=== PATIENT | female | born 1990 | race Caucasian/White ===

== ENCOUNTER 2018-08-11 09:21 | Emergency (ER) | payer OTHER ==
--- OUTSIDE RECORDS SUMMARY | 2018-08-11 09:24 | XMS REPORT | Clinical Summary ---
:1990 Author Organization [facility] Address [address] [place] [address] Care Team Providers Name Role Phone Unavailable Primary Care Provider Unavailable Allergies No Known Allergies Medications Medication Sig Dispensed Refills Start Date End Date Status riboflavin, vitamin B2, Take 400 mg by 30 tablet 0 01/11/2017 Active 400 mg Tab mouth daily. SUMAtriptan (IMITREX) Take 1 tablet (50 9 tablet 0 01/11/2017 Active 50 MG tablet mg total) by mouth every 2 (two) hours as needed (migraine) Do not exceed 200mg in 24 hours.. Active Problems Problem Noted Date Left sided numbness 01/09/2017 Headache(784.0) 01/09/2017 Von Willebrand disease 01/09/2017 Family History Medical History Relation Name Comments Diabetes Mother Hypertension Mother Relation Name Status Comments Mother Social History Tobacco Use Types Packs/Day Years Used Date Current Some Day Smoker 10 Smokeless Tobacco: Current User Snuff Tobacco Cessation: Ready to Quit: Yes; Counseling Given: Yes Alcohol Use Drinks/Week oz/Week Comments No Sex Assigned at Date Recorded Not on file Job Start Date Occupation Industry Not on file Not on file Not on file Travel History Travel Start Travel End No recent travel history available. Last Filed Vital Signs Not on file Plan of Treatment Not on file Results Not on fileafter 08/10/2017 Insurance Payer Benefit Plan / Subscriber ID Type Phone Address Group MEDICAID - MEDICAID MEDICAID COMM xxxxxxxxx Medicaid Contracted [facility] CHO[facility] Advance Directives For more information, please contact:[facility] [id number] [place] [address] [phone] Code Status Date Activated Date Inactivated Comments Full Code 01/09/2017 11:25 PM 01/11/2017 1:21 PM This code status was determined by: Patient
--- OUTSIDE RECORDS SUMMARY | 2018-08-11 09:24 | XMS REPORT ---
:1990 [facility] Address [address] [place] [address] Care Team Providers Name Role Phone ERASMO PENA Unavailable Unavailable Problems This patient has no known problems. Allergies, Adverse Reactions, Alerts This patient has no known allergies or adverse reactions. Medications This patient has no known medications. Results Test Description Test Time Test Comments Text Results Atomic Results Result Comments SCREEN, URINE 2017-01-10 20:01:00 Test Item Value Reference Range Comments TEST URINE (BEAKER) (test xshn=837) Negative [id number] 11:54:00 Test Item Value Reference Range Comments RPR SCREEN (BEAKER) (test ulcg=235) Nonreactive Nonreactive HEMOGLOBIN [id number] 10:47:00 Test Item Value Reference Range Comments HEMOGLOBIN A1C (BEAKER) (test gxvn=280) 5.2 % 4.3-6.1 TSH/FREE T4 IF [id number] 06:03:00 Test Item Value Reference Range Comments THYROID STIMULATING HORMONE (BEAKER) (test 0.97 uIU/mL 0.35-4.94 qzvm=396) VITAMIN B12 AND [id number] 06:03:00 Test Item Value Reference Range Comments VITAMIN B12 (BEAKER) (test rtxg=424) 384 pg/mL 213-816 FOLATE (BEAKER) (test cmyl=167) 11.5 ng/mL >=7.0 Effective 07/13/2014: Folate Reference Range ChangeNew: >=7.0 Previous: & gt;=5.4HIV-1 ANTIGEN WITH HIV-1/2 [id number] 05:29:00 Test Item Value Reference Range Comments HIV-1 ANTIGEN WITH HIV 1\T\2 ANTIBODY (2) Nonreactive Nonreactive (BEAKER) (test cfyy=4687) [id number] 05:18:00 Test Item Value Reference Range Comments D-DIMER QUANTITATIVE (BEAKER) (test wzbo=805) < MG/L FEU <0.50 Intended Use: The D-Dimer Assay can be used to aid in the diagnosis of Deep Vein Thrombosis (DVT) and Pulmonary Embolism Disease (PED).In patients with low pre-test probability, various studies concerning STA Liatest D-dimer test have reported that with a cutoff value of 0.50 MG/L FEU, the Negative Predictive Value (NPV) regarding the exclusion of thrombosis is within 95-100% range.[id number] 05:18:00 Test Item Value Reference Range Comments MAGNESIUM (BEAKER) (test vkjo=702) 2.1 mg/dL 1.6-2.6 LIPID [id number] 05:18:00 Test Item Value Reference Range Comments TRIGLYCERIDES (BEAKER) (test lzoz=888) 128 mg/dL CHOLESTEROL (BEAKER) (test pezr=753) 159 mg/dL HDL CHOLESTEROL (BEAKER) (test fuun=050) 29 mg/dL LDL CHOLESTEROL CALCULATED (BEAKER) (test 104 mg/dL pxrb=492) Triglyceride Reference Range: Low Risk <150 Borderline 150- 199 High Risk 200-499 Very High Risk >=500Cholesterol Reference Range: Low Risk <200 Borderline 200-239 High Risk > 240HDL Cholesterol Reference Range: Low Risk >=60 High Risk <40LDL Cholesterol Reference Range: Optimal <100 Near Optimal 100-129 Borderline 130-159 High 160-189 Very High >=190BASIC METABOLIC [id number] 05:18:00 Test Item Value Reference Range Comments SODIUM (BEAKER) (test 139 meq/L 136-145 jnxj=493) POTASSIUM (BEAKER) (test 3.5 meq/L 3.5-5.1 zjge=260) CHLORIDE (BEAKER) (test 109 meq/L 98-107 upul=001) CO2 (BEAKER) (test 23 meq/L 22-29 rcki=832) BLOOD UREA NITROGEN 13 mg/dL 7-21 (BEAKER) (test adpt=766) CREATININE (BEAKER) (test 0.66 mg/dL 0.57-1.25 rfaj=905) GLUCOSE RANDOM (BEAKER) 94 mg/dL 70-105 (test zjfq=687) CALCIUM (BEAKER) (test 8.3 mg/dL 8.4-10.2 vovn=192) EGFR (BEAKER) (test 109 mL/min/1.73 sq m ESTIMATED GFR IS NOT hjuv=0695) ACCURATE CREATININE CLEARANCE IN PREDICTING GLOMERULAR FILTRATION RATE. ESTIMATED GFR IS NOT APPLICABLE FOR DIALYSIS PATIENTS. CBC W/PLT COUNT & AUTO [id number] 05:09:00 Test Item Value Reference Range Comments WHITE BLOOD CELL COUNT (BEAKER) (test moyi=944) 9.8 K/ L 4.0-10.0 RED BLOOD CELL COUNT (BEAKER) (test suac=021) 4.39 M/ L 4.00-5.00 HEMOGLOBIN (BEAKER) (test wogl=041) 13.0 GM/DL 12.0-15.0 HEMATOCRIT (BEAKER) (test mbzy=281) 39.9 % 36.0-45.0 MEAN CORPUSCULAR VOLUME (BEAKER) (test aolb=986) 91.0 fL 82.0-99.0 MEAN CORPUSCULAR HEMOGLOBIN (BEAKER) (test 29.7 pg 27.0-33.0 ujvv=122) MEAN CORPUSCULAR HEMOGLOBIN CONC (BEAKER) (test 32.6 GM/DL 32.0-36.0 geip=144) RED CELL DISTRIBUTION WIDTH (BEAKER) (test 13.0 % 10.3-14.2 khwr=371) PLATELET COUNT (BEAKER) (test ylpj=669) 207 K/CU MM 150-430 MEAN PLATELET VOLUME (BEAKER) (test lzkk=455) 9.1 fL 6.5-10.5 NUCLEATED RED BLOOD CELLS (BEAKER) (test 0 /100 WBC 0-0 bpfp=059) NEUTROPHILS RELATIVE PERCENT (BEAKER) (test 60 % uziq=743) LYMPHOCYTES RELATIVE PERCENT (BEAKER) (test 29 % gjbn=338) MONOCYTES RELATIVE PERCENT (BEAKER) (test 8 % ryap=896) EOSINOPHILS RELATIVE PERCENT (BEAKER) (test 2 % ddqv=992) BASOPHILS RELATIVE PERCENT (BEAKER) (test 0 % cvbw=104) NEUTROPHILS ABSOLUTE COUNT (BEAKER) (test 5.88 K/ L 1.80-8.00 hmcy=197) LYMPHOCYTES ABSOLUTE COUNT (BEAKER) (test 2.89 K/ L 1.48-4.50 eyvs=443) MONOCYTES ABSOLUTE COUNT (BEAKER) (test 0.80 K/ L 0.00-1.30 hcyv=683) EOSINOPHILS ABSOLUTE COUNT (BEAKER) (test 0.20 K/ L 0.00-0.50 zfyn=860) BASOPHILS ABSOLUTE COUNT (BEAKER) (test 0.05 K/ L 0.00-0.20 sctj=019) 0.00
[2018-08-11] MEDS ORDERED: NA CHLORIDE 0.9% 1,000 ML ONE (10:15)
[2018-08-11 10:28] LABS: Urine Appearance TURBID; Urine Blood 3+ (NEG); Urine Color RED; Urine Glucose NEGATIVE (NEG); Urine Protein 3+ (NEG); Urine Specific Gravity >=1.030 (1.005-1.030)
[2018-08-11 10:30] LABS: Specific Gravity > 1.030 (1.005-1.030)
[2018-08-11] MEDS ORDERED: ONDANSETRON 4 MG/2 ML VIAL ONE (10:36)
[2018-08-11 10:39] LABS: Urine Bilirubin NEGATIVE (NEG); Urine Microscopic Reflex ORDER UMIC
[2018-08-11 10:42] LABS: Absolute Monocytes 0.5 K/uL (0.1-1.3); Absolute Neutrophil 4.9 K/uL (1.8-8.0); Basophils % 0.6 % (0-1.3); Eosinophils % 1.5 % (0-4.4); Hematocrit 42.4 % (36.0-45.0); Lymphocytes % 26.6 % (15.3-44.8); MCH 30.8 pg (27.0-35.0); MCV 89.9 fL (80-100); MPV 10.5 fL (7.6-11.3); Monocytes % 7.1 % (3.3-12.3); RBC Red Blood Cell Count 4.72 M/uL (3.86-4.86)
[2018-08-11 10:45] LABS: Urine Bacteria 20-50 /HPF (<20); Urine Culture Reflex Order REFLEXED; Urine RBC TNTC /HPF (NONE SEEN)
[2018-08-11 10:58] LABS: BUN Blood Urea Nitrogen 11 mg/dL (7-18); Bicarbonate 25 mmol/L (21-32); Glucose Level 105 mg/dL (74-106); Potassium 3.3 mmol/L (3.5-5.1); Sodium Level 139 mmol/L (136-145)
[2018-08-11 10:59] LABS: HCG, Quantitative < 1 mIU/mL (1-3)
[2018-08-11] MEDS ORDERED: CEFTRIAXONE/SWI 1gm 1 GM/10 ML SYR ONE (11:26)
[2018-08-11] MEDS ORDERED: MORPHINE 4 MG/ML SYR ONE (11:26)
--- NOTE | 2018-08-11 11:32 | RAD REPORT ---
EXAM DESCRIPTION: US - Transvaginal Study Probe - 08/11/2018 10:51 am CLINICAL HISTORY: Abdominal pain, pelvic pain, vaginal bleeding, right lower quadrant pain COMPARISON: None. TECHNIQUE: Endovaginal sonography was performed. FINDINGS: Endometrium is 3 mm in thickness. Endometrium-myometrium interface is normal. No endometri al mass, polyp or suspicious finding noted. There are no myometrial masses. Uterus is 7.7 x 4.5 x 5.3 cm. Both ovaries are identifiable and normal in size. Doppler evaluation shows normal ovarian stroma blood flow. No dominant solid or cystic ovarian or adnexal finding. No blood or fluid in the cul de sac. IMPRESSION: Negative endovaginal pelvic ultrasound.
[2018-08-11] MEDS ORDERED: POTASSIUM 25 MEQ EFFERV TAB ONE (11:45)
--- NOTE | 2018-08-11 11:55 | RAD REPORT ---
EXAM DESCRIPTION: CT - Abdomen Pelvis W Contrast - 08/11/2018 11:42 am CLINICAL HISTORY: Right lower quadrant pain, nausea and vomiting, vaginal bleeding history, prior to nsillectomy and appendectomy COMPARISON: None. TECHNIQUE: Biphasic, helical CT imaging of the abdomen and pelvis was performed following 100 ml non -ionic IV contrast. No oral contrast. All CT scans are performed using dose optimization technique as appropriate and may include automated exposure control or mA/KV adjustment according to patient size. FINDINGS: No suspicious findings in the lung bases. The liver, spleen, and pancreas show no suspicious findings. Gallbladder and biliary tree are also wi thout suspicious finding. Symmetric renal function is seen with no hydronephrosis or suspicious renal mass. No pyelonephritis o r acute parenchymal process. No bladder abnormalities. No adrenal abnormalities. No dilated bowel loops or bowel wall thickening. No free air, free fluid or inflammatory stranding. No hernia, mass or bulky lymphadenopathy. Uterus and ovaries show no suspicious findings. No suspicious bony findings. IMPRESSION: Contrast enhanced CT abdomen and pelvis showing no significant or suspicious finding.
--- NOTE | 2018-08-11 12:38 | ER ---
Nurse's Notes [facility] Department Name: Lauren Polanco Age: 28 yrs Sex: Female : 1990 Arrival Date: 08/11/2018 Time: 09:24 Bed 2 Private MD: Diagnosis: Pelvic and perineal pain;Dysmenorrhea, unspecified;Hypokalemia;Cystitis Presentation: 08/11 09:34 Presenting complaint: Presenting complaint: Patient states: vaginal bleeding that began aa5 Saturday and RLQ pain. Pt also reports nausea and vomiting. Transition of care: patient was not received from another setting of care. Onset of symptoms was July 2018. Risk Assessment: Do you want to hurt yourself or someone else? Patient reports no desire to harm self or others. Initial Sepsis Screen: Does the patient meet any 2 criteria? No. Patient's initial sepsis screen is negative. Does the patient have a suspected source of infection? No. Patient's initial sepsis screen is negative. Care prior to arrival: None. 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 - Social history:: Smoking status: Patient uses tobacco products, denies chronic smoking, but will smoke occasionally. - Ebola Screening: : No symptoms or risks identified at this time. - Family history:: not pertinent. Screenin:15 Abuse screen: Denies threats or abuse. Denies injuries from another. Nutritional sg screening: No deficits noted. Tuberculosis screening: No symptoms or risk factors identified. Never had TB. Fall Risk None identified. Assessment: 10:15 General: Appears in no apparent distress. ill, well groomed, well developed, well sg nourished, Behavior is calm, cooperative, appropriate for age. Pain: Complains of pain in right mid back and right low back Quality of pain is described as burning, sharp, stabbing. Neuro: No deficits noted. Cardiovascular: Capillary refill is brisk in bilateral fingers Patient's skin is warm and dry. Chest pain is denied. Respiratory: Airway is patent Respiratory effort is even, unlabored, Respiratory pattern is regular, symmetrical. GI: Abdomen is round non-distended, Reports nausea, vomiting. : Reports pain in right flank(s), in lower back vaginal bleeding that is bright red, moderate flow. :. EENT: No signs and/or symptoms were reported regarding the EENT system. Derm: Skin is pink, warm \T\ dry. Musculoskeletal: No signs and/or symptoms reported regarding the musculoskeletal system. Vital Signs: 09:35 BP 122 / 82; Pulse 66; Resp 18 S; Temp 98.8(O); Pulse Ox 100% on R/A; Weight 77.11 kg aa5 (R); Height 5 ft. 1 in. (154.94 cm) (R); Pain 7/10; 11:33 BP 114 / 72; Pulse 57; Resp 16; Temp 98.8; Pulse Ox 100% ; lt1 09:35 Body Mass Index 32.12 (77.11 kg, 154.94 cm) aa5 ED Course: 09:24 Patient arrived in ED. mr 09:34 Arm band placed on. aa5 09:35 Triage completed. aa5 09:53 Iqra Thomas, ZOË is Primary Nurse. jl7 09:56 Abelardo Conrad MD is Attending Physician. tom 10:15 Missed attempt(s): 20 gauge in left antecubital area. Bleeding controlled, band aid sg applied, catheter tip intact. 10:20 Inserted saline lock: 22 gauge in left antecubital area, using aseptic technique. Blood sg collected. 10:51 Ultrasound completed. Patient tolerated well. Patient moved back from ultrasound. aa4 10:52 US Transvaginal Study (Probe) In Process Unspecified. EDMS 11:42 CT Abd/Pelvis - W/Contrast: iv only In Process Unspecified. EDMS 11:47 CT completed. Patient tolerated procedure well. Patient moved back from CT. mw3 12:36 Robin Reis MD is Referral Physician. tom Administered Medications: 10:35 Drug: NS 0.9% 1000 ml Route: IV; Rate: 1 bolus; Site: left antecubital; sg 10:35 Drug: Zofran 4 mg Route: IVP; Site: left antecubital; sg 11:12 Not Given (Other Intervention Used): Rocephin - (cefTRIAXone) 1 grams IVPB once over 30 sg mins; (mix in 50 mL NS) 11:25 Drug: morphine 4 mg Route: IVP; Site: left antecubital; sg 11:27 Drug: Rocephin 1 grams Route: IV; Rate: calculated rate; Site: left antecubital; sg 11:43 Drug: Potassium Effervescent Tablet 25 mEq Route: PO; sg 13:02 Drug: Cipro 500 mg Route: PO; sg Outcome: 12:37 Discharge ordered by MD. santos 13:30 Patient left the ED. jl7 Signatures: Dispatcher [employer] EDMS Caesar Armijo RN RN Abelardo Hess MD MD cha Rivera Yvonne Yoder, Madhuri aa4 Kelin Lizarraga RN RN aa5 Iqra Thomas RN RN jl7 Mimi Ortiz 3 Valerie Ellington 1 Corrections: (The following items were deleted from the chart) 09:35 09:35 Social history: Smoking status: Patient/guardian denies using tobacco, aa5 aa5
--- NOTE | 2018-08-11 12:38 | EDPHYS ---
Physician Documentation [facility] Name: Lauren Polanco Age: 28 yrs Sex: Female : 1990 Arrival Date: 08/11/2018 Time: 09:24 Bed 2 Private MD: ED Physician Abelardo Conrad HPI: 08/11 10:03 This 28 yrs old Female presents to ER via Ambulatory with complaints of tom Vaginal Bleeding, Vomiting. 10:03 The patient presents with pelvic pain, that is located in/on the suprapubic area and tom right inguinal area, vaginal bleeding that is light, moderate. Onset: The symptoms/episode began/occurred 1 week(s) ago. Modifying factors: The symptoms are alleviated by nothing, the symptoms are aggravated by movement, pressure, walking. Associated signs and symptoms: The patient has no apparent associated signs or symptoms. Severity of symptoms: At their worst the symptoms were mild, moderate, in the emergency department the symptoms are unchanged. The patient is sexually active, reportedly has a single partner. The patient has not experienced similar symptoms in the past. 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 - Social history:: Smoking status: Patient uses tobacco products, denies chronic smoking, but will smoke occasionally. - Ebola Screening: : No symptoms or risks identified at this time. - Family history:: not pertinent. ROS: 10:03 Constitutional: Negative for fever, chills, and weight loss, Eyes: Negative for injury, tom pain, redness, and discharge, ENT: Negative for injury, pain, and discharge, Neck: Negative for injury, pain, and swelling, Cardiovascular: Negative for chest pain, palpitations, and edema, Respiratory: Negative for shortness of breath, cough, wheezing, and pleuritic chest pain, Back: Negative for injury and pain, : Negative for injury, bleeding, discharge, and swelling, MS/Extremity: Negative for injury and deformity, Skin: Negative for injury, rash, and discoloration, Neuro: Negative for headache, weakness, numbness, tingling, and seizure, Psych: Negative for depression, anxiety, suicide ideation, homicidal ideation, and hallucinations, Allergy/Immunology: Negative for hives, rash, and allergies, Endocrine: Negative for neck swelling, polydipsia, polyuria, polyphagia, and marked weight changes, Hematologic/Lymphatic: Negative for swollen nodes, abnormal bleeding, and unusual bruising. 10:03 Abdomen/GI: Positive for abdominal pain, abdominal cramps, of the suprapubic area. Exam: 10:03 Constitutional: This is a well developed, well nourished patient who is awake, alert, tom and in no acute distress. Head/Face: Normocephalic, atraumatic. Eyes: Pupils equal round and reactive to light, extra-ocular motions intact. Lids and lashes normal. Conjunctiva and sclera are non-icteric and not injected. Cornea within normal limits. Periorbital areas with no swelling, redness, or edema. ENT: Nares patent. No nasal discharge, no septal abnormalities noted. Tympanic membranes are normal and external auditory canals are clear. Oropharynx with no redness, swelling, or masses, exudates, or evidence of obstruction, uvula midline. Mucous membranes moist. Neck: Trachea midline, no thyromegaly or masses palpated, and no cervical lymphadenopathy. Supple, full range of motion without nuchal rigidity, or vertebral point tenderness. No Meningismus. Chest/axilla: Normal chest wall appearance and motion. Nontender with no deformity. No lesions are appreciated. Cardiovascular: Regular rate and rhythm with a normal S1 and S2. No gallops, murmurs, or rubs. Normal PMI, no JVD. No pulse deficits. Respiratory: Lungs have equal breath sounds bilaterally, clear to auscultation and percussion. No rales, rhonchi or wheezes noted. No increased work of breathing, no retractions or nasal flaring. Abdomen/GI: Soft, non-tender, with normal bowel sounds. No distension or tympany. No guarding or rebound. No evidence of tenderness throughout. Back: No spinal tenderness. No costovertebral tenderness. Full range of motion. Skin: Warm, dry with normal turgor. Normal color with no rashes, no lesions, and no evidence of cellulitis. MS/ Extremity: Pulses equal, no cyanosis. Neurovascular intact. Full, normal range of motion. Neuro: Awake and alert, GCS 15, oriented to person, place, time, and situation. Cranial nerves II-XII grossly intact. Motor strength 5/5 in all extremities. Sensory grossly intact. Cerebellar exam normal. Normal gait. 10:03 : CVA tenderness, is absent, Pelvic Exam: is not necessary for this patient. Vital Signs: 09:35 BP 122 / 82; Pulse 66; Resp 18 S; Temp 98.8(O); Pulse Ox 100% on R/A; Weight 77.11 kg aa5 (R); Height 5 ft. 1 in. (154.94 cm) (R); Pain 7/10; 11:33 BP 114 / 72; Pulse 57; Resp 16; Temp 98.8; Pulse Ox 100% ; lt1 09:35 Body Mass Index 32.12 (77.11 kg, 154.94 cm) aa5 MDM: 09:56 Patient medically screened. [facility] 10:08 Data reviewed: vital signs, nurses notes, lab test result(s), radiologic studies, [facility] ultrasound. 08/11 10:01 Order name: UA; Complete Time: 11:08 [facility] 08/11 10:02 Order name: Quantitative Hcg; Complete Time: 11:08 [facility] 08/11 10:02 Order name: Abo/rh Typing; Complete Time: 12:35 [facility] 08/11 10:02 Order name: Basic Metabolic Panel; Complete Time: 11:08 [facility] 08/11 10:02 Order name: CBC with Diff; Complete Time: 11:08 [facility] 08/11 10:02 Order name: Urine Culture [facility] 08/11 10:02 Order name: US Transvaginal Study (Probe); Complete Time: 12:35 [facility] 08/11 10:11 Order name: Test, Urine; Complete Time: 11:08 [facility] 08/11 10:46 Order name: Urine Microscopic Only; Complete Time: 11:08 [facility] 08/11 11:22 Order name: CT Abd/Pelvis - W/Contrast: iv only; Complete Time: 12:35 [facility] 08/11 10:02 Order name: Urine Test (obtain specimen); Complete Time: 10:33 [facility] 08/11 10:02 Order name: IV Saline Lock; Complete Time: 10:25 [facility] 08/11 10:02 Order name: Labs collected and sent; Complete Time: 10:25 [facility] 08/11 10:02 Order name: NPO; Complete Time: 10:26 [facility] 08/11 10:02 Order name: Urine Dipstick-Ancillary (obtain specimen); Complete Time: 10:43 [facility] 08/11 10:03 Order name: Urine Test (obtain specimen); Complete Time: 10:33 jl7 Administered Medications: 10:35 Drug: NS 0.9% 1000 ml Route: IV; Rate: 1 bolus; Site: left antecubital; sg 10:35 Drug: Zofran 4 mg Route: IVP; Site: left antecubital; sg 11:12 Not Given (Other Intervention Used): Rocephin - (cefTRIAXone) 1 grams IVPB once over 30 sg mins; (mix in 50 mL NS) 11:25 Drug: morphine 4 mg Route: IVP; Site: left antecubital; sg 11:27 Drug: Rocephin 1 grams Route: IV; Rate: calculated rate; Site: left antecubital; sg 11:43 Drug: Potassium Effervescent Tablet 25 mEq Route: PO; sg 13:02 Drug: Cipro 500 mg Route: PO; sg Disposition: 08/11/18 12:37 Discharged to Home. Impression: Pelvic and perineal pain, Dysmenorrhea, unspecified, Hypokalemia, Cystitis. - Condition is Stable. - Discharge Instructions: Potassium Content of Foods, Dysmenorrhea, Pelvic Pain, Female, Urinary Tract Infection, Adult, Pelvic Pain, Female, Fytf-mk-Xyfd, Urinary Tract Infection, Adult, Epbw-rn-Sdou, Dysmenorrhea, Wqyu-wt-Lbzf, Hypokalemia. - Prescriptions for Tylenol- Codeine #3 300-30 mg Oral Tablet - take 2 tablet by ORAL route every 6 hours As needed; 30 tablet. Cipro 500 mg Oral Tablet - take 1 tablet by ORAL route every 12 hours for 7 days; 14 tablet. - Work release form, Medication Reconciliation Form, Thank You Letter, Antibiotic Education, Prescription Opioid Use form. - Follow up: Private Physician; When: 2 - 3 days; Reason: Recheck today's complaints, Continuance of care, Re-evaluation by your physician. Follow up: Rboin Reis; When: 2 - 3 days; Reason: Recheck today's complaints, Re-evaluation by your physician. - Problem is new. - Symptoms have improved. Signatures: Dispatcher [employer] [facility] Caesar Armijo, RN Abelardo Cruz MD MD cha Calderon, Audri RN RN aa5 Iqra Thomas RN RN jl7 Corrections: (The following items were deleted from the chart) 09:35 09:35 Social history: Smoking status: Patient/guardian denies using tobacco, aa5 aa5 11:27 11:20 Stone Protocol+CT.RAD.BRZ ordered. [facility] EDLA 13:30 12:37 08/11/2018 12:37 Discharged to Home. Impression: Pelvic and perineal pain; jl7 Dysmenorrhea, unspecified; Hypokalemia; Cystitis. Condition is Stable. Discharge Instructions: Dysmenorrhea, Pelvic Pain, Female, Urinary Tract Infection, Adult, Pelvic Pain, Female, Vzdb-je-Zdrq, Urinary Tract Infection, Adult, Kgbj-ko-Llvo, Dysmenorrhea, Mwqj-jh-Knsw, Hypokalemia, Potassium Content of Foods. Prescriptions for Tylenol-Codeine #3 300-30 mg Oral Tablet - take 2 tablet by ORAL route every 6 hours As needed; 30 tablet, Cipro 500 mg Oral Tablet - take 1 tablet by ORAL route every 12 hours for 7 days; 14 tablet. and Forms are Medication Reconciliation Form, Thank You Letter, Antibiotic Education, Prescription Opioid Use. Follow up: Private Physician; When: 2 - 3 days; Reason: Recheck today's complaints, Continuance of care, Re-evaluation by your physician. Follow up: Robin Reis; When: 2 - 3 days; Reason: Recheck today's complaints, Re-evaluation by your physician. Problem is new. Symptoms have improved. tom
[2018-08-11] MEDS ORDERED: CIPROFLOXACIN HCL 500 MG TAB ONE (13:06)
[2018-08-11 13:53] VITALS: TEMP 98.8; O2SAT 100
[2018-08-11 13:55] VITALS: BP 114/72
== END 2018-08-11 13:30 | disposition home or self-care (01) ==
LOC: ER 09:21
DX: N94.6 Dysmenorrhea, unspecified (principal); N30.90 Cystitis, unspecified without hematuria; E87.6 Hypokalemia; Z72.0 Tobacco use
CPT/HCPCS: 36415; 74177; 76830; 80048; 81003; 81015; 81025; 84702; 85025; 86900; 86901; 87086; 87088; 96374; 96375; 99284; J0696; J2405; J7030; Q9967

== ENCOUNTER 2018-11-02 11:43 | Emergency (ER) | payer OTHER ==
--- OUTSIDE RECORDS SUMMARY | 2018-11-02 11:45 | XMS REPORT | Clinical Summary ---
:1990 Author Organization [facility] [employer] [facility] Address [address] [place] [address] Care Team Providers Name Role Phone Unavailable [...] Not on file Results Not on fileafter 11/01/2017 Insurance Payer Benefit Plan / Subscriber ID Type Phone Address Group MEDICAID - MEDICAID MEDICAID COMM xxxxxxxxx Medicaid Contracted [facility] Advance Directives For more information, please contact:[facility] [employer] [id number] [place] [address] [phone] Code Status Date Activated Date Inactivated Comments Full Code 01/09/2017 11:25 PM 01/11/2017 1:21 PM This code status was determined by: Patient
--- OUTSIDE RECORDS SUMMARY | 2018-11-02 11:48 | XMS REPORT | Continuity of Care Document ---
:1990 Author Organization Interface Problems Problem Status Onset Classification Date Comments Source Date Reported 36WEEKS , Active [facility] PAINS, 7 Medical SPOTTING Center Discharge 08/05/2017 [facility] Diagnosis: 7 Medical Center 32WKS/SYNCOPE Active [place] [address] Medical Center Active Problem 08/26/[address] Center VAG DISCHG Active [address] Center CTX'S Active [address] Center CX Active [address] VAGINAL Active [facility] DELIVERY [address] [place] [address] LEAKING FLUID Active [address] Asthma Active Problem 08/26/2017 [facility] Chlamydia Resolved Problem 08/26/2017 [facility] Von [place] Active Problem 08/26/2017 [facility] disease [facility] Bipolar 1 Resolved Problem 08/26/2017 [place] [facility] Premature Active Problem 08/26/2017 [facility] labor [facility] Active [facility] RELATED Medical CONDITIONS, Center UNSP, UNSP LABOR Active [facility] WITH Medical DELIVERY, [facility] Center Medications Medication Details Route Status Patient Ordering Order Source Instructions Provider Date multivitamin, 1 tab, Route: No Longer [facility] PO, Drug Form: Active 2017 Medical TAB, Dosing Center Weight 88.182, kg, Daily, Start date: 08/24/17 9:00:00 [employer], Duration: 30 day, Stop date: 09/22/17 9:00:00 [employer] Cholecalciferol PO, Daily, 0 Active 08/24/ [facility] 400 UNT / Folic Refill(s) 2017 Medical Acid 1 MG / Center pyridoxine 2 MG / Riboflavin 1.7 MG / Vitamin B 12 0.008 MG Chewable Tablet penicillin G 2,500,000 unit, Inactive [facility] potassium 50 mL, Route: 2016 [facility] IVPB, Drug Center form: INJ, ABXQ4H, Dosing Weight 88.182, kg, Start date: 08/23/17 10:30:00 [employer], Duration: 30 day, Stop date: 09/22/17 6:30:00 [employer] antihemophilic 1,399 unit, Inactive [facility] factor-von Route: IV, Drug 2016 Medical Willebrand factor form: INJ, Center ONCALL, Start date: 08/23/17 8:00:00 [employer], Duration: 30 day, Stop date: 09/22/17 7:59:00 CSTNotes: Note - 100 AHF pnudo=[id number] RCOF units. Call 2 Hours Ahead for the next dose Penicillin G 2,500,000 unit, Inactive [facility] 50 mL, Route: 2016 Medical IVPB, Drug Center form: INJ, ABXQ4H, Dosing Weight 88.182, kg, Start date: 08/23/17 5:00:00 [employer], Duration: 30 day, Stop date: 09/22/17 1:00:00 [employer] Fentanyl 600 microgram, Inactive [facility] 30 mL, Route: 2016 Medical IV, SYSTEMS CHECKOUT MECHANIC Dose: [place] 10 mcg, SYSTEMS CHECK[employer] MECHANIC Lockout: 10 minutes, Continuous Basal Rate: 0 mg, 4 Hour Limit (In MCG): 240, Drug Form: INJ, Continuous, Start date: 08/23/17 4:34:00 [employer], Duration: 30 day, Stop date: 09/22/17 4:33:00 CSTNotes: Concentration is 20 micrograms/ml Naloxone 0.04 mg, 0.1 Inactive [facility] mL, Route: IVP, 2016 Medical Drug form: INJ, Center Q2MIN, Dosing Weight 88.182, kg, PRN Narcotic Reversal, Start date: 08/23/17 4:34:00 [employer], Duration: 30 day, Stop date: 09/22/17 4:33:00 CSTNotes: Same as Narcan Carboprost 250 microgram, Inactive [facility] 1 mL, Route: 2016 Medical IM, Drug form: Center INJ, ONCALL, Dosing Weight 88.182, kg, Start date: 08/23/17 1:00:00 [employer], Duration: 30 day, Stop date: 09/22/17 0:59:00 CSTNotes: (Same As: Hemabate) Famotidine 20 mg, 2 mL, Inactive [facility] Route: IVP, 2016 Medical Drug form: INJ, Center ONCALL, Dosing Weight 88.182, kg, Start date: 08/23/17 1:00:00 [employer], Duration: 30 day, Stop date: 09/22/17 0:59:00 CSTNotes: (Same as: Pepcid) Can be dilute in 5-10cc NS IVP: Slow IV push over at least 2 minutes. Methylergonovine 0.2 mg, 1 mL, Inactive [place] Route: IM, Drug 2016 Medical form: INJ, Center ONCALL, Dosing Weight 88.182, kg, Start date: 08/23/17 1:00:00 [employer]CH[employer]IC, Duration: 30 day, Stop date: 09/22/17 0:59:00 CSTNotes: (Same as:Methergine) Citric Acid / 30 mL, Route: Inactive [place] sodium citrate PO, Drug Form: 2016 Medical SOLN, Dosing Center Weight 88.182, kg, ONCALL, Start date: 08/23/17 1:00:00 [employer]CH[employer]IC, Duration: 30 day, Stop date: 09/22/17 0:59:00 CSTNotes: (Same As: Bicitra, Cytra-2) Sodium citrate-citric acid (500-334 mg/5 mL): 1 mL contains sodium 1 mEq/mL and bicarbonate 1 mEq/mL Misoprostol 1,000 Inactive [place] microgram, 5 2017 Medical tab, Route: [place], Center Drug form: TABDESIALL, Dosing Weight 88.182, kg, Start date: 08/23/17 1:00:00 HE[employer]CH[employer]IC, Duration: 1 doses or timesNotes: (Same as:Cytotec) Take with food Penicillin G 5,000,000 unit, Inactive [place] Potassium [id number] Route: IVPB, 2017 Medical UNT/ML Injectable Drug form: [place] Solution PDR/INJ, ONCALL, Dosing Weight 88.182, kg, Start date: 08/23/17 1:00:00 [employer], Duration: 30 day, Stop date: 09/22/17 0:59:00 CSTNotes: (Same as: Pfizerpen) MEDICATION WASTE Product Size: 5,000,000 unit Product Wasted: ___ unit Ondansetron 4 mg, 2 mL, Inactive [place] Route: IVP, 2017 Medical Drug form: INJ, Center Q8H, Dosing Weight 88.182, kg, PRN Nausea & Vomiting, Start date: 08/23/17 0:04:00 [employer], Duration: 30 day, Stop date: 09/22/17 0:03:00 CSTNotes: (Same as: Zofran) MEDICATION WASTE Product Size: 4 mg Product Wasted: ___ mg Terbutaline 0.25 mg, 0.25 Inactive [place] mL, Route: 2017 Medical SUB-Q, Drug Center form: INJ, PRN, Dosing Weight 88.182, kg, PRN Other -See Comment, Start date: 08/23/17 0:04:00 [employer]CH[employer]IC, Duration: 1 doses or times, Stop date: Limited # of timesNotes: DO NOT USE IN PHARMACY AIDE AREA (Same As: Brethine) Lidocaine 200 mg, 20 mL, Inactive [facility] Hydrochloride 10 Route: PERCUT, 2017 Medical MG/ML Injectable Drug Form: INJ, Center Solution Dosing Weight 88.182, kg, PRN, PRN Other -See Comment, Start date: 08/23/17 0:04:00 [employer], Duration: 1 doses or times, Stop date: Limited # of timesNotes: (Same as: Xylocaine) Ibuprofen 600 mg, 1 tab, Inactive [place] Route: PO, Drug 2016 Medical form: TAB, Q6H, Center Dosing Weight 88.182, kg, PRN Other -See Comment, Start date: 08/23/17 0:04:00 [employer]IC, Duration: 30 day, Stop date: 09/22/17 0:03:00 CSTNotes: (Same as: Motrin) "Do Not Crush" Take with food. Oxytocin 30 unit, 500 Inactive [facility] mL, Rate: 42 2017 Medical ml/hr, Infuse Center over: 11.9 hr, Dosing Weight 88.182, kg, Route: IV, Total Volume: 500 mL, Start date: 08/23/17 0:04:00 [employer], Duration: 2 day, Stop date: 08/25/17 0:03:00 [employer]IC, Replace Every: 11.9 hr Calcium Chloride 1,000 mL, 1,000 Inactive [facility] 0.0014 MEQ/ML / ml/hr, Infuse 2017 Medical Potassium Chloride Over: 1 hr, Center 0.004 MEQ/ML / Route: IV, Sodium Chloride 1,000, Drug 0.103 MEQ/ML / form: INJ, Sodium Lactate ONCE, Dosing 0.028 MEQ/ML Weight 88.182 Injectable kg, Start date: Solution 08/23/17 0:04:00 [employer]CH[employer]IC, Stop date: 08/23/17 0:04:00 [employer] MECH[employer]IC, Bolus for regional anesthesia per unit protocol Lactated Ringers 1,000 mL, Rate: Inactive [place] IV 1,000 mL 125 ml/hr, 2017 Medical Infuse over: 8 Center hr, Route: IV, Dosing Weight 88.182 kg, Total Volume: 1,000, Start date: 08/23/17 0:04:00 [employer]CH[employer]IC, Duration: 30 day, Stop date: 09/22/17 0:03:00 [employer]IC, 1.98, m2 0 Refill(s) Active [facility] Multivitamins with 2017 Medical Folic Acid 0.8 mg Center oral kit Nitrofurantoin 100 100 mg=1 cap, Active [place] MG Oral Capsule PO, BID, X 7 2016 Medical [Macrobid] day, # 14 cap, Center 0 Refill(s) Depo-Provera 150 mg, 1 mL, Inactive [facility] Route: IM, Drug 2015 Medical form: INJ, Center ONCE, Dosing Weight 87.727, kg, Start date: 12/06/15 6:19:00 CDT, Stop date: 12/06/15 6:19:00 CDTNotes: (Same as: Depo-Provera) This is NOT Depo-SubQ Provera 104 For IM use only MEDICATION WASTE Product Size: 150 mg Product Wasted: ___ mg ferrous sulfate 325 mg=1 tab, Active [place] 325 mg oral PO, Daily, # 30 2016 Medical enteric coated tab, 0 Center tablet Refill(s) docusate sodium 100 mg=1 cap, Active [place] 100 mg oral PO, BID, PRN 2016 Medical capsule Constipation, # Center 30 cap, 1 Refill(s) ibuprofen 800 mg 800 mg=1 tab, Active [place] oral tablet PO, Q8H, PRN 2016 Medical Pain Score Center 7-10, # 30 tab, 0 Refill(s) 1 tab, Route: No Longer [place] Multivitamins oral PO, Drug Form: Active 2016 Medical tablet TAB, Dosing Center Weight 87.727, kg, Daily, Start date: 12/05/15 9:00:00 CDT, Duration: 30 day, Stop date: 01/03/16 9:00:00 CDT Acetaminophen 300 1 tab, Route: No Longer [place] MG / Codeine PO, Drug Form: Active 2015 Medical Phosphate 30 MG TAB, Dosing Center Oral Tablet Weight 87.727, [Tylenol with kg, Q4H, PRN Codeine #3] Pain Score 1-3, Start date: 12/05/15 1:40:00 CDT, Duration: 30 day, Stop date: 01/04/16 1:39:00 CDTNotes: Do not exceed 4gm/day of acetaminophen. (Same as: Tylenol with Codeine # 3) tramadol 50 mg, Route: Inactive [place] hydrochloride 50 PO, Drug form: 2015 Medical MG Oral Tablet TAB, Q6H, Center Dosing Weight 87.727, kg, PRN Pain Score 1-3, Start date: 12/05/15 1:38:00 CDT, Duration: 30 day, Stop date: 01/04/16 1:37:00 CDT diphtheria/pertuss 0.5 mL, Route: No Longer [place] is, acel/tetanus IM, Drug Form: Active 2015 Medical adult SUSP, Dosing Center Weight 87.727, kg, ONCALL, Start date: 12/04/15 17:00:00 CDT, Duration: 1 doses or timesNotes: (Tdap ) For Adolecent and Adult use For IM Use. Same as: Adacel (Tdap) M-M-R II 0.5 mL, Route: No Longer [place] SUB-Q, Drug Active 2015 Medical Form: PDR/INJ, Center Dosing Weight 87.727, kg, ONCALL, Give only if patient rubella non-immune, Start date: 12/04/15 17:00:00 CDT, Duration: 1 doses or timesNotes: (Same as: M-M-R II) (measles-mumps- rubella virus vaccine 0.5 ml INJ VL) WASTE: F/P - Red; E -Red GIVE PRIOR TO DISCHARGE Ibuprofen 600 mg, 1 tab, No Longer [place] Route: PO, Drug Active 2015 Medical form: TAB, Q6H, Center Dosing Weight 87.727, kg, PRN Pain Score 4-6, Start date: 12/04/15 16:36:00 CDT, Duration: 30 day, Stop date: 01/03/16 16:35:00 CDTNotes: (Same as: Motrin) "Do Not Crush" Take with food. Acetaminophen 650 mg, 2 tab, No Longer [place] Route: PO, Drug Active 2015 Medical form: TAB, Q4H, Center Dosing Weight 87.727, kg, PRN Pain Score 1-3, Start date: 12/04/15 16:36:00 CDT, Duration: 30 day, Stop date: 01/03/16 16:35:00 CDTNotes: Do not exceed 4 gm/day. (Same as: Tylenol) Bisacodyl 10 mg, 1 supp, No Longer [place] Route: [place], Drug Active 2015 Medical form: SUPP, Center PRN, Dosing Weight 87.727, kg, PRN Other -See Comment, Start date: 12/04/15 16:36:00 CDT, Duration: 30 day, Stop date: 01/03/16 16:35:00 CDTNotes: (Same As: Dulcolax, [place]isco-Lax) lanolin topical 1 appl, Route: No Longer [place] TOP, PRN, Drug Active 2015 Medical form: OINT, PRN Center Other -See Comment, Start date: 12/04/15 16:36:00 CDT, Duration: 30 day, Stop date: 01/03/16 16:35:00 CDTNotes: (Same as:Lanolin) zolpidem 5 mg, 1 tab, No Longer [facility] Route: PO, Drug Active 2015 Medical form: TAB, Center Bedtime, Dosing Weight 87.727, kg, PRN Sleep, Start date: 12/04/15 16:36:00 CDT, Duration: 30 day, Stop date: 01/03/16 16:35:00 CDTNotes: (Same As: Ambien) Methylergonovine 0.2 mg, 1 mL, No Longer [place] Route: IM, Drug Active 2015 Medical form: INJ, PRN, Center Dosing Weight 87.727, kg, PRN Other -See Comment, Start date: 12/04/15 16:36:00 CDT, Duration: 30 day, Stop date: 01/03/16 16:35:00 CDTNotes: (Same as:Methergine) Benzocaine 200 1 spray, Route: No Longer [place] MG/ML Topical TOP, PRN, Drug Active 2015 Medical [place] [Dermoplast] form: SPRY, PRN Center Irritation, Start date: 12/04/15 16:36:00 CDT, Duration: 30 day, Stop date: 01/03/16 16:35:00 CDTNotes: (Same As: Dermoplast) WASTE: Aerosol - Return to Pharmacy FOR EXTERNAL USE ONLY Ondansetron 4 mg, 2 mL, No Longer [place] Route: IVP, Active 2015 Medical Drug form: INJ, Center Q8H, Dosing Weight 87.727, kg, PRN Nausea & Vomiting, Start date: 12/04/15 16:36:00 CDT, Duration: 30 day, Stop date: 01/03/16 16:35:00 CDTNotes: (Same as: Zofran) MEDICATION WASTE Product Size: 4 mg Product Wasted: ___ mg Docusate 100 mg, 1 cap, No Longer [place] Route: PO, Drug Active 2015 Medical form: CAP, BID, Center Dosing Weight 87.727, kg, PRN Constipation, Start date: 12/04/15 16:36:00 CDT, Duration: 30 day, Stop date: 01/03/16 16:35:00 CDTNotes: (Same as: Colace) (Do Not Crush) Lactated Ringers 1,000 mL, Rate: No Longer [place] IV 1,000 mL 100 ml/hr, Active 2015 Medical Infuse over: 10 Center hr, Route: IV, Dosing Weight 87.727 kg, Total Volume: 1,000, Start date: 12/04/15 16:36:00 CDT, Duration: 30 day, Stop date: 01/03/16 16:35:00 CDT Oxytocin 0.06 30 unit, 500 No Longer [place] UNT/ML Injectable mL, Rate: 42 Active 2015 Medical Solution ml/hr, Infuse Center over: 11.9 hr, Dosing Weight 87.727, kg, Route: IV, Total Volume: 500 mL, Start date: 12/04/15 16:36:00 CDT, Duration: 2 doses or times, Stop date: 12/05/15 16:23:00 CDT, Replace Every: 11.9 hrNotes: (Same as: OXYTOCIN-D5LR) betamethasone 12 mg, 2 mL, No Longer [place] Route: IM, Drug Active 2015 Medical form: INJ, Center Q24H, Dosing Weight 87.727, kg, Start date: 12/04/15 14:00:00 CDT, Duration: 2 doses or times, Stop date: 12/05/15 14:00:00 CDTNotes: (betamethasone acetate-sodium phosphate 6 mg/ml INJ) (Same As: [place] Soluspan) Penicillin G 2,500,000 unit, Inactive [place] Route: IVPB, 2015 Medical Drug form: Center PDR/INJ, ABXQ4H, Dosing Weight 88.636, kg, Start date: 12/04/15 14:00:00 CDT, Duration: 30 day, Stop date: 01/03/16 10:00:00 CDTNotes: (Same as: Pfizerpen) MEDICATION WASTE Product Size: 5,000,000 unit Product Wasted: ___ unit Oxytocin 0.06 30 unit, 500 Inactive [place] UNT/ML Injectable mL, Rate: 2015 Medical Solution Titrate, Dosing Center Weight 87.727, kg, Route: IV, Total Volume: 500 mL, Start date: 12/04/15 13:04:00 CDT, Duration: 2 day, Stop date: 12/06/15 13:03:00 CDT, Replace Every: 24 hrNotes: (Same as: OXYTOCIN-D5LR) Penicillin G 5,000,000 unit, Inactive [place] Potassium [id number] Route: IVPB, 2016 Medical UNT/ML Injectable Drug form: [place] Solution PDR/INJ, ONCALL, Dosing Weight 88.636, kg, Start date: 12/04/15 10:00:00 CDTNotes: (Same as: Pfizerpen) MEDICATION WASTE Product Size: 5,000,000 unit Product Wasted: ___ unit Citric Acid / 30 mL, Route: Inactive [place] sodium citrate PO, Drug Form: 2016 Medical SOLN, Dosing Center Weight 88.636, kg, ONCALL, Start date: 12/04/15 10:00:00 CDT, Duration: 30 day, Stop date: 01/03/16 9:59:00 CDTNotes: (Same As: Bicitra, Cytra-2) Sodium citrate-citric acid (500-334 mg/5 mL): 1 mL contains sodium 1 mEq/mL and bicarbonate 1 mEq/mL Methylergonovine 0.2 mg, 1 mL, Inactive [place] Route: IM, Drug 2016 Medical form: INJ, Center ONCALL, Dosing Weight 88.636, kg, Start date: 12/04/15 10:00:00 CDT, Duration: 30 day, Stop date: 01/03/16 9:59:00 CDTNotes: (Same as:Methergine) Misoprostol 1,000 Inactive [place] microgram, 5 2016 Medical tab, Route: [place], Center Drug form: TAB, ONCALL, Dosing Weight 88.636, kg, Start date: 12/04/15 10:00:00 CDT, Duration: 1 doses or timesNotes: (Same as:Cytotec) Take with food Famotidine 20 mg, 2 mL, Inactive [place] Route: IVP, 2016 Medical Drug form: INJ, Center ONCALL, Dosing Weight 88.636, kg, Start date: 12/04/15 10:00:00 CDT, Duration: 30 day, Stop date: 01/03/16 9:59:00 CDTNotes: (Same as: Pepcid) Can be dilute in 5-10cc NS IVP: Slow IV push over at least 2 minutes. Carboprost 250 microgram, Inactive [place] 1 mL, Route: 2016 Medical IM, Drug form: Center INJ, ONCALL, Dosing Weight 88.636, kg, Start date: 12/04/15 10:00:00 CDT, Duration: 30 day, Stop date: 01/03/16 9:59:00 CDTNotes: (Same As: Hemabate) Sodium Chloride 250 mL, Rate: No Longer [place] 0.9% (titrate) 250 house calls nurse for use Active 2015 Medical mL with blood Center product administration, Dosing Weight 88.636, kg, Route: IV, Total Volume: 250, Start Date: 12/04/15 9:06:00 CDT, Duration: 30 day, Stop date: 01/03/16 9:05:00 CDT, Replace Every: 24 hr Lidocaine 200 mg, 20 mL, Inactive [place] Hydrochloride 10 Route: PERCUT, 2015 Medical MG/ML Injectable Drug Form: INJ, Center Solution Dosing Weight 88.636, kg, PRN, PRN Other -See Comment, Start date: 12/04/15 9:05:00 CDT, Duration: 1 doses or times, Stop date: Limited # of timesNotes: (Same as: Xylocaine) Terbutaline 0.25 mg, 0.25 Inactive [place] mL, Route: 2016 Medical SUB-Q, Drug Center form: INJ, PRN, Dosing Weight 88.636, kg, PRN Other -See Comment, Start date: 12/04/15 9:05:00 CDT, Duration: 1 doses or times, Stop date: Limited # of timesNotes: DO NOT USE IN PHARMACY AIDE AREA (Same As: Brethine) Butorphanol 1 mg, 0.5 mL, Inactive [place] Route: IVP, 2015 Medical Drug form: INJ, Center Q2H, Dosing Weight 88.636, kg, PRN Pain Score 1-5, Start date: 12/04/15 9:05:00 CDT, Duration: 30 day, Stop date: 01/03/16 9:04:00 CDTNotes: (Same As: Stadol) MEDICATION WASTE Product Size: 2 mg Product Wasted: ___ mg Ondansetron 4 mg, 2 mL, Inactive [facility] Route: IVP, 2016 Medical Drug form: INJ, Center Q8H, Dosing Weight 88.636, kg, PRN Nausea & Vomiting, Start date: 12/04/15 9:05:00 CDT, Duration: 30 day, Stop date: 01/03/16 9:04:00 CDTNotes: (Same as: Zofran) MEDICATION WASTE Product Size: 4 mg Product Wasted: ___ mg Oxytocin 0.06 30 unit, 500 Inactive [facility] UNT/ML Injectable mL, Rate: 42 2015 Medical Solution ml/hr, Infuse Center over: 11.9 hr, Dosing Weight 88.636, kg, Route: IV, Total Volume: 500 mL, Start date: 12/04/15 9:05:00 CDT, Duration: 2 day, Stop date: 12/06/15 9:04:00 CDT, Replace Every: 11.9 hrNotes: (Same as: OXYTOCIN-D5LR) Lactated Ringers 1,000 mL, Rate: Inactive [facility] IV 1,000 mL 125 ml/hr, 2016 Medical Infuse over: 8 Center hr, Route: IV, Dosing Weight 88.636 kg, Total Volume: 1,000, Start date: 12/04/15 9:05:00 CDT, Duration: 30 day, Stop date: 01/03/16 9:04:00 CDT Calcium Chloride 1,000 mL, 1,000 Inactive [facility] 0.0014 MEQ/ML / ml/hr, Infuse 2015 [facility] Potassium Chloride Over: 1 hr, Center 0.004 MEQ/ML / Route: IV, Sodium Chloride 1,000, Drug 0.103 MEQ/ML / form: INJ, Sodium Lactate ONCE, Dosing 0.028 MEQ/ML Weight 88.636 Injectable kg, Start date: Solution 12/04/15 9:05:00 CDT, Stop date: 12/04/15 9:05:00 CDT, Bolus for regional anesthesia per unit protocol Phenergan 25 mg, 1 mL, Inactive [facility] Route: IM, Drug 2015 Medical form: INJ, Center ONCE, Dosing Weight 88.636, kg, Start date: 12/01/15 5:42:00, Stop date: 12/01/15 5:42:00Notes: Do not give IV push. (Same as: Phenergan) Demerol HCl 50 mg, 2 mL, Inactive [facility] Route: IM, Drug 2015 Medical form: INJ, Center ONCE, Dosing Weight 88.636, kg, Start date: 12/01/15 5:41:00, Stop date: 12/01/15 5:41:00Notes: (Same as: Demerol) "Use Precaution in Elderly, Seizure disorders, and Renal impairment" Ofirmev 1,000 mg, 100 Inactive [place] mL, Route: IV, 2016 Medical Drug form: INJ, Center ONCE, Dosing Weight 88.636, kg, Start date: 12/01/15 4:04:00, Stop date: 12/01/15 4:04:00Notes: Infuse over 15 minutes Do not exceed 4gm/day of acetaminophen MEDICATION WASTE Product Size: 1000 mg Product Wasted: ___ mg Calcium Chloride 1,000 mL, Rate: Inactive [place] 0.0014 MEQ/ML / 125 ml/hr, 2015 [facility] Potassium Chloride Infuse over: 8 Center 0.004 MEQ/ML / hr, Route: IV, Sodium Chloride Dosing Weight 0.103 MEQ/ML / 88.636 kg, Sodium Lactate Total Volume: 0.028 MEQ/ML 1,000, Start Injectable date: 12/01/15 Solution 3:15:00, Duration: 30 day, Stop date: 12/31/15 3:14:00 Metronidazole 500 500 mg=1 tab, Active [facility] MG Oral Tablet PO, BID, X 7 2015 [Flagyl] , # 14 tab, Center 0 Refill(s) Allergies, Adverse Reactions, Alerts Substance Category Reaction Severity Reaction Status Date Comments Source type Reported traMADol Assertion Drug Active [facility] Immunizations Immunization Date Given Site Status Last Updated Comments Source Results Order Name Results Value Reference Date Interpretation Comments Source Range HEMATOLOGY PTT 26.5 s 22.9 - 12 [place] 35.8 /2017 [facility] HEMATOLOGY INR 0.97 0.85 - 08/23 [place] 1.17 /2016 [facility] HEMATOLOGY PT 12.9 s 12.0 - 08/23 [facility] 14. [facility] HEMATOLOGY vWF Assay 101 % 45 - 140 08/23 [facility] HEMATOLOGY vWF Antigen 213 % 45 - 165 08/23 [facility] DRUG SCREEN U Propoxyph Negative Negative 08/23 [facility] (08/23/17 2:03 AM) DRUG SCREEN U Methadone Negative Negative 08/23 [facility] (08/23/17 2:03 AM) DRUG SCREEN UDS Note See Note 08/23 [facility] (08/23/17 2:03 AM) [place] DRUG SCREEN U Phencyc Scr Negative Negative 08/23 [facility] (08/23/17 2:03 AM) DRUG SCREEN U Opiate Scr Negative Negative 08/23 [facility] (08/23/17 2:03 AM) DRUG SCREEN U Benzodia Negative Negative 08/23 [facility] (08/23/17 2:03 AM) DRUG SCREEN U Cannab Scr Negative Negative 08/23 [facility] (08/23/17 2:03 AM) DRUG SCREEN U Cocaine Scr Negative Negative 08/23 [facility] (08/23/17 2:03 AM) DRUG SCREEN U Cydney Scr Negative Negative 08/23 [facility] (08/23/17 2:03 AM) DRUG SCREEN U Amph Scr Negative Negative 08/23 [facility] (08/23/17 2:03 AM) BLOOD BANK RBC product Product available 08/23 [facility] (08/23/17 1:54 AM) [place] BLOOD BANK Path AB Transfusio 08/23 [facility] RESULTS n [facility] Physician [place] Services e patient is a 27 y/o at 35w2d with a medical history of bipolar disorder, asthma, and obesity of presents of contractio ns.Immunoh ematologic testing demonstrat es the presence of an anti-D in this patients serum. This antibody is directed against the D antigen of the "Rh" blood group system and is typically IgG in nature. Although usually considered clinically significan t, the presence of this antibody most likely represents passive immunizati on due to Rh Immune Globulin administra tion (by history given at 30 weeks on 07/17/2017 ).Should RBC transfusio n be required, Rh-negativ e crossmatch -compatibl e units will be issued. No difficulty in obtaining compatible blood is expected.T he patients electronic medical record has been reviewed for relevant informatio n.I have reviewed the test results and concur with the resident's , Dr. Camp, interpreta tion.CPT: [id number] BLOOD BANK Antibody Scrn Positive 1 08/23 Result Comment: 08/23/2017 04 :06 [id number] [facility] "Significant Findings called to Marcy STEELE at 0404 by DOMENICO. Read Back OK." [facility] (08/23/17 12:36 AM) [place] 08/23/2017 04:04 [id number] Patient has unexpected antibodies. Allow extra time for additional crossmatches. BLOOD BANK ABO/Rh A NEG 08/23 [facility] BLOOD BANK AB Int Rhig 08/23 [facility] RESULTS Anti-D [facility] HEMATOLOGY Segs-Bands # 9.8 K/CMM 1.5 - 8.1 08/[address] HEMATOLOGY Lymphocytes # 2.5 K/CMM 1.0 - 5.5 08/[address] HEMATOLOGY Monocytes # 0.9 K/CMM 0.0 - 0.8 08/[address] HEMATOLOGY Eosinophils # 0.2 K/CMM 0.0 - 0.5 08/[address] HEMATOLOGY Basophils # 0.1 K/CMM 0.0 - 0.2 08/[address] HEMATOLOGY Lymphocytes 18.6 % 20.0 - 08/23 [place] 40.0 [facility] HEMATOLOGY Monocytes 6.7 % 2.0 - 12.0 08/[address] HEMATOLOGY Eosinophils 1.1 % 0.0 - 4.0 08/[address] HEMATOLOGY Basophils 0.4 % 0.0 - 1.0 08/[address] HEMATOLOGY Segs 73.2 % 45.0 - 08/23 [facility] 75.0 [facility] HEMATOLOGY Factor VIII 255 % 50 - 242 08/[address] HEMATOLOGY MPV 9.9 fL 7.4 - 10.4 08/23 [facility] HEMATOLOGY MCHC 33.5 g/dL 32.0 - 08/23 [facility] 36.0 [facility] HEMATOLOGY MCH 27.4 pg 27.0 - 08/23 [facility] 31.0 [facility] HEMATOLOGY Hct 33.5 % 36.0 - 08/23 [facility] 48.0 [facility] HEMATOLOGY MCV 82.0 fL 80.0 - 08/23 [facility] 98.0 [facility] HEMATOLOGY Hgb 11.2 g/dL 12.0 - 08/23 [facility] 16.0 [facility] HEMATOLOGY Platelet 215 K/CMM 133 - 450 08/23 [facility] HEMATOLOGY RDW 15.4 % 11.5 - 08/23 [facility] 14.5 [facility] HEMATOLOGY RBC 4.09 M/CMM 4.20 - 08/23 [facility] 5.40 [facility] HEMATOLOGY WBC 13.4 K/CMM 3.7 - 10.4 08/23 [facility] IMMUNOLOGY Hep Bs Ag Negative Negative [facility] [place] (08/23/17 12:36 AM) IMMUNOLOGY HIV. Negative Negative 08/23 [facility] [place] (08/23/17 12:36 AM) IMMUNOLOGY Treponemal Non Reactive Non 08/23 [facility] Scr [facility] (08/23/17 12:36 AM) CHEM PANEL A/G Ratio 0.6 0.7 - 1.6 08/02 [facility] CHEM PANEL B/C Ratio 25 6 - 25 08/02 [facility] CHEM PANEL Globulin 4.7 g/dL 2.7 - 4.2 08/02 [facility] CHEM PANEL AGAP 12.1 meq/L 10.0 - 08/02 [facility] 20.0 [facility] CHEM PANEL eGFR 149 08/02 Result Comment: The eGFR is calculated using the CKD-EPI formula. In most young, healthy individuals the eGFR will be >90 mL/ min/1.73m2. The eGFR declines with age. An eGFR of 60-89 may be normal in [facility] mL/min/1. some populations, particularly the elderly, for whom the CKD-EPI formula has not been extensively validated. Use of the eGFR is not recommended in the following populations: Medical 3m2 Center Individuals with unstable creatinine concentrations, including patients and those with serious co-morbid conditions. Patients with extremes in muscle mass or diet. The data above are obtained from the National Kidney Disease Education Program (NKDEP) which additionally recommends that when the eGFR is used in patients with extremes of body mass index for purposes of drug dosing, the eGFR should be multiplied by the estimated BMI. CHEM PANEL Bili Total 0.2 mg/dL 0.2 - 1.3 08/[address] CHEM PANEL CO2 25 meq/L 24 - 32 08/[address] CHEM PANEL Calcium Lvl 8.3 mg/dL 8.5 - 10.5 08/[address] CHEM PANEL Potassium Lvl 4.1 meq/L 3.5 - 5.1 08/[address] CHEM PANEL Sodium Lvl 136 meq/L 135 - 145 08/[address] CHEM PANEL Chloride Lvl 103 meq/L 95 - 109 08/[address] CHEM PANEL Alk Phos 103 unit/L 39 - 136 08/[address] CHEM PANEL ALT 32 unit/L 0 - 65 08/[address] CHEM PANEL AST 12 unit/L 0 - 37 08/[address] CHEM PANEL Albumin Lvl 2.6 g/dL 3.5 - 5.0 08/[address] CHEM PANEL Total Protein 7.3 g/dL 6.4 - 8.4 08/[address] CHEM PANEL Creatinine 0.36 mg/dL 0.50 - 08/02 [facility] Lvl 1.40 [facility] CHEM PANEL BUN 9 mg/dL 7 - 22 08/[address] CHEM PANEL Glucose Lvl 70 mg/dL 70 - 99 08/[address] HEMATOLOGY Eosinophils # 0.1 K/CMM 0.0 - 0.5 08/[address] HEMATOLOGY Segs 78.6 % 45.0 - 08/02 [facility] [address] [place] [address] HEMATOLOGY Lymphocytes # 2.1 K/CMM 1.0 - 5.5 08/[address] HEMATOLOGY Segs-Bands # 11.3 K/CMM 1.5 - 8.1 08/02 [facility] HEMATOLOGY Basophils 0.3 % 0.0 - 1.0 08/02 [facility] HEMATOLOGY Monocytes # 0.8 K/CMM 0.0 - 0.8 08/02 [facility] HEMATOLOGY Eosinophils 0.9 % 0.0 - 4.0 08/02 [facility] HEMATOLOGY Monocytes 5.4 % 2.0 - 12.0 08/02 [facility] HEMATOLOGY Lymphocytes 14.8 % 20.0 - 08/02 40.0 [facility] HEMATOLOGY Hct 34.0 % 36.0 - 08/02 [place] 48.0 [facility] HEMATOLOGY WBC 14.4 K/CMM 3.7 - 10.4 08/02 [facility] HEMATOLOGY Hgb 11.5 g/dL 12.0 - 08/02 16.0 [facility] HEMATOLOGY RBC 4.07 M/CMM 4.20 - 08/02 [facility] 5.40 /2016 [facility] HEMATOLOGY MPV 9.4 fL 7.4 - 10.4 08/02 [facility] HEMATOLOGY MCH 28.2 pg 27.0 - 08/02 31.0 [facility] HEMATOLOGY Platelet 251 K/CMM 133 - 450 08/02 [facility] HEMATOLOGY MCHC 33.7 g/dL 32.0 - 08/02 36.0 [facility] HEMATOLOGY MCV 83.6 fL 80.0 - 08/02 [facility] 98.0 [facility] HEMATOLOGY RDW 14.4 % 11.5 - 08/02 [facility] 14.5 [facility] URINE AND UA <=1.0 0.1 - 1.0 08/02 [facility] Urobilinogen mg/dL /2016 [facility] URINE AND UA Sq Epi Many /LPF Few /LPF 08/02 [facility] URINE AND UA Leuk Est Moderate Negative 08/02 [facility] *ABN* Center (08/02/17 2:02 PM) URINE AND UA Blood Negative Negative 08/02 [facility] (08/02/17 2:02 PM) [place] URINE AND UA Nitrite Negative Negative 08/02 [facility] (08/02/17 2:02 PM) [place] URINE AND UA Bili Negative Negative 08/02 [facility] *NA* Center (08/02/17 2:02 PM) URINE AND UA RBC 1 /HPF 0 - 2 08/02 [facility] URINE AND UA WBC 7 /HPF 0 - 5 08/02 [facility] URINE AND UA Mucus Few /LPF None Seen 08/02 [facility] /LPF [facility] URINE AND UA Spec Grav 1.023 <=1.030 08/02 [facility] URINE AND UA Turbidity Slight Clear 08/02 [facility] Medical *ABN* Center (08/02/17 2:02 PM) URINE AND UA Color Yellow Yellow 08/02 [facility] *NA* Center (08/02/17 2:02 PM) URINE AND UA Glucose Negative Negative 08/02 [facility] mg/dL mg/dL [facility] URINE AND UA Ketones Negative Negative 08/02 [facility] mg/dL mg/dL [facility] URINE AND UA pH 6.5 5.0 - 8.0 08/02 [facility] URINE AND UA Protein 20 mg/dL Negative 08/02 [facility] mg/dL [facility] HEMATOLOGY Hct 32.2 % 36.0 - 12/04 [facility] 48.0 [facility] HEMATOLOGY Hgb 10.8 g/dL 12.0 - 12/04 [facility] 16.0 [facility] URINE AND UA <=1.0 0.1 - 1.0 12/03 [facility] Urobilinogen mg/dL [facility] URINE AND UA Color Yellow Yellow 12/03 [facility] *NA* Center (12/04/15 10:43 AM) URINE AND UA Turbidity Clear Clear 12/03 [facility] (12/04/15 10:43 AM) [place] URINE AND UA Bacteria Occasional None Seen 12/03 [facility] /HPF /HPF [facility] URINE AND UA Mucus Few /LPF None Seen 12/03 [facility] /LPF [facility] URINE AND UA Spec Grav 1.017 <=1.030 12/03 [facility] URINE AND UA Glucose Negative Negative 12/03 [facility] mg/dL mg/dL [facility] URINE AND UA Ketones Negative Negative 12/03 [facility] mg/dL mg/dL /2015 [facility] URINE AND UA Bili Negative Negative 12/03 [facility] *NA* Center (12/04/15 10:43 AM) URINE AND UA pH 6.5 5.0 - 8.0 12/03 [facility] URINE AND UA Protein 20 mg/dL Negative 12/03 [facility] mg/dL [facility] URINE AND UA Nitrite Negative Negative 12/03 [facility] (12/04/15 10:43 AM) [place] URINE AND UA Blood Large Negative 12/03 [facility] *ABN* [place] (12/04/15 10:43 AM) URINE AND UA Sq Epi Many /LPF Few /LPF 12/03 [facility] URINE AND UA WBC 4 /HPF 0 - 5 12/03 [facility] URINE AND UA RBC 1 /HPF 0 - 2 12/03 [facility] URINE AND UA Leuk Est Trace Negative 12/03 [facility] *ABN* [place] (12/04/15 10:43 AM) HEMATOLOGY PTT 27.5 s 22.9 - 12/03 [place] 35.8 /2015 [facility] HEMATOLOGY INR 0.97 0.85 - 12/03 [place] 1.17 [facility] HEMATOLOGY PT 13.2 s 12.0 - 12/03 [facility] 14.7 /2015 [facility] BLOOD BANK AB Int Anti-D 12/03 [place] [facility] BLOOD BANK Antibody Scrn Positive 1 12/03 Result Comment: 12/04/2015 11 :48 [email or web address] [facility] "Significant Findings called to Estephania Metzger at 1145 by Hanna. Read Back OK." [facility] (12/04/15 9:37 AM) [place] Positive Antibody Screen. Please allow additional time for crossmatches. BLOOD BANK ABO/Rh A NEG 12/03 [facility] RESULTS [facility] BLOOD BANK Path AB Blood Bank 12/03 [facility] RESULTS [address] yo female recieved Rhogam on 08/16/2016 .Immunohem atologic testing demonstrat es the presence of an anti-D in this patients serum. This antibody is directed against the D antigen of the "Rh" blood group system and is typically IgG in nature. Although usually considered clinically significan t, the presence of this antibody most likely represents passive immunizati on due to Rh Immune Globulin administra tion (by history given on08/16/20 16).Should RBC transfusio n be required, Rh-negativ e crossmatch -compatibl e units will be issued. No difficulty in obtaining compatible blood is expected.T he patients electronic medical record has been reviewed for relevant informatio n.I have reviewed the test results and concur with the resident Dr. Fany Fletcher's interpreta tion.CPT: 36479-FY HEMATOLOGY MPV 9.3 fL 7.4 - 10.4 12/03 [facility] HEMATOLOGY Platelet 232 K/CMM 133 - 450 12/03 [facility] HEMATOLOGY RDW 14.8 % 11.5 - 12/03 [facility] 14.5 [facility] HEMATOLOGY MCHC 32.3 g/dL 32.0 - 12/03 [facility] 36.0 [facility] HEMATOLOGY MCH 26.9 pg 27.0 - 12/03 [facility] 31.0 [facility] HEMATOLOGY MCV 83.4 fL 80.0 - 12/03 [facility] 98.0 [facility] HEMATOLOGY Hct 33.0 % 36.0 - 12/03 [facility] 48.0 [facility] HEMATOLOGY Hgb 10.7 g/dL 12.0 - 12/03 [facility] 16.0 [facility] HEMATOLOGY RBC 3.96 M/CMM 4.20 - 12/03 [place] 5.40 /2015 [facility] HEMATOLOGY WBC 18.6 K/CMM 3.7 - 10.4 12/03 [facility] HEMATOLOGY Basophils # 0.1 K/CMM 0.0 - 0.2 12/[address] [place] [address] HEMATOLOGY Eosinophils # 0.1 K/CMM 0.0 - 0.5 12/[address] HEMATOLOGY Monocytes # 1.2 K/CMM 0.0 - 0.8 12/[address] HEMATOLOGY Monocytes 6.3 % 2.0 - 12.0 12/[address] HEMATOLOGY Lymphocytes # 2.0 K/CMM 1.0 - 5.5 12/[address] HEMATOLOGY Segs-Bands # 15.3 K/CMM 1.5 - 8.1 12/03 [place] /2016 [facility] HEMATOLOGY Basophils 0.3 % 0.0 - 1.0 12/03 [facility] HEMATOLOGY Eosinophils 0.8 % 0.0 - 4.0 12/03 [facility] HEMATOLOGY Lymphocytes 10.7 % 20.0 - 12/03 [facility] 40.0 [facility] HEMATOLOGY Segs 81.9 % 45.0 - 12/03 [facility] 75.0 [facility] IMMUNOLOGY HIV. Negative Negative 12/03 [facility] (12/04/15 9:37 AM) IMMUNOLOGY Treponemal Non Reactive Non 12/03 [facility] Scr [facility] (12/04/15 9:37 AM) IMMUNOLOGY Hep Bs Ag Negative Negative 12/03 [facility] [place] (12/04/15 9:37 AM) BLOOD BANK RBC product Product available 12/03 [facility] (12/04/15 9:06 AM) Center Vital Signs Vital Sign Value Date Comments Source Systolic (mm Hg) 112 08/23/2017 [facility] Diastolic (mm Hg) 66 08/23/2017 [facility] Heart Rate 78 08/23/2017 [facility] Respitory Rate 18 08/23/2017 [facility] Temperature Oral (F) 98 F 08/23/2017 [facility] Systolic (mm Hg) 118 08/23/2017 [facility] Diastolic (mm Hg) 73 08/23/2017 [facility] Heart Rate 83 08/23/2017 [facility] Temperature Oral (F) 98.3 F 08/23/2017 [facility] Respitory Rate 18 08/23/2017 [facility] Systolic (mm Hg) 110 08/23/2017 [facility] Diastolic (mm Hg) 61 08/23/2017 [facility] Temperature Oral (F) 98.3 F 08/23/2017 [facility] BMI Calculated 36.73 08/23/2017 [facility] Weight 88.182 08/23/2017 [facility] Height 154.94 cm 08/23/2017 [facility] Weight 88.182 08/23/2017 [facility] Height 154.94 cm 08/23/2017 [facility] BMI Calculated 36.73 08/23/2017 [facility] Respitory Rate 18 08/23/2017 [facility] Heart Rate 78 08/23/2017 [facility] Systolic (mm Hg) 135 08/02/2017 [facility] Diastolic (mm Hg) 65 08/02/2017 [facility] Systolic (mm Hg) 110 08/02/2017 [facility] Diastolic (mm Hg) 55 08/02/2017 [facility] Systolic (mm Hg) 107 08/02/2017 [facility] Diastolic (mm Hg) 61 08/02/2017 [facility] Respitory Rate 20 08/02/2017 [facility] Heart Rate 84 08/02/2017 [facility] Temperature Oral (F) 98.2 F 08/02/2017 [facility] Height 154.94 cm 08/02/2017 [facility] Weight 85 08/02/2017 [facility] BMI Calculated 35.41 08/02/2017 [facility] Temperature Oral (F) 98.5 F 08/02/2017 [facility] Respitory Rate 18 08/02/2017 [facility] Heart Rate 81 08/02/2017 [facility] Systolic (mm Hg) 123 12/08/2015 [facility] Diastolic (mm Hg) 67 12/08/2015 [facility] Temperature Oral (F) 98.4 F 12/08/2015 [facility] Respitory Rate 20 12/08/2015 [facility] Heart Rate 64 12/08/2015 [facility] Weight 77.273 12/08/2015 [facility] BMI Calculated 32.19 12/08/2015 [facility] Height 154.94 cm 12/08/2015 [facility] Systolic (mm Hg) 124 12/06/2015 [facility] Diastolic (mm Hg) 81 12/06/2015 [facility] Respitory Rate 18 12/06/2015 [facility] Temperature Oral (F) 97.4 F 12/06/2015 [facility] Heart Rate 76 12/06/2015 [facility] Systolic (mm Hg) 110 12/05/2015 [facility] Diastolic (mm Hg) 63 12/05/2015 [facility] Respitory Rate 18 12/05/2015 [facility] Temperature Oral (F) 97.9 F 12/05/2015 [facility] Heart Rate 67 12/05/2015 [facility] Respitory Rate 18 12/05/2015 [facility] Systolic (mm Hg) 125 12/05/2015 [facility] Diastolic (mm Hg) 67 12/05/2015 [facility] Heart Rate 80 12/05/2015 [facility] Temperature Oral (F) 98.6 F 12/05/2015 [facility] Weight 87.727 12/04/2015 [facility] BMI Calculated 36.54 12/04/2015 [facility] Height 154.94 cm 12/04/2015 [facility] Respitory Rate 18 12/01/2015 [facility] Systolic (mm Hg) 118 12/01/2015 [facility] Diastolic (mm Hg) 78 12/01/2015 [facility] BMI Calculated 36.92 12/01/2015 [facility] Weight 88.636 12/01/2015 [facility] Height 154.94 cm 12/01/2015 [facility] Heart Rate 72 09/20/2015 [facility] Systolic (mm Hg) 119 09/20/2015 [facility] Diastolic (mm Hg) 72 09/20/2015 [facility] BMI Calculated 32.57 09/20/2015 [facility] Weight 78.182 09/20/2015 [facility] Height 154.94 cm 09/20/2015 [facility] Encounters Location Location Encounter Encounter Reason Attending ADM DC Status Source Details Type Number For Provider Date Date Visit [facility] [id number] Tano 09/20 09/20 [facility] Observation [facility] /2015 [facility] OBS [id number] Tano 11/30 11/30 [facility] Observation [facility] /2015 [facility] Inpatient [id number] Soy 12/03 12/06 [facility] Prabhjot-Crystal /2015 [facility] OBS [id number] Traci 12/07 12/07 [facility] Observation Gustavo /2015 [facility] Emergency [id number] Tyree Harris 08/02 08/02 [facility] /2016 [facility] Observation [id number] Keiko 08/23 08/24 [facility] Tor /2016 [facility] Procedures Procedure Code Date Perfomer Comments Source Tonsillectomy [id number] 08/26/2002 [facility] Appendectomy [id number] 08/26/1999 [facility] Cystectomy [id number] 08/26/1992 [facility] D&C - Dilatation [id number] [facility]
--- OUTSIDE RECORDS SUMMARY | 2018-11-02 11:49 | XMS REPORT | Summary of Care ---
:1990 Author Organization [facility] Address [address] [place] [id number] Encounter HQ Angel(FIN) [phone] Date(s): 08/22/17 - 08/23/[address] Professional Services provided by [facility] [place] [address]- Discharge Disposition: Home or Self Care Attending Physician: Keiko Lentz MD Admitting Physician: Keiko Lentz MD Vital Signs Most recent to oldest 1 2 3 [Reference Range]: Height 154.94 cm 154.94 cm (08/23/17 1:47 AM) (08/22/17 11:32 PM) Temperature Oral 98 DegF 98.3 DegF 98.3 DegF [96.4-99.1 DegF] (08/23/17 5:48 PM) (08/23/17 1:33 PM) (08/23/17 7:45 AM) Blood Pressure 112/66 mmHg 118/73 mmHg 110/61 mmHg [90-140/60-90 mmHg] (08/23/17 5:48 PM) (08/23/17 1:33 PM) (08/23/17 10:45 AM ) Respiratory Rate [14-20 18 BRMIN 18 BRMIN 18 BRMIN BRMIN] (08/23/17 5:48 PM) (08/23/17 1:33 PM) (08/22/17 11:32 PM) Peripheral Pulse Rate 78 bpm 83 bpm 78 bpm [60-100 bpm] (08/23/17 5:48 PM) (08/23/17 1:33 PM) (08/22/17 11:32 PM) Weight 88.182 kg 88.182 kg (08/23/17 1:47 AM) (08/22/17 11:32 PM) Body Mass Index 36.73 m2 36.73 m2 (08/23/17 1:47 AM) (08/22/17 11:32 PM) Problem List Condition Effective Dates Status Health Status Informant Asthma(Confirmed) Active Bipolar 1 disorder(Confirmed) Resolved Chlamydia(Confirmed) Resolved (Confirmed) 11/16/16 Active (Confirmed) 01/24/12 - 10/23/12 Resolved (Confirmed) 05/07/11 - 08/06/11 Resolved (Confirmed) 03/27/15 - 12/04/15 Resolved Premature labor(Confirmed) Active Von Willebrand disease(Confirmed) Active Allergies, Adverse Reactions, Alerts Substance Reaction Severity Status NKDA Active traMADol Active Medications antihemophilic factor-von Willebrand factor 1,399 unit, Route: IV, Drug form: INJ, ONCALL, Start date: 08/23/17 8:00:00 POCKET AND PULLEY MACHINE OPERATOR , Duration: 30 day, Stop date: 09/22/17 7:59:00 POCKET AND PULLEY MACHINE OPERATOR Notes: Note - 100 AHF [id number]=988 RCOF units. Call 2 Hours Ahead for the next dose Start Date: 08/23/17 Stop Date: 08/23/17 Status: Discontinuedcarboprost 250 microgram, 1 mL, Route: IM, Drug form: INJ, ONCALL, Dosing Weight 88.182, kg , Start date: 08/23/17 1:00:00 POCKET AND PULLEY MACHINE OPERATOR, Duration: 30 day, Stop date: 09/22/17 0:59: 00 POCKET AND PULLEY MACHINE OPERATOR Notes: (Same As: Hemabate) Start Date: 08/23/17 Stop Date: 08/23/17 Status: Discontinuedcitric acid-sodium citrate 30 mL, Route: PO, Drug Form: SOLN, Dosing Weight 88.182, kg, ONCALL, Start date : 08/23/17 1:00:00 POCKET AND PULLEY MACHINE OPERATOR, Duration: 30 day, Stop date: 09/22/17 0:59:00 POCKET AND PULLEY MACHINE OPERATOR Notes: (Same As: Bicitra, Cytra-2) Sodium citrate-citric acid (500-334 mg/5 mL) : 1 mL contains sodium 1 mEq/mL and bicarbonate 1 mEq/mL Start Date: 08/23/17 Stop Date: 08/23/17 Status: Discontinuedfamotidine 20 mg, 2 mL, Route: IVP, Drug form: INJ, ONCALL, Dosing Weight 88.182, kg, Start date: 08/23/17 1:00:00 POCKET AND PULLEY MACHINE OPERATOR, Duration: 30 day, Stop date: 09/22/17 0:59:00 POCKET AND PULLEY MACHINE OPERATOR Notes: (Same as: Pepcid)Can be dilute in 5-10cc NS IVP: Slow IV push over at least 2 minutes. Start Date: 08/23/17 Stop Date: 08/23/17 Status: DiscontinuedfentaNYL (PF) 20 mcg/ml FACING END TRIMMER (600 microgram /30 mL) 600 microgram 600 microgram, 30 mL, Route: IV, FACING END TRIMMER Dose: 10 mcg, FACING END TRIMMER Lockout: 10 minutes, Continuous Basal Rate: 0mg, 4 Hour Limit (In MCG): 240, Drug Form: INJ, Continuous, Start date: 08/23/17 4:34:00 POCKET AND PULLEY MACHINE OPERATOR, Duration: 30 day, Stop date: 09/22 4:33:00 POCKET AND PULLEY MACHINE OPERATOR Notes: Concentration is 20 micrograms/ml Start Date: 08/23/17 Stop Date: 08/23/17 Status: Discontinuedibuprofen 600 mg, 1 tab, Route: PO, Drug form: TAB, Q6H, Dosing Weight 88.182, kg, PRN Other -See Comment, Start date: 08/23/17 0:04:00 POCKET AND PULLEY MACHINE OPERATOR, Duration: 30 day, Stop date: 09/22/17 0:03:00 POCKET AND PULLEY MACHINE OPERATOR Notes: (Same as: Motrin)"Do Not Crush" Take with food. Start Date: 08/23/17 Stop Date: 08/23/17 Status: DiscontinuedLactated Ringers (Bolus) IV 1,000 mL, 1,000 ml/hr, Infuse Over: 1 hr, Route: IV, 1,000, Drug form: INJ, ONCE , Dosing Weight 88.182 kg, Start date: 08/23/17 0:04:00 POCKET AND PULLEY MACHINE OPERATOR, Stop date: 0:04:00 POCKET AND PULLEY MACHINE OPERATOR, Bolus for regional anesthesia per unit protocol Start Date: 08/23/17 Stop Date: 08/23/17 Status: CompletedLactated Ringers IV 1,000 mL 1,000 mL, Rate: 125 ml/hr, Infuse over: 8 hr, Route: IV, Dosing Weight 88.182 kg , Total Volume: 1,000, Start date: 08/23/17 0:04:00 POCKET AND PULLEY MACHINE OPERATOR, Duration: 30 day, Stop date: 09/22/17 0:03:00 POCKET AND PULLEY MACHINE OPERATOR, 1.98, m2 Start Date: 08/23/17 Stop Date: 08/23/17 Status: Discontinuedlidocaine 1% 200 mg, 20 mL, Route: PERCUT, Drug Form: INJ, Dosing Weight 88.182, kg, PRN, PRN Other -See Comment,Start date: 08/23/17 0:04:00 POCKET AND PULLEY MACHINE OPERATOR, Duration: 1 doses or times, Stop date: Limited # of times Notes: (Same as: Xylocaine) Start Date: 08/23/17 Stop Date: 08/23/17 Status: Discontinuedlidocaine 1% injectable solution 2.5 mg, 0.25 mL, Route: INTRADERM, Drug Form: INJ, Dosing Weight 88.182, kg, PRN , PRN Other -See Comment, Start date: 08/23/17 0:04:00 POCKET AND PULLEY MACHINE OPERATOR, Duration: 30 day, Stop date: 09/22/17 0:03:00 POCKET AND PULLEY MACHINE OPERATOR Notes: (Same as: Xylocaine) Start Date: 08/23/17 Stop Date: 08/23/17 Status: Discontinuedmethylergonovine 0.2 mg, 1 mL, Route: IM, Drug form: INJ, ONCALL, Dosing Weight 88.182, kg, Start date: 08/23/17 1:00:00 POCKET AND PULLEY MACHINE OPERATOR, Duration: 30 day, Stop date: 09/22/17 0:59:00 POCKET AND PULLEY MACHINE OPERATOR Notes: (Same as:Methergine) Start Date: 08/23/17 Stop Date: 08/23/17 Status: Discontinuedmisoprostol 1,000 microgram, 5 tab, Route: NJ, Drug form: TAB, ONCALL, Dosing Weight 88.182 , kg, Start date: 08/23/17 1:00:00 POCKET AND PULLEY MACHINE OPERATOR, Duration: 1 doses or times Notes: (Same as:Cytotec) Take with food Start Date: 08/23/17 Stop Date: 08/23/17 Status: Discontinuedmultivitamin, 1 tab, Route: PO, Drug Form: TAB, Dosing Weight 88.182, kg, Daily, Start date: 08/24/17 9:00:00 POCKET AND PULLEY MACHINE OPERATOR,Duration: 30 day, Stop date: 09/22/17 9:00:00 POCKET AND PULLEY MACHINE OPERATOR Start Date: 08/24/17 Stop Date: 08/23/17 Status: Canceledmultivitamin, Multivitamins with Folic Acid 1.4 mg oral tablet, chewable PO, Daily, 0 Refill(s) Start Date: 08/23/17 Status: Orderednaloxone 0.04 mg, 0.1 mL, Route: IVP, Drug form: INJ, Q2MIN, Dosing Weight 88.182, kg, PRN Narcotic Reversal,Start date: 08/23/17 4:34:00 POCKET AND PULLEY MACHINE OPERATOR, Duration: 30 day, Stop date: 09/22/17 4:33:00 POCKET AND PULLEY MACHINE OPERATOR Notes: Same as Narcan Start Date: 08/23/17 Stop Date: 08/23/17 Status: Discontinuedondansetron 4 mg, 2 mL, Route: IVP, Drug form: INJ, Q8H, Dosing Weight 88.182, kg, PRN Nausea & Vomiting, Start date: 08/23/17 0:04:00 POCKET AND PULLEY MACHINE OPERATOR, Duration: 30 day, Stop date: 09/22/17 0:03:00 POCKET AND PULLEY MACHINE OPERATOR Notes: (Same as: Zofran) MEDICATION WASTE Product Size: 4 mgProduct Wasted: ___ mg Start Date: 08/23/17 Stop Date: 08/23/17 Status: Discontinuedoxytocin 30 units in NS 500ml (Titrate) IV 30 unit 30 unit, 500 mL, Rate: 42 ml/hr, Infuse over: 11.9 hr, Dosing Weight 88.182, kg , Route: IV, Total Volume: 500 mL, Start date: 08/23/17 0:04:00 POCKET AND PULLEY MACHINE OPERATOR, Duration: 2 day, Stop date: 08/25/17 0:03:00 POCKET AND PULLEY MACHINE OPERATOR, Replace Every: 11.9 hr Start Date: 08/23/17 Stop Date: 08/23/17 Status: Discontinuedpenicillin G potassium 2,500,000 unit, 50 mL, Route: IVPB, Drug form: INJ, ABXQ4H, Dosing Weight 88.182 , kg, Start date: 08/23/17 10:30:00 POCKET AND PULLEY MACHINE OPERATOR, Duration: 30 day, Stop date: 09/22/17 6 :30:00 POCKET AND PULLEY MACHINE OPERATOR Start Date: 08/23/17 Stop Date: 08/23/17 Status: Discontinuedpenicillin G potassium 2,500,000 unit, 50 mL, Route: IVPB, Drug form: INJ, ABXQ4H, Dosing Weight 88.182 , kg, Start date: 08/23/17 5:00:00 POCKET AND PULLEY MACHINE OPERATOR, Duration: 30 day, Stop date: 09/22/17 1: 00:00 POCKET AND PULLEY MACHINE OPERATOR Start Date: 08/23/17 Stop Date: 08/23/17 Status: Discontinuedpenicillin G potassium 5,000,000 units injection 5,000,000 unit, Route: IVPB, Drug form: PDR/INJ, ONCALL, Dosing Weight 88.182, kg, Start date: 08/23/17 1:00:00 POCKET AND PULLEY MACHINE OPERATOR, Duration: 30 day, Stop date: 09/22/17 0:59 :00 POCKET AND PULLEY MACHINE OPERATOR Notes: (Same as: Shannon) MEDICATION WASTE Product Size: 5,000,000 unitProduct Wasted: ___ unit Start Date: 08/23/17 Stop Date: 08/23/17 Status: Completedterbutaline 0.25 mg, 0.25 mL, Route: SUB-Q, Drug form: INJ, PRN, Dosing Weight 88.182, kg, PRN Other -See Comment, Start date: 08/23/17 0:04:00 POCKET AND PULLEY MACHINE OPERATOR, Duration: 1 doses or times, Stop date: Limited # of times Notes: DO NOT USE IN UNDERGROUND ELECTRICIAN AREA(Same As: Tiathidoug) Start Date: 08/23/17 Stop Date: 08/23/17 Status: Discontinued Results BLOOD BANK RESULTS Most recent to oldest [Reference 1 Range]: ABO/Rh A NEG *Unknown* (08/23/17 12:36 AM) Antibody Scrn Positive 1 (08/23/17 12:36 AM) AB Int Rhig Anti-D *Unknown* (08/23/17 12:36 AM) Path AB Transfusion Medicine Physician Services The patient is a 27 y/o at 35w2d with a medical history of bipolar disorder, asthma, and obesity of presents of contractions. Immunohematologic testing demonstrates the presence of an anti-D in this patient s serum. This antibody is directed against the D antigen of the "Rh" blood group system and is typically IgG in nature. Although usually considered clinically significant, the presence of this antibody most likely represents passive immunization due to Rh Immune Globulin administration (by history given at 30 weeks on 07/17/2017). Should RBC transfusion be required, Rh-negative crossmatch-compatible units will be issued. No difficulty in obtaining compatible blood is expected. The patient s electronic medical record has been reviewed for relevant information. I have reviewed the test results and concur with the resident's, Dr. Camp, interpretation. CPT: 77388-HC *NA* (08/23/17 12:36 AM) RBC product Product available (08/23/17 1:54 AM) 1Result Comment: 08/23/2017 04:06 [id number] "Significant Findings called to Marcy STEELE at 0404 by DOMENICO. Read Back OK." 08/23/2017 04:04 [id number] Patient has unexpected antibodies. Allow extra time for additional crossmatches.DRUG SCREEN Most recent to oldest [Reference Range]: 1 U Methadone Scr [Negative] Negative *NA* (08/23/17 2:03 AM) U Propoxyph Scr [Negative] Negative *NA* (08/23/17 2:03 AM) U Amph Scr [Negative] Negative *NA* (08/23/17 2:03 AM) U Cydney Scr [Negative] Negative *NA* (08/23/17 2:03 AM) U Benzodia Scr [Negative] Negative *NA* (08/23/17 2:03 AM) U Cocaine Scr [Negative] Negative *NA* (08/23/17 2:03 AM) U Opiate Scr [Negative] Negative *NA* (08/23/17 2:03 AM) U Phencyc Scr [Negative] Negative *NA* (08/23/17 2:03 AM) U Cannab Scr [Negative] Negative *NA* (08/23/17 2:03 AM) UDS Note See Note (08/23/17 2:03 AM) IMMUNOLOGY Most recent to oldest [Reference Range]: 1 Treponemal Scr [Non Reactive] Non Reactive *NA* (08/23/17 12:36 AM) HIV. [Negative] Negative *NA* (08/23/17 12:36 AM) Hep Bs Ag [Negative] Negative *NA* (08/23/17 12:36 AM) HEMATOLOGY Most recent to oldest [Reference Range]: 1 WBC [3.7-10.4 K/CMM] 13.4 K/CMM *HI* (08/23/17 12:36 AM) RBC [4.20-5.40 M/CMM] 4.09 M/CMM *LOW* (08/23/17 12:36 AM) Hgb [12.0-16.0 g/dL] 11.2 g/dL *LOW* (08/23/17 12:36 AM) Hct [36.0-48.0 %] 33.5 % *LOW* (08/23/17 12:36 AM) MCV [80.0-98.0 fL] 82.0 fL (08/23/17 12:36 AM) MCH [27.0-31.0 pg] 27.4 pg (08/23/17 12:36 AM) MCHC [32.0-36.0 g/dL] 33.5 g/dL (08/23/17 12:36 AM) RDW [11.5-14.5 %] 15.4 % *HI* (08/23/17 12:36 AM) Platelet [133-450 K/CMM] 215 K/CMM (08/23/17 12:36 AM) MPV [7.4-10.4 fL] 9.9 fL (08/23/17 12:36 AM) Segs [45.0-75.0 %] 73.2 % (08/23/17 12:36 AM) Lymphocytes [20.0-40.0 %] 18.6 % *LOW* (08/23/17 12:36 AM) Monocytes [2.0-12.0 %] 6.7 % (08/23/17 12:36 AM) Eosinophils [0.0-4.0 %] 1.1 % (08/23/17 12:36 AM) Basophils [0.0-1.0 %] 0.4 % (08/23/17 12:36 AM) Segs-Bands # [1.5-8.1 K/CMM] 9.8 K/CMM *HI* (08/23/17 12:36 AM) Lymphocytes # [1.0-5.5 K/CMM] 2.5 K/CMM (08/23/17 12:36 AM) Monocytes # [0.0-0.8 K/CMM] 0.9 K/CMM *HI* (08/23/17 12:36 AM) Eosinophils # [0.0-0.5 K/CMM] 0.2 K/CMM (08/23/17 12:36 AM) Basophils # [0.0-0.2 K/CMM] 0.1 K/CMM (08/23/17 12:36 AM) PT [12.0-14.7 seconds] 12.9 seconds (08/23/17 2:04 AM) INR [0.85-1.17] 0.97 (08/23/17 2:04 AM) Factor VIII [50-242 %] 255 % *HI* (08/23/17 12:36 AM) vWF Antigen [45-165 %] 213 % *HI* (08/23/17 2:04 AM) vWF Assay [45-140 %] 101 % (08/23/17 2:04 AM) PTT [22.9-35.8 seconds] 26.5 seconds (08/23/17 2:04 AM) Immunizations No data available for this section Procedures Procedure Date Related Diagnosis Body Site Tonsillectomy 2002 Appendectomy 1999 Cystectomy 1992 D&C - Dilatation and curettage Social History Social History Type Response Substance Abuse Use: None. Sexual Sexually active: Yes. Employment/School Highest education level: High school. Alcohol Never Smoking Status Former smoker; Exposure to Tobacco Smoke None; Cigarette Smoking Last 365 Days Yes; Reg Smoking Cessation Counseling No Assessment and Plan Extracted from: Title: Clinical Document Author: Marisabel Alfredo MD Date: Pt reports contractions have resolved. She reports normal movement. Cervix 4-5/60/-3, head not engaged. Has been seen by hematology, recommendations given. Will d/c home. Marisabel Alfredo MD PGY6 Extracted from: Title: Hematology Iniitial Consult Note Author: Ellie French MD Date: Patient: ARABELLA POLANCO Age: 27 years Sex: Female : 1990 Associated Diagnoses: None Author: Ellie French MD Chief Complaint 08/22/2017 23:32 36wk gestation c/o abd pain and vag bleeding. 08/22/2017 23:13 36wk gestation c/o abd pain and vag bleeding. History of Present Illness Ms. Polanco is a 27 yo at 35w2d by 8 wk sono with PMH of vWD (self reported), bipolar type 1, asthma, migraines, obesity, and substance abuse who was admtted on 08/23 for managment of contracti ons. We are being consulted for management of possible VWD if needed. On admission pt report 3 day hx frequent. intense contractions occurring every 3 min. 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 She has no family hx VWD or thrombosis. Denies any major bleedi ng but does report hx of frequent mild nose bleeds (only from left nare) and heavy menstrual cycles (no clots). She has never required a blood transfusion. She was in 2015 and gave vagin ally which she reports was w/o significant bleeding. During her in 2016 w/u for VWD was obtained which was without evidence of VWD. . She was told to f/u with hematology after giving but she states she did not f/u (however, states she was seen by a slasher tender helper while ). Pt reports she is doing well today. States last nose bleed was yesterday and lasted only seconds. Otherwise denies significant bleeding. Review of Systems Please see HPI. Otherwise neg. Health Status Allergies: Allergic Reactions (All) Severity Not Documented NKDA- No reactions were documented. TraMADol- No reactions were documented., Allergies (2) Active Reaction NKDA None Documented traMADol None Documented Current medications: (Selected) Inpatient Medications Ordered Lactated Ringers IV 1,000 mL: 125 ml/hr, IV, Stop: 09/22/17 0:03:00 POCKET AND PULLEY MACHINE OPERATOR antihemophilic factor-von Willebrand factor: 1,399 unit, 180 ml/hr, IV, ONCALL carboprost: 250 microgram, 1 mL, IM, ONCALL citric acid-sodium citrate: 30 mL, PO, ONCALL famotidine: 20 mg, 2 mL, IVP, ONCALL fentaNYL (PF) 20 mcg/ml FACING END TRIMMER (600 microgram /30 mL) 600 microgram: Per FACING END TRIMMER Order as Directed, IV, Stop: 09/22/17 4:33:00 POCKET AND PULLEY MACHINE OPERATOR ibuprofen: 600 mg, 1 tab, PO, Q6H, PRN: Other -See Comment lidocaine 1% injectable solution: 2.5 mg, 0.25 mL, INTRADERM, PRN, PRN: Other - See Comment lidocaine 1%: 200 mg, 20 mL, PERCUT, PRN, PRN: Other -See Comment methylergonovine: 0.2 mg, 1 mL, IM, ONCALL misoprostol: 1,000 microgram, 5 tab, NJ, ONCALL naloxone: 0.04 mg, 0.1 mL, IVP, Q2MIN, PRN: Narcotic Reversal ondansetron: 4 mg, 2 mL, IVP, Q8H, PRN: Nausea & Vomiting oxytocin 30 units in NS 500ml (Titrate) IV 30 unit: 42 ml/hr, IV, Stop: 0:03:00 POCKET AND PULLEY MACHINE OPERATOR penicillin G potassium: 2,500,000 unit, 50 mL, 100 ml/hr, IVPB, ABXQ4H terbutaline: 0.25 mg, 0.25 mL, SUB-Q, PRN, PRN: Other -See Comment Prescriptions Prescribed docusate sodium 100 mg oral capsule: 100 mg, 1 cap, PO, BID, PRN: Constipation , 30 cap, 1 Refill(s) ferrous sulfate 325 mg oral enteric coated tablet: 325 mg, 1 tab, PO, Daily, 30 tab, 0 Refill(s) ibuprofen 800 mg oral tablet: 800 mg, 1 tab, PO, Q8H, PRN: Pain Score 7-10, 30 tab, 0 Refill(s) Documented Medications Documented Multivitamins with Folic Acid 0.8 mg oral kit: 0 Refill(s), Medications (16) Active Scheduled: (7) carboprost 250 microgram/1 ml AMP 250 microgram 1 mL, IM, ONCALL citric acid-sodium citrate 15ml LIQ ud 30 mL, PO, ONCALL famotidine 20 mg/2 ml INJ VL 20 mg 2 mL, IVP, ONCALL Humate-P (antihemophilic factor) 100 unit INJ 1,399 unit, IV, ONCALL methylergonovine 0.2 mg/1 ml INJ AMP 0.2 mg 1 mL, IM, ONCALL misoprostol 200 microgram TAB 1,000 microgram 5 tab, NJ, ONCALL PENIcillin G potassium 2.5MiUnit/NS 50ml 2,500,000 unit 50 mL, IVPB, ABXQ4H Continuous: (3) fentaNYL FACING END TRIMMER 20 micrograms/ml 30 ml 600 microgram 600 microgram 30 mL, IV Lactated Ringers 1,000 mL 1,000 mL, IV, 125 ml/hr oxytocin 30 units/NS 500 ml 30 unit 30 unit 500 mL, IV, 42 ml/hr PRN: (6) ibuprofen 600 mg TAB 600 mg 1 tab, PO, Q6H lidocaine 1% 20 ml INJ VL 2.5 mg 0.25 mL, INTRADERM, PRN lidocaine 1% 20 ml INJ VL 200 mg 20 mL, PERCUT, PRN naloxone 0.4 mg/ml 1ml INJ vial 0.04 mg 0.1 mL, IVP, Q2MIN ondansetron 4 mg/2ml INJ VL 4 mg 2 mL, IVP, Q8H terbutaline 1 mg/1 mL INJ 0.25 mg 0.25 mL, SUB-Q, PRN Problem list: All Problems Asthma / SNOMED CT [id number] / Confirmed / SNOMED CT 720515554 / Confirmed Premature labor / SNOMED CT 53123974 / Confirmed Von Willebrand disease / SNOMED CT [id number] / Confirmed, Active Problems (4) Asthma Premature labor Von Willebrand disease Histories Past Medical History: Active Von Willebrand disease ([id number]) Asthma ([id number]) Resolved ([id number]): Onset on 03/27/2015 at 25 years. Resolved on 12/04/2015 at 25 years. ([id number]): Onset on 01/24/2012 at 21 years. Resolved on 10/23/2012 at 22 years. ([id number]): Onset on 05/07/2011 at 21 years. Resolved on 08/06/2011 at 21 years. Chlamydia (10975290): Resolved. Bipolar 1 disorder (0913067939): Resolved. Family History: High blood pressure Mother Grandparent DM - Diabetes mellitus Mother Cancer of prostate Grandparent Procedure history: Tonsillectomy ([id number]) in 2002 at 13 Years. Appendectomy (004168600) in 1999 at 10 Years. Cystectomy (0524089361) in 1992 at 3 Years. D&C - Dilatation and curettage ([id number]). Social History Social & Psychosocial Habits Alcohol 09/19/2015 Use: Never 12/08/2015 Use: Past 08/02/2017 Use: Never Employment/School 09/19/2015 Highest education: High school Sexual 09/19/2015 History of sexual abuse: No 08/02/2017 Sexually active: Yes Substance Abuse 09/19/2015 Use: None 08/02/2017 Use: None Tobacco 12/01/2015 Use: Former smoker Type: Cigarettes Exposure to Tobacco Smoke None Cigarette Smoking Last 365 Days No Reg Smoking Cessation Counseling No 12/08/2015 Use: Former smoker Previous treatment: None Ready to change: No Concerns about tobacco use in household: No Exposure to Tobacco Smoke None Cigarette Smoking Last 365 Days No Reg Smoking Cessation Counseling No 08/02/2017 Use: Former smoker Type: Cigarettes Started at age: 16.0 Years Stopped at age: 24 Years Ready to change: No Concerns about tobacco use in household: No Exposure to Tobacco Smoke None Cigarette Smoking Last 365 Days No Reg Smoking Cessation Counseling Yes 08/22/2017 Use: Former smoker Exposure to Tobacco Smoke None Cigarette Smoking Last 365 Days Yes Reg Smoking Cessation Counseling No . Physical Examination VS/Measurements Measurements from flowsheet : Measurements 08/23/2017 01:47 Heparin Dosing Weight (kg) 63.95 08/23/2017 01:47 Height 154.94 cm Height Collection Method Stated Weight 88.182 kg Dosing Weight Difference Percent 0 % Dosing Weight Collection Method Estimated Body Surface Area 1.9481 m2 Body Mass Index 36.73 m2 08/22/2017 23:34 Heparin Dosing Weight (kg) 63.95 08/22/2017 23:32 Height 154.94 cm Height Collection Method Stated Weight 88.182 kg Dosing Weight Difference Percent 3.744 % Dosing Weight Collection Method Estimated Body Surface Area 1.9481 m2 Body Mass Index 36.73 m2 , Vital Signs (last 24 hrs) Last Charted Temp Oral 97.6 DegF (AUG 23 04:30) Heart Rate Peripheral 78 bpm (AUG 22 23:32) Resp Rate 18 BRMIN (AUG 22 23:32) SBP 114 mmHg (AUG 23 05:) DBP 67 mmHg (AUG 23:) SpO2 L 84 % (AUG 23:) Weight 88.182 kg (AUG 23) Height 154.94 cm (AUG 23) BMI 36.73 (AUG 23) Labs Most Recent Results Previous Results Previous Results Previous Results WBC H 13.4 (AUG 23) -- -- -- Hgb L 11.2 (AUG 23) -- -- -- Hct L 33.5 (AUG 23) -- -- -- Plt 215 (AUG 23) -- -- -- PT 12.9 (AUG 23) -- -- -- INR 0.97 (AUG 23) -- -- -- PTT 26.5 (AUG 23) -- -- -- Impression and Plan Ms. Polanco is a 27 yo at 35w2d by 8 wk salma with PMH of vWD (self reported), bipolar type 1, asthma, migraines, obesity, and substance abuse who was admtted on 08/23 for managment of contracti ons. We are being consulted for management of possible VWD if needed. VWD (self-reported) Pt report hx of VWD dx at age 8 and hx of nose bleeds and menstrual cycles. She reports no hx of major bleeding or need for transfusion. However, no diagnostic evidence to confirm this dx. W/u obtained in 2016 while she was was notable for elevated VWF ag , VWF R;Co levels and normal factor VIII level and normal coags. However, falsely elevated levels of VWF can be seen in and these levels will need to be repeated after pt has given . Recs: -No need for Humate-P if having vaginal . Okay for pt to have epidural for pain control. -If patient requires emergent , we recommend against empiric Humate-P as pt dx of VWD has not been confirmed. However if significant bleeding occurs we recommend given Humate-P 30units/kg x1 and contacting our team -Pt will need to f/u with Dr. Sánchez in the Hematology clinic to repeat w/u for VWD after given (as mentioned prior, in vwf levels can be falsely elevated). Please have pt call the clin ic at [phone] to arrange an appointment for 3 months after given . Pt comanaged with Dr. Greene and Dr. Sánchez. Please see Attn attestation. We will sign off at this time but please contact our team if any new hematological issues arise. Addendum by Guevara Greene MD on I saw and examined the patient with 08/23/2017 23:03 French and agree with findings, assessement and plan, as depicted in the fellow s note.
--- OUTSIDE RECORDS SUMMARY | 2018-11-02 11:49 | XMS REPORT | Summary of Care ---
:1990 Author Organization [facility] Address [address] [place], [place] [address]- Encounter HQ [employer](FIN) [id number] Date(s): 12/08/15 - 12/08/[address] Professional Services provided by [facility] [place] [address]- Discharge Disposition: Home Attending Physician: Traci Chen MD Admitting Physician: Traci Chen MD Vital Signs Most recent to oldest [Reference Range]: 1 Height 154.94 cm (12/08/15 11:09 AM) Temperature Oral [96.4-99.1 DegF] 98.4 DegF (12/08/15 11:11 AM) Blood Pressure [90-140/60-90 mmHg] 123/67 mmHg (12/08/15 11:11 AM) Respiratory Rate [14-20 BRMIN] 20 BRMIN (12/08/15 11:11 AM) Peripheral Pulse Rate [60-100 bpm] 64 bpm (12/08/15 11:11 AM) Weight 77.273 kg (12/08/15 11:09 AM) Body Mass Index 32.19 m2 (12/08/15 11:09 AM) Problem List Condition Effective Dates Status Health Status Informant Asthma(Confirmed) Active Chlamydia(Confirmed) Resolved (Confirmed) 01/24/12 - 10/23/12 Resolved (Confirmed) 05/07/11 - 08/06/11 Resolved (Confirmed) 03/27/15 - 12/04/15 Resolved Von Willebrand disease(Confirmed) Active Allergies, Adverse Reactions, Alerts Substance Reaction Severity Status NKDA Active traMADol Active Medications No data available for this section Results No data available for this section Immunizations No data available for this section Procedures Procedure Date Related Diagnosis Body Site Tonsillectomy 2003 Appendectomy 1999 Cystectomy 1992 Social History Social History Type Response Substance Abuse Use: None. Sexual History of sexual abuse: No. Employment/School Highest education level: High school. Alcohol Past Smoking Status Former smoker; Previous treatment: None; Ready to change: No; Concerns about tobacco use in household: No; Exposure to Tobacco Smoke None; Cigarette Smoking Last 365 Days No; Reg Smoking Cessation Counseling No Assessment and Plan Extracted from: Title: Clinical Document Author: Shamika Torrez MD Date: 12/08/15 R2 Triage H&P CC: chest pain HPI: Patient is a 25 yo s/p PTSVD at 36 wks PPD# 4 with ?vWD who presents to triage complaining of chest pain this morning. Patient reports she woke up and had chest pain that lasted for about 2 mins. The pain was sharp and in the middle of her chest. Pain did not radiate. She also had some numbness on her left side that also lasted for a minute. Both have resolved. She denies SOB. patient jus t wanted to make sure everything is ok so she presents to triage. Patient is without any issues. Vaginal bleeding has decreased. Mood is stable. Baby is doing well in NICU and may be discharged today. Denies fever, chills, N/V, headaches, vision changes, OB hx: * 2010 - SAB at 13 wks ,D&C * 2012 - term, female, 7 lb 13 oz, , [place], + epi, shoulder dystocia? 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 Gen: NAD CV: RRR Resp: CTAB, No CVAT Abd: soft, NTTP Ext: No c/c/e A/P: Patient is a 25 yo s/p PTSVD at 36 wks PPD# 4 with ?vWD who presents to triage complaining of chest pain * Chest pain: Lasted 3 mins with numbness that lasted about 2 min this morning. Denies any sxs currently. VSS wnl. 97% o2 sat on RA. Neuro exam wnl. Rest of exam unremarkable. ER precautions given. * F/u at OB clinic as scheduled. * D/w Dr. Miguel Torrez, PGY-2
--- OUTSIDE RECORDS SUMMARY | 2018-11-02 11:49 | XMS REPORT | Summary of Care ---
:1990 Author Organization [facility] Address [address], [place] [address]- Encounter HQ Encntr_clovis(FIN) [id number] Date(s): 12/04/15 - 12/06/15 [facility] [address] [place] [address] Professional Services provided by [facility] [place], [place] [address]- Discharge Disposition: Home Attending Physician: Soy Villeda MD Admitting Physician: Soy Villeda MD Vital Signs Most recent to oldest 1 2 3 [Reference Range]: Height 154.94 cm (12/04/15 9:22 AM) Temperature Oral [96.4-99.1 97.4 DegF 97.9 DegF 98.6 DegF DegF] (12/06/15 12:00 AM) (12/05/15 3:35 PM) (12/05/15 9:55 AM) Blood Pressure [90-140/60-90 124/81 mmHg 110/63 mmHg 125/67 mmHg mmHg] (12/06/15 12:00 AM) (12/05/15 3:35 PM) (12/05/15 9:55 AM) Respiratory Rate [14-20 BRMIN] 18 BRMIN 18 BRMIN 18 BRMIN (12/06/15 12:00 AM) (12/05/15 3:35 PM) (12/05/15 9:55 AM) Peripheral Pulse Rate [60-100 76 bpm 67 bpm 80 bpm bpm] (12/06/15 12:00 AM) (12/05/15 3:35 PM) (12/05/15 9:55 AM) Weight 87.727 kg (12/04/15 9:22 AM) Body Mass Index 36.54 m2 (12/04/15 9:22 AM) Problem List Condition Effective Dates Status Health Status Informant Asthma(Confirmed) Active Chlamydia(Confirmed) Resolved (Confirmed) 01/24/12 - 10/23/12 Resolved (Confirmed) 05/07/11 - 08/06/11 Resolved (Confirmed) 03/27/15 - 12/04/15 Resolved Von Willebrand disease(Confirmed) Active Allergies, Adverse Reactions, Alerts Substance Reaction Severity Status NKDA Active traMADol Active Medications acetaminophen 650 mg, 2 tab, Route: PO, Drug form: TAB, Q4H, Dosing Weight 87.727, kg, PRN Pain Score 1-3, Start date: 12/04/15 16:36:00 CDT, Duration: 30 day, Stop date: 01/03/16 16:35:00 CDT Notes: Do not exceed 4 gm/day. (Same as: Tylenol) Start Date: 12/04/15 Stop Date: 12/06/15 Status: Discontinuedbetamethasone 12 mg, 2 mL, Route: IM, Drug form: INJ, Q24H, Dosing Weight 87.727, kg, Start date: 12/04/15 14:00:00 CDT, Duration: 2 doses or times, Stop date: 12/05/15 14: 00:00 CDT Notes: (betamethasone acetate-sodium phosphate 6 mg/ml INJ) (Same As: Celestone Soluspan) Start Date: 12/04/15 Stop Date: 12/05/15 Status: Completedbisacodyl 10 mg, 1 supp, Route: LA, Drug form: SUPP, PRN, Dosing Weight 87.727, kg, PRN Other -See Comment, Start date: 12/04/15 16:36:00 CDT, Duration: 30 day, Stop date: 01/03/16 16:35:00 CDT Notes: (Same As: Dulcolax, Bisco-Lax) Start Date: 12/04/15 Stop Date: 12/06/15 Status: Discontinuedbisacodyl 15 mg, 3 tab, Route: PO, Drug form: ECTAB, Daily, Dosing Weight 87.727, kg, PRN Other -See Comment, Start date: 12/04/15 16:36:00 CDT, Duration: 30 day, Stop date: 01/03/16 16:35:00 CDT Notes: (Same As: Dulcolax, Correctol) (Do Not Crush) "Do Not Crush" Start Date: 12/04/15 Stop Date: 12/06/15 Status: Discontinuedbutorphanol 1 mg, 0.5 mL, Route: IVP, Drug form: INJ, Q2H, Dosing Weight 88.636, kg, PRN Pain Score 1-5, Start date: 12/04/15 9:05:00 CDT, Duration: 30 day, Stop date: 01/03/16 9:04:00 CDT Notes: (Same As: Stadol) MEDICATION WASTE Product Size: 2 mgProduct Wasted: ___ mg Start Date: 12/04/15 Stop Date: 12/04/15 Status: Discontinuedbutorphanol 2 mg, 1 mL, Route: IVP, Drug form: INJ, Q2H, Dosing Weight 88.636, kg, PRN Pain Score 6-10, Start date: 12/04/15 9:05:00 CDT, Duration: 30 day, Stop date: 01/02 9:04:00 CDT Notes: (Same As: Stadol) MEDICATION WASTE Product Size: 2 mgProduct Wasted: ___ mg Start Date: 12/04/15 Stop Date: 12/04/15 Status: Discontinuedcarboprost 250 microgram, 1 mL, Route: IM, Drug form: INJ, ONCALL, Dosing Weight 88.636, kg , Start date: 12/04/15 10:00:00 CDT, Duration: 30 day, Stop date: 01/03/16 9:59: 00 CDT Notes: (Same As: Hemabate) Start Date: 12/04/15 Stop Date: 12/04/15 Status: Discontinuedcitric acid-sodium citrate 30 mL, Route: PO, Drug Form: SOLN, Dosing Weight 88.636, kg, ONCALL, Start date : 12/04/15 10:00:00 CDT, Duration: 30 day, Stop date: 01/03/16 9:59:00 CDT Notes: (Same As: Yari Byrnesra-2) Sodium citrate-citric acid (500-334 mg/5 mL) : 1 mL contains sodium 1 mEq/mL and bicarbonate 1 mEq/mL Start Date: 12/04/15 Stop Date: 12/04/15 Status: DiscontinuedDepo-Provera 150 mg, 1 mL, Route: IM, Drug form: INJ, ONCE, Dosing Weight 87.727, kg, Start date: 12/06/15 6:19:00 CDT, Stop date: 12/06/15 6:19:00 CDT Notes: (Same as: Depo-Provera)This is NOT Depo-SubQ Provera 104For IM use only MEDICATION WASTEProduct Size: 150 mgProduct Wasted: ___ mg Start Date: 12/06/15 Stop Date: 12/06/15 Status: CompletedDermoplast 20% topical spray 1 spray, Route: TOP, PRN, Drug form: SPRY, PRN Irritation, Start date: 12/04/15 16:36:00 CDT, Duration: 30 day, Stop date: 01/03/16 16:35:00 CDT Notes: (Same As: Dermoplast)WASTE: Aerosol - Return to Pharmacy FOR EXTERNAL USE ONLY Start Date: 12/04/15 Stop Date: 12/06/15 Status: Discontinueddiphtheria/pertussis, acel/tetanus adult 0.5 mL, Route: IM, Drug Form: SUSP, Dosing Weight 87.727, kg, ONCALL, Start date : 12/04/15 17:00:00 CDT, Duration: 1 doses or times Notes: (Tdap ) For Adolecent and Adult use For IM Use. Same as: Adacel (Tdap) Start Date: 12/04/15 Stop Date: 12/06/15 Status: Discontinueddocusate 100 mg, 1 cap, Route: PO, Drug form: CAP, BID, Dosing Weight 87.727, kg, PRN Constipation, Start date: 12/04/15 16:36:00 CDT, Duration: 30 day, Stop date: 16:35:00 CDT Notes: (Same as: Colace) (Do Not Crush) Start Date: 12/04/15 Stop Date: 12/06/15 Status: Discontinueddocusate sodium 100 mg oral capsule 100 mg=1 cap, PO, BID, PRN Constipation, # 30 cap, 1 Refill(s) Start Date: 12/06/15 Status: Orderedfamotidine 20 mg, 2 mL, Route: IVP, Drug form: INJ, ONCALL, Dosing Weight 88.636, kg, Start date: 12/04/15 10:00:00 CDT, Duration: 30 day, Stop date: 01/03/16 9:59: 00 CDT Notes: (Same as: Pepcid)Can be dilute in 5-10cc NS IVP: Slow IV push over at least 2 minutes. Start Date: 12/04/15 Stop Date: 12/04/15 Status: Discontinuedferrous sulfate 325 mg oral enteric coated tablet 325 mg=1 tab, PO, Daily, # 30 tab, 0 Refill(s) Start Date: 12/06/15 Status: Orderedibuprofen 600 mg, 1 tab, Route: PO, Drug form: TAB, Q6H, Dosing Weight 87.727, kg, PRN Pain Score 4-6, Start date: 12/04/15 16:36:00 CDT, Duration: 30 day, Stop date: 01/03/16 16:35:00 CDT Notes: (Same as: Motrin)"Do Not Crush" Take with food. Start Date: 12/04/15 Stop Date: 12/06/15 Status: Discontinuedibuprofen 800 mg, 1 tab, Route: PO, Drug form: TAB, Q8H, Dosing Weight 87.727, kg, PRN Pain Score 7-10, Start date: 12/04/15 16:36:00 CDT, Duration: 30 day, Stop date : 01/03/16 16:35:00 CDT Notes: (Same as: Motrin)"Do Not Crush" Take with food. Start Date: 12/04/15 Stop Date: 12/06/15 Status: Discontinuedibuprofen 800 mg oral tablet 800 mg=1 tab, PO, Q8H, PRN Pain Score 7-10, # 30 tab, 0 Refill(s) Start Date: 12/06/15 Status: OrderedLactated Ringers (Bolus) IV 1,000 mL, 1,000 ml/hr, Infuse Over: 1 hr, Route: IV, 1,000, Drug form: INJ, ONCE , Dosing Weight 88.636 kg, Start date: 12/04/15 9:05:00 CDT, Stop date: 9:05:00 CDT, Bolus for regional anesthesia per unit protocol Start Date: 12/04/15 Stop Date: 12/04/15 Status: CompletedLactated Ringers IV 1,000 mL 1,000 mL, Rate: 100 ml/hr, Infuse over: 10 hr, Route: IV, Dosing Weight 87.727 kg, Total Volume: 1,000, Start date: 12/04/15 16:36:00 CDT, Duration: 30 day, Stop date: 01/03/16 16:35:00 CDT Start Date: 12/04/15 Stop Date: 12/06/15 Status: DiscontinuedLactated Ringers IV 1,000 mL 1,000 mL, Rate: 125 ml/hr, Infuse over: 8 hr, Route: IV, Dosing Weight 88.636 kg , Total Volume: 1,000, Start date: 12/04/15 9:05:00 CDT, Duration: 30 day, Stop date: 01/03/16 9:04:00 CDT Start Date: 12/04/15 Stop Date: 12/04/15 Status: Discontinuedlanolin topical 1 appl, Route: TOP, PRN, Drug form: OINT, PRN Other -See Comment, Start date: 16:36:00 CDT,Duration: 30 day, Stop date: 01/03/16 16:35:00 CDT Notes: (Same as:Lanolin) Start Date: 12/04/15 Stop Date: 12/06/15 Status: Discontinuedlidocaine 1% 200 mg, 20 mL, Route: PERCUT, Drug Form: INJ, Dosing Weight 88.636, kg, PRN, PRN Other -See Comment,Start date: 12/04/15 9:05:00 CDT, Duration: 1 doses or times, Stop date: Limited # of times Notes: (Same as: Xylocaine) Start Date: 12/04/15 Stop Date: 12/04/15 Status: Discontinuedlidocaine 1% injectable solution 2.5 mg, 0.25 mL, Route: INTRADERM, Drug Form: INJ, Dosing Weight 88.636, kg, PRN , PRN Other -See Comment, Start date: 12/04/15 9:05:00 CDT, Duration: 30 day, Stop date: 01/03/16 9:04:00 CDT Notes: (Same as: Xylocaine) Start Date: 12/04/15 Stop Date: 12/04/15 Status: EainnerqepqrV-Y-V II 0.5 mL, Route: SUB-Q, Drug Form: PDR/INJ, Dosing Weight 87.727, kg, ONCALL, Give only if patient rubella non-immune, Start date: 12/04/15 17:00:00 CDT, Duration: 1 doses or times Notes: (Same as: M-M-R II) (amerxjd-bonmy-trjoyzh virus vaccine 0.5 ml INJ VL) WASTE: F/P - Red; E -Red GIVE PRIOR TO DISCHARGE Start Date: 12/04/15 Stop Date: 12/06/15 Status: DiscontinuedMacrobid 100 mg oral capsule 100 mg=1 cap, PO, BID, X 7 day, # 14 cap, 0 Refill(s) Start Date: 12/06/15 Stop Date: 12/13/15 Status: Orderedmethylergonovine 0.2 mg, 1 mL, Route: IM, Drug form: INJ, PRN, Dosing Weight 87.727, kg, PRN Other -See Comment, Start date: 12/04/15 16:36:00 CDT, Duration: 30 day, Stop date: 01/03/16 16:35:00 CDT Notes: (Same as:Methergine) Start Date: 12/04/15 Stop Date: 12/06/15 Status: Discontinuedmethylergonovine 0.2 mg, 1 mL, Route: IM, Drug form: INJ, ONCALL, Dosing Weight 88.636, kg, Start date: 12/04/15 10:00:00 CDT, Duration: 30 day, Stop date: 01/03/16 9:59: 00 CDT Notes: (Same as:Methergine) Start Date: 12/04/15 Stop Date: 12/04/15 Status: Discontinuedmisoprostol 1,000 microgram, 5 tab, Route: LA, Drug form: TAB, ONCALL, Dosing Weight 88.636 , kg, Start date: 12/04/15 10:00:00 CDT, Duration: 1 doses or times Notes: (Same as:Cytotec) Take with food Start Date: 12/04/15 Stop Date: 12/04/15 Status: Discontinuedondansetron 4 mg, 2 mL, Route: IVP, Drug form: INJ, Q8H, Dosing Weight 87.727, kg, PRN Nausea & Vomiting, Start date: 12/04/15 16:36:00 CDT, Duration: 30 day, Stop date: 01/03/16 16:35:00 CDT Notes: (Same as: Beba) MEDICATION WASTE Product Size: 4 mgProduct Wasted: ___ mg Start Date: 12/04/15 Stop Date: 12/06/15 Status: Discontinuedondansetron 4 mg, 2 mL, Route: IVP, Drug form: INJ, Q8H, Dosing Weight 88.636, kg, PRN Nausea & Vomiting, Start date: 12/04/15 9:05:00 CDT, Duration: 30 day, Stop date: 01/03/16 9:04:00 CDT Notes: (Same as: Beba) MEDICATION WASTE Product Size: 4 mgProduct Wasted: ___ mg Start Date: 12/04/15 Stop Date: 12/04/15 Status: Discontinuedoxytocin 30 units in LR 500 mL 30 unit 30 unit, 500 mL, Rate: 42 ml/hr, Infuse over: 11.9 hr, Dosing Weight 87.727, kg , Route: IV, Total Volume: 500 mL, Start date: 12/04/15 16:36:00 CDT, Duration: 2 doses or times, Stop date: 12/05/15 16:23:00 CDT, Replace Every: 11.9 hr Notes: (Same as: OXYTOCIN-D5LR) Start Date: 12/04/15 Stop Date: 12/05/15 Status: Completedoxytocin 30 units in LR 500 mL 30 unit 30 unit, 500 mL, Rate: 42 ml/hr, Infuse over: 11.9 hr, Dosing Weight 88.636, kg , Route: IV, Total Volume: 500 mL, Start date: 12/04/15 9:05:00 CDT, Duration: 2 day, Stop date: 12/06/15 9:04:00 CDT, Replace Every: 11.9 hr Notes: (Same as: OXYTOCIN-D5LR) Start Date: 12/04/15 Stop Date: 12/04/15 Status: Discontinuedoxytocin 30 units in LR 500 mL 30 unit 30 unit, 500 mL, Rate: Titrate, Dosing Weight 87.727, kg, Route: IV, Total Volume: 500 mL, Start date: 12/04/15 13:04:00 CDT, Duration: 2 day, Stop date: 12/06/15 13:03:00 CDT, Replace Every: 24 hr Notes: (Same as: OXYTOCIN-D5LR) Start Date: 12/04/15 Stop Date: 12/04/15 Status: Discontinuedpenicillin G potassium + Sodium Chloride 0.9% IV 50 mL 2,500,000 unit, Route: IVPB, Drug form: PDR/INJ, ABXQ4H, Dosing Weight 88.636, kg, Start date: 12/04/15 14:00:00 CDT, Duration: 30 day, Stop date: 01/03/16 10: 00:00 CDT Notes: (Same as: Pfizerpen) MEDICATION WASTE Product Size: 5,000,000 unitProduct Wasted: ___ unit Start Date: 12/04/15 Stop Date: 12/04/15 Status: Discontinuedpenicillin G potassium 5,000,000 units injection 5,000,000 unit, Route: IVPB, Drug form: PDR/INJ, ONCALL, Dosing Weight 88.636, kg, Start date: 12/04/15 10:00:00 CDT Notes: (Same as: Pfizerpen) MEDICATION WASTE Product Size: 5,000,000 unitProduct Wasted: ___ unit Start Date: 12/04/15 Stop Date: 12/04/15 Status: CompletedPrenatal Multivitamins oral tablet 1 tab, Route: PO, Drug Form: TAB, Dosing Weight 87.727, kg, Daily, Start date: 12/05/15 9:00:00 CDT,Duration: 30 day, Stop date: 01/03/16 9:00:00 CDT Start Date: 12/05/15 Stop Date: 12/06/15 Status: DiscontinuedSodium Chloride 0.9% (titrate) 250 mL 250 mL, Rate: call or contact centre manager for use with blood product administration, Dosing Weight 88.636, kg, Route: IV, Total Volume: 250, Start Date: 12/04/15 9:06:00 CDT, Duration: 30 day, Stop date: 01/03/16 9:05:00 CDT, Replace Every: 24 hr Start Date: 12/04/15 Stop Date: 12/06/15 Status: Discontinuedterbutaline 0.25 mg, 0.25 mL, Route: SUB-Q, Drug form: INJ, PRN, Dosing Weight 88.636, kg, PRN Other -See Comment, Start date: 12/04/15 9:05:00 CDT, Duration: 1 doses or times, Stop date: Limited # of times Notes: DO NOT USE IN REAL ESTATE OFFICER AREA(Same As: Brenda) Start Date: 12/04/15 Stop Date: 12/04/15 Status: Discontinuedtramadol 50 mg oral tablet 50 mg, Route: PO, Drug form: TAB, Q6H, Dosing Weight 87.727, kg, PRN Pain Score 1-3, Start date: 12/05/15 1:38:00 CDT, Duration: 30 day, Stop date: 01/04/16 1: 37:00 CDT Start Date: 12/05/15 Stop Date: 12/05/15 Status: DiscontinuedTylenol with Codeine #3 oral tablet 1 tab, Route: PO, Drug Form: TAB, Dosing Weight 87.727, kg, Q4H, PRN Pain Score 1-3, Start date: 12/05/15 1:40:00 CDT, Duration: 30 day, Stop date: 01/04/16 1: 39:00 CDT Notes: Do not exceed 4gm/day of acetaminophen. (Same as: Tylenol with Codeine # 3) Start Date: 12/05/15 Stop Date: 12/06/15 Status: Discontinuedzolpidem 5 mg, 1 tab, Route: PO, Drug form: TAB, Bedtime, Dosing Weight 87.727, kg, PRN Sleep, Start date: 12/04/15 16:36:00 CDT, Duration: 30 day, Stop date: 01/03/16 16:35:00 CDT Notes: (Same As: Izzy) Start Date: 12/04/15 Stop Date: 12/06/15 Status: Discontinued Results BLOOD BANK RESULTS Most recent to oldest [Reference 1 2 Range]: ABO/Rh A NEG *Unknown* (12/04/15 9:37 AM) Antibody Scrn Positive 1 (12/04/15 9:37 AM) AB Int Anti-D *Unknown* (12/04/15 9:37 AM) Path AB Blood Bank Physician Service 25 yo female recieved Rhogam on 08/16/2016. Immunohematologic testing demonstrates the presence of an anti-D in this patient s serum. This antibody is directed against the D antigen of the "Rh" blood group system and is typically IgG in nature. Although usually considered clinically significant, the presence of this antibody most likely represents passive immunization due to Rh Immune Globulin administration (by history given on08/16/2016). Should RBC transfusion be required, Rh-negative crossmatch-compatible units will be issued. No difficulty in obtaining compatible blood is expected. The patient s electronic medical record has been reviewed for relevant information. I have reviewed the test results and concur with the resident Dr. Fany Fletcher 's interpretation. CPT: 43487-CW *NA* (12/04/15 9:37 AM) RBC product Product available (12/04/15 9:06 AM) 1Result Comment: 12/04/2015 11:48 [email or web address] "Significant Findings called to Estephania Metzger at 1145 by Hanna. Read Back OK." Positive Antibody Screen. Please allow additional time for crossmatches.URINE AND STOOL Most recent to oldest [Reference Range]: 1 2 UA Turbidity [Clear] Clear (12/04/15 10:43 AM) UA Color [Yellow] Yellow *NA* (12/04/15 10:43 AM) UA pH [5.0-8.0] 6.5 (12/04/15 10:43 AM) UA Spec Grav [<=1.030] 1.017 (12/04/15 10:43 AM) UA Glucose [Negative mg/dL] Negative mg/dL *NA* (12/04/15 10:43 AM) UA Blood [Negative] Large *ABN* (12/04/15 10:43 AM) UA Ketones [Negative mg/dL] Negative mg/dL *NA* (12/04/15 10:43 AM) UA Protein [Negative mg/dL] 20 mg/dL *ABN* (12/04/15 10:43 AM) UA Urobilinogen [0.1-1.0 mg/dL] <=1.0 mg/dL *NA* (12/04/15 10:43 AM) UA Bili [Negative] Negative *NA* (12/04/15 10:43 AM) UA Leuk Est [Negative] Trace *ABN* (12/04/15 10:43 AM) UA Nitrite [Negative] Negative (12/04/15 10:43 AM) UA WBC [0-5 /HPF] 4 /HPF (12/04/15 10:43 AM) UA RBC [0-2 /HPF] 1 /HPF (12/04/15 10:43 AM) UA Bacteria [None Seen /HPF] Occasional /HPF *NA* (12/04/15 10:43 AM) UA Sq Epi [Few /LPF] Many /LPF *ABN* (12/04/15 10:43 AM) UA Mucus [None Seen /LPF] Few /LPF *NA* (12/04/15 10:43 AM) IMMUNOLOGY Most recent to oldest [Reference Range]: 1 2 Treponemal Scr [Non Reactive] Non Reactive *NA* (12/04/15 9:37 AM) HIV. [Negative] Negative *NA* (12/04/15 9:37 AM) Hep Bs Ag [Negative] Negative *NA* (12/04/15 9:37 AM) HEMATOLOGY Most recent to oldest [Reference Range]: 1 2 WBC [3.7-10.4 K/CMM] 18.6 K/CMM *HI* (12/04/15 9:37 AM) RBC [4.20-5.40 M/CMM] 3.96 M/CMM *LOW* (12/04/15 9:37 AM) Hgb [12.0-16.0 g/dL] 10.8 g/dL 10.7 g/dL *LOW* *LOW* (12/05/15 5:10 AM) (12/04/15 9:37 AM) Hct [36.0-48.0 %] 32.2 % 33.0 % *LOW* *LOW* (12/05/15 5:10 AM) (12/04/15 9:37 AM) MCV [80.0-98.0 fL] 83.4 fL (12/04/15 9:37 AM) MCH [27.0-31.0 pg] 26.9 pg *LOW* (12/04/15 9:37 AM) MCHC [32.0-36.0 g/dL] 32.3 g/dL (12/04/15 9:37 AM) RDW [11.5-14.5 %] 14.8 % *HI* (12/04/15 9:37 AM) Platelet [133-450 K/CMM] 232 K/CMM (12/04/15 9:37 AM) MPV [7.4-10.4 fL] 9.3 fL (12/04/15 9:37 AM) Segs [45.0-75.0 %] 81.9 % *HI* (12/04/15 9:37 AM) Lymphocytes [20.0-40.0 %] 10.7 % *LOW* (12/04/15 9:37 AM) Monocytes [2.0-12.0 %] 6.3 % (12/04/15 9:37 AM) Eosinophils [0.0-4.0 %] 0.8 % (12/04/15 9:37 AM) Basophils [0.0-1.0 %] 0.3 % (12/04/15 9:37 AM) Segs-Bands # [1.5-8.1 K/CMM] 15.3 K/CMM *HI* (12/04/15 9:37 AM) Lymphocytes # [1.0-5.5 K/CMM] 2.0 K/CMM (12/04/15 9:37 AM) Monocytes # [0.0-0.8 K/CMM] 1.2 K/CMM *HI* (12/04/15 9:37 AM) Eosinophils # [0.0-0.5 K/CMM] 0.1 K/CMM (12/04/15 9:37 AM) Basophils # [0.0-0.2 K/CMM] 0.1 K/CMM (12/04/15 9:37 AM) PT [12.0-14.7 seconds] 13.2 seconds (12/04/15 10:15 AM) INR [0.85-1.17] 0.97 (12/04/15 10:15 AM) PTT [22.9-35.8 seconds] 27.5 seconds (12/04/15 10:15 AM) Immunizations No data available for this section Procedures Procedure Date Related Diagnosis Body Site Tonsillectomy 2002 Appendectomy 1999 Cystectomy 1992 Social History Social [...] Plan Extracted from: Title: Clinical Document Author: Danyelle Langston MD Date: 12/06/15 Admit date: 12/04/2015 Discharge date: 12/06/2015 Admit diagnosis: 1. IUP at 2. labor 3. Suspected VWD 4. Rh neg Discharge diagnosis: Same as above S/p preTSVD H&P: Please see H&P by Dr. Rick on 12/04/2015. Procedures: preTSVD Hospital course: Patient was admitted for labor and underwent an uncomplicated . Patient is a 37 s/p , uncomplicated course, doing well. Regarding yasmin shabazz's VWD, patient is followed by Dr. Sánchez and he was notified during her hospitalization. She had an EBL of 300 and hemoglobin of 5.8. She is to f/u with Dr. Sánchez . Patient had a UTI prior to her admission for which she was never treated because she did not sisal picker her prescription and missed her OB appointment. She was discharged home with a prescription for macrobid. S he was Rh neg and baby was Rh neg, so no Rhogam was indicated. On PPD#2, patient ambulating without difficulty, voiding freely, tolerating regular diet, and pain well controlled on oral pain medications. Eligible for home discharge. control method: Depo Medications: as per home medication reconciliation form. Dispo: Pt is for discharge home today with routine pain medications. Return precautions given. Patient is to follow up in 6 weeks with x ray nurse. Extracted from: Title: OB note Author: Jeanne Ho MD Date: 12/06/15 Patient: ARABELLA POLANCO Age: 25 years Sex: Female : 1990 Associated Diagnoses: None Author: Jeanne Ho MD Subjective R1 progress note PPD#2 Pt doing well with no complaints. Pain controlled with PO meds. Tolerating regular diet, with no N/V, +flatus. Saxena removed, freely voiding. Ambulating at ease. Lochia less than menses. Pt meeting all milestones. Health Status Allergies: (Active and Proposed Allergies Only) traMADol (Severity: Unknown severity, Onset: Unknown) NKDA (Severity: Unknown severity, Onset: Unknown) Current medications: No qualifying data available , Medications (17) Active Scheduled: (3) cmtonek-ajahh-degdwaf virus vaccine 0.5 ml INJ 0.5 mL, SUB-Q, ONCALL multivitamin w/FA 0.8 mg Tab 1 tab, PO, Daily tetanus/diphtheria/pertussis, adacel (Tdap) SUSP 0.5 mL, IM, ONCALL Continuous: (2) Lactated Ringers 1,000 mL 1,000 mL, IV, 100 ml/hr sodium chloride 0.9% INJ 250 mL 250 mL, IV PRN: (12) acetaminophen 325 mg TABLET 650 mg 2 tab, PO, Q4H acetaminophen-codeine 300-30 mg TAB 1 tab, PO, Q4H benzocaine topical 20% 60 ml SPR 1 spray, TOP, PRN bisacodyl 10 mg rect SUPP 10 mg 1 supp, LA, PRN bisacodyl 5 mg ECT 15 mg 3 tab, PO, Daily docusate sodium 100 mg CAP 100 mg 1 cap, PO, BID ibuprofen 600 mg TAB 600 mg 1 tab, PO, Q6H ibuprofen 800 mg TAB 800 mg 1 tab, PO, Q8H lanolin - 30 gm top OIN 1 appl, TOP, PRN methylergonovine 0.2 mg/1 ml INJ AMP 0.2 mg 1 mL, IM, PRN ondansetron 4 mg/2ml INJ VL 4 mg 2 mL, IVP, Q8H zolpidem 5 mg TAB 5 mg 1 tab, PO, Bedtime Problem list: Problems (Active Problems Only) (SNOMED CT: [id number], Onset: 03/27/15) Von Willebrand disease (SNOMED CT: [id number], Onset: --) Asthma (SNOMED CT: [id number], Onset: --) Physical Examination VS/Measurements Inpatient Vital signs (ST) Vitals Tmp(F) Pulse BP RR SpO2 FIO2 12/05 00:00 97.4 76 124/81 18 --- --- 12/04 15:35 97.9 67 110/63 18 --- --- 12/04 09:55 98.6 80 125/67 18 --- --- 12/04 00:00 98.4 100 115/77 18 --- --- 12/03 17:56 98.2 84 120/72 18 98 --- 24 Hr Tmax: 98.6F (37.00c) at 12/04 09:55 Vital Signs are the last 5 in the past 48 hours. Exam: Lochia: Small amount. Uterus: Firm, Fundal height ( 2 cm below umbilicus ). General: Alert and oriented, No acute distress. Respiratory: Lungs are clear to auscultation. Cardiovascular: Normal rate, Regular rhythm, No murmur, No gallop, No edema. Gastrointestinal: appropriately tender to palpation, without rigidity or guarding. Musculoskeletal negative calf tenderness, negative Carlos's. Review / Management Results review: Labs (Last four charted values) WBC H 18.6 (DEC 03) Hgb L 10.8 (DEC 04) L 10.7 (DEC 03) Hct L 32.2 (DEC 04) L 33.0 (DEC 03) Plt 232 (DEC 03) PT 13.2 (DEC 03) INR 0.97 (DEC 03) PTT 27.5 (DEC 03) . Impression and Plan A/P: Ms. Polanco is a 25 yo G3 now P1112, s/p PTSVD at 36w0d 2/2 PTL, doing well. - PPD #2: doing well. AFVSS. Continue PP advances - vWD: followed by Dr. Sánchez. Call Dr. Sánchez for any complications to include hemorrhage, lacerations, or need for section . PTT and Factor VII drawn on cord blood on baby, PTT was slightly elevated in baby. - Heme: 10.7 -- 300 --10.8. No s/s of anemia now. Will continue iron and monitor for constipation symptoms. - Pain: Well controlled on Tylenol #3 and ibuprofen. Allergy to tramadol. - GI/: Tolerating regular diet / voiding freely - Br/Tolu/Depo - Vaccines: TDAP prior to D/C. - Dispo: Discharge today. Nichelle Ho MD PGY-1 Addendum by Jeanne Ho MD on Rh neg - s/p Rhogam at 28 weeks. Baby Rh neg as well, no Rhogam indicated. 12/06/2015 07:46 Rubella immune. Patient also c/o dysuria for the past month but never picked up her prescription for abx and missed her last 2 appointments in clinic (per [employer] note). Will discharge home with macrobid (sensitive to this). Strict return precautions given for pyelo. For CHRISTY at pp visit. Extracted from: Title: Clinical Document Author: Soy Villeda MD Date: 12/04/15 OB H&P Patient: ARABELLA POLANCO Age: 25 years Sex: Female : 1990 Associated Diagnoses: None Author: Urbano Fontana MD Basic Information Gestational Age: * Note: EGA calculated as of 12/04/2015 CARLOS: 01/01/2016 EGA*: 36 weeks Type: Authoritative Method Date: 09/2014 Method: Last Menstrual Period (03/27/2015) Confirmation: Confirmed Description: -- Comments: -- Entered by: MAUDE PALOMO on 09/19/2015 Other CARLOS Calculations for this : No additional CARLOS calculations have been recorded for this . History of Present Illness R3 OB Triage H&P LMP: unknown CARLOS: 01/01/2016 EGA: 36w0d cc: Contractions HPI: 25yo at 36w0d dated by 14 week sono with PMH of suspected VWD who presents to [facility] c/o contractions. Reports ctxs q3min, 06/04 severity. Patient presented to multiple hospitals these las t few days for contractions, and was told multiple times she was only 1 cm dilated. Reports minimal vaginal bleeding. Denies LOF, VD. +FM. PNC: [facility], CHRISTY to [facility] 1. Dated as above 2. 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 Sánchez - Last seen 09/28/15, to f/u on 12/14 for vWF and antigen and Z6jghyr 2wks before delivery. Per notes in allscripts pt won't likely need factor replacement for vaginal delivery however if recom mend a dose of vWF concentrate. Please call hemophilia center [phone] once patient is admitted to the hospital. Also recommend contacting pediatric hematology. 3. Rh neg: s/p rhogam 4. Labs: A-/antibody neg/ Rubella Immune/RPR NR/ HepB neg/ HIV neg 5. US on 08/17/15: 20w2d, SIUP, variable presentation; MVP 3.9cm; posterior placenta; 61%ile 6. H/o +Chlamydia this -CHRISTY neg 7. obesity BMI 43 8. breast/wants epidural/ depo OB: 2011, SAB at 13 weeks, + D&C 2013, term, female, 7#13, , [facility], + epi, shoulder dystocia? 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 GEN: Patient appears uncomfortable CV: RRR RESP: CTAB ABD: Gravid, nontender EXT: No calf tenderness SSE: Negative pooling and valsalva. 3-5cc of dark blood in vault. No active bleeding. No abnormal discharge. SVE: 4 50 / -3 EFM: Category 1 TOCO: Ctxs q3min Triage Sono: Cephalic, Posterior placenta Leopolds: 2800gm Impression and Plan A/P: 25yo at 36w0d dated by 14 week sono with PMH of suspected VWD who presents to [facility] in labor 1. labor - Patient with painful ctxs q3min, cervix 4/50/-3, changed from previous exam of 1cm dilated. Will admit to L&D for planned vaginal delivery. Will expectantly manage. 2. IUP - FHTs category 1, overall reassuring. 3. GBS unknown. Will give PCN. 3HIV Pending. 4. Cephalic presentation, Leopolds 3800gm, EFW 3806 gm on MFM sono (12/01/15) 5. 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 Sánchez. Per previous notes, pt won't likely need factor replacement for vaginal delivery however if recommend a dose of vWF concentrate. Will call hemophilia center ([phone]) and notify pediatric hematology. 6. Rh neg: s/p rhogam 7. H/o +Chlamydia this -CHRISTY neg 8. Labs: A-/antibody neg/ Rubella Immune/RPR NR/ HepB neg/ HIV neg 9. Breast / wants epidural / Depo Discussed with R4, Dr. Rivera. Donovan Fontana, PGY3 [id number] Attending Note Pt discussed with Ob team, agree with plan. Pt in labor. Consult Heme for management of vWD. Soy Villeda MD
--- OUTSIDE RECORDS SUMMARY | 2018-11-02 11:49 | XMS REPORT | Summary of Care ---
:1990 Author Organization [facility] Address [address], [place] [address]- Encounter HQ Clayr_clovis(FIN) [id number] Date(s): 08/02/17 - 08/02/17 [facility] [address] [place] [address] Professional Services provided by The [facility] [place] [address]- Discharge Diagnosis: Discharge Disposition: Home or Self Care Attending Physician: Tyree Harris MD Vital Signs Most recent to oldest 1 2 3 [Reference Range]: Height 154.94 cm (08/02/17 12:31 PM) Temperature Oral [96.4-99.1 98.2 DegF 98.5 DegF DegF] (08/02/17 12:31 PM) (08/02/17 12:14 PM) Blood Pressure [90-140/60-90 135/65 mmHg 110/55 mmHg 107/61 mmHg mmHg] (08/02/17 3:30 PM) (08/02/17 3:00 PM) (08/02/17 2:30 PM) Respiratory Rate [14-20 20 BRMIN 18 BRMIN BRMIN] (08/02/17 12:31 PM) (08/02/17 12:14 PM) Peripheral Pulse Rate [60-100 84 bpm 81 bpm bpm] (08/02/17 12:31 PM) (08/02/17 12:14 PM) Weight 85 kg (08/02/17 12:31 PM) Body Mass Index 35.41 m2 (08/02/17 12:31 PM) Problem List Condition Effective Dates Status Health Status Informant Asthma(Confirmed) Active Bipolar 1 disorder(Confirmed) Resolved Chlamydia(Confirmed) Resolved (Confirmed) 11/16/16 Active (Confirmed) 01/24/12 - 10/23/12 Resolved (Confirmed) 05/07/11 - 08/06/11 Resolved (Confirmed) 03/27/15 - 12/04/15 Resolved Von Willebrand disease(Confirmed) Active Allergies, Adverse Reactions, Alerts Substance Reaction Severity Status NKDA Active traMADol Active Medications Multivitamins with Folic Acid 0.8 mg oral kit 0 Refill(s) Start Date: 08/02/17 Status: Ordered Results ELECTROLYTES Most recent to oldest [Reference Range]: 1 Sodium Lvl [135-145 mEq/L] 136 mEq/L (08/02/17 2:02 PM) Potassium Lvl [3.5-5.1 mEq/L] 4.1 mEq/L (08/02/17 2:02 PM) Chloride Lvl [95-109 mEq/L] 103 mEq/L (08/02/17 2:02 PM) CO2 [24-32 mEq/L] 25 mEq/L (08/02/17 2:02 PM) AGAP [10.0-20.0 mEq/L] 12.1 mEq/L (08/02/17 2:02 PM) CHEM PANEL Most recent to oldest [Reference Range]: 1 Creatinine Lvl [0.50-1.40 mg/dL] 0.36 mg/dL *LOW* (08/02/17 2:02 PM) eGFR 149 mL/min/1.73m2 1 *NA* (08/02/17 2:02 PM) BUN [7-22 mg/dL] 9 mg/dL (08/02/17 2:02 PM) B/C Ratio [6-25] 25 (08/02/17 2:02 PM) Glucose Lvl [70-99 mg/dL] 70 mg/dL (08/02/17 2:02 PM) Total Protein [6.4-8.4 g/dL] 7.3 g/dL (08/02/17 2:02 PM) Albumin Lvl [3.5-5.0 g/dL] 2.6 g/dL *LOW* (08/02/17 2:02 PM) Globulin [2.7-4.2 g/dL] 4.7 g/dL *HI* (08/02/17 2:02 PM) A/G Ratio [0.7-1.6] 0.6 *LOW* (08/02/17 2:02 PM) Calcium Lvl [8.5-10.5 mg/dL] 8.3 mg/dL *LOW* (08/02/17 2:02 PM) ALT [0-65 unit/L] 32 unit/L (08/02/17 2:02 PM) AST [0-37 unit/L] 12 unit/L (08/02/17 2:02 PM) Alk Phos [39-136 unit/L] 103 unit/L (08/02/17 2:02 PM) Bili Total [0.2-1.3 mg/dL] 0.2 mg/dL (08/02/17 2:02 PM) 1Result Comment: The eGFR is calculated using the CKD-EPI formula. In most young , healthy individualsthe eGFR will be >90 mL/min/1.73m2. The eGFR declines with age. An eGFR of 60-89 may be normal insome populations, particularly the elderly, for whom the CKD-EPI formula has not been extensively validated. Use of the eGFR is not recommended in the following populations: Individuals with unstable creatinine concentrations, including patients and those with serious co-morbid conditions. Patients with extremes in muscle mass or diet. The data above are obtained from the National Kidney Disease Education Program ( NKDEP) which additionally recommends that when the eGFR is used in patients with extremes of body mass index for purposesof drug dosing, the eGFR should be multiplied by the estimated BMI.URINE AND STOOL Most recent to oldest [Reference Range]: 1 UA Turbidity [Clear] Slight *ABN* (08/02/17 2:02 PM) UA Color [Yellow] Yellow *NA* (08/02/17 2:02 PM) UA pH [5.0-8.0] 6.5 (08/02/17 2:02 PM) UA Spec Grav [<=1.030] 1.023 (08/02/17 2:02 PM) UA Glucose [Negative mg/dL] Negative mg/dL *NA* (08/02/17 2:02 PM) UA Blood [Negative] Negative (08/02/17 2:02 PM) UA Ketones [Negative mg/dL] Negative mg/dL *NA* (08/02/17 2:02 PM) UA Protein [Negative mg/dL] 20 mg/dL *ABN* (08/02/17 2:02 PM) UA Urobilinogen [0.1-1.0 mg/dL] <=1.0 mg/dL *NA* (08/02/17 2:02 PM) UA Bili [Negative] Negative *NA* (08/02/17 2:02 PM) UA Leuk Est [Negative] Moderate *ABN* (08/02/17 2:02 PM) UA Nitrite [Negative] Negative (08/02/17 2:02 PM) UA WBC [0-5 /HPF] 7 /HPF *HI* (08/02/17 2:02 PM) UA RBC [0-2 /HPF] 1 /HPF (08/02/17 2:02 PM) UA Sq Epi [Few /LPF] Many /LPF *ABN* (08/02/17 2:02 PM) UA Mucus [None Seen /LPF] Few /LPF *NA* (08/02/17 2:02 PM) HEMATOLOGY Most recent to oldest [Reference Range]: 1 WBC [3.7-10.4 K/CMM] 14.4 K/CMM *HI* (08/02/17 2:02 PM) RBC [4.20-5.40 M/CMM] 4.07 M/CMM *LOW* (08/02/17 2:02 PM) Hgb [12.0-16.0 g/dL] 11.5 g/dL *LOW* (08/02/17 2:02 PM) Hct [36.0-48.0 %] 34.0 % *LOW* (08/02/17 2:02 PM) MCV [80.0-98.0 fL] 83.6 fL (08/02/17 2:02 PM) MCH [27.0-31.0 pg] 28.2 pg (08/02/17 2:02 PM) MCHC [32.0-36.0 g/dL] 33.7 g/dL (08/02/17 2:02 PM) RDW [11.5-14.5 %] 14.4 % (08/02/17 2:02 PM) Platelet [133-450 K/CMM] 251 K/CMM (08/02/17 2:02 PM) MPV [7.4-10.4 fL] 9.4 fL (08/02/17 2:02 PM) Segs [45.0-75.0 %] 78.6 % *HI* (08/02/17 2:02 PM) Lymphocytes [20.0-40.0 %] 14.8 % *LOW* (08/02/17 2:02 PM) Monocytes [2.0-12.0 %] 5.4 % (08/02/17 2:02 PM) Eosinophils [0.0-4.0 %] 0.9 % (08/02/17 2:02 PM) Basophils [0.0-1.0 %] 0.3 % (08/02/17 2:02 PM) Segs-Bands # [1.5-8.1 K/CMM] 11.3 K/CMM *HI* (08/02/17 2:02 PM) Lymphocytes # [1.0-5.5 K/CMM] 2.1 K/CMM (08/02/17 2:02 PM) Monocytes # [0.0-0.8 K/CMM] 0.8 K/CMM (08/02/17 2:02 PM) Eosinophils # [0.0-0.5 K/CMM] 0.1 K/CMM (08/02/17 2:02 PM) Immunizations No data available for this section Procedures Procedure Date Related Diagnosis Body Site Tonsillectomy 2002 Appendectomy 1999 Cystectomy 1992 D&C - Dilatation and curettage Social History Social History Type Response Substance Abuse Use: None. Sexual Sexually active: Yes. Employment/School Highest education level: High school. Alcohol Never Smoking Status Former smoker; Type: Cigarettes; Ready to change: No; Concerns about tobacco use in household: No; Exposure to Tobacco Smoke None; Cigarette Smoking Last 365 Days No; Reg Smoking Cessation Counseling Yes; Started at age: 17.0; Stopped at age: 24; Assessment and Plan No data available for this section
--- OUTSIDE RECORDS SUMMARY | 2018-11-02 11:49 | XMS REPORT | Summary of Care ---
:1990 Author Organization [facility] Address [address] [place], [place] [address]- Encounter HQ Adarsh_clovis(FIN) [id number] Date(s): 09/19/15 - 09/19/[address] Professional Services provided by [facility] [place] [address]- Discharge Disposition: Home Attending Physician: Tano Tejada MD Admitting Physician: Tano Tejada MD Vital Signs Most recent to oldest [Reference Range]: 1 Height 154.94 cm (09/19/15 9:18 PM) Blood Pressure [90-140/60-90 mmHg] 119/72 mmHg (09/19/15 9:25 PM) Peripheral Pulse Rate [60-100 bpm] 72 bpm (09/19/15 9:25 PM) Weight 78.182 kg (09/19/15 9:18 PM) Body Mass Index 32.57 m2 (09/19/15 9:18 PM) Problem List Condition Effective Dates Status Health Status Informant Asthma(Confirmed) Active Chlamydia(Confirmed) Resolved (Confirmed) 01/24/12 - 10/23/12 Resolved (Confirmed) 05/07/11 - 08/06/11 Resolved (Confirmed) 03/27/15 Active Von Willebrand disease(Confirmed) Active Allergies, Adverse Reactions, Alerts Substance Reaction Severity Status NKDA Active Medications Flagyl 500 mg oral tablet 500 mg=1 tab, PO, BID, X 7 day, # 14 tab, 0 Refill(s) Start Date: 09/19/15 Stop Date: 09/26/15 Status: Ordered Results No data available for this section Immunizations No data available for this section Procedures Procedure Date Related Diagnosis Body Site Tonsillectomy 2003 Appendectomy 1999 Social History Social History Type Response Substance Abuse Use: None. Sexual History of sexual abuse: No. Employment/School Highest education level: High school. Alcohol Never Smoking Status Cigarette Smoking Last 365 Days Yes; Reg Smoking Cessation Counseling No; Former smoker; Exposure to Tobacco Smoke None Assessment and Plan Extracted from: Title: Clinical Document Author: Tyree Harris MD Date: 09/19/15 R3 H&P edc: 01/01/2016 EGA: 25w1d cc: leaking of fluid, back pain, groin pain HPI: This is a 25yo at 25w1d dated by 14 week sono with pmh of VWF dz dx at age 8 presents for leaking of fluid, back pain and groin pain. Reading leaking of fluid since Last saturday, ruled out f or rupture at [place] Saturday. Pt continued to have clear discharge. No gush of fluid. No vaginal bleeding. Good movement. No ctx. [facility]: [facility], [facility] last visit 09/06, next visit needs to be scheduled 1. Dated as above 2. VWF-Referral for Hematology sent, patient has not made an appt. She has never had a public relations professional. - Labs- Factor VII assay 136% (wnl), Factor VIII assay 162% (wnl); Factor VIII inhibitor screen negative; TT 16 wnl, PT 13.1 wnl, Mixing study not indicated; PTT 29.4 wnl, VWF assay 140% wnl - Bleeding precautions. - Counseled about the risks in , especially during the immediate period. - Will not need to repeat VWF and Factor VII labs. Pt has nosebleeds at baseline. 2. IUP at 23w2d - labs UTD (A neg/neg; h/h 12.9/38.8, wbc 12.9, plt 223, HbSag neg; RPR NR, HIV neg, Ucx neg, quad screen neg; gc/ct neg) - Immunizations: Flu UTD (06/2015);US on 08/17/15: 20w2 d, SIUP, variable presentation; MVP 3.9cm; posterior placenta; 61%ile 3. . RH neg -s/p rhogam earlier in 2/2 vag spotting -Pls repeat at 28 weeks 4. Reports spouse with + chlamydia sp repeat STD testing and gc chlamydia negative - h/o +Chlamydia this -CHRISTY neg 5. obesity BMI 43 6. breast/wants epidural/ declines bcm Ob: 2011, SAB at 13 weeks, + D&C 2013, term, female, 7#13, , [facility], + epi, shoulder dystocia? 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 24 Hr Tmin: No Data Available Weights are the last 5 in 60 days, plus initial. Date Wt(kg) Wt(lb) Ht(cm) Ht(in) Method BMI BSA 09/19 (initial) 78.18 172.00 Estimated 32.6 1.83 09/19 154.94 61.00 Stated ua dip: trace ketones, trace protein gen: nad abd: soft, nontender, gravid sve: ft/thick/high sse: normal femal genitalia, negaive pooling, negaive valsalva, negative nitrazine sono: cephalic, posterior placenta, moody 20 A/P: This is a 25yo at 25w1d dated by 14 week sono with pmh of VWF dz dx at age 8 presents for leaking of fluid, back pain and groin pain found to have BV and round ligament pain. 1. round ligament pain - counseled for tylenol, heating pads, maternity belt 2. pain - wants epidural 3. fht cat I 4. WF-Referral for Hematology sent, patient has not made an appt. She has never had a public relations professional. - Labs- Factor VII assay 136% (wnl), Factor VIII assay 162% (wnl); Factor VIII inhibitor screen negative; TT 16 wnl, PT 13.1 wnl, Mixing study not indicated; PTT 29.4 wnl, VWF assay 140% wnl - Bleeding precautions. - Counseled about the risks in , especially during the immediate period. - Will not need to repeat VWF and Factor VII labs. Pt has nosebleeds at baseline. 5. RH neg -s/p rhogam earlier in 2/2 vag spotting -Pls repeat at 28 weeks 6. Reports spouse with + chlamydia sp repeat STD testing and gc chlamydia negative - h/o +Chlamydia this -CHRISTY neg 7. obesity BMI 43 8. vaginal discharge - ruled out for rupture on speculum. + Bv clinically .Will prescribe flagyl Pt will followup and make an appt with [employer] community coordinator for high school in 1-2 weeks. Labor precuations given. discussed with Dr. Shaan Harris MD R3
--- OUTSIDE RECORDS SUMMARY | 2018-11-02 11:50 | XMS REPORT ---
:1990 Author Organization [facility] Address [address] [place] [address] Care Team Providers Name Role Phone ERASMO [...] Reference Range Comments TEST URINE (BEAKER) (test ptiw=125) Negative [id number] 11:54:00 Test Item Value Reference Range Comments RPR SCREEN (BEAKER) (test zvgc=519) Nonreactive Nonreactive HEMOGLOBIN [id number] 10:47:00 Test Item Value Reference Range Comments HEMOGLOBIN A1C (BEAKER) (test xlnj=304) 5.2 % 4.3-6.1 TSH/FREE T4 IF [id number] 06:03:00 Test Item Value Reference Range Comments THYROID STIMULATING HORMONE (BEAKER) (test 0.97 uIU/mL 0.35-4.94 igdx=533) VITAMIN B12 AND [id number] 06:03:00 Test Item Value Reference Range Comments VITAMIN B12 (BEAKER) (test vvqc=603) 384 pg/mL 213-816 FOLATE (BEAKER) (test sdbt=396) 11.5 ng/mL >=7.0 Effective 07/13/2014: Folate Reference Range ChangeNew: >=7.0 Previous: & gt;=5.4HIV-1 ANTIGEN WITH HIV-1/2 [id number] 05:29:00 Test Item Value Reference Range Comments HIV-1 ANTIGEN WITH HIV 1\T\2 ANTIBODY (2) Nonreactive Nonreactive (BEAKER) (test vvat=7693) [id number] 05:18:00 Test Item Value Reference Range Comments D-DIMER QUANTITATIVE (BEAKER) (test yfmb=191) < MG/L FEU <0.50 Intended Use: The D-Dimer Assay can be used to aid in the diagnosis of Deep Vein Thrombosis (DVT) and Pulmonary Embolism Disease (PED).In patients with low pre-test probability, various studies concerning STA Liatest D-dimer test have reported that with a cutoff value of 0.50 MG/L FEU, the Negative Predictive Value (NPV) regarding the exclusion of thrombosis is within 95-100% range.[id number] 05:18:00 Test Item Value Reference Range Comments MAGNESIUM (BEAKER) (test zzhr=396) 2.1 mg/dL 1.6-2.6 LIPID [id number] 05:18:00 Test Item Value Reference Range Comments TRIGLYCERIDES (BEAKER) (test xods=243) 128 mg/dL CHOLESTEROL (BEAKER) (test czjq=711) 159 mg/dL HDL CHOLESTEROL (BEAKER) (test rnas=139) 29 mg/dL LDL CHOLESTEROL CALCULATED (BEAKER) (test 104 mg/dL fxvi=456) Triglyceride Reference Range: Low Risk <150 Borderline 150- 199 High Risk 200-499 Very High Risk >=500Cholesterol Reference Range: Low Risk <200 Borderline 200-239 High Risk > 240HDL Cholesterol Reference Range: Low Risk >=60 High Risk <40LDL Cholesterol Reference Range: Optimal <100 Near Optimal 100-129 Borderline 130-159 High 160-189 Very High >=190BASIC METABOLIC [id number] 05:18:00 Test Item Value Reference Range Comments SODIUM (BEAKER) (test 139 meq/L 136-145 hvdr=791) POTASSIUM (BEAKER) (test 3.5 meq/L 3.5-5.1 qetp=913) CHLORIDE (BEAKER) (test 109 meq/L 98-107 maie=466) CO2 (BEAKER) (test 23 meq/L 22-29 migx=199) BLOOD UREA NITROGEN 13 mg/dL 7-21 (BEAKER) (test wtbe=510) CREATININE (BEAKER) (test 0.66 mg/dL 0.57-1.25 iyva=665) GLUCOSE RANDOM (BEAKER) 94 mg/dL 70-105 (test addf=205) CALCIUM (BEAKER) (test 8.3 mg/dL 8.4-10.2 rifa=460) EGFR (BEAKER) (test 109 mL/min/1.73 sq m ESTIMATED GFR IS NOT xeyy=3805) ACCURATE CREATININE CLEARANCE IN PREDICTING GLOMERULAR FILTRATION RATE. ESTIMATED GFR IS NOT APPLICABLE FOR DIALYSIS PATIENTS. CBC W/PLT COUNT & AUTO [id number] 05:09:00 Test Item Value Reference Range Comments WHITE BLOOD CELL COUNT (BEAKER) (test jjca=036) 9.8 K/ L 4.0-10.0 RED BLOOD CELL COUNT (BEAKER) (test ugjz=473) 4.39 M/ L 4.00-5.00 HEMOGLOBIN (BEAKER) (test ltdw=854) 13.0 GM/DL 12.0-15.0 HEMATOCRIT (BEAKER) (test xoca=573) 39.9 % 36.0-45.0 MEAN CORPUSCULAR VOLUME (BEAKER) (test bqoa=491) 91.0 fL 82.0-99.0 MEAN CORPUSCULAR HEMOGLOBIN (BEAKER) (test 29.7 pg 27.0-33.0 rldm=604) MEAN CORPUSCULAR HEMOGLOBIN CONC (BEAKER) (test 32.6 GM/DL 32.0-36.0 xscl=934) RED CELL DISTRIBUTION WIDTH (BEAKER) (test 13.0 % 10.3-14.2 bazc=719) PLATELET COUNT (BEAKER) (test vmfb=842) 207 K/CU MM 150-430 MEAN PLATELET VOLUME (BEAKER) (test xahk=547) 9.1 fL 6.5-10.5 NUCLEATED RED BLOOD CELLS (BEAKER) (test 0 /100 WBC 0-0 xcui=611) NEUTROPHILS RELATIVE PERCENT (BEAKER) (test 60 % ubal=338) LYMPHOCYTES RELATIVE PERCENT (BEAKER) (test 29 % riwk=580) MONOCYTES RELATIVE PERCENT (BEAKER) (test 8 % fbra=587) EOSINOPHILS RELATIVE PERCENT (BEAKER) (test 2 % wfif=614) BASOPHILS RELATIVE PERCENT (BEAKER) (test 0 % barh=630) NEUTROPHILS ABSOLUTE COUNT (BEAKER) (test 5.88 K/ L 1.80-8.00 rrig=431) LYMPHOCYTES ABSOLUTE COUNT (BEAKER) (test 2.89 K/ L 1.48-4.50 oqsv=484) MONOCYTES ABSOLUTE COUNT (BEAKER) (test 0.80 K/ L 0.00-1.30 qfor=579) EOSINOPHILS ABSOLUTE COUNT (BEAKER) (test 0.20 K/ L 0.00-0.50 yamx=498) BASOPHILS ABSOLUTE COUNT (BEAKER) (test 0.05 K/ L 0.00-0.20 qklm=428) 0.00
--- OUTSIDE RECORDS SUMMARY | 2018-11-02 11:50 | XMS REPORT | Summary of Care ---
:1990 Author Organization [facility] Address [address] [place], [place] [address]- Encounter HQ Melanyntr_clovis(FIN) [id number] Date(s): 12/01/15 - 12/01/15 [facility] [address] [place] [address] Professional Services provided by [facility] [place] [address]- Discharge Disposition: Home Attending Physician: Tano Tejada MD Admitting Physician: Tano Tejada MD Vital Signs Most recent to oldest [Reference Range]: 1 Height 154.94 cm (12/01/15 2:52 AM) Blood Pressure [90-140/60-90 mmHg] 118/78 mmHg (12/01/15 2:59 AM) Respiratory Rate [14-20 BRMIN] 18 BRMIN (12/01/15 2:59 AM) Weight 88.636 kg (12/01/15 2:52 AM) Body Mass Index 36.92 m2 (12/01/15 2:52 AM) Problem List Condition Effective Dates Status Health Status Informant Asthma(Confirmed) Active Chlamydia(Confirmed) Resolved (Confirmed) 01/24/12 - 10/23/12 Resolved (Confirmed) 05/07/11 - 08/06/11 Resolved (Confirmed) 03/27/15 Active Von Willebrand disease(Confirmed) Active Allergies, Adverse Reactions, Alerts Substance Reaction Severity Status NKDA Active Medications Demerol HCl 50 mg, 2 mL, Route: IM, Drug form: INJ, ONCE, Dosing Weight 88.636, kg, Start date: 12/01/15 5:41:00, Stop date: 12/01/15 5:41:00 Notes: (Same as: Demerol) "Use Precaution in Elderly, Seizure disorders, and Renal impairment" Start Date: 12/01/15 Stop Date: 12/01/15 Status: CompletedLactated Ringers Injection IV 1,000 mL 1,000 mL, Rate: 125 ml/hr, Infuse over: 8 hr, Route: IV, Dosing Weight 88.636 kg , Total Volume: 1,000, Start date: 12/01/15 3:15:00, Duration: 30 day, Stop date : 12/31/15 3:14:00 Start Date: 12/01/15 Stop Date: 12/01/15 Status: DiscontinuedOfirmev 1,000 mg, 100 mL, Route: IV, Drug form: INJ, ONCE, Dosing Weight 88.636, kg, Start date: 12/01/15 4:04:00, Stop date: 12/01/15 4:04:00 Notes: Infuse over 15 minutesDo not exceed 4gm/day of acetaminophen MEDICATION WASTE ProductSize: 1000 mgProduct Wasted: ___ mg Start Date: 12/01/15 Stop Date: 12/01/15 Status: CompletedPhenergan 25 mg, 1 mL, Route: IM, Drug form: INJ, ONCE, Dosing Weight 88.636, kg, Start date: 12/01/15 5:42:00, Stop date: 12/01/15 5:42:00 Notes: Do not give IV push. (Same as: Phenergan) Start Date: 12/01/15 Stop Date: 12/01/15 Status: Completed Results No data available for this section Immunizations No data available for this section Procedures Procedure Date Related Diagnosis Body Site Tonsillectomy 2002 Appendectomy 1999 Cystectomy 1992 Social History Social History Type Response Substance Abuse Use: None. Sexual History of sexual abuse: No. Employment/School Highest education level: High school. Alcohol Never Smoking Status Former smoker; Type: Cigarettes; Exposure to Tobacco Smoke None ; Cigarette Smoking Last 365 Days No; Reg Smoking Cessation Counseling No Assessment and Plan No data available for this section
[2018-11-02] MEDS ORDERED: NA CHLORIDE 0.9% 1,000 ML ONE ×2 (13:24→15:13)
[2018-11-02 13:33] LABS: Urine Blood 3+ (NEG); Urine Glucose NEGATIVE (NEG); Urine Protein 1+ (NEG); Urine Specific Gravity >1.030 (1.005-1.030); Urine pH 5.5 (5.0-7.0)
[2018-11-02 13:43] LABS: Absolute Lymphocytes (CBC) 2.7 K/uL (0.7-4.9); Absolute Monocytes 0.6 K/uL (0.1-1.3); Absolute Neutrophil 6.1 K/uL (1.8-8.0); Basophils % 0.5 % (0-1.3); Eosinophils % 1.1 % (0-4.4); Hematocrit 42.7 % (36.0-45.0); Lymphocytes % 27.9 % (15.3-44.8); MPV 9.8 fL (7.6-11.3); Monocytes % 6.5 % (3.3-12.3); RBC Red Blood Cell Count 4.77 M/uL (3.86-4.86)
[2018-11-02 13:55] LABS: BUN Blood Urea Nitrogen 14 mg/dL (7-18); Bicarbonate 26 mmol/L (21-32); Glucose Level 92 mg/dL (74-106); Potassium 3.8 mmol/L (3.5-5.1); Sodium Level 142 mmol/L (136-145)
--- NOTE | 2018-11-02 14:29 | RAD REPORT ---
EXAM DESCRIPTION: US - Pelvis Complete - 11/02/2018 2:23 pm CLINICAL HISTORY: vaginal bleeding, pelvic pain Pelvic pain. COMPARISON: Transvaginal Study Probe dated 08/11/2018 FINDINGS: The uterus is normal in size, shape and echotexture. The uterus measures 8.2 x 5.3 x 4.8 c m. The endometrial stripe measures 5 mm, normal. Both ovaries are normal in size, shape and echotexture. The right ovary measures 2.8 x 2.3 x 2.0 cm. The left ovary measures 3.4 x 2.5 x 2.3 cm. No ovarian or parovarian lesions. No adnexal masses. Normal Doppler blood flow was demonstrated to both ovaries. No significant pelvic ascites. IMPRESSION: Unremarkable study.
[2018-11-02] MEDS ORDERED: MORPHINE 2 MG/ML SYR ONE (15:01)
[2018-11-02] MEDS ORDERED: ONDANSETRON 4 MG/2 ML VIAL ONE ×2 (15:01→17:35)
[2018-11-02] MEDS ORDERED: KETOROLAC 30 MG/ML INJ ONE (15:01)
--- NOTE | 2018-11-02 15:35 | ER ---
Nurse's Notes [facility] Name: Lauren Polanco Age: 28 yrs Sex: Female : 1990 Arrival Date: 11/02/2018 Time: 11:46 Bed 17 Private MD: Diagnosis: Abnormal uterine and vaginal bleeding, unspecified Presentation: 11/02 12:05 Presenting complaint: Patient states: Vaginal bleeding, cramping, dizziness and blurred ph vision, reports that bleeding began 10/14, heavy w/ clots, states, " I am changing my pad every 45 min." Pt also reports suprapubic pain, states, " This has happened before and they said I had an infection in my uterus.". Transition of care: patient was not received from another setting of care. Onset of symptoms was November 02, 2018. Risk Assessment: Do you want to hurt yourself or someone else? Patient reports no desire to harm self or others. Initial Sepsis Screen: Does the patient meet any 2 criteria? No. Patient's initial sepsis screen is negative. Does the patient have a suspected source of infection? No. Patient's initial sepsis screen is negative. Care prior to arrival: None. 12:05 Method Of Arrival: Wheelchair ph 12:05 Acuity: YANICK 3 ph Triage Assessment: 12:17 General: Appears in no apparent distress. Behavior is calm, cooperative, appropriate tw2 for age. Pain: Complains of pain in pelvis. Neuro: Reports dizziness. : Reports vaginal bleeding that is bright red, with clots, heavy flow. 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 - Social history:: Smoking status: Patient/guardian denies using tobacco. - Ebola Screening: : No symptoms or risks identified at this time. Screenin:16 Abuse screen: Denies threats or abuse. Nutritional screening: No deficits noted. tw2 Tuberculosis screening: No symptoms or risk factors identified. Fall Risk None identified. Assessment: 12:27 General: Appears in no apparent distress. Behavior is calm, cooperative, appropriate tw2 for age. Pain: Complains of pain in pelvis. Neuro: Level of Consciousness is awake, alert, obeys commands, Oriented to person, place, time, situation, Reports dizziness, weakness "i have been bleeding since October 14, Dr. escoto did xrays and blood work but then he went out of town so i dont know the results of anything and the pain and bleeding is just worse". Cardiovascular: Heart tones S1 S2 Patient's skin is warm and dry. Respiratory: Airway is patent Respiratory effort is even, unlabored, Respiratory pattern is regular, symmetrical, Breath sounds are clear bilaterally. GI: No signs and/or symptoms were reported involving the gastrointestinal system. Abdomen is round non-distended, Bowel sounds present X 4 quads. : Urine is blood tinged, Reports vaginal bleeding that is bright red, with clots, heavy flow since 10/14. EENT: No signs and/or symptoms were reported regarding the EENT system. Derm: No signs and/or symptoms reported regarding the dermatologic system. Musculoskeletal: Range of motion: intact in all extremities. 13:30 Reassessment: Patient appears in no apparent distress at this time. No changes from sv previously documented assessment. Patient and/or family updated on plan of care and expected duration. Pain level reassessed. Patient is alert, oriented x 3, equal unlabored respirations, skin warm/dry/pink. 14:50 Reassessment: Patient appears in no apparent distress at this time. No changes from sv previously documented assessment. Patient and/or family updated on plan of care and expected duration. Pain level reassessed. Patient is alert, oriented x 3, equal unlabored respirations, skin warm/dry/pink. 15:58 Reassessment: Patient appears in no apparent distress at this time. Patient and/or sv family updated on plan of care and expected duration. Pain level reassessed. Patient is alert, oriented x 3, equal unlabored respirations, skin warm/dry/pink. Patient states feeling better. Patient states symptoms have improved. Vital Signs: 12:07 BP 115 / 60; Pulse 62; Resp 18; Temp 97.9; Pulse Ox 99% on R/A; Weight 79.38 kg; Height ph 5 ft. 1 in. (154.94 cm); 13:15 BP 111 / 73 LA Supine (auto/reg); Pulse 59; Resp 16; Pulse Ox 100% ; sv 13:17 BP 118 / 76 LA Sitting (auto/reg); Pulse 55; Resp 16; Pulse Ox 100% ; sv 13:19 BP 125 / 87 LA Standing (auto/reg); Pulse 76; Resp 18; Pulse Ox 99% ; sv 14:26 BP 106 / 69; Pulse 63; Resp 18; Pulse Ox 99% ; sv 15:58 BP 105 / 70; Pulse 66; Resp 18; Pulse Ox 99% ; sv 12:07 Body Mass Index 33.07 (79.38 kg, 154.94 cm) ph ED Course: 11:46 Patient arrived in ED. mr 12:07 Triage completed. ph 12:09 Arm band placed on. ph 12:17 Bed in low position. Call light in reach. Pulse ox on. NIBP on. tw2 12:29 Neil Pantoja PA is PHCP. jmm 12:29 Abelardo Conrad MD is Attending Physician. jmm 12:47 Josie Vick, ZOË is Primary Nurse. sv 13:30 Initial lab(s) drawn, by sd, sent to lab. Inserted saline lock: 20 gauge in right sv antecubital area, using aseptic technique. Blood collected. Flushed right antecubital with 5 ml normal saline. 14:20 Ultrasound completed. Patient tolerated well. sg3 14:23 US Pelvis Complete In Process Unspecified. EDMS 15:30 Assist provider with pelvic exam: Set up pelvic tray. Patient tolerated well. 5 15:35 Freddie Suarez MD is Referral Physician. jmm 15:59 IV discontinued, intact, bleeding controlled, No redness/swelling at site. Pressure sv dressing applied. Administered Medications: 13:39 Drug: NS 0.9% 1000 ml Route: IV; Rate: 1 bolus; Site: right antecubital; sv 14:57 Follow up: Response: No adverse reaction; IV Status: Completed infusion; IV Intake: tw2 1000ml 14:50 Drug: Zofran 4 mg Route: IVP; Site: right antecubital; tw2 15:15 Follow up: Response: No adverse reaction sv 14:52 Drug: Ketorolac 30 mg Route: IVP; Site: right antecubital; tw2 15:00 Follow up: Response: No adverse reaction; Pain is decreased sv 14:56 Drug: morphine 2 mg Route: IVP; Site: right antecubital; tw2 15:15 Follow up: Response: No adverse reaction; Pain is decreased sv Intake: 14:57 IV: 1000ml; Total: 1000ml. tw2 Outcome: 15:35 Discharge ordered by . chas 15:59 Discharged to home ambulatory. sv 15:59 Condition: stable 15:59 Condition: improved 15:59 Discharge instructions given to patient, Instructed on discharge instructions, follow up and referral plans. medication usage, Demonstrated understanding of instructions, follow-up care, medications, Prescriptions given X 1. 16:00 Patient left the ED. sv Signatures: Dispatcher [employer] EDJosie Hernandez, RN RN Neil Contreras PA PA jmm Rivera, Maria Isabel Duke RN RN Dagmar Meier RN RN [facility] Toshai Chavez [facility] Alondra Perkins [facility] [place]
--- NOTE | 2018-11-02 15:35 | EDPHYS ---
Physician Documentation [facility] Name: Lauren Polanco Age: 28 yrs Sex: Female : 1990 Arrival Date: 11/02/2018 Time: 11:46 Bed 17 Private MD: ED Physician Abelardo Conrad HPI: 11/02 12:29 This 28 yrs old Female presents to ER via Wheelchair with complaints of jmm Vaginal Bleeding, Vision Problem, Dizziness. 12:29 The patient presents with vaginal bleeding that is. Onset: The symptoms/episode jmm began/occurred gradually, 12 day(s) ago. Modifying factors: The symptoms are alleviated by nothing, the symptoms are aggravated by nothing. 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 Patient state the bleeding is heavier than previous episodes. . 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 - Social history:: Smoking status: Patient/guardian denies using tobacco. - Ebola Screening: : No symptoms or risks identified at this time. ROS: 12:29 Constitutional: Negative for fever, chills, and weight loss. jmm 12:29 Cardiovascular: Negative for chest pain, palpitations, and edema, Respiratory: Negative for shortness of breath, cough, wheezing, and pleuritic chest pain. 12:29 Eyes: Positive for visual disturbance. 12:29 : Positive for vaginal bleeding. 12:29 All other systems are negative. Exam: 12:29 Head/Face: atraumatic. Eyes: EOMI, no conjunctival erythema appreciated ENT: Moist jmm Mucus Membranes Neck: Trachea midline, Supple Chest/axilla: Normal chest wall appearance and motion. Cardiovascular: Regular rate and rhythm. No edema appreciated Respiratory: Normal respirations, no respiratory distress appreciated Abdomen/GI: Non distended, soft Back: Normal ROM Skin: General appearance color normal MS/ Extremity: Moves all extremities, no obvious deformities appreciated, no edema noted to the lower extremities Neuro: Awake and alert, normal gait Psych: Behavior is normal, Mood is normal, Patient is cooperative and pleasant 12:29 Constitutional: The patient appears in no acute distress, alert, awake. 15:32 : Pelvic Exam: Speculum exam: mild bleeding, os that is closed. [facility] Vital Signs: 12:07 BP 115 / 60; Pulse 62; Resp 18; Temp 97.9; Pulse Ox 99% on R/A; Weight 79.38 kg; Height ph 5 ft. 1 in. (154.94 cm); 13:15 BP 111 / 73 LA Supine (auto/reg); Pulse 59; Resp 16; Pulse Ox 100% ; sv 13:17 BP 118 / 76 LA Sitting (auto/reg); Pulse 55; Resp 16; Pulse Ox 100% ; sv 13:19 BP 125 / 87 LA Standing (auto/reg); Pulse 76; Resp 18; Pulse Ox 99% ; sv 14:26 BP 106 / 69; Pulse 63; Resp 18; Pulse Ox 99% ; sv 15:58 BP 105 / 70; Pulse 66; Resp 18; Pulse Ox 99% ; sv 12:07 Body Mass Index 33.07 (79.38 kg, 154.94 cm) ph MDM: 12:29 Patient medically screened. [facility] 15:32 Data reviewed: vital signs, nurses notes. [facility] 15:33 Counseling: I had a detailed discussion with the patient and/or guardian regarding: the [facility] historical points, exam findings, and any diagnostic results supporting the discharge/admit diagnosis, lab results, radiology results, the need for outpatient follow up, to return to the emergency department if symptoms worsen or persist or if there are any questions or concerns that arise at home. ED course: Patient is alert and non toxic in appearance in the ED. Patient is advised to follow up with CRABBING MACHINE OPERATOR for further evaluation. Patient is otherwise given strict return precautions. Patient understood and agrees with the plan of care. . 11/02 12:48 Order name: Basic Metabolic Panel; Complete Time: 14:02 [facility] 11/02 12:48 Order name: CBC with Diff; Complete Time: 13:50 [facility] 11/02 12:48 Order name: Type And Screen; Complete Time: 14:58 [facility] 11/02 12:53 Order name: Urine Dipstick--Ancillary (enter results); Complete Time: 13:37 ms 11/02 12:54 Order name: Urine --Ancillary (enter results); Complete Time: 13:37 ms 11/02 12:32 Order name: Orthostatic Blood Pressure; Complete Time: 13:40 m 11/02 12:48 Order name: Urine Test (obtain specimen); Complete Time: 13:40 m 11/02 12:48 Order name: IV Saline Lock; Complete Time: 13:40 [facility] 11/02 13:26 Order name: US Pelvis Complete; Complete Time: 14:30 [facility] 11/02 12:48 Order name: Labs collected and sent; Complete Time: 13:40 m 11/02 12:48 Order name: NPO; Complete Time: 13:40 [facility] 11/02 12:48 Order name: Urine Dipstick-Ancillary (obtain specimen); Complete Time: 13:40 [facility] 11/02 14:28 Order name: Pelvic Exam Setup; Complete Time: 14:46 jmm Administered Medications: 13:39 Drug: NS 0.9% 1000 ml Route: IV; Rate: 1 bolus; Site: right antecubital; sv 14:57 Follow up: Response: No adverse reaction; IV Status: Completed infusion; IV Intake: tw2 1000ml 14:50 Drug: Zofran 4 mg Route: IVP; Site: right antecubital; tw2 15:15 Follow up: Response: No adverse reaction sv 14:52 Drug: Ketorolac 30 mg Route: IVP; Site: right antecubital; tw2 15:00 Follow up: Response: No adverse reaction; Pain is decreased sv 14:56 Drug: morphine 2 mg Route: IVP; Site: right antecubital; tw2 15:15 Follow up: Response: No adverse reaction; Pain is decreased sv Disposition: 11/03 09:46 Co-signature as Attending Physician, Abelardo Conrad MD I agree with the assessment and tom plan of care. Disposition: 11/02/18 15:35 Discharged to Home. Impression: Abnormal uterine and vaginal bleeding, unspecified. - Condition is Stable. - Discharge Instructions: Abnormal Uterine Bleeding. - Prescriptions for Lo/Ovral- 28 - take 1 tablet by ORAL route 2 times per day take 1 tab by mouth twice a day for 5 days then take 1 tab by mouth daily for the remainder of the pack; 1 Pack. - Medication Reconciliation Form, Thank You Letter, Antibiotic Education, Prescription Opioid Use form. - Follow up: Freddie Suarez MD; When: 2 - 3 days; Reason: Recheck today's complaints, Continuance of care, Re-evaluation by your physician. Signatures: Dispatcher [employer] [facility] Josie Vick, ZOË RN Abelardo Wayne MD MD cha Mickail, Joel, PA PA jmm Hall, Patricia, RN RN Dagmar Meier RN RN tw2 Corrections: (The following items were deleted from the chart) 11/02 13:43 12:49 ABO/RH TYPING+[id number] ordered. [facility] 16:00 15:35 11/02/2018 15:35 Discharged to Home. Impression: Abnormal uterine and vaginal sv bleeding, unspecified. Condition is Stable. Forms are Medication Reconciliation Form, Thank You Letter, Antibiotic Education, Prescription Opioid Use. Follow up: Freddie Suarez; When: 2 - 3 days; Reason: Recheck today's complaints, Continuance of care, Re-evaluation by your physician. chas
[2018-11-02 16:17] VITALS: TEMP 97.9
[2018-11-02 16:23] VITALS: O2SAT 99
[2018-11-02 16:25] VITALS: BP 105/70
[2018-11-02] MEDS ORDERED: MORPHINE 4 MG/ML SYR ONE (17:35)
== END 2018-11-02 16:00 | disposition home or self-care (01) ==
LOC: ER 11:43
DX: N93.9 Abnormal uterine and vaginal bleeding, unspecified (principal); Z88.1 Allergy status to other antibiotic agents
CPT/HCPCS: 36415; 76856; 80048; 81003; 81025; 85025; 86850; 86900; 86901; 96361; 96374; 96375; 99284; J2270; J2405; J7030

== ENCOUNTER 2019-02-10 16:20 | Emergency (ER) | payer OTHER, SELFPAY ==
--- OUTSIDE RECORDS SUMMARY | 2019-02-10 16:23 | XMS REPORT | Clinical Summary ---
:1990 Author Organization [facility] [employer] [facility] Address [address] [place] [address] Care Team Providers Name Role Phone Unavailable [...] Not on file Results Not on fileafter 02/09/2018 Insurance Payer Benefit Plan / Subscriber ID Type Phone Address Group MEDICAID - MEDICAID MEDICAID COMM xxxxxxxxx Medicaid Contracted [facility] CHO[facility] Advance Directives For more information, please contact:[facility] [employer] [id number] [place] [address] [phone] Code Status Date Activated Date Inactivated Comments Full Code 01/09/2017 11:25 PM 01/11/2017 1:21 PM This code status was determined by: Patient
--- OUTSIDE RECORDS SUMMARY | 2019-02-10 16:26 | XMS REPORT | Continuity of Care Document ---
:1990 Author Organization Interface Problems Problem Status Onset Classification Date Comments Source Date Reported 36WEEKS , Active [facility] PAINS, 7 Medical SPOTTING Center Discharge 08/05/2017 [facility] Diagnosis: 7 Medical Center 32WKS/SYNCOPE Active [place] [address] Medical Center Active Problem 08/26/[address] Center VAG DISCHG Active [address] Center CTX'S Active [address] Center CX Active [address] VAGINAL Active [facility] DELIVERY [address] [place] [address] LEAKING FLUID Active [address] Asthma Active Problem 08/26/2017 [facility] Chlamydia Resolved Problem 08/26/2017 [facility] Von Willebrand Active Problem 08/26/2017 [facility] disease [facility] Bipolar 1 Resolved Problem 08/26/2017 [facility] Premature Active Problem 08/26/2017 [facility] labor [facility] Active [facility] RELATED Medical CONDITIONS, Center UNSP, UNSP LABOR Active [facility] WITH Medical DELIVERY, [facility] Center Medications Medication Details Route Status Patient Ordering Order Source Instructions Provider Date multivitamin, 1 tab, Route: No Longer [facility] PO, Drug Form: Active 2017 Medical TAB, Dosing Center Weight 88.182, kg, Daily, Start date: 08/24/17 9:00:00 IMPLANT POLISHER, Duration: 30 day, Stop date: 09/22/17 9:00:00 IMPLANT POLISHER Cholecalciferol PO, Daily, 0 Active 08/24/ [facility] 400 UNT / Folic Refill(s) 2017 Medical Acid 1 MG / Center pyridoxine 2 MG / Riboflavin 1.7 MG / Vitamin B 12 0.008 MG Chewable Tablet penicillin G 2,500,000 unit, Inactive [facility] potassium 50 mL, Route: 2016 [facility] IVPB, Drug Center form: INJ, ABXQ4H, Dosing Weight 88.182, kg, Start date: 08/23/17 10:30:00 IMPLANT POLISHER, Duration: 30 day, Stop date: 09/22/17 6:30:00 IMPLANT POLISHER antihemophilic 1,399 unit, Inactive [facility] factor-von Route: IV, Drug 2016 Medical Willebrand factor form: INJ, Center ONCALL, Start date: 08/23/17 8:00:00 IMPLANT POLISHER, Duration: 30 day, Stop date: 09/22/17 7:59:00 CSTNotes: Note - 100 AHF [id number] RCOF units. Call 2 Hours Ahead for the next dose Penicillin G 2,500,000 unit, Inactive [facility] 50 mL, Route: 2016 Medical IVPB, Drug Center form: INJ, ABXQ4H, Dosing Weight 88.182, kg, Start date: 08/23/17 5:00:00 IMPLANT POLISHER, Duration: 30 day, Stop date: 09/22/17 1:00:00 IMPLANT POLISHER Fentanyl 600 microgram, Inactive [facility] 30 mL, Route: 2016 Medical IV, LINE PILOT Dose: Industry 10 mcg, LINE PILOT Lockout: 10 minutes, Continuous Basal Rate: 0 mg, 4 Hour Limit (In MCG): 240, Drug Form: INJ, Continuous, Start date: 08/23/17 4:34:00 IMPLANT POLISHER, Duration: 30 day, Stop date: 09/22/17 4:33:00 CSTNotes: Concentration is 20 micrograms/ml Naloxone 0.04 mg, 0.1 Inactive [facility] mL, Route: IVP, 2016 Medical Drug form: INJ, Center Q2MIN, Dosing Weight 88.182, kg, PRN Narcotic Reversal, Start date: 08/23/17 4:34:00 IMPLANT POLISHER, Duration: 30 day, Stop date: 09/22/17 4:33:00 CSTNotes: Same as Narcan Carboprost 250 microgram, Inactive [facility] 1 mL, Route: 2016 Medical IM, Drug form: Center INJ, ONCALL, Dosing Weight 88.182, kg, Start date: 08/23/17 1:00:00 IMPLANT POLISHER, Duration: 30 day, Stop date: 09/22/17 0:59:00 CSTNotes: (Same As: Hemabate) Famotidine 20 mg, 2 mL, Inactive [facility] Route: IVP, 2016 Medical Drug form: INJ, Center ONCALL, Dosing Weight 88.182, kg, Start date: 08/23/17 1:00:00 IMPLANT POLISHER, Duration: 30 day, Stop date: 09/22/17 0:59:00 CSTNotes: (Same as: Pepcid) Can be dilute in 5-10cc NS IVP: Slow IV push over at least 2 minutes. Methylergonovine 0.2 mg, 1 mL, Inactive [place] Route: IM, Drug 2016 Medical form: INJ, Center ONCALL, Dosing Weight 88.182, kg, Start date: 08/23/17 1:00:00 IMPLANT POLISHER, Duration: 30 day, Stop date: 09/22/17 0:59:00 CSTNotes: (Same as:Methergine) Citric Acid / 30 mL, Route: Inactive [place] sodium citrate PO, Drug Form: 2016 Medical SOLN, Dosing Center Weight 88.182, kg, ONCALL, Start date: 08/23/17 1:00:00 IMPLANT POLISHER, Duration: 30 day, Stop date: 09/22/17 0:59:00 CSTNotes: (Same As: Bicitra, Cytra-2) Sodium citrate-citric acid (500-334 mg/5 mL): 1 mL contains sodium 1 mEq/mL and bicarbonate 1 mEq/mL Misoprostol 1,000 Inactive [place] microgram, 5 2017 Medical tab, Route: MA, Center Drug form: TABDESIALL, Dosing Weight 88.182, kg, Start date: 08/23/17 1:00:00 IMPLANT POLISHER, Duration: 1 doses or timesNotes: (Same as:Cytotec) Take with food Penicillin G 5,000,000 unit, Inactive [place] Potassium [id number] Route: IVPB, 2017 Medical UNT/ML Injectable Drug form: Industry Solution PDR/INJ, ONCALL, Dosing Weight 88.182, kg, Start date: 08/23/17 1:00:00 IMPLANT POLISHER, Duration: 30 day, Stop date: 09/22/17 0:59:00 CSTNotes: (Same as: Pfizerpen) MEDICATION WASTE Product Size: 5,000,000 unit Product Wasted: ___ unit Ondansetron 4 mg, 2 mL, Inactive [place] Route: IVP, 2017 Medical Drug form: INJ, Center Q8H, Dosing Weight 88.182, kg, PRN Nausea & Vomiting, Start date: 08/23/17 0:04:00 IMPLANT POLISHER, Duration: 30 day, Stop date: 09/22/17 0:03:00 CSTNotes: (Same as: Zofran) MEDICATION WASTE Product Size: 4 mg Product Wasted: ___ mg Terbutaline 0.25 mg, 0.25 Inactive [place] mL, Route: 2017 Medical SUB-Q, Drug Center form: INJ, PRN, Dosing Weight 88.182, kg, PRN Other -See Comment, Start date: 08/23/17 0:04:00 IMPLANT POLISHER, Duration: 1 doses or times, Stop date: Limited # of timesNotes: DO NOT USE IN MOBILE QA TESTER AREA (Same As: Brethine) Lidocaine 200 mg, 20 mL, Inactive [facility] Hydrochloride 10 Route: PERCUT, 2017 Medical MG/ML Injectable Drug Form: INJ, Center Solution Dosing Weight 88.182, kg, PRN, PRN Other -See Comment, Start date: 08/23/17 0:04:00 IMPLANT POLISHER, Duration: 1 doses or times, Stop date: Limited # of timesNotes: (Same as: Xylocaine) Ibuprofen 600 mg, 1 tab, Inactive [place] Route: PO, Drug 2016 Medical form: TAB, Q6H, Center Dosing Weight 88.182, kg, PRN Other -See Comment, Start date: 08/23/17 0:04:00 IMPLANT POLISHER, Duration: 30 day, Stop date: 09/22/17 0:03:00 CSTNotes: (Same as: Motrin) "Do Not Crush" Take with food. Oxytocin 30 unit, 500 Inactive [facility] mL, Rate: 42 2017 Medical ml/hr, Infuse Center over: 11.9 hr, Dosing Weight 88.182, kg, Route: IV, Total Volume: 500 mL, Start date: 08/23/17 0:04:00 IMPLANT POLISHER, Duration: 2 day, Stop date: 08/25/17 0:03:00 IMPLANT POLISHER, Replace Every: 11.9 hr Calcium Chloride 1,000 mL, 1,000 Inactive [facility] 0.0014 MEQ/ML / ml/hr, Infuse 2017 Medical Potassium Chloride Over: 1 hr, Center 0.004 MEQ/ML / Route: IV, Sodium Chloride 1,000, Drug 0.103 MEQ/ML / form: INJ, Sodium Lactate ONCE, Dosing 0.028 MEQ/ML Weight 88.182 Injectable kg, Start date: Solution 08/23/17 0:04:00 IMPLANT POLISHER, Stop date: 08/23/17 0:04:00 IMPLANT POLISHER, Bolus for regional anesthesia per unit protocol Lactated Ringers 1,000 mL, Rate: Inactive [place] IV 1,000 mL 125 ml/hr, 2017 Medical Infuse over: 8 Center hr, Route: IV, Dosing Weight 88.182 kg, Total Volume: 1,000, Start date: 08/23/17 0:04:00 IMPLANT POLISHER, Duration: 30 day, Stop date: 09/22/17 0:03:00 IMPLANT POLISHER, 1.98, m2 0 Refill(s) Active [facility] Multivitamins with 2017 Medical Folic Acid 0.8 mg Center oral kit Nitrofurantoin 100 100 mg=1 cap, Active [place] MG Oral Capsule PO, BID, X 7 2016 Medical [Macrobid] day, # 14 cap, Center 0 Refill(s) Depo-Provera 150 mg, 1 mL, Inactive [facility] Route: IM, Drug 2015 Medical form: [...] Ibuprofen 600 mg, 1 tab, No Longer [place] Route: PO, Drug Active 2015 Medical form: TAB, Q6H, Center Dosing Weight 87.727, kg, PRN Pain Score 4-6, Start date: 12/04/15 16:36:00 CDT, Duration: 30 day, Stop date: 01/03/16 16:35:00 CDTNotes: (Same as: Motrin) "Do Not Crush" Take with food. Acetaminophen 650 mg, 2 tab, No Longer [place] Route: PO, Drug Active 2015 Medical form: TAB, Q4H, Center Dosing Weight 87.727, kg, PRN Pain Score 1-3, Start date: 12/04/15 16:36:00 CDT, Duration: 30 day, Stop date: 01/03/16 16:35:00 CDTNotes: Do not exceed 4 gm/day. (Same as: Tylenol) Bisacodyl 10 mg, 1 supp, No Longer [place] Route: MA, Drug Active 2015 Medical form: SUPP, Center PRN, Dosing Weight 87.727, kg, PRN Other -See Comment, Start date: 12/04/15 16:36:00 CDT, Duration: 30 day, Stop date: 01/03/16 16:35:00 CDTNotes: (Same As: Dulcolax, Bisco-Lax) lanolin topical 1 appl, Route: No Longer [place] TOP, PRN, Drug Active 2015 Medical form: OINT, PRN Center Other -See Comment, Start date: 12/04/15 16:36:00 CDT, Duration: 30 day, Stop date: 01/03/16 16:35:00 CDTNotes: (Same as:Lanolin) zolpidem 5 mg, 1 tab, No Longer [facility] Route: PO, Drug Active 2015 Medical form: TAB, Center Bedtime, Dosing Weight 87.727, kg, PRN Sleep, Start date: 12/04/15 16:36:00 CDT, Duration: 30 day, Stop date: 01/03/16 16:35:00 CDTNotes: (Same As: Ambien) Methylergonovine 0.2 mg, 1 mL, No Longer [place] Route: IM, Drug Active 2015 Medical form: INJ, PRN, Center Dosing Weight 87.727, kg, PRN Other -See Comment, Start date: 12/04/15 16:36:00 CDT, Duration: 30 day, Stop date: 01/03/16 16:35:00 CDTNotes: (Same as:Methergine) Benzocaine 200 1 spray, Route: No Longer [place] MG/ML Topical TOP, PRN, Drug Active 2015 Medical [place] [Dermoplast] form: SPRY, PRN Center Irritation, Start date: 12/04/15 16:36:00 CDT, Duration: 30 day, Stop date: 01/03/16 16:35:00 CDTNotes: (Same As: Dermoplast) WASTE: Aerosol - Return to Pharmacy FOR EXTERNAL USE ONLY Ondansetron 4 mg, 2 mL, No Longer [place] Route: IVP, Active 2015 Medical Drug form: INJ, Center Q8H, Dosing Weight 87.727, kg, PRN Nausea & Vomiting, Start date: 12/04/15 16:36:00 CDT, Duration: 30 day, Stop date: 01/03/16 16:35:00 CDTNotes: (Same as: Zofran) MEDICATION WASTE Product Size: 4 mg Product Wasted: ___ mg Docusate 100 mg, 1 cap, No Longer [place] Route: PO, Drug Active 2015 Medical form: CAP, BID, Center Dosing Weight 87.727, kg, PRN Constipation, Start date: 12/04/15 16:36:00 CDT, Duration: 30 day, Stop date: 01/03/16 16:35:00 CDTNotes: (Same as: Colace) (Do Not Crush) Lactated Ringers 1,000 mL, Rate: No Longer [place] IV 1,000 mL 100 ml/hr, Active 2015 Medical Infuse over: 10 Center hr, Route: IV, Dosing Weight 87.727 kg, Total Volume: 1,000, Start date: 12/04/15 16:36:00 CDT, Duration: 30 day, Stop date: 01/03/16 16:35:00 CDT Oxytocin 0.06 30 unit, 500 No Longer [place] UNT/ML Injectable mL, Rate: 42 Active 2015 Medical Solution ml/hr, Infuse Center over: 11.9 hr, Dosing Weight 87.727, kg, Route: IV, Total Volume: 500 mL, Start date: 12/04/15 16:36:00 CDT, Duration: 2 doses or times, Stop date: 12/05/15 16:23:00 CDT, Replace Every: 11.9 hrNotes: (Same as: OXYTOCIN-D5LR) betamethasone 12 mg, 2 mL, No Longer [place] Route: IM, Drug Active 2015 Medical form: [...] unit Oxytocin 0.06 30 unit, 500 Inactive [place] UNT/ML Injectable mL, Rate: 2015 Medical Solution Titrate, Dosing Center Weight 87.727, kg, Route: IV, Total Volume: 500 mL, Start date: 12/04/15 13:04:00 CDT, Duration: 2 day, Stop date: 12/06/15 13:03:00 CDT, Replace Every: 24 hrNotes: (Same as: OXYTOCIN-D5LR) Penicillin G 5,000,000 unit, Inactive [place] Potassium [id number] Route: IVPB, 2016 Medical UNT/ML Injectable Drug form: Industry Solution PDR/INJ, ONCALL, Dosing Weight 88.636, kg, [...] [place] microgram, 5 2016 Medical tab, Route: MA, Center Drug form: TAB, ONCALL, Dosing Weight [...] Rate: No Longer [place] 0.9% (titrate) 250 progress worker for use Active 2015 Medical mL with [...] # of timesNotes: DO NOT USE IN MOBILE QA TESTER AREA (Same As: Brethine) Butorphanol 1 mg, 0.5 mL, Inactive [place] Route: IVP, 2015 Medical Drug form: INJ, Center Q2H, Dosing Weight 88.636, kg, PRN Pain Score 1-5, Start date: 12/04/15 9:05:00 CDT, Duration: 30 day, Stop date: 01/03/16 9:04:00 CDTNotes: (Same As: Stadol) MEDICATION WASTE Product Size: 2 mg Product Wasted: ___ mg Ondansetron 4 mg, 2 mL, Inactive [facility] Route: IVP, 2016 Medical Drug form: INJ, Center Q8H, Dosing Weight 88.636, kg, PRN Nausea & Vomiting, Start date: 12/04/15 9:05:00 CDT, Duration: 30 day, Stop date: 01/03/16 9:04:00 CDTNotes: (Same as: Zofran) MEDICATION WASTE Product Size: 4 mg Product Wasted: ___ mg Oxytocin 0.06 30 unit, 500 Inactive [facility] UNT/ML Injectable mL, Rate: 42 2015 Medical Solution ml/hr, Infuse Center over: 11.9 hr, Dosing Weight 88.636, kg, Route: IV, Total Volume: 500 mL, Start date: 12/04/15 9:05:00 CDT, Duration: 2 day, Stop date: 12/06/15 9:04:00 CDT, Replace Every: 11.9 hrNotes: (Same as: OXYTOCIN-D5LR) Lactated Ringers 1,000 mL, Rate: Inactive [facility] IV 1,000 mL 125 ml/hr, 2016 Medical Infuse over: 8 Center hr, Route: IV, Dosing Weight 88.636 kg, Total Volume: 1,000, Start date: 12/04/15 9:05:00 CDT, Duration: 30 day, Stop date: 01/03/16 9:04:00 CDT Calcium Chloride 1,000 mL, 1,000 Inactive [facility] 0.0014 MEQ/ML / ml/hr, Infuse 2015 [facility] Potassium Chloride Over: 1 hr, Center 0.004 MEQ/ML / Route: IV, Sodium Chloride 1,000, Drug 0.103 MEQ/ML / form: INJ, Sodium Lactate ONCE, Dosing 0.028 MEQ/ML Weight 88.636 Injectable kg, Start date: Solution 12/04/15 9:05:00 CDT, Stop date: 12/04/15 9:05:00 CDT, Bolus for regional anesthesia per unit protocol Phenergan 25 mg, 1 mL, Inactive [facility] Route: IM, Drug 2015 Medical form: INJ, Center ONCE, Dosing Weight 88.636, kg, Start date: 12/01/15 5:42:00, Stop date: 12/01/15 5:42:00Notes: Do not give IV push. (Same as: Phenergan) Demerol HCl 50 mg, 2 mL, Inactive [facility] Route: IM, Drug 2015 Medical form: INJ, Center ONCE, Dosing Weight 88.636, kg, Start date: 12/01/15 5:41:00, Stop date: 12/01/15 5:41:00Notes: (Same as: Demerol) "Use Precaution in Elderly, Seizure disorders, and Renal impairment" Ofirmev 1,000 mg, 100 Inactive [place] mL, Route: IV, 2016 Medical Drug form: INJ, Center ONCE, Dosing Weight 88.636, kg, Start date: 12/01/15 4:04:00, Stop date: 12/01/15 4:04:00Notes: Infuse over 15 minutes Do not exceed 4gm/day of acetaminophen MEDICATION WASTE Product Size: 1000 mg Product Wasted: ___ mg Calcium Chloride 1,000 mL, Rate: Inactive [place] 0.0014 MEQ/ML / 125 ml/hr, 2015 [facility] Potassium Chloride Infuse over: 8 Center 0.004 MEQ/ML / hr, Route: IV, Sodium Chloride Dosing Weight 0.103 MEQ/ML / 88.636 kg, Sodium Lactate Total Volume: 0.028 MEQ/ML 1,000, Start Injectable date: 12/01/15 Solution 3:15:00, Duration: 30 day, Stop date: 12/31/15 3:14:00 Metronidazole 500 500 mg=1 tab, Active [facility] MG Oral Tablet PO, BID, X 7 2015 [Flagyl] , # 14 tab, Center 0 Refill(s) Allergies, Adverse Reactions, Alerts Substance Category Reaction Severity Reaction Status Date Comments Source type Reported traMADol Assertion [place] [facility] [place] Immunization Date Given Site Status Last Updated Comments Source Results Order Name Results Value Reference Date Interpretation Comments Source Range HEMATOLOGY PTT 26.5 s 22.9 - 12 [place] 35.8 /2017 [facility] HEMATOLOGY INR 0.97 0.85 - 08/23 [place] 1.17 /2016 [facility] HEMATOLOGY PT 12.9 s 12.0 - 08/23 [facility] 14. [facility] HEMATOLOGY vWF Assay 101 % 45 - 140 08/23 [facility] HEMATOLOGY vWF Antigen 213 % 45 - 165 08/23 [facility] DRUG SCREEN U Propoxyph Negative Negative 08/23 [facility] (08/23/17 2:03 AM) DRUG SCREEN U Methadone Negative Negative 08/23 [facility] (08/23/17 2:03 AM) DRUG SCREEN UDS Note See Note 08/23 [facility] (08/23/17 2:03 AM) Industry DRUG SCREEN U Phencyc Scr Negative Negative 08/23 [facility] (08/23/17 2:03 AM) DRUG SCREEN U Opiate Scr Negative Negative 08/23 [facility] (08/23/17 2:03 AM) DRUG SCREEN U Benzodia Negative Negative 08/23 [facility] (08/23/17 2:03 AM) DRUG SCREEN U Cannab Scr Negative Negative 08/23 [facility] (08/23/17 2:03 AM) DRUG SCREEN U Cocaine Scr Negative Negative 08/23 [facility] (08/23/17 2:03 AM) DRUG SCREEN U Cydney Scr Negative Negative 08/23 [facility] (08/23/17 2:03 AM) DRUG SCREEN U Amph Scr Negative Negative 08/23 [facility] (08/23/17 2:03 AM) BLOOD BANK RBC product Product available 08/23 [facility] (08/23/17 1:54 AM) Industry BLOOD BANK Path AB Transfusio 08/23 [facility] RESULTS n [facility] Physician [facility] Services e patient is a 27 y/o [...] the resident's , Dr. Camp, interpreta tion.CPT: [id number] BLOOD BANK Antibody Scrn Positive 1 08/23 Result Comment: 08/23/2017 04 :06 [id number] [facility] "Significant Findings called to Marcy STEELE at 0404 by DOMENICO. Read Back OK." [facility] (08/23/17 12:36 AM) Industry 08/23/2017 04:04 [id number] Patient has unexpected antibodies. Allow extra time for additional crossmatches. BLOOD BANK ABO/Rh A NEG 08/23 [facility] BLOOD BANK AB Int Rhig 08/23 [facility] RESULTS Anti-D [facility] HEMATOLOGY Segs-Bands # 9.8 K/CMM 1.5 - 8.1 08/[address] HEMATOLOGY Lymphocytes # 2.5 K/CMM 1.0 - 5.5 08/[address] HEMATOLOGY Monocytes # 0.9 K/CMM 0.0 - 0.8 08/[address] HEMATOLOGY Eosinophils # 0.2 K/CMM 0.0 - 0.5 08/[address] HEMATOLOGY Basophils # 0.1 K/CMM 0.0 - 0.2 08/[address] HEMATOLOGY Lymphocytes 18.6 % 20.0 - 08/23 [place] 40.0 [facility] HEMATOLOGY Monocytes 6.7 % 2.0 - 12.0 08/[address] HEMATOLOGY Eosinophils 1.1 % 0.0 - 4.0 08/[address] HEMATOLOGY Basophils 0.4 % 0.0 - 1.0 08/[address] HEMATOLOGY Segs 73.2 % 45.0 - 08/23 [facility] 75.0 [facility] HEMATOLOGY Factor VIII 255 % 50 - 242 08/[address] HEMATOLOGY MPV 9.9 fL 7.4 - 10.4 08/23 [facility] HEMATOLOGY MCHC 33.5 g/dL 32.0 - 08/23 [facility] 36.0 [facility] HEMATOLOGY MCH 27.4 pg 27.0 - 08/23 [facility] 31.0 [facility] HEMATOLOGY Hct 33.5 % 36.0 - 08/23 [facility] 48.0 [facility] HEMATOLOGY MCV 82.0 fL 80.0 - 08/23 [facility] 98.0 [facility] HEMATOLOGY Hgb 11.2 g/dL 12.0 - 08/23 [facility] 16.0 [facility] HEMATOLOGY Platelet 215 K/CMM 133 - 450 08/23 [facility] HEMATOLOGY RDW 15.4 % 11.5 - 08/23 [facility] 14.5 [facility] HEMATOLOGY RBC 4.09 M/CMM 4.20 - 08/23 [facility] 5.40 [facility] HEMATOLOGY WBC 13.4 K/CMM 3.7 - 10.4 08/23 [facility] IMMUNOLOGY Hep Bs [facility] Negative [facility] (08/23/17 12:36 AM) IMMUNOLOGY HIV. Negative Negative 08/23 [facility] (08/23/17 12:36 AM) IMMUNOLOGY Treponemal Non Reactive Non 08/23 [facility] Scr [facility] (08/23/17 12:36 AM) CHEM PANEL A/G Ratio 0.6 0.7 - 1.6 08/02 [facility] CHEM PANEL B/C Ratio 25 6 - 25 08/02 [facility] CHEM PANEL Globulin 4.7 g/dL 2.7 - 4.2 08/02 [facility] CHEM PANEL AGAP 12.1 meq/L 10.0 - 08/02 [facility] 20.0 [facility] CHEM PANEL eGFR 149 08/02 Result Comment: The eGFR is calculated using the CKD-EPI formula. In most young, healthy individuals the eGFR will be >90 mL/ min/1.73m2. The eGFR declines with age. An eGFR of 60-89 may be normal in [facility] mL/min/1. some populations, particularly the elderly, [...] Total 0.2 mg/dL 0.2 - 1.3 08/[address] CHEM PANEL CO2 25 meq/L 24 - 32 08/[address] CHEM PANEL Calcium Lvl 8.3 mg/dL 8.5 - 10.5 08/[address] CHEM PANEL Potassium Lvl 4.1 meq/L 3.5 - 5.1 08/[address] CHEM PANEL Sodium Lvl 136 meq/L 135 - 145 08/[address] CHEM PANEL Chloride Lvl 103 meq/L 95 - 109 08/[address] CHEM PANEL Alk Phos 103 unit/L 39 - 136 08/[address] CHEM PANEL ALT 32 unit/L 0 - 65 08/[address] CHEM PANEL AST 12 unit/L 0 - 37 08/[address] CHEM PANEL Albumin Lvl 2.6 g/dL 3.5 - 5.0 08/[address] CHEM PANEL Total Protein 7.3 g/dL 6.4 - 8.4 08/[address] CHEM PANEL Creatinine 0.36 mg/dL 0.50 - 08/02 [facility] Lvl 1.40 [facility] CHEM PANEL BUN 9 mg/dL 7 - 22 08/[address] CHEM PANEL Glucose Lvl 70 mg/dL 70 - 99 08/[address] HEMATOLOGY Eosinophils # 0.1 K/CMM 0.0 - 0.5 08/[address] HEMATOLOGY Segs 78.6 % 45.0 - 08/02 [facility] [address] [place] [address] HEMATOLOGY Lymphocytes # 2.1 K/CMM 1.0 - 5.5 08/[address] HEMATOLOGY Segs-Bands # 11.3 K/CMM 1.5 - 8.1 08/02 [facility] HEMATOLOGY Basophils 0.3 % 0.0 - 1.0 08/02 [facility] HEMATOLOGY Monocytes # 0.8 K/CMM 0.0 - 0.8 08/02 [facility] HEMATOLOGY Eosinophils 0.9 % 0.0 - 4.0 08/02 [facility] HEMATOLOGY Monocytes 5.4 % 2.0 - 12.0 08/02 [facility] HEMATOLOGY Lymphocytes 14.8 % 20.0 - 08/02 40.0 [facility] HEMATOLOGY Hct 34.0 % 36.0 - 08/02 [place] 48.0 [facility] HEMATOLOGY WBC 14.4 K/CMM 3.7 - 10.4 08/02 [facility] HEMATOLOGY Hgb 11.5 g/dL 12.0 - 08/02 16.0 [facility] HEMATOLOGY RBC 4.07 M/CMM 4.20 - 08/02 [facility] 5.40 /2016 [facility] HEMATOLOGY MPV 9.4 fL 7.4 - 10.4 08/02 [facility] HEMATOLOGY MCH 28.2 pg 27.0 - 08/02 31.0 [facility] HEMATOLOGY Platelet 251 K/CMM 133 - 450 08/02 [facility] HEMATOLOGY MCHC 33.7 g/dL 32.0 - 08/02 36.0 [facility] HEMATOLOGY MCV 83.6 fL 80.0 - 08/02 [facility] 98.0 [facility] HEMATOLOGY RDW 14.4 % 11.5 - 08/02 [facility] 14.5 [facility] URINE AND UA <=1.0 0.1 - 1.0 08/02 [facility] Urobilinogen mg/dL /2016 [facility] URINE AND UA Sq Epi Many /LPF Few /LPF 08/02 [facility] URINE AND UA Leuk Est Moderate Negative 08/02 [facility] *ABN* Center (08/02/17 2:02 PM) URINE AND UA Blood Negative Negative 08/02 [facility] (08/02/17 2:02 PM) Industry URINE AND UA Nitrite Negative Negative 08/02 [facility] (08/02/17 2:02 PM) Industry URINE AND UA Bili Negative Negative 08/02 [facility] *NA* Center (08/02/17 2:02 PM) URINE AND UA RBC 1 /HPF 0 - 2 08/02 [facility] URINE AND UA WBC 7 /HPF 0 - 5 08/02 [facility] URINE AND UA Mucus Few /LPF None Seen 08/02 [facility] /LPF [facility] URINE AND UA Spec Grav 1.023 <=1.030 08/02 [facility] URINE AND UA Turbidity Slight Clear 08/02 [facility] Medical *ABN* Center (08/02/17 2:02 PM) URINE AND UA Color Yellow Yellow 08/02 [facility] *NA* Center (08/02/17 2:02 PM) URINE AND UA Glucose Negative Negative 08/02 [facility] mg/dL mg/dL [facility] URINE AND UA Ketones Negative Negative 08/02 [facility] mg/dL mg/dL [facility] URINE AND UA pH 6.5 5.0 - 8.0 08/02 [facility] URINE AND UA Protein 20 mg/dL Negative 08/02 [facility] mg/dL [facility] HEMATOLOGY Hct 32.2 % 36.0 - 12/04 [facility] 48.0 [facility] HEMATOLOGY Hgb 10.8 g/dL 12.0 - 12/04 [facility] 16.0 [facility] URINE AND UA <=1.0 0.1 - 1.0 12/03 [facility] Urobilinogen mg/dL [facility] URINE AND UA Color Yellow Yellow 12/03 [facility] *NA* Center (12/04/15 10:43 AM) URINE AND UA Turbidity Clear Clear 12/03 [facility] (12/04/15 10:43 AM) Industry URINE AND UA Bacteria Occasional None Seen 12/03 [facility] /HPF /HPF [facility] URINE AND UA Mucus Few /LPF None Seen 12/03 [facility] /LPF [facility] URINE AND UA Spec Grav 1.017 <=1.030 12/03 [facility] URINE AND UA Glucose Negative Negative 12/03 [facility] mg/dL mg/dL [facility] URINE AND UA Ketones Negative Negative 12/03 [facility] mg/dL mg/dL /2015 [facility] URINE AND UA Bili Negative Negative 12/03 [facility] *NA* Center (12/04/15 10:43 AM) URINE AND UA pH 6.5 5.0 - 8.0 12/03 [facility] URINE AND UA Protein 20 mg/dL Negative 12/03 [facility] mg/dL [facility] URINE AND UA Nitrite Negative Negative 12/03 [facility] (12/04/15 10:43 AM) [employer] URINE AND UA Blood Large Negative 12/03 [facility] *ABN* Industry (12/04/15 10:43 AM) URINE AND UA Sq Epi Many /LPF Few /LPF 12/03 [facility] URINE AND UA WBC 4 /HPF 0 - 5 12/03 [facility] URINE AND UA RBC 1 /HPF 0 - 2 12/03 [facility] URINE AND UA Leuk Est Trace Negative 12/03 [facility] *ABN* Industry (12/04/15 10:43 AM) HEMATOLOGY PTT 27.5 s 22.9 - 12/03 [place] 35.8 /2015 [facility] HEMATOLOGY INR 0.97 0.85 - 12/03 [place] 1.17 [facility] HEMATOLOGY PT 13.2 s 12.0 - 12/03 [facility] 14.7 /2015 [facility] BLOOD BANK AB Int Anti-D 12/03 [place] [facility] BLOOD BANK Antibody Scrn Positive 1 12/03 Result Comment: 12/04/2015 11 :48 [email or web address] [facility] "Significant Findings called to Estephania Metzger at 1145 by Hanna. Read Back OK." [facility] (12/04/15 9:37 AM) Industry Positive Antibody Screen. Please allow additional time for crossmatches. BLOOD BANK ABO/Rh A NEG 12/03 [facility] RESULTS [facility] BLOOD BANK Path AB Blood Bank 12/03 [facility] RESULTS [address] yo female recieved Rhogam on 08/16/2016 [...] the resident Dr. Fany Fletcher's interpreta tion.CPT: [id number] HEMATOLOGY MPV 9.3 fL 7.4 - 10.4 12/03 [facility] HEMATOLOGY Platelet 232 K/CMM 133 - 450 12/03 [facility] HEMATOLOGY RDW 14.8 % 11.5 - 12/03 [facility] 14.5 [facility] HEMATOLOGY MCHC 32.3 g/dL 32.0 - 12/03 [facility] 36.0 [facility] HEMATOLOGY MCH 26.9 pg 27.0 - 12/03 [facility] 31.0 [facility] HEMATOLOGY MCV 83.4 fL 80.0 - 12/03 [facility] 98.0 [facility] HEMATOLOGY Hct 33.0 % 36.0 - 12/03 [facility] 48.0 [facility] HEMATOLOGY Hgb 10.7 g/dL 12.0 - 12/03 [facility] 16.0 [facility] HEMATOLOGY RBC 3.96 M/CMM 4.20 - 12/03 [place] 5.40 /2015 [facility] HEMATOLOGY WBC 18.6 K/CMM 3.7 - 10.4 12/03 [facility] HEMATOLOGY Basophils # 0.1 K/CMM 0.0 - 0.2 12/[address] [place] [address] HEMATOLOGY Eosinophils # 0.1 K/CMM 0.0 - 0.5 12/[address] HEMATOLOGY Monocytes # 1.2 K/CMM 0.0 - 0.8 12/[address] HEMATOLOGY Monocytes 6.3 % 2.0 - 12.0 12/[address] HEMATOLOGY Lymphocytes # 2.0 K/CMM 1.0 - 5.5 12/[address] HEMATOLOGY Segs-Bands # 15.3 K/CMM 1.5 - 8.1 12/03 [place] /2016 [facility] HEMATOLOGY Basophils 0.3 % 0.0 - 1.0 12/03 [facility] HEMATOLOGY Eosinophils 0.8 % 0.0 - 4.0 12/03 [facility] HEMATOLOGY Lymphocytes 10.7 % 20.0 - 12/03 [facility] 40.0 [facility] HEMATOLOGY Segs 81.9 % 45.0 - 12/03 [facility] 75.0 [facility] I[facility]OLOGY [facility]. Negative [facility]12[facility]04/15 9:37 AM) IMMUNOLOGY Treponemal Non Reactive Non 12/03 [facility] (12/04/15 9:37 AM) IMMUNOLOGY Hep Bs Ag Negative Negative 12/03 [facility] Industry (12/04/15 9:37 AM) BLOOD BANK RBC product Product available 12/03 [facility] (12/04/15 9:06 AM) Center Vital Signs Vital Sign Value Date Comments Source Systolic (mm Hg) 112 08/23/2017 [facility] Diastolic (mm Hg) 66 08/23/2017 [facility] Heart Rate 78 08/23/2017 [facility] Respitory Rate 18 08/23/2017 [facility] Temperature Oral (F) 98 F 08/23/2017 [facility] Systolic (mm Hg) 118 08/23/2017 [facility] Diastolic (mm Hg) 73 08/23/2017 [facility] Heart Rate 83 08/23/2017 [facility] Temperature Oral (F) 98.3 F 08/23/2017 [facility] Respitory Rate 18 08/23/2017 [facility] Systolic (mm Hg) 110 08/23/2017 [facility] Diastolic (mm Hg) 61 08/23/2017 [facility] Temperature Oral (F) 98.3 F 08/23/2017 [facility] BMI Calculated 36.73 08/23/2017 [facility] Weight 88.182 08/23/2017 [facility] Height 154.94 cm 08/23/2017 [facility] Weight 88.182 08/23/2017 [facility] Height 154.94 cm 08/23/2017 [facility] BMI Calculated 36.73 08/23/2017 [facility] Respitory Rate 18 08/23/2017 [facility] Heart Rate 78 08/23/2017 [facility] Systolic (mm Hg) 135 08/02/2017 [facility] Diastolic (mm Hg) 65 08/02/2017 [facility] Systolic (mm Hg) 110 08/02/2017 [facility] Diastolic (mm Hg) 55 08/02/2017 [facility] Systolic (mm Hg) 107 08/02/2017 [facility] Diastolic (mm Hg) 61 08/02/2017 [facility] Respitory Rate 20 08/02/2017 [facility] Heart Rate 84 08/02/2017 [facility] Temperature Oral (F) 98.2 F 08/02/2017 [facility] Height 154.94 cm 08/02/2017 [facility] Weight 85 08/02/2017 [facility] BMI Calculated 35.41 08/02/2017 [facility] Temperature Oral (F) 98.5 F 08/02/2017 [facility] Respitory Rate 18 08/02/2017 [facility] Heart Rate 81 08/02/2017 [facility] Systolic (mm Hg) 123 12/08/2015 [facility] Diastolic (mm Hg) 67 12/08/2015 [facility] Temperature Oral (F) 98.4 F 12/08/2015 [facility] Respitory Rate 20 12/08/2015 [facility] Heart Rate 64 12/08/2015 [facility] Weight 77.273 12/08/2015 [facility] BMI Calculated 32.19 12/08/2015 [facility] Height 154.94 cm 12/08/2015 [facility] Systolic (mm Hg) 124 12/06/2015 [facility] Diastolic (mm Hg) 81 12/06/2015 [facility] Respitory Rate 18 12/06/2015 [facility] Temperature Oral (F) 97.4 F 12/06/2015 [facility] Heart Rate 76 12/06/2015 [facility] Systolic (mm Hg) 110 12/05/2015 [facility] Diastolic (mm Hg) 63 12/05/2015 [facility] Respitory Rate 18 12/05/2015 [facility] Temperature Oral (F) 97.9 F 12/05/2015 [facility] Heart Rate 67 12/05/2015 [facility] Respitory Rate 18 12/05/2015 [facility] Systolic (mm Hg) 125 12/05/2015 [facility] Diastolic (mm Hg) 67 12/05/2015 [facility] Heart Rate 80 12/05/2015 [facility] Temperature Oral (F) 98.6 F 12/05/2015 [facility] Weight 87.727 12/04/2015 [facility] BMI Calculated 36.54 12/04/2015 [facility] Height 154.94 cm 12/04/2015 [facility] Respitory Rate 18 12/01/2015 [facility] Systolic (mm Hg) 118 12/01/2015 [facility] Diastolic (mm Hg) 78 12/01/2015 [facility] BMI Calculated 36.92 12/01/2015 [facility] Weight 88.636 12/01/2015 [facility] Height 154.94 cm 12/01/2015 [facility] Heart Rate 72 09/20/2015 [facility] Systolic (mm Hg) 119 09/20/2015 [facility] Diastolic (mm Hg) 72 09/20/2015 [facility] BMI Calculated 32.57 09/20/2015 [facility] Weight 78.182 09/20/2015 [facility] Height 154.94 cm 09/20/2015 [facility] Encounters Location Location Encounter Encounter Reason Attending ADM DC Status Source Details Type Number For Provider Date Date Visit [facility] [id number] Tano 09/20 09/20 [facility] /2015 [facility] OBS [id number] Tano 11/30 11/30 [facility] /2015 [facility] Inpatient [id number] Soy 12/03 12/06 [facility] Prabhjot-Crystal /2015 [facility] OBS [id number] Traci 12/07 12/07 [facility] Gustavo /2015 [facility] Emergency [id number] Tyree Harris 08/02 08/02 [facility] /2016 [facility] [id number] Keiko 08/23 08/24 [facility] Tor /2016 [facility] Procedures Procedure Code Date Perfomer Comments Source Tonsillectomy [id number] 08/26/2002 [facility] Appendectomy [id number] 08/26/1999 [facility] Cystectomy [id number] 08/26/1992 [facility] D&C - Dilatation [id number] [facility]
--- OUTSIDE RECORDS SUMMARY | 2019-02-10 16:27 | XMS REPORT ---
:1990 [facility] Address [address] [place] [address] Care Team Providers Name Role Phone ERASMO [...] Reference Range Comments TEST URINE (BEAKER) (test jbid=229) Negative [id number] 11:54:00 Test Item Value Reference Range Comments RPR SCREEN (BEAKER) (test fsme=796) Nonreactive Nonreactive HEMOGLOBIN [id number] 10:47:00 Test Item Value Reference Range Comments HEMOGLOBIN A1C (BEAKER) (test ontc=587) 5.2 % 4.3-6.1 TSH/FREE T4 IF [id number] 06:03:00 Test Item Value Reference Range Comments THYROID STIMULATING HORMONE (BEAKER) (test 0.97 uIU/mL 0.35-4.94 yuly=788) VITAMIN B12 AND [id number] 06:03:00 Test Item Value Reference Range Comments VITAMIN B12 (BEAKER) (test cuum=268) 384 pg/mL 213-816 FOLATE (BEAKER) (test oisx=562) 11.5 ng/mL >=7.0 Effective 07/13/2014: Folate Reference Range ChangeNew: >=7.0 Previous: & gt;=5.4HIV-1 ANTIGEN WITH HIV-1/2 [id number] 05:29:00 Test Item Value Reference Range Comments HIV-1 ANTIGEN WITH HIV 1\T\2 ANTIBODY (2) Nonreactive Nonreactive (BEAKER) (test tcjy=1960) [id number] 05:18:00 Test Item Value Reference Range Comments D-DIMER QUANTITATIVE (BEAKER) (test ifve=527) < MG/L FEU <0.50 Intended Use: The D-Dimer Assay can be used to aid in the diagnosis of Deep Vein Thrombosis (DVT) and Pulmonary Embolism Disease (PED).In patients with low pre-test probability, various studies concerning STA Liatest D-dimer test have reported that with a cutoff value of 0.50 MG/L FEU, the Negative Predictive Value (NPV) regarding the exclusion of thrombosis is within 95-100% range.[id number] 05:18:00 Test Item Value Reference Range Comments MAGNESIUM (BEAKER) (test kbyg=092) 2.1 mg/dL 1.6-2.6 LIPID [id number] 05:18:00 Test Item Value Reference Range Comments TRIGLYCERIDES (BEAKER) (test slqp=587) 128 mg/dL CHOLESTEROL (BEAKER) (test zzgx=343) 159 mg/dL HDL CHOLESTEROL (BEAKER) (test cwpe=469) 29 mg/dL LDL CHOLESTEROL CALCULATED (BEAKER) (test 104 mg/dL mhwa=979) Triglyceride Reference Range: Low Risk <150 Borderline 150- 199 High Risk 200-499 Very High Risk >=500Cholesterol Reference Range: Low Risk <200 Borderline 200-239 High Risk > 240HDL Cholesterol Reference Range: Low Risk >=60 High Risk <40LDL Cholesterol Reference Range: Optimal <100 Near Optimal 100-129 Borderline 130-159 High 160-189 Very High >=190BASIC METABOLIC [id number] 05:18:00 Test Item Value Reference Range Comments SODIUM (BEAKER) (test 139 meq/L 136-145 ekkw=244) POTASSIUM (BEAKER) (test 3.5 meq/L 3.5-5.1 ikkq=164) CHLORIDE (BEAKER) (test 109 meq/L 98-107 ndzx=117) CO2 (BEAKER) (test 23 meq/L 22-29 iora=788) BLOOD UREA NITROGEN 13 mg/dL 7-21 (BEAKER) (test mhem=112) CREATININE (BEAKER) (test 0.66 mg/dL 0.57-1.25 xyrp=654) GLUCOSE RANDOM (BEAKER) 94 mg/dL 70-105 (test luzz=708) CALCIUM (BEAKER) (test 8.3 mg/dL 8.4-10.2 pziy=692) EGFR (BEAKER) (test 109 mL/min/1.73 sq m ESTIMATED GFR IS NOT zgfo=3882) ACCURATE CREATININE CLEARANCE IN PREDICTING GLOMERULAR FILTRATION RATE. ESTIMATED GFR IS NOT APPLICABLE FOR DIALYSIS PATIENTS. CBC W/PLT COUNT & AUTO [id number] 05:09:00 Test Item Value Reference Range Comments WHITE BLOOD CELL COUNT (BEAKER) (test qtcg=041) 9.8 K/ L 4.0-10.0 RED BLOOD CELL COUNT (BEAKER) (test rtjq=001) 4.39 M/ L 4.00-5.00 HEMOGLOBIN (BEAKER) (test tpon=504) 13.0 GM/DL 12.0-15.0 HEMATOCRIT (BEAKER) (test ufut=119) 39.9 % 36.0-45.0 MEAN CORPUSCULAR VOLUME (BEAKER) (test nojr=594) 91.0 fL 82.0-99.0 MEAN CORPUSCULAR HEMOGLOBIN (BEAKER) (test 29.7 pg 27.0-33.0 ubtp=399) MEAN CORPUSCULAR HEMOGLOBIN CONC (BEAKER) (test 32.6 GM/DL 32.0-36.0 amyl=696) RED CELL DISTRIBUTION WIDTH (BEAKER) (test 13.0 % 10.3-14.2 tzpw=669) PLATELET COUNT (BEAKER) (test llmm=401) 207 K/CU MM 150-430 MEAN PLATELET VOLUME (BEAKER) (test cmln=879) 9.1 fL 6.5-10.5 NUCLEATED RED BLOOD CELLS (BEAKER) (test 0 /100 WBC 0-0 nzyp=222) NEUTROPHILS RELATIVE PERCENT (BEAKER) (test 60 % zccg=676) LYMPHOCYTES RELATIVE PERCENT (BEAKER) (test 29 % bvjx=191) MONOCYTES RELATIVE PERCENT (BEAKER) (test 8 % qgxb=738) EOSINOPHILS RELATIVE PERCENT (BEAKER) (test 2 % xxbt=765) BASOPHILS RELATIVE PERCENT (BEAKER) (test 0 % lvyq=078) NEUTROPHILS ABSOLUTE COUNT (BEAKER) (test 5.88 K/ L 1.80-8.00 rbqg=362) LYMPHOCYTES ABSOLUTE COUNT (BEAKER) (test 2.89 K/ L 1.48-4.50 arox=652) MONOCYTES ABSOLUTE COUNT (BEAKER) (test 0.80 K/ L 0.00-1.30 omwa=819) EOSINOPHILS ABSOLUTE COUNT (BEAKER) (test 0.20 K/ L 0.00-0.50 drdl=571) BASOPHILS ABSOLUTE COUNT (BEAKER) (test 0.05 K/ L 0.00-0.20 cuii=664) 0.00
--- NOTE | 2019-02-10 17:24 | RAD REPORT ---
EXAM DESCRIPTION: RAD - Chest Single View - 02/10/2019 5:14 pm CLINICAL HISTORY: CHEST PAIN Chest pain. COMPARISON: <Comparisons> FINDINGS: Portable technique limits examination quality. The lungs are grossly clear. The heart is normal in size. No displaced fractures. IMPRESSION: No acute intrathoracic process suspected.
[2019-02-10 17:33] LABS: Protime INR 0.97
[2019-02-10 17:34] LABS: Urine Blood NEGATIVE (NEG); Urine Glucose NEGATIVE (NEG); Urine Protein TRACE (NEG)
[2019-02-10 17:36] LABS: Basophils % 0.4 % (0-1.3); Eosinophils % 2.6 % (0-4.4); Hematocrit 39.9 % (36.0-45.0); Lymphocytes % 17.9 % (15.3-44.8); MPV 10.6 fL (7.6-11.3); Monocytes % 6.2 % (3.3-12.3); RBC Red Blood Cell Count 4.41 M/uL (3.86-4.86)
[2019-02-10 17:40] LABS: Urine Amorphous Sediment 4+ /HPF (NONE SEEN); Urine Bacteria >50 /HPF (<20); Urine Culture Reflex Order NOT NEEDED; Urine RBC <5 /HPF (NONE SEEN)
[2019-02-10 17:52] LABS: ALT/SGPT 29 U/L (12-78); AST/SGOT 15 U/L (15-37); Albumin 3.6 g/dL (3.4-5.0); Alkaline Phosphatase 61 U/L (45-117); BUN Blood Urea Nitrogen 16 mg/dL (7-18); Bicarbonate 25 mmol/L (21-32); Bilirubin Direct < 0.1 mg/dL (0-0.2); Bilirubin Total 0.2 mg/dL (0.2-1.0); Glucose Level 104 mg/dL (74-106); Lipase 154 U/L (73-393); NT PRO-BNP 44 pg/mL (<125); Potassium 3.8 mmol/L (3.5-5.1); Sodium Level 141 mmol/L (136-145); Troponin (Emerg Dept Use Only) < 0.02 ng/mL (0.0-0.045)
[2019-02-10] MEDS ORDERED: KETOROLAC 30 MG/ML INJ ONE (18:07)
[2019-02-10] MEDS ORDERED: ONDANSETRON 4 MG/2 ML VIAL ONE (18:07)
[2019-02-10] MEDS ORDERED: NA CHLORIDE 0.9% 1,000 ML ONE (18:08)
--- NOTE | 2019-02-10 18:36 | RAD REPORT ---
EXAM DESCRIPTION: CTAbdomen Pelvis W Contrast - 02/10/2019 6:07 pm CLINICAL HISTORY: Abdominal pain. ABD PAIN COMPARISON: Abdomen Pelvis W Contrast dated 08/11/2018 TECHNIQUE: Biphasic CT imaging of the abdomen and pelvis was performed with 100 ml non-ionic IV cont rast. All CT scans are performed using dose optimization technique as appropriate and may include automated exposure control or mA/KV adjustment according to patient size. FINDINGS: The lung bases are clear. The liver, spleen, pancreas, adrenal glands and kidneys are within normal limits. No bowel obstruction, free air, free fluid or abscess. Appendectomy. No evidence of significant lym phadenopathy. No suspicious bony findings. The cervix appears somewhat bulky in size, advise correlation with Pap s mear if not recently performed. IMPRESSION: No acute intra-abdominal or pelvic finding. Bulky appearance to the cervix is nonspecific, however advise Pap smear correlation if not recently p erformed.
--- NOTE | 2019-02-10 18:49 | ER ---
Nurse's Notes [facility] Name: Lauren Polanco Age: 29 yrs Sex: Female : 1990 Arrival Date: 02/10/2019 Time: 16:25 Bed 13 Private MD: Diagnosis: Abdominal and pelvic pain;Urinary tract infection, site not specified Presentation: 02/10 16:36 Presenting complaint: Patient states: i started bleeding from my vagina since September and i used tampon Saturday and when i took it out and it looks like its pus; today, i started hurting on my chest today and my stomach is bloated; denies chills; denies N?V;. Transition of care: patient was not received from another setting of care. Onset of symptoms was February 10, 2019. Risk Assessment: Do you want to hurt yourself or someone else? Patient reports no desire to harm self or others. Initial Sepsis Screen: Does the patient meet any 2 criteria? No. Patient's initial sepsis screen is negative. Does the patient have a suspected source of infection? No. Patient's initial sepsis screen is negative. Care prior to arrival: None. 16:36 Method Of Arrival: Ambulatory 16:36 Acuity: YANICK 3 hj Triage Assessment: 17:48 General: Appears. 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 - Social history:: Smoking status: . - Ebola Screening: : Patient denies travel to an Ebola-affected area in the 21 days before illness onset. Screenin:40 Abuse screen: Denies threats or abuse. Nutritional screening: No deficits noted. tw2 Tuberculosis screening: No symptoms or risk factors identified. Fall Risk None identified. Assessment: 16:50 Pain: Complains of pain in lumbar area, left low back and right low back Pain currently ls4 is 7 out of 10 on a pain scale. Quality of pain is described as aching. 16:50 General: Appears in no apparent distress. Behavior is calm, cooperative. GI: Bowel ls4 sounds present X 4 quads. Abd is soft and non tender X 4 quads. : Reports FLANK PAIN. Vital Signs: 16:39 BP 116 / 77; Pulse 63; Resp 18; Temp 98.2(O); Pulse Ox 100% on R/A; Weight 77.11 kg; hj Height 5 ft. 1 in. (154.94 cm); Pain 7/10; 18:00 BP 118 / 74; Pulse 60; Resp 16; Temp 98.4(O); Pulse Ox 99% on R/A; Pain 5/10; ls4 18:00 BP 116 / 71; Pulse 62; Resp 16; Temp 98.2(O); Pulse Ox 99% on R/A; Pain 3/10; ls4 16:39 Body Mass Index 32.12 (77.11 kg, 154.94 cm) hj ED Course: 16:25 Patient arrived in ED. rg4 16:38 Triage completed. hj 16:39 Arm band placed on left wrist. hj 16:40 Patient has correct armband on for positive identification. Bed in low position. Call ls4 light in reach. Side rails up X 1. 16:48 Suman Chavez MD is Attending Physician. kdr 16:56 EKG done, by nuclear medical technologist. reviewed by Suman Chavez MD. sm3 17:00 Carolann Pavon, ZOË is Primary Nurse. ls4 17:07 Inserted saline lock: 22 gauge in left antecubital area, using aseptic technique. Blood tw2 collected. Missed attempt(s): 22 gauge in right antecubital area. Bleeding controlled, band aid applied, catheter tip intact. 17:15 XRAY Chest (1 view) In Process Unspecified. EDMS 17:38 Radiology exam delayed due to lab results not completed at this time. (BUN/Creatinine). jg6 17:[address] jg6 18:09 CT Abd/Pelvis - IV Contrast Only In Process Unspecified. EDMS 18:11 LFT's Sent. ls4 19:11 No provider procedures requiring assistance completed. IV discontinued, intact, ls4 bleeding controlled, No redness/swelling at site. Pressure dressing applied. 02/11 07:12 Basic Metabolic Panel Sent. ls4 Administered Medications: 02/10 17:58 Drug: NS 0.9% 1000 ml Route: IV; Rate: 1 bolus; Site: left antecubital; ls4 18:30 Follow up: IV Status: Completed infusion; IV Intake: 1000ml ls4 18:30 Follow up: IV Status: Infusion continued; charted in error, infusion continued ls4 19:09 Follow up: IV Status: Completed infusion; IV Intake: 800ml ls4 02/11 07:09 Follow up: charted in error ls4 02/10 17:58 Drug: TORadol - Ketorolac 15 mg Route: IVP; Site: left antecubital; ls4 18:30 Follow up: Response: No adverse reaction; Marked relief of symptoms ls4 17:58 Drug: Zofran 4 mg Route: IVP; Site: left antecubital; ls4 18:30 Follow up: Response: No adverse reaction; Marked relief of symptoms ls4 18:40 Drug: Rocephin - (cefTRIAXone) 1 grams Route: IVPB; Infused Over: 10 mins; Site: left ls4 antecubital; 19:25 Follow up: Response: No adverse reaction; Medication administered at discharge.; IV tl2 Status: Completed infusion Intake: 19:09 IV: 800ml; Total: 800ml. ls4 Outcome: 18:47 Discharge ordered by . kdr 19:13 Discharged to home ambulatory. ls4 19:13 Condition: stable 19:13 Instructed on discharge instructions, follow up and referral plans. medication usage, safety practices, Demonstrated understanding of instructions, follow-up care, medications, Prescriptions given X 4. 19:25 Patient left the ED. tl2 Signatures: Dispatcher [employer] EDMS Suman Chavez MD MD [facility] Yahir Alberts RN RN Dagmar Meier RN RN 2 Renu Cline RN RN tl2 Kinjal Yates 4 Leti Vitale 3 Lauren Yates 6 Carolann Pavon RN RN ls4 Corrections: (The following items were deleted from the chart) 16:41 16:39 Pulse 63bpm; Resp 18bpm; Pulse Ox 100% RA; Temp 98.2F Oral; 77.11 kg; Height 5 hj ft. 1 in.; BMI: 32.1; Pain 7/10; hj 19:10 10:00 Rocephin - (cefTRIAXone) 1 grams IVPB in left antecubital over 30 mins ls4 ls4 19:11 18:40 (cefTRIAXone) 1 grams IVPB in left antecubital over 30 mins ls4 ls4 02/11 07:10 02/10 18:30 IV Status: Completed infusion; IV Intake: 1000ml ls4 ls4
--- NOTE | 2019-02-10 18:50 | EDPHYS ---
Physician Documentation [facility] Name: Lauren Polanco Age: 29 yrs Sex: Female : 1990 Arrival Date: 02/10/2019 Time: 16:25 Bed 13 Private MD: ED Physician Suman Chavez HPI: 02/11 13:05 This 29 yrs old Female presents to ER via Ambulatory with complaints of kdr Abdominal Pain, Back Pain, Chest Pain. 13:11 The patient presents with abdominal pain in the lower abdomen. Onset: The kdr symptoms/episode began/occurred gradually, The patient has been having pain and vaginal bleeding since September. Bleeding stopped three days ago and now her pain has returned. The symptoms do not radiate. Associated signs and symptoms: Pertinent positives: nausea and vomiting. The symptoms are described as crampy, intermittent, vague, waxing/waning. Modifying factors: The symptoms are alleviated by nothing, the symptoms are aggravated by breathing deeply, movement. Severity of pain: At its worst the pain was mild moderate in the emergency department the pain has improved mildly. The patient has experienced similar episodes in the past, multiple times, chronically. The patient has been recently seen by a physician: The patient has been recently seen at the [facility] Emergency Department, a couple of weeks ago. 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 - Social history:: Smoking status: . - Ebola Screening: : Patient denies travel to an Ebola-affected area in the 21 days before illness onset. ROS: 02/11 13:11 Constitutional: Negative for fever, chills, and weight loss, Eyes: Negative for injury, kdr pain, redness, and discharge, Neck: Negative for injury, pain, and swelling, Cardiovascular: Negative for chest pain, palpitations, and edema, Respiratory: Negative for shortness of breath, cough, wheezing, and pleuritic chest pain, Back: Negative for injury and pain, MS/Extremity: Negative for injury and deformity, Skin: Negative for injury, rash, and discoloration, Neuro: Negative for headache, weakness, numbness, tingling, and seizure activity. Psych: Negative for depression, anxiety, suicide ideation, homicidal ideation, and hallucinations, Allergy/Immunology: Negative for hives, rash, and allergies, Endocrine: Negative for neck swelling, polydipsia, polyuria, polyphagia, and marked weight changes, Hematologic/Lymphatic: Negative for swollen nodes, abnormal bleeding, and unusual bruising. Abdomen/GI: Positive for abdominal pain, nausea and vomiting, abdominal cramps, abdominal distension, Negative for black/tarry stool, rectal pain, rectal bleeding, bowel incontinence. : Positive for vaginal bleeding, Negative for urinary symptoms, urinary frequency, small amounts, hematuria, vaginal itching. Exam: 13:11 Constitutional: This is a well developed, well nourished patient who is awake, alert, kdr and in no acute distress. Head/Face: Normocephalic, atraumatic. Eyes: Pupils equal round and reactive to light, extra-ocular motions intact. Lids and lashes normal. Conjunctiva and sclera are non-icteric and not injected. Cornea within normal limits. Periorbital areas with no swelling, redness, or edema. Neck: Trachea midline, no thyromegaly or masses palpated, and no cervical lymphadenopathy. Supple, full range of motion without nuchal rigidity, or vertebral point tenderness. No Meningismus. Chest/axilla: Normal chest wall appearance and motion. Nontender with no deformity. No lesions are appreciated. Cardiovascular: Regular rate and rhythm with a normal S1 and S2. No gallops, murmurs, or rubs. Normal PMI, no JVD. No pulse deficits. Respiratory: Lungs have equal breath sounds bilaterally, clear to auscultation and percussion. No rales, rhonchi or wheezes noted. No increased work of breathing, no retractions or nasal flaring. Back: No spinal tenderness. No costovertebral tenderness. Full range of motion. Skin: Warm, dry with normal turgor. Normal color with no rashes, no lesions, and no evidence of cellulitis. MS/ Extremity: Pulses equal, no cyanosis. Neurovascular intact. Full, normal range of motion. Neuro: Awake and alert, GCS 15, oriented to person, place, time, and situation. Cranial nerves II-XII grossly intact. Motor strength 5/5 in all extremities. Sensory grossly intact. Cerebellar exam normal. Normal gait. Psych: Awake, alert, with orientation to person, place and time. Behavior, mood, and affect are within normal limits. 13:11 Abdomen/GI: Palpation: soft, in all quadrants, mild abdominal tenderness, in the suprapubic area, right lower quadrant and left lower quadrant, mass, is not appreciated, rebound tenderness, is not appreciated. Vital Signs: 02/10 16:39 BP 116 / 77; Pulse 63; Resp 18; Temp 98.2(O); Pulse Ox 100% on R/A; Weight 77.11 kg; hj Height 5 ft. 1 in. (154.94 cm); Pain 7/10; 18:00 BP 118 / 74; Pulse 60; Resp 16; Temp 98.4(O); Pulse Ox 99% on R/A; Pain 5/10; ls4 18:00 BP 116 / 71; Pulse 62; Resp 16; Temp 98.2(O); Pulse Ox 99% on R/A; Pain 3/10; ls4 16:39 Body Mass Index 32.12 (77.11 kg, 154.94 cm) MDM: 18:47 Patient medically screened. [facility] 02/11 13:11 Data reviewed: vital signs, nurses notes. Counseling: I had a detailed discussion with kdr the patient and/or guardian regarding: the historical points, exam findings, and any diagnostic results supporting the discharge/admit diagnosis, lab results, radiology results, the need for outpatient follow up. ED course: The patient was stable and non-acute in the ED. She was discharged in good condition. 02/10 16:48 Order name: Basic Metabolic Panel [facility] 02/10 16:48 Order name: CBC with Diff; Complete Time: 18:23 [facility] 02/10 16:48 Order name: LFT's [facility] 02/10 16:48 Order name: Magnesium; Complete Time: 18:23 [facility] 02/10 16:48 Order name: NT PRO-BNP; Complete Time: 18:23 [facility] 02/10 16:48 Order name: PT-INR; Complete Time: 18:23 [facility] 02/10 16:48 Order name: Troponin (emerg Dept Use Only); Complete Time: 18:23 [facility] 02/10 16:48 Order name: Creatinine for Radiology; Complete Time: 18:23 kdr 02/10 16:48 Order name: Lipase; Complete Time: 18:23 kdr 02/10 16:50 Order name: Basic Metabolic Panel; Complete Time: 18:23 EDMS 18 16:50 Order name: Liver (Hepatic) Function; Complete Time: 18:23 EDMS 18 17:17 Order name: Urine Microscopic Only; Complete Time: 18:23 ss 18 17:20 Order name: Urine Dipstick--Ancillary (enter results); Complete Time: 18:23 bd 02/10 17:21 Order name: Urine --Ancillary (enter results); Complete Time: 18:23 bd 02/10 16:45 Order name: EKG; Complete Time: 16:46 hj 02/10 16:48 Order name: XRAY Chest (1 view); Complete Time: 18:23 kdr 02/10 16:48 Order name: Cardiac monitoring; Complete Time: 18:11 kdr 02/10 16:48 Order name: EKG - Nurse/Tech; Complete Time: 18:11 kdr 02/10 16:48 Order name: IV Saline Lock; Complete Time: 17:06 kdr 02/10 16:48 Order name: Labs collected and sent; Complete Time: 17:06 kdr 02/10 16:48 Order name: O2 Per Protocol; Complete Time: 17:18 kdr 02/10 16:48 Order name: O2 Sat Monitoring; Complete Time: 17:18 kdr 18 17:31 Order name: CT Abd/Pelvis - IV Contrast Only; Complete Time: 18:46 kdr Administered Medications: 02/10 17:58 Drug: NS 0.9% 1000 ml Route: IV; Rate: 1 bolus; Site: left antecubital; ls4 18:30 Follow up: IV Status: Completed infusion; IV Intake: 1000ml ls4 18:30 Follow up: IV Status: Infusion continued; charted in error, infusion continued ls4 19:09 Follow up: IV Status: Completed infusion; IV Intake: 800ml ls4 02/11 07:09 Follow up: charted in error ls4 02/10 17:58 Drug: TORadol - Ketorolac 15 mg Route: IVP; Site: left antecubital; ls4 18:30 Follow up: Response: No adverse reaction; Marked relief of symptoms ls4 17:58 Drug: Zofran 4 mg Route: IVP; Site: left antecubital; ls4 18:30 Follow up: Response: No adverse reaction; Marked relief of symptoms ls4 18:40 Drug: Rocephin - (cefTRIAXone) 1 grams Route: IVPB; Infused Over: 10 mins; Site: left ls4 antecubital; 19:25 Follow up: Response: No adverse reaction; Medication administered at discharge.; IV tl2 Status: Completed infusion Disposition: 02/10/19 18:47 Discharged to Home. Impression: Abdominal and pelvic pain, Urinary tract infection, site not specified. - Condition is Stable. - Discharge Instructions: Urinary Tract Infection, Adult, [id number], Abdominal Pain, Adult, [id number]. - Prescriptions for Bentyl 20 mg Oral Tablet - take 1 tablet by ORAL route every 6 hours As needed; 20 tablet. Pepcid 20 mg Oral Tablet - take 1 tablet by ORAL route every 12 hours for 5 days; 10 tablet. Zofran 4 mg Oral Tablet - take 1 tablet by ORAL route every 12 hours As needed; 6 tablet. Tramadol 50 mg Oral Tablet - take 1 tablet by ORAL route every 8 hours as needed; 12 tablet. Bactrim DS 800- 160 mg Oral Tablet - take 1 tablet by ORAL route every 12 hours for 10 days; 20 tablet. - Medication Reconciliation Form, Thank You Letter, Prescription Opioid Use form. - Follow up: Private Physician; When: 2 - 3 days; Reason: If symptoms return, Further diagnostic work-up, Recheck today's complaints, Continuance of care, Re-evaluation by your physician. - Problem is an ongoing problem. - Symptoms have improved. Signatures: Dispatcher [employer] EDMS Suman Chavez MD MD [facility] Yahir Alberts RN RN hj Dagmar Meier RN RN tw2 Renu Cline RN RN tl2 Carolann Pavon, RN RN ls4 Corrections: (The following items were deleted from the chart) 18:50 18:47 02/10/2019 18:47 Discharged to Home. Impression: Abdominal and pelvic pain. kdr Condition is Stable. Forms are Medication Reconciliation Form, Thank You Letter, Antibiotic Education, Prescription Opioid Use. Follow up: Private Physician; When: 2 - 3 days; Reason: If symptoms return, Further diagnostic work-up, Recheck today's complaints, Continuance of care, Re-evaluation by your physician. Problem is an ongoing problem. Symptoms have improved. kdr 19:25 18:50 02/10/2019 18:47 Discharged to Home. Impression: Abdominal and pelvic pain; tl2 Urinary tract infection, site not specified. Condition is Stable. Discharge Instructions: Abdominal Pain, Adult, [id number], Urinary Tract Infection, Adult, [id number]. Prescriptions for Bentyl 20 mg Oral Tablet - take 1 tablet by ORAL route every 6 hours As needed; 20 tablet, Pepcid 20 mg Oral Tablet - take 1 tablet by ORAL route every 12 hours for 5 days; 10 tablet, Zofran 4 mg Oral Tablet - take 1 tablet by ORAL route every 12 hours As needed; 6 tablet, Tramadol 50 mg Oral Tablet - take 1 tablet by ORAL route every 8 hours as needed; 12 tablet, Bactrim DS 800-160 mg Oral Tablet - take 1 tablet by ORAL route every 12 hours for 10 days; 20 tablet. and Forms are Medication Reconciliation Form, Thank You Letter, Prescription Opioid Use. Follow up: Private Physician; When: 2 - 3 days; Reason: If symptoms return, Further diagnostic work-up, Recheck today's complaints, Continuance of care, Re-evaluation by your physician. Problem is an ongoing problem. Symptoms have improved. kdr
[2019-02-10] MEDS ORDERED: CEFTRIAXONE/SWI 1gm 1 GM/10 ML SYR ONE (19:16)
[2019-02-10 20:14] VITALS: TEMP 98.2
[2019-02-10 20:17] VITALS: BP 116/71; O2SAT 99
--- NOTE | 2019-02-11 07:56 | EKG ---
Test Date: 2019-02-10 Test Time: 16:41:47 Software Configuration Manager: BELEM MEASUREMENT RESULTS: Intervals: Rate: 60 NJ: 146 QRSD: 90 QT: 416 QTc: 416 [place]: P: 22 NJ: 146 QRS: 53 T: 38 INTERPRETIVE STATEMENTS: Normal sinus rhythm Normal ECG Compared to ECG 01/09/2017 15:32:18 Sinus arrhythmia no longer present Electronically Signed On 02-11-19 07:55:[address] De La Rosa
== END 2019-02-10 19:25 | disposition home or self-care (01) ==
LOC: ER 16:20
DX: N39.0 Urinary tract infection, site not specified (principal); D68.0 Von Willebrand disease; Z88.1 Allergy status to other antibiotic agents
CPT/HCPCS: 36415; 71045; 74177; 80048; 80076; 81003; 81015; 81025; 83690; 83735; 83880; 84484; 85025; 85610; 93005; 96361; 96365; 96375; 99284; J0696; J2405; J7030; Q9967

== ENCOUNTER 2019-02-11 17:32 | Emergency (ER) | payer SELFPAY ==
--- OUTSIDE RECORDS SUMMARY | 2019-02-11 17:34 | XMS REPORT | Clinical Summary ---
:1990 Author Organization [facility] Address [address] [place] [address] Care Team Providers Name Role Phone Unavailable [...] Not on file Results Not on fileafter 02/10/2018 Insurance Payer Benefit Plan / Subscriber ID Type Phone Address Group MEDICAID - MEDICAID MEDICAID COMM xxxxxxxxx Medicaid Contracted [facility] C[facility] HEALTH CHOICE Advance Directives For more information, please contact:[facility] [id number] [place] [address] [phone] Code Status Date Activated Date Inactivated Comments Full Code 01/09/2017 11:25 PM 01/11/2017 1:21 PM This code status was determined by: Patient
--- OUTSIDE RECORDS SUMMARY | 2019-02-11 17:38 | XMS REPORT | Continuity of Care Document ---
:1990 Author Organization Interface Problems Problem Status Onset Classification Date Comments Source Date Reported 36WEEKS , Active [facility] PAINS, 7 Medical SPOTTING Center Discharge 08/05/2017 [facility] Diagnosis: 7 Medical Center 32WKS/SYNCOPE Active [place] [address] [facility] Center Active Problem 08/26/[address] Center VAG DISCHG Active [address] Center CTX'S Active [address] Center CX Active [address] VAGINAL Active [facility] DELIVERY [address] [place] [address] LEAKING FLUID Active [address] Asthma Active Problem 08/26/2017 [facility] Chlamydia Resolved Problem 08/26/2017 [facility] Von Willebrand Active Problem 08/26/2017 [facility] disease [facility] Bipolar 1 Resolved Problem 08/26/2017 [facility] Premature Active Problem 08/26/2017 [facility] labor [facility] Active [facility] RELATED Medical CONDITIONS, Center UNSP, UNSP LABOR Active [facility] WITH Medical DELIVERY, [facility] Center Medications Medication Details Route Status Patient Ordering Order Source Instructions Provider Date multivitamin, 1 tab, Route: No Longer [facility] PO, Drug Form: Active 2017 Medical TAB, Dosing Center Weight 88.182, kg, Daily, Start date: 08/24/17 9:00:00 TRAFFIC OPERATOR, Duration: 30 day, Stop date: 09/22/17 9:00:00 TRAFFIC OPERATOR Cholecalciferol PO, Daily, 0 Active 08/24/ [facility] 400 UNT / Folic Refill(s) 2017 Medical Acid 1 MG / Center pyridoxine 2 MG / Riboflavin 1.7 MG / Vitamin B 12 0.008 MG Chewable Tablet penicillin G 2,500,000 unit, Inactive [facility] potassium 50 mL, Route: 2016 [facility] IVPB, Drug Center form: INJ, ABXQ4H, Dosing Weight 88.182, kg, Start date: 08/23/17 10:30:00 TRAFFIC OPERATOR, Duration: 30 day, Stop date: 09/22/17 6:30:00 TRAFFIC OPERATOR antihemophilic 1,399 unit, Inactive [facility] factor-von Route: IV, Drug 2016 Medical Willebrand factor form: INJ, Center ONCALL, Start date: 08/23/17 8:00:00 TRAFFIC OPERATOR, Duration: 30 day, Stop date: 09/22/17 7:59:00 CSTNotes: Note - 100 AHF hknlb=[id number] RCOF units. Call 2 Hours Ahead for the next dose Penicillin G 2,500,000 unit, Inactive [facility] 50 mL, Route: 2016 Medical IVPB, Drug Center form: INJ, ABXQ4H, Dosing Weight 88.182, kg, Start date: 08/23/17 5:00:00 TRAFFIC OPERATOR, Duration: 30 day, Stop date: 09/22/17 1:00:00 TRAFFIC OPERATOR Fentanyl 600 microgram, Inactive [facility] 30 mL, Route: 2016 Medical IV, CHIEF PETROLEUM ENGINEER Dose: [facility] 10 mcg, CHIEF PETROLEUM ENGINEER Lockout: 10 minutes, Continuous Basal Rate: 0 mg, 4 Hour Limit (In MCG): 240, Drug Form: INJ, Continuous, Start date: 08/23/17 4:34:00 TRAFFIC OPERATOR, Duration: 30 day, Stop date: 09/22/17 4:33:00 CSTNotes: Concentration is 20 micrograms/ml Naloxone 0.04 mg, 0.1 Inactive [facility] mL, Route: IVP, 2016 Medical Drug form: INJ, Center Q2MIN, Dosing Weight 88.182, kg, PRN Narcotic Reversal, Start date: 08/23/17 4:34:00 TRAFFIC OPERATOR, Duration: 30 day, Stop date: 09/22/17 4:33:00 CSTNotes: Same as Narcan Carboprost 250 microgram, Inactive [facility] 1 mL, Route: 2016 Medical IM, Drug form: Center INJ, ONCALL, Dosing Weight 88.182, kg, Start date: 08/23/17 1:00:00 TRAFFIC OPERATOR, Duration: 30 day, Stop date: 09/22/17 0:59:00 CSTNotes: (Same As: Hemabate) Famotidine 20 mg, 2 mL, Inactive [facility] Route: IVP, 2016 Medical Drug form: INJ, Center ONCALL, Dosing Weight 88.182, kg, Start date: 08/23/17 1:00:00 TRAFFIC OPERATOR, Duration: 30 day, Stop date: 09/22/17 0:59:00 CSTNotes: (Same as: Pepcid) Can be dilute in 5-10cc NS IVP: Slow IV push over at least 2 minutes. Methylergonovine 0.2 mg, 1 mL, Inactive [place] Route: IM, Drug 2016 Medical form: INJ, Center ONCALL, Dosing Weight 88.182, kg, Start date: 08/23/17 1:00:00 TRAFFIC OPERATOR, Duration: 30 day, Stop date: 09/22/17 0:59:00 CSTNotes: (Same as:Methergine) Citric Acid / 30 mL, Route: Inactive [place] sodium citrate PO, Drug Form: 2016 Medical SOLN, Dosing Center Weight 88.182, kg, ONCALL, Start date: 08/23/17 1:00:00 TRAFFIC OPERATOR, Duration: 30 day, Stop date: 09/22/17 0:59:00 CSTNotes: (Same As: Bicitra, Cytra-2) Sodium citrate-citric acid (500-334 mg/5 mL): 1 mL contains sodium 1 mEq/mL and bicarbonate 1 mEq/mL Misoprostol 1,000 Inactive [place] microgram, 5 2017 Medical tab, Route: NV, Center Drug form: TABDESIALL, Dosing Weight 88.182, kg, Start date: 08/23/17 1:00:00 TRAFFIC OPERATOR, Duration: 1 doses or timesNotes: (Same as:Cytotec) Take with food Penicillin G 5,000,000 unit, Inactive [place] Potassium [id number] Route: IVPB, 2017 Medical UNT/ML Injectable Drug form: [facility] Solution PDR/INJ, ONCALL, Dosing Weight 88.182, kg, Start date: 08/23/17 1:00:00 TRAFFIC OPERATOR, Duration: 30 day, Stop date: 09/22/17 0:59:00 CSTNotes: (Same as: Pfizerpen) MEDICATION WASTE Product Size: 5,000,000 unit Product Wasted: ___ unit Ondansetron 4 mg, 2 mL, Inactive [place] Route: IVP, 2017 Medical Drug form: INJ, Center Q8H, Dosing Weight 88.182, kg, PRN Nausea & Vomiting, Start date: 08/23/17 0:04:00 TRAFFIC OPERATOR, Duration: 30 day, Stop date: 09/22/17 0:03:00 CSTNotes: (Same as: Zofran) MEDICATION WASTE Product Size: 4 mg Product Wasted: ___ mg Terbutaline 0.25 mg, 0.25 Inactive [place] mL, Route: 2017 Medical SUB-Q, Drug Center form: INJ, PRN, Dosing Weight 88.182, kg, PRN Other -See Comment, Start date: 08/23/17 0:04:00 TRAFFIC OPERATOR, Duration: 1 doses or times, Stop date: Limited # of timesNotes: DO NOT USE IN HANDS HANGER AREA (Same As: Brethine) Lidocaine 200 mg, 20 mL, Inactive [facility] Hydrochloride 10 Route: PERCUT, 2017 Medical MG/ML Injectable Drug Form: INJ, Center Solution Dosing Weight 88.182, kg, PRN, PRN Other -See Comment, Start date: 08/23/17 0:04:00 TRAFFIC OPERATOR, Duration: 1 doses or times, Stop date: Limited # of timesNotes: (Same as: Xylocaine) Ibuprofen 600 mg, 1 tab, Inactive [place] Route: PO, Drug 2016 Medical form: TAB, Q6H, Center Dosing Weight 88.182, kg, PRN Other -See Comment, Start date: 08/23/17 0:04:00 TRAFFIC OPERATOR, Duration: 30 day, Stop date: 09/22/17 0:03:00 CSTNotes: (Same as: Motrin) "Do Not Crush" Take with food. Oxytocin 30 unit, 500 Inactive [facility] mL, Rate: 42 2017 Medical ml/hr, Infuse Center over: 11.9 hr, Dosing Weight 88.182, kg, Route: IV, Total Volume: 500 mL, Start date: 08/23/17 0:04:00 TRAFFIC OPERATOR, Duration: 2 day, Stop date: 08/25/17 0:03:00 TRAFFIC OPERATOR, Replace Every: 11.9 hr Calcium Chloride 1,000 mL, 1,000 Inactive [facility] 0.0014 MEQ/ML / ml/hr, Infuse 2017 Medical Potassium Chloride Over: 1 hr, Center 0.004 MEQ/ML / Route: IV, Sodium Chloride 1,000, Drug 0.103 MEQ/ML / form: INJ, Sodium Lactate ONCE, Dosing 0.028 MEQ/ML Weight 88.182 Injectable kg, Start date: Solution 08/23/17 0:04:00 TRAFFIC OPERATOR, Stop date: 08/23/17 0:04:00 TRAFFIC OPERATOR, Bolus for regional anesthesia per unit protocol Lactated Ringers 1,000 mL, Rate: Inactive [place] IV 1,000 mL 125 ml/hr, 2017 Medical Infuse over: 8 Center hr, Route: IV, Dosing Weight 88.182 kg, Total Volume: 1,000, Start date: 08/23/17 0:04:00 TRAFFIC OPERATOR, Duration: 30 day, Stop date: 09/22/17 0:03:00 TRAFFIC OPERATOR, 1.98, m2 0 Refill(s) Active [facility] Multivitamins with 2017 Medical Folic Acid 0.8 mg Center oral kit Nitrofurantoin 100 100 mg=1 cap, Active [place] MG Oral Capsule PO, BID, X 7 2016 Medical [Macrobid] day, # 14 cap, Center 0 Refill(s) Depo-Provera 150 mg, 1 mL, Inactive [facility] Route: IM, Drug 2015 Medical [...] Ibuprofen 600 mg, 1 tab, No Longer [place] Route: PO, Drug Active 2015 Medical form: TAB, Q6H, Center Dosing Weight 87.727, kg, PRN Pain Score 4-6, Start date: 12/04/15 16:36:00 CDT, Duration: 30 day, Stop date: 01/03/16 16:35:00 CDTNotes: (Same as: Motrin) "Do Not Crush" Take with food. Acetaminophen 650 mg, 2 tab, No Longer [place] Route: PO, Drug Active 2015 Medical form: TAB, Q4H, Center Dosing Weight 87.727, kg, PRN Pain Score 1-3, Start date: 12/04/15 16:36:00 CDT, Duration: 30 day, Stop date: 01/03/16 16:35:00 CDTNotes: Do not exceed 4 gm/day. (Same as: Tylenol) Bisacodyl 10 mg, 1 supp, No Longer [place] Route: NV, Drug Active 2015 Medical form: SUPP, Center PRN, Dosing Weight 87.727, kg, PRN Other -See Comment, Start date: 12/04/15 16:36:00 CDT, Duration: 30 day, Stop date: 01/03/16 16:35:00 CDTNotes: (Same As: Dulcolax, Bisco-Lax) lanolin topical 1 appl, Route: No Longer [place] TOP, PRN, Drug Active 2015 Medical form: OINT, PRN Center Other -See Comment, Start date: 12/04/15 16:36:00 CDT, Duration: 30 day, Stop date: 01/03/16 16:35:00 CDTNotes: (Same as:Lanolin) zolpidem 5 mg, 1 tab, No Longer [facility] Route: PO, Drug Active 2015 Medical form: TAB, Center Bedtime, Dosing Weight 87.727, kg, PRN Sleep, Start date: 12/04/15 16:36:00 CDT, Duration: 30 day, Stop date: 01/03/16 16:35:00 CDTNotes: (Same As: Ambien) Methylergonovine 0.2 mg, 1 mL, No Longer [place] Route: IM, Drug Active 2015 Medical form: INJ, PRN, Center Dosing Weight 87.727, kg, PRN Other -See Comment, Start date: 12/04/15 16:36:00 CDT, Duration: 30 day, Stop date: 01/03/16 16:35:00 CDTNotes: (Same as:Methergine) Benzocaine 200 1 spray, Route: No Longer [place] MG/ML Topical TOP, PRN, Drug Active 2015 Medical Onyx [Dermoplast] form: SPRY, PRN Center Irritation, Start date: 12/04/15 16:36:00 CDT, Duration: 30 day, Stop date: 01/03/16 16:35:00 CDTNotes: (Same As: Dermoplast) WASTE: Aerosol - Return to Pharmacy FOR EXTERNAL USE ONLY Ondansetron 4 mg, 2 mL, No Longer [place] Route: IVP, Active 2015 Medical Drug form: INJ, Center Q8H, Dosing Weight 87.727, kg, PRN Nausea & Vomiting, Start date: 12/04/15 16:36:00 CDT, Duration: 30 day, Stop date: 01/03/16 16:35:00 CDTNotes: (Same as: Zofran) MEDICATION WASTE Product Size: 4 mg Product Wasted: ___ mg Docusate 100 mg, 1 cap, No Longer [place] Route: PO, Drug Active 2015 Medical form: CAP, BID, Center Dosing Weight 87.727, kg, PRN Constipation, Start date: 12/04/15 16:36:00 CDT, Duration: 30 day, Stop date: 01/03/16 16:35:00 CDTNotes: (Same as: Colace) (Do Not Crush) Lactated Ringers 1,000 mL, Rate: No Longer [place] IV 1,000 mL 100 ml/hr, Active 2015 Medical Infuse over: 10 Center hr, Route: IV, Dosing Weight 87.727 kg, Total Volume: 1,000, Start date: 12/04/15 16:36:00 CDT, Duration: 30 day, Stop date: 01/03/16 16:35:00 CDT Oxytocin 0.06 30 unit, 500 No Longer [place] UNT/ML Injectable mL, Rate: 42 Active 2015 Medical Solution ml/hr, Infuse Center over: 11.9 hr, Dosing Weight 87.727, kg, Route: IV, Total Volume: 500 mL, Start date: 12/04/15 16:36:00 CDT, Duration: 2 doses or times, Stop date: 12/05/15 16:23:00 CDT, Replace Every: 11.9 hrNotes: (Same as: OXYTOCIN-D5LR) betamethasone 12 mg, 2 mL, No Longer [place] Route: IM, Drug Active 2015 Medical form: [...] unit Oxytocin 0.06 30 unit, 500 Inactive [place] UNT/ML Injectable mL, Rate: 2015 Medical Solution Titrate, Dosing Center Weight 87.727, kg, Route: IV, Total Volume: 500 mL, Start date: 12/04/15 13:04:00 CDT, Duration: 2 day, Stop date: 12/06/15 13:03:00 CDT, Replace Every: 24 hrNotes: (Same as: OXYTOCIN-D5LR) Penicillin G 5,000,000 unit, Inactive [place] Potassium [id number] Route: IVPB, 2016 Medical UNT/ML Injectable Drug form: [facility] Solution PDR/INJ, ONCALL, Dosing Weight 88.636, kg, [...] [place] microgram, 5 2016 Medical tab, Route: NV, Center Drug form: TAB, ONCALL, Dosing Weight [...] Rate: No Longer [place] 0.9% (titrate) 250 customer 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 2015 Medical mL with [...] # of timesNotes: DO NOT USE IN HANDS HANGER AREA (Same As: Brethine) Butorphanol 1 mg, 0.5 mL, Inactive [place] Route: IVP, 2015 Medical Drug form: INJ, Center Q2H, Dosing Weight 88.636, kg, PRN Pain Score 1-5, Start date: 12/04/15 9:05:00 CDT, Duration: 30 day, Stop date: 01/03/16 9:04:00 CDTNotes: (Same As: Stadol) MEDICATION WASTE Product Size: 2 mg Product Wasted: ___ mg Ondansetron 4 mg, 2 mL, Inactive [facility] Route: IVP, 2016 Medical Drug form: INJ, Center Q8H, Dosing Weight 88.636, kg, PRN Nausea & Vomiting, Start date: 12/04/15 9:05:00 CDT, Duration: 30 day, Stop date: 01/03/16 9:04:00 CDTNotes: (Same as: Zofran) MEDICATION WASTE Product Size: 4 mg Product Wasted: ___ mg Oxytocin 0.06 30 unit, 500 Inactive [facility] UNT/ML Injectable mL, Rate: 42 2015 Medical Solution ml/hr, Infuse Center over: 11.9 hr, Dosing Weight 88.636, kg, Route: IV, Total Volume: 500 mL, Start date: 12/04/15 9:05:00 CDT, Duration: 2 day, Stop date: 12/06/15 9:04:00 CDT, Replace Every: 11.9 hrNotes: (Same as: OXYTOCIN-D5LR) Lactated Ringers 1,000 mL, Rate: Inactive [facility] IV 1,000 mL 125 ml/hr, 2016 Medical Infuse over: 8 Center hr, Route: IV, Dosing Weight 88.636 kg, Total Volume: 1,000, Start date: 12/04/15 9:05:00 CDT, Duration: 30 day, Stop date: 01/03/16 9:04:00 CDT Calcium Chloride 1,000 mL, 1,000 Inactive [facility] 0.0014 MEQ/ML / ml/hr, Infuse 2015 [facility] Potassium Chloride Over: 1 hr, Center 0.004 MEQ/ML / Route: IV, Sodium Chloride 1,000, Drug 0.103 MEQ/ML / form: INJ, Sodium Lactate ONCE, Dosing 0.028 MEQ/ML Weight 88.636 Injectable kg, Start date: Solution 12/04/15 9:05:00 CDT, Stop date: 12/04/15 9:05:00 CDT, Bolus for regional anesthesia per unit protocol Phenergan 25 mg, 1 mL, Inactive [facility] Route: IM, Drug 2015 Medical form: INJ, Center ONCE, Dosing Weight 88.636, kg, Start date: 12/01/15 5:42:00, Stop date: 12/01/15 5:42:00Notes: Do not give IV push. (Same as: Phenergan) Demerol HCl 50 mg, 2 mL, Inactive [facility] Route: IM, Drug 2015 Medical form: INJ, Center ONCE, Dosing Weight 88.636, kg, Start date: 12/01/15 5:41:00, Stop date: 12/01/15 5:41:00Notes: (Same as: Demerol) "Use Precaution in Elderly, Seizure disorders, and Renal impairment" [facility] 1,000 mg, 100 Inactive [place] mL, Route: IV, 2016 Medical Drug form: INJ, Center ONCE, Dosing Weight 88.636, kg, Start date: 12/01/15 4:04:00, Stop date: 12/01/15 4:04:00Notes: Infuse over 15 minutes Do not exceed 4gm/day of acetaminophen MEDICATION WASTE Product Size: 1000 mg Product Wasted: ___ mg Calcium Chloride 1,000 mL, Rate: Inactive [place] 0.0014 MEQ/ML / 125 ml/hr, 2015 [facility] Potassium Chloride Infuse over: 8 Center 0.004 MEQ/ML / hr, Route: IV, Sodium Chloride Dosing Weight 0.103 MEQ/ML / 88.636 kg, Sodium Lactate Total Volume: 0.028 MEQ/ML 1,000, Start Injectable date: 12/01/15 Solution 3:15:00, Duration: 30 day, Stop date: 12/31/15 3:14:00 Metronidazole 500 500 mg=1 tab, Active [facility] MG Oral Tablet PO, BID, X 7 2015 [Flagyl] , # 14 tab, Center 0 Refill(s) Allergies, Adverse Reactions, Alerts Substance Category Reaction Severity Reaction Status Date Comments Source type Reported traMADol Assertion Drug Active [facility] Immunizations Immunization Date Given Site Status Last Updated Comments Source Results Order Name Results Value Reference Date Interpretation Comments Source Range HEMATOLOGY PTT 26.5 s 22.9 - 12 [place] 35.8 /2017 [facility] HEMATOLOGY INR 0.97 0.85 - 08/23 [place] 1.17 /2016 [facility] HEMATOLOGY PT 12.9 s 12.0 - 08/23 [facility] 14. [facility] HEMATOLOGY vWF Assay 101 % 45 - 140 08/23 [facility] HEMATOLOGY vWF Antigen 213 % 45 - 165 08/23 [facility] DRUG SCREEN U Propoxyph Negative Negative 08/23 [facility] (08/23/17 2:03 AM) DRUG SCREEN U Methadone Negative Negative 08/23 [facility] (08/23/17 2:03 AM) DRUG SCREEN UDS Note See Note 08/23 [facility] (08/23/17 2:03 AM) [facility] DRUG SCREEN U Phencyc Scr Negative Negative 08/23 [facility] (08/23/17 2:03 AM) DRUG SCREEN U Opiate Scr Negative Negative 08/23 [facility] (08/23/17 2:03 AM) DRUG SCREEN U Benzodia Negative Negative 08/23 [facility] (08/23/17 2:03 AM) DRUG SCREEN U Cannab Scr Negative Negative 08/23 [facility] (08/23/17 2:03 AM) DRUG SCREEN U Cocaine Scr Negative Negative 08/23 [facility] (08/23/17 2:03 AM) DRUG SCREEN U Cydney Scr Negative Negative 08/23 [facility] (08/23/17 2:03 AM) DRUG SCREEN U Amph Scr Negative Negative 08/23 [facility] (08/23/17 2:03 AM) BLOOD BANK RBC product Product available 08/23 [facility] (08/23/17 1:54 AM) [facility] BLOOD BANK Path AB Transfusio 08/23 [facility] RESULTS n [facility] Physician [facility] Services e patient is a 27 y/o [...] the resident's , Dr. Camp, interpreta tion.CPT: 52975-EM BLOOD BANK Antibody Scrn Positive 1 08/23 Result Comment: 08/23/2017 04 :06 [id number] [facility] "Significant Findings called to Marcy SETELE at 0404 by DOMENICO. Read Back OK." [facility] (08/23/17 12:36 AM) [facility] 08/23/2017 04:04 [id number] Patient has unexpected antibodies. Allow extra time for additional crossmatches. BLOOD BANK ABO/Rh A NEG 08/23 [facility] BLOOD BANK AB Int Rhig 08/23 [facility] RESULTS Anti-D [facility] HEMATOLOGY Segs-Bands # 9.8 K/CMM 1.5 - 8.1 08/[address] HEMATOLOGY Lymphocytes # 2.5 K/CMM 1.0 - 5.5 08/[address] HEMATOLOGY Monocytes # 0.9 K/CMM 0.0 - 0.8 08/[address] HEMATOLOGY Eosinophils # 0.2 K/CMM 0.0 - 0.5 08/[address] HEMATOLOGY Basophils # 0.1 K/CMM 0.0 - 0.2 08/[address] HEMATOLOGY Lymphocytes 18.6 % 20.0 - 08/23 [place] 40.0 [facility] HEMATOLOGY Monocytes 6.7 % 2.0 - 12.0 08/[address] HEMATOLOGY Eosinophils 1.1 % 0.0 - 4.0 08/[address] HEMATOLOGY Basophils 0.4 % 0.0 - 1.0 08/[address] HEMATOLOGY Segs 73.2 % 45.0 - 08/23 [facility] 75.0 [facility] HEMATOLOGY Factor VIII 255 % 50 - 242 08/[address] HEMATOLOGY MPV 9.9 fL 7.4 - 10.4 08/23 [facility] HEMATOLOGY MCHC 33.5 g/dL 32.0 - 08/23 [facility] 36.0 [facility] HEMATOLOGY MCH 27.4 pg 27.0 - 08/23 [facility] 31.0 [facility] HEMATOLOGY Hct 33.5 % 36.0 - 08/23 [facility] 48.0 [facility] HEMATOLOGY MCV 82.0 fL 80.0 - 08/23 [facility] 98.0 [facility] HEMATOLOGY Hgb 11.2 g/dL 12.0 - 08/23 [facility] 16.0 [facility] HEMATOLOGY Platelet 215 K/CMM 133 - 450 08/23 [facility] HEMATOLOGY RDW 15.4 % 11.5 - 08/23 [facility] 14.5 [facility] HEMATOLOGY RBC 4.09 M/CMM 4.20 - 08/23 [facility] 5.40 [facility] HEMATOLOGY WBC 13.4 K/CMM 3.7 - 10.4 08/23 [facility] IMMUNOLOGY Hep Bs Ag Negative [facility] (08/23/17 12:36 AM) IMMUNOLOGY HIV. Negative Negative 08/23 [facility] (08/23/17 12:36 AM) IMMUNOLOGY Treponemal Non Reactive Non 08/23 [facility] Scr [facility] (08/23/17 12:36 AM) CHEM PANEL A/G Ratio 0.6 0.7 - 1.6 08/02 [facility] CHEM PANEL B/C Ratio 25 6 - 25 08/02 [facility] CHEM PANEL Globulin 4.7 g/dL 2.7 - 4.2 08/02 [facility] CHEM PANEL AGAP 12.1 meq/L 10.0 - 08/02 [facility] 20.0 [facility] CHEM PANEL eGFR 149 08/02 Result Comment: The eGFR is calculated using the CKD-EPI formula. In most young, healthy individuals the eGFR will be >90 mL/ min/1.73m2. The eGFR declines with age. An eGFR of 60-89 may be normal in [facility] mL/min/1. some populations, particularly the [...] Total 0.2 mg/dL 0.2 - 1.3 08/[address] CHEM PANEL CO2 25 meq/L 24 - 32 08/[address] CHEM PANEL Calcium Lvl 8.3 mg/dL 8.5 - 10.5 08/[address] CHEM PANEL Potassium Lvl 4.1 meq/L 3.5 - 5.1 08/[address] CHEM PANEL Sodium Lvl 136 meq/L 135 - 145 08/[address] CHEM PANEL Chloride Lvl 103 meq/L 95 - 109 08/[address] CHEM PANEL Alk Phos 103 unit/L 39 - 136 08/[address] CHEM PANEL ALT 32 unit/L 0 - 65 08/[address] CHEM PANEL AST 12 unit/L 0 - 37 08/[address] CHEM PANEL Albumin Lvl 2.6 g/dL 3.5 - 5.0 08/[address] CHEM PANEL Total Protein 7.3 g/dL 6.4 - 8.4 08/[address] CHEM PANEL Creatinine 0.36 mg/dL 0.50 - 08/02 [facility] Lvl 1.40 [facility] CHEM PANEL BUN 9 mg/dL 7 - 22 08/[address] CHEM PANEL Glucose Lvl 70 mg/dL 70 - 99 08/[address] HEMATOLOGY Eosinophils # 0.1 K/CMM 0.0 - 0.5 08/[address] HEMATOLOGY Segs 78.6 % 45.0 - 08/02 [facility] [address] [place] [address] HEMATOLOGY Lymphocytes # 2.1 K/CMM 1.0 - 5.5 08/[address] HEMATOLOGY Segs-Bands # 11.3 K/CMM 1.5 - 8.1 08/02 [facility] HEMATOLOGY Basophils 0.3 % 0.0 - 1.0 08/02 [facility] HEMATOLOGY Monocytes # 0.8 K/CMM 0.0 - 0.8 08/02 [facility] HEMATOLOGY Eosinophils 0.9 % 0.0 - 4.0 08/02 [facility] HEMATOLOGY Monocytes 5.4 % 2.0 - 12.0 08/02 [facility] HEMATOLOGY Lymphocytes 14.8 % 20.0 - 08/02 40.0 [facility] HEMATOLOGY Hct 34.0 % 36.0 - 08/02 [place] 48.0 [facility] HEMATOLOGY WBC 14.4 K/CMM 3.7 - 10.4 08/02 [facility] HEMATOLOGY Hgb 11.5 g/dL 12.0 - 08/02 16.0 [facility] HEMATOLOGY RBC 4.07 M/CMM 4.20 - 08/02 [facility] 5.40 /2016 [facility] HEMATOLOGY MPV 9.4 fL 7.4 - 10.4 08/02 [facility] HEMATOLOGY MCH 28.2 pg 27.0 - 08/02 31.0 [facility] HEMATOLOGY Platelet 251 K/CMM 133 - 450 08/02 [facility] HEMATOLOGY MCHC 33.7 g/dL 32.0 - 08/02 36.0 [facility] HEMATOLOGY MCV 83.6 fL 80.0 - 08/02 [facility] 98.0 [facility] HEMATOLOGY RDW 14.4 % 11.5 - 08/02 [facility] 14.5 [facility] URINE AND UA <=1.0 0.1 - 1.0 08/02 [facility] Urobilinogen mg/dL /2016 [facility] URINE AND UA Sq Epi Many /LPF Few /LPF 08/02 [facility] URINE AND UA Leuk Est Moderate Negative 08/02 [facility] *ABN* Center (08/02/17 2:02 PM) URINE AND UA Blood Negative Negative 08/02 [facility] (08/02/17 2:02 PM) [facility] URINE AND UA Nitrite Negative Negative 08/02 [facility] (08/02/17 2:02 PM) [facility] URINE AND UA Bili Negative Negative 08/02 [facility] *NA* Center (08/02/17 2:02 PM) URINE AND UA RBC 1 /HPF 0 - 2 08/02 [facility] URINE AND UA WBC 7 /HPF 0 - 5 08/02 [facility] URINE AND UA Mucus Few /LPF None Seen 08/02 [facility] /LPF [facility] URINE AND UA Spec Grav 1.023 <=1.030 08/02 [facility] URINE AND UA Turbidity Slight Clear 08/02 [facility] Medical *ABN* Center (08/02/17 2:02 PM) URINE AND UA Color Yellow Yellow 08/02 [facility] *NA* Center (08/02/17 2:02 PM) URINE AND UA Glucose Negative Negative 08/02 [facility] mg/dL mg/dL [facility] URINE AND UA Ketones Negative Negative 08/02 [facility] mg/dL mg/dL [facility] URINE AND UA pH 6.5 5.0 - 8.0 08/02 [facility] URINE AND UA Protein 20 mg/dL Negative 08/02 [facility] mg/dL [facility] HEMATOLOGY Hct 32.2 % 36.0 - 12/04 [facility] 48.0 [facility] HEMATOLOGY Hgb 10.8 g/dL 12.0 - 12/04 [facility] 16.0 [facility] URINE AND UA <=1.0 0.1 - 1.0 12/03 [facility] Urobilinogen mg/dL [facility] URINE AND UA Color Yellow Yellow 12/03 [facility] *NA* Center (12/04/15 10:43 AM) URINE AND UA Turbidity Clear Clear 12/03 [facility] (12/04/15 10:43 AM) [place] URINE AND UA Bacteria Occasional None Seen 12/03 [facility] /HPF /HPF [facility] URINE AND UA Mucus Few /LPF None Seen 12/03 [facility] /LPF [facility] URINE AND UA Spec Grav 1.017 <=1.030 12/03 [facility] URINE AND UA Glucose Negative Negative 12/03 [facility] mg/dL mg/dL [facility] URINE AND UA Ketones Negative Negative 12/03 [facility] mg/dL mg/dL /2015 [facility] URINE AND UA Bili Negative Negative 12/03 [facility] *NA* Center (12/04/15 10:43 AM) URINE AND UA pH 6.5 5.0 - 8.0 12/03 [facility] URINE AND UA Protein 20 mg/dL Negative 12/03 [facility] mg/dL [facility] URINE AND UA Nitrite Negative Negative 12/03 [facility] (12/04/15 10:43 AM) [place] URINE AND UA Blood Large Negative 12/03 [facility] *ABN* [place] (12/04/15 10:43 AM) URINE AND UA Sq Epi Many /LPF Few /LPF 12/03 [facility] URINE AND UA WBC 4 /HPF 0 - 5 12/03 [facility] URINE AND UA RBC 1 /HPF 0 - 2 12/03 [facility] URINE AND UA Leuk Est Trace Negative 12/03 [facility] *ABN* [place] (12/04/15 10:43 AM) HEMATOLOGY PTT 27.5 s 22.9 - 12/03 [place] 35.8 /2015 [facility] HEMATOLOGY INR 0.97 0.85 - 12/03 [place] 1.17 [facility] HEMATOLOGY PT 13.2 s 12.0 - 12/03 [facility] 14.7 /2015 [facility] BLOOD BANK AB Int Anti-D 12/03 [place] [facility] BLOOD BANK Antibody Scrn Positive 1 12/03 Result Comment: 12/04/2015 11 :48 [email or web address] [facility] "Significant Findings called to Estephania Metzger at 1145 by Hanna. Read Back OK." [facility] (12/04/15 9:37 AM) [place] Positive Antibody Screen. Please allow additional time for crossmatches. BLOOD BANK ABO/Rh A NEG 12/03 [facility] RESULTS [facility] BLOOD BANK Path AB Blood Bank 12/03 [facility] RESULTS [address] yo female recieved Rhogam on 08/16/2016 [...] the resident Dr. Fany Fletcher's interpreta tion.CPT: 91445-[id number] HEMATOLOGY MPV 9.3 fL 7.4 - 10.4 12/03 [facility] HEMATOLOGY Platelet 232 K/CMM 133 - 450 12/03 [facility] HEMATOLOGY RDW 14.8 % 11.5 - 12/03 [facility] 14.5 [facility] HEMATOLOGY MCHC 32.3 g/dL 32.0 - 12/03 [facility] 36.0 [facility] HEMATOLOGY MCH 26.9 pg 27.0 - 12/03 [facility] 31.0 [facility] HEMATOLOGY MCV 83.4 fL 80.0 - 12/03 [facility] 98.0 [facility] HEMATOLOGY Hct 33.0 % 36.0 - 12/03 [facility] 48.0 [facility] HEMATOLOGY Hgb 10.7 g/dL 12.0 - 12/03 [facility] 16.0 [facility] HEMATOLOGY RBC 3.96 M/CMM 4.20 - 12/03 [place] 5.40 /2015 [facility] HEMATOLOGY WBC 18.6 K/CMM 3.7 - 10.4 12/03 [facility] HEMATOLOGY Basophils # 0.1 K/CMM 0.0 - 0.2 12/[address] [place] [address] HEMATOLOGY Eosinophils # 0.1 K/CMM 0.0 - 0.5 12/[address] HEMATOLOGY Monocytes # 1.2 K/CMM 0.0 - 0.8 12/[address] HEMATOLOGY Monocytes 6.3 % 2.0 - 12.0 12/[address] HEMATOLOGY Lymphocytes # 2.0 K/CMM 1.0 - 5.5 12/[address] HEMATOLOGY Segs-Bands # 15.3 K/CMM 1.5 - 8.1 12/03 [place] /2016 [facility] HEMATOLOGY Basophils 0.3 % 0.0 - 1.0 12/03 [facility] HEMATOLOGY Eosinophils 0.8 % 0.0 - 4.0 12/03 [facility] HEMATOLOGY Lymphocytes 10.7 % 20.0 - 12/03 [facility] 40.0 [facility] HEMATOLOGY Segs 81.9 % 45.0 - 12/03 [facility] 75.0 [facility]. [facility]12[facility]04/15 9:37 AM) IMMUNOLOGY Treponemal Non Reactive Non 12/03 [facility] (12/04/15 9:37 AM) IMMUNOLOGY Hep Bs Ag Negative Negative 12/03 [facility] [place] (12/04/15 9:37 AM) BLOOD BANK RBC product Product available 12/03 [facility] (12/04/15 9:06 AM) Center Vital Signs Vital Sign Value Date Comments Source Systolic (mm Hg) 112 08/23/2017 [facility] Diastolic (mm Hg) 66 08/23/2017 [facility] Heart Rate 78 08/23/2017 [facility] Respitory Rate 18 08/23/2017 [facility] Temperature Oral (F) 98 F 08/23/2017 [facility] Systolic (mm Hg) 118 08/23/2017 [facility] Diastolic (mm Hg) 73 08/23/2017 [facility] Heart Rate 83 08/23/2017 [facility] Temperature Oral (F) 98.3 F 08/23/2017 [facility] Respitory Rate 18 08/23/2017 [facility] Systolic (mm Hg) 110 08/23/2017 [facility] Diastolic (mm Hg) 61 08/23/2017 [facility] Temperature Oral (F) 98.3 F 08/23/2017 [facility] BMI Calculated 36.73 08/23/2017 [facility] Weight 88.182 08/23/2017 [facility] Height 154.94 cm 08/23/2017 [facility] Weight 88.182 08/23/2017 [facility] Height 154.94 cm 08/23/2017 [facility] BMI Calculated 36.73 08/23/2017 [facility] Respitory Rate 18 08/23/2017 [facility] Heart Rate 78 08/23/2017 [facility] Systolic (mm Hg) 135 08/02/2017 [facility] Diastolic (mm Hg) 65 08/02/2017 [facility] Systolic (mm Hg) 110 08/02/2017 [facility] Diastolic (mm Hg) 55 08/02/2017 [facility] Systolic (mm Hg) 107 08/02/2017 [facility] Diastolic (mm Hg) 61 08/02/2017 [facility] Respitory Rate 20 08/02/2017 [facility] Heart Rate 84 08/02/2017 [facility] Temperature Oral (F) 98.2 F 08/02/2017 [facility] Height 154.94 cm 08/02/2017 [facility] Weight 85 08/02/2017 [facility] BMI Calculated 35.41 08/02/2017 [facility] Temperature Oral (F) 98.5 F 08/02/2017 [facility] Respitory Rate 18 08/02/2017 [facility] Heart Rate 81 08/02/2017 [facility] Systolic (mm Hg) 123 12/08/2015 [facility] Diastolic (mm Hg) 67 12/08/2015 [facility] Temperature Oral (F) 98.4 F 12/08/2015 [facility] Respitory Rate 20 12/08/2015 [facility] Heart Rate 64 12/08/2015 [facility] Weight 77.273 12/08/2015 [facility] BMI Calculated 32.19 12/08/2015 [facility] Height 154.94 cm 12/08/2015 [facility] Systolic (mm Hg) 124 12/06/2015 [facility] Diastolic (mm Hg) 81 12/06/2015 [facility] Respitory Rate 18 12/06/2015 [facility] Temperature Oral (F) 97.4 F 12/06/2015 [facility] Heart Rate 76 12/06/2015 [facility] Systolic (mm Hg) 110 12/05/2015 [facility] Diastolic (mm Hg) 63 12/05/2015 [facility] Respitory Rate 18 12/05/2015 [facility] Temperature Oral (F) 97.9 F 12/05/2015 [facility] Heart Rate 67 12/05/2015 [facility] Respitory Rate 18 12/05/2015 [facility] Systolic (mm Hg) 125 12/05/2015 [facility] Diastolic (mm Hg) 67 12/05/2015 [facility] Heart Rate 80 12/05/2015 [facility] Temperature Oral (F) 98.6 F 12/05/2015 [facility] Weight 87.727 12/04/2015 [facility] BMI Calculated 36.54 12/04/2015 [facility] Height 154.94 cm 12/04/2015 [facility] Respitory Rate 18 12/01/2015 [facility] Systolic (mm Hg) 118 12/01/2015 [facility] Diastolic (mm Hg) 78 12/01/2015 [facility] BMI Calculated 36.92 12/01/2015 [facility] Weight 88.636 12/01/2015 [facility] Height 154.94 cm 12/01/2015 [facility] Heart Rate 72 09/20/2015 [facility] Systolic (mm Hg) 119 09/20/2015 [facility] Diastolic (mm Hg) 72 09/20/2015 [facility] BMI Calculated 32.57 09/20/2015 [facility] Weight 78.182 09/20/2015 [facility] Height 154.94 cm 09/20/2015 [facility] Encounters Location Location Encounter Encounter Reason Attending ADM DC Status Source Details Type Number For Provider Date Date Visit [facility] [id number] Tano 09/20 09/20 [facility] Observation [facility] /2015 [facility] OBS [id number] Tano 11/30 11/30 [facility] Observation [facility] /2015 [facility] Inpatient [id number] Soy 12/03 12/06 [facility] Prabhjot-Crystal /2015 [facility] OBS [id number] Traci 12/07 12/07 [facility] Observation Gustavo /2015 [facility] Emergency [id number] Tyree Harris 08/02 08/02 [facility] /2016 [facility] Observation [id number] Keiko 08/23 08/24 [facility] Tor /2016 [facility] Procedures Procedure Code Date Perfomer Comments Source Tonsillectomy [id number] 08/26/2002 [facility] Appendectomy [id number] 08/26/1999 [facility] Cystectomy [id number] 08/26/1992 [facility] D&C - Dilatation [id number] [facility]
--- OUTSIDE RECORDS SUMMARY | 2019-02-11 17:39 | XMS REPORT ---
:1990 [facility] Address [address] [place] [address] Care Team Providers Name Role Phone ERASMO [...] Reference Range Comments TEST URINE (BEAKER) (test wzfh=199) Negative [id number] 11:54:00 Test Item Value Reference Range Comments RPR SCREEN (BEAKER) (test mnnq=861) Nonreactive Nonreactive HEMOGLOBIN [id number] 10:47:00 Test Item Value Reference Range Comments HEMOGLOBIN A1C (BEAKER) (test huwz=035) 5.2 % 4.3-6.1 TSH/FREE T4 IF [id number] 06:03:00 Test Item Value Reference Range Comments THYROID STIMULATING HORMONE (BEAKER) (test 0.97 uIU/mL 0.35-4.94 npwt=357) VITAMIN B12 AND [id number] 06:03:00 Test Item Value Reference Range Comments VITAMIN B12 (BEAKER) (test kqus=372) 384 pg/mL 213-816 FOLATE (BEAKER) (test gkhs=330) 11.5 ng/mL >=7.0 Effective 07/13/2014: Folate Reference Range ChangeNew: >=7.0 Previous: & gt;=5.4HIV-1 ANTIGEN WITH HIV-1/2 [id number] 05:29:00 Test Item Value Reference Range Comments HIV-1 ANTIGEN WITH HIV 1\T\2 ANTIBODY (2) Nonreactive Nonreactive (BEAKER) (test ejqz=2445) [id number] 05:18:00 Test Item Value Reference Range Comments D-DIMER QUANTITATIVE (BEAKER) (test deng=604) < MG/L FEU <0.50 Intended Use: The D-Dimer Assay can be used to aid in the diagnosis of Deep Vein Thrombosis (DVT) and Pulmonary Embolism Disease (PED).In patients with low pre-test probability, various studies concerning STA Liatest D-dimer test have reported that with a cutoff value of 0.50 MG/L FEU, the Negative Predictive Value (NPV) regarding the exclusion of thrombosis is within 95-100% range.[id number] 05:18:00 Test Item Value Reference Range Comments MAGNESIUM (BEAKER) (test pxea=760) 2.1 mg/dL 1.6-2.6 LIPID [id number] 05:18:00 Test Item Value Reference Range Comments TRIGLYCERIDES (BEAKER) (test lfac=892) 128 mg/dL CHOLESTEROL (BEAKER) (test ckgg=993) 159 mg/dL HDL CHOLESTEROL (BEAKER) (test molz=001) 29 mg/dL LDL CHOLESTEROL CALCULATED (BEAKER) (test 104 mg/dL ueed=138) Triglyceride Reference Range: Low Risk <150 Borderline 150- 199 High Risk 200-499 Very High Risk >=500Cholesterol Reference Range: Low Risk <200 Borderline 200-239 High Risk > 240HDL Cholesterol Reference Range: Low Risk >=60 High Risk <40LDL Cholesterol Reference Range: Optimal <100 Near Optimal 100-129 Borderline 130-159 High 160-189 Very High >=190BASIC METABOLIC [id number] 05:18:00 Test Item Value Reference Range Comments SODIUM (BEAKER) (test 139 meq/L 136-145 grfq=254) POTASSIUM (BEAKER) (test 3.5 meq/L 3.5-5.1 kcme=859) CHLORIDE (BEAKER) (test 109 meq/L 98-107 yqyj=069) CO2 (BEAKER) (test 23 meq/L 22-29 mobz=785) BLOOD UREA NITROGEN 13 mg/dL 7-21 (BEAKER) (test wjis=922) CREATININE (BEAKER) (test 0.66 mg/dL 0.57-1.25 eepw=581) GLUCOSE RANDOM (BEAKER) 94 mg/dL 70-105 (test esoy=361) CALCIUM (BEAKER) (test 8.3 mg/dL 8.4-10.2 jgol=569) EGFR (BEAKER) (test 109 mL/min/1.73 sq m ESTIMATED GFR IS NOT rikw=1682) ACCURATE CREATININE CLEARANCE IN PREDICTING GLOMERULAR FILTRATION RATE. ESTIMATED GFR IS NOT APPLICABLE FOR DIALYSIS PATIENTS. CBC W/PLT COUNT & AUTO [id number] 05:09:00 Test Item Value Reference Range Comments WHITE BLOOD CELL COUNT (BEAKER) (test kppn=342) 9.8 K/ L 4.0-10.0 RED BLOOD CELL COUNT (BEAKER) (test oevc=432) 4.39 M/ L 4.00-5.00 HEMOGLOBIN (BEAKER) (test rutr=635) 13.0 GM/DL 12.0-15.0 HEMATOCRIT (BEAKER) (test kuil=850) 39.9 % 36.0-45.0 MEAN CORPUSCULAR VOLUME (BEAKER) (test mzvt=001) 91.0 fL 82.0-99.0 MEAN CORPUSCULAR HEMOGLOBIN (BEAKER) (test 29.7 pg 27.0-33.0 yyhd=833) MEAN CORPUSCULAR HEMOGLOBIN CONC (BEAKER) (test 32.6 GM/DL 32.0-36.0 cbeh=199) RED CELL DISTRIBUTION WIDTH (BEAKER) (test 13.0 % 10.3-14.2 yjba=826) PLATELET COUNT (BEAKER) (test pcza=090) 207 K/CU MM 150-430 MEAN PLATELET VOLUME (BEAKER) (test kfmy=329) 9.1 fL 6.5-10.5 NUCLEATED RED BLOOD CELLS (BEAKER) (test 0 /100 WBC 0-0 rpkn=429) NEUTROPHILS RELATIVE PERCENT (BEAKER) (test 60 % rjzl=195) LYMPHOCYTES RELATIVE PERCENT (BEAKER) (test 29 % aadk=774) MONOCYTES RELATIVE PERCENT (BEAKER) (test 8 % jshy=602) EOSINOPHILS RELATIVE PERCENT (BEAKER) (test 2 % nxxu=632) BASOPHILS RELATIVE PERCENT (BEAKER) (test 0 % rtxi=988) NEUTROPHILS ABSOLUTE COUNT (BEAKER) (test 5.88 K/ L 1.80-8.00 tjgs=902) LYMPHOCYTES ABSOLUTE COUNT (BEAKER) (test 2.89 K/ L 1.48-4.50 rpgh=529) MONOCYTES ABSOLUTE COUNT (BEAKER) (test 0.80 K/ L 0.00-1.30 gfmi=068) EOSINOPHILS ABSOLUTE COUNT (BEAKER) (test 0.20 K/ L 0.00-0.50 jxaw=167) BASOPHILS ABSOLUTE COUNT (BEAKER) (test 0.05 K/ L 0.00-0.20 oiph=822) 0.00
[2019-02-11] MEDS ORDERED: METOCLOPRAMIDE 10 MG/2mL INJ ONE (18:56)
[2019-02-11] MEDS ORDERED: DIPHENHYDRAMINE 50 MG/ML VIAL ONE (18:56)
[2019-02-11] MEDS ORDERED: NA CHLORIDE 0.9% 100 ML IV ONE (18:56)
[2019-02-11] MEDS ORDERED: NA CHLORIDE 0.9% 1,000 ML ONE (18:56)
--- NOTE | 2019-02-11 19:49 | ER ---
Nurse's Notes [facility] Name: Lauren Polanco Age: 29 yrs Sex: Female : 1990 Arrival Date: 02/11/2019 Time: 17:34 Bed 16 Private MD: Diagnosis: Headache Presentation: 02/11 17:44 Presenting complaint: Patient states: N/V headache since starting Tramadol and Bactrim aj yesterday for UTI. Care prior to arrival: None. 17:44 Acuity: YANICK 4 aj 18:19 Transition of care: patient was not received from another setting of care. Onset of ls4 symptoms was February 10, 2019 at 18:19. Risk Assessment: Do you want to hurt yourself or someone else? Patient reports no desire to harm self or others. Initial Sepsis Screen: Does the patient meet any 2 criteria? No. Patient's initial sepsis screen is negative. Does the patient have a suspected source of infection? No. Patient's initial sepsis screen is negative. 18:19 Method Of Arrival: Ambulatory ls4 Triage Assessment: 17:44 General: Appears in no apparent distress. uncomfortable, Behavior is calm, cooperative, aj appropriate for age. Pain: Complains of pain in face and scalp. Neuro: Reports headache. Respiratory: Airway is patent Respiratory effort is even, unlabored, Respiratory pattern is regular, symmetrical. GI: Reports nausea, vomiting. Derm: Skin is intact, is healthy with good turgor, Skin is pink, warm \T\ dry. normal. 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 - Social history:: Smoking status: unknown. - Ebola Screening: : Patient negative for fever greater than or equal to 101.5 degrees Fahrenheit, and additional compatible Ebola Virus Disease symptoms Patient denies exposure to infectious person Patient denies travel to an Ebola-affected area in the 21 days before illness onset No symptoms or risks identified at this time. Screenin:18 Abuse screen: Denies threats or abuse. Denies injuries from another. Nutritional ls4 screening: No deficits noted. Tuberculosis screening: No symptoms or risk factors identified. Fall Risk None identified. Assessment: 18:36 General: Appears in no apparent distress. comfortable, Behavior is calm, cooperative. ls4 GI: Abdomen is non-distended, Bowel sounds present X 4 quads. 19:00 General: Appears in no apparent distress. comfortable, Behavior is calm, cooperative, rr5 appropriate for age. Pain: Denies pain. Neuro: Level of Consciousness is awake, alert, obeys commands, Oriented to person, place, time, situation, Denies dizziness. Cardiovascular: Capillary refill < 3 seconds Patient's skin is warm and dry. Respiratory: Airway is patent Respiratory effort is even, unlabored, Respiratory pattern is regular, symmetrical. GI: No signs and/or symptoms were reported involving the gastrointestinal system. : No signs and/or symptoms were reported regarding the genitourinary system. : No signs and/or symptoms were reported regarding the genitourinary system. EENT: No signs and/or symptoms were reported regarding the EENT system. Derm: Skin is intact, Skin temperature is warm. Musculoskeletal: Capillary refill < 3 seconds, Range of motion: intact in all extremities. 20:00 Reassessment: Patient appears in no apparent distress at this time. Patient is alert, rr5 oriented x 3, equal unlabored respirations, skin warm/dry/pink. for discharge once IV fluid is done. Patient denies pain at this time. Patient states symptoms have improved. 20:30 Reassessment: Patient appears in no apparent distress at this time. Patient is alert, rr5 oriented x 3, equal unlabored respirations, skin warm/dry/pink. discharge instruction given and explained without complaints made. assisted by measurement and verification engineer via wheelchair. Patient denies pain at this time. Patient states feeling better. Patient states symptoms have improved. Vital Signs: 17:44 BP 116 / 62; Pulse 82; Resp 18; Temp 97.4; Pulse Ox 97% on R/A; Weight 77.11 kg; Height aj 5 ft. 1 in. (154.94 cm); 19:15 BP 97 / 51; Pulse 55; Resp 17; Temp 97.5; Pulse Ox 99% ; Pain 0/10; rr5 20:29 BP 104 / 62; Pulse 60; Resp 17; Temp 97.6; Pulse Ox 99% ; Pain 0/10; rr5 17:44 Body Mass Index 32.12 (77.11 kg, 154.94 cm) ED Course: 17:34 Patient arrived in ED. as 17:44 Triage completed. aj 17:44 Arm band placed on left wrist. Patient placed in waiting room, Patient notified of wait aj time. 18:00 [facility] Victoria [facility]. jr8 18:00 Suman Chavez MD is Attending Physician. jr8 18:17 Carolann Pavon, RN is Primary Nurse. ls4 18:18 Patient has correct armband on for positive identification. Bed in low position. Call ls4 light in reach. Side rails up X 1. Pulse ox on. NIBP on. 18:18 No provider procedures requiring assistance completed. ls4 18:20 Inserted saline lock: 20 gauge in left antecubital area, using aseptic technique. ls4 20:32 IV discontinued, intact, bleeding controlled, No redness/swelling at site. Pressure rr5 dressing applied. Administered Medications: 18:40 Drug: Reglan 10 mg Route: IVP; Site: left antecubital; ls4 20:00 Follow up: Response: No adverse reaction rr5 18:50 Drug: NS 0.9% 1000 ml Route: IV; Rate: 1000 ml; Site: left antecubital; ls4 20:15 Follow up: Response: No adverse reaction; IV Status: Completed infusion; IV Intake: rr5 1000ml 18:50 Drug: Benadryl 25 mg Route: IVP; Site: left antecubital; ls4 20:00 Follow up: Response: No adverse reaction rr5 Intake: 20:15 IV: 1000ml; Total: 1000ml. rr5 Outcome: 19:49 Discharge ordered by MD. 8 20:34 Discharged to home via wheelchair, with family. rr5 20:34 Condition: stable 20:34 Discharge instructions given to patient, family, Instructed on discharge instructions, follow up and referral plans. medication usage, Demonstrated understanding of instructions, follow-up care, medications, Prescriptions given X 1. 20:34 Patient left the ED. rr5 Signatures: Madhuri Dunne, RN RN Heather Wood Josh, PA PA jr8 Carolann Pavon, RN RN ls4 Ambrose Coto RN RN rr5 Corrections: (The following items were deleted from the chart) 19:15 18:18 Patient did not have IV access during this emergency room visit. ls4 ls4
--- NOTE | 2019-02-11 19:50 | EDPHYS ---
Physician Documentation [facility] Name: Lauren Polanco Age: 29 yrs Sex: Female : 1990 Arrival Date: 02/11/2019 Time: 17:34 Bed 16 Private MD: ED Physician Suman Chavez HPI: 02/11 18:32 This 29 yrs old Female presents to ER via Ambulatory with complaints of jr8 Vomiting, Headache. 18:32 Onset: The symptoms/episode began/occurred acutely, today. Possible causes: jr8 antibiotics, Bactrim, Tramadol. The symptoms are aggravated by nothing. The symptoms are alleviated by nothing. Associated signs and symptoms: The patient has no apparent associated signs or symptoms. Severity of symptoms: At their worst the symptoms were moderate in the emergency department the symptoms are unchanged. The patient has not experienced similar symptoms in the past. The patient has been recently seen by a physician:. Patient stated that she had abdominal pain, back pain, vomiting yesterday. Was evaluated and diagnosed with UTI. Stated that she was put on tramadol and Bactrim. Took medicine today and now having headache and vomiting . 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 - Social history:: Smoking status: unknown. - Ebola Screening: : Patient negative for fever greater than or equal to 101.5 degrees Fahrenheit, and additional compatible Ebola Virus Disease symptoms Patient denies exposure to infectious person Patient denies travel to an Ebola-affected area in the 21 days before illness onset No symptoms or risks identified at this time. ROS: 18:32 Eyes: Negative for injury, pain, redness, and discharge, ENT: Negative for injury, jr8 pain, and discharge, Neck: Negative for injury, pain, and swelling, Cardiovascular: Negative for chest pain, palpitations, and edema, Respiratory: Negative for shortness of breath, cough, wheezing, and pleuritic chest pain, Back: Negative for injury and pain, MS/Extremity: Negative for injury and deformity, Skin: Negative for injury, rash, and discoloration. 18:32 Abdomen/GI: Positive for nausea and vomiting, Negative for abdominal pain, diarrhea, constipation, abdominal cramps, abdominal distension, anorexia, dysphagia, hematemesis, black/tarry stool, rectal pain, rectal bleeding, bowel incontinence, flatulence. 18:32 Neuro: Positive for headache, Negative for altered mental status, dizziness, gait disturbance, hearing loss, loss of consciousness, numbness, seizure activity, speech changes, syncope, near syncope, tingling, tinnitus, tremor, visual changes, weakness. Exam: 18:32 Eyes: Pupils equal round and reactive to light, extra-ocular motions intact. Lids and jr8 lashes normal. Conjunctiva and sclera are non-icteric and not injected. Cornea within normal limits. Periorbital areas with no swelling, redness, or edema. ENT: Nares patent. No nasal discharge, no septal abnormalities noted. Tympanic membranes are normal and external auditory canals are clear. Oropharynx with no redness, swelling, or masses, exudates, or evidence of obstruction, uvula midline. Mucous membranes moist. Neck: Trachea midline, no thyromegaly or masses palpated, and no cervical lymphadenopathy. Supple, full range of motion without nuchal rigidity, or vertebral point tenderness. No Meningismus. Cardiovascular: Regular rate and rhythm with a normal S1 and S2. No gallops, murmurs, or rubs. Normal PMI, no JVD. No pulse deficits. Respiratory: Lungs have equal breath sounds bilaterally, clear to auscultation and percussion. No rales, rhonchi or wheezes noted. No increased work of breathing, no retractions or nasal flaring. Abdomen/GI: Soft, non-tender, with normal bowel sounds. No distension or tympany. No guarding or rebound. No evidence of tenderness throughout. Back: No spinal tenderness. No costovertebral tenderness. Full range of motion. Skin: Warm, dry with normal turgor. Normal color with no rashes, no lesions, and no evidence of cellulitis. MS/ Extremity: Pulses equal, no cyanosis. Neurovascular intact. Full, normal range of motion. Neuro: Awake and alert, GCS 15, oriented to person, place, time, and situation. Cranial nerves II-XII grossly intact. Motor strength 5/5 in all extremities. Sensory grossly intact. Cerebellar exam normal. Normal gait. Vital Signs: 17:44 BP 116 / 62; Pulse 82; Resp 18; Temp 97.4; Pulse Ox 97% on R/A; Weight 77.11 kg; Height aj 5 ft. 1 in. (154.94 cm); 19:15 BP 97 / 51; Pulse 55; Resp 17; Temp 97.5; Pulse Ox 99% ; Pain 0/10; rr5 20:29 BP 104 / 62; Pulse 60; Resp 17; Temp 97.6; Pulse Ox 99% ; Pain 0/10; rr5 17:44 Body Mass Index 32.12 (77.11 kg, 154.94 cm) aj MDM: 18:00 Patient medically screened. jr8 19:48 Data reviewed: vital signs, nurses notes, and as a result, I will discharge patient. jr8 Data interpreted: Pulse oximetry: on room air is 99 %. Interpretation: normal. Counseling: I had a detailed discussion with the patient and/or guardian regarding: the historical points, exam findings, and any diagnostic results supporting the discharge/admit diagnosis, the need for outpatient follow up, a family practitioner, to return to the emergency department if symptoms worsen or persist or if there are any questions or concerns that arise at home. Response to treatment: the patient's symptoms have markedly improved after treatment, patient is well hydrated. 19:49 ED course: Instructed patient to stop Tramadol . jr8 02/11 18:24 Order name: IV; Complete Time: 18:58 [facility] Administered Medications: 18:40 Drug: Reglan 10 mg Route: IVP; Site: left antecubital; ls4 20:00 Follow up: Response: No adverse reaction rr5 18:50 Drug: NS 0.9% 1000 ml Route: IV; Rate: 1000 ml; Site: left antecubital; ls4 20:15 Follow up: Response: No adverse reaction; IV Status: Completed infusion; IV Intake: rr5 1000ml 18:50 Drug: Benadryl 25 mg Route: IVP; Site: left antecubital; ls4 20:00 Follow up: Response: No adverse reaction rr5 Disposition: 19:48 Chart complete. Chart complete. 02/12 07:21 Co-signature as Attending Physician, Suman Chavez MD I agree with the assessment and kdr plan of care. Disposition: 02/11/19 19:49 Discharged to Home. Impression: Headache. - Condition is Stable. - Discharge Instructions: Migraine Headache. - Prescriptions for promethazine 25 mg Oral Tablet - take 1 tablet by ORAL route every 6 hours As needed; 20 tablet. - Medication Reconciliation Form, Thank You Letter, Antibiotic Education, Prescription Opioid Use form. - Follow up: Private Physician; When: 5 - 6 days; Reason: Recheck today's complaints, Continuance of care, Re-evaluation by your physician. - Problem is new. - Symptoms have improved. Signatures: Madhuri Dunne RN RN Suman Fowler MD MD kdr Roszak, Josh, PA PA jr8 Carolann Pavon RN RN ls4 Ambrose Coto RN RN rr5 Corrections: (The following items were deleted from the chart) 02/11 20:34 19:49 02/11/2019 19:49 Discharged to Home. Impression: Headache. Condition is Stable. rr5 Forms are Medication Reconciliation Form, Thank You Letter, Antibiotic Education, Prescription Opioid Use. Follow up: Private Physician; When: 5 - 6 days; Reason: Recheck today's complaints, Continuance of care, Re-evaluation by your physician. Problem is new. Symptoms have improved. jr8
[2019-02-11 22:15] VITALS: O2SAT 99
[2019-02-11 22:18] VITALS: BP 104/62; TEMP 97.6
== END 2019-02-11 20:34 | disposition home or self-care (01) ==
LOC: ER 17:32
DX: R51 Headache (principal); R11.10 Vomiting, unspecified; Z88.1 Allergy status to other antibiotic agents
CPT/HCPCS: 96361; 96374; 96375; 99284; J2765; J7030

== ENCOUNTER 2020-01-24 12:44 | Emergency (ER) | payer OTHER, SELFPAY ==
--- OUTSIDE RECORDS SUMMARY | 2020-01-24 12:47 | XMS REPORT | Clinical Summary ---
:1990 Author Organization [facility] Address [address] [place] [address] Care Team Providers Name Role Phone Unavailable [...] Snuff Tobacco Cessation: Ready to Quit: Yes; C ounseling Given: Yes Alcohol Use Drinks/Week oz/Week Comments No Sex Assigned at Date Recorded Not on file Job Start Date Occupation Industry Not on file Not on file Not on file Travel History Travel Start Travel End No recent travel history available. Last Filed Vital Signs Not on file Plan of Treatment Not on file Results Not on fileafter 01/23/2019 Insurance Payer Benefit Plan / Subscriber ID Type Phone Address Group MEDICAID - MEDICAID MEDICAID COMM xxxxxxxxx Medicaid Contracted D CARE HEALTH CHOICE Advance Directives For more information, please contact:[facility] [email or web address] [id number] [facility] [place] [phone] Code Status Date Activated Date Inactivated Comments Full Code 01/09/2017 11:25 PM 01/11/2017 1:21 PM This code status was determined by: Patient
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
--- OUTSIDE RECORDS SUMMARY | 2020-01-24 12:52 | XMS REPORT | Continuity of Care Document ---
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 DIFFERENTIA ID="[id number] Health L [id number] me">RDW-CV</t d><td>13.2</t d><td>12.0 - 15.5 %</td><td>[facility]</t d><td ID="[id number] gnature"/> CBC WITH <td 255 166 - 12/14 [facility]FFER[facility] ID="[id number] 162976 Health L [id number] alex">PLT</td> <td>25 5</td><td>166 - 358 10*3/L</td>< td>[facility]</t d><td ID="[id number] ignature"/> CBC WITH <td 11.2 9.5 - 12.9 12/14 [facility]FFER[facility] ID="Umbsgm121 /2020 Health L [id number] alex">MPV</td> <td>11 .2</td><td>9. 5 - 12.9 fL</td><td>[facility]</t d><td ID="[id number] ignature"/> CBC WITH NRBC/100 WBC 0.0 0.0 - 12/14 [facility] DIFFERENTIA 10.0100 Health L CBC WITH NRBC x10^3 <0.01 10*3/L 12/14 [facility] Health L CBC WITH <td 76.5 12/14 [facility] ID="[id number] /2020 Health L [id number] alex">GRAN MAT (NEUT) %</td><td> 76.5</td><td> %</td><td>[facility]</t d><td ID="[id number] ignature"/> CBC WITH IMM GRAN % 0.90 12/14 [facility] Health L CBC WITH <td 14.3 12/14 [facility] ID="[id number] Health L [id number] alex">LYMPH %</td><td>14. 3</td><td>%</ td><td>[facility]</t d><td ID="[id number] ignature& quot;/> CBC WITH <td 6.3 12/14 [facility] DIFFERENTIA ID="[id number] Health L [id number] alex">MONO %</td><td>6.3 </td><td>%</t d><td>[facility]</t d><td ID="[id number] ignature&quot ;/> CBC WITH <td 1.7 12/14 [facility] DIFFERENTIA ID="[id number] Health L [id number] alex">EOS %</td><td>1.7 </td><td>%</t d><td>[facility]</t d><td ID="[id number] ignature&quot ;/> CBC WITH <td 0.3 12/14 [facility] DIFFERENTIA ID="[id number] /2020 Health L [id number] alex">BASO %</td><td>0.3 </td><td>%</t d><td>[facility]</t d><td ID="[id number] ignature&quot ;/> CBC WITH GRAN MAT 12.18 1.88 - 12/14 [facility] DIFFERENTIA x10^3(ANC) 7.09 Health L CBC WITH IMM GRAN 0.14 0 - 0.06 12/14 [facility] DIFFERENTIA x10^3 Health L CBC WITH <td 2.28 1.32 - 12/14 [facility] DIFFERENTIA ID="Vqhcnb429 3.29 Health L [id number] alex">LYMPH x10^3</td>&am p;lt;td>2.28< /td><td>1.32 - 3.29 10*3/uL</td>< td>[facility]</t d><td ID="[id number] ignature"/> CBC WITH <td 1.01 0.33 - 12/14 [facility] DIFFERENTIA ID="Nxohvv298 0.92 Health L [id number] alex">MONO x10^3</td>&lt ;td><span style="flagDa ta">1.01</spa n><span style="flagDa ta"> (H)</span></t d><td>0.33 - 0.92 10*3/uL</td>< td>[facility]&am p;lt;/td><td ID="[id number] ignature"/> CBC WITH <td 0.27 0.03 - 12/14 [facility] ID="Ivxfru143 0.39 Health L [id number] alex">EOS x10^3</td>&lt ;td>0.27</td> <td>0.03 - 0.39 10*3/uL</td>< td>[facility]</t d><td ID="[id number] ignature"/> CBC WITH <td 0.04 0.01 - 12/14 [facility] ID="Pgpviv519 0.07 Health L [id number] alex">BASO x10^3</td>&lt ;td>0.04</td> <td>0.01 - 0.07 10*3/uL</td>< td>[facility]</t d><td ID="[id number] ignature"/> CBC WITH Lab Abnormal 12/14 [facility] Interpretatio /2019 Health L n COMP. NA 135 135 - 145 12/14 [facility] METABOLIC /2020 Health PANEL (31576) COMP. K 3.8 3.5 - 5 12/14 [facility] METABOLIC /2020 Health PANEL (94003) COMP. CL 105 98 - 108 12/14 [facility] MET[facility]OLIC /2020 Health PANEL (30657) COMP. CO2 TOTAL 23 - 12/14 [facility] MET[facility]OLIC /2020 Health PANEL (20213) COMP. AGAP 7 2 - 16 12/14 [facility] METABOLIC /2020 Health PANEL (88064) COMP. BUN 10 7 - 12/14 [facility] METABOLIC /2020 Health PANEL (53831) COMP. GLUCOSE 86 70 - 110 12/14 [facility] METABOLIC /2020 Health PANEL (89874) COMP. CREATININE 0.39 0.5 - 1.04 12/14 [facility] METABOLIC /2020 Health PANEL (11328) COMP. TOTAL BILI 0.1 0.1 - 1.1 12/14 [facility] METABOLIC /2020 Health PANEL (21239) COMP. CALCIUM 9.0 8.6 - 10.6 12/14 [facility] METABOLIC /2019 Health PANEL (07613) COMP. T PROTEIN 7.4 6.3 - 8.2 12/14 [facility] METABOLIC /2020 Health PANEL (62645) COMP. ALBUMIN 4.0 3.5 - 5 12/14 [facility] METABOLIC /2020 Health PANEL (89296) COMP. ALK PHOS 71 34 - 122 12/14 [facility] 2020 Health PANEL (18971) COMP. <td 20 5 - 35 12/14 [facility] ID="[id number] Health PANEL [id number] (09563) alex">ALTv</td ><td>2 0</td><td>5 - 35 U/L</td><td>[facility]</t d><td ID="[id number] ignature"/> COMP. AST(SGOT) 22 13 - 40 12/14 [facility] 2020 Health PANEL (67088) COMP. eGFR 195.7 mL/min/1.7 12/14 [facility] Calculation 3m Health PANEL (Non- (11727) Malian) COMP. eGFR 237.2 mL/min/1.7 12/14 [facility] Calculation 3m Health PANEL ( (31962) Malian) COMP. <p>Associatio Associatio 12/14 [facility] n of n of Health PANEL Glomerular Glomerular (35426) Filtration Filtration Rate (GFR) Rate (GFR) and Staging and of Kidney Staging of Disease*</ Kidney p><p> Disease* </p><p>+----- +--------- -----+------- ----+----- -+ ------+--- -+</p><p>| GFR --+| GFR (mL/min/1.73 (mL/min/1. m2) | With 73 m2) | Kidney Damage With | Without Kidney Kidney Damage | Damage</p><p> Without + Kidney +- Damage+--- -------+----- +--------- -------+</p>< p>| >90 --+------- | Stage one | Normal --------+| >90 </p><p>+----- | Stage one | -----+------- Normal -+ +--------- -+</p><p>| ----+----- 60 | Stage two ------+--- | Decreased GFR --+| 60 </p><p>+----- | Stage two -----+------- | Decreased -+ GFR +--------- -+</p><p>| 3059 ----+----- | Stage three | Stage ------+--- three </p><p>+----- --+| 3059 -----+------- | Stage -+ three | Stage -+</p><p>| three 15-29 +--------- | Stage four | Stage ----+----- four </p><p>+----- ------+--- -----+------- --+| 15-29 -+ | Stage four -+</p><p>| | <15 (or Stage four dialysis) | Stage five +--------- | Stage five ----+----- </p><p>+----- ------+--- -----+------- -+ --+| +--------- -+</p><p> </p><p>*Each ----+----- stage assumes the ------+--- associated GFR level has been in --+ *Each effect for at stage least three assumes months. the Stages 1 to associated 5, with or GFR level without has been kidney in effect disease, for at indicate least chronic three kidney months. disease.</p>< Stages 1 p> to 5, with </p><p or without >Notes: kidney Determination disease, of stages one indicate and two (with chronic eGFR kidney >59mL/min/1.7 disease. 3 m2) Notes: requires Determinat estimation of ion of kidney damage stages one for at least and two three months (with eGFR as defined by >59mL/min/ structural or 1.73 m2) functional requires abnormalities estimation of the of kidney kidney, damage for manifested by at least either:</p><p three >Pathological months as abnormalities defined by or Markers of structural kidney damage or (including functional abnormalities abnormalit in the ies of the composition kidney, of the blood manifested or urine or by abnormalities either:Pat in imaging hological tests). abnormalit </p><p> ies or </p> Markers of kidney damage (including abnormalit ies in the compositio n of the blood or urine or abnormalit ies in imaging tests). COMP. Lab Abnormal 12/14 [facility]OL[facility] Interpretatio /2020 Health PANEL n (75607) LIPASE, LIPASE 47 0 - 220 12/14 [facility] SERUM /2019 Health LIPASE, Lab Normal 12/14 [facility] SERUM Interpretatio Health n URINALYSIS APPEARANCE Hazy Clear 11/26 [facility] Health URINALYSIS COLOR Yellow Yellow 11/26 [facility] Health URINALYSIS PH 5.0 4.8 - 8.0 11/26 [facility] Health URINALYSIS SP GRAVITY 1.013 1.003 - 11/26 [facility] 1.030 Health URINALYSIS GLU U QUAL Normal Normal 11/26 [facility] Health URINALYSIS BLOOD Negative Negative 11/26 [facility] Health URINALYSIS KETONES Negative Negative 11/26 [facility] Health URINALYSIS <td Negative Negative 11/26 [facility] ID="[id number] [facility] [id number] me">PROTEIN</ td><td>Negati ve</td><td>Ne gative</td><t d>[facility]</t d><td ID="[id number] gnature"/> URINALYSIS UROBILIN Normal Normal 11/26 [facility] Health URINALYSIS BILIRUBIN Negative Negative 11/26 [facility] Health URINALYSIS NITRITE Negative Negative 11/26 [facility] Health URINALYSIS LEUK SELENA Negative Negative 11/26 [facility] Health URINALYSIS RBC/HPF 1 0 - 3 11/26 [facility] Health URINALYSIS WBC/HPF 2 0 - 5 11/26 [facility] Health URINALYSIS BACTERIA Negative Negative 11/26 [facility] Health URINALYSIS MUCOUS Slight Negative 11/26 [facility] LPF Health URINALYSIS SQ EPITH 4 HPF 11/26 [facility] Health URINALYSIS Lab Abnormal 11/26 [facility] Interpretatio Health n ALPHA AFP-MS 26.0 11/16 [facility] FETOPROTEIN Health -MATERNAL SER ALPHA AFP-MS NTD SCREENING RESULTS: 11/16 [facility] FETOPROTEIN Interpretatio Health -MATERNAL n Gestation Age: Weeks 15 days 1 based on __ LMP __ PE _ X_ US. SER Maternal Serum AFP value in ng/mL is 26.0. The corrected AFP MOM is 1.21. NORMAL RANGE is less than 2.5 MOM in NTD screening. The NTD screen result is: _X_ Negative __ Positive with a risk of 1 in POCT POCT U SP . 1.005 - 10/22 [facility] URINALYSIS GRAV 1. Health W SPECIFIC GRAVITY POCT POCT PH U . 5 - 8 10/22 [facility] URINALYSIS Health W SPECIFIC GRAVITY POCT POCT U LEUK . Negative 10/22 [facility] URINALYSIS EST Health W SPECIFIC GRAVITY POCT POCT U NIT . Negative 10/22 [facility] URINALYSIS Health W SPECIFIC GRAVITY POCT POCT U PROT trace Negative 10/22 [facility] URINALYSIS Health W SPECIFIC GRAVITY POCT POCT U GLU negative Negative 10/22 [facility] URINALYSIS Health W SPECIFIC GRAVITY POCT POCT U KETONE . Negative 10/22 [facility] URINALYSIS Health W SPECIFIC GRAVITY POCT POCT U . 0.2 - 1 10/22 [facility] URINALYSIS UROBILI Health W SPECIFIC GRAVITY POCT POCT U BILI . Negative 10/22 [facility] URINALYSIS Health W SPECIFIC GRAVITY POCT POCT U BLD . Negative 10/22 [facility] URINALYSIS Health W SPECIFIC GRAVITY POCT POCT U COLOR POCT U COLOR 10/22 [facility] URINALYSIS Health W SPECIFIC GRAVITY POCT POCT U APPEAR POCT U APPEAR 10/22 [facility] URINALYSIS Health W SPECIFIC GRAVITY POCT POCT U SP . 1.005 - 10/01 [facility] URINALYSIS GRAV Health W SPECIFIC GRAVITY POCT POCT PH U 5 5 - 8 10/01 [facility] URINALYSIS Health W SPECIFIC GRAVITY POCT POCT U LEUK TRACE Negative 10/01 [facility] URINALYSIS EST Health W SPECIFIC GRAVITY POCT POCT U NIT NEGATIVE Negative 10/01 [facility] URINALYSIS Health W SPECIFIC GRAVITY POCT POCT U PROT TRACE Negative 10/01 [facility] URINALYSIS Health W SPECIFIC GRAVITY POCT POCT U GLU NEGATIVE Negative 10/01 [facility] URINALYSIS Health W SPECIFIC GRAVITY POCT POCT U KETONE NEGATIVE Negative 10/01 [facility] URINALYSIS Health W SPECIFIC GRAVITY POCT POCT U . 0.2 - 1 10/01 [facility] URINALYSIS UROBILI Health W SPECIFIC GRAVITY POCT POCT U BILI . Negative 10/01 [facility] URINALYSIS Health W SPECIFIC GRAVITY POCT POCT U BLD NEGATIVE Negative 10/01 [facility] URINALYSIS Health W SPECIFIC GRAVITY POCT POCT U COLOR POCT U COLOR 10/01 [facility] URINALYSIS Health W SPECIFIC GRAVITY POCT POCT U APPEAR POCT U APPEAR 10/01 [facility] URINALYSIS Health W SPECIFIC GRAVITY TOTAL BETA BETA HCG 17332.00 Non - 5 09/16 [facility] HCG ASSAY Health TOTAL BETA <p> Gestation 09/16 [facility] HCG ASSAY </p><p>Gestat al Age [facility] ional Age Range Range (mIU/mL) (mIU/mL)</p&a 1-10 Weeks mp;gt;<p> </p><p>1-10 [id number] Weeks 1-15 Weeks [id number]</p& amp;gt;<p>11- [address] 15 Weeks 8016-22 Weeks 70812-417543< /p><p>16-22 7480-43886 Weeks 423-40 [id number]</ Weeks p><p>23-40 Weeks 1531-55981 [phone]</ 6 Biotin p><p> has been </p><p>Biotin reported has been to cause a reported to negative cause a bias, negative interpret bias, results interpret relative results to relative to patient's patient's use use of of biotin. biotin.</p> Type and ABO & RH A Negative 09/16 Performed at [facility] Screen - [facility]
[address] [place] [address]
Toll Free: [phone]< br/>CLIA No. [id number]

Type and IAT Negative 09/16 Performed at [facility] Screen - [facility]
[address] [place], [place] [id number]
Toll Free: [phone]< br/>CLIA No. [id number]

Basic NA 136 135 - 145 09/16 [facility] Metabolic /2020 Health Panel (NA, K, CL, CO2, GLUCOSE, BUN, CREATININE, CA) Basic K 3.7 3.5 - 5 09/16 [facility] Metabolic 2020 Health Panel (NA, K, CL, CO2, GLUCOSE, BUN, CREATININE, CA) Basic CL 105 98 - 108 09/16 [facility] Metabolic 2020 Health Panel (NA, K, CL, CO2, GLUCOSE, BUN, CREATININE, CA) Basic CO2 TOTAL 23 23 - 31 09/16 [facility] Metabolic 2020 Health Panel (NA, K, CL, CO2, GLUCOSE, BUN, CREATININE, CA) Basic AGAP 8 2 - 16 09/16 [facility] Metabolic Health Panel (NA, K, CL, CO2, GLUCOSE, BUN, CREATININE, CA) Basic BUN 12 7 - 23 09/16 [facility] Health Panel (NA, K, CL, CO2, GLUCOSE, BUN, CREATININE, CA) Basic GLUCOSE 108 70 - 110 09/16 [facility] Health Panel (NA, K, CL, CO2, GLUCOSE, BUN, CREATININE, CA) Basic CREATININE 0.45 0.5 - 1.04 09/16 [facility] Health Panel (NA, K, CL, CO2, GLUCOSE, BUN, CREATININE, CA) Basic CALCIUM 9.3 8.6 - 10.6 09/16 [facility] Health Panel (NA, K, CL, CO2, GLUCOSE, BUN, CREATININE, CA) Basic eGFR 165.9 mL/min/1.7 09/16 [facility] Metabolic Calculation 3m Health Panel (NA, (Non- K, CL, CO2, Malian) GLUCOSE, BUN, CREATININE, CA) Basic eGFR 201.1 mL/min/1.7 09/16 [facility] Metabolic Calculation 3m Health Panel (NA, ( K, CL, CO2, Malian) GLUCOSE, BUN, CREATININE, CA) Basic <p>Associatio Associatio 09/16 [facility] Metabolic n of n of Health Panel (NA, Glomerular Glomerular K, CL, CO2, Filtration Filtration GLUCOSE, Rate (GFR) Rate (GFR) BUN, and Staging and CREATININE, of Kidney Staging of CA) Disease*</ Kidney p><p> Disease* </p><p>+----- +--------- -----+------- ----+----- -+ ------+--- -+</p><p>| GFR --+| GFR (mL/min/1.73 (mL/min/1. m2) | With 73 m2) | Kidney Damage With | Without Kidney Kidney Damage | Damage</p><p> Without + Kidney +- Damage+--- -------+----- +--------- -------+</p>< p>| >90 --+------- | Stage one | Normal --------+| >90 </p><p>+----- | Stage one | -----+------- Normal -+ +--------- -+</p><p>| ----+----- 60-89 | Stage two ------+--- | Decreased GFR --+| 60-89 </p><p>+----- | Stage two -----+------- | Decreased -+ GFR +--------- -+</p><p>| 3059 ----+----- | Stage three | Stage ------+--- three </p><p>+----- --+| 3059 -----+------- | Stage -+ three | Stage -+</p><p>| three 15-29 +--------- | Stage four | Stage ----+----- four </p><p>+----- ------+--- -----+------- --+| 15-29 -+ | Stage four -+</p><p>| | <15 (or Stage four dialysis) | Stage five +--------- | Stage five ----+----- </p><p>+----- ------+--- -----+------- -+ --+| +--------- -+</p><p> </p><p>*Each ----+----- stage assumes the ------+--- associated GFR level has been in --+ *Each effect for at stage least three assumes months. the Stages 1 to associated 5, with or GFR level without has been kidney in effect disease, for at indicate least chronic three kidney months. disease.</p>< Stages 1 p> to 5, with </p><p or without >Notes: kidney Determination disease, of stages one indicate and two (with chronic eGFR kidney >59mL/min/1.7 disease. 3 m2) Notes: requires Determinat estimation of ion of kidney damage stages one for at least and two three months (with eGFR as defined by >59mL/min/ structural or 1.73 m2) functional requires abnormalities estimation of the of kidney kidney, damage for manifested by at least either:</p><p three >Pathological months as abnormalities defined by or Markers of structural kidney damage or (including functional abnormalities abnormalit in the ies of the composition kidney, of the blood manifested or urine or by abnormalities either:Pat in imaging hological tests). abnormalit </p><p> ies or </p> Markers of kidney damage (including abnormalit ies in the compositio n of the blood or urine or abnormalit ies in imaging tests). Basic Lab Abnormal 09/16 [facility] Metabolic Interpretatio Health Panel (NA, n K, CL, CO2, GLUCOSE, BUN, CREATININE, CA) Hepatic TOTAL BILI 0.2 0.1 - 1.1 09/16 [facility] Function Health Panel (ALB, T.PRO, BILI T, BU/BC, ALT, AST, ALK PHOS) Hepatic BILI UNCON 0.2 0.1 - 1.1 09/16 [facility] Function Health Panel (ALB, T.PRO, BILI T, BU/BC, ALT, AST, ALK PHOS) Hepatic BILI CONJ 0.0 0 - 0.3 09/16 [facility] Function Health Panel (ALB, T.PRO, BILI T, BU/BC, ALT, AST, ALK PHOS) Hepatic T PROTEIN 7.1 6.3 - 8.2 09/16 [facility] Function Health Panel (ALB, T.PRO, BILI T, BU/BC, ALT, AST, ALK PHOS) Hepatic ALBUMIN 4.0 3.5 - 5 09/16 [facility] Function Health Panel (ALB, T.PRO, BILI T, BU/BC, ALT, AST, ALK PHOS) Hepatic ALK PHOS 45 34 - 122 09/16 [facility] Function Health Panel (ALB, T.PRO, BILI T, BU/BC, ALT, AST, ALK PHOS) Hepatic <td 36 5 - 35 09/16 [facility] Function ID="[id number] Health Panel (ALB, [id number] T.PRO, BILI me">ALTv</td> T, BU/BC, <td><s ALT, AST, bunch ALK PHOS) style="flagDa ta">36</span> <span style="flagDa ta"> (H)</span></t d><td>5 - 35 U/L</td><td>[facility]</t d><td ID="[id number] gnature"/> Hepatic AST(SGOT) 27 13 - 40 09/16 [facility] Function Health Panel (ALB, T.PRO, BILI T, BU/BC, ALT, AST, ALK PHOS) Hepatic Lab Abnormal 09/16 [facility] Function Interpretatio Health Panel (ALB, n T.PRO, BILI T, BU/BC, ALT, AST, ALK PHOS) aPTT <td 30 23 - 38 09/16 [facility] ID="[id number] Health [id number] me">APTT Patient</td>& amp;lt;td>30< /td><td>23 - 38 Seconds</td>< td>[facility]</t d><td ID="[id number] gnature"/> aPTT <p>[facility] 09/16 [facility] patient patient /2019 Health population population mean normal mean value for normal aPTT is 30 value for seconds.</p&g aPTT is 30 t; seconds. aPTT Lab Normal 09/16 [facility] Interpretatio Health n Prothrombin <td 13.0 12.0 - 09/16 [facility] Time (PT) / ID="Qnrzdp240 14.7 [facility] INR 128629Qxdf3Bv me">PROTIME PATIENT</td>& amp;lt;td>13. 0</td><td>12. 0 - 14.7 Seconds</td>& lt;td>[facility]</t d><td ID="[id number] gnature"/> Prothrombin <td 1.0 09/16 Normal INR [facility] Time (PT) / ID="[id number] /2020 <1.1; Health INR [id number] Warfarin me">INR</td>< Therapeutic td><sp range 2.0 to an>1.0</span> 3.0 or 2.5 to <span 3.5, style="allInd depending ent">< upon the span indications. style="cellHe ader">Comment : </span><span ID="Omqqfm372 [id number] mment">Normal INR <1.1; Warfarin Therapeutic range 2.0 to 3.0 or 2.5 to 3.5, depending upon the indications.< /span></span> </td><td> </td><td>[facility]</t d><td ID="[id number] gnature"/> Prothrombin Lab Normal 09/16 [facility] Time (PT) / Interpretatio /2019 Health INR n CBC WITH <td 10.33 4.30 - 09/16 [facility] DIFFERENTIA ID="Npqmwu530 11.23198 Healt h L [id number] me">WBC</td>< td>10. 33</td><td>4. 30 - 11.10 10*3/L</td>& lt;td>[facility]</t d><td ID="[id number] gnature"/> CBC WITH <td 4.37 3.93 - 09/16 [facility]FFER[facility]IA ID="Ryohwb028 5.69200 Health L 861856Qqyu0De me">RBC</td>< td>4.3 7</td><td>3.9 3 - 5.25 10*6/L</td>< td>[facility]</t d><td ID="[id number] gnature"/> CBC WITH <td 13.1 11.6 - 15 09/16 [facility] ID="[id number] Health L [id number] me">HGB</td>< td>13. 1</td><td>11. 6 - 15.0 g/dL</td><td> [facility]</t d><td ID="Rjmlnr092 [id number] gnature"/> CBC WITH <td 38.1 35.7 - 09/16 [facility]FFER[facility]IA ID="Zudjxi443 45.2 Health L [id number] me">HCT</td>< td>38. 1</td><td>35. 7 - 45.2 %</td><td>[facility]</t d><td ID="Vckaui142 [id number] gnature"/> CBC WITH <td 87.2 80.6 - 09/16 [facility] DIFFERENTIA ID="Tqomgb689 95.5 Health L [id number] me">MCV</td>< td>87. 2</td><td>80. 6 - 95.5 fL</td><td>AN [facility]</t d><td ID="[id number] gnature"/> CBC WITH <td 30.0 25.9 - 09/16 [facility] ID="[id number] 32.8 Health L [id number] me">MCH</td>< td>30. 0</td><td>25. 9 - 32.8 pg</td><td>AN [facility]</t d><td ID="[id number] gnature"/> CBC WITH <td 34.4 31.6 - 09/16 [facility] ID="Isazsm573 35.1 Health L [id number] me">[facility]</td> <td>34 .4</td><td>31 .6 - 35.1 g/dL</td><td> [facility]</t d><td ID="[id number] gnature"/> CBC WITH <td 41.5 39 - 49.9 09/16 [facility] ID="[id number] Health L [id number] me">RDW-SD</t d><td>41.5</t d><td>39.0 - 49.9 fL</td><td>AN [facility]</t d><td ID="[id number] gnature"/> CBC WITH <td 13.0 12 - 15.5 09/16 [facility] ID="[id number] Health L [id number] me">RDW-CV</t d><td>13.0</t d><td>12.0 - 15.5 %</td><td>[facility]</t d><td ID="Abglsy157 [id number] gnature"/> CBC WITH <td 235 166 - 09/16 [facility] ID="[id number] Health L [id number] alex">PLT</td> <td>23 5</td><td>166 - 358 10*3/L</td>< td>[facility]</t d><td ID="Mihscz531 [id number] ignature"/> CBC WITH <td 11.2 9.5 - 12.9 09/16 [facility] ID="[id number] Health L [id number] alex">MPV</td> <td>11 .2</td><td>9. 5 - 12.9 fL</td><td>[facility]</t d><td ID="[id number] 297009Narp86I ignature"/> CBC WITH NRBC/100 WBC 0.0 0.0 - 09/16 [facility] 10.0100 Health L CBC WITH NRBC x10^3 <0.01 10*3/L 09/16 [facility] Health L CBC WITH <td 64.6 09/16 [facility] ID="[id number] Health L [id number] alex">GRAN MAT (NEUT) %</td><td> 64.6</td><td> %</td><td>[facility]</t d><td ID="[id number] ignature"/> CBC WITH IMM GRAN % 0.60 09/16 [facility] Health L CBC WITH <td 24.6 09/16 [facility] ID="[id number] Health L [id number] alex">LYMPH %</td><td>24. 6</td><td>%</ td><td>[facility]</t d><td ID="Lregvg503 [id number] ignature& quot;/> CBC WITH <td 7.9 09/16 [facility] ID="[id number] Health L [id number] alex">MONO %</td><td>7.9 </td><td>%</t d><td>[facility]</t d><td ID="Ekmonb012 [id number] ignature&quot ;/> CBC WITH <td 1.8 09/16 [facility] DIFFERENTIA ID="Ofckfo480 Health L [id number] alex">EOS %</td><td>1.8 </td><td>%</t d><td>[facility]</t d><td ID="Heqoir763 [id number] ignature&quot ;/> CBC WITH <td 0.5 09/16 [facility]FFER[facility] ID="Bclfnk095 Health L [id number] alex">BASO %</td><td>0.5 </td><td>%</t d><td>[facility]</t d><td ID="Xxprgd985 [id number] ignature&quot ;/> CBC WITH GRAN MAT 6.67 1.88 - 09/16 [facility] DIFFERENTIA x10^3(ANC) 7.09 Health L CBC WITH IMM GRAN 0.06 0 - 0.06 09/16 [facility] x10^3 Health L CBC WITH <td 2.54 1.32 - 09/16 [facility] ID="Uwvcka589 3.29 Health L [id number] alex">LYMPH x10^3</td>&am p;lt;td>2.54< /td><td>1.32 - 3.29 10*3/uL</td>< td>[facility]</t d><td ID="Wdsovm598 [id number] ignature"/> CBC WITH <td 0.82 0.33 - 09/16 [facility]FFER[facility] ID="Wtyqvi639 0.92 Health L 109997Acxk30H alex">MONO x10^3</td>&lt ;td>0.82</td> <td>0.33 - 0.92 10*3/uL</td>< td>[facility]</t d><td ID="Licokr795 [id number] ignature"/> CBC WITH <td 0.19 0.03 - 09/16 [facility] DIFFERENTIA ID="Thklck478 0.39 Health L [id number] alex">EOS x10^3</td>&lt ;td>0.19</td> <td>0.03 - 0.39 10*3/uL</td>< td>[facility]</t d><td ID="Trbmko898 [id number] ignature"/> CBC WITH <td 0.05 0.01 - 09/16 [facility] DIFFERENTIA ID="Enxlpq957 0.07 Health L [id number] alex">BASO x10^3</td>&lt ;td>0.05</td> <td>0.01 - 0.07 10*3/uL</td>< td>[facility]</t d><td ID="Hevdzm328 [id number] ignature"/> URINALYSIS APPEARANCE Hazy Clear 09/16 Health URINALYSIS COLOR Yellow Yellow 09/16 [facility] Health URINALYSIS PH 6.0 4.8 - 8.0 09/16 Health URINALYSIS SP GRAVITY 1.017 1.003 - 09/16 [facility] 1.030 Health URINALYSIS GLU U QUAL Normal Normal 09/16 Health URINALYSIS BLOOD 2+ Negative 09/16 Health URINALYSIS KETONES Negative Negative 09/16 Health URINALYSIS <td Negative Negative 09/16 [facility] ID="[id number] Health [id number] me">PROTEIN</ td><td>Negati ve</td><td>Ne gative</td><t d>[facility]</t d><td ID="Vipgcj776 [id number] gnature"/> URINALYSIS UROBILIN Normal Normal 09/16 [facility] Health URINALYSIS BILIRUBIN Negative Negative 09/16 Health URINALYSIS NITRITE Negative Negative 09/16 Health URINALYSIS LEUK SELENA 500/uL Negative 09/16 Health URINALYSIS RBC/HPF 4 0 - 3 09/16 Health URINALYSIS WBC/HPF 8 0 - 5 09/16 Health URINALYSIS BACTERIA Moderate Negative 09/16 Health URINALYSIS MUCOUS Slight Negative 09/16 [facility] Health URINALYSIS SQ EPITH 30 HPF 09/16 [facility] Health URINALYSIS Lab Abnormal 09/16 [facility] Interpretatio Health n POCT POCT PREG positive 09/16 [facility] Health TEST POCT On board present 09/16 [facility] controls Health TEST acceptable with C Line POCT POCT PREG LOT [id number] 09/16 [facility] # Health TEST POCT POCT PREG 08-25-202009/16 [facility] TEST Health TEST DATE POCT Lab Normal 09/16 [facility] Interpretati Health TEST n GC & <td Positive Negative 09/04 [facility] CHLAMYDIA ID="[id number] /2020 Health AMPLIFIED [id number] ASSAY me">C. trachomatis Nucleic Acid</td><td> <span style="flagDa ta">Positive< /span><span style="flagDa ta"> (A)</span></t d><td>Negativ e</td><td>[facility]& lt;/td><td ID="Wrqmyu552 [id number] gnature"/> GC & <td Negative Negative 09/04 [facility] CHLAMYDIA ID="Wxfkjy446 /2020 Health AMPLIFIED [id number] ASSAY me">N. gonorrhoeae Nucleic Acid</td><td> Negative</td> <td>Negative< /td><td>[facility]</td> <td ID="Padsvr892 [id number] gnature"/> GC & Lab Abnormal 09/04 [facility] CHLAMYDIA Interpretatio /2019 Health AMPLIFIED n ASSAY RUBELLA Rubella Positive Negative 09/04 [facility] SCREEN screen IgG Health (JESSICA) IGG RUBELLA <p>Positive - Positive - 09/04 [facility] SCREEN Indicates the Health (JESSICA) IGG patient was the exposed to patient Rubella was through exposed to infection or Rubella vaccination.< through /p><p>Negativ infection e - Indicates or the patient vaccinatio could be n.Negative susceptible - to Rubella Indicates infection.</p the ><p>Equivocal patient - A second could be specimen susceptibl should be e to sent.</p>< Rubella p> </p><p> infection. </p> Equivocal - A second specimen should be sent. VZV <td Positive Negative 09/04 [facility] ANTIBODY ID="Glsyqo909 Health SCREEN [id number] me">VZV IgG antibody</td> <td>Positive< /td><td>Negat j carlos</td><td&a mp;gt;[facility]</td> <td ID="Cwsbbu997 [id number] gnature"/> VZV <p>Positive - Positive - 09/04 [facility] ANTIBODY Indicates the Health SCREEN patient was the exposed to patient VZV through was infection or exposed to vaccination.< VZV /p><p>Negativ through e - Indicates infection the patient or could be vaccinatio susceptible n.Negative to VZV - infection.</p Indicates ><p>Equivocal the - A second patient specimen could be should be susceptibl sent for e to VZV testing.& infection. lt;/p> Equivocal - A second specimen should be sent for testing. [facility] ONLY - <td Non-reacti Non 09/04 [facility] SYPHILIS ID="[id number] ve Health IGG/IGM [id number] me">Syphilis IgG/IgM</td>< td>Non-reacti ve</td><td>No n-reactive</t d><td> [facility]</td> <td ID="Xuczaf357 [id number] gnature"/> [facility] ONLY - <p> Non-react 09/04 [facility] SYPHILIS </p><p>Non-re j carlos - No Health IGG/IGM active - No serologic serologic evidence evidence of of T. T. pallidum pallidum infection. infection. Cannot Cannot exclude exclude incubating or incubating early or early syphilis. syphilis. Submit a Submit a second second specimen in specimen 2-4 weeks if in 2-4 syphilis is weeks if clinically syphilis suspected.</p is ><p> clinically </p><p>Equ suspected. ivocal - Equivocal Further - Further testing to testing to follow.</p><p follow. > Reactive - </p><p>[place] Further ctive - testing to Further follow. testing to follow. </p> [facility] ONLY - Lab Normal 09/04 [facility]ILIS Interpretatio [facility] IGG/IGM n ABO & RH A NEGATIVE 09/04 Performed at [facility] WORKUP, [facility] BLOOD BANK Laboratory Services - [facility] Blood [facility]
[address] [place] [id number]
Jaspreet l Free: [phone]< br/>CLIA No. [id number]

IAT Negative 09/04 Performed at [facility] WORKUP, [facility] BLOOD BANK Laboratory Services - [facility] Blood [facility]
[address] [place] [id number]
Jaspreet l Free: [phone]< br/>CLIA No. [id number]

HIV 1/2 <td Negative Negative 09/04 [facility] AG-AB WITH ID="Xeynfr092 /2020 Health REFLEX [id number] me">HIV 1/2 Ag-Ab with Reflex</td><t d>Negative</t d><td>Negativ e</td>&lt ;td>[facility]</td> <td ID="Lzmaju702 [id number] gnature"/> HIV 1/2 <td 0.06 09/04 [facility] AG-AB WITH ID="Favrfn462 /2020 Health REFLEX [id number] me">HIV Semi-quantita tive</td& gt;<td>0.06</ td><td/><td>[facility]</td> <td ID="Opbgrf439 [id number] gnature"/> HIV 1/2 <p>Non-reacti Non-reacti 09/04 [facility] AG-AB WITH ve for HIV-1 ve for /2019 Health REFLEX antigen and HIV-1 HIV-1/HIV-2 antigen antibodies. and No laboratory HIV-1/HIV- evidence of 2 HIV antibodies infection. . No Repeat in 2-4 laboratory weeks if evidence acute HIV of HIV infection is infection. suspected.</p Repeat in > 2-4 weeks if acute HIV infection is suspected. HEPATITIS B <td Negative Negative 09/04 [facility] SURFACE ID="Zzmijh477 /2020 Health ANTIGEN [id number] me">HBsAg</td ><td>N egative</td>< td>Negative</ td><td>[facility]</td> <td ID="Ihadsj709 [id number] gnature" /> HEPATITIS B <td 0.04 09/04 [facility] SURFACE ID="Xilurm841 /2020 Health ANTIGEN [id number] me">HBsAg Semi-Quantita tive</td& gt;<td>0.04</ td><td/><td>[facility]</td> <td ID="Eoptck951 [id number] gnature"/> CBC WITH <td 11.33 4.30 - 09/04 [facility] DIFFERENTIA ID="Trjttt131 [id number] Healt h L [id number] me">WBC</td>< td><sp an style="flagDa ta">11.33</sp an><span style="flagDa ta"> (H)</span></t d><td>4.30 - 11.10 10*3/L</td>< td>[facility]</td> <td ID="Rapnpy544 [id number] gnature"/> CBC WITH <td 4.70 3.93 - 09/04 [facility] DIFFERENTIA ID="Avllac150 502655 Health L 171965Btlr3Cy me">RBC</td>< td>4.7 0</td><td>3.9 3 - 5.25 10*6/L</td>< td>[facility]</td> <td ID="Gylwpq686 [id number] gnature"/> CBC WITH <td 14.0 11.6 - 15 09/04 [facility] DIFFERENTIA ID="Iewiat927 Health L [id number] me">HGB</td>< td>14. 0</td><td>11. 6 - 15.0 g/dL</td><td> [facility]</td> <td ID="Eykynb225 [id number] gnature" /> CBC WITH <td 40.9 35.7 - 09/04 [facility] DIFFERENTIA ID="Qoeuzc701 45.2 Health L 567556Ensy3Zx me">HCT</td>< td>40. 9</td><td>35. 7 - 45.2 %</td><td>[facility]</td> <td ID="Fpittu498 [id number] gnature"/> CBC WITH <td 87.0 80.6 - 09/04 [facility] DIFFERENTIA ID="Shcvgb786 95.5 Health L [id number] me">MCV</td>< td>87. 0</td><td>80. 6 - 95.5 fL</td><td>[facility]</td> <td ID="Xqnjhu056 [id number] gnature" /> CBC WITH <td 29.8 25.9 - 09/04 [facility] DIFFERENTIA ID="Jmjatt463 32.8 Health L 777342Xrfy4Kc me">MCH</td>< td>29. 8</td><td>25. 9 - 32.8 pg</td><td>[facility]</td> <td ID="Touxac898 [id number] gnature" /> CBC WITH <td 34.2 31.6 - 09/04 [facility] DIFFERENTIA ID="Cllvdt144 35.1 Health L 191099Lssc8Cl me">MCHC</td> <td>34 .2</td><td>31 .6 - 35.1 g/dL</td><td> [facility]</td> <td ID="Payefj580 [id number] gnature" /> CBC WITH <td 42.2 39 - 49.9 09/04 [facility] DIFFERENTIA ID="Sfnemt016 Health L [id number] me">RDW-SD</t d><td>42.2</t d><td>39.0 - 49.9 fL</td><td>[facility]</td> <td ID="Bysogz316 [id number] gnature" /> CBC WITH <td 13.2 12 - 15.5 09/04 [facility] DIFFERENTIA ID="Epswdu529 Health L 111150Soxz6Ys me">RDW-CV</t d><td>13.2</t d><td>12.0 - 15.5 %</td><td>[facility]</td> <td ID="Nolpmh865 [id number] gnature" /> CBC WITH <td 244 166 - 09/04 [facility] DIFFERENTIA ID="Jblknk062 242266 Health L 230344Pmzz44P alex">PLT</td> <td>24 4</td><td>166 - 358 10*3/L</td>< td>[facility]</td> <td ID="Unltoo482 690038Rqas07X ignature"/> CBC WITH <td 12.1 9.5 - 12.9 09/04 [facility] DIFFERENTIA ID="Dpmoma019 Health L 951120Nhvb50R alex">MPV</td> <td>12 .1</td><td>9. 5 - 12.9 fL</td><td>[facility]</td> <td ID="Prxfzj405 [id number] ignature&quot ;/> CBC WITH NRBC/100 WBC 0.0 0.0 - 09/04 [facility] DIFFERENTIA 10.010 Health L CBC WITH NRBC x10^3 <0.01 10*3/L 09/04 [facility] Health L CBC WITH <td 67.8 09/04 [facility] DIFFERENTIA ID="Fltdud308 /2020 Health L [id number] alex">GRAN MAT (NEUT) %</td><td> 67.8</td><td> %</td><td>[facility]</td> <td ID="Sckdku077 [id number] ignature&quot ;/> CBC WITH IMM GRAN % 0.30 09/04 [facility] DIFFERENTIA Health L CBC WITH <td 23.2 09/04 [facility] DIFFERENTIA ID="Hxhgsh281 /2020 Health L [id number] alex">LYMPH %</td><td>23. 2</td><td>%</ td><td>[facility]</td> <td ID="Luoqdi367 401000Zgfz90E ignature"/&gt ; CBC WITH <td 6.5 09/04 [facility] DIFFERENTIA ID="Myywpc624 /2020 Health L [id number] alex">MONO %</td><td>6.5 </td><td>%</t d><td>[facility]</td> <td ID="Pyqfib037 [id number] ignature"/&gt ; CBC WITH <td 1.8 09/04 [facility] DIFFERENTIA ID="Xdleyk459 /2020 Health L 057788Whzr23S alex">EOS %</td><td>1.8 </td><td>%</t d><td>[facility]</td> <td ID="Wvvebl791 [id number] ignature"/> CBC WITH <td 0.4 09/04 [facility] DIFFERENTIA ID="Gmhnkc363 /2020 Health L 143849Pgut20K alex">BASO %</td><td>0.4 </td><td>%</t d><td>[facility]</td> <td ID="Wonnpo083 318003Glwu88D ignature"/&gt ; CBC WITH GRAN MAT 7.68 1.88 - 09/04 [facility] DIFFERENTIA x10^3(ANC) 7.09 Health L CBC WITH IMM GRAN 0.03 0 - 0.06 09/04 [facility] DIFFERENTIA x10^3 Health L CBC WITH <td 2.63 1.32 - 09/04 [facility]FFERENT[facility] ID="Ckvjhv847 3.29 Health L [id number] alex">LYMPH x10^3</td>&am p;lt;td>2.63< /td><td>1.32 - 3.29 10*3/uL</td>< td>[facility]</td> <td ID="Rhwjxk747 [id number] ignature"/> CBC WITH <td 0.74 0.33 - 09/04 [facility] DIFFERENT[facility] ID="Xztlhc539 0.92 Health L [id number] alex">MONO x10^3</td>&lt ;td>0.74</td> <td>0.33 - 0.92 10*3/uL</td>< td>[facility]</td> <td ID="Wylmfk970 303993Ewbs14P ignature"/> CBC WITH <td 0.20 0.03 - 09/04 [facility]FFER[facility] ID="Mceedo167 0.39 Health L 051172Jgfq34G alex">EOS x10^3</td>&lt ;td>0.20</td> <td>0.03 - 0.39 10*3/uL</td>< td>[facility]</td> <td ID="Xcciaj437 [id number] ignature"/> CBC WITH <td 0.05 0.01 - 09/04 [facility] DIFFERENTIA ID="Sbxmbo667 0.07 Health L [id number] alex">BASO x10^3</td>&lt ;td>0.05</td> <td>0.01 - 0.07 10*3/uL</td>< td>[facility]</td> <td ID="Qavvxc083 [id number] ignature"/> CBC WITH Lab Abnormal 09/04 [facility] DIFFERENTIA Interpretatio Health L n POCT POCT PH U 5 5 - 8 09/03 [facility] URINALYSIS Health W/O SPECIFIC GRAVITY POCT POCT U LEUK Trace Negative 09/03 [facility] URINALYSIS EST Health W/O SPECIFIC GRAVITY POCT POCT U NIT Neg Negative 09/03 [facility] URINALYSIS Health W/O SPECIFIC GRAVITY POCT POCT U PROT Trace Negative 09/03 [facility] URINALYSIS Health W/O SPECIFIC GRAVITY POCT POCT U GLU Neg Negative 09/03 [facility] URINALYSIS Health W/O SPECIFIC GRAVITY POCT POCT U KETONE None Negative 09/03 [facility] URINALYSIS Health W/O SPECIFIC GRAVITY POCT POCT U BLD Neg Negative 09/03 [facility] URINALYSIS Health W/O SPECIFIC GRAVITY POCT POCT PREG Positive 09/03 [facility] Health TEST POCT On board Yes 09/03 [facility] controls Health TEST acceptable with C Line POCT POCT PREG LOT POCT PREG LOT # 09/03 [facility] # Health TEST POCT POCT PREG POCT PREG TEST DATE 09/03 [facility] TEST Health TEST DATE HEMATOLOGY PTT 26.5 22.9 - 08/23 [facility] 35.8 [facility] HEMATOLOGY INR 0.97 0.85 - 08/23 [facility] 1.17 [facility] HEMATOLOGY PT 12.9 12.0 - 08/23 [facility] 14.7 [facility] HEMATOLOGY vWF Assay 101 45 - 140 08/23 [facility] HEMATOLOGY vWF Antigen 213 45 - 165 08/23 [facility] DRUG SCREEN U Propoxyph Negative Negative 08/23 [place] [facility] *NA* /2016 [facility] (08/23/17 2:03 AM) Cente r DRUG SCREEN U Methadone Negative Negative 08/23 [place] [facility] *NA* /2016 [facility] (08/23/17 2:03 AM) Cente r DRUG SCREEN UDS Note See Note 08/23 [facility] (08/23/17 2:03 AM) /2016 [facility] DRUG SCREEN U Phencyc Scr Negative Negative 08/23 [place] *NA* Medical (08/23/17 2:03 AM) Cente r DRUG SCREEN U Opiate Scr Negative Negative 08/23 [place] *NA* Medical (08/23/17 2:03 AM) Cente r DRUG SCREEN U Benzodia Negative Negative 08/23 [place] *NA* [facility] (08/23/17 2:03 AM) Cente r DRUG SCREEN U Cannab Scr Negative Negative 08/23 [place] *NA* Medical (08/23/17 2:03 AM) Cente r DRUG SCREEN U Cocaine Scr Negative Negative 08/23 [place] *NA* Medical (08/23/17 2:03 AM) Cente r DRUG SCREEN U C[place] Scr Negative Negative 08/23 [place] *NA* [facility] (08/23/17 2:03 AM) Cente r DRUG SCREEN U Amph Scr Negative Negative 08/23 [place] [facility]NA[facility] (08/23[facility]17 2:03 AM[facility] RBC product Product available 08/23 [facility] RESULTS (08/23/17 1:54 AM) /2016 [facility] BLOOD BANK Path AB Transfusio 08/23 [facility] RESULTS n [facility] Services The patient is a 27 y/o at 35w2d with a medical history of bipolar disorder, asthma, and obesity of presents of contractio ns. Immunohema tologic testing demonstrat es the presence of an [...] history given at 30 weeks on 07/17/2017 ). Should RBC transfusio n be required, Rh-negativ e crossmatch -compatibl e units will be issued. No difficulty in obtaining compatible blood is expected. The patients electronic medical record has been reviewed for relevant informatio n. I have reviewed the test results and concur with the resident's , Dr. Camp, interpreta tion. CPT: 00342-TL BLOOD BANK Antibody Scrn Positive 1 08/23 [place] RESULTS (08/23/17 12:36 AM) Comment: Med ical 08/23/2017 Center 04:06 [id number]
"Significant Findings called to Marcy STEELE at 0404 by DOMENICO. Read Back OK."
<br/ >08/23/2017 04:04 [id number]
Patient has unexpected antibodies. Allow extra time for additional crossmatches. BLOOD BANK ABO/Rh A NEG 08/23 [facility] RESULTS [facility] BLOOD BANK AB Int Rhig 08/23 [facility] RESULTS Anti-D [facility] HEMATOLOGY Segs-Bands # 9.8 1.5 - 8.1 08/23 [facility] HEMATOLOGY Lymphocytes # 2.5 1.0 - 5.5 08/23 [facility] HEMATOLOGY Monocytes # 0.9 0.0 - 0.8 08/23 [facility] HEMATOLOGY Eosinophils # 0.2 0.0 - 0.5 08/23 [facility] HEMATOLOGY Basophils # 0.1 0.0 - 0.2 08/23 [facility] HEMATOLOGY Lymphocytes 18.6 20.0 - 08/23 [place] 40.0 [facility] HEMATOLOGY Monocytes 6.7 2.0 - 12.0 08/23 [facility] HEMATOLOGY Eosinophils 1.1 0.0 - 4.0 08/23 a [facility] HEMATOLOGY Basophils 0.4 0.0 - 1.0 08/23 [facility] HEMATOLOGY Segs 73.2 45.0 - 08/23 [place] 75.0 [facility] HEMATOLOGY Factor VIII 255 50 - 242 08/23 [facility] HEMATOLOGY MPV 9.9 7.4 - 10.4 08/23 [facility] HEMATOLOGY MCHC 33.5 32.0 - 08/23 [place] 36.0 [facility] HEMATOLOGY MCH 27.4 27.0 - 08/23 [place] 31.0 [facility] HEMATOLOGY Hct 33.5 36.0 - 12/29 [facility] 48.0 /2016 [facility] HEMATOLOGY MCV 82.0 80.0 - 08/23 [facility] 98.0 [facility] HEMATOLOGY Hgb 11.2 12.0 - 08/23 [facility] 16.0 [facility] HEMATOLOGY Platelet 215 133 - 450 08/23 [facility] HEMATOLOGY RDW 15.4 11.5 - 08/23 [facility] 14.5 [facility] HEMATOLOGY RBC 4.09 4.20 - 08/23 [facility] 5.40 /2016 [facility] HEMATOLOGY WBC 13.4 3.7 - 10.4 08/23 [facility] IMMUNOLOGY Hep Bs Ag Negative Negative 08/23 [facility] *NA* [facility] (08/23/17 12:36 AM) Cent er IMMUNOLOGY HIV. Negative Negative 08/23 [facility] *NA* [facility] (08/23/17 12:36 AM) Cent er IMMUNOLOGY Treponemal Non Reactive Non 08/23 [place] *NA* [facility] (08/23/17 12:36 AM) Cent er CHEM PANEL A/G Ratio 0.6 0.7 - 1.6 08/02 [facility] CHEM PANEL B/C Ratio 25 6 - 25 08/02 [facility] CHEM PANEL Globulin 4.7 2.7 - 4.2 08/02 [facility] CHEM PANEL AGAP 12.1 10.0 - 08/02 [facility] 20.0 [facility] CHEM PANEL eGFR 149 08/02 [facility] Comment: The Medical eGFR is Center calculated using the CKD-EPI formula. In most young, healthy individuals the eGFR will be >90 mL/min/1.73m2 . The eGFR declines with age. An eGFR of 60-89 may be normal in some populations, particularly the elderly, for whom the CKD-EPI formula has not been extensively validated. Use of the eGFR is not recommended in the following populations:< br/>
Natalya viduals with unstable creatinine concentration s, including patients and those with serious co-morbid conditions.<b r/>
Patie nts with extremes in muscle mass or diet.

The data above are obtained from the National Kidney Disease Education Program (NKDEP) which additionally recommends that when the eGFR is used in patients with extremes of body mass index for purposes of drug dosing, the eGFR should be multiplied by the estimated BMI. CHEM PANEL Bili Total 0.2 0.2 - 1.3 08/[address] CHEM PANEL CO2 25 24 - [address] CHEM PANEL Calcium Lvl 8.3 8.5 - 10.5 08/[address] CHEM PANEL Potassium Lvl 4.1 3.5 - 5.1 08/[address] CHEM PANEL Sodium Lvl 136 135 - 145 08/[address] CHEM PANEL Chloride Lvl 103 95 - 109 08/[address] CHEM PANEL Alk Phos 103 39 - 136 08/[address] CHEM PANEL ALT 32 0 - 65 08/[address] CHEM PANEL AST 12 0 - 37 08/[address] CHEM PANEL Albumin Lvl 2.6 3.5 - 5.0 08/[address] CHEM PANEL Total Protein 7.3 6.4 - 8.4 08/[address] CHEM PANEL Creatinine 0.36 0.50 - 08/02 [facility] Lvl 1.40 2016 [facility] CHEM PANEL BUN 9 7 - 22 08/[address] CHEM PANEL Glucose Lvl 70 70 - 99 08/[address] HEMATOLOGY Eosinophils # 0.1 0.0 - 0.5 08/[address] HEMATOLOGY Segs 78.6 45.0 - 08/02 [facility] 75.0 [facility] HEMATOLOGY Lymphocytes # 2.1 1.0 - 5.5 08/[address] HEMATOLOGY Segs-Bands # 11.3 1.5 - 8.1 08/02 [facility]2016 [facility] HEMATOLOGY Basophils 0.3 0.0 - 1.0 08/[address] HEMATOLOGY Monocytes # 0.8 0.0 - 0.8 08/[address] HEMATOLOGY Eosinophils 0.9 0.0 - 4.0 08/[address] HEMATOLOGY Monocytes 5.4 2.0 - 12.0 08/[address] HEMATOLOGY Lymphocytes 14.8 20.0 - 12 [place] 40.0 /2017 [facility] HEMATOLOGY Hct 34.0 36.0 - 12 [place] 48.0 /2017 [facility] HEMATOLOGY WBC 14.4 3.7 - 10.4 08/02 [facility] HEMATOLOGY Hgb 11.5 12.0 - 08/02 [place] 16.0 /2016 [facility] HEMATOLOGY RBC 4.07 4.20 - 12 [place] 5.40 /2016 [facility] HEMATOLOGY MPV 9.4 7.4 - 10.4 08/02 [facility] HEMATOLOGY MCH 28.2 27.0 - 12 [place] 31.0 /2016 [facility] HEMATOLOGY Platelet 251 133 - 450 08/02 [facility] HEMATOLOGY MCHC 33.7 32.0 - 12 [place] 36.0 /2016 [facility] HEMATOLOGY MCV 83.6 80.0 - 08/02 [place] 98.0 /2016 [facility] HEMATOLOGY RDW 14.4 11.5 - 08/02 [place] 14.5 /2016 [facility] URINE AND UA <=1.0 0.1 - 1.0 08/02 [facility] Urobilinogen mg/dL /2016 [facility] URINE AND UA Sq Epi Many /LPF Few /LPF 08/02 [facility] [address] [place] [address] URINE AND UA Leuk Est Moderate Negative 08/02 [facility] *ABN* /2016 [facility] (08/02/17 2:02 PM) [place] URINE AND UA Blood Negative Negative 08/02 [facility] (08/02/17 2:02 PM) [facility] URINE AND UA Nitrite Negative Negative 08/02 [facility] (08/02/17 2:02 PM) [facility] URINE AND UA Bili Negative Negative 08/02 [facility] STOOL *NA* /2016 [facility] (08/02/17 2:02 PM) Center URINE AND UA RBC 1 0 - 2 08/02 [facility] [address] [place] [address] URINE AND UA WBC 7 0 - 5 08/02 [facility] [address] [place] [address] URINE AND UA Mucus Few /LPF None Seen 08/02 [facility] STOOL /LPF /2016 [facility] URINE AND UA Spec Grav 1.023 <=1.030 08/02 [facility] /[address] [place] [address] URINE AND UA Turbidity Slight Clear 08/02 [facility] STOOL *ABN* /2016 [facility] (08/02/17 2:02 PM) [place] URINE AND UA Color Yellow Yellow 08/02 [facility] STOOL *NA* Medical (08/02/17 2:02 PM) Center URINE AND UA Glucose Negative Negative 08/02 [facility] STOOL mg/dL mg/dL [facility] URINE AND UA Ketones Negative Negative 08/02 [facility] mg/dL mg/dL [facility] URINE AND UA pH 6.5 5.0 - 8.0 08/02 [facility] STOOL [facility] URINE AND UA Protein 20 mg/dL Negative 08/02 [facility] STOOL mg/dL [facility] HEMATOLOGY Hct 32.2 36.0 - 12/04 [facility] 48.0 /2015 [facility] HEMATOLOGY Hgb 10.8 12.0 - 12/04 [facility] 16.0 [facility] URINE AND UA <=1.0 0.1 - 1.0 12/03 [facility] Urobilinogen mg/dL [facility] URINE AND UA Color Yellow Yellow 12/03 [facility] STOOL *NA* [facility] (12/04/15 10:43 AM) Cente r URINE AND UA Turbidity Clear Clear 12/03 [facility] (12/04/15 10:43 AM) [facility] URINE AND UA Bacteria Occasional None [place]en 12[place]03 [place] /HPF /HPF [facility] URINE AND UA Mucus Few /LPF None Seen 12/03 [facility] STOOL /LPF /2015 [facility] URINE AND UA Spec Grav 1.017 <=1.030 12/03 [facility] URINE AND UA Glucose Negative Negative 12/03 [facility] mg/dL mg/dL [facility] URINE AND UA Ketones Negative Negative 12/03 [facility] mg/dL mg/dL [facility] URINE AND UA Bili Negative Negative 12/03 [facility] STOOL *NA* Medical (12/04/15 10:43 AM) Cente r URINE AND UA pH 6.5 5.0 - 8.0 12/03 [facility] URINE AND UA Protein 20 mg/dL Negative 12/03 [facility] STOOL mg/dL [facility] URINE AND UA Nitrite Negative Negative 12/03 [facility] (12/04/15 10:43 AM) [facility] URINE AND UA Blood Large Negative 12/03 [facility] *ABN* /2015 Medical (12/04/15 10:43 AM) Cente r URINE AND UA Sq Epi Many /LPF Few /LPF 12/03 [facility] STOOL [facility] URINE AND UA WBC 4 0 - 5 12/03 [facility] STOOL /2015 [facility] URINE AND UA RBC 1 0 - 2 12/03 [facility] URINE AND UA Leuk Est Trace Negative 12/03 [facility] STOOL *ABN* Medical (12/04/15 10:43 AM) Cente r HEMATOLOGY PTT 27.5 22.9 - 12/03 [place] 35.8 /2015 [facility] HEMATOLOGY INR 0.97 0.85 - 12/03 [place] 1.17 /2015 [facility] HEMATOLOGY PT 13.2 12.0 - 12/03 [facility] 14.7 /2015 [facility] BLOOD BANK AB Int Anti-D 12/03 [facility] BLOOD BANK Antibody Scrn Positive 1 12/03 Result [facility] RESULTS (12/04/15 9:37 AM) Comment: Medic al 12/04/2015 Center 11:48 [email or web address]
"Significant Findings called to Estephania Metzger at 1145 by Hanna. Read Back OK."
<br/ >Positive Antibody Screen. Please allow additional time for crossmatches. BLOOD BANK ABO/Rh A NEG 12/03 [facility] RESULTS [facility] BLOOD BANK Path AB Blood Bank 12/03 [facility] RESULTS [facility] 25 yo female recieved Rhogam on 08/16/2016 . Immunohema tologic testing demonstrat es the presence of an anti-D in this patients serum. This antibody is directed against the D antigen of the "Rh" blood group system and is typically IgG in nature. Although usually considered clinically significan t, the presence of this antibody most likely represents passive immunizati on due to Rh Immune Globulin administra tion (by history given on08/16/20 16). Should RBC transfusio n be required, Rh-negativ e crossmatch -compatibl e units will be issued. No difficulty in obtaining compatible blood is expected. The patients electronic medical record has been reviewed for relevant informatio n. I have reviewed the test results and concur with the resident Dr. Fany Fletcher's interpreta tion. CPT: 31974-QS HEMATOLOGY MPV 9.3 7.4 - 10.4 12/03 [facility] HEMATOLOGY Platelet 232 133 - 450 12/03 [facility] HEMATOLOGY RDW 14.8 11.5 - 12/03 14.5 [facility] HEMATOLOGY MCHC 32.3 32.0 - 12/03 36.0 /2015 [facility] HEMATOLOGY MCH 26.9 27.0 - 12/03 31.0 [facility] HEMATOLOGY MCV 83.4 80.0 - 12/03 [place] 98.0 /2015 [facility] HEMATOLOGY Hct 33.0 36.0 - 12/03 48.0 [facility] HEMATOLOGY Hgb 10.7 12.0 - 12/03 16.0 [facility] HEMATOLOGY RBC 3.96 4.20 - 12/03 [place] 5.40 /2015 [facility] HEMATOLOGY WBC 18.6 3.7 - 10.4 12/03 [facility] HEMATOLOGY Basophils # 0.1 0.0 - 0.2 12/03 [facility] HEMATOLOGY Eosinophils # 0.1 0.0 - 0.5 12/03 [facility] HEMATOLOGY Monocytes # 1.2 0.0 - 0.8 12/03 [facility] HEMATOLOGY Monocytes 6.3 2.0 - 12.0 12/03 [facility] HEMATOLOGY Lymphocytes # 2.0 1.0 - 5.5 12/03 [facility] HEMATOLOGY Segs-Bands # 15.3 1.5 - 8.1 12/03 [facility] HEMATOLOGY Basophils 0.3 0.0 - 1.0 12/03 [facility] HEMATOLOGY Eosinophils 0.8 0.0 - 4.0 12/03 [facility] HEMATOLOGY Lymphocytes 10.7 20.0 - 12/03 40.0 [facility] HEMATOLOGY Segs 81.9 45.0 - 12/03 [place] 75.0 [facility] IMMUNOLOGY HIV. Negative Negative 12/03 [place] *NA* /2015 Medical (12/04/15 9:37 AM) Center IMMUNOLOGY Treponemal Non Reactive Non 12/03 [facility] xa Scr *NA* Reactive Medical (12/04/15 9:37 AM) Center IMMUNOLOGY Hep Bs Ag Negative Negative 12/03 [facility] *NA* /2016 Medical (12/04/15 9:37 AM) [place] BLOOD BANK RBC product Product available 12/03 [facility] RESULTS (12/04/15 9:06 AM[facility] Pathology Reports No Data Provided for This Section Diagnostic Reports Report Value Date Source US PELVIS > 14 1. No acute or adverse clark ges.2. Single, live intrauterine gestation with the size correlating well withdates. RL: 1105. Ordering Physicia 11/27/2019 [facility] WEEKS n: Suman Sun History: Dec reased movement. Comparison Study: None. Findings: Fetus: SingletonPresentation: VertexFetal heart rate: Documented with a regular rate of 143, 4-chambered heartis vis ualized BPD: 3.6 cm with an EGA of 17 weeks 1 dayHC: 13.2 cm with an EGA of 16 weeks 6 daysAC: 10.9 cm with an EGA of 16 weeks 6 daysFL: 2.2 cm with an EGA of 16 weeks 5 days Estimated weight: 16 7 +/- 25 grams which is with in the 28thpercentileComputed EGA: 17 weeks 0 days with an EDC of 05/06/2020 which correlateswell with the LMPPlacental location: Fundal, os clear, cervical length is 4 cmAmni otic fluid: REMINGTON is 9.1 cm Re al-time exam of the intracranial structures, spine, abdominalanatomy and limbs demonstrate no obvious anomalies. Maternal adnexalregions are unremarkable. Remaind er negative. [facility] R esults Inft User - 11/27/2019 10:32 AM CDTOrdering Physician: Suman Sun History: Decreased movement. Comparison Study: None. Findings: Fetus: Zhou Presentation: Vertex heart rate: Documented with a regular rate of 143, 4-chambered heart is visualized BPD: 3.6 cm with an EGA of 17 weeks 1 day HC: 13.2 cm with an EGA of 16 weeks 6 days AC: 10.9 cm with an EGA of 16 weeks 6 days FL: 2.2 cm with an EGA of 16 weeks 5 days Estimated weight: 167 +/- 25 grams which i s within the 28th percentile Computed EGA: 17 weeks 0 days with an EDC of 04/26 which correlates well with the LMP Placental location: Fundal, os clear, cervical l ength is 4 cm Amniotic fluid: REMINGTON is 9.1 cm Real-time exam of the intracranial structu res, spine, abdominal anatomy and limbs demonstrate no obvious a nomalies. Maternal adnexal regions are unremarkable. Remainder negative. IMPRESSION 1. No acute or adverse changes. 2. Single, live intrauterine gestation with the size correlating well with dates. RL: 1105. Electronically signed by Porter Cheng MD at 11/26 10:31 AM US FIRST HISTORY: Vaginal bleeding. R ule out ectopic. TECHNIQUE: Both transabdominal and transvaginal pelvic ultrasound studieswere completed by the technologist. FINDINGS: Uterus is enlarged, measures approxima 09/16/2019 [facility] Health TRIMESTER LESS THAN 14 tely 10.6 x 5.9 x 6.8 cm ins ize and contains an early intrauterine of approximately 6 weeksand 2 days size by mean sac diameter of 1.58 cm. Gestational sac, yolk sacand pole very faintly WEEKS WITH TRANSVAGINAL visualized with probable fe anupama cardiac activitynoted, heart rate recorded was only 112 BPM. Subcentimeter sizedsubchorionic hemorrhage is detected. Small nabothian cysts are seen in the cervix, t he largest is 6 mm . Right o vary is 3.9 x 2.9 x 2.3 cm (14.31 ml) and left ovary is 3.0 x 2.0 x1.9 cm (6.19 ml). 18 mm corpus luteum hemorrhagicum noted in the rightovary. CONCLUSIONS: Early intrauterin e of 6 weeks and 2 days size withsubcentimeter sized subchorionic hemorrhage. Follow-up transvaginal pelvicultrasound study requested in 2 weeks to confirm live IUP. [facility] Results Inft User - 09/16/2019 8:46 AM CSTHISTORY: Vaginal bleeding. Rule out ectopic. TECHNIQUE: Both transabdominal and transvaginal pelvic ultrasound studies were completed by the technologist. FINDINGS: Uterus is enlarged, measures approxima tely 10.6 x 5.9 x 6.8 cm in size and contains an early intrauterine pregnanc y of approximately 6 weeks and 2 days size by mean sac diameter of 1.58 cm. Gestational sac, yolk sac and pole very faintly visualized with prob able cardiac activity noted, heart rate recorded was only 112 BP M. Subcentimeter sized subchorionic hemorrhage is detected. Small nabothian cysts are seen in the cervix, th e largest is 6 mm . Right ovary is 3.9 x 2.9 x 2.3 cm (14.31 ml) and left ovary is 3.0 x 2.0 x 1.9 cm (6.19 ml). 18 mm corpus luteum hemorrhagi cum noted in the right ovary. CONCLUSIONS: Early intrauterine of 6 w eeks and 2 days size with subcentimeter sized subchorionic hemorrhage. Fol low-up transvaginal pelvic ultrasound study requested in 2 weeks to confirm live IUP. Consultation Notes No Data Provided for This Section Discharge Summaries No Data Provided for This Section History and Physicals No Data Provided for This Section Vital Signs Vital Sign Value Date Comments Source Systolic (mm Hg) 120 12/15/2019 [facility] Diastolic (mm Hg) 66 12/15/2019 [facility]alt h Heart Rate 65 12/15/2019 [facility] Respitory Rate 17 12/15/2019 [facility] Temperature Oral (F) 37.33 Trice 12/14/2019 [facility] He alth Weight 77.111 12/14/2019 [facility] Systolic (mm Hg) 117 11/27/2019 [facility] Diastolic (mm Hg) 74 11/27/2019 [facility]alt h Heart Rate 80 11/27/2019 [facility] Respitory Rate 12 11/27/2019 [facility] Temperature Oral (F) 37.28 Trice 11/27/2019 [facility] He alth Weight 81.647 11/27/2019 [facility] Systolic (mm Hg) 116 11/16/2019 [facility] Diastolic (mm Hg) 74 11/16/2019 [facility]alt h Heart Rate 78 11/16/2019 [facility] Temperature Oral (F) 36.78 Trice 11/16/2019 [facility] alth Respitory Rate 18 11/16/2019 [facility] Height 154.9 cm 11/16/2019 [facility] Weight 83.915 11/16/2019 [facility] Systolic (mm Hg) 130 10/22/2019 [facility] Diastolic (mm Hg) 83 10/22/2019 [facility]alt h Heart Rate 77 10/22/2019 [facility] Temperature Oral (F) 36.28 Trice 10/22/2019 [facility] He alth Respitory Rate 16 10/22/2019 [facility] Height 154.9 cm 10/22/2019 [facility] Weight 79.153 10/22/2019 [facility] Systolic (mm Hg) 117 10/01/2019 [facility] Diastolic (mm Hg) 73 10/01/2019 [facility]alt h Heart Rate 86 10/01/2019 [facility] Temperature Oral (F) 36.67 Trice 10/01/2019 [facility] alth Respitory Rate 16 10/01/2019 [facility] Height 154.9 cm 10/01/2019 [facility] Weight 78.983 10/01/2019 [facility] Systolic (mm Hg) 117 09/16/2019 [facility] Diastolic (mm Hg) 78 09/16/2019 [facility]alt h Heart Rate 74 09/16/2019 [facility] Temperature Oral (F) 36.94 Trice 09/16/2019 [facility] alth Respitory Rate 20 09/16/2019 [facility] Weight 77.565 09/16/2019 [facility] Systolic (mm Hg) 126 09/09/2019 [facility] Diastolic (mm Hg) 82 09/09/2019 [facility]alt h Heart Rate 86 09/09/2019 [facility] Temperature Oral (F) 37.22 Trice 09/09/2019 [facility] alth Respitory Rate 16 09/09/2019 [facility] Height 154.9 cm 09/09/2019 [facility] Weight 77.565 09/09/2019 [facility] Systolic (mm Hg) 119 09/03/2019 [facility] Diastolic (mm Hg) 74 09/03/2019 [facility]alt [facility] Heart Rate 69 09/03/2019 [facility] Temperature Oral (F) 36.94 Trice 09/03/2019 [facility] He alth Respitory Rate 16 09/03/2019 [facility] Height 154.9 cm 09/03/2019 [facility] Weight 77.764 09/03/2019 [facility] Systolic (mm Hg) 112 08/23/2017 [facility] Diastolic (mm Hg) 66 08/23/2017 [facility] [place] [facility] Heart Rate 78 08/23/2017 [facility] Respitory Rate 18 08/23/2017 [facility] daren Center Temperature Oral (F) 98 F 08/23/2017 [facility] Center Systolic (mm Hg) 118 08/23/2017 [facility] dical Center Diastolic (mm Hg) 73 08/23/2017 [facility] edical Center Heart Rate 83 08/23/2017 [facility] Temperature Oral (F) 98.3 F 08/23/2017 [facility] Center Respitory Rate 18 08/23/2017 [facility] daren Center Systolic (mm Hg) 110 08/23/2017 [facility] dical Center Diastolic (mm Hg) 61 08/23/2017 [facility] edical Center Temperature Oral (F) 98.3 F 08/23/2017 [facility] BMI Calculated 36.73 08/23/2017 [facility] daren Center Weight 88.182 08/23/2017 [facility] Height 154.94 cm 08/23/2017 [facility] Weight 88.182 08/23/2017 [facility] Height 154.94 cm 08/23/2017 [facility] BMI Calculated 36.73 08/23/2017 [facility] daren Center Respitory Rate 18 08/23/2017 [facility] daren Center Heart Rate 78 08/23/2017 [facility] Systolic (mm Hg) 135 08/02/2017 [facility] dical Center Diastolic (mm Hg) 65 08/02/2017 [facility] edical Center Systolic (mm Hg) 110 08/02/2017 [facility] dical Center Diastolic (mm Hg) 55 08/02/2017 [facility] edical Center Systolic (mm Hg) 107 08/02/2017 [facility] dical Center Diastolic (mm Hg) 61 08/02/2017 [facility] edical Center Respitory Rate 20 08/02/2017 [facility] daren Center Heart Rate 84 08/02/2017 [facility] Temperature Oral (F) 98.2 F 08/02/2017 [facility] Center Height 154.94 cm 08/02/2017 [facility] Center Weight 85 08/02/2017 [facility] BMI Calculated 35.41 08/02/2017 [facility] [place] [facility] Temperature Oral (F) 98.5 F 08/02/2017 [facility] Center Respitory Rate 18 08/02/2017 [facility] Center Heart Rate 81 08/02/2017 [facility] l Center Systolic (mm Hg) 123 12/08/2015 [facility] dical Center Diastolic (mm Hg) 67 12/08/2015 [facility] Temperature Oral (F) 98.4 F 12/08/2015 [facility] Center Respitory Rate 20 12/08/2015 [facility] Center Heart Rate 64 12/08/2015 [facility] Center Weight 77.273 12/08/2015 [facility] BMI Calculated 32.19 12/08/2015 [facility] daren Center Height 154.94 cm 12/08/2015 [facility] Center Systolic (mm Hg) 124 12/06/2015 [facility] dical Center Diastolic (mm Hg) 81 12/06/2015 [facility] Respitory Rate 18 12/06/2015 [facility] Center Temperature Oral (F) 97.4 F 12/06/2015 [facility] Heart Rate 76 12/06/2015 [facility] Systolic (mm Hg) 110 12/05/2015 [facility] dical Center Diastolic (mm Hg) 63 12/05/2015 [facility] Respitory Rate 18 12/05/2015 [facility] Center Temperature Oral (F) 97.9 F 12/05/2015 [facility] Heart Rate 67 12/05/2015 [facility] Respitory Rate 18 12/05/2015 [facility] Center Systolic (mm Hg) 125 12/05/2015 [facility] dical Center Diastolic (mm Hg) 67 12/05/2015 [facility] edical Center Heart Rate 80 12/05/2015 [facility] Temperature Oral (F) 98.6 F 12/05/2015 [facility] Center Weight 87.727 12/04/2015 [facility] BMI Calculated 36.54 12/04/2015 [facility] Center Height 154.94 cm 12/04/2015 [facility] Respitory Rate 18 12/01/2015 [facility] Medi daren Center Systolic (mm Hg) 118 12/01/2015 [facility] dical Center Diastolic (mm Hg) 78 12/01/2015 [facility] BMI Calculated 36.92 12/01/2015 [facility] Weight 88.636 12/01/2015 [facility] Height 154.94 cm 12/01/2015 [facility] Heart Rate 72 09/20/2015 [facility] Systolic (mm Hg) 119 09/20/2015 [facility] dical Center Diastolic (mm Hg) 72 09/20/2015 [facility] BMI Calculated 32.57 09/20/2015 [facility] Weight 78.182 09/20/2015 [facility] Height 154.94 cm 09/20/2015 [facility] Encounters Location Location Encounter Encounter Reason Attending ADM [place] Stat us Source Details Type Number For Provider Date Date Visit [facility] OBS [id number] [place] 09/20 09/20 [facility] Jez Observation 0 [facility] OBS [id number] [place] 11/30 11/30 [facility] Jez Observation 1 [facility] Inpatient [id number] Soy 12/03 12/06 [facility] Jez 2 Rick-Agarw /2015 [facility] [place] [facility] OBS [id number] Suneet 12/07 12/07 [facility] Jez Observation 3 Gustavo /2015 [facility] Emergency [id number] Tyree Harris 08/02 08/02 [facility] Jez [facility] Observation [id number] Keiko 08/23 08/24 [facility] Jez 5 [facility] Initial [id number] Lyubov 09/03 09/03 [facility] [place] [facility]2019 [facility] [place] Visit [facility]NP ACCESS Nurse [id number] Elizabeth 09/09 [facility] CENTER Triage Josiah RN /2019 [facility] Orders Only [id number] No Doctor 09/09 [facility] Unassigned [facility] Emergency [id number] Mona Saxena 09/09 09/09 [facility] cy PAC /2019 Health Department [facility] Health Telephone [id number] Lyubov 09/10 [facility] [place] /2020 [facility] Health Dairy Feed Mixing Operator [id number] Lyubov 09/10 09/10 [facility]- Visit [place] /2019 [facility] Orders Only [id number] No Doctor 09/16 [facility] Unassigned Health [facility] Emergency [id number] Mg 09/16 09/16 [facility] minnie Stallworth MD /2019 Health Department [facility] Health Telephone [id number] Ang-Rmchp-N 09/21 [facility]- p/High Risk /2019 Healt h [facility] Telephone [id number] Lyubov 09/25 [facility] [place] /2020 Health [facility] Health Routine [id number] Toshia 10/01 10/01 [facility] [place] /2019 Healt [facility] Health Abstract [id number] Lyubov 10/06 [facility] [place] /2020 Health [facility] Health Telephone [id number] Cookie 10/07 [facility] [place] /2020 Health [facility] Health Routine [id number] Cookie 10/22 10/22 [facility] [place] /2019 Health [facility] Orders Only [id number] No Doctor 10/27 [facility] Unassigned /2019 Health [facility] Health Telephone [id number] Cookie 10/29 [facility] [place] /2020 Health [facility] Health Telephone [id number] Lyubov 11/11 [facility] [place] /2020 Health [facility] Orders Only [id number] No Doctor 11/15 [facility] Unassigned /2019 Health [facility] Health Initial [id number] Carolin Bailon MD 11/15 11/15 [facility] Women's /2019 Health Healthcare- Visit [facility] Health Dairy Feed Mixing Operator [id number] Carolin Bailon MD 11/15 11/15 [facility] Professiona Visit /2019 Healt h l Office Building Phlebotomy Lab [facility] Health Telephone [id number] Carolin Bailon MD 11/17 [facility] CENTER Women's /2020 Health Healthcare- [facility] Health Telephone [id number] Carolin Bailon MD 11/22 [facility] Women's 2020 [facility] Health Telephone [id number] Carolin Bailon MD 11/23 [facility] Women's [facility] ADC-Emergen Emergency [id number] Suman Corinne 11/26 11/26 [facility] cy VP LEGAL AFFAIRS /2019 [facility] Health Telemedicin [id number] Keya 12/01 12/01 [facility] RMCHP-Beaum e Visit Radha ARIAS /2019 Health [facility] Health Dairy Feed Mixing Operator [id number] Zofia Edge 12/01 12/01 [facility] RMCHP Visit Brayan /2019 Malinda marques Ultrasound- s [facility] Health Abstract [id number] Lyubov 12/03 [facility] RMCHP- Akinsipe [facility] Telemedicin [id number] Justice 12/03 12/03 [facility] RMCHP-Galve e Visit Marina ARIAS /2019 [facility] Health Telephone [id number] Carolin Bailon MD 12/07 [facility] Women's [facility] ADC-Emergen Emergency [id number] Baljit 12/13 12/14 [facility] minnie Lares MD /2019 [facility] Health Refill [id number] Carolin Bailon MD 12/16 [facility] Women's [facility] Health Dairy Feed Mixing Operator [id number] Carina 12/17 12/17 [facility] Women's Visit Zoran ARIAS /2019 [facility] Health Refill [id number] Carolin Bailon MD 12/18 [facility] Women's [facility] Health Abstract [id number] Lyubov 12/21 [facility] RMCHP- Akinsipe /2019 [facility] Telephone [id number] Shahid Arredondo 12/23 [facility] Pediatric /2019 [facility] Health Case [id number] Elsa Barker 12/28 [facility] Pediatric Management [facility] Health Telephone [id number] Shahid Arredondo 12/28 [facility] Pediatric /2019 [facility] Procedures Procedure Code Date Perfomer Comments Source URINALYSIS 71595 12/15/2019 [facility] CBC WITH 63202 12/15/2019 [facility] DIFFERENTIAL PROTHROMBIN TIME / 02590 12/15/2019 [facility] INR ACTIVATED PARTIAL 18787 12/15/2019 [facility] alth THRMPLAS BENJAMIN LIPASE 95012 12/15/2019 [facility] TROPONIN I 42478 12/15/2019 [facility] COMP. METABOLIC 37342 12/15/2019 [facility] PANEL (01209) CORONAVIRUS COVID-19 U0002 12/15/2019 [facility] TESTING NOTICE OF PRIVACY 12/15/2019 Replaced by [facility] PRACTICES Unassigned CONSENT/REFUSAL FOR 12/15/2019 [facility] DIAGNOSIS AND Unassigned TREATMENT US PELVIS 20138 11/27/2019 [facility] > 14 [place] [address] 11/16/2019 [facility] BENEFITS Unassigned FLU VACC 45294 11/16/2019 [facility] ([phone]), 6+ MONTHS, IM, QUAD MEDICATION 10/28/2019 [facility] CORRESPONDENCE Unassigned POCT URINALYSIS 92898 10/23/2019 [facility] US FIRST 41403 09/16/2019 [facility] TRIMESTER LESS THAN 14 WEEKS WITH TRANSVAGINAL HEPATIC FUNCTION 61440 09/16/2019 [facility] PANEL (90542) (ALB,T.PRO,BILI T,BU/BC,ALT,AST,ALK PHOS) BASIC METABOLIC 20251 09/16/2019 [facility] PANEL (NA, K, CL, CO2, GLUCOSE, BUN, CREATININE, CA) TOTAL BETA HCG ASSAY 41238 09/16/2019 [facility] HB ABO GROUPING 31485 09/16/2019 [facility] POCT TEST 07100 09/16/2019 [facility] RUBELLA SCREEN IGG 42148 09/04/2019 [facility] ealt VZV ANTIBODY SCREEN 56155 09/04/2019 [facility] HEPATITIS B SURFACE 84498 09/04/2019 [facility] ANTIGEN GC & CHLAMYDIA 04659 09/04/2019 [facility] AMPLIFIED ASSAY PAP SMEAR-LIQUID 86934 09/04/2019 [facility] lth BASED-CP HIV 1/2 AG-AB WITH 44621 09/04/2019 [facility] H ealth REFLEX GALV ONLY - SYPHILIS 29580 09/04/2019 [facility] IGG/IGM POCT URINALYSIS W/O 20426 09/04/2019 [facility] SPECIFIC GRAVITY Tonsillectomy [id number] 08/26/2002 [facility] Appendectomy [id number] 08/26/1999 [facility] Cystectomy [id number] 08/26/1992 [facility] D&C - Dilatation and [id number] [place] curettage [facility] Assessment and Plan Assessment and Plan Date Source Extracted from:Title: Clinical Document 08/24/2017 [facility] Author: Marisabel Alfredo MD Date: 08/23/17 Pt reports contractions have resolved. She reports normal fe anupama movement. Cervix 4-5/60/-3, head not engaged. Has been seen by hematology, recommendations given. Will d/c home. Marisabel Alfredo MD PGY6 Extracted from:Title: Hematology Iniitial Consult Note Author: Ellie French MD Date: 08/23/17 Patient: ARABELLA POLANCO Pauly RN: [id number] Age: 27 years Sex: Female : 1990 [...] On admission pt report 3 day hx frequent . intense contractions occurring every 3 min. 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 She has no family hx VWD or thrombosis. Denies any major bleedi ng but does report hx of frequent mild n ose bleeds (only from left nare) and heavy menstrual cycles (no clots). She has never required a blood transfusion. She was in 2016 and gave vagin ally which she reports was w/o significa nt bleeding. During her in 2016 w/u for VWD was obtained which was without evidence of VWD. . She was told to f/u with hematology after giving but she states she did not f/u (however, st ates she was seen by a laboratory machinist while ). Pt reports she is doing well today. Stat es last nose bleed was yesterday and lasted [...] mL: 125 ml/hr, IV, Stop: 09/22/17 0:03:00 BELL PERSON antihemophilic factor-von Willebrand factor: 1,399 unit, 180 ml/hr, IV, ONCALL carboprost: 250 microgram, 1 mL, IM, ONCALL citric acid-sodium citrate: 30 mL, PO, ONCALL famotidine: 20 mg, 2 mL, IVP, ONCALL fentaNYL (PF) 20 mcg/ml DRUM TENDER (600 microgr am /30 mL) 600 microgram: Per DRUM TENDER Order as Directed, IV, Stop: 09/22/17 4:33:00 BELL PERSON ibuprofen: 600 mg, 1 tab, PO, Q6H, PRN: Other -See Comment lidocaine 1% injectable solution: 2.5 mg , 0.25 mL, INTRADERM, PRN, PRN: Other - See Comment lidocaine 1%: 200 mg, 20 mL, PERCUT, PRN, PRN: Other -See Co mment methylergonovine: 0.2 mg, 1 mL, IM, ONCALL misoprostol: 1,000 microgram, 5 tab, UT, ONCALL naloxone: 0.04 mg, 0.1 mL, IVP, Q2MIN, PRN: Narcotic Reversa l ondansetron: 4 mg, 2 mL, IVP, Q8H, PRN: Nausea and Vomiting oxytocin 30 units in NS 500ml (Titrate) IV 30 unit: 42 ml/hr, IV, Stop: 08/25/17 0:03:00 BELL PERSON penicillin G potassium: 2,500,000 unit, 50 mL, 100 ml/hr, IV PB, ABXQ4H terbutaline: 0.25 mg, 0.25 mL, SUB-Q, PRN, PRN: Other -See C omment Prescriptions Prescribed docusate sodium 100 mg oral capsule: 100 mg, 1 cap, PO, BID, PRN: Constipation, 30 cap, 1 Refill(s) ferrous sulfate 325 mg oral enteric coat ed tablet: 325 mg, 1 tab, PO, Daily, 30 tab, 0 Refill(s) ibuprofen 800 mg oral tablet: 800 mg, 1 tab, PO, Q8H, PRN: Pain Score 7-10, 30 tab, 0 Refill(s) Documented Medications Documented Multivitamins with Folic Acid 0.8 mg oral kit: 0 Re fill(s), Medications (16) Active Scheduled: (7) carboprost 250 microgram/1 ml AMP 250 microgram 1 mL, IM, O NCALL citric acid-sodium citrate 15ml LIQ ud 30 mL, PO, ONCALL famotidine 20 mg/2 ml INJ VL 20 mg 2 mL, IVP, ONCALL Humate-P (antihemophilic factor) 100 unit INJ 1,399 unit, IV, ONCALL methylergonovine 0.2 mg/1 ml INJ AMP 0.2 mg 1 mL, IM, ONCAL L misoprostol 200 microgram TAB 1,000 microgram 5 tab, UT, MAT SEWER PENIcillin G potassium 2.5MiUnit/NS 50ml 2,500,000 unit 50 mL, IVPB, ABXQ4H Continuous: (3) fentaNYL DRUM TENDER 20 micrograms/ml 30 ml 600 microgram 600 micro gram 30 mL, IV Lactated Ringers 1,000 mL [...] list: All Problems Asthma / SNOMED CT [id number] / Co nfirmed / SNOMED CT 332374485 / Confirmed Premature labor / SNOMED CT 11175443 / Confirmed Von Willebrand disease / SNOMED CT 84BE8 [id number] / Confirmed, Active Problems (4) Asthma Premature labor Von Willebrand disease Histories Past Medical History: Active Von Willebrand disease ([id number] ) Asthma ([id number]) Resolved (844251578): Onset on 03/27/2015 at 25 years. Resolved on 12/04/2015 at 25 years. ([id number]): Onset on 01/24/2012 at 21 years. Resolved on 10/23/2012 at 22 years. ([id number]): Onset on 05/07/2011 at 21 years. Resolved on 08/06/2011 at 21 years. Chlamydia (88379349): Resolved. Bipolar 1 disorder (8895035547): Resolved. Family History: High blood pressure Mother Grandparent DM - Diabetes mellitus Mother Cancer of prostate Grandparent Procedure history: Tonsillectomy (992990503) in 2002 at 13 Years. Appendectomy (671723088) in 1999 at 10 Years. Cystectomy (3852780467) in 1992 at 3 Years. D&C - Dilatation and curettage (4257264042). Social History Social and Psychosocial Habits Alcohol 09/19/2015 Use: Never 12/08/2015 [...] 22 23:32) Resp Rate 18 BRMIN (AUG 22:32) SBP 114 mmHg (AUG 23 05:30) DBP 67 mmHg (AUG 23 05:30) SpO2 L 84 % (AUG 23:) Weight 88.182 kg (AUG 23:47) Height 154.94 cm (AUG 2347) BMI 36.73 (AUG 2347) Labs Most Recent Results Previous Results Previous [...] VWD dx at age 8 and hx o f nose bleeds and menstrual cycles. She reports no hx of major bleeding or need for transfusion. However, no diagnostic evidence to confirm this dx. W/u obtained in 2015 while she was was notab le for elevated VWF ag , VWF R;Co [...] have pt call the clin ic at [phone] to arrange an appointment for [address] given . Pt comanaged with Dr. Greene and Dr Clair Sánchez. Please see Attn attestation. We will sign off at this time but please contact our team if any new hematological issues arise. Addendum by Guevara Greene MD on 08/23/2017 23:03 I saw and examined the patient with Dr. French and agree with findings, assessement and plan, as depicted in the fellows note. Extracted from:Title: Clinical Document 12/08/2015 [facility] Author: Shamika Torrez MD Date: 12/08/15 R2 Triage H&P CC: chest pain HPI: Patient is a 25 yo s/p PTSV D at 36 wks PPD# 4 with ?vWD who presents to triage complaining of chest pain this morning. Patient reports she woke up and had chest pain that lasted for about 2 mins. The pain was sharp and in the mid dle of her chest. Pain did not radiate. She also had some numbness on her left side that also lasted for a minute. Both have resolved. She denies SOB. patient jus t wanted to make sure everything is ok s o she presents to triage. Patient is without any issues. Vaginal bleeding has decreased. Mood is stable. Baby is doing well in NICU and may be discharged today. Denies fever, chills, N/V, headaches, vision changes, OB hx: * 2010 - SAB at 13 wks ,D&C * 2013 - term, female, 7 lb 13 oz, , [facility], + epi, shoulder dystocia? 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 Gen: NAD CV: RRR Resp: CTAB, No CVAT Abd: soft, NTTP Ext: No c/c/e A/P: Patient is a 25 yo s/p PTSV D at 36 wks PPD# 4 with ?vWD who presents to triage complaining of chest pain * Chest pain: Lasted 3 mins with numbnes s that lasted about 2 min this morning. Denies any sxs currently. VSS wnl. 97% o2 sat on RA. Neuro exam wnl. Rest of exam unremarkable. ER precautions given. * F/u at OB clinic as scheduled. * D/w Dr. Miguel Torrez, PGY-2 Plan of Care Plan of Care Date Source DTaP,Tdap,and Td Vaccines (3 - Td) 07/15/2027 [facility] PAP SMEAR 09/03/2022 [facility] POCT URINALYSIS W SPECIFIC GRAVITY 06/29/2020 [facility] LAB Routine Supervision of high risk , antepartum 20 Occurrences starting 09/03/2019 until 06/29/2020 Upcoming EncountersDateTypeSpecialtyCare TeamDescription 12/2019 [facility] 12/30/2019 Dairy Feed Mixing Operator Visit Maternal Medicine Zofia Morgan MD[address] [id number], [place] [phone] (Fax) 12/30/2019 Dairy Feed Mixing Operator Visit [facility] Zofia Morgan MD[address] [id number], [place] [phone] (Fax) Lab, [facility] MaintenanceDue DateLast DoneComments PAP SMEAR 09/03/2022 09/03/2019, 05/25/2015, 09/01/2009 DTaP,Tdap,and Td Vaccines (3 - Td) 07/15/2027 07/15/2017, 10/23/2012 INFLUENZA VACCINE Completed 11/16/2019, 05/25/2015 PNEUMOCOCCAL 0-64 YEARS COMBINED SERIES Aged Out No longer eligible based on patient's age to complete this t opic documented as of this encounter Upcoming EncountersDateTypeSpecialtyCare TeamDescription 12/2019 [facility] 12/30/2019 Dairy Feed Mixing Operator Visit Maternal Medicine Zofia Morgan MD[address] [id number] [place] [phone] (Fax) 12/30/2019 Dairy Feed Mixing Operator Visit [facility] Zofia Morgan MD[address] [id number], [place] [phone] (Fax) Lab, [facility] Scheduled OrdersNameTypePriorityAssociated DiagnosesOrder Sc hedule FRAGILE X LAB Routine Family history of autism Expected: 12/29/2019, Expires: 02/27/2020 Health MaintenanceDu DateLast DoneComments PAP SMEAR 09/03/2022 09/03/2019, 05/25/2015, 09/01/2009 DTaP,Tdap,and Td Vaccines (3 - Td) 07/15/2027 07/15/2017, 10/23/2012 INFLUENZA VACCINE Completed 11/16/2019, 05/25/2015 PNEUMOCOCCAL 0-64 YEARS COMBINED SERIES Aged Out No longer eligible based on patient's age to complete this t opic documented as of this encounter FRAGILE X 12/29/2019 [facility] LAB Routine Family history of autism Expected: 12/29/2019, Expires: 02/27/2020 Upcoming EncountersDateTypeSpecialtyCare TeamDescription [facility] 12/30/2019 Dairy Feed Mixing Operator Visit Maternal Medicine Zofia Morgan MD[address] [phone] (Fax) Health MaintenanceDue DateLast DoneComments PAP SMEAR 09/03/2022 09/03/2019, 05/25/2015, 09/01/2009 DTaP,Tdap,and Td Vaccines (3 - Td) 07/15/2027 07/15/2017, 10/23/2012 INFLUENZA VACCINE Completed 11/16/2019, 05/25/2015 PNEUMOCOCCAL 0-64 YEARS COMBINED SERIES Aged Out No longer eligible based on patient's age to complete this t opic documented as of this encounter Upcoming EncountersDateTypeSpecialtyCare TeamDescription [facility] 12/24/2019 Dairy Feed Mixing Operator Visit Maternal Medicine Zofia Morgan MD[address] [id number], [place] [phone] (Fax) 12/30/2019 Dairy Feed Mixing Operator Visit Maternal Medicine Zofia Morgan MD[address] [facility] [address] [phone] (Fax) 01/05/2020 Dairy Feed Mixing Operator Visit Maternal Medicine Zofia Morgan MD[id number] [place] [address] [phone] (Fax) [facility] DateLast DoneComments PAP SMEAR 09/03/2022 09/03/2019, 05/25/2015, 09/01/2009 DTaP,Tdap,and Td Vaccines (3 - Td) 07/15/2027 07/15/2017, 10/23/2012 INFLUENZA VACCINE Completed 11/16/2019, 05/25/2015 PNEUMOCOCCAL 0-64 YEARS COMBINED SERIES Aged Out No longer eligible based on patient's age to complete this t opic documented as of this encounter Upcoming EncountersDateTypeSpecialtyCare TeamDescription [facility] 12/24/2019 Dairy Feed Mixing Operator Visit Maternal Medicine Zofia Morgan MD[address] [phone] (Fax) 12/30/2019 Dairy Feed Mixing Operator Visit Maternal Medicine Zofia Morgan MD[address] [id number] [place] [address] [phone] (Fax) 01/05/2020 Dairy Feed Mixing Operator Visit Maternal Medicine Zofia Morgan MD[address] [phone] (Fax) [facility] DateLast DoneComments PAP SMEAR 09/03/2022 09/03/2019, 05/25/2015, 09/01/2009 DTaP,Tdap,and Td Vaccines (3 - Td) 07/15/2027 07/15/2017, 10/23/2012 INFLUENZA VACCINE Completed 11/16/2019, 05/25/2015 PNEUMOCOCCAL 0-64 YEARS COMBINED SERIES Aged Out No longer eligible based on patient's age to complete this t opic documented as of this encounter Upcoming EncountersDateTypeSpecialtyCare TeamDescription [facility] 12/24/2019 Dairy Feed Mixing Operator Visit Maternal Medicine Zofia Morgan MD[address] [id number], [place] [phone] (Fax) 12/30/2019 Dairy Feed Mixing Operator Visit Maternal Medicine Zofia Morgan MD[address] [id number], [place] [phone] (Fax) 01/05/2020 Dairy Feed Mixing Operator Visit Maternal Medicine Zofia Morgan MD[address] [id number], [place] [phone] (Fax) Health MaintenanceDue DateLast DoneComments PAP SMEAR 09/03/2022 09/03/2019, 05/25/2015, 09/01/2009 DTaP,Tdap,and Td Vaccines (3 - Td) 07/15/2027 07/15/2017, 10/23/2012 INFLUENZA VACCINE Completed 11/16/2019, 05/25/2015 PNEUMOCOCCAL 0-64 YEARS COMBINED SERIES Aged Out No longer eligible based on patient's age to complete this t opic documented as of this encounter Upcoming EncountersDateTypeSpecialtyCare TeamDescription [facility] 12/24/2019 Dairy Feed Mixing Operator Visit Maternal Medicine Zofia Morgan MD[address] [id number], [place] [phone] (Fax) 12/30/2019 Dairy Feed Mixing Operator Visit Maternal Medicine Zofia Morgan MD[address] [id number], [place] [phone] (Fax) 01/05/2020 Dairy Feed Mixing Operator Visit Maternal Medicine Zofia Morgan MD[address] [id number], [place] [phone] (Fax) Health MaintenanceDue DateLast DoneComments PAP SMEAR 09/03/2022 09/03/2019, 05/25/2015, 09/01/2009 DTaP,Tdap,and Td Vaccines (3 - Td) 07/15/2027 07/15/2017, 10/23/2012 INFLUENZA VACCINE Completed 11/16/2019, 05/25/2015 PNEUMOCOCCAL 0-64 YEARS COMBINED SERIES Aged Out No longer eligible based on patient's age to complete this t opic documented as of this encounter Upcoming EncountersDateTypeSpecialtyCare TeamDescription [facility] 12/18/2019 Dairy Feed Mixing Operator Visit Obstetrics and Gynecology Ultrasound, [facility] 12/24/2019 Dairy Feed Mixing Operator Visit Maternal Medicine Zofia Morgan MD[address] [id number], [place] [phone] (Fax) 12/30/2019 Dairy Feed Mixing Operator Visit Maternal Medicine Zofia Morgan MD[address] [id number], [place] [phone] (Fax) 01/05/2020 Dairy Feed Mixing Operator Visit Maternal Medicine Zofia Morgan MD[address] [id number], [place] [phone] (Fax) Health MaintenanceDue DateLast DoneComments PAP SMEAR 09/03/2022 09/03/2019, 05/25/2015, 09/01/2009 DTaP,Tdap,and Td Vaccines (3 - Td) 07/15/2027 07/15/2017, 10/23/2012 INFLUENZA VACCINE Completed 11/16/2019, 05/25/2015 PNEUMOCOCCAL 0-64 YEARS COMBINED SERIES Aged Out No longer eligible based on patient's age to complete this t opic documented as of this encounter Upcoming EncountersDateTypeSpecialtyCare TeamDescription [facility] 12/09/2019 Dairy Feed Mixing Operator Visit Maternal Medicine Zofia Morgan MD[address] [id number], [place] [phone] (Fax) 12/18/2019 Dairy Feed Mixing Operator Visit Obstetrics and Gynecology Ultrasound, [facility] 12/24/2019 Dairy Feed Mixing Operator Visit Maternal Medicine Zofia Morgan MD[address] [id number], [place] [phone] (Fax) 12/30/2019 Dairy Feed Mixing Operator Visit Maternal Medicine Zofia Morgan MD[address] [id number], [place] [phone] (Fax) 01/05/2020 Dairy Feed Mixing Operator Visit Maternal Medicine Zofia Morgan MD[address] [id number], [place] [phone] (Fax) Health MaintenanceDue DateLast DoneComments PAP SMEAR 09/03/2022 09/03/2019, 05/25/2015, 09/01/2009 DTaP,Tdap,and Td Vaccines (3 - Td) 07/15/2027 07/15/2017, 10/23/2012 INFLUENZA VACCINE Completed 11/16/2019, 05/25/2015 PNEUMOCOCCAL 0-64 YEARS COMBINED SERIES Aged Out No longer eligible based on patient's age to complete this t opic documented as of this encounter Upcoming EncountersDateTypeSpecialtyCare TeamDescription 05/2020 [facility] 12/09/2019 Dairy Feed Mixing Operator Visit Maternal Medicine Zofia Morgan MD[address] [id number], [place] [phone] (Fax) 12/18/2019 Dairy Feed Mixing Operator Visit Obstetrics and Gynecology Ultrasound, [facility] 12/24/2019 Dairy Feed Mixing Operator Visit Maternal Medicine Zofia Morgan MD[address] [id number], [place] [phone] (Fax) 12/30/2019 Dairy Feed Mixing Operator Visit Maternal Medicine Zofia Morgan MD[address] [id number], [place] [phone] (Fax) 01/05/2020 Dairy Feed Mixing Operator Visit Maternal Medicine Zofia Morgan MD[id number] [place] [address] [phone] (Fax) [facility] DateLast DoneComments PAP SMEAR 09/03/2022 09/03/2019, 05/25/2015, 09/01/2009 DTaP,Tdap,and Td Vaccines (3 - Td) 07/15/2027 07/15/2017, 10/23/2012 INFLUENZA VACCINE Completed 11/16/2019, 05/25/2015 PNEUMOCOCCAL 0-64 YEARS COMBINED SERIES Aged Out No longer eligible based on patient's age to complete this t opic documented as of this encounter Upcoming EncountersDateTypeSpecialtyCare TeamDescription 05/2020 [facility] 12/09/2019 Dairy Feed Mixing Operator Visit Maternal Medicine oZfia Morgan MD[address] [phone] (Fax) 12/18/2019 Dairy Feed Mixing Operator Visit Obstetrics and Gynecology Ultrasound, [facility] 12/24/2019 Dairy Feed Mixing Operator Visit Maternal Medicine Zofia Morgan MD[id number] [place] [address] [phone] (Fax) 12/30/2019 Dairy Feed Mixing Operator Visit Maternal Medicine Zofia Morgan MD[id number] [place] [address] [phone] (Fax) 01/05/2020 Dairy Feed Mixing Operator Visit Maternal Medicine Zofia Morgan MD[address] [id number] [place] [address] [phone] (Fax) [facility] DateLast DoneComments PAP SMEAR 09/03/2022 09/03/2019, 05/25/2015, 09/01/2009 DTaP,Tdap,and Td Vaccines (3 - Td) 07/15/2027 07/15/2017, 10/23/2012 INFLUENZA VACCINE Completed 11/16/2019, 05/25/2015 PNEUMOCOCCAL 0-64 YEARS COMBINED SERIES Aged Out No longer eligible based on patient's age to complete this t opic documented as of this encounter Upcoming EncountersDateTypeSpecialtyCare TeamDescription 03/2020 [facility] 12/02/2019 Telemedicine Visit [facility] Keya Garcia MD[id number], [place] [phone] (Fax) Consults, [facility] Arrived 12/04/2019 Telemedicine Visit [facility] Fellow, [facility] 12/09/2019 Dairy Feed Mixing Operator Visit Maternal Medicine Zofia Morgan MD[address] [id number], [place] [phone] (Fax) 12/18/2019 Dairy Feed Mixing Operator Visit Obstetrics and Gynecology Ultrasound, [facility] 12/24/2019 Dairy Feed Mixing Operator Visit Maternal Medicine Zofia Morgan MD[address] [id number], [place] [phone] (Fax) 12/30/2019 Dairy Feed Mixing Operator Visit Maternal Medicine Zofia Morgan MD[address] [id number], [place] [phone] (Fax) 01/05/2020 Dairy Feed Mixing Operator Visit Maternal Medicine Zofia Morgan MD[address] [id number], [place] [phone] (Fax) Health MaintenanceDue DateLast DoneComments PAP SMEAR 09/03/2022 09/03/2019, 05/25/2015, 09/01/2009 DTaP,Tdap,and Td Vaccines (3 - Td) 07/15/2027 07/15/2017, 10/23/2012 INFLUENZA VACCINE Completed 11/16/2019, 05/25/2015 PNEUMOCOCCAL 0-64 YEARS COMBINED SERIES Aged Out No longer eligible based on patient's age to complete this t opic documented as of this encounter Upcoming EncountersDateTypeSpecialtyCare TeamDescription 03/2020 [facility] 12/04/2019 Telemedicine Visit OB Satellites Fellow, [facility] 12/09/2019 Dairy Feed Mixing Operator Visit Maternal Medicine Zofia Morgan MD[address] [id number], [place] [phone] (Fax) 12/18/2019 Dairy Feed Mixing Operator Visit Obstetrics and Gynecology Ultrasound, [facility] 12/24/2019 Dairy Feed Mixing Operator Visit Maternal Medicine Zofia Morgan MD[address] [id number], [place] [phone] (Fax) 12/30/2019 Dairy Feed Mixing Operator Visit Maternal Medicine Zofia Morgan MD[address] [id number], [place] [phone] (Fax) 01/05/2020 Dairy Feed Mixing Operator Visit Maternal Medicine Zofia Morgan MD[address] [id number], [place] [phone] (Fax) Health MaintenanceDue DateLast DoneComments PAP SMEAR 09/03/2022 09/03/2019, 05/25/2015, 09/01/2009 DTaP,Tdap,and Td Vaccines (3 - Td) 07/15/2027 07/15/2017, 10/23/2012 INFLUENZA VACCINE Completed 11/16/2019, 05/25/2015 PNEUMOCOCCAL 0-64 YEARS COMBINED SERIES Aged Out No longer eligible based on patient's age to complete this t [facility] documented as of this encounter Upcoming EncountersDateTypeSpecialtyCare TeamDescription 10/2019 [facility] 12/02/2019 Telemedicine Visit OB Satellites Keya Garcia MD[id number], [place] [phone] (Fax) Consults, [facility] 12/18/2019 Dairy Feed Mixing Operator Visit Obstetrics and Gynecology Ultrasound, [facility] DateLast DoneComments PAP SMEAR 09/03/2022 09/03/2019, 05/25/2015, 09/01/2009 DTaP,Tdap,and Td Vaccines (3 - Td) 07/15/2027 07/15/2017, 10/23/2012 INFLUENZA VACCINE Completed 11/16/2019, 05/25/2015 PNEUMOCOCCAL 0-64 YEARS COMBINED SERIES Aged Out No longer eligible based on patient's age to complete this t opic documented as of this encounter ALPHA FETOPROTEIN-MATERNAL SER 11/16/2019 [facility] LAB Routine High-risk , second trimester 11/16/2019 9:53 AM CDT EKG-12 LEAD ROUTINE 11/16/2019 [facility] Health HEART STATION Routine Chest pain, unspecified type Ordered: 11/16/2019 ALPHA FETOPROTEIN-MATERNAL SER 11/16/2019 [facility] LAB Routine High-risk , second trimester 11/16/2019 9:53 AM CDT ALPHA FETOPROTEIN-MATERNAL SER 11/16/2019 [facility] LAB Routine High-risk , second trimester Expected: 11/16/2019, Expires: 12/16/2019 Upcoming EncountersDateTypeSpecialtyCare TeamDescription [facility] 11/16/2019 Initial Visit Obstetrics and Gynecology Carolin Bailon MD[address] [place] [address] [address] [place] [address] [phone] (Fax) Health MaintenanceDue DateLast DoneComments INFLUENZA VACCINE (#1) 2019 05/25/2015 PAP SMEAR 09/03/2022 09/03/2019, 05/25/2015, 09/01/2009 DTaP,Tdap,and Td Vaccines (3 - Td) 07/15/2027 07/15/2017, 10/23/2012 PNEUMOCOCCAL 0-64 YEARS COMBINED SERIES Aged Out No longer eligible based on patient's age to complete this t opic documented as of this encounter Upcoming EncountersDateTypeSpecialtyCare TeamDescription 01/2020 [facility] 11/19/2019 Routine Visit OB Satellites Lyubov Stiles, [id number] [place], [place] [phone] (Fax) Health MaintenanceDue DateLast DoneComments INFLUENZA VACCINE (#1) 2019 05/25/2015 PAP SMEAR 09/03/2022 09/03/2019, 05/25/2015, 09/01/2009 DTaP,Tdap,and Td Vaccines (3 - Td) 07/15/2027 07/15/2017, 10/23/2012 PNEUMOCOCCAL 0-64 YEARS COMBINED SERIES Aged Out No longer eligible based on patient's age to complete this t opic documented as of this encounter Upcoming EncountersDateTypeSpecialtyCare TeamDescription 12/2019 [facility] 11/19/2019 Routine Visit OB Satellites Lyubov Stiles, [id number] [place], [place] [phone] (Fax) Health MaintenanceDu DateLast DoneComments INFLUENZA VACCINE (#1) 2019 05/25/2015 PAP SMEAR 09/03/2022 09/03/2019, 05/25/2015, 09/01/2009 DTaP,Tdap,and Td Vaccines (3 - Td) 07/15/2027 07/15/2017, 10/23/2012 PNEUMOCOCCAL 0-64 YEARS COMBINED SERIES Aged Out No longer eligible based on patient's age to complete this t opic documented as of this encounter URINE CULTURE 10/11/2019 [facility] LAB Routine Supervision of high risk in first trimester Expected: 10/11/2019, Expires: 11/09/2019 Upcoming EncountersDateTypeSpecialtyCare TeamDescription 07/2020 [facility] 10/22/2019 Routine Visit OB Satellites Cookie Hylton, [id number] [place], [place] [phone] (Fax) Health MaintenanceDu DateLast DoneComments INFLUENZA VACCINE (#1) 2019 05/25/2015 PAP SMEAR 09/03/2022 09/03/2019, 05/25/2015, 09/01/2009 DTaP,Tdap,and Td Vaccines (3 - Td) 07/15/2027 07/15/2017, 10/23/2012 PNEUMOCOCCAL 0-64 YEARS COMBINED SERIES Aged Out No longer eligible based on patient's age to complete this t opic documented as of this encounter Upcoming EncountersDateTypeSpecialtyCare TeamDescription 06/2020 [facility] 10/22/2019 Routine Visit OB Satellites Cookie Hylton, [id number] [place] [phone] (Fax) [facility] DateLast DoneComments INFLUENZA VACCINE (#1) 2019 05/25/2015 PAP SMEAR 09/03/2022 09/03/2019, 05/25/2015, 09/01/2009 DTaP,Tdap,and Td Vaccines (3 - Td) 07/15/2027 07/15/2017, 10/23/2012 PNEUMOCOCCAL 0-64 YEARS COMBINED SERIES Aged Out No longer eligible based on patient's age to complete this t opic documented as of this encounter Upcoming EncountersDateTypeSpecialtyCare TeamDescription 01/2020 [facility] 10/22/2019 Routine Visit OB Satellites Cookie Hylton, [id number] [facility] [place] [phone] (Fax) Pending ResultsNameTypePriorityAssociated DiagnosesDate/Time URINE CULTURE LAB Routine Supervision of high risk in first trimester 10/01/2019 10:43 AM BELL PERSON GC and CHLAMYDIA AMPLIFIED ASSAY LAB Routine Chlamydia infection affecting in first trimester 10/01/2019 11:30 AM BELL PERSON Scheduled OrdersNameTypePriorityAssociated DiagnosesOrder Sc hedule GC and CHLAMYDIA AMPLIFIED ASSAY LAB Routine Chlamydia infection affecting in first trimester Expected: 10/01/2019, Expires: 10/01/2020 [facility] DateLast DoneComments INFLUENZA VACCINE (#1) 2019 05/25/2015 PAP SMEAR 09/03/2022 09/03/2019, 05/25/2015, 09/01/2009 DTaP,Tdap,and Td Vaccines (3 - Td) 07/15/2027 07/15/2017, 10/23/2012 PNEUMOCOCCAL 0-64 YEARS COMBINED SERIES Aged Out No longer eligible based on patient's age to complete this t opic documented as of this encounter URINE CULTURE 10/01/2019 [facility] LAB Routine Supervision of high risk in first trimester 10/01/2019 10:43 AM BELL PERSON GC and CHLAMYDIA AMPLIFIED ASSAY 10/01/2019 [facility] He alth LAB Routine Chlamydia infection affecting in first trimester 10/01/2019 11:30 AM BELL PERSON GC and CHLAMYDIA AMPLIFIED ASSAY 10/01/2019 [facility] He alth LAB Routine Chlamydia infection affecting in first trimester Expected: 10/01/2019, Expires: 10/01/2020 Upcoming EncountersDateTypeSpecialtyCare TeamDescription 10/2019 [facility] 10/01/2019 Routine Visit OB Satellites Risk, Nbt-Oftbn-My/High 10/02/2019 Dairy Feed Mixing Operator Visit Maternal Medicine [facility] DateLast DoneComments INFLUENZA VACCINE (#1) 2019 05/25/2015 PAP SMEAR 09/03/2022 09/03/2019, 05/25/2015, 09/01/2009 DTaP,Tdap,and Td Vaccines (3 - Td) 07/15/2027 07/15/2017, 10/23/2012 PNEUMOCOCCAL 0-64 YEARS COMBINED SERIES Aged Out No longer eligible based on patient's age to complete this t opic documented as of this encounter Upcoming EncountersDateTypeSpecialtyCare TeamDescription [facility] 10/01/2019 Routine Visit OB Satellites Risk, Mtu-Cfali-Sz/High [facility] DateLast DoneComments INFLUENZA VACCINE (#1) 2019 05/25/2015 PAP SMEAR 09/03/2022 09/03/2019, 05/25/2015, 09/01/2009 DTaP,Tdap,and Td Vaccines (3 - Td) 07/15/2027 07/15/2017, 10/23/2012 PNEUMOCOCCAL 0-64 YEARS COMBINED SERIES Aged Out No longer eligible based on patient's age to complete this t opic documented as of this encounter Upcoming EncountersDateTypeSpecialtyCare TeamDescription [facility] 10/01/2019 Routine Visit OB Satellites Risk, Uch-Cqqtd-Ir/High [facility] [place] DateLast DoneComments INFLUENZA VACCINE (#1) 2019 05/25/2015 PAP SMEAR 09/03/2022 09/03/2019, 05/25/2015, 09/01/2009 DTaP,Tdap,and Td Vaccines (3 - Td) 07/15/2027 07/15/2017, 10/23/2012 PNEUMOCOCCAL 0-64 YEARS COMBINED SERIES Aged Out No longer eligible based on patient's age to complete this t opic documented as of this encounter Upcoming EncountersDateTypeSpecialtyCare TeamDescription [facility] 10/01/2019 Routine Visit OB Satellites Risk, Hgf-Gcdse-Zx/High [facility] MaintenanceDu DateLast DoneComments INFLUENZA VACCINE (#1) 2019 05/25/2015 PAP SMEAR 09/03/2022 09/03/2019, 05/25/2015, 09/01/2009 DTaP,Tdap,and Td Vaccines (3 - Td) 07/15/2027 07/15/2017, 10/23/2012 PNEUMOCOCCAL 0-64 YEARS COMBINED SERIES Aged Out No longer eligible based on patient's age to complete this t opic documented as of this encounter Upcoming EncountersDateTypeSpecialtyCare TeamDescription [facility] 10/01/2019 Routine Visit OB Satellites Risk, Mjp-Jadgd-Po/High [facility] DateLast DoneComments INFLUENZA VACCINE (#1) 2019 05/25/2015 PAP SMEAR 09/03/2022 09/03/2019, 05/25/2015, 09/01/2009 DTaP,Tdap,and Td Vaccines (3 - Td) 07/15/2027 07/15/2017, 10/23/2012 PNEUMOCOCCAL 0-64 YEARS COMBINED SERIES Aged Out No longer eligible based on patient's age to complete this t opic documented as of this encounter Upcoming EncountersDateTypeSpecialtyCare TeamDescription [facility] 10/01/2019 Routine Visit OB Satellites Risk, Afp-Nspet-Nz/High Scheduled OrdersNameTypePriorityAssociated DiagnosesOrder Sc hedule URINE CULTURE LAB Routine Supervision of high risk in first trimester Expected: 10/11/2019, Expires: 11/09/2019 [facility] DateLast DoneComments PAP SMEAR 05/25/2018 05/25/2015, 09/01/2009 INFLUENZA VACCINE (#1) 2019 05/25/2015 DTaP,Tdap,and Td Vaccines (3 - Td) 07/15/2027 07/15/2017, 10/23/2012 PNEUMOCOCCAL 0-64 YEARS COMBINED SERIES Aged Out No longer eligible based on patient's age to complete this t opic documented as of this encounter Upcoming EncountersDateTypeSpecialtyCare TeamDescription [facility] 10/01/2019 Routine Visit OB Satellites Risk, Xjj-Cdkdf-Av/High Health MaintenanceDue DateLast DoneComments PAP SMEAR 05/25/2018 05/25/2015, 09/01/2009 INFLUENZA VACCINE (#1) 2019 05/25/2015 DTaP,Tdap,and Td Vaccines (3 - Td) 07/15/2027 07/15/2017, 10/23/2012 PNEUMOCOCCAL 0-64 YEARS COMBINED SERIES Aged Out No longer eligible based on patient's age to complete this t opic documented as of this encounter Upcoming EncountersDateTypeSpecialtyCare TeamDescription [facility] 10/01/2019 Routine Visit OB Satellites Risk, Nij-Fcmxy-Xx/High [facility] MaintenanceDue DateLast DoneComments PAP SMEAR 05/25/2018 05/25/2015, 09/01/2009 INFLUENZA VACCINE (#1) 2019 05/25/2015 DTaP,Tdap,and Td Vaccines (3 - Td) 07/15/2027 07/15/2017, 10/23/2012 PNEUMOCOCCAL 0-64 YEARS COMBINED SERIES Aged Out No longer eligible based on patient's age to complete this t opic documented as of this encounter Glucose 1 Hour Post Prandial 09/10/2019 [facility] LAB Routine Supervision of high risk , antepartum Expected: 09/10/2019, Expires: 09/03/2020 Upcoming EncountersDateTypeSpecialtyCare TeamDescription [facility] 09/10/2019 Dairy Feed Mixing Operator Visit OB Satellites Lab, [facility] 10/01/2019 Routine Visit OB Satellites Risk, Qiw-Arkpb-Hw/High Health MaintenanceDue DateLast DoneComments PAP SMEAR 05/25/2018 05/25/2015, 09/01/2009 INFLUENZA VACCINE (#1) 2019 05/25/2015 DTaP,Tdap,and Td Vaccines (3 - Td) 07/15/2027 07/15/2017, 10/23/2012 PNEUMOCOCCAL 0-64 YEARS COMBINED SERIES Aged Out No longer eligible based on patient's age to complete this t opic documented as of this encounter Upcoming EncountersDateTypeSpecialtyCare TeamDescription [facility] 09/10/2019 Dairy Feed Mixing Operator Visit OB Satellites Lab, Ang-Rmchp 10/01/2019 Routine Visit OB Satellites Risk, Bna-Zyodi-Gc/High Health MaintenanceDue DateLast DoneComments PAP SMEAR 05/25/2018 05/25/2015, 09/01/2009 INFLUENZA VACCINE (#1) 2019 05/25/2015 DTaP,Tdap,and Td Vaccines (3 - Td) 07/15/2027 07/15/2017, 10/23/2012 PNEUMOCOCCAL 0-64 YEARS COMBINED SERIES Aged Out No longer eligible based on patient's age to complete this t opic documented as of this encounter Upcoming EncountersDateTypeSpecialtyCare TeamDescription [facility] 09/10/2019 Dairy Feed Mixing Operator Visit OB Satellites Lab, Ang-Rmchp 10/01/2019 Routine Visit OB Satellites Risk, Gkr-Bjiyj-Dl/High Health MaintenanceDue DateLast DoneComments PAP SMEAR 05/25/2018 05/25/2015, 09/01/2009 INFLUENZA VACCINE (#1) 2019 05/25/2015 DTaP,Tdap,and Td Vaccines (3 - Td) 07/15/2027 07/15/2017, 10/23/2012 PNEUMOCOCCAL 0-64 YEARS COMBINED SERIES Aged Out No longer eligible based on patient's age to complete this t opic documented as of this encounter LAB ONLY PAP SMEAR-LIQUID BASED 09/04/[address] [facility] Routine Supervision of high risk , antepartum Expected: 09/04/2019, Expires: 09/04/2020 Upcoming EncountersDateTypeSpecialtyCare TeamDescription 04/2020 [facility] 09/10/2019 Dairy Feed Mixing Operator Visit OB Satellites Lab, Ang-Rmchp 10/01/2019 Routine Visit OB Satellites Risk, Sox-Jxqyz-Wk/High Pending ResultsNameTypePriorityAssociated DiagnosesDate/Time URINE CULTURE LAB Routine Supervision of high risk , antepartum 09/03/2019 4:05 PM BELL PERSON LAB ONLY PAP SMEAR-LIQUID BASED LAB Routine Supervision of high risk , antepartum 09/03/2019 4:05 PM BELL PERSON Scheduled OrdersNameTypePriorityAssociated DiagnosesOrder Sc hedule FLU VACC(), 6+ MONTHS, IM, QUAD (FLUZONE/FLULAVAL/F LUARIX) IMMUNIZATION/INJECTION Routine Flu vaccine need Ordered: 09/03/2019 POCT URINALYSIS W SPECIFIC GRAVITY LAB Routine Supervision of high risk , antepartum 20 Occurrences starting 09/03/2019 until 06/29/2020 URINE CULTURE LAB Routine Supervision of high risk , antepartum Expected: 09/03/2019, Expires: 09/03/2020 Glucose 1 Hour Post Prandial LAB Routine Supervision of high risk , antepartum Expected: 09/10/2019, Expires: 09/03/2020 LAB ONLY PAP SMEAR-LIQUID BASED LAB Routine Supervision of high risk , antepartum Expected: 09/04/2019, Expires: 09/04/2020 Health MaintenanceDue DateLast DoneComments PAP SMEAR 05/25/2018 05/25/2015, 09/01/2009 INFLUENZA VACCINE (#1) 2019 05/25/2015 DTaP,Tdap,and Td Vaccines (3 - Td) 07/15/2027 07/15/2017, 10/23/2012 PNEUMOCOCCAL 0-64 YEARS COMBINED SERIES Aged Out No longer eligible based on patient's age to complete this t opic documented as of this encounter FLU VACC(), 6+ MONTHS, IM, QUAD (FLUZONE/FLULAVAL/F LUARIX) 09/03/2019 [facility] Health IMMUNIZATION/INJECTION Routine Flu vaccine need Ordered: 09/03/2019 URINE CULTURE 09/03/2019 [facility] LAB Routine Supervision of high risk , antepartum 09/03/2019 4:05 PM BELL PERSON LAB ONLY PAP SMEAR-LIQUID BASED 09/03/2019 [facility] LAB Routine Supervision of high risk , antepartum 09/03/2019 4:05 PM BELL PERSON URINE CULTURE 09/03/2019 [facility] LAB Routine Supervision of high risk , antepartum Expected: 09/03/2019, Expires: 09/03/2020 INFLUENZA VACCINE (#1) 2019 [facility] Health PAP SMEAR 05/25/2018 [facility] Social History Social History Date Source Tobacco UseTypesPacks/DayYears UsedDate 12/14/2019 [facility] Former Smoker Cigarettes, Cigars 1 03/25/2006 - 03/25/2014 Smokeless Tobacco: Never Used Alcohol UseDrinks/Weekoz/WeekComments No 0 Standard drinks or equivalent 0.0 EducationAnswerDate Recorded What is the highest level of school you have completed or the highest degree you have received? 12th grade 05/30/2019 Financial Resource StrainAnswerDate Recorded How hard is it for you to pay for the ve ry basics like food, housing, medical care, and heating? Not hard at all 05/30/2019 Food InsecurityAnswerDate Recorded Within the past 12 months, you worried t hat your food would run out before you got money to buy more. Never true 05/30/2019 Within the past 12 months, the food you bought just didn't last and you didn't have money to get more. Never true 05/30/2019 Transportation NeedsAnswerDate Recorded In the past 12 months, has lack of trans portation kept you from medical appointments or from getting medications? No 05/30/2019 In the past 12 months, has lack of trans portation kept you from meetings, work, or getting things needed for daily living? No 05/30/2019 Estimated Date of DeliveryComments Yes 05/05/2020 Based on Est. Date of Conception Sex Assigned at BirthDate Recorded Not on file Job Start DateOccupationIndustry Not on file Not on file Not on file Travel HistoryTravel StartTravel End No recent travel history available. COVID-19 ExposureResponseDate Recorded In the last month, have you been in cont act with someone who was confirmed or suspected to have Coronavirus / COVID-19? No / Unsure 12/18/2019 1:54 PM CDT documented as of this encounter Social History TypeResponse 08/02/2017 [facility] Substance Abuse Use: None. Sexual Sexually active: Yes. Employment/School Highest education level: High school. Alcohol Never Smoking Status Former smoker; Exposure to Tobacco Smoke None; Cigarette Smoking Last 365 Days Yes; Reg Smoking Cessation Counseling No Family History No Data Provided for This Section Advance Directives Order Name Results Value Date Source [employer] Agents on FileNameRelationshipHealthcare Agent RelationshipCommunication [facility] Health Directives Directives Susannah McAda 0 Grandparent Primary healthcare agent [employer] on FileNameRelationshipHealthcare Agent RelationshipCommunication [facility] Health Directives Directives Susannah McAda 0 Grandparent Primary healthcare agent [employer] Agents on FileNameRelationshipHealthcare Agent RelationshipCommunication [facility] Health Directives Directives Susannah McAda 0 Grandparent Primary healthcare agent [employer] Agents on FileNameRelationshipHealthcare Agent RelationshipCommunication [facility] Health Directives Directives Susannah McAda 0 Grandparent Primary healthcare agent [employer] Agents on FileNameRelationshipHealthcare Agent RelationshipCommunication [facility] Health Directives Directives Susannah McAda 0 Grandparent Primary healthcare agent [employer] Agents on FileNameRelationshipHealthcare Agent RelationshipCommunication [facility] Health Directives Directives Susannah McAda 0 Grandparent Primary healthcare agent [employer] Agents on FileNameRelationshipHealthcare Agent RelationshipCommunication [facility] Health Directives Directives Susannah McAda 0 Grandparent Primary healthcare agent [employer] Agents on FileNameRelationshipHealthcare Agent RelationshipCommunication [facility] Health Directives Directives Susannah McAda 0 Grandparent Primary healthcare agent [employer] on FileNameRelationshipHealthcare Agent RelationshipCommunication [facility] Health Directives Directives Susannah McAda 0 Grandparent Primary healthcare agent [employer] on FileNameRelationshipHealthcare Agent RelationshipCommunication [facility] Health Directives Directives Susannah McAda 0 Grandparent Primary healthcare agent [employer] on FileNameRelationshipHealthcare Agent RelationshipCommunication [facility] Health Directives Directives Susannah McAda 0 Grandparent Primary healthcare agent [employer] on FileNameRelationshipHealthcare Agent RelationshipCommunication [facility] Health Directives Directives Susannah McAda 0 Grandparent Primary healthcare agent [employer] on FileNameRelationshipHealthcare Agent RelationshipCommunication [facility] Health Directives Directives Susannah McAda 0 Grandparent Primary healthcare agent [employer] on FileNameRelationshipHealthcare Agent RelationshipCommunication [facility] Health Directives Directives Susannah McAda 0 Grandparent Primary healthcare agent [employer] on FileNameRelationshipHealthcare Agent RelationshipCommunication [facility] Health Directives Directives Susannah McAda 0 Grandparent Primary healthcare agent [employer] on FileNameRelationshipHealthcare Agent RelationshipCommunication [facility] Health Directives Directives Susannah McAda 0 Grandparent Primary healthcare agent [employer] on FileNameRelationshipHealthcare Agent RelationshipCommunication [facility] Health Directives Directives Susannah McAda 0 Grandparent Primary healthcare agent [employer] on FileNameRelationshipHealthcare Agent RelationshipCommunication [facility] Health Directives Directives Susannah McAda 0 Grandparent Primary healthcare agent [employer] on FileNameRelationshipHealthcare Agent RelationshipCommunication [facility] Health Directives Directives Susannah McAda 0 Grandparent Primary healthcare agent [employer] on FileNameRelationshipHealthcare Agent RelationshipCommunication [facility] Health Directives Directives Susannah McAda 0 Grandparent Primary healthcare agent [employer] on FileNameRelationshipHealthcare Agent RelationshipCommunication [facility] Health Directives Directives Susannah McAda 0 Grandparent Primary healthcare agent [employer] on FileNameRelationshipHealthcare Agent RelationshipCommunication [facility] Health Directives Directives Susannah McAda 0 Grandparent Primary healthcare agent [employer] on FileNameRelationshipHealthcare Agent RelationshipCommunication [facility] Health Directives Directives Susannah McAda 0 Grandparent Primary healthcare agent [employer] on FileNameRelationshipHealthcare Agent RelationshipCommunication [facility] Health Directives Directives Susannah McAda 0 Grandparent Primary healthcare agent [employer] on FileNameRelationshipHealthcare Agent RelationshipCommunication [facility] Health Directives Directives Susannah McAda 0 Grandparent Primary healthcare agent [employer] on FileNameRelationshipHealthcare Agent RelationshipCommunication [facility] Health Directives Directives [place] McAda 0 Grandparent Primary healthcare agent [employer] on FileNameRelationshipHealthcare Agent RelationshipCommunication [facility] Health Directives Directives Susannah McAda 0 Grandparent Primary healthcare agent [employer] on FileNameRelationshipHealthcare Agent RelationshipCommunication [facility] Health Directives Directives [place]annah McAda 0 Grandparent Primary healthcare agent [employer] [facility] [employer] on FileNameRelationshipHealthcare Agent RelationshipCommunication [facility] Health Directives Directives Susannah McAda 0 Grandparent Primary healthcare agent [facility] [employer] on FileNameRelationshipHealthcare Agent RelationshipCommunication [facility] Health Directives Directives Susannah McAda 0 Grandparent Primary healthcare agent [employer] [facility] [employer] on FileNameRelationshipHealthcare Agent RelationshipCommunication [facility] Health Directives Directives Susannah McAda 0 Grandparent Primary healthcare agent [employer] [facility] [employer] on FileNameRelationshipHealthcare Agent RelationshipCommunication [facility] Health Directives Directives Susannah McAda 0 Grandparent Primary healthcare agent [employer] on FileNameRelationshipHealthcare Agent RelationshipCommunication [facility] Health Directives Directives [place]annah McAda 0 Grandparent Primary healthcare agent [employer] on FileNameRelationshipHealthcare Agent RelationshipCommunication [facility] Health Directives Directives Susannah McAda 0 Grandparent Primary healthcare agent [employer] on FileNameRelationshipHealthcare Agent RelationshipCommunication [facility] Health Directives Directives Susannah McAda 0 Grandparent Primary healthcare agent [employer] on FileNameRelationshipHealthcare Agent RelationshipCommunication [facility] Health Directives Directives Susannah McAda 0 Grandparent Primary healthcare agent [employer] on FileNameRelationshipHealthcare Agent RelationshipCommunication [facility] Health Directives Directives Susannah McAda 0 Grandparent Primary healthcare agent [employer] on FileNameRelationshipHealthcare Agent RelationshipCommunication [facility] Health Directives Directives Susannah McAda 0 Grandparent Primary healthcare agent [employer] on FileNameRelationshipHealthcare Agent RelationshipCommunication [facility] Health Directives Directives Susannah McAda 0 Grandparent Primary healthcare agent [employer] [facility] [employer] on FileNameRelationshipHealthcare Agent RelationshipCommunication [facility] Health Directives Directives Susannah McAda 0 Grandparent Primary healthcare agent [facility] [employer] on FileNameRelationshipHealthcare Agent RelationshipCommunication [facility] Health Directives Directives [place] McAda 0 Grandparent Primary healthcare agent [employer] on FileNameRelationshipHealthcare Agent RelationshipCommunication [facility] Health Directives Directives Susannah McAda 0 Grandparent Primary healthcare agent [facility] [employer] [facility] [employer] on FileNameRelationshipHealthcare Agent RelationshipCommunication [facility] Health Directives Directives Susannah McAda 0 Grandparent Primary healthcare agent [facility] [employer] [facility] [employer] on FileNameRelationshipHealthcare Agent RelationshipCommunication [facility] Health Directives Directives Susannah McAda 0 Grandparent Primary healthcare agent [facility] [employer] [facility] [employer] on FileNameRelationshipHealthcare Agent RelationshipCommunication [facility] Health Directives Directives Susannah McAda 0 Grandparent Primary healthcare agent [facility] [employer] [facility] [employer] on FileNameRelationshipHealthcare Agent RelationshipCommunication [facility] Health Directives Directives Susannah McAda 0 Grandparent Primary healthcare agent [employer] on FileNameRelationshipHealthcare Agent RelationshipCommunication [facility] Health Directives Directives Susannah McAda 0 Grandparent Primary healthcare agent [facility] [employer] [facility] [employer] on FileNameRelationshipHealthcare Agent RelationshipCommunication [facility] Health Directives Directives Susannah McAda 0 Grandparent Primary healthcare agent [employer] [facility] [employer] on FileNameRelationshipHealthcare Agent RelationshipCommunication [facility] Health Directives Directives Susannah McAda 0 Grandparent Primary healthcare agent [employer] [facility] [employer] on FileNameRelationshipHealthcare Agent RelationshipCommunication [facility] Health Directives Directives Susannah McAda 0 Grandparent Primary healthcare agent [facility] [employer] [facility] [employer] on FileNameRelationshipHealthcare Agent RelationshipCommunication [facility] Health Directives Directives Susannah McAda 0 Grandparent Primary healthcare agent [employer] [facility] [employer] on FileNameRelationshipHealthcare Agent RelationshipCommunication [facility] Health Directives Directives Susannah McAda 0 Grandparent Primary healthcare agent [facility] [employer] [facility] [employer] on FileNameRelationshipHealthcare Agent RelationshipCommunication [facility] Health Directives Directives Susannah McAda 0 Grandparent Primary healthcare agent [facility] [employer] [facility] [employer] on FileNameRelationshipHealthcare Agent RelationshipCommunication [facility] Health Directives Directives Susannah McAda 0 Grandparent Primary healthcare agent [employer] [facility] [employer] on FileNameRelationshipHealthcare Agent RelationshipCommunication [facility] Health Directives Directives Susannah McAda 0 Grandparent Primary healthcare agent [facility] [employer] [facility] [employer] on FileNameRelationshipHealthcare Agent RelationshipCommunication [facility] Health Directives Directives Susannah McAda 0 Grandparent Primary healthcare agent [employer] [facility] [employer] on FileNameRelationshipHealthcare Agent RelationshipCommunication [facility] Health Directives Directives Susannah McAda 0 Grandparent Primary healthcare agent [employer] [facility] [employer] on FileNameRelationshipHealthcare Agent RelationshipCommunication [facility] Health Directives Directives Susannah McAda 0 Grandparent Primary healthcare agent [facility] [employer] [facility] [employer] on FileNameRelationshipHealthcare Agent RelationshipCommunication [facility] Health Directives Directives Susannah McAda 0 Grandparent Primary healthcare agent [facility] [employer] [facility] [employer] on FileNameRelationshipHealthcare Agent RelationshipCommunication [facility] Health Directives Directives Susannah McAda 0 Grandparent Primary healthcare agent [facility] [employer] [facility] [employer] on FileNameRelationshipHealthcare Agent RelationshipCommunication [facility] Health Directives Directives Susannah McAda 0 Grandparent Primary healthcare agent [facility] [employer] [facility] [employer] on FileNameRelationshipHealthcare Agent RelationshipCommunication [facility] Health Directives Directives Susannah McAda 0 Grandparent Primary healthcare agent [employer] [facility] [employer] on FileNameRelationshipHealthcare Agent RelationshipCommunication [facility] Health Directives Directives Susannah McAda 0 Grandparent Primary healthcare agent [employer] [facility] [employer] on FileNameRelationshipHealthcare Agent RelationshipCommunication [facility] Health Directives Directives Susannah McAda 0 Grandparent Primary healthcare agent [employer] [facility] [employer] on FileNameRelationshipHealthcare Agent RelationshipCommunication [facility] Health Directives Directives Susannah McAda 0 Grandparent Primary healthcare agent [employer] [facility] [employer] on FileNameRelationshipHealthcare Agent RelationshipCommunication [facility] Health Directives Directives Susannah McAda 0 Grandparent Primary healthcare agent [employer] [facility] [employer] on FileNameRelationshipHealthcare Agent RelationshipCommunication [facility] Health Directives Directives Susannah McAda 0 Grandparent Primary healthcare agent [employer] on FileNameRelationshipHealthcare Agent RelationshipCommunication [facility] Health Directives Directives Susannah McAda 0 Grandparent Primary healthcare agent [employer] [facility] [employer] on FileNameRelationshipHealthcare Agent RelationshipCommunication [facility] Health Directives Directives Susannah McAda 0 Grandparent Primary healthcare agent [employer] [facility] [employer] on FileNameRelationshipHealthcare Agent RelationshipCommunication [facility] Health Directives Directives Susannah McAda 0 Grandparent Primary healthcare agent [employer] [facility] [employer] on FileNameRelationshipHealthcare Agent RelationshipCommunication [facility] Health Directives Directives Susannah McAda 0 Grandparent Primary healthcare agent [facility] [employer] on FileNameRelationshipHealthcare Agent RelationshipCommunication [facility] Health Directives Directives Susannah McAda 0 Grandparent Primary healthcare agent [employer] [facility] [employer] on FileNameRelationshipHealthcare Agent RelationshipCommunication [facility] Health Directives Directives Susannah McAda 0 Grandparent Primary healthcare agent [facility] [employer] [facility] [employer] on FileNameRelationshipHealthcare Agent RelationshipCommunication [facility] Health Directives Directives Susannah McAda 0 Grandparent Primary healthcare agent [facility] [employer] on FileNameRelationshipHealthcare Agent RelationshipCommunication [facility] Health Directives Directives Susannah McAda 0 Grandparent Primary healthcare agent [facility] [employer] on FileNameRelationshipHealthcare Agent RelationshipCommunication [facility] Health Directives Directives [place]annah McAda 0 Grandparent Primary healthcare agent [facility] [employer] [facility] [employer] on FileNameRelationshipHealthcare Agent RelationshipCommunication [facility] Health Directives Directives Susannah McAda 0 Grandparent Primary healthcare agent [employer] [facility] [employer] on FileNameRelationshipHealthcare Agent RelationshipCommunication [facility] Health Directives Directives [place] McAda 0 Grandparent Primary healthcare agent [employer] [facility] [employer] on FileNameRelationshipHealthcare Agent RelationshipCommunication [facility] Health Directives Directives [place] McAda 0 Grandparent Primary healthcare agent [employer] [facility] [employer] on FileNameRelationshipHealthcare Agent RelationshipCommunication [facility] Health Directives Directives Susannah McAda 0 Grandparent Primary healthcare agent [facility] [employer] [facility] [employer] on FileNameRelationshipHealthcare Agent RelationshipCommunication [facility] Health Directives Directives [place]annah McAda 0 Grandparent Primary healthcare agent [facility] [employer] [facility] [employer] on FileNameRelationshipHealthcare Agent RelationshipCommunication [facility] Health Directives Directives [place]annah McAda 0 Grandparent Primary healthcare agent [facility] [employer] [facility] [employer] on FileNameRelationshipHealthcare Agent RelationshipCommunication [facility] Health Directives Directives Susannah McAda 0 Grandparent Primary healthcare agent [employer] [facility] [employer] on FileNameRelationshipHealthcare Agent RelationshipCommunication [facility] Health Directives Directives [place] McAda 0 Grandparent Primary healthcare agent [facility] [employer] on FileNameRelationshipHealthcare Agent RelationshipCommunication [facility] Health Directives Directives [place]annah McAda 0 Grandparent Primary healthcare agent [facility] [employer] on FileNameRelationshipHealthcare Agent RelationshipCommunication [facility] Health Directives Directives [place]annah McAda 0 Grandparent Primary healthcare agent [facility] [employer] [facility] [employer] on FileNameRelationshipHealthcare Agent RelationshipCommunication [facility] Health Directives Directives [place]annah McAda 0 Grandparent Primary healthcare agent [facility] [employer] on FileNameRelationshipHealthcare Agent RelationshipCommunication [facility] Health Directives Directives [place]annah McAda 0 Grandparent Primary healthcare agent [facility] [employer] [facility] [employer] on FileNameRelationshipHealthcare Agent RelationshipCommunication [facility] Health Directives Directives [place] McAda 0 Grandparent Primary healthcare agent [facility] [employer] on FileNameRelationshipHealthcare Agent RelationshipCommunication [facility] Health Directives Directives [place]annah McAda 0 Grandparent Primary healthcare agent [facility] [employer] on FileNameRelationshipHealthcare Agent RelationshipCommunication [facility] Health Directives Directives [place]annah McAda 0 Grandparent Primary healthcare agent [employer] [facility] [employer] on FileNameRelationshipHealthcare Agent RelationshipCommunication [facility] Health Directives Directives [place]annah McAda 0 Grandparent Primary healthcare agent [facility] [employer] on FileNameRelationshipHealthcare Agent RelationshipCommunication [facility] Health Directives Directives [place]annah McAda 0 Grandparent Primary healthcare agent [facility] [employer] [facility] [employer] on FileNameRelationshipHealthcare Agent RelationshipCommunication [facility] Health Directives Directives [place] McAda 0 Grandparent Primary healthcare agent [employer] [facility] [employer] on FileNameRelationshipHealthcare Agent RelationshipCommunication [facility] Health Directives Directives [place]annah McAda 0 Grandparent Primary healthcare agent [employer] [facility] [employer] on FileNameRelationshipHealthcare Agent RelationshipCommunication [facility] Health Directives Directives [place]annah McAda 0 Grandparent Primary healthcare agent [employer] [facility] [employer] on FileNameRelationshipHealthcare Agent RelationshipCommunication [facility] Health Directives Directives [place] McAda 0 Grandparent Primary healthcare agent [employer] [facility] [employer] on FileNameRelationshipHealthcare Agent RelationshipCommunication [facility] Health Directives Directives [place] McAda 0 Grandparent Primary healthcare agent [employer] [facility] [employer] on FileNameRelationshipHealthcare Agent RelationshipCommunication [facility] Health Directives Directives [place] McAda 0 Grandparent Primary healthcare agent [employer] [facility] [employer] on FileNameRelationshipHealthcare Agent RelationshipCommunication [facility] Health Directives Directives [place] McAda 0 Grandparent Primary healthcare agent [employer] [facility] [employer] on FileNameRelationshipHealthcare Agent RelationshipCommunication [facility] Health Directives Directives Susannah McAda 0 Grandparent Primary healthcare agent [employer] [facility] [employer] on FileNameRelationshipHealthcare Agent RelationshipCommunication [facility] Health Directives Directives Susannah McAda 0 Grandparent Primary healthcare agent [employer] [facility] [employer] on FileNameRelationshipHealthcare Agent RelationshipCommunication [facility] Health Directives Directives [place]annah McAda 0 Grandparent Primary healthcare agent [facility] [employer] [facility] [employer] on FileNameRelationshipHealthcare Agent RelationshipCommunication [facility] Health Directives Directives [place]annah McAda 0 Grandparent Primary healthcare agent [employer] [facility] [employer] on FileNameRelationshipHealthcare Agent RelationshipCommunication [facility] Health Directives Directives [place]annah McAda 0 Grandparent Primary healthcare agent [facility] [employer] [facility] [employer] on FileNameRelationshipHealthcare Agent RelationshipCommunication [facility] Health Directives Directives [place]annah McAda 0 Grandparent Primary healthcare agent [employer] [facility] [employer] on FileNameRelationshipHealthcare Agent RelationshipCommunication [facility] Health Directives Directives [place] McAda 0 Grandparent Primary healthcare agent [employer] [facility] [employer] on FileNameRelationshipHealthcare Agent RelationshipCommunication [facility] Health Directives Directives [place] McAda 0 Grandparent Primary healthcare agent [employer] [facility] [employer] on FileNameRelationshipHealthcare Agent RelationshipCommunication [facility] Health Directives Directives [place]annah McAda 0 Grandparent Primary healthcare agent [employer] [facility] [employer] on FileNameRelationshipHealthcare Agent RelationshipCommunication [facility] Health Directives Directives Susannah McAda 0 Grandparent Primary healthcare agent [employer] [facility] [employer] on FileNameRelationshipHealthcare Agent RelationshipCommunication [facility] Health Directives Directives Susannah McAda 0 Grandparent Primary healthcare agent [employer] [facility] [employer] on FileNameRelationshipHealthcare Agent RelationshipCommunication [facility] Health Directives Directives Susannah McAda 0 Grandparent Primary healthcare agent [employer] [facility] [employer] on FileNameRelationshipHealthcare Agent RelationshipCommunication [facility] Health Directives Directives [place]annah McAda 0 Grandparent Primary healthcare agent [employer] [facility] [employer] on FileNameRelationshipHealthcare Agent RelationshipCommunication [facility] Health Directives Directives Susannah McAda 0 Grandparent Primary healthcare agent [employer] [facility] [employer] on FileNameRelationshipHealthcare Agent RelationshipCommunication [facility] Health Directives Directives Susannah McAda 0 Grandparent Primary healthcare agent [employer] [facility] [employer] on FileNameRelationshipHealthcare Agent RelationshipCommunication [facility] Health Directives Directives [place]annah McAda 0 Grandparent Primary healthcare agent [employer] [facility] [employer] on FileNameRelationshipHealthcare Agent RelationshipCommunication [facility] Health Directives Directives Susannah McAda 0 Grandparent Primary healthcare agent [employer] [facility] [employer] on FileNameRelationshipHealthcare Agent RelationshipCommunication [facility] Health Directives Directives [place] McAda 0 Grandparent Primary healthcare agent [employer] [facility] [employer] on FileNameRelationshipHealthcare Agent RelationshipCommunication [facility] Health Directives Directives [place] McAda 0 Grandparent Primary healthcare agent [employer] [facility] [employer] on FileNameRelationshipHealthcare Agent RelationshipCommunication [facility] Health Directives Directives [place]annah McAda 0 Grandparent Primary healthcare agent [employer] [facility] [employer] on FileNameRelationshipHealthcare Agent RelationshipCommunication [facility] Health Directives Directives [place] McAda 0 Grandparent Primary healthcare agent [employer] on FileNameRelationshipHealthcare Agent RelationshipCommunication [facility] Health Directives Directives Susannah McAda 0 Grandparent Primary healthcare agent [employer] on FileNameRelationshipHealthcare Agent RelationshipCommunication [facility] Health Directives Directives Susannah McAda 0 Grandparent Primary healthcare agent Advance Primary [place] McAda [facility] Health Directives healthcare Grandparent 3 agent Primary healthcare agent Functional Status No Data Provided for This Section
--- OUTSIDE RECORDS SUMMARY | 2020-01-24 12:52 | XMS REPORT | Summary of Care ---
:1990 Author Organization [facility] - [facility] Address [address] [place] [address] Care Team Providers Name Role Phone Casey Insurance Hmo Unavailable Ansley Wood Primary Care Provider Reason for Referral Radiology Services (STAT) Status Reason Specialty Diagnoses / Referred By Referred To Procedures Contact Contact New Request Diagnostic Diagnoses Decreased movements in second trimester, fetus 1 of multiple gestation Suman Sun, Radiology Procedures US PELVIS > 14 WEEKS SAMPLE TAILOR [address] [place] [address]. 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 17 weeks gestation of [address] [facility] [place] [phone] Allergies No Known Allergiesdocumented as of this encounter (statuses as of 11/27/2019) Medications Medication Sig Dispensed Refills Start Date End Date Status multivit-min/ferrous Take by mouth. 0 Active fumarate (MULTI VITAMIN ORAL) proMETHazine 25 mg Take 1 tablet 30 tablet 3 10/22/2019 Active tabletIndications: by mouth every Nausea and vomiting 4 (four) hours during as needed for Nausea and Vomiting (N/V). afsnepfkvbqfr-eagf-zjlrw Take 1 capsule 30 capsule 0 0 [...] as of this encounter (statuses as of 11/27/2019) Active Problems Patient Care Coordination Note 07/03: Patient was discussed at [facility] joshua sung today 1. Pathology team has [...] Cruz from the Psychiatry department. With this leve l she is either not taking the medicatio n or the dose is too low. Patient has an appt on 07/08 in [place] with [facility]. Provider should discuss if patient is taking [...] her into a psych appt. Dr Cruz- [phone]. Cookie Baxter MD #[id number] 1:10 PM 06/14 Patient's case was discussed that M co nference Plan: - check vWD labs [...] Bipolar 1 disorder 05/31/2015 Overview: Started on Lawtey 300 mg BID and Seroqu el 50 mg on 06/25/17 while inpatient. Estimated Date of Delivery Comments Yes 05/05/2020 Based on Est. Date o f Conception documented as of this encounter (statuses as of 11/27/2019) Resolved Problems Problem Noted Date Resolved Date Bradycardia, sinus 06/06/2019 09/03/2019 Dizziness 05/30/2019 09/03/2019 Premature labor 08/30/2017 09/03/2019 36 weeks gestation of 08/30/2017 09/03/19 20 Liveborn by vaginal delivery 08/30/201704/2020 Precipitous delivery, delivered (current hospitalization) 09/03/2019 Vomiting affecting , antepartum 06/25/2017 09/03/2019 History of shoulder dystocia in prior 06/25/2017 06/25/2017 Overview: [facility] as reveals normal vaginal delivery of 7lb [...] Rh negative status during in first trimester, 01/201508/30/2016 antepartum Ear pain, left 05/31/2015 03/25/2017 documented as of this encounter (statuses as of 11/27/2019) Immunizations Name Administration Dates Next Due Influenza [...] for the very basics like Not h mary at all 05/30/2019 food, housing, medical care, [...] of this encounter Last Filed Vital Signs Vital Sign Reading Time Taken Comments Blood Pressure 117/74 11/27/2019 10:10 AM CDT Pulse 80 11/27/2019 10:10 AM CDT Temperature 37.3 C (99.1 F) 11/27/2019 9:15 AM CDT Respiratory Rate 12 11/27/2019 10:10 AM CDT Oxygen Saturation 97% 11/27/2019 10:10 AM CDT Inhaled Oxygen Concentration - - Weight 81.6 kg (180 lb) 11/27/2019 9:15 AM CDT Height - - Body Mass Index 34.01 11/16/2019 8:24 AM CDT documented in this encounter Discharge Instructions Suman Esparza FNP - 11/27/2019DIAGNOSIS 1. Fear of decreased movements 2. NO LIFE-THREATENING FINDINGS ON TODAY'S EXAM. PROCEDURES IN THE ER TODAY: UA, US, emergency medical evaluation MEDICATIONS ADMINISTERED IN THE ER TODAY: none YOUR PRESCRIPTIONS AND [id number] MEDICATION RECOMMENDATIONS: none FOLLOW-UP RECOMMENDATIONS: RECOMMEND FOLLOW-UP WITH A PRIMARY CARE PROVIDER OR SPECIALIST IN 2-5 DAYS, ESPECIALLY IF NO IMPROVEMENT IN SYMPTOMS. MAY FOLLOW-UP WITH A PROVIDER OF YOUR CHOICE, SUCH : 1. A PHYSICIAN OF YOUR CHOICE 2. [facility], . LOCATIONS IN [facility] ER 3. [facility], [address] [place] [address]; [phone] OR, IF YOU WISH TO FOLLOW-UP WITHIN THE [facility], MAY TRY THESE OPTIONS (CLINIC APPOINTMENTS AVAILABLE ON [id number] BASIS): 1. SCHEDULE AN APPOINTMENT ONLINE AT [email or web address] 2. OR CALL THE [facility] AT OR 3. OR CALL YOUR [facility] PHYSICIAN'S OFFICE DIRECTLY IF YOU ARE ALREADY AN ESTABLISHED [facility] PATIENT. RETURN TO ER FOR WORSENING OF SYMPTOMS. AttachmentsThe following attachments cannot be sent through Care Everywhere. : Your Second Trimester Changes (Liberian),Adapting to: Second Trimester (Liberian)documented in this encounter Plan of Treatment Date Type Specialty Care Team Description 12/02/2019 Telemedicine Visit OB Satellites Carlo Garcia MD [address] [facility] [id number] [place] [address] Consults, [facility] Pinky Pn Genetics 12/18/2019 Burning Supervisor Visit Obstetrics & Gynecology Ultrasound, A dc [facility] Health Maintenance Due Date Last Done Comments PAP SMEAR 09/03/2022 09/03/2019, 05/25/2015, 09/01/2009 DTaP,Tdap,and Td Vaccines (3 07/15/2027 07/15/2017, - Td) 10/23/2012 INFLUENZA VACCINE Completed 11/16/2019, 05/25/2015 PNEUMOCOCCAL 0-64 YEARS Aged Out No longe r eligible based COMBINED SERIES on patient's age to complete this to [facility] documented as of this encounter Procedures Procedure Name Priority Date/Time Associated Comments Diagnosis URINALYSIS STAT 11/27/2019 10:14 AM Decreased Resul ts for this CDT movements in second procedur e are in trimester, fetus 1 the resul ts of multiple section. gestation US PELVIS STAT 11/27/2019 10:05 AM Decreased feta l Results for this > 14 WEEKS CDT movements in second procedur e are in trimester, fetus 1 the resul ts of multiple section. gestation CONSENT/REFUSAL FOR Routine 11/27/2019 9:10 AM DIAGNOSIS AND CDT TREATMENT documented in this encounter Results URINALYSIS (11/27/2019 10:14 AM CDT) Pathologist Sig nature APPEARANCE Hazy (A) Clear [facility] COLOR Yellow Yellow [facility] PH 5.0 4.8 - 8.0 [facility] SP GRAVITY 1.013 1.003 - 1.030 [facility] GLU U QUAL Normal Normal [facility] BLOOD Negative Negative [facility] KETONES Negative Negative [facility] PROTEIN Negative Negative [facility] UROBILIN Normal Normal [facility] BILIRUBIN Negative Negative [facility] NITRITE Negative Negative [facility] LEUK ALISSA Negative Negative [facility] RBC/HPF 1 0 - 3 HPF [facility] WBC/HPF 2 0 - 5 HPF [facility] BACTERIA Negative Negative [facility] MUCOUS Slight (A) Negative LPF [facility] SQ EPITH 4 HPF [facility] Specimen Urine - URINE, CLEAN CATCH Performing Organization Address City/State/Zipcode Phone Number [facility] CLIA: [id number], [address] [place], [place] [address] US PELVIS > 14 WEEKS (11/27/2019 10:05 AM CDT) Specimen Impressions Performed At PACS/VR/DOSE 1. No acute or adverse changes. 2. Single, live intrauterine gestation with the size c orrelating well with dates. RL: 1105. Narrative Performed At Ordering Physician: Suman Sun PACS/VR/DOSE History: Decreased movement. Comparison Study: None. Findings: Fetus: Zhou Presentation: Vertex heart rate: Documented with a regular rate of 14 3, 4-chambered heart is visualized BPD: 3.6 cm with an EGA of 17 weeks 1 da y HC: 13.2 cm with an EGA of 16 weeks 6 da ys AC: 10.9 cm with an EGA of 16 weeks 6 da ys FL: 2.2 cm with an EGA of 16 weeks 5 day s Estimated weight: 167 +/- 25 grams which is within the 28th percentile Computed EGA: 17 weeks 0 days with an ED C of 05/06/2020 which correlates well with the LMP Placental location: Fundal, os clear, ce rvical length is 4 cm Amniotic fluid: REMINGTON is 9.1 cm Real-time exam of the intracranial structures, spine, abdominal anatomy and limbs demonstrate no obvious anomali es. Maternal adnexal regions are unremarkable. Remainder nega tive. Procedure Note [facility], Radiant Results Inft User - 2019 10:32 AM CDT Ordering Physician: Suman Sun History: Decreased movement. Comparison Study: None. Findings: Fetus: Zhou Presentation: Vertex heart rate: Documented with a regu lar rate of 143, 4-chambered heart is visualized BPD: 3.6 cm with an EGA of 17 weeks 1 da y HC: 13.2 cm with an EGA of 16 weeks 6 da ys AC: 10.9 cm with an EGA of 16 weeks 6 da ys FL: 2.2 cm with an EGA of 16 weeks 5 day s Estimated weight: 167 +/- 25 grams which is within the 28th percentile Computed EGA: 17 weeks 0 days with an ED C of 05/06/2020 which correlates well with the LMP Placental location: Fundal, os clear, ce rvical length is 4 cm Amniotic fluid: REMINGTON is 9.1 cm Real-time exam of the intracranial structures, spine, abdominal anatomy and limbs demonstrate no obvious anomalies. Maternal adnexal regions are unremarkable. Remainder nega tive. IMPRESSION 1. No acute or adverse changes. 2. Single, live intrauterine gestation w ith the size correlating well with dates. RL: 1105. Performing Organization Address City/State/Zipcode Phone Number PACS/VR/DOSE documented in this encounter Visit Diagnoses Diagnosis Decreased movements in second trim alissa, fetus 1 of multiple gestation - Primary 17 weeks gestation of state, incidental documented in this encounter Insurance Payer Benefit Plan / Subscriber ID Effective Phone Address T e Group Dates [facility] xxxxxxxxx 2019-Prese [address] Medic aid HEALTH CHOICE [place] [id number] MANAGED MEDICAID [place], [place] [phone] documented as of this encounter Advance Directives Name Relationship Healthcare Agent Relationship Co mmunication Susannah Hurtado Grandparent Primary healthcare agent
--- OUTSIDE RECORDS SUMMARY | 2020-01-24 12:52 | XMS REPORT | Summary of Care ---
:1990 Author Organization [facility] - [facility] Address [address] [place] [address] Care Team Providers Name Role Phone Casey Insurance Hmo Unavailable Ansley Wood Primary Care Provider Reason for Visit Reason Comments Results Encounter Details Date Type Department Care Team Description 11/18/2019 Telephone [facility] [place], Carolin pedraza MD Results Healthcare- [address], [address] [place] [address] [place] [address] [phone] Allergies No Known Allergiesdocumented as of this encounter (statuses as of 11/18/2019) Medications Medication Sig Dispensed Refills Start Date End Date Status multivit-min/ferrous Take by mouth. 0 Active fumarate (MULTI VITAMIN ORAL) proMETHazine 25 mg Take 1 tablet 30 tablet 3 10/22/2019 Active tabletIndications: by mouth every Nausea and vomiting 4 (four) hours during as needed for Nausea and Vomiting (N/V). eyeapgltvdnxu-ozzj-iigmu Take 1 capsule 30 capsule 0 0 [...] as of this encounter (statuses as of 11/18/2019) Active Problems Patient Care Coordination Note 07/03: Patient was discussed at [facility] joshua sung today 1. Pathology team has [...] from the Psychiatry department. With this delores l she is either not taking the medicatio n or the dose is too low. Patient has an appt on 07/08 in [place] with [facility]. Provider should discuss if patient is taking [...] her into a psych appt. Dr Cruz- [phone]. Cookie Baxter MD #[id number] 1:10 PM 06/14 Patient's case was discussed that [facility] co nference Plan: - check vWD labs [...] Bipolar 1 disorder 05/31/2015 Overview: Started on [place] 300 mg BID and Seroqu el 50 mg on 06/25/17 while inpatient. Estimated Date of Delivery Comments Yes 05/05/2020 Based on Est. Date o f Conception documented as of this encounter (statuses as of 11/18/2019) Resolved Problems Problem Noted Date Resolved Date Bradycardia, sinus 06/06/2019 09/03/2019 Dizziness 05/30/2019 09/03/2019 Premature labor 08/30/2017 09/03/2019 36 weeks gestation of 08/30/2017 09/03/19 20 Liveborn infant by vaginal delivery 08/30/201704/2020 Precipitous delivery, delivered (current hospitalization) 09/03/2019 Vomiting affecting , antepartum 06/25/2017 09/03/2019 History of shoulder dystocia in prior 06/25/2017 06/25/2017 Overview: Records from [facility] as reveals normal vaginal delivery of 7lb 13oz . Uncomplicated, no dystocia. Polyhydramnios 06/24/2017 06/25/2017 Bloody [...] as of this encounter (statuses as of 11/18/2019) Immunizations Name Administration Dates Next Due Influenza [...] Effective Phone Address T e Group Dates [facility] xxxxxxxxx 2019-Pre [address] Medicai d HEALTH [employer] HEALTH CHOICE sent [id number] - MANAGED MEDICAID [place], [place] [address] [employer] [id number] 2017-Pre [phone] Behavio r[facility] sent [phone] [facility] , MANAGED [address] [place] [address] documented as of this encounter Advance Directives Name Relationship Healthcare Agent Relationship Co mmunication Susannah Genesis Grandparent Primary healthcare agent
--- OUTSIDE RECORDS SUMMARY | 2020-01-24 12:52 | XMS REPORT | Summary of Care ---
:1990 Author [address] [facility] Address [address] [place] [address] Care Team Providers Name Role Phone Casey Insurance Hmo Unavailable Ansley Wood Primary Care Provider Reason for Referral (Routine) Status Reason Specialty Diagnoses / Referred By Referred To Procedures Contact Contact New Request Maternal Diagnoses High-risk , second trimester History of delivery, currently Bailon, Carolin Cam, Medicine Procedures CONSULT MATERNAL MEDICINE ULTRASOUND Preferred Location: Cecelia ARIAS [address] [place] [address] [address] [place] [phone] (Routine) Status Reason Specialty Diagnoses / Referred By Referred To Procedures Contact Contact New Request Maternal Diagnoses Von Willebrand disease Bailon, Carolin Cam, Medicine Procedures CONSULT/REFERRAL MATERNAL MEDICINE FACULTY/FELLOW Preferred location: Cecelia ARIAS [address] [place] [address] [address] [place] [phone] (Routine) Status Reason Specialty Diagnoses / Referred By Referred To Procedures Contact Contact New Request Maternal Diagnoses High-risk , second trimester Bailon, Carolin Cam, Medicine Procedures CONSULT MATERNAL MEDICINE ULTRASOUND Preferred Location: Cecelia ARIAS [address] [place] [address] 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 [address] [facility] [address], [address] [place] [address] Phone: Fax: Encounter Details Date Type Department Care Team Description 11/16/2019 Initial [facility] Women's BailonCarolin am, MD High-risk , second trimester (P rimary Dx); Visit Healthcare- [address] [place] [address] Chest pain , unspecified type; Cecelia MCMILLAN Migraine without status migrainosus, not intractable, unspecified migraine type; [address], [address] Needs flu shot; [address] [place], [place] Von Willebrand disease; [place] [address] Bipolar 1 disorder; [address] History of asthma; [phone] 15 weeks gestat ion of ; (Fax) History of pret erm delivery, currently Allergies No Known Allergiesdocumented as of this encounter (statuses as of 11/23/2019) Medications Medication Sig Dispensed Refills Start Date End Date Status multivit-min/ferrous Take by mouth. 0 Active fumarate (MULTI VITAMIN ORAL) proMETHazine 25 mg Take 1 tablet 30 tablet 3 10/22/2019 Active tabletIndications: by mouth every Nausea and vomiting 4 (four) hours during as needed for Nausea and Vomiting (N/V). [id number]-bbmjj Take 1 capsule 30 capsule 0 0 [...] as of this encounter (statuses as of 11/23/2019) Active Problems Patient Care Coordination Note 07/03: Patient was discussed at [facility] joshua sung today 1. Pathology team has reviewed the yasmin shabazz's labs and do not think that it [...] Patient has an appt on 07/08 in [place] with [facility]. Provider should discuss if patient is [...] her into a psych appt. Dr Cruz- [phone]. Cookie Baxter MD #[id number] 1:10 PM 06/14 Patient's case was discussed that [facility] co nference Plan: - check vWD [...] Bipolar 1 disorder 05/31/2015 Overview: Started on [place] 300 mg BID and Seroqu el 50 mg on 06/25/17 while inpatient. Estimated Date of Delivery Comments Yes 05/05/2020 Based on Est. Date o f Conception documented as of this encounter (statuses as of 11/23/2019) Resolved Problems Problem Noted Date Resolved Date Bradycardia, sinus 06/06/2019 09/03/2019 Dizziness 05/30/2019 09/03/2019 Premature labor 08/30/2017 09/03/2019 36 weeks gestation of 08/30/2017 09/03/19 20 Liveborn infant by vaginal delivery 08/30/201704/2020 Precipitous delivery, delivered (current hospitalization) 09/03/2019 Vomiting affecting , antepartum 06/25/2017 09/03/2019 History of shoulder dystocia in prior 06/25/2017 06/25/2017 Overview: [facility] as reveals normal vaginal delivery of [...] as of this encounter (statuses as of 11/23/2019) Immunizations Name Administration Dates Next Due Influenza [...] Sign Reading Time Taken Comments Blood Pressure 116/74 11/16/2019 8:24 AM CDT Pulse 78 11/16/2019 8:24 AM CDT Temperature 36.8 C (98.2 F) 11/16/2019 8:24 AM CDT Respiratory Rate 18 11/16/2019 8:24 AM CDT Oxygen Saturation - - Inhaled Oxygen Concentration - - Weight 83.9 kg (185 lb) 11/16/2019 8:24 AM CDT Height 154.9 cm (5' 1") 11/16/2019 8:24 AM CDT Body Mass Index 34.96 11/16/2019 8:24 AM CDT documented in this encounter Progress Notes Carolin Bailon MD - 11/16/2019 8:00 AM CDT Chief complaint: Chief Complaint Patient presents with New OB Visit Transfer from [facility] Chest Pain Left Side x's 3 weeks HPI Lauren Polanco is a 29 year old female @ 15w4d here for NOB visit, transfer care from [facility]. Denies cramping or vaginal bleeding. Histories OB History Para Term AB Living 5 3 1 2 1 3 SAB TAB Ectopic Multiple Live Births 1 3 # Outcome Date GA Lbr Kendall/2nd Weight Sex Delivery Anes PTL Lv 5 Current 4 08/30/17 36w3d 7 lb (3.175 kg) F VAGINAL None STEVEN 3 12/04/15 35w4d 5 lb 2 oz (2.325 kg) M NORMAL SPONT EPI Y STEVEN 2 Term 10/23/12 39w0d 7 lb 13 oz (3.544 kg) F NORMAL SPONT EPI N STEVEN 1 SAB 07/2012 12w0d Obstetric Comments Shoulder dystocia Past Medical History: Diagnosis Date Anemia pt states that she does not recall ever being diagnosed Anxiety 2018 of father; resolved. Asthma Childhood Blood dyscrasia Vonwilliesbrands Syndrome Bradycardia Bradycardia History of Chronic endometritis 09/18/2016 Chronic endometritis Depression 2018 of father; resolved. Diabetes Resolved Endometriosis 2018 History of migraine Irregular periods/menstrual cycles 03/25/2017 Menstrual disorder Migraines 12/2016 Rh negative status during in first trimester, antepartum 05/31/2015 STD (sexually transmitted disease) 2015, 2019 Chlamydia/treated Von Willebrand disease diagnosed at age 8 Family History Problem Relation Age of Onset Asthma Mother Depression Mother Diabetes Mother Hypertension Mother Psychiatry Mother bipolar Asthma Sister Asthma Brother Other - see comments Brother Von Williesbran Arthritis Maternal Grandmother Arthritis Maternal Grandfather Cancer Maternal Grandfather prostate Diabetes Maternal Grandfather Other - see comments Son autistic defects NoFHx Breast Cancer NoFHx Colon Cancer NoFHx Ovarian Cancer NoFHx Uterine Cancer NoFHx Genetic NoFHx Heart NoFHx High cholesterol NoFHx Mental retardation NoFHx Neurological NoFHx Osteoporosis NoFHx Family Status Relation Name Status Mo Alive Sis Alive Bro Alive MGMo Alive MGFa Alive Fa Alive Son Alive NoFHx (Not Specified) Past Surgical History: Procedure Laterality Date APPENDECTOMY at age 13 DILATION AND CURETTAGE (SHX) 2011 EYE SURGERY Cyst removal TONSILLECTOMY WITH ADENOIDECTOMY Social History Socioeconomic History Marital status: Single Spouse name: Not on file Number of children: 1 Years of education: Not on file Highest education level: 12th grade Occupational History Occupation: none Social Needs Financial resource strain: Not hard at all Food insecurity: Worry: Never true Inability: Never true Transportation needs: Medical: No Non-medical: No Tobacco Use Smoking status: Former Smoker Packs/day: 1.00 Types: Cigarettes, Cigars Start date: 03/25/2006 Last attempt to quit: 03/25/2014 Years since quittin.6 Smokeless tobacco: Never Used Substance and Sexual Activity Alcohol use: No Alcohol/week: 0.0 standard drinks Drug use: No Sexual activity: Yes Partners: Male control/protection: None Comment: last sexual intercourse Lifestyle Physical activity: Days per week: Not on file Minutes per session: Not on file Stress: Not on file Relationships Social connections: Talks on phone: Not on file Gets together: Not on file Attends christianity service: Not on file Active member of club or organization: Not on file Attends meetings of clubs or organizations: Not on file Relationship status: Not on file Intimate partner violence: Fear of current or ex partner: Not on file Emotionally abused: Not on file Physically abused: Not on file Forced sexual activity: Not on file Other Topics Concern Service Not Asked Blood Transfusions No Caffeine Concern Not Asked Occupational Exposure Not Asked Hobby Hazards Not Asked Sleep Concern Not Asked Stress Concern Not Asked Weight Concern Not Asked Special Diet Not Asked Back Care Not Asked Exercise Not Asked Bike Helmet Not Asked Seat Belt Not Asked Self-Exams Not Asked Social History Narrative No domestic violence or abuse Pt states her christianity preference is Yarsanism Patient lives with children. Social History Substance and Sexual Activity Sexual Activity Yes Partners: Male control/protection: None Comment: last sexual intercourse Labs No new labs Radiology No new radiology. Allergies Lauren has No Known Allergies. Medications Lauren has a current medication list which includes the following prescription(s): kdoikjqjicbyf-chvz-kfhlayzski, promethazine, multivit- min/ferrous fumarate, and prochlorperazine. Review of Systems Constitutional: Negative for chills, fatigue and fever. HENT: Negative for congestion, rhinorrhea, sneezing and sore throat. Eyes: Negative for photophobia and visual disturbance. Respiratory: Positive for shortness of breath. Negative for cough, chest tightness and wheezing. Cardiovascular: Positive for chest pain (with SOB x 3 weeks, intermittent, 1- 2x/day, lasted 1 hr, noassociating factor known). Negative for palpitations. Gastrointestinal: Negative for abdominal distention, abdominal pain, constipation, diarrhea, nausea and vomiting. Genitourinary: Negative for dysuria, urgency, frequency, vaginal bleeding and vaginal discharge. Skin: Negative for rash. Neurological: Positive for headaches (daily, hx of migraine. not relieved with Extra-strength tylenol). Negative for syncope. Hematological: Does not bruise/bleed easily. Nose bleed daily with her headache BP 116/74 (BP Location: Left arm, Patient Position: Sitting, BP CUFF SIZE: Adult Medium) | Pulse 78 | Temp 36.8 C (98.2 F) (Oral) | Resp 18 | Ht 5' 1" (1.549 m) | Wt 185 lb (83.9 kg) | LMP (LMP Unknown) | BMI 34.96 kg/m Pregravid BMI: Could not be calculated Physical Exam Vitals reviewed. Constitutional: She is oriented to person, place, and time. Her body habitus is obese. Cardiovascular: Regular rate and rhythm. Pulmonary/Chest: Normal inspiratory effort. Abdominal: Abdomen is soft. No tenderness present. No hernia palpated or inspected. Neuro/Psychiatric: She has a normal mood and affect. She is oriented to person, place, and time. Skin: Skin normal. No rash present. Assessment/Plan See OB Summary Reviewed patient instructions and provided printed copy. Activity restrictions: As tolerated at 15w4d This visit did not involve counseling and coordination that comprised more than 50% of the visit time. Carolin Bailon MD 11/16/2019 11:33 AM documented in this encounter Plan of Treatment Name Type Priority Associated Diagnoses Order S chedule EKG-12 LEAD ROUTINE HEART STATION Routine Chest pain, unspecif ied Ordered: 11/16/2019 type Health Maintenance Due Date Last Done Comments PAP SMEAR 09/03/2022 09/03/2019, 05/25/2015, 09/01/2009 DTaP,Tdap,and Td Vaccines (3 07/15/2027 07/15/2017, - Td) 10/23/2012 INFLUENZA VACCINE Completed 11/16/2019, 05/25/2015 PNEUMOCOCCAL 0-64 YEARS Aged Out No longe r eligible based COMBINED SERIES on patient's age to complete this to [facility] documented as of this encounter Procedures Procedure Name Priority Date/Time Associated Diagnosis Comme nts FLU VACC ([id number]), Routine 11/16/2019 9:11 AM High-risk pr egnancy, 6+ MONTHS, IM, QUAD CDT second trimester documented in this encounter Results ALPHA FETOPROTEIN-MATERNAL SER (11/16/2019 9:53 AM CDT) AFP-MS 26.0 ng/mL [facility] AFP-MS Interpretation NTD SCREENING RESULTS: [facility] Gestation Age: Weeks 15 days 1 based on __ LMP __ PE _X_ US. Maternal Serum AFP value in ng/mL is 26.0. The corrected AFP MOM is 1.21. NORMAL RANGE is less than 2.5 MOM in NTD screening. The NTD screen result is: _X_ Negative __ Positive with a risk of 1 in Specimen Blood Performing Organization Address City/State/Zipcode Phone Number [facility] CLIA: [id number], [address] [place], [place] [address] [facility] documented in this encounter Visit Diagnoses Diagnosis High-risk , second trimester - Primary Chest pain, unspecified type Migraine without status migrainosus, not intractable, unspecified migraine type Needs flu shot Need for prophylactic vaccination and in oculation against influenza Von Willebrand disease Von Willebrand's disease Bipolar 1 disorder Bipolar I disorder, most recent episode (or current) unspecified History of asthma Personal history of other diseases of re spiratory system 15 weeks gestation of state, incidental History of delivery, currently p regnant with history of pre-term labor documented in this encounter Insurance Payer Benefit Plan / Subscriber ID Effective Phone Address T ype Group [facility] xxxxxxxxx 2019-Yusef ACUÑA Medic aid HEALTH CHOICE [place] [id number] 1 MANAGED MEDICAID [place], [place] [phone] documented as of this encounter Advance Directives Name Relationship Healthcare Agent Relationship Co mmunication Susannah Rollelizzeth Grandparent Primary healthcare agent
--- OUTSIDE RECORDS SUMMARY | 2020-01-24 12:53 | XMS REPORT | Summary of Care ---
:1990 Author Organization [facility] Address [address] [place] [address] Care Team Providers Name Role Phone Casey Insurance Hmo Unavailable Ansley Wood Primary Care Provider Reason for Visit Reason Comments Results Encounter Details Date Type Department Care Team Description 11/23/2019 Telephone [facility] Women's BailonCarolin MD Results Healthcare- [address], [address] [place] [address] [place] [address] [phone] Allergies No Known Allergiesdocumented as of this encounter (statuses as of 11/23/2019) Medications Medication Sig Dispensed Refills Start Date End Date Status multivit-min/ferrous Take by mouth. 0 Active fumarate (MULTI VITAMIN ORAL) proMETHazine 25 mg Take 1 tablet 30 tablet 3 10/22/2019 Active tabletIndications: by mouth every Nausea and vomiting 4 (four) hours during as needed for Nausea and Vomiting (N/V). ontdqmgkjgwqp-ywbc-dwgmn Take 1 capsule 30 capsule 0 0 [...] Coordination Note 07/03: Patient was discussed at [facility] joshua woodshahrzad today 1. Pathology team has reviewed the [...] Patient has an appt on 07/08 in [place] with [facility]. Provider should discuss if patient is [...] dose. The ideal trough is 0.6-1.2. Dr rCuz is available to discuss the patient if questions arise and will work to get her into a psych appt. Dr Cruz- [phone]. Cookie Baxter MD #[id number] 1:10 PM 06/14 Patient's case was discussed that [facility] co nference Plan: - check vWD [...] Bipolar 1 disorder 05/31/2015 Overview: Started on Amaya 300 mg BID and Seroqu el 50 [...] prior 06/25/2017 06/25/2017 Overview: [facility] as reveals normal vaginal delivery of 7lb [...] Effective Phone Address T e Group Dates [facility] x[facility] 2019-Pre [address] Medicai d HEALTH [employer] HEALTH CHOICE sent [id number] - MANAGED [place], [place] [address] BEACON BEACON [id number] 2017-Pre [phone] Behavio ral [facility] sent [phone] [facility] , [address]ED [address] [place] [address] documented as of this encounter Advance Directives Name Relationship Healthcare Agent Relationship Co mmunication Susannah Genesis Grandparent Primary healthcare agent
--- OUTSIDE RECORDS SUMMARY | 2020-01-24 12:53 | XMS REPORT | Summary of Care ---
:1990 Author Organization [facility] Address [address] [place] [address] Care Team Providers Name Role Phone Casey Insurance Hmo Unavailable Ansley Wood Primary Care Provider Reason for Visit Reason Comments Notification wants update on shay inj auth Encounter Details Date Type Department Care Team Description 10/30/2019 [facility], Not ification ([facility] update on shay inj [address] auth) [facility] A [address] [place], [place] [phone] Allergies No Known Allergiesdocumented as of this encounter (statuses as of 10/30/2019) Medications Medication Sig Dispensed Refills Start Date End Date Status multivit-min/ferrous Take by mouth. 0 Active fumarate (MULTI VITAMIN ORAL) proMETHazine 25 mg Take 1 tablet by 30 tablet 3 10/22/2019 Active tabletIndications: mouth every 4 Nausea and vomiting (four) hours as during needed for Nausea and Vomiting (N/V). documented as of this encounter (statuses as of 10/30/2019) Active Problems Patient Care Coordination Note 07/03: Patient was discussed at [facility] joshua sung today 1. Pathology team has reviewed the yasmin nt's labs and do not think that [...] Patient has an appt on 07/08 in [place] with [facility]. Provider should discuss if patient is [...] her into a psych appt. Dr Cruz- [phone]. Cookie Baxter MD #[id number] 1:10 PM 06/14 Patient's case was discussed that [facility] co nference Plan: - check vWD [...] Bipolar 1 disorder 05/31/2015 Overview: Started on [place] 300 mg BID and Seroqu el 50 mg on 06/25/17 while inpatient. Estimated Date of Delivery Comments Yes 05/05/2020 Based on Est. Date o f Conception documented as of this encounter (statuses as of 10/30/2019) Resolved Problems Problem Noted Date Resolved Date Bradycardia, sinus 06/06/2019 09/03/2019 Dizziness 05/30/2019 09/03/2019 Premature labor 08/30/2017 09/03/2019 36 weeks gestation of 08/30/2017 09/03/19 20 Liveborn infant by vaginal delivery 08/30/201704/2020 Precipitous delivery, delivered (current hospitalization) 09/03/2019 Vomiting affecting , antepartum 06/25/2017 09/03/2019 History of shoulder dystocia in prior 06/25/2017 06/25/2017 Overview: [facility] as reveals normal vaginal delivery [...] as of this encounter (statuses as of 10/30/2019) Immunizations Name Administration Dates Next Due Influenza Virus Vaccine Quad IM 3+ YRS 05/25/2015 Rho (d) Immune Globulin 07/15/2017 Tdap 07/15/2017, 10/23/2012 documented as of this encounter Social History Tobacco Use Types Packs/Day Years Used Date Former Smoker Cigarettes, Cigars 1 03/25/20 06 - 03/25/2014 Smokeless Tobacco: Never Used Alcohol [...] filedocumented in this encounter Plan of Treatment Date Type Specialty Care Team Description 11/19/2019 Routine Visit OB [facility] Pillo Stiles, CNP [address] [place], [place] [address] [phone] Health Maintenance Due Date Last Done Comments INFLUENZA VACCINE (#1) 2019 05/25/2015 PAP SMEAR 09/03/2022 09/03/2019, 05/25/2015, 09/01/2009 DTaP,Tdap,and Td Vaccines (3 07/15/2027 07/15/2017, - Td) 10/23/2012 PNEUMOCOCCAL 0-64 YEARS Aged Out No longe r eligible based COMBINED SERIES on patient's age to complete this to pic documented as of this encounter Results Not on filedocumented in this encounter Insurance Payer Benefit Plan / Subscriber ID Effective Phone Address T e Group [facility] xxxxxxxxx 2019-Pre [address] Medicai d HEALTH [employer] HEALTH CHOICE sent [id number] - MANAGED [place], [place] [address] BEACON BEACON [id number] 2017-Pre [phone] Behavio ral [facility]AL BEHAVIORAL sent [phone] [facility] , MANAGED [address] [place] [address] documented as of this encounter Advance Directives Name Relationship Healthcare Agent Relationship Co mmunication Susannah Hurtado Grandparent Primary healthcare agent
--- OUTSIDE RECORDS SUMMARY | 2020-01-24 12:53 | XMS REPORT | Summary of Care ---
:1990 Author Organization [facility] - Health Address [address] [place] [address] Care Team Providers Name Role Phone Casey Insurance Hmo Unavailable Ansley Wood Primary Care Provider Encounter Details Date Type Department Care Team Description 10/28/2019 Orders Only [facility] Doctor Unassigned, No 301 [facility] Name [place] [id number] Allergies No Known Allergiesdocumented as of this encounter (statuses as of 10/29/2019) Medications Medication Sig Dispensed Refills Start Date End Date Status multivit-min/ferrous Take by mouth. 0 Active fumarate (MULTI VITAMIN ORAL) proMETHazine 25 mg Take 1 tablet by 30 tablet 3 10/22/2019 Active tabletIndications: mouth every 4 Nausea and vomiting (four) hours as during needed for Nausea and Vomiting (N/V). documented as of this encounter (statuses as of 10/29/2019) Active Problems Patient Care Coordination Note 07/03: Patient was discussed at [facility] joshua sung today 1. Pathology team [...] Patient has an appt on 07/08 in [place] with [facility]. Provider should discuss if patient is [...] her into a psych appt. Dr Cruz- [phone]. Cookie Baxter MD #[id number] 1:10 PM 06/14 Patient's case was discussed that [facility] co nference Plan: - check vWD [...] 2018 at 36 weeks see chart r evieverito Obesity affecting 03/25/2017 History of asthma 05/31/2015 Von Willebrand disease 05/31/2015 Bipolar 1 disorder 05/31/2015 Overview: Started on [place] 300 mg BID and Seroqu el 50 mg on 06/25/17 while inpatient. Estimated Date of Delivery Comments Yes 05/05/2020 Based on Est. Date o f Conception documented as of this encounter (statuses as of 10/29/2019) Resolved Problems Problem Noted Date Resolved Date Bradycardia, sinus 06/06/2019 09/03/2019 Dizziness 05/30/2019 09/03/2019 Premature labor 08/30/2017 09/03/2019 36 weeks gestation of 08/30/2017 09/03/19 20 Liveborn infant by vaginal delivery 08/30/201704/2020 Precipitous delivery, delivered (current hospitalization) 09/03/2019 Vomiting affecting , antepartum 06/25/2017 09/03/2019 History of shoulder dystocia in prior 06/25/2017 06/25/2017 Overview: [facility] as reveals normal vaginal [...] as of this encounter (statuses as of 10/29/2019) Immunizations Name Administration Dates Next Due Influenza [...] 11/19/2019 Routine Visit [facility]ell[facility] [place], [place] [address], [place] [address] [phone] Health Maintenance Due Date Last Done Comments INFLUENZA VACCINE (#1) 2019 05/25/2015 PAP SMEAR 09/03/2022 09/03/2019, 05/25/2015, 09/01/2009 DTaP,Tdap,and Td Vaccines (3 07/15/2027 07/15/2017, - Td) 10/23/2012 PNEUMOCOCCAL 0-64 YEARS Aged Out No longe r eligible based COMBINED SERIES on patient's age to complete this to pic documented as of this encounter Procedures Procedure Name Priority Date/Time Associated Diagnosis Comme nts MEDICATION CORRESPONDENCE Routine 10/28/2019 12:01 AM ENTERTAINMENT AGENT documented in this encounter Results Not on filedocumented in this encounter Insurance Payer Benefit Plan / Subscriber ID Effective Phone Address T ype Group Dates [facility] xxxxxxxxx 2019-Pre P.O. BOX Medicai d HEALTH CHOICE HEALTH CHOICE sent [id number] - [place], [place] [address] BEACON BEACON [id number] 2017-Pre [phone] Behavio ral BEHAVIORAL BEHAVIORAL sent [phone] [facility] , [address] [place] [address] documented as of this encounter Advance Directives Name Relationship Healthcare Agent Relationship Co mmunication Susannah Hurtado Grandparent Primary healthcare agent
--- OUTSIDE RECORDS SUMMARY | 2020-01-24 12:54 | XMS REPORT | Summary of Care ---
:1990 Author Organization [facility] - Health Address [address] [place] [address] Care Team Providers Name Role Phone Casey Insurance Hmo Unavailable Ansley Wood Primary Care Provider Encounter Details Date Type Department Care Team Description 11/16/2019 Orders Only [facility] Doctor Unassigned, No 301 [facility] [address] 301 [place] [address] Allergies No Known Allergiesdocumented as of this encounter (statuses as of 11/16/2019) Medications Medication Sig Dispensed Refills Start Date End Date Status multivit-min/ferrous Take by mouth. 0 Active fumarate (MULTI VITAMIN ORAL) proMETHazine 25 mg Take 1 tablet 30 tablet 3 10/22/2019 Active tabletIndications: by mouth every Nausea and vomiting 4 (four) hours during as needed for Nausea and Vomiting (N/V). oinehuqybmlgf-cyik-etxdw Take 1 capsule 30 capsule 0 0 [...] as of this encounter (statuses as of 11/16/2019) Active Problems Patient Care Coordination Note 07/03: Patient was discussed at [facility] joshua sung today 1. Pathology team [...] Patient has an appt on 07/08 in [place] with [facility]. Provider should discuss if patient is [...] her into a psych appt. Dr Cruz- [phone]. Cookie Baxter MD #[id number] 1:10 PM 06/14 Patient's case was discussed that [facility] co nference Plan: - check vWD [...] 2018 at 36 weeks see chart r eview Obesity affecting 03/25/2017 History of asthma 05/31/2015 Von Willebrand disease 05/31/2015 Bipolar 1 disorder 05/31/2015 Overview: Started on [place] 300 mg BID and Seroqu el 50 mg on 06/25/17 while inpatient. Estimated Date of Delivery Comments Yes 05/05/2020 Based on Est. Date o f Conception documented as of this encounter (statuses as of 11/16/2019) Resolved Problems Problem Noted Date Resolved Date Bradycardia, sinus 06/06/2019 09/03/2019 Dizziness 05/30/2019 09/03/2019 Premature labor 08/30/2017 09/03/2019 36 weeks gestation of 08/30/2017 09/03/19 20 Liveborn by vaginal delivery 08/30/201704/2020 Precipitous delivery, delivered (current hospitalization) 09/03/2019 Vomiting affecting , antepartum 06/25/2017 09/03/2019 History of shoulder dystocia in prior 06/25/2017 06/25/2017 Overview: [facility] as reveals normal vaginal delivery of 7lb [...] as of this encounter (statuses as of 11/16/2019) Immunizations Name Administration Dates Next Due Influenza [...] Name Priority Date/Time Associated Diagnosis Comme nts ASSIGNMENT OF BENEFITS Routine 11/16/2019 9:34 AM CDT documented in this encounter Results Not on filedocumented in this encounter Insurance Payer Benefit Plan / Subscriber ID Effective Phone Address T ype Group Dates [facility] xxxxxxxxx 2019-Pre P.O. BOX Medicai d HEALTH Agent [employer] HEALTH CHOICE sent [id number] - [place]ED [place], [place] [address] BEACON BEACON [id number] 2017-Pre [phone] Behavio ral BEHAVIORAL BEHAVIORAL sent [phone] [facility] , [address]ED [address] [place] [address] documented as of this encounter Advance Directives Name Relationship Healthcare Agent Relationship Co mmunication Susannah Hurtado Grandparent Primary healthcare agent
--- OUTSIDE RECORDS SUMMARY | 2020-01-24 12:54 | XMS REPORT | Summary of Care ---
:1990 Author Organization [facility] Address [address] [place] [address] Care Team Providers Name Role Phone Casey Insurance Hmo Unavailable Ansley Wood Primary Care Provider Reason for Visit Reason Comments Appointment Encounter Details Date Type Department Care Team Description 11/12/2019 [facility] [address] [address] [place] [address] [address] [facility] [phone] [facility] [place], [place] [address] [phone] Allergies No Known Allergiesdocumented as of this encounter (statuses as of 11/13/2019) Medications Medication Sig Dispensed Refills Start Date End Date Status multivit-min/ferrous Take by mouth. 0 Active fumarate (MULTI VITAMIN ORAL) proMETHazine 25 mg Take 1 tablet by 30 tablet 3 10/22/2019 Active tabletIndications: mouth every 4 Nausea and vomiting (four) hours as during needed for Nausea and Vomiting (N/V). documented as of this encounter (statuses as of 11/13/2019) Active Problems Patient Care Coordination Note 07/03: Patient was discussed at [facility] joshua sung today 1. Pathology team [...] Patient has an appt on 07/08 in [place] with [facility]. Provider should discuss if patient is [...] her into a psych appt. Dr Cruz- [phone]. Cookie Baxter MD #[id number] [id number] 1:10 PM 06/14 Patient's case was discussed that [facility] co nference Plan: - check vWD [...] Bipolar 1 disorder 05/31/2015 Overview: Started on [place] 300 mg BID and Seroqu el 50 mg on 06/25/17 while inpatient. Estimated Date of Delivery Comments Yes 05/05/2020 Based on Est. Date o f Conception documented as of this encounter (statuses as of 11/13/2019) Resolved Problems Problem Noted Date Resolved Date Bradycardia, sinus 06/06/2019 09/03/2019 Dizziness 05/30/2019 09/03/2019 Premature labor 08/30/2017 09/03/2019 36 weeks gestation of 08/30/2017 09/03/19 20 Liveborn by vaginal delivery 08/30/201704/2020 Precipitous delivery, delivered (current hospitalization) 09/03/2019 Vomiting affecting , antepartum 06/25/2017 09/03/2019 History of shoulder dystocia in prior 06/25/2017 06/25/2017 Overview: [facility] as reveals normal vaginal delivery [...] as of this encounter (statuses as of 11/13/2019) Immunizations Name Administration Dates Next Due Influenza [...] Treatment Date Type Specialty Care Team Description 11/16/2019 Initial Obstetrics & Bailon, Carolin Bailey MD Visit Gynecology [address] [place] [address] DR. De Los Santos, [facility] 15 [phone] Health Maintenance Due Date Last Done Comments [...] ID Effective Phone Address T ype Group [facility] xxxxxxxxx 2019-Pre P.O. BOX Medicai d HEALTH CHOICE HEALTH CHOICE sent [id number] - [place]ED [place], [place] [address] BEACON BEACON [id number] 2017-Pre [phone] Behavio ral BEHAVIORAL BEHAVIORAL sent [phone] [facility] , [address] [place] [address] documented as of this encounter Advance Directives Name Relationship Healthcare Agent Relationship Co mmunication Susannah Aquilinolizzeth Grandparent Primary healthcare agent
--- OUTSIDE RECORDS SUMMARY | 2020-01-24 12:54 | XMS REPORT | Summary of Care ---
:1990 Author Organization [facility] Address [address] [place] [address] Care Team Providers Name Role Phone Casey Insurance Hmo Unavailable Ansley Wood Primary Care Provider Reason for Visit Reason Comments LAB Auth/Cert Status Reason Specialty Diagnoses / Procedures Referred By Ansley ontact Referred To Contact Phlebotomy Diagnoses High-risk , second trimester Adc Pob Lab Draw Professional O ffice Building [address] , [address] [place] [address] Phone: Fax: Encounter Details Date Type Department Care Team Description 11/16/2019 Web Site Project Manager Visit [facility] Carolin Bailon MD [address] [facility] [address] [place] [address] High-business risk consultant Office Pob, Adc Lab Main , second Building Phlebotomy trimeste r Lab Professional Office Building [address] [facility] , [address] [place] [address] Allergies No Known Allergiesdocumented as of this encounter (statuses as of 11/16/2019) Medications Medication Sig Dispensed Refills Start Date End Date Status multivit-min/ferrous Take by mouth. 0 Active fumarate (MULTI VITAMIN ORAL) proMETHazine 25 mg Take 1 tablet 30 tablet 3 10/22/2019 Active tabletIndications: by mouth every Nausea and vomiting 4 (four) hours during as needed for Nausea and Vomiting (N/V). nzebjyrvlgzul-imux-uhpxa Take 1 capsule 30 capsule 0 0 [...] Coordination Note 07/03: Patient was discussed at [facility] joshua sung today 1. Pathology team [...] Patient has an appt on 07/08 in [place] with [facility]. Provider should discuss if patient is [...] her into a psych appt. Dr Cruz- [phone]. Cookie Baxter MD #[id number] [id number] 1:10 PM 06/14 Patient's case was discussed that [facility] co nference Plan: - check vWD [...] Bipolar 1 disorder 05/31/2015 Overview: Started on [place] 300 mg BID and Seroqu el 50 [...] Overview: [facility] as reveals normal vaginal delivery of 7lb [...] filedocumented in this encounter Plan of Treatment Name Type Priority Associated Diagnoses Date/Ti me ALPHA LAB Routine High-risk , 020 9:53 AM CDT FETOPROTEIN-MATERNAL second trimester SER Health Maintenance Due Date Last Done Comments INFLUENZA VACCINE (#1) 2019 05/25/2015 PAP SMEAR 09/03/2022 09/03/2019, 05/25/2015, 09/01/2009 DTaP,Tdap,and Td Vaccines (3 07/15/2027 07/15/2017, - Td) 10/23/2012 PNEUMOCOCCAL 0-64 YEARS Aged Out No longe r eligible based COMBINED SERIES on patient's age to complete this to pic documented as of this encounter Results Not on filedocumented in this encounter Visit Diagnoses Diagnosis High-risk , second trimester documented in this encounter Insurance Payer Benefit Plan / Subscriber ID Effective Phone Address [facility] xxxxxxxxx 2019-Prese P.O. BOX Medic aid HEALTH CHOICE - [place] [id number] 1 MANAGED MEDICAID [place], [place] [address] documented as of this encounter Advance Directives Name Relationship Healthcare Agent Relationship Co mmunication Susannah Hurtado Grandparent Primary healthcare agent
--- OUTSIDE RECORDS SUMMARY | 2020-01-24 12:55 | XMS REPORT | Summary of Care ---
:1990 Author Organization [facility] Address [address] [place] [address] Care Team Providers Name Role Phone Casey Insurance Hmo Unavailable Ansley Wood Primary Care Provider Reason for Visit Reason Comments Refill Request Encounter Details Date Type Department Care Team Description 12/19/2019 Refill [facility] Women's Bailno, Carolin pedraza MD Refill Request Healthcare- [address] [facility], [address] [place] [address] [place] [address] [phone] Allergies No Known Allergiesdocumented as of this encounter (statuses as of 12/22/2019) Medications Medication Sig Dispensed Refills Start Date End Date Status multivit-min/ferrous Take by mouth. 0 Active fumarate (MULTI VITAMIN ORAL) proMETHazine 25 mg Take 1 tablet 30 tablet 3 10/22/2019 Active tabletIndications: by mouth every Nausea and vomiting 4 (four) hours during as needed for Nausea and Vomiting (N/V). ijxelysjdrozu-ggnk-ufnjz Take 1 capsule 30 capsule 0 0 Active bital (ESGIC) per by mouth every capsuleIndications: 6 (six) hours Migraine without status as needed migrainosus, not (migraine intractable, unspecified headache). migraine type proCHLORperazine Take 1 tablet 30 tablet 0 11/16/2019 Active (COMPAZINE) 10 mg by mouth every tabletIndications: 6 (six) hours Migraine without status as needed migrainosus, not (migraine intractable, unspecified headache). migraine type magnesium oxide 400 mg Take 1 tablet 7 tablet 0 12/14/2019 Active (241.3 mg magnesium) by mouth daily. tabletIndications: Headache disorder documented as of this encounter (statuses as of 12/22/2019) Active Problems Patient Care Coordination Note 07/03: Patient was discussed at [facility] omarsalma ana lilia today 1. Pathology team has reviewed the [...] Patient has an appt on 07/08 in [place] with [facility]. Provider should discuss if patient is [...] her into a psych appt. Dr Cruz- [phone]. Cookie Baxter MD #[id number] 1:10 PM 06/14 Patient's case was discussed that [facility] co nference Plan: - check vWD [...] Bipolar 1 disorder 05/31/2015 Overview: Started on [place] 300 mg BID and Seroqu el 50 mg on 06/25/17 while inpatient. Estimated Date of Delivery Comments Yes 05/05/2020 Based on Est. Date o f Conception documented as of this encounter (statuses as of 12/22/2019) Resolved Problems Problem Noted Date Resolved Date Bradycardia, sinus 06/06/2019 09/03/2019 Dizziness 05/30/2019 09/03/2019 Premature labor 08/30/2017 09/03/2019 36 weeks gestation of 08/30/2017 09/03/19 20 Liveborn infant by vaginal delivery 08/30/201704/2020 Precipitous delivery, delivered (current hospitalization) 09/03/2019 Vomiting affecting , antepartum 06/25/2017 09/03/2019 History of shoulder dystocia in prior 06/25/2017 06/25/2017 Overview: [facility] as reveals normal vaginal delivery of [...] as of this encounter (statuses as of 12/22/2019) Immunizations Name Administration Dates Next Due Influenza [...] Travel End No recent travel history available. COVID-19 Exposure Response Date Recorded In the last month, have you been in contact with No / Unsure 12/18/2019 1:54 PM CDT someone who was confirmed or suspected to have Coronavirus / COVID-19? documented as of this encounter Last Filed Vital Signs Not on filedocumented in this encounter Plan of Treatment Date Type Specialty Care Team Description 12/24/2019 Medical Assistant Float Visit Maternal Medicine Zofia Davies MD [address] [place], [place] [address] 12/30/2019 Medical Assistant Float Visit Maternal Medicine Zofia Davies MD [address] [place], [place] [address] 01/05/2020 Medical Assistant Float Visit Maternal Medicine Zofia Davies MD [address] [place], [place] [address] Health Maintenance Due Date Last Done Comments PAP SMEAR 09/03/2022 09/03/2019, 05/25/2015, 09/01/2009 DTaP,Tdap,and Td Vaccines (3 07/15/2027 07/15/2017, - Td) 10/23/2012 INFLUENZA VACCINE Completed 11/16/2019, 05/25/2015 PNEUMOCOCCAL 0-64 YEARS Aged Out No longe r eligible based COMBINED SERIES on patient's age to complete this to pic documented as of this encounter Results Not on filedocumented in this encounter Visit Diagnoses Diagnosis Migraine without status migrainosus, not intractable, unspecified migraine type documented in this encounter Insurance Payer Benefit Plan / Subscriber ID Effective Phone Address T yp Group [facility] xxxxxxxxx 2019-Pre P.O. BOX Medicai d HEALTH CHOICE HEALTH CHOICE sent [id number] - [place]GED [place], [place] [address] BEACON BEACON [id number] 2017-Pre [phone] Behavio ral BEHAVIORAL BEHAVIORAL sent [phone] [facility] , [address] [place] [address] documented as of this encounter Advance Directives Name Relationship Healthcare Agent Relationship Co mmunication Susannah Hurtado Grandparent Primary healthcare agent
--- OUTSIDE RECORDS SUMMARY | 2020-01-24 12:55 | XMS REPORT | Summary of Care ---
:1990 Author Organization [facility] Address [address] [place] [address] Care Team Providers Name Role Phone Casey Insurance Hmo Unavailable Ansley Wood Primary Care Provider Reason for Visit Reason Comments Refill Request Encounter Details Date Type Department Care Team Description 12/17/2019 Refill [facility] Women's Bailon, Carolin pedraza MD Refill Request Healthcare- [address] [facility], [address] [place] [address] [place] [address] [phone] Allergies No Known Allergiesdocumented as of this encounter (statuses as of 12/22/2019) Medications Medication Sig Dispensed Refills Start Date End Date Status multivit-min/ferrous Take by mouth. 0 Active fumarate (MULTI VITAMIN ORAL) proMETHazine 25 mg Take 1 tablet 30 tablet 3 10/22/2019 Active tabletIndications: by mouth every Nausea and vomiting 4 (four) hours during as needed for Nausea and Vomiting (N/V). mczkeadjtwvbs-midl-ckfrg Take 1 capsule 30 capsule 0 0 [...] Coordination Note 07/03: Patient was discussed at [facility] omarsalma ana lilia today 1. Pathology team [...] Patient has an appt on 07/08 in [place] with [facility]. Provider should discuss if patient is [...] her into a psych appt. Dr Cruz- [phone]. Cookie Baxter MD #[id number] 1:10 PM 06/14 Patient's case was discussed that [facility] co nference Plan: - check vWD [...] Bipolar 1 disorder 05/31/2015 Overview: Started on [place] 300 mg BID and Seroqu el 50 [...] 06/25/2017 Overview: [facility] as reveals normal vaginal delivery [...] Date Type Specialty Care Team Description 12/24/2019 Pad Making Machine Operator Visit Maternal Medicine Zofia Davies MD [address] [place], [place] [address] 12/30/2019 Pad Making Machine Operator Visit Maternal Medicine Zofia Davies MD [address] [place], [place] [address] 01/05/2020 Pad Making Machine Operator Visit Maternal Medicine Zofia Davies MD [address] [place], [place] [address] Health Maintenance Due Date [...] ID Effective Phone Address T yp Group [facility] xxxxxxxxx 2019-Pre P[address]O. BOX Medicai d HEALTH CHOICE HEALTH CHOICE sent [id number] - MA[place]GED [place], [place] [address] BEACON BEACON [id number] 2017-Pre [phone] Behavio ral BEHAVIORAL BEHAVIORAL sent [phone] [facility] , [address] [place] [address] documented as of this encounter Advance Directives Name Relationship Healthcare Agent Relationship Co mmunication Susannah Hurtado Grandparent Primary healthcare agent
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
--- OUTSIDE RECORDS SUMMARY | 2020-01-24 12:56 | XMS REPORT | Summary of Care ---
:1990 Author Organization [facility] Address [address] [place] [address] Care Team Providers Name Role Phone Casey Insurance Hmo Unavailable Ansley Wood Primary Care Provider Encounter Details Date Type Department Care Team Description 12/22/2019 [facility] [address] [place] [address] [address] [facility] [phone] JAD[place], [place] [address] [phone] Allergies No Known Allergiesdocumented as of this encounter (statuses as of 12/22/2019) Medications Medication Sig Dispensed Refills Start Date End Date Status multivit-min/ferrous Take by mouth. 0 Active fumarate (MULTI VITAMIN ORAL) proMETHazine 25 mg Take 1 tablet 30 tablet 3 10/22/2019 Active tabletIndications: by mouth every Nausea and vomiting 4 (four) hours during as needed for Nausea and Vomiting (N/V). pshiokombyvqa-xvnm-cgmvo Take 1 capsule 30 capsule 0 0 [...] Coordination Note 07/03: Patient was discussed at [facility] joshua sung today 1. Pathology team [...] Patient has an appt on 07/08 in [place] with [facility]. Provider should discuss if patient is [...] her into a psych appt. Dr Cruz- [phone]. Cookie Baxter MD #[id number] 1:10 PM 06/14 Patient's case was discussed that [facility] co nference Plan: - check vWD [...] Bipolar 1 disorder 05/31/2015 Overview: Started on Aurelia 300 mg BID and Seroqu el 50 [...] prior 06/25/2017 06/25/2017 Overview: [facility] from [facility] as reveals normal vaginal delivery of 7lb [...] Date Type Specialty Care Team Description 12/24/2019 Extension Associate Visit Maternal Medicine Zofia Davies MD [address] [place], [place] [address] 12/30/2019 Extension Associate Visit Maternal Medicine Zofia Davies MD [address] [place], [place] [address] 01/05/2020 Extension Associate Visit Maternal Medicine Zofia Davies MD [address] [place], [place] [address] Health Maintenance Due Date [...] ID Effective Phone Address T e Group [facility] xxxxxxxxx 2019-Pre [address] Medicai d HEALTH CHOICE HEALTH CHOICE sent [id number] - MANAGED [place], [place] [address] BEACON BEACON [id number] 2017-Pre [phone] Behavio ral [facility] sent [phone] [facility] , [address] [place] [address] documented as of this encounter Advance Directives Name Relationship Healthcare Agent Relationship Co mmunication Susannah Hurtado Grandparent Primary healthcare agent
--- OUTSIDE RECORDS SUMMARY | 2020-01-24 12:57 | XMS REPORT | Summary of Care ---
:1990 Author Organization [facility] Address [address] [place] [address] Care Team Providers Name Role Phone Casey Insurance Hmo Unavailable Ansley Wood Primary Care Provider Reason for Visit Reason Comments TEST RESULTS [facility] Negative Encounter Details Date Type Department Care Team Description 12/08/2019 Telephone [facility] Women's [place]Carolin MD TEST RESULTS ([facility]- [address] Negative) [address] [place] [address] [address] [place], [place] [id number] [phone] Allergies No Known Allergiesdocumented as of this encounter (statuses as of 12/08/2019) Medications Medication Sig Dispensed Refills Start Date End Date Status multivit-min/ferrous Take by mouth. 0 Active fumarate (MULTI VITAMIN ORAL) proMETHazine 25 mg Take 1 tablet 30 tablet 3 10/22/2019 Active tabletIndications: by mouth every Nausea and vomiting 4 (four) hours during as needed for Nausea and Vomiting (N/V). uuutrvpiaypcg-tidn-tvlen Take 1 capsule 30 capsule 0 0 [...] as of this encounter (statuses as of 12/08/2019) Active Problems Patient Care Coordination Note 07/03: Patient was discussed at [facility] omarsalma ana lilia today 1. Pathology [...] Patient has an appt on 07/08 in [place] with [facility]. Provider should discuss if patient is [...] her into a psych appt. Dr Cruz- [phone]. Cookie Baxter MD #[id number] 1:10 PM 06/14 Patient's case was discussed that [facility] co nference Plan: - check vWD [...] Bipolar 1 disorder 05/31/2015 Overview: Started on [place] 300 mg BID and Seroqu el 50 mg on 06/25/17 while inpatient. Estimated Date of Delivery Comments Yes 05/05/2020 Based on Est. Date o f Conception documented as of this encounter (statuses as of 12/08/2019) Resolved Problems Problem Noted Date Resolved Date Bradycardia, sinus 06/06/2019 09/03/2019 Dizziness 05/30/2019 09/03/2019 Premature labor 08/30/2017 09/03/2019 36 weeks gestation of 08/30/2017 09/03/19 20 Liveborn infant by vaginal delivery 08/30/201704/2020 Precipitous delivery, delivered (current hospitalization) 09/03/2019 Vomiting affecting , antepartum 06/25/2017 09/03/2019 History of shoulder dystocia in prior 06/25/2017 06/25/2017 Overview: [facility] as reveals normal vaginal delivery of [...] Rh negative status during in first trimester, 100 01/201508/30/2016 antepartum Ear pain, left 05/31/2015 03/25/2017 documented as of this encounter (statuses as of 12/08/2019) Immunizations Name Administration Dates Next Due Influenza [...] Treatment Date Type Specialty Care Team Description 12/09/2019 Vp Human [facility] Visit Maternal Medicine Zofia Davies MD [address] [place], [place] [address] 12/18/2019 Vp Human Resources Visit Obstetrics & Gynecology Ultrasound, A dc Mfm 12/24/2019 [facility] Visit Maternal Medicine Zofia Davies MD [address] [place], [place] [address] 12/30/2019 Vp Human Resources Visit Maternal Medicine Zofia Davies MD [address] [place], [place] [address] 01/05/2020 Vp Human Resources Visit Maternal Medicine Zofia Davies MD [address] [place], [place] [address] Health Maintenance Due Date [...] / Subscriber ID Effective Phone Address T [facility] xxxxxxxxx 2019-Pre [address]. [address]OX Medicai d HEALTH CHOICE HEALTH CHOICE sent [phone] - MANAGED [place], [place] [address] BEACON BEACON [id number] 2017-Pre [phone] Behavio ral BEHAVIORAL BEHAVIORAL sent [phone] [facility] , [address]ED [address] [place] [address] documented as of this encounter Advance Directives Name Relationship Healthcare Agent Relationship Co mmunication Susannah Rollelizzeth Grandparent Primary healthcare agent
--- OUTSIDE RECORDS SUMMARY | 2020-01-24 12:57 | XMS REPORT | Summary of Care ---
:1990 Author Organization [facility] - [facility] Address [address] [place] [address] Care Team Providers Name Role Phone Casey Insurance Hmo Unavailable Ansley Wood Primary Care Provider Reason for Visit Reason Comments Chest Pain Auth/Cert Status Reason Specialty Diagnoses / Referred By Referred To Procedures Contact Contact Emergency Medicine Diagnoses 20 WKS PREG,CHEST PAIN,SOB [facility] Emergency Dept [address] [facility] [place] [address] Fax: Encounter Details Date Type Department Care Team Description 12/14/2019 Emergency ADC-Emergency Baljit Lares S, Chest evan n, unspecified type (Primary Dx); Department MD Headache disorder; [address] [place] [address] [address] [facility] [place] [address] [id number] [place], [place] [id number] Allergies No Known Allergiesdocumented as of this encounter (statuses as of 12/14/2019) Medications Medication Sig Dispensed Refills Start Date End Date Status multivit-min/ferrous Take by mouth. 0 Active fumarate (MULTI VITAMIN ORAL) proMETHazine 25 mg Take 1 tablet 30 tablet 3 10/22/2019 Active tabletIndications: by mouth every Nausea and vomiting 4 (four) hours during as needed for Nausea and Vomiting (N/V). wcssuayisbuyu-hwuu-mfkdo Take 1 capsule 30 capsule 0 0 [...] as of this encounter (statuses as of 12/14/2019) Active Problems Patient Care Coordination Note 07/03: Patient was discussed at [facility] joshua sung today 1. Pathology team has reviewed the edmunde nt's labs and do not think that [...] Cruz from the Psychiatry department. With this tavone l she is either not taking the medicatio n or the dose is too low. Patient has an appt on 07/08 in [place] with [facility]. Provider should discuss if patient is [...] her into a psych appt. Dr Cruz- [phone]. Cookie Baxter MD #[id number] 1:10 PM 06/14 Patient's case was discussed that [facility] co nference Plan: - check vWD [...] Bipolar 1 disorder 05/31/2015 Overview: Started on [place] 300 mg BID and Seroqu el 50 mg on 06/25/17 while inpatient. Estimated Date of Delivery Comments Yes 05/05/2020 Based on Est. Date o f Conception documented as of this encounter (statuses as of 12/14/2019) Resolved Problems Problem Noted Date Resolved Date Bradycardia, sinus 06/06/2019 09/03/2019 Dizziness 05/30/2019 09/03/2019 Premature labor 08/30/2017 09/03/2019 36 weeks gestation of 08/30/2017 09/03/19 20 Liveborn infant by vaginal delivery 08/30/201704/2020 Precipitous delivery, delivered (current hospitalization) 09/03/2019 Vomiting affecting , antepartum 06/25/2017 09/03/2019 History of shoulder dystocia in prior 06/25/2017 06/25/2017 Overview: [facility] from [facility] as reveals normal vaginal delivery of 7lb [...] as of this encounter (statuses as of 12/14/2019) Immunizations Name Administration Dates Next Due Influenza [...] Sign Reading Time Taken Comments Blood Pressure 120/66 12/14/2019 9:00 PM CDT Pulse 65 12/14/2019 9:00 PM CDT Temperature 37.3 C (99.2 F) 12/14/2019 4:23 PM CDT Respiratory Rate 17 12/14/2019 9:00 PM CDT Oxygen Saturation 99% 12/14/2019 9:00 PM CDT Inhaled Oxygen Concentration - - Weight 77.1 kg (170 lb) 12/14/2019 4:23 PM CDT Height - - Body Mass Index 32.12 11/16/2019 8:24 AM CDT documented in this encounter Discharge Instructions Baljit Seymour MD - 12/14/2019 DIAGNOSIS Diagnoses that have been ruled out: None Diagnoses that are still under consideration: None Final diagnoses: Chest pain, unspecified type Headache disorder Second trimester NO LIFE-THREATENING FINDINGS ON TODAY'S EXAM. PROCEDURES IN THE ER TODAY: Orders Placed This Encounter Procedures TROPONIN I aPTT PROTHROMBIN TIME / INR COMP. METABOLIC PANEL (28781) LIPASE, SERUM CBC WITH DIFF CORONAVIRUS COVID-19 TESTING CBC WITH DIFFERENTIAL URINALYSIS MEDICATIONS ADMINISTERED IN THE ER TODAY AND DISCHARGE MEDICATIONS: Orders Placed This Encounter Medications magnesium oxide (MAG-OX 400) tablet 400 mg HYDROcodone-acetaminophen (NORCO 5) 5-325 mg tablet 1 tablet magnesium oxide 400 mg (241.3 mg magnesium) tablet FOLLOW-UP RECOMMENDATIONS: RECOMMEND FOLLOW-UP WITH YOUR FOOD SERVICE ATTENDANT IN AM DISCUSSED. CONTINUE ALL CURRENT HOME MEDICATIONS PRESCRIBED BY YOUR DOCTOR RETURN TO ER FOR WORSENING OF SYMPTOMS documented in this encounter Plan of Treatment Date Type Specialty Care Team Description 12/18/2019 Political Anthropologist Visit Obstetrics & Gynecology Marycarmen Almonte dc 12/24/2019 Political Anthropologist Visit Maternal Medicine Zofia Davies MD [address] [place] [address] 12/30/2019 Political Anthropologist Visit Maternal Medicine Zofia Davies MD [address] [place] [address] 555 01/05/2020 Political Anthropologist Visit Maternal Medicine Zofia Davies MD [address] [place] [address] Health Maintenance Due Date Last Done Comments PAP SMEAR 09/03/2022 09/03/2019, 05/25/2015, 09/01/2009 DTaP,Tdap,and Td Vaccines (3 07/15/2027 07/15/2017, - Td) 10/23/2012 INFLUENZA VACCINE Completed 11/16/2019, 05/25/2015 PNEUMOCOCCAL 0-64 YEARS Aged Out No longe r eligible based COMBINED SERIES on patient's age to complete this to pic documented as of this encounter Procedures Procedure Name Priority Date/Time Associated Diagnosis Comme nts URINALYSIS STAT 12/14/2019 8:02 Chest pain, Results for this PM CDT unspecified type procedure a re in the results section. CORONAVIRUS COVID-19 STAT 12/14/2019 6:44 Chest pain, Res ults for this TESTING PM CDT unspecified type procedure a re in the results section. CBC WITH DIFFERENTIAL STAT 12/14/2019 6:44 Chest pain, Re sults for this PM CDT unspecified type procedure a re in the results section. ACTIVATED PARTIAL STAT 12/14/2019 6:44 Chest pain, Result s for this THRMPLAS BENJAMIN PM CDT unspecified type procedure a re in the results section. PROTHROMBIN TIME / STAT 12/14/2019 6:44 Chest pain, Resul ts for this INR PM CDT unspecified type procedure a re in the results section. CBC WITH DIFFERENTIAL Routine 12/14/2019 6:44 Chest pain, Re sults for this PM CDT unspecified type procedure a re in the results section. COMP. METABOLIC PANEL STAT 12/14/2019 6:44 Chest pain, Re sults for this ([id number]) PM CDT unspecified type procedure a re in the results section. TROPONIN I STAT 12/14/2019 6:44 Chest pain, Results for this PM CDT unspecified type procedure a re in the results section. LIPASE STAT 12/14/2019 6:44 Chest pain, Results for this PM CDT unspecified type procedure a re in the results section. NOTICE OF PRIVACY Routine 12/14/2019 4:11 PRACTICES PM CDT CONSENT/REFUSAL FOR Routine 12/14/2019 4:08 DIAGNOSIS AND PM CDT TREATMENT documented in this encounter Results URINALYSIS (12/14/2019 8:02 PM CDT) Pathologist Sig nature APPEARANCE Hazy (A) Clear [facility] COLOR Yellow Yellow [facility] PH 5.0 4.8 - 8.0 [facility] SP GRAVITY 1.026 1.003 - 1.030 [facility] GLU U QUAL Normal Normal [facility] BLOOD Negative Negative [facility] KETONES Negative Negative [facility] PROTEIN Negative Negative [facility] UROBILIN Normal Normal [facility] BILIRUBIN Negative Negative [facility] NITRITE Negative Negative [facility] LEUK SELENA Negative Negative [facility] RBC/HPF 2 0 - 3 HPF [facility] WBC/HPF 1 0 - 5 HPF [facility] BACTERIA Few (A) Negative [facility] MUCOUS Slight (A) Negative LPF [facility] SQ EPITH 9 HPF [facility] Specimen Urine - URINE, CLEAN CATCH Performing Organization Address City/State/Zipcode Phone Number [facility] CLIA: [id number], [address] [place], [place] [address] CBC WITH DIFFERENTIAL (12/14/2019 6:44 PM CDT) Pathologist Sig nature WBC 15.92 (H) 4.30 - 11.10 [facility] 10*3/L [facility] RBC 4.10 3.93 - 5.25 [facility] 10*6/L [facility] HGB 12.7 11.6 - 15.0 [facility] g/dL [facility] HCT 36.3 35.7 - 45.2 % [facility] MCV 88.5 80.6 - 95.5 fL [facility] MCH 31.0 25.9 - 32.8 pg [facility] MCHC 35.0 31.6 - 35.1 [facility] g/dL [facility] RDW-SD 42.7 39.0 - 49.9 fL [facility] RDW-CV 13.2 12.0 - 15.5 % [facility] PLT 255 166 - 358 [facility] 10*3/L [facility] MPV 11.2 9.5 - 12.9 fL [facility] NRBC/100 WBC 0.0 0.0 - 10.0 /100 [facility] WBCs [facility] NRBC x10^3 <0.01 10*3/L [facility] GRAN MAT (NEUT) % 76.5 % [facility] IMM GRAN % 0.90 % [facility] LYMPH % 14.3 % [facility] MONO % 6.3 % [facility] EOS % 1.7 % [facility] BASO % 0.3 % [facility] GRAN MAT x10^3(ANC) 12.18 (H) 1.88 - 7.09 [facility] 10*3/uL [facility] IMM GRAN x10^3 0.14 (H) 0.00 - 0.06 [facility] 10*3/uL [facility] LYMPH x10^3 2.28 1.32 - 3.29 [facility] 10*3/uL [facility] MONO x10^3 1.01 (H) 0.33 - 0.92 [facility] 10*3/uL [facility] EOS x10^3 0.27 0.03 - 0.39 [facility] 10*3/uL [facility] BASO x10^3 0.04 0.01 - 0.07 [facility] 10*3/uL [facility] Specimen Blood - VENOUS Performing Organization Address City/State/Zipcode Phone Number [facility] CLIA: [id number], [address] [place], [place] [address] CORONAVIRUS COVID-19 TESTING (12/14/2019 6:44 PM CDT) Pathologist Sig nature SARS-CoV-2 Not Detected Not Detected [facility] Specimen Swab - NASOPHARYNGEAL SWAB Narrative Performed At [facility] COVID-19 Assay is an isothermal nucleic [facility] acid amplification test intended for the qualitative detection of nucleic acid from SARS-CoV-2 viral RNA in nasopharyngeal (HINGING MACHINE OPERATOR) specimens. It is used under Emergency Use Authorization (EUA) by FDA. The limit of detection (LOD) of the assay is 125 Genome Equivalents/mL. A positive result is indicative of the presence of SARS-CoV-2 RNA. Clinical correlation with patient history and other diagnostic information is necessary to determine patient infection status. A negative (Not Detected) result does not preclude SARS-CoV-2 infection. Clinical correlation with patient history and other diagnostic information should be used in patient management decisions. Invalid: Please collect a new specimen for repeat patient testing if clinically indicated. Performing Organization Address City/[facility]/Zipcode Phone Number [facility] CLIA: [id number], [address] [place] [address] LIPASE, SERUM (12/14/2019 6:44 PM CDT) Pathologist Sig nature LIPASE 47 0 - 220 U/L [facility] Specimen Blood - VENOUS Performing Organization Address City/[facility]/Zipcode Phone Number [facility] CLIA: [id number], [address] [place] [address] [address] [facility] COMP. METABOLIC PANEL ([id number]) (12/14/2019 6:44 PM CDT) NA 135 135 - 145 [facility] mmol/L [facility] K 3.8 3.5 - 5.0 [facility] mmol/L [facility] CL 105 98 - 108 mmol/L [facility] CO2 TOTAL 23 23 - 31 mmol/L [facility] AGAP 7 2 - 16 [facility] BUN 10 7 - 23 mg/dL [facility] GLUCOSE 86 70 - 110 mg/dL [facility] CREATININE 0.39 (L) 0.50 - 1.04 [facility] mg/dL [facility] TOTAL BILI 0.1 0.1 - 1.1 mg/dL [facility] CALCIUM 9.0 8.6 - 10.6 [facility] mg/dL [facility] T PROTEIN 7.4 6.3 - 8.2 g/dL [facility] ALBUMIN 4.0 3.5 - 5.0 g/dL [facility] ALK PHOS 71 34 - 122 U/L [facility] ALTv 20 5 - 35 U/L [facility] AST(SGOT) 22 13 - 40 U/L [facility] eGFR Calculation 195.7 mL/min/1.73m2 [facility] (Non-[facility] LABORATORY Lithuanian) eGFR Calculation 237.2 mL/min/1.73m2 [facility] () [facility] Specimen Blood - VENOUS Narrative Performed At Association of Glomerular Filtration Rate (GFR) [facility] and Staging of Kidney Disease* + + +- + | GFR (mL/min/1.73 m2) | With Kidney Damage | Without Kidney Damage + + +- + | >90 | Stage one | Normal + + +- + | 60-89 | Stage two | Decreased GFR + + +- + | 30-59 | Stage three | Stage three + + +- + | 15-29 | Stage four | Stage four + + +- + | <15 (or dialysis) | Stage five | Stage five + + +- + *Each stage assumes the associated GFR level has been in effect for at least three months. Stages 1 to 5, with or without kidney disease, indicate chronic kidney disease. Notes: Determination of stages one and two (with eGFR >59mL/min/1.73 m2) requires estimation of kidney damage for at least three months as defined by structural or functional abnormalities of the kidney, manifested by either: Pathological abnormalities or Markers of kidney damage (including abnormalities in the composition of the blood or urine or abnormalities in imaging tests). Performing Organization Address City/State/Zipcode Phone Number [facility] CLIA: [id number], [address] [place], [place] [address] PROTHROMBIN TIME / INR (12/14/2019 6:44 PM CDT) PROTIME PATIENT 12.4 12.0 - 14.7 [facility] LABORATORY INR 1.0Comment: Normal [facility] INR <1.1; Warfarin [facility] Therapeutic range LABORATORY 2.0 to 3.0 or 2.5 to 3.5, depending upon the indications. Specimen Blood - VENOUS Performing Organization Address [facility]/Zipcode Phone Number [facility] CLIA: [id number], [address] [place], [place] [address] aPTT (12/14/2019 6:44 PM CDT) Pathologist Sig nature APTT Patient 28 23 - 38 Seconds [facility] Specimen Blood - VENOUS Narrative Performed At The [facility] patient population mean normal value [facility] for aPTT is 30 seconds. Performing Organization Address [facility] Phone Number [facility] CLIA: [id number], [address] [place] [address] TROPONIN I (12/14/2019 6:44 PM CDT) Pathologist Sig nature TROPONIN I <0.012 <=0.034 ng/mL [facility] Specimen Blood - VENOUS Narrative Performed At Equal or Less than 0.034 ng/ml---Normal [facility] Note: Cardiac troponin begins to rise 3-4 hours after the onset of ischemia. Repeat in 4-6 hours if the sample was drawn within 3-4 hours of the onset of the symptom and found normal. Between 0.035 and 0.120 ng/mL--- Borderline. Questionable myocardial injury or necros is Note: Serial measurement may be necessary to confirm or exclude the diagnosis of myocardial injury or necrosis; Clinical correlation (symptoms, EKGs, imaging studies, and others) required; Repeat in 4-6 hours if clinically indicated. Equal or Higher than 0.121 ng/mL---Abnormal. Myocardial Injury or Necrosis Likely Biotin has been reported to cause a negative bias, interpret results relative to patient's use of biotin. Performing Organization Address [facility] Phone Number [facility] CLIA: [id number], [address] [place] [address] 15 [facility] documented in this encounter Visit Diagnoses Diagnosis Chest pain, unspecified type - Primary Headache disorder Headache Second trimester documented in this encounter Administered Medications Medication Order MAR Action Action Date Dose Rate Site magnesium oxide (MAG-OX 400) Given 12/14/2019 9:13 PM CDT 400 m g tablet 400 mg 400 mg, Oral, DAILY, First dose on Sat12/15/19 at 0900, Until Discontinued, Routine Medication Order MAR Action Action Date Dose Rate Site HYDROcodone-acetaminophen Given 12/14/2019 9:14 PM CDT 1 tablet (NORCO 5) 5-325 mg tablet 1 tablet 1 tablet, Oral, ONCE, 1 dose, Sat12/14/19 at 2215, GLENN documented in this encounter Insurance Payer Benefit Plan / Subscriber ID Effective Phone Address [facility] Dates [facility] xxxxxxxxx 2019-Prese [address]OX Medic aid HEALTH CHOICE - HEALTH [place] [id number] 1 MANAGED MEDICAID [place], [place] [phone] documented as of this encounter Advance Directives Name Relationship Healthcare Agent Relationship Co mmunication Susannah Hurtado Grandparent Primary healthcare agent "
--- OUTSIDE RECORDS SUMMARY | 2020-01-24 12:58 | XMS REPORT | Summary of Care ---
:1990 Author Organization [facility] Address [address] [place] [address] Care Team Providers Name Role Phone Casey Insurance Hmo Unavailable Ansley Wood Primary Care Provider Reason for Visit Reason Comments ULTRASOUND (Routine) Status Reason Specialty Diagnoses / Referred By Referred To Procedures Contact Contact Authorized Maternal Diagnoses High-risk , second trimester History of delivery, currently Carolin Bailon, Medicine Procedures CONSULT MATERNAL MEDICINE ULTRASOUND Preferred Location: Cecelia ARIAS [address] [place] [address] [place] [address] Encounter Details Date Type Department Care Team Description 12/02/2019 Consumer Affairs Manager Visit [facility] Kely dorado of Ultrasound- [place], with [facility] Sang Armijo MD history of pre-term [place], [place] [address] labor in second [id number] trimester [phone] [place] [address] Allergies No Known Allergiesdocumented as of this encounter (statuses as of 12/02/2019) Medications Medication Sig Dispensed Refills Start Date End Date Status multivit-min/ferrous Take by mouth. 0 Active fumarate (MULTI VITAMIN ORAL) proMETHazine 25 mg Take 1 tablet 30 tablet 3 10/22/2019 Active tabletIndications: by mouth every Nausea and vomiting 4 (four) hours during as needed for Nausea and Vomiting (N/V). [id number] Take 1 capsule 30 capsule 0 0 [...] as of this encounter (statuses as of 12/02/2019) Active Problems Patient Care Coordination Note 07/03: Patient was discussed at [facility] joshua sung today 1. Pathology team [...] Patient has an appt on 07/08 in [place] with [facility]. Provider should discuss if patient is [...] her into a psych appt. Dr Cruz- [phone]. Cookie Baxter MD #[id number] 1:10 PM 06/14 Patient's case was discussed that [facility] co nference Plan: - check vWD [...] Bipolar 1 disorder 05/31/2015 Overview: Started on [place] 300 mg BID and Seroqu el 50 mg on 06/25/17 while inpatient. Estimated Date of Delivery Comments Yes 05/05/2020 Based on Est. Date o f Conception documented as of this encounter (statuses as of 12/02/2019) Resolved Problems Problem Noted Date Resolved Date Bradycardia, sinus 06/06/2019 09/03/2019 Dizziness 05/30/2019 09/03/2019 Premature labor 08/30/2017 09/03/2019 36 weeks gestation of 08/30/2017 09/03/19 20 Liveborn infant by vaginal delivery 08/30/201704/2020 Precipitous delivery, delivered (current hospitalization) 09/03/2019 Vomiting affecting , antepartum 06/25/2017 09/03/2019 History of shoulder dystocia in prior 06/25/2017 06/25/2017 Overview: [facility] as reveals normal vaginal delivery of 7lb [...] as of this encounter (statuses as of 12/02/2019) Immunizations Name Administration Dates Next Due Influenza [...] Visit OB Satellites Carlo Garcia MD [id number] [place], [place] [id number] Arrived Consults, keila Vance Pn Genetics 12/04/2019 Telemedicine Visit OB Satellites [place], [facility] 12/09/2019 Consumer Affairs Manager Visit Maternal Medicine Zofia Davies MD [address] [place], [place] [address] 12/18/2019 Consumer Affairs Manager Visit Obstetrics & Gynecology Ultrasound, Marycarmen davila [facility] 12/24/2019 Consumer Affairs Manager Visit Maternal Medicine Zofia Davies MD [address] [place], [place] [address] 12/30/2019 Consumer Affairs Manager Visit Maternal Medicine Zofia Davies MD [address] [place], [place] [address] 01/05/2020 Consumer Affairs Manager Visit Maternal Medicine Zofia Davies MD [address] [place], [place] [address] Health Maintenance Due Date [...] filedocumented in this encounter Visit Diagnoses Diagnosis Supervision of with history of pre-term labor in second trimester with history of pre-term labor documented in this encounter Insurance Payer Benefit Plan / Subscriber ID Effective Phone Address [facility] xxxxxxxxx 2019-Prese P[address]O. BOX Medic aid HEALTH CHOICE - HEALTH CHOICE nt [phone] 1 MANAGED MEDICAID [place], [place] [phone] documented as of this encounter Advance Directives Name Relationship Healthcare Agent Relationship Co mmunication Susannah Hurtado Grandparent Primary healthcare agent
--- OUTSIDE RECORDS SUMMARY | 2020-01-24 12:58 | XMS REPORT | Summary of Care ---
:1990 Author Organization [facility] Address [address] [place] [address] Care Team Providers Name Role Phone Casey Insurance Hmo Unavailable Ansley Wood Primary Care Provider Reason for Visit Reason Comments ULTRASOUND (Routine) Status Reason Specialty Diagnoses / Referred By Referred To Procedures Contact Contact Closed Maternal Diagnoses High-risk , second trimester Carolin Bailon MD Medicine Procedures CONSULT MATERNAL MEDICINE ULTRASOUND Preferred Location: [address] [place] [address] Encounter Details Date Type Department Care Team Description 12/18/2019 Specialist Physician Visit [facility] Estrada Meehan MD [id number] [place] [address] Supervision of with history of pre-term labor in second trimester; [facility] [place] Ultrasound, Adc Mfm Hyperemesis gravidarum [address] [facility], [address] [place] [address] Allergies No Known Allergiesdocumented as of this encounter (statuses as of 12/18/2019) Medications Medication Sig Dispensed Refills Start Date End Date Status multivit-min/ferrous Take by mouth. 0 Active fumarate (MULTI VITAMIN ORAL) proMETHazine 25 mg Take 1 tablet 30 tablet 3 10/22/2019 Active tabletIndications: by mouth every Nausea and vomiting 4 (four) hours during as needed for Nausea and Vomiting (N/V). [id number] Take 1 capsule 30 capsule 0 0 [...] as of this encounter (statuses as of 12/18/2019) Active Problems Patient Care Coordination Note 07/03: Patient was discussed at [facility] joshua sung today 1. Pathology team [...] Patient has an appt on 07/08 in [place] with [facility]. Provider should discuss if patient is [...] her into a psych appt. Dr Cruz- [phone]. Cookie Baxter MD #[id number] 1:10 PM 06/14 Patient's case was [...] Bipolar 1 disorder 05/31/2015 Overview: Started on [place] 300 mg BID and Seroqu el 50 mg on 06/25/17 while inpatient. Estimated Date of Delivery Comments Yes 05/05/2020 Based on Est. Date o f Conception documented as of this encounter (statuses as of 12/18/2019) Resolved Problems Problem Noted Date Resolved Date Bradycardia, sinus 06/06/2019 09/03/2019 Dizziness 05/30/2019 09/03/2019 Premature labor 08/30/2017 09/03/2019 36 weeks gestation of 08/30/2017 09/03/19 20 Liveborn by vaginal delivery 08/30/201704/2020 Precipitous delivery, delivered (current hospitalization) 09/03/2019 Vomiting affecting , antepartum 06/25/2017 09/03/2019 History of shoulder dystocia in prior 06/25/2017 06/25/2017 Overview: Records from [facility] as reveals normal vaginal delivery of [...] as of this encounter (statuses as of 12/18/2019) Immunizations Name Administration Dates Next Due Influenza [...] Date Type Specialty Care Team Description 12/24/2019 Specialist Physician Visit Maternal Medicine Zofia Davies MD [address] [place] [phone] 12/30/2019 Specialist Physician Visit Maternal Medicine Zofia Davies MD [address] [place], [place] [address] 01/05/2020 Specialist Physician Visit Maternal Medicine Zofia Davies MD [address] [place] [address] Health Maintenance Due Date Last Done Comments PAP SMEAR 09/03/2022 09/03/2019, 05/25/2015, 09/01/2009 DTaP,Tdap,and Td Vaccines (3 07/15/2027 07/15/2017, - Td) 10/23/2012 INFLUENZA VACCINE Completed 11/16/2019, 05/25/2015 PNEUMOCOCCAL 0-64 YEARS Aged Out No longe r eligible based COMBINED SERIES on patient's age to complete this to [facility] documented as of this encounter Results Not on filedocumented in this encounter Visit Diagnoses Diagnosis Supervision of with history of pre-term labor in second trimester with history of pre-term labor Hyperemesis gravidarum Mild hyperemesis gravidarum, unspecified as to episode of care documented in this encounter Insurance Payer Benefit Plan / Subscriber ID Effective Phone Address T ype Group [facility] xxxxxxxxx 2019-Prese [address] Medic aid HEALTH CHOICE - HE[place] nt [id number] 1 MANAGED MEDICAID [place], [place] [phone] documented as of this encounter Advance Directives Name Relationship Healthcare Agent Relationship Co mmunication Susannah Hurtado Grandparent Primary healthcare agent
--- OUTSIDE RECORDS SUMMARY | 2020-01-24 12:59 | XMS REPORT | Summary of Care ---
:1990 Author Organization [facility] Address [address] [place] [address] Care Team Providers Name Role Phone Casey Insurance Hmo Unavailable Ansley Wood Primary Care Provider Reason for Visit Reason Comments Consult (Routine) Status Reason Specialty Diagnoses / Referred By Referred To Procedures Contact Contact Closed Maternal Diagnoses Von Willebrand disease Carolin Bailon MD Medicine Procedures CONSULT/REFERRAL MATERNAL MEDICINE FACULTY/FELLOW Preferred location: [address] [place] [address] Encounter Details Date Type Department Care Team Description 12/04/2019 Telemedicine Visit [facility] Justice Gray MD [address] [place] [phone] Von Willebrand [facility] Stan Ramos MD [address] [facility] [id number] [place] [address] disease (Primary [facility] Health Fellow, [facility] Rmp Mfm Dx) Clinics [address] [facility], [address]th [place] [address] Allergies No Known Allergiesdocumented as of this encounter (statuses as of 12/04/2019) Medications Medication Sig Dispensed Refills Start Date End Date Status multivit-min/ferrous Take by mouth. 0 Active fumarate (MULTI VITAMIN ORAL) proMETHazine 25 mg Take 1 tablet 30 tablet 3 10/22/2019 Active tabletIndications: by mouth every Nausea and vomiting 4 (four) hours during as needed for Nausea and Vomiting (N/V). [id number]-[id number] Take 1 capsule 30 capsule 0 0 [...] as of this encounter (statuses as of 12/04/2019) Active Problems Patient Care Coordination Note 07/03: Patient was discussed at [facility] joshua sung today 1. Pathology team has [...] Patient has an appt on 07/08 in [place] with [facility]. Provider should discuss if patient is taking [...] dose. The ideal trough is 0.6-1.2. Dr Crzu is available to discuss the patient if questions arise and will work to get her into a psych appt. Dr Cruz- [phone]. Cookie Baxter MD #[id number] 1:10 PM 06/14 Patient's case was discussed that [facility] co nference Plan: - check vWD labs [...] Bipolar 1 disorder 05/31/2015 Overview: Started on [place] 300 mg BID and Seroqu el 50 mg on 06/25/17 while inpatient. Estimated Date of Delivery Comments Yes 05/05/2020 Based on Est. Date o f Conception documented as of this encounter (statuses as of 12/04/2019) Resolved Problems Problem Noted Date Resolved Date Bradycardia, sinus 06/06/2019 09/03/2019 Dizziness 05/30/2019 09/03/2019 Premature labor 08/30/2017 09/03/2019 36 weeks gestation of 08/30/2017 09/03/19 20 Liveborn infant by vaginal delivery 08/30/201704/2020 Precipitous delivery, delivered (current hospitalization) 09/03/2019 Vomiting affecting , antepartum 06/25/2017 09/03/2019 History of shoulder dystocia in prior 06/25/2017 06/25/2017 Overview: [facility] as reveals normal vaginal delivery of 7lb [...] as of this encounter (statuses as of 12/04/2019) Immunizations Name Administration Dates Next Due Influenza [...] Signs Not on filedocumented in this encounter Progress Notes Darcie Morataya MD - 12/04/2019 11:00 AM CDTPatient was scheduled for Tele health appointment, no answer. Records reviewed and preliminary planwas made (see notes below). Von Willebrand Disease - Diagnosed at age 6 for nose bleeding - S/pNSVD x2, uneventful pregnancies and deliveries (39 weeks and 36 weeks). - Last time seen by automobile drivers on 2015 with no recommendations - Plt 235K on 09/16/19 - Plan to repeat CBC - Checking factor VIII and ristocetin cofactor activity in 3rd trimester before delivery - Goal to maintain level >/= 50 IU/dL3-5 days post delivery - Avoid NSAIDS and Aspirin - Patient has had DDVAP testing but since the initial levels are normal, this test cannot be validated - Avoid operative delivery - On admission check VIII levels or VWF:RCo levels and after delivery will do frequent testing - DDAVP to be given q 12 hours x 4 doses max at the time of delivery(0.3ug/kg IV max dose 25-30ug)intranasal is 300ug. I f needed more than three days due to tachyphilaxis VWF concentrates become the main stay of management (Humate P or Alphanate) - If patient goes for a will consider Factor VIII administration - Tranexamic acid to be given at delivery as sceond line agaent with DDAVP (first line therapy) and then with close follow up of levels Reports Hx of Shoulder dystocia - Records reviewed - [facility] for 2/28/13, uncomplicated, no shoulder dystocia, Baby weight 7lbs 13 oz, discharged on PPD2 - Received DDAVP prior to delivery - EBL 200 ml/vaginal laceration repaired - Per records ([facility]) 12/04/15 delivery, per Hematology recommendations were DDVAP and only factor VIII if patient goes for - FFP or cryoprecipitate to be given for profuse bleeding despite DDAVP or humate P or declining factor VIII levels or VWF:RCo Hx of PTL - in 2015 and 2017 - 36 and 35 weeks GA - US CL screen 12/01 >3.0 cm Bipolar disorder - Hx of taking [place] - Seen by Psych in the past H/o Migraine - Reports nausea associated with headaches - Started on Esgic and Compazine on 06/14/17 after presenting to triage, relieved GLEASON and nausea - Taking Esgic/Comazine combination. Rh negative - IAT negative in this - Will need Rhogam at 28 weeks H/o Diabetes - Childhood, lost weight and resolved - 1-hr GTT 106 Mild Intermittent Asthma - Last exacerbation 2015, SOB that is possibly related to vs anxiety - inhaler prn History of abdominal surgery - Laparoscopic appendectomy in 2003 documented in this encounter Plan of Treatment Date Type Specialty Care Team Description 12/09/2019 Bridge Game Director Visit Maternal Medicine Zofia Davies MD [address] [place], [place] [address] 12/18/2019 Bridge Game Director Visit Obstetrics & Gynecology Ultrasound, A dc Mfm 12/24/2019 Bridge Game Director Visit Maternal Medicine Zofia Davies MD [address] [place], [place] [address] 12/30/2019 Bridge Game Director Visit Maternal Medicine Zofia Davies MD [address] [place], [place] [address] 01/05/2020 Bridge Game Director Visit Maternal Medicine Zofia Davies MD [address] [place], [place] [address] Health Maintenance Due Date Last Done Comments PAP SMEAR 09/03/2022 09/03/2019, 05/25/2015, 09/01/2009 DTaP,Tdap,and Td Vaccines (3 07/15/2027 07/15/2017, - Td) 10/23/2012 INFLUENZA VACCINE Completed 11/16/2019, 05/25/2015 PNEUMOCOCCAL 0-64 YEARS Aged Out No longe r eligible based COMBINED SERIES on patient's age to complete this to [facility] documented as of this encounter Results Not on filedocumented in this encounter Visit Diagnoses Diagnosis Von Willebrand disease - Primary Von Willebrand's disease documented in this encounter Insurance Payer Benefit Plan / Subscriber ID Effective Phone Address T ype Group [facility] xxxxxxxxx 2019-Prese [address]OX Medic aid HEALTH CHOICE - HEALTH CHOICE nt [id number] 1 MANAGED MEDICAID [place], [place] MEDICAID [phone] ([address]) [address] [place] [address] documented as of this encounter Advance Directives Name Relationship Healthcare Agent Relationship Co mmunication Susannah Hurtado Grandparent Primary healthcare agent
--- OUTSIDE RECORDS SUMMARY | 2020-01-24 12:59 | XMS REPORT | Summary of Care ---
:1990 Author Organization [facility] Address [address] [place] [address] Care Team Providers Name Role Phone Casey Insurance Hmo Unavailable Ansley Wood Primary Care Provider Encounter Details Date Type Department Care Team Description [facility]/04/2019 [facility] [address] [place] [address] [address] [facility] [phone] [place], [place] [address] [phone] Allergies No Known Allergiesdocumented as of this encounter (statuses as of 12/04/2019) Medications Medication Sig Dispensed Refills Start Date End Date Status multivit-min/ferrous Take by mouth. 0 Active fumarate (MULTI VITAMIN ORAL) proMETHazine 25 mg Take 1 tablet 30 tablet 3 10/22/2019 Active tabletIndications: by mouth every Nausea and vomiting 4 (four) hours during as needed for Nausea and Vomiting (N/V). [id number]-[id number] Take 1 capsule 30 capsule 0 0 [...] Coordination Note 07/03: Patient was discussed at [facility] joshua sung today 1. Pathology team [...] Patient has an appt on 07/08 in [place] with [facility]. Provider should discuss if patient is [...] her into a psych appt. Dr Cruz- [phone]. Cookie Baxter MD #[id number] 1:10 PM 06/14 Patient's case was discussed that [facility] co nference Plan: - check vWD [...] Bipolar 1 disorder 05/31/2015 Overview: Started on [place] 300 mg BID and Seroqu el 50 [...] [facility] as reveals normal vaginal delivery of [...] Date Type Specialty Care Team Description 12/09/2019 Suit Maker Visit Maternal Medicine Zofia Davies MD [address] [place], [place] [address] 12/18/2019 Suit Maker Visit Obstetrics & Gynecology Ultrasound, A dc Mfm 12/24/2019 Suit Maker Visit Maternal Medicine Zofia Davies MD [address] [place], [place] [address] 12/30/2019 Suit Maker Visit Maternal Medicine Zofia Davies MD [address] [place], [place] [address] 01/05/2020 Suit Maker Visit Maternal Medicine Zofia Davies MD [address] [place], [place] [address] Health Maintenance Due Date [...] / Subscriber ID Effective Phone Address T [facility] xxxxxxxxx 2019-Pre [address] Medicai d HEALTH CHOICE HEALTH CHOICE sent [id number] - MANAGED [place], [place] [address] [employer]ON [employer] [id number] 2017-Pre [phone] Behavio r[facility] sent [phone] [facility] , MANA[address]ED [address] [place] [address] documented as of this encounter Advance Directives Name Relationship Healthcare Agent Relationship Co mmunication Susannahirina Hurtado Grandparent Primary healthcare agent
--- OUTSIDE RECORDS SUMMARY | 2020-01-24 12:59 | XMS REPORT | Summary of Care ---
:1990 Author Organization [facility] Address [address] [place] [address] Care Team Providers Name Role Phone Casey Insurance Hmo Unavailable Ansley Wood Primary Care Provider Reason for Visit Reason Comments Care Genetic Visit (Routine) Status Reason Specialty Diagnoses / Referred By Referred To Procedures Contact Contact Closed Pediatric Genetics Diagnoses Supervision of high risk in first trimester Von Willebrand disease Family history of autism Cookie Hylton Procedures CONSULT GENETICS N, REPAIRER SASH AND DOOR [address] [place] [address] Encounter Details Date Type Department Care Team Description 12/02/2019 Telemedicine Visit [facility] Carlo Garcia MD [address] [facility] [id number] [place] [address] Family history of autism (Primary Dx); [facility] Consults, Clinton Vance Pn Genetics Von Willebrand disease [address] [place] [phone] Allergies No Known Allergiesdocumented as of this encounter (statuses as of 12/02/2019) Medications Medication Sig Dispensed Refills Start Date End Date Status multivit-min/ferrous Take by mouth. 0 Active fumarate (MULTI VITAMIN ORAL) proMETHazine 25 mg Take 1 tablet 30 tablet 3 10/22/2019 Active tabletIndications: by mouth every Nausea and vomiting 4 (four) hours during as needed for Nausea and Vomiting (N/V). iepzyncusylak-bobi-fjkjg Take 1 capsule 30 capsule 0 0 [...] Coordination Note 07/03: Patient was discussed at [facility] joshua sung today 1. Pathology team [...] Patient has an appt on 07/08 in [place] with [facility]. Provider should discuss if patient is [...] her into a psych appt. Dr Cruz- [phone]. Cookie Baxter MD #[id number] 1:10 PM 06/14 Patient's case was discussed that [facility] co nference Plan: - check vWD [...] Bipolar 1 disorder 05/31/2015 Overview: Started on [place] 300 mg BID and Seroqu el 50 [...] prior 06/25/2017 06/25/2017 Overview: [facility] from [facility] as reveals normal vaginal delivery of 7lb 13oz infant. Uncomplicated, no dystocia. Polyhydramnios 06/24/2017 06/25/2017 Bloody diarrhea 06/17/2017 06/24/2017 25 weeks gestation of 06/14/2017 06/24/20 17 Headache in , antepartum, second trimester 06/14/20 17 06/24/2017 Supervision of high risk , antepartum, second 04/1006/24/2017 trimester Supervision of high risk , antepartum 03/25/2017 04/10/2017 History of diabetes as a child 03/25/2017 10/30/201 7 Overview: As per patient resolved with [...] on filedocumented in this encounter Progress Notes Eyad Leonela - 12/02/2019 11:15 AM CDT INITIAL GENETIC COUNSELING EVALUATION Lauren Polanco is a 29 year old , , female, seen for genetic counseling on 12/02/19. Thepatients gestational age on the date of service was 17w6d (Estimated Date of Delivery: 05/05/20). The patient was referred by Cookie Hylton FNP for genetic counseling due to a family history of autism and von Willebrand disease. Verbal consent obtained from Patient: Lauren Polanco for telehealth services provided below. Communication with patient was conducted via telephone. Location of Patient: Home Location of Provider: Home Date of Service: 12/02/2019 Pertinent Records: Age-related risk for chromosome abnormalities (based on age at delivery): Aneuploidy screening: NIPT -reportedly negative per patient and nurse note in EPIC. No report in EPIC. 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 proCHLORperazine (COMPAZINE) 10 mg tablet Take 1 tablet by mouth every 6 (six) hours as needed (migraine headache). proMETHazine 25 mg tablet Take 1 tablet by mouth every 4 (four) hours as needed for Nausea and Vomiting (N/V). multivit-min/ferrous fumarate (MULTI VITAMIN ORAL) Take by mouth. Pedigree: Pedigree obtained by Leonela Castano at today's visit; the patient served as the informant. Pertinent family history risk assessment is described below. Family history is otherwise unremarkable for other reported instances of consanguinity, intellectual disability/autism, defects such as heart/kidney defects or ONTD, blindness/deafness, multiple miscarriages/stillbirth/infertility, early onset cancer (<50 yrs), and known genetic disorders such as muscular dystrophy, bleeding disorders, cystic fibrosis, or hemoglobinopathies. Genetic Counseling Risk Discussion Summary: ? Von Willebrand Disease: The patient and several other family members have von Willebrand disease. Von Willebrand disease is a lifelong bleeding disorder in which blood doesn't clot well. The usual cause of von Willebrand disease is an inherited abnormal gene that controls von Willebrand factor aprotein that plays a olmedo role in blood clotting. Many people with von Willebrand disease also have low levels of factor VIII, another protein that helps in clotting. Rarely, von Willebrand disease can develop later in life in people who didn't inherit an abnormal gene from a parent. This is known as acquired von Willebrand syndrome, and it's likely caused by an underlying medical condition. The most common sign of the condition is abnormal bleeding. However, other symptoms can include heavy or long menstrual bleeding, blood in the urine or stool, and easy bruising or lumpy bruises. There are three main types of the disease and the amount of bleeding varies from one person to another, depending on the type and severity of the disease. The disease is usually an autosomal dominant disorder with affected individuals having a 50% chance to pass on the condition to their children. However, the most severe form of the condition is autosomal recessive, which means both parents have to pass an abnormal gene for a child to be affected. Von Willebrand disease can't be cured. But with treatment and self-care, most people with this disease can lead active lives. ? Family History of Autism Spectrum Disorder: The patient reported that her son, from a previous relationship, has been diagnosed with autism. Autism spectrum disorder (ASD) is now defined by the [place] [employer]'s Diagnosis and Statistical Manual of Mental Disorders (DSM-5) as a single disorder that includes disorders that were previously considered separate autism, Asperger's syndrome, childhood disintegrative disorder and pervasive developmental disorder not otherwise specified. Autism is a neurodevelopment disordered characterized by significant delays in social skills andcommunication along with restrictive, repetitive, and stereotyped play behaviors. Autism spectrum disorders affects about 1 or 2 people in every thousand. Most cases are sporadic. A cause can be determined in only 10-30% of cases. Possible causes of autism include in utero infection, brain malformations, chromosome problems, and genetic syndromes. As most cases of multifactorial are sporadic, recurrence risk is estimated overall as 3-8% in families with one affected child. Plan: Services Scheduled Level II Ultrasound Fragile X Carrier Test - pending insurance approval Services Declined Amniocentesis Patient to continue following up with other providers as documented below. Future Appointments Date Time Provider Department Center 12/04/2019 11:00 AM Fellow, Klever [facility] R[facility]p M[facility] 12/09/2019 1:00 PM ANG-MFM ULTRASOUND ANGOBSUS [facility] Ang 12/18/2019 2:00 PM Ultrasound, Adc Mfm [facility] 12/24/2019 11:30 AM ANG-MFM ULTRASOUND ANGOBSUS [facility] Ang 12/30/2019 11:30 AM ANG-MFM ULTRASOUND ANGOBSUS [facility] Ang 01/05/2020 10:30 AM ANG-MFM ULTRASOUND ANGOBSUS [facility] Ang The risks discussed were based on the information provided by the patient including review of the family history (attached), history, and ethnic background. The background risk of 3-5% for defects, intellectual disability and genetic disease, many of which cannot be detected or predicted prenatally was given. The options of screening and diagnostic testing including the risks, benefits and limitations were discussed. The patients understanding of the medical issues was assessed by us, including potential barriers to understanding. We provided all necessary teaching. Questions were answered to the satisfaction of the patient, who demonstrated comprehension of the problem and our suggestions for management. Thank you for the opportunity to assist in the care of your patient, Leonela Castano MS, CGC I spent 60 minutes with the patient and >50% of the time was spent counseling the patient about her options after performing a risk assessment. Leonela Castano MS, CGC Certified Genetic Counselor documented in this encounter Plan of Treatment Date Type Specialty Care Team Description 12/04/2019 Telemedicine Visit OB Satellites Fellow, Klever [facility] Rmchp [facility] 12/09/2019 Scheduling Specialist Visit Maternal Medicine Zofia Davies MD [address] [place] [address] 12/18/2019 Scheduling Specialist Visit Obstetrics & Gynecology Ultrasound, Marycarmen dc [facility] 12/24/2019 Scheduling Specialist Visit Maternal Medicine Zofia Davies MD [address] [place], [place] [address] 12/30/2019 Scheduling Specialist Visit Maternal Medicine Zofia Davies MD [address] [place], [place] [address] 01/05/2020 Scheduling Specialist Visit Maternal Medicine Zofia Davies MD [address] [place], [place] [address] Health Maintenance Due Date Last Done Comments PAP SMEAR 09/03/2022 09/03/2019, 05/25/2015, 09/01/2009 DTaP,Tdap,and Td Vaccines (3 07/15/2027 07/15/2017, - Td) 10/23/2012 INFLUENZA VACCINE Completed 11/16/2019, 05/25/2015 PNEUMOCOCCAL 0-64 YEARS Aged Out No longe r eligible based COMBINED SERIES on patient's age to complete this to [facility] documented as of this encounter Results Not on filedocumented in this encounter Visit Diagnoses Diagnosis Family history of autism - Primary Family history of psychiatric condition Von Willebrand disease Von Willebrand's disease documented in this encounter Insurance Payer Benefit Plan / Subscriber ID Effective Phone Address [facility] xxxxxxxxx 2019-Prese [address] Medic aid HEALTH CHOICE [place] [place] [id number] 1 MANAGED MEDICAID [place], [place] [phone] (Home) [address] [place] [address] documented as of this encounter Advance Directives Name Relationship Healthcare Agent Relationship Co mmunication Susannah Hurtado Grandparent Primary healthcare agent
--- OUTSIDE RECORDS SUMMARY | 2020-01-24 13:00 | XMS REPORT | Summary of Care ---
:1990 Author Organization [facility] Address [address] [place] [address] Care Team Providers Name Role Phone Casey Insurance Hmo Unavailable Ansley Wood Primary Care Provider Reason for Visit Reason Comments Follow-up Encounter Details Date Type Department Care Team Description 12/29/2019 Telephone [facility] Pediatric RayVirgil MD Follow-up Genetics- [address] [place] [address] Floor [phone] [place] [address] [phone] Allergies No Known Allergiesdocumented as of this encounter (statuses as of 12/29/2019) Medications Medication Sig Dispensed Refills Start Date End Date Status multivit-min/ferrous Take by mouth. 0 Active fumarate (MULTI VITAMIN ORAL) proMETHazine 25 mg Take 1 tablet 30 tablet 3 10/22/2019 Active tabletIndications: by mouth every Nausea and vomiting 4 (four) hours during as needed for Nausea and Vomiting (N/V). yhdmuelwzooqg-rsrx-aholv Take 1 capsule 30 capsule 0 0 [...] as of this encounter (statuses as of 12/29/2019) Active Problems Patient Care Coordination Note 07/03: Patient was discussed at [facility] joshua sung today 1. Pathology team [...] Patient has an appt on 07/08 in [place] with [facility]. Provider should discuss if patient is [...] her into a psych appt. Dr Cruz- [phone]. Cookie Baxter MD #[id number] 1:10 PM 06/14 Patient's case was discussed that [facility] co nference Plan: - check vWD [...] Bipolar 1 disorder 05/31/2015 Overview: Started on [place] 300 mg BID and Seroqu el 50 mg on 06/25/17 while inpatient. Estimated Date of Delivery Comments Yes 05/05/2020 Based on Est. Date o f Conception documented as of this encounter (statuses as of 12/29/2019) Resolved Problems Problem Noted Date Resolved Date Bradycardia, sinus 06/06/2019 09/03/2019 Dizziness 05/30/2019 09/03/2019 Premature labor 08/30/2017 09/03/2019 36 weeks gestation of 08/30/2017 09/03/19 20 Liveborn infant by vaginal delivery 08/30/201704/2020 Precipitous delivery, delivered (current hospitalization) 09/03/2019 Vomiting affecting , antepartum 06/25/2017 09/03/2019 History of shoulder dystocia in prior 06/25/2017 06/25/2017 Overview: [facility] from [facility] as reveals normal vaginal delivery [...] as of this encounter (statuses as of 12/29/2019) Immunizations Name Administration Dates Next Due Influenza [...] Treatment Date Type Specialty Care Team Description 12/30/2019 Flatwork Finisher Visit Maternal Medicine Zofia Davies MD [address] [place], [place] [address] 12/30/2019 Flatwork Finisher Visit OB Satellites Zofia Barboza MD [id number] [place], [place] [id number] Lab, [facility] Health Maintenance Due Date Last Done Comments [...] ID Effective Phone Address [facility] xxxxxxxxx 2019-Pre [address]OX Medicai d HEALTH CHOICE HEALTH CHOICE sent [id number] - MANAGED [place], [place] [address] BEACON BEACON [id number] 2017-Pre [phone] Behavio ral [facility] sent [phone] [facility] , [address]ED [address] [place] [address] documented as of this encounter Advance Directives Name Relationship Healthcare Agent Relationship Co mmunication Susannah Hurtado Grandparent Primary healthcare agent
--- OUTSIDE RECORDS SUMMARY | 2020-01-24 13:00 | XMS REPORT | Summary of Care ---
:1990 Author Organization [facility] Address [address] [place] [address] Care Team Providers Name Role Phone Casey Insurance Hmo Unavailable Ansley Wood Primary Care Provider Reason for Visit Reason Comments Authorization Encounter Details Date Type Department Care Team Description 12/24/2019 Telephone [facility] RayVirgil MD Authorization Genetics- [address] [place] [address] Floor [phone] [place] [phone] Allergies No Known Allergiesdocumented as of this encounter (statuses as of 12/24/2019) Medications Medication Sig Dispensed Refills Start Date End Date Status multivit-min/ferrous Take by mouth. 0 Active fumarate (MULTI VITAMIN ORAL) proMETHazine 25 mg Take 1 tablet 30 tablet 3 10/22/2019 Active tabletIndications: by mouth every Nausea and vomiting 4 (four) hours during as needed for Nausea and Vomiting (N/V). kjdxwivrobpge-jjhq-zfxwa Take 1 capsule 30 capsule 0 0 [...] as of this encounter (statuses as of 12/24/2019) Active Problems Patient Care Coordination Note 07/03: Patient was discussed at [facility] joshua sung today 1. Pathology team [...] Patient has an appt on 07/08 in [place] with [facility]. Provider should discuss if patient is [...] her into a psych appt. Dr Cruz- [phone]. Cookie Baxter MD #[id number] 1:10 PM 06/14 Patient's case was discussed that [facility] co nference Plan: - check vWD [...] Bipolar 1 disorder 05/31/2015 Overview: Started on [place] 300 mg BID and Seroqu el 50 mg on 06/25/17 while inpatient. Estimated Date of Delivery Comments Yes 05/05/2020 Based on Est. Date o f Conception documented as of this encounter (statuses as of 12/24/2019) Resolved Problems Problem Noted Date Resolved Date Bradycardia, sinus 06/06/2019 09/03/2019 Dizziness 05/30/2019 09/03/2019 Premature labor 08/30/2017 09/03/2019 36 weeks gestation of 08/30/2017 09/03/19 20 Liveborn infant by vaginal delivery 08/30/201704/2020 Precipitous delivery, delivered (current hospitalization) 09/03/2019 Vomiting affecting , antepartum 06/25/2017 09/03/2019 History of shoulder dystocia in prior 06/25/2017 06/25/2017 Overview: [facility] as reveals normal vaginal delivery of 7lb [...] as of this encounter (statuses as of 12/24/2019) Immunizations Name Administration Dates Next Due Influenza [...] Date Type Specialty Care Team Description 12/30/2019 Tobacco Sprayer Visit Maternal Medicine Zofia Davies MD [address] [place], [place] [address] Health Maintenance Due Date [...] / Subscriber ID Effective Phone Address [facility] xxxxxxxxx 2019-Pre [address]OX Medicai d HEALTH CHOICE HEALTH CHOICE sent [id number] - MANAGED [place], [place] [address] BEACON BEACON [id number] 2017-Pre [phone] Behavio ral BEHAVIORAL BEHAVIORAL sent [phone] [facility] [place] , [address] [place] [address] documented as of this encounter Advance Directives Name Relationship Healthcare Agent Relationship Co mmunication Susannah Hurtado Grandparent Primary healthcare agent
--- OUTSIDE RECORDS SUMMARY | 2020-01-24 13:01 | XMS REPORT | Summary of Care ---
:1990 Author Organization [facility] - [facility] Address [address] [place] [address] Care Team Providers Name Role Phone Casey Insurance Hmo Unavailable Ansley Wood Primary Care Provider Reason for Visit Reason Comments Care Encounter Details Date Type Department Care Team Description 12/29/2019 Case Management [facility] Pediatric Montez Barker in, Care Genetics[address], [facility] [address] [place], [place] [phone] Allergies No Known Allergiesdocumented as of this encounter (statuses as of 12/29/2019) Medications Medication Sig Dispensed Refills Start Date End Date Status multivit-min/ferrous Take by mouth. 0 Active fumarate (MULTI VITAMIN ORAL) proMETHazine 25 mg Take 1 tablet 30 tablet 3 10/22/2019 Active tabletIndications: by mouth every Nausea and vomiting 4 (four) hours during as needed for Nausea and Vomiting (N/V). zjmxvzjjfcmyk-etyb-wnbyi Take 1 capsule 30 capsule 0 0 [...] Coordination Note 07/03: Patient was discussed at [facility] joshua sung today 1. Pathology team [...] Patient has an appt on 07/08 in [place] with [facility]. Provider should discuss if patient is [...] her into a psych appt. Dr Cruz- [phone]. Cookie Baxter MD #[id number] 1:10 PM 06/14 Patient's case was discussed that [facility] co nference Plan: - check vWD [...] Bipolar 1 disorder 05/31/2015 Overview: Started on [place] 300 mg BID and Seroqu el 50 [...] prior 06/25/2017 06/25/2017 Overview: [facility] from [facility] as reveals normal vaginal delivery of [...] on filedocumented in this encounter Progress Notes Leonela Castano - 12/29/2019 3:20 PM CDTAttempted to contact patient with approval for Fragile X testing. No answer. Not possible to leaveVM will attempt to call again. Appointment for lab draw scheduled to coincide with patient US appointment tomorrow. documented in this encounter Plan of Treatment Date Type Specialty Care Team Description 12/30/2019 Baseball Inspector And Repairer Visit Maternal Medicine Zofia Davies MD [address] [place], [place] [address] 12/30/2019 Baseball Inspector And Repairer Visit OB Satellites Zofia Barboza MD [id number] [place], [place] [id number] Lab, [facility] Name Type Priority Associated Diagnoses Order S chedule FRAGILE X LAB Routine Family history of autism Exp ected: 12/29/2019, Expires: 02/27/2020 Health Maintenance Due Date Last Done Comments PAP SMEAR 09/03/2022 09/03/2019, 05/25/2015, 09/01/2009 DTaP,Tdap,and Td Vaccines (3 07/15/2027 07/15/2017, - Td) 10/23/2012 INFLUENZA VACCINE Completed 11/16/2019, 05/25/2015 PNEUMOCOCCAL 0-64 YEARS Aged Out No longe r eligible based COMBINED SERIES on patient's age to complete this to [facility] documented as of this encounter Results Not on filedocumented in this encounter Visit Diagnoses Diagnosis Family history of autism - Primary Family history of psychiatric condition documented in this encounter Insurance Payer Benefit Plan / Subscriber ID Effective Phone Address T [employer] [facility] xxxxxxxxx 2019-Pre [address] [facility] [employer] HEALTH CHOICE sent [id number] - MANAGED [place], [place] [address] BEACON BEACON [id number] 2017-Pre [phone] Behavio ral BEHAVIORAL BEHAVIORAL sent [phone] [facility] , [address]ED [address] [place] [address] documented as of this encounter Advance Directives Name Relationship Healthcare Agent Relationship Co mmunication Susannah McAlizzeth Grandparent Primary healthcare agent
--- OUTSIDE RECORDS SUMMARY | 2020-01-24 13:10 | XMS REPORT ---
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 University 16:04:00 [place] [facility]ician s O2 SAT 2020-01-21 97 % University 16:04:00 [place] Physician s Systolic blood 2020-01-21 110 mm[Hg] Location: [facility]; [facility] 15:44:00 Position: [place] Physician s Sitting Diastolic blood 2020-01-21 70 mm[Hg] Location: [facility]; [facility] 15:44:00 Position: [place] Physician s Sitting Heart Rate 2020-01-21 84 /min [facility] 15:44:00 [place] Physician s Body height 2020-01-21 61 [in_us] University 15:44:00 [place] Physician s Weight 2020-01-21 202.25 [lb_av] [facility] 15:44:00 [place] Physician s Body mass index 2020-01-21 38.22 kg/m2 University o f (BMI) [Ratio] 15:44:00 [place] [facility] Body temperature 2020-01-21 97.1 [degF] Method: Oral [facility] 15:44:00 [place] Physician s Systolic blood 2020-01-14 113 mm[Hg] Location: [facility]; [facility] 13:13:00 Position: [place] Physician s Sitting Diastolic blood 2020-01-14 75 mm[Hg] Location: [facility]; [facility] 13:13:00 Position: [place] Physician s Sitting Body height 2020-01-14 61 [in_us] University of 13:13:00 [place] Physician s Weight 2020-01-14 199.375 [lb_av] University o f 13:13:00 [place] Physician s Body mass index 2020-01-14 37.67 kg/m2 University o f (BMI) [Ratio] 13:13:00 [place] [facility] Body temperature 2020-01-14 98.3 [degF] Method: [facility] 13:13:00 Tympanic [place] Physician s Heart Rate 2020-01-14 88 /min [facility] 13:13:00 [place] Physician s Systolic (mm Hg) 2019-12-15 [facility] Health 02:00:00 Diastolic (mm Hg) 2019-12-15 [facility] Healt h 02:00:00 Heart Rate 2019-12-15 [facility] Health 02:00:00 Respitory Rate 2019-12-15 [facility] Health 02:00:00 Temperature Oral 2019-12-14 37.33 Trice [facility] Health (F) 21:23:00 Weight 2019-12-14 [facility] Health 21:23:00 Systolic blood 2019-11-30 106 mm[Hg] Location: [place]; [facility] 14:06:00 Position: [place] Physician s Sitting Diastolic blood 2019-11-30 73 mm[Hg] Location: [place]; [facility] 14:06:00 Position: [place] Physician s Sitting Body height 2019-11-30 61 [in_us] [facility] 14:06:00 [place] Physician s Weight 2019-11-30 191 [lb_av] [facility] 14:06:00 [place] Physician s Body mass index 2019-11-30 36.09 kg/m2 University o f (BMI) [Ratio] 14:06:00 [place] [facility] Heart Rate 2019-11-30 83 /min [facility] 14:06:00 [place] [facility] Systolic (mm Hg) 2019-11-27 [facility] Health 15:10:00 Diastolic (mm Hg) 2019-11-27 [facility] Healt h 15:10:00 Heart Rate 2019-11-27 [facility] Health 15:10:00 Respitory Rate 2019-11-27 [facility] Health 15:10:00 Temperature Oral 2019-11-27 37.28 Trice [facility] Health (F) 14:15:00 Weight 2019-11-27 [facility] Health 14:15:00 Systolic (mm Hg) 2019-11-16 [facility] Health 13:24:00 Diastolic (mm Hg) 2019-11-16 [facility] Healt h 13:24:00 Heart Rate 2019-11-16 [facility] Health 13:24:00 Temperature Oral 2019-11-16 36.78 Trice [facility] Health (F) 13:24:00 Respitory Rate 2019-11-16 [facility] Health 13:24:00 Height 2019-11-16 154.9 cm [facility] Health 13:24:00 Weight 2019-11-16 [facility] Health 13:24:00 Systolic (mm Hg) 2019-10-22 [facility] Health 19:04:00 Diastolic (mm Hg) 2019-10-22 [facility] Healt h 19:04:00 Heart Rate 2019-10-22 [facility] Health 19:04:00 Temperature Oral 2019-10-22 36.28 Trice [facility] Health (F) 19:04:00 Respitory Rate 2019-10-22 [facility] Health 19:04:00 Height 2019-10-22 154.9 cm [facility] Health 19:04:00 Weight 2019-10-22 [facility] Health 19:04:00 Systolic (mm Hg) 2019-10-01 [facility] 16:41:00 Diastolic (mm Hg) 2019-10-01 [facility] 16:41:00 Heart Rate 2019-10-01 [facility] Health 16:41:00 Temperature Oral 2019-10-01 36.67 Trice [facility] Health (F) 16:41:00 Respitory Rate 2019-10-01 [facility] Health 16:41:00 Height 2019-10-01 154.9 cm [facility] Health 16:41:00 Weight 2019-10-01 [facility] Health 16:41:00 Systolic (mm Hg) 2019-09-16 [facility] Health 14:41:04 Diastolic (mm Hg) 2019-09-16 [facility] 14:41:04 Heart Rate 2019-09-16 [facility] Health 14:41:04 Temperature Oral 2019-09-16 36.94 Trice [facility] Health (F) 14:41:04 Respitory Rate 2019-09-16 [facility] Health 14:41:04 Weight 2019-09-16 [facility] Health 12:24:00 Systolic (mm Hg) 2019-09-09 [facility] Health 19:24:00 Diastolic (mm Hg) 2019-09-09 [facility] Healt h 19:24:00 Heart Rate 2019-09-09 [facility] Health 19:24:00 Temperature Oral 2019-09-09 37.22 Trice [facility] Health (F) 19:24:00 Respitory Rate 2019-09-09 [facility] Health 19:24:00 Height 2019-09-09 154.9 cm [facility] Health 19:24:00 Weight 2019-09-09 [facility] Health 19:24:00 Systolic (mm Hg) 2019-09-03 [facility] Health 20:38:00 Diastolic (mm Hg) 2019-09-03 [facility] 20:38:00 Heart Rate 2019-09-03 [facility] Health 20:38:00 Temperature Oral 2019-09-03 36.94 Trice [facility] Health (F) 20:38:00 Respitory Rate 2019-09-03 [facility] Health 20:38:00 Height 2019-09-03 154.9 cm [facility] Health 20:38:00 Weight 2019-09-03 [facility] Health 20:38:00 Systolic (mm Hg) 2017-08-23 [facility] Me dical 23:48:00 Center Diastolic (mm Hg) 2017-08-23 [facility] edical 23:48:00 Center Heart Rate 2017-08-23 [facility] [place] [facility] 23:48:00 Center Respitory Rate 2017-08-23 [place] [facility] 23:48:00 Center Temperature Oral 2017-08-23 98 F [facility] Me dical (F) 23:48:00 Center Systolic (mm Hg) 2017-08-23 [facility] Me dical 19:33:00 Center Diastolic (mm Hg) 2017-08-23 [facility] edical 19:33:00 Center Heart Rate 2017-08-23 [place] [facility] 19:33:00 Center Temperature Oral 2017-08-23 98.3 F [facility] Me dical (F) 19:33:00 Center Respitory Rate 2017-08-23 [place] [facility] 19:33:00 Center Systolic (mm Hg) 2017-08-23 [facility] Me dical 16:45:00 Center Diastolic (mm Hg) 2017-08-23 [facility] edical 16:45:00 Center Temperature Oral 2017-08-23 98.3 F [facility] Me dical (F) 13:45:00 Center BMI Calculated 2017-08-23 [place] [facility] 07:47:00 Center Weight 2017-08-23 [facility] [place] [facility] 07:47:00 Center Height 2017-08-23 154.94 cm [facility] [place] [facility] 07:47:00 Center Weight 2017-08-23 [facility] [place] [facility] 05:32:00 Center Height 2017-08-23 154.94 cm [place] [facility] 05:32:00 Center BMI Calculated 2017-08-23 [facility] [place] [facility] 05:32:00 Center Respitory Rate 2017-08-23 [place] [facility] 05:32:00 Center Heart Rate 2017-08-23 [facility] [place] [facility] 05:32:00 Center Systolic (mm Hg) 2017-08-02 [facility] [place] Me dical 21:30:00 Center Diastolic (mm Hg) 2017-08-02 [facility] edical 21:30:00 Center Systolic (mm Hg) 2017-08-02 [facility] Me dical 21:00:00 Center Diastolic (mm Hg) 2017-08-02 [facility] edical 21:00:00 Center Systolic (mm Hg) 2017-08-02 [facility] [place] Me dical 20:30:00 Center Diastolic (mm Hg) 2017-08-02 [facility] [place] M edical 20:30:00 Center Respitory Rate 2017-08-02 [facility] [place] [facility] 18:31:00 Center Heart Rate 2017-08-02 [facility] [place] [facility] 18:31:00 Center Temperature Oral 2017-08-02 98.2 F [facility] [place] Me dical (F) 18:31:00 Center Height 2017-08-02 154.94 cm [facility] [place] [facility] 18:31:00 Center Weight 2017-08-02 [facility] [place] [facility] 18:31:00 Center BMI Calculated 2017-08-02 [facility] [place] [facility] 18:31:00 Center Temperature Oral 2017-08-02 98.5 F [facility] [place] Me dical (F) 18:14:00 Center Respitory Rate 2017-08-02 [facility] [place] [facility] 18:14:00 Center Heart Rate 2017-08-02 [facility] [place] [facility] 18:14:00 Center Systolic (mm Hg) 2015-12-08 [facility] [place] Me dical 16:11:00 Center Diastolic (mm Hg) 2015-12-08 [facility] M edical 16:11:00 Center Temperature Oral 2015-12-08 98.4 F [facility] [place] Me d[facility] (F) 16:11:00 Center Respitory Rate 2015-12-08 [facility] [place] [facility] 16:11:00 Center Heart Rate 2015-12-08 [facility] [place] [facility] 16:11:00 Center Weight 2015-12-08 [facility] [place] [facility] 16:09:00 Center BMI Calculated 2015-12-08 [facility] [place] [facility] 16:09:00 Center Height 2015-12-08 154.94 cm [facility] [place] [facility] 16:09:00 Center Systolic (mm Hg) 2015-12-06 [facility] [place] Me dical 05:00:00 Center Diastolic (mm Hg) 2015-12-06 [facility] [place] M edical 05:00:00 Center Respitory Rate 2015-12-06 [facility] [place] [facility] 05:00:00 Center Temperature Oral 2015-12-06 97.4 F [facility] [place] Me [facility]ical (F) 05:00:00 Center Heart Rate 2015-12-06 [facility] [place] [facility] 05:00:00 Center Systolic (mm Hg) 2015-12-05 [facility] [place] Me d[facility] 20:35:00 Center Diastolic (mm Hg) 2015-12-05 [place] M edical 20:35:00 Center Respitory Rate 2015-12-05 [facility] [place] [facility] 20:35:00 Center Temperature Oral 2015-12-05 97.9 F [facility] [place] Me dical (F) 20:35:00 Center Heart Rate 2015-12-05 [facility] [place] [facility] 20:35:00 Center Respitory Rate 2015-12-05 [place] [facility] 14:55:00 Center Systolic (mm Hg) 2015-12-05 [facility] [place] Me [facility] 14:55:00 Center Diastolic (mm Hg) 2015-12-05 [facility] M edical 14:55:00 Center Heart Rate 2015-12-05 [facility] [place] [facility] 14:55:00 Center Temperature Oral 2015-12-05 98.6 F [facility] [place] Me dical (F) 14:55:00 Center Weight 2015-12-04 [facility] [place] [facility] 14:22:00 Center BMI Calculated 2015-12-04 [place] [facility] 14:22:00 Center Height 2015-12-04 154.94 cm [place] [facility] 14:22:00 Center Respitory Rate 2015-12-01 [place] [facility] 07:59:00 Center Systolic (mm Hg) 2015-12-01 [facility] [place] Me [facility] 07:59:00 Center Diastolic (mm Hg) 2015-12-01 [facility] M edical 07:59:00 Center BMI Calculated 2015-12-01 [facility] [place] [facility] 07:52:00 Center Weight 2015-12-01 [place] [facility] 07:52:00 Center Height 2015-12-01 154.94 cm [place] [facility] 07:52:00 Center Heart Rate 2015-09-20 [facility] [place] [facility] 03:25:00 Center Systolic (mm Hg) 2015-09-20 [facility] [place] [facility] 03:25:00 Center Diastolic (mm Hg) 2015-09-20 [facility] M edical 03:25:00 Center BMI Calculated 2015-09-20 [facility] [place] [facility] 03:18:00 Center Weight 2015-09-20 [facility] [place] [facility] 03:18:00 Center Height 2015-09-20 154.94 cm [facility] [place] [facility] 03:18:00 Center Procedures Procedure Date / Time Performing Clinician Source Performed EKG w/Rhythm Strip 2020-01-21 00:00:00 [facility] Physicians [QL] URINALYSIS, COMPLETE 2020-01-21 00:00:00 [facility] Physicians [Q] GLUCOSE, GESTATIONAL 2020-01-21 00:00:00 [facility] SCREEN ([id number] CUTOFF Physicia ns [QL] CBC (INCLUDES 2020-01-21 00:00:00 [facility] DIFF/PLT) Physicians [QL] CULTURE, URINE, 2020-01-21 00:00:00 [facility] ROUTINE Physicians . [facility]irm VPIII 2020-01-15 00:00:00 [facility] Physicians URINALYSIS 2019-12-15 06:02:00 Baljit Lares [facility] CBC WITH DIFFERENTIAL 2019-12-15 04:44:00 Mg Stallworth [facility] PROTHROMBIN TIME / INR 2019-12-15 04:44:00 Basim [facility] ACTIVATED PARTIAL THRMPLAS 2019-12-15 04:44:00 Mg Stallworth [facility] BENJAMIN LIPASE 2019-12-15 04:44:00 Basim [facility] TROPONIN I 2019-12-15 04:44:00 Basim [facility] COMP. METABOLIC PANEL 2019-12-15 04:44:00 Mg Stallworth [facility] ([id number]) CORONAVIRUS COVID-19 2019-12-15 04:44:00 Mg Stallworth [facility] alth TESTING NOTICE OF PRIVACY 2019-12-15 02:11:25 [facility] PRACTICES [place] CONSENT/REFUSAL FOR 2019-12-15 02:08:11 [facility] DIAGNOSIS AND TREATMENT [place] [Q] [id number] 2019-11-30 00:00:00 [facility] DEHYDROGENASE, QUANT. Physicians [Q] HEMOGLOBINOPATHY 2019-11-30 00:00:00 [facility] EVALUATION Physicians [Q] HIV AB, HIV 1/2, EIA, 2019-11-30 00:00:00 [facility] WITH REFLEXES Physicians [Q] OBSTETRIC PANEL 2019-11-30 00:00:00 [facility] Physicians [Q] TREPONEMA PALLIDUM AB, 2019-11-30 00:00[facility]00 [facility] Physician s [QL] CULTURE, URINE, 2019-11-30 00:00:00 [facility] ROUTINE Physicians [QL] URINALYSIS, COMPLETE 2019-11-30 00:00:00 [facility] [Q] IRON, TIBC AND 2019-11-30 00:00:00 [facility] FERRITIN PANEL Physicians [QL] FOLATE, SERUM 2019-11-30 00:00:00 [facility] Physicians . [facility] - GC/Chlamydia 2019-11-30 00:00:00 [facility] . [facility]irm VPIII 2019-11-30 00:00:00 [facility] ([facility] Panel[facility] Physicians PELVIS > 14 2019-11-27 20:05:58 Suman Sun [facility] [[email or web address]] Health WEEKS ASSIGNMENT OF BENEFITS 2019-11-16 19:34:05 Doctor Unassigned, [facility] [place] FLU VACC ([id number]), 6+ 2019-11-16 19:11:55 Carolin Bailon [facility] [[email or web address]] Health MONTHS, IM, QUAD MEDICATION CORRESPONDENCE 2019-10-28 12:01:00 Doctor Unassigned, [facility] [place] POCT URINALYSIS 2019-10-23 01:04:00 Lyubov Stiles [facility] alth US FIRST 2019-09-16 20:37:56 Mg Stallworth [facility] th TRIMESTER LESS THAN 14 WEEKS WITH TRANSVAGINAL HEPATIC FUNCTION PANEL 2019-09-16 18:48:00 Mg Stallworth [facility] ([id number]) (ALB,T.PRO,BILI T,BU/BC,ALT,AST,ALK PHOS) BASIC METABOLIC PANEL (NA, 2019-09-16 18:48:00 Mg Stallworth [facility] K, CL, CO2, GLUCOSE, BUN, CREATININE, CA) TOTAL BETA HCG ASSAY 2019-09-16 18:48:00 Mg Stallworth [facility] alth HB ABO GROUPING 2019-09-16 18:48:00 Basim Mg [facility] POCT TEST 2019-09-16 18:35:00 [facility] RUBELLA SCREEN IGG 2019-09-04 04:05:00 Lyubov Stiles [facility] VZV ANTIBODY SCREEN 2019-09-04 04:05:00 Lyubov Stiles [facility] B Health HEPATITIS B SURFACE 2019-09-04 04:05:00 Lyubov Stiles [facility] B Health ANTIGEN GC & CHLAMYDIA AMPLIFIED 2019-09-04 04:05:00 Lyubov Stiles [facility] ASSAY PAP SMEAR-LIQUID BASED-CP 2019-09-04 04:05:00 Lyubov Stiles [facility] HIV 1/2 AG-AB WITH REFLEX 2019-09-04 04:03:00 Lyubov Stiles [facility] GALV ONLY - SYPHILIS 2019-09-04 04:03:00 Lyubov Stiles [facility] IGG/IGM POCT URINALYSIS W/O 2019-09-04 02:42:00 Lyubov Stiles [facility] B Health SPECIFIC GRAVITY Tonsillectomy 2002-08-26 00:00:00 [facility] Appendectomy 1999-08-26 00:00:00 [facility] Cystectomy 1992-08-26 00:00:00 [facility] D&C - Dilatation and [facility] dical curettage Center Plan of Care Planned Activity Planned Date Details Comments Source Diagnostic Test 2020-01-15 . [facility] Pending 00:00:00 VPIII (BV Panel) Physicians [code = . [facility] (BV Panel)] Future Scheduled Test [facility] 48063-3] [facility] Future Scheduled Test Screening for [facility] [place] malignant neoplasm [facility] (procedure) [code = 080871071] Future Scheduled Test [facility] SPECIFIC GRAVITY [facility] [code = 07958] Future Scheduled Test Plan of Care [code [facility] = 31128-5] [facility] Future Scheduled Test Plan of Care [code [facility] [place] = 91045-6] [facility] Future Scheduled Test FRAGILE X [code = M [facility] [place] 66937-3] [facility] Future Scheduled Test Plan of Care [code [facility] = 86421-9] [facility] Future Scheduled Test Plan of Care [code [facility] = 61236-4] [facility] Future Scheduled Test Plan of Care [code [facility] [place] = 50619-0] [facility] Future Scheduled Test Plan of Care [code [facility] [place] = 08718-2] [facility] Future Scheduled Test Plan of Care [code [facility] = 07585-0] [facility] Future Scheduled Test Plan of Care [code [facility] = 12289-7] [facility] Future Scheduled Test Plan of Care [code [facility] = 89362-4] [facility] Future Scheduled Test Plan of Care [code [facility] = 91766-3] [facility] Future Scheduled Test Plan of Care [code [facility] = 78170-5] [facility] Future Scheduled Test Plan of Care [code [facility] [place] = 87299-5] [facility] Future Scheduled Test Plan of Care [code [facility] = 13031-9] [facility] Future Scheduled Test Plan of Care [code [facility] = 11028-3] [facility] Future Scheduled Test ALPHA Memori [facility]OTE[facility] L SER [code = 89480-8] Future Scheduled Test EKG-12 LEAD ROUTINE [facility] [place] [code = 4135] [facility] Future Scheduled Test ALPHA [facility] [place] FETOPROTEIN-[facility] L SER [code = 39343-3] Future Scheduled Test ALPHA [facility] [place] FETOPROTEIN-[facility] SER [code = 33816-9] Future Scheduled Test Plan of Care [code [facility] = 28355-9] [facility] Future Scheduled Test Plan of Care [code [facility] = 46602-6] [facility] Future Scheduled Test Plan of Care [code [facility] [place] = 77375-9] [facility] Future Scheduled Test URINE CULTURE [code [facility] [place] = 630-4] [facility] Future Scheduled Test Plan of Care [code [facility] = 01456-4] [facility] Future Scheduled Test Plan of Care [code [facility] [place] = 86078-1] [facility] Future Scheduled Test Plan of Care [code [facility] = 70379-5] [facility] Future Scheduled Test URINE CULTURE [code [facility] = 630-4] [facility] Future Scheduled Test GC & CHLAMYDIA Jere rial Jez AMPLIFIED ASSAY [facility] [code = 09542-9] Future Scheduled Test GC & CHLAMYDIA Jere rial Jez AMPLIFIED ASSAY [facility] spital [code = 11646-2] Future Scheduled Test Plan of Care [code [facility] = 76242-3] [facility] Future Scheduled Test Plan of Care [code [facility] [place] = 49828-8] [facility] Future Scheduled Test Plan of Care [code [facility] = 07177-2] [facility] Future Scheduled Test Plan of Care [code [facility] = 31034-9] [facility] Future Scheduled Test Plan of Care [code [facility] = 67174-6] [facility] Future Scheduled Test Plan of Care [code [facility] = 84074-7] [facility] Future Scheduled Test Plan of Care [code [facility] = 54539-3] [facility] Future Scheduled Test Plan of Care [code [facility] = 83036-0] [facility] Future Scheduled Test Glucose 1 Hour Post [facility] Prandial [code = [facility] ospital 87924-3] Future Scheduled Test Plan of Care [code [facility] = 85026-1] [facility] Future Scheduled Test Plan of Care [code [facility] = 66270-9] [facility] Future Scheduled Test Plan of Care [code [facility] = 81103-5] [facility] Future Scheduled Test LAB ONLY PAP [facility] [place] SMEAR-LIQUID BASED [facility] [code = 24725-3] Future Scheduled Test Plan of Care [code [facility] [place] = 66405-6] [facility] Future Scheduled Test FLU VACC [facility] [place] ([phone]), 6+ [facility], IM, QUAD [code = 59791] Future Scheduled Test URINE CULTURE [code [facility] [place] = 630-4] [facility] Future Scheduled Test LAB ONLY PAP [facility] [place] SMEAR-LIQUID BASED [facility] [code = 19039-6] Future Scheduled Test URINE CULTURE [code [facility] = 630-4] [facility] Future Scheduled Test Plan of Care [code [facility] = 57475-5] [facility] Future Scheduled Test Screening for Memor ial [facility] malignant neoplasm [facility] cervix (procedure) [code = 636120386] Future Appointment 2020-03-09 Mindy VALE. [facility] 11:30:00 Bernard DE DIOS Future Appointment 2020-02-12 ROOM3 MOLD RUNNER, [facility] 13:00:00 Physicians Future Appointment 2020-02-04 Mesfin ASENCIO [facility] 13:30:00 Bernard ECKERT Encounters Start End Encounter Admission Attending Care Care Encounter Source Date/Time Date/Time Type Type Clinicians Facility Department ID 2020-01-21 2020-01-21 Appointmen KATIE [facility] Obstetrics [id number] Univers 15:30:00 15:30:00 t; FITZ, and ity of KATIE D.OClair Gynecology Mick s FITZ, Contin[facility] Physi ci D[facility]O. Clinic ans 2020-01-15 2020-01-15 Appointmen MOLD RUNNER, [facility] [id number] Univers 13:00:00 13:00:00 t; MOLD RUNNER, ROOM4 ity of ROOM4 [place] Physici ans 2020-01-14 2020-01-14 Appointmen CATE [facility] Obstetrics [id number] Univers 13:45:00 13:45:00 t; Mesfin LIN and it y of CATE, Gynecology Mick s RILEY, Continuity Physi ci M.D. Clinic ans 2020-01-13 2020-01-13 Appointmen TERRELL [facility] Psychiatry [id number] Univers 08:45:00 08:45:00 t; BURKE, Aditi i ty summer TEJADA M.D. [facility] [place] [facility] Physic i M.D. ans 2019-12-29 2019-12-29 [facility] [id number] [facility] 00:00:00 00:00:00 Management Pediatric H ealth [facility] 2019-12-29 2019-12-29 Telephone MHIEALT [facility] [id number] [facility] 00:00:00 00:00:00 Pediatric Heal th [facility] 2019-12-29 2019-12-29 Case MILTON BarkerIT 1.2.300.887 [id number] 00:00:00 00:00:00 Management [facility] 350.1.13.10 [facility] 4.2.7.2.686 [id number] 161 2019-12-29 2019-12-29 Telephone Shahid Arredondo UNIVERSIT 1.2.840.11 4 [id number] 00:00:00 00:00:00 W Y HEALTH 350.1.13.10 CLINICS 4.2.7.2.686 [id number] 161 2019-12-29 2019-12-29 Telephone Shahid Arredondo [facility] 1.2.840.11 4 [id number] 00:00:00 00:00:00 W Y HEALTH 350.1.13.10 CLINICS 4.2.7.2.686 [id number] 161 2019-12-29 2019-12-29 Case Lucero, UNIVERSIT 1.2.828.942 [id number] 00:00:00 00:00:00 Management [facility] HEALTH 350.1.13.10 CLINICS 4.2.7.2.686 [id number] 161 2019-12-28 2019-12-28 Appointmen ANGELO [facility] UTP [id number] Univers 13:30:00 13:30:00 t; Tiffany GREENBERG M.D. [place] Mando GREENBERG i, M.D. ans 2019-12-28 2019-12-28 Appointmen MOLD RUNNER, [facility] [id number] Univers 10:45:00 10:45:00 t; MOLD RUNNER, ROOM3 ity of ROOM3 [place] Physic ans 2019-12-28 2019-12-28 Appointmen OB/MD, [facility] [id number] Univers 10:00:00 10:00:00 t; OB/MD, ity of [facility] Physic ans 2019-12-24 2019-12-24 Telephone IEALT [facility] Health [id number] [id number] [facility] 00:00:00 00:00:00 Pediatric [facility] 2019-12-24 2019-12-24 Telephone Shahid Arredondo [facility] .2.840.11 4 [id number] 00:00:00 00:00:00 W Y HEALTH 350.1.13.10 CLINICS 4.2.7.2.686 [id number] 161 2019-12-24 2019-12-24 Telephone Shahid Arredondo UNIVERS 1.2.840.11 4 [id number] 00:00:00 00:00:00 W HEALTH 350.1.13.10 CLINICS 4.2.7.2.686 [id number] [facility] 2019-12-22 2019-12-22 Abstract MHIEALT [facility] [id number] [facility] 00:00:00 00:00:00 [facility] ED 2019-12-22 2019-12-22 Abstract Akinsipe, LAMB 1.2.840.114 [id number] 00:00:00 00:00:00 Lyubov C MOLD RUNNER 350.1.13.10 [facility] 4.2.7.2.686 MATERNAL [id number] & CHILD 107 [facility] 2019-12-22 2019-12-22 Abstract Akinsipe, LAMB 1.2.840.114 [id number] 00:00:00 00:00:00 Lyubov C MOLD RUN[place] 350.1.13.10 [facility] 4.2.7.2.686 MATERNAL [id number] & CHILD 107 [facility] 2019-12-19 2019-12-19 Refill MHIEALT [facility] [id number] [facility] 00:00:00 00:00:00 [facility] 2019-12-19 2019-12-19 Refill [place] Carolin LAMB 1.2.950.065 [id number] 00:00:00 00:00:00 Leo Rai 350.1.13.10 [place] 4.2.7.2.686 Professio [phone] [address] 2019-12-19 2019-12-19 Refill Carolin Bailon LAMB 1.2.470.562 [id number] 00:00:00 00:00:00 Leo Diazton 350.1.13.10 [place] 4.2.7.2.686 Professio [phone] [address] 2019-12-18 2019-12-18 Nurse Research [facility] 750 [id number] [facility] 18:54:31 19:54:31 Visit [facility] 2019-12-18 2019-12-18 Nurse Research Suzy, [facility] 1.2.840.114 [id number] 13:54:31 14:54:31 Visit Adc keila [place] 350.1.13.10 [place] 4.2.7.2.686 Professio [phone] [address] 2019-12-18 2019-12-18 Nurse Research Ultrasound, [facility] 1.2.840.114 [id number] 13:54:31 14:54:31 Visit Adc Clinton Rai 350.1.13.10 [place] 4.2.7.2.686 Professio [phone] [address] 2019-12-17 2019-12-17 Refill MHIEALT [facility] [id number] [facility] 00:00:00 00:00:00 [facility] 2019-12-17 2019-12-17 Refill Carolin Bailon [facility] 1.2.945.810 [id number] 00:00:00 00:00:00 Cam Cecelia 350.1.13.10 [place] 4.2.7.2.686 Professio [phone] [address] 2019-12-17 2019-12-17 Refill Carolin [place]on LAM[facility] 1.2.148.187 [id number] 00:00:00 00:00:00 Cam Cecelia 350.1.13.10 [place] 4.2.7.2.686 Professio [phone] [address] 2019-12-14 2019-12-15 Emergency MHIEALT [facility] [id number] [facility] 23:22:18 02:48:00 [facility] 2019-12-14 2019-12-14 Emergency Yarime, [facility] 1.2.938.250 [id number] 1227 18:22:18 21:48:00 Baljit Rai 350.1.13.10 [place] 4.2.7.2.686 [place] [id number] 2019-12-14 2019-12-14 Emergency Yarime, LAMB 1.2.946.182 [id number] 18:22:18 21:48:00 Baljit Rai 350.1.13.10 [place] 4.2.7.2.686 [place] [id number] 084 2019-12-09 2019-12-09 Appointmen TERRELL [facility] [id number] Univers 10:30:00 10:30:00 t; BURKE, Outpatient i ty of [place] TE[facility]ADA [facility] [place] Physic haylee Toure [facility] 2019-12-08 2019-12-08 Telephone MHIEALT [facility] Health 7519 7305 [facility] 00:00:00 00:00:00 [facility] 2019-12-08 2019-12-08 Telephone Carolin Bailon [facility] 1.2.840.114 75 00:00:00 00:00:00 [facility] 350.1.13.10 [place] 4.2.7.2.686 Professio [phone] [address] 2019-12-08 2019-12-08 Telephone Carolin Bailon [facility] 1.2.840.114 75 00:00:00 00:00:00 Cam [place] 350.1.13.10 [place] 4.2.7.2.686 Professio [phone] [address] 2019-12-04 2019-12-04 Telemedici MHIEAKT [facility] Health 750 [id number] [facility] 12:16:52 12:46:52 ne [facility] 2019-12-04 2019-12-04 Telemedici Fellow, [facility] UNIVERSIT 1.2.840.1 14 [id number] 07:16:52 07:46:52 ne Visit [facility] HEALTH 350.1.13.10 [facility] CLINICS 4.2.7.2.686 [id number] 113 2019-12-04 2019-12-04 Telemedici Fellow, [facility] UNIVERSIT 1.2.840.1 14 [id number] 07:16:52 07:46:52 ne Visit [facility] HEALTH 350.1.13.10 [facility] CLINICS 4.2.7.2.686 [id number] 113 2019-12-04 2019-12-04 Abstract MHIEALT [facility] [id number] [facility] 00:00:00 00:00:00 [facility] Health [place] 2019-12-04 2019-12-04 Abstract Akinsipe, [facility] 1.2.840.114 [id number] 00:00:00 00:00:00 Lyubov Panchal MOLD RUN[place] 350.1.13.10 REGIONAL 4.2.7.2.686 MATERNAL [id number] & CHILD 107 [facility] 2019-12-04 2019-12-04 Abstract Akinsipe, [facility] 1.2.840.114 [id number] [id number] 00:00:00 00:00:00 Lyubov C M[place] RUN[place] 350.1.13.10 REGIONAL 4.2.7.2.686 MATERNAL [id number] & CHILD 107 [facility] 2019-12-02 2019-12-02 Nurse Research MHIEALT [facility] Health 751 [id number] [facility] 15:11:12 15:41:12 [facility] 2019-12-02 2019-12-02 Telemedici [facility] 750 [id number] [facility] 12:48:49 13:03:49 ne Visit [facility] 2019-12-02 2019-12-02 Nurse Research Ultrasound, [facility] 1.2.840.114 [id number] 10:11:12 10:41:12 Visit Ang-Mfm [place] 350.1.13.10 REGIONAL 4.2.7.2.686 MATERNAL [id number] & CHILD 369 [facility] 2019-12-02 2019-12-02 Nurse Research Ultrasound, [facility] 1.2.840.114 [id number] 10:11:12 10:41:12 Visit Ang-Mfm [place] 350.1.13.10 REGIONAL 4.2.7.2.686 MATERNAL [id number] & CHILD 369 [facility] 2019-12-02 2019-12-02 Telemedici Consults, [facility] 1.2.840.114 7 [id number] 07:48:49 08:03:49 ne Visit Mfm Pinky Pn [place] 350.1.13.10 [facility]etics REGIONAL 4.2.7.2.686 MATERNAL [id number] & CHILD 109 [facility] 2019-12-02 2019-12-02 Telemedici Consults, [facility] 1.2.840.114 [id number] 07:48:49 08:03:49 ne Visit Mfm Pinky Pn [place] 350.1.13.10 Genetics REGIONAL 4.2.7.2.686 MATERNAL [id number] & CHILD [address] [place] [address] 2019-11-30 2019-11-30 Appointmen AMY HURT Obstetrics [id number] [facility] 14:00:00 14:00:00 tVinicio AC M.D. and it y of Alberto HURT Continuity Physi ci M.D. Clinic ans 2019-11-27 2019-11-27 Emergency MHIEALT [facility] [id number] [facility] 14:28:09 15:48:00 [facility] Department 2019-11-27 2019-11-27 Emergency Suman Sun [facility] 1.2.840.114 [id number] 09:28:09 10:48:00 T [place] 350.1.13.10 [place] 4.2.7.2.686 [place] [id number] 2019-11-27 2019-11-27 Emergency Suman Sun [facility] 1.2.840.114 [id number] 09:28:09 10:48:00 T [place] 350.1.13.10 [place] 4.2.7.2.686 [place] [id number] [facility] 2019-11-24 2019-11-24 Telephone MHIEALT [facility] [id number] [facility] 00:00:00 00:00:00 [facility] 2019-11-24 2019-11-24 Telephone Carolin Bailon [facility] 1.2.840.114 [id number] 00:00:00 00:00:00 Cam [place] 350.1.13.10 [place] 4.2.7.2.686 [phone] [address] 2019-11-24 2019-11-24 Telephone Carolin Bailon [facility] 1.2.840.114 [id number] 00:00:00 00:00:00 Cam [place] 350.1.13.10 [place] 4.2.7.2.686 [facility] [phone] [address] 2019-11-23 2019-11-23 Telephone MHIEALT [facility] [id number] [facility] 00:00:00 00:00:00 [facility] 2019-11-23 2019-11-23 Telephone Carolin Bailon LAFERNANDO 1.2.840.114 75 [id number] 00:00:00 00:00:00 Cam [place] 350.1.13.10 [place] 4.2.7.2.686 Professio [phone] [address] 2019-11-23 2019-11-23 Telephone Carolin Bailon [facility] 1.2.840.114 [id number] 00:00:00 00:00:00 Cam [place] 350.1.13.10 [place] 4.2.7.2.686 Professio [phone] [address] 2019-11-18 2019-11-18 Telephone IEAKT [facility] Health 7494 [id number] [facility] 00:00:00 00:00:00 [facility] 2019-11-18 2019-11-18 Telephone Carolin Bailon [facility] 1.2.840.114 [id number] 00:00:00 00:00:00 Cam [place] 350.1.13.10 [place] 4.2.7.2.686 Professio [phone] [address] 2019-11-16 2019-11-16 Nurse Research MHIEALT [facility] Health 749 [id number] [facility] 14:31:47 14:46:47 Visit Adela desouza [facility] Phlebotomy [facility] 2019-11-16 2019-11-16 Initial [facility] [id number] [facility] 12:53:29 14:11:59 Women's Healt h Visit [facility] 2019-11-16 2019-11-16 Nurse Research Bebe Maldonado [facility] 1.2.840.114 [id number] 09:31:47 09:46:47 Visit Lab Main [place] 350.1.13.10 [place] 4.2.7.2.686 Professio [phone] [address] 2019-11-16 2019-11-16 Initial Carolin Bailon LAFERNANDO 1.2.724.693 [id number] 07:53:29 09:11:59 Cam [place] 350.1.13.10 Visit [place] 4.2.7.2.686 Professio [phone] [address] 2019-11-16 2019-11-16 Initial Carolin Bailon [facility] 1.2.414.879 [id number] [id number] 07:53:29 09:11:59 Cam [place] 350.1.13.10 Visit [place] 4.2.7.2.686 Professio [id number] [address] 2019-11-16 2019-11-16 Initial Carolin Bailon [facility] 1.2.193.078 [id number] [id number] 07:53:29 09:11:59 Cam [place] 350.1.13.10 Visit [place] 4.2.7.2.686 Professio [phone] [address] 2019-11-16 2019-11-16 Orders [facility] [id number] U [facility]MB 00:00:00 00:00:00 Only [facility] 2019-11-16 2019-11-16 Orders Doctor LOUISE 1.2.840.114 [id number] 00:00:00 00:00:00 Only Unassigned, ADRIANO 350.1.13.10 [place] [address]686 [id number] 009 2019-11-12 2019-11-12 Telephone [facility] [id number] [id number] [facility] 00:00:00 00:00:00 [facility] ED 2019-11-12 2019-11-12 Telephone [facility] 1.2.840.114 [id number] 00:00:00 00:00:00 Lyubov Panchal [place] 350.1.13.10 [facility] 4.2.7.2.686 MATERNAL [id number] & CHILD 107 [facility] 2019-10-30 2019-10-30 Telephone [facility] 7464 0459 [facility] 00:00:00 00:00:00 [facility] ED 2019-10-30 2019-10-30 Telephone [facility] 1.2.840.114 [id number] 00:00:00 00:00:00 Cookie Cochran [place] 350.1.13.10 [facility] 4.2.7.2.686 MATERNAL [id number] & CHILD 107 [facility] 2019-10-28 2019-10-28 Orders [facility] [id number] U [facility]MB 00:00:00 00:00:00 Only Health 2019-10-28 2019-10-28 Orders Doctor LOUISE 1.2.840.114 [id number] 00:00:00 00:00:00 Only Unassigned, ADRIANO 350.1.13.10 [place] [facility] 4.2.7.2.686 [id number] 009 2019-10-22 2019-10-22 Routine [facility] [id number] [facility] 18:58:53 19:21:27 RMCHP- Healt h Visit [place] 2019-10-22 2019-10-22 Routine [facility] 1.2.611.622 [id number] 12:58:53 13:21:27 Cookie N [place] 350.1.13.10 Visit REGIONAL 4.2.7.2.686 MATERNAL [phone] & CHILD 107 [facility] 2019-10-22 2019-10-22 Routine [facility] 1.2.802.858 [id number] 12:58:53 13:21:27 Cookie N [place] 350.1.13.10 Visit REGIONAL 4.2.7.2.686 MATERNAL [id number] & CHILD 107 [facility] 2019-10-07 2019-10-07 Telephone IEAKT [facility] [id number] [facility] 00:00:00 00:00:00 [facility] ED 2019-10-07 2019-10-07 Telephone [facility] 1.2.840.114 [id number] 00:00:00 00:00:00 Cookie N [place] 350.1.13.10 REGIONAL 4.2.7.2.686 MATERNAL [id number] & CHILD 107 [facility] 2019-10-06 2019-10-06 Abstract [facility] [id number] 061 [facility] 00:00:00 00:00:00 [facility] ED 2019-10-06 2019-10-06 Abstract [facility] 1.2.840.114 [id number] [id number] 00:00:00 00:00:00 Lyubov C [place] 350.1.13.10 REGIONAL 4.2.7.2.686 MATERNAL [id number] & CHILD 107 [facility] 2019-10-01 2019-10-01 Routine MHIEALT [facility] Health [id number] [facility] 16:25:41 17:17:13 RMCHP- Healt h Visit [place] 2019-10-01 2019-10-01 Routine Risk, [facility] 1.2.840.114 [id number] 10:25:41 11:17:13 Ang-Rmchp-N [place] 350.1.13.10 Visit p/High REGIONAL 4.2.7.2.686 MATERNAL [id number] & CHILD 107 [facility] 2019-09-25 2019-09-25 Telephone MHIEALT [facility] Health 7396 [id number] [facility] 00:00:00 00:00:00 [facility] 2019-09-25 2019-09-25 Telephone Akinsipe, [facility] 1.2.840.114 [id number] 00:00:00 00:00:00 Lyubov C [place] 350.1.13.10 REGIONAL 4.2.7.2.686 MATERNAL [id number] & CHILD 107 [facility] 2019-09-21 2019-09-21 Telephone MHIEALT [facility] Health 7383 [id number] [facility] 00:00:00 00:00:00 RMCHP- [facility] 2019-09-21 2019-09-21 Telephone Risk, [facility] 1.2.503.705 [id number] [id number] 00:00:00 00:00:00 Ang-Rmchp-N [place] 350.1.13.10 p/High REGIONAL 4.2.7.2.686 MATERNAL [id number] & CHILD 107 [facility] 2019-09-21 2019-09-21 Telephone Risk, [facility] 1.2.851.815 [id number] [id number] 00:00:00 00:00:00 Ang-Rmchp-N [place] 350.1.13.10 p/High REGIONAL 4.2.7.2.686 MATERNAL [id number] & CHILD 107 [facility] 2019-09-16 2019-09-16 Emergency MHIEALT [facility] 7374 [id number] [place] 12:23:27 15:29:00 [facility] 2019-09-16 2019-09-16 Emergency St[place], [facility] 1.2.889.210 [id number] 06:23:27 09:29:00 Mg Rai 350.1.13.10 [place] 4.2.7.2.686 [place] [id number] 084 2019-09-16 2019-09-16 Orders MHIEALT [facility] [id number] U TMB 00:00:00 00:00:00 Only Health 2019-09-16 2019-09-16 Orders Doctor LOUISE 1.2.840.114 [id number] 00:00:00 00:00:00 Only Unassigned, ADRIANO 350.1.13.10 [place] [facility] 4.2.7.2.686 [id number] 009 2019-09-10 2019-09-10 Nurse Research MHIEALT [facility] [id number] [facility] 14:27:30 14:37:34 Visit [facility] ED 2019-09-10 2019-09-10 Nurse Research Lab, [facility] 1.2.840.114 [id number] 08:27:30 08:42:30 Visit [facility] [place] 350.1.13.10 [facility] 4.2.7.2.686 MATERNAL [id number] & CHILD 107 [facility] 2019-09-10 2019-09-10 Nurse Research Lab, [facility] 1.2.840.114 [id number] 08:27:30 08:37:34 Visit [facility] MOLD RUNNER 350.1.13.10 [facility] 4.2.7.2.686 MATERNAL [id number] & CHILD 107 [facility] 2019-09-10 2019-09-10 Telephone MHIEALT [facility] [id number] [facility] 00:00:00 00:00:00 [facility] ED 2019-09-10 2019-09-10 Telephone Akinsi, [facility] 1.2.840.114 [id number] 00:00:00 00:00:00 Lyubov C [place] 350.1.13.10 REGIONAL 4.2.7.2.686 MATERNAL [id number] & CHILD 107 [facility] 2019-09-09 2019-09-09 Emergency MHIEALT [facility] [id number] [facility] 20:54:07 22:49:00 [facility] Department 2019-09-09 2019-09-09 Emergency Saxena, [facility] 1.2.703.765 [id number] 14:54:07 16:49:00 Mona Rai 350.1.13.10 [place] 4.2.7.2.686 [place] [id number] 084 2019-09-09 2019-09-09 Nurse MHIEALT ACCESS [id number] U [facility] 00:00:00 00:00:00 Triage [facility] 2019-09-09 2019-09-09 Orders MHIEALT [facility] [id number] U TMB 00:00:00 00:00:00 Only [facility] 2019-09-09 2019-09-09 Nurse LOUISE Rahman 1.2.840.114 [id number] 00:00:00 00:00:00 Triage Elizabeth [place] 350.1.13.10 [facility] 4.2.7.2.686 [id number] 019 2019-09-09 2019-09-09 Orders Doctor LOUISE 1.2.840.114 [id number] 00:00:00 00:00:00 Only UnassignedADRIANO 350.1.13.10 [place] [facility] 4.2.7.2.686 [id number] [id number] 2019-09-03 2019-09-03 Initial MHIEALT [facility] [id number] [facility] 19:41:22 21:43:50 RMCHP- Healt h Visit [place] 2019-09-03 2019-09-03 Initial Akinsipe, [facility] 1.2.179.779 [id number] 13:41:22 15:43:50 Lyubov C [place] 350.1.13.10 Visit [facility] 4.2.7.2.686 MATERNAL [id number] & CHILD [address] [place] [address] 2017-08-23 2017-08-[address] [facility] [id number] MH 05:10:00 01:40:00 jad Canela [facility] 2017-08-22 2017-08-23 Outpatient RACHEL Lentz [facility] [id number] 23:10:00 19:40:00 Keiko Castro 2017-08-02 2017-08-[address] [facility] [id number] MH 18:03:00 21:41:00 [place] 04 [facility] 2017-08-02 2017-08-02 Outpatient Tyree Harris [facility] [id number] 12:03:00 15:41:00 Johann 04 2015-12-08 2015-12-[address] [facility] [id number] MH 16:01:00 17:01:00 Observatio Jez 03 Wilbert as n Patient Hospital [facility] [place] 2015-12-08 2015-12-08 Outpatient Gustavo [facility] [id number] 11:01:00 12:01:00 Suneet 03 2015-12-04 2015-12-[address] [facility] [id number] MH 13:26:00 01:35:00 [place] 02 [facility] 2015-12-04 2015-12-06 Outpatient Lucia [facility] [id number] 08:26:00 20:35:00 alSoy S 2015-12-01 2015-12-[address] [facility] [id number] MH 07:51:00 12:00:00 Observatio Jez 01 Wilbert as n Patient [facility] 2015-12-01 2015-12-01 Outpatient Mallory [facility] [id number] 02:51:00 07:00:00 Louise Fishman 2015-11-03 2015-11-03 Appointmen MFM, UTP Obstetrics [id number] Univers 09:00:00 09:00:00 t; MFM, FELLOW2 and ity of FELLOW2 Gynecology [facility] ans 2015-09-20 2015-09-[address] [facility] [id number] MH 03:17:00 05:43:00 Observatio [place] 00 Wilbert as n Patient [facility] 2015-09-19 2015-09-19 Outpatient [facility] [id number] 21:17:00 23:43:00 Louise Fishman 00 Results Test Description Test Time Test Comments Results Result Comments Source . [facility] - Affirm VPIII (BV Panel) 2020-01-15 00:00:00 Test Item Value Reference Range Interpretation Comme nts Case (test code = Case) Click ImageLink button for report. N [facility] ArmiawwipfXNWSZRBTZL8406-74-15 01:37:005.0[facility] Health NYQBKEVXJD3788-02-50 01:37:001.026UT SdymrbATYQNNELEE0135-83-82 01:37:002UT PcjgtcPCBKGQMYUX6882-86-35 01:37:001UT TwrnihFSCDUQCHGU4836-02-64 01:37:009 [facility] SdrdijfGEQ8761-30-85 00:24:0028UT HealthPROTHROMBIN TIME / [id number] 00:24:0012.4[facility] HealthPROTHROMBIN TIME / EMZ2360-01-30 00:24:001.0[facility] Health CBC WITH FHOTHRPNEUFU7292-40-94 00:19:0015.92UT HealthCBC WITH DIFFERENTIAL 2019-12-15 00:19:004.10[facility] HealthCBC WITH RTTWMGUOXORB7886-94-80 00:19:0012.7 [facility] HealthCBC WITH GNRVQWSSVLUH6524-22-35 00:19:0036.3[facility] HealthCBC WITH UUKPCMGELHTX4426-29-11 00:19:0088.5[facility] HealthCBC WITH MLGDSZAPOION5051-40-44 00:19:00 Test Item Value Reference Range Interpretation Comments <td 31.0 pg 25.9-32.8 ID="[id number]">[facility]</td ><td>31.0</td><td>25.9 - 32.8 pg</td><td>[facility]</td><td ID="[id number]"/> (test code = <td ID="[id number]">[facility]< /td><td>31.0</td><td>25.9 - 32.8 pg</td><td>[facility]</td><td ID="[id number]"/>) [facility] HealthCBC WITH FMSNZHYLWUYQ7086-48-08 00:19:0035.0[facility] WITH OVHQJOPSLJNQ9400-96-26 00:19:0042.7[facility] WITH POLURVLECKUA2200-27-68 00:19:0013.2[facility] WITH OLFVAQHYCRBY3422-18-72 00:19:21642QSLZ [facility] WITH QQDFDJIIGXOP7621-29-08 00:19:0011.2[facility] WITH DIFFERENTIAL 2019-12-15 00:19:000.0[facility] WITH FTVWMCWUDTXP6760-26-73 00:19:0076.5 [facility] WITH UAECDISBBRNT9861-41-86 00:19:000.90[facility] WITH XHGMFSERPDFT1586-01-39 00:19:0014.3[facility] WITH WTNOUXEWECQT9502-67-17 00:19:006.3[facility] WITH IMRHVHISOYSI3150-44-33 00:19:001.7[facility] WITH LRMRUYBHHXJV8396-85-19 00:19:000.3[facility] WITH DIFFERENTIAL 2019-12-15 00:19:0012.18[facility] WITH IJIVIHUFKLPG6058-71-06 00:19:000.14 [facility] WITH KRNMSOSVIOBH4208-95-95 00:19:002.28[facility] WITH CONJCNEGXRFB4243-11-74 00:19:001.01[facility] WITH TVSHQYEHLNXE4377-40-84 00:19:000.27[facility]CBC WITH BZQHEQHRGHPD8965-31-71 00:19:000.04[facility] COMP. METABOLIC PANEL (97635)2019-12-15 00:14:96570ATUZ HealthCOMP. METABOLIC PANEL (29949)2019-12-15 00:14:003.8[facility] HealthCOMP. METABOLIC PANEL (71330) 2019-12-15 00:14:28211AIDS HealthCOMP. METABOLIC PANEL (26933)2019-12-15 00:14:0023[facility] HealthCOMP. METABOLIC PANEL (54701)2019-12-15 00:14:007[facility] HealthCOMP. METABOLIC PANEL (15024)2019-12-15 00:14:0010[facility] HealthCOMP. METABOLIC PANEL (45845)2019-12-15 00:14:0086[facility] HealthCOMP. METABOLIC PANEL (75754)2019-12-15 00:14:000.39[facility] HealthCOMP. METABOLIC PANEL (63103)2019-12-15 00:14:000.1[facility] HealthCOMP. METABOLIC PANEL (32685)2019-12-15 00:14:009.0[facility] HealthCOMP. METABOLIC PANEL (15844)2019-12-15 00:14:007.4[facility] HealthCOMP. METABOLIC PANEL (40198)2019-12-15 00:14:004.0[facility] HealthCOMP. METABOLIC PANEL (41810)2019-12-15 00:14:0071[facility] HealthCOMP. METABOLIC PANEL (53554)2019-12-15 00:14:0020[facility] HealthCOMP. METABOLIC PANEL (72711)2019-12-15 00:14:0022[facility] HealthCOMP. METABOLIC PANEL (09646)2019-12-15 00:14:26651.7[facility] HealthCOMP. METABOLIC PANEL (41176)2019-12-15 00:14:42693.2[facility] HealthLIPASE, SERUM 2019-12-15 00:14:0047[facility] Health[Q] IRON, TIBC AND FERRITIN PZEEH8068-00-17 15:53:00 Test Item Value Reference Range Interpretation Comments IRON, TOTAL (test 108 {mcg/dl} 40-190 N code = IRON, TOTAL) IRON BINDING 454 {mcg/dL 250-450 CAPACITY (test code ca} = IRON BINDING CAPACITY) % SATURATION (test 24 {% CALC} 16-45 N SPECIMEN RECEIVED code = % DATE AND TIME: SATURATION) [id number] FERRITIN (test code 13 ng/ml 16-154 SPECIMEN RECEIVED = FERRITIN) DATE AND TIME: [facility][Q] OBSTETRIC [id number] 15:53:00 Test Item Value Reference Range Interpretation Comments WHITE BLOOD CELL 13.1 3.8-10.8 COUNT (test code = {Thousand/u} WHITE BLOOD CELL COUNT) RED BLOOD CELL 4.07 3.80-5.10 N COUNT (test code = {Million/uL} RED BLOOD CELL COUNT) HEMAGLOBIN; Normal 12.3 g/dl 11.7-15.5 N (test code = 43333-2) HEMATOCRIT; Normal 36.0 % 35.0-45.0 N (test code = 4544-3) MCV; Normal (test 88.5 fL 80.0-100.0 N code = 787-2) MCHC; Normal (test 34.2 g/dl 32.0-36.0 N code = 38333-7) RDW; Normal (test 13.2 % 11.0-15.0 N code = 788-0) PLATELET COUNT; 260 {Thousand/u} 140-400 N Normal (test code = 777-3) MPV; Normal (test 11.7 fL 7.5-12.5 N code = 83016-5) ABSOLUTE 9930 {cells/uL} 6041-3613 NEUTROPHILS (test code = ABSOLUTE NEUTROPHILS) ABSOLUTE 2188 {cells/uL} 850-3900 N LYMPHOCYTES (test code = ABSOLUTE LYMPHOCYTES) ABSOLUTE MONOCYTES 734 {cells/uL} 200-950 N (test code = ABSOLUTE MONOCYTES) ABSOLUTE 183 {cells/uL} 15-500 N EOSINOPHILS (test code = ABSOLUTE EOSINOPHILS) ABSOLUTE BASOPHILS 66 {cells/uL} 0-200 N (test code = ABSOLUTE BASOPHILS) NEUTROPHILS (test 75.8 % N code = NEUTROPHILS) LYMPHOCYTES (test 16.7 % N code = LYMPHOCYTES) MONOCYTES; Normal 5.6 % N (test code = 91915-6) EOSINOPHILS; Normal 1.4 % N (test code = 83030-7) BASOPHILS; Normal 0.5 % N SPECIMEN R ECEIVED (test code = DATE AND TIME: 55144-5) [id number] ANTIBODY SCREEN, NO ANTIBODIES N Reference range RBC W/REFL ID, DETECTED No TITER AND AG; antibodies det ected Normal (test code = This ass ay is a 890-4) screening test for the detection o f red blood cell antibodies. The test is not to be us ed for pretransfus ion screening or fo r the medical managem ent of an alloimmun ized . SPECIMEN RECEIV ED DATE AND TIME: [id number] ABO GROUP (test A code = 883-9) RH TYPE (test code RH(D) NEGATIVE For add itional = 82723-4) information, pl ease refer to http://educatio nEnrique stDiagnostics.c om/fa q/TRU505 (This link is being provid ed for informational/e ducat ional purposes only.)SPECIMEN RECEIVED DATE A ND TIME: RPR (DX) W/REFL NON-REACTIVE NON-REACTIVE N SPECIMEN REC EIVED TITER AND DATE AND TIME: CONFIRMATORY TESTING (test code = RPR (DX) W/REFL TITER AND CONFIRMATORY TESTING) HEPATITIS B SURFACE NON-REACTIVE NON-REACTIVE N SPECIMEN RECEIVED ANTIGEN; Normal DATE AND BENJAMIN E: (test code = 855412309333 5195-3) RUBELLA ANTIBODY 3.85 {index} N Index (IGG); Normal (test Interpre tation code = 55517-8) ----- <0.90 Not consistent with Immunity 0.90-0.99 Equivocal > or = 1.00 Consi stent with Immunity The presence of rub shaheen IgG antibody suggests immunization or past or current infe ction withrubella virus.SPECIMEN RECEIVED DATE A ND TIME: [facility][Q] CWYETLC-6-XJIFAMTSJ DEHYDROGENASE, QUANT. 2019-11-30 15:53:00 Test Item Value Reference Range Interpretation Comments NBAFYKU-1-BAOLQKDLU 18.1 {U/g 7.0-20.5 SPECIMEN RECEIVED DEHYDROGENASE (test Hgb} DATE AND TIME: code = 848431598719 AWLWYWX-1-WVVYXHJPG DEHYDROGENASE) [facility][QL] FOLATE, [id number] 15:53:00 Test Item Value Reference Range Interpretation Comments FOLATE, SERUM 13.5 ng/ml N Reference Rang e (test code = Low: FOLATE, SERUM) <3.4 Borde rline: 3.4-5.4 Normal: >5.4 SPECIMEN R ECEIVED DATE AND TIME: [facility][Q] TREPONEMA PALLIDUM AB, PARTICLE AGGLUTINATION 2019-11-30 15:53:00 Test Item Value Reference Range Interpretation Comments TREPONEMA PALLIDUM NONREACTIVE Reference Range: AB, PARTICLE NonreactiveSPEC IMEN AGGLUTINATION (test RECEIVED DATE AND TIME: code = TREPONEMA [id number] 6 PALLIDUM AB, PARTICLE AGGLUTINATION) [facility][QL] CULTURE, URINE, [id number] 15:53:00 Test Item Value Reference Range Interpretation Comments SOURCE: (test URINE, CLEAN code = SOURCE:) CATCH STATUS: (test FINAL code = STATUS:) ISOLATE 1: (test 50,000-100,000 A Lactobaci llus code = ISOLATE CFU/mL of speciesMay re present 1:) colonizers from external andint ernal genitalia. No f urther testing (includingsusce ptibili ty) will be performed.SPECI MEN RECEIVED DATE A ND TIME: [facility][Q] HEMOGLOBINOPATHY TDKMWCQCPD1084-72-52 15:53:00 Test Item Value Reference Range Interpretation Comments RED BLOOD CELL COUNT 3.96 3.80-5.10 N (test code = RED {Million/uL} BLOOD CELL COUNT) HEMAGLOBIN; Normal 12.4 g/dl 11.7-15.5 N (test code = 34314-3) HEMATOCRIT; Normal 35.4 % 35.0-45.0 N (test code = 4544-3) MCV; Normal (test 89.4 fL 80.0-100.0 N code = 787-2) MCH; Normal (test 31.3 pg 27.0-33.0 N code = 76184-2) RDW; Normal (test 13.4 % 11.0-15.0 N SPECIMEN R ECEIVED code = 788-0) DATE AND TIME: HEMOGLOBIN A (test 97.6 % >96.0 N code = HEMOGLOBIN A) HEMOGLOBIN F (test <1.0 <2.0 N code = HEMOGLOBIN F) HEMOGLOBIN A2 2.4 % 1.8-3.5 N (QUANT); Normal (test code = 08165-8) INTERPRETATION (test See Comment Normal code = phenotype.SPECI MEN INTERPRETATION) RECEIVED MIGUEL E AND TIME: [facility][Q] HIV-1/2 Antigen and Antibodies, Fourth Generation, with Niecmgpw4237-46-03 15:53:00 Test Item Value Reference Range Interpretation Comments HIV AG/AB, 4TH NON-REACTIVE NON-REACTIVE N HIV-1 antigen and GEN; Normal HIV-1/HIV-2 ant ibodies were (test code = [place] [address]-2) laboratory evid ence of HIVinfection. P LEASE NOTE: This informatio n has been disclosed toyou from records whose confidentiality may beprotected by state law. If your state r equires suchprotection, then the state law prohi bits you frommaking any further disclosure of t he informationwith out the specific writte n consent of the personto wh om it pertains, or as otherwise permitted by odalys sellers.A general authorization f or the release of medi daren orother information is NOT sufficient for this purpose. For a dditional information ple ase refer tohttp://educat ion.Metaresolver/fa q/PNT111(Thi s link is being provided for informational/e ducational purposes only.) The performance of this assay has not been clinicallyvalid ated in patients less t prince 2 years old. SPECIMEN R ECEIVED DATE AND TIME: 8445103 [facility]. [facility] - GC/Jhpbpkkyi7032-80-35 00:00:00 Test Item Value Reference Range Interpretation Comments Case (test code = Click ImageLink button N Case) for report. [facility] IcscsvpyheBALBPMYGHP8625-94-06 15:25:005.0[facility] Health CQKMJGLTSU8685-22-99 15:25:001.013[facility] MwbdfsAHSTCWDSEO5959-39-79 15:25:001[facility] ClrgwlLUMLYYYPTL3444-84-60 15:25:002[facility] JlqtikJHECQWDBSA4001-59-53 15:25:004 [facility] HealthALPHA FETOPROTEIN-MATERNAL OXY3099-26-13 19:28:0026.0[facility] HealthPOCT URINALYSIS W SPECIFIC JNJFELT3471-43-94 16:48:005[facility] 2019-09-16 14:03:1013074.00[facility] HealthBasic Metabolic Panel (NA, K, CL, CO2, GLUCOSE, BUN, CREATININE, CA)2019-09-16 13:15:80630ZCNV HealthBasic Metabolic Panel (NA, K, CL, CO2, GLUCOSE, BUN, CREATININE, CA)2019-09-16 13:15:003.7[facility] HealthBasic Metabolic Panel (NA, K, CL, CO2, GLUCOSE, BUN, CREATININE, CA) 2019-09-16 13:15:19764DPZS HealthBasic Metabolic Panel (NA, K, CL, CO2, GLUCOSE, BUN, CREATININE, CA)2019-09-16 13:15:0023[facility] Metabolic Panel (NA, K, CL, CO2, GLUCOSE, BUN, CREATININE, CA)2019-09-16 13:[facility] (NA, K, CL, CO2, GLUCOSE, BUN, CREATININE, CA)2019-09-16 13:15:0012[facility] Metabolic Panel (NA, K, CL, CO2, GLUCOSE, BUN, CREATININE, CA)2019-09-16 13:15:02938[facility]QQ[facility] (NA, K, CL, CO2, GLUCOSE, BUN, CREATININE, CA)2019-09-16 13:15:000.45[facility] Metabolic Panel (NA, K, CL, CO2, GLUCOSE, BUN, CREATININE, CA)2019-09-16 13:15:009.3[facility] Metabolic Panel (NA, K, CL, CO2, GLUCOSE, BUN, CREATININE, CA)2019-09-16 13:15:20172.9[facility] Met[facility] (NA, K, CL, CO2, GLUCOSE, BUN, CREATININE, CA)2019-09-16 13:15:14612.1[facility] HealthHepatic Function Panel (ALB, T.PRO, BILI T, BU/BC, ALT, AST, ALK PHOS)2019-09-16 13:15:000.2[facility] HealthHepatic Function Panel (ALB, T.PRO, BILI T, BU/BC, ALT, AST, ALK PHOS)2019-09-16 13:15:000.2[facility] HealthHepatic Function Panel (ALB, T.PRO, BILI T, BU/BC, ALT, AST, ALK PHOS)2019-09-16 13:15:000.0[facility] Health Hepatic Function Panel (ALB, T.PRO, BILI T, BU/BC, ALT, AST, ALK PHOS)2019-09-16 13:15:007.1[facility] HealthHepatic Function Panel (ALB, T.PRO, BILI T, BU/BC, ALT, AST, ALK PHOS)2019-09-16 13:15:004.0[facility] HealthHepatic Function Panel (ALB, T.PRO, BILI T, BU/BC, ALT, AST, ALK PHOS)2019-09-16 13:15:0045[facility] HealthHepatic Function Panel (ALB, T.PRO, BILI T, BU/BC, ALT, AST, ALK PHOS)2019-09-16 13:15:0036[facility] HealthHepatic Function Panel (ALB, T.PRO, BILI T, BU/BC, ALT, AST, ALK PHOS)2019-09-16 13:15:0027UT AgsowmhWZI5589-46-03 13:12:0030UT HealthProthrombin Time (PT) / VTG5790-95-65 13:10:0013.0[facility] HealthProthrombin Time (PT) / SNV4254-38-25 13:10:001.0[facility] HealthCBC WITH VQVEFRVNYATT3026-63-65 13:03:0010.33[facility] HealthC WITH KTVCLSONDYBQ6877-18-06 13:03:004.37[facility] Health CBC WITH HSSFTOYYYAYL6671-77-16 13:03:0013.1[facility] DIFFERENTIAL 2019-09-16 13:03:0038.1[facility] HealthC WITH POJNSULNCFNM4466-87-94 13:03:0087.2 [facility] WITH RYXYCRUNSHQO3432-62-94 13:03:00 Test Item Value Reference Range Interpretation Comments <td 30.0 pg 25.9-32.8 ID="[id number]">MCH</td ><td>30.0</td><td>25.9 - 32.8 pg</td><td>[facility]</td><td ID="[id number]"/> (test code = <td ID="[id number]">MCH< /td><td>30.0</td><td>25.9 - 32.8 pg</td><td>[facility]</td><td ID="[id number]"/>) [facility] WITH RLYZBXVXSKJS6636-42-82 13:03:0034.4[facility] WITH KLNWVOPBOBIL1343-32-49 13:03:0041.5[facility] WITH PEVOJWFEQIYE8851-82-39 13:03:0013.0[facility] WITH DSRCCJZJVHJV1622-23-92 13:03:84253ECWI HealthCBC WITH UPHZDCPDKFMF2146-87-15 13:03:0011.2[facility] WITH DIFFERENTIAL 2019-09-16 13:03:000.0[facility] WITH NYWOSNASHGMG0319-38-21 13:03:0064.6 [facility] WITH TFMIODRTLQFK5910-85-38 13:03:000.60[facility] WITH FUJAASQGGRJY2022-14-88 13:03:0024.6[facility] WITH WNZKZJNZQFJF5653-79-46 13:03:007.9[facility] WITH MYKJZTHIJIBJ7299-73-07 13:03:001.8[facility] WITH IPNYLQZZOAZY7854-87-20 13:03:000.5[facility] WITH DIFFERENTIAL 2019-09-16 13:03:006.67[facility] WITH ZLZGUQCVVCLJ8427-41-10 13:03:000.06 [facility] WITH THGNWVRMGWPE9359-81-51 13:03:002.54[facility] WITH VFSYVHFWVXSD1173-63-31 13:03:000.82[facility] WITH YIXRVFYTBTXC5091-47-58 13:03:000.19[facility] WITH LMZOPWCUJOYC6021-23-06 13:03:000.05[facility] Health BOFRFTDSHF5537-31-90 13:00:006.0[facility] CvxihpZJJYINEKFV0685-46-80 13:00:001.017 [facility] TykxcfPQFWJRGHME3784-37-25 13:00:004[facility] RcysrjXDLDEAWWRS7136-94-11 13:00:008[facility] EamripUONYXDRTEL5039-75-59 13:00:0030UT HealthHIV 1/2 AG-AB WITH WJAGXM9365-27-79 07:47:000.06UT HealthHEPATITIS B SURFACE MWGGENN9278-11-77 06:40:000.04[facility] HealthCBC WITH RFIRQZHKOPQY0602-78-09 06:36:0011.33[facility] CBC WITH UPZUDFYZZDPE1373-01-13 06:36:004.70[facility]CBC WITH DIFFERENTIAL 2019-09-04 06:36:0014.0[facility] WITH JLGVRIUBEUED1747-39-66 06:36:0040.9 [facility] HealthCBC WITH ECXEIJGUMKYO4282-24-42 06:36:0087.0[facility] WITH FTQLYEGQMJZP2646-32-89 06:36:00 Test Item Value Reference Range Interpretation Comments <td 29.8 pg 25.9-32.8 ID="[id number]">MCH</td ><td>29.8</td><td>25.9 - 32.8 pg</td><td>[facility]</td><td ID="[id number]&quo t;/> (test code = <td ID="Ggjivg686181399Rkdn3Kmto">MCH</td ><td>29.8</td><td>25.9 - 32.8 pg</td><td>[facility]</td><td ID="[id number]"/>) [facility] HealthCBC WITH LQTTEEBWZKBI1803-55-22 06:36:0034.2[facility] HealthCBC WITH SSAPDDLNYKIY9874-55-23 06:36:0042.2[facility] HealthCBC WITH FMQQBMMALSRW0097-64-16 06:36:0013.2[facility] HealthCBC WITH BUQTDGNCGAUY7642-51-08 06:36:16397UVXS HealthCBC WITH ACBZMFQCKXNT9896-87-51 06:36:0012.1[facility] WITH DIFFERENTIAL 2019-09-04 06:36:000.0[facility] WITH MHSTFKEQAKHB9731-17-34 06:36:0067.8 [facility]CBC WITH WMMITGCCNQEH6995-70-70 06:36:000.30[facility] WITH QAVGBWLWXNGS9508-69-81 06:36:0023.2[facility] WITH TICQZYEWVREK4758-77-93 06:36:006.5[facility] HealthCBC WITH URLMKDBFWTWO4167-78-88 06:36:001.8[facility] HealthCBC WITH DJZEUQGCYZTT3658-02-17 06:36:000.4[facility] HealthCBC WITH DIFFERENTIAL 2019-09-04 06:36:007.68[facility] HealthCBC WITH GIQRODMYXCRB2617-13-33 06:36:000.03 [facility] HealthCBC WITH ZADWBGSADIAN1615-13-84 06:36:002.63[facility] HealthCBC WITH JEKALKMLEGOP9370-21-60 06:36:000.74[facility] HealthCBC WITH COSGSLYSQYIS6304-45-97 06:36:000.20[facility] HealthCBC WITH OIUQVBQDGPVQ0299-25-26 06:36:000.05[facility] POCT URINALYSIS W/O SPECIFIC KCCKXJG2803-57-64 20:42:005[facility]HE[facility] 2017-08-23 08:04:00 Test Item Value Reference Range Interpretation Comments PTT (test code = PTT) 26.5 s 22.9-35.8 [facility]WulvrqINLVSNXXIR1482-76-65 08:04:000.97[facility] LACWJWRYEF6647-56-64 08:04:00 Test Item Value Reference Range Interpretation Comments PT (test code = PT) 12.9 s 12.0-14.7 [facility] CenterShmgnhYRUEMQEBMP5385-27-67 08:04:47229ZN[facility] VSKGYVVBXB7462-05-33 08:04:09584GEChild[facility] CenterDRUG TQZKDL8192-50-67 08:03:00Negative *NA*(08/23/17 2:03 AM)[facility]EN 2017-08-23 08:03:00Negative *NA*(08/23/17 2:03 AM)[facility] DZCROA8941-15-58 08:03:00See Note (08/23/17 2:03 AM)[facility] NHDZXC6287-42-11 08:03:00Negative *NA*(08/23/17 2:03 AM)[facility] DR[facility] ZBPSXP1994-39-39 08:03:00Negative *NA*(08/23/17 2:03 AM)[facility] SLIBCN3296-02-06 08:03:00Negative *NA*(08/23/17 2:03 AM)[facility] TRKIMJ3303-11-35 08:03:00Negative *NA*(08/23/17 2:03 AM)[facility] FOCVVC2996-28-15 08:03:00Negative *NA*(08/23/17 2:03 AM)[facility] QOSELB1099-05-41 08:03:00Negative *NA*(08/23/17 2:03 AM)[facility] YVFRJF3183-16-65 08:03:00Negative *NA*(08/23/17 2:03 AM)[facility] CenterBL[facility] GCNSANS2834-95-53 07:54:00Product available (08/23/17 1:54 AM)[facility] UBPSOQN0296-52-34 06:36:00Positive 1(08/23/17 12:36 AM)[facility] HBZISBDXGL9619-87-61 06:36:009.8[facility] CenterXpzhfiJYMTGOSWBI9693-87-84 06:36:002.5[facility] CenterWwpieiKAJSZQRHHV0638-91-19 06:36:000.9[facility] CenterQgqxpwBWPJSQAMMY7634-93-60 06:36:000.2[facility] 2017-[facility] 06:36:000.[address] [place], [place] [address]TgbnevKHOSYJKCQK5930-38-85 06:36:0018.6[facility] MainlandPmcaspXMLMSFJUYG5409-06-86 06:36:006.7[facility] BOVGPCPWFK1738-15-50 06:36:[address] [place], [place] [address]PwaowrSNNVFMHOXA7813-85-59 06:36:000.4[facility] CenterDdbhwePNWPLXYXEZ0076-23-73 06:36:0073.2[facility] MainlandPbcolzWUZFNJLPBT2924-84-74 06:36:50839QY[facility] CenterHEMATOLOGY 2017-08-23 06:36:009.9[facility] CenterZasydkAJQBMTOZPJ5849-30-35 06:36:0033.5[facility] CenterHwoqlpRIVRFVQKED2804-90-15 06:36:00 Test Item Value Reference Range Interpretation Comments MCH (test code = MCH) 27.4 pg 27.0-31.0 [facility] CenterOwftgkTNWXMTAVKY9764-51-85 06:36:0033.5[facility] OPKZXHVBWA5162-46-75 06:36:0082.0[facility] CenterBrsfplCATVNSRQCK9344-50-61 06:36:0011.2[facility]landXwuuvpXZJWGZWLYL3194-07-44 06:36:53357PMChildress Regional Medical CenterQqltgtVONOPDVCFH3478-16-19 06:36:0015.4[facility]HE[facility] 2017-08-23 06:36:004.09[facility] CenterGtjszlXPWPPUDWAG9218-28-39 06:36:0013.4 [facility] CenterSjnglyNQKZERKHSM5417-21-73 06:36:00Negative *NA*(08/23/17 12:36 AM)[facility] CenterNliseqMYIDHRKERR5807-98-00 06:36:00Negative *NA*(08/23/17 12:36 AM)[facility] CenterTwonmfYRCQZBHCWC3013-38-30 06:36:00Non Reactive *NA*(08/23/17 12:36 AM)[facility] CenterCHEM HBFKY8412-76-69 20:02:000.6[facility]landCHEM JLQBY9423-18-96 20:02:0025[facility] CenterCHE[facility] DMGDW1167-68-98 20:02:004.7[facility] CenterCHE[facility] MKXIS2918-38-30 20:02:00 12.1[facility]landCHEM EUKJN6768-23-14 20:02:33511KOChildress Regional Medical CenterCHEM KLPNW2241-17-17 20:02:000.[address] [place], [place] [address]CHEM PANEL 2017-08-02 20:02:0025[facility] CenterCHEM TSNAC5494-45-14 20:02:008.[address] [place], [place] [address]CHEM XPFJD5386-03-92 20:02:004.[address] [place], [place] [address]CHEM BRFLM5124-27-70 20:02:93835VMChild[facility] Medical CenterCHEM RDTMD2046-88-84 20:02:00 103[facility] CenterCHEM NYVWO8731-31-95 20:02:70850CUChild[facility] Regional Medical CenterCHEM YCHOG1448-97-08 20:02:0032[facility] CenterCHEM UMIOX6557-53-07 20:02:0012[facility] CenterCHE[facility] UZVAF9521-01-71 20:02:002.[address] [place], [place] [address]CHEM UWGIW3564-32-45 20:02:007.3[facility]landCHEM PANEL 2017-08-02 20:02:000.36[facility] CenterCHE[facility] MSNHD0791-08-82 20:02:009[facility] CenterCHE[facility] NCDDL6248-75-15 20:02:0070[facility] KRQHCQCRJX5106-22-00 20:02:000.1[facility] MainlandUvffyyRYIIQKRFAZ2752-87-08 20:02:0078.6[facility]landXgwdekTNMFPNSAWZ2911-15-59 20:02:002.1[facility] MainlandLztokaQPMVQUCVUF2417-40-30 20:02:0011.3[facility]landHEMATOLOGY 2017-08-02 20:02:000.3[facility] MainlandAypojiAVYWADTDAO7155-26-75 20:02:000.8[facility] CenterQufadvNRBXRUKFYO5412-01-83 20:02:000.9[facility] EUYPDUDBTY3111-39-43 20:02:005.4[facility] CenterTslwwmTKWMABBXKX4428-04-96 20:02:0014.8[facility] CenterOyhfckNDCTUVWYMF0041-87-21 20:02:0034.0[facility] CenterXvceflUHUUNCVORE7625-17-71 20:02:0014.4[facility] 2017-08-02 20:02:0011.5[facility] CenterIhjcpcHUTVHEPDIX4665-39-80 20:02:004.07 [facility] CenterNjzvngZNWHHVIBQA4118-80-19 20:02:009.4[facility] PSFYMFXJEY9838-31-34 20:02:00 Test Item Value Reference Range Interpretation Comments MCH (test code = MCH) 28.2 pg 27.0-31.0 [facility] CenterQljtbaBLLJDAMJHX1902-37-59 20:02:72473BU[facility] LVFNLBDVBC8210-25-42 20:02:0033.7[facility] CenterUuwczhIERWYNHCAY3092-14-11 20:02:0083.6[facility]landHfjjczTVQPQFZFBW7171-14-20 20:02:0014.4[facility] CenterURINE AND PGNXB4325-87-88 20:02:00Moderate *ABN*(08/02/17 2:02 PM) [facility] FZWTM1832-73-73 20:02:00Negative (08/02/17 2:02 PM)[facility] AGQKN5089-48-24 20:02:00Negative (08/02/17 2:02 PM)[facility] CENNX6700-14-50 20:02:00Negative *NA*(08/02/17 2:02 PM)[facility] XJAOU2962-32-26 20:02:001 [facility] GNFQK5715-80-88 20:02:007[facility] LYVZV4074-69-29 20:02:001.023[facility] TKRVP1993-57-45 20:02:00Slight *ABN*(08/02/17 2:02 PM)[facility] URINE AND VUDDA1061-37-25 20:02:00Yellow *NA*(08/02/17 2:02 PM)[facility] EDGXB4816-17-86 20:02:006.5[facility] CenterPREGNANCY SCREEN, [id number] 20:01:00 Test Item Value Reference Range Interpretation Comments TEST URINE (BEAKER) (test Negative code = 583) [id number] 11:54:00 Test Item Value Reference Range Interpretation Comments RPR SCREEN (BEAKER) (test code = Nonreactive Nonreactive 420) HEMOGLOBIN [id number] 10:47:00 Test Item Value Reference Range Interpretation Comments HEMOGLOBIN A1C (BEAKER) (test code = 5.2 % 4.3-6.1 368) TSH/FREE T4 IF [id number] 06:03:00 Test Item Value Reference Range Interpretation Comments THYROID STIMULATING HORMONE 0.97 uIU/mL 0.35-4.94 (BEAKER) (test code = 772) VITAMIN B12 AND [id number] 06:03:00 Test Item Value Reference Range Interpretation Comments VITAMIN B12 (BEAKER) (test code = 384 pg/mL 213-492 869) FOLATE (BEAKER) (test code = 362) 11.5 ng/mL >=7.0 Effective 07/13/2014: Folate Reference Range ChangeNew: >=7.0 Previous: >=5.4HIV-1 ANTIGEN WITH HIV-1/2 [id number] 05:29:00 Test Item Value Reference Range Interpretation Comments HIV-1 ANTIGEN WITH HIV 1\\T\\2 Nonreactive Nonreactive ANTIBODY (2) (BEAKER) (test code = 2586) [id number] 05:18:00 Test Item Value Reference Range Interpretation Comments D-DIMER QUANTITATIVE (BEAKER) < MG/L FEU <0.50 (test code = 671) Intended Use: The D-Dimer Assay can be used to aid in the diagnosis of Deep Vein Thrombosis (DVT) and Pulmonary Embolism Disease (PED).In patients with low pre- test probability, various studies concerning STA Liatest D-dimer test have reported that with a cutoff value of 0.50 MG/L FEU, the Negative Predictive Value (NPV) regarding the exclusion of thrombosis is within 95-100% range. [id number] 05:18:00 Test Item Value Reference Range Interpretation Comments MAGNESIUM (BEAKER) (test code = 2.1 mg/dL 1.6-2.6 627) LIPID [id number] 05:18:00 Test Item Value Reference Range Interpretation Comments TRIGLYCERIDES (BEAKER) (test code = 128 mg/dL 540) CHOLESTEROL (BEAKER) (test code = 159 mg/dL 631) HDL CHOLESTEROL (BEAKER) (test code 29 mg/dL = 976) LDL CHOLESTEROL CALCULATED (BEAKER) 104 mg/dL (test code = 633) Triglyceride Reference Range: Low Risk <150 Borderline 150-199 High Risk 200-499 Very High Risk >=500Cholesterol Reference Range: Low Risk <200 Borderline 200-239 High Risk >240HDL Cholesterol Reference Range: Low Risk >=60 High Risk <40LDL Cholesterol Reference Range: Optimal <100 Near Optimal 100-129 Borderline 130-159 High 160-189 Very High >=190BASIC METABOLIC [id number] 05:18:00 Test Item Value Reference Range Interpretation Comments SODIUM (BEAKER) 139 meq/L 136-145 (test code = 381) POTASSIUM (BEAKER) 3.5 meq/L 3.5-5.1 (test code = 379) CHLORIDE (BEAKER) 109 meq/L 98-107 H (test code = 382) CO2 (BEAKER) (test 23 meq/L 22-29 code = 355) BLOOD UREA NITROGEN 13 mg/dL 7-21 (BEAKER) (test code = 354) CREATININE (BEAKER) 0.66 mg/dL 0.57-1.25 (test code = 358) GLUCOSE RANDOM 94 mg/dL 70-105 (BEAKER) (test code = 652) CALCIUM (BEAKER) 8.3 mg/dL 8.4-10.2 L (test code = 697) EGFR (BEAKER) (test 109 mL/min/1.73 ESTIM ATED GFR IS code = 1092) sq m NOT ACCURATE CREATININE CLEARANCE IN PREDICTING GLOMERULAR FILTRATION RATE . ESTIMATED GFR I S NOT APPLICABLE FOR DIALYSIS PATIEN TS. CBC W/PLT COUNT & AUTO [id number] 05:09:00 Test Item Value Reference Range Interpretation Comments WHITE BLOOD CELL COUNT (BEAKER) 9.8 K/ L 4.0-10.0 (test code = 775) RED BLOOD CELL COUNT (BEAKER) 4.39 M/ L 4.00-5.00 (test code = 761) HEMOGLOBIN (BEAKER) (test code = 13.0 GM/DL 12.0-15.0 410) HEMATOCRIT (BEAKER) (test code = 39.9 % 36.0-45.0 411) MEAN CORPUSCULAR VOLUME (BEAKER) 91.0 fL 82.0-99.0 (test code = 753) MEAN CORPUSCULAR HEMOGLOBIN 29.7 pg 27.0-33.0 (BEAKER) (test code = 751) MEAN CORPUSCULAR HEMOGLOBIN CONC 32.6 GM/DL 32.0-36.0 (BEAKER) (test code = 752) RED CELL DISTRIBUTION WIDTH 13.0 % 10.3-14.2 (BEAKER) (test code = 412) PLATELET COUNT (BEAKER) (test 207 K/CU MM 150-430 code = 756) MEAN PLATELET VOLUME (BEAKER) 9.1 fL 6.5-10.5 (test code = 754) NUCLEATED RED BLOOD CELLS 0 /100 WBC 0-0 (BEAKER) (test code = 413) NEUTROPHILS RELATIVE PERCENT 60 % (BEAKER) (test code = 429) LYMPHOCYTES RELATIVE PERCENT 29 % (BEAKER) (test code = 430) MONOCYTES RELATIVE PERCENT 8 % (BEAKER) (test code = 431) EOSINOPHILS RELATIVE PERCENT 2 % (BEAKER) (test code = 432) BASOPHILS RELATIVE PERCENT 0 % (BEAKER) (test code = 437) NEUTROPHILS ABSOLUTE COUNT 5.88 K/ L 1.80-8.00 (BEAKER) (test code = 670) LYMPHOCYTES ABSOLUTE COUNT 2.89 K/ L 1.48-4.50 (BEAKER) (test code = 414) MONOCYTES ABSOLUTE COUNT (BEAKER) 0.80 K/ L 0.00-1.30 (test code = 415) EOSINOPHILS ABSOLUTE COUNT 0.20 K/ L 0.00-0.50 (BEAKER) (test code = 416) BASOPHILS ABSOLUTE COUNT (BEAKER) 0.05 K/ L 0.00-0.20 (test code = 417) 0.58IAHZBFJNRB6168-72-82 10:10:0032.2[facility]landSqkngePEQXCUFOJD8484-52-83 10:10:0010.8[facility] CRAHZ1117-51-05 15:43:00Yellow *NA*(12/04/15 10:43 AM)[facility] [id number] 15:43:00 Clear (12/04/15 10:43 AM)[facility] MBKSO2693-70-41 15:43:001.017[facility] IAEBY3788-74-99 15:43:00Negative *NA*(12/04/15 10:43 AM)[facility] JYSPG8117-83-46 15:43:00 6.5[facility] CUSSY3924-36-76 15:43:00Negative (12/04/15 10:43 AM)[facility] [id number] 15:43:00Large *ABN*(12/04/15 10:43 AM)[facility] JAYWK4510-45-98 15:43:00 4[facility] OEEKH5024-94-67 15:43:001[facility] FLXYG8519-28-78 15:43:00Trace *ABN*(12/04/15 10:43 AM)[facility] CenterYlsncnLNRLITSMKZ4451-03-84 15:15:00 Test Item Value Reference Range Interpretation Comments PTT (test code = PTT) 27.5 s 22.9-35.8 [facility] CenterSucpyvJBWQKIWBTE5609-87-75 15:15:000.97[facility] WVIRPGIIOM5374-11-83 15:15:00 Test Item Value Reference Range Interpretation Comments PT (test code = PT) 13.2 s 12.0-14.7 [facility] JINYJNA0488-19-74 14:37:00Positive 1(12/04/15 9:37 AM)[facility] CenterQvwjnpEWWSLLLPLB7366-49-90 14:37:[address] [place], [place] [address]QfnhcnRHODIHHCNZ9752-56-58 14:37:57972FK[facility] CenterHEMATOLOGY 2015-12-04 14:37:0014.8[facility] CenterTduogjEUDOXBOHGO5071-00-64 14:37:0032.3 [facility] CenterIjgjvhCOVITSTQSG2215-43-32 14:37:00 Test Item Value Reference Range Interpretation Comments MCH (test code = MCH) 26.9 pg 27.0-31.0 [facility] CenterOvtyhcONNPUITDRV3673-76-32 14:37:0083.4[facility] QMCVJOLNFE0264-13-07 14:37:0033.0[facility] CenterShrprlPILLTNZAHS1767-96-68 14:37:0010.7[facility] CenterVreiufEWLUVEVIDH0874-53-64 14:37:003.96[facility] CenterTngepkAMFGYOVGUK9990-89-97 14:37:0018[address] [place], [place] [address]HEMATOLOGY 2015-12-04 14:37:000.[address] [place], [place] [address]WpyjmiBFOVKXOEGY6851-36-35 14:37:000.[address] [place], [place] [address]BxugfyGJVARMEQNT3545-98-30 14:37:001.[address] [place] [address] JRDAQIGMAF2564-70-95 14:37:[address] [place], [place] [address]MmnynnYQZWIIKYAL5509-04-45 14:37:002.0[facility] CenterWzlneqQCKCNAAJLW0513-23-29 14:37:[address] [place], [place] [address]RfowunCPKZBAOEGZ0070-91-27 14:37:[address] [place], [place] [address]HEMATOLOGY 2015-12-04 14:37:000.8[facility] CenterDqlpsaJVFPCCXUMK7956-58-89 14:37:0010.7[facility] CenterGudblaOJHXAMMZYO3161-08-93 14:37:0081.9[facility] FACILGSYDD1698-41-03 14:37:00Negative *NA*(12/04/15 9:37 AM)[facility] CenterIhjynxTJBRGVSJKQ7137-97-02 14:37:00Non Reactive *NA*(12/04/15 9:37 AM)[facility] CenterSvkbkdJHCETINAVL1017-28-21 14:37:00Negative *NA*(12/04/15 9:37 AM)[facility] CenterBLOOD BANK NVWMWEZ2389-06-75 14:06:00Product available (12/04/15 9:06 AM)[facility]
--- OUTSIDE RECORDS SUMMARY | 2020-01-24 13:12 | XMS REPORT | Summary of Care ---
:1990 Author Name Amado CoatsVan Address Unavailable Unavailable , Care Team Providers Name Role Phone LULU Toure Unavailable Unavailable LAINA Toure Unavailable Unavailable BLU Toure Unavailable Unavailable JULIO ARIAS [place] Unavailable Unavailable ANUPAM ARIAS Unavailable Unavailable Unavailable Unavailable Unavailable Functional Status Name Dates Details Functional status health issues are not documented Status: Name Dates Details Cognitive status health issues are not documented Status: Problems Name Dates Details Nausea and vomiting (787.01, R11.2) Stat us: Active 25 to 26 weeks gestation of (V22.2) Status: Active High-risk (V23.9, O09.90) Stat us: Active Urinary tract infection (599.0, N39.0) S tatus: Active Palpitations (785.1, R00.2) Status: Acti ve Von Willebrand's disease (286.4, D68.0) Status: Active Chlamydial infection (079.98, A74.9) Sta tus: Active Encounter for supervision of normal (V22.1, Z34.90 ) Status: Active Medications Name Dates Details Zofran 4 MG Oral Tablet Refills: 0 Start : 07-Jul-2015 Active Nitrofurantoin Monohyd Macro 100 MG Oral Capsule TAKE 1 CAPSULE EVERY 12 HOURS DAILY. Quantity: 10 Refills: 0 LIGIA MARINA M.D. Start : 08-Nov-2015 Active Cephalexin 500 MG Oral Capsule TAKE 1 CAPSULE EVERY 12 HOURS DAILY. Quantity: 14 Refills: 0 JUAN LAWSON M.D. Start : 17-Nov-2015 Active Allergies and Adverse Reactions Name Dates Details No Known Allergies (Allergy) Status: Act j cralos Procedures Procedure Dates Details Procedures not documented Immunization Name Dates Details Tdap (Adacel) on: 22-Sep-2015 Lot #: [id number] Social History Name Dates Details - Status: Name Dates Details Ex-smoker (finding) Never smoked tobacco (finding) Vital Signs Date Test Result Details [id number]:06 Systolic blood pressure 106 mm[Hg] Status: Comments: Location: RUE; Position: Sitting Diastolic blood pressure 73 mm[Hg] Status: Comment s: Location: RUE; Position: Sitting Body height 61 in Status: Weight 191 lb Status: Body mass index (BMI) [Ratio] 36.09 kg/m2 Status: Body surface area Derived from 1.85 m2 Status: formula Heart Rate 83 /min Status: Results Date Description Value Details Results not documented Plan of Care Name Dates Details Planned Observations Planned Goals not documented Instructions Name Dates Details Instructions not documented Encounters Appointment; YASHIRA HURT M.D. On: 30-Nov-2019 14:00 Encounter Diagnosis: Problem not documented
--- OUTSIDE RECORDS SUMMARY | 2020-01-24 13:12 | XMS REPORT | Summary of Care ---
:1990 Author Name Mague Live Address Unavailable Unavailable , Care Team Providers Name Role Phone LULU Toure Unavailable Unavailable LAINA Toure Unavailable Unavailable BLU Toure Unavailable Unavailable JULIO ARIAS [place] Unavailable Unavailable ANUPAM ARIAS Unavailable Unavailable Unavailable [...] No Known Allergies (Allergy) Status: Act j carlos Procedures Procedure Dates Details [Q] WGDDGJG-3-JRGZRCKSB DEHYDROGENASE, QUANT. Date: 020 [Q] HEMOGLOBINOPATHY EVALUATION Date: 30-Nov-2019 [Q] HIV AB, HIV 1/2, EIA, WITH REFLEXES Date: 30-Nov-2019 [Q] OBSTETRIC PANEL Date: 30-Nov-2019 [Q] TREPONEMA PALLIDUM AB, PARTICLE AGGLUTINATION Date: [QL] CULTURE, URINE, ROUTINE Date: 30-Nov-2019 [QL] URINALYSIS, COMPLETE Date: 30-Nov-2019 [Q] IRON, TIBC AND FERRITIN PANEL Date: 30-Nov-2019 [QL] FOLATE, SERUM Date: 30-Nov-2019 . [facility] - GC/Chlamydia Date: 30-Nov-2019 . [facility] - Affirm VPIII (BV Panel) Date: 30-Nov-2019 Immunization Name Dates Details Tdap (Adacel) on: 22-Sep-2015 Lot #: [id number] Social History Name Dates Details - Status: Name Dates Details Ex-smoker (finding) Never smoked tobacco (finding) Vital Signs Date Test Result Details [id number] Systolic blood pressure 106 mm[Hg] Status: Comments: [...] Details Planned Observations Planned Goals not documented Interventions Provided Labs/Procedures/Imaging. [facility] - Affirm VPIII (BV Panel); To Be Done: 30 Nov 2019. [facility] - GC/Chlamydia; To Be Done: 30 Nov 2019[Q] UVENLAL-2-UGKBXGEQX DEHYDROGENASE, QUANT.; To Be Done: 30 Nov 2019[Q] HEMOGLOBINOPATHY EVALUATION; To Be Done: 30 Nov 2019[Q] HIV AB, HIV 1/2, EIA, WITH REFLEXES; To Be Done: 30 Nov 2019[Q] IRON, TIBC AND FERRITIN PANEL; To Be Done: 30 Nov 2019[Q] OBSTETRIC PANEL; To Be Done: 30 Nov 2019[Q] TREPONEMA PALLIDUM AB, PARTICLE AGGLUTINATION; To Be Done: 30 Nov 2019[QL] CULTURE, URINE, ROUTINE; To Be Done: 30 Nov 2019 [QL] FOLATE, SERUM; To Be Done: 30 Nov 2019[QL] URINALYSIS, COMPLETE; To Be Done: 30 Nov 2019 Instructions Name Dates Details Instructions not documented Encounters Appointment; YASHIRA HURT M.D. On: 30-Nov-2019 14:00 Encounter Diagnosis: Problem not documented
--- OUTSIDE RECORDS SUMMARY | 2020-01-24 13:13 | XMS REPORT | Summary of Care ---
:1990 Author Name MILADY Toure Address Unavailable Unavailable , Care Team Providers Name Role Phone LULU Toure Unavailable Unavailable LAINA Toure Unavailable Unavailable STEVENSON Toure Unavailable Unavailable JULIO ARIAS [place] Unavailable Unavailable ANUPAM ARIAS Unavailable Unavailable [place] Unavailable Unavailable Unavailable Unavailable Unavailable Functional Status [...] Active Palpitations (785.1, R00.2) Status: Acti ve Chlamydial infection (079.98, A74.9) Sta tus: Active Encounter for supervision of normal (V22.1, Z34.90 ) Status: Active Von Willebrand's disease (286.4, D68.0) Status: Active Migraine (346.90, G43.909) Status: Activ e Medications Name Dates Details Zofran 4 MG [...] Known Allergies (Allergy) Status: Act j carlos Past Medical History Name Dates Details History of STD (sexually transmitted disease) (099.9, A64) Status: Resolved Procedures Procedure Dates Details [Q] IYDETRW-1-LBCNEPPTK DEHYDROGENASE, QUANT. Date: 6-Apr-2 020 [Q] HEMOGLOBINOPATHY EVALUATION Date: 30-Nov-2019 [Q] [...] - Affirm VPIII (BV Panel) Date: 30-Nov-2019 History of No history of surgery Complet ed Immunization Name Dates Details Tdap (Adacel) on: 22-Sep-2015 Lot #: [id number] Social History Name Dates Details - Status: Name Dates Details Ex-smoker (finding) Never smoked tobacco (finding) Vital Signs Date Test Result Details [id number]:06 Systolic blood pressure 106 mm[Hg] Status: Comments: [...] Details Planned Observations Planned Goals not documented Planned Encounters Appointment; BURKE TEJADA M.D. On: 09-Dec-2019 1 0:30 Appointment; OB/MD, On: 28-Dec-2019 10:00 Appointment; FASHION ILLUSTRATOR, [facility] On: 28-Dec-2019 10:45 Interventions Provided Labs/Procedures/Imaging. [facility] - Affirm VPIII (BV Panel); To Be Done: 30 Nov 2019. [facility] - GC/Chlamydia; To Be Done: 30 Nov 2019[Q] OIZBTCR-3-RBSPRZTPB DEHYDROGENASE, QUANT.; To Be Done: 30 Nov [...] URINALYSIS, COMPLETE; To Be Done: 30 Nov 2019PlanPlan: 1. SIUP: labs ordered today, anatomy sono scheduled2. vWBD: dx at age 8, intermittent nosebleeds otherwise asymptomatic, for hematology referral3. chronic migraines: improved with Compazine and esgic4. h/o anxiety/PTSD: EDPS 22 today, sp visit with SW today and psychiatry referral 5. h/o chlamydia this sp tx, TOR sent today6. Rh- blood status, for Rhogam at 28wk7. MPDPS: desires BTL, to sign consents next visit8. HCM: reports pap this wnlRTC 4 wk with US aptDiscussed with Dr. Seda Ojeda TheriotPKIERA 1. Instructions Name Dates Details Instructions not documented Encounters Appointment; YASHIRA HURT M.D. On: 30-Nov-2019 14:00 Encounter Diagnosis: Problem not documented
--- OUTSIDE RECORDS SUMMARY | 2020-01-24 13:13 | XMS REPORT | Summary of Care ---
:1990 Author Name ARIANA [facility] Address Unavailable Unavailable , Care Team Providers Name Role Phone LULU Toure Unavailable Unavailable LAINA Toure Unavailable Unavailable STEVENSON Toure Unavailable Unavailable JULIO ARIAS [place] Unavailable Unavailable ANUPAM ARIAS Unavailable Unavailable [facility] [place] Unavailable Unavailable Unavailable Unavailable Unavailable Functional Status [...] Status: Resolved Procedures Procedure Dates Details [Q] ZTQZMDJ-5-DJQSXNMGB DEHYDROGENASE, QUANT. Date: 020 [Q] HEMOGLOBINOPATHY EVALUATION Date: 30-Nov-2019 [Q] HIV AB, HIV 1/2, EIA, WITH REFLEXES Date: 30-Nov-2019 [Q] OBSTETRIC PANEL Date: 30-Nov-2019 [Q] TREPONEMA PALLIDUM AB, PARTICLE AGGLUTINATION Date: [QL] CULTURE, URINE, ROUTINE Date: 30-Nov-2019 [QL] URINALYSIS, COMPLETE Date: 30-Nov-2019 [Q] IRON, TIBC AND FERRITIN PANEL Date: 30-Nov-2019 [QL] FOLATE, SERUM Date: 30-Nov-2019 . [facility] - Affirm VPIII (BV Panel) Date: 30-Nov-2019 History of No history of surgery Complet ed Immunization Name Dates Details Tdap (Adacel) on: 22-Sep-2015 Lot #: [id number] Social History Name Dates Details - Status: Name Dates Details Ex-smoker (finding) Never smoked tobacco (finding) Vital Signs Date Test Result Details [id number] Systolic blood pressure 106 mm[Hg] Status: Comments: [...] Planned Goals not documented Planned Encounters Appointment; BUREK TEJADA M.D. On: 09-Dec-2019 1 0:30 Appointment; OB/, On: 28-Dec-2019 10:00 Appointment; DESIGN PRINTER [place], [facility] On: 28-Dec-2019 10:45 Interventions Provided Labs/Procedures/Imaging. [facility] - Affirm VPIII (BV Panel); To Be Done: 30 Nov 2019[Q] TIPYYFF-8-ZNSRGXSCC DEHYDROGENASE, QUANT.; To Be Done: 30 Nov [...] URINE, ROUTINE; To Be Done: 30 Nov 2019[QL] FOLATE, SERUM; To Be Done: 30 Nov 2019[QL] URINALYSIS, COMPLETE; To Be Done: 30 Nov 2019 Instructions Name Dates Details Instructions not documented Encounters Appointment; YASHIRA HURT M.D. On: 30-Nov-2019 14:00 Encounter Diagnosis: Problem not documented
--- OUTSIDE RECORDS SUMMARY | 2020-01-24 13:14 | XMS REPORT | Summary of Care ---
:1990 Author Name STEVENSON Toure Address Unavailable Unavailable , Care Team Providers Name Role Phone LULU Toure Unavailable Unavailable LAINA Toure Unavailable Unavailable STEVENSON Toure Unavailable Unavailable JULIO ARIAS [place] Unavailable Unavailable ANUPAM ARIAS Unavailable Unavailable [facility] [place] Unavailable Unavailable Unavailable Unavailable Unavailable Functional Status [...] Active Migraine (346.90, G43.909) Status: Activ e Trichomonas vaginitis (131.01, A59.01) S tatus: Active Medications Name Dates Details Zofran 4 [...] JUAN LAWSON M.D. Start : 17-Nov-2015 Active metroNIDAZOLE 500 MG Oral Tablet TAKE 4 TABLETS ONCE. Quantity: 4 Refills: 1 CHASE GAMINO M.D. Start : 03-Dec-2019 Active Allergies and Adverse Reactions Name Dates Details No Known Allergies (Allergy) Status: Act j carlos Past Medical History Name Dates Details History of STD (sexually transmitted disease) (099.9, A64) Status: Resolved Procedures Procedure Dates Details [Q] HEMOGLOBINOPATHY EVALUATION Date: 30-Nov-2019 [Q] HIV AB, HIV 1/2, EIA, WITH REFLEXES Date: 30-Nov-2019 [QL] URINALYSIS, COMPLETE Date: 30-Nov-2019 . [facility] - Affirm VPIII (BV Panel) Date: 30-Nov-2019 History of No history of surgery Complet ed Immunization Name Dates Details Tdap (Adacel) on: 22-Sep-2015 Lot #: [id number] Social History Name Dates Details - Status: Name Dates Details Ex-smoker (finding) Never smoked tobacco (finding) Vital Signs Date Test Result Details [id number] Systolic blood pressure 106 mm[Hg] Status: Comments: Location: RUE; Position: Sitting Diastolic blood pressure 73 mm[Hg] Status: Comment s: Location: RUE; Position: Sitting Body height 61 in Status: Weight 191 lb Status: Body mass index (BMI) [Ratio] 36.09 kg/m2 Status: Body surface area Derived from 1.85 m2 Status: formula Heart Rate 83 /min Status: Results Date Description Value Details 30-Nov-20190:00 . [facility] - GC/Chlamydia Case Click ImageLink button for repor t. (Normal) :53 [Q] IRON, TIBC AND FERRITIN PANEL IRON, TOTAL 108 {mcg/dl} (Normal) Range: 40 -190 IRON BINDING CAPACITY 454 {mcg/dL__ca} (Above h igh Range: 250-450 threshold) % SATURATION 24 {%__CALC} (Normal) Range: 16 -45 Comments: SPECIM EN RECEIVED DATE AND TIME: FERRITIN 13 ng/ml (Below low Range: 16-1 54 threshold) Comments: SPECIM EN RECEIVED DATE AND TIME: :53 [Q] OBSTETRIC PANEL WHITE BLOOD CELL COUNT 13.1 {Thousand/u} (Above Range: 3.8-10.8 high threshold) RED BLOOD CELL COUNT 4.07 {Million/uL} (Normal) Range: 3.80-5.10 HEMAGLOBIN 12.3 g/dl (Normal) Range: 11.7- 15.5 HEMATOCRIT 36.0 % (Normal) Range: 35.0-45. 0 MCV 88.5 fL (Normal) Range: 80.0-10 0.0 MCH 30.2 pg (Normal) Range: 27.0-33 .0 MCHC 34.2 g/dl (Normal) Range: 32.0- 36.0 RDW 13.2 % (Normal) Range: 11.0-15. 0 PLATELET COUNT 260 {Thousand/u} (Normal) Range : 140-400 MPV 11.7 fL (Normal) Range: 7.5-12. 5 ABSOLUTE NEUTROPHILS 9930 {cells/uL} (Above Ran ge: 3036-4412 high threshold) ABSOLUTE LYMPHOCYTES 2188 {cells/uL} (Normal) R diandra: 850-3900 ABSOLUTE MONOCYTES 734 {cells/uL} (Normal) Rang e: 200-950 ABSOLUTE EOSINOPHILS 183 {cells/uL} (Normal) Ra nge: 15-500 ABSOLUTE BASOPHILS 66 {cells/uL} (Normal) Range : 0-200 NEUTROPHILS 75.8 % (Normal) LYMPHOCYTES 16.7 % (Normal) MONOCYTES 5.6 % (Normal) EOSINOPHILS 1.4 % (Normal) BASOPHILS 0.5 % (Normal) Comments: SPECIM EN RECEIVED DATE AND TIME: ANTIBODY SCREEN, RBC W/REFL NO ANTIBODIES DETECT ED Comments: Reference range No antibodies detected This assay is a screening test for the detection of red blood cell antibodies. The test is not to be used for pretransfusion screening or for the me ID, TITER AND AG (Normal) dical managemen t of an alloimmunized . SPECIMEN RECEIVED DATE AND TIME: ABO GROUP A RH TYPE RH(D) NEGATIVE Comments: For ad ditional information, please refer to http://education.[employer]/faq/ZPH367 (This link is being provided for informational/educational purposes only.)SPECIMEN RECEIVED DATE AND TIME: RPR (DX) W/REFL TITER AND NON-REACTIVE (Normal ) Range: NON-REACTIVE CONFIRMATORY TESTING Comments: Marcela GREGORY RECEIVED DATE AND TIME: HEPATITIS B SURFACE ANTIGEN NON-REACTIVE (Norm al) Range: NON-REACTIVE Comments: SPECIM EN RECEIVED DATE AND TIME: RUBELLA ANTIBODY (IGG) 3.85 {index} (Normal) Co mments: Index Interpretation ----- <0.90 Not consistent with Immunity 0.90-0.99 Equivocal > or = 1.00 Consistent with Immunity Th e presence of ru cyndie IgG antibody suggests immunization or past or current infection withrubella virus.SPECIMEN RECEIVED DATE AND TIME: :53 [Q] CFZUMCH-6-ZKUJFUGVT DEHYDROGENASE, QUANT. TSTPUUJ-9-NHMROACWL DEHYDROGENASE 18.1 {U/g_Hgb } Range: 7.0-20.5 Comments: SPECIM EN RECEIVED DATE AND TIME: :53 [QL] FOLATE, SERUM FOLATE, SERUM 13.5 ng/ml (Normal) Comments: R eference Range Low: <3.4 Borderline: 3.4-5.4 Normal: >5.4 SPECIMEN RECEIVED DATE AND TIME: :53 [Q] TREPONEMA PALLIDUM AB, PARTICLE AGGL UTINATION TREPONEMA PALLIDUM AB, PARTICLE NONREACTIVE Comments: Reference Range: NonreactiveSPECIMEN RECEIVED DATE AND TIME: AGGLUTINATION :53 [QL] CULTURE, URINE, Comments: REPORT CO MMENT:FASTING:NOPATIENT UNABLE TO VOID; ADVISED TO RETURN FOR COLLECTION. ROUTINE SOURCE: URINE, CLEAN CATCH STATUS: FINAL ISOLATE 1: 50,000-100,000 CFU/mL of Comment s: Lactobacillus speciesMay represent colonizers from external andinternal genitalia. No further testing (includingsusceptibility) will be performed.SPECIMEN RECEIVED DATE AND TIME: (Abnormal) Plan of Care Name Dates Details Planned Observations Planned Goals not documented Planned Encounters Appointment; BURKE TEJADA M.D. On: 09-Dec-2019 1 0:30 Appointment; OB/, On: 28-Dec-2019 10:00 Appointment; TRANSACTIONAL ATTORNEY, [facility] On: 28-Dec-2019 10:45 Interventions Provided Medication ChangesmetroNIDAZOLE 500 MG Oral Tablet - Start Instructions Name Dates Details Instructions not documented Encounters Appointment; YASHIRA HURT M.D. On: 30-Nov-2019 14:00 Encounter Diagnosis: Problem not documented
--- OUTSIDE RECORDS SUMMARY | 2020-01-24 13:15 | XMS REPORT | Summary of Care ---
:1990 Author Name Kayode Stockton Address Unavailable Unavailable , Care Team Providers Name Role Phone LULU Toure Unavailable Unavailable LAINA Toure Unavailable Unavailable Kayode [place] Unavailable Unavailable STEVENSON Toure Unavailable Unavailable JULIO ARIAS [place] Unavailable Unavailable ANUPAM ARIAS Unavailable Unavailable [facility] [...] Details Tdap (Adacel) on: 22-Sep-2015 Lot #: [id number] Social History Name Dates Details - Status: Name Dates Details Ex-smoker (finding) Never smoked tobacco (finding) Vital Signs Date Test Result Details [id number] Systolic blood pressure 106 mm[Hg] Status: Comments: [...] ABSOLUTE NEUTROPHILS 9930 {cells/uL} (Above Ran ge: 1306-4260 high threshold) ABSOLUTE LYMPHOCYTES 2188 {cells/uL} (Normal) [...] For ad ditional information, please refer to http://education.[employer]/faq/QWL177 (This link is being provided for informational/educational [...] virus.SPECIMEN RECEIVED DATE AND TIME: :53 [Q] WTZTSEB-8-HZTKCJPIU DEHYDROGENASE, QUANT. TCYNZFR-4-EUJXBYDGW DEHYDROGENASE 18.1 {U/g_Hgb } Range: 7.0-20.5 Comments: [...] Planned Goals not documented Planned Encounters Appointment; OB/MD, On: 28-Dec-2019 10:00 Appointment; SEED ANALYSIS LABORATORY ASSISTANT, [facility] On: 28-Dec-2019 10:45 Interventions Provided Discussion/SummaryGuideline Used: [facility] that she is cecking in for her 1030 appt. No signs or symptoms reported at this time. Chart review done. Intended Caller Action: Other: Speak with clinical staff. Additional Information: Warm Transfer to [facility] clinic staff front end application developer Instructions Name Dates Details Instructions not documented Encounters Appointment; YASHIRA HURT M.D. On: 30-Nov-2019 14:00 Encounter Diagnosis: Problem not documented
--- OUTSIDE RECORDS SUMMARY | 2020-01-24 13:15 | XMS REPORT | Summary of Care ---
:1990 Author Name TERRELL Toure Address Unavailable Unavailable , Care Team Providers Name Role Phone LULU Toure Unavailable Unavailable LAINA Toure Unavailable Unavailable TERRELL Toure Unavailable Unavailable STEVENSON Toure Unavailable Unavailable JULIO ARIAS [place] Unavailable Unavailable ANUPAM ARIAS Unavailable Unavailable [facility] ARIAS [place] Unavailable Unavailable Unavailable Unavailable Unavailable Functional Status [...] Trichomonas vaginitis (131.01, A59.01) S tatus: Active Panic attacks (300.01, F41.0) Status: Ac tive Depression (311, F32.9) Status: Active Medications Name Dates Details Zofran [...] 4 TABLETS ONCE. Quantity: 4 Refills: 1 STEVENSON M.D., CHASE Start : 03-Dec-2019 Active Escitalopram Oxalate 10 MG Oral Tablet take one-half tablet daily by mouth for 1 week then one (1) tablet daily Quantity: 30 Refills: 5 BURKE TEJADA M.D. Start : 09-Dec-2019 Active traZODone HCl - 50 MG Oral Tablet TAKE HALF-TABLET TO ONE TABLET NEEDED FOR SLEEP. MAY TAKE AN EXTRA HALF IF NEEDED. Quantity: 30 Refills: 5 BURKE TEJADA M.D. Start : 09-Dec-2019 Active Allergies and Adverse Reactions Name Dates [...] Details Tdap (Adacel) on: 22-Sep-2015 Lot #: [id number] Social History Name Dates Details - Status: Name Dates Details Ex-smoker (finding) Never smoked tobacco (finding) Vital Signs Date Test Result Details [id number]:06 Systolic blood pressure 106 mm[Hg] Status: Comments: Location: [facility]; Position: Sitting Diastolic blood pressure 73 mm[Hg] Status: Comment s: Location: [facility]; Position: Sitting Body height 61 in Status: Weight 191 lb Status: Body mass index (BMI) [Ratio] 36.09 kg/m2 Status: Body surface area Derived from 1.85 m2 Status: formula Heart Rate 83 /min Status: Results Date Description Value Details 30-Nov-20190:00 . [facility] - GC/Chlamydia Case Click ImageLink button for repor t. (Normal) [id number] [Q] IRON, TIBC AND FERRITIN PANEL IRON, [...] ABSOLUTE NEUTROPHILS 9930 {cells/uL} (Above Ran ge: 5457-2936 high threshold) ABSOLUTE LYMPHOCYTES 2188 {cells/uL} (Normal) [...] For ad ditional information, please refer to http://education.IDRI ([facility])/faq/KRJ966 (This link is being provided for informational/educational purposes only.)SPECIMEN RECEIVED DATE AND TIME: RPR (DX) W/REFL TITER AND NON-REACTIVE (Normal ) Range: NON-REACTIVE CONFIRMATORY TESTING Comments: S PECIMEN RECEIVED DATE AND TIME: HEPATITIS B SURFACE [...] virus.SPECIMEN RECEIVED DATE AND TIME: :53 [Q] [id number]-6-URNFHXZMF DEHYDROGENASE, QUANT. TNCSFSV-1-HOSENIUQV DEHYDROGENASE 18.1 {U/g_Hgb } Range: 7.0-20.5 Comments: [...] will be performed.SPECIMEN RECEIVED DATE AND TIME: [id number] (Abnormal) Plan of Care Name Dates Details Planned Observations Planned Goals not documented Planned Encounters Appointment; OB/MD, On: 28-Dec-2019 10:00 Appointment; [employer]LERS, [facility] On: 28-Dec-2019 10:45 Interventions Provided Medication ChangesEscitalopram Oxalate 10 MG Oral Tablet - StarttraZODone HCl - 50 MG Oral Tablet - Start Instructions Name Dates Details Instructions not documented Encounters Appointment; YASHIRA HURT M.D. On: 30-Nov-2019 14:00 Encounter Diagnosis: Problem not documented Appointment; BURKE TEJADA M.D. On: 09-Dec-2019 1 0:30 Encounter Diagnosis: Problem not documented
--- OUTSIDE RECORDS SUMMARY | 2020-01-24 13:16 | XMS REPORT | Summary of Care ---
:1990 Author Name VA Toure Address Unavailable Unavailable , Care Team Providers Name Role Phone LULU Toure Unavailable Unavailable LAINA Toure Unavailable Unavailable TERRELL Toure Unavailable Unavailable STEVENSON Toure Unavailable Unavailable JULIO ARIAS [place] Unavailable Unavailable ANUPAM ARIAS Unavailable Unavailable VA ARIAS [place] Unavailable Unavailable Unavailable Unavailable Unavailable Functional Status [...] TABLETS ONCE. Quantity: 4 Refills: 1 STEVENSON Toure CHASE Start : 03-Dec-2019 Active Escitalopram Oxalate 10 MG Oral Tablet take one-half tablet daily by mouth for 1 week then one (1) tablet daily Quantity: 30 Refills: 5 TERRELL Toure BURKE Start : 09-Dec-2019 Active traZODone HCl - 50 MG Oral Tablet TAKE HALF-TABLET TO ONE TABLET NEEDED FOR SLEEP. MAY TAKE AN EXTRA HALF IF NEEDED. Quantity: 30 Refills: Carlos BURKE TEJADA M.D. Start : 09-Dec-2019 Active [...] Details Tdap (Adacel) on: 22-Sep-2015 Lot #: [id number] Social History Name Dates Details - Status: Name Dates Details Ex-smoker (finding) Never smoked tobacco (finding) Vital Signs Date Test Result Details [id number] Systolic blood pressure 106 mm[Hg] Status: Comments: [...] - GC/Chlamydia Case Click ImageLink button for brynn tClair (Normal) [id number] [Q] IRON, TIBC AND FERRITIN PANEL IRON, [...] ABSOLUTE NEUTROPHILS 9930 {cells/uL} (Above Ran ge: 8967-1592 high threshold) ABSOLUTE LYMPHOCYTES 2188 {cells/uL} (Normal) [...] For ad ditional information, please refer to http://education.EcoScra[employer]/faq/YNU507 (This link is being provided for informational/educational [...] virus.SPECIMEN RECEIVED DATE AND TIME: :53 [Q] ZWYYIPJ-6-NWLXYVZST DEHYDROGENASE, QUANT. WJFDNBB-7-FRADNLXET DEHYDROGENASE 18.1 {U/g_Hgb } Range: 7.0-20.5 Comments: [...] will be performed.SPECIMEN RECEIVED DATE AND TIME: [id number] (Abnormal) Plan of Care Name Dates Details Planned Observations Planned Goals not documented Planned Encounters Appointment; OB/MD, On: 28-Dec-2019 10:00 Appointment; GARLAND MACHINE OPERATOR, [facility] On: 28-Dec-2019 10:45 Interventions Provided Medication ChangesEscitalopram Oxalate 10 MG Oral Tablet - StarttraZODone HCl - 50 MG Oral Tablet - Start Instructions Name Dates Details Instructions not documented Encounters Appointment; YASHIRA HURT M.D. On: 30-Nov-2019 14:00 Encounter Diagnosis: Problem not documented Appointment; BURKE TEJADA M.D. On: 09-Dec-2019 1 0:30 Encounter Diagnosis: Problem not documented
--- OUTSIDE RECORDS SUMMARY | 2020-01-24 13:17 | XMS REPORT | Summary of Care ---
:1990 Author Name VA Toure Address Unavailable Unavailable , Care Team Providers Name Role Phone LULU Toure Unavailable Unavailable LAINA Toure Unavailable Unavailable TERRELL Toure Unavailable Unavailable STEVENSON Toure Unavailable Unavailable JULIO ARIAS [place] Unavailable Unavailable ANPUAM ARIAS Unavailable Unavailable VA ARIAS [place] Unavailable [...] HOURS DAILY. Quantity: 10 Refills: 0 LIGIA MAIRNA M.D. Start : 08-Nov-2015 Active Cephalexin 500 [...] Details Tdap (Adacel) on: 22-Sep-2015 Lot #: [id number] Family History Name Dates Details Family history of Bipolar 2 disorder (296.89, F31.81) Status: Active Social History Name Dates Details - Status: Name Dates Details Ex-smoker (finding) Never smoked tobacco (finding) Vital Signs Date Test Result Details [id number] Systolic blood pressure 106 mm[Hg] Status: Comments: [...] Click ImageLink button for repor t. (Normal) [id number] [Q] IRON, TIBC AND FERRITIN PANEL IRON, [...] ABSOLUTE NEUTROPHILS 9930 {cells/uL} (Above Ran ge: 4065-6879 high threshold) ABSOLUTE LYMPHOCYTES 2188 {cells/uL} (Normal) [...] For ad ditional information, please refer to http://[employer].Cycle/faq/VAS382 (This link is being provided for informational/educational [...] virus.SPECIMEN RECEIVED DATE AND TIME: :53 [Q] FAFNBOX-8-LXOBIOYYG DEHYDROGENASE, QUANT. FPQLTXK-9-NHHVDOLTL DEHYDROGENASE 18.1 {U/g_Hgb } Range: 7.0-20.5 Comments: [...] will be performed.SPECIMEN RECEIVED DATE AND TIME: [id number] (Abnormal) Plan of Care Name Dates Details Planned Observations Planned Goals not documented Planned Encounters Psychology Referral Appointment; MELI/, On: 28-Dec-2019 10:00 Appointment; BAGGER MEAT, ROOM3 On: 28-Dec-2019 10:45 Interventions Provided Medication ChangesEscitalopram Oxalate 10 MG Oral Tablet - StarttraZODone HCl - 50 MG Oral Tablet - StartPlan- start escitalopram 5mg daily for 1 week then 10mg daily for panic attacks/depression- start trazodone 25-50mg qHS PRN insomnia- referral placed for [place] psychologist for individual therapy, she is open to therapy and has been looking in [facility] without finding anyone yet- RTC 4 weeks.Discussion/SummaryProgress made toward Goal actively participated. Discussed the following with patient/family/other Safety issues, Patient understands and will comply. Bio-psychosocial factors. Co-Morbidities. Differential diagnosis. Emergency treatment. Maintainingsymptoms. Predisposing symptoms. Precipitating symptoms. Safety plan. Alternative medication(s). Curr ent medication(s). Risks/benefits. Side effects. Target symptoms. Treatment plan. Diagnosis. The patient is experiencing symptoms consistent with panic attacks and general anxiety and depression symptoms including insomnia. She has noticed all of these worsen in . She denies any fears of herex- at this time, he has not had any contact with her for over a year. She is open to trying medication again to reduce panic symptoms and improve mood. Due to poor response to sertraline in [place], will trial escitalopram. The patient reported being diagnosed with bipolar disorder once though denies any history of manic symptoms. Will monitor for development of manic symptoms, and discussed this risk with patient and educated on symptoms to watch for. Also counseled on risks vs benefits oftaking SSRI in and while . The patient expressed understanding and agreed to plan. Instructions Name Dates Details Instructions not documented Encounters Appointment; YASHIRA HURT M.D. On: 30-Nov-2019 14:00 Encounter Diagnosis: Problem not documented Appointment; BURKE TEJADA M.D. On: 09-Dec-2019 1 0:30 Encounter Diagnosis: Problem not documented
--- OUTSIDE RECORDS SUMMARY | 2020-01-24 13:17 | XMS REPORT | Summary of Care ---
:1990 Author Name TERRELL Toure Address Unavailable Unavailable , Care Team Providers Name Role Phone LULU Toure Unavailable Unavailable LAINA Toure Unavailable Unavailable TERRELL Toure Unavailable Unavailable STEVENSON Toure Unavailable Unavailable JULIO ARIAS [place] Unavailable Unavailable ANUPAM ARIAS Unavailable Unavailable VA ARIAS [place] Unavailable Unavailable Unavailable Unavailable Unavailable Functional Status [...] Details Tdap (Adacel) on: 22-Sep-2015 Lot #: [id number] Family History Name Dates Details Family history of Bipolar 2 disorder (296.89, F31.81) Status: Active Social History Name Dates Details - Status: Name Dates Details Ex-smoker (finding) Never smoked tobacco (finding) Vital Signs Date Test Result Details [id number] Systolic blood pressure 106 mm[Hg] Status: Comments: Location: [facility]; Position: Sitting Diastolic blood pressure 73 mm[Hg] Status: Comment s: Location: [facility]; Position: Sitting Body height 61 in Status: Weight 191 lb Status: Body mass index (BMI) [Ratio] 36.09 kg/m2 Status: Body surface area Derived from 1.85 m2 Status: formula Heart Rate 83 /min Status: Results Date Description Value Details 30-Nov-20190:00 . [facility] - GC/Chlamydia Case Click ImageLink button for repor t. (Normal) [id number] [Q] IRON, TIBC AND FERRITIN PANEL IRON, [...] ABSOLUTE NEUTROPHILS 9930 {cells/uL} (Above Ran ge: 6651-6823 high threshold) ABSOLUTE LYMPHOCYTES 2188 {cells/uL} (Normal) [...] For ad ditional information, please refer to http://education.CodeNgo/faq/AXR624 (This link is being provided for informational/educational [...] virus.SPECIMEN RECEIVED DATE AND TIME: :53 [Q] ILJGLJU-9-TTMZYYXRL DEHYDROGENASE, QUANT. RASTCXO-7-MOYBHTOJJ DEHYDROGENASE 18.1 {U/g_Hgb } Range: 7.0-20.5 Comments: [...] will be performed.SPECIMEN RECEIVED DATE AND TIME: [id number] (Abnormal) Plan of Care Name Dates Details Planned Observations Planned Goals not documented Planned Encounters Psychology Referral Appointment; OB/, On: 28-Dec-2019 10:00 Appointment; FLAG SIGNALER, [facility] On: 28-Dec-2019 10:45 Interventions Provided Medication ChangesEscitalopram Oxalate 10 MG Oral Tablet - StarttraZODone HCl - 50 MG Oral Tablet - StartPlan- start escitalopram 5mg daily for 1 week then 10mg daily for panic attacks/depression- start trazodone 25-50mg qHS PRN insomnia- referral placed for [place] psychologist for individual therapy, she is open to therapy and has been looking in [facility] without finding anyone yet- RTC [...] Due to poor response to sertraline in [place], will trial escitalopram. The patient reported being [...]
--- OUTSIDE RECORDS SUMMARY | 2020-01-24 13:18 | XMS REPORT | Summary of Care ---
:1990 Author Name MILADY Toure Address Unavailable Unavailable , Care Team Providers Name Role Phone LULU Toure Unavailable Unavailable LAINA Toure Unavailable Unavailable TERRELL Toure Unavailable Unavailable STEVENSON Toure Unavailable Unavailable JULIO ARIAS [place] Unavailable Unavailable ANUPAM ARIAS Unavailable Unavailable [facility] ARIAS [place] Unavailable Unavailable Unavailable Unavailable Unavailable Functional Status [...] Details No Known Allergies (Allergy) Status: Act andrew Past Medical History Name Dates Details History [...] Details Tdap (Adacel) on: 22-Sep-2015 Lot #: [id number] Family History Name Dates Details Family history of Bipolar 2 disorder (296.89, F31.81) Status: Active Social History Name Dates Details - Status: Name Dates Details Ex-smoker (finding) Never smoked tobacco (finding) Vital Signs Date Test Result Details [id number] Systolic blood pressure 106 mm[Hg] Status: Comments: Location: [facility]; Position: Sitting Diastolic blood pressure 73 mm[Hg] Status: Comment s: Location: [facility]; Position: Sitting Body height 61 in Status: Weight 191 lb Status: Body mass index (BMI) [Ratio] 36.09 kg/m2 Status: Body surface area Derived from 1.85 m2 Status: formula Heart Rate 83 /min Status: Results Date Description Value Details 30-Nov-20190:00 . [facility] - GC/Chlamydia Case Click ImageLink button for repor t. (Normal) [id number] [Q] IRON, TIBC AND FERRITIN PANEL IRON, [...] ABSOLUTE NEUTROPHILS 9930 {cells/uL} (Above Ran ge: 2057-9411 high threshold) ABSOLUTE LYMPHOCYTES 2188 {cells/uL} (Normal) [...] For ad ditional information, please refer to http://education.Novast/faq/WDS409 (This link is being provided for informational/educational purposes only.)SPECIMEN RECEIVED DATE AND TIME: RPR (DX) W/REFL TITER AND NON-REACTIVE (Normal ) Range: NON-REACTIVE CONFIRMATORY TESTING Comments: Marcela COMBSN RECEIVED DATE AND TIME: HEPATITIS B SURFACE [...] virus.SPECIMEN RECEIVED DATE AND TIME: :53 [Q] HEMOGLOBINOPATHY EVALUATION RED BLOOD CELL COUNT 3.96 {Million/uL} (Normal) Range: 3.80-5.10 HEMAGLOBIN 12.4 g/dl (Normal) Range: 11.7- 15.5 HEMATOCRIT 35.4 % (Normal) Range: 35.0-45. 0 MCV 89.4 fL (Normal) Range: 80.0-10 0.0 MCH 31.3 pg (Normal) Range: 27.0-33 .0 RDW 13.4 % (Normal) Range: 11.0-15. 0 Comments: SPECIM EN RECEIVED DATE AND TIME: HEMOGLOBIN A 97.6 % (Normal) Range: >96.0 HEMOGLOBIN F <1.0 % (Normal) Range: <2.0 HEMOGLOBIN A2 (QUANT) 2.4 % (Normal) Range: 1.8 -3.5 INTERPRETATION Comments: Normal phenotype.SPECIMEN RECEIVED DATE AND TIME: :53 [Q] HIV-1/2 Antigen and Antibodies, Four th Generation, with Reflexes HIV AG/AB, NON-REACTIVE Range: NON-REACT ANDREW 4TH GEN (Normal) Comments: HIV-1 antigen and HIV-1/HIV-2 antibodies were notdetected. There is no laboratory evidence of HIVinfection. PLEASE NOTE: This information has been disclosed toyou from records whose confidentiality may beprotected by s brown law. If your state requires suchprotection, then the state law prohibits you frommaking any further disclosure of the informationwithout the specific written consent of the persont o whom it pertai ns, or as otherwise permitted by law.A general authorization for the release of medical orother information is NOT sufficient for this purpose. For additional information please refer t [employer] Pharmaceuticalsttp://educatio n.[employer]/faq/FWA853(This link is being provided for informational/educational purposes only.) The performance of this assay has not been clinicallyvalidated in patients le ss than 2 years old. SPECIMEN RECEIVED DATE AND TIME: :53 [Q] [id number]-5-YLYDZJQCA DEHYDROGENASE, QUANT. KMYMCFA-9-EIMRWNEXC DEHYDROGENASE 18.1 {U/g_Hgb } Range: 7.0-20.5 Comments: [...] Encounters Appointment; OB/MD, On: 28-Dec-2019 10:00 Appointment; CANDY SEPARATOR HARD, ROOM3 On: 28-Dec-2019 10:45 Interventions Provided Medication ChangesmetroNIDAZOLE 500 MG Oral Tablet - Start Instructions Name Dates Details Instructions not documented Encounters Appointment; YASHIRA HURT M.D. On: 30-Nov-2019 14:00 Encounter Diagnosis: Problem not documented
[2020-01-24 13:19] LABS: Urine Blood NEGATIVE (NEG); Urine Glucose NEGATIVE (NEG); Urine Protein NEGATIVE (NEG); Urine pH 6.5 (5.0-7.0)
--- OUTSIDE RECORDS SUMMARY | 2020-01-24 13:21 | XMS REPORT | Summary of Care ---
:1990 Author Name Geremias ShenCalir Address Unavailable Unavailable , Care Team Providers Name Role Phone LULU Toure Unavailable Unavailable LAINA Toure Unavailable Unavailable CATE Toure Unavailable Unavailable TERRELL Toure Unavailable Unavailable [...] Trichomonas vaginitis (131.01, A59.01) S tatus: Active Depression (311, F32.9) Status: Active Panic attacks (300.01, F41.0) Status: Ac tive Medications Name Dates Details Zofran 4 MG [...] TABLETS ONCE. Quantity: 4 Refills: 1 STEVENSON ToureCHASE Start : 03-Dec-2019 Active Escitalopram Oxalate 10 MG Oral Tablet TAKE 1 TABLET DAILY. Quantity: 90 Refills: 2 BURKE TEJADA M.D. Start : 09-Dec-2019 Active traZODone HCl - 50 MG Oral Tablet TAKE 1.5 TABLET BEDTIME Quantity: 135 Refills: 2 BURKE TEJADA M.D. Start : 09-Dec-2019 Active [...] Details Tdap (Adacel) on: 22-Sep-2015 Lot #: [id number] Family History Name Dates Details Family history of Bipolar 2 disorder (296.89, F31.81) Status: Active Social History Name Dates Details - Status: Name Dates Details Ex-smoker (finding) Never smoked tobacco (finding) Vital Signs Date Test Result Details [id number] Systolic blood pressure 113 mm[Hg] Status: Comments: Location: [facility]; Position: Sitting Diastolic blood pressure 75 mm[Hg] Status: Comment s: Location: [facility]; Position: Sitting Body height 61 in Status: Weight 199.375 lb Status: Body mass index (BMI) [Ratio] 37.67 kg/m2 Status: Body surface area Derived from formula 1.89 m2 S tatus: Body temperature 98.3 f Status: Comments: Me thod: Tympanic Heart Rate 88 /min Status: Results Date Description Value Details Results not documented Plan of Care Name Dates Details Planned Observations Planned Goals not documented Planned Encounters Appointment; AUTO PARTS MANAGER, ROOM4 On: 15-Jan-2020 13:00 Instructions Name Dates Details Instructions not documented Encounters Appointment; YASHIRA HURT M.D. On: 30-Nov-2019 14:00 Encounter Diagnosis: Problem not documented Appointment; BURKE TEJADA M.D. On: 09-Dec-2019 1 0:30 Encounter Diagnosis: Problem not documented Appointment; OB/, On: 28-Dec-2019 10:00 Encounter Diagnosis: Problem not documented Appointment; AUTO PARTS MANAGER, [facility] On: 28-Dec-2019 10:45 Encounter Diagnosis: Problem not documented Appointment; YARI STEPHENS M.D. On: 28-Dec-2019 13 :30 Encounter Diagnosis: Problem not documented Appointment; BURKE TEJADA M.D. On: 13-Jan-2020 8 :45 Encounter Diagnosis: Problem not documented Appointment; RILEY ESPOSITO M.D. On: 14-Jan-2020 13:4 5 Encounter Diagnosis: Problem not documented
--- OUTSIDE RECORDS SUMMARY | 2020-01-24 13:21 | XMS REPORT | Summary of Care ---
:1990 Author Name TERRELL Toure Address Unavailable Unavailable , Care Team Providers Name Role Phone LULU Toure Unavailable Unavailable LAINA Toure Unavailable Unavailable TERRELL Toure Unavailable Unavailable STEVENSON Toure Unavailable Unavailable JULIO ARIAS [place] Unavailable Unavailable ANUPAM ARIAS Unavailable Unavailable VA ARIAS [place] Unavailable Unavailable Unavailable Unavailable Unavailable Functional Status [...] TABLETS ONCE. Quantity: 4 Refills: 1 STEVENSON M.D.CHASE Start : 03-Dec-2019 Active Escitalopram Oxalate 10 [...] Details Tdap (Adacel) on: 22-Sep-2015 Lot #: [id number] Family History Name Dates Details Family history of Bipolar 2 disorder (296.89, F31.81) Status: Active Social History Name Dates Details - Status: Name Dates Details Ex-smoker (finding) Never smoked tobacco (finding) Vital Signs Date Test Result Details No Known Vitals to report Results Date Description Value Details Results not documented Plan of Care Name Dates Details Planned Observations Planned Goals not documented Planned Encounters Appointment; BURKE TEJADA M.D. On: 13-Jan-2020 8 :45 Appointment; RILEY ESPOSITO M.D. On: 14-Jan-2020 13:4 5 Appointment; BOTTLE WASHER, [facility] On: 15-Jan-2020 13:00 Interventions Provided Medication ChangesEscitalopram Oxalate 10 MG Oral Tablet - Renew with Changes traZODone HCl - 50 MG Oral Tablet - Renew with Changes Instructions Name Dates Details Instructions not documented Encounters Appointment; YASHIRA HURT M.D. On: 30-Nov-2019 14:00 Encounter Diagnosis: Problem not documented Appointment; BURKE TEJADA M.D. On: 09-Dec-2019 1 0:30 Encounter Diagnosis: Problem not documented Appointment; OB/MD, On: 28-Dec-2019 10:00 Encounter Diagnosis: Problem not documented Appointment; BOTTLE WASHER, ROOM3 On: 28-Dec-2019 10:45 Encounter Diagnosis: Problem not documented Appointment; YARI STEPHENS M.D. On: 28-Dec-2019 13 :30 Encounter Diagnosis: Problem not documented Appointment; BURKE TEJADA M.D. On: 13-Jan-2020 8 :45 Encounter Diagnosis: Problem not documented
--- OUTSIDE RECORDS SUMMARY | 2020-01-24 13:21 | XMS REPORT | Summary of Care ---
:1990 Author Name BLU Toure Address Unavailable Unavailable , Care Team Providers Name Role Phone LULU Toure Unavailable Unavailable LAINA Toure Unavailable Unavailable BLU Toure Unavailable Unavailable TERRELL Toure Unavailable Unavailable [...] Chlamydial infection (079.98, A74.9) Sta tus: Active Depression (311, F32.9) Status: Active Encounter for supervision of normal (V22.1, Z34.90 ) Status: Active Migraine (346.90, G43.909) Status: Activ e Panic attacks (300.01, F41.0) Status: Ac tive Trichomonas vaginitis (131.01, A59.01) S tatus: Active Von Willebrand's disease (286.4, D68.0) Status: Active Medications Name Dates Details Zofran [...] 1 TABLET DAILY. Quantity: 90 Refills: 2 TERRELL Toure, BURKE Start : 09-Dec-2019 Active traZODone HCl - 50 MG Oral Tablet TAKE 1.5 TABLET BEDTIME Quantity: 135 Refills: 2 TERRELL Toure, BURKE Start : 09-Dec-2019 Active Esgic 50-325-40 MG Oral Capsule TAKE 1 TO 2 CAPSULES EVERY 4 TO 6 HOURS NEEDED FOR PAIN. Quantity: 15 Refills: 0 BLU Toure, YASHIRA Start : 14-Jan-2020 Active Prochlorperazine Maleate 10 MG Oral Tablet TAKE 1 TABLET EVERY 8 HOURS NEEDED. Quantity: 15 Refills: 0 BLU Toure, YASHIRA Start : 14-Jan-2020 Active Allergies and Adverse Reactions Name Dates [...] Details Tdap (Adacel) on: 22-Sep-2015 Lot #: [id number] Family History Name Dates Details Family history of Bipolar 2 disorder (296.89, F31.81) Status: Active Social History Name Dates Details - Status: Name Dates Details Ex-smoker (finding) Never smoked tobacco (finding) Vital Signs Date Test Result Details [id number] Systolic blood pressure 113 mm[Hg] Status: Comments: Location: RUE; Position: Sitting Diastolic blood pressure 75 mm[Hg] Status: Comment s: Location: RUE; Position: [...] Planned Goals not documented Planned Encounters Appointment; MURAL PAINTER, ROOM4 On: 15-Jan-2020 13:00 Appointment; ELIF ECKERT M.D. On: 04-Feb-2020 13:3 0 Interventions Provided Medication ChangesEsgic 50-325-40 MG Oral Capsule - StartProchlorperazine Maleate 10 MG Oral Tablet - Start Instructions Name Dates Details Instructions not documented Encounters Appointment; YASHIRA HURT M.D. On: 30-Nov-2019 14:00 Encounter Diagnosis: Problem not documented Appointment; BURKE TEJADA M.D. On: 09-Dec-2019 1 0:30 Encounter Diagnosis: Problem not documented Appointment; OB/, On: 28-Dec-2019 10:00 Encounter Diagnosis: Problem not documented Appointment; MURAL PAINTER, ROOM3 On: 28-Dec-2019 10:45 Encounter Diagnosis: Problem not documented Appointment; YARI STEPHENS M.D. On: 28-Dec-2019 13 :30 Encounter Diagnosis: Problem not documented Appointment; BURKE TEJADA M.D. On: 13-Jan-2020 8 :45 Encounter Diagnosis: Problem not documented Appointment; RILEY ESPOSITO M.D. On: 14-Jan-2020 13:4 5 Encounter Diagnosis: Problem not documented
--- OUTSIDE RECORDS SUMMARY | 2020-01-24 13:22 | XMS REPORT | Summary of Care ---
:1990 Author Name Mason Live Address Unavailable Unavailable , Care Team Providers Name Role Phone LULU Toure Unavailable Unavailable LAINA Toure Unavailable Unavailable BLU Toure Unavailable Unavailable TERRELL Toure Unavailable Unavailable STEVENSON Toure Unavailable Unavailable JULIO ARIAS [facility] Unavailable Unavailable ANUPAM ARIAS Unavailable Unavailable VA ARIAS [facility] Unavailable Unavailable Patricia ARIAS Unavailable Unavailable Unavailable Unavailable Unavailable Functional [...] - Affirm VPIII (BV Panel) Date: 30-Nov-2019 . [facility] - Affirm VPIII (BV Panel) Date: 15-Jan-2020 History of No history of surgery Complet ed Immunization Name Dates Details Tdap (Adacel) on: 22-Sep-2015 Lot #: [id number] Family History Name Dates Details Family history of Bipolar 2 disorder (296.89, F31.81) Status: Active Social History Name Dates Details - Status: Name Dates Details Ex-smoker (finding) Never smoked tobacco (finding) Vital Signs Date Test Result Details [id number] Systolic blood pressure 113 mm[Hg] Status: Comments: [...] of Care Name Dates Details Planned Observations . [facility] - Affirm VPIII (BV Panel) On: 15-Jan-2020 Inten t Planned Goals not documented Planned Encounters Appointment; ELIF ECKERT M.D. On: 04-Feb-2020 13:3 0 Appointment; HEEL MOLDER, ROOM3 On: 12-Feb-2020 13:00 Appointment; KAVIN DE DIOS M.D. On: 09-Mar-2020 11:30 Interventions Provided Medication ChangesEsgic 50-325-40 MG Oral Capsule - StartProchlorperazine Maleate 10 MG Oral Tablet - Start Instructions Name Dates Details Instructions not documented Encounters Appointment; YASHIRA HURT M.D. On: 30-Nov-2019 14:00 Encounter Diagnosis: Problem not documented Appointment; BURKE TEJADA M.D. On: 09-Dec-2019 1 0:30 Encounter Diagnosis: Problem not documented Appointment; OB/MD, On: 28-Dec-2019 10:00 Encounter Diagnosis: Problem not documented Appointment; HEEL MOLDER, ROOM3 On: 28-Dec-2019 10:45 Encounter Diagnosis: Problem not documented Appointment; YARI STEPHENS M.D. On: 28-Dec-2019 13 :30 Encounter Diagnosis: Problem not documented Appointment; BURKE TEJADA M.D. On: 13-Jan-2020 8 :45 Encounter Diagnosis: Problem not documented Appointment; RILEY ESPOSITO M.D. On: 14-Jan-2020 13:4 5 Encounter Diagnosis: Problem not documented
--- OUTSIDE RECORDS SUMMARY | 2020-01-24 13:22 | XMS REPORT | Summary of Care ---
[...] CHASE GAMINO M.D. Start : 03-Dec-2019 Active Escitalopram Oxalate 10 MG Oral Tablet TAKE 1 TABLET DAILY. Quantity: 90 Refills: 2 BURKE TEJADA M.D. Start : 09-Dec-2019 Active traZODone HCl - 50 MG Oral Tablet TAKE 1.5 TABLET BEDTIME Quantity: 135 Refills: 2 BURKE TEJADA M.D. Start : 09-Dec-2019 Active Esgic 50-325-40 MG [...] Details Tdap (Adacel) on: 22-Sep-2015 Lot #: [id number] Family History Name Dates Details Family history of Bipolar 2 disorder (296.89, F31.81) Status: Active Social History Name Dates Details - Status: Name Dates Details Ex-smoker (finding) Never smoked tobacco (finding) Vital Signs Date Test Result Details [id number] Systolic blood pressure 113 mm[Hg] Status: Comments: [...] ECKERT M.D. On: 04-Feb-2020 13:3 0 Appointment; RESEARCH CENTER DIRECTOR, ROOM3 On: 12-Feb-2020 13:00 Appointment; KAVIN DE DIOS M.D. On: 09-Mar-2020 11:30 Interventions Provided Medication ChangesEscitalopram Oxalate 10 MG Oral Tablet - Renew with Changes traZODone HCl - 50 MG Oral Tablet - Renew with ChangesPlanPanic attacks (300.01) (F41.0) Depression (311) (F32.9) - continue escitalopram 10mg daily for panic attacks/depression- increase trazodone to 75mg qHS PRN insomnia- RTC 8 weeks. Discussion/SummaryProgress made toward Goal moderate progress, actively participated. Discussed the following with patient/family/other Safety issues, Patient understands and will comply. Bio-psychosocial factors. Co-Morbidities. Differential diagnosis. Emergency treatment. Maintainingsymptoms. Predisposing symptoms. Precipitating symptoms. Safety plan. Alternative medication(s). Curr ent medication(s). Risks/benefits. Side effects. Target symptoms. Treatment plan. Diagnosis. follow-up 1-2 months The patient has been experiencing symptoms consistent with panic attacks and general anxiety and depression symptoms including insomnia which worsened in . She has had improvement on escitalopram, no longer feeling depressed and reporting reduction in anxiety and panic attacks.Plan to continue treatment. Counseled on risks vs benefits of taking SSRI in and while . The patient expressed understanding and agreed to plan. Instructions Name Dates Details Instructions not documented Encounters Appointment; YASHIRA HURT M.D. On: 30-Nov-2019 14:00 Encounter Diagnosis: Problem not documented Appointment; BURKE TEJADA M.D. On: 09-Dec-2019 1 0:30 Encounter Diagnosis: Problem not documented Appointment; OB/, On: 28-Dec-2019 10:00 Encounter Diagnosis: Problem not documented Appointment; RESEARCH CENTER DIRECTOR, ROOM3 On: 28-Dec-2019 10:45 Encounter Diagnosis: Problem not documented Appointment; YARI STEPHENS M.D. On: 28-Dec-2019 13 :30 Encounter Diagnosis: Problem not documented Appointment; BURKE TEJADA M.D. On: 13-Jan-2020 8 :45 Encounter Diagnosis: Problem not documented
--- OUTSIDE RECORDS SUMMARY | 2020-01-24 13:22 | XMS REPORT | Summary of Care ---
:1990 Author Name ALLAN Toure Address Unavailable Unavailable , Care Team [...] Details Tdap (Adacel) on: 22-Sep-2015 Lot #: [id number] Family History Name Dates Details Family history of Bipolar 2 disorder (296.89, F31.81) Status: Active Social History Name Dates Details - Status: Name Dates Details Ex-smoker (finding) Never smoked tobacco (finding) Vital Signs Date Test Result Details [id number] Systolic blood pressure 113 mm[Hg] Status: Comments: [...] Planned Goals not documented Planned Encounters Appointment; FITZ WILSON D.O. On: 21-Jan-2020 15: 30 Appointment; ELIF ECKERT M.D. On: 04-Feb-2020 13:3 0 Appointment; AUTHORIZATION REPRESENTATIVE, ROOM3 On: 12-Feb-2020 13:00 Appointment; KAVIN DE DIOS M.D. On: 09-Mar-2020 11:30 Interventions Provided InstructionsPatient Specific Education Given; Done: 03 Nov 2015 Instructions Name Dates Details Instructions not documented Encounters Appointment; NOLVIA, FELLOW2 On: 03-Nov-2015 9:00 Encounter Diagnosis: Problem not documented
--- OUTSIDE RECORDS SUMMARY | 2020-01-24 13:22 | XMS REPORT | Summary of Care ---
:1990 Author Name MILADY Toure Address Unavailable Unavailable , Care Team Providers Name Role Phone LULU Toure Unavailable Unavailable MILADY Toure Unavailable Unavailable LAINA Toure Unavailable Unavailable [...] 4 TABLETS ONCE. Quantity: 4 Refills: 1 YASHIRA GAMINO M.D.AH Start : 03-Dec-2019 Active Escitalopram Oxalate 10 [...] Details Tdap (Adacel) on: 22-Sep-2015 Lot #: [id number] Family History Name Dates Details Family history of Bipolar 2 disorder (296.89, F31.81) Status: Active Social History Name Dates Details - Status: Name Dates Details Ex-smoker (finding) Never smoked tobacco (finding) Vital Signs Date Test Result Details [id number] Systolic blood pressure 113 mm[Hg] Status: Comments: [...] /min Status: Results Date Description Value Details [id number]-[id number]:00 . [facility] - Affirm VPIII (BV Panel) Case Click ImageLink button for repor t. (Normal) Plan of Care Name Dates Details Planned Observations Planned Goals not documented Planned Encounters Appointment; FITZ WILSON D.O. On: 21-Jan-2020 15: 30 Appointment; ELIF ECKERT M.D. On: 04-Feb-2020 13:3 0 Appointment; BUFFET RUNNER, ROOM3 On: 12-Feb-2020 13:00 Appointment; KAVIN DE DIOS M.D. On: 09-Mar-2020 11:30 Instructions Name Dates Details Instructions not documented Encounters Appointment; YASHIRA HURT M.D. On: 30-Nov-2019 14:00 Encounter Diagnosis: Problem not documented Appointment; BURKE TEJADA M.D. On: 09-Dec-2019 1 0:30 Encounter Diagnosis: Problem not documented Appointment; OB/, On: 28-Dec-2019 10:00 Encounter Diagnosis: Problem not documented Appointment; BUFFET RUNNER, ROOM3 On: 28-Dec-2019 10:45 Encounter Diagnosis: Problem not documented Appointment; YARI STEPHENS M.D. On: 28-Dec-2019 13 :30 Encounter Diagnosis: Problem not documented Appointment; BURKE TEJADA M.D. On: 13-Jan-2020 8 :45 Encounter Diagnosis: Problem not documented Appointment; RILEY ESPOSITO M.D. On: 14-Jan-2020 13:4 5 Encounter Diagnosis: Problem not documented Appointment; BUFFET RUNNER, ROOM4 On: 15-Jan-2020 13:00 Encounter Diagnosis: Problem not documented
--- OUTSIDE RECORDS SUMMARY | 2020-01-24 13:23 | XMS REPORT | Summary of Care ---
:1990 Author Name VA Toure Address Unavailable Unavailable , Care Team Providers Name Role Phone LULU Toure Unavailable Unavailable VA Toure Unavailable Unavailable LAINA Toure Unavailable Unavailable [...] M.D.AH Start : 03-Dec-2019 Active Escitalopram Oxalate 20 MG Oral Tablet TAKE 1 TABLET DAILY. Quantity: 30 Refills: 3 KAVIN DE DIOS M.D. Start : 09-Dec-2019 Active traZODone HCl - 50 MG Oral Tablet TAKE 1.5 TABLET BEDTIME Quantity: 135 Refills: 2 BURKE TEJADA M.D. Start : 09-Dec-2019 Active Esgic 50-325-40 MG Oral Capsule TAKE 1 TO 2 CAPSULES EVERY 4 TO 6 HOURS NEEDED FOR PAIN. Quantity: 15 Refills: 0 YASHIRA HURT M.D. Start : 14-Jan-2020 Active Prochlorperazine Maleate 10 [...] Details Tdap (Adacel) on: 22-Sep-2015 Lot #: [id number] Family History Name Dates Details Family history of Bipolar 2 disorder (296.89, F31.81) Status: Active Social History Name Dates Details - Status: Name Dates Details Ex-smoker (finding) Never smoked tobacco (finding) Vital Signs Date Test Result Details [id number]-[id number] Systolic blood pressure 113 mm[Hg] Status: Comments: [...] /min Status: Results Date Description Value Details [id number] . [facility] - Affirm VPIII (BV Panel) Case Click ImageLink button for repor t. (Normal) Plan of Care Name Dates Details Planned Observations Planned Goals not documented Planned Encounters Appointment; FITZ WILSON D.O. On: 21-Jan-2020 15: 30 Appointment; ELIF ECKERT M.D. On: 04-Feb-2020 13:3 0 Appointment; COURSEWARE DEVELOPER, ROOM3 On: 12-Feb-2020 13:00 Appointment; KAVIN DE DIOS M.D. On: 09-Mar-2020 11:30 Interventions Provided Medication ChangesEscitalopram Oxalate 20 MG Oral Tablet - Renew Instructions Name Dates Details Instructions not documented Encounters Appointment; YASHIRA HURT M.D. On: 30-Nov-2019 14:00 Encounter Diagnosis: Problem not documented Appointment; BURKE TEJADA M.D. On: 09-Dec-2019 1 0:30 Encounter Diagnosis: Problem not documented Appointment; OB/, On: 28-Dec-2019 10:00 Encounter Diagnosis: Problem not documented Appointment; COURSEWARE DEVELOPER, ROOM3 On: 28-Dec-2019 10:45 Encounter Diagnosis: Problem not documented Appointment; YARI STEPHENS M.D. On: 28-Dec-2019 13 :30 Encounter Diagnosis: Problem not documented Appointment; BURKE TEJADA M.D. On: 13-Jan-2020 8 :45 Encounter Diagnosis: Problem not documented Appointment; RILEY ESPOSITO M.D. On: 14-Jan-2020 13:4 5 Encounter Diagnosis: Problem not documented Appointment; COURSEWARE DEVELOPER, ROOM4 On: 15-Jan-2020 13:00 Encounter Diagnosis: Problem not documented
--- OUTSIDE RECORDS SUMMARY | 2020-01-24 13:23 | XMS REPORT | Summary of Care ---
:1990 Author Name KATIE Lynn Address Unavailable Unavailable , Care Team Providers Name Role Phone LULU Toure Unavailable Unavailable VA Toure Unavailable Unavailable LAINA Toure Unavailable Unavailable BLU Toure Unavailable Unavailable TERRELL Toure Unavailable Unavailable KATIE Lynn Unavailable Unavailable STEVENSON Toure Unavailable Unavailable JULIO ARIAS UT Unavailable Unavailable ANUPAM ARIAS Unavailable Unavailable VA ARIAS UT Unavailable Unavailable Patricia ARIAS Unavailable Unavailable LINETTE ARIAS [facility] Unavailable Unavailable Unavailable Unavailable Unavailable Functional Status Name Dates Details Functional status health issues are not documented Status: Name Dates Details Cognitive status health issues are not documented Status: Problems Name Dates Details Nausea and vomiting (787.01, R11.2) Stat us: Active 25 to 26 weeks gestation of (V22.2) Status: Active High-risk (V23.9, O09.90) Stat us: Active Palpitations (785.1, R00.2) Status: Acti ve Chlamydial infection (079.98, A74.9) Sta tus: Active Depression (311, F32.9) Status: Active Migraine (346.90, G43.909) Status: Activ e Panic attacks (300.01, F41.0) Status: Ac tive Trichomonas vaginitis (131.01, A59.01) S tatus: Active Von Willebrand's disease (286.4, D68.0) Status: Active Encounter for supervision of normal (V22.1, Z34.90 ) Status: Active Tachycardia (785.0, R00.0) Status: Activ e Urinary tract infection (599.0, N39.0) S tatus: Active Medications Name Dates Details Zofran 4 MG Oral Tablet Refills: 0 Start : 07-Jul-2015 Active Nitrofurantoin Monohyd Macro 100 MG Oral Capsule TAKE 1 CAPSULE EVERY 12 HOURS DAILY. Quantity: 10 Refills: 0 LIGIA MARINA M.D. Start : 08-Nov-2015 Active Cephalexin 500 MG Oral Capsule TAKE 1 CAPSULE EVERY 12 HOURS DAILY. Quantity: 14 Refills: 0 LULU Toure JUAN Start : 17-Nov-2015 Active metroNIDAZOLE 500 MG Oral Tablet TAKE 4 TABLETS ONCE. Quantity: 4 Refills: 1 STEVENSON Toure CHASE Start : 03-Dec-2019 Active Escitalopram Oxalate 20 MG Oral Tablet TAKE 1 TABLET DAILY. Quantity: 30 Refills: 3 JOSELUIS DE DIOS M.D.HAKAR Start : 09-Dec-2019 Active traZODone HCl - 50 MG Oral Tablet TAKE 1.5 TABLET BEDTIME Quantity: 135 Refills: 2 TERRELL Toure BURKE Start : 09-Dec-2019 Active Esgic 50-325-40 [...] A64) Status: Resolved Procedures Procedure Dates Details EKG w/Rhythm Strip Date: 21-Jan-2020 [QL] URINALYSIS, COMPLETE Date: 21-Jan-2020 [Q] HEMOGLOBINOPATHY EVALUATION Date: 30-Nov-2019 [Q] HIV AB, HIV 1/2, EIA, WITH REFLEXES Date: 30-Nov-2019 [QL] URINALYSIS, COMPLETE Date: 30-Nov-2019 . [facility] - Affirm VPIII (BV Panel) Date: 30-Nov-2019 [Q] GLUCOSE, GESTATIONAL SCREEN (50G)-130 CUTOFF Date: [QL] CBC (INCLUDES DIFF/PLT) Date: 21-Jan-2020 [QL] CULTURE, URINE, ROUTINE Date: 21-Jan-2020 History of No history of surgery Complet ed Immunization Name Dates Details Tdap (Adacel) on: 22-Sep-2015 Lot #: [id number] Family History Name Dates Details Family history of Bipolar 2 disorder (296.89, F31.81) Status: Active Social History Name Dates Details - Status: Name Dates Details Ex-smoker (finding) Never smoked tobacco (finding) Vital Signs Date Test Result Details [id number] Heart Rate 76 /min Status: O2 SAT 97 % Status: 54-[id number]:44 Systolic blood pressure 110 mm[Hg] Status: Comments: Location: RUE; Position: Sitting Diastolic blood pressure 70 mm[Hg] Status: Comment s: Location: RUE; Position: Sitting Heart Rate 84 /min Status: Body height 61 in Status: Weight 202.25 lb Status: Body mass index (BMI) [Ratio] 38.22 kg/m2 Status: Body surface area Derived from formula 1.9 m2 S tatus: Body temperature 97.1 f Status: Comments: Me thod: Oral [id number] Systolic blood pressure 113 mm[Hg] Status: Comments: Location: RUE; Position: Sitting Diastolic blood pressure 75 mm[Hg] Status: Comment s: Location: RUE; Position: Sitting Heart Rate 88 /min Status: Body height 61 in Status: Weight 199.375 lb Status: Body mass index (BMI) [Ratio] 37.67 kg/m2 Status: Body surface area Derived from formula 1.89 m2 S tatus: Body temperature 98.3 f Status: Comments: Me thod: Tympanic Results Date Description Value Details [id number]-[id number] . [facility] - Affirm VPIII (BV Panel) Case Click ImageLink button for repor t. (Normal) Plan of Care Name Dates Details Planned Observations Planned Goals not documented Planned Encounters Appointment; ELIF ECKERT M.D. On: 04-Feb-2020 13:3 0 Appointment; LOCKS TENDER, ROOM3 On: 12-Feb-2020 13:00 Appointment; KAVIN DE DIOS M.D. On: 09-Mar-2020 11:30 Interventions Provided Labs/Procedures/Imaging[Q] GLUCOSE, GESTATIONAL SCREEN (50G)-130 CUTOFF; To Be Done: 21 Jan 2020[QL] CBC (INCLUDES DIFF/PLT); To Be Done: 21 Jan 2020[QL] CULTURE, URINE, ROUTINE; To Be Done: 21 Jan 2020[QL] URINALYSIS, COMPLETE; To Be Done: 21 Jan 2020EKG w/Rhythm Strip; To Be Done: 21 Jan 2020 Instructions Name Dates Details Instructions not documented Encounters Appointment; YASHIRA HUTR M.D. On: 30-Nov-2019 14:00 Encounter Diagnosis: Problem not documented Appointment; BURKE TEJADA M.D. On: 09-Dec-2019 1 0:30 Encounter Diagnosis: Problem not documented Appointment; OB/, On: 28-Dec-2019 10:00 Encounter Diagnosis: Problem not documented Appointment; LOCKS TENDER, ROOM3 On: 28-Dec-2019 10:45 Encounter Diagnosis: Problem not documented Appointment; YARI STEPHENS M.D. On: 28-Dec-2019 13 :30 Encounter Diagnosis: Problem not documented Appointment; BURKE TEJADA M.D. On: 13-Jan-2020 8 :45 Encounter Diagnosis: Problem not documented Appointment; RILEY ESPOSITO M.D. On: 14-Jan-2020 13:4 5 Encounter Diagnosis: Problem not documented Appointment; LOCKS TENDER, ROOM4 On: 15-Jan-2020 13:00 Encounter Diagnosis: Problem not documented Appointment; FITZ WILSON D.O. On: 21-Jan-2020 15: 30 Encounter Diagnosis: Problem not documented
[2020-01-24 13:31] LABS: Urine Bacteria 20-50 /HPF (<20); Urine RBC <5 /HPF (NONE SEEN)
[2020-01-24 13:32] LABS: Urine Culture Reflex Order REFLEXED; Urine Mucus 2+ /HPF (NONE SEEN)
[2020-01-24 13:39] LABS: Absolute Lymphocytes (CBC) 1.7 K/uL (0.7-4.9); Basophils % 0.4 % (0-1.3); Lymphocytes % 13.6 % (15.3-44.8); MPV 9.8 fL (7.6-11.3); RBC Red Blood Cell Count 4.04 M/uL (3.86-4.86)
[2020-01-24] MEDS ORDERED: NA CHLORIDE 0.9% 1,000 ML ONE (13:46)
[2020-01-24] MEDS ORDERED: CEFTRIAXONE/SWI 1gm 1 GM/10 ML SYR ONE (13:46)
[2020-01-24 14:04] LABS: BUN Blood Urea Nitrogen 9 mg/dL (7-18); Bicarbonate 23 mmol/L (21-32); Glucose Level 97 mg/dL (74-106); Potassium 3.6 mmol/L (3.5-5.1); Sodium Level 136 mmol/L (136-145)
[2020-01-24] MEDS ORDERED: ACETAMINOPHEN 325 MG TABLET ONE (14:15)
[2020-01-24 16:25] VITALS: BP 94/47; O2SAT 99
--- NOTE | 2020-01-25 19:05 | EDPHYS ---
Physician Documentation [facility] Name: Lauren Polanco Age: 29 yrs Sex: Female : 1990 Arrival Date: 01/24/2020 Time: 12:47 Bed 16 Private MD: ED Physician Suman Chavez HPI: 01/23 13:19 This 29 yrs old Female presents to ER via Ambulatory with complaints of Pain pm1 With Urination, Low Back Pain, Leg Pain. 13:19 The patient presents with urinary symptoms. Onset: The symptoms/episode began/occurred pm1 2 day(s) ago. Modifying factors: The symptoms are alleviated by nothing, the symptoms are aggravated by urinating. Associated signs and symptoms: Pertinent positives: Right low back pain with radiation to right leg. Severity of symptoms: in the emergency department the symptoms are actually worse. The patient has not experienced similar symptoms in the past. The patient has been recently seen by a physician: monitoring of fetus Reports blood clot in placenta and abnormality of umbilical cord. Has follow up appointment for continued monitoring with her OB. Patient without any vaginal bleeding, discharge, or pelvic pain. CEO: 12:59 LMP N/A - Irregular menses iw Historical: - Allergies: 12:59 yellow and black antibiotic pill; iw - Home Meds: 12:59 Lexapro 20 mg Oral tab 1 tab once daily [Active]; Trazodone 75 mg Oral once daily iw [Active]; - PMHx: 12:59 [place]; Anxiety; iw - PSHx: 12:59 Appendectomy; Tonsillectomy; Adenoids; D \T\ C; cyst removed from eye; iw - Immunization history:: Adult Immunizations up to date. - Social history:: Smoking status: Patient/guardian denies using tobacco, the patient reports quitting approximately 1 years ago. ROS: 13:19 Positive for flank pain, burning with urination, of the right low back, Negative for pm1 vaginal bleeding, vaginal discharge. 13:19 Constitutional: Negative for fever, chills, and weight loss, Cardiovascular: Negative for chest pain, palpitations, and edema, Respiratory: Negative for shortness of breath, cough, wheezing, and pleuritic chest pain, Abdomen/GI: Negative for abdominal pain, nausea, vomiting, diarrhea, and constipation. 13:19 MS/Extremity: Negative for injury and deformity, Skin: Negative for injury, rash, and discoloration. 13:19 Neuro: Negative for headache, weakness, numbness, tingling, and seizure. 13:19 Back: Negative for injury or acute deformity, decreased range of motion. Exam: 13:19 Constitutional: This is a well developed, well nourished patient who is awake, alert, pm1 and in no acute distress. Head/Face: Normocephalic, atraumatic. Chest/axilla: Normal chest wall appearance and motion. Nontender with no deformity. No lesions are appreciated. 13:19 Skin: Warm, dry with normal turgor. Normal color with no rashes, no lesions, and no evidence of cellulitis. MS/ Extremity: Pulses equal, no cyanosis. Neurovascular intact. Full, normal range of motion. 13:19 Cardiovascular: Exam negative for acute changes, Rate: normal, Rhythm: regular. 13:19 Respiratory: Exam negative for acute changes, respiratory distress, shortness of breath. 13:19 Abdomen/GI: Inspection: gravid appearance, is noted, Palpation: abdomen is soft and non-tender, in all quadrants. 13:19 Back: pain, that is very mild, of the right low back, normal spinal alignment noted. 13:19 Neuro: Exam negative for acute changes, Orientation: is normal, Mentation: is normal, Motor: is normal, moves all fours, strength is normal. Vital Signs: 12:54 BP 94 / 47; Pulse 77; Resp 16; Pulse Ox 99% on R/A; Weight 91.17 kg; Height 5 ft. 1 in. iw (154.94 cm); Pain 6/10; 15:34 BP 114 / 52; Pulse 64; Resp 14; Pulse Ox 99% on R/A; Pain 0/10; ls4 12:54 Body Mass Index 37.98 (91.17 kg, 154.94 cm) iw MDM: 13:02 Patient medically screened. pm1 15:48 Data reviewed: vital signs. Data interpreted: Pulse oximetry: on room air is 99 %. pm1 Interpretation: normal. Counseling: I had a detailed discussion with the patient and/or guardian regarding: the historical points, exam findings, and any diagnostic results supporting the discharge/admit diagnosis, lab results, the need for outpatient follow up, to return to the emergency department if symptoms worsen or persist or if there are any questions or concerns that arise at home. 01/23 13:12 Order name: Urine Microscopic Only; Complete Time: 13:46 pm1 01/23 13:12 Order name: Basic Metabolic Panel; Complete Time: 14:08 pm1 01/23 13:12 Order name: CBC with Diff; Complete Time: 13:46 pm1 01/23 13:18 Order name: Urine Dipstick--Ancillary (enter results); Complete Time: 13:46 eb 01/23 13:18 Order name: Urine --Ancillary (enter results); Complete Time: 13:46 eb 01/23 13:33 Order name: Urine Culture EDMS 01/23 13:12 Order name: Urine Dipstick-Ancillary (obtain specimen); Complete Time: 13:45 pm1 01/23 13:12 Order name: IV Saline Lock; Complete Time: 13:45 pm1 01/23 13:12 Order name: Labs collected and sent; Complete Time: 13:45 pm1 01/23 13:47 Order name: FHT's; Complete Time: 16:03 pm1 Administered Medications: 13:44 Drug: NS 0.9% 1000 ml Route: IV; Rate: 1000 ml; Site: left antecubital; ca1 14:44 Follow up: IV Status: Completed infusion; IV Intake: 1000ml ls4 13:44 Drug: Rocephin 1 grams Route: IV; Rate: calculated rate; Site: left antecubital; ca1 14:06 Follow up: Response: No adverse reaction ls4 14:10 Drug: Tylenol 650 mg Route: PO; ca1 14:30 Follow up: Response: No adverse reaction; Marked relief of symptoms ls4 Disposition: 01/24 15:10 Co-signature as Attending Physician, Suman Chavez MD I agree with the assessment and kdr plan of care. Disposition: 01/24/20 15:48 Discharged to Home. Impression: Urinary tract infection, site not specified. - Condition is Stable. - Discharge Instructions: Urinary Tract Infection, Adult, and Urinary Tract Infection. - Prescriptions for Macrobid 100 mg Oral Capsule - take 1 capsule by ORAL route every 12 hours for 10 days; 20 capsule. - Medication Reconciliation Form, Thank You Letter, Antibiotic Education, Prescription Opioid Use form. - Follow up: Emergency Department; When: As needed; Reason: Worsening of condition. Follow up: Private Physician; When: 2 - 3 days; Reason: Recheck today's complaints, Continuance of care, Re-evaluation by your physician. - Problem is new. - Symptoms have improved. Signatures: Dispatcher [employer] EDMS Suman Chavez MD MD kdr Isatu Hylton RN RN iw Karolyn Lewis, ZOË RN rb1 Titi Olmedo, MEAT PICKLER MEAT PICKLER pm1 Mildred Vasquez RN RN ca1 Carolann Pavon RN ls4 Corrections: (The following items were deleted from the chart) 01/23 16:12 15:48 01/24/2020 15:48 Discharged to Home. Impression: Urinary tract infection, site rb1 not specified. Condition is Stable. Forms are Medication Reconciliation Form, Thank You Letter, Antibiotic Education, Prescription Opioid Use. Follow up: Emergency Department; When: As needed; Reason: Worsening of condition. Follow up: Private Physician; When: 2 - 3 days; Reason: Recheck today's complaints, Continuance of care, Re-evaluation by your physician. Problem is new. Symptoms have improved. pm1
--- NOTE | 2020-01-25 19:05 | ER ---
Nurse's Notes [facility] Name: Lauren Polanco Age: 29 yrs Sex: Female : 1990 Arrival Date: 01/24/2020 Time: 12:47 Bed 16 Private MD: Diagnosis: Urinary tract infection, site not specified Presentation: 01/23 12:54 Chief complaint: Patient states: right low pain, leg pain since last night, garces when iw she pees since Saturday , tried Monistat with no relief, is approx 25 weeks , also states she has a blood clot in her placenta and the umbilical cord is on the outer edge of the placenta. Coronavirus screen: Proceed with normal triage. Patient denies a cough. Patient denies shortness of breath or difficulty breathing. Patient denies measured and/or subjective temperature greater than 100.4F prior to today's visit. Patient denies travel on a cruise ship or to a country the [facility] currently lists as an affected area. Patient denies contact with known and/or suspected case of COVID-19. Ebola Screen: Patient negative for fever greater than or equal to 101.5 degrees Fahrenheit, and additional compatible Ebola Virus Disease symptoms Patient denies exposure to infectious person. Patient denies travel to an Ebola-affected area in the 21 days before illness onset. No symptoms or risks identified at this time. Initial Sepsis Screen: Does the patient meet any 2 criteria? No. Patient's initial sepsis screen is negative. Does the patient have a suspected source of infection? No. Patient's initial sepsis screen is negative. Risk Assessment: Do you want to hurt yourself or someone else? Patient reports no desire to harm self or others. Onset of symptoms was January 22, 2020. 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 - Social history:: Smoking status: Patient/guardian denies using tobacco, the patient reports quitting approximately 1 years ago. Screenin:10 Abuse screen: Denies threats or abuse. Denies injuries from another. Nutritional ca1 screening: No deficits noted. Tuberculosis screening: No symptoms or risk factors identified. Fall Risk IV access (20 points). Assessment: 13:10 General: Appears in no apparent distress. comfortable, Behavior is calm, cooperative, ca1 appropriate for age. Pain: Complains of pain in groin Pain currently is 10 out of 10 on a pain scale. Neuro: Level of Consciousness is awake, alert, obeys commands, Oriented to person, place, time, situation. Cardiovascular: Heart tones S1 S2 present Capillary refill < 3 seconds Patient's skin is warm and dry. Respiratory: Airway is patent Respiratory effort is even, unlabored, Respiratory pattern is regular, symmetrical, Breath sounds are clear bilaterally. GI: Abdomen is round Bowel sounds present X 4 quads. Abd is non tender X 4 quads. : Reports burning with urination, urgency, urinary frequency. EENT: No signs and/or symptoms were reported regarding the EENT system. Derm: Skin is intact, is healthy with good turgor, Skin is pink, warm \T\ dry. Musculoskeletal: Circulation, motion, and sensation intact. Capillary refill < 3 seconds. Vital Signs: 12:54 BP 94 / 47; Pulse 77; Resp 16; Pulse Ox 99% on R/A; Weight 91.17 kg; Height 5 ft. 1 in. iw (154.94 cm); Pain 6/10; 15:34 BP 114 / 52; Pulse 64; Resp 14; Pulse Ox 99% on R/A; Pain 0/10; ls4 12:54 Body Mass Index 37.98 (91.17 kg, 154.94 cm) iw Vitals: 15:34 Heart Tones 152 . ls4 ED Course: 12:47 Patient arrived in ED. as 12:57 Triage completed. iw 12:59 Arm band placed on. iw 13:02 Titi Olmedo NP is PHCP. pm1 13:02 Suman Chavez MD is Attending Physician. pm1 13:06 Mildred Vasquez RN is Primary Nurse. ca1 13:10 Patient has correct armband on for positive identification. Bed in low position. Call ca1 light in reach. Side rails up X 1. Pulse ox on. NIBP on. Warm blanket given. 14:05 Report given to ZOË Vuong. ca1 14:29 Urine Culture Sent. ls4 15:30 No provider procedures requiring assistance completed. IV discontinued, intact, ls4 bleeding controlled, No redness/swelling at site. Pressure dressing applied. Administered Medications: 13:44 Drug: NS 0.9% 1000 ml Route: IV; Rate: 1000 ml; Site: left antecubital; ca1 14:44 Follow up: IV Status: Completed infusion; IV Intake: 1000ml ls4 13:44 Drug: Rocephin 1 grams Route: IV; Rate: calculated rate; Site: left antecubital; ca1 14:06 Follow up: Response: No adverse reaction ls4 14:10 Drug: Tylenol 650 mg Route: PO; ca1 14:30 Follow up: Response: No adverse reaction; Marked relief of symptoms ls4 Intake: 14:44 IV: 1000ml; Total: 1000ml. ls4 Outcome: 15:34 Condition: good ls4 15:34 Discharge instructions given to patient, family, Instructed on discharge instructions, follow up and referral plans. medication usage, safety practices, Demonstrated understanding of instructions, follow-up care, medications. 15:48 Discharge ordered by MD. pm1 16:11 Discharged to home ambulatory. rb1 16:11 Condition: stable 16:11 Discharge instructions given to patient, Instructed on discharge instructions, follow up and referral plans. medication usage, Demonstrated understanding of instructions, follow-up care, medications, Prescriptions given X 1. 16:12 Patient left the ED. rb1 Signatures: Heather Chavez Irene, RN RN iw Karolyn Lewis RN RN rb1 Titi Olmedo, SOLAR SALES CONSULTANT SOLAR SALES CONSULTANT pm1 Carolann Pavon RN RN ls4 Mildred Vasquez RN RN ca1
== END 2020-01-24 16:12 | disposition home or self-care (01) ==
LOC: ER 12:44
DX: O23.42 Unspecified infection of urinary tract in pregnancy, second trimester (principal); O99.342 Other mental disorders complicating pregnancy, second trimester; Z3A.25 25 weeks gestation of pregnancy
CPT/HCPCS: 96361; 87088; 85025; 87086; 80048; 36415; 81025; 96374; 99284; J0696; J7030; 81003; 81015

== ENCOUNTER 2020-11-09 00:12 | Emergency (ER) | payer OTHER ==
--- OUTSIDE RECORDS SUMMARY | 2020-11-09 00:17 | XMS REPORT | Continuity of Care Document ---
:1990 Author Organization [facility] t Address [address] [place] [address] Dr. Morales [address] [place] [address] Care Team Providers Name Role Phone Leo Bailon MD Attending Clinician SONIDO Attending Clinician Unavailable BAIRON Attending Clinician Unavailable MARQUISE Attending Clinician Unavailable ADULT Attending Clinician Unavailable NGSHALINI Attending Clinician Unavailable JEAN CLAUDE Attending Clinician Unavailable OBGYN Attending Clinician Unavailable JOHANNY Attending Clinician Unavailable CARLTONING Attending Clinician Unavailable EXECUTIVE ASSISTANT TO PRESIDENT Attending Clinician Unavailable EXECUTIVE ASSISTANT TO PRESIDENT Attending Clinician Unavailable MIN Attending Clinician Unavailable VA Attending Clinician Unavailable STEVENSON Attending Clinician Unavailable TOMEKA Attending Clinician Unavailable MALLY Attending Clinician Unavailable KATIE Attending Clinician Unavailable EXECUTIVE ASSISTANT TO PRESIDENT Attending Clinician Unavailable CATE Attending Clinician Unavailable TERRELL Attending Clinician Unavailable ANGELO Attending Clinician Unavailable OB/ Attending Clinician Unavailable HURT Attending Clinician Unavailable Alycia PENA Attending Clinician Unavailable MFPauly Attending Clinician Unavailable Alycia PENA Admitting Clinician Unavailable Problems Condition Condition Condition Status Onset Resolution Last Treating Co mments Source Name Details Category Date Date Treatment Clinician Date Left sided Left sided Disease Active [facility] numbness [facility]ness 01-09 [facility] [place] Headache(7 Headache([address] [facility] 84.0) 84.0) 01-09 [facility] [place] Von Von Disease Active [facility] Willebrand 01-09 R[facility] kes - disease disease 00:00: Medical 00 Center 25 to 26 25 to 26 Problem Active Unive rs weeks weeks ity of gestation [place] of of Physici ans History of History of Problem Resolve Univers STD STD d ity of (sexually (sexually [place] transmitte transmitte Ph ysici d disease) d disease) an s Nausea and Nausea and Problem Active U nivers vomiting vomiting ity of [place] Physici ans High-risk High-risk Problem Active Uni vers ity of [place] Physici ans Urinary Urinary Problem Active Univers tract tract it[place] of infection infection [place] Palpitatio Palpitatio Problem Active U nivers ns ns ity of [place] Physici ans Chlamydial Chlamydial Problem Active U nivers infection infection ity of [place] Physici ans Encounter Encounter Problem Active Uni vers for for it[place] of supervisio supervisio [place] of n of Physici normal normal ans Von Von Problem Active Univers Willebrand Willebrand it y of 's disease 's disease [place] Migraine Migraine Problem Active Unive rs ity of [place] Physici ans Trichomona Trichomona Problem Active U nivers s s ity of vaginitis vaginitis [place] Phys[place] Panic Panic Problem Active Univers attacks attacks ity of [place] Physici ans Depression Depression Problem Active U nivers ity of [place] Physici ans Tachycardi Tachycardi Problem Active U nivers a a ity of [place] Physici ans Rh Rh Problem Active Univers negative, negative, ity of antepartum antepartum [place] , third , third Physici trimester trimester ans Lab test Lab test Problem Active Unive rs positive positive ity of for for [place] detection detection Phys ici of of ans COVID-19 COVID-19 virus virus Pruritus Pruritus Problem Active Unive rs of of [place] Phys[place] Encounter Encounter Problem Active Uni vers for for ity of routine routine [place] gynecologi gynecologi Ph ysici daren daren ans examinatio examinatio n n History of History of Problem Resolve Univers von von d ity of Wille[place]brand [place] 's disease 's disease Ph ysici ans Bacterial Bacterial Problem Active Uni vers vaginosis vaginosis ity of [place] Physici ans Postoperat Postoperat Problem Active U nivers j carlos j carlos ity of examinatio examinatio [place] n Physici ans Constipati Constipati Problem Active U nivers on, acute on, acute ity of [place] Physici ans Obese Obese Problem Active Univers ity of [place] Physici ans Allergies, Adverse Reactions, Alerts This patient has no known allergies or adverse reactions. Family History Family Member Diagnosis Comments Start Date Stop Date Source Mother Family history of Univers ity of [place] Bipolar 2 disorder Physic ians Natural mother Diabetes [facility] Natural mother [facility] Social History Social Habit Start Date Stop Date Quantity Comments Source History of Snuff User [facility] tobacco use [facility] Sex Assigned At [facility] Tobacco use and 2017-01-11 2017-01-11 Current user [facility] - exposure 00:00:00 00:00:00 [facility] Alcohol intake 2017-01-11 2017-01-11 Current [facility] - 00:00:00 00:00:00 non-drinker of Medical Ce nter alcohol (finding) Smoking Status Start Date Stop Date Source Ex-smoker (finding) [facility] Never smoked tobacco [facility] (finding) Physicians Current some day smoker 2017-01-11 00:00:00 [facility] Medications Ordered Filled Start Stop Current Ordering Indication Dosage Frequency Signature Comments Components Source Medication Medication Date Date Medication? Clinician (SIG) Name Name metroNIDAZO metroNIDAZO 2019-1 Yes MATTHEW Q12H TAKE 2 Univers LE 500 MG LE 500 MG 1-13 NGUY M.D. TABLETS ity of Oral Tablet Oral Tablet 00:00: EVERY 12 [place] 00 HOURS. Physici ans Ursodiol Ursodiol 2020-0 Yes Wakie Q0.3333D TAKE 1 Univers 250 MG Oral 250 MG Oral 8-04 M.D. TABLET 3 ity of Tablet Tablet 00:00: TIMES [place] 00 DAILY. Physici ans hydrOXYzine hydrOXYzine 2020-0 Yes Wakie Q0.3333D TAKE 1 Univers HCl - 25 MG HCl - 25 MG 7-30 M.D. TABLET 3 ity of Oral Tablet Oral Tablet 00:00: TIMES [place] 00 DAILY Physici NEEDED. ans Esgic Esgic 2020-0 Yes YASHIRA TAKE 1 TO Unive rs 50-325-40 50-325-40 5-21 HURT 2 CAPSULES ity of MG Oral MG Oral 00:00: M.D. EVERY 4 [place] Capsule Capsule 00 6 HOURS Phy sici NEEDED FOR ans PAIN. Prochlorper Prochlorper 2019-0 Yes YASHIRA Q8H TAKE 1 Univers azine azine 5-21 HURT TABLET ity of Maleate 10 Maleate 10 00:00: M.D. EVERY 8 [place] MG Oral MG Oral 00 HOURS Physi ci Tablet Tablet NEEDED. ans traZODone traZODone 2019-0 Yes KAVIN 1.5 TAKE 1.5 Univers HCl - 50 MG HCl - 50 MG 4-15 [facility] TABLET ity of Oral Tablet Oral Tablet 00:00: M.D. BEDTIME [place] 00 Physici ans Escitalopra Escitalopra 2019-0 Yes KAVIN 1 QD TAKE 1 Univers m Oxalate m Oxalate 4-15 [facility] TABLET ity of 20 MG Oral 20 MG Oral 00:00: M.D. DAILY. [place] Tablet Tablet 00 Physici ans metroNIDAZO metroNIDAZO Yes CHASE TAKE 4 Univers LE 500 MG LE 500 MG 4-09 STEVENSON TABLETS ity of Oral Tablet Oral Tablet 00:00: M.D. ONCE. [place] 00 Physici ans riboflavin, Yes 400mg QD Take [address] vitamin B2, 5-19 mg by [facility] - 400 mg Tab 00:00: mouth Medica l 00 daily. Center SUMAtriptan Yes 50mg Take [address] (IMITREX) 5-19 tablet (50 Luke s - 50 MG 00:00: mg total) Medical tablet 00 by mouth Center every 2 (two) hours as needed (migraine) Do not exceed 200mg in 24 hours.. Cephalexin Cephalexin Yes HIND Q12H TAKE 1 [...] 00 HOURS Physici Capsule Capsule DAILY. ans Zofran 4 MG Zofran 4 MG 2014- Yes Univers Oral Tablet Oral Tablet 1-12 i ty of 00:00: [place] 00 Physici ans Immunizations Ordered Filled Immunization Date Status Comments Sourc e Immunization Name Name Rho(D) Immune 2020-02-18 Completed [facility] - IM 16:03:00 [place] Physi cians Tdap 2020-02-18 Completed [facility] 00:00:00 [place] Physicia ns Tdap (Adacel) 2015-09-22 Completed [facility] 00:00:00 [place] Physicia ns Vital Signs Vital Name Observation Time Observation Value Comments Source Systolic blood 2020-07-27 123 mm[Hg] Location: [facility]; [facility] 13:24:00 Position: [place] Physician s Sitting Diastolic blood 2020-07-27 86 mm[Hg] Location: [facility]; [facility] 13:24:00 Position: [place] Physician s Sitting Body height 2020-07-27 61 [in_us] University of 13:24:00 [place] Physician s Weight 2020-07-27 217.25 [lb_av] University of 13:24:00 [place] Physician s Body mass index 2020-07-27 41.05 kg/m2 University o f (BMI) [Ratio] 13:24:00 [place] Physicia ns Body temperature 2020-07-27 97.3 [degF] Method: [facility] 13:24:00 Temporal [place] Physician s Heart Rate 2020-07-27 82 /min University of 13:24:00 [place] Physician s Systolic blood 2020-06-29 117 mm[Hg] Location: [facility]; [facility] 14:22:00 Position: [place] Physician s Sitting Diastolic blood 2020-06-29 75 mm[Hg] Location: [facility] 14:22:00 Position: [place] Physician s Sitting Body height 2020-06-29 61 [in_us] University of 14:22:00 [place] Physician s Weight 2020-06-29 212 [lb_av] University of 14:22:00 [place] Physician s Body mass index 2020-06-29 40.06 kg/m2 University o f (BMI) [Ratio] 14:22:00 [place] Physicia ns Heart Rate 2020-06-29 80 /min University of 14:22:00 [place] Physician s Body temperature 2020-06-29 97.5 [degF] Method: [place] of 14:22:00 Temporal [place] Physician s Systolic blood 2020-03-31 108 mm[Hg] Location: [facility]; [facility] 13:58:00 Position: [place] Physician s Sitting Diastolic blood 2020-03-31 72 mm[Hg] Location: [place]; [facility] 13:58:00 Position: [place] Physician s Sitting Body height 2020-03-31 61 [in_us] University of 13:58:00 [place] Physician s Weight 2020-03-31 218 [lb_av] University of 13:58:00 [place] Physician s Body mass index 2020-03-31 41.19 kg/m2 University o f (BMI) [Ratio] 13:58:00 [place] Physicia ns Body temperature 2020-03-31 97.5 [degF] Method: University of 13:58:00 Temporal [place] Physician s Heart Rate 2020-03-31 98 /min University of 13:58:00 [place] Physician s Systolic blood 2020-03-24 128 mm[Hg] Location: [place]; [facility] 13:45:00 Position: [place] Physician s Sitting Diastolic blood 2020-03-24 74 mm[Hg] Location: [place]; [facility] 13:45:00 Position: [place] Physician s Sitting Body height 2020-03-24 61 [in_us] University of 13:45:00 [place] Physician s Weight 2020-03-24 214 [lb_av] University of 13:45:00 [place] Physician s Body mass index 2020-03-24 40.44 kg/m2 University o f (BMI) [Ratio] 13:45:00 [place] Physicia ns Heart Rate 2020-03-24 85 /min University of 13:45:00 [place] Physician s Systolic blood 2020-02-18 111 mm[Hg] Location: [place]; [facility] 14:24:00 Position: [place] Physician s Sitting Diastolic blood 2020-02-18 75 mm[Hg] Location: [place]; [facility] 14:24:00 Position: [place] Physician s Sitting Body height 2020-02-18 61 [in_us] University of 14:24:00 [place] Physician s Weight 2020-02-18 209 [lb_av] University of 14:24:00 [place] Physician s Body mass index 2020-02-18 39.49 kg/m2 University o f (BMI) [Ratio] 14:24:00 [place] Physicia ns Body temperature 2020-02-18 97.1 [degF] Method: Oral University of 14:24:00 [place] Physician s Heart Rate 2020-02-18 81 /min University of 14:24:00 [place] Physician s Heart Rate 2020-01-21 76 /min University of 16:04:00 [place] Physician s O2 SAT 2020-01-21 97 % University of 16:04:00 [place] Physician s Systolic blood 2020-01-21 110 mm[Hg] Location: [facility]; [facility] 15:44:00 Position: [place] Physician s Sitting Diastolic blood 2020-01-21 70 mm[Hg] Location: [facility]; [facility] 15:44:00 Position: [place] Physician s Sitting Heart Rate 2020-01-21 84 /min University of 15:44:00 [place] Physician s Body height 2020-01-21 61 [in_us] University of 15:44:00 [place] Physician s Weight 2020-01-21 202.25 [lb_av] University of 15:44:00 [place] Physician s Body mass index 2020-01-21 38.22 kg/m2 University o f (BMI) [Ratio] 15:44:00 [place] Physicia ns Body temperature 2020-01-21 97.1 [degF] Method: Oral University of 15:44:00 [place] Physician s Systolic blood 2020-01-14 113 mm[Hg] Location: [place]; [facility] 13:13:00 Position: [place] Physician s Sitting Diastolic blood 2020-01-14 75 mm[Hg] Location: [facility]; [facility] 13:13:00 Position: [place] Physician s Sitting Body height 2020-01-14 61 [in_us] University of 13:13:00 [place] Physician s Weight 2020-01-14 199.375 [lb_av] University o f 13:13:00 [place] Physician s Body mass index 2020-01-14 37.67 kg/m2 University o f (BMI) [Ratio] 13:13:00 [place] Physicia ns Body temperature 2020-01-14 98.3 [degF] Method: University of 13:13:00 Tympanic [place] Physician s Heart Rate 2020-01-14 88 /min University of 13:13:00 [place] Physician s Systolic blood 2019-11-30 106 mm[Hg] Location: [facility]; [place] of pressure 14:06:00 Position: [place] Physician s Sitting Diastolic blood 2019-11-30 73 mm[Hg] Location: [facility]; [facility] pressure 14:06:00 Position: [place] Physician s Sitting Body height 2019-11-30 61 [in_us] University of 14:06:00 [place] Physician s Weight 2019-11-30 191 [lb_av] [facility] 14:06:00 [place] Physician s Body mass index 2019-11-30 36.09 kg/m2 [facility] (BMI) [Ratio] 14:06:00 [place] Physicia ns Heart Rate 2019-11-30 83 /min [facility] 14:06:00 [place] Physician s Procedures Procedure Date / Time Performing Clinician Source Performed [QL] CBC (INCLUDES 2020-07-04 00:00:00 [facility] DIFF/PLT) Physicians [Q] VON WILLEBRAND 2020-07-04 00:00:00 [facility] COMPREHENSIVE PANEL Physicians [QL] PROTHROMBIN W/INR + 2020-07-04 00:00:00 [facility] PARTIAL THROMBOPLASTIN Physician s TIMES . [facility] - PAP w/reflex 2020-06-29 00:00:00 [facility] HPV if ASC-US or above Physician s [QL] CMP W/EGFR 2020-03-24 00:00:00 [facility] [Q] BILE ACIDS, 2020-03-24 00:00:00 [facility] FRACTIONATED AND TOTAL, Physicia ns [QL] CULTURE, URINE, 2020-03-24 00:00:00 [facility] ROUTINE Physicians . [facility] - 2020-03-09 00:00:00 [facility] COVID-19/SARS-Cov-2 Physicians [Q] GLUCOSE, GESTATIONAL 2020-02-18 00:00:00 Uni [facility] SCREEN (50G)-130 CUTOFF Physicia ns [QL] CBC (INCLUDES 2020-02-18 00:00:00 [facility] DIFF/PLT) Physicians EKG w/Rhythm Strip 2020-01-21 00:00:00 [facility] Physicians [QL] URINALYSIS, COMPLETE 2020-01-21 [facility] [Q] GLUCOSE, GESTATIONAL 2020-01-21 00:00:00 Uni [facility] SCREEN (50G)-130 CUTOFF Physicia ns [QL] CBC (INCLUDES 2020-01-21 00:00:00 [facility] DIFF/PLT) Physicians [QL] CULTURE, URINE, 2020-01-21 00:00:00 [facility] ROUTINE Physicians . [facility] - Affirm VPIII 2020-01-15 00:00:00 [facility] (BV Panel) Physicians [Q] [id number] 2019-11-30 00:00:00 [facility] DEHYDROGENASE, QUANT. Physicians [Q] HEMOGLOBINOPATHY 2019-11-30 00:00:00 [facility] EVALUATION Physicians [Q] HIV AB, HIV 1/2, EIA, 2019-11-30 00:00:00 Un [facility] WITH REFLEXES Physicians [Q] OBSTETRIC PANEL 2019-11-30 00:00:00 [facility] Physicians [Q] TREPONEMA PALLIDUM AB, 2019-11-30 00:00[facility] PARTICLE AGGLUTINATION Physician s [QL] CULTURE, URINE, 2019-11-30 00:00:00 [facility] ROUTINE Physicians [QL] URINALYSIS, COMPLETE 2019-11-30 00:00:00 Un [facility] Physicians [Q] IRON, TIBC AND 2019-11-30 00:00:00 [facility] FERRITIN PANEL Physicians [QL] FOLATE, SERUM 2019-11-30 00:00:00 [facility] Physicians . [facility] - GC/Chlamydia 2019-11-30 00:00:00 [facility] Physicians . [facility] - Affirm VPIII 2019-11-30 00:00:00 [facility] (BV Panel) Physicians History of Tonsillectomy [facility] Physicians History of Dilation And [facility] Curettage Physicians History of Appendectomy [facility] Physicians Plan of Care Planned Activity Planned Date Details Comments Source Future Scheduled Test 2020-03-21 . [facility] - [facility] 00:00:00 COVID-19/SARS-Cov Physicians -2 [code = . [facility] - COVID-19/SARS-Cov -2] Diagnostic Test 2020-01-15 . [facility] - Affirm [facility] Pending 00:00:00 VPIII (BV Panel) Physicians [code = . [facility] - Affirm VPIII (BV Panel)] Encounters Start End Encounter Admission Attending Care Care Encounter Source Date/Time Date/Time Type Type Clinicians Facility Department ID 2020-10-24 2020-10-24 Office Carolin Bailon [facility] [id number] 08:55:05 10:04:55 Visit Leo Pinola [id number] Murali [id number] [facility] [id number] [address] 2020-07-27 2020-07-27 Appointmen SONIDO, [facility] Obstetrics [id number] Univers 13:30:00 13:30:00 t; Mesfin TAVERAS and it y of SONIDO Gynecology Wilberta s NITIN, Contin[facility] Physi ci M.D. Clinic ans 2020-07-11 2020-07-11 [facility] [id number] Univers 15:00:00 15:00:00 t; Mesfin VELASCO Carrie, [place] Mesfin VELASCO Physi ci ans 2020-07-06 2020-07-06 [facility] [id number] Univers 13:00:00 13:00:00 t; renata FLORES M.D. Gynecology Wilbert as MARK, Continuity Phys ici M.D. Clinic [facility] 2020-07-05 2020-07-05 [facility] [id number] Univers 09:00:00 09:00:00 t; Mesfin VELASCO [place], [place] Mesfin VELASCO Physi ci [facility] 2020-07-04 2020-07-04 Appointsumaya ADULT, [facility] [id number] Univers 15:30:00 15:30:00 t; ADULT, HEMOPHILIA Hemophilia ity HEMOPHILIA and [place] Thrombophil Phys ici [facility] 2020-06-29 2020-06-29 [facility] Women's [id number] Univers 14:30:00 14:30:00 t; MATTHEW BERNAL Center - ity summer CASTRO M.D. [facility] 2020-06-01 2020-06-01 Appointmen [facility] [id number] Univers 10:45:00 10:45:00 t; JJ SILVERIO, Bennie M.D. [place] [facility] Physici ans 2020-04-29 2020-04-29 Appointmen OBGYN, C/S [facility] [id number] Univers 10:00:00 10:00:00 t; OBGYN, ity of C/S [place] Physic ans 2020-04-27 2020-04-27 Appointmen JOHANNY, [facility] [id number] Univers 13:30:00 13:30:00 t; Felipe HERNANDEZ M.D. [place] Rosmery HERNANDEZ M.D. ans 2020-04-14 2020-04-14 Emergency E [facility] [id number] [facility] 22:58:00 22:58:00 2020-03-31 2020-03-31 Appointmen WILL, [facility] Obstetrics [id number] Univers 14:30:00 14:30:00 t; renata STEWART of Leah SOLIS Gynecology Mick STEWART, Continuity Physi ci D.O. Clinic ans 2020-03-31 2020-03-31 Appointmen EXECUTIVE ASSISTANT TO PRESIDENT, [facility] [id number] Univers 13:00:00 13:00:00 t; EXECUTIVE ASSISTANT TO PRESIDENT, ROOM3 ity of ROOM3 [facility] ans 2020-03-27 2020-03-27 Emergency E [id number] 21:39:00 21:39:00 2020-03-24 2020-03-24 Appointmen EXECUTIVE ASSISTANT TO PRESIDENT, [facility] [id number] Univers 15:15:00 15:15:00 t; EXECUTIVE ASSISTANT TO PRESIDENT, ROOM2 ity of ROOM2 [facility] ans 2020-03-24 2020-03-24 Appointmen Reji COPELAND, [facility] Obstetrics [id number] Univers 13:30:00 13:30:00 t; Mesfin COPELAND and Zhou M.D. Gynecology [facility] Physi ci Clinic ans 2020-03-09 2020-03-09 Appointmen [place], [facility] [id number] Univers 11:30:00 11:30:00 t; Raman VALE M.D. [place] Mando VALE i, M.D. ans 2020-02-18 2020-02-18 Appointmen STEVENSON [facility] Obstetrics [id number] Univers 15:00:00 15:00:00 t; Mesfin STONE and it y of [place], Gy[place] CHASE, Continuity Physi ci M.D. Clinic ans 2020-02-12 2020-02-12 Appointmen EXECUTIVE ASSISTANT TO PRESIDENT, [facility] Obstetrics [id number] Univers 13:00:00 13:00:00 t; EXECUTIVE ASSISTANT TO PRESIDENT, ROOM3 and ity of ROOM3 Gynecology [place] Contin[facility] Physi ci Clinic ans 2020-02-04 2020-02-04 Appointmen TOMEKA, [facility] [id number] Univers 13:30:00 13:30:00 t; ELIF ECKERT, Frandy M.D. [place] [facility] Physici ans 2020-01-21 2020-01-21 Appointmen MALLY, [facility] [id number] Univers 16:00:00 16:00:00 t; WALK-INS soniay o f MALLY, [place] [facility] Physici ans 2020-01-21 2020-01-21 Appointmen KATIE, [facility] Obstetrics [id number] Univers 15:30:00 15:30:00 t; FITZ, and ity of Leah [facility]Z, [facility] Physi ci D.O. Clinic ans 2020-01-15 2020-01-15 Appointmen EXECUTIVE ASSISTANT TO PRESIDENT, [facility] [id number] Univers 13:00:00 13:00:00 t; EXECUTIVE ASSISTANT TO PRESIDENT, ROOM4 ity of ROOM4 [place] Physici ans 2020-01-14 2020-01-14 Appointmen CATE, [facility] Obstetrics [id number] Univers 13:45:00 13:45:00 t; Mesfin LIN and it y summer ESPOSITO, [facility] RILEY, Continuity Physi ci M.D. Clinic ans 2020-01-13 2020-01-13 Appointmen TERRELL, [facility] Psychiatry [id number] Univers 08:45:00 08:45:00 t; Aditi TURK i ty summer TEJADA M.D. [facility] [place] CHINA TURK Physic i MAshley ans 2019-12-28 2019-12-28 Appointmen ANGELO, [facility] [id number] Univers 13:30:00 13:30:00 t; Tiffany GREENBERG M.D. [place] Mando GREENBERG i MAshley ans 2019-12-28 2019-12-28 Appointmen EXECUTIVE ASSISTANT TO PRESIDENT, [facility] [id number] Univers 10:45:00 10:45:00 t; EXECUTIVE ASSISTANT TO PRESIDENT, ROOM3 ity of ROOM3 [place] Physic ans 2019-12-28 2019-12-28 Appointmen OB/MD, [facility] [id number] Univers 10:00:00 10:00:00 t; OB/, ity of [facility] Physic ans 2019-12-09 2019-12-09 Appointmen TERRELL [facility] Psychiatry [id number] Univers 10:30:00 10:30:00 t; BURKE, Outpatient i ty of Mesfin TEJADA [facility] [place] BURKE, [facility] Physic i M.D. ans 2019-11-30 2019-11-30 Appointmen BLU [facility] Obstetrics [id number] Univers 14:00:00 14:00:00 t; Mesfin AC and it y of BLU, Gynecology Mick AC, Continuity Physi ci M.Nick Clinic ans 2015-11-03 2015-11-03 Appointmen NOLVIA [facility] Obstetrics [id number] Univers 09:00:00 09:00:00 t; NOLVIA, FELLOW2 and heladio of FELLOW2 Gynecology [place] Continuity Physi ci Clinic ans Results Test Description Test Time Test Comments Results Result Comments Source . [facility] - PAP w/reflex HPV if ASC-US or above 2020-06-29 00 :00:00 Test Item Value Reference Range Interpretation Comme nts Case (test code = Case) Click ImageLink button for report. A [facility] Physicians[QL] CMP [id number] 00:00:00 Test Item Value Reference Range Interpretation Comments GLUCOSE; Normal 68 mg/dl 65-99 N Fasting refe rence (test code = 1547-9) interva l UREA NITROGEN (BUN) 10 mg/dl 7-25 N (test code = UREA NITROGEN (BUN)) CREATININE (test 0.46 mg/dl 0.50-1.10 code = CREATININE) eGFR NON-AFR. 134 > OR = 60 N NAMIBIAN (test code {ML/MIN/1.7} = eGFR NON-AFR. NAMIBIAN) eGFR 156 > OR = 60 N NAMIBIAN (test code {ML/MIN/1.7} = eGFR ) BUN/CREATININE RATIO 22 {CALC} 6-22 N (test code = BUN/CREATININE RATIO) SODIUM (test code = 137 mmol/L 135-146 N SODIUM) POTASSIUM (test code 4.2 mmol/L 3.5-5.3 N = POTASSIUM) CHLORIDE (test code 103 mmol/L 98-110 N = CHLORIDE) CARBON DIOXIDE (test 22 mmol/L 20-32 N code = CARBON DIOXIDE) CALCIUM (test code = 9.2 mg/dl 8.6-10.2 N CALCIUM) PROTEIN, TOTAL (test 6.7 g/dl 6.1-8.1 N code = PROTEIN, TOTAL) ALBUMIN (test code = 3.6 g/dl 3.6-5.1 N ALBUMIN) GLOBULIN (test code 3.1 {G/DL 1.9-3.7 N = GLOBULIN) CALC} ALBUMIN/GLOBULIN 1.2 {CALC} 1.0-2.5 N RATIO (test code = ALBUMIN/GLOBULIN RATIO) BILIRUBIN, TOTAL; 0.3 mg/dl 0.2-1.2 N Normal (test code = 51998-4) ALKALINE PHOSPHATASE 120 u/l 31-125 N (test code = ALKALINE PHOSPHATASE) AST; Normal (test 14 u/l 10-30 N code = 1916-6) ALT; Normal (test 16 u/l 6-29 N SPECIMEN R ECEIVED code = 1742-6) DATE AND TIME : [id number] [facility][Q] BILE ACIDS, FRACTIONATED AND TOTAL, 2020-03-24 00:00:00 Test Item Value Reference Interpretation Comments Range CHOLIC ACID (test 0.6 < OR = 2.8 code = CHOLIC ACID) umol/L DEOXYCHOLIC ACID 1.6 < OR = 2.3 (test code = umol/L DEOXYCHOLIC ACID) CHENODEOXYCHOLIC 0.8 < OR = 3.9 ACID (test code = umol/L CHENODEOXYCHOLIC ACID) TOTAL BILE ACIDS 3.0 < OR = 8.3 This test w as developed and (test code = TOTAL umol/L its ismael tical BILE ACIDS) performancechar acteristics have been deter [facility]ined by [facility]. It has not beencleared or approved by FDA. This as say has been validatedpursua nt to the CLIA regulations and is used for clinicalpurpose s.SPECIMEN RECEIVED DATE A ND TIME: [id number] [facility][QL] CULTURE, URINE, [id number] 00:00:00 Test Item Value Reference Range Interpretation Comments SOURCE: (test URINE, CLEAN CATCH code = SOURCE:) STATUS: (test FINAL code = STATUS:) Result (test Multiple organisms CFU/mL. T hese code = Result) present, each less organis ms, commonly than 10,000 found onexterna l and internal genita romana, are consideredt o be colonizers. No further testing performed.SPECI MEN RECEIVED DATE A ND TIME: [facility][Q] GLUCOSE, GESTATIONAL SCREEN (50G)-130 CUTOFF 2020-02-18 16:06:00 Test Item Value Reference Range Interpretation Comments GLUCOSE, GESTATIONAL 121 mg/dl <135 N SPECIME N RECEIVED DATE SCREEN (50G)-130 AND TIME: 2 [id number] CUTOFF; Normal (test code = 40886-1) [facility][QL] CBC (INCLUDES DIFF/PLT)2020-02-18 16:06:00 Test Item Value Reference Range Interpretation Comments WHITE BLOOD CELL 13.6 3.8-10.8 COUNT (test code = {Thousand/u} WHITE BLOOD CELL COUNT) RED BLOOD CELL COUNT 3.80 3.80-5.10 N (test code = RED {Million/uL} BLOOD CELL COUNT) HEMOGLOBIN; Below 10.8 g/dl 11.7-15.5 Low Threshold (test code = 98208-7) HEMATOCRIT; Below 32.5 % 35.0-45.0 Low Threshold (test code = 4544-3) MCV; Normal (test 85.5 fL 80.0-100.0 N code = 787-2) MCHC; Normal (test 33.2 g/dl 32.0-36.0 N code = 92309-1) RDW; Normal (test 13.1 % 11.0-15.0 N code = 788-0) PLATELET COUNT; 262 140-400 N Normal (test code = {Thousand/u} 777-3) MPV; Normal (test 11.8 fL 7.5-12.5 N code = 17791-7) ABSOLUTE NEUTROPHILS 10469 8963-2357 (test code = {cells/uL} ABSOLUTE NEUTROPHILS) ABSOLUTE LYMPHOCYTES 9651 173-2546 N (test code = {cells/uL} ABSOLUTE LYMPHOCYTES) ABSOLUTE MONOCYTES 843 {cells/uL} 200-950 N (test code = ABSOLUTE MONOCYTES) ABSOLUTE EOSINOPHILS 122 {cells/uL} 15-500 N (test code = ABSOLUTE EOSINOPHILS) ABSOLUTE BASOPHILS 41 {cells/uL} 0-200 N (test code = ABSOLUTE BASOPHILS) NEUTROPHILS (test 78.6 % N code = NEUTROPHILS) LYMPHOCYTES (test 14.0 % N code = LYMPHOCYTES) MONOCYTES; Normal 6.2 % N (test code = 95980-1) EOSINOPHILS; Normal 0.9 % N (test code = 82534-6) BASOPHILS; Normal 0.3 % N SPECIMEN R ECEIVED (test code = DATE AND TIME: 77269-2) [id number] [facility][] URINALYSIS, [id number] 00:00:00 Test Item Value Reference Range Interpretation Comments COLOR; Normal (test YELLOW YELLOW N code = 5778-6) APPEARANCE (test code CLOUDY CLEAR A = APPEARANCE) SPECIFIC GRAVITY; 1.024 1.001-1.035 N Normal (test code = 2965-2) PH; Normal (test code < OR = 5.0 5.0-8.0 N = 2756-5) GLUCOSE; Normal (test NEGATIVE NEGATIVE N code = 1547-9) BILIRUBIN; Normal NEGATIVE NEGATIVE N (test code = 09195-9) KETONES; Normal (test NEGATIVE NEGATIVE N code = 01111-1) OCCULT BLOOD; Normal NEGATIVE NEGATIVE N (test code = 58105-3) PROTEIN; Normal (test NEGATIVE NEGATIVE N code = 98407-1) NITRITE; Normal (test NEGATIVE NEGATIVE N code = 21232-6) LEUKOCYTE ESTERASE 1+ NEGATIVE A (test code = LEUKOCYTE ESTERASE) WBC; Abnormal (test 10-20 < OR = 5 A code = 6690-2) RBC; Normal (test 0-2 < OR = 2 N code = 789-8) SQUAMOUS EPITHELIAL > OR = 60 < OR = 5 A CELLS; Abnormal (test code = 29913-3) BACTERIA; Abnormal FEW NONE SEEN A (test code = 630-4) CALCIUM OXALATE FEW NONE OR FEW N CRYSTALS; Normal (test code = 73237-1) HYALINE CAST; Normal NONE SEEN NONE SEEN N SPECIME N RECEIVED DATE (test code = 59656-3) AND TI ME: [id number] [facility][QL] CULTURE, URINE, [id number] 00:00:00 Test Item Value Reference Range Interpretation Comments SOURCE: (test URINE code = SOURCE:) STATUS: (test FINAL code = STATUS:) Result (test Mixed May represent code = Result) non-uropathogeni colonizer s from c Gram positive external and internal paula. genitalia. No f urther testing (includingsusce ptibili ty) will be per formed. ISOLATE 1: (test 50,000-100,000 Yeast Iso lated.Please code = ISOLATE CFU/mL of contact the l aboratory 1:) within 3 days iffurther identification is desired.SPECIME N RECEIVED DATE A ND TIME: [id number] [facility]. [facility] - Affirm VPIII (BV Panel)2020-01-15 00:00:00 Test Item Value Reference Range Interpretation Comments Case (test code = Click ImageLink button N Case) for report. [facility][Q] IRON, TIBC AND FERRITIN [id number] 15:53:00 Test Item Value Reference Range Interpretation Comments IRON, TOTAL (test 108 {mcg/dl} 40-190 N code = IRON, TOTAL) IRON BINDING 454 {mcg/dL 250-450 CAPACITY (test code ca} = IRON BINDING CAPACITY) % SATURATION (test 24 {% CALC} 16-45 N SPECIMEN RECEIVED code = % DATE AND TIME: SATURATION) [id number] FERRITIN (test code 13 ng/ml 16-154 SPECIMEN RECEIVED = FERRITIN) DATE AND TIME: [id number] [facility][Q] OBSTETRIC [id number] 15:53:00 Test Item Value Reference Range Interpretation Comments WHITE BLOOD CELL 13.1 3.8-10.8 COUNT (test code = {Thousand/u} WHITE BLOOD CELL COUNT) RED BLOOD CELL 4.07 3.80-5.10 N COUNT (test code = {Million/uL} RED BLOOD CELL COUNT) HEMAGLOBIN; Normal 12.3 g/dl 11.7-15.5 N (test code = 62447-7) HEMATOCRIT; Normal 36.0 % 35.0-45.0 N (test code = 4544-3) MCV; Normal (test 88.5 fL 80.0-100.0 N code = 787-2) MCHC; Normal (test 34.2 g/dl 32.0-36.0 N code = 38009-6) RDW; Normal (test 13.2 % 11.0-15.0 N code = 788-0) PLATELET COUNT; 260 {Thousand/u} 140-400 N Normal (test code = 777-3) MPV; Normal (test 11.7 fL 7.5-12.5 N code = 13466-9) ABSOLUTE 9930 {cells/uL} 3339-4210 NEUTROPHILS (test code = ABSOLUTE NEUTROPHILS) ABSOLUTE [...] Normal 5.6 % N (test code = 28657-2) EOSINOPHILS; Normal 1.4 % N (test code = 86569-4) BASOPHILS; Normal 0.5 % N SPECIMEN R ECEIVED (test code = DATE AND TIME: 79002-4) ANTIBODY SCREEN, NO ANTIBODIES N Reference range [...] . SPECIMEN RECEIV ED DATE AND TIME: ABO GROUP (test A code = 883-9) RH TYPE (test code RH(D) NEGATIVE For add itional = 02929-1) information, pl ease refer to http://educatio n.Que stDiagnostics.c om/fa q/KLZ820 (This link is being provid ed for informational/e ducat ional purposes only.)SPECIMEN RECEIVED DATE A ND TIME: 55 RPR (DX) W/REFL NON-REACTIVE NON-REACTIVE N SPECIMEN REC EIVED TITER AND DATE AND TIME: CONFIRMATORY TESTING (test code = RPR (DX) W/REFL TITER AND CONFIRMATORY TESTING) HEPATITIS B SURFACE NON-REACTIVE NON-REACTIVE N SPECIMEN RECEIVED ANTIGEN; Normal DATE AND BENJAMIN E: (test code = 878309359671 5195-3) RUBELLA ANTIBODY 3.85 {index} N Index (IGG); Normal (test Interpre tation code = 97656-2) ----- <0.90 Not consistent with Immunity 0.90-0.99 Equivocal > or = 1.00 Consi stent with Immunity The presence of rub shaheen IgG antibody suggests immunization or past or current infe ction withrubella virus.SPECIMEN RECEIVED DATE A ND TIME: [facility][Q] [id number] DEHYDROGENASE, QUANT. 2019-11-30 15:53:00 Test Item Value Reference Range Interpretation Comments [id number] 18.1 {U/g 7.0-20.5 SPECIMEN RECEIVED DEHYDROGENASE (test Hgb} DATE AND TIME: code = 376321518952 [id number] DEHYDROGENASE) [facility][QL] FOLATE, [id number] 15:53:00 Test Item Value Reference Range Interpretation Comments FOLATE, SERUM 13.5 ng/ml N Reference Rang e (test code = Low: FOLATE, SERUM) <3.4 Borde rline: 3.4-5.4 Normal: >5.4 SPECIMEN R ECEIVED DATE AND TIME: [facility][Q] TREPONEMA PALLIDUM AB, PARTICLE AGGLUTINATION 2019-11-30 15:53:00 Test Item Value Reference Range Interpretation Comments TREPONEMA PALLIDUM NONREACTIVE Reference Range: AB, PARTICLE NonreactiveSPEC IMEN AGGLUTINATION (test RECEIVED DATE AND TIME: code = TREPONEMA 65341829336 6 PALLIDUM AB, PARTICLE AGGLUTINATION) [facility][QL] CULTURE, URINE, [id number] 15:53:00 Test Item Value Reference Range Interpretation Comments SOURCE: (test URINE, CLEAN code = SOURCE:) CATCH STATUS: (test FINAL code = STATUS:) ISOLATE 1: (test 50,000-100,000 A Lactobaci llus code = ISOLATE CFU/mL of speciesMay re present 1:) colonizers from external andint ernal genitalia. No f urther testing (includingsusce ptibili ty) will be performed.SPECI MEN RECEIVED DATE A ND TIME: [facility][Q] HEMOGLOBINOPATHY [id number] 15:53:00 Test Item Value Reference Range Interpretation Comments RED BLOOD CELL COUNT 3.96 3.80-5.10 N (test code = RED {Million/uL} BLOOD CELL COUNT) HEMAGLOBIN; Normal 12.4 g/dl 11.7-15.5 N (test code = 84218-0) HEMATOCRIT; Normal 35.4 % 35.0-45.0 N (test code = 4544-3) MCV; Normal (test 89.4 fL 80.0-100.0 N code = 787-2) MCH; Normal (test 31.3 pg 27.0-33.0 N code = 88871-8) RDW; Normal (test 13.4 % 11.0-15.0 N SPECIMEN R ECEIVED code = 788-0) DATE AND TIME: HEMOGLOBIN A (test 97.6 % >96.0 N code = HEMOGLOBIN A) HEMOGLOBIN F (test <1.0 <2.0 N code = HEMOGLOBIN F) HEMOGLOBIN A2 2.4 % 1.8-3.5 N (QUANT); Normal (test code = 40449-3) INTERPRETATION (test See Comment Normal code = phenotype.SPECI MEN INTERPRETATION) RECEIVED MIGUEL E AND TIME: [facility][Q] HIV-1/2 Antigen and Antibodies, Fourth Generation, with [id number] 15:53:00 Test Item Value Reference Range Interpretation Comments HIV AG/AB, 4TH NON-REACTIVE NON-REACTIVE N HIV-1 antigen and GEN; Normal HIV-1/HIV-2 ant ibodies were (test code = [place] [address]-0) laboratory evid ence of HIVinfection. Clemencia SUNSHINE NOTE: This informatio n has been disclosed toyou from records whose confidentiality may beprotected by state law. If your state r equires suchprotection, then the state law prohi bits you frommaking any further disclosure of t he informationwith out the specific writte n consent of the personto wh om it pertains, or as otherwise permitted by odalys corderoA general authorization f or the release of medi daren orother information is NOT sufficient for this purpose. For a dditional information ple ase refer tohttp://educat ion.Marro.ws/fa q/NCH090(Thi s link is being provided for informational/e ducational purposes only.) The performance of this assay has not been clinicallyvalid ated in patients less t prince 2 years old. SPECIMEN R ECEIVED DATE AND TIME: [id number] [facility]. [facility] - [id number] 00:00:00 Test Item Value Reference Range Interpretation Comments Case (test code = Click ImageLink button N Case) for report. [facility]iciansPREGNANCY SCREEN, [id number] 20:01:00 Test Item Value Reference Range Interpretation Comments TEST URINE (BEAKER) (test Negative code = 583) [id number] 11:54:00 Test Item Value Reference Range Interpretation Comments RPR SCREEN (BEAKER) (test code = Nonreactive Nonreactive 420) HEMOGLOBIN [id number] 10:47:00 Test Item Value Reference Range Interpretation Comments HEMOGLOBIN A1C (BEAKER) (test code = 5.2 % 4.3-6.1 368) TSH/FREE T4 IF [id number] 06:03:00 Test Item Value Reference Range Interpretation Comments THYROID STIMULATING HORMONE 0.97 uIU/mL 0.35-4.94 (BEAKER) (test code = 772) VITAMIN B12 AND [id number] 06:03:00 Test Item Value Reference Range Interpretation Comments VITAMIN B12 (BEAKER) (test code = 384 pg/mL 213816 774) FOLATE (BEAKER) (test code = 362) 11.5 ng/mL >=7.0 Effective 07/13/2014: Folate Reference Range ChangeNew: >=7.0 Previous: >=5.4HIV-1 ANTIGEN WITH HIV-1/2 [id number] 05:29:00 Test Item Value Reference Range Interpretation Comments HIV-1 ANTIGEN WITH HIV 1\T\2 Nonreactive Nonreactive ANTIBODY (2) (BEAKER) (test code = 2586) [id number] 05:18:00 Test Item Value Reference Range Interpretation [...] exclusion of thrombosis is within 95-100% range. [id number] 05:18:00 Test Item Value Reference Range Interpretation Comments MAGNESIUM (BEAKER) (test code = 2.1 mg/dL 1.6-2.6 627) LIPID [id number] 05:18:00 Test Item Value Reference Range Interpretation [...] 130-159 High 160-189 Very High >=190BASIC METABOLIC [id number] 05:18:00 Test Item Value Reference Range Interpretation [...] PATIEN TS. CBC W/PLT COUNT & AUTO [id number] 05:09:00 Test Item Value Reference Range Interpretation [...] K/ L 0.00-0.20 (test code = 417) 0.00
--- NOTE | 2020-11-09 01:28 | ER ---
Nurse's Notes [facility] Name: Lauren Polanco Age: 30 yrs Sex: Female : 1990 Arrival Date: 11/09/2020 Time: 00:13 Bed External Waiting Private MD: Diagnosis: Presentation: 11/09 00:23 Acuity: YANICK 3 ea ED Course: 00:13 Patient arrived in ED. am4 00:23 Triage completed. ea Administered Medications: No medications were administered Outcome: 01:27 Patient left the ED. sg Signatures: Caesar Armijo RN RN Ching Soto RN RN Chloe Vogt am4
== END 2020-11-09 01:27 | disposition left against medical advice (07) ==
LOC: ER 00:12
DX: R69 Illness, unspecified (principal); Z53.21 Procedure and treatment not carried out due to patient leaving prior to being seen by health care provider
CPT/HCPCS: 99281

== ENCOUNTER 2021-03-05 12:21 | Emergency (ER) | payer OTHER ==
--- OUTSIDE RECORDS SUMMARY | 2021-03-05 12:25 | XMS REPORT | Continuity of Care Document ---
:1990 Author Organization [facility] t Address [address] [place] [address] [address]. [address] [place] [address] Care Team Providers Name Role Phone Provider, Urgent Care Attending Clinician Unavailable Lab, Fam Pob I Attending Clinician Unavailable Blayne Benton MD Attending Clinician SONIDO Attending Clinician Unavailable BHALKRISTINA Attending Clinician Unavailable IKWUAGWU Attending Clinician Unavailable ADULT Attending Clinician Unavailable NGUY Attending Clinician Unavailable JEAN CLAUDE Attending Clinician Unavailable OBGYN Attending Clinician Unavailable JOHANNY Attending Clinician Unavailable LAMPING Attending Clinician Unavailable SALES TRAINEE Attending Clinician Unavailable SALES TRAINEE Attending Clinician Unavailable MIN Attending Clinician Unavailable VA Attending Clinician Unavailable STEVENSON Attending Clinician Unavailable TOMEKA Attending Clinician Unavailable FANYURIDIA Attending Clinician Unavailable KATIE Attending Clinician Unavailable SALES TRAINEE Attending Clinician Unavailable CATE Attending Clinician Unavailable TERRELL Attending Clinician Unavailable ANGELO Attending Clinician Unavailable OB/ Attending Clinician Unavailable BLU Attending Clinician Unavailable Alycia PENA Attending Clinician Unavailable MFPauly Attending Clinician Unavailable BECKY PClair Admitting Clinician Unavailable Problems Condition Condition Condition Status Onset Resolution Last Treating Co mments Source Name Details Category Date Date Treatment Clinician Date Left sided Left sided Disease Active [facility] [place] Headache(7 Headache(7 Disease [address] [facility] 84.0) 84.0) 01-09 [facility] [place] Von Von Disease Active [facility] Willebrand 01-09 Renu kes - disease disease 00:00: Medical 00 [place] 25 to 26 25 to 26 Problem [...] Active U nivers a a [facility]y of [place] Physici ans Rh Rh Problem Active Univers [...] vers for for ity of routine routine [place] gynecologi gynecologi Ph ysici daren daren ans examinatio examinatio n n History of History of Problem Resolve Univers von von d ity of [place] disease 's disease Ph ysici ans Bacterial Bacterial Problem Active Uni vers vaginosis vaginosis ity of [place] Physici ans Postoperat Postoperat Problem Active U nivers j carlos j carlos ity of examin[place] examin[place] Physici ans Constipati Constipati Problem Active U nivers on, acute on, acute ity of [place] Physici ans Obese Obese Problem Active [facility] [place] Physici ans Allergies, Adverse Reactions, Alerts This patient has no known allergies or adverse reactions. Family History Family Member Diagnosis Comments Start Date Stop Date Source Mother Family history of [facility] [place] Bipolar 2 disorder Physic ians Natural mother Diabetes [facility] Natural mother Hypertension [facility] Social History Social Habit Start Date Stop Date Quantity Comments Source History of Snuff User [facility] tobacco use [facility] Sex Assigned At [facility] Tobacco use and 2017-01-11 2017-01-11 Current user [facility] - exposure 00:00:00 00:00:00 [facility] Alcohol intake 2017-01-11 2017-01-11 Current [facility] - 00:00:00 00:00:00 non-drinker of Medical Ce nter alcohol (finding) Smoking Status Start Date Stop Date Source Ex-smoker (finding) [facility] Physicians Never smoked tobacco [facility] (finding) Physicians Current some day smoker 2017-01-11 00:00:00 [facility] Medications Ordered Filled Start Stop Current Ordering Indication Dosage Frequency Signature Comments Components Source Medication Medication Date Date Medication? Clinician (SIG) Name Name metroNIDAZO metroNIDAZO 2020-1 Yes MATTHEW Q12H TAKE 2 Univers LE 500 MG LE 500 MG 1-13 NGUY M.D. TABLETS ity of Oral Tablet Oral Tablet 00:00: EVERY 12 [place] 00 HOURS. Physici ans Ursodiol Ursodiol 2020-0 Yes K MIN Q0.3333D TAKE 1 Univers 250 MG Oral 250 MG Oral 8-04 M.D. TABLET 3 ity of Tablet Tablet 00:00: TIMES [place] 00 DAILY. Physici ans hydrOXYzine hydrOXYzine 2020-0 Yes K MIN Q0.3333D TAKE 1 Univers HCl - 25 MG HCl - 25 MG 7-30 M.D. TABLET 3 ity of Oral Tablet Oral Tablet 00:00: TIMES [place] 00 DAILY Physici NEEDED. ans Esgic Esgic 2019-0 Yes YASHIRA TAKE 1 TO Unive rs [...] ci Tablet Tablet NEEDED. ans traZODone traZODone Yes KAVIN 1.5 TAKE 1.5 Univers HCl - 50 MG HCl - 50 MG 4-15 [facility] TABLET ity of Oral Tablet Oral Tablet 00:00: M.D. BEDTIME [place] 00 Physici ans Escitalopra Escitalopra 0 Yes KAVIN 1 QD TAKE 1 Univers [...] ans Zofran 4 MG Zofran 4 MG 2014-08 Yes Univers Oral Tablet Oral Tablet 1-12 i ty of 00:00: [place] 00 Physici ans Immunizations Ordered Filled Immunization Date Status Comments [facility] e Immunization Name Name Rho(D) Immune 2020-02-18 Completed [facility] globulin - IM 16:03:00 [place] Physi cians Tdap 2020-02-18 Completed [facility] 00:00:00 [place] Physicia ns Tdap (Adacel) 2015-09-22 Completed [facility] 00:00:00 [place] Physicia ns Vital Signs Vital Name Observation Time Observation Value Comments Source Systolic blood 2020-07-27 123 mm[Hg] Location: [facility] 13:24:00 Position: [place] Physician s Sitting Diastolic blood 2020-07-27 86 mm[Hg] Location: [facility] 13:24:00 Position: [place] Physician s Sitting Body height 2020-07-27 61 [in_us] [facility] 13:24:00 [place] Physician s Weight 2020-07-27 217.25 [lb_av] [facility] 13:24:00 [place] Physician s Body mass index 2020-07-27 41.05 kg/m2 [place] o f (BMI) [Ratio] 13:24:00 [place] Physicia ns Body temperature 2020-07-27 97.3 [degF] Method: [facility] 13:24:00 Temporal [place] Physician s Heart Rate 2020-07-27 82 /min [facility] 13:24:00 [place] Physician s Systolic blood 2020-06-29 117 mm[Hg] Location: [facility] 14:22:00 Position: [place] Physician s Sitting Diastolic blood 2020-06-29 75 mm[Hg] Location: [facility] 14:22:00 Position: [place] Physician s Sitting Body height 2020-06-29 61 [in_us] [facility] 14:22:00 [place] Physician s Weight 2020-06-29 212 [lb_av] [facility] 14:22:00 [place] Physician s Body mass index 2020-06-29 40.06 kg/m2 University o f (BMI) [Ratio] 14:22:00 [place] Physicia ns Heart Rate 2020-06-29 80 /min University of 14:22:00 [place] Physician s Body temperature 2020-06-29 97.5 [degF] Method: University 14:22:00 Temporal [place] Physician s Systolic blood 2020-03-31 108 mm[Hg] Location: [facility]; [facility] 13:58:00 Position: [place] Physician s Sitting Diastolic blood 2020-03-31 72 mm[Hg] Location: [place]; [facility] 13:58:00 Position: [place] Physician s Sitting Body height 2020-03-31 61 [in_us] University of 13:58:00 [place] Physician s Weight 2020-03-31 218 [lb_av] University of 13:58:00 [place] Physician s Body mass index 2020-03-31 41.19 kg/m2 University o f (BMI) [Ratio] 13:58:00 [place] Physicia ns Body temperature 2020-03-31 97.5 [degF] Method: [facility] 13:58:00 Temporal [place] Physician s Heart Rate 2020-03-31 98 /min University of 13:58:00 [place] Physician s Systolic blood 2020-03-24 128 mm[Hg] Location: [facility]; [facility] 13:45:00 Position: [place] Physician s Sitting Diastolic blood 2020-03-24 74 mm[Hg] Location: [facility]; [facility] 13:45:00 Position: [place] Physician s Sitting Body height 2020-03-24 61 [in_us] University of 13:45:00 [place] Physician s Weight 2020-03-24 214 [lb_av] University of 13:45:00 [place] Physician s Body mass index 2020-03-24 40.44 kg/m2 University o f (BMI) [Ratio] 13:45:00 [place] Physicia ns Heart Rate 2020-03-24 85 /min University of 13:45:00 [place] Physician s Systolic blood 2020-02-18 111 mm[Hg] Location: E; [facility] pressure 14:24:00 Position: [place] Physician s Sitting Diastolic blood 2020-02-18 75 mm[Hg] Location: [facility]; [facility] 14:24:00 Position: [place] Physician s Sitting Body [...] s Systolic blood 2020-01-21 110 mm[Hg] Location: [facility]; [facility] 15:44:00 Position: [place] Physician s Sitting Diastolic blood 2020-01-21 70 mm[Hg] Location: [facility]; [facility] 15:44:00 Position: [place] Physician s Sitting Heart Rate 2020-01-21 84 /min [facility] 15:44:00 [place] Physician s Body height 2020-01-21 61 [in_us] University of 15:44:00 [place] Physician s Weight 2020-01-21 202.25 [lb_av] University 15:44:00 [place] Physician s Body mass index 2020-01-21 38.22 kg/m2 University o f (BMI) [Ratio] 15:44:00 [place] Physicia ns Body temperature 2020-01-21 97.1 [degF] Method: Oral University of 15:44:00 [place] Physician s Systolic blood 2020-01-14 113 mm[Hg] Location: [facility]; [facility] 13:13:00 Position: [place] Physician s Sitting Diastolic blood 2020-01-14 75 mm[Hg] Location: [facility]; [facility] 13:13:00 Position: [place] Physician s Sitting Body height 2020-01-14 61 [in_us] University of 13:13:00 [place] Physician s Weight 2020-01-14 199.375 [lb_av] University o f 13:13:00 [place] Physician s Body mass index 2020-01-14 37.67 kg/m2 University o f (BMI) [Ratio] 13:13:00 [place] Physicia ns Body temperature 2020-01-14 98.3 [degF] Method: University of 13:13:00 Tympanic [place] Physician s Heart Rate 2020-01-14 88 /min [facility] 13:13:00 [place] Physician s Systolic blood 2019-11-30 106 mm[Hg] Location: [facility]; [facility] pressure 14:06:00 Position: [place] Physician s Sitting Diastolic blood 2019-11-30 73 mm[Hg] Location: [facility]; [facility] pressure 14:06:00 Position: [place] Physician s Sitting Body height 2019-11-30 61 [in_us] [facility] :06:00 [place] Physician s Weight 2019-11-30 191 [lb_av] [facility] :06:00 [place] Physician s Body mass index 2019-11-30 36.09 kg/m2 [facility] (BMI) [Ratio] 14:06:00 [place] [facility] Heart Rate 2019-11-30 83 /min [facility] :06:00 [place] Physician s Procedures Procedure Date / Time Performing Clinician Source Performed [QL] CBC (INCLUDES 2020-07-04 00:00:00 [facility] DIFF/PLT) Physicians [Q] VON WILLEBRAND 2020-07-04 00:00:00 [facility] COMPREHENSIVE PANEL Physicians [QL] PROTHROMBIN W/INR + 2020-07-04 00:00:00 [facility] PARTIAL THROMBOPLASTIN Physician s TIMES . [facility] - PAP w/reflex 2020-06-29 00:00:00 [facility] HPV if ASC-US or above Physician s [QL] CMP W/EGFR 2020-03-24 00:00:00 [facility] Physicians [Q] BILE ACIDS, 2020-03-24 00:00:00 [facility] FRACTIONATED AND TOTAL, Physicia ns [QL] CULTURE, URINE, 2020-03-24 00:00:00 [facility] ROUTINE Physicians . [facility] - 2020-03-09 00:00:00 [facility] COVID-19/SARS-Cov-2 Physicians [Q] GLUCOSE, GESTATIONAL 2020-02-18 00:00:00 Uni [facility] SCREEN (50G)-130 CUTOFF Physicia ns [QL] CBC (INCLUDES 2020-02-18 00:00:00 [facility] DIFF/PLT) Physicians EKG w/Rhythm Strip 2020-01-21 00:00:00 [facility] Physicians [QL] URINALYSIS, COMPLETE 2020-01-21 00:00[facility]00 [facility] [Q] GLUCOSE, GESTATIONAL 2020-01-21 00:00:00 [facility] SCREEN (50G)-130 CUTOFF Physicia ns [QL] CBC (INCLUDES 2020-01-21 00:00:00 [facility] DIFF/PLT) Physicians [QL] CULTURE, URINE, 2020-01-21 00:00:00 [facility] ROUTINE Physicians . [facility] - Affirm VPIII 2020-01-15 00:00:00 [facility] (BV Panel) Physicians [Q] [id number] 2019-11-30 00:00:00 [facility] DEHYDROGENASE, QUANT. Physicians [Q] HEMOGLOBINOPATHY 2019-11-30 00:00:00 [facility] EVALUATION Physicians [Q] HIV AB, HIV 1/2, EIA, 2019-11-30 00:00:00 Un [facility] WITH REFLEXES Physicians [Q] OBSTETRIC PANEL 2019-11-30 00:00:00 [facility] Physicians [Q] TREPONEMA PALLIDUM AB, 2019-11-30 00:00[facility] Physician s [QL] CULTURE, URINE, 2019-11-30 00:00:00 [facility] ROUTINE Physicians [QL] URINALYSIS, COMPLETE 2019-11-30 00:00:00 [facility] Physicians [Q] IRON, TIBC AND 2019-11-30 00:00:00 [facility] FERRITIN PANEL Physicians [QL] FOLATE, SERUM 2019-11-30 00:00:00 [facility] Physicians . [facility] - GC/Chlamydia 2019-11-30 00:00:00 [facility] Physicians . [facility] - Affirm VPIII 2019-11-30 00:00:00 [facility] (BV Panel) Physicians History of Tonsillectomy [facility] Physicians History of Dilation And [facility] Curettage Physicians History of Appendectomy [facility] Physicians Plan of Care Planned Activity Planned Date Details Comments Source Future Scheduled Test 2020-03-21 . [facility] 00:00:00 COVID-19/SARS-Cov Physicians -2 [code = . [facility] - COVID-19/SARS-Cov -2] Diagnostic Test 2020-01-15 . [facility] - Affirm [facility] Pending 00:00:00 VPIII (BV Panel) Physicians [code = . [facility] - Affirm VPIII (BV Panel)] Encounters Start End Encounter Admission Attending Care Care Encounter Source Date/Time Date/Time Type Type Clinicians Facility Department ID 2021-02-13 2021-02-13 Urgent Provider, [facility] [id number] 10:32:50 10:52:50 [facility] [id number] Care [place] [id number] Professio [phone] nal [address] 2020-12-10 2020-12-10 Urgent Provider, [facility] [id number] 09:39:01 10:40:28 [facility] [id number] Care [place] [id number] Professio [id number] community health 044 [address] 2020-12-09 2020-12-09 Laboratory Lab, [facility] [id number] 15:03:11 15:23:11 Only Fam Pob I Health [id number] [place] [id number] Professio [phone] [place] [address] [address] 2020-11-29 2020-11-29 Office Chetan, [facility] [id number] 14:53:58 15:44:52 Visit Jose R Cisneros [place] [id number] Mural[place] [id number] Professio [id number] nal 092 [facility] [address] 2020-07-27 2020-07-27 Appointsumaya HEAD [facility] Obstetrics [id number] Univers 13:30:00 13:30:00 t; Mesfin TAVERAS and it y of SONIDO Gynecology Mick TAVERAS, [facility] Physi [facility] ans 2020-07-11 2020-07-11 Appointsumaya WADDELL [facility] [id number] Univers 15:00:00 15:00:00 t; Mesfin VELASCO y [place], [place] Mesfin VELASCO Physi [facility] 2020-07-06 2020-07-06 Appointmen MARQUISE, [facility] Obstetrics [id number] Univers 13:00:00 13:00:00 t; renata FLORES M.D. Gynecology Wilbert as Amira FLORES Phys [facility] M.D. [facility] ans 2020-07-05 2020-07-05 Appointmen BAIRON, [facility] [id number] Univers 09:00:00 09:00:00 t; Mesfin VELASCO [place], [place] Mesfin VELASCO Physi ci [facility] 2020-07-04 2020-07-04 Appointmen ADULT, [facility] [id number] Univers 15:30:00 15:30:00 t; ADULT, HEMOPHILIA Hemophilia itluiza of HEMOPHILIA and [place] Thrombophil Phys ici ri Center - [facility] 2020-06-29 2020-06-29 Appointmen DOLORES [facility] Women's [id number] Univers 14:30:00 14:30:00 t; MATTHEW BERNAL Adonis - itSaumya M.D. [facility] 2020-06-01 2020-06-01 Appointmen [facility] [id number] Univers 10:45:00 10:45:00 t; JJ SILVERIO ity of GREGORY, M.D. [place] Mesfin Physic ans 2020-04-29 2020-04-29 Appointmen MYA, C/S [facility] [id number] Univers 10:00:00 10:00:00 t; patric ROQUE C/S [place] Physici ans 2020-04-27 2020-04-27 Appoint[facility] [id number] Univers 13:30:00 13:30:00 t; Felipe HERNANDEZ M.D. [place] Rosmery HERNANDEZ M.D. [facility] 2020-04-14 2020-04-14 Emergency E [facility] [id number] [facility] 22:58:00 22:58:00 2020-03-31 2020-03-31 Appointmen WILL [facility] Obstetrics [id number] Univers 14:30:00 14:30:00 t; Michele STEWART D.O. Gynecology Wilberta s PAT, Continuity Physi ci D.O. Clinic ans 2020-03-31 2020-03-31 Appointmen SALES TRAINEE, UTP UTP [id number] Univers 13:00:00 13:00:00 t; SALES TRAINEE, ROOM3 ity of ROOM3 [place] Physici ans 2020-03-27 2020-03-27 Emergency E [facility] [id number] 21:39:00 21:39:00 2020-03-24 2020-03-24 Appointmen SALES TRAINEE, UTP [facility] [id number] Univers 15:15:00 15:15:00 t; SALES TRAINEE, ROOM2 ity of ROOM2 [place] Physici ans 2020-03-24 2020-03-24 Appointmen Reji COPELAND, [facility] Obstetrics [id number] Univers 13:30:00 13:30:00 t; Mesfin COPELAND and Zhou M.D. Gynecology [place] [facility] Physi ci Clinic ans 2020-03-09 2020-03-09 Appointmen VA, [facility] [id number] Univers 11:30:00 11:30:00 t; Raman AVLE M.D. [place] Mando VALE i Mesfin ans 2020-02-18 2020-02-18 Appointmen STEVENSON, [facility] Obstetrics [id number] Univers 15:00:00 15:00:00 t; Mesfin STONE and renetta STEVENSON, Gynecology Mick STONE, Continuity Physi ci M.D. Clinic ans 2020-02-12 2020-02-12 Appointmen SALES TRAINEE, [facility] Obstetrics [id number] Univers 13:00:00 13:00:00 t; SALES TRAINEE, ROOM3 and ity of ROOM3 Gynecology [place] Continuity Physi ci Clinic ans 2020-02-04 2020-02-04 Appointmen TOMEKA, [facility] [id number] Univers 13:30:00 13:30:00 t; ELIF ECKERT ity of BETHANY, M.D. [place] Mesfin Physici ans 2020-01-21 2020-01-21 Appointmen MALLY, [facility] UTP [id number] Univers 16:00:00 16:00:00 t; WALK-INS heladio BAL [place] WALK-INS Physici ans 2020-01-21 2020-01-21 Appointmen KATIE, [facility] Obstetrics [id number] Univers 15:30:00 15:30:00 t; FITZ, and ity of Nick WILSONO. Gynecology Mick s FITZ, Continuity Physi ci D.O. [facility] ans 2020-01-15 2020-01-15 Appointmen SALES TRAINEE, [facility] [id number] Univers 13:00:00 13:00:00 t; SALES TRAINEE, ROOM4 ity of ROOM4 [place] Physici ans 2020-01-14 2020-01-14 Appointmen CATE, [facility] Obstetrics [id number] Univers 13:45:00 13:45:00 t; Mesfin LIN and it y of CATE, Gynecology Mick LIN, Continuity Physi ci M.D. [facility] ans 2020-01-13 2020-01-13 Appointmen TERRELL, [facility] Psychiatry [id number] Univers 08:45:00 08:45:00 t; BURKE, Outpatient i ty of Mesfin TEJADA [facility] Physic i M.DClair ans 2019-12-28 2019-12-28 Appointmen ANGELO, [facility] [id number] Univers 13:30:00 13:30:00 t; Tiffany GREENBERG M.D. [place] YARI Physic i MClairDClair ans 2019-12-28 2019-12-28 Appointmen SALES TRAINEE, [facility] [id number] Univers 10:45:00 10:45:00 t; SALES TRAINEE, ROOM3 ity of ROOM3 [place] Physic ans 2019-12-28 2019-12-28 Appointmen OB/MD, [facility] [id number] Univers 10:00:00 10:00:00 t; OB/MD, ity of [facility] Physici ans 2019-12-09 2019-12-09 Appointsumaya TEJADA, [facility] Psychiatry [id number] Univers 10:30:00 10:30:00 t; BUREK, Outpatient i ty of Mesfin TEJADA [facility] Physic i M.DClair ans 2019-11-30 2019-11-30 Appointmen BLU, [facility] Obstetrics [id number] Univers 14:00:00 14:00:00 t; Mesfin AC and it y of [facility] Gynecology Mick chito YASHIRA, Continuity Physi [facility] ans 2015-11-03 2015-11-03 Appointmen NOLVIA, [facility] Obstetrics [id number] Univers 09:00:00 09:00:00 t; NOLVIA, FELLOW2 and heladio of FELLOW2 Gynecology [facility] Physi ci Clinic ans Results Test Description Test Time Test Comments Results Result Comments Source . [facility] - PAP w/reflex HPV if ASC-US or above 2020-06-29 00 :00:00 Test Item Value Reference Range Interpretation Comme nts Case (test code = Case) Click ImageLink button for report. A [facility] Physicians[QL] CMP [id number] 00:00:00 Test Item Value Reference Range Interpretation Comments GLUCOSE; Normal 68 mg/dl 65-99 N Fasting refe rence (test code = 1547-9) interva l UREA NITROGEN (BUN) 10 mg/dl 7-25 N (test code = UREA NITROGEN (BUN)) CREATININE (test 0.46 mg/dl 0.50-1.10 code = CREATININE) eGFR NON-AFR. 134 > OR = 60 N TUVALUAN (test code {ML/MIN/1.7} = eGFR NON-AFR. TUVALUAN) eGFR 156 > OR = 60 N TUVALUAN (test code {ML/MIN/1.7} = eGFR ) BUN/CREATININE [...] mg/dl 0.2-1.2 N Normal (test code = 88838-0) ALKALINE PHOSPHATASE 120 u/l 31-125 N (test code = ALKALINE PHOSPHATASE) AST; Normal (test 14 u/l 10-30 N code = 1916-6) ALT; Normal (test 16 u/l 6-29 N SPECIMEN R ECEIVED code = 1742-6) DATE AND TIME : [facility][Q] BILE ACIDS, FRACTIONATED [...] performancechar acteristics have been deter mined by [facility] mandel. It has not beencleared or approved by FDA. This as say has been validatedpursua nt to the CLIA regulations and is used for clinicalpurpose s.SPECIMEN RECEIVED DATE A ND TIME: [facility][QL] CULTURE, URINE, [id number] 00:00:00 Test Item Value Reference Range Interpretation [...] RECEIVED DATE SCREEN (50G)-130 AND TIME: 2 [id number] CUTOFF; Normal (test code = 28741-8) [facility][QL] CBC (INCLUDES DIFF/PLT)2020-02-18 16:06:00 Test Item Value Reference Range Interpretation Comments WHITE BLOOD CELL 13.6 3.8-10.8 COUNT (test code = {Thousand/u} WHITE BLOOD CELL COUNT) RED BLOOD CELL COUNT 3.80 3.80-5.10 N (test code = RED {Million/uL} BLOOD CELL COUNT) HEMOGLOBIN; Below 10.8 g/dl 11.7-15.5 Low Threshold (test code = 77471-8) HEMATOCRIT; Below 32.5 % 35.0-45.0 Low Threshold (test code = 4544-3) MCV; Normal (test 85.5 fL 80.0-100.0 N code = 787-2) MCHC; Normal (test 33.2 g/dl 32.0-36.0 N code = 60380-3) RDW; Normal (test 13.1 % 11.0-15.0 N code = 788-0) PLATELET COUNT; 262 140-400 N Normal (test code = {Thousand/u} 777-3) MPV; Normal (test 11.8 fL 7.5-12.5 N code = 57480-1) ABSOLUTE NEUTROPHILS 14585 [phone] (test code = {cells/uL} ABSOLUTE NEUTROPHILS) ABSOLUTE LYMPHOCYTES [phone] N (test code = {cells/uL} ABSOLUTE LYMPHOCYTES) [...] Normal 6.2 % N (test code = 45763-1) EOSINOPHILS; Normal 0.9 % N (test code = 67198-8) BASOPHILS; Normal 0.3 % N SPECIMEN R ECEIVED (test code = DATE AND TIME: 22322-3) [id number] [facility][QL] URINALYSIS, [id number] 00:00:00 Test Item Value Reference Range Interpretation [...] Normal NEGATIVE NEGATIVE N (test code = 63184-9) KETONES; Normal (test NEGATIVE NEGATIVE N code = 30339-5) OCCULT BLOOD; Normal NEGATIVE NEGATIVE N (test code = 88091-0) PROTEIN; Normal (test NEGATIVE NEGATIVE N code = 41640-2) NITRITE; Normal (test NEGATIVE NEGATIVE N code = 55461-6) LEUKOCYTE ESTERASE 1+ NEGATIVE A (test code = LEUKOCYTE ESTERASE) WBC; Abnormal (test 10-20 < OR = 5 A code = 6690-2) RBC; Normal (test 0-2 < OR = 2 N code = 789-8) SQUAMOUS EPITHELIAL > OR = 60 < OR = 5 A CELLS; Abnormal (test code = 64047-9) BACTERIA; Abnormal FEW NONE SEEN A (test code = 630-4) CALCIUM OXALATE FEW NONE OR FEW N CRYSTALS; Normal (test code = 89079-9) HYALINE CAST; Normal NONE SEEN NONE SEEN N SPECIME N RECEIVED DATE (test code = 24525-5) AND TI ME: [id number] [facility] Physicians[QL] CULTURE, URINE, [id number] 00:00:00 Test Item Value Reference Range Interpretation [...] desired.SPECIME N RECEIVED DATE A ND TIME: [id number] [facility]. [facility] - Affirm VPIII (BV Panel)2020-01-15 00:00:00 Test Item Value Reference Range Interpretation Comments Case (test code = Click ImageLink button N Case) for report. [facility][Q] IRON, TIBC AND FERRITIN [id number] 15:53:00 Test Item Value Reference Range Interpretation Comments IRON, TOTAL (test 108 {mcg/dl} 40-190 N code = IRON, TOTAL) IRON BINDING 454 {mcg/dL 250-450 CAPACITY (test code ca} = IRON BINDING CAPACITY) % SATURATION (test 24 {% CALC} 16-45 N SPECIMEN RECEIVED code = % DATE AND TIME: SATURATION) FERRITIN (test code 13 ng/ml 16-154 SPECIMEN RECEIVED = FERRITIN) DATE AND TIME: [facility][Q] OBSTETRIC [id number] 15:53:00 Test Item Value Reference Range Interpretation Comments WHITE BLOOD CELL 13.1 3.8-10.8 COUNT (test code = {Thousand/u} WHITE BLOOD CELL COUNT) RED BLOOD CELL 4.07 3.80-5.10 N COUNT (test code = {Million/uL} RED BLOOD CELL COUNT) HEMAGLOBIN; Normal 12.3 g/dl 11.7-15.5 N (test code = 19842-0) HEMATOCRIT; Normal 36.0 % 35.0-45.0 N (test code = 4544-3) MCV; Normal (test 88.5 fL 80.0-100.0 N code = 787-2) MCHC; Normal (test 34.2 g/dl 32.0-36.0 N code = 23539-9) RDW; Normal (test 13.2 % 11.0-15.0 N code = 788-0) PLATELET COUNT; 260 {Thousand/u} 140-400 N Normal (test code = 777-3) MPV; Normal (test 11.7 fL 7.5-12.5 N code = 60757-2) ABSOLUTE 9930 {cells/uL} 9971-9221 NEUTROPHILS (test code = ABSOLUTE NEUTROPHILS) ABSOLUTE [...] Normal 5.6 % N (test code = 69438-2) EOSINOPHILS; Normal 1.4 % N (test code = 87071-8) BASOPHILS; Normal 0.5 % N SPECIMEN R ECEIVED (test code = DATE AND TIME: 96849-8) [id number] ANTIBODY SCREEN, NO ANTIBODIES N Reference range [...] code RH(D) NEGATIVE For add itional = 76560-1) information, pl ease refer to http://educatio n.Que stDiagnostics.c om/fa q/TNT775 (This link is being provid ed for informational/e ducat ional purposes only.)SPECIMEN RECEIVED DATE A ND TIME: RPR (DX) W/REFL NON-REACTIVE NON-REACTIVE N SPECIMEN REC EIVED TITER AND DATE AND TIME: CONFIRMATORY [id number] TESTING (test code = RPR (DX) W/REFL TITER AND CONFIRMATORY TESTING) HEPATITIS B SURFACE NON-REACTIVE NON-REACTIVE N SPECIMEN RECEIVED ANTIGEN; Normal DATE AND BENJAMIN E: (test code = 270282876185 5195-3) RUBELLA ANTIBODY 3.85 {index} N Index (IGG); Normal (test Interpre tation code = 26760-3) ----- <0.90 Not consistent with Immunity 0.90-0.99 Equivocal > or = 1.00 Consi stent with Immunity The presence of rub shaheen IgG antibody suggests immunization or past or current infe ction withrubella virus.SPECIMEN RECEIVED DATE A ND TIME: [facility][Q] [id number] DEHYDROGENASE, QUANT. 2019-11-30 15:53:00 Test Item Value Reference Range Interpretation Comments [id number] 18.1 {U/g 7.0-20.5 SPECIMEN RECEIVED DEHYDROGENASE (test Hgb} DATE AND TIME: code = 229295896509 [id number] DEHYDROGENASE) [facility][QL] FOLATE, [id number] 15:53:00 Test Item Value Reference Range Interpretation [...] RECEIVED DATE AND TIME: code = TREPONEMA [id number] 6 PALLIDUM AB, PARTICLE AGGLUTINATION) [facility][QL] CULTURE, URINE, [id number] 15:53:00 Test Item Value Reference Range Interpretation [...] ND TIME: [facility][Q] HEMOGLOBINOPATHY [id number] 15:53:00 Test Item Value Reference Range Interpretation Comments RED BLOOD CELL COUNT 3.96 3.80-5.10 N (test code = RED {Million/uL} BLOOD CELL COUNT) HEMAGLOBIN; Normal 12.4 g/dl 11.7-15.5 N (test code = 97979-9) HEMATOCRIT; Normal 35.4 % 35.0-45.0 N (test code = 4544-3) MCV; Normal (test 89.4 fL 80.0-100.0 N code = 787-2) MCH; Normal (test 31.3 pg 27.0-33.0 N code = 77110-1) RDW; Normal (test 13.4 % 11.0-15.0 N SPECIMEN R ECEIVED code = 788-0) DATE AND TIME: HEMOGLOBIN A (test 97.6 % >96.0 N code = HEMOGLOBIN A) HEMOGLOBIN F (test <1.0 <2.0 N code = HEMOGLOBIN F) HEMOGLOBIN A2 2.4 % 1.8-3.5 N (QUANT); Normal (test code = 39789-8) INTERPRETATION (test See Comment Normal code = phenotype.SPECI MEN INTERPRETATION) RECEIVED MIGUEL E AND TIME: [facility][Q] HIV-1/2 Antigen and Antibodies, Fourth Generation, with [id number] 15:53:00 Test Item Value Reference Range Interpretation Comments HIV AG/AB, 4TH NON-REACTIVE NON-REACTIVE N HIV-1 antigen and GEN; Normal HIV-1/HIV-2 ant ibodies were (test code = [place] [address]-6) laboratory evid ence of HIVinfection. P LEJERZY NOTE: This informatio n has been disclosed toyou from records whose confidentiality may beprotected by state law. If your state r equires suchprotection, then the state law prohi bits you frommaking any further disclosure of t he informationwith out the specific writte n consent of the personto om it pertains, or as otherwise permitted by la w.A general authorization f or the release of medi [facility] orother information is NOT sufficient for this purpose. For a dditional information ple ase refer tohttp://educat ion.[employer]/fa q/BCY803(Thi s link is being provided for informational/e ducational purposes only.) The performance of this assay has not been clinicallyvalid ated in patients less t prince 2 years old. SPECIMEN R ECEIVED DATE AND TIME: [facility]. [facility] - [id number] 00:00:00 Test Item Value Reference Range Interpretation Comments Case (test code = Click ImageLink button N Case) for report. [facility]iciansPREGNANCY SCREEN, [id number] 20:01:00 Test Item Value Reference Range Interpretation Comments TEST URINE (BEAKER) (test Negative code = 583) [id number] 11:54:00 Test Item Value Reference Range Interpretation Comments RPR SCREEN (BEAKER) (test code = Nonreactive Nonreactive 420) HEMOGLOBIN [id number] 10:47:00 Test Item Value Reference Range Interpretation Comments HEMOGLOBIN A1C (BEAKER) (test code = 5.2 % 4.3-6.1 368) TSH/FREE T4 IF [id number] 06:03:00 Test Item Value Reference Range Interpretation Comments THYROID STIMULATING HORMONE 0.97 uIU/mL 0.35-4.94 (BEAKER) (test code = 772) VITAMIN B12 AND [id number] 06:03:00 Test Item Value Reference Range Interpretation Comments VITAMIN B12 (BEAKER) (test code = 384 pg/mL 213-816 774) FOLATE (BEAKER) (test code = 362) 11.5 ng/mL >=7.0 Effective 07/13/2014: Folate Reference Range ChangeNew: >=7.0 Previous: >=5.4HIV-1 ANTIGEN WITH HIV-1/2 [id number] 05:29:00 Test Item Value Reference Range Interpretation Comments HIV-1 ANTIGEN WITH HIV 1\T\2 Nonreactive Nonreactive ANTIBODY (2) (BEAKER) (test code = 2586) [id number] 05:18:00 Test Item Value Reference Range Interpretation [...] exclusion of thrombosis is within 95-100% range. [id number] 05:18:00 Test Item Value Reference Range Interpretation Comments MAGNESIUM (BEAKER) (test code = 2.1 mg/dL 1.6-2.6 627) LIPID [id number] 05:18:00 Test Item Value Reference Range Interpretation [...] 130-159 High 160-189 Very High >=190BASIC METABOLIC [id number] 05:18:00 Test Item Value Reference Range Interpretation [...] PATIEN TS. CBC W/PLT COUNT & AUTO [id number] 05:09:00 Test Item Value Reference Range Interpretation [...]
[2021-03-05] MEDS ORDERED: HYDROCODONE/APAP 7.5/325 MG TAB ONE (13:17)
[2021-03-05] MEDS ORDERED: LIDOCAINE 1% MPF 5 ML VIAL ONE (13:17)
--- NOTE | 2021-03-05 14:33 | ER ---
Nurse's Notes [facility] Name: Lauren Polanco Age: 31 yrs Sex: Female : 1990 Arrival Date: 03/05/2021 Time: 12:25 Bed 26 Private MD: Diagnosis: Cutaneous abscess of buttock Presentation: 03/05 12:40 Chief complaint: Patient states: Possible staph infection to buttocks. aa5 12:40 Method Of Arrival: Ambulatory aa5 12:40 Acuity: YANICK 4 aa5 14:05 Coronavirus screen: At this time, the client does not indicate any symptoms associated zb with coronavirus-19. Ebola Screen: No symptoms or risks identified at this time. Initial Sepsis Screen: Does the patient meet any 2 criteria? No. Patient's initial sepsis screen is negative. Does the patient have a suspected source of infection? No. Patient's initial sepsis screen is negative. Risk Assessment: Do you want to hurt yourself or someone else? Patient reports no desire to harm self or others. Onset of symptoms was March 05, 2021. Historical: - Allergies: 12:43 Macrobid; aa5 - PMHx: 12:43 Anxiety; [place]; MRSA; aa5 - Immunization history:: Adult Immunizations up to date. - Social history:: Smoking status: unknown. Screenin:41 Abuse screen: Denies threats or abuse. Denies injuries from another. Nutritional zb screening: No deficits noted. Tuberculosis screening: No symptoms or risk factors identified. Fall Risk None identified. Assessment: 13:30 General: Appears in no apparent distress. Behavior is calm, cooperative, appropriate zb for age. Pain: Complains of pain in gluteal cleft Pain began a week. Neuro: Level of Consciousness is awake, alert, obeys commands, Oriented to person, place, time, Moves all extremities. Full function. Cardiovascular: Heart tones S1 S2 present. Respiratory: Airway is patent Respiratory effort is even, unlabored, Respiratory pattern is regular, symmetrical. Derm: Abscess located on gluteal cleft is quarter sized, is red, is raised. Musculoskeletal: Range of motion: intact in all extremities. 14:47 Reassessment: Patient appears in no apparent distress at this time. Patient and/or zb family updated on plan of care and expected duration. Pain level reassessed. Patient is alert, oriented x 3, equal unlabored respirations, skin warm/dry/pink. wound dressed with 2x2 gauze and paper tape. Vital Signs: 12:40 BP 119 / 66; Pulse 65; Resp 16 S; Temp 98.2(TE); Pulse Ox 100% on R/A; aa5 13:41 BP 94 / 53; Pulse 79; Resp 16; Pulse Ox 98% on R/A; zb 14:47 BP 95 / 66; Pulse 85; Resp 16; Pulse Ox 100% on R/A; zb ED Course: 12:25 Patient arrived in ED. bp1 12:34 Latoya Puentes FNP-C [facility]. kb 12:34 Fran Jefferson MD is Attending Physician. kb 12:40 Arm band placed on. aa5 12:43 Triage completed. aa5 12:55 Davina Polanco, ZOË is Primary Nurse. zb 14:05 Patient has correct armband on for positive identification. Placed in gown. Bed in low zb position. Call light in reach. Pulse ox on. NIBP on. Door closed. Noise minimized. 14:36 Assist provider with I \T\ D: Wound packed. iodoform gauze. Patient did not have IV zb access during this emergency room visit. Administered Medications: 13:19 Drug: [place] (HYDROcodone-acetaminophen) (7.5 mg-325 mg) 1 tabs {Note: RASS 0.} Route: zb PO; 14:35 Follow up: Response: No adverse reaction; Marked relief of symptoms; Pain is decreased; zb RASS: Alert and Calm (0) 13:20 Drug: Lidocaine (1 %) 1 vials {Note: at bedside. .} Volume: 5 ml; Route: Infiltration; zb 14:48 Follow up: Response: No adverse reaction; Marked relief of symptoms zb 14:48 Drug: Bactrim (trimethoprim-sulfamethoxazole) (160 mg-800 mg (DS) 1 tablet Route: PO; zb 14:48 Follow up: Response: Medication administered at discharge. zb Outcome: 14:33 Discharge ordered by . kb 14:36 Discharged to home ambulatory. zb 14:36 Condition: stable 14:36 Discharge instructions given to patient, Instructed on discharge instructions, follow up and referral plans. medication usage, Demonstrated understanding of instructions, follow-up care, medications, Prescriptions given X 1. 14:54 Patient left the ED. zb Signatures: Latoya Puentes, TATO ARAIZA-Kelin Lewis, RN RN aa5 Alexus Jimenez Zipporah, RN RN zb Corrections: (The following items were deleted from the chart) 12:44 12:43 Allergies: yellow and black antibiotic pill; lexa lindquist
--- NOTE | 2021-03-05 14:33 | EDPHYS ---
Physician Documentation [facility] Name: Lauren Polanco Age: 31 yrs Sex: Female : 1990 Arrival Date: 03/05/2021 Time: 12:25 Bed 26 Private MD: ED Physician Fran Jefferson HPI: 03/05 16:03 This 31 yrs old Female presents to ER via Ambulatory with complaints of Staph kb Infection. 16:03 The patient presents with an abscess of the gluteal cleft. Description: fluctuant. kb Onset: The symptoms/episode began/occurred 1 month(s) ago. Possible cause(s): unknown. Associated signs and symptoms: Pertinent positives: erythema, swelling, Pertinent negatives: discharge, drainage, foreign body sensation, fever, headache, nausea, shortness of breath, vomiting. Modifying factors: the symptoms are alleviated by nothing, the symptoms are aggravated by nothing. Severity of symptoms: At their worst the symptoms were mild, in the emergency department the symptoms are unchanged. The patient has not experienced similar symptoms in the past. The patient has not recently seen a physician. Historical: - Allergies: 12:43 Macrobid; aa5 - PMHx: 12:43 Anxiety; [place]; MRSA; aa5 - Immunization history:: Adult Immunizations up to date. - Social history:: Smoking status: unknown. ROS: 15:59 Constitutional: Negative for fever, chills, and weight loss. kb 15:59 Skin: Positive for abscess, of the gluteal cleft. 15:59 All other systems are negative. Exam: 15:59 Constitutional: This is a well developed, well nourished patient who is awake, alert, kb and in no acute distress. Head/Face: Normocephalic, atraumatic. ENT: Moist Mucous membranes Respiratory: Respirations even and unlabored. No increased work of breathing, no retractions or nasal flaring. Abdomen/GI: Soft, non-tender. No distention MS/ Extremity: Pulses equal, no cyanosis. Neurovascular intact. Full, normal range of motion. Neuro: Awake and alert, GCS 15, oriented to person, place, time, and situation. Moves all extremities. Normal gait. Psych: Awake, alert, with orientation to person, place and time. Behavior, mood, and affect are within normal limits. 15:59 Skin: abscess, that is small, of the gluteal cleft, with fluctuance, that is mild. Vital Signs: 12:40 BP 119 / 66; Pulse 65; Resp 16 S; Temp 98.2(TE); Pulse Ox 100% on R/A; aa5 13:41 BP 94 / 53; Pulse 79; Resp 16; Pulse Ox 98% on R/A; zb 14:47 BP 95 / 66; Pulse 85; Resp 16; Pulse Ox 100% on R/A; zb Procedures: 16:03 I \T\ D: Incision and drainage was performed for an abscess of the gluteal cleft Prepped kb with Betadine, Anesthetized with 1 ml's 1% Lidocaine. Incised with #11 blade. Drained serosanguinous fluid. Dressing: sterile 4x4 gauze, the patient tolerated the procedure well. MDM: 12:35 Patient medically screened. kb 15:59 Data reviewed: vital signs, nurses notes. Data interpreted: Pulse oximetry: on room air kb is 100 %. Interpretation: normal. Counseling: I had a detailed discussion with the patient and/or guardian regarding: the historical points, exam findings, and any diagnostic results supporting the discharge/admit diagnosis, the need for outpatient follow up, a family practitioner, to return to the emergency department if symptoms worsen or persist or if there are any questions or concerns that arise at home. 03/05 12:44 Order name: I\T\D Setup; Complete Time: 13:20 kb Administered Medications: 13:19 Drug: [place] (HYDROcodone-acetaminophen) (7.5 mg-325 mg) 1 tabs {Note: RASS 0.} Route: zb PO; 14:35 Follow up: Response: No adverse reaction; Marked relief of symptoms; Pain is decreased; zb RASS: Alert and Calm (0) 13:20 Drug: Lidocaine (1 %) 1 vials {Note: at bedside. .} Volume: 5 ml; Route: Infiltration; zb 14:48 Follow up: Response: No adverse reaction; Marked relief of symptoms zb 14:48 Drug: Bactrim (trimethoprim-sulfamethoxazole) (160 mg-800 mg (DS) 1 tablet Route: PO; zb 14:48 Follow up: Response: Medication administered at discharge. zb Disposition Summary: 03/05/21 14:33 Discharge Ordered Location: Home kb Condition: Stable kb Diagnosis - Cutaneous abscess of buttock kb Followup: kb - With: Emergency Department - When: As needed - Reason: Worsening of condition Followup: kb - With: Private Physician - When: 2 - 3 days - Reason: Recheck today's complaints, Continuance of care, Re-evaluation by your physician Discharge Instructions: - Discharge Summary Sheet kb - Skin Abscess, Emtf-lm-Tbuv kb - Incision and Drainage, Care After kb Forms: - Medication Reconciliation Form kb - Thank You Letter kb - Antibiotic Education kb - Prescription Opioid Use kb Prescriptions: - Bactrim DS 800-160 mg Oral Tablet - take 1 tablet by ORAL route every 12 hours for 10 days; 20 tablet; Refills: 0, kb Product Selection Permitted Signatures: Dispatcher [employer] EDLatoya Peña, TEODORA-C TEODORA-Kelin Lewis, RN RN aa5 Davina Polanco RN RN zb Corrections: (The following items were deleted from the chart) 12:44 12:43 Allergies: yellow and black antibiotic pill; lexa lindquist
[2021-03-05] MEDS ORDERED: SMZ./TMP. 800/160 MG TABLET ONE (14:59)
[2021-03-05 15:07] VITALS: TEMP 98.2
[2021-03-05 15:10] VITALS: BP 95/66; O2SAT 100
== END 2021-03-05 14:54 | disposition home or self-care (01) ==
LOC: ER 12:21
PROC: 0J990ZZ Drainage of Buttock Subcutaneous Tissue and Fascia, Open Approach (ICD-10-PCS; principal; 2021-03-05)
DX: L02.31 Cutaneous abscess of buttock (principal); Z88.1 Allergy status to other antibiotic agents
CPT/HCPCS: 99284

== ENCOUNTER 2021-08-31 09:10 | Emergency (ER) | payer OTHER ==
--- OUTSIDE RECORDS SUMMARY | 2021-08-31 09:24 | XMS REPORT | Continuity of Care Document ---
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 Branch follow package directions cyclobenzap 2020- 2020- No [id number] 5mg Take 1 [facility] rine 5 mg 0-02 10-08 tablet by ity of tablet 00:00: 04:59 mouth 3 [place] 00 :00 (three) Medical times Branch daily for 5 days. cyclobenzap 2020- 2020- No [id number] 5mg Take 1 [facility] rine 5 mg 0-02 10-08 tablet by ity of tablet 00:00: 04:59 mouth 3 [place] 00 :00 (three) Medical times Branch daily for 5 days. cyclobenzap 2020- 2020- No [id number] 5mg Take 1 [facility] rine 5 mg 0-02 10-08 tablet by ity of tablet 00:00: 04:59 mouth 3 [place] 00 :00 (three) Medical times [place] daily for 5 days. multivit-mi 2020-0 Yes Take by Un husam n/ferrous 8-15 mouth. ity of fumarate 17:31: [place] ([place] [address] Medical VITAMIN Branch ORAL) escitalopra 2020-0 Yes 20mg Take 20 mg [facility] m oxalate 8-15 by mouth ity of (LEXAPRO) 17:31: daily. [place] 20 mg 54 Medical tablet Branch traZODone 2020-0 Yes 75mg Take 75 mg Un husam 100 mg 8-15 by mouth ity of tablet 17:31: at [place] [address] bedtime. Medical Branch multivit-mi 2020-0 Yes Take by Un husam n/ferrous 8-15 mouth. ity of fumarate 17:31: [place] ([place] [address] Medical VITAMIN Branch ORAL) escitalopra 2020-0 Yes 20mg Take 20 mg [facility] m oxalate 8-15 by mouth ity of (LEXAPRO) 17:31: daily. [place] 20 mg 54 Medical tablet Branch traZODone 2020-0 Yes 75mg Take 75 mg Un [facility]am 100 mg 8-15 by mouth ity of tablet 17:31: at [place] [address] bedtime. Medical Branch multivit-mi 2020-0 Yes Take by Un husam n/ferrous 8-15 mouth. ity of fumarate 17:31: [place] ([place] [address] Medical VITAMIN Branch ORAL) escitalopra 2020-0 Yes 20mg Take 20 mg [facility] m oxalate 8-15 by mouth ity of (LEXAPRO) 17:31: daily. [place] 20 mg 54 Medical tablet Branch traZODone 2020-0 Yes 75mg Take 75 mg Un [facility]am 100 mg 8-15 by mouth ity of tablet 17:31: at [place] [address] bedtime. Medical Branch multivit-mi 2020-0 Yes Take by Un husam n/ferrous 8-15 mouth. ity of fumarate 17:31: [place] ([place] [address] Medical VITAMIN Branch ORAL) escitalopra 2020-0 Yes 20mg Take 20 mg [facility] m oxalate 8-15 by mouth ity of (LEXAPRO) 17:31: daily. [place] 20 mg 54 Medical tablet Branch traZODone 2020-0 Yes 75mg Take 75 mg Un [facility]am 100 mg 8-15 by mouth ity of tablet 17:31: at [place] [address] bedtime. Medical Branch multivit-mi 2020-0 Yes Take by Un husam n/ferrous 8-15 mouth. ity of fumarate 17:31: [place] ([place] [address] Medical VITAMIN Branch ORAL) escitalopra 2020-0 Yes 20mg Take 20 mg [facility] m oxalate 8-15 by mouth ity of (LEXAPRO) 17:31: daily. [place] 20 mg 54 Medical tablet Branch traZODone 2020-0 Yes 75mg Take 75 mg Un [facility]am 100 mg 8-15 by mouth ity of tablet 17:31: at [place] [address] bedtime. Medical Branch multivit-mi 2020-0 Yes Take by Un husam n/ferrous 8-15 mouth. ity of fumarate 17:31: [place] ([place] [address] Medical VITAMIN Branch ORAL) escitalopra 2020-0 Yes 20mg Take 20 mg [facility] m oxalate 8-15 by mouth ity of (LEXAPRO) 17:31: daily. [place] 20 mg 54 Medical tablet Branch traZODone 2020-0 Yes 75mg Take 75 mg Un [facility]am 100 mg 8-15 by mouth ity of tablet 17:31: at [place] [address] bedtime. Medical Branch Ursodiol Ursodiol 2020-0 Yes K MIN Q0.3333D TAKE 1 [facility] 250 MG Oral 250 MG Oral 8-04 M.D. TABLET 3 ity of Tablet Tablet 00:00: TIMES [place] 00 DAILY. Physici ans hydrOXYzine hydrOXYzine 2020-0 Yes K MIN Q0.3333D TAKE 1 [facility] HCl - 25 MG HCl - 25 MG 7-30 M.D. TABLET 3 ity of Oral Tablet Oral Tablet 00:00: TIMES [place] 00 DAILY Physici NEEDED. ans multivit-mi 2019-0 Yes Take by Un husam n/ferrous 7-17 mouth. ity of fumarate 22:03: [place] (MULTI 07 Medical VITAMIN Branch ORAL) HYDROcodone 2020-0 2020- No 1{tbl} 1 tablet, Univers -acetaminop 03-06 Oral, ity of hen (NORCO 17:45: 17:08 ONCE, 1 [place] 5) 5-325 mg 00 :00 dose, Sun Med ical tablet 1 03/06/20 at [facility] h tablet 1245, [place] clindamycin 2020-0 2020- No 450mg 450 mg, U nivers (CLEOCIN 03-06 Oral, ity of HCL) 17:45: 17:08 ONCE, 1 [place] capsule 450 00 :00 dose, Sun Med ical mg 03/06/20 at Branch 1245, [place]
Re ason for Anti-Infec tive: Documented Infection< br>Documen tessie Infection Site: HEENT
D uration of Therapy: 10 days
Re stricted use approved by: [employer] PROVIDER acetaminoph 2020-0 Yes 4647 1{tbl} Take 1 Un husam en-codeine 7-12 tablet by ity of 300-30 mg 00:00: mouth [place] tablet 00 every 4 Medical (four) Branch hours as needed for Pain (scale 4-6). Indication s: acute pain acetaminoph 2020-0 Yes 4647 1{tbl} Take 1 Un [facility]am en-codeine 7-12 tablet by ity of 300-30 mg 00:00: mouth [place] tablet 00 every 4 Medical (four) Branch hours as needed for Pain (scale 4-6). Indication s: acute pain acetaminoph 2020-0 Yes 4647 1{tbl} Take 1 Un husam en-codeine 7-12 tablet by ity of 300-30 mg 00:00: mouth [place] tablet 00 every 4 Medical (four) Branch hours as needed for Pain (scale 4-6). Indication s: acute pain acetaminoph 2020-0 Yes 4647 1{tbl} Take 1 Un [facility] en-codeine 7-12 tablet by ity of 300-30 mg 00:00: mouth [place] tablet 00 every 4 Medical (four) Branch hours as needed for Pain (scale 4-6). Indication s: acute pain acetaminoph 2020-0 Yes 4647 1{tbl} Take 1 Un [facility]am en-codeine 7-12 tablet by ity of 300-30 mg 00:00: mouth [place] tablet 00 every 4 Medical (four) Branch hours as needed for Pain (scale 4-6). Indication s: acute pain acetaminoph 2020-0 Yes 4647 1{tbl} Take 1 Un husam en-codeine 7-12 tablet by ity of 300-30 mg 00:00: mouth [place] tablet 00 every 4 Medical (four) Branch hours as needed for Pain (scale 4-6). Indication s: acute pain acetaminoph 2020-0 Yes 4647 1{tbl} Take 1 Un husam en-codeine 7-12 tablet by ity of 300-30 mg 00:00: mouth [place] tablet 00 every 4 Medical (four) Branch hours as needed for Pain (scale 4-6). Indication s: acute pain acetaminoph 2020-0 Yes 4647 1{tbl} Take 1 Un husam en-codeine 7-12 tablet by ity of 300-30 mg 00:00: mouth [place] tablet 00 every 4 Medical (four) Branch hours as needed for Pain (scale 4-6). Indication s: acute pain acetaminoph 2020-0 Yes 4647 1{tbl} Take 1 Un husam en-codeine 7-12 tablet by ity of 300-30 mg 00:00: mouth [place] tablet 00 every 4 Medical (four) Branch hours as needed for Pain (scale 4-6). Indication s: acute pain acetaminoph 2020-0 Yes 4647 1{tbl} Take 1 Un [facility] en-codeine 7-12 tablet by ity of 300-30 mg 00:00: mouth [place] tablet 00 every 4 Medical (four) Branch hours as needed for Pain (scale 4-6). Indication s: acute pain acetaminoph 2020-0 Yes 4647 1{tbl} Take 1 Un husam en-codeine 7-12 tablet by ity of 300-30 mg 00:00: mouth [place] tablet 00 every 4 Medical (four) Branch hours as needed for Pain (scale 4-6). Indication s: acute pain acetaminoph 2020-0 Yes 4647 1{tbl} Take 1 Un [facility] en-codeine 7-12 tablet by ity of 300-30 mg 00:00: mouth [place] tablet 00 every 4 Medical (four) Branch hours as needed for Pain (scale 4-6). Indication s: acute pain acetaminoph 2020-0 Yes 4647 1{tbl} Take 1 Un [facility] en-codeine 7-12 tablet by ity of 300-30 mg 00:00: mouth [place] tablet 00 every 4 Medical (four) Branch hours as needed for Pain (scale 4-6). Indication s: acute pain acetaminoph 2020-0 Yes 4647 1{tbl} Take 1 Un [facility] en-codeine 7-12 tablet by ity of 300-30 mg 00:00: mouth [place] tablet 00 every 4 Medical (four) Branch hours as needed for Pain (scale 4-6). Indication s: acute pain acetaminoph 2020-0 Yes 4647 1{tbl} Take 1 Un [facility] en-codeine 7-12 tablet by ity of 300-30 mg 00:00: mouth [place] tablet 00 every 4 Medical (four) Branch hours as needed for Pain (scale 4-6). Indication s: acute pain acetaminoph 2020-0 Yes 4647 1{tbl} Take 1 Un [facility] en-codeine 7-12 tablet by ity of 300-30 mg 00:00: mouth [place] tablet 00 every 4 Medical (four) Branch hours as needed for Pain (scale 4-6). Indication s: acute pain acetaminoph 2019-2020- No 4647 1{tbl} Take 1 U nivers en-codeine 7-12 03-01 tablet by ity of 300-30 mg 00:00: 00:00 mouth [place] tablet 00 :00 every 4 Medical (four) Branch hours as needed for Pain (scale 4-6). Indication s: acute pain acetaminoph 2020-0 2020- No 4647 1{tbl} Take 1 U nivers en-codeine 7-12 03-01 tablet by ity of 300-30 mg 00:00: 00:00 mouth [place] tablet 00 :00 every 4 Medical (four) Branch hours as needed for Pain (scale 4-6). Indication s: acute pain clindamycin 2019- 2020- No [id number] 450mg Take 3 [facility] 150 mg 7-12 07-23 capsules ity of capsule 00:00: 04:59 by mouth 3 [place] 00 :00 (three) Medical times Branch daily for 10 days. clindamycin 2019-0 2020- No [id number] 450mg Take 3 [facility] 150 mg 7-12 07-23 capsules ity of capsule 00:00: 04:59 by mouth 3 [place] 00 :00 (three) Medical times Branch daily for 10 days. clindamycin 2019-0 2020- No [id number] 450mg Take 3 [facility] 150 mg 7-12 07-23 capsules ity of capsule 00:00: 04:59 by mouth 3 [place] 00 :00 (three) Medical times Branch daily for 10 days. clindamycin 2019-2019- No [id number] 450mg Take 3 [facility] 150 mg 7-12 -23 capsules ity of capsule 00:00: 04:59 by mouth 3 [place] 00 :00 (three) Medical times Branch daily for 10 days. HYDROcodone 2019-0 2020- No 1{tbl} 1 tablet, Univers -acetaminop 6-15 06-15 Oral, ONCE i ty of hen (NORCO) 04:00: 03:06 NOW, 1 [place] 10-325 mg 00 :00 dose, Sun Medic al tablet 1 02/07/20 at [facility] h tablet 2300, Routine Esgic Esgic 2019-0 Yes YASHIRA TAKE 1 [...] HOURS Physi ci Tablet Tablet NEEDED. ans magnesium 2020-0 Yes 400mg 400 mg, Univ ers oxide 4-21 Oral, ity of (MAG-OX 14:00: DAILY, [place] 400) tablet 00 First dose Me dical 400 mg on Tue Branch 12/15/19 at 0900, Until Discontinu ed, Routine HYDROcodone 2019-0 2020- No 1{tbl} 1 tablet, Univers -acetaminop 4- 04-21 Oral, ity of hen (NORCO 03:15: 02:14 ONCE, 1 [place] 5) 5-325 mg 00 :00 dose, Mon Med ical tablet 1 12/13/20 at [facility] h tablet 2215, [place] magnesium 2020-0 Yes [id number] 400mg Take 1 [facility] oxide 400 4-20 tablet by ity o f mg (241.3 00:00: mouth [place] mg 00 daily. Medical magnesium) Branch tablet magnesium 2020-0 Yes [id number] 400mg Take 1 [facility] oxide 400 4-20 tablet by ity o f mg (241.3 00:00: mouth [place] mg 00 daily. Medical magnesium) Branch tablet magnesium 2020-0 Yes [id number] 400mg Take 1 [facility] oxide 400 4-20 tablet by ity o f mg (241.3 00:00: mouth [place] mg 00 daily. Medical magnesium) Branch tablet magnesium 2020-0 Yes [id number] 400mg Take 1 [facility] oxide 400 4-20 tablet by ity o f mg (241.3 00:00: mouth [place] mg 00 daily. Medical magnesium) Branch tablet magnesium 2020-0 Yes [id number] 400mg Take 1 [facility] oxide 400 4-20 tablet by ity o f mg (241.3 00:00: mouth [place] mg 00 daily. Medical magnesium) Branch tablet magnesium 2020-0 Yes [id number] 400mg Take 1 [facility] oxide 400 4-20 tablet by ity o f mg (241.3 00:00: mouth [place] mg 00 daily. Medical magnesium) Branch tablet magnesium 2020-0 Yes [id number] 400mg Take 1 [facility] oxide 400 4-20 tablet by ity o f mg (241.3 00:00: mouth [place] mg 00 daily. Medical magnesium) Branch tablet magnesium 2020-0 Yes [id number] 400mg Take 1 [facility] oxide 400 4-20 tablet by ity o f mg (241.3 00:00: mouth [place] mg 00 daily. Medical magnesium) Branch tablet magnesium 2020-0 Yes [id number] 400mg Take 1 [facility] oxide 400 4-20 tablet by ity o f mg (241.3 00:00: mouth [place] mg 00 daily. Medical magnesium) Branch tablet magnesium 2020-0 Yes [id number] 400mg Take 1 [facility] oxide 400 4-20 tablet by ity o f mg (241.3 00:00: mouth [place] mg 00 daily. Medical magnesium) Branch tablet magnesium 2020-0 Yes [id number] 400mg Take 1 [facility] oxide 400 4-20 tablet by ity o f mg (241.3 00:00: mouth [place] mg 00 daily. Medical magnesium) Branch tablet magnesium 2020-0 Yes [id number] 400mg Take 1 [facility] oxide 400 4-20 tablet by ity o f mg (241.3 00:00: mouth [place] mg 00 daily. Medical magnesium) Branch tablet magnesium 2020-0 Yes [id number] 400mg Take 1 [facility] oxide 400 4-20 tablet by ity o f mg (241.3 00:00: mouth [place] mg 00 daily. Medical magnesium) Branch tablet magnesium 2020-0 Yes [id number] 400mg Take 1 [facility] oxide 400 4-20 tablet by ity o f mg (241.3 00:00: mouth [place] mg 00 daily. Medical magnesium) Branch tablet magnesium 2020-0 Yes [id number] 400mg Take 1 [facility] oxide 400 4-20 tablet by ity o f mg (241.3 00:00: mouth [place] mg 00 daily. Medical magnesium) Branch tablet magnesium 2020-0 Yes [id number] 400mg Take 1 [facility] oxide 400 4-20 tablet by ity o f mg (241.3 00:00: mouth [place] mg 00 daily. Medical magnesium) Branch tablet magnesium 2020-0 Yes [id number] 400mg Take 1 [facility] oxide 400 4-20 tablet by ity o f mg (241.3 00:00: mouth [place] mg 00 daily. Medical magnesium) Branch tablet magnesium 2020-0 Yes [id number] 400mg Take 1 [facility] oxide 400 4-20 tablet by ity o f mg (241.3 00:00: mouth [place] mg 00 daily. Medical magnesium) Branch tablet magnesium 2020-0 Yes [id number] 400mg Take 1 [facility] oxide 400 4-20 tablet by ity o f mg (241.3 00:00: mouth [place] mg 00 daily. Medical magnesium) Branch tablet magnesium 2020-0 Yes [id number] 400mg Take 1 [facility] oxide 400 4-20 tablet by ity o f mg (241.3 00:00: mouth [place] mg 00 daily. Medical magnesium) Branch tablet magnesium 2020-0 Yes [id number] 400mg Take 1 [facility] oxide 400 4-20 tablet by ity o f mg (241.3 00:00: mouth [place] mg 00 daily. Medical magnesium) Branch tablet magnesium 2019-0 Yes [id number] 400mg Take 1 [facility] oxide 400 4-20 tablet by ity o f mg (241.3 00:00: mouth [place] mg 00 daily. Medical magnesium) Branch tablet magnesium 2019-0 Yes [id number] 400mg Take 1 [facility] oxide 400 4-20 tablet by ity o f mg (241.3 00:00: mouth [place] mg 00 daily. Medical magnesium) Branch tablet magnesium 2019-0 Yes [id number] 400mg Take 1 [facility] oxide 400 4-20 tablet by ity o f mg (241.3 00:00: mouth [place] mg 00 daily. Medical magnesium) Branch tablet magnesium 2019-0 Yes [id number] 400mg Take 1 [facility] oxide 400 4-20 tablet by ity o f mg (241.3 00:00: mouth [place] mg 00 daily. Medical magnesium) Branch tablet magnesium Yes [id number] 400mg Take 1 [facility] oxide 400 4-20 tablet by ity o f mg (241.3 00:00: mouth [place] mg 00 daily. Medical magnesium) Branch tablet magnesium 2020- No [id number] 400mg Take 1 [facility] oxide 400 4-20 03-01 tablet by ity of mg (241.3 00:00: 00:00 mouth [place] mg 00 :00 daily. Medical magnesium) Branch tablet magnesium 2020- No [id number] 400mg Take 1 [facility] oxide 400 4-20 03-01 tablet by ity of mg (241.3 00:00: 00:00 mouth [place] mg 00 :00 daily. Medical magnesium) Branch tablet traZODone traZODone 2019-0 Yes KAVIN 1.5 TAKE [...] Tablet Tablet 00 Physici ans metroNIDAZO metroNIDAZO 2019-0 Yes CHASE TAKE 4 Univers LE 500 MG LE 500 MG 4-09 [place] TABLETS ity of Oral Tablet Oral Tablet 00:00: M.D. ONCE. [place] 00 Physici ans multivit-mi 2020-0 Yes Take by Un husam n/ferrous 3-23 mouth. ity of fumarate 14:12: [place] (MULTI 20 Medical VITAMIN Branch ORAL) multivit-mi 2020-0 Yes Take by Un husam n/ferrous 3-23 mouth. ity of fumarate 14:12: [place] (MULTI 20 Medical VITAMIN Branch ORAL) multivit-mi 2020-0 Yes Take by Un husam n/ferrous 3-23 mouth. ity of fumarate 14:12: [place] (MULTI 20 Medical VITAMIN Branch ORAL) multivit-mi 2020-0 Yes Take by Un husam n/ferrous 3-23 mouth. ity of fumarate 14:12: [place] (MULTI 20 Medical VITAMIN Branch ORAL) multivit-mi 2020-0 Yes Take by Un husam n/ferrous 3-23 mouth. ity of fumarate 14:12: [place] (MULTI 20 Medical VITAMIN Branch ORAL) multivit-mi 2020-0 Yes Take by Un uhsam n/ferrous 3-23 mouth. ity of fumarate 14:12: [place] (MULTI 20 Medical VITAMIN Branch ORAL) multivit-mi 2020-0 Yes Take by Un husam n/ferrous 3-23 mouth. ity of fumarate 14:12: [place] (MULTI 20 Medical VITAMIN Branch ORAL) multivit-mi 2020-0 Yes Take by Un husam n/ferrous 3-23 mouth. ity of fumarate 14:12: [place] (MULTI 20 Medical VITAMIN Branch ORAL) multivit-mi 2020-0 Yes Take by Un husam n/ferrous 3-23 mouth. ity of fumarate 14:12: [place] (MULTI 20 Medical VITAMIN Branch ORAL) multivit-mi 2020-0 Yes Take by Un husam n/ferrous 3-23 mouth. ity of fumarate 14:12: [place] (MULTI 20 Medical VITAMIN Branch ORAL) multivit-mi 2020-0 Yes Take by Un husam n/ferrous 3-23 mouth. ity of fumarate 14:12: [place] (MULTI 20 Medical VITAMIN Branch ORAL) multivit-mi 2020-0 Yes Take by Un husam n/ferrous 3-23 mouth. ity of fumarate 14:12: [place] (MULTI 20 Medical VITAMIN Branch ORAL) multivit-mi 2020-0 Yes Take by Un husam n/ferrous 3-23 mouth. ity of fumarate 14:12: [place] (MULTI 20 Medical VITAMIN Branch ORAL) multivit-mi 2020-0 Yes Take by Un husam n/ferrous 3-23 mouth. ity of fumarate 14:12: [place] (MULTI 20 Medical VITAMIN Branch ORAL) multivit-mi 2020-0 Yes Take by Un husam n/ferrous 3-23 mouth. ity of fumarate 14:12: [place] (MULTI 20 Medical VITAMIN Branch ORAL) multivit-mi 2020-0 Yes Take by Un husam n/ferrous 3-23 mouth. ity of fumarate 14:12: [place] (MULTI 20 Medical VITAMIN Branch ORAL) multivit-mi 2020-0 Yes Take by Un husam n/ferrous 3-23 mouth. ity of fumarate 14:12: [place] (MULTI 20 Medical VITAMIN Branch ORAL) multivit-mi 2020-0 Yes Take by Un husam n/ferrous 3-23 mouth. ity of fumarate 14:12: [place] (MULTI 20 Medical VITAMIN Branch ORAL) multivit-mi 2020-0 Yes Take by Un husam n/ferrous 3-23 mouth. ity of fumarate 14:12: [place] (MULTI 20 Medical VITAMIN Branch ORAL) multivit-mi 2020-0 Yes Take by Un husam n/ferrous 3-23 mouth. ity of fumarate 14:12: [place] (MULTI 20 Medical VITAMIN Branch ORAL) multivit-mi 2020-0 Yes Take by Un husam n/ferrous 3-23 mouth. ity of fumarate 14:12: [place] (MULTI 20 Medical VITAMIN Branch ORAL) multivit-mi 2020-0 Yes Take by Un husam n/ferrous 3-23 mouth. ity of fumarate 14:12: [place] (MULTI 20 Medical VITAMIN Branch ORAL) multivit-mi 2020-0 Yes Take by Un husam n/ferrous 3-23 mouth. ity of fumarate 14:12: [place] (MULTI 20 Medical VITAMIN Branch ORAL) multivit-mi 2020-0 Yes Take by Un husam n/ferrous 3-23 mouth. ity of fumarate 14:12: [place] (MULTI 20 Medical VITAMIN Branch ORAL) multivit-mi 2020-0 Yes Take by Un husam n/ferrous 3-23 mouth. ity of fumarate 14:12: [place] (MULTI 20 Medical VITAMIN Branch ORAL) multivit-mi 2020-0 Yes Take by Un husam n/ferrous 3-23 mouth. ity of fumarate 14:12: [place] (MULTI 20 Medical VITAMIN Branch ORAL) acetaminoph 2020-0 Yes [id number] 1{capsu Take 1 Univers en-caff-but 3-23 le} capsule by it y of albital 00:00: mouth [place] (ESGIC) per 00 every 6 Medic al capsule (six) Branch hours as needed (migraine headache). proCHLORper 2020-0 Yes [id number] 10mg Take 1 [facility] azine 3-23 tablet by ity of (COMPAZINE) 00:00: mouth [place] 10 mg 00 every 6 Medical tablet (six) Branch hours as needed (migraine headache). proCHLORper 2020-0 Yes [id number] 10mg Take 1 [facility] azine 3-23 tablet by ity of (COMPAZINE) 00:00: mouth [place] 10 mg 00 every 6 Medical tablet (six) Branch hours as needed (migraine headache). proCHLORper 2020-0 Yes [id number] 10mg Take 1 [facility] azine 3-23 tablet by ity of (COMPAZINE) 00:00: mouth [place] 10 mg 00 every 6 Medical tablet (six) Branch hours as needed (migraine headache). proCHLORper 2020-0 Yes [id number] 10mg Take 1 [facility] azine 3-23 tablet by ity of (COMPAZINE) 00:00: mouth [place] 10 mg 00 every 6 Medical tablet (six) Branch hours as needed (migraine headache). proCHLORper 2020-0 Yes [id number] 10mg Take 1 [facility] azine 3-23 tablet by ity of (COMPAZINE) 00:00: mouth [place] 10 mg 00 every 6 Medical tablet (six) Branch hours as needed (migraine headache). proCHLORper 2020-0 Yes [id number] 10mg Take 1 [facility] azine 3-23 tablet by ity of (COMPAZINE) 00:00: mouth [place] 10 mg 00 every 6 Medical tablet (six) Branch hours as needed (migraine headache). proCHLORper 2020-0 Yes [id number] 10mg Take 1 [facility] azine 3-23 tablet by ity of (COMPAZINE) 00:00: mouth [place] 10 mg 00 every 6 Medical tablet (six) Branch hours as needed (migraine headache). acetaminoph 2020-0 Yes [id number] 1{capsu Take 1 Univers en-caff-but 3-23 le} capsule by it y of albital 00:00: mouth [place] (ESGIC) per 00 every 6 Medic al capsule (six) Branch hours as needed (migraine headache). proCHLORper 2020-0 Yes [id number] 10mg Take 1 [facility] azine 3-23 tablet by ity of (COMPAZINE) 00:00: mouth [place] 10 mg 00 every 6 Medical tablet (six) Branch hours as needed (migraine headache). acetaminoph 2020-0 Yes [id number] 1{capsu Take 1 Univers en-caff-but 3-23 le} capsule by it y of albital 00:00: mouth [place] (ESGIC) per 00 every 6 Medic al capsule (six) Branch hours as needed (migraine headache). proCHLORper 2020-0 Yes [id number] 10mg Take 1 [facility] azine 3-23 tablet by ity of (COMPAZINE) 00:00: mouth [place] 10 mg 00 every 6 Medical tablet (six) Branch hours as needed (migraine headache). acetaminoph 2020-0 Yes [id number] 1{capsu Take 1 Univers en-caff-but 3-23 le} capsule by it y of albital 00:00: mouth [place] (ESGIC) per 00 every 6 Medic al capsule (six) Branch hours as needed (migraine headache). proCHLORper 2020-0 Yes [id number] 10mg Take 1 [facility] azine 3-23 tablet by ity of (COMPAZINE) 00:00: mouth [place] 10 mg 00 every 6 Medical tablet (six) Branch hours as needed (migraine headache). acetaminoph 2020-0 Yes [id number] 1{capsu Take 1 [facility] en-caff-but 3-23 le} capsule by it y of albital 00:00: mouth [place] (ESGIC) per 00 every 6 Medic al capsule (six) Branch hours as needed (migraine headache). proCHLORper 2020-0 Yes [id number] 10mg Take 1 [facility] azine 3-23 tablet by ity of (COMPAZINE) 00:00: mouth [place] 10 mg 00 every 6 Medical tablet (six) Branch hours as needed (migraine headache). acetaminoph 2020-0 Yes [id number] 1{capsu Take 1 Univers en-caff-but 3-23 le} capsule by it y of albital 00:00: mouth [place] (ESGIC) per 00 every 6 Medic al capsule (six) Branch hours as needed (migraine headache). proCHLORper 2020-0 Yes [id number] 10mg Take 1 [facility] azine 3-23 tablet by ity of (COMPAZINE) 00:00: mouth [place] 10 mg 00 every 6 Medical tablet (six) Branch hours as needed (migraine headache). acetaminoph 2020-0 Yes [id number] 1{capsu Take 1 [facility] en-caff-but 3-23 le} capsule by it y of albital 00:00: mouth [place] (ESGIC) per 00 every 6 Medic al capsule (six) Branch hours as needed (migraine headache). proCHLORper 2020-0 Yes [id number] 10mg Take 1 [facility] azine 3-23 tablet by ity of (COMPAZINE) 00:00: mouth [place] 10 mg 00 every 6 Medical tablet (six) Branch hours as needed (migraine headache). acetaminoph 2020-0 Yes [id number] 1{capsu Take 1 [facility] en-caff-but 3-23 le} capsule by it y of albital 00:00: mouth [place] (ESGIC) per 00 every 6 Medic al capsule (six) Branch hours as needed (migraine headache). proCHLORper 2020-0 Yes [id number] 10mg Take 1 [facility] azine 3-23 tablet by ity of (COMPAZINE) 00:00: mouth [place] 10 mg 00 every 6 Medical tablet (six) Branch hours as needed (migraine headache). acetaminoph 2020-0 Yes [id number] 1{capsu Take 1 [facility] en-caff-but 3-23 le} capsule by it y of albital 00:00: mouth [place] (ESGIC) per 00 every 6 Medic al capsule (six) Branch hours as needed (migraine headache). proCHLORper 2020-0 Yes [id number] 10mg Take 1 [facility] azine 3-23 tablet by ity of (COMPAZINE) 00:00: mouth [place] 10 mg 00 every 6 Medical tablet (six) Branch hours as needed (migraine headache). acetaminoph 2020-0 Yes [id number] 1{capsu Take 1 [facility] en-caff-but 3-23 le} capsule by it y of albital 00:00: mouth [place] (ESGIC) per 00 every 6 Medic al capsule (six) Branch hours as needed (migraine headache). proCHLORper 2020-0 Yes [id number] 10mg Take 1 [facility] azine 3-23 tablet by ity of (COMPAZINE) 00:00: mouth [place] 10 mg 00 every 6 Medical tablet (six) Branch hours as needed (migraine headache). acetaminoph 2020-0 Yes [id number] 1{capsu Take 1 [facility] en-caff-but 3-23 le} capsule by it y of albital 00:00: mouth [place] (ESGIC) per 00 every 6 Medic al capsule (six) Branch hours as needed (migraine headache). proCHLORper 2020-0 Yes [id number] 10mg Take 1 Univers azine 3-23 tablet by ity of (COMPAZINE) 00:00: mouth [place] 10 mg 00 every 6 Medical tablet (six) Branch hours as needed (migraine headache). acetaminoph 2020-0 Yes [id number] 1{capsu Take 1 [facility] en-caff-but 3-23 le} capsule by it y of albital 00:00: mouth [place] (ESGIC) per 00 every 6 Medic al capsule (six) Branch hours as needed (migraine headache). proCHLORper 2020-0 Yes [id number] 10mg Take 1 [facility] azine 3-23 tablet by ity of (COMPAZINE) 00:00: mouth [place] 10 mg 00 every 6 Medical tablet (six) Branch hours as needed (migraine headache). acetaminoph 2020-0 Yes [id number] 1{capsu Take 1 [facility] en-caff-but 3-23 le} capsule by it y of albital 00:00: mouth [place] (ESGIC) per 00 every 6 Medic al capsule (six) Branch hours as needed (migraine headache). proCHLORper 2020-0 Yes [id number] 10mg Take 1 [facility] azine 3-23 tablet by ity of (COMPAZINE) 00:00: mouth [place] 10 mg 00 every 6 Medical tablet (six) Branch hours as needed (migraine headache). acetaminoph 2020-0 Yes [id number] 1{capsu Take 1 [facility] en-caff-but 3-23 le} capsule by it y of albital 00:00: mouth [place] (ESGIC) per 00 every 6 Medic al capsule (six) Branch hours as needed (migraine headache). proCHLORper 2020-0 Yes [id number] 10mg Take 1 [facility] azine 3-23 tablet by ity of (COMPAZINE) 00:00: mouth [place] 10 mg 00 every 6 Medical tablet (six) Branch hours as needed (migraine headache). acetaminoph 2020-0 Yes [id number] 1{capsu Take 1 [facility] en-caff-but 3-23 le} capsule by it y of albital 00:00: mouth [place] (ESGIC) per 00 every 6 Medic al capsule (six) Branch hours as needed (migraine headache). proCHLORper 2020-0 Yes [id number] 10mg Take 1 [facility] azine 3-23 tablet by ity of (COMPAZINE) 00:00: mouth [place] 10 mg 00 every 6 Medical tablet (six) Branch hours as needed (migraine headache). acetaminoph 2020-0 Yes [id number] 1{capsu Take 1 [facility] en-caff-but 3-23 le} capsule by it y of albital 00:00: mouth [place] (ESGIC) per 00 every 6 Medic al capsule (six) Branch hours as needed (migraine headache). proCHLORper 2020-0 Yes [id number] 10mg Take 1 [facility] azine 3-23 tablet by ity of (COMPAZINE) 00:00: mouth [place] 10 mg 00 every 6 Medical tablet (six) Branch hours as needed (migraine headache). acetaminoph 2020-0 Yes [id number] 1{capsu Take 1 [facility] en-caff-but 3-23 le} capsule by it y of albital 00:00: mouth [place] (ESGIC) per 00 every 6 Medic al capsule (six) Branch hours as needed (migraine headache). proCHLORper 2020-0 Yes [id number] 10mg Take 1 [facility] azine 3-23 tablet by ity of (COMPAZINE) 00:00: mouth [place] 10 mg 00 every 6 Medical tablet (six) Branch hours as needed (migraine headache). acetaminoph 2020-0 Yes [id number] 1{capsu Take 1 [facility] en-caff-but 3-23 le} capsule by it y of albital 00:00: mouth [place] (ESGIC) per 00 every 6 Medic al capsule (six) Branch hours as needed (migraine headache). proCHLORper 2020-0 Yes [id number] 10mg Take 1 [facility] azine 3-23 tablet by ity of (COMPAZINE) 00:00: mouth [place] 10 mg 00 every 6 Medical tablet (six) Branch hours as needed (migraine headache). acetaminoph 2020-0 Yes [id number] 1{capsu Take 1 [facility] en-caff-but 3-23 le} capsule by it y of albital 00:00: mouth [place] (ESGIC) per 00 every 6 Medic al capsule (six) Branch hours as needed (migraine headache). proCHLORper 2020-0 Yes [id number] 10mg Take 1 [facility] azine 3-23 tablet by ity of (COMPAZINE) 00:00: mouth [place] 10 mg 00 every 6 Medical tablet (six) Branch hours as needed (migraine headache). acetaminoph 2020-0 Yes [id number] 1{capsu Take 1 [facility] en-caff-but 3-23 le} capsule by it y of albital 00:00: mouth [place] (ESGIC) per 00 every 6 Medic al capsule (six) Branch hours as needed (migraine headache). proCHLORper 2020-0 Yes [id number] 10mg Take 1 [facility] azine 3-23 tablet by ity of (COMPAZINE) 00:00: mouth [place] 10 mg 00 every 6 Medical tablet (six) Branch hours as needed (migraine headache). acetaminoph 2020-0 Yes [id number] 1{capsu Take 1 [facility] en-caff-but 3-23 le} capsule by it y of albital 00:00: mouth [place] (ESGIC) per 00 every 6 Medic al capsule (six) Branch hours as needed (migraine headache). proCHLORper 2020-0 Yes [id number] 10mg Take 1 [facility] azine 3-23 tablet by ity of (COMPAZINE) 00:00: mouth [place] 10 mg 00 every 6 Medical tablet (six) Branch hours as needed (migraine headache). acetaminoph 2020-0 Yes [id number] 1{capsu Take 1 [facility] en-caff-but 3-23 le} capsule by it y of albital 00:00: mouth [place] (ESGIC) per 00 every 6 Medic al capsule (six) Branch hours as needed (migraine headache). proCHLORper 2020-0 Yes [id number] 10mg Take 1 [facility] azine 3-23 tablet by ity of (COMPAZINE) 00:00: mouth [place] 10 mg 00 every 6 Medical tablet (six) Branch hours as needed (migraine headache). acetaminoph 2020-0 Yes [id number] 1{capsu Take 1 [facility] en-caff-but 3-23 le} capsule by it y of albital 00:00: mouth [place] (ESGIC) per 00 every 6 Medic al capsule (six) Branch hours as needed (migraine headache). proCHLORper 2020-0 Yes [id number] 10mg Take 1 [facility] azine 3-23 tablet by ity of (COMPAZINE) 00:00: mouth [place] 10 mg 00 every 6 Medical tablet (six) Branch hours as needed (migraine headache). acetaminoph 2020-0 Yes [id number] 1{capsu Take 1 [facility] en-caff-but 3-23 le} capsule by it y of albital 00:00: mouth [place] (ESGIC) per 00 every 6 Medic al capsule (six) Branch hours as needed (migraine headache). proCHLORper 2020-0 Yes [id number] 10mg Take 1 [facility] azine 3-23 tablet by ity of (COMPAZINE) 00:00: mouth [place] 10 mg 00 every 6 Medical tablet (six) Branch hours as needed (migraine headache). acetaminoph 2020-0 Yes [id number] 1{capsu Take 1 [facility] en-caff-but 3-23 le} capsule by it y of albital 00:00: mouth [place] (ESGIC) per 00 every 6 Medic al capsule (six) Branch hours as needed (migraine headache). proCHLORper 2020-0 Yes [id number] 10mg Take 1 [facility] azine 3-23 tablet by ity of (COMPAZINE) 00:00: mouth [place] 10 mg 00 every 6 Medical tablet (six) Branch hours as needed (migraine headache). acetaminoph 2020-0 Yes [id number] 1{capsu Take 1 [facility] en-caff-but 3-23 le} capsule by it y of albital 00:00: mouth [place] (ESGIC) per 00 every 6 Medic al capsule (six) Branch hours as needed (migraine headache). proCHLORper 2020-0 Yes [id number] 10mg Take 1 [facility] azine 3-23 tablet by ity of (COMPAZINE) 00:00: mouth [place] 10 mg 00 every 6 Medical tablet (six) Branch hours as needed (migraine headache). acetaminoph 2020-0 Yes [id number] 1{capsu Take 1 [facility] en-caff-but 3-23 le} capsule by it y of albital 00:00: mouth [place] (ESGIC) per 00 every 6 Medic al capsule (six) Branch hours as needed (migraine headache). proCHLORper 2020-0 Yes [id number] 10mg Take 1 [facility] azine 3-23 tablet by ity of (COMPAZINE) 00:00: mouth [place] 10 mg 00 every 6 Medical tablet (six) Branch hours as needed (migraine headache). acetaminoph 2020-0 Yes [id number] 1{capsu Take 1 [facility] en-caff-but 3-23 le} capsule by it y of albital 00:00: mouth [place] (ESGIC) per 00 every 6 Medic al capsule (six) Branch hours as needed (migraine headache). proCHLORper 2020-0 Yes [id number] 10mg Take 1 [facility] azine 3-23 tablet by ity of (COMPAZINE) 00:00: mouth [place] 10 mg 00 every 6 Medical tablet (six) Branch hours as needed (migraine headache). acetaminoph 2020-0 Yes [id number] 1{capsu Take 1 [facility] en-caff-but 3-23 le} capsule by it y of albital 00:00: mouth [place] (ESGIC) per 00 every 6 Medic al capsule (six) Branch hours as needed (migraine headache). proCHLORper 2020-0 Yes [id number] 10mg Take 1 [facility] azine 3-23 tablet by ity of (COMPAZINE) 00:00: mouth [place] 10 mg 00 every 6 Medical tablet (six) Branch hours as needed (migraine headache). acetaminoph 2020-0 Yes [id number] 1{capsu Take 1 [facility] en-caff-but 3-23 le} capsule by it y of albital 00:00: mouth [place] (ESGIC) per 00 every 6 Medic al capsule (six) Branch hours as needed (migraine headache). proCHLORper 2020-0 Yes [id number] 10mg Take 1 [facility] azine 3-23 tablet by ity of (COMPAZINE) 00:00: mouth [place] 10 mg 00 every 6 Medical tablet (six) Branch hours as needed (migraine headache). acetaminoph 2020-0 Yes [id number] 1{capsu Take 1 [facility] en-caff-but 3-23 le} capsule by it y of albital 00:00: mouth [place] (ESGIC) per 00 every 6 Medic al capsule (six) Branch hours as needed (migraine headache). proCHLORper 2020-0 Yes [id number] 10mg Take 1 [facility] azine 3-23 tablet by ity of (COMPAZINE) 00:00: mouth [place] 10 mg 00 every 6 Medical tablet (six) Branch hours as needed (migraine headache). acetaminoph 2020-0 Yes [id number] 1{capsu Take 1 [facility] en-caff-but 3-23 le} capsule by it y of albital 00:00: mouth [place] (ESGIC) per 00 every 6 Medic al capsule (six) Branch hours as needed (migraine headache). proCHLORper 2020-0 Yes [id number] 10mg Take 1 [facility] azine 3-23 tablet by ity of (COMPAZINE) 00:00: mouth [place] 10 mg 00 every 6 Medical tablet (six) Branch hours as needed (migraine headache). acetaminoph 2020-0 Yes [id number] 1{capsu Take 1 [facility] en-caff-but 3-23 le} capsule by it y of albital 00:00: mouth [place] (ESGIC) per 00 every 6 Medic al capsule (six) Branch hours as needed (migraine headache). proCHLORper 2020-0 Yes [id number] 10mg Take 1 [facility] azine 3-23 tablet by ity of (COMPAZINE) 00:00: mouth [place] 10 mg 00 every 6 Medical tablet (six) Branch hours as needed (migraine headache). proCHLORper 2020-0 202- No [id number] 10mg Take 1 [facility] azine 3-23 03-01 tablet by ity of (COMPAZINE) 00:00: 00:00 mouth [place] 10 mg 00 :00 every 6 Medical tablet (six) Branch hours as needed (migraine headache). proCHLORper 2020-0 2020- No [id number] 10mg Take 1 [facility] azine 3-23 03-01 tablet by ity of (COMPAZINE) 00:00: 00:00 mouth [place] 10 mg 00 :00 every 6 Medical tablet (six) Branch hours as needed (migraine headache). acetaminoph 2019-0 2020- No [id number] 1{capsu Take 1 [facility] en-caff-but 3-23 10-12 le} capsule by i ty of albital 00:00: 00:00 mouth [place] (ESGIC) per 00 :00 every 6 Medic al capsule (six) Branch hours as needed (migraine headache). multivit-mi 0 Yes Take by Un husam n/ferrous 2-27 mouth. ity of fumarate 18:59: [place] (MULTI 53 Medical VITAMIN Branch ORAL) multivit-mi 2020-0 Yes Take by Un husam n/ferrous 2-27 mouth. ity of fumarate 18:59: [place] ([facility] 53 Medical VITAMIN Branch ORAL) multivit-mi 2020-0 Yes Take by Un husam n/ferrous 2-27 mouth. ity of fumarate 18:59: [place] ([facility] 53 Medical VITAMIN Branch ORAL) multivit-mi 2020-0 Yes Take by Un husam n/ferrous 2-27 mouth. ity of fumarate 18:59: [place] ([facility] 53 Medical VITAMIN Branch ORAL) multivit-mi 2020-0 Yes Take by Un husam n/ferrous 2-27 mouth. ity of fumarate 18:59: [place] ([facility] 53 Medical VITAMIN Branch ORAL) proMETHazin 2020-0 Yes [id number] 25mg Take 1 [facility] e 25 mg 2-27 tablet by ity of tablet 00:00: mouth [place] 00 every 4 Medical (four) Branch hours as needed for Nausea and Vomiting (N/V). proMETHazin 2020-0 Yes [id number] 25mg Take 1 [facility] e 25 mg 2-27 tablet by ity of tablet 00:00: mouth [place] 00 every 4 Medical (four) Branch hours as needed for Nausea and Vomiting (N/V). proMETHazin 2020-0 Yes [id number] 25mg Take 1 [facility] e 25 mg 2-27 tablet by ity of tablet 00:00: mouth [place] 00 every 4 Medical (four) Branch hours as needed for Nausea and Vomiting (N/V). proMETHazin 2020-0 Yes [id number] 25mg Take 1 [facility] e 25 mg 2-27 tablet by ity of tablet 00:00: mouth [place] 00 every 4 Medical (four) Branch hours as needed for Nausea and Vomiting (N/V). proMETHazin 2020-0 Yes [id number] 25mg Take 1 [facility] e 25 mg 2-27 tablet by ity of tablet 00:00: mouth [place] 00 every 4 Medical (four) Branch hours as needed for Nausea and Vomiting (N/V). proMETHazin 2020-0 Yes [id number] 25mg Take 1 [facility] e 25 mg 2-27 tablet by ity of tablet 00:00: mouth [place] 00 every 4 Medical (four) Branch hours as needed for Nausea and Vomiting (N/V). proMETHazin 2020-0 Yes [id number] 25mg Take 1 [facility] e 25 mg 2-27 tablet by ity of tablet 00:00: mouth [place] 00 every 4 Medical (four) Branch hours as needed for Nausea and Vomiting (N/V). proMETHazin 2020-0 Yes [id number] 25mg Take 1 [facility] e 25 mg 2-27 tablet by ity of tablet 00:00: mouth [place] 00 every 4 Medical (four) Branch hours as needed for Nausea and Vomiting (N/V). proMETHazin 2020-0 Yes [id number] 25mg Take 1 [facility] e 25 mg 2-27 tablet by ity of tablet 00:00: mouth [place] 00 every 4 Medical (four) Branch hours as needed for Nausea and Vomiting (N/V). proMETHazin 2020-0 Yes [id number] 25mg Take 1 [facility] e 25 mg 2-27 tablet by ity of tablet 00:00: mouth [place] 00 every 4 Medical (four) Branch hours as needed for Nausea and Vomiting (N/V). proMETHazin 2020-0 Yes [id number] 25mg Take 1 [facility] e 25 mg 2-27 tablet by ity of tablet 00:00: mouth [place] 00 every 4 Medical (four) Branch hours as needed for Nausea and Vomiting (N/V). proMETHazin 2020-0 Yes [id number] 25mg Take 1 [facility] e 25 mg 2-27 tablet by ity of tablet 00:00: mouth [place] 00 every 4 Medical (four) Branch hours as needed for Nausea and Vomiting (N/V). proMETHazin 2020-0 Yes [id number] 25mg Take 1 [facility] e 25 mg 2-27 tablet by ity of tablet 00:00: mouth [place] 00 every 4 Medical (four) Branch hours as needed for Nausea and Vomiting (N/V). proMETHazin 2020-0 Yes [id number] 25mg Take 1 [facility] e 25 mg 2-27 tablet by ity of tablet 00:00: mouth [place] 00 every 4 Medical (four) Branch hours as needed for Nausea and Vomiting (N/V). proMETHazin 2020-0 Yes [id number] 25mg Take 1 [facility] e 25 mg 2-27 tablet by ity of tablet 00:00: mouth [place] 00 every 4 Medical (four) Branch hours as needed for Nausea and Vomiting (N/V). proMETHazin 2020-0 Yes [id number] 25mg Take 1 [facility] e 25 mg 2-27 tablet by ity of tablet 00:00: mouth [place] 00 every 4 Medical (four) Branch hours as needed for Nausea and Vomiting (N/V). proMETHazin 2020-0 Yes [id number] 25mg Take 1 [facility] e 25 mg 2-27 tablet by ity of tablet 00:00: mouth [place] 00 every 4 Medical (four) Branch hours as needed for Nausea and Vomiting (N/V). proMETHazin 2020-0 Yes [id number] 25mg Take 1 [facility] e 25 mg 2-27 tablet by ity of tablet 00:00: mouth [place] 00 every 4 Medical (four) Branch hours as needed for Nausea and Vomiting (N/V). proMETHazin 2020-0 Yes [id number] 25mg Take 1 [facility] e 25 mg 2-27 tablet by ity of tablet 00:00: mouth [place] 00 every 4 Medical (four) Branch hours as needed for Nausea and Vomiting (N/V). proMETHazin 2020-0 Yes [id number] 25mg Take 1 [facility] e 25 mg 2-27 tablet by ity of tablet 00:00: mouth [place] 00 every 4 Medical (four) Branch hours as needed for Nausea and Vomiting (N/V). proMETHazin 2020-0 Yes [id number] 25mg Take 1 [facility] e 25 mg 2-27 tablet by ity of tablet 00:00: mouth [place] 00 every 4 Medical (four) Branch hours as needed for Nausea and Vomiting (N/V). proMETHazin 2020-0 Yes [id number] 25mg Take 1 [facility] e 25 mg 2-27 tablet by ity of tablet 00:00: mouth [place] 00 every 4 Medical (four) Branch hours as needed for Nausea and Vomiting (N/V). proMETHazin 2020-0 Yes [id number] 25mg Take 1 [facility] e 25 mg 2-27 tablet by ity of tablet 00:00: mouth [place] 00 every 4 Medical (four) Branch hours as needed for Nausea and Vomiting (N/V). proMETHazin 2020-0 Yes [id number] 25mg Take 1 [facility] e 25 mg 2-27 tablet by ity of tablet 00:00: mouth [place] 00 every 4 Medical (four) Branch hours as needed for Nausea and Vomiting (N/V). proMETHazin 2020-0 Yes [id number] 25mg Take 1 [facility] e 25 mg 2-27 tablet by ity of tablet 00:00: mouth [place] 00 every 4 Medical (four) Branch hours as needed for Nausea and Vomiting (N/V). proMETHazin 2020-0 Yes [id number] 25mg Take 1 [facility] e 25 mg 2-27 tablet by ity of tablet 00:00: mouth [place] 00 every 4 Medical (four) Branch hours as needed for Nausea and Vomiting (N/V). proMETHazin 2020-0 Yes [id number] 25mg Take 1 [facility] e 25 mg 2-27 tablet by ity of tablet 00:00: mouth [place] 00 every 4 Medical (four) Branch hours as needed for Nausea and Vomiting (N/V). proMETHazin 2020-0 Yes [id number] 25mg Take 1 [facility] e 25 mg 2-27 tablet by ity of tablet 00:00: mouth [place] 00 every 4 Medical (four) Branch hours as needed for Nausea and Vomiting (N/V). proMETHazin 2020-0 Yes [id number] 25mg Take 1 [facility] e 25 mg 2-27 tablet by ity of tablet 00:00: mouth [place] 00 every 4 Medical (four) Branch hours as needed for Nausea and Vomiting (N/V). proMETHazin 2020-0 Yes [id number] 25mg Take 1 [facility] e 25 mg 2-27 tablet by ity of tablet 00:00: mouth [place] 00 every 4 Medical (four) Branch hours as needed for Nausea and Vomiting (N/V). proMETHazin 2020-0 Yes [id number] 25mg Take 1 [facility] e 25 mg 2-27 tablet by ity of tablet 00:00: mouth [place] 00 every 4 Medical (four) Branch hours as needed for Nausea and Vomiting (N/V). proMETHazin 2020-0 Yes [id number] 25mg Take 1 [facility] e 25 mg 2-27 tablet by ity of tablet 00:00: mouth [place] 00 every 4 Medical (four) Branch hours as needed for Nausea and Vomiting (N/V). proMETHazin 2020-0 Yes [id number] 25mg Take 1 [facility] e 25 mg 2-27 tablet by ity of tablet 00:00: mouth [place] 00 every 4 Medical (four) Branch hours as needed for Nausea and Vomiting (N/V). proMETHazin 2020-0 Yes [id number] 25mg Take 1 [facility] e 25 mg 2-27 tablet by ity of tablet 00:00: mouth [place] 00 every 4 Medical (four) Branch hours as needed for Nausea and Vomiting (N/V). proMETHazin 2020-0 Yes [id number] 25mg Take 1 [facility] e 25 mg 2-27 tablet by ity of tablet 00:00: mouth [place] 00 every 4 Medical (four) Branch hours as needed for Nausea and Vomiting (N/V). proMETHazin 2020-0 Yes [id number] 25mg Take 1 [facility] e 25 mg 2-27 tablet by ity of tablet 00:00: mouth [place] 00 every 4 Medical (four) Branch hours as needed for Nausea and Vomiting (N/V). proMETHazin 2020-0 Yes [id number] 25mg Take 1 [facility] e 25 mg 2-27 tablet by ity of tablet 00:00: mouth [place] 00 every 4 Medical (four) Branch hours as needed for Nausea and Vomiting (N/V). proMETHazin 2020-0 Yes [id number] 25mg Take 1 [facility] e 25 mg 2-27 tablet by ity of tablet 00:00: mouth [place] 00 every 4 Medical (four) Branch hours as needed for Nausea and Vomiting (N/V). proMETHazin 2020-0 Yes [id number] 25mg Take 1 [facility] e 25 mg 2-27 tablet by ity of tablet 00:00: mouth [place] 00 every 4 Medical (four) Branch hours as needed for Nausea and Vomiting (N/V). proMETHazin 2020-0 Yes [id number] 25mg Take 1 [facility] e 25 mg 2-27 tablet by ity of tablet 00:00: mouth [place] 00 every 4 Medical (four) Branch hours as needed for Nausea and Vomiting (N/V). proMETHazin 2020-0 Yes [id number] 25mg Take 1 [facility] e 25 mg 2-27 tablet by ity of tablet 00:00: mouth [place] 00 every 4 Medical (four) Branch hours as needed for Nausea and Vomiting (N/V). proMETHazin 2020-0 Yes [id number] 25mg Take 1 [facility] e 25 mg 2-27 tablet by ity of tablet 00:00: mouth [place] 00 every 4 Medical (four) Branch hours as needed for Nausea and Vomiting (N/V). proMETHazin 2020-0 Yes [id number] 25mg Take 1 [facility] e 25 mg 2-27 tablet by ity of tablet 00:00: mouth [place] 00 every 4 Medical (four) Branch hours as needed for Nausea and Vomiting (N/V). proMETHazin 2020-0 Yes [id number] 25mg Take 1 [facility] e 25 mg 2-27 tablet by ity of tablet 00:00: mouth [place] 00 every 4 Medical (four) Branch hours as needed for Nausea and Vomiting (N/V). proMETHazin No [id number] 25mg Take 1 Univers e 25 mg 2-27 03-01 tablet by ity of tablet 00:00: 00:00 mouth [place] 00 :00 every 4 Medical (four) Branch hours as needed for Nausea and Vomiting (N/V). proMETHazin No [id number] 25mg Take 1 Univers e 25 mg 2-27 03- tablet by ity of tablet 00:00: 00:00 mouth [place] 00 :00 every 4 Medical (four) Branch hours as needed for Nausea and Vomiting (N/V). cefTRIAXone No 1000mg 1,000 mg, Univers (ROCEPHIN) 09-16 IV ity of 1,000 mg in 14:30: 14:05 [facility], [place] NaCl 0.9% 00 :00 ONCE, 1 Medical (NS) 50 mL dose, [facility] MINI-BAG 09/16/19 at 0830, 50 mL
Reas on for Anti-Infec tive: Empiric Therapy for Suspected Infection< br>Empiric Therapy Site: Urine
D uration of therapy: 72 hours cephALEXin No [id number] 500mg Take 1 [facility] (KEFLEX) 09-16 [id number] capsule by it y of 500 mg 00:00: 05:59 mouth 3 [place] capsule 00 :00 (three) Medical times Branch daily for 7 days. cephALEXin 2019- No [id number] 500mg Take 1 [facility] (KEFLEX) 09-16 [id number] capsule by it y of 500 mg 00:00: 05:59 mouth 3 [place] capsule 00 :00 (three) Medical times Branch daily for 7 days. cephALEXin 2019- No [id number] 500mg Take 1 [facility] (KEFLEX) 09-16 [id number] capsule by it y of 500 mg 00:00: 05:59 mouth 3 [place] capsule 00 :00 (three) Medical times Branch daily for 7 days. proMETHazin Yes [id number] 25mg Take 1 [facility] e 25 mg 1-10 tablet by ity of tablet 00:00: mouth [place] 00 every 6 Medical (six) Branch hours as needed for Nausea and Vomiting (N/V). proMETHazin 2020-0 Yes [id number] 25mg Take 1 [facility] e 25 mg 1-10 tablet by ity of tablet 00:00: mouth [place] 00 every 6 Medical (six) Branch hours as needed for Nausea and Vomiting (N/V). proMETHazin 2020-0 Yes [id number] 25mg Take 1 [facility] e 25 mg 1-10 tablet by ity of tablet 00:00: mouth [place] 00 every 6 Medical (six) Branch hours as needed for Nausea and Vomiting (N/V). proMETHazin 2020-0 Yes [id number] 25mg Take 1 [facility] e 25 mg 1-10 tablet by ity of tablet 00:00: mouth [place] 00 every 6 Medical (six) Branch hours as needed for Nausea and Vomiting (N/V). proMETHazin 2020-0 Yes [id number] 25mg Take 1 [facility] e 25 mg 1-10 tablet by ity of tablet 00:00: mouth [place] 00 every 6 Medical (six) Branch hours as needed for Nausea and Vomiting (N/V). proMETHazin 2020-0 Yes [id number] 25mg Take 1 [facility] e 25 mg 1-10 tablet by ity of tablet 00:00: mouth [place] 00 every 6 Medical (six) Branch hours as needed for Nausea and Vomiting (N/V). proMETHazin 2020-0 Yes [id number] 25mg Take 1 [facility] e 25 mg 1-10 tablet by ity of tablet 00:00: mouth [place] 00 every 6 Medical (six) Branch hours as needed for Nausea and Vomiting (N/V). proMETHazin 2020-0 Yes [id number] 25mg Take 1 [facility] e 25 mg 1-10 tablet by ity of tablet 00:00: mouth [place] 00 every 6 Medical (six) Branch hours as needed for Nausea and Vomiting (N/V). proMETHazin 2020-0 Yes [id number] 25mg Take 1 [facility] e 25 mg 1-10 tablet by ity of tablet 00:00: mouth [place] 00 every 6 Medical (six) Branch hours as needed for Nausea and Vomiting (N/V). proMETHazin 2020-0 Yes [id number] 25mg Take 1 [facility] e 25 mg 1-10 tablet by ity of tablet 00:00: mouth [place] 00 every 6 Medical (six) Branch hours as needed for Nausea and Vomiting (N/V). proMETHazin 2020-0 Yes [id number] 25mg Take 1 [facility] e 25 mg 1-10 tablet by ity of tablet 00:00: mouth [place] 00 every 6 Medical (six) Branch hours as needed for Nausea and Vomiting (N/V). proMETHazin 2020-0 Yes [id number] 25mg Take 1 [facility] e 25 mg 1-10 tablet by ity of tablet 00:00: mouth [place] 00 every 6 Medical (six) Branch hours as needed for Nausea and Vomiting (N/V). proMETHazin 2020-0 Yes [id number] 25mg Take 1 [facility] e 25 mg 1-10 tablet by ity of tablet 00:00: mouth [place] 00 every 6 Medical (six) Branch hours as needed for Nausea and Vomiting (N/V). proMETHazin 2020-0 Yes [id number] 25mg Take 1 [facility] e 25 mg 1-10 tablet by ity of tablet 00:00: mouth [place] 00 every 6 Medical (six) Branch hours as needed for Nausea and Vomiting (N/V). proMETHazin 2020-0 2020- No [id number] 25mg Take 1 [facility] e 25 mg 1-10 02-27 tablet by ity of tablet 00:00: 00:00 mouth [place] 00 :00 every 6 Medical (six) Branch hours as needed for Nausea and Vomiting (N/V). proMETHazin 2020-0 2020- No [id number] 25mg Take 1 Univers e 25 mg 1-10 02-27 tablet by ity of tablet 00:00: 00:00 mouth [place] 00 :00 every 6 Medical (six) Branch hours as needed for Nausea and Vomiting (N/V). azithromyci 2020-0 2020- No [id number] 1000mg Take 2 Univers n 500 mg 1-10 01-11 tablets by ity of tablet 00:00: 05:59 mouth [place] 00 :[place] now for 1 Medical dose. Branch multivit-mi 2020-0 Yes Take by Un husam n/ferrous 1-09 mouth. ity of fumarate 20:39: [place] (MULTI 35 Medical VITAMIN Branch ORAL) multivit-mi 2020-0 Yes Take by Un husam n/ferrous 1-09 mouth. ity of fumarate 20:39: [place] (MULTI 35 Medical VITAMIN Branch ORAL) multivit-mi 2020-0 Yes Take by Un husam n/ferrous 1-09 mouth. ity of fumarate 20:39: [place] (MULTI 35 Medical VITAMIN Branch ORAL) multivit-mi 2020-0 Yes Take by Un husam n/ferrous 1-09 mouth. ity of fumarate 20:39: [place] (MULTI 35 Medical VITAMIN Branch ORAL) multivit-mi 2020-0 Yes Take by Un husam n/ferrous 1-09 mouth. ity of fumarate 20:39: [place] (MULTI 35 Medical VITAMIN Branch ORAL) multivit-mi 2020-0 Yes Take by Un husam n/ferrous 1-09 mouth. ity of fumarate 20:39: [place] (MULTI 35 [facility] VITAMIN Branch ORAL) multivit-mi 2020-0 Yes Take by Un husam n/ferrous 1-09 mouth. ity of fumarate 20:39: [place] (MULTI 35 [facility] VITAMIN Branch ORAL) multivit-mi 2019-0 Yes Take by Un husam n/ferrous 1-09 mouth. ity of fumarate 20:39: [place] (MULTI 35 Medical VITAMIN Branch ORAL) multivit-mi 2020-0 Yes Take by Un husam n/ferrous 1-09 mouth. ity of fumarate 20:39: [place] (MULTI 35 Medical VITAMIN Branch ORAL) multivit-mi 2019-0 Yes Take by Un husam n/ferrous 1-09 mouth. ity of fumarate 20:39: [place] (MULTI 35 Medical VITAMIN Branch ORAL) multivit-mi 2019-0 Yes Take by Un husam n/ferrous 1-09 mouth. ity of fumarate 20:39: [place] (MULTI 35 Medical VITAMIN Branch ORAL) multivit-mi 2020-0 Yes Take by Un husam n/ferrous 1-09 mouth. ity of fumarate 20:39: [place] (MULTI 35 Medical VITAMIN Branch ORAL) multivit-mi 2020-0 Yes Take by Un husam n/ferrous 1-09 mouth. ity of fumarate 20:39: [place] (MULTI 35 Medical VITAMIN Branch ORAL) multivit-mi 2020-0 Yes Take by Un husam n/ferrous 1-09 mouth. ity of fumarate 20:39: [place] (MULTI 35 Medical VITAMIN Branch ORAL) multivit-mi 2020-0 Yes Take by Un husam n/ferrous 1-09 mouth. ity of fumarate 20:39: [place] (MULTI 35 Medical VITAMIN Branch ORAL) ibuprofen 2018-0 Yes 600mg Take 1 Unive rs 600 mg 1-06 tablet by ity of tablet 00:00: mouth [place] 00 every 6 Medical (six) Branch hours as needed for Pain (scale 1-3) or Pain (scale 4-6) (Pain). Take with food or milk. ibuprofen 2018-0 Yes 600mg Take 1 Un[facility] rs 600 mg 1-06 tablet by ity of tablet 00:00: mouth [place] 00 every 6 Medical (six) Branch hours as needed for Pain (scale 1-3) or Pain (scale 4-6) (Pain). Take with food or milk. ibuprofen 2018-0 Yes 600mg Take 1 [facility] rs 600 mg 1-06 tablet by ity of tablet 00:00: mouth [place] 00 every 6 Medical (six) Branch hours as needed for Pain (scale 1-3) or Pain (scale 4-6) (Pain). Take with food or milk. ibuprofen 2018-0 Yes 600mg Take 1 [facility] rs 600 mg 1-06 tablet by ity of tablet 00:00: mouth [place] 00 every 6 Medical (six) Branch hours as needed for Pain (scale 1-3) or Pain (scale 4-6) (Pain). Take with food or milk. ibuprofen 2018-0 Yes 600mg Take 1 [facility] rs 600 mg 1-06 tablet by ity of tablet 00:00: mouth [place] 00 every 6 Medical (six) Branch hours as needed for Pain (scale 1-3) or Pain (scale 4-6) (Pain). Take with food or milk. ibuprofen 2018-0 Yes 600mg Take 1 [facility] rs 600 mg 1-06 tablet by ity of tablet 00:00: mouth [place] 00 every 6 Medical (six) Branch hours as needed for Pain (scale 1-3) or Pain (scale 4-6) (Pain). Take with food or milk. ibuprofen 2018-0 Yes 600mg Take 1 [facility] rs 600 mg 1-06 tablet by ity of tablet 00:00: mouth [place] 00 every 6 Medical (six) Branch hours as needed for Pain (scale 1-3) or Pain (scale 4-6) (Pain). Take with food or milk. ibuprofen 2018-0 Yes 600mg Take 1 [facility] rs 600 mg 1-06 tablet by ity of tablet 00:00: mouth [place] 00 every 6 Medical (six) Branch hours as needed for Pain (scale 1-3) or Pain (scale 4-6) (Pain). Take with food or milk. ibuprofen 2018-0 Yes 600mg Take 1 [facility] rs 600 mg 1-06 tablet by ity of tablet 00:00: mouth [place] 00 every 6 Medical (six) Branch hours as needed for Pain (scale 1-3) or Pain (scale 4-6) (Pain). Take with food or milk. ibuprofen 2018-0 Yes 600mg Take 1 Un[facility] rs 600 mg 1-06 tablet by ity of tablet 00:00: mouth [place] 00 every 6 Medical (six) Branch hours as needed for Pain (scale 1-3) or Pain (scale 4-6) (Pain). Take with food or milk. ibuprofen 2018-0 Yes 600mg Take 1 Un[facility] rs 600 mg 1-06 tablet by ity of tablet 00:00: mouth [place] 00 every 6 Medical (six) Branch hours as needed for Pain (scale 1-3) or Pain (scale 4-6) (Pain). Take with food or milk. ibuprofen 2018-0 Yes 600mg Take 1 Un[facility] rs 600 mg 1-06 tablet by ity of tablet 00:00: mouth [place] 00 every 6 Medical (six) Branch hours as needed for Pain (scale 1-3) or Pain (scale 4-6) (Pain). Take with food or milk. ibuprofen 2018-0 Yes 600mg Take 1 Un[facility] rs 600 mg 1-06 tablet by ity of tablet 00:00: mouth [place] 00 every 6 Medical (six) Branch hours as needed for Pain (scale 1-3) or Pain (scale 4-6) (Pain). Take with food or milk. ibuprofen 2018-0 Yes 600mg Take 1 Un[facility] rs 600 mg 1-06 tablet by ity of tablet 00:00: mouth [place] 00 every 6 Medical (six) Branch hours as needed for Pain (scale 1-3) or Pain (scale 4-6) (Pain). Take with food or milk. ibuprofen 2018-0 Yes 600mg Take 1 Un[facility] rs 600 mg 1-06 tablet by ity of tablet 00:00: mouth [place] 00 every 6 Medical (six) Branch hours as needed for Pain (scale 1-3) or Pain (scale 4-6) (Pain). Take with food or milk. ibuprofen 2018-0 2020- No 600mg Take 1 Univ ers 600 mg 08-31 tablet by ity of tablet 00:00: 00:00 mouth [place] 00 :00 every 6 Medical (six) Branch hours as needed for Pain (scale 1-3) or Pain (scale 4-6) (Pain). Take with food or milk. ibuprofen 2020- No 600mg Take 1 Univ ers 600 mg 08-31 tablet by ity of tablet 00:00: 00:00 mouth [place] 00 :00 every 6 Medical (six) Branch hours as needed for Pain (scale 1-3) or Pain (scale 4-6) (Pain). Take with food or milk. Cephalexin Cephalexin Yes HIND Q12H TAKE 1 [...] ty of 00:00: [place] 00 Physici ans No known No [facility] medications ity [facility] No known No [facility] medications ity [facility] No known No [facility] medications ity [facility] No known No [facility] medications ity [facility] No known No [facility] medications ity [facility] No known No [facility] medications ity [facility] Immunizations Ordered Filled Immunization Date Status Comments [facility] e Immunization Name Name Rho(D) Immune 2020-02-18 Completed [facility] - IM 16:03:00 [place] [facility] Tdap 2020-02-18 Completed [facility] 00:00:00 [place] [facility] Influenza Virus 2019-11-16 Completed [facility] of Vaccine Quad .5 mL 00:00:00 [place] [facility] IM 6+ MO Branch Influenza Virus 2019-11-16 Completed [facility] of Vaccine Quad .5 mL 00:00:00 [place] [facility] IM 6+ MO Branch Influenza Virus 2019-11-16 Completed [facility]it y of Vaccine Quad .5 mL 00:00:00 [place] [facility] IM 6+ MO Branch Influenza Virus 2019-11-16 Completed [facility]it y of Vaccine Quad .5 mL 00:00:00 [place] [facility] IM 6+ MO Branch Influenza Virus 2019-11-16 Completed [facility]it [facility] of Vaccine Quad .5 mL 00:00:00 [place] [facility] IM 6+ MO Branch Influenza Virus 2019-11-16 Completed [facility] of Vaccine Quad .5 mL 00:00:00 [place] [facility] IM 6+ MO Branch Influenza Virus 2019-11-16 Completed [facility] of Vaccine Quad .5 mL 00:00:00 [place] [facility] IM 6+ MO Branch Influenza Virus 2019-11-16 Completed [facility] of Vaccine Quad .5 mL 00:00:00 [place] [facility] IM 6+ MO Branch Influenza Virus 2019-11-16 Completed [facility] of Vaccine Quad .5 mL 00:00:00 [place] [facility] IM 6+ MO Branch Influenza Virus 2019-11-16 Completed [facility] of Vaccine Quad .5 mL 00:00:00 [place] [facility] IM 6+ MO Branch Influenza Virus 2019-11-16 Completed [facility] of Vaccine Quad .5 mL 00:00:00 [place] [facility] IM 6+ MO Branch Influenza Virus 2019-11-16 Completed [facility]it y of Vaccine Quad .5 mL 00:00:00 [place] [facility] IM 6+ MO Branch Influenza Virus 2019-11-16 Completed [facility]it y of Vaccine Quad .5 mL 00:00:00 [place] [facility] IM 6+ MO Branch Influenza Virus 2019-11-16 Completed [facility] y of Vaccine Quad .5 mL 00:00:00 [place] [facility] IM 6+ MO Branch Influenza Virus 2019-11-16 Completed [facility]it y of Vaccine Quad .5 mL 00:00:00 [place] [facility] IM 6+ MO Branch Influenza Virus 2019-11-16 Completed [facility]it y of Vaccine Quad .5 mL 00:00:00 [place] [facility] IM 6+ MO Branch Influenza Virus 2019-11-16 Completed [facility]it y of Vaccine Quad .5 mL 00:00:00 [place] [facility] IM 6+ MO Branch Influenza Virus 2019-11-16 Completed [facility]it y of Vaccine Quad .5 mL 00:00:00 [place] [facility] IM 6+ MO Branch Influenza Virus 2019-11-16 Completed [facility]it y of Vaccine Quad .5 mL 00:00:00 [place] [facility] IM 6+ MO Branch Influenza Virus 2019-11-16 Completed [facility]it y of Vaccine Quad .5 mL 00:00:00 [place] [facility] IM 6+ MO Branch Influenza Virus 2019-11-16 Completed Universit y of Vaccine Quad .5 mL 00:00:00 [place] [facility] IM 6+ MO Branch Influenza Virus 2019-11-16 Completed [facility]it y of Vaccine Quad .5 mL 00:00:00 [place] [facility] IM 6+ MO Branch Influenza Virus 2019-11-16 Completed Universit y of Vaccine Quad .5 mL 00:00:00 [place] [facility] IM 6+ MO Branch Influenza Virus 2019-11-16 Completed Universit y of Vaccine Quad .5 mL 00:00:00 [place] [facility] IM 6+ MO Branch Influenza Virus 2019-11-16 Completed Universit y of Vaccine Quad .5 mL 00:00:00 [place] [facility] IM 6+ MO Branch Influenza Virus 2019-11-16 Completed [facility]it y of Vaccine Quad .5 mL 00:00:00 [place] [facility] IM 6+ MO Branch Influenza Virus 2019-11-16 Completed Universit y of Vaccine Quad .5 mL 00:00:00 [place] [facility] IM 6+ MO Branch Influenza Virus 2019-11-16 Completed Universit y of Vaccine Quad .5 mL 00:00:00 [place] [facility] IM 6+ MO Branch Influenza Virus 2019-11-16 Completed Universit y of Vaccine Quad .5 mL 00:00:00 [place] [facility] IM 6+ MO Branch Influenza Virus 2019-11-16 Completed Universit y of Vaccine Quad .5 mL 00:00:00 [place] [facility] IM 6+ MO Branch Influenza Virus 2019-11-16 Completed Universit y of Vaccine Quad .5 mL 00:00:00 [place] [facility] IM 6+ MO Branch Influenza Virus 2019-11-16 Completed Universit y of Vaccine Quad .5 mL 00:00:00 [place] [facility] IM 6+ MO Branch Influenza Virus 2019-11-16 Completed Universit y of Vaccine Quad .5 mL 00:00:00 [place] [facility] IM 6+ MO Branch Influenza Virus 2019-11-16 Completed Universit y of Vaccine Quad .5 mL 00:00:00 [place] [facility] IM 6+ MO Branch Influenza Virus 2019-11-16 Completed Universit y of Vaccine Quad .5 mL 00:00:00 [place] [facility] IM 6+ MO Branch Influenza Virus 2019-11-16 Completed Universit y of Vaccine Quad .5 mL 00:00:00 [place] [facility] IM 6+ MO Branch Influenza Virus 2019-11-16 Completed Universit y of Vaccine Quad .5 mL 00:00:00 [place] [facility] IM 6+ MO Branch Influenza Virus 2019-11-16 Completed Universit y of Vaccine Quad .5 mL 00:00:00 [place] [facility] IM 6+ MO Branch Influenza Virus 2019-11-16 Completed Universit y of Vaccine Quad .5 mL 00:00:00 [place] [facility] IM 6+ MO Branch Influenza Virus 2019-11-16 Completed Universit y of Vaccine Quad .5 mL 00:00:00 [place] [facility] IM 6+ MO Branch Influenza Virus 2019-11-16 Completed [facility]it y of Vaccine Quad .5 mL 00:00:00 [place] [facility] IM 6+ MO Branch Influenza Virus 2019-11-16 Completed Universit y of Vaccine Quad .5 mL 00:00:00 [place] [facility] IM 6+ MO Branch Influenza Virus 2019-11-16 Completed [facility]it y of Vaccine Quad .5 mL 00:00:00 [place] [facility] IM 6+ MO Branch Influenza Virus 2019-11-16 Completed [facility]it y of Vaccine Quad .5 mL 00:00:00 [place] [facility] IM 6+ MO Branch Influenza Virus 2019-11-16 Completed [facility]it y of Vaccine Quad .5 mL 00:00:00 [place] [facility] IM 6+ MO Branch Influenza Virus 2019-11-16 Completed [facility]it y of Vaccine Quad .5 mL 00:00:00 [place] [facility] IM 6+ MO Branch Influenza Virus 2019-11-16 Completed [facility] y of Vaccine Quad .5 mL 00:00:00 [place] [facility] IM 6+ MO Branch Influenza Virus 2019-11-16 Completed [facility]it y of Vaccine Quad .5 mL 00:00:00 [place] [facility] IM 6+ MO Branch Influenza Virus 2019-11-16 Completed [facility] y of Vaccine Quad .5 mL 00:00:00 [place] [facility] IM 6+ MO Branch Influenza Virus 2019-11-16 Completed [facility] y of Vaccine Quad .5 mL 00:00:00 [place] [facility] IM 6+ MO Branch Influenza Virus 2019-11-16 Completed [facility] y of Vaccine Quad .5 mL 00:00:00 [place] [facility] IM 6+ MO Branch Influenza Virus 2019-11-16 Completed [facility] y of Vaccine Quad .5 mL 00:00:00 [place] [facility] IM 6+ MO Branch Influenza Virus 2019-11-16 Completed Universit y of Vaccine Quad .5 mL 00:00:00 [place] [facility] IM 6+ MO Branch Influenza Virus 2019-11-16 Completed [facility] y of Vaccine Quad .5 mL 00:00:00 [place] [facility] IM 6+ MO Branch Influenza Virus 2019-11-16 Completed [facility] y of Vaccine Quad .5 mL 00:00:00 [place] [facility] IM 6+ MO Branch Influenza Virus 2019-11-16 Completed [facility]it y of Vaccine Quad .5 mL 00:00:00 [place] [facility] IM 6+ MO Branch Influenza Virus 2019-11-16 Completed Universit y of Vaccine Quad .5 mL 00:00:00 [place] [facility] IM 6+ MO Branch Influenza Virus 2019-11-16 Completed [facility]it y of Vaccine Quad .5 mL 00:00:00 [place] [facility] IM 6+ MO Branch Influenza Virus 2019-11-16 Completed Universit y of Vaccine Quad .5 mL 00:00:00 [facility] IM 6+ MO Branch TDAP 2017-07-15 Completed University of 00:00:00 [facility] Rho (d) Immune 2017-07-15 Completed University of Globulin 00:00:00 [facility] TDAP 2017-07-15 Completed University of 00:00:00 [facility] Rho (d) Immune 2017-07-15 Completed University of Globulin 00:00:00 [facility] TDAP 2017-07-15 Completed University of 00:00:00 [facility] Rho (d) Immune 2017-07-15 Completed University of Globulin 00:00:00 [facility] TDAP 2017-07-15 Completed University of 00:00:00 [facility] Rho (d) Immune 2017-07-15 Completed University of Globulin 00:00:00 [facility] TDAP 2017-07-15 Completed University of 00:00:00 [facility] Rho (d) Immune 2017-07-15 Completed University of Globulin 00:00:00 [facility] TDAP 2017-07-15 Completed University of 00:00:00 [facility] Rho (d) Immune 2017-07-15 Completed University of Globulin 00:00:00 [facility] TDAP 2017-07-15 Completed University of 00:00:00 [facility] Rho (d) Immune 2017-07-15 Completed University of Globulin 00:00:00 [facility] TDAP 2017-07-15 Completed University of 00:00:00 [facility] Rho (d) Immune 2017-07-15 Completed University of Globulin 00:00:00 [facility] TDAP 2017-07-15 Completed University of 00:00:00 [facility] Rho (d) Immune 2017-07-15 Completed University of Globulin 00:00:00 [facility] TDAP 2017-07-15 Completed University of 00:00:00 [facility] Rho (d) Immune 2017-07-15 Completed University of Globulin 00:00:00 [facility] TDAP 2017-07-15 Completed University of 00:00:00 [facility] Rho (d) Immune 2017-07-15 Completed University of Globulin 00:00:00 [facility] TDAP 2017-07-15 Completed University of 00:00:00 [facility] Rho (d) Immune 2017-07-15 Completed University of Globulin 00:00:00 [facility] TDAP 2017-07-15 Completed University of 00:00:00 [facility] Rho (d) Immune 2017-07-15 Completed University of Globulin 00:00:00 [facility] TDAP 2017-07-15 Completed University of 00:00:00 [facility] Rho (d) Immune 2017-07-15 Completed University of Globulin 00:00:00 [facility] TDAP 2017-07-15 Completed University of 00:00:00 [facility] Rho (d) Immune 2017-07-15 Completed University of Globulin 00:00:00 [facility] TDAP 2017-07-15 Completed University of 00:00:00 [facility] Rho (d) Immune 2017-07-15 Completed University of Globulin 00:00:00 [facility] TDAP 2017-07-15 Completed University of 00:00:00 [facility] Rho (d) Immune 2017-07-15 Completed University of Globulin 00:00:00 [facility] TDAP 2017-07-15 Completed University of 00:00:00 [facility] Rho (d) Immune 2017-07-15 Completed University of Globulin 00:00:00 [facility] TDAP 2017-07-15 Completed University of 00:00:00 [facility] Rho (d) Immune 2017-07-15 Completed University of Globulin 00:00:00 [facility] TDAP 2017-07-15 Completed University of 00:00:00 [facility] Rho (d) Immune 2017-07-15 Completed [facility] of Globulin 00:00:00 [facility] TDAP 2017-07-15 Completed University of 00:00:00 [facility] Rho (d) Immune 2017-07-15 Completed University of Globulin 00:00:00 [facility] TDAP 2017-07-15 Completed University of 00:00:00 [facility] Rho (d) Immune 2017-07-15 Completed University of Globulin 00:00:00 [facility] TDAP 2017-07-15 Completed University of 00:00:00 [facility] Rho (d) Immune 2017-07-15 Completed University of Globulin 00:00:00 [facility] Tdap 2017-07-15 Completed University of 00:00:00 [facility] Rho (d) Immune 2017-07-15 Completed University of Globulin 00:00:00 [facility] TDAP 2017-07-15 Completed University of 00:00:00 [facility] Rho (d) Immune 2017-07-15 Completed [facility] of Globulin 00:00:00 [facility] TDAP 2017-07-15 Completed University of 00:00:00 [facility] Rho (d) Immune 2017-07-15 Completed [facility] of Globulin 00:00:00 [facility] TDAP 2017-07-15 Completed University of 00:00:00 [facility] Rho (d) Immune 2017-07-15 Completed University of Globulin 00:00:00 [facility] TDAP 2017-07-15 Completed University of 00:00:00 [facility] Rho (d) Immune 2017-07-15 Completed [facility] of Globulin 00:00:00 [facility] TDAP 2017-07-15 Completed University of 00:00:00 [facility] Rho (d) Immune 2017-07-15 Completed [facility] of Globulin 00:00:00 [facility] Tdap 2017-07-15 Completed University of 00:00:00 [facility] Rho (d) Immune 2017-07-15 Completed [facility] of Globulin 00:00:00 [facility] Tdap 2017-07-15 Completed University of 00:00:00 [facility] Rho (d) Immune 2017-07-15 Completed [facility] of Globulin 00:00:00 [facility] Tdap 2017-07-15 Completed University of 00:00:00 [facility] Rho (d) Immune 2017-07-15 Completed [facility] of Globulin 00:00:00 [facility] Tdap 2017-07-15 Completed University of 00:00:00 [facility] Rho (d) Immune 2017-07-15 Completed University of Globulin 00:00:00 [facility] Tdap 2017-07-15 Completed University of 00:00:00 [facility] Rho (d) Immune 2017-07-15 Completed University of Globulin 00:00:00 [facility] Tdap 2017-07-15 Completed University of 00:00:00 [place] [facility] Rho (d) Immune 2017-07-15 Completed [facility] of Globulin 00:00:00 [facility] Tdap 2017-07-15 Completed University of 00:00:00 [facility] Rho (d) Immune 2017-07-15 Completed [facility] of Globulin 00:00:00 [facility] Tdap 2017-07-15 Completed University of 00:00:00 [facility] Rho (d) Immune 2017-07-15 Completed [facility] of Globulin 00:00:00 [facility] Tdap 2017-07-15 Completed University of 00:00:00 [facility] Rho (d) Immune 2017-07-15 Completed [facility] of Globulin 00:00:00 [facility] Tdap 2017-07-15 Completed University of 00:00:00 [facility] Rho (d) Immune 2017-07-15 Completed [facility] of Globulin 00:00:00 [facility] Tdap 2017-07-15 Completed University of 00:00:00 [facility] Rho (d) Immune 2017-07-15 Completed [facility] of Globulin 00:00:00 [facility] Tdap 2017-07-15 Completed University of 00:00:00 [facility] Rho (d) Immune 2017-07-15 Completed [facility] of Globulin 00:00:00 [facility] Tdap 2017-07-15 Completed University of 00:00:00 [facility] Rho (d) Immune 2017-07-15 Completed [facility] of Globulin 00:00:00 [facility] Tdap 2017-07-15 Completed University of 00:00:00 [facility] Rho (d) Immune 2017-07-15 Completed [facility] of Globulin 00:00:00 [facility] Tdap 2017-07-15 Completed University of 00:00:00 [facility] Rho (d) Immune 2017-07-15 Completed [facility] of Globulin 00:00:00 [facility] Tdap 2017-07-15 Completed University of 00:00:00 [facility] Rho (d) Immune 2017-07-15 Completed [facility] of Globulin 00:00:00 [facility] Tdap 2017-07-15 Completed University of 00:00:00 [facility] Rho (d) Immune 2017-07-15 Completed [facility] of Globulin 00:00:00 [facility] Tdap 2017-07-15 Completed University of 00:00:00 [facility] Rho (d) Immune 2017-07-15 Completed [facility] of Globulin 00:00:00 [facility] Tdap 2017-07-15 Completed University of 00:00:00 [facility] Rho (d) Immune 2017-07-15 Completed [facility] of Globulin 00:00:00 [facility] Tdap 2017-07-15 Completed University of 00:00:00 [facility] Rho (d) Immune 2017-07-15 Completed [facility] of Globulin 00:00:00 [facility] Tdap 2017-07-15 Completed University of 00:00:00 [facility] Rho (d) Immune 2017-07-15 Completed [facility] of Globulin 00:00:00 [facility] Tdap 2017-07-15 Completed University of 00:00:00 [facility] Rho (d) Immune 2017-07-15 Completed [facility] of Globulin 00:00:00 [facility] Tdap 2017-07-15 Completed University of 00:00:00 [facility] Rho (d) Immune 2017-07-15 Completed [facility] of Globulin 00:00:00 [facility] Tdap 2017-07-15 Completed University of 00:00:00 [facility] Rho (d) Immune 2017-07-15 Completed [facility] of Globulin 00:00:00 [facility] Tdap 2017-07-15 Completed University of 00:00:00 [facility] Rho (d) Immune 2017-07-15 Completed [facility] of Globulin 00:00:00 [facility] Tdap 2017-07-15 Completed University of 00:00:00 [facility] Rho (d) Immune 2017-07-15 Completed [facility] of Globulin 00:00:00 [facility] Tdap 2017-07-15 Completed University of 00:00:00 [facility] Rho (d) Immune 2017-07-15 Completed [facility] of Globulin 00:00:00 [facility] Tdap 2017-07-15 Completed University of 00:00:00 [facility] Rho (d) Immune 2017-07-15 Completed [facility] of Globulin 00:00:00 [facility] Tdap 2017-07-15 Completed University of 00:00:00 [facility] Rho (d) Immune 2017-07-15 Completed [facility] of Globulin 00:00:00 [facility] Tdap 2017-07-15 Completed University of 00:00:00 [facility] Rho (d) Immune 2017-07-15 Completed [facility] of Globulin 00:00:00 [facility] Tdap 2017-07-15 Completed [facility] of 00:00:00 [place] [facility] Rho (d) Immune 2017-07-15 Completed [facility] of Globulin 00:00:00 [facility] Tdap 2017-07-15 Completed University of 00:00:00 [facility] Rho (d) Immune 2017-07-15 Completed [facility] Globulin 00:00:00 [facility] Tdap 2017-07-15 Completed University of 00:00:00 [facility] Rho (d) Immune 2017-07-15 Completed [facility] of Globulin 00:00:00 [facility] Tdap 2017-07-15 Completed University of 00:00:00 [facility] Rho (d) Immune 2017-07-15 Completed [facility] Globulin 00:00:00 [facility] Tdap 2017-07-15 Completed University of 00:00:00 [facility] Rho (d) Immune 2017-07-15 Completed [facility] Globulin 00:00:00 [facility] Tdap 2017-07-15 Completed University of 00:00:00 [facility] Rho (d) Immune 2017-07-15 Completed [facility] Globulin 00:00:00 [facility] Tdap 2017-07-15 Completed [facility] of 00:00:00 [facility] Rho (d) Immune 2017-07-15 Completed [facility] Globulin 00:00:00 [facility] Tdap 2017-07-15 Completed [facility] of 00:00:00 [facility] Rho (d) Immune 2017-07-15 Completed [facility] Globulin 00:00:00 [facility] Tdap 2017-07-15 Completed [facility] of 00:00:00 [facility] Rho (d) Immune 2017-07-15 Completed [facility] Globulin 00:00:00 [facility] Tdap 2017-07-15 Completed [facility] of 00:00:00 [facility] Rho (d) Immune 2017-07-15 Completed [facility] Globulin 00:00:00 [facility] Tdap 2017-07-15 Completed [facility] 00:00:00 [facility] Rho (d) Immune 2017-07-15 Completed [facility] of Globulin 00:00:00 [facility] Tdap 2017-07-15 Completed [facility] 00:00:00 [facility] Rho (d) Immune 2017-07-15 Completed [facility] Globulin 00:00:00 [facility] TDAP 2017-07-15 Completed [facility] 00:00:00 [facility] Rho (d) Immune 2017-07-15 Completed [facility] Globulin 00:00:00 [facility] TDAP 2017-07-15 Completed [facility] 00:00:00 [facility] Rho (d) Immune 2017-07-15 Completed [facility] Globulin 00:00:00 [facility] TDAP 2017-07-15 Completed [facility] 00:00:00 [facility] Rho (d) Immune 2017-07-15 Completed [facility] Globulin 00:00:00 [facility] TDAP 2017-07-15 Completed [facility] 00:00:00 [facility] Rho (d) Immune 2017-07-15 Completed [facility] Globulin 00:00:00 [facility] TDAP 2017-07-15 Completed [facility] 00:00:00 [facility] Rho (d) Immune 2017-07-15 Completed [facility] Globulin 00:00:00 [facility] TDAP 2017-07-15 Completed [facility] 00:00:00 [facility] Rho (d) Immune 2017-07-15 Completed [facility] Globulin 00:00:00 [facility] TDAP 2017-07-15 Completed [facility] 00:00:00 [facility] Rho (d) Immune 2017-07-15 Completed [facility] Globulin 00:00:00 [facility] TDAP 2017-07-15 Completed [facility] 00:00:00 [facility] Rho (d) Immune 2017-07-15 Completed [facility] Globulin 00:00:00 [facility] Tdap (Adacel) 2015-09-22 Completed [facility] 00:00:00 [facility] Influenza Virus 2015-05-25 Completed Universit y of Vaccine Quad IM 3+ 00:00:00 [facility] Influenza Virus 2015-05-25 Completed [facility]it y of Vaccine Quad IM 3+ 00:00:00 [facility] Influenza Virus 2015-05-25 Completed [facility]it y of Vaccine Quad IM 3+ 00:00:00 [facility] Influenza Virus 2015-05-25 Completed [facility]it y of Vaccine Quad IM 3+ 00:00:00 [facility] Influenza Virus 2015-05-25 Completed [facility]it y of Vaccine Quad IM 3+ 00:00:00 [facility] Influenza Virus 2015-05-25 Completed [facility]it y of Vaccine Quad IM 3+ 00:00:00 [facility] Influenza Virus 2015-05-25 Completed [facility]it y of Vaccine Quad IM 3+ 00:00:00 [facility] Influenza Virus 2015-05-25 Completed [facility]it y of Vaccine Quad IM 3+ 00:00:00 [facility] Influenza Virus 2015-05-25 Completed [facility] y of Vaccine Quad IM 3+ 00:00:00 [facility] Influenza Virus 2015-05-25 Completed [facility] y of Vaccine Quad IM 3+ 00:00:00 [facility] Influenza Virus 2015-05-25 Completed [facility]it y of Vaccine Quad IM 3+ 00:00:00 [facility] Influenza Virus 2015-05-25 Completed [facility]it y of Vaccine Quad IM 3+ 00:00:00 [facility] Influenza Virus 2015-05-25 Completed [facility]it y of Vaccine Quad IM 3+ 00:00:00 [facility] Influenza Virus 2015-05-25 Completed [facility]it y of Vaccine Quad IM 3+ 00:00:00 [facility] Influenza Virus 2015-05-25 Completed [facility] y of Vaccine Quad IM 3+ 00:00:00 [facility] Influenza Virus 2015-05-25 Completed [facility] y of Vaccine Quad IM 3+ 00:00:00 [facility] Influenza Virus 2015-05-25 Completed [facility]it y of Vaccine Quad IM 3+ 00:00:00 [facility] Influenza Virus 2015-05-25 Completed [facility]it y of Vaccine Quad IM 3+ 00:00:00 [facility] Influenza Virus 2015-05-25 Completed [facility]it y of Vaccine Quad IM 3+ 00:00:00 [facility] Influenza Virus 2015-05-25 Completed [facility] y of Vaccine Quad IM 3+ 00:00:00 [facility] Influenza Virus 2015-05-25 Completed [facility] y of Vaccine Quad IM 3+ 00:00:00 [facility] Influenza Virus 2015-05-25 Completed [facility] y of Vaccine Quad IM 3+ 00:00:00 [facility] Influenza Virus 2015-05-25 Completed [facility] y of Vaccine Quad IM 3+ 00:00:00 [facility] Influenza Virus 2015-05-25 Completed [facility]it y of Vaccine Quad IM 3+ 00:00:00 [facility] Influenza Virus 2015-05-25 Completed [facility] y of Vaccine Quad IM 3+ 00:00:00 [facility] Influenza Virus 2015-05-25 Completed [facility] y of Vaccine Quad IM 3+ 00:00:00 [facility] Influenza Virus 2015-05-25 Completed [facility] y of Vaccine Quad IM 3+ 00:00:00 [facility] Influenza Virus 2015-05-25 Completed [facility] y of Vaccine Quad IM 3+ 00:00:00 [facility] Influenza Virus 2015-05-25 Completed [facility] y of Vaccine Quad IM 3+ 00:00:00 [facility] Influenza Virus 2015-05-25 Completed [facility] y of Vaccine Quad IM 3+ 00:00:00 [facility] Influenza Virus 2015-05-25 Completed [facility] y of Vaccine Quad IM 3+ 00:00:00 [facility] Influenza Virus 2015-05-25 Completed [facility] y of Vaccine Quad IM 3+ 00:00:00 [facility] Influenza Virus 2015-05-25 Completed [facility] y of Vaccine Quad IM 3+ 00:00:00 [facility] Influenza Virus 2015-05-25 Completed [facility] y of Vaccine Quad IM 3+ 00:00:00 [facility] Influenza Virus 2015-05-25 Completed [facility] y of Vaccine Quad IM 3+ 00:00:00 [facility] Influenza Virus 2015-05-25 Completed [facility] y of Vaccine Quad IM 3+ 00:00:00 [facility] Influenza Virus 2015-05-25 Completed [facility] y of Vaccine Quad IM 3+ 00:00:00 [facility] Influenza Virus 2015-05-25 Completed [facility] y of Vaccine Quad IM 3+ 00:00:00 [facility] Influenza Virus 2015-05-25 Completed [facility] y of Vaccine Quad IM 3+ 00:00:00 [facility] Influenza Virus 2015-05-25 Completed [facility] y of Vaccine Quad IM 3+ 00:00:00 [facility] Influenza Virus 2015-05-25 Completed [facility] y of Vaccine Quad IM 3+ 00:00:00 [facility] Influenza Virus 2015-05-25 Completed [facility] y of Vaccine Quad IM 3+ 00:00:00 [facility] Influenza Virus 2015-05-25 Completed [facility] y of Vaccine Quad IM 3+ 00:00:00 [facility] Influenza Virus 2015-05-25 Completed [facility] y of Vaccine Quad IM 3+ 00:00:00 [facility] Influenza Virus 2015-05-25 Completed [facility] y of Vaccine Quad IM 3+ 00:00:00 [facility] Influenza Virus 2015-05-25 Completed [facility] y of Vaccine Quad IM 3+ 00:00:00 [facility] Influenza Virus 2015-05-25 Completed [facility] y of Vaccine Quad IM 3+ 00:00:00 [facility] Influenza Virus 2015-05-25 Completed [facility] y of Vaccine Quad IM 3+ 00:00:00 [facility] Influenza Virus 2015-05-25 Completed [facility] y of Vaccine Quad IM 3+ 00:00:00 [facility] Influenza Virus 2015-05-25 Completed [facility] y of Vaccine Quad IM 3+ 00:00:00 [facility] Influenza Virus 2015-05-25 Completed [facility] y of Vaccine Quad IM 3+ 00:00:00 [facility] Influenza Virus 2015-05-25 Completed [facility] y of Vaccine Quad IM 3+ 00:00:00 [facility] Influenza Virus 2015-05-25 Completed [facility] y of Vaccine Quad IM 3+ 00:00:00 [facility] Influenza Virus 2015-05-25 Completed [facility] y of Vaccine Quad IM 3+ 00:00:00 [facility] Influenza Virus 2015-05-25 Completed [facility] y of Vaccine Quad IM 3+ 00:00:00 [facility] Influenza Virus 2015-05-25 Completed [facility] y of Vaccine Quad IM 3+ 00:00:00 [facility] Influenza Virus 2015-05-25 Completed [facility] y of Vaccine Quad IM 3+ 00:00:00 [facility] Influenza Virus 2015-05-25 Completed [facility] y of Vaccine Quad IM 3+ 00:00:00 [facility] Influenza Virus 2015-05-25 Completed [facility] y of Vaccine Quad IM 3+ 00:00:00 [facility] Influenza Virus 2015-05-25 Completed [facility] y of Vaccine Quad IM 3+ 00:00:00 [facility] Influenza Virus 2015-05-25 Completed [facility] y of Vaccine Quad IM 3+ 00:00:00 [facility] Influenza Virus 2015-05-25 Completed [facility] y of Vaccine Quad IM 3+ 00:00:00 [facility] Influenza Virus 2015-05-25 Completed [facility] y of Vaccine Quad IM 3+ 00:00:00 [facility] Influenza Virus 2015-05-25 Completed [facility] y of Vaccine Quad IM 3+ 00:00:00 [facility] Influenza Virus 2015-05-25 Completed [facility] y of Vaccine Quad IM 3+ 00:00:00 [facility] Influenza Virus 2015-05-25 Completed [facility] y of Vaccine Quad IM 3+ 00:00:00 [facility] Influenza Virus 2015-05-25 Completed [facility] y of Vaccine Quad IM 3+ 00:00:00 [facility] Influenza Virus 2015-05-25 Completed [facility] y of Vaccine Quad IM 3+ 00:00:00 [facility] Influenza Virus 2015-05-25 Completed [facility] y of Vaccine Quad IM 3+ 00:00:00 [facility] Influenza Virus 2015-05-25 Completed [facility] y of Vaccine Quad IM 3+ 00:00:00 [facility] Influenza Virus 2015-05-25 Completed [facility] y of Vaccine Quad IM 3+ 00:00:00 [facility] Influenza Virus 2015-05-25 Completed [facility] y of Vaccine Quad IM 3+ 00:00:00 [facility] Influenza Virus 2015-05-25 Completed [facility] y of Vaccine Quad IM 3+ 00:00:00 [facility] Influenza Virus 2015-05-25 Completed [facility] y of Vaccine Quad IM 3+ 00:00:00 [facility] Influenza Virus 2015-05-25 Completed [facility] y of Vaccine Quad IM 3+ 00:00:00 [facility] Influenza Virus 2015-05-25 Completed [facility] y of Vaccine Quad IM 3+ 00:00:00 [facility] Influenza Virus 2015-05-25 Completed [facility] y of Vaccine Quad IM 3+ 00:00:00 [facility] Influenza Virus 2015-05-25 Completed [facility] y of Vaccine Quad IM 3+ 00:00:00 [facility] Influenza Virus 2015-05-25 Completed [facility] y of Vaccine Quad IM 3+ 00:00:00 [facility] TDAP 2012-10-23 Completed [facility] 00:00:00 [facility] TDAP 2012-10-23 Completed [facility] of 00:00:00 [facility] TDAP 2012-10-23 Completed [facility] 00:00:00 [facility] TDAP 2012-10-23 Completed [facility] of 00:00:00 [facility] TDAP 2012-10-23 Completed [facility] 00:00:00 [facility] TDAP 2012-10-23 Completed [facility] 00:00:00 [facility] TDAP 2012-10-23 Completed [facility] 00:00:00 [facility] TDAP 2012-10-23 Completed [facility] 00:00:00 [facility] TDAP 2012-10-23 Completed [facility] 00:00:00 [facility] TDAP 2012-10-23 Completed [facility] 00:00:00 [facility] TDAP 2012-10-23 Completed [facility] 00:00:00 [facility] TDAP 2012-10-23 Completed [facility] 00:00:00 [facility] TDAP 2012-10-23 Completed [facility] 00:00:00 [facility] TDAP 2012-10-23 Completed [facility] 00:00:00 [facility] TDAP 2012-10-23 Completed [facility] 00:00:00 [facility] TDAP 2012-10-23 Completed [facility] 00:00:00 [facility] TDAP 2012-10-23 Completed [facility] 00:00:00 [facility] TDAP 2012-10-23 Completed [facility] 00:00:00 [facility] TDAP 2012-10-23 Completed [facility] 00:00:00 [facility] TDAP 2012-10-23 Completed [facility] 00:00:00 [facility] TDAP 2012-10-23 Completed [facility] 00:00:00 [facility] Tdap 2012-10-23 Completed [facility] 00:00:00 [facility] TDAP 2012-10-23 Completed [facility] 00:00:00 [facility] TDAP 2012-10-23 Completed [facility] 00:00:00 [facility] TDAP 2012-10-23 Completed [facility] 00:00:00 [facility] TDAP 2012-10-23 Completed [facility] 00:00:00 [facility] TDAP 2012-10-23 Completed [facility] 00:00:00 [facility] TDAP 2012-10-23 Completed [facility] 00:00:00 [facility] TDAP 2012-10-23 Completed [facility] 00:00:00 [facility] Tdap 2012-10-23 Completed [facility] 00:00:00 [facility] Tdap 2012-10-23 Completed [facility] 00:00:00 [facility] Tdap 2012-10-23 Completed [facility] 00:00:00 [facility] Tdap 2012-10-23 Completed [facility] 00:00:00 [facility] Tdap 2012-10-23 Completed [facility] 00:00:00 [facility] Tdap 2012-10-23 Completed [facility] 00:00:00 [facility] Tdap 2012-10-23 Completed [facility] 00:00:00 [facility] Tdap 2012-10-23 Completed [facility] 00:00:00 [facility] Tdap 2012-10-23 Completed [facility] 00:00:00 [facility] Tdap 2012-10-23 Completed [facility] 00:00:00 [facility] Tdap 2012-10-23 Completed [facility] 00:00:00 [facility] Tdap 2012-10-23 Completed [facility] 00:00:00 [facility] Tdap 2012-10-23 Completed [facility] 00:00:00 [facility] Tdap 2012-10-23 Completed [facility] 00:00:00 [facility] Tdap 2012-10-23 Completed [facility] 00:00:00 [facility] Tdap 2012-10-23 Completed [facility] 00:00:00 [facility] Tdap 2012-10-23 Completed [facility] 00:00:00 [facility] Tdap 2012-10-23 Completed [facility] 00:00:00 [facility] Tdap 2012-10-23 Completed [facility] 00:00:00 [facility] Tdap 2012-10-23 Completed [facility] 00:00:00 [facility] Tdap 2012-10-23 Completed [facility] 00:00:00 [facility] Tdap 2012-10-23 Completed [facility] 00:00:00 [facility] Tdap 2012-10-23 Completed [facility] 00:00:00 [facility] Tdap 2012-10-23 Completed [facility] 00:00:00 [facility] Tdap 2012-10-23 Completed [facility] 00:00:00 [facility] Tdap 2012-10-23 Completed [facility] 00:00:00 [facility] Tdap 2012-10-23 Completed [facility] 00:00:00 [facility] Tdap 2012-10-23 Completed [facility] 00:00:00 [facility] Tdap 2012-10-23 Completed [facility] 00:00:00 [facility] Tdap 2012-10-23 Completed [facility] 00:00:00 [facility] Tdap 2012-10-23 Completed [facility] 00:00:00 [facility] Tdap 2012-10-23 Completed [facility] 00:00:00 [facility] Tdap 2012-10-23 Completed [facility] 00:00:00 [facility] Tdap 2012-10-23 Completed [facility] 00:00:00 [facility] Tdap 2012-10-23 Completed [facility] 00:00:00 [facility] Tdap 2012-10-23 Completed [facility] 00:00:00 [facility] Tdap 2012-10-23 Completed [facility] 00:00:00 [facility] Tdap 2012-10-23 Completed [facility] 00:00:00 [facility] Tdap 2012-10-23 Completed [facility] 00:00:00 [facility] Tdap 2012-10-23 Completed [facility] 00:00:00 [facility] Tdap 2012-10-23 Completed [facility] 00:00:00 [facility] Tdap 2012-10-23 Completed [facility] 00:00:00 [facility] TDAP 2012-10-23 Completed [facility] 00:00:00 [facility] TDAP 2012-10-23 Completed [facility] 00:00:00 [facility] TDAP 2012-10-23 Completed [facility] 00:00:00 [facility] TDAP 2012-10-23 Completed [facility] 00:00:00 [facility] TDAP 2012-10-23 Completed [facility] 00:00:00 [facility] TDAP 2012-10-23 Completed [facility] 00:00:00 [facility] TDAP 2012-10-23 Completed [facility] 00:00:00 [facility] TDAP 2012-10-23 Completed [facility] 00:00:00 [facility] Vital Signs Vital Name Observation Time Observation Value Comments Source Systolic blood 2021-04-04 107 mm[Hg] University [facility] pressure 20:06:00 [facility] Diastolic blood 2021-04-04 61 mm[Hg] University o f pressure 20:06:00 [facility] Heart rate 2021-04-04 91 /min [facility] of 20:06:00 [facility] Body temperature 2021-04-04 36.94 [place] [facility] 20:06:00 [facility] Respiratory rate 2021-04-04 18 /min [facility] of 20:06:00 [facility] Body height 2021-04-04 154.9 cm University of 20:06:00 [facility] Body weight 2021-04-04 94.802 kg University of 20:06:00 [facility] BMI 2021-04-04 39.49 kg/m2 University of 20:06:00 [facility] Systolic blood 2021-02-13 113 mm[Hg] [facility] pressure 15:42:00 [facility] Diastolic blood 2021-02-13 81 mm[Hg] University o f pressure 15:42:00 [facility] Heart rate 2021-02-13 71 /min [facility] of 15:42:00 [facility] Body temperature 2021-02-13 38.11 [place] [facility] 15:42:00 [facility] Respiratory rate 2021-02-13 20 /min [facility] 15:42:00 [facility] Body height 2021-02-13 154.9 cm University of 15:42:00 [facility] Body weight 2021-02-13 95.822 kg University of 15:42:00 [facility] BMI 2021-02-13 39.92 kg/m2 University of 15:42:00 [facility] Oxygen saturation 2021-02-13 98 /min [facility] in Arterial blood 15:42:00 [facility] Systolic blood 2021-02-13 113 mm[Hg] [facility] pressure 15:42:00 [facility] Diastolic blood 2021-02-13 81 mm[Hg] University o f pressure 15:42:00 [facility] Heart rate 2021-02-13 71 /min [facility] of 15:42:00 [facility] Body temperature 2021-02-13 38.11 [facility] 15:42:00 [facility] Respiratory rate 2021-02-13 20 /min [facility] of 15:42:00 [facility] Body height 2021-02-13 154.9 cm University of 15:42:00 [facility] Body weight 2021-02-13 95.822 kg University of 15:42:00 [facility] BMI 2021-02-13 39.92 kg/m2 [facility] 15:42:00 [facility] Oxygen saturation 2021-02-13 98 /min [facility] in Arterial blood 15:42:00 [facility] Systolic blood 2020-12-10 129 mm[Hg] [facility] pressure 14:44:00 [facility] Diastolic blood 2020-12-10 71 mm[Hg] University o f pressure 14:44:00 [facility] Heart rate 2020-12-10 99 /min [facility] 14:44:00 [facility] Body temperature 2020-12-10 36.22 [place] [facility] 14:44:00 [facility] Respiratory rate 2020-12-10 20 /min [facility] 14:44:00 [facility] Body height 2020-12-10 154.9 cm [facility] 14:44:00 [facility] Body weight 2020-12-10 97.523 kg University of 14:44:00 [facility] BMI 2020-12-10 40.62 kg/m2 [facility] 14:44:00 [facility] Oxygen saturation 2020-12-10 99 /min [facility] in Arterial blood 14:44:00 [facility] Systolic blood 2020-12-10 129 mm[Hg] [facility] pressure 14:44:00 [facility] Diastolic blood 2020-12-10 71 mm[Hg] University o f pressure 14:44:00 [facility] Heart rate 2020-12-10 99 /min [facility] 14:44:00 [facility] Body temperature 2020-12-10 36.22 [place] [facility] 14:44:00 [facility] Respiratory rate 2020-12-10 20 /min [facility] 14:44:00 [facility] Body height 2020-12-10 154.9 cm [facility] 14:44:00 [facility] Body weight 2020-12-10 97.523 kg University of 14:44:00 [facility] BMI 2020-12-10 40.62 kg/m2 [facility] 14:44:00 [facility] Oxygen saturation 2020-12-10 99 /min [facility] in Arterial blood 14:44:00 [facility] Systolic blood 2020-11-29 107 mm[Hg] [facility] pressure 20:12:00 [facility] Diastolic blood 2020-11-29 66 mm[Hg] University o f pressure 20:12:00 [facility] Heart rate 2020-11-29 89 /min [facility] 20:12:00 [facility] Body height 2020-11-29 154.9 cm University [facility] 20:12:00 [facility] Body weight 2020-11-29 97.523 kg [facility] of 20:12:00 [facility] BMI 2020-11-29 40.62 kg/m2 [facility] 20:12:00 [facility] Oxygen saturation 2020-11-29 95 /min [facility] in Arterial blood 20:12:00 [place] [facility] Systolic blood 2020-11-29 107 mm[Hg] [facility] pressure 20:12:00 [facility] Diastolic blood 2020-11-29 66 mm[Hg] University o f pressure 20:12:00 [facility] Heart rate 2020-11-29 89 /min [facility] 20:12:00 [facility] Body height 2020-11-29 154.9 cm University [facility] 20:12:00 [facility] Body weight 2020-11-29 97.523 kg [facility] of 20:12:00 [facility] BMI 2020-11-29 40.62 kg/m2 [facility] 20:12:00 [facility] Oxygen saturation 2020-11-29 95 /min [facility] in Arterial blood 20:12:00 [facility] Systolic blood 2020-11-21 98 mm[Hg] [facility] pressure 14:00:00 [facility] Diastolic blood 2020-11-21 60 mm[Hg] University o f pressure 14:00:00 [facility] Heart rate 2020-11-21 61 /min [facility] 14:00:00 [facility] Body temperature 2020-11-21 36.83 [place] [facility] 14:00:00 [facility] Respiratory rate 2020-11-21 18 /min [facility] 14:00:00 [facility] Body height 2020-11-21 154.9 cm [facility] 14:00:00 [facility] Body weight 2020-11-21 97.977 kg University of 14:00:00 [facility] BMI 2020-11-21 40.81 kg/m2 [facility] 14:00:00 [facility] Systolic blood 2020-11-09 127 mm[Hg] [facility] pressure 19:40:00 [facility] Diastolic blood 2020-11-09 88 mm[Hg] University o f pressure 19:40:00 [facility] Heart rate 2020-11-09 78 /min [facility] of 19:40:00 [facility] Respiratory rate 2020-11-09 16 /min [facility] of 19:40:00 [facility] Oxygen saturation 2020-11-09 99 /min [facility] in Arterial blood 19:40:00 [facility] Body temperature 2020-11-09 36.94 [place] [facility] 17:57:00 [facility] Body weight 2020-11-09 99.791 kg University of 17:57:00 [facility] BMI 2020-11-09 41.57 kg/m2 University of 17:57:00 [facility] Systolic blood 2020-10-24 111 mm[Hg] [facility] pressure 15:18:00 [facility] Diastolic blood 2020-10-24 72 mm[Hg] University o f pressure 15:18:00 [facility] Heart rate 2020-10-24 74 /min [facility] of 15:18:00 [facility] Body temperature 2020-10-24 36.61 [place] [facility] 15:18:00 [facility] Respiratory rate 2020-10-24 18 /min [facility] 15:18:00 [facility] Body height 2020-10-24 154.9 cm University of 15:18:00 [facility] Body weight 2020-10-24 100.699 kg University of 15:18:00 [facility] BMI 2020-10-24 41.95 kg/m2 University of 15:18:00 [facility] Systolic blood 2020-10-22 124 mm[Hg] [facility] pressure 18:19:00 [facility] Diastolic blood 2020-10-22 79 mm[Hg] University o f pressure 18:19:00 [facility] Heart rate 2020-10-22 70 /min [facility] 18:19:00 [facility] Body temperature 2020-10-22 36.94 [place] [facility] 18:19:00 [facility] Respiratory rate 2020-10-22 18 /min [facility] 18:19:00 [facility] Body height 2020-10-22 154.9 cm University of 18:19:00 [facility] Body weight 2020-10-22 99.791 kg University of 18:19:00 [facility] BMI 2020-10-22 41.57 kg/m2 University of 18:19:00 [facility] Oxygen saturation 2020-10-22 98 /min [facility] in Arterial blood 18:19:00 [facility] by Pulse oximetry [place] Systolic blood 2020-10-20 134 mm[Hg] University of pressure 04:03:00 [facility] Diastolic blood 2020-10-20 84 mm[Hg] University o f pressure 04:03:00 [facility] Heart rate 2020-10-20 65 /min University of 04:03:00 [facility] Respiratory rate 2020-10-20 18 /min [facility] 04:03:00 [facility] Oxygen saturation 2020-10-20 99 /min University of in Arterial blood 04:03:00 [facility] by Pulse oximetry Branch Body temperature 2020-10-20 36.89 Trice University of 01:30:40 [facility] Body height 2020-10-20 154.9 cm University of :27:00 [facility] Body weight 2020-10-20 99.791 kg University of :27:00 [facility] BMI 2020-10-20 41.57 kg/m2 University of :27:00 [facility] Heart rate 2020-07-02 73 /min [facility] of 00:21:00 [facility] Respiratory rate 2020-07-02 16 /min [facility] of 00:21:00 [facility] Oxygen saturation 2020-07-02 98 /min University of in Arterial blood 00:21:00 [facility] by Pulse oximetry Branch Systolic blood 2020-06-06 112 mm[Hg] University of pressure 15:51:00 [facility] Diastolic blood 2020-06-06 77 mm[Hg] University o f pressure 15:51:00 [facility] Heart rate 2020-06-06 78 /min [facility] of 15:51:00 [facility] Body temperature 2020-06-06 37.06 Trice University of 15:51:00 [facility] Respiratory rate 2020-06-06 20 /min [facility] 15:51:00 [facility] Body height 2020-06-06 154.9 cm University of 15:51:00 [facility] Oxygen saturation 2020-06-06 98 /min University of in Arterial blood 15:51:00 [facility] by Pulse oximetry Branch Systolic blood 2020-05-27 108 mm[Hg] [facility] of pressure 15:22:00 [facility] Diastolic blood 2020-05-27 63 mm[Hg] University o f pressure 15:22:00 [facility] Heart rate 2020-05-27 83 /min University of 15::00 [facility] Body temperature 2020-05-27 36.17 Trice University of 15:22:00 [facility] Respiratory rate 2020-05-27 19 /min [facility] of 15:22:00 [facility] Body height 2020-05-27 154.9 cm University of 15:22:00 [facility] Body weight 2020-05-27 92.534 kg University of 15:22:00 [facility] BMI 2020-05-27 38.55 kg/m2 University of 15:22:00 [facility] Oxygen saturation 2020-05-27 97 /min [facility] of in Arterial blood 15:22:00 [facility] by Pulse oximetry Branch Systolic blood 2020-04-09 128 mm[Hg] University of pressure 15:38:00 [facility] Diastolic blood 2020-04-09 71 mm[Hg] University o f pressure 15:38:00 [facility] Heart rate 2020-04-09 85 /min University of 15:38:00 [facility] Body temperature 2020-04-09 37 Trice University of 15:38:00 [facility] Respiratory rate 2020-04-09 18 /min University of 15:38:00 [facility] Body height 2020-04-09 154.9 cm University of 15:38:00 [facility] Body weight 2020-04-09 99.882 kg University of 15:38:00 [facility] BMI 2020-04-09 41.61 kg/m2 University of 15:38:00 [facility] Oxygen saturation 2020-04-09 100 /min [facility] of in Arterial blood 15:38:00 [facility] by Pulse oximetry Branch Systolic blood 2020-03-11 119 mm[Hg] [facility] pressure 18:55:00 [facility] Diastolic blood 2020-03-11 68 mm[Hg] University o f pressure 18:55:00 [facility] Heart rate 2020-03-11 83 /min [facility] of 18:38:00 [facility] Body temperature 2020-03-11 37 Trice University of 18:38:00 [facility] Respiratory rate 2020-03-11 18 /min [facility] of 18:38:00 [facility] Oxygen saturation 2020-03-11 100 /min [facility] of in Arterial blood 18:38:00 [facility] by Pulse oximetry Branch Systolic blood 2020-03-07 131 mm[Hg] University of pressure 03:00:00 [facility] Diastolic blood 2020-03-07 78 mm[Hg] University o f pressure 03:00:00 [facility] Heart rate 2020-03-07 81 /min [facility] of 03:00:00 [facility] Respiratory rate 2020-03-07 18 /min [facility] of 03:00:00 [facility] Oxygen saturation 2020-03-07 99 /min [facility] of in Arterial blood 03:00:00 [facility] by Pulse oximetry Branch Body temperature 2020-03-07 36.83 Trice University of 00:50:00 [facility] Body height 2020-03-07 154.9 cm University of :50:00 [facility] Body weight 2020-03-07 95.255 kg University of :50: [facility] BMI 2020-03-07 39.68 kg/m2 University of 00:50:00 [facility] Systolic blood 2020-03-06 131 mm[Hg] University of pressure 15:38:00 [facility] Diastolic blood 2020-03-06 77 mm[Hg] University o f pressure 15:38:00 [facility] Heart rate 2020-03-06 99 /min [facility] of 15:38:00 [facility] Body temperature 2020-03-06 37.06 Trice University of 15:38:00 [facility] Respiratory rate 2020-03-06 18 /min [facility] of 15:38:00 [facility] Body weight 2020-03-06 99.791 kg University of 15:38:00 [facility] BMI 2020-03-06 41.57 kg/m2 University of 15:38:00 [facility] Oxygen saturation 2020-03-06 97 /min [place] [facility] in Arterial blood 15:38:00 [facility] by Pulse oximetry Branch Systolic blood 2020-02-08 115 mm[Hg] University of pressure 02:31:00 [facility] Diastolic blood 2020-02-08 66 mm[Hg] University o f pressure 02:31:00 [facility] Heart rate 2020-02-08 79 /min University of 02:31:00 [facility] Body temperature 2020-02-08 36.94 Trice University of 02:31:00 [facility] Respiratory rate 2020-02-08 16 /min University of 02:31 [facility] Body height 2020-02-08 154.9 cm University of 02:31: [facility] Body weight 2020-02-08 91.173 kg University of 02:31:00 [facility] BMI 2020-02-08 37.98 kg/m2 University of 02:31:00 [facility] Oxygen saturation 2020-02-08 99 /min [facility] of in Arterial blood 02:31:00 [facility] by Pulse oximetry Branch Systolic blood 2019-12-15 120 mm[Hg] University of pressure 02:00:00 [facility] Diastolic blood 2019-12-15 66 mm[Hg] University o f pressure 02:00:00 [facility] Heart rate 2019-12-15 65 /min [facility] of 02:00:00 [facility] Respiratory rate 2019-12-15 17 /min [facility] of 02:00:00 [facility] Oxygen saturation 2019-12-15 99 /min [facility] of in Arterial blood 02:00:00 [facility] by Pulse oximetry Branch Body temperature 2019-12-14 37.33 Trice University of 21:23:00 [facility] Body weight 2019-12-14 77.111 kg University of 21:23: [facility] BMI 2019-12-14 32.12 kg/m2 University of 21:23:00 [facility] Systolic blood 2019-11-27 117 mm[Hg] University of pressure 15:10:00 [facility] Diastolic blood 2019-11-27 74 mm[Hg] University o f pressure 15:10:00 [facility] Heart rate 2019-11-27 80 /min [facility] of 15:10:00 [facility] Respiratory rate 2019-11-27 12 /min [facility] of 15:10:00 [facility] Oxygen saturation 2019-11-27 97 /min [place] [facility] in Arterial blood 15:10:00 [facility] by Pulse oximetry Branch Body temperature 2019-11-27 37.28 Trice University of 14:15:00 [facility] Body weight 2019-11-27 81.647 kg University of 14:15:00 [facility] BMI 2019-11-27 34.01 kg/m2 University of 14:15:00 [facility] Systolic blood 2019-11-16 116 mm[Hg] University of pressure 13:24:00 [facility] Diastolic blood 2019-11-16 74 mm[Hg] University o f pressure 13:24:00 [facility] Heart rate 2019-11-16 78 /min [facility] of 13:24:00 [facility] Body temperature 2019-11-16 36.78 Trice University of 13:24:00 [facility] Respiratory rate 2019-11-16 18 /min [facility] of 13:24:00 [facility] Body height 2019-11-16 154.9 cm University of 13:24:00 [facility] Body weight 2019-11-16 83.915 kg University of 13:24:00 [facility] BMI 2019-11-16 34.96 kg/m2 University of 13:24:00 [facility] Systolic blood 2019-10-22 130 mm[Hg] University of pressure 19:04:00 [facility] Diastolic blood 2019-10-22 83 mm[Hg] University o f pressure 19:04:00 [facility] Heart rate 2019-10-22 77 /min [facility] of 19:04:00 [facility] Body temperature 2019-10-22 36.28 Trice University of 19:04:00 [facility] Respiratory rate 2019-10-22 16 /min [facility] of 19:04:00 [facility] Body height 2019-10-22 154.9 cm University of 19:04:00 [facility] Body weight 2019-10-22 79.153 kg University of 19:04:00 [facility] BMI 2019-10-22 32.97 kg/m2 University of 19:04:00 [facility] Systolic blood 2019-10-01 117 mm[Hg] University of pressure 16:41:00 [facility] Diastolic blood 2019-10-01 73 mm[Hg] University o f pressure 16:41:00 [facility] Heart rate 2019-10-01 86 /min [facility] of 16:41:00 [facility] Body temperature 2019-10-01 36.67 Trice University of 16:41:00 [facility] Respiratory rate 2019-10-01 16 /min [facility] of 16:41:00 [facility] Body height 2019-10-01 154.9 cm University of 16:41:00 [facility] Body weight 2019-10-01 78.983 kg University of 16:41:00 [facility] BMI 2019-10-01 32.90 kg/m2 University of 16:41:00 [facility] Systolic blood 2019-09-16 117 mm[Hg] University of pressure 14:41:04 [facility] Diastolic blood 2019-09-16 78 mm[Hg] University o f pressure 14:41:04 [facility] Heart rate 2019-09-16 74 /min [facility] of 14:41:04 [facility] Body temperature 2019-09-16 36.94 Trice University of 14:41:04 [facility] Respiratory rate 2019-09-16 20 /min [facility] of 14:41:04 [facility] Oxygen saturation 2019-09-16 100 /min [facility] in Arterial blood 14:41:04 [facility] by Pulse oximetry [place] Body weight 2019-09-16 77.565 kg University of 12:24:00 [facility] BMI 2019-09-16 32.31 kg/m2 University of 12:24:00 [facility] Systolic blood 2019-09-09 126 mm[Hg] University of pressure 19:24:00 [facility] Diastolic blood 2019-09-09 82 mm[Hg] University o f pressure 19:24:00 [facility] Heart rate 2019-09-09 86 /min [facility] of 19:24:00 [facility] Body temperature 2019-09-09 37.22 Trice University of 19:24:00 [facility] Respiratory rate 2019-09-09 16 /min [facility] of 19:24:00 [facility] Body height 2019-09-09 154.9 cm University of 19:24:00 [facility] Body weight 2019-09-09 77.565 kg University of 19:24:00 [facility] BMI 2019-09-09 32.31 kg/m2 University of 19:24:00 [facility] Oxygen saturation 2019-09-09 98 /min [facility] Arterial blood 19:24:00 [facility] Pulse oximetry [place] Systolic blood 2019-09-03 119 mm[Hg] University of pressure 20:38:00 [facility] Diastolic blood 2019-09-03 74 mm[Hg] University o f pressure 20:38:00 [facility] Heart rate 2019-09-03 69 /min [facility] of 20:38:00 [facility] Body temperature 2019-09-03 36.94 Trice University of 20:38:00 [facility] Respiratory rate 2019-09-03 16 /min [facility] of 20:38:00 [facility] Body height 2019-09-03 154.9 cm University of 20:38:00 [facility] Body weight 2019-09-03 77.764 kg University of 20:38:00 [facility] BMI 2019-09-03 32.39 kg/m2 University of 20:38:00 [facility] Systolic blood 2020-07-27 123 mm[Hg] Location: [facility]; [facility] of pressure 13:24:00 Position: [place] [facility] Diastolic blood 2020-07-27 86 mm[Hg] Location: [facility]; [facility] of pressure 13:24:00 Position: [facility] Body height 2020-07-27 61 [in_us] [facility] 13:24:00 [facility] Weight 2020-07-27 217.25 [lb_av] [facility] 13:24:00 [facility] Body mass index 2020-07-27 41.05 kg/m2 University o f (BMI) [Ratio] 13:24:00 [facility] Body temperature 2020-07-27 97.3 [degF] Method: [facility] 13:24:00 Temporal [facility] Heart Rate 2020-07-27 82 /min [facility] 13:24:00 [facility] Systolic blood 2020-06-29 117 mm[Hg] Location: E; [facility] 14:22:00 Position: [place] [facility] Diastolic blood 2020-06-29 75 mm[Hg] Location: [facility]; [facility] 14:22:00 Position: [facility] Body height 2020-06-29 61 [in_us] [facility] 14:22:00 [facility] Weight 2020-06-29 212 [lb_av] [facility] 14:22:00 [facility] Body mass index 2020-06-29 40.06 kg/m2 University o f (BMI) [Ratio] 14:22:00 [facility] Heart Rate 2020-06-29 80 /min [facility] 14:22:00 [facility] Body temperature 2020-06-29 97.5 [degF] Method: [place] [facility] 14:22:00 Temporal [facility] Systolic blood 2020-03-31 108 mm[Hg] Location: E; [facility] 13:58:00 Position: [facility] Diastolic blood 2020-03-31 72 mm[Hg] Location: [facility]; [facility] 13:58:00 Position: [facility] Body height 2020-03-31 61 [in_us] [facility] 13:58:00 [facility] Weight 2020-03-31 218 [lb_av] [facility] 13:58:00 [facility] Body mass index 2020-03-31 41.19 kg/m2 University o f (BMI) [Ratio] 13:58:00 [facility] Body temperature 2020-03-31 97.5 [degF] Method: [facility] 13:58:00 Temporal [facility] Heart Rate 2020-03-31 98 /min [facility] 13:58:00 [facility] Systolic blood 2020-03-24 128 mm[Hg] Location: E; [facility] 13:45:00 Position: [facility] Diastolic blood 2020-03-24 74 mm[Hg] Location: [place]; [facility] 13:45:00 Position: [facility] Body height 2020-03-24 61 [in_us] [facility] 13:45:00 [facility] Weight 2020-03-24 214 [lb_av] [facility] 13:45:00 [facility] Body mass index 2020-03-24 40.44 kg/m2 University o f (BMI) [Ratio] 13:45:00 [facility] Heart Rate 2020-03-24 85 /min [facility] 13:45:00 [facility] Systolic blood 2020-02-18 111 mm[Hg] Location: [facility]; [facility] 14:24:00 Position: [place] [facility] Diastolic blood 2020-02-18 75 mm[Hg] Location: [facility]; [facility] 14:24:00 Position: [facility] Body height 2020-02-18 61 [in_us] [facility] 14:24:00 [facility] Weight 2020-02-18 209 [lb_av] [facility] 14:24:00 [facility] Body mass index 2020-02-18 39.49 kg/m2 University o f (BMI) [Ratio] 14:24:00 [place] [facility] Body temperature 2020-02-18 97.1 [degF] Method: [facility] 14:24:00 [facility] Heart Rate 2020-02-18 81 /min [facility] 14:24:00 [facility] Heart Rate 2020-01-21 76 /min [facility] 16:04:00 [facility] O2 SAT 2020-01-21 97 % [facility] 16:04:00 [facility] Systolic blood 2020-01-21 110 mm[Hg] Location: [facility]; [facility] 15:44:00 Position: [place] [facility] Diastolic blood 2020-01-21 70 mm[Hg] Location: [facility] 15:44:00 Position: [place] [facility] Heart Rate 2020-01-21 84 /min [facility] 15:44:00 [facility] Body height 2020-01-21 61 [in_us] [facility] 15:44:00 [facility] Weight 2020-01-21 202.25 [lb_av] [facility] 15:44:00 [facility] Body mass index 2020-01-21 38.22 kg/m2 University o f (BMI) [Ratio] 15:44:00 [facility] Body temperature 2020-01-21 97.1 [degF] Method: [facility] 15:44:00 [facility] Systolic blood 2020-01-14 113 mm[Hg] Location: [facility]; [facility] 13:13:00 Position: [place] [facility] Diastolic blood 2020-01-14 75 mm[Hg] Location: [facility]; [facility] 13:13:00 Position: [facility] Body height 2020-01-14 61 [in_us] University 13:13:00 [facility] Weight 2020-01-14 199.375 [lb_av] University o f 13:13:00 [facility] Body mass index 2020-01-14 37.67 kg/m2 University o f (BMI) [Ratio] 13:13:00 [facility] Body temperature 2020-01-14 98.3 [degF] Method: [facility] 13:13:00 Tympanic [facility] Heart Rate 2020-01-14 88 /min [facility] 13:13:00 [facility] Systolic blood 2019-11-30 106 mm[Hg] Location: [facility]; [facility] 14:06:00 Position: [facility] Diastolic blood 2019-11-30 73 mm[Hg] Location: [facility]; [facility] 14:06:00 Position: [facility] Body height 2019-11-30 61 [in_us] [facility] 14:06:00 [facility] Weight 2019-11-30 191 [lb_av] [facility] 14:06:00 [facility] Body mass index 2019-11-30 36.09 kg/m2 University o f (BMI) [Ratio] 14:06:00 [facility] Heart Rate 2019-11-30 83 /min [facility] 14:06:00 [place] [facility] Procedure Date / Time Performing Clinician Source Performed CONSENT FOR CONTRACEPTION 2021-04-04 05:01:00 Doctor Unassigned, [facility] [place] [facility] POCT TEST 2021-04-04 00:00:00 Jhon Liv [facility] POCT URINALYSIS W/O 2021-04-04 00:00:00 Jhon [facility] SPECIFIC GRAVITY [facility] POCT GRP A STREP 2021-02-13 15:49:00 Fransisco Escobar [facility] (MOLECULAR) [facility] POCT FLU A AND B 2020-12-10 14:54:00 Skyler Moser [facility] ([facility]) [facility] POCT GRP A STREP 2020-12-10 14:50:00 Skyler Moser [facility] ([facility]) [facility] DISCLOSURE AND CONSENT, 2020-11-21 05:01:00 Doctor Unassigned, [facility] MEDICAL AND SURGICAL [place] [facility] PROCEDURES POCT TEST 2020-11-21 00:00:00 Olman Sheth [facility] BASIC METABOLIC PANEL (NA, 2020-11-09 18:30:00 Ami Perry [facility] K, CL, CO2, GLUCOSE, BUN, Medica l Branch CREATININE, [place]) CBC WITH DIFF 2020-11-09 18:30:00 Ami Perry [facility] URINALYSIS 2020-11-09 18:30:00 Ami Perry [facility] HB ABO GROUPING 2020-11-09 18:29:00 Ami Perry [facility] POCT TEST 2020-11-09 18:19:00 Ami Perry [facility] CONSENT/REFUSAL FOR 2020-11-09 17:47:24 Doctor Unassigned, [facility] DIAGNOSIS AND TREATMENT [place] [facility] POCT URINALYSIS W/O 2020-10-24 00:00:00 Olman Sheth [facility] SPECIFIC GRAVITY [facility] US OVARY TORSION 2020-10-20 03:54:07 Garrett Lares [facility] LIPASE 2020-10-20 02:31:00 Garrett Lares [facility] COMP. METABOLIC PANEL 2020-10-20 02:31:00 Garrett Lares [facility] ([id number]) [facility] CBC WITH DIFF 2020-10-20 02:31:00 Garrett Lares [facility] PROTHROMBIN TIME / INR 2020-10-20 02:31:00 Garrett Lares [facility] URINALYSIS 2020-10-20 02:31:00 Garrett Lares [facility] POCT TEST 2020-10-20 01:42:00 Garrett Lares [facility] [QL] CBC (INCLUDES 2020-07-04 00:00:00 [facility] DIFF/PLT) Physicians [Q] VON [place] 2020-07-04 00:00:00 [facility] COMPREHENSIVE PANEL Physicians [QL] PROTHROMBIN W/INR + 2020-07-04 00:00:00 [facility] PARTIAL THROMBOPLASTIN Physician s TIMES . [facility] - PAP w/reflex 2020-06-29 00:00:00 [facility] HPV if ASC-US or above Physician s POCT GRP A STREP 2020-06-06 16:16:00 Shawn [facility] (MOLECULAR) [facility] POCT FLU A AND B 2020-06-06 16:03:00 Shawn [facility] ([facility]) [facility] XR ANKLE 3+ VW RIGHT 2020-05-27 17:21:16 Shawn [facility] XR SHOULDER 2+ VW RIGHT 2020-05-27 17:21:16 [facility] XR WRIST 3+ VW LEFT 2020-05-27 17:21:16 Fransisco Escobar [facility] COVID-19 (ID NOW RAPID 2020-04-09 16:05:00 [facility]th [facility] 2020-04-09 15:53:00 Olman Sheth [facility] ADC ONLY - FERN TEST 2020-04-09 15:53:00 Olman Sheth [facility] [QL] CMP W/EGFR 2020-03-24 00:00:00 [facility] Physicians [Q] BILE ACIDS, 2020-03-24 00:00:00 [facility] FRACTIONATED AND TOTAL, Physicia ns [QL] CULTURE, URINE, 2020-03-24 00:00:00 [facility] ROUTINE Physicians US PELVIS > 14 2020-03-11 21:08:41 Joey Mendoza [facility] ADC ONLY - FERN TEST 2020-03-11 19:03:00 Joey [facility] CONSENT/REFUSAL FOR 2020-03-11 17:53:01 Doctor Unassigned, [facility] DIAGNOSIS AND TREATMENT [place] [facility] . [facility] - 2020-03-09 00:00:00 [facility] COVID-19/SARS-Cov-2 Physicians NOTICE OF PRIVACY 2020-03-07 01:17:26 Doctor Unassigned, [facility] PRACTICES [place] [facility] BASIC METABOLIC PANEL (NA, 2020-03-07 01:11:00 Mona Saxena [facility] K, CL, CO2, GLUCOSE, BUN, Medica l Branch CREATININE, [place]) CBC WITH DIFFERENTIAL 2020-03-07 01:11:00 Mona Saxena [facility] Medical Branch COVID-19 (ID NOW RAPID 2020-03-07 01:11:00 Mona Saxena [facility] TESTING) Medical Branch CONSENT/REFUSAL FOR 2020-03-06 15:19:43 Doctor Unassigned, [facility] DIAGNOSIS AND TREATMENT [place] [facility] [Q] GLUCOSE, GESTATIONAL 2020-02-18 00:00:00 [facility] SCREEN ([id number] CUTOFF Physicia ns [QL] CBC (INCLUDES 2020-02-18 00:00:00 [facility] DIFF/PLT) Physicians NOTICE OF PRIVACY 2020-02-08 02:22:40 Doctor Unassigned, [facility] PRACTICES [place] [facility] CONSENT/REFUSAL FOR 2020-02-08 02:22:25 Doctor Unassigned, [facility] DIAGNOSIS AND TREATMENT [place] [facility] EKG w/Rhythm Strip 2020-01-21 00:00:00 [facility] Physicians [QL] URINALYSIS, COMPLETE 2020-01-21 00:00:00 [facility] Physicians [Q] GLUCOSE, GESTATIONAL 2020-01-21 00:00:00 [facility] SCREEN ([id number] CUTOFF Physicia ns [QL] CBC (INCLUDES 2020-01-21 00:00:00 [facility] DIFF/PLT) Physicians [QL] CULTURE, URINE, 2020-01-21 00:00:00 [facility] ROUTINE Physicians . [facility] - Affirm VPIII 2020-01-15 00:00:00 [facility] (BV Panel) Physicians URINALYSIS 2019-12-15 01:02:00 Garrett Lares [facility] LIPASE 2019-12-14 23:44:00 Mg Stallworth [facility] TROPONIN I 2019-12-14 23:44:00 Mg Stallworth [facility] COMP. METABOLIC PANEL 2019-12-14 23:44:00 Mg Stallworth [facility] ([id number]) Medical [place] CBC WITH DIFFERENTIAL 2019-12-14 23:44:00 Mg Stallworth [facility] PROTHROMBIN TIME / INR 2019-12-14 23:44:00 Mg [place] [facility] ACTIVATED PARTIAL THRMPLAS 2019-12-14 23:44:00 Mg Stallworth [facility] CORONAVIRUS COVID-19 2019-12-14 23:44:00 Mg Stallworth [facility] TESTING [facility] NOTICE OF PRIVACY 2019-12-14 21:11:25 Doctor Unassigned, [facility] PRACTICES [place] [facility] CONSENT/REFUSAL FOR 2019-12-14 21:08:11 Doctor Unassigned, [facility] DIAGNOSIS AND TREATMENT [place] [facility] [Q] UNHBOZZ-7-RYOGOTYDR 2019-11-30 00:00:00 [facility] DEHYDROGENASE, QUANT. Physicians [Q] HEMOGLOBINOPATHY 2019-11-30 00:00:00 [facility] EVALUATION Physicians [Q] HIV AB, HIV 1/2, EIA, 2019-11-30 00:00:00 [facility] WITH REFLEXES Physicians [Q] OBSTETRIC PANEL 2019-11-30 00:00:00 [facility] Physicians [Q] TREPONEMA PALLIDUM AB, 2019-11-30 00:00:00 [facility] PARTICLE AGGLUTINATION Physician s [QL] CULTURE, URINE, 2019-11-30 00:00:00 [facility] ROUTINE Physicians [QL] URINALYSIS, COMPLETE 2019-11-30 00:00:00 [facility] Physicians [Q] IRON, TIBC AND 2019-11-30 00:00:00 [facility] FERRITIN PANEL Physicians [QL] FOLATE, SERUM 2019-11-30 00:00:00 [facility] Physicians . [facility] - GC/Chlamydia 2019-11-30 00:00:00 [facility] Physicians . [facility] - Affirm VPIII 2019-11-30 00:00:00 [facility] (BV Panel) Physicians URINALYSIS 2019-11-27 15:14:00 Suman Sun [facility] US PELVIS > 14 2019-11-27 15:05:58 Suman Sun [facility] CONSENT/REFUSAL FOR 2019-11-27 14:10:39 Doctor Unassigned, [facility] DIAGNOSIS AND TREATMENT [place] [facility] [place] ASSIGNMENT OF BENEFITS 2019-11-16 14:34:05 Doctor Unassigned, [facility] Name [facility] FLU VACC ([id number]), 6+ 2019-11-16 14:11:55 Olman Sheth [facility] MONTHS, IM, QUAD Medical Branch MEDICATION CORRESPONDENCE 2019-10-28 06:01:00 Doctor Unaaurelio, [facility] [place] [facility] Branch POCT URINALYSIS 2019-10-22 19:04:00 Fernandez Stiles [facility] POCT URINALYSIS 2019-10-01 16:48:00 Fernandez Stiles [facility] US FIRST 2019-09-16 14:37:56 Mg Stallworth [facility] TRIMESTER LESS THAN 14 Medical B ranch WEEKS WITH TRANSVAGINAL HEPATIC FUNCTION PANEL 2019-09-16 12:48:00 Mg Stallworth [facility] ([id number]) (ALB,T.PRO,BILI Medical Branch T,BU/BC,ALT,AST,ALK PHOS) BASIC METABOLIC PANEL (NA, 2019-09-16 12:48:00 Mg Stallworth [facility] K, CL, CO2, GLUCOSE, BUN, Medica l Branch CREATININE, CA) TOTAL BETA HCG ASSAY 2019-09-16 12:48:00 Mg Stallworth [facility] CBC WITH DIFFERENTIAL 2019-09-16 12:48:[address] [facility] PROTHROMBIN TIME / INR 2019-09-16 12:48:00 Mg Stallworth [facility] ACTIVATED PARTIAL THRMPLAS 2019-09-16 12:48:00 Mg Stallworth [facility] BENJAMIN [facility] HB ABO GROUPING 2019-09-16 12:48:00 Mg Stallworth o f [facility] URINALYSIS 2019-09-16 12:35:00 Mg Stallworth [place] [facility] POCT TEST 2019-09-16 12:35:00 [facility]USAL FOR 2019-09-16 12:18:18 Doctor Unassigned, [facility] DIAGNOSIS AND TREATMENT [facility] NOTICE OF PRIVACY 2019-09-09 19:06:44 Doctor Unaaurelio, [facility] PRACTICES [facility] CONSENT/REFUSAL FOR 2019-09-09 19:06:32 Doctor Vaughn, [facility] DIAGNOSIS AND TREATMENT [facility] CBC WITH DIFFERENTIAL 2019-09-03 22:05:[address] [facility] RUBELLA SCREEN IGG 2019-09-03 22:05:00 Fernandez Stiles [facility] VZV ANTIBODY SCREEN 2019-09-03 22:05:00 Fernandez Stiles [facility] HEPATITIS B SURFACE 2019-09-03 22:05:00 Fernandez Stiles [facility] GC & CHLAMYDIA AMPLIFIED 2019-09-03 22:05:00 Fernandez Stiles [facility] ASSAY [facility] PAP SMEAR-LIQUID BASED-CP 2019-09-03 22:05:00 Fernandez Stiles [facility] HIV 1/2 AG-AB WITH REFLEX 2019-09-03 22:03:00 Fernandez Stiles [facility] GALV ONLY - SYPHILIS 2019-09-03 22:03:00 [facility] I[facility]IGM [facility] HB ABO GROUPING 2019-09-03 21:40:00 Fernandez Stiles [facility] POCT URINALYSIS W/O 2019-09-03 20:42:00 Fernandez Stiles [facility] SPECIFIC GRAVITY [facility] POCT TEST 2019-09-03 20:40:00 Fernandez Stiles Uni versity of [facility] History of Tonsillectomy Univers [facility] Physicians History of Dilation [facility] History of Appendectomy [facility] Plan of Care Planned Activity Planned Date Details Comments Source Future Scheduled Test 2020-03-21 . [facility] 00:[facility]:00 COVID-19/SARS-Cov Physicians -2 [code = . [facility] - COVID-19/SARS-Cov -2] Diagnostic Test 2020-01-15 . [facility] - Affirm [facility] Pending 00:00:00 VPIII (BV Panel) Physicians [code = . [facility] - Affirm VPIII (BV Panel)] Encounters Start End Encounter Admission Attending Care Care Encounter Source Date/Time Date/Time Type Type Clinicians Facility Department ID 2021-06-25 [facility] [id number] Univers 06:39:02 ity of [facility] 2021-06-25 Emergency [facility] [id number] Univers 01:14:06 ity of [facility] 2021-06-23 Outpatient P [facility] JOHN [id number] Univers 12:39:51 ity of [facility] 2021-06-23 Outpatient P [facility] JOHN [id number] Univers 07:27:22 ity of [facility] 2021-06-23 Outpatient P [facility] JOHN [id number] Univers 07:22:37 ity of [facility] 2021-06-23 Emergency [facility] [id number] Univers 06:14:22 ity of [facility] 2021-06-23 Emergency [facility] [id number] Univers 06:13:02 ity of [facility] 2021-06-23 Emergency [facility] [id number] Univers 00:55:53 ity of [facility] 2021-06-22 Emergency [facility] [id number] Univers 18:30:20 ity [facility] 2021-04-05 2021-04-05 Maged Tsai [facility] [id number] Univers 00:00:00 00:00:00 Management Liv Rai [id number] [place]Leon[id number] [phone] [address] 2021-04-04 2021-04-04 Office Junaidcarlosolivier [facility] [id number] [id number] Univers 14:52:07 15:38:17 Visit Liv Cecelia [id number] i ty [id number] [phone] [address] 2021-04-04 2021-04-04 Outpatient R [facility] [id number] Univers 14:30:00 14:30:00 LIV [id number] y [facility] 2021-04-04 2021-04-04 Outpatient R [facility] [id number] Univers 14:30:00 14:30:00 LIV [facility] 2021-04-04 2021-04-04 Orders Doctor LOUISE 1.2.840.114 [id number] Univers 00:00:00 00:00:00 Only Unassigned, ADRIANO [id number] ity of [place] [facility] [id number] Wilbert as [phone] [address] 2021-02-13 2021-02-13 Urgent Provider, [facility] 1.2.352.644 [id number] 10:32:50 10:52:50 Care [facility] [id number] Care [place] [id number] Professio [phone] [place] [address] [address] One 2021-02-13 2021-02-13 Urgent Provider, [facility] 1.2.840.114 [id number] Univers 10:32:50 10:52:50 Care Anene, [facility] [id number] ity of [place] [id number] Wilbert as Professio [phone] [address] Office Building One 2021-02-13 2021-02-13 Outpatient [facility] [id number] Univers 10:40:00 10:40:00 [id number] ity [facility] 2021-02-13 2021-02-13 Outpatient R [facility] [id number] Univers 10:40:00 10:40:00 FRANSISCO ity [facility] 2020-12-26 2020-12-26 Outpatient R [facility] [id number] Univers 09:30:00 09:30:00 [id number] ity [facility] 2020-12-26 2020-12-26 Outpatient R [facility] [id number] Univers 09:30:00 09:30:00 ity [facility] 2020-12-10 2020-12-10 Urgent Provider, [facility] [id number] 09:39:01 10:40:28 Care [facility] [id number] Care [place] [id number] Professio [phone] [place] [address] [address] One 2020-12-10 2020-12-10 Urgent Provider, [facility] 1.2.840.114 [id number] Univers 09:39:01 10:40:28 Care Alessandro, [facility] [id number] ity of [place] [id number] Wilbert as Professio [phone] Sd dical [address] Office Building One 2020-12-10 2020-12-10 Outpatient [facility] [id number] Univers 09:40:00 09:40:00 [id number] ity [facility] 2020-12-10 2020-12-10 Outpatient [facility] [id number] Univers 09:40:00 09:40:00 LEATHA ity [facility] 2020-12-09 2020-12-09 Laboratory Lab, [facility] 1.2.840.114 [id number] 15:03:11 15:23:11 Only Fam Pob I Health [id number] [place] [id number] Professio [phone] nal [facility] Office Building One 2020-12-09 2020-12-09 Laboratory Lab, [facility] Fam Pob I [facility] 1.2. 840.114 [id number] Univers 15:03:11 15:23:11 Only Fransisco Escobar [facility] [id number] ity of [place] [id number] Wilbert as Professio [phone] Sd dical nal 044 [facility] One 2020-12-09 2020-12-09 Outpatient R [facility] [id number] Univers 11:00:00 11:00:00 GADIEL [id number] ity [facility] 2020-12-09 2020-12-09 [facility] [id number] Univers 11:00:00 11:00:00 GADIEL ity [facility] 2020-12-02 2020-12-02 [facility] [id number] Univers 09:30:00 09:30:00 [facility]EL [id number] [facility] 2020-12-01 2020-12-01 Telephone Olman Sheth [facility] 1.2.840.114 [id number] Univers 00:00:00 00:00:00 Kaitlynn Rai [id number] i [id number] [phone] Sd dical nal 134 [facility] 2020-12-01 2020-12-01 Telephone [facility] 1.2.840.114 [id number] Univers 00:00:00 00:00:00 Jose R Rai [id number] ity [id number] [phone] Sd dical nal 092 [facility] 2020-11-29 2020-11-29 Office [facility] 1.2.840.114 [id number] 14:53:58 15:44:52 Visit Jose R Rai [id number] [place] [id number] Professio [phone] [address] 2020-11-29 2020-11-29 Office [facility] 1.2.840.114 [id number] Univers 14:53:58 15:44:52 Visit Jose R Rai [id number] ity of [place] [id number] [phone] Sd dical nal 092 [facility] 2020-11-29 2020-11-29 Outpatient R [facility]SE [facility] [id number] Univers 15:00:00 15:00:00 JOSE R STERLING [id number] ity of [facility] 2020-11-29 2020-11-29 Outpatient R JOSE R [facility] [id number] Univers 15:00:00 15:00:00 JOSE R STERLING ity [facility] 2020-11-25 2020-11-25 Outpatient R [facility] [id number] Univers 13:30:00 13:30:00 WONDIFUL [id number] ity o f [facility] 2020-11-21 2020-11-21 Office [facility] 1.2.193.269 [id number] Univers 08:29:06 10:03:28 Visit Kaitlynn Rai [id number] i ty [id number] [phone] [facility] 134 [facility] 2020-11-21 2020-11-21 Outpatient R MERYL [facility] [id number] Univers 08:30:00 08:30:00 [id number] ity of [facility] 2020-11-21 2020-11-21 Outpatient R [facility]L [facility] [id number] Univers 08:30:00 08:30:00 ity of [facility] 2020-11-21 2020-11-21 Letter Olman Sheth [facility] 1.2.740.305 [id number] Univers 00:00:00 00:00:00 (Out) Kaitlynn Rai [id number] i ty [id number] [phone] [facility] 134 [facility] 2020-11-21 2020-11-21 Orders Doctor GIL 1.2.840.114 [id number] Univers 00:00:00 00:00:00 Only Unassigned, ADRIANO [id number] ity [place] [facility] [id number] Wilbert as [phone] [facility] 009 Branch 2020-11-15 2020-11-15 Patient Felice [facility] 1.2.840.114 [id number] Univers 00:00:00 00:00:00 Outreach Kvng PRIMARY [id number] i ty of [facility] [id number] [place] [phone] Sd dical [address] 2020-11-09 2020-11-09 Emergency [facility] 1.2.840.114 [id number] Univers 12:59:00 14:50:00 Ami Rai [id number] ity [place] [id number] [place] [phone] [facility] [address] [place] 2020-11-09 2020-11-09 Outpatient [facility] [id number] Univers 10:20:00 10:20:00 [id number] ity of [facility] 2020-11-09 2020-11-09 Telephone Nurse, Enio [facility] 1.2.840.114 [id number] Univers 00:00:00 00:00:00 Urgent Care Health [id number] ity of Surgical [id number] Wilbert as Specialti [phone] Sd dical es [address] [facility] 2020-10-24 2020-10-24 Office Olman Sheth [facility] 1.2.257.900 [id number] Univers 08:55:05 10:04:55 Visit Kaitlynn Rai [id number] i ty [place] [id number] [phone] Sd dical nal [address] [facility] 2020-10-24 2020-10-24 Outpatient [facility] [id number] Univers 09:00:00 09:00:00 [id number] ity of [facility] 2020-10-24 2020-10-24 Outpatient [facility] [id number] Univers 09:00:00 09:00:00 ity of [facility] 2020-10-22 2020-10-22 Urgent Provider, [facility] 1.2.840.114 [id number] Univers 12:05:47 13:21:43 Care AlessandroLeatha [facility] [id number] ity [facility] [id number] Wilbert as Professio [phone] [facility] [address] [place] Office Building One 2020-10-22 2020-10-22 Outpatient [facility] [id number] Univers 12:00:00 12:00:00 [id number] ity [facility] 2020-10-22 2020-10-22 Outpatient [facility] [id number] Univers 12:00:00 12:00:00 LEATHA [facility] 2020-10-19 2020-10-19 Emergency risc, [facility] 1.2.556.671 [id number] Univers 19:31:00 22:26:00 Garrett Medrano [place] [id number] ity [facility] [id number] [place] [phone] [facility] [address] [place] 2020-10-19 2020-10-19 Telephone Olman Sheth [facility] 1.2.840.114 [id number] Univers 00:00:00 00:00:00 Cam [place] [id number] i ty [place] [id number] [phone] [facility] 134 [facility] 2020-08-20 2020-08-20 Outpatient [facility] [id number] Univers 19:00:00 19:00:00 [id number] ity [facility] 2020-08-20 2020-08-20 Outpatient [facility] [id number] Univers 19:00:00 19:00:00 [facility] 2020-07-27 2020-07-27 AppointAMY Trevino Obstetrics [id number] Univers 13:30:00 13:30:00 t; Mesfin TAVERAS and it y of Alberto HEAD s Amira TAVERAS M.D. Clinic ans 2020-07-11 2020-07-11 Appointmen [facility] [id number] Univers 15:00:00 15:00:00 t; Mesfin VELASCO of [place], [place] Mesfin VELASCO Physi ci [facility] 2020-07-06 2020-07-06 Appointmen JELLYAMADOEdwinaLeslieNae [facility] Obstetrics [id number] Univers 13:00:00 13:00:00 t; renata FLORES M.D. Gynecology Wilbert as MARK Continuity [facility] 2020-07-05 2020-07-05 Appointmen [facility] [id number] Univers 09:00:00 09:00:00 t; Mesfin VELASCO [place], [place] Mesfin VELASCO Physi ci [facility] 2020-07-04 2020-07-04 Appointmen ADULT, [facility] [id number] Univers 15:30:00 15:30:00 t; ADULT, HEMOPHILIA Hemophilia ity of HEMOPHILIA and [place] Thrombophil Phys ici ia [facility] 2020-07-01 2020-07-01 Urgent Provider, [facility] 1.2.840.114 [id number] Univers 18:18:44 18:38:44 [address] [facility] [id number] [facility] [id number] Wilbert as Rosendo [phone] [address] Office Building One 2020-07-01 2020-07-01 Outpatient [facility] [id number] Univers 18:20:00 18:20:00 Ragini ity [facility] 2020-07-01 2020-07-01 Outpatient [facility] [id number] Univers 18:20:00 18:20:00 LOUISE leija [facility] 2020-06-29 2020-06-29 Appointmen DOLORES [facility] Women's [id number] Univers 14:30:00 14:30:00 t; MATTHEW BERNAL [facility] ity summer CASTRO M.D. [facility] Physici [facility] 2020-06-06 2020-06-06 Urgent Provider, [facility] 1.2.840.114 [id number] Univers 10:43:16 11:42:30 Care Fransisco [facility] [id number] ity of [place] [id number] Wilbert as Professio [phone] [address] 2020-06-06 2020-06-06 Outpatient [facility] [id number] Univers 10:40:00 10:40:00 [id number] ity of [facility] 2020-06-06 2020-06-06 Outpatient [facility] [id number] Univers 10:40:00 10:40:00 ity of [facility] 2020-06-01 2020-06-01 Appointmen AMY SILVERIO [facility] [id number] Univers 10:45:00 10:45:00 t; JJ SILVERIO, ity summer GARDNER M.D. [place] Mesfin Physici [facility] 2020-05-27 2020-05-27 [facility] 1.2.840.114 [id number] Univers 11:49:39 23:59:00 Encounter Fransisco Rai [id number] ity of [place] 4.2.7.2.686 [facility] [phone] [facility] [address] [place] [address] 2020-05-27 2020-05-27 Urgent Provider, [facility] 1.2.840.114 [id number] Univers 10:15:33 10:35:33 Care Fransisco Escobar Health [id number] ity of [place] 4.2.7.2.686 Wilbert as Professio [phone] [address] 2020-05-27 2020-05-27 Outpatient [facility] [id number] Univers 10:20:00 10:20:00 ity of [facility] 2020-05-27 2020-05-27 Outpatient R [facility] [id number] Univers 10:20:00 10:20:00 ity of [facility] 2020-05-27 2020-05-27 Telephone Provider, [facility] 1.2.840.114 [id number] Univers 00:00:00 00:00:00 [facility] [id number] ity of Care [place] [id number] Wilbert as Professio [phone] Sd dical nal 0[address] Office Building One 2020-05-13 2020-05-13 Telephone [facility] 1.2.856.430 [id number] Univers 00:00:00 00:00:00 Julissa [facility] [id number] ity of [place] 4.2.7.2.686 Wilbert as Professio [phone] Sd dical nal [address] Office Building One 2020-05-11 2020-05-11 Laboratory Lab, Adc Fam Pob I [facility] 1.. 840.114 [id number] Univers 16:52:53 17:12:53 Only Fransisco Escobar Health [id number] ity of [place] [id number] Wilbert as Professio [phone] Sd dical nal [address] [facility] One 2020-05-11 2020-05-11 Outpatient [facility] [id number] Univers 17:00:00 17:00:00 [id number] ity of [facility] 2020-05-11 2020-05-11 Outpatient [facility] [id number] Univers 17:00:00 17:00:00 ity [facility] 2020-04-29 2020-04-29 Appointmen MYA C/S [facility] UTP [id number] Univers 10:00:00 10:00:00 t; heladio ROQUE of [place]/S Kenya garcia 2020-04-27 2020-04-27 Appointmen AMY ORLANDO UTP [id number] Univers 13:30:00 13:30:00 t; Felipe HERNANDEZ M.D. [place] JORDAN, Physici M.D. ans 2020-04-25 2020-04-25 Outpatient Raju_P [facility] [id number] [place] 10:39:00 10:39:00 [id number] [facility] 2020-04-14 2020-04-14 Emergency E PATY, [facility] [id number] [facility] 22:58:00 22:58:00 RALPH 2020-04-09 2020-04-09 [facility] Olman Sheth [facility] 1..840.114 [id number] Univers 09:52:00 12:23:00 Encounter Kaitlynn Rai [id number] ity of [place] 4.2.7.2.686 [facility] [phone] [facility] 083 Branch 2020-03-31 2020-03-31 Appointmen WILL, [facility] Obstetrics [id number] Univers 14:30:00 14:30:00 t; PAT, and ity of Leah SOLIS Gynecology [facility] PAT, Continuity Physi ci D.O. Clinic ans 2020-03-31 2020-03-31 Appointmen SKILLED LABOR, UTP UTP [id number] Univers 13:00:00 13:00:00 t; SKILLED LABOR, ROOM3 ity of ROOM3 [facility] 2020-03-27 2020-03-28 Emergency E DAVID, [facility] [id number] [facility] 21:39:00 01:16:00 SUNEET 2020-03-24 2020-03-24 Appointmen SKILLED LABOR, [facility] UTP [id number] Univers 15:15:00 15:15:00 t; SKILLED LABOR, ROOM2 ity of ROOM2 [facility] 2020-03-24 2020-03-24 Appointmen Reji COPELAND, [facility] Obstetrics [id number] Univers 13:30:00 13:30:00 t; Mesfin COPELAND and ity summer Mendoza M.D. Gynecology [facility] Physi ci Clinic ans 2020-03-11 2020-03-11 [facility] 1.2.840.114 [id number] Univers 13:19:00 16:40:00 Encounter Joey Rai [id number] ity of [place] 4.2.7.2.686 [facility] [phone] [facility] [address]83 [address] 2020-03-11 2020-03-11 Orders Doctor GIL 1.2.840.114 [id number] Univers 00:00:00 00:00:00 Only Unassigned, ADRIANO 350.1.13.10 ity of [place] [facility] 4.2.7.2.686 [facility] [phone] [facility] 009 Branch 2020-03-09 2020-03-09 Appointmen [facility] [id number] Univers 11:30:00 11:30:00 t; KAVIN, heladio of [place] DE DIOS [place] Mando VALE i, M.D. ans 2020-03-06 2020-03-06 Emergency [facility] 1.2.482.718 [id number] Univers 19:46:10 22:17:00 Mona Medrano [place] [id number] i ty of [place] 4.2.7.2.686 [facility] [phone] [facility] 084 Branch 2020-03-06 2020-03-06 Emergency [facility] 1.2.148.311 [id number] Univers 10:40:51 12:09:00 Mona S [place] 350.1.13.10 i ty of [place] 4.2.7.2.686 [facility] [phone] [facility] 084 Branch 2020-02-18 2020-02-18 Appointmen STEVENSON [facility] Obstetrics [id number] Univers 15:00:00 15:00:00 t; Mesfin STONE and it y of ST[place]EN[place], [facility] CHASE, Continuity Physi ci [facility] ans 2020-02-12 2020-02-12 Appointmen SKILLED LABOR [facility] Obstetrics [id number] Univers 13:00:00 13:00:00 t; SKILLED LABOR, ROOM3 and ity of ROOM3 Gynecology [facility] Physi ci Clinic ans 2020-02-07 2020-02-07 Emergency [facility] hospital [id number] Univers 21:34:00 22:09:00 Garrett Rai [id number] ity of [place] [id number] [facility] [place] [phone] [facility] 084 Branch 2020-02-07 2020-02-07 Orders Doctor GIL [id number] Univers 00:00:00 00:00:00 Only Unassigned, ADRIANO [id number] ity of [place] [facility] [id number] Wilbert [id number] [facility] 009 Branch 2020-02-04 2020-02-04 Appointmen [place], [facility] [id number] Univers 13:30:00 13:30:00 t; ELIF ECKERT, heladio of [place] [facility] M.D. Physici ans 2020-01-21 2020-01-21 Appointmen [facility], [facility] [id number] Univers 16:00:00 16:00:00 t; WALK-INS ity o f [place], [place] [facility] 2020-01-21 2020-01-21 Appointmen KATIE, [facility] Obstetrics [id number] Univers 15:30:00 15:30:00 t; FITZ, and ity of [place] Gy[place] FITZ, Continuity Physi ci D.O. Clinic ans 2020-01-15 2020-01-15 Appointmen SKILLED LABOR, [facility] [id number] Univers 13:00:00 13:00:00 t; SKILLED LABOR, ROOM4 ity of ROOM4 [place] [facility] 2020-01-14 2020-01-14 Appointmen CATE, [facility] Obstetrics [id number] Univers 13:45:00 13:45:00 t; Mesfin LIN and it y of CATE Gynecology Mick LIN, Continuity Physi ci M.D. Clinic ans 2020-01-13 2020-01-13 Outpatient [facility] [id number] -[id number] Univers 11:30:00 11:30:00 ity [facility] 2020-01-13 2020-01-13 Appointmen TERRELL, [facility] Psychiatry [id number] Univers 08:45:00 08:45:00 t; BURKE, Aditi i ty of Mesfin [facility] [place] [facility] i M.DClair ans 2020-01-07 2020-01-07 Outpatient [facility] [id number] -[id number] Univers 09:30:00 09:30:00 [id number] ity [facility] 2020-01-05 2020-01-05 Outpatient R [facility] [id number] Univers 10:30:00 10:30:00 [id number] ity of [facility] 2020-01-05 2020-01-05 Outpatient P [facility] [id number] Univers 10:30:00 10:30:00 ity [facility] 2019-12-30 2019-12-30 Outpatient [facility] [id number] -[id number] Univers 11:30:00 11:30:00 ity of [facility] 2019-12-30 2019-12-30 Outpatient P [facility] [id number] Univers 11:30:00 11:30:00 ity of [facility] 2019-12-29 2019-12-29 Case Lucero, [facility] 1.2.691.598 [id number] Univers 00:00:00 00:00:00 Management Elsa Y HEALTH 350.1.13.10 it[place] of [place] [phone] [address] 2019-12-29 2019-12-29 Telephone Shahid Arredondo [facility] .2.840.11 [id number] Univers 00:00:00 00:00:00 W Y HEALTH 350.1.13.10 i ty of CL[place] [id number] [address] 2019-12-28 2019-12-28 Appointmen ANGELO, [facility] [id number] Univers 13:30:00 13:30:00 t; Tiffany GREENBERG M.D. [place] Mando GREENBERG i, M.D. [facility] 2019-12-28 2019-12-28 Appointmen SKILLED LABOR, [facility] [id number] Univers 10:45:00 10:45:00 t; SKILLED LABOR, ROOM3 ity of ROOM3 [place] [facility]ic [facility] 2019-12-28 2019-12-28 Appointmen OB/, [facility] [id number] Univers 10:00:00 10:00:00 t; OB/MD, ity of [facility] Physici ans 2019-12-24 2019-12-24 Outpatient [facility] [id number] Univers 11:30:00 11:30:00 ity of [facility] 2019-12-24 2019-12-24 Outpatient R [facility] [id number] Univers 11:30:00 11:30:00 ANAI it y of S ZAMBRANO [facility] 2019-12-24 2019-12-24 Telephone Shahid Arredondo UN[facility]ERSIT .2.840.11 [id number] Univers 00:00:00 00:00:00 W HEALTH 350.1.13.10 i ty of [facility] 4.2.7.2.[place] [phone] [address] 2019-12-22 2019-12-22 Abstract Linsey, [facility] 1.2.840.114 [id number] Univers 00:00:00 00:00:00 Fernandez C SKILLED LABOR 350.1.13.10 ity of [facility] 4.2.7.2.686 Wilbert as MATERNAL [phone] Med ical & CHILD 107 [facility] 2019-12-19 2019-12-19 Olman Connolly [facility] 1.2.039.143 [id number] Univers 00:00:00 00:00:00 Kaitlynn Rai 350.1.13.10 i ty of [place] Professio [phone] Sd dic[address] 2019-12-18 2019-12-18 Production Clerks Supervisor Ultrasound, [facility] 1.2 .840.114 [id number] Univers 13:54:31 14:54:31 Visit Carina Meehan 350.1.13.10 ity of [place].2.[place] Profess[place] [phone] [address] 2019-12-18 2019-12-18 Outpatient R [facility] [id number] -[id number] Univers 14:00:00 14:00:00 [id number] ity of [facility] 2019-12-18 2019-12-18 Outpatient P [facility] [id number] Univers 14:00:00 14:00:00 ity [facility] 2019-12-17 2019-12-17 Olman Connolly [facility] 1.2.646.193 [id number] Univers 00:00:00 00:00:00 [place] 350.1.13.10 i ty of [place] 4.2.7.2.[place] Profess[place] [phone] Sd dical [address] 2019-12-16 2019-12-16 Outpatient [facility] [id number] -[id number] Univers 08:30:00 08:30:00 [id number] ity of [facility] 2019-12-14 2019-12-14 Emergency Arnaud [facility] 1.2.857.492 [id number] Univers 18:22:18 21:48:00 Garrett Rai 350.1.13.10 ity of [place] 4.2.7.2.686 [facility] [phone] [facility] [address] 2019-12-09 2019-12-09 Outpatient [facility] [id number] -[id number] Univers 13:00:00 13:00:00 [id number] ity of [facility] 2019-12-09 2019-12-09 Outpatient P PHAN [facility] [id number] Univers 13:00:00 13:00:00 ANAI it y of S, ZAMBRANO [facility] 2019-12-09 2019-12-09 Appointmen TERRELL, [facility] Psychiatry [id number] Univers 10:30:00 10:30:00 t; BURKE, Outpatient i ty of Mesfin [facility] - [place] BURKE [facility] Physic i Mesfin ans 2019-12-08 2019-12-08 Telephone Olman Sheth [facility] 1.2.840.114 [id number] Univers 00:00:00 00:00:00 Kaitlynn Rai 350.1.13.10 i ty of [place] 4.2.7.2.686 [facility] [phone] Sd dical [address] 2019-12-04 2019-12-04 Outpatient [facility] [id number] Univers 11:00:00 11:00:00 [id number] ity of [facility] 2019-12-04 2019-12-04 Outpatient R [facility] [id number] Univers 11:00:00 11:00:00 ity of [facility] 2019-12-04 2019-12-04 Telemedici Fellow, [facility] U N[facility]ERS[facility] 1.2.840.114 [id number] Univers 07:16:52 07:46:52 ne Visit Justice Gray [facility] 350.1.13.10 ity of Stan Ramos [facility] 4.2.7.2.686 [place] [phone] [facility] [address] 2019-12-04 2019-12-04 Abstract Akinsipe, [facility] 1.2.840.114 [id number] Univers 00:00:00 00:00:00 Fernandez Panchal SKILLED LABOR 350.1.13.10 ity [facility] 4.2.7.2.686 Wilbert as MATERNAL [phone] [facility] 107 [facility] 2019-12-02 2019-12-02 Outpatient R [facility] [id number] Univers 11:15:00 11:15:00 [id number] [facility] 2019-12-02 2019-12-02 Outpatient P [facility] [id number] Univers 11:15:00 11:15:00 KEYA [facility] 2019-12-02 2019-12-02 Production Clerks Supervisor [facility] 1.2 .840.114 [id number] Univers 10:11:12 10:41:12 Visit Zofia Morgan SKILLED LABOR 350.1. 13.10 ity [facility] 4.2.7.2.686 [place]bert as MATERNAL [phone] [facility]ILD 369 [facility] 2019-12-02 2019-12-02 Telemedici Consults, [facility] Pinky Fernandez Geneti [facility] 1.2.840.114 [id number] Univers 07:48:49 08:03:49 ne Visit Keya Mederos SKILLED LABOR 350.1.13. [place] [id number] Wilbert as MATERNAL [phone] [facility]ILD 109 [facility] 2019-11-30 2019-11-30 Appointmen AMY HURT Obstetrics [id number] Univers 14:00:00 14:00:00 t; Mesfin AC and it y of Alberto HURT Continuity Physi ci M.D. Clinic ans 2019-11-27 2019-11-27 Emergency X SUMAN SUN [facility] ERT [id number] Univers 09:28:09 10:48:00 ity [facility] 2019-11-27 2019-11-27 Emergency Suman Sun [facility] 1.2.840.114 [id number] Univers 09:28:09 10:48:00 T [place] 350.1.13.10 i ty of [place] 4[place]2.7.2.[place] [phone] [facility] [address] 2019-11-24 2019-11-24 Telephone Olman Sheth [facility] 1.2.840.114 [id number] Univers 00:00:00 00:00:00 Cam [place] 350.1.13.10 i ty of [place] [phone] Sd dical nal 134 [facility] 2019-11-23 2019-11-23 Telephone Olman Sheth [facility] 1.2.840.114 [id number] Univers 00:00:00 00:00:00 [place] 350.1.13.10 i ty of [place].2.[place] [phone] Sd dical nal [address] [place] [address] 2019-11-19 2019-11-19 Outpatient R AKINSIPE, [facility] [id number] Univers 09:30:00 09:30:00 FERNANDEZ [id number] ity o f [facility] 2019-11-19 2019-11-19 Outpatient R AKINSIPE, [facility] [id number] Univers 09:30:00 09:30:00 FERNANDEZ ity o f [facility] 2019-11-18 2019-11-18 Telephone Olman Sheth [facility] 1.2.840.114 [id number] Univers 00:00:00 00:00:00 [place] 350.1.13.10 i ty of [place] [phone] Sd dical nal 134 [facility] 2019-11-16 2019-11-16 Production Clerks Supervisor Bebe Maldonado Lab Main [facility] 1.2.8 40.114 [id number] Univers 09:31:47 09:46:47 Visit Dayanara Shethkendra Bailey [place] 350.1.13.10 ity of [place] 4.2.7.2.[place] [phone] Sd dical nal 353 [facility] 2019-11-16 2019-11-16 Initial Olman Sheth [facility] 1.2.044.594 [id number] Univers 07:53:29 09:11:59 [place] 350.1.13.10 ity of Visit [place] 4[place]2.7.2.[place] essio [phone] Sd dical nal 134 [facility] 2019-11-16 2019-11-16 Outpatient R [facility] [id number] Univers 08:00:00 08:00:00 [id number] ity of [facility] 2019-11-16 2019-11-16 Outpatient R MERYL [facility] [id number] Univers 08:00:00 08:00:00 ity of [facility] 2019-11-16 2019-11-16 Orders Doctor LOUISE 1.2.840.114 [id number] Univers 00:00:00 00:00:00 Only Unassigned, ADRIANO 350.1.13.10 ity of [place] [facility] 4.2.7.2.686 Wilbert as [phone] [address] 2019-11-12 2019-11-12 Telephone [facility] 1.2.840.114 [id number] Univers 00:00:00 00:00:00 Fernandez Panchal SKILLED LABOR 350.1.13.10 ity of [facility] 4.2.7.2.686 Wilbert as MATERNAL [phone] Med ical & CHILD [address] [place] [address] 2019-10-30 2019-10-30 Telephone [facility] 1.2.840.114 [id number] Univers 00:00:00 00:00:00 Gold Cochran SKILLED LABOR 350.1.13.10 it y of [facility] 4.2.7.2.686 [place]bert as MATERNAL [phone] Med ical & CHILD [address] [place] [address] 2019-10-28 2019-10-28 Orders Doctor LOUISE 1.2.840.114 [id number] Univers 00:00:00 00:00:00 Only Unassigned, ADRIANO 350.1.13.10 ity of [place] [facility] 4.2.7.2.686 Wilbert as [phone] [address] 2019-10-22 2019-10-22 Routine [facility] 1.2.163.259 [id number] Univers 12:58:53 13:21:27 Gold Cochran SKILLED LABOR 350.1.13.10 i ty of Visit [facility] 4.2.7.2.686 Wilbert as MATERNAL [phone] [facility] CH[facility] [address] [place] [address] 2019-10-22 2019-10-22 [facility] [id number] Univers 13:00:00 13:00:00 GOLD sonialuiza [facility] 2019-10-07 2019-10-07 Telephone [facility] 1.2.840.114 [id number] Univers 00:00:00 00:00:00 Gold Cochran SKILLED LABOR 350.1.13.10 it y of [facility] 4.2.7.2.686 Wilbert as MATERNAL [phone] [facility] [address] [place] [address] 2019-10-06 2019-10-06 Abstract [facility] 1.2.840.114 [id number] Univers 00:00:00 00:00:00 Fernandez Ansley SKILLED LABOR 350.1.13.10 ity of [facility]IONAL 4.2.7.2.686 [place] as MATERNAL [phone] [address] 2019-10-01 2019-10-01 Outpatient R [facility] [id number] Univers 10:30:00 11:17:13 TOSHIA leija [facility] 2019-10-01 2019-10-01 Routine Risk, Vcg-Llmrw-Rp/High [facility] 1. 2.840.114 [id number] Univers 10:25:41 11:17:13 Josselinantolin Toshia Herr SKILLED LABOR 350.1.13.1 0 ity of Visit REGIONAL 4.2.7.2.686 [place] as MATERNAL [phone] [facility] & CHILD [address] [place] [address] 2019-09-25 2019-09-25 Telephone [facility] 1.2.840.114 [id number] Univers 00:00:00 00:00:00 Fernandez C SKILLED LABOR 350.1.13.10 ity of REGIONAL 4.2.7.2.686 [place]bert as MATERNAL [phone] Med ical & CHILD [address] [place] [address] 2019-09-21 2019-09-[address] [facility], [facility] 1.2.275.034 [id number] Univers 00:00:00 00:00:00 Adalgisa-N SKILLED LABOR 350.1.13.10 ity of p/High [facility] 4.2.7.2.686 Wilbert as MATERNAL [phone] [facility] & CHILD [address] [place] [address] 2019-09-16 2019-09-16 Emergency Stallworth, [facility] 1.2.538.190 [id number] Univers 06:23:27 09:29:00 Mg Rai 350.1.13.10 i ty of [place].2.[place] [phone] [facility] [address] 2019-09-16 2019-09-16 Orders Doctor LOUISE 1.2.840.114 [id number] Univers 00:00:00 00:00:00 Only Unassigned, ADRIANO 350.1.13.10 ity of [place] [facility] 4.2.7.2.686 Wilbert as [phone] [facility] [address] 2019-09-10 2019-09-10 Production Clerks Supervisor Lab, Adalgisa [facility] 1.2.840. 114 [id number] Univers 08:27:30 08:37:34 Visit Fernandez Stiles SKILLED LABOR 350.1.13. 10 ity of [facility] 4.2.7.2.686 Wilbert as MATERNAL [phone] [facility] CHILD [address] [place] [address] 2019-09-10 2019-09-10 Telephone [facility], [facility] 1.2.840.114 [id number] Univers 00:00:00 00:00:00 Fernandez C SKILLED LABOR 350.1.13.10 ity of [facility] 4.2.7.2.686 Wilbert as MATERNAL [phone] [facility]ILD [address] [place] [address] 2019-09-09 2019-09-09 Emergency Hemanth, [facility] 1.2.607.658 [id number] Univers 14:54:07 16:49:00 Mona Rai 350.1.13.10 i ty of [place] 4[place]2.7.2.[place] [phone] [facility] [address] 2019-09-09 2019-09-09 Nurse LOUISE Rahman 1.2.840.114 [id number] Univers 00:00:00 00:00:00 Triage [place] 350.1.13.10 it y of HOSPITAL 4.2.7.2.686 Wilbert as [phone] [facility] [address] 2019-09-09 2019-09-09 Orders Doctor LOUISE 1.2.840.114 [id number] Univers 00:00:00 00:00:00 Only Unassigned, ADRIANO 350.1.13.10 ity of [place] [facility] 4.2.7.2.686 Wilbert as [phone] [facility] [address] 2019-09-04 2019-09-04 Emergency X TWIN, [facility] ERT [id number] Univers 18:41:20 21:40:00 GOPI ity [facility] 2019-09-03 2019-09-03 Initial Akinsipe, [facility] 1.2.841.928 [id number] Univers 13:41:22 15:43:50 Fernandez C SKILLED LABOR 350.1.13.10 ity of Visit [facility] 4.2.7.2.686 Wilbert as MATERNAL [phone] Med ical & CHILD [address] [place] [address] 2015-11-03 2015-11-03 Appointmen MFPauly, [facility] Obstetrics [id number] Univers 09:00:00 09:00:00 t; NOLVIA, FELLOW2 and ity of FELLOW2 Gynecology [facility] ans Results Test Description Test Time Test Comments Results Result Comments Source POCT TEST 2021-04-04 20:36:00 Test Item Value Reference Range Interpretation Comme nts POCT PREG (test code = 1605) Negative On board controls acceptable with C Line (test code = 3574) Yes POCT PREG LOT # (test code = 3575) POCT PREG TEST DATE (test code = 3576) [id number] 20:36:00 Test Item Value Reference Range Interpretation Comments POCT PREG (test code = 1605) Negative On board controls acceptable with C Yes Line (test code = 3574) POCT PREG LOT # (test code = 3575) POCT PREG TEST DATE (test code = 3576) [facility] URINALYSIS W/O SPECIFIC [id number] 20:10:00 Test Item Value Reference Range Interpretation Comments POCT PH U (test code = 3254) 5 mg/dl 5-8 POCT U LEUK EST (test code = Negative Negative - Negative 3263) POCT U NIT (test code = 3262) Negative Negative - Negative POCT U PROT (test code = 3259) Negative Negative - Negative POCT U GLU (test code = 3256) Negative Negative - Negative POCT U KETONE (test code = 3258) Negative Negative - Negative POCT U BLD (test code = 3257) Negative Negative - Negative [facility] URINALYSIS W/O SPECIFIC [id number] 20:10:00 Test Item Value Reference Range Interpretation Comments POCT PH U (test code = 3254) 5 mg/dl 5-8 POCT U LEUK EST (test code = Negative Negative - Negative 3263) POCT U NIT (test code = 3262) Negative Negative - Negative POCT U PROT (test code = 3259) Negative Negative - Negative POCT U GLU (test code = 3256) Negative Negative - Negative POCT U KETONE (test code = 3258) Negative Negative - Negative POCT U BLD (test code = 3257) Negative Negative - Negative [facility] GRP A STREP (MOLECULAR)2021-02-13 15:59:00 Test Item Value Reference Range Interpretation Comments POCT GP A STREP (test code = Negative Negative - Negative 38685-8) Lab Interpretation (test code = Normal 92203-6) [facility] FLU A AND B (MOLECULAR)2020-12-10 15:09:00 Test Item Value Reference Range Interpretation Comments POCT INFLUENZA A (test neg Negative - code = 3840) Negative POCT INFLUENZA B (test neg Negative - code = 3841) Negative KISHORE (test code = KISHORE) accurate development and interpretation of all internal controls Lab Interpretation Normal (test code = 07555-6) [facility] GRP A STREP (MOLECULAR)2020-12-10 15:01:00 Test Item Value Reference Range Interpretation Comments POCT GP A STREP (test neg Negative - code = 41858-9) Negative KISHORE (test code = KISHORE) accurate development and interpretation of all internal controls Lab Interpretation Normal (test code = 17876-2) [facility] [id number] 13:56:00 Test Item Value Reference Range Interpretation Comments POCT PREG (test code = 1605) Negative On board controls acceptable with C Yes Line (test code = 3574) POCT PREG LOT # (test code = 3575) POCT PREG TEST DATE (test code = 3576) [facility] [id number] 13:56:00 Test Item Value Reference Range Interpretation Comments POCT PREG (test code = 1605) Negative On board controls acceptable with C Yes Line (test code = 3574) POCT PREG LOT # (test code = 3575) POCT PREG TEST DATE (test code = 3576) [facility] - Type and Screen expires at midnight on the 3rd day after it was drawn. A current Type and Screen is required when RBCs are requested. For all other blood products, a Type and Screen performed during the current hospitalization i...2020-11-09 19:24:51 Test Item Value Reference Range Interpretation Comments ABO & RH (test code A Negative Performe d at [facility] = 20) Laboratory Serv [facility] [place] [address] Free: [phone] A No. [id number] IAT (test code = Negative Performed a t [facility] 1185) Laboratory [facility] [place], [place] [address]Toll Free: [phone] A No. [id number] [facility] Center[facility]inalysis2021-03-17 19:10:41 Test Item Value Reference Range Interpretation Comments APPEARANCE (test code = Cloudy Clear A 7788764644) COLOR (test code = Red Yellow A 6316026357) PH (test code = 4.8-8.0 5791988149) SP GRAVITY (test code = >=1.030 1.003-1.030 3615153927) GLU U QUAL (test code = Negative Negative 1091130249) BLOOD (test code = Large Negative A 1548820305) KETONES (test code = Negative Negative 1936869030) PROTEIN (test code = 100 mg/dL Negative A 2887-8) UROBILIN (test code = 0.2 mg/dL See_Comment [Auto mated message] 2251510049) The system [employer] generated this result transmit tessie reference range : 0-1.0 mg/dL. Th e reference range was not used to interpret this result as normal/abnormal . BILIRUBIN (test code = Small Negative A 0627057026) NITRITE (test code = Positive Negative A 0690275129) LEUK SELENA (test code = Negative Negative 7256944988) RBC/HPF (test code = See_Comment H [Autom ated message] 9208714677) The system [employer] generated this result transmit tessie reference range : 0 - 3 HPF. The refe rence range was not u sed to interpret th is result as normal/abnormal . WBC/HPF (test code = See_Comment [Autom ated message] 6596809207) The system [employer] generated this result transmit tessie reference range : 0 - 5 HPF. The refe rence range was not u sed to interpret th is result as normal/abnormal . BACTERIA (test code = Moderate Negative A 8388090955) MUCOUS (test code = Slight Negative LPF A 1251549858) SQ EPITH (test code = HPF 5008457208) Ictotest (test code = Positive 1857772500) Lab Interpretation (test Abnormal code = 59379-4) [facility] (NA, K, CL, CO2, GLUCOSE, BUN, CREATININE, CA)2020-11-09 18:57:46 Test Item Value Reference Range Interpretation Comments NA (test code = 138 mmol/L 135-145 5059233626) K (test code = 3.5 mmol/L 3.5-5.0 8872572846) CL (test code = 105 mmol/L 98-108 0218115709) CO2 TOTAL (test code = 26 mmol/L 23-31 8417283124) AGAP (test code = 2-16 0954154809) BUN (test code = 15 mg/dL 7-23 4814865811) GLUCOSE (test code = 104 mg/dL 70-110 5440661944) CREATININE (test code 0.67 mg/dL 0.50-1.04 = 8510926666) CALCIUM (test code = 9.0 mg/dL 8.6-10.6 2126289794) eGFR Calculation mL/min/1.73m2 (Non-) (test code = 6392280745) eGFR Calculation mL/min/1.73m2 () (test code = 8132046587) KISHORE (test code = KISHORE) Association of Glomerular Filtration Rate (GFR) and Staging of Kidney Disease* + -+ + ---+| GFR (mL/min/1.73 m2) ?| With Kidney Damage ?| ?Without Kidney Damage+ -------+ ------+ ---------+| ?>90 ?| ?Stage one ?| ? Normal ?+ --+ -+ ----+| ?60-89 ?| ?Stage two ?| ? Decreased GFR ? + -+ + ---+| ?30-59 ?| ?Stage three ?| ? Stage three ? + -+ + ---+| ?15-29 ?| ?Stage four ? | ? Stage four ?+ --+ -+ ----+| ?<15 (or dialysis) ? ?| ?Stage five ? | ? Stage five ?+ --+ -+ ----+ *Each stage assumes the associated GFR level has been in effect for at least three months. ?Stages 1 to 5, with or without kidney disease, indicate chronic kidney disease. Notes: Determination of stages one and two (with eGFR >59mL/min/1.73 m2) requires estimation of kidney damage for at least three months as defined by structural or functional abnormalities of the kidney, manifested by either:Pathological abnormalities or Markers of kidney damage (including abnormalities in the composition of the blood or urine or abnormalities in imaging tests). [facility] with [id number] 18:40:21 Test Item Value Reference Range Interpretation Comments WBC (test code = See_Comment [Automated message] 6690-2) The system [employer] generated this result transmitted ref erence range: 4.30 - 1 1.10 10*3/?L. The re ference range was not u sed to interpret this result as normal/abnor mal. RBC (test code = See_Comment [Automated message] 789-8) The system [employer] generated this result transmitted ref erence range: 3.93 - 5 .25 10*6/?L. The re ference range was not u sed to interpret this result as normal/abnor mal. HGB (test code = 12.9 g/dL 11.6-15.0 718-7) HCT (test code = 37.2 % 35.7-45.2 4544-3) MCV (test code = 83.8 fL 80.6-95.5 787-2) MCH (test code = 29.1 pg 25.9-32.8 785-6) MCHC (test code = 34.7 g/dL 31.6-35.1 786-4) RDW-SD (test code 40.1 fL 39.0-49.9 = 27357-5) RDW-CV (test code 13.2 % 12.0-15.5 = 788-0) PLT (test code = See_Comment [Automated message] 777-3) The system [employer] generated this result transmitted ref erence range: 166 - 35 8 10*3/?L. The re ference range was not u sed to interpret this result as normal/abnor mal. MPV (test code = 11.2 fL 9.5-12.9 05177-2) NRBC/100 WBC (test See_Comment [Automat ed message] code = [id number]) The syste [employer] which generated this result transmitted ref erence range: 0.0 - 10 .0 /100 WBCs. The refer ence range was not u sed to interpret this result as normal/abnor mal. NRBC x10^3 (test <0.01 See_Comment [Automated message] code = 6117235091) The syste m which generated this result transmitted ref erence range: 10*3/?L. The reference range was not used to interpr et this result as normal/abnormal . GRAN MAT (NEUT) % 61.6 % (test code = 770-8) IMM GRAN % (test 0.20 % code = 2034498782) LYMPH % (test code 27.3 % = 736-9) MONO % (test code 8.0 % = 5905-5) EOS % (test code = 2.5 % 713-8) BASO % (test code 0.4 % = 706-2) GRAN MAT 5.67 10*3/uL 1.88-7.09 x10^3(ANC) (test code = 4483144323) IMM GRAN x10^3 <0.03 0.00-0.06 (test code = 4589157405) LYMPH x10^3 (test 2.52 10*3/uL 1.32-3.29 code = 731-0) MONO x10^3 (test 0.74 10*3/uL 0.33-0.92 code = 742-7) EOS x10^3 (test 0.23 10*3/uL 0.03-0.39 code = 711-2) BASO x10^3 (test 0.04 10*3/uL 0.01-0.07 code = 704-7) [facility] [id number] 18:19:00 Test Item Value Reference Range Interpretation Comments POCT PREG (test code = 1605) negative On board controls acceptable with C present Line (test code = 3574) Lab Interpretation (test code = Normal 75850-4) [facility] URINALYSIS W/O SPECIFIC [id number] 15:17:00 Test Item Value Reference Range Interpretation Comments POCT PH U (test code = 3254) 7 mg/dl 5-8 POCT U LEUK EST (test code = Negative Negative - Negative 3263) POCT U NIT (test code = 3262) Negative Negative - Negative POCT U PROT (test code = 3259) Negative Negative - Negative POCT U GLU (test code = 3256) Negative Negative - Negative POCT U KETONE (test code = 3258) Negative Negative - Negative POCT U BLD (test code = 3257) Negative Negative - Negative [facility] URINALYSIS W/O SPECIFIC [id number] 15:17:00 Test Item Value Reference Range Interpretation Comments POCT PH U (test code = 3254) 7 mg/dl 5-8 POCT U LEUK EST (test code = Negative Negative - Negative 3263) POCT U NIT (test code = 3262) Negative Negative - Negative POCT U PROT (test code = 3259) Negative Negative - Negative POCT U GLU (test code = 3256) Negative Negative - Negative POCT U KETONE (test code = 3258) Negative Negative - Negative POCT U BLD (test code = 3257) Negative Negative - Negative [facility]. METABOLIC PANEL (40994)2020-10-20 03:05:00 Test Item Value Reference Range Interpretation Comments NA (test code = 139 mmol/L 135-145 0406113007) K (test code = 4.0 mmol/L 3.5-5 7389268104) CL (test code = 104 mmol/L 98-108 9258447771) CO2 TOTAL (test code = 29 mmol/L 23-31 5285203045) AGAP (test code = 2-16 8581305967) BUN (test code = 18 mg/dL 7-23 5681592934) GLUCOSE (test code = 101 mg/dL 70-110 5157245243) CREATININE (test code 0.59 mg/dL 0.5-1.04 = 5962571809) TOTAL BILI (test code 0.2 mg/dL 0.1-1.1 = 4773448819) CALCIUM (test code = 8.9 mg/dL 8.6-10.6 6379008999) T PROTEIN (test code = 7.0 g/dL 6.3-8.2 6984125939) ALBUMIN (test code = 4.2 g/dL 3.5-5 5294013862) ALK PHOS (test code = 57 U/L 34-122 3385793906) ALTv (test code = 26 U/L 5-35 1742-6) AST(SGOT) (test code = 24 U/L 13-40 7717225953) eGFR Calculation mL/min/1.73m2 (Non-) (test code = 8485203007) eGFR Calculation mL/min/1.73m2 () (test code = 2811488328) KISHORE (test code = KISHORE) Association of Glomerular Filtration Rate (GFR) and Staging of Kidney Disease* + -+ + ---+| GFR (mL/min/1.73 m2) ?| With Kidney Damage ?| ?Without Kidney Damage+ -------+ ------+ ---------+| ?>90 ?| ?Stage one ?| ? Normal ?+ --+ -+ ----+| ?60-89 ?| ?Stage two ?| ? Decreased GFR ? + -+ + ---+| ?30-59 ?| ?Stage three ?| ? Stage three ? + -+ + ---+| ?15-29 ?| ?Stage four ? | ? Stage four ?+ --+ -+ ----+| ?<15 (or dialysis) ? ?| ?Stage five ? | ? Stage five ?+ --+ -+ ----+ *Each stage assumes the associated GFR level has been in effect for at least three months. ?Stages 1 to 5, with or without kidney disease, indicate chronic kidney disease. Notes: Determination of stages one and two (with eGFR >59mL/min/1.73 m2) requires estimation of kidney damage for at least three months as defined by structural or functional abnormalities of the kidney, manifested by either:Pathological abnormalities or Markers of kidney damage (including abnormalities in the composition of the blood or urine or abnormalities in imaging tests). [facility] Test Item Value Reference Range Interpretation Comments LIPASE (test code = 1358643572) 65 U/L 0-220 Lab Interpretation (test code = Normal 24163-3) [facility] / [id number] 02:56:00 Test Item Value Reference Range Interpretation Comments PROTIME PATIENT (test See_Comment [Auto mated message] code = 5964-2) The system ich generated this result transmitted ref erence range: 12.0 - 1 4.7 Seconds. The re ference range was not u sed to interpret this result as normal/abnor mal. INR (test code = 6301-6) Nor mal INR <1.1; Warfarin Therap eutic range 2.0 to 3. 0 or 2.5 to 3.5, dep ending upon the indica tions. Lab Interpretation (test Normal code = 97217-3) [facility] 02:53:00 Test Item Value Reference Range Interpretation Comments APPEARANCE (test code = Hazy Clear A 8857741963) COLOR (test code = Yellow Yellow 5976206802) PH (test code = 4.8-8.0 8555217498) SP GRAVITY (test code = 1.003-1.030 6163518083) GLU U QUAL (test code = Normal Normal 7313308071) BLOOD (test code = 3+ Negative A 4712281272) KETONES (test code = Negative Negative 3849770785) PROTEIN (test code = 30 mg/dL Negative A 2887-8) UROBILIN (test code = Normal Normal 2791840273) BILIRUBIN (test code = Negative Negative 7337870913) NITRITE (test code = Negative Negative 8395108802) LEUK SELENA (test code = 75/uL Negative A 9207854879) RBC/HPF (test code = See_Comment H [Autom ated message] 3930754068) The system [employer] generated this result transmitted ref erence range: 0 - 3 HP F. The reference range was not used to int erpret this result as normal/abnormal . WBC/HPF (test code = See_Comment H [Autom ated message] 4577629033) The system [employer] generated this result transmitted ref erence range: 0 - 5 HP F. The reference range was not used to int erpret this result as normal/abnormal . BACTERIA (test code = Few Negative A 8129989510) MUCOUS (test code = Slight Negative LPF A 1926052767) SQ EPITH (test code = HPF 9610140264) Lab Interpretation (test Abnormal code = 67191-7) [facility] WITH [id number] 02:50:00 Test Item Value Reference Range Interpretation Comments WBC (test code = See_Comment [Automated message] 6690-2) The system [employer] generated this result transmitted ref erence range: 4.30 - 1 1.10 10*3/?L. The re ference range was not u sed to interpret this result as normal/abnor mal. RBC (test code = See_Comment [Automated message] 789-8) The system [employer] generated this result transmitted ref erence range: 3.93 - 5 .25 10*6/?L. The re ference range was not u sed to interpret this result as normal/abnor mal. HGB (test code = 12.6 g/dL 11.6-15 718-7) HCT (test code = 37.8 % 35.7-45.2 4544-3) MCV (test code = 85.7 fL 80.6-95.5 787-2) MCH (test code = 28.6 pg 25.9-32.8 785-6) MCHC (test code = 33.3 g/dL 31.6-35.1 786-4) RDW-SD (test code 41.7 fL 39-49.9 = 87802-5) RDW-CV (test code 13.2 % 12-15.5 = 788-0) PLT (test code = See_Comment [Automated message] 777-3) The system whic h generated this result transmitted ref erence range: 166 - 35 8 10*3/?L. The re ference range was not u sed to interpret this result as normal/abnor mal. MPV (test code = 11.4 fL 9.5-12.9 08417-0) NRBC/100 WBC (test See_Comment [Automat ed message] code = 4986602916) The syste m which generated this result transmitted ref erence range: 0.0 - 10 .0 /100 WBCs. The refer ence range was not u sed to interpret this result as normal/abnor mal. NRBC x10^3 (test <0.01 See_Comment [Automated message] code = 0405455567) The syste m which generated this result transmitted ref erence range: 10*3/?L. The reference range was not used to interpr et this result as normal/abnormal . GRAN MAT (NEUT) % 57.1 % (test code = 770-8) IMM GRAN % (test 0.40 % code = 8760145086) LYMPH % (test code 32.8 % = 736-9) MONO % (test code 6.6 % = 5905-5) EOS % (test code = 2.6 % 713-8) BASO % (test code 0.5 % = 706-2) GRAN MAT 4.66 10*3/uL 1.88-7.09 x10^3(ANC) (test code = 1148565575) IMM GRAN x10^3 0.03 10*3/uL 0-0.06 (test code = 0949982308) LYMPH x10^3 (test 2.68 10*3/uL 1.32-3.29 code = 731-0) MONO x10^3 (test 0.54 10*3/uL 0.33-0.92 code = 742-7) EOS x10^3 (test 0.21 10*3/uL 0.03-0.39 code = 711-2) BASO x10^3 (test 0.04 10*3/uL 0.01-0.07 code = 704-7) [facility] [id number] 01:42:00 Test Item Value Reference Range Interpretation Comments POCT PREG (test code = 1605) negative On board controls acceptable with present C Line (test code = 3574) POCT PREG LOT # (test code = 3575) [id number] POCT PREG TEST DATE (test 05/25/2022 code = 3576) Lab Interpretation (test code = Normal 86829-3) [facility]. [facility] - PAP w/reflex HPV if ASC-US or above 2020-06-29 00:00:00 Test Item Value Reference Range Interpretation Comments Case (test code = Click ImageLink button A Case) for report. [facility] GRP A STREP (MOLECULAR)2020-06-06 16:26:00 Test Item Value Reference Range Interpretation Comments POCT GP A STREP (test neg Negative - code = 65429-4) Negative KISHORE (test code = KISHORE) accurate development and interpretation of all internal controls Lab Interpretation Normal (test code = 21839-0) [facility] FLU A AND B (MOLECULAR)2020-06-06 16:18:00 Test Item Value Reference Range Interpretation Comments POCT INFLUENZA A (test neg Negative - code = 3840) Negative POCT INFLUENZA B (test neg Negative - code = 3841) Negative KISHORE (test code = KISHORE) accurate development and interpretation of all internal controls Lab Interpretation Normal (test code = 84950-4) [facility]+ VW [id number] 18:03:03 Unremarkable left wrist series RL 5939 CLINICAL INDICATIONS: ?Pain COMPARISON STUDY: None ORDERING PHYSICIAN: FRANSISCO ESCOBAR TECHNIQUE: 3 views left wrist FINDINGS: The osseous structures are unremarkable. There is no evidence of fracture.Alignment is normal. The joint spaces are preserved. The soft tissues areunremarkable. [facility], RadiantResults Inft User - 05/27/2020 1:04 PM CDTCLINICAL INDICATIONS: PainCOMPARISON STUDY: NoneORDERINGPHYSICIAN: FRANSISCO PANDEYECHNIQUE: 3 views left wristFINDINGS:The osseous structures are unremarkable. There is no evidence of fracture.Alignment is normal. The joint spaces are preserved. The soft tiss ues areunremarkable.IMPRESSIONUnremarkable left wrist seriesRL 5939 [facility] VW [id number] 18:02:12 Unremarkable right shoulder series RL 5939 CLINICAL INDICATIONS: ?Pain COMPARISON STUDY: None ORDERING PHYSICIAN: FRANSISCO ESCBOAR TECHNIQUE: 2 views right shoulder FINDINGS: The osseous structures are unremarkable. There is no evidence of fracture.Alignment is normal. The joint spaces are preserved. The soft tissues areunremarkable. [facility], [facility] Results Inft User - 05/27/2020 1:03 PM CDTCLINICAL INDICATIONS: PainCOMPARISON STUDY: NoneORDERING PHYSICIAN: FRANSISCO DENGIQUE: 2 views right shoulderFINDINGS:The osseous structures areunremarkable. There is no evidence of fracture.Alignment is normal. The joint spaces are preserved. The soft tissues areunremarkable.IMPRESSIONUnremarkable right shoulder seriesRL 5939 [facility]+ VW [id number] 18:01:40 Unremarkable right ankle series RL 5939 CLINICAL INDICATIONS: ?Pain COMPARISON STUDY: None ORDERING PHYSICIAN: FRANSISCO ESCOBAR TECHNIQUE: 3views right ankle FINDINGS: The osseous structures are unremarkable. There is no evidence of fracture.Alignment is normal. The joint spaces are preserved. The soft tissues areunremarkable. [facility], [facility] Inft User - 05/27/2020 1:02 PM CDTCLINICAL INDICATIONS: PainCOMPARISON STUDY: NoneORDERING PHYSICIAN: FRANSISCO YOUSSEF: 3 views right ankleFINDINGS:The osseous structures are unremarkable. There is no evidence of fracture.Alignment is normal. The joint spaces are preserved. The soft tissues areunremarkable.IMPRESSIONUnremarkable right ankle seriesRL 5939 [facility] (ID NOW RAPID TESTING)2020-04-09 16:50:00 Test Item Value Reference Range Interpretation Comments SARS-CoV-2 Rapid ID NOW Not Detected Not Detected (test code = 19540-4) KISHORE (test code = KISHORE) ID NOW COVID-19 Assay is an isothermal nucleic acid amplification test intended for the qualitative detection of nucleic acid from SARS-CoV-2 viral RNA in nasopharyngeal (LUMBER STRAIGHTENER) specimens. It is used under Emergency Use Authorization (EUA) by FDA. The limit of detection (LOD) of the assay is 125 Genome Equivalents/mL. A positive result is indicative of the presence of SARS-CoV-2 RNA. ?Clinical correlation with patient history and other diagnostic information is necessary to determine patient infection status. A negative (Not Detected) result does not preclude SARS-CoV-2 infection. In patients with clinical symptoms and other tests that are consistent with SARS-CoV-2 infection, negative results should be treated as presumptive negative and a new specimen should be tested with alternative PCR molecular test. Invalid: Please collect a new specimen for repeat patient testing if clinically indicated. Lab Interpretation Normal (test code = 08827-5) [facility] - WET [id number] 16:47:00 Test Item Value Reference Range Interpretation Comments Wet Prep (test code = Moderate WBC per 9173720153) high-power field [facility]2020-08-15 16:44:00 Test Item Value Reference Range Interpretation Comments APPEARANCE (test code = Hazy Clear A 4092367389) COLOR (test code = Yellow Yellow 6328869989) PH (test code = 4.8-8.0 1616474683) SP GRAVITY (test code = 1.003-1.030 2275728357) GLU U QUAL (test code = 150 mg/dL Normal A 4026529083) BLOOD (test code = Negative Negative INTERFERE NCE FROM 8776896743) ASCORBIC ACID M AY CAUSE FALSE NEG ATIVE RESULT KETONES (test code = 5 mg/dL Negative A 4517514423) PROTEIN (test code = Negative Negative 2887-8) UROBILIN (test code = Normal Normal 9748445026) BILIRUBIN (test code = Negative Negative 6626940571) NITRITE (test code = Negative Negative 8243950121) LEUK SELENA (test code = 25/uL Negative A 0609333724) RBC/HPF (test code = See_Comment [Autom ated message] 2781696934) The system [employer] generated this result transmitted ref erence range: 0 - 3 HP F. The reference range was not used to int erpret this result as normal/abnormal . WBC/HPF (test code = See_Comment [Autom ated message] 4457114304) The system [employer] generated this result transmitted ref erence range: 0 - 5 HP F. The reference range was not used to int erpret this result as normal/abnormal . BACTERIA (test code = Negative Negative 8000420097) MUCOUS (test code = Slight Negative LPF A 9137007187) SQ EPITH (test code = HPF 7097988590) Lab Interpretation Abnormal (test code = 29300-9) [facility]ERN [id number] 16:30:00 Test Item Value Reference Range Interpretation Comments Fern Test (test code = 8018857395) Negative [facility][QL] CMP [id number] 00:00:00 Test Item Value Reference Range Interpretation Comments GLUCOSE; Normal 68 mg/dl 65-99 N Fasting refe rence (test code = 1547-9) interva l UREA NITROGEN (BUN) 10 mg/dl 7-25 N (test code = UREA NITROGEN (BUN)) CREATININE (test 0.46 mg/dl 0.50-1.10 code = CREATININE) eGFR NON-AFR. 134 > OR = 60 N TRISTANIAN (test code {ML/MIN/1.7} = eGFR NON-AFR. TRISTANIAN) eGFR 156 > OR = 60 N TRISTANIAN (test code {ML/MIN/1.7} = eGFR ) BUN/CREATININE [...] mg/dl 0.2-1.2 N Normal (test code = 25670-6) ALKALINE PHOSPHATASE 120 u/l 31-125 N (test code = ALKALINE PHOSPHATASE) AST; Normal (test 14 u/l 10-30 N code = 1916-6) ALT; Normal (test 16 u/l 6-29 N SPECIMEN R ECEIVED code = 1742-6) DATE AND TIME : [id number] [facility][Q] BILE ACIDS, FRACTIONATED AND TOTAL, [...] performancechar acteristics have been deter mined by [facility] [facility] Noman mandel. It has not beencleared or approved by FDA. This as say has been validatedpursua nt to the CLIA regulations and is used for clinicalpurpose s.SPECIMEN RECEIVED DATE A ND TIME: [id number] [facility][QL] CULTURE, URINE, [id number] 00:00:00 Test Item Value Reference Range Interpretation Comments SOURCE: (test URINE, CLEAN CATCH code = SOURCE:) STATUS: (test FINAL code = STATUS:) Result (test Multiple organisms CFU/mL. T hese code = Result) present, each less organis ms, commonly than 10,000 found onexterna l and internal genita romana, are consideredt o be colonizers. No further testing performed.SPECI MEN RECEIVED DATE A ND TIME: [id number] [facility]iciansUS PELVIS > 14 [id number] 21:23:34Impression: Single live intrauterine fetus, with adequate interval growth. No acuteabnormalities evident. RL: 460 End of Report Ordering Physician: SUDHA MENDOZA History: ?Possible premature rupture of membranes at 32 weeks. Evaluateamniotic fluid index and estimated weight. Technique: US PELVIS > 14 WEEKS Comparison: November 27, 2019. An earlier study of September 16, 2019 is notcurrently available for review. Findings: ? There is a single intrauterine fetus in cephalic presentation. Fetalcardiac activity is docume nted, with a heart rate of 126 bpm. Fetalbiometrics indicate an estimated gestational age of 33 weeks 2 days,indicating adequate interval growth from the November study. Estimated fetalweight by ultrasound is 2094 +/- 306 g. Anatomic evaluation is limited bygestational age. No anatomic abnormalities are apparent on this study. Theanterior placenta is unremarkable in appearance. Amniotic fluid volume isnormal for gestational age, with an amniotic fluid index of 17.66 cm. Thedeepest vertical pocket is 5.5 cm. Cervical length is normal at 4.4 cm. [facility], Radiant Results Inft User - 03/11/2020 4:24 PM CDTOrdering Physician: JOEY ALEJANDROEHistory: Possible premature rupture of membranes at 32 weeks. Evaluateamniotic fluid index and estimated weight.Technique: US PELVIS > 14 WEEKSComparison: November 27, 2019. An earlier study of September 16, 2019 is notcurrently available for review.Findings: There is a single intrauterine fetus in cephalic presentation. Fetalcardiac activity is doc umented, with a heart rate of 126 bpm. Fetalbiometrics indicate an estimated gestational age of 33 weeks 2 days,indicating adequate interval growth from the November study. Estimated fetalweight by ultrasound is 2094 +/- 306 g. Anatomic evaluation is limited bygestational age. No anatomic abnormalities are apparent on this study. Theanterior placenta is unremarkable in appearance. Amniotic fluid volume isnormal for gestational age, with an amniotic fluid index of 17.66 cm. Thedeepest vertical pocket is5.5 cm. Cervical length is normal at 4.4 cm.IMPRESSIONImpression:Single live intrauterine fetus, with adequate interval growth. No acuteabnormalities evident.RL: 460End of Report [facility] FERN [id number] 19:53:00 Test Item Value Reference Range Interpretation Comments Fern Test (test code = 7574203657) Negative [facility] ([facility] NOW RAPID TESTING)2020-03-07 01:44:00 Test Item Value Reference Range Interpretation Comments SARS-CoV-2 Rapid ID NOW Positive Not Detected A (test code = 78208-4) KISHORE (test code = KISHORE) ID NOW COVID-19 Assay is an isothermal nucleic acid amplification test intended for the qualitative detection of nucleic acid from SARS-CoV-2 viral RNA in nasopharyngeal (LUMBER STRAIGHTENER) specimens. It is used under Emergency Use Authorization (EUA) by FDA. The limit of detection (LOD) of the assay is 125 Genome Equivalents/mL. A positive result is indicative of the presence of SARS-CoV-2 RNA. ?Clinical correlation with patient history and other diagnostic information is necessary to determine patient infection status. A negative (Not Detected) result does not preclude SARS-CoV-2 infection. In patients with clinical symptoms and other tests that are consistent with SARS-CoV-2 infection, negative results should be treated as presumptive negative and a new specimen should be tested with alternative PCR molecular test. Invalid: Please collect a new specimen for repeat patient testing if clinically indicated. Lab Interpretation Abnormal (test code = 77947-6) [facility] METABOLIC PANEL (NA, K, CL, CO2, GLUCOSE, BUN, CREATININE, CA)2020-03-07 01:43:00 Test Item Value Reference Range Interpretation Comments NA (test code = 133 mmol/L 135-145 L 2517717857) K (test code = 3.8 mmol/L 3.5-5 2991724103) CL (test code = 106 mmol/L 98-108 2043302826) CO2 TOTAL (test code = 22 mmol/L 23-31 L 0059881508) AGAP (test code = 2-16 1048439269) BUN (test code = 8 mg/dL 7-23 4779982569) GLUCOSE (test code = 98 mg/dL 70-110 0188904608) CREATININE (test code = 0.38 mg/dL 0.5-1.04 L 8396804527) CALCIUM (test code = 8.8 mg/dL 8.6-10.6 1236353284) eGFR Calculation mL/min/1.73m2 (Non-) (test code = 2475386316) eGFR Calculation mL/min/1.73m2 () (test code = 5853526565) KISHORE (test code = KISHORE) Association of Glomerular Filtration Rate (GFR) and Staging of Kidney Disease* + --+ --+ ------+| GFR (mL/min/1.73 m2) ?| With Kidney Damage ?| ?Without Kidney Damage+ --------+ --------+ +| ?>90 ?| ?Stage one ?| ? Normal ?+ ---+ ---+ -------+| ?60-89 ?| ?Stage two ?| ? Decreased GFR ? + --+ --+ ------+| ?30-59 ?| ?Stage three ?| ? Stage three ? + --+ --+ ------+| ?15-29 ?| ?Stage four ? | ? Stage four ?+ ---+ ---+ -------+| ?<15 (or dialysis) ? ?| ?Stage five ? | ? Stage five ?+ ---+ ---+ -------+ *Each stage assumes the associated GFR level has been in effect for at least three months. ?Stages 1 to 5, with or without kidney disease, indicate chronic kidney disease. Notes: Determination of stages one and two (with eGFR >59mL/min/1.73 m2) requires estimation of kidney damage for at least three months as defined by structural or functional abnormalities of the kidney, manifested by either:Pathological abnormalities or Markers of kidney damage (including abnormalities in the composition of the blood or urine or abnormalities in imaging tests). Lab Interpretation Abnormal (test code = 37986-8) [facility] WITH [id number] 01:27:00 Test Item Value Reference Range Interpretation Comments WBC (test code = See_Comment H [Automated 7590-2) message] The system which generated this result transmit tessie reference range : 4.30 - 11.10 10*3/?L. The reference range was not used to interpret this result as normal/abnormal . RBC (test code = See_Comment [Automated 789-8) message] The system which generated this result transmit tessie reference range : 3.93 - 5.25 10*6/?L. The reference range was not used to interpret this result as normal/abnormal . HGB (test code = 11.2 g/dL 11.6-15 L 718-7) HCT (test code = 34.2 % 35.7-45.2 L 4544-3) MCV (test code = 83.0 fL 80.6-95.5 787-2) MCH (test code = 27.2 pg 25.9-32.8 785-6) MCHC (test code = 32.7 g/dL 31.6-35.1 786-4) RDW-SD (test code = 40.8 fL 39-49.9 73472-1) RDW-CV (test code = 13.7 % 12-15.5 788-0) PLT (test code = See_Comment [Automated 777-3) message] The system which generated this result transmit tessie reference range : 166 - 358 10*3/ ?L. The reference range was not u sed to interpret th is result as normal/abnormal . MPV (test code = 11.6 fL 9.5-12.9 15080-5) NRBC/100 WBC (test See_Comment [Automat ed code = 1129481748) message] The system which generated this result transmit tessie reference range : 0.0 - 10.0 /100 WBCs. The reference range was not used to interpret this result as normal/abnormal . NRBC x10^3 (test code <0.01 See_Comment [Auto mated = 0877251603) message] The system which generated this result transmit tessie reference range : 10*3/?L. The reference range was not used to interpret this result as normal/abnormal . GRAN MAT (NEUT) % 80.6 % (test code = 770-8) IMM GRAN % (test code 1.00 % = 2976922779) LYMPH % (test code = 11.4 % 736-9) MONO % (test code = 5.8 % 5905-5) EOS % (test code = 0.9 % 713-8) BASO % (test code = 0.3 % 706-2) GRAN MAT x10^3(ANC) 12.28 10*3/uL 1.88-7.09 H (test code = 0727041977) IMM GRAN x10^3 (test 0.15 10*3/uL 0-0.06 H code = 7146885321) LYMPH x10^3 (test code 1.73 10*3/uL 1.32-3.29 = 731-0) MONO x10^3 (test code 0.89 10*3/uL 0.33-0.92 = 742-7) EOS x10^3 (test code = 0.14 10*3/uL 0.03-0.39 711-2) BASO x10^3 (test code 0.04 10*3/uL 0.01-0.07 = 704-7) Lab Interpretation Abnormal (test code = 83010-2) [facility][Q] GLUCOSE, GESTATIONAL SCREEN (50G)-130 [id number] 16:06:00 Test Item Value Reference Range Interpretation Comments GLUCOSE, GESTATIONAL 121 mg/dl <135 N SPECIME N RECEIVED DATE SCREEN (50G)-130 AND TIME: 2 [id number] CUTOFF; Normal (test code = 47833-8) [facility][QL] CBC (INCLUDES DIFF/PLT)2020-02-18 16:06:00 Test Item Value Reference Range Interpretation Comments WHITE BLOOD CELL 13.6 3.8-10.8 COUNT (test code = {Thousand/u} WHITE BLOOD CELL COUNT) RED BLOOD CELL COUNT 3.80 3.80-5.10 N (test code = RED {Million/uL} BLOOD CELL COUNT) HEMOGLOBIN; Below 10.8 g/dl 11.7-15.5 Low Threshold (test code = 74346-9) HEMATOCRIT; Below 32.5 % 35.0-45.0 Low Threshold (test code = 4544-3) MCV; Normal (test 85.5 fL 80.0-100.0 N code = 787-2) MCHC; Normal (test 33.2 g/dl 32.0-36.0 N code = 38676-4) RDW; Normal (test 13.1 % 11.0-15.0 N code = 788-0) PLATELET COUNT; 262 140-400 N Normal (test code = {Thousand/u} 777-3) MPV; Normal (test 11.8 fL 7.5-12.5 N code = 45360-0) ABSOLUTE NEUTROPHILS 52114 8768-5768 (test code = {cells/uL} ABSOLUTE NEUTROPHILS) ABSOLUTE LYMPHOCYTES 2971 589-4457 N (test code = {cells/uL} ABSOLUTE LYMPHOCYTES) [...] Normal 6.2 % N (test code = 48670-7) EOSINOPHILS; Normal 0.9 % N (test code = 64254-1) BASOPHILS; Normal 0.3 % N SPECIMEN R ECEIVED (test code = DATE AND TIME: 39444-7) [id number] [facility][QL] URINALYSIS, [id number] 00:00:00 Test Item Value Reference Range Interpretation [...] Normal NEGATIVE NEGATIVE N (test code = 08795-8) KETONES; Normal (test NEGATIVE NEGATIVE N code = 48002-2) OCCULT BLOOD; Normal NEGATIVE NEGATIVE N (test code = 19811-8) PROTEIN; Normal (test NEGATIVE NEGATIVE N code = 40456-9) NITRITE; Normal (test NEGATIVE NEGATIVE N code = 71418-9) LEUKOCYTE ESTERASE 1+ NEGATIVE A (test code = LEUKOCYTE ESTERASE) WBC; Abnormal (test 10-20 < OR = 5 A code = 6690-2) RBC; Normal (test 0-2 < OR = 2 N code = 789-8) SQUAMOUS EPITHELIAL > OR = 60 < OR = 5 A CELLS; Abnormal (test code = 91130-8) BACTERIA; Abnormal FEW NONE SEEN A (test code = 630-4) CALCIUM OXALATE FEW NONE OR FEW N CRYSTALS; Normal (test code = 53205-8) HYALINE CAST; Normal NONE SEEN NONE SEEN N SPECIME N RECEIVED DATE (test code = 76975-8) AND TI ME: [id number] [facility][QL] CULTURE, URINE, [id number] 00:00:00 Test Item Value Reference Range Interpretation [...] desired.SPECIME N RECEIVED DATE A ND TIME: [id number] 301 [facility]. [facility] - Affirm VPIII (BV Panel)2020-01-15 00:00:00 Test Item Value Reference Range Interpretation Comments Case (test code = Click ImageLink button N Case) for report. [facility] [id number] 01:37:00 Test Item Value Reference Range Interpretation Comments APPEARANCE (test code = Hazy Clear A 7243236248) COLOR (test code = Yellow Yellow 9954553843) PH (test code = 4.8-8.0 1826385309) SP GRAVITY (test code = 1.003-1.030 5722974094) GLU U QUAL (test code = Normal Normal 2383800764) BLOOD (test code = Negative Negative 4271694121) KETONES (test code = Negative Negative 7785573883) PROTEIN (test code = Negative Negative 2887-8) UROBILIN (test code = Normal Normal 6923856420) BILIRUBIN (test code = Negative Negative 6579247815) NITRITE (test code = Negative Negative 6823929368) LEUK SELENA (test code = Negative Negative 8644309412) RBC/HPF (test code = See_Comment [Autom ated message] 3393191815) The system [employer] generated this result transmitted ref erence range: 0 - 3 HP F. The reference range was not used to int erpret this result as normal/abnormal . WBC/HPF (test code = See_Comment [Autom ated message] 6689634314) The system [employer] generated this result transmitted ref erence range: 0 - 5 HP F. The reference range was not used to int erpret this result as normal/abnormal . BACTERIA (test code = Few Negative A 1520315587) MUCOUS (test code = Slight Negative LPF A 2271140362) SQ EPITH (test code = HPF 4453182868) Lab Interpretation (test Abnormal code = 21637-6) [facility] [id number] 00:49:00 Test Item Value Reference Range Interpretation Comments SARS-CoV-2 (test code = Not Detected Not Detected 57307-8) KISHORE (test code = KISHORE) ID NOW COVID-19 Assay is an isothermal nucleic acid amplification test intended for the qualitative detection of nucleic acid from SARS-CoV-2 viral RNA in nasopharyngeal (LUMBER STRAIGHTENER) specimens. It is used under Emergency Use Authorization (EUA) by FDA. The limit of detection (LOD) of the assay is 125 Genome Equivalents/mL. A positive result is indicative of the presence of SARS-CoV-2 RNA. ?Clinical correlation with patient history and other diagnostic information is necessary to determine patient infection status. A negative (Not Detected) result does not preclude SARS-CoV-2 infection. Clinical correlation with patient history and other diagnostic information should be used in patient management decisions. Invalid: Please collect a new specimen for repeat patient testing if clinically indicated. Lab Interpretation Normal (test code = 72858-4) [facility] [id number] 00:26:00 Test Item Value Reference Range Interpretation Comments TROPONIN I (test <0.012 See_Comment [Automated code = 3693948759) message] The system which generated this result transmitted reference range : <=0.034 ng/mL. The reference range was not used to interpr et this result as normal/abnormal . KISHORE (test code = Equal or Less than KISHORE) 0.034 ng/ml---Normal ?Note: Cardiac troponin begins to rise 3-4 hours after the onset of ischemia. Repeat in 4-6 hours if the sample was drawn within 3-4 hours of the onset of the symptom and found normal. Between 0.035 and 0.120 ng/mL--- Borderline. Questionable myocardial injury or necrosis ? ?Note: Serial measurement may be necessary to confirm or exclude the diagnosis of myocardial injury or necrosis; Clinical correlation (symptoms, EKGs, imaging studies, and others) required; Repeat in 4-6 hours if clinically indicated. ? Equal or Higher than 0.121 ng/mL---Abnormal. Myocardial Injury or Necrosis Likely ? Biotin has been reported to cause a negative bias, interpret results relative to patient's use of biotin. ? Lab Interpretation Normal (test code = 76843-0) [facility]00 Test Item Value Reference Range Interpretation Comments APTT Patient (test See_Comment [Automat ed code = 3173-2) message] The system which generated this result transmitted reference range : 23 - 38 Seconds . The reference range was not used to interpr et this result as normal/abnormal . KISHORE (test code = KISOHRE) The [facility] patient population mean normal value for aPTT is 30 seconds. Lab Interpretation Normal (test code = 32850-8) [facility] / [id number] 00:24:00 Test Item Value Reference Range Interpretation Comments PROTIME PATIENT (test See_Comment [Auto mated message] code = 5964-2) The system wh ich generated this result transmitted ref erence range: 12.0 - 1 4.7 Seconds. The re ference range was not u sed to interpret this result as normal/abnor mal. INR (test code = 6301-6) Nor mal INR <1.1; Warfarin Therap eutic range 2.0 to 3. 0 or 2.5 to 3.5, dep ending upon the indica tions. Lab Interpretation (test Normal code = 03130-2) [facility] WITH [id number] 00:19:00 Test Item Value Reference Range Interpretation Comments WBC (test code = See_Comment H [Automated 9490-2) message] The system which generated this result transmit tessie reference range : 4.30 - 11.10 10*3/?L. The reference range was not used to interpret this result as normal/abnormal . RBC (test code = See_Comment [Automated 789-8) message] The system which generated this result transmit tessie reference range : 3.93 - 5.25 10*6/?L. The reference range was not used to interpret this result as normal/abnormal . HGB (test code = 12.7 g/dL 11.6-15 718-7) HCT (test code = 36.3 % 35.7-45.2 4544-3) MCV (test code = 88.5 fL 80.6-95.5 787-2) MCH (test code = 31.0 pg 25.9-32.8 785-6) MCHC (test code = 35.0 g/dL 31.6-35.1 786-4) RDW-SD (test code = 42.7 fL 39-49.9 13218-3) RDW-CV (test code = 13.2 % 12-15.5 788-0) PLT (test code = See_Comment [Automated 777-3) message] The system which generated this result transmit tessie reference range : 166 - 358 10*3/ ?L. The reference range was not u sed to interpret th is result as normal/abnormal . MPV (test code = 11.2 fL 9.5-12.9 80460-4) NRBC/100 WBC (test See_Comment [Automat ed code = 3874658440) message] The system which generated this result transmit tessie reference range : 0.0 - 10.0 /100 WBCs. The reference range was not used to interpret this result as normal/abnormal . NRBC x10^3 (test code <0.01 See_Comment [Auto mated = 2358456665) message] The system which generated this result transmit tessie reference range : 10*3/?L. The reference range was not used to interpret this result as normal/abnormal . GRAN MAT (NEUT) % 76.5 % (test code = 770-8) IMM GRAN % (test code 0.90 % = 9849123421) LYMPH % (test code = 14.3 % 736-9) MONO % (test code = 6.3 % 5905-5) EOS % (test code = 1.7 % 713-8) BASO % (test code = 0.3 % 706-2) GRAN MAT x10^3(ANC) 12.18 10*3/uL 1.88-7.09 H (test code = 4682388534) IMM GRAN x10^3 (test 0.14 10*3/uL 0-0.06 H code = 7267891548) LYMPH x10^3 (test code 2.28 10*3/uL 1.32-3.29 = 731-0) MONO x10^3 (test code 1.01 10*3/uL 0.33-0.92 H = 742-7) EOS x10^3 (test code = 0.27 10*3/uL 0.03-0.39 711-2) BASO x10^3 (test code 0.04 10*3/uL 0.01-0.07 = 704-7) Lab Interpretation Abnormal (test code = 54287-6) [facility] CenterCOMP[facility] MET[facility]OLIC PAN[facility] (01401)2019-12-15 00:14:00 Test Item Value Reference Range Interpretation Comments NA (test code = 135 mmol/L 135-145 5441804474) K (test code = 3.8 mmol/L 3.5-5 6640194475) CL (test code = 105 mmol/L 98-108 5121318307) CO2 TOTAL (test code = 23 mmol/L 23-31 0990228897) AGAP (test code = 2-16 9722387005) BUN (test code = 10 mg/dL 7-23 6135764146) GLUCOSE (test code = 86 mg/dL 70-110 0661614957) CREATININE (test code = 0.39 mg/dL 0.5-1.04 L 4439396724) TOTAL BILI (test code = 0.1 mg/dL 0.1-1.1 3245914561) CALCIUM (test code = 9.0 mg/dL 8.6-10.6 0931731762) T PROTEIN (test code = 7.4 g/dL 6.3-8.2 5092828705) ALBUMIN (test code = 4.0 g/dL 3.5-5 3059526392) ALK PHOS (test code = 71 U/L 34-122 0505003964) ALTv (test code = 20 U/L 5-35 2-6) AST(SGOT) (test code = 22 U/L 13-40 4611509993) eGFR Calculation mL/min/1.73m2 (Non-) (test code = 9716285461) eGFR Calculation mL/min/1.73m2 () (test code = 9752836978) KISHORE (test code = KISHORE) Association of Glomerular Filtration Rate (GFR) and Staging of Kidney Disease* + --+ --+ ------+| GFR (mL/min/1.73 m2) ?| With Kidney Damage ?| ?Without Kidney Damage+ --------+ --------+ +| ?>90 ?| ?Stage one ?| ? Normal ?+ ---+ ---+ -------+| ?60-89 ?| ?Stage two ?| ? Decreased GFR ? + --+ --+ ------+| ?30-59 ?| ?Stage three ?| ? Stage three ? + --+ --+ ------+| ?15-29 ?| ?Stage four ? | ? Stage four ?+ ---+ ---+ -------+| ?<15 (or dialysis) ? ?| ?Stage five ? | ? Stage five ?+ ---+ ---+ -------+ *Each stage assumes the associated GFR level has been in effect for at least three months. ?Stages 1 to 5, with or without kidney disease, indicate chronic kidney disease. Notes: Determination of stages one and two (with eGFR >59mL/min/1.73 m2) requires estimation of kidney damage for at least three months as defined by structural or functional abnormalities of the kidney, manifested by either:Pathological abnormalities or Markers of kidney damage (including abnormalities in the composition of the blood or urine or abnormalities in imaging tests). Lab Interpretation Abnormal (test code = 09963-7) [facility] CenterLIPASE, [id number] 00:14:00 Test Item Value Reference Range Interpretation Comments LIPASE (test code = 2144712263) 47 U/L 0-220 Lab Interpretation (test code = Normal 55915-9) [facility][Q] IRON, TIBC AND FERRITIN [id number] 15:53:00 Test Item Value Reference Range Interpretation Comments IRON, TOTAL (test 108 {mcg/dl} 40-190 N code = IRON, TOTAL) IRON BINDING 454 {mcg/dL 250-450 CAPACITY (test code ca} = IRON BINDING CAPACITY) % SATURATION (test 24 {% CALC} 16-45 N SPECIMEN RECEIVED code = % DATE AND TIME: SATURATION) FERRITIN (test code 13 ng/ml 16-154 SPECIMEN RECEIVED = FERRITIN) DATE AND TIME: [facility][Q] OBSTETRIC [id number] 15:53:00 Test Item Value Reference Range Interpretation Comments WHITE BLOOD CELL 13.1 3.8-10.8 COUNT (test code = {Thousand/u} WHITE BLOOD CELL COUNT) RED BLOOD CELL 4.07 3.80-5.10 N COUNT (test code = {Million/uL} RED BLOOD CELL COUNT) HEMAGLOBIN; Normal 12.3 g/dl 11.7-15.5 N (test code = 32327-0) HEMATOCRIT; Normal 36.0 % 35.0-45.0 N (test code = 4544-3) MCV; Normal (test 88.5 fL 80.0-100.0 N code = 787-2) MCHC; Normal (test 34.2 g/dl 32.0-36.0 N code = 33492-8) RDW; Normal (test 13.2 % 11.0-15.0 N code = 788-0) PLATELET COUNT; 260 {Thousand/u} 140-400 N Normal (test code = 777-3) MPV; Normal (test 11.7 fL 7.5-12.5 N code = 52101-1) ABSOLUTE 9930 {cells/uL} 6794-8378 NEUTROPHILS (test code = ABSOLUTE NEUTROPHILS) ABSOLUTE [...] Normal 5.6 % N (test code = 42777-9) EOSINOPHILS; Normal 1.4 % N (test code = 32405-9) BASOPHILS; Normal 0.5 % N SPECIMEN R ECEIVED (test code = DATE AND TIME: 53709-4) 798913107907 ANTIBODY SCREEN, NO ANTIBODIES N Reference range [...] code RH(D) NEGATIVE For add itional = 24280-8) information, pl ease refer to http://educatio n.Que stDiagnostics.c om/fa q/QAH276 (This link is being provid ed for informational/e ducat ional purposes only.)SPECIMEN RECEIVED DATE A ND TIME: 556 RPR (DX) W/REFL NON-REACTIVE NON-REACTIVE N SPECIMEN REC EIVED TITER AND DATE AND TIME: CONFIRMATORY TESTING (test code = RPR (DX) W/REFL TITER AND CONFIRMATORY TESTING) HEPATITIS B SURFACE NON-REACTIVE NON-REACTIVE N SPECIMEN RECEIVED ANTIGEN; Normal DATE AND BENJAMIN E: (test code = 835404489811 5195-3) RUBELLA ANTIBODY 3.85 {index} N Index (IGG); Normal (test Interpre tation code = 90831-5) ----- <0.90 Not consistent with Immunity 0.90-0.99 Equivocal > or = 1.00 Consi stent with Immunity The presence of rub shaheen IgG antibody suggests immunization or past or current infe ction withrubella virus.SPECIMEN RECEIVED DATE A ND TIME: [facility][Q] [id number] DEHYDROGENASE, QUANT. 2019-11-30 15:53:00 Test Item Value Reference Range Interpretation Comments [id number] 18.1 {U/g 7.0-20.5 SPECIMEN RECEIVED DEHYDROGENASE (test Hgb} DATE AND TIME: code = 190583906200 [id number]-[id number]-[id number] DEHYDROGENASE) [facility][QL] FOLATE, [id number] 15:53:00 Test Item Value Reference Range Interpretation Comments FOLATE, SERUM 13.5 ng/ml N Reference Rang e (test code = Low: FOLATE, SERUM) <3.4 Borde rline: 3.4-5.4 Normal: >5.4 SPECIMEN R ECEIVED DATE AND TIME: [facility][Q] TREPONEMA PALLIDUM AB, PARTICLE AGGLUTINATION 2019-11-30 15:53:00 Test Item Value Reference Range Interpretation Comments TREPONEMA PALLIDUM NONREACTIVE Reference Range: AB, PARTICLE NonreactiveSPEC IMEN AGGLUTINATION (test RECEIVED DATE AND TIME: code = TREPONEMA 46225354414 6 PALLIDUM AB, PARTICLE AGGLUTINATION) [facility][QL] CULTURE, URINE, [id number] 15:53:00 Test Item Value Reference Range Interpretation Comments SOURCE: (test URINE, CLEAN code = SOURCE:) CATCH STATUS: (test FINAL code = STATUS:) ISOLATE 1: (test 50,000-100,000 A Lactobaci llus code = ISOLATE CFU/mL of speciesMay re present 1:) colonizers from external andint ernal genitalia. No f urther testing (includingsusce ptibili ty) will be performed.SPECI MEN RECEIVED DATE A ND TIME: [facility][Q] HEMOGLOBINOPATHY [id number] 15:53:00 Test Item Value Reference Range Interpretation Comments RED BLOOD CELL COUNT 3.96 3.80-5.10 N (test code = RED {Million/uL} BLOOD CELL COUNT) HEMAGLOBIN; Normal 12.4 g/dl 11.7-15.5 N (test code = 40601-8) HEMATOCRIT; Normal 35.4 % 35.0-45.0 N (test code = 4544-3) MCV; Normal (test 89.4 fL 80.0-100.0 N code = 787-2) MCH; Normal (test 31.3 pg 27.0-33.0 N code = 14760-3) RDW; Normal (test 13.4 % 11.0-15.0 N SPECIMEN R ECEIVED code = 788-0) DATE AND TIME: HEMOGLOBIN A (test 97.6 % >96.0 N code = HEMOGLOBIN A) HEMOGLOBIN F (test <1.0 <2.0 N code = HEMOGLOBIN F) HEMOGLOBIN A2 2.4 % 1.8-3.5 N (QUANT); Normal (test code = 47279-5) INTERPRETATION (test See Comment Normal code = phenotype.SPECI MEN INTERPRETATION) RECEIVED MIGUEL E AND TIME: 55 [facility][Q] HIV-1/2 Antigen and Antibodies, Fourth Generation, with [id number] 15:53:00 Test Item Value Reference Range Interpretation Comments HIV AG/AB, 4TH NON-REACTIVE NON-REACTIVE N HIV-1 antigen and GEN; Normal HIV-1/HIV-2 ant ibodies were (test code = [place] [address]-7) laboratory evid ence of HIVinfection. P JONG NOTE: This informatio n has been disclosed [...] a dditional information ple ase refer tohttp://educat ion.[employer]/fa q/RZG222(Thi s link is being provided for informational/e ducational purposes only.) The performance of this assay has not been clinicallyvalid ated in patients less t prince 2 years old. SPECIMEN R ECEIVED DATE AND TIME: [id number] [facility]. [facility] - [id number]/[id number] 00:00:00 Test Item Value Reference Range Interpretation Comments Case (test code = Click ImageLink button N Case) for report. [facility] PELVIS > 14 [id number] 15:31:35 1. No acute or adverse changes.2. Single, live intrauterine gestation with the size correlating well withdates. RL: 1105. Ordering Physician: Suman Sun History: Decreased movement. Comparison Study: None. Findings: ? Fetus: Singlet onPresentation: VertexFetal heart rate: Documented with a regular rate of 143, 4-chambered heartis visualized BPD: 3.6 cm with an EGA of 17 weeks 1 dayHC: 13.2 cm with an EGA of 16 weeks 6 daysAC: 10.9cm with an EGA of 16 weeks 6 daysFL: 2.2 cm with an EGA of 16 weeks 5 days Estimated weight: 167 +/- 25 grams which is within the 28thpercentileComputed EGA: 17 weeks 0 days with an EDC of 05/06/2020 which correlateswell with the LMPPlacental location: Fundal, os clear, cervical length is 4 cmAmniotic fluid: REMINGTON is 9.1 cm Real-time exam of the intracranial structures, spine, abdominalanatomy and limbs demonstrate no obvious anomalies. Maternal adnexalregions are unremarkable. Remainder negative. [facility], Radiant Results Inft User - 11/27/2019 10:32 AM CDTOrdering Physician: Suman Vuongistory: Decreased movement.Comparison Study: None.Findings: Fetus: SingletonPresentation: VertexFetal heart rate: Documented with a regular rate of 143, 4-chambered heartis visualizedBPD: 3.6cm with an EGA of 17 weeks 1 dayHC: 13.2 cm with an EGA of 16 weeks 6 daysAC: 10.9 cm with an EGA of16 weeks 6 daysFL: 2.2 cm with an EGA of 16 weeks 5 days Estimated weight: 167 +/- 25 grams which is within the 28thpercentileComputed EGA: 17 weeks 0 days with an EDC of 05/06/2020 which correlateswell with the LMPPlacental location: Fundal, os clear, cervical length is 4 cmAmniotic fluid: REMINGTON is 9.1 cmReal-time exam of the intracranial structures, spine, abdominalanatomy and limbs demonstrate no obvious anomalies. Maternal adnexalregions are unremarkable. Remainder negative.IMPRESSION1. No acute or adverse changes.2. Single, live intrauterine gestation with the size correlating well withdates.RL: 1105. [facility]00 Test Item Value Reference Range Interpretation Comments APPEARANCE (test code = Hazy Clear A 0728246868) COLOR (test code = Yellow Yellow 8778235955) PH (test code = 4.8-8.0 1256132117) SP GRAVITY (test code = 1.003-1.030 6666585043) GLU U QUAL (test code = Normal Normal 2891986703) BLOOD (test code = Negative Negative 3295887277) KETONES (test code = Negative Negative 1382744797) PROTEIN (test code = Negative Negative 2887-8) UROBILIN (test code = Normal Normal 7792426887) BILIRUBIN (test code = Negative Negative 8063637815) NITRITE (test code = Negative Negative 5355875991) LEUK SELENA (test code = Negative Negative 6629421578) RBC/HPF (test code = See_Comment [Autom ated message] 4980057685) The system [employer] generated this result transmitted ref erence range: 0 - 3 HP F. The reference range was not used to int erpret this result as normal/abnormal . WBC/HPF (test code = See_Comment [Autom ated message] 3024430965) The system [employer] generated this result transmitted ref erence range: 0 - 5 HP F. The reference range was not used to int erpret this result as normal/abnormal . BACTERIA (test code = Negative Negative 3068731243) MUCOUS (test code = Slight Negative LPF A 8743377052) SQ EPITH (test code = HPF 1514698191) Lab Interpretation (test Abnormal code = 17210-0) [facility] URINALYSIS W SPECIFIC [id number] 19:05:00 Test Item Value Reference Range Interpretation Comments POCT U SP GRAV (test code = . 1.005-1.025 3255) POCT PH U (test code = 3254) . 5-8 POCT U LEUK EST (test code = . Negative - Negative 3263) POCT U NIT (test code = 3262) . Negative - Negative POCT U PROT (test code = 3259) trace Negative - Negative POCT U GLU (test code = 3256) negative Negative - Negative POCT U KETONE (test code = 3258) . Negative - Negative POCT U UROBILI (test code = . 0.2-1 3260) POCT U BILI (test code = 3261) . Negative - Negative POCT U BLD (test code = 3257) . Negative - Negative POCT U COLOR (test code = 3266) POCT U APPEAR (test code = 3267) [facility] URINALYSIS W SPECIFIC [id number] 19:05:00 Test Item Value Reference Range Interpretation Comments POCT U SP GRAV (test code = . 1.005-1.025 3255) POCT PH U (test code = 3254) . 5-8 POCT U LEUK EST (test code = . Negative - Negative 3263) POCT U NIT (test code = 3262) . Negative - Negative POCT U PROT (test code = 3259) trace Negative - Negative POCT U GLU (test code = 3256) negative Negative - Negative POCT U KETONE (test code = 3258) . Negative - Negative POCT U UROBILI (test code = . 0.2-1 3260) POCT U BILI (test code = 3261) . Negative - Negative POCT U BLD (test code = 3257) . Negative - Negative POCT U COLOR (test code = 3266) POCT U APPEAR (test code = 3267) [facility] URINALYSIS W SPECIFIC [id number] 16:48:00 Test Item Value Reference Range Interpretation Comments POCT U SP GRAV (test code = . 1.005-1.025 3255) POCT PH U (test code = 3254) 5 mg/dl 5-8 POCT U LEUK EST (test code = TRACE Negative - Negative 3263) POCT U NIT (test code = 3262) NEGATIVE Negative - Negative POCT U PROT (test code = 3259) TRACE Negative - Negative POCT U GLU (test code = 3256) NEGATIVE Negative - Negative POCT U KETONE (test code = 3258) NEGATIVE Negative - Negative POCT U UROBILI (test code = . 0.2-1 3260) POCT U BILI (test code = 3261) . Negative - Negative POCT U BLD (test code = 3257) NEGATIVE Negative - Negative POCT U COLOR (test code = 3266) POCT U APPEAR (test code = 3267) [facility]US FIRST TRIMESTER LESS THAN 14 WEEKS WITH [id number] 14:45:42HISTORY: Vaginal bleeding. Rule out ectopic. TECHNIQUE: Both transabdominal and transvaginal pelvic ultrasound studieswere completed by the technologist. FINDINGS: Uterus is enlarged, measures approximately 10.6 x 5.9 x 6.8 cm insize and contains an early intrauterine of approximately 6 weeksand 2 days size by mean sac diameter of 1.58 cm. Gestational sac, yolk sacand pole very faintly visualized with probable cardiac activitynoted, heart rate recorded was only 112 BPM. Subcentimeter sizedsubchorionic hemorrhage is detected. Small nabothian cysts are seen in the cervix, the largest is 6 mm . Right ovary is 3.9 x 2.9 x 2.3 cm (14.31 ml) and left ovary is 3.0 x 2.0 x1.9 cm (6.19 ml). 18 mm corpus luteum hemorrhagicum noted in the rightovary. CONCLUSIONS: Early intrauterine of 6 weeks and 2 days size withsubcentimeter sized subchorionic hemorrhage. Follow-up transvaginal pelvicultrasound study requested in 2 weeks to confirm live IUP. [facility], Radiant ResultsInft User - 09/16/2019 8:46 AM CSTHISTORY: Vaginal bleeding. Rule out ectopic.TECHNIQUE: Both transa bdominal and transvaginal pelvic ultrasound studieswere completed by the technologist.FINDINGS: Uterus is enlarged, measures approximately 10.6 x 5.9 x 6.8 cm insize and contains an early intrauterine of approximately 6 weeksand 2 days size by mean sac diameter of 1.58 cm. Gestational sac, yolk sacand pole very faintly visualized with probable cardiac activitynoted, heart rate recorded was only 112 BPM. Subcentimeter sizedsubchorionic hemorrhage is detected.Small nabothian cysts are seen in the cervix, the largest is 6 mm .Right ovary is 3.9 x 2.9 x 2.3 cm (14.31 ml) and left ovary is 3.0 x 2.0 x1.9 cm (6.19 ml). 18 mm corpus luteum hemorrhagicum noted in the rightovary.CONCLUSIONS: Early intrauterine of 6 weeks and 2 days size withsubcentimeter sized subchorionic hemorrhage. Follow-up transvaginal pelvicultrasound study requested in 2 weeks to confirm live IUP. [facility] CenterT[facility] HCG [id number] 14:03:00 Test Item Value Reference Range Interpretation Comments BETA HCG (test See_Comment [Automated m essage] code = The system [employer] h [id number]) generated this result transmit tessie reference range : Non- fe male and male patien ts: <5 mIU/mL. The reference range was not used to interpret this result as normal/abnormal . KISHORE (test code Gestational Age ? ? = KISHORE) ?Range (mIU/mL) 1-10 ?Weeks ?62-94104803-48 Weeks ?99470-75801501-60 Weeks ?5705-13308036-82 Weeks ?3800-175405 Biotin has been reported to cause a negative bias, interpret results relative to patient's use of biotin. [facility] CenterType and Screen - ONCE [id number] 13:58:38 Test Item Value Reference Range Interpretation Comments ABO & RH (test code A Negative Performe d at [facility] = 20) Laboratory Serv [facility] - [facility] Blood Bank[address] [place] [phone] Free: [phone] A No. [id number] IAT (test code = Negative Performed a t [facility] 1185) Laboratory Serv [facility] Blood [address] [place], [place] [id number] Free: [phone] A No. [id number] [facility] Metabolic Panel (NA, K, CL, CO2, GLUCOSE, BUN, CREATININE, CA)2019-09-16 13:15:00 Test Item Value Reference Range Interpretation Comments NA (test code = 136 mmol/L 135-145 1687213934) K (test code = 3.7 mmol/L 3.5-5 8696676319) CL (test code = 105 mmol/L 98-108 3776036260) CO2 TOTAL (test code = 23 mmol/L 23-31 8239687592) AGAP (test code = 2-16 8544851664) BUN (test code = 12 mg/dL 7-23 6474028916) GLUCOSE (test code = 108 mg/dL 70-110 9276630135) CREATININE (test code = 0.45 mg/dL 0.5-1.04 L 4060278851) CALCIUM (test code = 9.3 mg/dL 8.6-10.6 2509241597) eGFR Calculation mL/min/1.73m2 (Non-) (test code = 3055872633) eGFR Calculation mL/min/1.73m2 () (test code = 3333574815) KISHORE (test code = KISHORE) Association of Glomerular Filtration Rate (GFR) and Staging of Kidney Disease* + --+ --+ ------+| GFR (mL/min/1.73 m2) ?| With Kidney Damage ?| ?Without Kidney Damage+ --------+ --------+ +| ?>90 ?| ?Stage one ?| ? Normal ?+ ---+ ---+ -------+| ?60-89 ?| ?Stage two ?| ? Decreased GFR ? + --+ --+ ------+| ?30-59 ?| ?Stage three ?| ? Stage three ? + --+ --+ ------+| ?15-29 ?| ?Stage four ? | ? Stage four ?+ ---+ ---+ -------+| ?<15 (or dialysis) ? ?| ?Stage five ? | ? Stage five ?+ ---+ ---+ -------+ *Each stage assumes the associated GFR level has been in effect for at least three months. ?Stages 1 to 5, with or without kidney disease, indicate chronic kidney disease. Notes: Determination of stages one and two (with eGFR >59mL/min/1.73 m2) requires estimation of kidney damage for at least three months as defined by structural or functional abnormalities of the kidney, manifested by either:Pathological abnormalities or Markers of kidney damage (including abnormalities in the composition of the blood or urine or abnormalities in imaging tests). Lab Interpretation Abnormal (test code = 61309-4) [facility] CenterHep[facility] Function Panel (ALB, T.PRO, BILI T, BU/BC, ALT, AST, ALK PHOS)2019-09-16 13:15:00 Test Item Value Reference Range Interpretation Comments TOTAL BILI (test code = 7851801459) 0.2 mg/dL 0.1-1.1 BILI UNCON (test code = 1192197738) 0.2 mg/dL 0.1-1.1 BILI CONJ (test code = 2370576744) 0.0 mg/dL 0-0.3 T PROTEIN (test code = 0061989239) 7.1 g/dL 6.3-8.2 ALBUMIN (test code = 8033520151) 4.0 g/dL 3.5-5 ALK PHOS (test code = 8125047789) 45 U/L 34-122 ALTv (test code = 1742-6) 36 U/L 5-35 H AST(SGOT) (test code = 6608340581) 27 U/L 13-40 Lab Interpretation (test code = Abnormal 20598-4) [facility] CenteraPTT2020-01-22 13:12:00 Test Item Value Reference Range Interpretation Comments APTT Patient (test See_Comment [Automat ed code = 3173-2) message] The system which generated this result transmitted reference range : 23 - 38 Seconds . The reference range was not used to interpr et this result as normal/abnormal . KISHORE (test code = KISHORE) The [facility] patient population mean normal value for aPTT is 30 seconds. Lab Interpretation Normal (test code = 59305-8) [facility] CenterProthrombin Time (PT) / [id number] 13:10:00 Test Item Value Reference Range Interpretation Comments PROTIME PATIENT (test See_Comment [Auto mated message] code = 5964-2) The system [employer] generated this result transmitted ref erence range: 12.0 - 1 4.7 Seconds. The re ference range was not u sed to interpret this result as normal/abnor mal. INR (test code = 6301-6) Nor mal INR <1.1; Warfarin Therap eutic range 2.0 to 3. 0 or 2.5 to 3.5, dep ending upon the indica tions. Lab Interpretation (test Normal code = 03664-2) [facility] CenterCBC WITH [id number] 13:03:00 Test Item Value Reference Range Interpretation Comments WBC (test code = See_Comment [Automated message] 6690-2) The system [employer] generated this result transmitted ref erence range: 4.30 - 1 1.10 10*3/?L. The re ference range was not u sed to interpret this result as normal/abnor mal. RBC (test code = See_Comment [Automated message] 949-8) The system [employer] generated this result transmitted ref erence range: 3.93 - 5 .25 10*6/?L. The re ference range was not u sed to interpret this result as normal/abnor mal. HGB (test code = 13.1 g/dL 11.6-15 718-7) HCT (test code = 38.1 % 35.7-45.2 4544-3) MCV (test code = 87.2 fL 80.6-95.5 787-2) MCH (test code = 30.0 pg 25.9-32.8 785-6) MCHC (test code = 34.4 g/dL 31.6-35.1 786-4) RDW-SD (test code 41.5 fL 39-49.9 = 51818-8) RDW-CV (test code 13.0 % 12-15.5 = 788-0) PLT (test code = See_Comment [Automated message] 567-3) The system whic h generated this result transmitted ref erence range: 166 - 35 8 10*3/?L. The re ference range was not u sed to interpret this result as normal/abnor mal. MPV (test code = 11.2 fL 9.5-12.9 88918-4) NRBC/100 WBC (test See_Comment [Automat ed message] code = 0076365174) The syste m which generated this result transmitted ref erence range: 0.0 - 10 .0 /100 WBCs. The refer ence range was not u sed to interpret this result as normal/abnor mal. NRBC x10^3 (test <0.01 See_Comment [Automated message] code = 7404574557) The syste m which generated this result transmitted ref erence range: 10*3/?L. The reference range was not used to interpr et this result as normal/abnormal . GRAN MAT (NEUT) % 64.6 % (test code = 770-8) IMM GRAN % (test 0.60 % code = 4106283720) LYMPH % (test code 24.6 % = 736-9) MONO % (test code 7.9 % = 5905-5) EOS % (test code = 1.8 % 713-8) BASO % (test code 0.5 % = 706-2) GRAN MAT 6.67 10*3/uL 1.88-7.09 x10^3(ANC) (test code = 1643621563) IMM GRAN x10^3 0.06 10*3/uL 0-0.06 (test code = 2197311920) LYMPH x10^3 (test 2.54 10*3/uL 1.32-3.29 code = 731-0) MONO x10^3 (test 0.82 10*3/uL 0.33-0.92 code = 742-7) EOS x10^3 (test 0.19 10*3/uL 0.03-0.39 code = 711-2) BASO x10^3 (test 0.05 10*3/uL 0.01-0.07 code = 704-7) [facility] CenterURINALYSIS2020-01-22 13:00:00 Test Item Value Reference Range Interpretation Comments APPEARANCE (test code = Hazy Clear A 7800589984) COLOR (test code = Yellow Yellow 1156410871) PH (test code = 4.8-8.0 7672348927) SP GRAVITY (test code = 1.003-1.030 1441778869) GLU U QUAL (test code = Normal Normal 4892495048) BLOOD (test code = 2+ Negative A 6109092440) KETONES (test code = Negative Negative 9333710845) PROTEIN (test code = Negative Negative 2887-8) UROBILIN (test code = Normal Normal 8138107025) BILIRUBIN (test code = Negative Negative 3954830305) NITRITE (test code = Negative Negative 9673077688) LEUK SELENA (test code = 500/uL Negative A 9745349524) RBC/HPF (test code = See_Comment H [Autom ated message] 6841728439) The system [employer] generated this result transmitted ref erence range: 0 - 3 HP F. The reference range was not used to int erpret this result as normal/abnormal . WBC/HPF (test code = See_Comment H [Autom ated message] 3596911974) The system [employer] generated this result transmitted ref erence range: 0 - 5 HP F. The reference range was not used to int erpret this result as normal/abnormal . BACTERIA (test code = Moderate Negative A 9266212106) MUCOUS (test code = Slight Negative LPF A 0308722130) SQ EPITH (test code = HPF 3442715854) Lab Interpretation (test Abnormal code = 32701-0) [facility] CenterPOCT [id number] 12:35:00 Test Item Value Reference Range Interpretation Comments POCT PREG (test code = 1605) positive On board controls acceptable with present C Line (test code = 3574) POCT PREG LOT # (test code = 3575) [id number] POCT PREG TEST DATE (test 08-25-2020 code = 3576) Lab Interpretation (test code = Normal 21033-1) [facility] CenterGC & CHLAMYDIA AMPLIFIED [id number] 18:57:00 Test Item Value Reference Range Interpretation Comments C. trachomatis Nucleic Acid (test Positive Negative A code = 28491-1) N. gonorrhoeae Nucleic Acid (test Negative Negative code = 54429-6) Lab Interpretation (test code = Abnormal 44686-7) [facility] CenterRUBELLA SCREEN (JESSICA) [id number] 17:54:00 Test Item Value Reference Range Interpretation Comments Rubella screen IgG Positive Negative (test code = 3634692574) KISHORE (test code = KISHORE) Positive - Indicates the patient was exposed to Rubella through infection or vaccination.Negative - Indicates the patient could be susceptible to Rubella infection.Equivocal - A second specimen should be sent. [facility]ODY [id number] 17:54:00 Test Item Value Reference Range Interpretation Comments VZV IgG antibody Positive Negative (test code = 77509-3) KISHORE (test code = KISHORE) Positive - Indicates the patient was exposed to VZV through infection or vaccination.Negative - Indicates the patient could be susceptible to VZV infection.Equivocal - A second specimen should be sent for testing. [facility] ONLY - SYPHILIS [id number] 15:14:00 Test Item Value Reference Range Interpretation Comments Syphilis IgG/IgM (test Non-reactive Non-reactive code = 27102-7) KISHORE (test code = KISHORE) Non-reactive - No serologic evidence of T. pallidum infection. Cannot exclude incubating or early syphilis. Submit a second specimen in 2-4 weeks if syphilis is clinically suspected. Equivocal - Further testing to follow. Reactive - Further testing to follow. Lab Interpretation (test Normal code = 02938-9) [facility] CenterPRENATAL WORKUP, BLOOD [id number] 09:33:37 Test Item Value Reference Range Interpretation Comments ABO & RH (test code A NEGATIVE Performe d at [facility] = 20) Laboratory Serv [facility] Blood Bank[address] [place] [address] s [id number] Free: [phone] A No. [id number] IAT (test code = Negative Performed a t [facility] 1185) Laboratory Serv [facility] Blood Bank[address] [place] [address] s [id number] Free: [phone] A No. [id number] [facility] CenterHIV 1/2 AG-AB WITH [id number] 07:47:00 Test Item Value Reference Range Interpretation Comments HIV Negative Negative Semi-quantitative (test code = 09880-8) KISHORE (test code = Non-reactive for HIV-1 KISHORE) antigen and HIV-1/HIV-2 antibodies. ?No laboratory evidence of HIV infection. ?Repeat in 2-4 weeks if acute HIV infection is suspected. [facility] CenterHEPATITIS B SURFACE [id number] 06:40:00 Test Item Value Reference Range Interpretation Comments HBsAg Semi-Quantitative (test code = Negative Negative 5195-3) [facility] WITH [id number] 06:36:00 Test Item Value Reference Range Interpretation Comments WBC (test code = See_Comment H [Automated 2508-2) message] The sy stem which generated this result transmitted reference range : 4.30 - 11.10 10*3/?L. The reference range was not used to interpret this result as normal/abnormal . RBC (test code = See_Comment [Automated 789-8) message] The sy stem which generated this result transmitted reference range : 3.93 - 5.25 10*6/?L. The reference range was not used to interpret this result as normal/abnormal . HGB (test code = 14.0 g/dL 11.6-15 718-7) HCT (test code = 40.9 % 35.7-45.2 4544-3) MCV (test code = 87.0 fL 80.6-95.5 787-2) MCH (test code = 29.8 pg 25.9-32.8 785-6) MCHC (test code = 34.2 g/dL 31.6-35.1 786-4) RDW-SD (test code = 42.2 fL 39-49.9 73566-3) RDW-CV (test code = 13.2 % 12-15.5 788-0) PLT (test code = See_Comment [Automated 777-3) message] The sy stem which generated this result transmitted reference range : 166 - 358 10*3/ ?L. The reference r diandra was not used to interpret this result as normal/abnormal . MPV (test code = 12.1 fL 9.5-12.9 85616-5) NRBC/100 WBC (test See_Comment [Automat ed code = 3954645392) message] The system which generated this result transmitted reference range : 0.0 - 10.0 /100 WBCs. The refer ence range was not u sed to interpret th is result as normal/abnormal . NRBC x10^3 (test code <0.01 See_Comment [Auto mated = 3395925181) message] The s ystem which generated this result transmitted reference range : 10*3/?L. The reference range was not used to interpret this result as normal/abnormal . GRAN MAT (NEUT) % 67.8 % (test code = 770-8) IMM GRAN % (test code 0.30 % = 5610141775) LYMPH % (test code = 23.2 % 736-9) MONO % (test code = 6.5 % 5905-5) EOS % (test code = 1.8 % 713-8) BASO % (test code = 0.4 % 706-2) GRAN MAT x10^3(ANC) 7.68 10*3/uL 1.88-7.09 H (test code = 2418754661) IMM GRAN x10^3 (test 0.03 10*3/uL 0-0.06 code = 4409514067) LYMPH x10^3 (test code 2.63 10*3/uL 1.32-3.29 = 731-0) MONO x10^3 (test code 0.74 10*3/uL 0.33-0.92 = 742-7) EOS x10^3 (test code = 0.20 10*3/uL 0.03-0.39 711-2) BASO x10^3 (test code 0.05 10*3/uL 0.01-0.07 = 704-7) Lab Interpretation Abnormal (test code = 68374-8) [facility] URINALYSIS W/O SPECIFIC [id number] 20:42:00 Test Item Value Reference Range Interpretation Comments POCT PH U (test code = 3254) 5 mg/dl 5-8 POCT U LEUK EST (test code = Trace Negative - Negative 3263) POCT U NIT (test code = 3262) Neg Negative - Negative POCT U PROT (test code = 3259) Trace Negative - Negative POCT U GLU (test code = 3256) Neg Negative - Negative POCT U KETONE (test code = 3258) None Negative - Negative POCT U BLD (test code = 3257) Neg Negative - Negative [facility] CenterPOCT [id number] 20:40:00 Test Item Value Reference Range Interpretation Comments POCT PREG (test code = 1605) Positive On board controls acceptable with C Yes Line (test code = 3574) POCT PREG LOT # (test code = 3575) POCT PREG TEST DATE (test code = 3576) [facility] CenterPREGNANCY SCREEN, [id number] 20:01:00 Test Item Value Reference Range Interpretation Comments TEST URINE (BEAKER) (test Negative code = 583) [id number] 11:54:00 Test Item Value Reference Range Interpretation Comments RPR SCREEN (BEAKER) (test code = Nonreactive Nonreactive 420) HEMOGLOBIN [id number] 10:47:00 Test Item Value Reference Range Interpretation Comments HEMOGLOBIN A1C (BEAKER) (test code = 5.2 % 4.3-6.1 368) TSH/FREE T4 IF [id number] 06:03:00 Test Item Value Reference Range Interpretation Comments THYROID STIMULATING HORMONE 0.97 uIU/mL 0.35-4.94 (BEAKER) (test code = 772) VITAMIN B12 AND [id number] 06:03:00 Test Item Value Reference Range Interpretation Comments VITAMIN B12 (BEAKER) (test code = 384 pg/mL 213-816 774) FOLATE (BEAKER) (test code = 362) 11.5 ng/mL >=7.0 Effective 07/13/2014: Folate Reference Range ChangeNew: >=7.0 Previous: >=5.4HIV-1 ANTIGEN WITH HIV-1/2 [id number] 05:29:00 Test Item Value Reference Range Interpretation Comments HIV-1 ANTIGEN WITH HIV 1\\T\\2 Nonreactive Nonreactive ANTIBODY (2) (BEAKER) (test code = 2586) [id number] 05:18:00 Test Item Value Reference Range Interpretation [...] exclusion of thrombosis is within 95-100% range. [id number] 05:18:00 Test Item Value Reference Range Interpretation Comments MAGNESIUM (BEAKER) (test code = 2.1 mg/dL 1.6-2.6 627) LIPID [id number] 05:18:00 Test Item Value Reference Range Interpretation [...] 130-159 High 160-189 Very High >=190BASIC METABOLIC [id number] 05:18:00 Test Item Value Reference Range Interpretation [...] PATIEN TS. CBC W/PLT COUNT & AUTO [id number] 05:09:00 Test Item Value Reference Range Interpretation [...] K/ L 0.00-0.20 (test code = 417) 0.00"
[2021-08-31] MEDS ORDERED: NA CHLORIDE 0.9% 1,000 ML ONE (10:04)
[2021-08-31 10:21] LABS: Absolute Lymphocytes (CBC) 1.3 K/uL (0.7-4.9); Hematocrit 39.3 % (36.0-45.0); Lymphocytes % 15.8 % (15.3-44.8); MPV 9.1 fL (7.6-11.3); RBC Red Blood Cell Count 4.64 M/uL (3.86-4.86)
[2021-08-31 10:30] LABS: Albumin 3.4 g/dL (3.4-5.0); BUN Blood Urea Nitrogen 12 mg/dL (7-18); Bicarbonate 25 mmol/L (21-32); Glucose Level 99 mg/dL (74-106); Lipase 88 U/L (73-393); Potassium 3.6 mmol/L (3.5-5.1); Sodium Level 138 mmol/L (136-145)
[2021-08-31 10:40] LABS: ALT/SGPT 40 U/L (12-78); AST/SGOT 15 U/L (15-37); Alkaline Phosphatase 74 U/L (45-117); Bilirubin Direct 0.1 mg/dL (0-0.2); Bilirubin Total 0.3 mg/dL (0.2-1.0); Protein, Total 7.4 g/dL (6.4-8.2)
[2021-08-31 10:56] LABS: Urine Blood Trace-intact (Negative); Urine Glucose Negative (Negative); Urine Protein Negative (Negative); Urine Specific Gravity >=1.030 (1.005-1.030); Urine pH 5.5 (5.0-7.0)
[2021-08-31 11:45] LABS: SARS-COV-2 RT PCR POSITIVE (NEGATIVE)
--- NOTE | 2021-08-31 11:56 | EDPHYS ---
Physician Documentation [facility] Name: Lauren Polanco Age: 31 yrs Sex: Female : 1990 Arrival Date: 08/31/2021 Time: 09:12 Bed 12 Private MD: ED Physician Socorro Dunbar HPI: 08/31 10:08 This 31 yrs old Female presents to ER via Ambulatory with complaints of Abdominal Pain, jr8 Fever, Cough. 10:08 Severity of pain: At its worst the pain was moderate in the emergency department the jr8 pain is unchanged. The patient has not experienced similar symptoms in the past. The patient has not recently seen a physician. This is a 31 y/o F patient that presented to the ED with 3 day history of cough, fever, diarrhea, nausea, abdominal cramping, and low back pain. T max fever 103. . 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 - Social history:: Smoking status: Patient denies any tobacco usage or history of. ROS: 10:08 Constitutional: Positive for body aches, chills, fever. jr8 10:08 ENT: Positive for sore throat. 10:08 Respiratory: Positive for cough, Negative for shortness of breath, sputum production, wheezing. 10:08 Abdomen/GI: Positive for nausea, diarrhea, abdominal cramps. 10:08 Back: Positive for pain at rest, pain with movement, Negative for radiated pain. 10:08 All other systems are negative. Exam: 10:08 Constitutional: This is a well developed, well nourished patient who is awake, alert, jr8 and in no acute distress. ENT: Nares patent. No nasal discharge, no septal abnormalities noted. Tympanic membranes are normal and external auditory canals are clear. Oropharynx with no redness, swelling, or masses, exudates, or evidence of obstruction, uvula midline. Mucous membranes moist. Neck: Trachea midline, no thyromegaly or masses palpated, and no cervical lymphadenopathy. Supple, full range of motion without nuchal rigidity, or vertebral point tenderness. No Meningismus. Cardiovascular: Regular rate and rhythm with a normal S1 and S2. No gallops, murmurs, or rubs. Normal PMI, no JVD. No pulse deficits. Respiratory: Lungs have equal breath sounds bilaterally, clear to auscultation and percussion. No rales, rhonchi or wheezes noted. No increased work of breathing, no retractions or nasal flaring. Abdomen/GI: Soft, non-tender, with normal bowel sounds. No distension or tympany. No guarding or rebound. No evidence of tenderness throughout. Back: No spinal tenderness. Full range of motion. Mild left sided CVA tenderness present Skin: Warm, dry with normal turgor. Normal color with no rashes, no lesions, and no evidence of cellulitis. MS/ Extremity: Pulses equal, no cyanosis. Neurovascular intact. Full, normal range of motion. Neuro: Awake and alert, GCS 15, oriented to person, place, time, and situation. Cranial nerves II-XII grossly intact. Motor strength 5/5 in all extremities. Sensory grossly intact. Cerebellar exam normal. Normal gait. Vital Signs: 09:46 BP 120 / 72; Pulse 80; Resp 16; Temp 99.3(TE); Pulse Ox 100% ; Weight 90.72 kg; Height vg1 5 ft. 1 in. (154.94 cm); Pain 7/10; 09:46 Body Mass Index 37.79 (90.72 kg, 154.94 cm) vg1 MDM: 10:40 Patient medically screened. [facility] 11:54 Data reviewed: vital signs, nurses notes, lab test result(s), and as a result, I will jr discharge patient. Data interpreted: Pulse oximetry: on room air is 100 %. Interpretation: normal. Counseling: I had a detailed discussion with the patient and/or guardian regarding: the historical points, exam findings, and any diagnostic results supporting the discharge/admit diagnosis, lab results, the need for outpatient follow up, a family practitioner, to return to the emergency department if symptoms worsen or persist or if there are any questions or concerns that arise at home. Response to treatment: the patient's symptoms have mildly improved after treatment, patient is well hydrated. 08/31 09:54 Order name: COVID-19/FLU A+B (Document "Date of Onset" if Symptomatic); Complete Time: vg1 11:54 08/31 10:00 Order name: Basic Metabolic Panel; Complete Time: 10:47 1 08/31 10:00 Order name: CBC with Diff; Complete Time: 10:47 1 08/31 10:00 Order name: Hepatic Function; Complete Time: 10:47 1 08/31 10:00 Order name: Lipase; Complete Time: 10:47 [facility] 08/31 10:00 Order name: Urine Microscopic Only [facility] 08/31 10:00 Order name: IV Saline Lock; Complete Time: 10:01 1 08/31 10:00 Order name: Labs collected and sent; Complete Time: 10:02 [facility] 08/31 10:00 Order name: Urine Dipstick-Ancillary (obtain specimen); Complete Time: 10:59 1 08/31 10:00 Order name: Strep; Complete Time: 10:47 [facility] 08/31 10:43 Order name: Throat Culture [facility] 08/31 10:55 Order name: Urine Dipstick-Ancillary; Complete Time: 11:01 [facility] 08/31 10:58 Order name: Urine --Ancillary (enter results) 08/31 10:00 Order name: Urine Test (obtain specimen); Complete Time: 10:59 vg1 Administered Medications: 10:11 Drug: NS 0.9% 1000 ml Route: IV; Rate: 1 bolus; Site: right antecubital; vg1 12:00 Follow up: IV Status: Completed infusion iw Disposition: 17:03 Co-signature as Attending Physician, Socorro Dunbar MD PA/FANCY STITCHER's history reviewed, ma2 patient interviewed, and examined. I agree with assessment and care plan and confirm the diagnosis (es) above. Disposition Summary: 08/31/21 11:55 Discharge Ordered Location: Home jr8 Problem: new jr8 Symptoms: have improved jr8 Condition: Stable jr8 Diagnosis - SARS-associated coronavirus as the cause of diseases classified elsewhere jr8 Followup: jr8 - With: Private Physician - When: 1 week - Reason: Recheck today's complaints, Continuance of care, Re-evaluation by your physician Discharge Instructions: - Discharge Summary Sheet jr8 - COVID-19 jr8 - 10 Things You Can Do to Manage Your COVID-19 Symptoms at Home - [facility] jr8 - COVID-19: Quarantine vs. Isolation - [facility] jr8 Forms: - Medication Reconciliation Form jr8 - Thank You Letter jr8 - Antibiotic Education jr8 - Prescription Opioid Use jr8 Prescriptions: - promethazine-DM 6.25-15 mg/5 mL Oral syrup - take 5 milliliter by ORAL route every 4-6 hours as needed, not to exceed 30 mL jr8 in 24 hours; 110 milliliter; Refills: 0, Product Selection Permitted - dicyclomine 20 mg Oral Tablet - take 1 tablet by ORAL route 3 times per day As needed; 21 tablet; Refills: 0, jr8 Product Selection Permitted Signatures: Dispatcher [employer] Alfredo Rodrigues PA PA jr8 Socorro Dunbar MD MD ma2 Ivett Yates RN RN vg1 Isatu Hylton RN iw
--- NOTE | 2021-08-31 11:56 | ER ---
Nurse's Notes [facility] Name: Lauren Polanco Age: 31 yrs Sex: Female : 1990 Arrival Date: 08/31/2021 Time: 09:12 Bed 12 Private MD: Diagnosis: SARS-associated coronavirus as the cause of diseases classified elsewhere Presentation: 08/31 09:46 Chief complaint: Patient states: NVD, cough, sore throat, fever and kidney pain x3 vg1 days. States has been taking inhaler and nebulizer treatments, but 'they dont seem to be working'. Coronavirus screen: Vaccine status: Patient reports being unvaccinated. Client denies travel out of the [place] in the last 14 days. Ebola Screen: Patient negative for fever greater than or equal to 101.5 degrees Fahrenheit, and additional compatible Ebola Virus Disease symptoms. Initial Sepsis Screen: Does the patient meet any 2 criteria? No. Patient's initial sepsis screen is negative. Does the patient have a suspected source of infection? No. Patient's initial sepsis screen is negative. Risk Assessment: Do you want to hurt yourself or someone else? Patient reports no desire to harm self or others. Onset of symptoms was August 28, 2021. 09:46 Method Of Arrival: Ambulatory vg1 09:46 Acuity: YANICK 3 vg1 Triage Assessment: 09:48 General: Appears in no apparent distress. comfortable, Behavior is calm, cooperative. vg1 Pain: Complains of pain in back and left lower quadrant Pain currently is 7 out of 10 on a pain scale. Pain began 2-3 days ago. GI: Reports diarrhea, nausea, vomiting. 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 - Social history:: Smoking status: Patient denies any tobacco usage or history of. Screenin:01 Abuse screen: Denies threats or abuse. Denies injuries from another. Nutritional iw screening: No deficits noted. Tuberculosis screening: No symptoms or risk factors identified. Fall Risk None identified. Assessment: 11:40 General: Appears in no apparent distress. Behavior is calm, cooperative. Neuro: Level iw of Consciousness is awake, alert, obeys commands, Oriented to person, place, time, situation, Moves all extremities. Full function. Cardiovascular: Patient's skin is warm and dry. Respiratory: Respiratory effort is even, unlabored, Respiratory pattern is regular, symmetrical. GI: Bowel sounds present X 4 quads. Abd is soft X 4 quads. Derm: Skin is intact, is healthy with good turgor. Musculoskeletal: Range of motion: intact in all extremities. Vital Signs: 09:46 BP 120 / 72; Pulse 80; Resp 16; Temp 99.3(TE); Pulse Ox 100% ; Weight 90.72 kg; Height vg1 5 ft. 1 in. (154.94 cm); Pain 7/10; 09:46 Body Mass Index 37.79 (90.72 kg, 154.94 cm) vg1 ED Course: 09:12 Patient arrived in ED. ds1 09:48 Triage completed. vg1 09:48 Arm band placed on. vg1 10:01 Alfredo Victoria PA is PHCP. vg1 10:01 Socorro Dunbar MD is Attending Physician. vg1 10:08 Initial lab(s) drawn, by il, sent to lab. COVID swab sent to lab. Flu and/or RSV swab vg1 sent to lab. Strep swab sent to lab. Inserted saline lock: 20 gauge in right antecubital area, using aseptic technique. Blood collected. 11:40 Patient has correct armband on for positive identification. iw 12:01 No provider procedures requiring assistance completed. Patient did not have IV access iw during this emergency room visit. 12:02 Isatu Hylton, ZOË is Primary Nurse. iw Administered Medications: 10:11 Drug: NS 0.9% 1000 ml Route: IV; Rate: 1 bolus; Site: right antecubital; vg1 12:00 Follow up: IV Status: Completed infusion iw Outcome: 11:55 Discharge ordered by . jr8 12:01 Discharged to home ambulatory. iw 12:01 Condition: good 12:01 Discharge instructions given to patient, Instructed on discharge instructions, follow up and referral plans. medication usage, Demonstrated understanding of instructions, follow-up care. 12:02 Patient left the ED. iw Signatures: Eli Florez ds1 Isatu Hylton RN RN iw Alfredo Victoria PA PA jr8 Ivett Yates RN RN vg1 Corrections: (The following items were deleted from the chart) 09:53 09:46 Chief complaint: Patient states: NVD, cough, fever and kidney pain x3 days. vg1 States has been taking inhaler and nebulizer treatments, but 'they dont seem to be working'. vg1
[2021-08-31 12:03] LABS: Urine Amorphous Sediment 3+ /HPF (NONE SEEN); Urine Bacteria 20-50 /HPF (<20); Urine RBC <5 /HPF (NONE SEEN)
[2021-08-31 12:04] LABS: Urine Specific Gravity/Preg >1.030 (1.005-1.030)
[2021-08-31 12:06] VITALS: BP 120/72; TEMP 99.3; O2SAT 100
== END 2021-08-31 12:02 | disposition home or self-care (01) ==
LOC: ER 09:10
DX: U07.1 COVID-19 (principal); Z88.1 Allergy status to other antibiotic agents
CPT/HCPCS: 96361; 87070; 87088; 85025; 87086; 80048; 36415; 81025; 80076; 87081; 83690; 0240U; 96360; 99283; J7030; 81003; 81015

== ENCOUNTER 2022-08-07 16:46 | Emergency (ER) | payer OTHER ==
--- OUTSIDE RECORDS SUMMARY | 2022-08-07 16:58 | XMS REPORT | Continuity of Care Document ---
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 (TRAMADOL 15:53: [place] ORAL) 21 Medical Branch multivit-mi 2019-08 Yes Take by Uni vers n/ferrous 0-12 mouth. ity of fumarate 15:53: [place] ([facility] 21 Medical VITAMIN Branch ORAL) escitalopra 2019-08 Yes 20mg Take 20 mg Univers m oxalate 0-12 by mouth ity of (LEXAPRO) 15:53: daily. [place] 20 mg 21 Medical tablet Branch traZODone 2019-08 Yes 75mg Take 75 mg Un husam 100 mg 0-12 by mouth ity of tablet 15:53: at [place] 21 bedtime. Medical Branch multivit-mi 2019-08 Yes Take by Uni vers n/ferrous 0-12 mouth. ity of fumarate 15:53: [place] ([facility] 21 Medical VITAMIN Branch ORAL) escitalopra 2019-08 Yes 20mg Take 20 mg Univers m oxalate 0-12 by mouth ity of (LEXAPRO) 15:53: daily. [place] 20 mg 21 Medical tablet Branch traZODone 2019-08 Yes 75mg Take 75 mg Un husam 100 mg 0-12 by mouth ity of tablet 15:53: at [place] 21 bedtime. Medical Branch multivit-mi 2019-08 Yes Take by Uni vers n/ferrous 0-12 mouth. ity of fumarate 15:53: [place] ([facility] 21 Medical VITAMIN Branch ORAL) escitalopra 2019-08 Yes 20mg Take 20 mg [facility] m oxalate 0-12 by mouth ity of (LEXAPRO) 15:53: daily. [place] 20 mg 21 Medical tablet Branch traZODone 2019-08 Yes 75mg Take 75 mg Un husam 100 mg 0-12 by mouth ity of tablet 15:53: at [place] [address] bedtime. Medical Branch bromphenira 2019-08 2020- No [id number] 5mL Take 5 mL Univers mine-pseudo 0-12 10-23 by mouth 4 i ty of ephedrine-D 00:00: 04:59 (four) [place] as M (BROMFED 00 :00 times Medical DM) 2-30-10 daily as Bran ch mg/5 mL needed for syrup Congestion /Allergies for up to 10 days. acyclovir 2019-08 2020- No [id number] 400mg Take 1 [facility] 400 mg 0-12 10-20 07 tablet by ity of tablet 00:00: 04:59 mouth 3 [place] 00 :00 (three) Medical times Branch daily for 7 days. methylPREDN 2019-08 2020- No [id number] Take by Univers ISolone 4 0-12 10-19 mouth ity of mg tablets 00:00: 04:59 SEE-INSTRU [place] 00 :00 CTIONS for Medical 6 days. Branch follow package directions naproxen 2019-08 2020- No [id number] 500mg Take 1 [facility] 500 mg 0-02 11- 9102 tablet by ity of tablet 00:00: 05:59 mouth 2 [place] 00 :00 (two) Medical times Branch daily as needed for Pain (scale 4-6) for up to 30 days. naproxen 2019- 2020- No [id number] 500mg Take 1 [facility] 500 mg 0-02 06-27 9102 tablet by ity of tablet 00:00: 05:59 mouth 2 [place] 00 :00 (two) Medical times Branch daily as needed for Pain (scale 4-6) for up to 30 days. naproxen 2019-08- No [id number] 500mg Take 1 [facility] 500 mg 0-06-27 9102 tablet by ity of tablet 00:00: 05:59 mouth 2 [place] 00 :00 (two) Medical times Branch daily as needed for Pain (scale 4-6) for up to 30 days. naproxen 2019-08- No [id number] 500mg Take 1 [facility] 500 mg 0-06-27 9102 tablet by ity of tablet 00:00: 05:59 mouth 2 [place] 00 :00 (two) Medical times Branch daily as needed for Pain (scale 4-6) for up to 30 days. methylPREDN 2019-2019- No [id number] Take by Univers ISolone 4 0-06-03 9102 mouth ity of mg tablets 00:00: 04:59 SEE-INSTRU [place] 00 :00 CTIONS for Medical 6 days. Branch follow package directions methylPREDN 2019-2019- No [id number] Take by Univers ISolone 4 0-02 06-03 9102 mouth ity of mg tablets 00:00: 04:59 SEE-INSTRU [place] 00 :00 CTIONS for Medical 6 days. Branch follow package directions methylPREDN 2019-2019- No [id number] Take by Univers ISolone 4 0-02 06-03 9102 mouth ity of mg tablets 00:00: 04:59 SEE-INSTRU [place] 00 :00 CTIONS for Medical 6 days. Branch follow package directions cyclobenzap 2019-2019- No [id number] 5mg Take 1 Univers rine 5 mg 0-06-02 tablet by ity of tablet 00:00: 04:59 mouth 3 [place] 00 :00 (three) Medical times Branch daily for 5 days. cyclobenzap 2019- 2020- No [id number] 5mg Take 1 Univers rine 5 mg 0-02 10-08 tablet by ity of tablet 00:00: 04:59 mouth 3 [place] 00 :00 (three) Medical times Branch daily for 5 days. cyclobenzap 2019- 2020- No [id number] 5mg Take 1 Univers rine 5 mg 0-02 10-08 tablet by ity of tablet 00:00: 04:59 mouth 3 [place] 00 :00 (three) Medical times Branch daily for 5 days. multivit-mi 2020-0 Yes Take by Uni vers n/ferrous 8-15 mouth. ity of fumarate 17:31: [place] ([facility] 54 Medical VITAMIN Branch ORAL) escitalopra 2020-0 Yes 20mg Take 20 mg Univers m oxalate 8-15 by mouth ity of (LEXAPRO) 17:31: daily. [place] 20 mg 54 Medical tablet Branch traZODone 2020-0 Yes 75mg Take 75 mg Un husam 100 mg 8-15 by mouth ity of tablet 17:31: at [place] [address] bedtime. Medical Branch multivit-mi 2020-0 Yes Take by Uni vers n/ferrous 8-15 mouth. ity of fumarate 17:31: [place] ([place] [address] Medical VITAMIN Branch ORAL) escitalopra 2020-0 Yes 20mg Take 20 mg Univers m oxalate 8-15 by mouth ity of (LEXAPRO) 17:31: daily. [place] 20 mg 54 Medical tablet Branch traZODone 2020-0 Yes 75mg Take 75 mg Un [place] 100 mg 8-15 by mouth ity of tablet 17:31: at [place] [address] bedtime. Medical Branch multivit-mi 2020-0 Yes Take by Uni vers n/ferrous 8-15 mouth. ity of fumarate 17:31: [place] ([place] [address] Medical VITAMIN Branch ORAL) escitalopra 2020-0 Yes 20mg Take 20 mg [facility] m oxalate 8-15 by mouth ity of (LEXAPRO) 17:31: daily. [place] 20 mg 54 Medical tablet Branch traZODone 2020-0 Yes 75mg Take 75 mg Un [place] 100 mg 8-15 by mouth ity of tablet 17:31: at [place] [address] bedtime. Medical Branch multivit-mi 2020-0 Yes Take by Uni vers n/ferrous 8-15 mouth. ity of fumarate 17:31: [place] ([place] [address] Medical VITAMIN Branch ORAL) escitalopra 2020-0 Yes 20mg Take 20 mg [facility] m oxalate 8-15 by mouth ity of (LEXAPRO) 17:31: daily. [place] 20 mg 54 Medical tablet Branch traZODone 2020-0 Yes 75mg Take 75 mg Un [place] 100 mg 8-15 by mouth ity of tablet 17:31: at [place] [address] bedtime. Medical Branch multivit-mi 2020-0 Yes Take by Uni vers n/ferrous 8-15 mouth. ity of fumarate 17:31: [place] ([facility] 54 Medical VITAMIN Branch ORAL) escitalopra 2020-0 Yes 20mg Take 20 mg [facility] m oxalate 8-15 by mouth ity of (LEXAPRO) 17:31: daily. [place] 20 mg 54 Medical tablet Branch traZODone 2020-0 Yes 75mg Take 75 mg Un [place] 100 mg 8-15 by mouth ity of tablet 17:31: at [place] [address] bedtime. Medical Branch multivit-mi 2020-0 Yes Take by Uni vers n/ferrous 8-15 mouth. ity of fumarate 17:31: [place] ([place] [address] Medical VITAMIN Branch ORAL) escitalopra 2020-0 Yes 20mg Take 20 mg Univers m oxalate 8-15 by mouth ity of (LEXAPRO) 17:31: daily. [place] 20 mg 54 Medical tablet Branch traZODone 2020-0 Yes 75mg Take 75 mg Un [place] 100 mg 8-15 by mouth ity of tablet 17:31: at [place] [address] bedtime. Medical Branch Ursodiol Ursodiol 2020-0 Yes K MIN Q0.3333D TAKE 1 UT 250 MG Oral 250 MG Oral 8-04 M.D. TABLET 3 Physici Tablet Tablet 00:00: TIMES ans 00 DAILY. hydrOXYzine hydrOXYzine 2020-0 Yes K MIN Q0.3333D TAKE 1 UT HCl - 25 MG HCl - 25 MG 7-30 M.D. TABLET 3 Physici Oral Tablet Oral Tablet 00:00: TIMES ans 00 DAILY NEEDED. multivit-mi 2020-0 Yes Take by Uni vers n/ferrous 7-17 mouth. ity of fumarate 22:03: [place] ([place] [address] Medical VITAMIN Branch ORAL) HYDROcodone 2020-0 2020- No 1{tbl} 1 tablet, Univers -acetaminop 03-06 07-12 Oral, ity of hen (NORCO 17:45: 17:08 ONCE, 1 [place] 5) 5-325 mg 00 :00 dose, Sun Med ical tablet 1 03/06/20 at [facility] h tablet 1245, [place] clindamycin 2020-0 2020- No 450mg 450 mg, U nivers (CLEOCIN 03-06-12 Oral, ity of HCL) 17:45: 17:08 ONCE, [...] (scale 4-6). Indication s: acute pain acetaminoph 2019-0 2020- No [id number] 1{tbl} Take 1 U nivers en-codeine 7-12 03-01 tablet by ity of 300-30 mg 00:00: 00:00 mouth [place] tablet 00 :00 every 4 Medical (four) Branch hours as needed for Pain (scale 4-6). Indication s: acute pain acetaminoph 2019-0 2020- No [id number] 1{tbl} Take 1 U nivers en-codeine 7-12 03-01 tablet by ity of 300-30 mg 00:00: 00:00 mouth [place] tablet 00 :00 every 4 Medical (four) Branch hours as needed for Pain (scale 4-6). Indication s: acute pain clindamycin 2019-0 2019- No [id number] 450mg Take 3 Univers 150 mg 7-12 07-23 capsules ity of capsule 00:00: 04:59 by mouth 3 [place] 00 :00 (three) Medical times Branch daily for 10 days. clindamycin 2020-0 2019- No [id number] 450mg Take 3 [facility] 150 mg 7-12 07-23 capsules ity of capsule 00:00: 04:59 by mouth 3 [place] 00 :00 (three) Medical times Branch daily for 10 days. clindamycin 2019-0 2019- No [id number] 450mg Take 3 [facility] 150 mg 7-12 07-23 capsules ity of capsule 00:00: 04:59 by mouth 3 [place] 00 :00 (three) Medical times Branch daily for 10 days. clindamycin 2020-0 2020- No [id number] 450mg Take 3 [facility] 150 mg 7-12 07-23 capsules ity of capsule 00:00: 04:59 by mouth 3 [place] 00 :00 (three) Medical times [place] daily for 10 days. HYDROcodone 2019-0 2020- No 1{tbl} 1 tablet, Univers -acetaminop 6-15 06-15 Oral, ONCE i ty of hen (NORCO) 04:00: 03:06 NOW, 1 [place] as 10-325 mg 00 :00 dose, Sun Medic al tablet 1 02/07/20 at [facility] h tablet 2300, Routine Esgic Esgic 2019-0 Yes YASHIRA TAKE 1 TO UT 50-325-40 50-325-40 5-21 HURT 2 CAPSULES Physici MG Oral MG Oral 00:00: M.D. EVERY 4 TO a ns Capsule Capsule 00 6 HOURS NEEDED FOR PAIN. Prochlorper Prochlorper 2020-0 Yes YASHIRA Q8H TAKE 1 UT azine azine 5-21 HURT TABLET Physici Maleate 10 Maleate 10 00:00: M.D. EVERY 8 ans MG Oral MG Oral 00 HOURS Tablet Tablet NEEDED. magnesium 2019-0 Yes 400mg 400 mg, Univ ers oxide 4-21 Oral, ity of (MAG-OX 14:00: DAILY, [place] 400) tablet 00 First dose Me dical 400 mg on Sat Branch 12/15/19 at 0900, Until Discontinu ed, Routine HYDROcodone 2019-0 2020- No 1{tbl} 1 tablet, Univers -acetaminop 4-21 04-21 Oral, ity of hen (NORCO 03:15: 02:14 ONCE, 1 [place] 5) 5-325 mg 00 :00 dose, Mon Med ical tablet 1 12/14/19 at [facility] h tablet 2215, [place] magnesium 2020-0 Yes [id number] 400mg Take 1 Univers oxide 400 4-20 tablet by ity o f mg (241.3 00:00: mouth [place] mg 00 daily. Medical magnesium) Branch tablet magnesium 2020-0 Yes [id number] 400mg Take 1 Univers oxide 400 4-20 tablet by ity o f mg (241.3 00:00: mouth [place] mg 00 daily. Medical magnesium) Branch tablet magnesium 2020-0 Yes [id number] 400mg Take 1 Univers oxide 400 4-20 tablet by ity o f mg (241.3 00:00: mouth [place] mg 00 daily. Medical magnesium) Branch tablet magnesium 2020-0 Yes [id number] 400mg Take 1 [facility] oxide 400 4-20 tablet by ity o f mg (241.3 00:00: mouth [place] mg 00 daily. Medical magnesium) Branch tablet magnesium 2020-0 Yes [id number] 400mg Take 1 Univers oxide 400 4-20 tablet by ity o f mg (241.3 00:00: mouth [place] mg 00 daily. Medical magnesium) Branch tablet magnesium 2020-0 Yes [id number] 400mg Take 1 Univers oxide 400 4-20 tablet by ity o f mg (241.3 00:00: mouth [place] mg 00 daily. Medical magnesium) Branch tablet magnesium 2020-0 Yes [id number] 400mg Take 1 Univers oxide 400 4-20 tablet by ity o f mg (241.3 00:00: mouth [place] mg 00 daily. Medical magnesium) Branch tablet magnesium 2020-0 Yes [id number] 400mg Take 1 Univers oxide 400 4-20 tablet by ity o f mg (241.3 00:00: mouth [place] mg 00 daily. Medical magnesium) Branch tablet magnesium 2020-0 Yes [id number] 400mg Take 1 Univers oxide 400 4-20 tablet by ity o f mg (241.3 00:00: mouth [place] mg 00 daily. Medical magnesium) Branch tablet magnesium 2020-0 Yes [id number] 400mg Take 1 Univers oxide 400 4-20 tablet by ity o f mg (241.3 00:00: mouth [place] mg 00 daily. Medical magnesium) Branch tablet magnesium 2020-0 Yes [id number] 400mg Take 1 Univers oxide 400 4-20 tablet by ity o f mg (241.3 00:00: mouth [place] mg 00 daily. Medical magnesium) Branch tablet magnesium 2020-0 Yes [id number] 400mg Take 1 Univers oxide 400 4-20 tablet by ity o f mg (241.3 00:00: mouth [place] mg 00 daily. Medical magnesium) Branch tablet magnesium 2020-0 Yes [id number] 400mg Take 1 Univers oxide 400 4-20 tablet by ity o f mg (241.3 00:00: mouth [place] mg 00 daily. Medical magnesium) Branch tablet magnesium 2020-0 Yes [id number] 400mg Take 1 Univers oxide 400 4-20 tablet by ity o f mg (241.3 00:00: mouth [place] mg 00 daily. Medical magnesium) Branch tablet magnesium 2020-0 Yes [id number] 400mg Take 1 Univers oxide 400 4-20 tablet by ity o f mg (241.3 00:00: mouth [place] mg 00 daily. Medical magnesium) Branch tablet magnesium 2020-0 Yes [id number] 400mg Take 1 Univers oxide 400 4-20 tablet by ity o f mg (241.3 00:00: mouth [place] mg 00 daily. Medical magnesium) Branch tablet magnesium 2020-0 Yes [id number] 400mg Take 1 Univers oxide 400 4-20 tablet by ity o f mg (241.3 00:00: mouth [place] mg 00 daily. Medical magnesium) Branch tablet magnesium 2020-0 Yes [id number] 400mg Take 1 Univers oxide 400 4-20 tablet by ity o f mg (241.3 00:00: mouth [place] mg 00 daily. Medical magnesium) Branch tablet magnesium 2020-0 Yes [id number] 400mg Take 1 Univers oxide 400 4-20 tablet by ity o f mg (241.3 00:00: mouth [place] mg 00 daily. Medical magnesium) Branch tablet magnesium 2020-0 Yes [id number] 400mg Take 1 Univers oxide 400 4-20 tablet by ity o f mg (241.3 00:00: mouth [place] mg 00 daily. Medical magnesium) Branch tablet magnesium 2020-0 Yes [id number] 400mg Take 1 Univers oxide 400 4-20 tablet by ity o f mg (241.3 00:00: mouth [place] mg 00 daily. Medical magnesium) Branch tablet magnesium 2020-0 Yes [id number] 400mg Take 1 Univers oxide 400 4-20 tablet by ity o f mg (241.3 00:00: mouth [place] mg 00 daily. Medical magnesium) Branch tablet magnesium 2020-0 Yes [id number] 400mg Take 1 Univers oxide 400 4-20 tablet by ity o f mg (241.3 00:00: mouth [place] mg 00 daily. Medical magnesium) Branch tablet magnesium 2020-0 Yes [id number] 400mg Take 1 Univers oxide 400 4-20 tablet by ity o f mg (241.3 00:00: mouth [place] mg 00 daily. Medical magnesium) Branch tablet magnesium Yes [id number] 400mg Take 1 Univers oxide 400 4-20 tablet by ity o f mg (241.3 00:00: mouth [place] mg 00 daily. Medical magnesium) Branch tablet magnesium Yes [id number] 400mg Take 1 Univers oxide 400 4-20 tablet by ity o f mg (241.3 00:00: mouth [place] mg 00 daily. Medical magnesium) Branch tablet magnesium 2020- No [id number] 400mg Take 1 Univers oxide 400 4-20 03-01 tablet by ity of mg (241.3 00:00: 00:00 mouth [place] mg 00 :00 daily. Medical magnesium) Branch tablet magnesium 2020- No [id number] 400mg Take 1 Univers oxide 400 4-20 03-01 tablet by ity of mg (241.3 00:00: 00:00 mouth [place] mg 00 :00 daily. Medical magnesium) Branch tablet traZODone traZODone Yes KAVIN 1.5 TAKE 1.5 UT HCl - 50 MG HCl - 50 MG 4-15 [facility] TABLET Physici Oral Tablet Oral Tablet 00:00: M.D. BEDTIME ans Escitalopra Escitalopra 0 Yes KAVIN 1 QD TAKE 1 UT m Oxalate m Oxalate 4-15 [facility] TABLET Physici 20 MG Oral 20 MG Oral 00:00: M.D. DAILY. ans Tablet Tablet 00 metroNIDAZO metroNIDAZO Yes CHASE TAKE 4 UT LE 500 MG LE 500 MG 4-09 [place] TABLETS Physici Oral Tablet Oral Tablet 00:00: M.D. ONCE. ans 00 multivit-mi 2020-0 Yes Take by Uni vers n/ferrous 3-23 mouth. ity of fumarate 14:12: [place] (MULTI 20 Medical VITAMIN Branch ORAL) multivit-mi 2020-0 Yes Take by Uni vers n/ferrous 3-23 mouth. ity of fumarate 14:12: [place] (MULTI 20 Medical VITAMIN Branch ORAL) multivit-mi 2020-0 Yes Take by Uni vers n/ferrous 3-23 mouth. ity of fumarate 14:12: [place] (MULTI 20 Medical VITAMIN Branch ORAL) multivit-mi 2020-0 Yes Take by Uni vers n/ferrous 3-23 mouth. ity of fumarate 14:12: [place] (MULTI 20 Medical VITAMIN Branch ORAL) multivit-mi 2020-0 Yes Take by Uni vers n/ferrous 3-23 mouth. ity of fumarate 14:12: [place] (MULTI 20 Medical VITAMIN Branch ORAL) multivit-mi 2020-0 Yes Take by Uni vers n/ferrous 3-23 mouth. ity of fumarate 14:12: [place] (MULTI 20 Medical VITAMIN Branch ORAL) multivit-mi 2020-0 Yes Take by Uni vers n/ferrous 3-23 mouth. ity of fumarate 14:12: [place] (MULTI 20 Medical VITAMIN Branch ORAL) multivit-mi 2020-0 Yes Take by Uni vers n/ferrous 3-23 mouth. ity of fumarate 14:12: [place] (MULTI 20 Medical VITAMIN Branch ORAL) multivit-mi 2020-0 Yes Take by Uni vers n/ferrous 3-23 mouth. ity of fumarate 14:12: [place] (MULTI 20 Medical VITAMIN Branch ORAL) multivit-mi 2020-0 Yes Take by Uni vers n/ferrous 3-23 mouth. ity of fumarate 14:12: [place] (MULTI 20 Medical VITAMIN Branch ORAL) multivit-mi 2020-0 Yes Take by Uni vers n/ferrous 3-23 mouth. ity of fumarate 14:12: [place] (MULTI 20 Medical VITAMIN Branch ORAL) multivit-mi 2020-0 Yes Take by Uni vers n/ferrous 3-23 mouth. ity of fumarate 14:12: [place] (MULTI 20 Medical VITAMIN Branch ORAL) multivit-mi 2020-0 Yes Take by Uni vers n/ferrous 3-23 mouth. ity of fumarate 14:12: [place] (MULTI 20 Medical VITAMIN Branch ORAL) multivit-mi 2020-0 Yes Take by Uni vers n/ferrous 3-23 mouth. ity of fumarate 14:12: [place] (MULTI 20 Medical VITAMIN Branch ORAL) multivit-mi 2020-0 Yes Take by Uni vers n/ferrous 3-23 mouth. ity of fumarate 14:12: [place] (MULTI 20 Medical VITAMIN Branch ORAL) multivit-mi 2020-0 Yes Take by Uni vers n/ferrous 3-23 mouth. ity of fumarate 14:12: [place] (MULTI 20 Medical VITAMIN Branch ORAL) multivit-mi 2020-0 Yes Take by Uni vers n/ferrous 3-23 mouth. ity of fumarate 14:12: [place] (MULTI 20 Medical VITAMIN Branch ORAL) multivit-mi 2020-0 Yes Take by Uni vers n/ferrous 3-23 mouth. ity of fumarate 14:12: [place] (MULTI 20 Medical VITAMIN Branch ORAL) multivit-mi 2020-0 Yes Take by Uni vers n/ferrous 3-23 mouth. ity of fumarate 14:12: [place] ([facility] 20 Medical VITAMIN Branch ORAL) multivit-mi 2020-0 Yes Take by Uni vers n/ferrous 3-23 mouth. ity of fumarate 14:12: [place] (MULTI 20 Medical VITAMIN Branch ORAL) multivit-mi 2020-0 Yes Take by Uni vers n/ferrous 3-23 mouth. ity of fumarate 14:12: [place] ([facility] 20 Medical VITAMIN Branch ORAL) multivit-mi 2020-0 Yes Take by Uni vers n/ferrous 3-23 mouth. ity of fumarate 14:12: [place] ([facility] 20 Medical VITAMIN Branch ORAL) multivit-mi 2020-0 Yes Take by Uni vers n/ferrous 3-23 mouth. ity of fumarate 14:12: [place] ([facility] 20 Medical VITAMIN Branch ORAL) multivit-mi 2020-0 Yes Take by Uni vers n/ferrous 3-23 mouth. ity of fumarate 14:12: [place] ([facility] 20 Medical VITAMIN Branch ORAL) multivit-mi 2020-0 Yes Take by Uni vers n/ferrous 3-23 mouth. ity of fumarate 14:12: [place] ([facility] 20 Medical VITAMIN Branch ORAL) multivit-mi 2020-0 Yes Take by Uni vers n/ferrous 3-23 mouth. ity of fumarate 14:12: [place] ([facility] 20 Medical VITAMIN Branch ORAL) acetaminoph 2020-0 Yes [id number] 1{capsu Take 1 Univers en-caff-but 3-23 le} capsule by it y of albital 00:00: mouth [place] (ESGIC) per 00 every 6 Medic al capsule (six) Branch hours as needed (migraine headache). proCHLORper 2020-0 Yes [id number] 10mg Take 1 Univers azine 3-23 tablet by ity of (COMPAZINE) 00:00: mouth [place] 10 mg 00 every 6 Medical tablet (six) Branch hours as needed (migraine headache). proCHLORper 2020-0 Yes [id number] 10mg Take 1 Univers azine 3-23 tablet by ity of (COMPAZINE) 00:00: mouth [place] 10 mg 00 every 6 Medical tablet (six) Branch hours as needed (migraine headache). proCHLORper 2020-0 Yes [id number] 10mg Take 1 Univers azine 3-23 tablet by ity of (COMPAZINE) 00:00: mouth [place] 10 mg 00 every 6 Medical tablet (six) Branch hours as needed (migraine headache). proCHLORper 2020-0 Yes [id number] 10mg Take 1 Univers azine 3-23 tablet by ity of (COMPAZINE) 00:00: mouth [place] 10 mg 00 every 6 Medical tablet (six) Branch hours as needed (migraine headache). proCHLORper 2020-0 Yes [id number] 10mg Take 1 Univers azine 3-23 tablet by ity of (COMPAZINE) 00:00: mouth [place] 10 mg 00 every 6 Medical tablet (six) Branch hours as needed (migraine headache). proCHLORper 2020-0 Yes [id number] 10mg Take 1 Univers azine 3-23 tablet by ity of (COMPAZINE) 00:00: mouth [place] 10 mg 00 every 6 Medical tablet (six) Branch hours as needed (migraine headache). proCHLORper 2020-0 Yes [id number] 10mg Take 1 Univers azine 3-23 tablet by ity of (COMPAZINE) 00:00: mouth [place] 10 mg 00 every 6 Medical tablet (six) Branch hours as needed (migraine headache). acetaminoph 2020-0 Yes [id number] 1{capsu Take 1 Univers en-caff-but 3-23 le} capsule by it y of albital 00:00: mouth [place] (ESGIC) per 00 every 6 Medic al capsule (six) Branch hours as needed (migraine headache). proCHLORper 2020-0 Yes [id number] 10mg Take 1 Univers azine 3-23 tablet by ity of (COMPAZINE) 00:00: mouth [place] 10 mg 00 every 6 Medical tablet (six) Branch hours as needed (migraine headache). acetaminoph 2020-0 Yes [id number] 1{capsu Take 1 Univers en-caff-but 3-23 le} capsule by it y of albital 00:00: mouth [place] (ESGIC) per 00 every 6 Medic al capsule (six) Branch hours as needed (migraine headache). proCHLORper 2020-0 Yes [id number] 10mg Take 1 Univers azine 3-23 tablet by ity of (COMPAZINE) 00:00: mouth [place] 10 mg 00 every 6 Medical tablet (six) Branch hours as needed (migraine headache). acetaminoph 2020-0 Yes [id number] 1{capsu Take 1 Univers en-caff-but 3-23 le} capsule by it y of albital 00:00: mouth [place] (ESGIC) per 00 every 6 Medic al capsule (six) Branch hours as needed (migraine headache). proCHLORper 2020-0 Yes [id number] 10mg Take 1 Univers azine 3-23 tablet by ity of (COMPAZINE) 00:00: mouth [place] 10 mg 00 every 6 Medical tablet (six) Branch hours as needed (migraine headache). acetaminoph 2020-0 Yes [id number] 1{capsu Take 1 Univers en-caff-but 3-23 le} capsule by it y of albital 00:00: mouth [place] (ESGIC) per 00 every 6 Medic al capsule (six) Branch hours as needed (migraine headache). proCHLORper 2020-0 Yes [id number] 10mg Take 1 Univers azine 3-23 tablet by ity of (COMPAZINE) 00:00: mouth [place] 10 mg 00 every 6 Medical tablet (six) Branch hours as needed (migraine headache). acetaminoph 2020-0 Yes [id number] 1{capsu Take 1 Univers en-caff-but 3-23 le} capsule by it y of albital 00:00: mouth [place] (ESGIC) per 00 every 6 Medic al capsule (six) Branch hours as needed (migraine headache). proCHLORper 2020-0 Yes [id number] 10mg Take 1 Univers azine 3-23 tablet by ity of (COMPAZINE) 00:00: mouth [place] 10 mg 00 every 6 Medical tablet (six) Branch hours as needed (migraine headache). acetaminoph 2020-0 Yes [id number] 1{capsu Take 1 Univers en-caff-but 3-23 le} capsule by it y of albital 00:00: mouth [place] (ESGIC) per 00 every 6 Medic al capsule (six) Branch hours as needed (migraine headache). proCHLORper 2020-0 Yes [id number] 10mg Take 1 Univers azine 3-23 tablet by ity of (COMPAZINE) 00:00: mouth [place] 10 mg 00 every 6 Medical tablet (six) Branch hours as needed (migraine headache). acetaminoph 2020-0 Yes [id number] 1{capsu Take 1 Univers en-caff-but 3-23 le} capsule by it y of albital 00:00: mouth [place] (ESGIC) per 00 every 6 Medic al capsule (six) Branch hours as needed (migraine headache). proCHLORper 2020-0 Yes [id number] 10mg Take 1 Univers azine 3-23 tablet by ity of (COMPAZINE) 00:00: mouth [place] 10 mg 00 every 6 Medical tablet (six) Branch hours as needed (migraine headache). acetaminoph 2020-0 Yes [id number] 1{capsu Take 1 Univers en-caff-but 3-23 le} capsule by it y of albital 00:00: mouth [place] (ESGIC) per 00 every 6 Medic al capsule (six) Branch hours as needed (migraine headache). proCHLORper 2020-0 Yes [id number] 10mg Take 1 Univers azine 3-23 tablet by ity of (COMPAZINE) 00:00: mouth [place] 10 mg 00 every 6 Medical tablet (six) Branch hours as needed (migraine headache). acetaminoph 2020-0 Yes [id number] 1{capsu Take 1 [facility] en-caff-but 3-23 le} capsule by it y of albital 00:00: mouth [place] (ESGIC) per 00 every 6 Medic al capsule (six) Branch hours as needed (migraine headache). proCHLORper 2020-0 Yes [id number] 10mg Take 1 [facility] azine 3-23 tablet by ity of (COMPAZINE) 00:00: mouth [place] 10 mg 00 every 6 Medical tablet (six) Branch hours as needed (migraine headache). acetaminoph 2020-0 Yes [id number] 1{capsu Take 1 [facility] en-caff-but 3-23 le} capsule by it y of albital 00:00: mouth [place] (ESGIC) per 00 every 6 Medic al capsule (six) Branch hours as needed (migraine headache). proCHLORper 2020-0 Yes [id number] 10mg Take 1 [facility] azine 3-23 tablet by ity of (COMPAZINE) 00:00: mouth [place] 10 mg 00 every 6 Medical tablet (six) Branch hours as needed (migraine headache). acetaminoph 2020-0 Yes [id number] 1{capsu Take 1 [facility] en-caff-but 3-23 le} capsule by it y of albital 00:00: mouth [place] (ESGIC) per 00 every 6 Medic al capsule (six) Branch hours as needed (migraine headache). proCHLORper 2020-0 Yes [id number] 10mg Take 1 [facility] azine 3-23 tablet by ity of (COMPAZINE) 00:00: mouth [place] 10 mg 00 every 6 Medical tablet (six) Branch hours as needed (migraine headache). acetaminoph 2020-0 Yes [id number] 1{capsu Take 1 [facility] en-caff-but 3-23 le} capsule by it y of albital 00:00: mouth [place] (ESGIC) per 00 every 6 Medic al capsule (six) Branch hours as needed (migraine headache). proCHLORper 2020-0 Yes [id number] 10mg Take 1 [facility] azine 3-23 tablet by ity of (COMPAZINE) 00:00: mouth [place] 10 mg 00 every 6 Medical tablet (six) Branch hours as needed (migraine headache). acetaminoph 2020-0 Yes [id number] 1{capsu Take 1 [facility] en-caff-but 3-23 le} capsule by it y of albital 00:00: mouth [place] (ESGIC) per 00 every 6 Medic al capsule (six) Branch hours as needed (migraine headache). proCHLORper 2020-0 Yes [id number] 10mg Take 1 [facility] azine 3-23 tablet by [facility]y of (COMPAZINE) 00:00: mouth [place] 10 mg 00 every 6 Medical tablet (six) Branch hours as needed (migraine headache). acetaminoph 2020-0 Yes [id number] 1{capsu Take 1 [facility] en-caff-but 3-23 le} capsule by it y of albital 00:00: mouth [place] (ESGIC) per 00 every 6 Medic al capsule (six) Branch hours as needed (migraine headache). proCHLORper 2020-0 Yes [id number] 10mg Take 1 [facility] azine 3-23 tablet by ity of (COMPAZINE) 00:00: mouth [place] 10 mg 00 every 6 Medical tablet (six) Branch hours as needed (migraine headache). acetaminoph 2020-0 Yes [id number] 1{capsu Take 1 [facility] en-caff-but 3-23 le} capsule by it y of albital 00:00: mouth [place] (ESGIC) per 00 every 6 Medic al capsule (six) Branch hours as needed (migraine headache). proCHLORper 2020-0 Yes [id number] 10mg Take 1 [facility] azine 3-23 tablet by [facility]y of (COMPAZINE) 00:00: mouth [place] 10 mg 00 every 6 Medical tablet (six) Branch hours as needed (migraine headache). acetaminoph 2020-0 Yes [id number] 1{capsu Take 1 [facility] en-caff-but 3-23 le} capsule by it y of albital 00:00: mouth [place] (ESGIC) per 00 every 6 Medic al capsule (six) Branch hours as needed (migraine headache). proCHLORper 2020-0 Yes [id number] 10mg Take 1 [facility] azine 3-23 tablet by ity of (COMPAZINE) 00:00: mouth [place] 10 mg 00 every 6 Medical tablet (six) Branch hours as needed (migraine headache). acetaminoph 2020-0 Yes [id number] 1{capsu Take 1 [facility] en-caff-but 3-23 le} capsule by it y of albital 00:00: mouth [place] (ESGIC) per 00 every 6 Medic al capsule (six) Branch hours as needed (migraine headache). proCHLORper 2020-0 Yes [id number] 10mg Take 1 [facility] azine 3-23 tablet by ity of (COMPAZINE) 00:00: mouth [place] 10 mg 00 every 6 Medical tablet (six) Branch hours as needed (migraine headache). acetaminoph 2020-0 Yes [id number] 1{capsu Take 1 [facility] en-caff-but 3-23 le} capsule by it y of albital 00:00: mouth [place] (ESGIC) per 00 every 6 Medic al capsule (six) Branch hours as needed (migraine headache). proCHLORper 2020-0 Yes [id number] 10mg Take 1 [facility] azine 3-23 tablet by ity of (COMPAZINE) 00:00: mouth [place] 10 mg 00 every 6 Medical tablet (six) Branch hours as needed (migraine headache). acetaminoph 2020-0 Yes [id number] 1{capsu Take 1 [facility] en-caff-but 3-23 le} capsule by it y of albital 00:00: mouth [place] (ESGIC) per 00 every 6 Medic al capsule (six) Branch hours as needed (migraine headache). proCHLORper 2020-0 Yes [id number] 10mg Take 1 [facility] azine 3-23 tablet by [facility]y of (COMPAZINE) 00:00: mouth [place] 10 mg 00 every 6 Medical tablet (six) Branch hours as needed (migraine headache). acetaminoph 2020-0 Yes [id number] 1{capsu Take 1 [facility] en-caff-but 3-23 le} capsule by it y of albital 00:00: mouth [place] (ESGIC) per 00 every 6 Medic al capsule (six) Branch hours as needed (migraine headache). proCHLORper 2020-0 Yes [id number] 10mg Take 1 [facility] azine 3-23 tablet by ity of (COMPAZINE) 00:00: mouth [place] 10 mg 00 every 6 Medical tablet (six) Branch hours as needed (migraine headache). acetaminoph 2020-0 Yes [id number] 1{capsu Take 1 [facility] en-caff-but 3-23 le} capsule by it y of albital 00:00: mouth [place] (ESGIC) per 00 every 6 Medic al capsule (six) Branch hours as needed (migraine headache). proCHLORper 2020-0 Yes [id number] 10mg Take 1 [facility] azine 3-23 tablet by [facility]y of (COMPAZINE) 00:00: mouth [place] 10 mg 00 every 6 Medical tablet (six) Branch hours as needed (migraine headache). acetaminoph 2020-0 Yes [id number] 1{capsu Take 1 [facility] en-caff-but 3-23 le} capsule by it y of albital 00:00: mouth [place] (ESGIC) per 00 every 6 Medic al capsule (six) Branch hours as needed (migraine headache). proCHLORper 2020-0 Yes [id number] 10mg Take 1 [facility] azine 3-23 tablet by ity of (COMPAZINE) 00:00: mouth [place] 10 mg 00 every 6 Medical tablet (six) Branch hours as needed (migraine headache). acetaminoph 2020-0 Yes [id number] 1{capsu Take 1 [facility] en-caff-but 3-23 le} capsule by it y of albital 00:00: mouth [place] (ESGIC) per 00 every 6 Medic al capsule (six) Branch hours as needed (migraine headache). proCHLORper 2020-0 Yes [id number] 10mg Take 1 [facility] azine 3-23 tablet by ity of (COMPAZINE) 00:00: mouth [place] 10 mg 00 every 6 Medical tablet (six) Branch hours as needed (migraine headache). acetaminoph 2020-0 Yes [id number] 1{capsu Take 1 [facility] en-caff-but 3-23 le} capsule by it y of albital 00:00: mouth [place] (ESGIC) per 00 every 6 Medic al capsule (six) Branch hours as needed (migraine headache). proCHLORper 2020-0 Yes [id number] 10mg Take 1 [facility] azine 3-23 tablet by ity of (COMPAZINE) 00:00: mouth [place] 10 mg 00 every 6 Medical tablet (six) Branch hours as needed (migraine headache). acetaminoph 2020-0 Yes [id number] 1{capsu Take 1 [facility] en-caff-but 3-23 le} capsule by it y of albital 00:00: mouth [place] (ESGIC) per 00 every 6 Medic al capsule (six) Branch hours as needed (migraine headache). proCHLORper 2020-0 Yes [id number] 10mg Take 1 [facility] azine 3-23 tablet by ity of (COMPAZINE) 00:00: mouth [place] 10 mg 00 every 6 Medical tablet (six) Branch hours as needed (migraine headache). acetaminoph 2020-0 Yes [id number] 1{capsu Take 1 [facility] en-caff-but 3-23 le} capsule by it y of albital 00:00: mouth [place] (ESGIC) per 00 every 6 Medic al capsule (six) Branch hours as needed (migraine headache). proCHLORper 2020-0 Yes [id number] 10mg Take 1 [facility] azine 3-23 tablet by ity of (COMPAZINE) 00:00: mouth [place] 10 mg 00 every 6 Medical tablet (six) Branch hours as needed (migraine headache). acetaminoph 2020-0 Yes [id number] 1{capsu Take 1 [facility] en-caff-but 3-23 le} capsule by it y of albital 00:00: mouth [place] (ESGIC) per 00 every 6 Medic al capsule (six) Branch hours as needed (migraine headache). proCHLORper 2020-0 Yes [id number] 10mg Take 1 [facility] azine 3-23 tablet by ity of (COMPAZINE) 00:00: mouth [place] 10 mg 00 every 6 Medical tablet (six) Branch hours as needed (migraine headache). acetaminoph 2020-0 Yes [id number] 1{capsu Take 1 [facility] en-caff-but 3-23 le} capsule by it y of albital 00:00: mouth [place] (ESGIC) per 00 every 6 Medic al capsule (six) Branch hours as needed (migraine headache). proCHLORper 2020-0 Yes [id number] 10mg Take 1 [facility] azine 3-23 tablet by ity of (COMPAZINE) 00:00: mouth [place] 10 mg 00 every 6 Medical tablet (six) Branch hours as needed (migraine headache). acetaminoph 2020-0 Yes [id number] 1{capsu Take 1 [facility] en-caff-but 3-23 le} capsule by it y of albital 00:00: mouth [place] (ESGIC) per 00 every 6 Medic al capsule (six) Branch hours as needed (migraine headache). proCHLORper 2020-0 Yes [id number] 10mg Take 1 [facility] azine 3-23 tablet by ity of (COMPAZINE) 00:00: mouth [place] 10 mg 00 every 6 Medical tablet (six) Branch hours as needed (migraine headache). acetaminoph 2020-0 Yes [id number] 1{capsu Take 1 [facility] en-caff-but 3-23 le} capsule by it y of albital 00:00: mouth [place] (ESGIC) per 00 every 6 Medic al capsule (six) Branch hours as needed (migraine headache). proCHLORper 2020-0 Yes [id number] 10mg Take 1 [facility] azine 3-23 tablet by ity of (COMPAZINE) 00:00: mouth [place] 10 mg 00 every 6 Medical tablet (six) Branch hours as needed (migraine headache). acetaminoph 2020-0 Yes [id number] 1{capsu Take 1 [facility] en-caff-but 3-23 le} capsule by it y of albital 00:00: mouth [place] (ESGIC) per 00 every 6 Medic al capsule (six) Branch hours as needed (migraine headache). proCHLORper 2020-0 Yes [id number] 10mg Take 1 [facility] azine 3-23 tablet by ity of (COMPAZINE) 00:00: mouth [place] 10 mg 00 every 6 Medical tablet (six) Branch hours as needed (migraine headache). acetaminoph 2020-0 Yes [id number] 1{capsu Take 1 [facility] en-caff-but 3-23 le} capsule by it y of albital 00:00: mouth [place] (ESGIC) per 00 every 6 Medic al capsule (six) Branch hours as needed (migraine headache). proCHLORper 2020-0 Yes [id number] 10mg Take 1 [facility] azine 3-23 tablet by ity of (COMPAZINE) 00:00: mouth [place] 10 mg 00 every 6 Medical tablet (six) Branch hours as needed (migraine headache). proCHLORper 2020-0 2020- No [id number] 10mg Take 1 [facility] azine 3-23 03-01 tablet by ity of (COMPAZINE) 00:00: 00:00 mouth [place] 10 mg 00 :00 every 6 Medical tablet (six) Branch hours as needed (migraine headache). proCHLORper 2020-0 2020- No [id number] 10mg Take 1 [facility] azine 3-23 03-01 tablet by ity of (COMPAZINE) 00:00: 00:00 mouth [place] 10 mg 00 :00 every 6 Medical tablet (six) Branch hours as needed (migraine headache). acetaminoph 2020-0 2019- No [id number] 1{capsu Take 1 [facility] en-caff-but 3-23 10-12 le} capsule by i ty of albital 00:00: 00:00 mouth [place] (ESGIC) per 00 :00 every 6 Medic al capsule (six) Branch hours as needed (migraine headache). multivit-mi 2020-0 Yes Take by Uni vers n/ferrous 2-27 mouth. ity of fumarate 18:59: [place] (MULTI 53 Medical VITAMIN Branch ORAL) multivit-mi 2020-0 Yes Take by [facility] vers n/ferrous 2-27 mouth. ity of fumarate 18:59: [place] (MULTI 53 Medical VITAMIN Branch ORAL) multivit-mi 2020-0 Yes Take by [facility] vers n/ferrous 2-27 mouth. ity of fumarate 18:59: [place] (MULTI 53 Medical VITAMIN Branch ORAL) multivit-mi 2020-0 Yes Take by [facility] vers n/ferrous 2-27 mouth. ity of fumarate 18:59: [place] (MULTI 53 Medical VITAMIN Branch ORAL) multivit-mi 2020-0 Yes Take by [facility] vers n/ferrous 2-27 mouth. ity of fumarate 18:59: [place] (MULTI 53 Medical VITAMIN Branch ORAL) proMETHazin 2020-0 Yes [id number] 25mg Take 1 [facility] e 25 mg 2-27 tablet by ity of tablet 00:00: mouth [place] 00 every 4 Medical (four) Branch hours as needed for Nausea and Vomiting (N/V). proMETHazin 2020-0 Yes [id number] 25mg Take 1 [facility] e 25 mg 2-27 tablet by ity of tablet 00:00: mouth [place] 00 every 4 Medical (four) Branch hours as needed for Nausea and Vomiting (N/V). proMETHazin 2020-0 Yes [id number] 25mg Take 1 [facility] e 25 mg 2-27 tablet by ity of tablet 00:00: mouth [place] 00 every 4 Medical (four) Branch hours as needed for Nausea and Vomiting (N/V). proMETHazin 2020-0 Yes [id number] 25mg Take 1 [facility] e 25 mg 2-27 tablet by ity of tablet 00:00: mouth [place] 00 every 4 Medical (four) Branch hours as needed for Nausea and Vomiting (N/V). proMETHazin 2020-0 Yes [id number] 25mg Take 1 [facility] e 25 mg 2-27 tablet by ity of tablet 00:00: mouth [place] 00 every 4 Medical (four) Branch hours as needed for Nausea and Vomiting (N/V). proMETHazin 2020-0 Yes [id number] 25mg Take 1 [facility] e 25 mg 2-27 tablet by ity of tablet 00:00: mouth [place] 00 every 4 Medical (four) Branch hours as needed for Nausea and Vomiting (N/V). proMETHazin 2020-0 Yes [id number] 25mg Take 1 [facility] e 25 mg 2-27 tablet by ity of tablet 00:00: mouth [place] 00 every 4 Medical (four) Branch hours as needed for Nausea and Vomiting (N/V). proMETHazin 2020-0 Yes [id number] 25mg Take 1 [facility] e 25 mg 2-27 tablet by ity of tablet 00:00: mouth [place] 00 every 4 Medical (four) Branch hours as needed for Nausea and Vomiting (N/V). proMETHazin 2020-0 Yes [id number] 25mg Take 1 [facility] e 25 mg 2-27 tablet by ity of tablet 00:00: mouth [place] 00 every 4 Medical (four) Branch hours as needed for Nausea and Vomiting (N/V). proMETHazin 2020-0 Yes [id number] 25mg Take 1 [facility] e 25 mg 2-27 tablet by ity of tablet 00:00: mouth [place] 00 every 4 Medical (four) Branch hours as needed for Nausea and Vomiting (N/V). proMETHazin 2020-0 Yes [id number] 25mg Take 1 [facility] e 25 mg 2-27 tablet by ity of tablet 00:00: mouth [place] 00 every 4 Medical (four) Branch hours as needed for Nausea and Vomiting (N/V). proMETHazin 2020-0 Yes [id number] 25mg Take 1 [facility] e 25 mg 2-27 tablet by ity of tablet 00:00: mouth [place] 00 every 4 Medical (four) Branch hours as needed for Nausea and Vomiting (N/V). proMETHazin 2020-0 Yes [id number] 25mg Take 1 [facility] e 25 mg 2-27 tablet by ity of tablet 00:00: mouth [place] 00 every 4 Medical (four) Branch hours as needed for Nausea and Vomiting (N/V). proMETHazin 2020-0 Yes [id number] 25mg Take 1 [facility] e 25 mg 2-27 tablet by ity of tablet 00:00: mouth [place] 00 every 4 Medical (four) Branch hours as needed for Nausea and Vomiting (N/V). proMETHazin 2020-0 Yes [id number] 25mg Take 1 [facility] e 25 mg 2-27 tablet by ity of tablet 00:00: mouth [place] 00 every 4 Medical (four) Branch hours as needed for Nausea and Vomiting (N/V). proMETHazin 2020-0 Yes [id number] 25mg Take 1 [facility] e 25 mg 2-27 tablet by ity of tablet 00:00: mouth [place] 00 every 4 Medical (four) Branch hours as needed for Nausea and Vomiting (N/V). proMETHazin 2020-0 Yes [id number] 25mg Take 1 [facility] e 25 mg 2-27 tablet by ity of tablet 00:00: mouth [place] 00 every 4 Medical (four) Branch hours as needed for Nausea and Vomiting (N/V). proMETHazin 2020-0 Yes [id number] 25mg Take 1 [facility] e 25 mg 2-27 tablet by ity of tablet 00:00: mouth [place] 00 every 4 Medical (four) Branch hours as needed for Nausea and Vomiting (N/V). proMETHazin 2020-0 Yes [id number] 25mg Take 1 [facility] e 25 mg 2-27 tablet by ity of tablet 00:00: mouth [place] 00 every 4 Medical (four) Branch hours as needed for Nausea and Vomiting (N/V). proMETHazin 2020-0 Yes [id number] 25mg Take 1 [facility] e 25 mg 2-27 tablet by ity of tablet 00:00: mouth [place] 00 every 4 Medical (four) Branch hours as needed for Nausea and Vomiting (N/V). proMETHazin 2020-0 Yes [id number] 25mg Take 1 [facility] e 25 mg 2-27 tablet by ity of tablet 00:00: mouth [place] 00 every 4 Medical (four) Branch hours as needed for Nausea and Vomiting (N/V). proMETHazin 2020-0 Yes [id number] 25mg Take 1 [facility] e 25 mg 2-27 tablet by ity of tablet 00:00: mouth [place] 00 every 4 Medical (four) Branch hours as needed for Nausea and Vomiting (N/V). proMETHazin 2020-0 Yes [id number] 25mg Take 1 [facility] e 25 mg 2-27 tablet by ity of tablet 00:00: mouth [place] 00 every 4 Medical (four) Branch hours as needed for Nausea and Vomiting (N/V). proMETHazin 2020-0 Yes [id number] 25mg Take 1 [facility] e 25 mg 2-27 tablet by ity of tablet 00:00: mouth [place] 00 every 4 Medical (four) Branch hours as needed for Nausea and Vomiting (N/V). proMETHazin 2020-0 Yes [id number] 25mg Take 1 [facility] e 25 mg 2-27 tablet by ity of tablet 00:00: mouth [place] 00 every 4 Medical (four) Branch hours as needed for Nausea and Vomiting (N/V). proMETHazin 2020-0 Yes [id number] 25mg Take 1 [facility] e 25 mg 2-27 tablet by ity of tablet 00:00: mouth [place] 00 every 4 Medical (four) Branch hours as needed for Nausea and Vomiting (N/V). proMETHazin 2020-0 Yes [id number] 25mg Take 1 [facility] e 25 mg 2-27 tablet by ity of tablet 00:00: mouth [place] 00 every 4 Medical (four) Branch hours as needed for Nausea and Vomiting (N/V). proMETHazin 2020-0 Yes [id number] 25mg Take 1 [facility] e 25 mg 2-27 tablet by ity of tablet 00:00: mouth [place] 00 every 4 Medical (four) Branch hours as needed for Nausea and Vomiting (N/V). proMETHazin 2020-0 Yes [id number] 25mg Take 1 [facility] e 25 mg 2-27 tablet by ity of tablet 00:00: mouth [place] 00 every 4 Medical (four) Branch hours as needed for Nausea and Vomiting (N/V). proMETHazin 2020-0 Yes [id number] 25mg Take 1 [facility] e 25 mg 2-27 tablet by ity of tablet 00:00: mouth [place] 00 every 4 Medical (four) Branch hours as needed for Nausea and Vomiting (N/V). proMETHazin 2020-0 Yes [id number] 25mg Take 1 [facility] e 25 mg 2-27 tablet by ity of tablet 00:00: mouth [place] 00 every 4 Medical (four) Branch hours as needed for Nausea and Vomiting (N/V). proMETHazin 2020-0 Yes [id number] 25mg Take 1 [facility] e 25 mg 2-27 tablet by ity of tablet 00:00: mouth [place] 00 every 4 Medical (four) Branch hours as needed for Nausea and Vomiting (N/V). proMETHazin 2020-0 Yes [id number] 25mg Take 1 [facility] e 25 mg 2-27 tablet by ity of tablet 00:00: mouth [place] 00 every 4 Medical (four) Branch hours as needed for Nausea and Vomiting (N/V). proMETHazin 2020-0 Yes [id number] 25mg Take 1 [facility] e 25 mg 2-27 tablet by ity of tablet 00:00: mouth [place] 00 every 4 Medical (four) Branch hours as needed for Nausea and Vomiting (N/V). proMETHazin 2020-0 Yes [id number] 25mg Take 1 [facility] e 25 mg 2-27 tablet by ity of tablet 00:00: mouth [place] 00 every 4 Medical (four) Branch hours as needed for Nausea and Vomiting (N/V). proMETHazin 2020-0 Yes [id number] 25mg Take 1 [facility] e 25 mg 2-27 tablet by ity of tablet 00:00: mouth [place] 00 every 4 Medical (four) Branch hours as needed for Nausea and Vomiting (N/V). proMETHazin 2020-0 Yes [id number] 25mg Take 1 [facility] e 25 mg 2-27 tablet by ity of tablet 00:00: mouth [place] 00 every 4 Medical (four) Branch hours as needed for Nausea and Vomiting (N/V). proMETHazin 2020-0 Yes [id number] 25mg Take 1 [facility] e 25 mg 2-27 tablet by ity of tablet 00:00: mouth [place] 00 every 4 Medical (four) Branch hours as needed for Nausea and Vomiting (N/V). proMETHazin 2020-0 Yes [id number] 25mg Take 1 [facility] e 25 mg 2-27 tablet by ity of tablet 00:00: mouth [place] 00 every 4 Medical (four) Branch hours as needed for Nausea and Vomiting (N/V). proMETHazin 2020-0 Yes [id number] 25mg Take 1 [facility] e 25 mg 2-27 tablet by ity of tablet 00:00: mouth [place] 00 every 4 Medical (four) Branch hours as needed for Nausea and Vomiting (N/V). proMETHazin 2020-0 Yes [id number] 25mg Take 1 [facility] e 25 mg 2-27 tablet by ity of tablet 00:00: mouth [place] 00 every 4 Medical (four) Branch hours as needed for Nausea and Vomiting (N/V). proMETHazin 2020-0 Yes [id number] 25mg Take 1 [facility] e 25 mg 2-27 tablet by ity of tablet 00:00: mouth [place] 00 every 4 Medical (four) Branch hours as needed for Nausea and Vomiting (N/V). proMETHazin 2020-0 Yes [id number] 25mg Take 1 [facility] e 25 mg 2-27 tablet by ity of tablet 00:00: mouth [place] 00 every 4 Medical (four) Branch hours as needed for Nausea and Vomiting (N/V). proMETHazin 2020-0 Yes [id number] 25mg Take 1 [facility] e 25 mg 2-27 tablet by ity of tablet 00:00: mouth [place] 00 every 4 Medical (four) Branch hours as needed for Nausea and Vomiting (N/V). proMETHazin 2020-0 2020- No [id number] 25mg Take 1 [facility] e 25 mg 2-27 03-01 tablet by ity of tablet 00:00: 00:00 mouth [place] 00 :00 every 4 Medical (four) Branch hours as needed for Nausea and Vomiting (N/V). proMETHazin 2020-0 2020- No [id number] 25mg Take 1 [facility] e 25 mg 2-27 03-01 tablet by ity of tablet 00:00: 00:00 mouth [place] 00 :00 every 4 Medical (four) Branch hours as needed for Nausea and Vomiting (N/V). cefTRIAXone 2020-0 2020- No 1000mg 1,000 mg, Univers (ROCEPHIN) 09-16 IV ity of 1,000 mg in 14:30: 14:05 [place], [place] NaCl 0.9% 00 :00 ONCE, 1 Medical (NS) 50 mL dose, Wed [facility] ch MINI-BAG 09/16/19 at 0830, 50 mL
Reas on for Anti-Infec tive: Empiric Therapy for Suspected Infection< br>Empiric Therapy Site: Urine
D uration of therapy: 72 hours cephALEXin 2020-0 2020- No [id number] 500mg Take 1 [facility] (KEFLEX) 09-16 [id number] capsule by it y of 500 mg 00:00: 05:59 mouth 3 [place] capsule 00 :00 (three) Medical times Branch daily for 7 days. cephALEXin 2020-0 2020- No [id number] 500mg Take 1 [facility] (KEFLEX) 09-16 [id number] capsule by it y of 500 mg 00:00: 05:59 mouth 3 [place] capsule 00 :00 (three) Medical times Branch daily for 7 days. cephALEXin 2020-0 2020- No [id number] 500mg Take 1 [facility] (KEFLEX) 09-16 [id number] capsule by it y of 500 mg 00:00: 05:59 mouth 3 [place] capsule 00 :00 (three) Medical times Branch daily for 7 days. proMETHazin 2020-0 Yes [id number] 25mg Take 1 [facility] e 25 mg 1-10 tablet by ity of tablet 00:00: mouth [place] 00 every 6 Medical (six) Branch hours as needed for Nausea and Vomiting (N/V). proMETHazin 2020-0 Yes [id number] 25mg Take 1 [facility] e 25 mg 1-10 tablet by ity of tablet 00:00: mouth [place] 00 every 6 Medical (six) Branch hours as needed for Nausea and Vomiting (N/V). proMETHazin 2020-0 Yes [id number] 25mg Take 1 [facility] e 25 mg 1-10 tablet by ity of tablet 00:00: mouth [place] 00 every 6 Medical (six) Branch hours as needed for Nausea and Vomiting (N/V). proMETHazin 2020-0 Yes [id number] 25mg Take 1 [facility] e 25 mg 1-10 tablet by ity of tablet 00:00: mouth [place] 00 every 6 Medical (six) Branch hours as needed for Nausea and Vomiting (N/V). proMETHazin 2020-0 Yes [id number] 25mg Take 1 [facility] e 25 mg 1-10 tablet by ity of tablet 00:00: mouth [place] 00 every 6 Medical (six) Branch hours as needed for Nausea and Vomiting (N/V). proMETHazin 2020-0 Yes [id number] 25mg Take 1 [facility] e 25 mg 1-10 tablet by ity of tablet 00:00: mouth [place] 00 every 6 Medical (six) Branch hours as needed for Nausea and Vomiting (N/V). proMETHazin 2020-0 Yes [id number] 25mg Take 1 [facility] e 25 mg 1-10 tablet by ity of tablet 00:00: mouth [place] 00 every 6 Medical (six) Branch hours as needed for Nausea and Vomiting (N/V). proMETHazin 2020-0 Yes [id number] 25mg Take 1 [facility] e 25 mg 1-10 tablet by ity of tablet 00:00: mouth [place] 00 every 6 Medical (six) Branch hours as needed for Nausea and Vomiting (N/V). proMETHazin 2020-0 Yes [id number] 25mg Take 1 [facility] e 25 mg 1-10 tablet by ity of tablet 00:00: mouth [place] 00 every 6 Medical (six) Branch hours as needed for Nausea and Vomiting (N/V). proMETHazin 2020-0 Yes [id number] 25mg Take 1 [facility] e 25 mg 1-10 tablet by ity of tablet 00:00: mouth [place] 00 every 6 Medical (six) Branch hours as needed for Nausea and Vomiting (N/V). proMETHazin 2020-0 Yes [id number] 25mg Take 1 [facility] e 25 mg 1-10 tablet by ity of tablet 00:00: mouth [place] 00 every 6 Medical (six) Branch hours as needed for Nausea and Vomiting (N/V). proMETHazin 2020-0 Yes [id number] 25mg Take 1 [facility] e 25 mg 1-10 tablet by ity of tablet 00:00: mouth [place] 00 every 6 Medical (six) Branch hours as needed for Nausea and Vomiting (N/V). proMETHazin 2020-0 Yes [id number] 25mg Take 1 [facility] e 25 mg 1-10 tablet by ity of tablet 00:00: mouth [place] 00 every 6 Medical (six) Branch hours as needed for Nausea and Vomiting (N/V). proMETHazin 2020-0 Yes [id number] 25mg Take 1 [facility] e 25 mg 1-10 tablet by ity of tablet 00:00: mouth [place] 00 every 6 Medical (six) Branch hours as needed for Nausea and Vomiting (N/V). proMETHazin 2020-0 2020- No [id number] 25mg Take 1 [facility] e 25 mg 1-10 -27 tablet by ity of tablet 00:00: 00:00 mouth [place] 00 :00 every 6 Medical (six) Branch hours as needed for Nausea and Vomiting (N/V). proMETHazin 2020-0 2020- No [id number] 25mg Take 1 Univers e 25 mg 1-10 -27 tablet by ity of tablet 00:00: 00:00 mouth [place] 00 :00 every 6 Medical (six) Branch hours as needed for Nausea and Vomiting (N/V). azithromyci 2020-0 2020- No [id number] 1000mg Take 2 Univers n 500 mg 1-10 -11 tablets by ity of tablet 00:00: 05[place] now for 1 Medical dose. Branch multivit-mi 2020-0 Yes Take by Uni vers n/ferrous 1-09 mouth. ity of fumarate 20:39: [place] [address] Medical VITAMIN Branch ORAL) multivit-mi 2020-0 Yes Take by Uni vers n/ferrous 1-09 mouth. ity of fumarate 20:39: [place] ([place] [address] Medical VITAMIN Branch ORAL) multivit-mi 2020-0 Yes Take by Uni vers n/ferrous 1-09 mouth. ity of fumarate 20:39: [place] ([place] [address] Medical VITAMIN Branch ORAL) multivit-mi 2020-0 Yes Take by Uni vers n/ferrous 1-09 mouth. ity of fumarate 20:39: [place] ([place] [address] Medical VITAMIN Branch ORAL) multivit-mi 2020-0 Yes Take by Uni vers n/ferrous 1-09 mouth. ity of fumarate 20:39: [place] ([place] [address] Medical VITAMIN Branch ORAL) multivit-mi 2020-0 Yes Take by Uni vers n/ferrous 1-09 mouth. ity of fumarate 20:39: [place] ([place] [address] Medical VITAMIN Branch ORAL) multivit-mi 2020-0 Yes Take by Uni vers n/ferrous 1-09 mouth. ity of fumarate 20:39: [place] ([facility] Medical VITAMIN Branch ORAL) multivit-mi 2020-0 Yes Take by Uni vers n/ferrous 1-09 mouth. ity of fumarate 20:39: [place] ([place] [address] Medical VITAMIN Branch ORAL) multivit-mi 2020-0 Yes Take by Uni vers n/ferrous 1-09 mouth. ity of fumarate 20:39: [place] ([place] [address] Medical VITAMIN Branch ORAL) multivit-mi 2020-0 Yes Take by Uni vers n/ferrous 1-09 mouth. ity of fumarate 20:39: [place] ([place] [address] Medical VITAMIN Branch ORAL) multivit-mi 2020-0 Yes Take by Uni vers n/ferrous 1-09 mouth. ity of fumarate 20:39: [place] ([place] [address] Medical VITAMIN Branch ORAL) multivit-mi 2020-0 Yes Take by Uni vers n/ferrous 1-09 mouth. ity of fumarate 20:39: [place] ([place] [address] Medical VITAMIN Branch ORAL) multivit-mi 2020-0 Yes Take by Uni vers n/ferrous 1-09 mouth. ity of fumarate 20:39: [place] ([place] [address] Medical VITAMIN Branch ORAL) multivit-mi 2020-0 Yes Take by Uni vers n/ferrous 1-09 mouth. ity of fumarate 20:39: [place] ([place] [address] Medical VITAMIN Branch ORAL) multivit-mi 2020-0 Yes Take by Uni vers n/ferrous 1-09 mouth. ity of fumarate 20:39: [place] ([place] [address] Medical VITAMIN Branch ORAL) ibuprofen 2017-0 Yes 600mg Take 1 Unive rs 600 mg 1-06 tablet by ity of tablet 00:00: mouth [place] every 6 Medical (six) Branch hours as needed for Pain (scale 1-3) or Pain (scale 4-6) (Pain). Take with food or milk. ibuprofen 2018-0 Yes 600mg Take 1 Un[facility] rs 600 mg 1-06 tablet by ity of tablet 00:00: mouth [place] every 6 Medical (six) Branch hours as needed for Pain (scale 1-3) or Pain (scale 4-6) (Pain). Take with food or milk. ibuprofen 2018-0 Yes 600mg Take 1 Unive rs 600 mg 1-06 tablet by ity of tablet 00:00: mouth [place] every 6 Medical (six) Branch hours as [...] (Pain). Take with food or milk. ibuprofen 0 Yes 600mg Take 1 Unive rs 600 mg 1-06 tablet by ity of tablet 00:00: mouth [place] 00 every 6 Medical (six) Branch hours as needed for Pain (scale 1-3) or Pain (scale 4-6) (Pain). Take with food or milk. ibuprofen 0 Yes 600mg Take 1 Unive rs 600 mg 1-06 tablet by ity of tablet 00:00: mouth [place] 00 every 6 Medical (six) Branch hours as needed for Pain (scale 1-3) or Pain (scale 4-6) (Pain). Take with food or milk. ibuprofen Yes 600mg Take 1 [facility] rs 600 mg 1-06 tablet by ity of tablet 00:00: mouth [place] 00 every 6 Medical (six) Branch hours as needed for Pain (scale 1-3) or Pain (scale 4-6) (Pain). Take with food or milk. ibuprofen Yes 600mg Take 1 Unive rs 600 mg 1-06 tablet by ity of tablet 00:00: mouth [place] 00 every 6 Medical (six) Branch hours as needed for Pain (scale 1-3) or Pain (scale 4-6) (Pain). Take with food or milk. ibuprofen 2020- No 600mg Take 1 Univ ers 600 mg 1-06 -27 tablet by ity of tablet 00:00: 00:00 mouth [place] 00 :00 every 6 Medical (six) Branch hours as needed for Pain (scale 1-3) or Pain (scale 4-6) (Pain). Take with food or milk. ibuprofen 0 2020- No 600mg Take 1 Univ ers 600 mg 1-06 -27 tablet by ity of tablet 00:00: 00:00 mouth [place] 00 :00 every 6 Medical (six) Branch hours as needed for Pain (scale 1-3) or Pain (scale 4-6) (Pain). Take with food or milk. riboflavin, 2016- Yes 400mg QD Take [address] vitamin B2, 5-19 mg [facility] Tab 00:00[facility] [address] [facility] (IMITREX) 5-19 tablet (50 [facility] 50 MG 00:00: mg total) Medical tablet 00 by mouth Center every 2 (two) hours as needed (migraine) Do not exceed 200mg in 24 hours.. riboflavin, Yes 400mg QD Take [address] vitamin B2, 5-19 mg [facility] mg Tab 00:00: mouth Medica l 00 daily. [place] SUMAtriptan Yes 50mg Take [address] [facility] (IMITREX) 5-19 tablet (50 [facility] 50 MG 00:00: mg total) Medical tablet 00 by mouth Center every 2 (two) hours as needed (migraine) Do not exceed 200mg in 24 hours.. riboflavin, Yes 400mg QD Take [address] vitamin B2, 5-19 mg [facility] mg Tab 00:00: mouth Medica l 00 daily. [place] SUMAtriptan Yes 50mg Take [address] [facility] [address] (IMITREX) 5-19 tablet (50 [facility] 50 MG 00:00: mg total) Medical tablet 00 by mouth Center every 2 (two) hours as needed (migraine) Do not exceed 200mg in 24 hours.. Cephalexin Cephalexin Yes HIND Q12H TAKE 1 [facility] 500 MG Oral 500 MG Oral 3-24 [facility]A [facility] Capsule Capsule 00:00: M.D. EVERY 12 ans 00 HOURS DAILY. Nitrofurant Nitrofurant Yes LIGIA Q12H TAKE 1 [facility] oin Monohyd oin Monohyd 3-15 KARRAM [facility] Macro 100 Macro 100 00:00: M.D. EVERY 12 ans MG Oral MG Oral 00 HOURS Capsule Capsule DAILY. Zofran 4 MG Zofran 4 MG 2014-08 Yes [place] Oral Tablet Oral Tablet 1-12 P hysici 00:00: ans 00 No known No [facility] medications [facility] No known No [facility] medications [facility] No known No [facility] medications [facility] No known No [facility] medications [facility] No known No [facility] medications [facility] No known No [facility] medications [facility] Immunizations Ordered Filled Immunization Date Status Comments [facility] e Immunization Name Name Rho(D) Immune 2020-02-18 Completed [facility] globulin - IM 16:03:00 Tdap 2020-02-18 Completed [place] [facility] 00:00:00 Influenza Virus 2019-11-16 Completed Universit y of Vaccine Quad .5 mL 00:00:00 [place] [facility] IM 6+ MO Branch Influenza Virus 2019-11-16 Completed Universit y of Vaccine Quad .5 mL 00:00:00 [place] [facility] IM 6+ MO Branch Influenza Virus 2019-11-16 Completed Universit y of Vaccine Quad .5 mL 00:00:00 [place] [facility] IM 6+ MO Branch Influenza Virus 2019-11-16 Completed Universit y of Vaccine Quad .5 mL 00:00:00 [place] [facility] IM 6+ MO Branch Influenza Virus 2019-11-16 Completed Universit y of Vaccine Quad .5 mL 00:00:00 [place] [facility] IM 6+ MO Branch Influenza Virus 2019-11-16 Completed Universit y of Vaccine Quad .5 mL 00:00:00 [place] [facility] IM 6+ MO Branch Influenza Virus 2019-11-16 Completed Universit y of Vaccine Quad .5 mL 00:00:00 [place] [facility] IM 6+ MO Branch Influenza Virus 2019-11-16 Completed Universit y of Vaccine Quad .5 mL 00:00:00 [place] [facility] IM 6+ MO Branch Influenza Virus 2019-11-16 Completed Universit y of Vaccine Quad .5 mL 00:00:00 [place] [facility] IM 6+ MO Branch Influenza Virus 2019-11-16 Completed Universit y of Vaccine Quad .5 mL 00:00:00 [place] [facility] IM 6+ MO Branch Influenza Virus 2019-11-16 Completed Universit y of Vaccine Quad .5 mL 00:00:00 [place] [facility] IM 6+ MO Branch Influenza Virus 2019-11-16 Completed Universit y of Vaccine Quad .5 mL 00:00:00 [place] [facility] IM 6+ MO Branch Influenza Virus 2019-11-16 Completed Universit y of Vaccine Quad .5 mL 00:00:00 [place] [facility] IM 6+ MO Branch Influenza Virus 2019-11-16 Completed Universit y of Vaccine Quad .5 mL 00:00:00 [place] [facility] IM 6+ MO Branch Influenza Virus 2019-11-16 Completed Universit y of Vaccine Quad .5 mL 00:00:00 [place] [facility] IM 6+ MO Branch Influenza Virus 2019-11-16 Completed Universit y of Vaccine Quad .5 mL 00:00:00 [place] [facility] IM 6+ MO Branch Influenza Virus [...] y of Vaccine Quad .5 mL 00:00:00 [place] [facility] IM 6+ MO Branch Influenza Virus 2019-11-16 Completed Universit y of Vaccine Quad .5 mL 00:00:00 [place] [facility] IM 6+ MO Branch Influenza Virus 2019-11-16 Completed Universit y of Vaccine Quad .5 mL 00:00:00 [place] [facility] IM 6+ MO Branch Influenza Virus 2019-11-16 Completed Universit y of Vaccine Quad .5 mL 00:00:00 [place] [facility] IM 6+ MO Branch Influenza Virus 2019-11-16 Completed Universit y of Vaccine Quad .5 mL 00:00:00 [place] [facility] 6+ MO Branch Influenza Virus 2019-11-16 Completed Universit y of Vaccine Quad .5 mL 00:00:00 [place] [facility] 6+ MO Branch Influenza Virus 2019-11-16 Completed Universit y of Vaccine Quad .5 mL 00:00:00 [place] [facility] 6+ MO Branch TDAP 2017-07-15 Completed University of 00:00:00 [facility] Rho (d) Immune 2017-07-15 Completed University of Globulin 00:00:00 [facility] TDAP 2017-07-15 Completed University of 00:00:00 [facility] Rho (d) Immune 2017-07-15 Completed University of Globulin 00:00:00 [facility] TDAP 2017-07-15 Completed University of 00:00:00 [facility] Rho (d) Immune 2017-07-15 Completed University of Globulin 00:00:00 [facility] TDAP 2017-07-15 Completed University of 00:00:00 [facility] Rho (d) Immune 2017-07-15 Completed University of Globulin 00:00:00 [facility] TDAP 2017-07-15 Completed University of 00:00:00 [facility] Rho (d) Immune 2017-07-15 Completed University of Globulin 00:00:00 [facility] Branch TDAP 2017-07-15 Completed University of 00:00:00 [facility] Branch Rho (d) Immune 2017-07-15 Completed University of Globulin 00:00:00 [facility] Branch TDAP 2017-07-15 Completed University of 00:00:00 [facility] Branch Rho (d) Immune 2017-07-15 Completed University of Globulin 00:00:00 [facility] TDAP 2017-07-15 Completed University of 00:00:00 [facility] Rho (d) Immune 2017-07-15 Completed University of Globulin 00:00:00 [facility] TDAP 2017-07-15 Completed University of 00:00:00 [facility] Rho (d) Immune 2017-07-15 Completed University of Globulin 00:00:00 [facility] TDAP 2017-07-15 Completed University of 00:00:00 [facility] Rho (d) Immune 2017-07-15 Completed University of Globulin 00:00:00 [facility] TDAP 2017-07-15 Completed University of 00:00:00 [facility] Rho (d) Immune 2017-07-15 Completed University of Globulin 00:00:00 [facility] TDAP 2017-07-15 Completed University of 00:00:00 [facility] Rho (d) Immune 2017-07-15 Completed University of Globulin 00:00:00 [facility] TDAP 2017-07-15 Completed University of 00:00:00 [facility] Rho (d) Immune 2017-07-15 Completed University of Globulin 00:00:00 [facility] TDAP 2017-07-15 Completed University of 00:00:00 [facility] Rho (d) Immune 2017-07-15 Completed University of Globulin 00:00:00 [facility] Branch TDAP 2017-07-15 Completed University of 00:00:00 [facility] Branch Rho (d) Immune 2017-07-15 Completed University of Globulin 00:00:00 [facility] TDAP 2017-07-15 Completed University of 00:00:00 [facility] Branch Rho (d) Immune 2017-07-15 Completed University of Globulin 00:00:00 [facility] Branch TDAP 2017-07-15 Completed University of 00:00:00 [facility] Rho (d) Immune 2017-07-15 Completed University of Globulin 00:00:00 [facility] TDAP 2017-07-15 Completed University of 00:00:00 [facility] Branch Rho (d) Immune 2017-07-15 Completed University of Globulin 00:00:00 [facility] TDAP 2017-07-15 Completed University of 00:00:00 [facility] Rho (d) Immune 2017-07-15 Completed University of Globulin 00:00:00 [facility] TDAP 2017-07-15 Completed University of 00:00:00 [facility] Rho (d) Immune 2017-07-15 Completed University of Globulin 00:00:00 [facility] TDAP 2017-07-15 Completed University of 00:00:00 [facility] Rho (d) Immune 2017-07-15 Completed University of Globulin 00:00:00 [facility] TDAP 2017-07-15 Completed University of 00:00:00 [facility] Rho (d) Immune 2017-07-15 Completed University of Globulin 00:00:00 [facility] TDAP 2017-07-15 Completed University of 00:00:00 [facility] Rho (d) Immune 2017-07-15 Completed University of Globulin 00:00:00 [facility] Tdap 2017-07-15 Completed University of 00:00:00 [facility] Rho (d) Immune 2017-07-15 Completed University of Globulin 00:00:00 [facility] TDAP 2017-07-15 Completed University of 00:00:00 [facility] Rho (d) Immune 2017-07-15 Completed University of Globulin 00:00:00 [facility] TDAP 2017-07-15 Completed University of 00:00:00 [facility] Rho (d) Immune 2017-07-15 Completed University of Globulin 00:00:00 [facility] TDAP 2017-07-15 Completed University of 00:00:00 [facility] Rho (d) Immune 2017-07-15 Completed University of Globulin 00:00:00 [facility] Branch TDAP 2017-07-15 Completed University of 00:00:00 [facility] Branch Rho (d) Immune 2017-07-15 Completed University of Globulin 00:00:00 [facility] Branch TDAP 2017-07-15 Completed University of 00:00:00 [facility] Branch Rho (d) Immune 2017-07-15 Completed University of Globulin 00:00:00 [facility] TDAP 2017-07-15 Completed University of 00:00:00 [facility] Rho (d) Immune 2017-07-15 Completed University of Globulin 00:00:00 [facility] Branch TDAP 2017-07-15 Completed University of 00:00:00 [facility] Branch Rho (d) Immune 2017-07-15 Completed University of Globulin 00:00:00 [facility] Branch TDAP 2017-07-15 Completed University of 00:00:00 [facility] Rho (d) Immune 2017-07-15 Completed University of Globulin 00:00:00 [facility] Tdap 2017-07-15 Completed University of 00:00:00 [facility] TDAP 2017-07-15 Completed University of 00:00:00 [facility] Rho (d) Immune 2017-07-15 Completed University of Globulin 00:00:00 [facility] Rho (d) Immune 2017-07-15 Completed University of Globulin 00:00:00 [facility] Tdap 2017-07-15 Completed University of 00:00:00 [facility] Rho (d) Immune 2017-07-15 Completed University of Globulin 00:00:00 [facility] Tdap 2017-07-15 Completed University of 00:00:00 [facility] Rho (d) Immune 2017-07-15 Completed University of Globulin 00:00:00 [facility] Tdap 2017-07-15 Completed University of 00:00:00 [facility] Rho (d) Immune 2017-07-15 Completed University of Globulin 00:00:00 [facility] Tdap 2017-07-15 Completed University of 00:00:00 [facility] Rho (d) Immune 2017-07-15 Completed University of Globulin 00:00:00 [facility] Tdap 2017-07-15 Completed University of 00:00:00 [facility] Rho (d) Immune 2017-07-15 Completed University of Globulin 00:00:00 [facility] Branch Tdap 2017-07-15 Completed University of 00:00:00 [facility] Branch Rho (d) Immune 2017-07-15 Completed University of Globulin 00:00:00 [facility] Tdap 2017-07-15 Completed University of 00:00:00 [facility] Branch Rho (d) Immune 2017-07-15 Completed University of Globulin 00:00:00 [facility] Tdap 2017-07-15 Completed University of 00:00:00 [facility] Rho (d) Immune 2017-07-15 Completed University of Globulin 00:00:00 [facility] Tdap 2017-07-15 Completed University of 00:00:00 [facility] Branch Rho (d) Immune 2017-07-15 Completed University of Globulin 00:00:00 [facility] Tdap 2017-07-15 Completed University of 00:00:00 [facility] Rho (d) Immune 2017-07-15 Completed University of Globulin 00:00:00 [facility] Tdap 2017-07-15 Completed University of 00:00:00 [facility] Rho (d) Immune 2017-07-15 Completed University of Globulin 00:00:00 [facility] Tdap 2017-07-15 Completed University of 00:00:00 [facility] Rho (d) Immune 2017-07-15 Completed University of Globulin 00:00:00 [facility] Tdap 2017-07-15 Completed University of 00:00:00 [facility] Rho (d) Immune 2017-07-15 Completed University of Globulin 00:00:00 [facility] Tdap 2017-07-15 Completed University of 00:00:00 [facility] Rho (d) Immune 2017-07-15 Completed University of Globulin 00:00:00 [facility] Tdap 2017-07-15 Completed University of 00:00:00 [facility] Rho (d) Immune 2017-07-15 Completed University of Globulin 00:00:00 [facility] Tdap 2017-07-15 Completed University of 00:00:00 [facility] Rho (d) Immune 2017-07-15 Completed University of Globulin 00:00:00 [facility] Tdap 2017-07-15 Completed University of 00:00:00 [facility] Rho (d) Immune 2017-07-15 Completed University of Globulin 00:00:00 [facility] Tdap 2017-07-15 Completed University of 00:00:00 [facility] Rho (d) Immune 2017-07-15 Completed University of Globulin 00:00:00 [facility] Branch Tdap 2017-07-15 Completed University of 00:00:00 [facility] Branch Rho (d) Immune 2017-07-15 Completed University of Globulin 00:00:00 [facility] Branch Tdap 2017-07-15 Completed University of 00:00:00 [facility] Branch Rho (d) Immune 2017-07-15 Completed University of Globulin 00:00:00 [facility] Tdap 2017-07-15 Completed University of 00:00:00 [facility] Rho (d) Immune 2017-07-15 Completed University of Globulin 00:00:00 [facility] Branch Tdap 2017-07-15 Completed University of 00:00:00 [facility] Branch Rho (d) Immune 2017-07-15 Completed University of Globulin 00:00:00 [facility] Branch Tdap 2017-07-15 Completed University of 00:00:00 [facility] Branch Rho (d) Immune 2017-07-15 Completed University of Globulin 00:00:00 [facility] Tdap 2017-07-15 Completed University of 00:00:00 [facility] Rho (d) Immune 2017-07-15 Completed University of Globulin 00:00:00 [facility] Tdap 2017-07-15 Completed University of 00:00:00 [facility] Rho (d) Immune 2017-07-15 Completed University of Globulin 00:00:00 [facility] Tdap 2017-07-15 Completed University of 00:00:00 [facility] Rho (d) Immune 2017-07-15 Completed University of Globulin 00:00:00 [facility] Tdap 2017-07-15 Completed University of 00:00:00 [facility] Rho (d) Immune 2017-07-15 Completed University of Globulin 00:00:00 [facility] Tdap 2017-07-15 Completed University of 00:00:00 [facility] Rho (d) Immune 2017-07-15 Completed University of Globulin 00:00:00 [facility] Tdap 2017-07-15 Completed University of 00:00:00 [facility] Rho (d) Immune 2017-07-15 Completed University of Globulin 00:00:00 [facility] Tdap 2017-07-15 Completed University of 00:00:00 [facility] Rho (d) Immune 2017-07-15 Completed University of Globulin 00:00:00 [facility] Branch Tdap 2017-07-15 Completed University of 00:00:00 [facility] Rho (d) Immune 2017-07-15 Completed University of Globulin 00:00:00 [facility] Tdap 2017-07-15 Completed University of 00:00:00 [facility] Rho (d) Immune 2017-07-15 Completed University of Globulin 00:00:00 [facility] Branch Tdap 2017-07-15 Completed University of 00:00:00 [facility] Rho (d) Immune 2017-07-15 Completed University of Globulin 00:00:00 [facility] Tdap 2017-07-15 Completed University of 00:00:00 [facility] Rho (d) Immune 2017-07-15 Completed University of Globulin 00:00:00 [facility] Tdap 2017-07-15 Completed University of 00:00:00 [facility] Rho (d) Immune 2017-07-15 Completed University of Globulin 00:00:00 [facility] Tdap 2017-07-15 Completed University of 00:00:00 [facility] Rho (d) Immune 2017-07-15 Completed University of Globulin 00:00:00 [facility] Tdap 2017-07-15 Completed University of 00:00:00 [facility] Rho (d) Immune 2017-07-15 Completed University of Globulin 00:00:00 [facility] Tdap 2017-07-15 Completed University of 00:00:00 [facility] Rho (d) Immune 2017-07-15 Completed University of Globulin 00:00:00 [facility] Tdap 2017-07-15 Completed University of 00:00:00 [facility] Rho (d) Immune 2017-07-15 Completed University of Globulin 00:00:00 [facility] Tdap 2017-07-15 Completed University of 00:00:00 [facility] Rho (d) Immune 2017-07-15 Completed University of Globulin 00:00:00 [facility] Tdap 2017-07-15 Completed University of 00:00:00 [facility] Rho (d) Immune 2017-07-15 Completed University of Globulin 00:00:00 [facility] TDAP 2017-07-15 Completed [facility] 00:00:00 [facility] Rho (d) Immune 2017-07-15 Completed [facility] of Globulin 00:00:00 [facility] TDAP 2017-07-15 Completed [facility] 00:00:00 [facility] Rho (d) Immune 2017-07-15 Completed [facility] Globulin 00:00:00 [facility] TDAP 2017-07-15 Completed [facility] 00:00:00 [facility] Rho (d) Immune 2017-07-15 Completed [facility] of Globulin 00:00:00 [facility] TDAP 2017-07-15 Completed [facility] 00:00:00 [facility] Rho (d) Immune 2017-07-15 Completed [facility] of Globulin 00:00:00 [facility] TDAP 2017-07-15 Completed [facility] 00:00:00 [facility] Rho (d) Immune 2017-07-15 Completed [facility] of Globulin 00:00:00 [facility] TDAP 2017-07-15 Completed [facility] 00:00:00 [facility] Rho (d) Immune 2017-07-15 Completed [facility] of Globulin 00:00:00 [facility] TDAP 2017-07-15 Completed [facility] 00:00:00 [facility] Rho (d) Immune 2017-07-15 Completed [facility] of Globulin 00:00:00 [facility] TDAP 2017-07-15 Completed [facility] 00:00:00 [facility] Rho (d) Immune 2017-07-15 Completed [facility] Globulin 00:00:00 [facility] Tdap (Adacel) 2015-09-22 [facility]:00 Influenza Virus 2015-05-25 Completed [facility]it y [facility] Vaccine Quad IM 3+ 00:00:00 [facility] Influenza Virus 2015-05-25 Completed [facility]it y of Vaccine Quad IM 3+ 00:00:00 [facility] Influenza Virus 2015-05-25 Completed [facility]it y of Vaccine Quad IM 3+ 00:00:00 [facility] Influenza Virus 2015-05-25 Completed [facility] y of Vaccine Quad IM 3+ 00:00:00 [facility] Influenza Virus 2015-05-25 Completed [facility] y of Vaccine Quad IM 3+ 00:00:00 [facility] Influenza Virus 2015-05-25 Completed [facility] y of Vaccine Quad IM 3+ 00:00:00 [facility] Influenza Virus 2015-05-25 Completed [facility] y of Vaccine Quad IM 3+ 00:00:00 [facility] Influenza Virus 2015-05-25 Completed [facility] y of Vaccine Quad IM 3+ 00:00:00 [facility] Influenza Virus 2015-05-25 Completed [facility] y of Vaccine Quad IM 3+ 00:00:00 [facility] Influenza Virus 2015-05-25 Completed [facility] of Vaccine Quad IM 3+ 00:00:00 [facility] Influenza Virus 2015-05-25 Completed [facility] y of Vaccine Quad IM 3+ 00:00:00 [facility] Influenza Virus 2015-05-25 Completed [facility] of Vaccine Quad IM 3+ 00:00:00 [facility] Influenza Virus 2015-05-25 Completed [facility] y of Vaccine Quad IM 3+ 00:00:00 [facility] Influenza Virus 2015-05-25 Completed [facility] y of Vaccine Quad IM 3+ 00:00:00 [facility] Influenza Virus 2015-05-25 Completed [facility] y of Vaccine Quad IM 3+ 00:00:00 [facility] Influenza Virus 2015-05-25 Completed [facility] y of Vaccine Quad IM 3+ 00:00:00 [facility] Influenza Virus 2015-05-25 Completed [facility] of Vaccine Quad IM 3+ 00:00:00 [facility] Influenza Virus 2015-05-25 Completed [facility] of Vaccine Quad IM 3+ 00:00:00 [facility] Influenza Virus 2015-05-25 Completed [facility] y of Vaccine Quad IM 3+ 00:00:00 [facility] Influenza Virus 2015-05-25 Completed [facility] of Vaccine Quad IM 3+ 00:00:00 [facility] Influenza Virus 2015-05-25 Completed [facility] of Vaccine Quad IM 3+ 00:00:00 [facility] Influenza Virus 2015-05-25 Completed [facility] of Vaccine Quad IM 3+ 00:00:00 [facility] Influenza Virus 2015-05-25 Completed [facility] of Vaccine Quad IM 3+ 00:00:00 [facility] Influenza Virus 2015-05-25 Completed [facility] of Vaccine Quad IM 3+ 00:00:00 [facility] Influenza Virus 2015-05-25 Completed [facility] of Vaccine Quad IM 3+ 00:00:00 [facility] Influenza Virus 2015-05-25 Completed [facility] of Vaccine Quad IM 3+ 00:00:00 [facility] Influenza Virus 2015-05-25 Completed [facility] y of Vaccine Quad IM 3+ 00:00:00 [facility] Influenza Virus 2015-05-25 Completed [facility] of Vaccine Quad IM 3+ 00:00:00 [facility] Influenza Virus 2015-05-25 Completed [facility] of Vaccine Quad IM 3+ 00:00:00 [facility] Influenza Virus 2015-05-25 Completed [facility] of Vaccine Quad IM 3+ 00:00:00 [facility] Influenza Virus 2015-05-25 Completed [facility] of Vaccine Quad IM 3+ 00:00:00 [facility] Influenza Virus 2015-05-25 Completed [facility] of Vaccine Quad IM 3+ 00:00:00 [facility] Influenza Virus 2015-05-25 Completed [facility] of Vaccine Quad IM 3+ 00:00:00 [facility] Influenza Virus 2015-05-25 Completed [facility] of Vaccine Quad IM 3+ 00:00:00 [facility] Influenza Virus 2015-05-25 Completed [facility] of Vaccine Quad IM 3+ 00:00:00 [facility] Influenza Virus 2015-05-25 Completed [facility] of Vaccine Quad IM 3+ 00:00:00 [facility] Influenza Virus 2015-05-25 Completed [facility] of Vaccine Quad IM 3+ 00:00:00 [facility] Influenza Virus 2015-05-25 Completed [facility] of Vaccine Quad IM 3+ 00:00:00 [facility] Influenza Virus 2015-05-25 Completed [facility] y of Vaccine Quad IM 3+ 00:00:00 [facility] Influenza Virus 2015-05-25 Completed [facility] y of Vaccine Quad IM 3+ 00:00:00 [facility] Influenza Virus 2015-05-25 Completed [facility] y of Vaccine Quad IM 3+ 00:00:00 [facility] Influenza Virus 2015-05-25 Completed [facility] y of Vaccine Quad IM 3+ 00:00:00 [facility] Influenza Virus 2015-05-25 Completed [facility] y of Vaccine Quad IM 3+ 00:00:00 [facility] Influenza Virus 2015-05-25 Completed [facility] y of Vaccine Quad IM 3+ 00:00:00 [facility] Influenza Virus 2015-05-25 Completed [facility] y of Vaccine Quad IM 3+ 00:00:00 [facility] Influenza Virus 2015-05-25 Completed [facility] y of Vaccine Quad IM 3+ 00:00:00 [facility] Influenza Virus 2015-05-25 Completed [facility] y of Vaccine Quad IM 3+ 00:00:00 [facility] Influenza Virus 2015-05-25 Completed [facility] y of Vaccine Quad IM 3+ 00:00:00 [facility] Influenza Virus 2015-05-25 Completed [facility] y of Vaccine Quad IM 3+ 00:00:00 [facility] Influenza Virus 2015-05-25 Completed [facility] y of Vaccine Quad IM 3+ 00:00:00 [facility] Influenza Virus 2015-05-25 Completed [facility] y of Vaccine Quad IM 3+ 00:00:00 [facility] Influenza Virus 2015-05-25 Completed [facility] y of Vaccine Quad IM 3+ 00:00:00 [facility] Influenza Virus 2015-05-25 Completed [facility] of Vaccine Quad IM 3+ 00:00:00 [facility] Influenza Virus 2015-05-25 Completed [facility] y of Vaccine Quad IM 3+ 00:00:00 [facility] Influenza Virus 2015-05-25 Completed [facility] y of Vaccine Quad IM 3+ 00:00:00 [facility] Influenza Virus 2015-05-25 Completed [facility] y of Vaccine Quad IM 3+ 00:00:00 [facility] Influenza Virus 2015-05-25 Completed [facility] y of Vaccine Quad IM 3+ 00:00:00 [facility] Influenza Virus 2015-05-25 Completed [facility] y of Vaccine Quad IM 3+ 00:00:00 [facility] Influenza Virus 2015-05-25 Completed [facility] y of Vaccine Quad IM 3+ 00:00:00 [facility] Influenza Virus 2015-05-25 Completed [facility] y of Vaccine Quad IM 3+ 00:00:00 [facility] Influenza Virus 2015-05-25 Completed [facility] y of Vaccine Quad IM 3+ 00:00:00 [facility] Influenza Virus 2015-05-25 Completed [facility] y of Vaccine Quad IM 3+ 00:00:00 [facility] Influenza Virus 2015-05-25 Completed [facility] y of Vaccine Quad IM 3+ 00:00:00 [facility] Influenza Virus 2015-05-25 Completed [facility] y of Vaccine Quad IM 3+ 00:00:00 [facility] Influenza Virus 2015-05-25 Completed [facility] y of Vaccine Quad IM 3+ 00:00:00 [facility] Influenza Virus 2015-05-25 Completed [facility] y of Vaccine Quad IM 3+ 00:00:00 [facility] Influenza Virus 2015-05-25 Completed [facility] y of Vaccine Quad IM 3+ 00:00:00 [facility] Influenza Virus 2015-05-25 Completed [facility] y of Vaccine Quad IM 3+ 00:00:00 [facility] Influenza Virus 2015-05-25 Completed [facility] y of Vaccine Quad IM 3+ 00:00:00 [facility] Influenza Virus 2015-05-25 Completed [facility] y of Vaccine Quad IM 3+ 00:00:00 [facility] Influenza Virus 2015-05-25 Completed [facility] y of Vaccine Quad IM 3+ 00:00:00 [facility] Influenza Virus 2015-05-25 Completed [facility] y of Vaccine Quad IM 3+ 00:00:00 [facility] Influenza Virus 2015-05-25 Completed [facility] y of Vaccine Quad IM 3+ 00:00:00 [facility] Influenza Virus 2015-05-25 Completed [facility] y of Vaccine Quad IM 3+ 00:00:00 [facility] Influenza Virus 2015-05-25 Completed [facility] y of Vaccine Quad IM 3+ 00:00:00 [facility] Influenza Virus 2015-05-25 Completed [facility] y of Vaccine Quad IM 3+ 00:00:00 [facility] Influenza Virus 2015-05-25 Completed [facility] of Vaccine Quad IM 3+ 00:00:00 [facility] Influenza Virus 2015-05-25 Completed [facility] of Vaccine Quad IM 3+ 00:00:00 [facility] Influenza Virus 2015-05-25 Completed [facility] y of Vaccine Quad IM 3+ 00:00:00 [facility] Influenza Virus 2015-05-25 Completed [facility] y of Vaccine Quad IM 3+ 00:00:00 [facility] Influenza Virus 2015-05-25 Completed [facility] y of Vaccine Quad IM 3+ 00:00:00 [facility] Influenza Virus 2015-05-25 Completed [facility] y of Vaccine Quad IM 3+ 00:00:00 [facility] Influenza Virus 2015-05-25 Completed [facility] y of Vaccine Quad IM 3+ 00:00:00 [facility] TDAP 2012-10-23 Completed [facility] 00:00:00 [facility] TDAP 2012-10-23 Completed [facility] 00:00:00 [facility] TDAP 2012-10-23 Completed [facility] 00:00:00 [facility] TDAP 2012-10-23 Completed [facility] 00:00:00 [facility] TDAP 2012-10-23 Completed [facility] 00:00:00 [facility] TDAP 2012-10-23 Completed [facility] 00:00:00 [facility] TDAP 2012-10-23 Completed [facility] 00:00:00 [facility] TDAP 2012-10-23 Completed [facility] 00:00:00 [facility] TDAP 2012-10-23 Completed [facility] 00:00:00 [facility] TDAP 2012-10-23 Completed [facility] 00:00:00 [facility] TDAP 2012-10-23 Completed [facility] 00:00:00 [facility] TDAP 2012-10-23 Completed [facility] 00:00:00 [facility] TDAP 2012-10-23 Completed [facility] 00:00:00 [facility] TDAP 2012-10-23 Completed [facility] 00:00:00 [facility] TDAP 2012-10-23 Completed [facility] 00:00:00 [facility] TDAP 2012-10-23 Completed [facility] 00:00:00 [facility] TDAP 2012-10-23 Completed [facility] 00:00:00 [facility] TDAP 2012-10-23 Completed [facility] 00:00:00 [facility] TDAP 2012-10-23 Completed [facility] 00:00:00 [facility] TDAP 2012-10-23 Completed [facility] 00:00:00 [facility] TDAP 2012-10-23 Completed [facility] 00:00:00 [facility] Tdap 2012-10-23 Completed [facility] 00:00:00 [facility] TDAP 2012-10-23 Completed [facility] 00:00:00 [facility] TDAP 2012-10-23 Completed [facility] 00:00:00 [facility] TDAP 2012-10-23 Completed [facility] 00:00:00 [facility] TDAP 2012-10-23 Completed [facility] 00:00:00 [facility] TDAP 2012-10-23 Completed [facility] 00:00:00 [facility] TDAP 2012-10-23 Completed [facility] 00:00:00 [facility] TDAP 2012-10-23 Completed [facility] 00:00:00 [facility] TDAP 2012-10-23 Completed [facility] 00:00:00 [facility] TDAP 2012-10-23 Completed [facility] 00:00:00 [facility] TDAP 2012-10-23 Completed [facility] 00:00:00 [facility] Tdap 2012-10-23 Completed [facility] 00:00:00 [facility] TDAP 2012-10-23 Completed [facility] 00:00:00 [facility] Tdap 2012-10-23 Completed [facility] 00:00:00 [facility] Tdap 2012-10-23 Completed [facility] 00:00:00 [facility] Tdap 2012-10-23 Completed [facility] 00:00:00 [facility] Tdap 2012-10-23 Completed [facility] 00:00:00 [facility] Tdap 2012-10-23 Completed [facility] 00:00:00 [facility] Tdap 2012-10-23 Completed [facility] 00:00:00 [facility] Tdap 2012-10-23 Completed [facility] 00:00:00 [facility] Tdap 2012-10-23 Completed [facility] 00:00:00 [facility] Tdap 2012-10-23 Completed [facility] 00:00:00 [facility] Tdap 2012-10-23 Completed [facility] 00:00:00 [facility] Tdap 2012-10-23 Completed [facility] 00:00:00 [facility] Tdap 2012-10-23 Completed [facility] 00:00:00 [facility] Tdap 2012-10-23 Completed [facility] 00:00:00 [facility] Tdap 2012-10-23 Completed [facility] 00:00:00 [facility] Tdap 2012-10-23 Completed [facility] 00:00:00 [facility] Tdap 2012-10-23 Completed [facility] 00:00:00 [facility] Tdap 2012-10-23 Completed [facility] 00:00:00 [facility] Tdap 2012-10-23 Completed [facility] 00:00:00 [facility] Tdap 2012-10-23 Completed [facility] 00:00:00 [facility] Tdap 2012-10-23 Completed [facility] 00:00:00 [facility] Tdap 2012-10-23 Completed [facility] 00:00:00 [facility] Tdap 2012-10-23 Completed [facility] 00:00:00 [facility] Tdap 2012-10-23 Completed [facility] 00:00:00 [facility] Tdap 2012-10-23 Completed [facility] 00:00:00 [facility] Tdap 2012-10-23 Completed [facility] 00:00:00 [facility] Tdap 2012-10-23 Completed [facility] 00:00:00 [facility] Tdap 2012-10-23 Completed [facility] 00:00:00 [facility] Tdap 2012-10-23 Completed [facility] 00:00:00 [facility] Tdap 2012-10-23 Completed [facility] 00:00:00 [facility] Tdap 2012-10-23 Completed [facility] 00:00:00 [facility] Tdap 2012-10-23 Completed [facility] 00:00:00 [facility] Tdap 2012-10-23 Completed [facility] 00:00:00 [facility] Tdap 2012-10-23 Completed [facility] 00:00:00 [facility] Tdap 2012-10-23 Completed [facility] 00:00:00 [facility] Tdap 2012-10-23 Completed [facility] 00:00:00 [facility] Tdap 2012-10-23 Completed [facility] 00:00:00 [facility] Tdap 2012-10-23 Completed [facility] 00:00:00 [facility] Tdap 2012-10-23 Completed [facility] 00:00:00 [facility] Tdap 2012-10-23 Completed [facility] 00:00:00 [facility] Tdap 2012-10-23 Completed [facility] 00:00:00 [facility] Tdap 2012-10-23 Completed [facility] 00:00:00 [facility] TDAP 2012-10-23 Completed [facility] 00:00:00 [facility] TDAP 2012-10-23 Completed [facility] 00:00:00 [facility] TDAP 2012-10-23 Completed [facility] 00:00:00 [facility] TDAP 2012-10-23 Completed [facility] 00:00:00 [facility] TDAP 2012-10-23 Completed [facility] 00:00:00 [facility] TDAP 2012-10-23 Completed [facility] 00:00:00 [facility] TDAP 2012-10-23 Completed [facility] 00:00:00 [facility] TDAP 2012-10-23 Completed [facility] 00:00:00 [facility] Vital Signs Vital Name Observation Time Observation Value Comments Source Systolic blood 2022-07-07 106 mm[Hg] University of pressure 17:16:00 [facility] Diastolic blood 2022-07-07 71 mm[Hg] University o f pressure 17:16:00 [facility] Heart rate 2022-07-07 78 /min University of 17:16:00 [facility] Body temperature 2022-07-07 36.94 Trice University of 17:16:00 [facility] Respiratory rate 2022-07-07 16 /min University of 17:16:00 [facility] Body height 2022-07-07 154.9 cm University of 17:16:00 [facility] Body weight 2022-07-07 76.658 kg University of 17:16:00 [facility] BMI 2022-07-07 31.93 kg/m2 University of 17:16:00 [facility] Oxygen saturation 2022-07-07 98 /min [facility] of in Arterial blood 17:16:00 [facility] o[facility] Systolic blood 2022-02-21 129 mm[Hg] University of pressure 18:27:00 [facility] Diastolic blood 2022-02-21 82 mm[Hg] University o f pressure 18:27:00 [facility] Heart rate 2022-02-21 63 /min University of 18:27:00 [facility] Body temperature 2022-02-21 36.94 Trice University of 18:27:00 [facility] Respiratory rate 2022-02-21 18 /min [facility] of 18:27:00 [facility] Body height 2022-02-21 154.9 cm University of 18:27:00 [facility] Body weight 2022-02-21 89.404 kg University of 18:27:00 [facility] BMI 2022-02-21 37.24 kg/m2 University of 18:27:00 [facility] Oxygen saturation 2022-02-21 97 /min University of in Arterial blood 18:27:00 [facility] by Pulse oximetry Branch Systolic blood 2021-12-26 113 mm[Hg] University of pressure 20:37:00 [facility] Diastolic blood 2021-12-26 77 mm[Hg] University o f pressure 20:37:00 [facility] Heart rate 2021-12-26 85 /min [facility] of 20:37:00 [facility] Body temperature 2021-12-26 36.83 Trice University of 20:37:00 [facility] Respiratory rate 2021-12-26 17 /min University of 20:37:00 [facility] Body height 2021-12-26 154.9 cm University of 20:37:00 [facility] Body weight 2021-12-26 90.266 kg University of 20:37:00 [facility] BMI 2021-12-26 37.60 kg/m2 University of 20:37:00 [facility] Oxygen saturation 2021-12-26 97 /min [facility] in Arterial blood 20:37:00 [facility] Systolic blood 2021-04-04 107 mm[Hg] University of pressure 20:06:00 [facility] Diastolic blood 2021-04-04 61 mm[Hg] University o f pressure 20:06:00 [facility] Heart rate 2021-04-04 91 /min University of 20:06:00 [facility] Body temperature 2021-04-04 36.94 Trice University of 20:06:00 [facility] Respiratory rate 2021-04-04 18 /min [facility] of 20:06:00 [facility] Body height 2021-04-04 154.9 cm University of 20:06:00 [facility] Body weight 2021-04-04 94.802 kg University of 20:06:00 [facility] BMI 2021-04-04 39.49 kg/m2 University of 20:06:00 [facility] Systolic blood 2021-02-13 113 mm[Hg] University of pressure 15:42:00 [facility] Diastolic blood 2021-02-13 81 mm[Hg] University o f pressure 15:42:00 [facility] Heart rate 2021-02-13 71 /min University of 15:42:00 [facility] Body temperature 2021-02-13 38.11 Trice [place] of 15:42:00 [facility] Respiratory rate 2021-02-13 20 /min University of 15:42:00 [facility] Body height 2021-02-13 154.9 cm University of 15:42:00 [facility] Body weight 2021-02-13 95.822 kg University of 15:42:00 [facility] BMI 2021-02-13 39.92 kg/m2 University of 15:42:00 [facility] Oxygen saturation 2021-02-13 98 /min [facility] in Arterial blood 15:42:00 [facility] Pulse oximetry Branch Systolic blood 2021-02-13 113 mm[Hg] University of pressure 15:42:00 [facility] Diastolic blood 2021-02-13 81 mm[Hg] University o f pressure 15:42:00 [facility] Heart rate 2021-02-13 71 /min [facility] of 15:42:00 [facility] Body temperature 2021-02-13 38.11 Trice University of 15:42:00 [facility] Respiratory rate 2021-02-13 20 /min [facility] of 15:42:00 [facility] Body height 2021-02-13 154.9 cm University of 15:42:00 [facility] Body weight 2021-02-13 95.822 kg University of 15:42:00 [facility] BMI 2021-02-13 39.92 kg/m2 University of 15:42:00 [facility] Oxygen saturation 2021-02-13 98 /min [facility] in Arterial blood 15:42:00 [facility] P[facility] Systolic blood 2020-12-10 129 mm[Hg] University of pressure 14:44:00 [facility] Diastolic blood 2020-12-10 71 mm[Hg] University o f pressure 14:44:00 [facility] Heart rate 2020-12-10 99 /min [facility] of 14:44:00 [facility] Body temperature 2020-12-10 36.22 Trice University of 14:44:00 [facility] Respiratory rate 2020-12-10 20 /min [facility] of 14:44:00 [facility] Body height 2020-12-10 154.9 cm University of 14:44:00 [facility] Body weight 2020-12-10 97.523 kg University of 14:44:00 [facility] BMI 2020-12-10 40.62 kg/m2 University of 14:44:00 [facility] Oxygen saturation 2020-12-10 99 /min [facility] in Arterial blood 14:44:00 [facility] Pulse [facility] Systolic blood 2020-12-10 129 mm[Hg] [facility] pressure 14:44:00 [facility] Diastolic blood 2020-12-10 71 mm[Hg] [facility] pressure 14:44:00 [facility] Heart rate 2020-12-10 99 /min [facility] 14:44:00 [facility] Body temperature 2020-12-10 36.22 Trice [facility] 14:44:00 [facility] Respiratory rate 2020-12-10 20 /min [facility] 14:44:00 [facility] Body height 2020-12-10 154.9 cm University of 14:44:00 [facility] Body weight 2020-12-10 97.523 kg University of 14:44:00 [facility] BMI 2020-12-10 40.62 kg/m2 University of 14:44:00 [facility] Oxygen saturation 2020-12-10 99 /min [facility] in Arterial blood 14:44:00 [facility] Systolic blood 2020-11-29 107 mm[Hg] [facility] pressure 20:12:00 [facility] Diastolic blood 2020-11-29 66 mm[Hg] [facility] pressure 20:12:00 [facility] Heart rate 2020-11-29 89 /min [facility] 20:12:00 [facility] Body height 2020-11-29 154.9 cm University of 20:12:00 [facility] Body weight 2020-11-29 97.523 kg University of 20:12:00 [facility] BMI 2020-11-29 40.62 kg/m2 [facility] of 20:12:00 [facility] Oxygen saturation 2020-11-29 95 /min [facility] in Arterial blood 20:12:00 [facility] by Pulse oximetry Branch Systolic blood 2020-11-29 107 mm[Hg] [facility] pressure 20:12:00 [facility] Diastolic blood 2020-11-29 66 mm[Hg] [facility] pressure 20:12:00 [facility] Heart rate 2020-11-29 89 /min [facility] of 20:12:00 [facility] Body height 2020-11-29 154.9 cm [facility] of 20:12:00 [facility] Body weight 2020-11-29 97.523 kg University of 20:12:00 [facility] BMI 2020-11-29 40.62 kg/m2 University [facility] 20:12:00 [facility] Oxygen saturation 2020-11-29 95 /min [facility] in Arterial blood 20:12:00 [facility] by Pulse oximetry Branch Systolic blood 2020-11-21 98 mm[Hg] [facility] pressure 14:00:00 [facility] Diastolic blood 2020-11-21 60 mm[Hg] [facility] pressure 14:00:00 [facility] Heart rate 2020-11-21 61 /min [facility] of 14:00:00 [facility] Body temperature 2020-11-21 36.83 Tirce [facility] 14:00:00 [facility] Respiratory rate 2020-11-21 18 /min [facility] 14:00:00 [facility] Body height 2020-11-21 154.9 cm [facility] of 14:00:00 [facility] Body weight 2020-11-21 97.977 kg University of 14:00:00 [facility] BMI 2020-11-21 40.81 kg/m2 [facility] of 14:00:00 [facility] Systolic blood 2020-11-09 127 mm[Hg] [facility] pressure 19:40:00 [facility] Diastolic blood 2020-11-09 88 mm[Hg] [facility] pressure 19:40:00 [facility] Heart rate 2020-11-09 78 /min [facility] of 19:40:00 [facility] Respiratory rate 2020-11-09 16 /min [facility] of 19:40:00 [facility] Oxygen saturation 2020-11-09 99 /min [facility] in Arterial blood 19:40:00 [facility] by Pulse oximetry Branch Body temperature 2020-11-09 36.94 Trice University of 17:57:00 [facility] Body weight 2020-11-09 99.791 kg University of 17:57:00 [facility] BMI 2020-11-09 41.57 kg/m2 University of 17:57:00 [facility] Systolic blood 2020-10-24 111 mm[Hg] [facility] pressure 15:18:00 [facility] Diastolic blood 2020-10-24 72 mm[Hg] [facility] pressure 15:18:00 [facility] Heart rate 2020-10-24 74 /min [facility] of 15:18:00 [facility] Body temperature 2020-10-24 36.61 Trice [facility] of 15:18:00 [facility] Respiratory rate 2020-10-24 18 /min [facility] of 15:18:00 [facility] Body height 2020-10-24 154.9 cm University of 15:18:00 [facility] Body weight 2020-10-24 100.699 kg University of 15:18:00 [facility] BMI 2020-10-24 41.95 kg/m2 University of 15:18:00 [facility] Systolic blood 2020-10-22 124 mm[Hg] [facility] pressure 18:19:00 [facility] Diastolic blood 2020-10-22 79 mm[Hg] [facility] pressure 18:19:00 [facility] Heart rate 2020-10-22 70 /min University of 18:19:00 [facility] Body temperature 2020-10-22 36.94 Trice University of 18:19:00 [facility] Respiratory rate 2020-10-22 18 /min [facility] of 18:19:00 [facility] Body height 2020-10-22 154.9 cm University of 18:19:00 [facility] Body weight 2020-10-22 99.791 kg University of 18:19:00 [facility] BMI 2020-10-22 41.57 kg/m2 University of 18:19:00 [facility] Oxygen saturation 2020-10-22 98 /min [facility] in Arterial blood 18:19:00 [facility] by Pulse oximetry Branch Systolic blood 2020-10-20 134 mm[Hg] [facility] pressure 04:03:00 [facility] Diastolic blood 2020-10-20 84 mm[Hg] [facility] pressure 04:03:00 [facility] Heart rate 2020-10-20 65 /min [facility] of 04:03:00 [facility] Respiratory rate 2020-10-20 18 /min [facility] of 04:03:00 [facility] Oxygen saturation 2020-10-20 99 /min [facility] in Arterial blood 04:03:00 [facility] by Pulse oximetry Branch Body temperature 2020-10-20 36.89 Trice University of 01:30:40 [facility] Body height 2020-10-20 154.9 cm University of 01:27:00 [facility] Body weight 2020-10-20 99.791 kg University of 01:27:00 [facility] BMI 2020-10-20 41.57 kg/m2 University of 01:27:00 [facility] Heart rate 2020-07-02 73 /min University of 00:21:00 [facility] Respiratory rate 2020-07-02 16 /min [facility] of 00:21:00 [facility] Oxygen saturation 2020-07-02 98 /min [facility] in Arterial blood 00:21:00 [facility] by Pulse oximetry Branch Systolic blood 2020-06-06 112 mm[Hg] [facility] pressure 15:51:00 [facility] Diastolic blood 2020-06-06 77 mm[Hg] [facility] pressure 15:51:00 [facility] Heart rate 2020-06-06 78 /min [facility] of 15:51:00 [facility] Body temperature 2020-06-06 37.06 Trice [facility] of 15:51:00 [facility] Respiratory rate 2020-06-06 20 /min [facility] of 15:51:00 [facility] Body height 2020-06-06 154.9 cm University of 15:51:00 [facility] Oxygen saturation 2020-06-06 98 /min [facility] in Arterial blood 15:51:00 [place] [facility] Systolic blood 2020-05-27 108 mm[Hg] [facility] pressure 15:22:00 [facility] Diastolic blood 2020-05-27 63 mm[Hg] [facility] pressure 15:22:00 [facility] Heart rate 2020-05-27 83 /min [facility] of 15:22:00 [facility] Body temperature 2020-05-27 36.17 Trice [facility] of 15:22:00 [facility] Respiratory rate 2020-05-27 19 /min [facility] of 15:22:00 [facility] Body height 2020-05-27 154.9 cm University of 15:22:00 [facility] Body weight 2020-05-27 92.534 kg University of 15:22:00 [facility] BMI 2020-05-27 38.55 kg/m2 University of 15:22:00 [facility] Oxygen saturation 2020-05-27 97 /min [facility] in Arterial blood 15:22:00 [facility] by Pulse oximetry Branch Systolic blood 2020-04-09 128 mm[Hg] [facility] pressure 15:38:00 [facility] Diastolic blood 2020-04-09 71 mm[Hg] [facility] pressure 15:38:00 [facility] Heart rate 2020-04-09 85 /min [facility] of 15:38:00 [facility] Body temperature 2020-04-09 37 Trice [facility] of 15:38:00 [facility] Respiratory rate 2020-04-09 18 /min [facility] of 15:38:00 [facility] Body height 2020-04-09 154.9 cm University of 15:38:00 [facility] Body weight 2020-04-09 99.882 kg University of 15:38:00 [facility] BMI 2020-04-09 41.61 kg/m2 University of 15:38:00 [facility] Oxygen saturation 2020-04-09 100 /min [facility] in Arterial blood 15:38:00 [place] [facility] Pulse [facility] Systolic blood 2020-03-11 119 mm[Hg] [facility] pressure 18:55:00 [facility] Diastolic blood 2020-03-11 68 mm[Hg] [facility] pressure 18:55:00 [facility] Heart rate 2020-03-11 83 /min [facility] of 18:38:00 [facility] Body temperature 2020-03-11 37 Trice [facility] of 18:38:00 [facility] Respiratory rate 2020-03-11 18 /min University of 18:38:00 [facility] Oxygen saturation 2020-03-11 100 /min [facility] in Arterial blood 18:38:00 [facility] by Pulse oximetry Branch Systolic blood 2020-03-07 131 mm[Hg] [facility] pressure 03:00:00 [facility] Diastolic blood 2020-03-07 78 mm[Hg] [facility] pressure 03:00:00 [facility] Heart rate 2020-03-07 81 /min University of 03:00:00 [facility] Respiratory rate 2020-03-07 18 /min University of 03:00:00 [facility] Oxygen saturation 2020-03-07 99 /min [place] of in Arterial blood 03:00:00 [facility] by Pulse oximetry Branch Body temperature 2020-03-07 36.83 Trice University of 00:50:00 [facility] Body height 2020-03-07 154.9 cm University of 00:50:00 [facility] Body weight 2020-03-07 95.255 kg University of 00:50:00 [facility] BMI 2020-03-07 39.68 kg/m2 University of 00:50:00 [facility] Systolic blood 2020-03-06 131 mm[Hg] [facility] pressure 15:38:00 [facility] Diastolic blood 2020-03-06 77 mm[Hg] [facility] pressure 15:38:00 [facility] Heart rate 2020-03-06 99 /min [facility] of 15:38:00 [facility] Body temperature 2020-03-06 37.06 Trice University of 15:38:00 [facility] Respiratory rate 2020-03-06 18 /min University of 15:38:00 [facility] Body weight 2020-03-06 99.791 kg University of 15:38:00 [facility] BMI 2020-03-06 41.57 kg/m2 University of 15:38:00 [facility] Oxygen saturation 2020-03-06 97 /min [facility] in Arterial blood 15:38:00 [facility] by Pulse oximetry Branch Systolic blood 2020-02-08 115 mm[Hg] [facility] pressure 02:31:00 [facility] Diastolic blood 2020-02-08 66 mm[Hg] [facility] pressure 02:31:00 [facility] Heart rate 2020-02-08 79 /min University of 02:31:00 [facility] Body temperature 2020-02-08 36.94 Trice University of 02:31:00 [facility] Respiratory rate 2020-02-08 16 /min University of 02:31:00 [facility] Body height 2020-02-08 154.9 cm University of 02:31:00 [facility] Body weight 2020-02-08 91.173 kg University of 02:31:00 [facility] BMI 2020-02-08 37.98 kg/m2 University of 02:31:00 [facility] Oxygen saturation 2020-02-08 99 /min [facility] in Arterial blood 02:31:00 [facility] by Pulse oximetry Branch Systolic blood 2019-12-15 120 mm[Hg] [facility] pressure 02:00:00 [facility] Diastolic blood 2019-12-15 66 mm[Hg] [facility] pressure 02:00:00 [facility] Heart rate 2019-12-15 65 /min University of 02:00:00 [facility] Respiratory rate 2019-12-15 17 /min University of 02:00:00 [facility] Oxygen saturation 2019-12-15 99 /min [facility] of in Arterial blood 02:00:00 [facility] by Pulse oximetry Branch Body temperature 2019-12-14 37.33 Trice University of 21:23:00 [facility] Body weight 2019-12-14 77.111 kg University of 21:23:00 [facility] BMI 2019-12-14 32.12 kg/m2 University of 21:23:00 [facility] Systolic blood 2019-11-27 117 mm[Hg] [facility] pressure 15:10:00 [facility] Diastolic blood 2019-11-27 74 mm[Hg] [facility] pressure 15:10:00 [facility] Heart rate 2019-11-27 80 /min [facility] of 15:10:00 [facility] Respiratory rate 2019-11-27 12 /min University of 15:10:00 [facility] Oxygen saturation 2019-11-27 97 /min [facility] of in Arterial blood 15:10:00 [facility] by Pulse oximetry Branch Body temperature 2019-11-27 37.28 Trice [facility] of 14:15:00 [facility] Body weight 2019-11-27 81.647 kg University of 14:15:00 [facility] BMI 2019-11-27 34.01 kg/m2 University of 14:15:00 [facility] Systolic blood 2019-11-16 116 mm[Hg] [facility] pressure 13:24:00 [facility] Diastolic blood 2019-11-16 74 mm[Hg] [facility] pressure 13:24:00 [facility] Heart rate 2019-11-16 78 /min [facility] of 13:24:00 [facility] Body temperature 2019-11-16 36.78 Trice University of 13:24:00 [facility] Respiratory rate 2019-11-16 18 /min University of 13:24:00 [facility] Body height 2019-11-16 154.9 cm University of 13:24:00 [facility] Body weight 2019-11-16 83.915 kg University of 13::00 [facility] BMI 2019-11-16 34.96 kg/m2 University of 13:24:00 [facility] Systolic blood 2019-10-22 130 mm[Hg] [facility] pressure 19:04:00 [facility] Diastolic blood 2019-10-22 83 mm[Hg] [facility] pressure 19:04:00 [facility] Heart rate 2019-10-22 77 /min University of 19:04:00 [facility] Body temperature 2019-10-22 36.28 Trice University of 19:04:00 [facility] Respiratory rate 2019-10-22 16 /min [facility] of 19:04:00 [facility] Body height 2019-10-22 154.9 cm University of 19:04:00 [facility] Body weight 2019-10-22 79.153 kg University of 19:04:00 [facility] BMI 2019-10-22 32.97 kg/m2 University of 19:04:00 [facility] Systolic blood 2019-10-01 117 mm[Hg] [facility] pressure 16:41:00 [facility] Diastolic blood 2019-10-01 73 mm[Hg] [facility] pressure 16:41:00 [facility] Heart rate 2019-10-01 86 /min University of 16:41:00 [facility] Body temperature 2019-10-01 36.67 Trice University of 16:41:00 [facility] Respiratory rate 2019-10-01 16 /min [facility] of 16:41:00 [facility] Body height 2019-10-01 154.9 cm University of 16:41:00 [facility] Body weight 2019-10-01 78.983 kg University of 16:41:00 [facility] BMI 2019-10-01 32.90 kg/m2 University of 16:41:00 [facility] Systolic blood 2019-09-16 117 mm[Hg] [facility] pressure 14:41:04 [facility] Diastolic blood 2019-09-16 78 mm[Hg] [facility] pressure 14:41:04 [facility] Heart rate 2019-09-16 74 /min University of 14:41:04 [facility] Body temperature 2019-09-16 36.94 Trice University of 14:41:04 [facility] Respiratory rate 2019-09-16 20 /min University of 14:41:04 [facility] Oxygen saturation 2019-09-16 100 /min [facility] of in Arterial blood 14:41:04 [facility] by Pulse oximetry Branch Body weight 2019-09-16 77.565 kg University of 12:24:00 [facility] BMI 2019-09-16 32.31 kg/m2 University of 12:24:00 [facility] Systolic blood 2019-09-09 126 mm[Hg] [facility] pressure 19:24:00 [facility] Diastolic blood 2019-09-09 82 mm[Hg] [facility] pressure 19:24:00 [facility] Heart rate 2019-09-09 86 /min University of 19:24:00 [facility] Body temperature 2019-09-09 37.22 Trice University of 19:24:00 [facility] Respiratory rate 2019-09-09 16 /min University of 19:24:00 [facility] Body height 2019-09-09 154.9 cm University of 19:24:00 [facility] Body weight 2019-09-09 77.565 kg University of 19:24:00 [facility] BMI 2019-09-09 32.31 kg/m2 University of 19:24:00 [facility] Oxygen saturation 2019-09-09 98 /min [facility] in Arterial blood 19:24:00 [facility] by Pulse oximetry Branch Systolic blood 2019-09-03 119 mm[Hg] [facility] pressure 20:38:00 [facility] Diastolic blood 2019-09-03 74 mm[Hg] [facility] pressure 20:38:00 [facility] Heart rate 2019-09-03 69 /min University of 20:38:00 [facility] Body temperature 2019-09-03 36.94 Trice University of 20:38:00 [facility] Respiratory rate 2019-09-03 16 /min [facility] 20:38:00 [facility] Body height 2019-09-03 154.9 cm [facility] 20:38:00 [facility] Body weight 2019-09-03 77.764 kg [facility] 20:38:00 [facility] BMI 2019-09-03 32.39 kg/m2 [facility] 20:38:00 [facility] Systolic blood 2020-07-27 123 mm[Hg] Location: [facility]; [place] [facility] pressure 13:24:00 Position: Sitting Diastolic blood 2020-07-27 86 mm[Hg] [facility] 13:24:00 Position: Sitting Body height 2020-07-27 61 [in_us] [facility] 13:24:00 Weight 2020-07-27 217.25 [lb_av] [facility] 13:24:00 Body mass index 2020-07-27 41.05 kg/m2 [facility] (BMI) [Ratio] 13:24:00 Body temperature 2020-07-27 97.3 [degF] Method: [facility] 13:24:00 Temporal Heart Rate 2020-07-27 82 /min [facility] 13:24:00 Systolic blood 2020-06-29 117 mm[Hg] Location[facility] 14:22:00 Position: Sitting Diastolic blood 2020-06-29 75 mm[Hg] [facility] 14:22:00 Position: Sitting Body height 2020-06-29 61 [in_us] [facility] 14:22:00 Weight 2020-06-29 212 [lb_av] [facility] 14:22:00 Body mass index 2020-06-29 40.06 kg/m2 [facility] (BMI) [Ratio] 14:22:00 Heart Rate 2020-06-29 80 /min [facility] 14:22:00 Body temperature 2020-06-29 97.5 [degF] Method: [facility] 14:22:00 Temporal Systolic blood 2020-03-31 108 mm[Hg] [facility] 13:58:00 Position: Sitting Diastolic blood 2020-03-31 72 mm[Hg] [facility] 13:58:00 Position: Sitting Body height 2020-03-31 61 [in_us] [facility] 13:58:00 Weight 2020-03-31 218 [lb_av] [facility] 13:58:00 Body mass index 2020-03-31 41.19 kg/m2 [facility] (BMI) [Ratio] 13:58:00 Body temperature 2020-03-31 97.5 [degF] Method: [facility] 13:58:00 Temporal Heart Rate 2020-03-31 98 /min [facility] 13:58:00 Systolic blood 2020-03-24 128 mm[Hg] Location[facility] 13:45:00 Position: Sitting Diastolic blood 2020-03-24 74 mm[Hg] [facility] 13:45:00 Position: Sitting Body height 2020-03-24 61 [in_us] [facility] 13:45:00 Weight 2020-03-24 214 [lb_av] [facility] 13:45:00 Body mass index 2020-03-24 40.44 kg/m2 [facility] (BMI) [Ratio] 13:45:00 Heart Rate 2020-03-24 85 /min [facility] 13:45:00 Systolic blood 2020-02-18 111 mm[Hg] [facility] 14:24:00 Position: Sitting Diastolic blood 2020-02-18 75 mm[Hg] [facility] 14:24:00 Position: Sitting Body height 2020-02-18 61 [in_us] [facility] 14:24:00 Weight 2020-02-18 209 [lb_av] [facility] 14:24:00 Body mass index 2020-02-18 39.49 kg/m2 [facility] (BMI) [Ratio] 14:24:00 Body temperature 2020-02-18 97.1 [degF] Method: Oral [facility] 14:24:00 Heart Rate 2020-02-18 81 /min [facility] 14:24:00 Heart Rate 2020-01-21 76 /min [facility] 16:04:00 O2 SAT 2020-01-21 97 % [facility] 16:04:00 Systolic blood 2020-01-21 110 mm[Hg] [facility] 15:44:00 Position: Sitting Diastolic blood 2020-01-21 70 mm[Hg] [facility] 15:44:00 Position: Sitting Heart Rate 2020-01-21 84 /min [facility] 15:44:00 Body height 2020-01-21 61 [in_us] [facility] 15:44:00 Weight 2020-01-21 202.25 [lb_av] [facility] 15:44:00 Body mass index 2020-01-21 38.22 kg/m2 [facility] (BMI) [Ratio] 15:44:00 Body temperature 2020-01-21 97.1 [degF] Method: Oral [facility] 15:44:00 Systolic blood 2020-01-14 113 mm[Hg] [facility] 13:13:00 Position: Sitting Diastolic blood 2020-01-14 75 mm[Hg] [facility] 13:13:00 Position: Sitting Body height 2020-01-14 61 [in_us] [facility] 13:13:00 Weight 2020-01-14 199.375 [lb_av] [facility] 13:13:00 Body mass index 2020-01-14 37.67 kg/m2 [facility] (BMI) [Ratio] 13:13:00 Body temperature 2020-01-14 98.3 [degF] Method: [facility] 13:13:00 Tympanic Heart Rate 2020-01-14 88 /min [facility] 13:13:00 Systolic blood 2019-11-30 106 mm[Hg] Location: RUE; [facility] pressure 14:06:00 Position: Sitting Diastolic blood 2019-11-30 73 mm[Hg] Location: RUE; [facility] pressure 14:06:00 Position: Sitting Body height 2019-11-30 61 [in_us] [facility] 14:06:00 Weight 2019-11-30 191 [lb_av] [facility] 14:06:00 Body mass index 2019-11-30 36.09 kg/m2 [facility] (BMI) [Ratio] 14:06:00 Heart Rate 2019-11-30 83 /min [facility] 14:06:00 Procedures Procedure Date / Time Performing Clinician Source Performed CONSENT/REFUSAL FOR 2021-12-26 20:32:40 Doctor Unassigned, Unive [facility] DIAGNOSIS AND TREATMENT [place] [facility] ASSIGNMENT OF BENEFITS 2021-12-26 20:32:30 [facility] [place] [facility] CONSENT FOR CONTRACEPTION 2021-04-04 05:01:00 Doctor Unasssally, [facility] [place] [facility] [place] POCT TEST 2021-04-04 00:00:00 Jhon [facility] POCT URINALYSIS W/O 2021-04-04 00:00:00 Jhon [facility] POCT GRP A STREP 2021-02-13 15:49:00 Fransisco Escobar [facility] ([facility]) [facility] POCT FLU A AND B 2020-12-10 14:54:00 Skyler Moser [facility] ([facility]) [facility] POCT GRP A STREP 2020-12-10 14:50:00 Skyler Moser [facility] ([facility]) [facility] DISCLOSURE AND CONSENT, 2020-11-21 05:01:00 Doctor Unasssally [facility] MEDICAL AND SURGICAL [facility] PROCEDURES POCT TEST 2020-11-21 00:00:00 Olman Sheth [facility] BASIC METABOLIC PANEL (NA, 2020-11-09 18:30:00 Ami Perry [facility] K, CL, CO2, GLUCOSE, BUN, Medica l Branch CREATININE, CA) CBC WITH DIFF 2020-11-09 18:30:00 Ami [facility] URINALYSIS 2020-11-09 18:30:00 Ami [facility] HB ABO GROUPING 2020-11-09 18:29:00 Ami Perry [facility] POCT TEST 2020-11-09 18:19:00 Ami Perry [facility] CONSENT/REFUSAL FOR 2020-11-09 17:47:24 Doctor Unasssally [facility] DIAGNOSIS AND TREATMENT [place] [facility] POCT URINALYSIS W/O 2020-10-24 00:00:00 Olman Sheth [facility] US OVARY TORSION 2020-10-20 03:54:07 Garrett Lares [facility] LIPASE 2020-10-20 02:31:00 Garrett Lares [facility] COMP. METABOLIC PANEL 2020-10-20 02:31:00 Garrett Lares [facility] ([id number]) [facility] CBC WITH DIFF 2020-10-20 02:31:00 Garrett Lares [facility] PROTHROMBIN TIME / INR 2020-10-20 02:31:00 Garrett Lares [facility] URINALYSIS 2020-10-20 02:31:00 Garrett Lares [facility] POCT TEST 2020-10-20 01:42:00 Garrett Lares [facility] [QL] CBC (INCLUDES 2020-07-04 00:00:00 [facility] DIFF/PLT) [Q] VON [place] 2020-07-04 00:00:00 [facility] COMPREHENSIVE PANEL [QL] PROTHROMBIN W/INR + 2020-07-04 00:00:00 [facility] PARTIAL THROMBOPLASTIN TIMES . [facility] - PAP w/reflex 2020-06-29 00:00:00 [facility] HPV if ASC-US or above POCT GRP A STREP 2020-06-06 16:16:00 Shawn [facility] (MOLECULAR) [facility] POCT FLU A AND B 2020-06-06 16:03:00 Shawn [facility] ([facility]) [facility] XR ANKLE 3+ VW RIGHT 2020-05-27 17:21:16 Shawn [facility] XR SHOULDER 2+ VW RIGHT 2020-05-27 17:21:16 Shawn [facility] XR WRIST 3+ VW LEFT 2020-05-27 17:21:16 Fransisco Escobar [facility] COVID-19 (ID NOW RAPID 2020-04-09 16:05:00 Olman Sheth [facility] TESTING) [facility] URINALYSIS 2020-04-09 15:53:00 Olman Sheth [place] o [facility] ADC ONLY - FERN TEST 2020-04-09 15:53:00 Olman Sheth [facility] [QL] CMP W/EGFR 2020-03-24 00:00:00 [facility] [Q] BILE ACIDS, 2020-03-24 00:00:00 [facility] FRACTIONATED AND TOTAL, [QL] CULTURE, URINE, 2020-03-24 00:00:00 [facility] ROUTINE US PELVIS > 14 2020-03-11 21:08:41 Joey Mendoza [facility] ADC ONLY - FERN TEST 2020-03-11 19:03:[address] [facility] CONSENT/REFUSAL FOR 2020-03-11 17:53:01 Doctor Unassigned, [facility] DIAGNOSIS AND TREATMENT [place] [place] [facility] . [facility] - 2020-03-09 00:00:00 [facility] COVID-19/SARS-Cov-2 NOTICE OF PRIVACY 2020-03-07 01:17:26 Doctor Unasssally, [facility] PRACTICES [place] [facility] BASIC METABOLIC PANEL (NA, 2020-03-07 01:11:00 Mona Saxena [facility] K, CL, CO2, GLUCOSE, BUN, Medica l Branch CREATININE, CA) CBC WITH DIFFERENTIAL 2020-03-07 01:11:00 Mona Saxena [facility] COVID-19 (ID NOW RAPID 2020-03-07 01:11:00 Mona Saxena [facility] TESTING) Medical Branch CONSENT/REFUSAL FOR 2020-03-06 15:19:43 Doctor Unasssally, [facility] DIAGNOSIS AND TREATMENT [place] [facility] [Q] GLUCOSE, GESTATIONAL 2020-02-18 00:00:00 [facility] SCREEN (50G)-130 CUTOFF [QL] CBC (INCLUDES 2020-02-18 00:00:00 [facility] DIFF/PLT) NOTICE OF PRIVACY 2020-02-08 02:22:40 Doctor Unassigned, [facility] PRACTICES [place] [facility] CONSENT/REFUSAL FOR 2020-02-08 02:22:25 Doctor Unaaurelio, [facility] DIAGNOSIS AND TREATMENT [place] [facility] [place] EKG w/Rhythm Strip 2020-01-21 00:00:00 [facility] [QL] URINALYSIS, COMPLETE 2020-01-21 00:00:00 [facility] [Q] GLUCOSE, GESTATIONAL 2020-01-21 00:00:00 [facility] SCREEN (50G)-130 CUTOFF [QL] CBC (INCLUDES 2020-01-21 00:00:00 [facility] DIFF/PLT) [QL] CULTURE, URINE, 2020-01-21 00:00:00 [facility] ROUTINE . [facility] - Affirm VPIII 2020-01-15 00:00:00 [facility] (BV Panel) URINALYSIS 2019-12-15 01:02:00 Garrett Lares [facility] LIPASE 2019-12-14 23:44:[address] [facility] TROPONIN I 2019-12-14 23:44:[address] [facility] COMP. METABOLIC PANEL 2019-12-14 23:44:00 Mg Stallworth [facility] ([id number]) [facility] CBC WITH DIFFERENTIAL 2019-12-14 23:44:00 Mg Stallworth [facility] PROTHROMBIN TIME / INR 2019-12-14 23:44:00 Mg Stallworth [facility] ACTIVATED PARTIAL THRMPLAS 2019-12-14 23:44:00 Mg Stallworth [facility] CORONAVIRUS COVID-19 2019-12-14 23:44:00 Mg Stallworth [facility] TESTING [facility] NOTICE OF PRIVACY 2019-12-14 21:11:25 Doctor Unassigned, [facility] PRACTICES [place] [facility] CONSENT/REFUSAL FOR 2019-12-14 21:08:11 Doctor Unassigned, [facility] DIAGNOSIS AND TREATMENT [place] [facility] [Q] [id number] 2019-11-30 00:00:00 [facility] DEHYDROGENASE, QUANT. [Q] HEMOGLOBINOPATHY 2019-11-30 00:00:00 [facility] EVALUATION [Q] HIV AB, HIV 1/2, EIA, 2019-11-30 00:00:00 [facility] WITH REFLEXES [Q] OBSTETRIC PANEL 2019-11-30 00:00:00 [facility] [Q] TREPONEMA PALLIDUM AB, 2019-11-30 00:00:00 [facility] PARTICLE AGGLUTINATION [QL] CULTURE, URINE, 2019-11-30 00:00:00 [facility] ROUTINE [QL] URINALYSIS, COMPLETE 2019-11-30 00:00:00 [facility] [Q] IRON, TIBC AND 2019-11-30 00:00:00 [facility] FERRITIN PANEL [QL] FOLATE, SERUM 2019-11-30 00:00:00 [facility] . [facility] - GC/Chlamydia 2019-11-30 00:00:00 [facility] . [facility] - Affirm VPIII 2019-11-30 00:00:00 [facility] (BV Panel) URINALYSIS 2019-11-27 15:14:00 Suman Sun [place] [facility] US PELVIS > 14 2019-11-27 15:05:58 Suman Sun [facility] CONSENT/REFUSAL FOR 2019-11-27 14:10:39 Doctor Unassigned, [facility] DIAGNOSIS AND TREATMENT [place] [facility] [place] ASSIGNMENT OF BENEFITS 2019-11-16 14:34:05 Doctor Unassigned, [facility] Name [facility] FLU VACC ([phone]), 6+ 2019-11-16 14:11:55 Olman Sheth [facility] MONTHS, IM, QUAD [facility] MEDICATION CORRESPONDENCE 2019-10-28 06:01:00 Doctor Unaaurelio, [facility] [place] [facility] POCT URINALYSIS 2019-10-22 19:04:00 Fernandez Stiles [facility] POCT URINALYSIS 2019-10-01 16:48:00 Fernandez Stiles [facility] US FIRST 2019-09-16 14:37:56 Mg Stallworth [facility] TRIMESTER LESS THAN 14 Medical B ranch WEEKS WITH TRANSVAGINAL HEPATIC FUNCTION PANEL 2019-09-16 12:48:00 Mg Stallworth [facility] ([id number]) (ALB,T.PRO,BILI Medical Branch T,BU/BC,ALT,AST,ALK PHOS) BASIC METABOLIC PANEL (NA, 2019-09-16 12:48:00 Mg Stallworth [facility] K, CL, CO2, GLUCOSE, BUN, Medica l Branch CREATININE, CA) TOTAL BETA HCG ASSAY 2019-09-16 12:48:00 Mg Stallworth [facility] CBC WITH DIFFERENTIAL 2019-09-16 12:48:00 Mg Stallworth [facility] PROTHROMBIN TIME / INR 2019-09-16 12:48:00 Mg Stallworth [facility] ACTIVATED PARTIAL THRMPLAS 2019-09-16 12:48:00 Mg Stallworth [facility] HB ABO GROUPING 2019-09-16 12:48:[address] [facility] URINALYSIS 2019-09-16 12:35:[address] [facility] POCT TEST 2019-09-16 12:35:00 Mg Stallworth [facility] CONSENT/REFUSAL FOR 2019-09-16 12:18:18 Doctor Unaaurelio, [facility] DIAGNOSIS AND TREATMENT [facility] NOTICE OF PRIVACY 2019-09-09 19:06:44 Doctor Unaaurelio, [facility]SENT/REFUSAL FOR 2019-09-09 19:06:32 Doctor Unaaurelio, [facility] DIAGNOSIS AND TREATMENT [facility] CBC WITH DIFFERENTIAL 2019-09-03 22:05:00 Fernandez Stiles [facility] RUBELLA SCREEN IGG 2019-09-03 22:05:00 Fernandez Stiles [facility] VZV ANTIBODY SCREEN 2019-09-03 22:05:[address] [facility] HEPATITIS B SURFACE 2019-09-03 22:05:00 Fernandez Stiles [facility] GC & CHLAMYDIA AMPLIFIED 2019-09-03 22:05:00 Fernandez Stiles [facility] ASSAY [facility] PAP SMEAR-LIQUID BASED-CP 2019-09-03 22:05:00 Fernandez Stiles [facility] HIV 1/2 AG-AB WITH REFLEX 2019-09-03 22:03:00 Fernandez Stiles [facility] GALV ONLY - SYPHILIS 2019-09-03 22:03:00 [facility] [place] HB ABO GROUPING 2019-09-03 21:40:00 Fernandez St[facility] POCT URINALYSIS W/O 2019-09-03 20:42:00 Fernandez Stiles [facility] [place] SPECIFIC GRAVITY [facility] POCT TEST 2019-09-03 20:40:00 Fernandez Stiles Uni versity [facility] History of Tonsillectomy [facility] History of Dilation And [facility] Curettage History of Appendectomy [facility] Plan of Care Planned Activity Planned Date Details Comments Source Future Scheduled Test 2020-03-21 00:00:00 . [facility] [place] [facility] COVID-19/SARS-Cov-2 [code = . [facility] - COVID-19/SARS-Cov-2 ] Diagnostic Test Pending 2020-01-15 00:00:00 . [facility] - Affirm [place] [facility] VPIII (BV Panel) [code = . [facility] - Affirm VPIII (BV Panel)] Encounters Start End Encounter Admission Attending Care Care Encounter Source Date/Time Date/Time Type Type Clinicians Facility Department ID 2021-06-25 Emergency [facility] [id number] Univers 06:39:02 ity of [facility] 2021-06-25 Emergency [facility] [id number] Univers 01:14:06 ity of [facility] 2021-06-23 Outpatient P [facility] JOHN [id number] Univers 12:39:51 ity of [facility] 2021-06-23 Outpatient P [facility] JOHN [id number] Univers 07:27:22 ity of [facility] 2021-06-23 Outpatient P [facility] JOHN [id number] Univers 07:22:37 ity of [facility] 2021-06-23 Emergency [facility] [id number] Univers 06:14:22 ity of [facility] 2021-06-23 Emergency [facility] [id number] Univers 06:13:02 ity of [facility] 2021-06-23 Emergency [facility] [id number] Univers 00:55:53 ity of [facility] 2021-06-22 Emergency [facility] [id number] Univers 18:30:20 ity [facility] 2022-07-07 2022-07-07 Outpatient R WILMAN [facility] [id number] Univers 11:20:00 11:29:43 LAUREN leija [facility] 2022-07-07 2022-07-07 Urgent Lauren Stovall [facility] [id number] Univers 11:20:00 11:29:43 Care Unknown, [facility] [id number] ity of [place] [id number] [place]bert as ASIM?BLEA [phone] [address] MEDICAL OFFICE [facility] 2022-02-21 2022-02-21 Urgent [facility] [id number] Univers 13:20:00 13:40:00 Care [facility] [id number] i ty of [place] [id number] [place] as ASIM?BLEA [phone] [address] OFFICE [facility] 2022-02-21 2022-02-21 Outpatient R JONO [facility] [id number] Univers 13:20:00 13:20:00 CHARO ity o f [facility] 2021-12-26 2021-12-26 Outpatient R [facility] [id number] Univers 15:40:00 15:56:22 MADHURI heladio [facility] 2021-12-26 2021-12-26 Urgent [facility] [id number] Univers 15:40:00 15:56:22 Care [facility] [id number] it y of [place] [id number] [place] as ASIM?BLEA [phone] [address] MEDICAL OFFICE [facility] 2021-12-26 2021-12-26 Orders Doctor LOUISE [id number] Univers 00:00:00 00:00:00 Only Unassigned, ADRIANO [id number] ity of [place] [facility] [id number] Wilbert as [phone] [address] 2021-04-05 2021-04-05 [facility] [id number] Univers 00:00:00 00:00:00 Management Liv Rai [id number] [id number] [phone] [facility] [address] [facility] 2021-04-04 2021-04-04 Office Jhon [facility] [id number] Univers 14:52:07 15:38:17 Visit Liv Rai [id number] i [id number] [phone] Sc dic[address] 2021-04-04 2021-04-04 Outpatient R JHON [facility] [id number] Univers 14:30:00 14:30:00 LIV leija [facility] 2021-04-04 2021-04-04 Orders Doctor LOUISE [id number] Univers 00:00:00 00:00:00 Only Unassigned, ADRIANO [id number] ity of [facility] [id number] [place] as [phone] [address] 2021-02-13 2021-02-13 Urgent Provider, [facility] [id number] 10:32:50 10:52:50 Care [facility] [id number] Care [place] [id number] Professio [phone] [place] [address] [address] 2021-02-13 2021-02-13 Urgent Provider, [facility] 1.2.840.114 [id number] Univers 10:32:50 10:52:50 Care Anedoug, [facility] [id number] ity of [place] [id number] [place] Professio [phone] [address] Office [facility] 2021-02-13 2021-02-13 Outpatient R SHAWN [facility] [id number] Univers 10:40:00 10:40:00 FRANSISCO leija [facility] 2020-12-26 2020-12-26 Outpatient R OLMAN SHETH [facility] [id number] Univers 09:30:00 09:30:00 ity [facility] 2020-12-10 2020-12-10 Urgent Provider, [facility] [id number] 09:39:01 10:40:28 Care [facility] [id number] Care [place] [id number] Professio [phone] [place] [address] Office [address] [facility] 2020-12-10 2020-12-10 Urgent Provider, [facility] 1.2.840.114 [id number] Univers 09:39:01 10:40:28 Care Green, [facility] [id number] ity of [place] [id number] [place] Professio [phone] [address] Office [facility] One 2020-12-10 2020-12-10 Outpatient R HARMEET [facility] [id number] Univers 09:40:00 09:40:00 LEATHA [facility] 2020-12-09 2020-12-09 Laboratory Lab, [facility] 1.2.840.114 [id number] 15:03:11 15:23:11 Only Fam Pob I Health [id number] [place] [id number] Professio [phone] [place] [address] Office [facility] One 2020-12-09 2020-12-09 Laboratory Lab, [facility] Fam Pob I [facility] 1.2. [id number] [id number] Univers 15:03:11 15:23:11 Only Anene, [facility] [id number] ity of [place] [id number] [place] Professio [phone] Sc dic[address] Office Building [facility] 2020-12-09 2020-12-09 Outpatient R TALHA [facility] [id number] Univers 11:00:00 11:00:00 GADIEL [facility] 2020-12-01 2020-12-01 Telephone Olman Sheth [facility] 1.2.840.114 [id number] Univers 00:00:00 00:00:00 Cam [place] [id number] i ty [id number] [phone] Sc dical nal [address] [place] [address] 2020-12-01 2020-12-01 Telephone Hallie [facility] 1.2.840.114 [id number] Univers 00:00:00 00:00:00 Jose R Rai [id number] ity of [id number] [phone] Sc dic[address] 2020-11-29 2020-11-29 [facility] 1.2.840.114 [id number] [facility] 14:53:58 15:44:52 Visit Jose R Rai [id number] [place] [id number] Professio [phone] [address] 2020-11-29 2020-11-29 [facility] 1.2.840.114 [id number] [facility] 14:53:58 15:44:52 Visit Jose R Rai [id number] [place] of [id number] [phone] Sc dicar nal [address] [place] [address] 2020-11-29 2020-11-29 Outpatient R JOSE R STERLING [facility] [id number] Univers 15:00:00 15:00:00 HALLIE [facility] 2020-11-21 2020-11-21 Office Olman Sheth [facility] [id number] Univers 08:29:06 10:03:28 Visit Leo Rai [id number] i ty of [id number] [phone] Sc dical nal [address] [place] [address] 2020-11-21 2020-11-21 Outpatient R OLMAN SHETH [facility] [id number] Univers 08:30:00 08:30:00 ity of [facility] 2020-11-21 2020-11-21 Letter Olman Sheth [facility] [id number] Univers 00:00:00 00:00:00 (Out) Leo Rai [id number] i [id number] [phone] Sc dical nal [address] [facility] 2020-11-21 2020-11-21 Orders Doctor LOUISE 1.2.840.114 [id number] Univers 00:00:00 00:00:00 Only Unassigned, ADRIANO [id number] ity of [place] [facility] [id number] Wilbert as [phone] [facility] [address] [place] 2020-11-15 2020-11-15 Patient Felice [facility] 1.2.840.114 [id number] Univers 00:00:00 00:00:[address] [facility] [id number] i ty of [facility] [id number] PAVJAMESON [phone] Sc dical [address] [place] 2020-11-09 2020-11-09 Emergency [place] [facility] 1.2.840.114 [id number] Univers 12:59:00 14:50:00 Ami Rai [id number] it[id number] [phone] [facility] [address] [place] 2020-11-09 2020-11-09 Telephone NurseEnio [facility] 1.2.840.114 [id number] Univers 00:00:00 00:00:00 Urgent Care Health [id number] ity of Surgical [id number] [place] Specialti [phone] Sc dical es [address] [facility] 2020-10-24 2020-10-24 Office Olman Sheth [facility] [id number] Univers 08:55:05 10:04:55 Visit Leo Rai [id number] i ty of [id number] [phone] Sc dical nal [address] [facility] 2020-10-24 2020-10-24 Outpatient R OLMAN SHETH [facility] [id number] Univers 09:00:00 09:00:00 ity of [facility] 2020-10-22 2020-10-22 Urgent Provider, [facility] 1.2.840.114 [id number] Univers 12:05:47 13:21:43 Leatha Freire [facility] [id number] ity of [place] [id number] [place] Professio [phone] Sc dical nal [address] [place] Office Building One 2020-10-22 2020-10-22 Outpatient Cr [facility] [id number] Univers 12:00:00 12:00:00 [facility] 2020-10-19 2020-10-19 [facility] [id number] Univers 19:31:00 22:26:00 Garrett Medrano [place] [id number] it[id number] [phone] [address] 2020-10-19 2020-10-19 Telephone Olman Sheth [facility] 1.2.840.114 [id number] Univers 00:00:00 00:00:00 Cam [place] [id number] i ty of [id number] [phone] Sc dical nal [address] [facility] 2020-08-20 2020-08-20 Outpatient Cr GA [facility] [id number] Univers 19:00:00 19:00:00 [facility] 2020-07-27 2020-07-27 Amauri HEAD [facility] Obstetrics [id number] [place] 13:30:00 13:30:00 t; Mefsin TAVERAS and Ph ewelina HEAD, Gynecology Amira Johnson M.D. Clinic 2020-07-11 2020-07-11 Amauri WADDELL [facility] [id number] [place] 15:00:00 15:00:00 t; Mindy VELASCO. jose Boggs M.D. 2020-07-06 2020-07-06 Appointsumaya IKWUAGWU [facility] Obstetrics [id number] [place] 13:00:00 13:00:00 t; Garett FLORES M.D. Gynecology Amira Du M.D. Clinic 2020-07-05 2020-07-05 Appointsumaya WADDELL, [facility] [id number] [place] 09:00:00 09:00:00 t; Mesfin VELASCO ans ASHA, M.D. 2020-07-04 2020-07-04 Appointmen ADULT, [facility] [id number] [place] 15:30:00 15:30:00 t; ADULT, HEMOPHILIA Hemophilia [facility] HEMOPHILIA and ans Thrombophil ia [facility] 2020-07-01 2020-07-01 Urgent Provider, [facility] 1.2.840.114 [id number] Univers 18:18:44 18:38:44 Care Domingo [facility] [id number] ity of [place] [id number] [place] as Professio [phone] [address] One 2020-07-01 2020-07-01 Outpatient R [facility] [id number] Univers 18:20:00 18:20:00 [facility] 2020-06-29 2020-06-29 Appointsumaya [facility] Women's [id number] [place] 14:30:00 14:30:00 t; [facility] Sonya CASTRO M.D. [facility] 2020-06-06 2020-06-06 Urgent Provider, [facility] [id number] Univers 10:43:16 11:42:30 Care Fransisco Escobar [facility] 350.1.13.10 ity of [place] 4.2.7.2.686 Wilbert as Professio [phone] [address] Office [facility] One 2020-06-06 2020-06-06 Outpatient R [facility] [id number] Univers 10:40:00 10:40:00 [facility] 2020-06-01 2020-06-01 AMY Talamantes [facility] [id number] [place] 10:45:00 10:45:00 t; JJ SILVERIO, Vony Mesfin Campos M.D. 2020-05-27 2020-05-27 Hospital Shawn [facility] 1.2.840.114 [id number] Univers 11:49:39 23:59:00 Encounter Fransisco Rai 350.1.13.10 ity of [place] [phone] [facility] [address] [place] [address] 2020-05-27 2020-05-27 Urgent Provider, [facility] 1.2.840.114 [id number] Univers 10:15:33 10:35:33 Care Fransisco Escobar Health 350.1.13.10 ity of [place] 4.2.7.2.686 [place] as Professio [phone] [address] Office [facility] 2020-05-27 2020-05-27 Outpatient R [facility] [id number] Univers 10:20:00 10:20:00 ity of [facility] 2020-05-27 2020-05-27 Telephone Provider, [facility] 1.2.840.114 [id number] Univers 00:00:00 00:00:00 [facility] 350.1.13.10 ity of Care [place] 4.2.7.2.686 [place] as Professio [phone] [address] Office [facility] 2020-05-13 2020-05-13 Telephone Marie, [facility] 1.2.694.415 [id number] Univers 00:00:00 00:00:00 Julissa A Health 350.1.13.10 ity of [place] 4.2.7.2.686 [place] as Professio [phone] Sc dical nal [address] [place] [address] Office [facility] 2020-05-11 2020-05-11 Laboratory Lab, Adc Fam Pob I [facility] 1.2. 840.114 [id number] Univers 16:52:53 17:12:53 Only Fransisco Escobar Health 350.1.13.10 ity of [place] 4.2.7.2.686 [place]bert as Professio [phone] Sc dical nal [address] [place] [address] Office Building One 2020-05-11 2020-05-11 Outpatient R [facility] [id number] Univers 17:00:00 17:00:00 ity of [facility] 2020-04-29 2020-04-29 Appointmen OBGYN, C/S [facility] UTP [id number] [place] 10:00:00 10:00:00 t; OBGYN, Phys ici C/S ans 2020-04-27 2020-04-27 AMY Weller UTP [id number] [place] 13:30:00 13:30:00 t; Mando HERNANDEZ i, M.D. ans Mesfin HERNANDEZ 2020-04-25 2020-04-25 [place] [id number] [place] 10:39:00 10:39:00 0831 [facility] 2020-04-14 2020-04-14 Emergency E PATY, [facility] [address] [facility] 22:58:00 22:58:00 RALPH 2020-04-09 2020-04-09 [facility] 1.2.840.114 [id number] Univers 09:52:00 12:23:00 Encounter Cam [facility]1.13.10 [facility] 4.2.7.2.686 [facility] [phone] [address] 2020-03-31 2020-03-31 AMY Aguilar Obstetrics [id number] [place] 14:30:00 14:30:00 t; Sindhu STEWART i, D.O. Gynecology ans Amira STEWART D.O. Clinic 2020-03-31 2020-03-31 Appointmen [facility] A[facility], UTP UTP [id number] [place] 13:00:00 13:00:00 t; ACTIVITY AID, ROOM3 Phy sici ROOM3 ans 2020-03-27 2020-03-28 Emergency E DAVID, [facility] [address] [facility] 21:39:00 01:16:00 SUNEET 2020-03-24 2020-03-24 Appointmen ACTIVITY AID, UTP [facility] [id number] [place] 15:15:00 15:15:00 t; ACTIVITY AID, ROOM2 Phy sici ROOM2 [facility] 2020-03-24 2020-03-24 Reji Elizabeth [facility] Obstetrics [id number] [place] 13:30:00 13:30:00 t; Mesfin COPELAND and Sonya Mendoza M.D. Gynecology ans [facility] 2020-03-11 2020-03-11 [facility], [facility] 1.2.840.114 [id number] Univers 13:19:00 16:40:00 Encounter Joey Cecelia 350.1.13.10 ity of [place] 4.2.7.2.686 [facility] [phone] [facility] [address] [place] 2020-03-11 2020-03-11 Orders Doctor LOUISE 1.2.840.114 [id number] Univers 00:00:00 00:00:00 Only Unassigned, ADRIANO 350.1.13.10 [facility] 4.2.7.2.686 [place]bert [phone] [facility] [address] [place] 2020-03-09 2020-03-09 Appointmen [facility] [id number] [place] 11:30:00 11:30:00 t; Claude VALE M.D. ans SUDHAKAR, M.D. 2020-03-06 2020-03-[address] [facility] 1.2.840.830 [id number] Univers 19:46:10 22:17:00 Mona Rai 350.1.13.10 i ty of [place] 4.2.7.2.686 [facility] [phone] [address] 2020-03-06 2020-03-06 Emergency Taylor, [facility] 1.2.280.099 [id number] Univers 10:40:51 12:09:00 Mona Rai 350.1.13.10 i ty of [place] 4.2.7.2.686 [facility] [phone] [address] 2020-02-18 2020-02-18 Appointmen STEVENSON, [facility] Obstetrics [id number] [place] 15:00:00 15:00:00 t; Mesfin STONE and Ph ewelina GAMINO, Gynecology ans Amira STONE M.D. [facility] 2020-02-12 2020-02-12 Appointmen ACTIVITY AID, [facility] Obstetrics [id number] [place] 13:00:00 13:00:00 t; ACTIVITY AID, ROOM3 and Phy sici ROOM3 Gynecology ans [facility] 2020-02-07 2020-02-07 Emergency Arnaud [facility] 1.2.013.853 [id number] Univers 21:34:00 22:09:00 Garrett Rai 350.1.13.10 ity of [place] 4.2.7.2.686 [facility] [id number] [facility] [address] 2020-02-07 2020-02-07 Orders Doctor LOUISE 1.2.840.114 [id number] Univers 00:00:00 00:00:00 Only Unassigned, ADRIANO 350.1.13.10 ity of [facility] 4.2.7.2.686 [facility] [phone] [facility] [address] 2020-02-04 2020-02-04 Appointsumaya ECKERT, [facility] [id number] [place] 13:30:00 13:30:00 t; ELIF ECKERT, Mesfin Rodarte M.D. 2020-01-21 2020-01-21 Appointsumaya BAL, [facility] [id number] [place] 16:00:00 16:00:00 t; WALK-INS Physi ci MALLY, [facility] WALK-INS 2020-01-21 2020-01-21 Amauri WILSON, [facility] Obstetrics [id number] [place] 15:30:00 15:30:00 t; FITZ, and Physic haylee WILSON D.O. Gynecology ans Amira BYRNES D.O. Clinic 2020-01-15 2020-01-15 Appointmen ACTIVITY AID, [facility] [id number] [place] 13:00:00 13:00:00 t; ACTIVITY AID, ROOM4 Phy sici ROOM4 [facility] 2020-01-14 2020-01-14 Amauri ESPOSITO [facility] Obstetrics [id number] [place] 13:45:00 13:45:00 t; Mesfin LIN and Ph ewelina ESPOSITO, Gynecology ans Amira LIN M.D. Clinic 2020-01-13 2020-01-13 Appointsumaya TEJADA, [facility] Psychiatry [id number] [place] 08:45:00 08:45:00 t; BURKE, Outpatient P jhonny TEJADA M.D. Clinic - ans CHINA TURK M.D. 2020-01-05 2020-01-05 Outpatient P [facility] [id number] Univers 10:30:00 10:30:00 ity [facility] 2019-12-30 2019-12-30 Outpatient P [facility] [id number] Univers 11:30:00 11:30:00 ity [facility] 2019-12-29 2019-12-29 Case Lucero, [facility] ..472.838 [id number] Univers 00:00:00 00:00:00 Management Elsa Y HEALTH 350.1.13.10 ity of CL[place] [phone] [address] 2019-12-29 2019-12-[address] [facility] ..840.11 [id number] Univers 00:00:00 00:00:00 W Y HEALTH 350.1.13.10 i ty of CL[place]ICS 4[place]2.7.2.[place] [id number] [address] 2019-12-28 2019-12-28 Appointmen ANGELO, [facility] UTP [id number] [place] 13:30:00 13:30:00 t; Claude GREENBERG M.D. ans PATRICIA, M.D. 2019-12-28 2019-12-28 Appointmen [facility]ITY AID, [facility] [id number] [place] 10:45:00 10:45:00 t; ACTIVITY AID, ROOM3 y sici ROOM3 [facility] 2019-12-28 2019-12-28 Appointmen OB/, [facility] UTP [id number] [place] 10:00:00 10:00:00 t; OBClaude SOMMERS [facility] 2019-12-24 2019-12-24 Outpatient R PHAN [facility] [id number] Univers 11:30:00 11:30:00 ANAI it y of S, ZAMBRANO [facility] 2019-12-24 2019-12-[address] [facility] ..840.11 [id number] Univers 00:00:00 00:00:00 W Y HEALTH 350.1.13.10 i ty of CLINICS 4.2.7.2.[place] [id number] [facility] [address] [place] 2019-12-22 2019-12-22 Abstract Linsey, [facility] 1.2.840.114 [id number] Univers 00:00:00 00:00:00 Fernandez Panchal [facility] 350.1.13.10 ity of REGIONAL 4.2.7.2.686 [place] as MATERNAL [phone] Med ical & CHILD 107 [facility] 2019-12-19 2019-12-19 Refill Olman Sheth [facility] 1.2.977.288 [id number] Univers 00:00:00 00:00:00 Leo Rai 350.1.13.10 i ty of [place]2.7.2.[place] Profess[place] [phone] Sc dic[address] 2019-12-18 2019-12-18 Painting And Coating Worker Ultrasound, [facility] 1. .840.114 [id number] Univers 13:54:31 14:54:31 Visit Carina Meehan 350.1.13.10 ity of [place] 4.2.7.2.686 [place] Profess[place] [phone] Sc dic[address] 2019-12-18 2019-12-18 Outpatient P [facility] [id number] Univers 14:00:00 14:00:00 ity of [facility] 2019-12-17 2019-12-17 Refill Olman Sheth [facility] 1.2.920.642 [id number] Univers 00:00:00 00:00:00 Leo [place] 350.1.13.10 i ty of [place] 4.2.7.2.686 [place] Profess[place] [phone] Sc dicar nal [address] [place] [address] 2019-12-14 2019-12-14 [facility] 1.2.164.227 [id number] Univers 18:22:18 21:48:00 Garrett Medrano [place] 350.1.13.10 ity of [place] 4.2.7.2.686 [place] [phone] [facility] [address] [place] 2019-12-09 2019-12-09 Outpatient P EMILIE [facility] [id number] Univers 13:00:00 13:00:00 ANAI it y of S, ZAMBRANO [facility] 2019-12-09 2019-12-09 AMY Jones Psychiatry [id number] [place] 10:30:00 10:30:00 t; BURKE, Outpatient P jhonny TEJADA M.D. Clinic - ans CHINA TURK M.D. 2019-12-08 2019-12-08 Telephone Olman Sheth [facility] 1.2.840.114 [id number] Univers 00:00:00 00:00:00 [facility] 350.1.13.10 i ty [facility] 4.2.7.2.686 [place] [phone] Me dical nal 134 [facility] 2019-12-04 2019-12-04 Outpatient R [facility] [id number] Univers 11:00:00 11:00:00 ity of [facility] 2019-12-04 2019-12-04 Telemedici Fellow, [facility] 1.2.840.114 [id number] Univers 07:16:52 07:46:52 ne Visit Justice Gray [facility] 350.1.13.10 ity of [facility] 4.2.7.2.686 [place] [phone] [facility] [address] [place] 2019-12-04 2019-12-04 [facility] 1..840.114 [id number] Univers 00:00:00 00:00:00 Fernandez Panchal [facility] 350.1.13.10 ity of [facility] 4.2.7.2.686 [place]bert as MATERNAL [phone] Med ical & CHILD 107 [facility] 2019-12-02 2019-12-02 Outpatient P GATITO [facility] [id number] Univers 11:15:00 11:15:00 [facility] 2019-12-02 2019-12-02 Painting And Coating Worker Ultrasound, [facility] 1.2 .840.114 [id number] Univers 10:11:12 10:41:12 Visit Juan Manuel Whitten [facility] 350.1. 13.10 ity of [facility] 4.2.7.2.686 [place] as MATERNAL [phone] Med ical & CHILD 369 [facility] 2019-12-02 2019-12-02 Telemedici Consults, Mfkeila Fernandez Geneti [facility] 1.2.840.114 [id number] Univers 07:48:49 08:03:49 ne Visit Keya Mederos [facility] 350.1.13. 10 ity of [facility] 4.2.7.2.686 [place] as MATERNAL [id number] Med ical & CHILD 109 [facility] 2019-11-30 2019-11-30 Appointmen AMY HURT Obstetrics [id number] [place] 14:00:00 14:00:00 t; Mesfin AC and Ph ysici [place], Gynecology ans Amira AC M.D. [facility] 2019-11-27 2019-11-27 Emergency X SUMAN SUN [facility] ERT [id number] Univers 09:28:09 10:48:00 ity of [facility] 2019-11-27 2019-11-27 Emergency Suman Sun [facility] 1.2.840.114 [id number] Univers 09:28:09 10:48:00 T [place] 350.1.13.10 i ty of [place] [id number] [facility] [address] [place] 2019-11-24 2019-11-24 Telephone Olman Sheth [facility] 1.2.840.114 [id number] Univers 00:00:00 00:00:00 Cam [place] 350.1.13.10 i ty of [place] 4.2.7.2.686 [place] [id number] Sc dicar nal 134 [facility] 2019-11-23 2019-11-23 Telephone Olman Sheth [facility] 1.2.840.114 [id number] Univers 00:00:00 00:00:00 Cam [place] 350.1.13.10 i ty of [place] 4.2.7.2.686 [place] [phone] Me dical nal 134 [facility] 2019-11-19 2019-11-19 Outpatient R LINSEY [facility] [id number] Univers 09:30:00 09:30:00 FERNANDEZ scotty o f [facility] 2019-11-18 2019-11-18 Telephone Olman Sheth [facility] 1.2.840.114 [id number] Univers 00:00:00 00:00:00 Cam Cecelia 350.1.13.10 i ty of [place] 4.2.7.2.686 [place] [phone] [facility] 134 [facility] 2019-11-16 2019-11-16 Painting And Coating Worker Joel, Adc Lab Main [facility] 1.2.8 40.114 [id number] Univers 09:31:47 09:46:47 Visit Olman Sheth Leo Rai 350.1.13.10 ity of [place] 4.2.7.2.686 [place] [phone] [facility] 353 [facility] 2019-11-16 2019-11-16 Initial [facility] 1.2.353.526 [id number] Univers 07:53:29 09:11:59 Leo Rai 350.1.13.10 ity of Visit [place] 4[place]2.7.2.686 [place] [phone] [address] 2019-11-16 2019-11-16 Outpatient R OLMAN SHETH [facility] [id number] Univers 08:00:00 08:00:00 ity of [facility] 2019-11-16 2019-11-16 Orders Doctor LOUISE 1.2.840.114 [id number] Univers 00:00:00 00:00:00 Only Unassigned, ADRIANO 350.1.13.10 ity of [place] [facility] 4.2.7.2.686 Wilbert as [id number] [address] 2019-11-12 2019-11-12 Telephone [facility] 1.2.840.114 [id number] Univers 00:00:00 00:00:00 Fernandez Panchal [facility] 350.1.13.10 ity of [facility] 4.2.7.2.686 [place] as MATERNAL [phone] Med ical & CHILD [address] [place] [address] 2019-10-30 2019-10-30 Telephone [facility] 1.2.840.114 [id number] Univers 00:00:00 00:00:00 Gold Cochran [facility] 350.1.13.10 it y of [facility] 4.2.7.2.686 [place] as MATERNAL [id number] Med ical & CHILD [address] [place] [address] 2019-10-28 2019-10-28 Orders Doctor LOUISE 1.2.840.114 [id number] Univers 00:00:00 00:00:00 Only Unassigned, ADRIANO 350.1.13.10 ity of [place] [facility] 4.2.7.2.686 [place]bert as [id number] [address] 2019-10-22 2019-10-22 Routine [facility] 1.2.307.968 [id number] Univers 12:58:53 13:21:27 Gold Cochran [facility] 350.1.13.10 i ty of Visit [facility] 4.2.7.2.686 [place] as MATERNAL [phone] Med ical & CHILD [address] [place] [address] 2019-10-22 2019-10-22 Outpatient R [facility] 53934 [id number] Univers 13:00:00 13:00:00 GOLD leija [facility] 2019-10-07 2019-10-07 Telephone [facility] 1.2.840.114 [id number] Univers 00:00:00 00:00:00 Gold Cochran [facility] 350.1.13.10 it y of [facility] 4.2.7.2.686 [place] as MATERNAL [phone] [facility] ical & CHILD [address] [place] [address] 2019-10-06 2019-10-06 [facility] 1.2.840.114 [id number] Univers 00:00:00 00:00:00 Fernandez Panchal [facility] 350.1.13.10 ity of [facility] 4.2.7.2.686 [place]bert as MATERNAL [phone] [facility] ical & CHILD [address] [place] [address] 2019-10-01 2019-10-01 Outpatient R DAYANA [facility] [id number] Univers 10:30:00 11:17:13 TOSHIA ity of [facility] 2019-10-01 2019-10-01 Routine Risk, Gys-Sxznv-Pv/High [facility] 1. 2.840.114 [id number] Univers 10:25:41 11:17:13 Toshia Anne [facility] 350.1.13.1 0 ity of Visit REGIONAL 4.2.7.2.686 [place] as MATERNAL [phone] [facility] ical & CHILD [address] [place] [address] 2019-09-25 2019-09-25 Telephone Akinformerly [facility], [facility], [facility] 1.2.840.114 [id number] Univers 00:00:00 00:00:00 Fernandez Panchal [facility] 350.1.13.10 ity of [facility] 4.2.7.2.686 [place] as MATERNAL [id number] [facility] [address] [place] [address] 2019-09-21 2019-09-21 Telephone Risk, [facility] 1.2.442.901 [id number] Univers 00:00:00 00:00:00 Ang-Rmchp-N ACT[facility] AID 350.1.13.10 ity of p/High [facility] 4.2.7.2.686 Wilbert as MATERNAL [id number] [facility] & [address] 2019-09-16 2019-09-16 Emergency [place], [facility] 1.2.142.222 [id number] Univers 06:23:27 09:29:00 Mg [place] 350.1.13.10 i ty of [place] 4.2.7.2.686 [place] [id number] [facility] [address] [place] 2019-09-16 2019-09-16 Orders Doctor LOUISE 1.2.840.114 [id number] Univers 00:00:00 00:00:00 Only Unassigned, ADRIANO 350.1.13.10 ity of [place] [facility] 4.2.7.2.686 Wilbert as [id number] [facility] [address] [place] 2019-09-10 2019-09-10 Painting And Coating Worker Lab, Ang-Rmchp [facility] 1.2.840. 114 [id number] Univers 08:27:30 08:37:34 Visit Akinsipe, Fernandez C [facility] 350.1.13. 10 ity of [facility] 4.2.7.2.686 [place]bert as MATERNAL [id number] [facility] [address] [place] [address] 2019-09-10 2019-09-10 Telephone Linsey [facility] 1.2.840.114 [id number] Univers 00:00:00 00:00:00 Fernandez C [facility] AID 350.1.13.10 ity of REGIONAL 4.2.7.2.686 [place] as MATERNAL [phone] [facility] [address] [place] [address] 2019-09-09 2019-09-09 Emergency [facility] 1.2.292.891 [id number] Univers 14:54:07 16:49:00 Mona Medrano [place] 350.1.13.10 i ty [facility] 4.2.7.2.686 [place] [phone] [facility] [address] [place] 2019-09-09 2019-09-09 Nurse LOUISE Rahman 1.2.840.114 [id number] Univers 00:00:00 00:00:00 Triage Elizabethirina [place] 350.1.13.10 it y of HOSPITAL 4.2.7.2.686 [place] as [phone] [facility] [address] [place] 2019-09-09 2019-09-09 Orders Doctor LOUISE 1.2.840.114 [id number] Univers 00:00:00 00:00:00 Only Unassigned, ADRIANO 350.1.13.10 ity of [place] [facility] 4.2.7.2.686 Wilbert as [phone] [facility] [address] [place] 2019-09-04 2019-09-04 Emergency X TWIN [facility] ERT [id number] Univers 18:41:20 21:40:00 GOPI ity of [facility] 2019-09-03 2019-09-03 Initial [facility] 1.2.022.280 [id number] Univers 13:41:22 15:43:50 Fernandez C [facility] 350.1.13.10 ity of Visit REGIONAL 4.2.7.2.686 Wilbert as MATERNAL [id number] [facility] & CHILD [address] [place] [address] 2015-11-03 2015-11-03 Appointmen NOLVIA, [facility]TP Obstetrics [id number] [place] 09:00:00 09:00:00 t; NOLVIA, FELLOW2 and Physic i FELLOW2 Gynecology ans [facility]uity Clinic Results Test Description Test Time Test Comments Results Result Comments Source POCT TEST 2021-04-04 20:36:00 Test Item Value Reference Range Interpretation Comme nts POCT PREG (test code = 1605) Negative On board controls acceptable with C Line (test code = 3574) Yes POCT PREG LOT # (test code = 3575) POCT PREG TEST DATE (test code = 3576) [id number] 20:36:00 Test Item Value Reference Range Interpretation Comments POCT PREG (test code = 1605) Negative On board controls acceptable with C Yes Line (test code = 3574) POCT PREG LOT # (test code = 3575) POCT PREG TEST DATE (test code = 3576) [facility] URINALYSIS W/O SPECIFIC [id number] 20:10:00 Test Item Value Reference Range Interpretation [...] code = 3257) Negative Negative - Negative [facility]/O SPECIFIC [id number] 20:10:00 Test Item Value Reference Range Interpretation [...] code = 3257) Negative Negative - Negative [facility] GRP A STREP (MOLECULAR)2021-02-13 15:59:00 Test Item Value Reference Range Interpretation Comments POCT GP A STREP (test code = Negative Negative - Negative 32262-0) Lab Interpretation (test code = Normal 57385-4) [facility] FLU A AND B (MOLECULAR)2020-12-10 15:09:00 Test Item Value Reference Range Interpretation Comments POCT INFLUENZA A (test neg Negative - code = 3840) Negative POCT INFLUENZA B (test neg Negative - code = 3841) Negative KISHORE (test code = KISHORE) accurate development and interpretation of all internal controls Lab Interpretation Normal (test code = 48666-2) [facility] GRP A STREP (MOLECULAR)2020-12-10 15:01:00 Test Item Value Reference Range Interpretation Comments POCT GP A STREP (test neg Negative - code = 62282-3) Negative KISHORE (test code = KISHORE) accurate development and interpretation of all internal controls Lab Interpretation Normal (test code = 50305-2) [facility] [id number] 13:56:00 Test Item Value Reference Range Interpretation Comments POCT PREG (test code = 1605) Negative On board controls acceptable with C Yes Line (test code = 3574) POCT PREG LOT # (test code = 3575) POCT PREG TEST DATE (test code = 3576) [facility] [id number] 13:56:00 Test Item Value Reference Range Interpretation Comments POCT PREG (test code = 1605) Negative On board controls acceptable with C Yes Line (test code = 3574) POCT PREG LOT # (test code = 3575) POCT PREG TEST DATE (test code = 3576) [facility] Type and Screen expires at midnight on the 3rd day after it was drawn. A current Type and Screen is required when RBCs are requested. For all other blood products, a Type and Screen performed during the current hospitalization i...2020-11-09 19:24:51 Test Item Value Reference Range Interpretation Comments ABO & RH (test code A Negative Performe d at [facility] = 20) [facility] [address] [place] [id number] Free: [phone] A No. [id number] IAT (test code = Negative Performed a t [facility] 1185) [facility] [address] [place] [id number] Free: [phone] A No. [id number] [facility] 19:10:41 Test Item Value Reference Range Interpretation Comments APPEARANCE (test code = Cloudy Clear A [id number]) COLOR (test code = Red Yellow A [id number]) PH (test code = 4.8-8.0 3921104363) SP GRAVITY (test code = >=1.030 1.003-1.030 [id number]) GLU U QUAL (test code = Negative Negative [id number]) BLOOD (test code = Large Negative A [id number]) KETONES (test code = Negative Negative [id number]) PROTEIN (test code = 100 mg/dL Negative A 2887-8) UROBILIN (test code = 0.2 mg/dL See_Comment [Auto mated message] 1379886433) The system [employer] generated this result transmit tessie reference range : 0-1.0 mg/dL. Th e reference range was not used to interpret this result as normal/abnormal . BILIRUBIN (test code = Small Negative A 4666788625) NITRITE (test code = Positive Negative A 6726838335) LEUK SELENA (test code = Negative Negative 2021525154) RBC/HPF (test code = See_Comment H [Autom ated message] 4878035547) The system [employer] generated this result transmit tessie reference range : 0 - 3 HPF. The refe rence range was not u sed to interpret th is result as normal/abnormal . WBC/HPF (test code = See_Comment [Autom ated message] 3722065747) The system [employer] generated this result transmit tessie reference range : 0 - 5 HPF. The refe rence range was not u sed to interpret th is result as normal/abnormal . BACTERIA (test code = Moderate Negative A 4618979314) MUCOUS (test code = Slight Negative LPF A 0984852049) SQ EPITH (test code = HPF 0726570819) Ictotest (test code = Positive 8844093880) Lab Interpretation (test Abnormal code = 98257-5) [facility] Metabolic Panel (NA, K, CL, CO2, GLUCOSE, BUN, CREATININE, CA)2020-11-09 18:57:46 Test Item Value Reference Range Interpretation Comments NA (test code = 138 mmol/L 135-145 3071681749) K (test code = 3.5 mmol/L 3.5-5.0 2433552610) CL (test code = 105 mmol/L 98-108 8349484365) CO2 TOTAL (test code = 26 mmol/L 23-31 2589822212) AGAP (test code = 2-16 8957485111) BUN (test code = 15 mg/dL 7-23 6386996954) GLUCOSE (test code = 104 mg/dL 70-110 5211217107) CREATININE (test code 0.67 mg/dL 0.50-1.04 = 5471032745) CALCIUM (test code = 9.0 mg/dL 8.6-10.6 8966895109) eGFR Calculation mL/min/1.73m2 (Non-) (test code = 9976533482) eGFR Calculation mL/min/1.73m2 () (test code = 8393649238) KISHORE (test code = KISHORE) Association of [...] or urine or abnormalities in imaging tests). [facility] with [id number] 18:40:21 Test Item Value Reference Range Interpretation Comments WBC (test code = See_Comment [Automated message] 2590-2) The system [employer] generated this result transmitted ref erence range: 4.30 - 1 1.10 10*3/?L. The re ference range was not u sed to interpret this result as normal/abnor mal. RBC (test code = See_Comment [Automated message] 539-8) The system [employer] generated this result transmitted ref erence range: [...] RDW-SD (test code 40.1 fL 39.0-49.9 = 20624-2) RDW-CV (test code 13.2 % 12.0-15.5 = 788-0) PLT (test code = See_Comment [Automated message] 777-3) The system [employer] generated this result transmitted ref erence range: 166 - 35 8 10*3/?L. The re ference range was not u sed to interpret this result as normal/abnor mal. MPV (test code = 11.2 fL 9.5-12.9 04172-7) NRBC/100 WBC (test See_Comment [Automat ed message] code = 2268878555) The syste m which generated this result transmitted ref erence range: 0.0 - 10 .0 /100 WBCs. The refer ence range was not u sed to interpret this result as normal/abnor mal. NRBC x10^3 (test <0.01 See_Comment [Automated message] code = 3143841951) The syste m which generated this result transmitted ref erence range: 10*3/?L. The reference range was not used to interpr et this result as normal/abnormal . GRAN MAT (NEUT) % 61.6 % (test code = 770-8) IMM GRAN % (test 0.20 % code = 3603554118) LYMPH % (test code 27.3 % = 736-9) MONO % (test code 8.0 % = 5905-5) EOS % (test code = 2.5 % 713-8) BASO % (test code 0.4 % = 706-2) GRAN MAT 5.67 10*3/uL 1.88-7.09 x10^3(ANC) (test code = 0766502631) IMM GRAN x10^3 <0.03 0.00-0.06 (test code = 6165335166) LYMPH x10^3 (test 2.52 10*3/uL 1.32-3.29 code = 731-0) MONO x10^3 (test 0.74 10*3/uL 0.33-0.92 code = 742-7) EOS x10^3 (test 0.23 10*3/uL 0.03-0.39 code = 711-2) BASO x10^3 (test 0.04 10*3/uL 0.01-0.07 code = 704-7) [facility] [id number] 18:19:00 Test Item Value Reference Range Interpretation Comments POCT PREG (test code = 1605) negative On board controls acceptable with C present Line (test code = 3574) Lab Interpretation (test code = Normal 35954-1) [facility] URINALYSIS W/O SPECIFIC [id number] 15:17:00 Test Item Value Reference Range Interpretation [...] code = 3257) Negative Negative - Negative [facility]O SPECIFIC [id number] 15:17:00 Test Item Value Reference Range Interpretation [...] code = 3257) Negative Negative - Negative [facility]OL[facility] (43418)2020-10-20 03:05:00 Test Item Value Reference Range Interpretation Comments NA (test code = 139 mmol/L 135-145 7196158434) K (test code = 4.0 mmol/L 3.5-5 2687632726) CL (test code = 104 mmol/L 98-108 3862671314) CO2 TOTAL (test code = 29 mmol/L 23-31 9127461933) AGAP (test code = 2-16 1203390530) BUN (test code = 18 mg/dL 7-23 0133671695) GLUCOSE (test code = 101 mg/dL 70-110 4818067978) CREATININE (test code 0.59 mg/dL 0.5-1.04 = 6216468633) TOTAL BILI (test code 0.2 mg/dL 0.1-1.1 = 5061660584) CALCIUM (test code = 8.9 mg/dL 8.6-10.6 9284521805) T PROTEIN (test code = 7.0 g/dL 6.3-8.2 2629170529) ALBUMIN (test code = 4.2 g/dL 3.5-5 7534762995) ALK PHOS (test code = 57 U/L 34-122 7932828692) ALTv (test code = 26 U/L 5-35 1742-6) AST(SGOT) (test code = 24 U/L 13-40 5698951723) eGFR Calculation mL/min/1.73m2 (Non-) (test code = 8221445307) eGFR Calculation mL/min/1.73m2 () (test code = 1492727607) KISHORE (test code = KISHORE) Association of [...] or urine or abnormalities in imaging tests). [facility] 03:04[facility]00 Test Item Value Reference Range Interpretation Comments LIPASE (test code = 0710061307) 65 U/L 0-220 Lab Interpretation (test code = Normal 86920-5) [facility] Center[facility] / [id number] 02:56:00 Test Item Value Reference Range Interpretation Comments PROTIME PATIENT (test See_Comment [Auto mated message] code = 5964-2) The system [employer] generated this result transmitted ref erence range: 12.0 - 1 4.7 Seconds. The re ference range was not u sed to interpret this result as normal/abnor mal. INR (test code = 6301-6) Nor mal INR <1.1; Warfarin Therap eutic range 2.0 to 3. 0 or 2.5 to 3.5, dep ending upon the indica tions. Lab Interpretation (test Normal code = 32149-0) [facility]21-[facility] 02:53:00 Test Item Value Reference Range Interpretation Comments APPEARANCE (test code = Hazy Clear A 3603406006) COLOR (test code = Yellow Yellow 5293095880) PH (test code = 4.8-8.0 5796813843) SP GRAVITY (test code = 1.003-1.030 7655490193) GLU U QUAL (test code = Normal Normal 2045232384) BLOOD (test code = 3+ Negative A 6020950796) KETONES (test code = Negative Negative 5542751802) PROTEIN (test code = 30 mg/dL Negative A 2887-8) UROBILIN (test code = Normal Normal 2949518452) BILIRUBIN (test code = Negative Negative 0755387027) NITRITE (test code = Negative Negative 9769420235) LEUK SELENA (test code = 75/uL Negative A 2998405171) RBC/HPF (test code = See_Comment H [Autom ated message] 6665552696) The system [employer] generated this result transmitted ref erence range: 0 - 3 HP F. The reference range was not used to int erpret this result as normal/abnormal . WBC/HPF (test code = See_Comment H [Autom ated message] 2061550480) The system [employer] generated this result transmitted ref erence range: 0 - 5 HP F. The reference range was not used to int erpret this result as normal/abnormal . BACTERIA (test code = Few Negative A 7457429092) MUCOUS (test code = Slight Negative LPF A 3354038812) SQ EPITH (test code = HPF 7585411619) Lab Interpretation (test Abnormal code = 85529-4) [facility] WITH [id number] 02:50:00 Test Item Value Reference Range Interpretation Comments WBC (test code = See_Comment [Automated message] 6690-2) The system [employer] generated this result transmitted ref erence range: 4.30 - 1 1.10 10*3/?L. The re ference range was not u sed to interpret this result as normal/abnor mal. RBC (test code = See_Comment [Automated message] 789-8) The system [employer] generated this result transmitted ref erence range: [...] RDW-SD (test code 41.7 fL 39-49.9 = 05139-5) RDW-CV (test code 13.2 % 12-15.5 = 788-0) PLT (test code = See_Comment [Automated message] 777-3) The system [employer] generated this result transmitted ref erence range: 166 - 35 8 10*3/?L. The re ference range was not u sed to interpret this result as normal/abnor mal. MPV (test code = 11.4 fL 9.5-12.9 26656-6) NRBC/100 WBC (test See_Comment [Automat ed message] code = 5980382121) The syste [employer] which generated this result transmitted ref erence range: 0.0 - 10 .0 /100 WBCs. The refer ence range was not u sed to interpret this result as normal/abnor mal. NRBC x10^3 (test <0.01 See_Comment [Automated message] code = 0652153665) The syste m which generated this result transmitted ref erence range: 10*3/?L. The reference range was not used to interpr et this result as normal/abnormal . GRAN MAT (NEUT) % 57.1 % (test code = 770-8) IMM GRAN % (test 0.40 % code = 0514979470) LYMPH % (test code 32.8 % = 736-9) MONO % (test code 6.6 % = 5905-5) EOS % (test code = 2.6 % 713-8) BASO % (test code 0.5 % = 706-2) GRAN MAT 4.66 10*3/uL 1.88-7.09 x10^3(ANC) (test code = 6281979887) IMM GRAN x10^3 0.03 10*3/uL 0-0.06 (test code = 2263187117) LYMPH x10^3 (test 2.68 10*3/uL 1.32-3.29 code = 731-0) MONO x10^3 (test 0.54 10*3/uL 0.33-0.92 code = 742-7) EOS x10^3 (test 0.21 10*3/uL 0.03-0.39 code = 711-2) BASO x10^3 (test 0.04 10*3/uL 0.01-0.07 code = 704-7) [facility] [id number] 01:42:00 Test Item Value Reference Range Interpretation Comments POCT PREG (test code = 1605) negative On board controls acceptable with present C Line (test code = 3574) POCT PREG LOT # (test code = 3575) [id number] POCT PREG TEST DATE (test 05/25/2022 code = 3576) Lab Interpretation (test code = Normal 24497-9) [facility]. [facility] - PAP w/reflex HPV if ASC-US or above 2020-06-29 00:00:00 Test Item Value Reference Range Interpretation Comments Case (test code = Click ImageLink button A Case) for report. [facility])2020-06-06 16:26:00 Test Item Value Reference Range Interpretation Comments POCT GP A STREP (test neg Negative - code = 38705-4) Negative KISHORE (test code = KISHORE) accurate development and interpretation of all internal controls Lab Interpretation Normal (test code = 45456-0) [facility] B ([facility]LECULAR)2020-06-06 16:18:00 Test Item Value Reference Range Interpretation Comments POCT INFLUENZA A (test neg Negative - code = 3840) Negative POCT INFLUENZA B (test neg Negative - code = 3841) Negative KISHORE (test code = KISHORE) accurate development and interpretation of all internal controls Lab Interpretation Normal (test code = 62555-6) [facility] CenterXR W[facility]ST 3+ VW [id number] 18:03:03 Unremarkable left wrist series RL 5939 CLINICAL INDICATIONS: ?Pain COMPARISON STUDY: None ORDERING PHYSICIAN: FRANSISCO ESCOBAR TECHNIQUE: 3 views left wrist FINDINGS: The osseous structures are unremarkable. There is no evidence of fracture.Alignment is normal. The joint spaces are preserved. The soft tissues areunremarkable. [facility], Radiant Results Inft User - 05/27/2020 1:04 PM CDTCLINICAL INDICATIONS: PainCOMPARISON STUDY: NoneORDERING PHYSICIAN: FRANSISCO DENGIQUE: 3 views left wristFINDINGS:The osseous structures are unremarkable. There is no evidence of fracture.Alignment is normal. The joint spaces are preserved. The soft tissues areunremarkable.IMPRESSIONUnremarkable left wrist seriesRL 5939Electronically signed by Faisal Moon 05/27/2020 1:03 PMUnQuail [facility] HospitalXR SHOULDER 2+ VW [id number] 18:02:12 Unremarkable right shoulder series RL 5939 CLINICAL INDICATIONS: ?Pain COMPARISON STUDY: None ORDERING PHYSICIAN: FRANSISCO ESCOBAR TECHNIQUE: 2views right shoulder FINDINGS: The osseous structures are unremarkable. There is no evidence of fracture.Alignment is normal. The joint spaces are preserved. The soft tissues areunremarkable. [facility], Radiant Results Inft User - 05/27/2020 1:03 PM CDTCLINICAL INDICATIONS: PainCOMPARISON STUDY: NoneORDERING PHYSICIAN: FRANSISCO DENGIQUE: 2 views right shoulderFINDINGS:The osseous structures are unremarkable. There is no evidence of fracture.Alignment is normal. The joint spaces are preserved. The soft tissues areunremarkable.IMPRESSIONUnremarkable right shoulder seriesRL 5939 [facility] HospitalXR ANKLE 3+ VW [id number] 18:01:40 Unremarkable right ankle series RL 5939 CLINICAL INDICATIONS: ?Pain COMPARISON STUDY: None ORDERING PHYSICIAN: FRANSISCO ESCOBAR TECHNIQUE: 3 views right ankle FINDINGS: The osseous structures are unremarkable. There is no evidence of fracture.Alignment is normal. The joint spaces are preserved. The soft tissues areunremarkable. [facility], Radiant Results Inft User - 05/27/2020 1:02 PM CDTCLINICAL INDICATIONS: PainCOMPARISON STUDY: NoneORDERING PHYSICIAN: FRANSISCO DENGIQUE: 3 views right ankleFINDINGS:The osseous structures are unremarkable. There is no evidence of fracture.Alignment is normal. The joint spaces are preserved. The soft tissues areunremarkable.IMPRESSIONUnremarkable right ankle seriesRL 5939 [facility] COVID-19 (ID NOW RAPID TESTING)2020-04-09 16:50:00 Test Item Value Reference Range Interpretation Comments SARS-CoV-2 Rapid ID NOW Not Detected Not Detected (test code = 40672-5) KISHORE (test code = KISHORE) ID NOW COVID-19 Assay is an isothermal nucleic acid amplification test intended for the qualitative detection of nucleic acid from SARS-CoV-2 viral RNA in nasopharyngeal (IT SECURITY ENGINEER) specimens. It is used under Emergency Use [...] indicated. Lab Interpretation Normal (test code = 99896-5) [facility] OR [facility] ONLY - WET [id number] 16:47:00 Test Item Value Reference Range Interpretation Comments Wet Prep (test code = Moderate WBC per 6624405024) high-power field [facility]2020-08-15 16:44:00 Test Item Value Reference Range Interpretation Comments APPEARANCE (test code = Hazy Clear A 6756199842) COLOR (test code = Yellow Yellow 4153324852) PH (test code = 4.8-8.0 2610726546) SP GRAVITY (test code = 1.003-1.030 5598542708) GLU U QUAL (test code = 150 mg/dL Normal A 5123645405) BLOOD (test code = Negative Negative INTERFERE NCE FROM 6498921521) ASCORBIC ACID M AY CAUSE FALSE NEG ATIVE RESULT KETONES (test code = 5 mg/dL Negative A 2272870062) PROTEIN (test code = Negative Negative 2887-8) UROBILIN (test code = Normal Normal 4571657571) BILIRUBIN (test code = Negative Negative 9241716089) NITRITE (test code = Negative Negative 0134814966) LEUK SELENA (test code = 25/uL Negative A 7047857481) RBC/HPF (test code = See_Comment [Autom ated message] 6579095455) The system [employer] generated this result transmitted ref erence range: 0 - 3 HP F. The reference range was not used to int erpret this result as normal/abnormal . WBC/HPF (test code = See_Comment [Autom ated message] 3604022547) The system [employer] generated this result transmitted ref erence range: 0 - 5 HP F. The reference range was not used to int erpret this result as normal/abnormal . BACTERIA (test code = Negative Negative 1335390879) MUCOUS (test code = Slight Negative LPF A 1722176976) SQ EPITH (test code = HPF 7061053789) Lab Interpretation Abnormal (test code = 07157-5) [facility] ONLY - FERN [id number] 16:30:00 Test Item Value Reference Range Interpretation Comments Fern Test (test code = 1150206189) Negative [facility][QL] CMP [id number] 00:00:00 Test Item Value Reference Range Interpretation Comments GLUCOSE; Normal 68 mg/dl 65-99 N Fasting refe rence (test code = 1547-9) interva l UREA NITROGEN (BUN) 10 mg/dl 7-25 N (test code = UREA NITROGEN (BUN)) CREATININE (test 0.46 mg/dl 0.50-1.10 code = CREATININE) eGFR NON-AFR. 134 > OR = 60 N ZIMBABWEAN (test code {ML/MIN/1.7} = eGFR NON-AFR. ZIMBABWEAN) eGFR 156 > OR = 60 N ZIMBABWEAN (test code {ML/MIN/1.7} = eGFR ) BUN/CREATININE [...] mg/dl 0.2-1.2 N Normal (test code = 80552-7) ALKALINE PHOSPHATASE 120 u/l 31-125 N (test code = ALKALINE PHOSPHATASE) AST; Normal (test 14 u/l 10-30 N code = 1916-6) ALT; Normal (test 16 u/l 6-29 N SPECIMEN R ECEIVED code = 1742-6) DATE AND TIME : [id number] [facility][Q] BILE ACIDS, FRACTIONATED AND TOTAL, [id number] 00:00:00 Test Item Value Reference Interpretation Comments [...] performancechar acteristics have been deter mined by [facility]. It has not beencleared or approved by FDA. This as say has been validatedpursua nt to the CLIA regulations and is used for clinicalpurpose s.SPECIMEN RECEIVED DATE A ND TIME: [id number] [facility][QL] CULTURE, URINE, [id number] 00:00:00 Test Item Value Reference Range Interpretation Comments SOURCE: (test URINE, CLEAN CATCH code = SOURCE:) STATUS: (test FINAL code = STATUS:) Result (test Multiple organisms CFU/mL. T hese code = Result) present, each less organis ms, commonly than 10,000 found onexterna l and internal genita romana, are consideredt o be colonizers. No further testing performed.SPECI MEN RECEIVED DATE A ND TIME: 45 [facility]US PELVIS > 14 [id number] 21:23:34Impression: Single live intrauterine fetus, with adequate interval growth. No acuteabnormalities evident. RL: 460 End of Report Ordering Physician: ?JOEY MENDOZA History: ?Possible premature rupture of membranes at 32 weeks. Evaluateamniotic fluid index and estimated weight. Technique: US PELVIS > 14 WEEKS Comparison: November 27, 2019. An earlier study of September 16, 2019 is notcurrently available for review. Findings: ? There is a single intrauterine fetus in cephalic presentation. Fetalcardiac activity is documented, with a heart rate of 126 bpm. Fetalbiometrics indicate an estimated gestational age of 33 weeks2 days,indicating adequate interval growth from the November study. Estimated fetalweight by ultrasoundis 2094 +/- 306 g. Anatomic evaluation is limited bygestational age. No anatomic abnormalities are apparent on this study. Theanterior placenta is unremarkable in appearance. Amniotic fluid volume isnor mal for gestational age, with an amniotic fluid index of 17.66 cm. Thedeepest vertical pocket is 5.5cm. Cervical length is normal at 4.4 cm. [facility], Radiant Results Inft User - 03/11/2020 4:24 PM CDTOrdering Physician: JOEY ALEJANDROEHistory: Possible premature rupture of membranes at 32 weeks. Evalu ateamniotic fluid index and estimated weight.Technique: US PELVIS > 14 WEEKSComparison: November 27, 2019. An earlier study of September 16, 2019 is notcurrently available for review.Findings: There is a single intrauterine fetus in cephalic presentation. Fetalcardiac activity is documente d, with a heart rate of 126 bpm. Fetalbiometrics indicate an estimated gestational age of 33 weeks 2days,indicating adequate interval growth from the November study. [...] growth. No acuteabnormalities evident.RL: 460End of Report [facility]AD [facility] - FERN [id number] 19:53:00 Test Item Value Reference Range Interpretation Comments Fern Test (test code = 5872503271) Negative [facility] (ID NOW RAPID TESTING)2020-03-07 01:44:00 Test Item Value Reference Range Interpretation Comments SARS-CoV-2 Rapid ID NOW Positive Not Detected A (test code = 18548-6) KISHORE (test code = KISHORE) ID NOW COVID-19 Assay is an isothermal nucleic acid amplification test intended for the qualitative detection of nucleic acid from SARS-CoV-2 viral RNA in nasopharyngeal (IT SECURITY ENGINEER) specimens. It is used under Emergency Use [...] indicated. Lab Interpretation Abnormal (test code = 14255-9) [facility] METABOLIC PANEL (NA, K, CL, CO2, GLUCOSE, BUN, CREATININE, CA)2020-03-07 01:43:00 Test Item Value Reference Range Interpretation Comments NA (test code = 133 mmol/L 135-145 L 5892315379) K (test code = 3.8 mmol/L 3.5-5 0560930319) CL (test code = 106 mmol/L 98-108 2099770164) CO2 TOTAL (test code = 22 mmol/L 23-31 L 0684124901) AGAP (test code = 2-16 5109650947) BUN (test code = 8 mg/dL 7-23 7971534672) GLUCOSE (test code = 98 mg/dL 70-110 3717789125) CREATININE (test code = 0.38 mg/dL 0.5-1.04 L 5759708661) CALCIUM (test code = 8.8 mg/dL 8.6-10.6 7065581350) eGFR Calculation mL/min/1.73m2 (Non-) (test code = 9087771965) eGFR Calculation mL/min/1.73m2 () (test code = 8883937281) KISHORE (test code = KISHORE) Association of [...] tests). Lab Interpretation Abnormal (test code = 85850-2) [facility] WITH [id number] 01:27:00 Test Item Value Reference Range Interpretation Comments WBC (test code = See_Comment H [Automated 1657-2) message] The system which generated this result transmit tessie reference range : 4.30 - 11.10 10*3/?L. The reference range was not used to interpret this result as normal/abnormal . RBC (test code = See_Comment [Automated 859-8) message] The system which generated this result [...] RDW-SD (test code = 40.8 fL 39-49.9 32391-4) RDW-CV (test code = 13.7 % 12-15.5 788-0) PLT (test code = See_Comment [Automated 777-3) message] The system which generated this result transmit tessie reference range : 166 - 358 10*3/ ?L. The reference range was not u sed to interpret th is result as normal/abnormal . MPV (test code = 11.6 fL 9.5-12.9 31564-1) NRBC/100 WBC (test See_Comment [Automat ed code = 8016240798) message] The system which generated this result transmit tessie reference range : 0.0 - 10.0 /100 WBCs. The reference range was not used to interpret this result as normal/abnormal . NRBC x10^3 (test code <0.01 See_Comment [Auto mated = 0995080721) message] The system which generated this result transmit tessie reference range : 10*3/?L. The reference range was not used to interpret this result as normal/abnormal . GRAN MAT (NEUT) % 80.6 % (test code = 770-8) IMM GRAN % (test code 1.00 % = 4014275496) LYMPH % (test code = 11.4 % 736-9) MONO % (test code = 5.8 % 5905-5) EOS % (test code = 0.9 % 713-8) BASO % (test code = 0.3 % 706-2) GRAN MAT x10^3(ANC) 12.28 10*3/uL 1.88-7.09 H (test code = 8336819884) IMM GRAN x10^3 (test 0.15 10*3/uL 0-0.06 H code = 2755107040) LYMPH x10^3 (test code 1.73 10*3/uL 1.32-3.29 = 731-0) MONO x10^3 (test code 0.89 10*3/uL 0.33-0.92 = 742-7) EOS x10^3 (test code = 0.14 10*3/uL 0.03-0.39 711-2) BASO x10^3 (test code 0.04 10*3/uL 0.01-0.07 = 704-7) Lab Interpretation Abnormal (test code = 29956-8) [facility][Q] GLUCOSE, GESTATIONAL SCREEN (50G)-130 [id number] 16:06:00 Test Item Value Reference Range Interpretation Comments GLUCOSE, GESTATIONAL 121 mg/dl <135 N SPECIME N RECEIVED DATE SCREEN (50G)-130 AND TIME: 2 59084272318 CUTOFF; Normal (test code = 74726-4) [facility][QL] CBC (INCLUDES DIFF/PLT)2020-02-18 16:06:00 Test Item Value Reference Range Interpretation Comments WHITE BLOOD CELL 13.6 3.8-10.8 COUNT (test code = {Thousand/u} WHITE BLOOD CELL COUNT) RED BLOOD CELL COUNT 3.80 3.80-5.10 N (test code = RED {Million/uL} BLOOD CELL COUNT) HEMOGLOBIN; Below 10.8 g/dl 11.7-15.5 Low Threshold (test code = 69282-3) HEMATOCRIT; Below 32.5 % 35.0-45.0 Low Threshold (test code = 4544-3) MCV; Normal (test 85.5 fL 80.0-100.0 N code = 787-2) MCHC; Normal (test 33.2 g/dl 32.0-36.0 N code = 49253-3) RDW; Normal (test 13.1 % 11.0-15.0 N code = 788-0) PLATELET COUNT; 262 140-400 N Normal (test code = {Thousand/u} 777-3) MPV; Normal (test 11.8 fL 7.5-12.5 N code = 27085-9) ABSOLUTE NEUTROPHILS 81997 7282-4079 (test code = {cells/uL} ABSOLUTE NEUTROPHILS) ABSOLUTE LYMPHOCYTES 5689 286-9615 N (test code = {cells/uL} ABSOLUTE LYMPHOCYTES) [...] Normal 6.2 % N (test code = 49219-5) EOSINOPHILS; Normal 0.9 % N (test code = 26038-4) BASOPHILS; Normal 0.3 % N SPECIMEN R ECEIVED (test code = DATE AND TIME: 62361-8) [id number] [facility][QL] URINALYSIS, [id number] 00:00:00 Test Item Value Reference Range Interpretation [...] Normal NEGATIVE NEGATIVE N (test code = 58211-4) KETONES; Normal (test NEGATIVE NEGATIVE N code = 35721-0) OCCULT BLOOD; Normal NEGATIVE NEGATIVE N (test code = 38252-5) PROTEIN; Normal (test NEGATIVE NEGATIVE N code = 48956-4) NITRITE; Normal (test NEGATIVE NEGATIVE N code = 08160-3) LEUKOCYTE ESTERASE 1+ NEGATIVE A (test code = LEUKOCYTE ESTERASE) WBC; Abnormal (test 10-20 < OR = 5 A code = 6690-2) RBC; Normal (test 0-2 < OR = 2 N code = 789-8) SQUAMOUS EPITHELIAL > OR = 60 < OR = 5 A CELLS; Abnormal (test code = 10902-9) BACTERIA; Abnormal FEW NONE SEEN A (test code = 630-4) CALCIUM OXALATE FEW NONE OR FEW N CRYSTALS; Normal (test code = 92224-3) HYALINE CAST; Normal NONE SEEN NONE SEEN N SPECIME N RECEIVED DATE (test code = 52263-0) AND TI ME: [id number] [facility][QL] CULTURE, URINE, [id number] 00:00:00 Test Item Value Reference Range Interpretation [...] desired.SPECIME N RECEIVED DATE A ND TIME: [facility]. [facility] - Affirm VPIII (BV Panel)2020-01-15 00:00:00 Test Item Value Reference Range Interpretation Comments Case (test code = Click ImageLink button N Case) for report. [place] [id number] 01:37:00 Test Item Value Reference Range Interpretation Comments APPEARANCE (test code = Hazy Clear A 8317387836) COLOR (test code = Yellow Yellow 4438017938) PH (test code = 4.8-8.0 0302458306) SP GRAVITY (test code = 1.003-1.030 5897827421) GLU U QUAL (test code = Normal Normal 9260113002) BLOOD (test code = Negative Negative 9905389726) KETONES (test code = Negative Negative 2060057000) PROTEIN (test code = Negative Negative 2887-8) UROBILIN (test code = Normal Normal 2372354126) BILIRUBIN (test code = Negative Negative 5112461704) NITRITE (test code = Negative Negative 9417061230) LEUK SELENA (test code = Negative Negative 5969657233) RBC/HPF (test code = See_Comment [Autom ated message] 1280208122) The system [employer] generated this result transmitted ref erence range: 0 - 3 HP F. The reference range was not used to int erpret this result as normal/abnormal . WBC/HPF (test code = See_Comment [Autom ated message] 7784720519) The system [employer] generated this result transmitted ref erence range: 0 - 5 HP F. The reference range was not used to int erpret this result as normal/abnormal . BACTERIA (test code = Few Negative A 4959104781) MUCOUS (test code = Slight Negative LPF A 4942109131) SQ EPITH (test code = HPF 1641135965) Lab Interpretation (test Abnormal code = 52568-7) [facility]-19 [id number] 00:49:00 Test Item Value Reference Range Interpretation Comments SARS-CoV-2 (test code = Not Detected Not Detected 05479-8) KISHORE (test code = KISHORE) ID NOW COVID-19 Assay is an isothermal nucleic acid amplification test intended for the qualitative detection of nucleic acid from SARS-CoV-2 viral RNA in nasopharyngeal (IT SECURITY ENGINEER) specimens. It is used under Emergency Use [...] indicated. Lab Interpretation Normal (test code = 39134-1) [facility]TR[facility]ENTERJOHNIE [id number] 00:26:00 Test Item Value Reference Range Interpretation Comments TROPONIN I (test <0.012 See_Comment [Automated code = 4886675445) message] The system which generated this result [...] ? Lab Interpretation Normal (test code = 25921-5) [facility]2020-[facility] 00:24:00 Test Item Value Reference Range Interpretation Comments APTT Patient (test See_Comment [Automat ed code = 3173-2) message] The system which generated this result transmitted reference range : 23 - 38 Seconds . The reference range was not used to interpr et this result as normal/abnormal . KISHORE (test code = KISHORE) The [facility] patient population mean normal value for aPTT is 30 seconds. Lab Interpretation Normal (test code = 72235-1) [facility] CenterPROTHROMBIN TIME / [id number] 00:24:00 Test Item Value Reference Range Interpretation [...] tions. Lab Interpretation (test Normal code = 52488-1) [facility] CenterCB WITH [id number] 00:19:00 Test Item Value Reference Range Interpretation Comments WBC (test code = See_Comment H [Automated 3090-2) message] The system which generated this result transmit tessie reference range : 4.30 - 11.10 10*3/?L. The reference range was not used to interpret this result as normal/abnormal . RBC (test code = See_Comment [Automated 529-8) message] The system which generated this result [...] RDW-SD (test code = 42.7 fL 39-49.9 95812-9) RDW-CV (test code = 13.2 % 12-15.5 788-0) PLT (test code = See_Comment [Automated 777-3) message] The system which generated this result transmit tessie reference range : 166 - 358 10*3/ ?L. The reference range was not u sed to interpret th is result as normal/abnormal . MPV (test code = 11.2 fL 9.5-12.9 32353-2) NRBC/100 WBC (test See_Comment [Automat ed code = 6522989804) message] The system which generated this result transmit tessie reference range : 0.0 - 10.0 /100 WBCs. The reference range was not used to interpret this result as normal/abnormal . NRBC x10^3 (test code <0.01 See_Comment [Auto mated = 0273479289) message] The system which generated this result transmit tessie reference range : 10*3/?L. The reference range was not used to interpret this result as normal/abnormal . GRAN MAT (NEUT) % 76.5 % (test code = 770-8) IMM GRAN % (test code 0.90 % = 8625121526) LYMPH % (test code = 14.3 % 736-9) MONO % (test code = 6.3 % 5905-5) EOS % (test code = 1.7 % 713-8) BASO % (test code = 0.3 % 706-2) GRAN MAT x10^3(ANC) 12.18 10*3/uL 1.88-7.09 H (test code = 1601649629) IMM GRAN x10^3 (test 0.14 10*3/uL 0-0.06 H code = 6475443469) LYMPH x10^3 (test code 2.28 10*3/uL 1.32-3.29 = 731-0) MONO x10^3 (test code 1.01 10*3/uL 0.33-0.92 H = 742-7) EOS x10^3 (test code = 0.27 10*3/uL 0.03-0.39 711-2) BASO x10^3 (test code 0.04 10*3/uL 0.01-0.07 = 704-7) Lab Interpretation Abnormal (test code = 66856-0) [facility]. METABOLIC PANEL (33331)2019-12-15 00:14:00 Test Item Value Reference Range Interpretation Comments NA (test code = 135 mmol/L 135-145 0963620708) K (test code = 3.8 mmol/L 3.5-5 4336281588) CL (test code = 105 mmol/L 98-108 5440678524) CO2 TOTAL (test code = 23 mmol/L 23-31 3949369650) AGAP (test code = 2-16 3497003080) BUN (test code = 10 mg/dL 7-23 2758625360) GLUCOSE (test code = 86 mg/dL 70-110 4070359983) CREATININE (test code = 0.39 mg/dL 0.5-1.04 L 9175157433) TOTAL BILI (test code = 0.1 mg/dL 0.1-1.7 5648902628) CALCIUM (test code = 9.0 mg/dL 8.6-10.6 4665048904) T PROTEIN (test code = 7.4 g/dL 6.3-8.2 5106921169) ALBUMIN (test code = 4.0 g/dL 3.5-5 3098597859) ALK PHOS (test code = 71 U/L 34-122 4673973190) ALTv (test code = 20 U/L 5-35 1742-6) AST(SGOT) (test code = 22 U/L 13-40 7870439984) eGFR Calculation mL/min/1.73m2 (Non-) (test code = 4682190831) eGFR Calculation mL/min/1.73m2 () (test code = 8976431067) KISHORE (test code = KISHORE) Association of [...] tests). Lab Interpretation Abnormal (test code = 89106-8) [facility] CenterLIPASE, [id number] 00:14:00 Test Item Value Reference Range Interpretation Comments LIPASE (test code = 3968559773) 47 U/L 0-220 Lab Interpretation (test code = Normal 22198-9) [facility][Q] IRON, TIBC AND FERRITIN [id number] 15:53:00 Test Item Value Reference Range Interpretation Comments IRON, TOTAL (test 108 {mcg/dl} 40-190 N code = IRON, TOTAL) IRON BINDING 454 {mcg/dL 250-450 CAPACITY (test code ca} = IRON BINDING CAPACITY) % SATURATION (test 24 {% CALC} 16-45 N SPECIMEN RECEIVED code = % DATE AND TIME: SATURATION) [id number] FERRITIN (test code 13 ng/ml 16-154 SPECIMEN RECEIVED = FERRITIN) DATE AND TIME: [facility][Q] OBSTETRIC [id number] 15:53:00 Test Item Value Reference Range Interpretation Comments WHITE BLOOD CELL 13.1 3.8-10.8 COUNT (test code = {Thousand/u} WHITE BLOOD CELL COUNT) RED BLOOD CELL 4.07 3.80-5.10 N COUNT (test code = {Million/uL} RED BLOOD CELL COUNT) HEMAGLOBIN; Normal 12.3 g/dl 11.7-15.5 N (test code = 45491-0) HEMATOCRIT; Normal 36.0 % 35.0-45.0 N (test code = 4544-3) MCV; Normal (test 88.5 fL 80.0-100.0 N code = 787-2) MCHC; Normal (test 34.2 g/dl 32.0-36.0 N code = 82439-0) RDW; Normal (test 13.2 % 11.0-15.0 N code = 788-0) PLATELET COUNT; 260 {Thousand/u} 140-400 N Normal (test code = 777-3) MPV; Normal (test 11.7 fL 7.5-12.5 N code = 83671-8) ABSOLUTE 9930 {cells/uL} 8938-8050 NEUTROPHILS (test code = ABSOLUTE NEUTROPHILS) ABSOLUTE [...] Normal 5.6 % N (test code = 10668-3) EOSINOPHILS; Normal 1.4 % N (test code = 45873-0) BASOPHILS; Normal 0.5 % N SPECIMEN R ECEIVED (test code = DATE AND TIME: 35768-2) 491883757389 ANTIBODY SCREEN, NO ANTIBODIES N Reference range No RBC W/REFL ID, DETECTED antibodies de tected TITER AND AG; This assay is a Normal (test code = screenin g test for 0-4) the detection o f red blood cell antibodies. The test is not to be us ed for pretransfus ion screening or fo r the medical managem ent of an alloimmun ized . SPEC IMEN RECEIVED DATE A ND TIME: 556 ABO GROUP (test A code = 883-9) RH TYPE (test code RH(D) NEGATIVE For add itional = 00360-8) information, pl ease refer to http://educatio nEnrique stDiagnostics.c om/fa q/QWS579 (This link is being provid ed for informational/e ducat ional purposes only.)SPECIMEN RECEIVED DATE A ND TIME: RPR (DX) W/REFL NON-REACTIVE NON-REACTIVE N SPECIMEN REC EIVED TITER AND DATE AND TIME: CONFIRMATORY TESTING (test code = RPR (DX) W/REFL TITER AND CONFIRMATORY TESTING) HEPATITIS B SURFACE NON-REACTIVE NON-REACTIVE N SPECIMEN RECEIVED ANTIGEN; Normal DATE AND BENJAMIN E: (test code = 755264632896 5195-3) RUBELLA ANTIBODY 3.85 {index} N Index Inter pretation (IGG); Normal (test ----- -- code = 58358-4) <0.90 Not co nsistent with Immunity 0.90-0.99 Equiv ocal > or = 1.00 Consistent with Immunity The presence of rub shaheen IgG antibody suggests immunization or past or current infe ction withrubella virus.SPECIMEN RECEIVED DATE A ND TIME: [facility][Q] [id number] DEHYDROGENASE, QUANT.2019-11-30 15:53:00 Test Item Value Reference Range Interpretation Comments [id number] 18.1 {U/g 7.0-20.5 SPECIMEN RECEIVED DEHYDROGENASE (test Hgb} DATE AND TIME: code = 130356089003 [id number]-[id number] DEHYDROGENASE) [facility][QL] FOLATE, [id number] 15:53:00 Test Item Value Reference Range Interpretation Comments FOLATE, SERUM 13.5 ng/ml N Reference Rang e Low: <3.4 (test code = Borderline: 3. 4-5.4 FOLATE, SERUM) Normal: >5.4 SPECIMEN RECEIVED DATE A ND TIME: [facility][Q] TREPONEMA PALLIDUM AB, PARTICLE [id number] 15:53:00 Test Item Value Reference Range Interpretation Comments TREPONEMA PALLIDUM NONREACTIVE Reference Range: AB, PARTICLE NonreactiveSPEC IMEN AGGLUTINATION (test RECEIVED DATE AND TIME: code = TREPONEMA 31874208290 6 PALLIDUM AB, PARTICLE AGGLUTINATION) [facility][QL] CULTURE, URINE, [id number] 15:53:00 Test Item Value Reference Range Interpretation Comments SOURCE: (test URINE, CLEAN code = SOURCE:) CATCH STATUS: (test FINAL code = STATUS:) ISOLATE 1: (test 50,000-100,000 A Lactobaci llus code = ISOLATE CFU/mL of speciesMay re present 1:) colonizers from external andint ernal genitalia. No f urther testing (includingsusce ptibili ty) will be performed.SPECI MEN RECEIVED DATE A ND TIME: [facility][Q] HEMOGLOBINOPATHY [id number] 15:53:00 Test Item Value Reference Range Interpretation Comments RED BLOOD CELL COUNT 3.96 3.80-5.10 N (test code = RED {Million/uL} BLOOD CELL COUNT) HEMAGLOBIN; Normal 12.4 g/dl 11.7-15.5 N (test code = 63976-2) HEMATOCRIT; Normal 35.4 % 35.0-45.0 N (test code = 4544-3) MCV; Normal (test 89.4 fL 80.0-100.0 N code = 787-2) MCH; Normal (test 31.3 pg 27.0-33.0 N code = 78079-2) RDW; Normal (test 13.4 % 11.0-15.0 N SPECIMEN R ECEIVED code = 788-0) DATE AND TIME: HEMOGLOBIN A (test 97.6 % >96.0 N code = HEMOGLOBIN A) HEMOGLOBIN F (test <1.0 <2.0 N code = HEMOGLOBIN F) HEMOGLOBIN A2 2.4 % 1.8-3.5 N (QUANT); Normal (test code = 51790-4) INTERPRETATION (test See Comment Normal code = phenotype.SPECI MEN INTERPRETATION) RECEIVED MIGUEL E AND TIME: [facility][Q] HIV-1/2 Antigen and Antibodies, Fourth Generation, with [id number] 15:53:00 Test Item Value Reference Range Interpretation Comments HIV AG/AB, 4TH NON-REACTIVE NON-REACTIVE N HIV-1 antigen and GEN; Normal HIV-1/HIV-2 ant ibodies were (test code = [place] [address]-5) laboratory evid ence of HIVinfection. Clemencia SUNSHINE [...] pertains, or as otherwise permitted by odalys w.A general authorization f or the release of medi daren orother information is NOT sufficient for this purpose. For ad ditional information ple ase refer tohttp://educat ionInsightly/fa q/IOF829(Thi s link is being provided for informational/e ducational purposes only.) The performance of this assay has not been clinicallyvalid ated in patients less t prince 2 years old. SPECIMEN R ECEIVED DATE AND TIME: [id number] [facility]. [facility] - GC/[id number] 00:00:00 Test Item Value Reference Range Interpretation Comments Case (test code = Click ImageLink button N Case) for report. [facility] PELVIS > 14 [id number] 15:31:35 1. No acute or adverse changes.2. Single, live intrauterine gestation with the size correlating well withdates. RL: 1105. Ordering Physician: Suman Sun History: Decreased movement. Comparison Study: None. Findings: ? Fetus: SingletonPresentation: VertexFetal heart rate: Documented with [...] regular rate of 143, 4-chambered heartis visualizedBPD: 3.6 cm with an EGA of 17 [...] with the size correlating well withdates.RL: 1105. [facility] 15:25:00 Test Item Value Reference Range Interpretation Comments APPEARANCE (test code = Hazy Clear A 8484199281) COLOR (test code = Yellow Yellow 0226999186) PH (test code = 4.8-8.0 6726051972) SP GRAVITY (test code = 1.003-1.030 2331142049) GLU U QUAL (test code = Normal Normal 7949467888) BLOOD (test code = Negative Negative 5091330550) KETONES (test code = Negative Negative 6370522902) PROTEIN (test code = Negative Negative 2887-8) UROBILIN (test code = Normal Normal 8656452477) BILIRUBIN (test code = Negative Negative 8149767815) NITRITE (test code = Negative Negative 4809917624) LEUK SELENA (test code = Negative Negative 9153141257) RBC/HPF (test code = See_Comment [Autom ated message] 3289467708) The system [employer] generated this result transmitted ref erence range: 0 - 3 HP F. The reference range was not used to int erpret this result as normal/abnormal . WBC/HPF (test code = See_Comment [Autom ated message] 8692248551) The system [employer] generated this result transmitted ref erence range: 0 - 5 HP F. The reference range was not used to int erpret this result as normal/abnormal . BACTERIA (test code = Negative Negative 2231728505) MUCOUS (test code = Slight Negative LPF A 8573842157) SQ EPITH (test code = HPF 7412128261) Lab Interpretation (test Abnormal code = 22639-2) [facility] URINALYSIS W SPECIFIC [id number] 19:05:00 Test Item Value Reference Range Interpretation [...] POCT U APPEAR (test code = 3267) [facility] URINALYSIS W SPECIFIC [id number] 19:05:00 Test Item Value Reference Range Interpretation [...] POCT U APPEAR (test code = 3267) [facility] SPECIFIC [id number] 16:48:00 Test Item Value Reference Range Interpretation [...] POCT U APPEAR (test code = 3267) [facility] CenterUS FIRST TRIMESTER LESS THAN 14 WEEKS WITH [id number] 14:45:42HISTORY: Vaginal bleeding. Rule out ectopic. TECHNIQUE: [...] in 2 weeks to confirm live IUP. [facility], Radiant Results Inft User - 09/16/2019 8:46 AM CSTHISTORY: Vaginal bleeding. Rule out ectopic.TECHNIQUE: Both transabdominal and transvaginal pelvic ultrasound studieswere completed by the technologist.FINDINGS: Uterus isenlarged, measures approximately 10.6 x 5.9 x 6.8 cm insize and contains an early intrauterine of approximately 6 weeksand 2 days size by mean sac diameter of 1.58 cm. Gestational sac, yolk sa cand pole very faintly visualized with probable cardiac activitynoted, heart rate recorded was only 112 BPM. Subcentimeter sizedsubchorionic hemorrhage is detected.Small nabothian cysts are seen in the cervix, the largest is 6 mm .Right ovary is 3.9 x 2.9 x 2.3 cm (14.31 ml) and leftovary is 3.0 x 2.0 x1.9 cm (6.19 ml). 18 mm corpus luteum hemorrhagicum noted in the rightovary.CONCLUSIONS: Early intrauterine of 6 weeks and 2 days size withsubcentimeter sized subchorionichemorrhage. Follow-up transvaginal pelvicultrasound study requested in 2 weeks to confirm live IUP. [facility] BETA HCG [id number] 14:03:00 Test Item Value Reference Range Interpretation Comments BETA HCG (test See_Comment [Automated m essage] code = The system [facility] h 8821081076) generated this result transmit tessie reference range : Non- fe male and male patien ts: <5 mIU/mL. The reference range was not used to interpret this result as normal/abnormal . KISHORE (test code Gestational Age ? ? = KISHORE) ?Range (mIU/mL) 1-10 ?Weeks ?15-73758632-18 Weeks ?59429-78319121-68 Weeks ?1734-52181475-00 Weeks ?1430-024596 Biotin has been reported to cause a negative bias, interpret results relative to patient's use of biotin. [facility] CenterType and Screen - ONCE [id number] 13:58:38 Test Item Value Reference Range Interpretation Comments ABO & RH (test code A Negative Performe d at [facility] = 20) Laboratory [facility] [place], [place] [address]Toll Free: [phone] A No. [id number] IAT (test code = Negative Performed a t [facility] 1185) Laboratory [facility] [place], [place] [address]Toll Free: [phone] A No. [id number] [facility] CenterBasi Metabolic Panel (NA, K, CL, CO2, GLUCOSE, BUN, CREATININE, CA)2019-09-16 13:15:00 Test Item Value Reference Range Interpretation Comments NA (test code = 136 mmol/L 135-145 5149559370) K (test code = 3.7 mmol/L 3.5-5 7857161239) CL (test code = 105 mmol/L 98-108 0430538884) CO2 TOTAL (test code = 23 mmol/L 23-31 3509361714) AGAP (test code = 2-16 2059832498) BUN (test code = 12 mg/dL 7-23 0343919419) GLUCOSE (test code = 108 mg/dL 70-110 5928231496) CREATININE (test code = 0.45 mg/dL 0.5-1.04 L 2503387689) CALCIUM (test code = 9.3 mg/dL 8.6-10.6 0574685784) eGFR Calculation mL/min/1.73m2 (Non-) (test code = 4184384978) eGFR Calculation mL/min/1.73m2 () (test code = 6061201981) KISHORE (test code = KISHORE) Association of [...] tests). Lab Interpretation Abnormal (test code = 38801-8) [facility] CenterHepatic Function Panel (ALB, T.PRO, BILI T, BU/BC, ALT, AST, ALK PHOS)2019-09-16 13:15:00 Test Item Value Reference Range Interpretation Comments TOTAL BILI (test code = 4175814586) 0.2 mg/dL 0.1-1.1 BILI UNCON (test code = 7575174325) 0.2 mg/dL 0.1-1.1 BILI CONJ (test code = 4778174196) 0.0 mg/dL 0-0.3 T PROTEIN (test code = 1285530900) 7.1 g/dL 6.3-8.2 ALBUMIN (test code = 8135060083) 4.0 g/dL 3.5-5 ALK PHOS (test code = 4055872455) 45 U/L 34-122 ALTv (test code = 1742-6) 36 U/L 5-35 H AST(SGOT) (test code = 7053546317) 27 U/L 13-40 Lab Interpretation (test code = Abnormal 10950-0) [facility] CenteraPTT2020-01-22 13:12:00 Test Item Value Reference Range Interpretation Comments APTT Patient (test See_Comment [Automat ed code = 3173-2) message] The system which generated this result transmitted reference range : 23 - 38 Seconds . The reference range was not used to interpr et this result as normal/abnormal . KISHORE (test code = KISHORE) The [facility] patient population mean normal value for aPTT is 30 seconds. Lab Interpretation Normal (test code = 01326-4) [facility] CenterProthrombin Time (PT) / [id number] 13:10:00 Test Item Value Reference Range Interpretation Comments PROTIME PATIENT (test See_Comment [Auto mated message] code = 5964-2) The system [employer] generated this result transmitted ref erence range: 12.0 - 1 4.7 Seconds. The re ference range was not u sed to interpret this result as normal/abnor mal. INR (test code = 6301-6) Nor mal INR <1.1; Warfarin Therap eutic range 2.0 to 3. 0 or 2.5 to 3.5, dep ending upon the indica tions. Lab Interpretation (test Normal code = 15682-0) [facility] CenterCBC WITH [id number] 13:03:00 Test Item Value Reference Range Interpretation Comments WBC (test code = See_Comment [Automated message] 6690-2) The system [employer] generated this result transmitted ref erence range: 4.30 - 1 1.10 10*3/?L. The re ference range was not u sed to interpret this result as normal/abnor mal. RBC (test code = See_Comment [Automated message] 789-8) The system [employer] generated this result transmitted ref erence range: [...] RDW-SD (test code 41.5 fL 39-49.9 = 27377-5) RDW-CV (test code 13.0 % 12-15.5 = 788-0) PLT (test code = See_Comment [Automated message] 777-3) The system whic h generated this result transmitted ref erence range: 166 - 35 8 10*3/?L. The re ference range was not u sed to interpret this result as normal/abnor mal. MPV (test code = 11.2 fL 9.5-12.9 63309-3) NRBC/100 WBC (test See_Comment [Automat ed message] code = 3894066422) The syste m which generated this result transmitted ref erence range: 0.0 - 10 .0 /100 WBCs. The refer ence range was not u sed to interpret this result as normal/abnor mal. NRBC x10^3 (test <0.01 See_Comment [Automated message] code = 1837110183) The syste m which generated this result transmitted ref erence range: 10*3/?L. The reference range was not used to interpr et this result as normal/abnormal . GRAN MAT (NEUT) % 64.6 % (test code = 770-8) IMM GRAN % (test 0.60 % code = 6865943637) LYMPH % (test code 24.6 % = 736-9) MONO % (test code 7.9 % = 5905-5) EOS % (test code = 1.8 % 713-8) BASO % (test code 0.5 % = 706-2) GRAN MAT 6.67 10*3/uL 1.88-7.09 x10^3(ANC) (test code = 7825153345) IMM GRAN x10^3 0.06 10*3/uL 0-0.06 (test code = 2879136499) LYMPH x10^3 (test 2.54 10*3/uL 1.32-3.29 code = 731-0) MONO x10^3 (test 0.82 10*3/uL 0.33-0.92 code = 742-7) EOS x10^3 (test 0.19 10*3/uL 0.03-0.39 code = 711-2) BASO x10^3 (test 0.05 10*3/uL 0.01-0.07 code = 704-7) [facility] CenterURINALYSIS2020-01-22 13:00:00 Test Item Value Reference Range Interpretation Comments APPEARANCE (test code = Hazy Clear A 9358892322) COLOR (test code = Yellow Yellow 8516670894) PH (test code = 4.8-8.0 3050719261) SP GRAVITY (test code = 1.003-1.030 2832900201) GLU U QUAL (test code = Normal Normal 4018972722) BLOOD (test code = 2+ Negative A 8483011023) KETONES (test code = Negative Negative 1667019443) PROTEIN (test code = Negative Negative 2887-8) UROBILIN (test code = Normal Normal 9453705822) BILIRUBIN (test code = Negative Negative 3523798715) NITRITE (test code = Negative Negative 5037614841) LEUK SELENA (test code = 500/uL Negative A 6374246408) RBC/HPF (test code = See_Comment H [Autom ated message] 1511395746) The system [employer] generated this result transmitted ref erence range: 0 - 3 HP F. The reference range was not used to int erpret this result as normal/abnormal . WBC/HPF (test code = See_Comment H [Autom ated message] 5005745425) The system [employer] generated this result transmitted ref erence range: 0 - 5 HP F. The reference range was not used to int erpret this result as normal/abnormal . BACTERIA (test code = Moderate Negative A 4802244975) MUCOUS (test code = Slight Negative LPF A 2604783244) SQ EPITH (test code = HPF 9366563154) Lab Interpretation (test Abnormal code = 66944-3) [facility] CenterPOCT [id number] 12:35:00 Test Item Value Reference Range Interpretation Comments POCT PREG (test code = 1605) positive On board controls acceptable with present C Line (test code = 3574) POCT PREG LOT # (test code = 3575) [id number] POCT PREG TEST DATE (test 08-25-2020 code = 3576) Lab Interpretation (test code = Normal 66328-2) [facility] CHLAMYDIA AMPLIFIED [id number] 18:57:00 Test Item Value Reference Range Interpretation Comments C. trachomatis Nucleic Acid (test Positive Negative A code = 78816-7) N. gonorrhoeae Nucleic Acid (test Negative Negative code = 13023-0) Lab Interpretation (test code = Abnormal 73028-8) [facility] (JESSICA) [id number] 17:54:00 Test Item Value Reference Range Interpretation Comments Rubella screen IgG Positive Negative (test code = 0894827966) KISHORE (test code = KISHORE) Positive - Indicates the patient was exposed to Rubella through infection or vaccination.Negative - Indicates the patient could be susceptible to Rubella infection.Equivocal - A second specimen should be sent. [facility] CenterVZV ANTIBODY [id number] 17:54:00 Test Item Value Reference Range Interpretation Comments VZV IgG antibody Positive Negative (test code = 10092-3) KISHORE (test code = KISHORE) Positive - Indicates the patient was exposed to VZV through infection or vaccination.Negative - Indicates the patient could be susceptible to VZV infection.Equivocal - A second specimen should be sent for testing. [facility] Center[facility] - SYPHILIS [id number] 15:14:00 Test Item Value Reference Range Interpretation Comments Syphilis IgG/IgM (test Non-reactive Non-reactive code = 99657-5) KISHORE (test code = KISHORE) Non-reactive - No serologic evidence of T. pallidum infection. Cannot exclude incubating or early syphilis. Submit a second specimen in 2-4 weeks if syphilis is clinically suspected. Equivocal - Further testing to follow. Reactive - Further testing to follow. Lab Interpretation (test Normal code = 21887-2) [facility] CenterPR[facility]AT[facility] WORKUP, BLOOD [id number] 09:33:37 Test Item Value Reference Range Interpretation Comments ABO & RH (test code A NEGATIVE Performe d at [facility] = 20) [facility] [address] [facility] s [id number] Free: [phone] A No. [id number] IAT (test code = Negative Performed a t [facility] 1185) Laboratory Serv [facility] Blood [facility]3 [facility] s [id number] Free: [phone] A No. [id number] [facility] CenterHIV 1/2 AG-AB WITH [id number] 07:47:00 Test Item Value Reference Range Interpretation Comments HIV Negative Negative Semi-quantitative (test code = 98694-0) KISHORE (test code = Non-reactive for HIV-1 KISHORE) antigen and HIV-1/HIV-2 antibodies. ?No laboratory evidence of HIV infection. ?Repeat in 2-4 weeks if acute HIV infection is suspected. [facility] CenterHEPATITIS B SURFACE [id number] 06:40:00 Test Item Value Reference Range Interpretation Comments HBsAg Semi-Quantitative (test code = Negative Negative 5195-3) [facility] CenterCBC WITH [id number] 06:36:00 Test Item Value Reference Range Interpretation Comments WBC (test code = See_Comment H [Automated 0590-2) message] The sy stem which generated this result transmitted reference range : 4.30 - 11.10 10*3/?L. The reference range was not used to interpret this result as normal/abnormal . RBC (test code = See_Comment [Automated 499-8) message] The sy stem which generated this [...] RDW-SD (test code = 42.2 fL 39-49.9 93631-9) RDW-CV (test code = 13.2 % 12-15.5 788-0) PLT (test code = See_Comment [Automated 777-3) message] The sy stem which generated this result transmitted reference range : 166 - 358 10*3/ ?L. The reference r diandra was not used to interpret this result as normal/abnormal . MPV (test code = 12.1 fL 9.5-12.9 29243-7) NRBC/100 WBC (test See_Comment [Automat ed code = 6088849309) message] The system which generated this result transmitted reference range : 0.0 - 10.0 /100 WBCs. The refer ence range was not u sed to interpret th is result as normal/abnormal . NRBC x10^3 (test code <0.01 See_Comment [Auto mated = [id number]) message] The s ystem which generated this result transmitted reference range : 10*3/?L. The reference range was not used to interpret this result as normal/abnormal . GRAN MAT (NEUT) % 67.8 % (test code = 770-8) IMM GRAN % (test code 0.30 % = 9167519006) LYMPH % (test code = 23.2 % 736-9) MONO % (test code = 6.5 % 5905-5) EOS % (test code = 1.8 % 713-8) BASO % (test code = 0.4 % 706-2) GRAN MAT x10^3(ANC) 7.68 10*3/uL 1.88-7.09 H (test code = 1652431224) IMM GRAN x10^3 (test 0.03 10*3/uL 0-0.06 code = 4146797771) LYMPH x10^3 (test code 2.63 10*3/uL 1.32-3.29 = 731-0) MONO x10^3 (test code 0.74 10*3/uL 0.33-0.92 = 742-7) EOS x10^3 (test code = 0.20 10*3/uL 0.03-0.39 711-2) BASO x10^3 (test code 0.05 10*3/uL 0.01-0.07 = 704-7) Lab Interpretation Abnormal (test code = 45599-7) [facility] URINALYSIS W/O SPECIFIC [id number] 20:42:00 Test Item Value Reference Range Interpretation [...] code = 3257) Neg Negative - Negative [facility] [id number] 20:40:00 Test Item Value Reference Range Interpretation Comments POCT PREG (test code = 1605) Positive On board controls acceptable with C Yes Line (test code = 3574) POCT PREG LOT # (test code = 3575) POCT PREG TEST DATE (test code = 3576) [facility] CenterPREGNANCY SCREEN, [id number] 20:01:00 Test Item Value Reference Range Interpretation Comments TEST URINE (BEAKER) (test Negative code = 583) [id number] 11:54:00 Test Item Value Reference Range Interpretation Comments RPR SCREEN (BEAKER) (test code = Nonreactive Nonreactive 420) HEMOGLOBIN [id number] 10:47:00 Test Item Value Reference Range Interpretation Comments HEMOGLOBIN A1C (BEAKER) (test code = 5.2 % 4.3-6.1 368) TSH/FREE T4 IF [id number] 06:03:00 Test Item Value Reference Range Interpretation Comments THYROID STIMULATING HORMONE 0.97 uIU/mL 0.35-4.94 (BEAKER) (test code = 772) VITAMIN B12 AND [id number] 06:03:00 Test Item Value Reference Range Interpretation Comments VITAMIN B12 (BEAKER) (test code = 384 pg/mL 213-816 774) FOLATE (BEAKER) (test code = 362) 11.5 ng/mL >=7.0 Effective 07/13/2014: Folate Reference Range ChangeNew: >=7.0 Previous: >=5.4HIV-1 ANTIGEN WITH HIV-1/2 [id number] 05:29:00 Test Item Value Reference Range Interpretation Comments HIV-1 ANTIGEN WITH HIV 1\\T\\2 Nonreactive Nonreactive ANTIBODY (2) (BEAKER) (test code = 2586) [id number] 05:18:00 Test Item Value Reference Range Interpretation [...] exclusion of thrombosis is within 95-100% range. [id number] 05:18:00 Test Item Value Reference Range Interpretation Comments MAGNESIUM (BEAKER) (test code = 2.1 mg/dL 1.6-2.6 627) LIPID [id number] 05:18:00 Test Item Value Reference Range Interpretation Comments TRIGLYCERIDES (BEAKER) (test code = 128 mg/dL 540) CHOLESTEROL (BEAKER) (test code = 159 mg/dL 631) HDL CHOLESTEROL (BEAKER) (test code 29 mg/dL = 976) LDL CHOLESTEROL CALCULATED (BEAKER) 104 mg/dL (test code = 633) Triglyceride Reference Range: Low Risk <150 Borderline 150-199 High Risk 200- 499 Very High Risk >=500Cholesterol Reference Range: Low Risk <200 Borderline 200-239 High Risk >240HDL Cholesterol Reference Range: Low Risk >=60 High Risk <40LDL Cholesterol Reference Range: Optimal <100 Near Optimal 100-129 Borderline 130-159 High 160-189 Very High >=190BASIC METABOLIC [id number] 05:18:00 Test Item Value Reference Range Interpretation [...] PATIEN TS. CBC W/PLT COUNT & AUTO [id number] 05:09:00 Test Item Value Reference Range Interpretation [...]
[2022-08-07 18:05] LABS: Protime INR 1.07
[2022-08-07 18:11] LABS: Absolute Lymphocytes (CBC) 2.6 K/uL (0.7-4.9); Hematocrit 39.8 % (36.0-45.0); Lymphocytes % 27.7 % (15.3-44.8); MCV 89.9 fL (80-100); MPV 9.1 fL (7.6-11.3); RBC Red Blood Cell Count 4.43 M/uL (3.86-4.86)
[2022-08-07 18:16] LABS: C-Reactive Protein 5.14 mg/L (<3.00); Potassium 3.6 mmol/L (3.5-5.1)
[2022-08-07] MEDS ORDERED: NA CHLORIDE 0.9% 1,000 ML ONE (18:37)
[2022-08-07] MEDS ORDERED: FENTANYL CITR 100 MCG/2 ML ONE (18:37)
[2022-08-07] MEDS ORDERED: CLINDAMYCIN 900MG/D5W 900 MG/50 ML IVPB IV ONE (19:17)
[2022-08-07 19:33] LABS: Urine Blood Negative (Negative); Urine Glucose Negative (Negative); Urine Protein Negative (Negative); Urine pH 6.5 (5.0-7.0)
--- NOTE | 2022-08-07 20:18 | RAD REPORT ---
EXAM DESCRIPTION: CT - CTFBWCON CLINICAL HISTORY: Left lower jaw pain Pain and swelling left jaw COMPARISON: Ct Stroke Brain Wo Cont dated 01/09/2017 TECHNIQUE: Axial 2 mm thick images of the face were obtained with sagittal and coronal reconstructio n images. All CT scans are performed using dose optimization technique as appropriate and may include automated exposure control or mA/KV adjustment according to patient size. FINDINGS: There is a large dental leif involving the left first mandibular molar. Large periapical abscess is present in this location measuring 12 x 9 millimeters.The adjacent soft tissues are mildly thickened. Along the left mandibular buccal cortex there is evidence of a 13 x 12 x 7 mm odontogenic abscess. Multiple enlarged bilateral submental lymph nodes are present.The paranasal sinuses and mastoids are clear. IMPRESSION: Large dental erosion left first mandibular molar, with large periapical abscess and ramesh cent odontogenic abscess as described.
[2022-08-07] MEDS ORDERED: KETOROLAC 30 MG/ML INJ ONE (20:54)
[2022-08-07 21:32] LABS: SARS-CoV-2 Antigen Rapid Res Negative (Negative)
--- NOTE | 2022-08-07 21:37 | EDPHYS ---
Physician Documentation [facility] Name: Lauren Polanco Age: 32 yrs Sex: Female : 1990 Arrival Date: 08/07/2022 Time: 16:55 Bed DIS3 Private MD: ED Physician Mark Anthony Whitley HPI: 08/07 17:45 This 32 yrs old Female presents to ER via Ambulatory with complaints of Toothache. cp 17:45 The patient presents with pain. The problem is located in the left lower jaw. Onset: cp The symptoms/episode began/occurred over the past year. 17:45 Duration: The symptoms are continuous, and are steadily getting worse. cp 17:45 Associated signs and symptoms: Pertinent positives: weight loss, Pertinent negatives: cp dysphagia, fever, inability to eat, vomiting. The patient has been recently seen by a physician: earlier today, with similar presenting complaints, and was sent to the [facility] Emergency Department for further evaluation, Patient reports she was referred to ED for IV antibiotics after seeing dentist today. 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 - Social history:: Smoking status: Reported history of juuling and/or vaping. ROS: 17:50 Constitutional: Positive for weight loss, Negative for body aches, chills, fever, poor cp PO intake. 17:50 Eyes: Negative for injury, pain, redness, and discharge. cp 17:50 ENT: Positive for dental pain, Negative for drainage from ear(s), ear pain, difficulty swallowing, difficulty handling secretions. 17:50 Neck: Negative for pain with movement, pain at rest, stiffness. 17:50 Cardiovascular: Negative for chest pain, palpitations. 17:50 Respiratory: Negative for cough, shortness of breath, wheezing. 17:50 Abdomen/GI: Negative for abdominal pain, vomiting, diarrhea, constipation. 17:50 Skin: Negative for cellulitis, rash. 17:50 Neuro: Negative for altered mental status, dizziness, headache, weakness. 17:50 All other systems are negative. Exam: 17:55 Constitutional: The patient appears in no acute distress, alert, awake, non-toxic, well cp developed, well nourished. 17:55 Head/face: Noted is swelling, of the left lower jaw, of the very mild swelling, cp tenderness, that is moderate, of the left mandible. 17:55 Eyes: Periorbital structures: appear normal, Conjunctiva: normal, no exudate, no injection, Sclera: no appreciated abnormality, Lids and lashes: appear normal, bilaterally. 17:55 ENT: External ear(s): are unremarkable, Ear canal(s): are normal, clear, TM's: bulging, is not appreciated, bilaterally, dullness, bilaterally, erythema, is not appreciated, bilaterally, Nose: is normal, Mouth: Lips: moist, Oral mucosa: pink and intact, moist, Gums: reddened, swollen, on the left lower outer gumline, abscess, is not appreciated, Posterior pharynx: Airway: no evidence of obstruction, patent, Tonsils: are normal in appearance, swelling, is not appreciated, erythema, is not appreciated, exudate, is not appreciated, Dental exam: dental caries, that is moderate, diffusely, fractured teeth are noted, specifically the lower left second molar (#18), pain, that is moderate, specifically in the lower left second molar (#18), Voice: is normal, negative trismus. 17:55 Neck: ROM/movement: is normal, is supple, without pain, no range of motions limitations. 17:55 Chest/axilla: Inspection: normal. 17:55 Cardiovascular: Rate: normal, Rhythm: regular. 17:55 Respiratory: the patient does not display signs of respiratory distress, Respirations: normal, no use of accessory muscles, no retractions, labored breathing, is not present, Breath sounds: are clear throughout, no decreased breath sounds, no stridor, no wheezing. 17:55 Abdomen/GI: Exam negative for discomfort, distension, guarding, Inspection: abdomen appears normal. 18:12 ECG was reviewed by the Attending Physician. Vital Signs: 17:21 BP 104 / 64; Pulse 60; Resp 16; Temp 98.8; Pulse Ox 100% ; Weight 72.57 kg; Height 5 jh5 ft. 1 in. (154.94 cm); Pain 10/10; 17:21 Body Mass Index 30.23 (72.57 kg, 154.94 cm) jh5 MDM: 17:30 Patient medically screened. cp 18:00 Differential diagnosis: dental caries, dental abscess, pericoronitis. cp 22:40 Data reviewed: vital signs, nurses notes, lab test result(s), radiologic studies, CT cp scan. Counseling: I had a detailed discussion with the patient and/or guardian regarding: the historical points, exam findings, and any diagnostic results supporting the discharge/admit diagnosis, lab results, radiology results, the need for outpatient follow up, for definitive care, a dentist, maxillary-facial surgeon. ED course: Attempt to transfer to higher level of care for maxillary-facial services denies at [facility] facilities, [facility], [facility] facilities, [facility], and [facility] facilities. Patient appears non-toxic, pain improved. Will discharge to home for continued monitoring. 08/07 17:34 Order name: CBC with Diff; Complete Time: 18:32 cp 08/07 18:32 Interpretation: Normal except: EOSINOPHIL % 6.9; EOSA 0.6. cp 08/07 17:34 Order name: BMP; Complete Time: 18:32 cp 13 17:34 Order name: PT-INR; Complete Time: 18:32 cp 13 17:34 Order name: CRP; Complete Time: 18:32 cp 13 18:32 Interpretation: Abnormal: C-REACTIVE PROT 5.14. cp 08/07 17:34 Order name: ESR; Complete Time: 18:32 cp 08/07 19:33 Order name: Urine Dipstick-Ancillary; Complete Time: 19:51 EDMS 08/07 19:27 Order name: Facial Bones W Con ; Complete Time: 20:22 EDMS 08/07 19:34 Order name: Urine --Ancillary (enter results); Complete Time: 19:51 ds4 08/07 20:34 Order name: SARS RAPID; Complete Time: 22:39 ds4 08/07 17:34 Order name: Urine Dipstick-Ancillary (obtain specimen); Complete Time: 19:33 cp 08/07 17:34 Order name: Urine Test (obtain specimen); Complete Time: 19:33 cp 08/07 17:34 Order name: IV; Complete Time: 18:06 cp 08/07 18:05 Order name: EKG; Complete Time: 18: cp 08/07 18:05 Order name: EKG - Nurse/Tech; Complete Time: 18:06 cp EC:12 Rate is 43 beats/min. Rhythm is regular. NE interval is normal. QRS interval is normal. cp QT interval is normal. T waves are Inverted in lead aVR. Interpreted by me. Reviewed by me. Administered Medications: 19:13 Drug: NS 0.9% 1000 ml Route: IV; Rate: 1 bolus; Site: left antecubital; vc1 23:19 Follow up: IV Status: Completed infusion; IV Intake: 1000ml eh3 19:14 Drug: fentaNYL (PF) 25 mcg Route: IVP; Site: left antecubital; vc1 23:19 Follow up: Response: Pain is decreased eh3 19:26 Drug: Clindamycin 900 mg Route: IVPB; Infused Over: 30 mins; Site: right antecubital; jh5 23:19 Follow up: Response: No adverse reaction; IV Intake: 50ml eh3 23:19 Follow up: IV Status: Completed infusion eh3 20:53 Drug: Ketorolac 15 mg Route: IVP; Site: right antecubital; jh5 21:13 Follow up: Response: No adverse reaction ld1 Disposition: 18:46 Co-signature as Attending Physician, Mark Anthony LADD was immediately available onsite ms3 in the emergency department for consultation in the care of the patient. Disposition Summary: 08/07/22 22:46 Discharge Ordered Location: Home cp Problem: new(08/07/22 22:46) cp Symptoms: have improved(08/07/22 22:46) cp Condition: Stable(08/07/22 22:46) cp Diagnosis - Periapical abscess without sinus cp Followup: cp - With: Navi Yousif DDS - When: 1 - 2 days - Reason: Recheck today's complaints Discharge Instructions: - Discharge Summary Sheet cp - Dental Abscess cp - Dental Pain cp Forms: - Medication Reconciliation Form cp - Thank You Letter cp - Antibiotic Education cp - Prescription Opioid Use cp Prescriptions: - Clindamycin HCl 300 mg Oral Capsule - take 1 capsule by ORAL route every 6 hours for 10 days; 40 capsule; Refills: 0, cp Product Selection Permitted - Diclofenac Sodium 75 mg Oral Tablet Sustained Release - take 1 tablet by ORAL route 2 times per day; 30 tablet; Refills: 0, Product cp Selection Permitted Signatures: Dispatcher [employer] EDMS Abelardo Alexander PA PA cp Mark Anthony Whitley DO DO ms3 Lauren Casey, RN RN jh5 Tanesha Rodrigues RN RN vc1 Analilia Keys RN ld1 Elsa Juares RN eh3 Corrections: (The following items were deleted from the chart) 19:25 17:35 Facial Bones W/ Con \T\ MPR+CT.RAD.BRZ ordered. EDMS EDMS 22:43 21:37 Doctor cp cp 22:43 21:37 Other Acute Care Facility cp cp 22:43 21:37 Higher level of care cp cp 22:43 21:37 Stable cp cp 22:43 21:37 an ongoing problem cp cp 22:43 21:37 have improved cp cp 22:43 21:37 Other specified disorders of teeth and supporting structures cp cp
--- NOTE | 2022-08-07 21:37 | ER ---
Nurse's Notes [facility] Name: Lauren Polanco Age: 32 yrs Sex: Female : 1990 Arrival Date: 08/07/2022 Time: 16:55 Bed DIS3 Private MD: Diagnosis: Periapical abscess without sinus Presentation: 08/07 17:21 Chief complaint: Patient states: toothache; went to dentist today and told me the jh5 infection got into my blood stream and they wouldn't give me oral antibiotics, they said i needed iv antibiotics; j carlos lost almost 100lbs in 1 month. Coronavirus screen: Vaccine status: Patient reports receiving the 2nd dose of the covid vaccine. Ebola Screen: Patient negative for fever greater than or equal to 101.5 degrees Fahrenheit, and additional compatible Ebola Virus Disease symptoms Patient denies exposure to infectious person. Patient denies travel to an Ebola-affected area in the 21 days before illness onset. Initial Sepsis Screen: Does the patient meet any 2 criteria? No. Patient's initial sepsis screen is negative. Does the patient have a suspected source of infection? No. Patient's initial sepsis screen is negative. Risk Assessment: Do you want to hurt yourself or someone else? Patient reports no desire to harm self or others. 17:21 Method Of Arrival: Ambulatory [facility] 17:21 Acuity: YANICK 3 [facility] Triage Assessment: 17:25 General: Appears in no apparent distress. Behavior is calm, cooperative, appropriate [facility] for age. Pain: Complains of pain in jaw/tooth. 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 - Social history:: Smoking status: Reported history of juuling and/or vaping. Screenin:54 [facility] ED Fall Risk Assessment (Adult) History of falling in the last 3 months, ld1 including since admission No falls in past 3 months (0 pts). Humpty Dumpty Scale Fall Assessment Tool (age< 18yrs) Age 13 years and above (1 pt) Gender Female (1 pt). Abuse screen: Denies threats or abuse. Denies injuries from another. Nutritional screening: No deficits noted. Tuberculosis screening: No symptoms or risk factors identified. Fall Risk No fall in past 12 months (0 pts). Assessment: 20:54 Reassessment: Patient appears in no apparent distress at this time. See triage ld1 assessment. General: Appears in no apparent distress. comfortable, Behavior is calm, cooperative, appropriate for age. Pain: Complains of pain in mouth Pain does not radiate. Pain currently is 8 out of 10 on a pain scale. Quality of pain is described as throbbing. Neuro: Level of Consciousness is awake, alert, obeys commands, Oriented to person, place, time, situation. Cardiovascular: Capillary refill < 3 seconds Patient's skin is warm and dry. Respiratory: Airway is patent Respiratory effort is even, unlabored. GI: Abdomen is flat, non-distended. : No signs and/or symptoms were reported regarding the genitourinary system. EENT: No signs and/or symptoms were reported regarding the EENT system. Derm: No signs and/or symptoms reported regarding the dermatologic system. Musculoskeletal: No signs and/or symptoms reported regarding the musculoskeletal system. Vital Signs: 17:21 BP 104 / 64; Pulse 60; Resp 16; Temp 98.8; Pulse Ox 100% ; Weight 72.57 kg; Height 5 5 ft. 1 in. (154.94 cm); Pain 10/10; 17:21 Body Mass Index 30.23 (72.57 kg, 154.94 cm) [facility] ED Course: 16:55 Patient arrived in ED. jj6 16:59 Abelardo Alexander PA is PHCP. cp 16:59 Mark Anthony Whitley DO is Attending Physician. cp 17:25 Triage completed. 5 17:25 Arm band placed on left wrist. 5 20:04 Facial Bones W Con In Process Unspecified. EDMS 20:54 Patient has correct armband on for positive identification. Placed in gown. Bed in low ld1 position. Call light in reach. Side rails up X2. Pulse ox on. NIBP on. Door closed. Noise minimized. Warm blanket given. 20:54 No provider procedures requiring assistance completed. Inserted saline lock: 20 gauge ld1 in right antecubital area, using aseptic technique. 21:13 SARS RAPID Sent. ld1 22:43 Navi Yousif DDS is Referral Physician. cp 23:18 IV discontinued, intact, bleeding controlled, No redness/swelling at site. Pressure eh3 dressing applied. Administered Medications: 19:13 Drug: NS 0.9% 1000 ml Route: IV; Rate: 1 bolus; Site: left antecubital; vc1 23:19 Follow up: IV Status: Completed infusion; IV Intake: 1000ml eh3 19:14 Drug: fentaNYL (PF) 25 mcg Route: IVP; Site: left antecubital; vc1 23:19 Follow up: Response: Pain is decreased eh3 19:26 Drug: Clindamycin 900 mg Route: IVPB; Infused Over: 30 mins; Site: right antecubital; jh5 23:19 Follow up: Response: No adverse reaction; IV Intake: 50ml eh3 23:19 Follow up: IV Status: Completed infusion eh3 20:53 Drug: Ketorolac 15 mg Route: IVP; Site: right antecubital; jh5 21:13 Follow up: Response: No adverse reaction ld1 Medication: 20:54 VIS not applicable for this client. ld1 Intake: 23:19 IV: 50ml; Total: 50ml. eh3 23:19 IV: 1000ml; Total: 1050ml. eh3 Outcome: 21:37 ER care complete, transfer ordered by MD. cp 22:46 Discharge ordered by MD. cp 23:18 Discharged to home ambulatory, with significant other. eh3 23:18 Condition: stable 23:18 Discharge instructions given to patient, Instructed on discharge instructions, follow up and referral plans. medication usage, Demonstrated understanding of instructions, follow-up care, medications, Prescriptions given X 2. 23:18 Patient left the ED. eh3 Signatures: Dispatcher [employer] EDMS Abelardo Alexander PA PA cp Analilia Keys RN RN ld1 Lilliana Shaikhj6 Lauren Casey RN RN jh5 Tanesha Rodrigues RN RN vc1 Elsa Juares RN RN eh3 Corrections: (The following items were deleted from the chart) 17:28 17:21 BP 104 / 64; Pulse 88bpm; Resp 16bpm; Pulse Ox 100%; Temp 98.8F; 72.57 kg; Height jh5 5 ft. 1 in.; BMI: 30.2; Pain 10; jh5
[2022-08-07 23:23] VITALS: BP 104/64; TEMP 98.8; O2SAT 100
== END 2022-08-07 23:18 | disposition home or self-care (01) ==
LOC: ER 16:46
DX: K04.7 Periapical abscess without sinus (principal); Z20.822 Contact with and (suspected) exposure to COVID-19; Z88.1 Allergy status to other antibiotic agents
CPT/HCPCS: 85025; 80048; 36415; 81025; 85610; 85652; 81003; 86140; 70487; 76377; 87811; Q9967; J3010; J7030; 93005

== ENCOUNTER 2022-10-21 16:05 | Emergency (ER) | payer OTHER ==
--- OUTSIDE RECORDS SUMMARY | 2022-10-21 16:19 | XMS REPORT | Continuity of Care Document ---
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 bedtime. Medical Branch multivit-mi 2019-08 Yes Take by Uni vers n/ferrous 0-12 mouth. ity of fumarate 15:53: [place] ([facility] 21 Medical VITAMIN Branch ORAL) escitalopra 2019-08 Yes 20mg Take 20 mg Univers m oxalate 0-12 by mouth ity of (LEXAPRO) 15:53: daily. [place] 20 mg 21 Medical tablet Branch traZODone 2019-08 Yes 75mg Take 75 mg Un husam 100 mg 0-12 by mouth ity of tablet 15:53: at [place] 21 bedtime. Medical Branch multivit-mi 2019-08 Yes Take by Uni vers n/ferrous 0-12 mouth. ity of fumarate 15:53: [place] ([facility] 21 Medical VITAMIN Branch ORAL) escitalopra 2019-08 Yes 20mg Take 20 mg Univers m oxalate 0-12 by mouth ity of (LEXAPRO) 15:53: daily. [place] 20 mg 21 Medical tablet Branch traZODone 2019-08 Yes 75mg Take 75 mg Un husam 100 mg 0-12 by mouth ity of tablet 15:53: at [place] [address] bedtime. Medical Branch bromphenira 2019-1 2020- No [id number] 5mL Take 5 mL Univers mine-pseudo 006-17 by mouth 4 i ty of ephedrine-D 00:00: 04:59 (four) [place] as M (BROMFED 00 :00 times Medical DM) 2-30-10 daily as Bran ch mg/5 mL needed for syrup Congestion /Allergies for up to 10 days. acyclovir 2019-08- No [id number] 400mg Take 1 Univers 400 mg 006-14 07 tablet by ity of tablet 00:00: 04:59 mouth 3 [place] 00 :00 (three) Medical times Branch daily for 7 days. methylPREDN 2019-08- No [id number] Take by [facility] ISolone 4 006-13 mouth ity of mg tablets 00:00: 04:59 SEE-INSTRU [place] 00 :00 CTIONS for Medical 6 days. Branch follow package directions naproxen 2019-08- No [id number] 500mg Take 1 Univers 500 mg 0-02 06-27 9102 tablet by ity of tablet 00:00: 05:59 mouth 2 [place] 00 :00 (two) Medical times Branch daily as needed for Pain (scale 4-6) for up to 30 days. naproxen 2019-08- No [id number] 500mg Take 1 Univers 500 mg 0-02 06-27 9102 tablet by ity of tablet 00:00: 05:59 mouth 2 [place] 00 :00 (two) Medical times Branch daily as needed for Pain (scale 4-6) for up to 30 days. naproxen 2019-08- No [id number] 500mg Take 1 Univers 500 mg 0-02 06-27 9102 tablet by ity of tablet 00:00: 05:59 mouth 2 [place] 00 :00 (two) Medical times Branch daily as needed for Pain (scale 4-6) for up to 30 days. naproxen 2019-08- No [id number] 500mg Take 1 [facility] 500 mg 0-02 06-2702 tablet by ity of tablet 00:00: 05:59 mouth 2 [place] 00 :00 (two) Medical times Branch daily as needed for Pain (scale 4-6) for up to 30 days. methylPREDN 2019-08- No [id number] Take by Univers ISolone 4 0-06-03 9102 mouth ity of mg tablets 00:00: 04:59 SEE-INSTRU [place] 00 :00 CTIONS for Medical 6 days. Branch follow package directions methylPREDN 2019- 2020- No [id number] Take by Univers ISolone 4 0-02 06-03 9102 mouth ity of mg tablets 00:00: 04:59 SEE-INSTRU [place] 00 :00 CTIONS for Medical 6 days. Branch follow package directions methylPREDN 2019- 2020- No [id number] Take by Univers ISolone 4 0-02 06-03 9102 mouth ity of mg tablets 00:00: 04:59 SEE-INSTRU [place] 00 :00 CTIONS for Medical 6 days. Branch follow package directions cyclobenzap 2019-08 2020- No [id number] 5mg Take 1 Univers rine 5 mg 0-02 10-08 tablet by ity of tablet 00:00: 04:59 mouth 3 [place] 00 :00 (three) Medical times Branch daily for 5 days. cyclobenzap 2019- 2020- No [id number] 5mg Take 1 Univers rine 5 mg 0-02 10-08 tablet by ity of tablet 00:00: 04:59 mouth 3 [place] 00 :00 (three) Medical times Branch daily for 5 days. cyclobenzap 2019-08 2020- No [id number] 5mg Take 1 Univers rine 5 mg 0-02 10-08 tablet by ity of tablet 00:00: 04:59 mouth 3 [place] 00 :00 (three) Medical times Branch daily for 5 days. multivit-mi 2020-0 Yes Take by Uni vers n/ferrous 8-15 mouth. ity of fumarate 17:31: [place] ([place] [address] Medical VITAMIN Branch ORAL) escitalopra 2020-0 Yes 20mg Take 20 mg Univers m oxalate 8-15 by mouth ity of (LEXAPRO) 17:31: daily. [place] 20 mg 54 Medical tablet Branch traZODone 2020-0 Yes 75mg Take 75 mg Un husam 100 mg 8-15 by mouth ity of tablet 17:31: at [place] [address] bedtime. Medical Branch multivit-mi 2020-0 Yes Take by Uni vers n/ferrous 8-15 mouth. ity of fumarate 17:31: [place] ([place] [address] Medical VITAMIN Branch ORAL) escitalopra 2020-0 Yes 20mg Take 20 mg Univers m oxalate 8-15 by mouth ity of (LEXAPRO) 17:31: daily. [place] 20 mg 54 Medical tablet Branch traZODone 2020-0 Yes 75mg Take 75 mg Un husam 100 mg 8-15 by mouth ity of tablet 17:31: at [place] [address] bedtime. Medical Branch multivit-mi 2020-0 Yes Take by Uni vers n/ferrous 8-15 mouth. ity of fumarate 17:31: [place] ([place] [address] Medical VITAMIN Branch ORAL) escitalopra 2020-0 Yes 20mg Take 20 mg Univers m oxalate 8-15 by mouth ity of (LEXAPRO) 17:31: daily. [place] 20 mg 54 Medical tablet Branch traZODone 2020-0 Yes 75mg Take 75 mg Un husam 100 mg 8-15 by mouth ity of tablet 17:31: at [place] [address] bedtime. Medical Branch multivit-mi 2020-0 Yes Take by Uni vers n/ferrous 8-15 mouth. ity of fumarate 17:31: [place] ([place] [address] Medical VITAMIN Branch ORAL) escitalopra 2020-0 Yes 20mg Take 20 mg Univers m oxalate 8-15 by mouth ity of (LEXAPRO) 17:31: daily. [place] 20 mg 54 Medical tablet Branch traZODone 2020-0 Yes 75mg Take 75 mg Un husam 100 mg 8-15 by mouth ity of tablet 17:31: at [place] [address] bedtime. Medical Branch multivit-mi 2020-0 Yes Take by Uni vers n/ferrous 8-15 mouth. ity of fumarate 17:31: [place] ([place] [address] Medical VITAMIN Branch ORAL) escitalopra 2020-0 Yes 20mg Take 20 mg Univers m oxalate 8-15 by mouth ity of (LEXAPRO) 17:31: daily. [place] 20 mg 54 Medical tablet Branch traZODone 2020-0 Yes 75mg Take 75 mg Un husam 100 mg 8-15 by mouth ity of tablet 17:31: at [place] [address] bedtime. Medical Branch multivit-mi 2020-0 Yes Take by Uni vers n/ferrous 8-15 mouth. ity of fumarate 17:31: [place] ([place] [address] Medical VITAMIN Branch ORAL) escitalopra 2020-0 Yes 20mg Take 20 mg Univers m oxalate 8-15 by mouth ity of (LEXAPRO) 17:31: daily. [place] 20 mg 54 Medical tablet Branch traZODone 2020-0 Yes 75mg Take 75 mg Un husam 100 mg 8-15 by mouth ity of tablet 17:31: at [place] 54 bedtime. Medical Branch Ursodiol Ursodiol 2020-0 Yes [...] (MULTI 07 Medical VITAMIN Branch ORAL) HYDROcodone 2019-0 2020- No 1{tbl} 1 tablet, Univers -acetaminop 03-06- Oral, ity of hen (NORCO 17:45: 17:08 ONCE, 1 [place] 5) 5-325 mg 00 :00 dose, Sun Med ical tablet 1 03/06/[address] [facility] h tablet 1245, [place] clindamycin 2019-0 2020- No 450mg 450 mg, U nivers (CLEOCIN 03-06 Oral, ity of HCL) 17:45: 17:08 ONCE, 1 [place] capsule 450 00 :00 dose, Sun Med ical mg 03/06/20 at Branch 1245, GLENN
Re ason for Anti-Infec tive: Documented Infection< br>Documen tessie Infection Site: HEENT
D uration of Therapy: 10 days
Re stricted use approved by: [employer] PROVIDER acetaminoph 2019-0 Yes [id number] 1{tbl} Take 1 Un husam [...] (scale 4-6). Indication s: acute pain acetaminoph 2020- No 4647 1{tbl} Take 1 U nivers en-codeine -12 - tablet by ity of 300-30 mg 00:00: 00:00 mouth [place] tablet 00 :00 every 4 Medical (four) Branch hours as needed for Pain (scale 4-6). Indication s: acute pain clindamycin 2019- No [id number] 450mg Take 3 Univers 150 mg 7-12 07-23 capsules ity of capsule 00:00: 04:59 by mouth 3 [place] 00 :00 (three) Medical times Branch daily for 10 days. clindamycin 2019- No [id number] 450mg Take 3 Univers 150 mg 7-12 07-23 capsules ity of capsule 00:00: 04:59 by mouth 3 [place] 00 :00 (three) Medical times Branch daily for 10 days. clindamycin 2019- No [id number] 450mg Take 3 Univers 150 mg 7-12 07-23 capsules ity of capsule 00:00: 04:59 by mouth 3 [place] 00 :00 (three) Medical times Branch daily for 10 days. clindamycin 2019- No [id number] 450mg Take 3 Univers 150 mg 7-12 07-23 capsules ity of capsule 00:00: 04:59 by mouth 3 [place] 00 :00 (three) Medical times Branch daily for 10 days. HYDROcodone 2019- No 1{tbl} 1 tablet, Univers -acetaminop 6-15 06-15 Oral, ONCE i ty of hen (NORCO) 04:00: 03:06 NOW, 1 [place] as 10-325 mg 00 :00 dose, Sun Medic al tablet 1 02/07/[address] [facility] h tablet 2300, Routine Esgic Esgic Yes YASHIRA TAKE 1 TO [facility] 50-325-40 50-325-40 5-21 HURT 2 CAPSULES Physici MG Oral MG Oral 00:00: M.D. EVERY 4 TO a ns Capsule Capsule 00 6 HOURS NEEDED FOR PAIN. Prochlorper Prochlorper Yes YASHIRA Q8H TAKE 1 [facility] azine azine 5-21 HURT TABLET Physici Maleate 10 Maleate 10 00:00: M.D. EVERY 8 ans MG Oral MG Oral 00 HOURS Tablet Tablet NEEDED. magnesium 2020-0 Yes 400mg 400 mg, Univ ers oxide -21 Oral, ity of (MAG-OX 14:00: DAILY, [place] 400) tablet 00 First dose Me dical 400 mg on Sat Branch 12/15/19 at 0900, Until Discontinu ed, Routine HYDROcodone 2020-0 2020- No 1{tbl} 1 tablet, Univers -acetaminop 12-14-21 Oral, ity of hen (NORCO 03:15: 02:14 ONCE, 1 [place] 5) 5-325 mg 00 :00 dose, Mon Med ical tablet 1 12/14/19 at Bran h tablet 2215, [place] magnesium 2020-0 Yes [id number] 400mg Take 1 Univers oxide 400 4-20 tablet by ity o f mg (241.3 00:00: mouth [place] mg 00 daily. Medical magnesium) Branch tablet magnesium 2020-0 Yes [id number] 400mg Take 1 Univers oxide 400 4-20 tablet by ity o f mg (241.3 00:00: mouth [place] mg 00 daily. Medical magnesium) Branch tablet magnesium 2020-0 Yes [id number] 400mg Take 1 Univers oxide 400 4-20 tablet by ity o f mg (241.3 00:00: mouth [place] mg 00 daily. Medical magnesium) Branch tablet magnesium 2020-0 Yes [id number] 400mg Take 1 Univers oxide 400 4-20 tablet by ity o f mg (241.3 00:00: mouth [place] mg 00 daily. Medical magnesium) Branch tablet magnesium 2020-0 Yes [id number] 400mg Take 1 Univers oxide 400 4-20 tablet by ity o f mg (241.3 00:00: mouth [place] mg 00 daily. Medical magnesium) Branch tablet magnesium 2020-0 Yes [id number] 400mg Take 1 Univers oxide 400 4-20 tablet by ity o f mg (241.3 00:00: mouth [place] mg 00 daily. Medical magnesium) Branch tablet magnesium 2020-0 Yes [id number] 400mg Take 1 Univers oxide 400 4-20 tablet by ity o f mg (241.3 00:00: mouth [place] mg 00 daily. Medical magnesium) Branch tablet magnesium 2020-0 Yes [id number] 400mg Take 1 Univers oxide 400 4-20 tablet by ity o f mg (241.3 00:00: mouth [place] mg 00 daily. Medical magnesium) Branch tablet magnesium 2020-0 Yes [id number] 400mg Take 1 Univers oxide 400 4-20 tablet by ity o f mg (241.3 00:00: mouth [place] mg 00 daily. Medical magnesium) Branch tablet magnesium 2020-0 Yes [id number] 400mg Take 1 Univers oxide 400 4-20 tablet by ity o f mg (241.3 00:00: mouth [place] mg 00 daily. Medical magnesium) Branch tablet magnesium 2020-0 Yes [id number] 400mg Take 1 Univers oxide 400 4-20 tablet by ity o f mg (241.3 00:00: mouth [place] mg 00 daily. Medical magnesium) Branch tablet magnesium 2020-0 Yes [id number] 400mg Take 1 Univers oxide 400 4-20 tablet by ity o f mg (241.3 00:00: mouth [place] mg 00 daily. Medical magnesium) Branch tablet magnesium 2020-0 Yes [id number] 400mg Take 1 Univers oxide 400 4-20 tablet by ity o f mg (241.3 00:00: mouth [place] mg 00 daily. Medical magnesium) Branch tablet magnesium 2020-0 Yes [id number] 400mg Take 1 Univers oxide 400 4-20 tablet by ity o f mg (241.3 00:00: mouth [place] mg 00 daily. Medical magnesium) Branch tablet magnesium 2020-0 Yes [id number] 400mg Take 1 Univers oxide 400 4-20 tablet by ity o f mg (241.3 00:00: mouth [place] mg 00 daily. Medical magnesium) Branch tablet magnesium 2020-0 Yes [id number] 400mg Take 1 Univers oxide 400 4-20 tablet by ity o f mg (241.3 00:00: mouth [place] mg 00 daily. Medical magnesium) Branch tablet magnesium 2020-0 Yes [id number] 400mg Take 1 Univers oxide 400 4-20 tablet by ity o f mg (241.3 00:00: mouth [place] mg 00 daily. Medical magnesium) Branch tablet magnesium 2020-0 Yes [id number] 400mg Take 1 Univers oxide 400 4-20 tablet by ity o f mg (241.3 00:00: mouth [place] mg 00 daily. Medical magnesium) Branch tablet magnesium 2020-0 Yes [id number] 400mg Take 1 Univers oxide 400 4-20 tablet by ity o f mg (241.3 00:00: mouth [place] mg 00 daily. Medical magnesium) Branch tablet magnesium 2020-0 Yes [id number] 400mg Take 1 Univers oxide 400 4-20 tablet by ity o f mg (241.3 00:00: mouth [place] mg 00 daily. Medical magnesium) Branch tablet magnesium 2020-0 Yes [id number] 400mg Take 1 Univers oxide 400 4-20 tablet by ity o f mg (241.3 00:00: mouth [place] mg 00 daily. Medical magnesium) Branch tablet magnesium 2020-0 Yes [id number] 400mg Take 1 Univers oxide 400 4-20 tablet by ity o f mg (241.3 00:00: mouth [place] mg 00 daily. Medical magnesium) Branch tablet magnesium 2020-0 Yes [id number] 400mg Take 1 Univers oxide 400 4-20 tablet by ity o f mg (241.3 00:00: mouth [place] mg 00 daily. Medical magnesium) Branch tablet magnesium 2020-0 Yes [id number] 400mg Take 1 Univers oxide 400 4-20 tablet by ity o f mg (241.3 00:00: mouth [place] mg 00 daily. Medical magnesium) Branch tablet magnesium 2019-0 Yes [id number] 400mg Take 1 Univers oxide 400 4-20 tablet by ity o f mg (241.3 00:00: mouth [place] mg 00 daily. Medical magnesium) Branch tablet magnesium 2020-0 Yes [id number] 400mg Take 1 Univers oxide 400 4-20 tablet by ity o f mg (241.3 00:00: mouth [place] mg 00 daily. Medical magnesium) Branch tablet magnesium 2019-0 2020- No [id number] 400mg Take 1 Univers oxide 400 4-20 03-01 tablet by ity of mg (241.3 00:00: 00:00 mouth [place] mg 00 :00 daily. Medical magnesium) Branch tablet magnesium 2019-0 2020- No [id number] 400mg Take 1 Univers oxide 400 4-20 03-01 tablet by ity of mg (241.3 00:00: 00:00 mouth [place] mg 00 :00 daily. Medical magnesium) Branch tablet traZODone traZODone 2019-0 Yes KAVIN 1.5 TAKE 1.5 [facility] HCl - 50 MG HCl - 50 MG 4-15 [facility] TABLET [facility] Oral Tablet Oral Tablet 00:00: M.D. BEDTIME ans 00 Escitalopra Escitalopra 2020-0 Yes KAVIN 1 QD TAKE 1 [facility] m Oxalate m Oxalate 4-15 [facility] TABLET [facility] 20 MG Oral 20 MG Oral 00:00: M.D. DAILY. ans Tablet Tablet 00 metroNIDAZO metroNIDAZO 2020-0 Yes CHASE TAKE 4 UT LE 500 MG LE 500 MG 4-09 [place] TABLETS Physici Oral Tablet Oral Tablet 00:00: M.D. ONCE. ans 00 multivit-mi 2019-0 Yes Take by Uni vers n/ferrous 3-23 mouth. ity of fumarate 14:12: [place] (MULTI 20 Medical VITAMIN Branch ORAL) multivit-mi 2020-0 Yes Take by Uni vers n/ferrous 3-23 mouth. ity of fumarate 14:12: [place] ([facility] 20 Medical VITAMIN Branch ORAL) multivit-mi 2019-0 Yes Take by Uni vers n/ferrous 3-23 mouth. ity of fumarate 14:12: [place] ([facility] 20 Medical VITAMIN Branch ORAL) multivit-mi 2019-0 Yes Take by Uni vers n/ferrous 3-23 mouth. ity of fumarate 14:12: [place] ([facility] 20 Medical VITAMIN Branch ORAL) multivit-mi 2019-0 Yes Take by Uni vers n/ferrous 3-23 mouth. ity of fumarate 14:12: [place] ([facility] 20 Medical VITAMIN Branch ORAL) multivit-mi 2019-0 Yes Take by Uni vers n/ferrous 3-23 mouth. ity of fumarate 14:12: [place] ([facility] 20 Medical VITAMIN Branch ORAL) multivit-mi 2020-0 Yes Take by Uni vers n/ferrous 3-23 mouth. ity of fumarate 14:12: [place] ([facility] 20 Medical VITAMIN Branch ORAL) multivit-mi 2020-0 Yes Take by Uni vers n/ferrous 3-23 mouth. ity of fumarate 14:12: [place] ([facility] 20 Medical VITAMIN Branch ORAL) multivit-mi 2020-0 Yes Take by Uni vers n/ferrous 3-23 mouth. ity of fumarate 14:12: [place] ([facility] 20 Medical VITAMIN Branch ORAL) multivit-mi 2020-0 Yes Take by Uni vers n/ferrous 3-23 mouth. ity of fumarate 14:12: [place] ([facility] 20 Medical VITAMIN Branch ORAL) multivit-mi 2020-0 Yes Take by Uni vers n/ferrous 3-23 mouth. ity of fumarate 14:12: [place] (MULTI 20 Medical VITAMIN Branch ORAL) multivit-mi 2020-0 Yes Take by Uni vers n/ferrous 3-23 mouth. ity of fumarate 14:12: [place] (MULTI 20 Medical VITAMIN Branch ORAL) multivit-mi 2020-0 Yes Take by Uni vers n/ferrous 3-23 mouth. ity of fumarate 14:12: [place] (MULTI 20 Medical VITAMIN Branch ORAL) multivit-mi 2020-0 Yes Take by Uni vers n/ferrous 3-23 mouth. ity of fumarate 14:12: [place] (MULTI 20 Medical VITAMIN Branch ORAL) multivit-mi 2020-0 Yes Take by Uni vers n/ferrous 3-23 mouth. ity of fumarate 14:12: [place] (MULTI 20 Medical VITAMIN Branch ORAL) multivit-mi 2020-0 Yes Take by Uni vers n/ferrous 3-23 mouth. ity of fumarate 14:12: [place] (MULTI 20 Medical VITAMIN Branch ORAL) multivit-mi 2020-0 Yes Take by Uni vers n/ferrous 3-23 mouth. ity of fumarate 14:12: [place] (MULTI 20 Medical VITAMIN Branch ORAL) multivit-mi 2020-0 Yes Take by Uni vers n/ferrous 3-23 mouth. ity of fumarate 14:12: [place] (MULTI 20 Medical VITAMIN Branch ORAL) multivit-mi 2020-0 Yes Take by Uni vers n/ferrous 3-23 mouth. ity of fumarate 14:12: [place] (MULTI 20 Medical VITAMIN Branch ORAL) multivit-mi 2020-0 Yes Take by Uni vers n/ferrous 3-23 mouth. ity of fumarate 14:12: [place] (MULTI 20 Medical VITAMIN Branch ORAL) multivit-mi 2020-0 Yes Take by Uni vers n/ferrous 3-23 mouth. ity of fumarate 14:12: [place] (MULTI 20 Medical VITAMIN Branch ORAL) multivit-mi 2020-0 Yes Take by Uni vers n/ferrous 3-23 mouth. ity of fumarate 14:12: [place] (MULTI 20 Medical VITAMIN Branch ORAL) multivit-mi 2020-0 Yes Take by Uni vers n/ferrous 3-23 mouth. ity of fumarate 14:12: [place] (MULTI 20 Medical VITAMIN Branch ORAL) multivit-mi 2020-0 Yes Take by Uni vers n/ferrous 3-23 mouth. ity of fumarate 14:12: [place] (MULTI 20 Medical VITAMIN Branch ORAL) multivit-mi 2020-0 Yes Take by Uni vers n/ferrous 3-23 mouth. ity of fumarate 14:12: [place] (MULTI 20 Medical VITAMIN Branch ORAL) multivit-mi 2020-0 Yes Take by Uni vers n/ferrous 3-23 mouth. ity of fumarate 14:12: [place] (MULTI 20 Medical VITAMIN Branch ORAL) acetaminoph 2020-0 Yes [id number] 1{capsu Take 1 Univers en-caff-but 3-23 le} capsule by it y of albital 00:00: mouth [place] (ESGIC) per 00 every 6 Medic al capsule (six) Branch hours as needed (migraine headache). proCHLORper 2020-0 Yes [id number] 10mg Take 1 Univers azine 3-23 tablet by ity of (COMPAZINE) 00:00: mouth [place] 10 mg 00 every 6 Medical tablet (six) Branch hours as needed (migraine headache). proCHLORper 2020-0 Yes [id number] 10mg Take 1 Univers azine 3-23 tablet by ity of (COMPAZINE) 00:00: mouth [place] 10 mg 00 every 6 Medical tablet (six) Branch hours as needed (migraine headache). proCHLORper 2020-0 Yes [id number] 10mg Take 1 Univers azine 3-23 tablet by ity of (COMPAZINE) 00:00: mouth [place] 10 mg 00 every 6 Medical tablet (six) Branch hours as needed (migraine headache). proCHLORper 2020-0 Yes [id number] 10mg Take 1 Univers azine 3-23 tablet by ity of (COMPAZINE) 00:00: mouth [place] 10 mg 00 every 6 Medical tablet (six) Branch hours as needed (migraine headache). proCHLORper 2020-0 Yes [id number] 10mg Take 1 Univers azine 3-23 tablet by ity of (COMPAZINE) 00:00: mouth [place] 10 mg 00 every 6 Medical tablet (six) Branch hours as needed (migraine headache). proCHLORper 2020-0 Yes [id number] 10mg Take 1 Univers azine 3-23 tablet by ity of (COMPAZINE) 00:00: mouth [place] 10 mg 00 every 6 Medical tablet (six) Branch hours as needed (migraine headache). proCHLORper 2020-0 Yes [id number] 10mg Take 1 Univers azine 3-23 tablet by ity of (COMPAZINE) 00:00: mouth [place] 10 mg 00 every 6 Medical tablet (six) Branch hours as needed (migraine headache). acetaminoph 2020-0 Yes [id number] 1{capsu Take 1 Univers en-caff-but 3-23 le} capsule by it y of albital 00:00: mouth [place] (ESGIC) per 00 every 6 Medic al capsule (six) Branch hours as needed (migraine headache). proCHLORper 2020-0 Yes [id number] 10mg Take 1 Univers azine 3-23 tablet by ity of (COMPAZINE) 00:00: mouth [place] 10 mg 00 every 6 Medical tablet (six) Branch hours as needed (migraine headache). acetaminoph 2020-0 Yes [id number] 1{capsu Take 1 Univers en-caff-but 3-23 le} capsule by it y of albital 00:00: mouth [place] (ESGIC) per 00 every 6 Medic al capsule (six) Branch hours as needed (migraine headache). proCHLORper 2020-0 Yes [id number] 10mg Take 1 Univers azine 3-23 tablet by ity of (COMPAZINE) 00:00: mouth [place] 10 mg 00 every 6 Medical tablet (six) Branch hours as needed (migraine headache). acetaminoph 2020-0 Yes [id number] 1{capsu Take 1 Univers en-caff-but 3-23 le} capsule by it y of albital 00:00: mouth [place] (ESGIC) per 00 every 6 Medic al capsule (six) Branch hours as needed (migraine headache). proCHLORper 2020-0 Yes [id number] 10mg Take 1 Univers azine 3-23 tablet by ity of (COMPAZINE) 00:00: mouth [place] 10 mg 00 every 6 Medical tablet (six) Branch hours as needed (migraine headache). acetaminoph 2020-0 Yes [id number] 1{capsu Take 1 Univers en-caff-but 3-23 le} capsule by it y of albital 00:00: mouth [place] (ESGIC) per 00 every 6 Medic al capsule (six) Branch hours as needed (migraine headache). proCHLORper 2020-0 Yes [id number] 10mg Take 1 Univers azine 3-23 tablet by ity of (COMPAZINE) 00:00: mouth [place] 10 mg 00 every 6 Medical tablet (six) Branch hours as needed (migraine headache). acetaminoph 2020-0 Yes [id number] 1{capsu Take 1 Univers en-caff-but 3-23 le} capsule by it y of albital 00:00: mouth [place] (ESGIC) per 00 every 6 Medic al capsule (six) Branch hours as needed (migraine headache). proCHLORper 2020-0 Yes [id number] 10mg Take 1 Univers azine 3-23 tablet by ity of (COMPAZINE) 00:00: mouth [place] 10 mg 00 every 6 Medical tablet (six) Branch hours as needed (migraine headache). acetaminoph 2020-0 Yes [id number] 1{capsu Take 1 Univers en-caff-but 3-23 le} capsule by it y of albital 00:00: mouth [place] (ESGIC) per 00 every 6 Medic al capsule (six) Branch hours as needed (migraine headache). proCHLORper 2020-0 Yes [id number] 10mg Take 1 Univers azine 3-23 tablet by ity of (COMPAZINE) 00:00: mouth [place] 10 mg 00 every 6 Medical tablet (six) Branch hours as needed (migraine headache). acetaminoph 2020-0 Yes [id number] 1{capsu Take 1 Univers en-caff-but 3-23 le} capsule by it y of albital 00:00: mouth [place] (ESGIC) per 00 every 6 Medic al capsule (six) Branch hours as needed (migraine headache). proCHLORper 2020-0 Yes [id number] 10mg Take 1 Univers azine 3-23 tablet by ity of (COMPAZINE) 00:00: mouth [place] 10 mg 00 every 6 Medical tablet (six) Branch hours as needed (migraine headache). acetaminoph 2020-0 Yes [id number] 1{capsu Take 1 Univers en-caff-but 3-23 le} capsule by it y of albital 00:00: mouth [place] (ESGIC) per 00 every 6 Medic al capsule (six) Branch hours as needed (migraine headache). proCHLORper 2020-0 Yes [id number] 10mg Take 1 Univers azine 3-23 tablet by ity of (COMPAZINE) 00:00: mouth [place] 10 mg 00 every 6 Medical tablet (six) Branch hours as needed (migraine headache). acetaminoph 2020-0 Yes [id number] 1{capsu Take 1 Univers en-caff-but 3-23 le} capsule by it y of albital 00:00: mouth [place] (ESGIC) per 00 every 6 Medic al capsule (six) Branch hours as needed (migraine headache). proCHLORper 2020-0 Yes [id number] 10mg Take 1 Univers azine 3-23 tablet by ity of (COMPAZINE) 00:00: mouth [place] 10 mg 00 every 6 Medical tablet (six) Branch hours as needed (migraine headache). acetaminoph 2020-0 Yes [id number] 1{capsu Take 1 Univers en-caff-but 3-23 le} capsule by it y of albital 00:00: mouth [place] (ESGIC) per 00 every 6 Medic al capsule (six) Branch hours as needed (migraine headache). proCHLORper 2020-0 Yes [id number] 10mg Take 1 Univers azine 3-23 tablet by ity of (COMPAZINE) 00:00: mouth [place] 10 mg 00 every 6 Medical tablet (six) Branch hours as needed (migraine headache). acetaminoph 2020-0 Yes [id number] 1{capsu Take 1 [facility] en-caff-but 3-23 le} capsule by it y of albital 00:00: mouth [place] (ESGIC) per 00 every 6 Medic al capsule (six) Branch hours as needed (migraine headache). proCHLORper 2020-0 Yes [id number] 10mg Take 1 [facility] azine 3-23 tablet by ity of (COMPAZINE) 00:00: mouth [place] 10 mg 00 every 6 Medical tablet (six) Branch hours as needed (migraine headache). acetaminoph 2020-0 Yes [id number] 1{capsu Take 1 [facility] en-caff-but 3-23 le} capsule by it y of albital 00:00: mouth [place] (ESGIC) per 00 every 6 Medic al capsule (six) Branch hours as needed (migraine headache). proCHLORper 2020-0 Yes [id number] 10mg Take 1 [facility] azine 3-23 tablet by ity of (COMPAZINE) 00:00: mouth [place] 10 mg 00 every 6 Medical tablet (six) Branch hours as needed (migraine headache). acetaminoph 2020-0 Yes [id number] 1{capsu Take 1 [facility] en-caff-but 3-23 le} capsule by it y of albital 00:00: mouth [place] (ESGIC) per 00 every 6 Medic al capsule (six) Branch hours as needed (migraine headache). proCHLORper 2020-0 Yes [id number] 10mg Take 1 [facility] azine 3-23 tablet by ity of (COMPAZINE) 00:00: mouth [place] 10 mg 00 every 6 Medical tablet (six) Branch hours as needed (migraine headache). acetaminoph 2020-0 Yes [id number] 1{capsu Take 1 [facility] en-caff-but 3-23 le} capsule by it y of albital 00:00: mouth [place] (ESGIC) per 00 every 6 Medic al capsule (six) Branch hours as needed (migraine headache). proCHLORper 2020-0 Yes [id number] 10mg Take 1 [facility] azine 3-23 tablet by ity of (COMPAZINE) 00:00: mouth [place] 10 mg 00 every 6 Medical tablet (six) Branch hours as needed (migraine headache). acetaminoph 2020-0 Yes [id number] 1{capsu Take 1 [facility] en-caff-but 3-23 le} capsule by it y of albital 00:00: mouth [place] (ESGIC) per 00 every 6 Medic al capsule (six) Branch hours as needed (migraine headache). proCHLORper 2020-0 Yes [id number] 10mg Take 1 [facility] azine 3-23 tablet by ity of (COMPAZINE) 00:00: mouth [place] 10 mg 00 every 6 Medical tablet (six) Branch hours as needed (migraine headache). acetaminoph 2020-0 Yes [id number] 1{capsu Take 1 [facility] en-caff-but 3-23 le} capsule by it y of albital 00:00: mouth [place] (ESGIC) per 00 every 6 Medic al capsule (six) Branch hours as needed (migraine headache). proCHLORper 2020-0 Yes [id number] 10mg Take 1 [facility] azine 3-23 tablet by ity of (COMPAZINE) 00:00: mouth [place] 10 mg 00 every 6 Medical tablet (six) Branch hours as needed (migraine headache). acetaminoph 2020-0 Yes [id number] 1{capsu Take 1 [facility] en-caff-but 3-23 le} capsule by it y of albital 00:00: mouth [place] (ESGIC) per 00 every 6 Medic al capsule (six) Branch hours as needed (migraine headache). proCHLORper 2020-0 Yes [id number] 10mg Take 1 [facility] azine 3-23 tablet by ity of (COMPAZINE) 00:00: mouth [place] 10 mg 00 every 6 Medical tablet (six) Branch hours as needed (migraine headache). acetaminoph 2020-0 Yes [id number] 1{capsu Take 1 [facility] en-caff-but 3-23 le} capsule by it y of albital 00:00: mouth [place] (ESGIC) per 00 every 6 Medic al capsule (six) Branch hours as needed (migraine headache). proCHLORper 2020-0 Yes [id number] 10mg Take 1 [facility] azine 3-23 tablet by ity of (COMPAZINE) 00:00: mouth [place] 10 mg 00 every 6 Medical tablet (six) Branch hours as needed (migraine headache). acetaminoph 2020-0 Yes [id number] 1{capsu Take 1 [facility] en-caff-but 3-23 le} capsule by it y of albital 00:00: mouth [place] (ESGIC) per 00 every 6 Medic al capsule (six) Branch hours as needed (migraine headache). proCHLORper 2020-0 Yes [id number] 10mg Take 1 [facility] azine 3-23 tablet by ity of (COMPAZINE) 00:00: mouth [place] 10 mg 00 every 6 Medical tablet (six) Branch hours as needed (migraine headache). acetaminoph 2020-0 Yes [id number] 1{capsu Take 1 [facility] en-caff-but 3-23 le} capsule by it y of albital 00:00: mouth [place] (ESGIC) per 00 every 6 Medic al capsule (six) Branch hours as needed (migraine headache). proCHLORper 2020-0 Yes [id number] 10mg Take 1 [facility] azine 3-23 tablet by ity of (COMPAZINE) 00:00: mouth [place] 10 mg 00 every 6 Medical tablet (six) Branch hours as needed (migraine headache). acetaminoph 2020-0 Yes [id number] 1{capsu Take 1 [facility] en-caff-but 3-23 le} capsule by it y of albital 00:00: mouth [place] (ESGIC) per 00 every 6 Medic al capsule (six) Branch hours as needed (migraine headache). proCHLORper 2020-0 Yes [id number] 10mg Take 1 [facility] azine 3-23 tablet by ity of (COMPAZINE) 00:00: mouth [place] 10 mg 00 every 6 Medical tablet (six) Branch hours as needed (migraine headache). acetaminoph 2020-0 Yes [id number] 1{capsu Take 1 [facility] en-caff-but 3-23 le} capsule by it y of albital 00:00: mouth [place] (ESGIC) per 00 every 6 Medic al capsule (six) Branch hours as needed (migraine headache). proCHLORper 2020-0 Yes [id number] 10mg Take 1 [facility] azine 3-23 tablet by ity of (COMPAZINE) 00:00: mouth [place] 10 mg 00 every 6 Medical tablet (six) Branch hours as needed (migraine headache). acetaminoph 2020-0 Yes [id number] 1{capsu Take 1 [facility] en-caff-but 3-23 le} capsule by it y of albital 00:00: mouth [place] (ESGIC) per 00 every 6 Medic al capsule (six) Branch hours as needed (migraine headache). proCHLORper 2020-0 Yes [id number] 10mg Take 1 [facility] azine 3-23 tablet by ity of (COMPAZINE) 00:00: mouth [place] 10 mg 00 every 6 Medical tablet (six) Branch hours as needed (migraine headache). acetaminoph 2020-0 Yes [id number] 1{capsu Take 1 [facility] en-caff-but 3-23 le} capsule by it y of albital 00:00: mouth [place] (ESGIC) per 00 every 6 Medic al capsule (six) Branch hours as needed (migraine headache). proCHLORper 2020-0 Yes [id number] 10mg Take 1 [facility] azine 3-23 tablet by ity of (COMPAZINE) 00:00: mouth [place] 10 mg 00 every 6 Medical tablet (six) Branch hours as needed (migraine headache). acetaminoph 2020-0 Yes [id number] 1{capsu Take 1 [facility] en-caff-but 3-23 le} capsule by it y of albital 00:00: mouth [place] (ESGIC) per 00 every 6 Medic al capsule (six) Branch hours as needed (migraine headache). proCHLORper 2020-0 Yes [id number] 10mg Take 1 [facility] azine 3-23 tablet by ity of (COMPAZINE) 00:00: mouth [place] 10 mg 00 every 6 Medical tablet (six) Branch hours as needed (migraine headache). acetaminoph 2020-0 Yes [id number] 1{capsu Take 1 [facility] en-caff-but 3-23 le} capsule by it y of albital 00:00: mouth [place] (ESGIC) per 00 every 6 Medic al capsule (six) Branch hours as needed (migraine headache). proCHLORper 2020-0 Yes [id number] 10mg Take 1 [facility] azine 3-23 tablet by ity of (COMPAZINE) 00:00: mouth [place] 10 mg 00 every 6 Medical tablet (six) Branch hours as needed (migraine headache). acetaminoph 2020-0 Yes [id number] 1{capsu Take 1 [facility] en-caff-but 3-23 le} capsule by it y of albital 00:00: mouth [place] (ESGIC) per 00 every 6 Medic al capsule (six) Branch hours as needed (migraine headache). proCHLORper 2020-0 Yes [id number] 10mg Take 1 [facility] azine 3-23 tablet by ity of (COMPAZINE) 00:00: mouth [place] 10 mg 00 every 6 Medical tablet (six) Branch hours as needed (migraine headache). acetaminoph 2020-0 Yes [id number] 1{capsu Take 1 [facility] en-caff-but 3-23 le} capsule by it y of albital 00:00: mouth [place] (ESGIC) per 00 every 6 Medic al capsule (six) Branch hours as needed (migraine headache). proCHLORper 2020-0 Yes [id number] 10mg Take 1 [facility] azine 3-23 tablet by ity of (COMPAZINE) 00:00: mouth [place] 10 mg 00 every 6 Medical tablet (six) Branch hours as needed (migraine headache). acetaminoph 2020-0 Yes [id number] 1{capsu Take 1 [facility] en-caff-but 3-23 le} capsule by it y of albital 00:00: mouth [place] (ESGIC) per 00 every 6 Medic al capsule (six) Branch hours as needed (migraine headache). proCHLORper 2020-0 Yes [id number] 10mg Take 1 [facility] azine 3-23 tablet by ity of (COMPAZINE) 00:00: mouth [place] 10 mg 00 every 6 Medical tablet (six) Branch hours as needed (migraine headache). acetaminoph 2020-0 Yes [id number] 1{capsu Take 1 [facility] en-caff-but 3-23 le} capsule by it y of albital 00:00: mouth [place] (ESGIC) per 00 every 6 Medic al capsule (six) Branch hours as needed (migraine headache). proCHLORper 2020-0 Yes [id number] 10mg Take 1 [facility] azine 3-23 tablet by ity of (COMPAZINE) 00:00: mouth [place] 10 mg 00 every 6 Medical tablet (six) Branch hours as needed (migraine headache). acetaminoph 2020-0 Yes [id number] 1{capsu Take 1 [facility] en-caff-but 3-23 le} capsule by it y of albital 00:00: mouth [place] (ESGIC) per 00 every 6 Medic al capsule (six) Branch hours as needed (migraine headache). proCHLORper 2020-0 Yes [id number] 10mg Take 1 [facility] azine 3-23 tablet by ity of (COMPAZINE) 00:00: mouth [place] 10 mg 00 every 6 Medical tablet (six) Branch hours as needed (migraine headache). acetaminoph 2020-0 Yes [id number] 1{capsu Take 1 [facility] en-caff-but 3-23 le} capsule by it y of albital 00:00: mouth [place] (ESGIC) per 00 every 6 Medic al capsule (six) Branch hours as needed (migraine headache). proCHLORper 2020-0 Yes [id number] 10mg Take 1 [facility] azine 3-23 tablet by ity of (COMPAZINE) 00:00: mouth [place] 10 mg 00 every 6 Medical tablet (six) Branch hours as needed (migraine headache). proCHLORper 2020-0 2020- No [id number] 10mg Take 1 [facility] azine 3-23 03-01 tablet by ity of (COMPAZINE) 00:00: 00:00 [place] 10 mg 00 :00 every 6 Medical tablet (six) Branch hours as needed (migraine headache). proCHLORper 2020-0 2020- No [id number] 10mg Take 1 [facility] azine 3-23 03-01 tablet by ity of (COMPAZINE) 00:00: 00:00 [facility] [place] 10 mg 00 :00 every 6 Medical tablet (six) Branch hours as needed (migraine headache). acetaminoph 2020-0 2020- No [id number] 1{capsu Take 1 [facility] en-caff-but 3-23 10-12 [...] Medical VITAMIN Branch ORAL) proMETHazin 2020-0 Yes [id number] 25mg Take 1 [facility] e 25 mg 2-27 tablet by ity of tablet 00:00: mouth [place] 00 every 4 Medical (four) Branch hours as needed for Nausea and Vomiting (N/V). proMETHazin 2020-0 Yes [id number] 25mg Take 1 [facility] e 25 mg 2-27 tablet by ity of tablet 00:00: mouth [place] 00 every 4 Medical (four) Branch hours as needed for Nausea and Vomiting (N/V). proMETHazin 2020-0 Yes [id number] 25mg Take 1 [facility] e 25 mg 2-27 tablet by ity of tablet 00:00: mouth [place] 00 every 4 Medical (four) Branch hours as needed for Nausea and Vomiting (N/V). proMETHazin 2020-0 Yes [id number] 25mg Take 1 [facility] e 25 mg 2-27 tablet by ity of tablet 00:00: mouth [place] 00 every 4 Medical (four) Branch hours as needed for Nausea and Vomiting (N/V). proMETHazin 2020-0 Yes [id number] 25mg Take 1 [facility] e 25 mg 2-27 tablet by ity of tablet 00:00: mouth [place] 00 every 4 Medical (four) Branch hours as needed for Nausea and Vomiting (N/V). proMETHazin 2020-0 Yes [id number] 25mg Take 1 [facility] e 25 mg 2-27 tablet by ity of tablet 00:00: mouth [place] 00 every 4 Medical (four) Branch hours as needed for Nausea and Vomiting (N/V). proMETHazin 2020-0 Yes [id number] 25mg Take 1 [facility] e 25 mg 2-27 tablet by ity of tablet 00:00: mouth [place] 00 every 4 Medical (four) Branch hours as needed for Nausea and Vomiting (N/V). proMETHazin 2020-0 Yes [id number] 25mg Take 1 [facility] e 25 mg 2-27 tablet by ity of tablet 00:00: mouth [place] 00 every 4 Medical (four) Branch hours as needed for Nausea and Vomiting (N/V). proMETHazin 2020-0 Yes [id number] 25mg Take 1 [facility] e 25 mg 2-27 tablet by ity of tablet 00:00: mouth [place] 00 every 4 Medical (four) Branch hours as needed for Nausea and Vomiting (N/V). proMETHazin 2020-0 Yes [id number] 25mg Take 1 [facility] e 25 mg 2-27 tablet by ity of tablet 00:00: mouth [place] 00 every 4 Medical (four) Branch hours as needed for Nausea and Vomiting (N/V). proMETHazin 2020-0 Yes [id number] 25mg Take 1 [facility] e 25 mg 2-27 tablet by ity of tablet 00:00: mouth [place] 00 every 4 Medical (four) Branch hours as needed for Nausea and Vomiting (N/V). proMETHazin 2020-0 Yes [id number] 25mg Take 1 [facility] e 25 mg 2-27 tablet by ity of tablet 00:00: mouth [place] 00 every 4 Medical (four) Branch hours as needed for Nausea and Vomiting (N/V). proMETHazin 2020-0 Yes [id number] 25mg Take 1 [facility] e 25 mg 2-27 tablet by ity of tablet 00:00: mouth [place] 00 every 4 Medical (four) Branch hours as needed for Nausea and Vomiting (N/V). proMETHazin 2020-0 Yes [id number] 25mg Take 1 [facility] e 25 mg 2-27 tablet by ity of tablet 00:00: mouth [place] 00 every 4 Medical (four) Branch hours as needed for Nausea and Vomiting (N/V). proMETHazin 2020-0 Yes [id number] 25mg Take 1 [facility] e 25 mg 2-27 tablet by ity of tablet 00:00: mouth [place] 00 every 4 Medical (four) Branch hours as needed for Nausea and Vomiting (N/V). proMETHazin 2020-0 Yes [id number] 25mg Take 1 [facility] e 25 mg 2-27 tablet by ity of tablet 00:00: mouth [place] 00 every 4 Medical (four) Branch hours as needed for Nausea and Vomiting (N/V). proMETHazin 2020-0 Yes [id number] 25mg Take 1 [facility] e 25 mg 2-27 tablet by ity of tablet 00:00: mouth [place] 00 every 4 Medical (four) Branch hours as needed for Nausea and Vomiting (N/V). proMETHazin 2020-0 Yes [id number] 25mg Take 1 [facility] e 25 mg 2-27 tablet by ity of tablet 00:00: mouth [place] 00 every 4 Medical (four) Branch hours as needed for Nausea and Vomiting (N/V). proMETHazin 2020-0 Yes [id number] 25mg Take 1 [facility] e 25 mg 2-27 tablet by ity of tablet 00:00: mouth [place] 00 every 4 Medical (four) Branch hours as needed for Nausea and Vomiting (N/V). proMETHazin 2020-0 Yes [id number] 25mg Take 1 [facility] e 25 mg 2-27 tablet by ity of tablet 00:00: mouth [place] 00 every 4 Medical (four) Branch hours as needed for Nausea and Vomiting (N/V). proMETHazin 2020-0 Yes [id number] 25mg Take 1 [facility] e 25 mg 2-27 tablet by ity of tablet 00:00: mouth [place] 00 every 4 Medical (four) Branch hours as needed for Nausea and Vomiting (N/V). proMETHazin 2020-0 Yes [id number] 25mg Take 1 [facility] e 25 mg 2-27 tablet by ity of tablet 00:00: mouth [place] 00 every 4 Medical (four) Branch hours as needed for Nausea and Vomiting (N/V). proMETHazin 2020-0 Yes [id number] 25mg Take 1 [facility] e 25 mg 2-27 tablet by ity of tablet 00:00: mouth [place] 00 every 4 Medical (four) Branch hours as needed for Nausea and Vomiting (N/V). proMETHazin 2020-0 Yes [id number] 25mg Take 1 [facility] e 25 mg 2-27 tablet by ity of tablet 00:00: mouth [place] 00 every 4 Medical (four) Branch hours as needed for Nausea and Vomiting (N/V). proMETHazin 2020-0 Yes [id number] 25mg Take 1 [facility] e 25 mg 2-27 tablet by ity of tablet 00:00: mouth [place] 00 every 4 Medical (four) Branch hours as needed for Nausea and Vomiting (N/V). proMETHazin 2020-0 Yes [id number] 25mg Take 1 [facility] e 25 mg 2-27 tablet by ity of tablet 00:00: mouth [place] 00 every 4 Medical (four) Branch hours as needed for Nausea and Vomiting (N/V). proMETHazin 2020-0 Yes [id number] 25mg Take 1 [facility] e 25 mg 2-27 tablet by ity of tablet 00:00: mouth [place] 00 every 4 Medical (four) Branch hours as needed for Nausea and Vomiting (N/V). proMETHazin 2020-0 Yes [id number] 25mg Take 1 [facility] e 25 mg 2-27 tablet by ity of tablet 00:00: mouth [place] 00 every 4 Medical (four) Branch hours as needed for Nausea and Vomiting (N/V). proMETHazin 2020-0 Yes [id number] 25mg Take 1 [facility] e 25 mg 2-27 tablet by ity of tablet 00:00: mouth [place] 00 every 4 Medical (four) Branch hours as needed for Nausea and Vomiting (N/V). proMETHazin 2020-0 Yes [id number] 25mg Take 1 [facility] e 25 mg 2-27 tablet by ity of tablet 00:00: mouth [place] 00 every 4 Medical (four) Branch hours as needed for Nausea and Vomiting (N/V). proMETHazin 2020-0 Yes [id number] 25mg Take 1 [facility] e 25 mg 2-27 tablet by ity of tablet 00:00: mouth [place] 00 every 4 Medical (four) Branch hours as needed for Nausea and Vomiting (N/V). proMETHazin 2020-0 Yes [id number] 25mg Take 1 [facility] e 25 mg 2-27 tablet by ity of tablet 00:00: mouth [place] 00 every 4 Medical (four) Branch hours as needed for Nausea and Vomiting (N/V). proMETHazin 2020-0 Yes [id number] 25mg Take 1 [facility] e 25 mg 2-27 tablet by ity of tablet 00:00: mouth [place] 00 every 4 Medical (four) Branch hours as needed for Nausea and Vomiting (N/V). proMETHazin 2020-0 Yes [id number] 25mg Take 1 [facility] e 25 mg 2-27 tablet by ity of tablet 00:00: mouth [place] 00 every 4 Medical (four) Branch hours as needed for Nausea and Vomiting (N/V). proMETHazin 2020-0 Yes [id number] 25mg Take 1 [facility] e 25 mg 2-27 tablet by ity of tablet 00:00: mouth [place] 00 every 4 Medical (four) Branch hours as needed for Nausea and Vomiting (N/V). proMETHazin 2020-0 Yes [id number] 25mg Take 1 [facility] e 25 mg 2-27 tablet by ity of tablet 00:00: mouth [place] 00 every 4 Medical (four) Branch hours as needed for Nausea and Vomiting (N/V). proMETHazin 2020-0 Yes [id number] 25mg Take 1 [facility] e 25 mg 2-27 tablet by ity of tablet 00:00: mouth [place] 00 every 4 Medical (four) Branch hours as needed for Nausea and Vomiting (N/V). proMETHazin 2020-0 Yes [id number] 25mg Take 1 [facility] e 25 mg 2-27 tablet by ity of tablet 00:00: mouth [place] 00 every 4 Medical (four) Branch hours as needed for Nausea and Vomiting (N/V). proMETHazin 2020-0 Yes [id number] 25mg Take 1 [facility] e 25 mg 2-27 tablet by ity of tablet 00:00: mouth [place] 00 every 4 Medical (four) Branch hours as needed for Nausea and Vomiting (N/V). proMETHazin 2020-0 Yes [id number] 25mg Take 1 [facility] e 25 mg 2-27 tablet by ity of tablet 00:00: mouth [place] 00 every 4 Medical (four) Branch hours as needed for Nausea and Vomiting (N/V). proMETHazin 2020-0 Yes [id number] 25mg Take 1 [facility] e 25 mg 2-27 tablet by ity of tablet 00:00: mouth [place] 00 every 4 Medical (four) Branch hours as needed for Nausea and Vomiting (N/V). proMETHazin 2020-0 Yes [id number] 25mg Take 1 [facility] e 25 mg 2-27 tablet by ity of tablet 00:00: mouth [place] 00 every 4 Medical (four) Branch hours as needed for Nausea and Vomiting (N/V). proMETHazin 2020-0 Yes [id number] 25mg Take 1 [facility] e 25 mg 2-27 tablet by ity of tablet 00:00: mouth [place] 00 every 4 Medical (four) Branch hours as needed for Nausea and Vomiting (N/V). proMETHazin 2019- Yes [id number] 25mg Take 1 [facility] e 25 mg 2-27 tablet by ity of tablet 00:00: mouth [place] 00 every 4 Medical (four) Branch hours as needed for Nausea and Vomiting (N/V). proMETHazin 2020- No [id number] 25mg Take 1 [facility] e 25 mg 2-27 03-01 tablet by ity of tablet 00:00: 00:00 mouth [place] 00 :00 every 4 Medical (four) Branch hours as needed for Nausea and Vomiting (N/V). proMETHazin 2020- No [id number] 25mg Take 1 [facility] e 25 mg 2-27 03-01 tablet by ity of tablet 00:00: 00:00 mouth [place] 00 :00 every 4 Medical (four) Branch hours as needed for Nausea and Vomiting (N/V). cefTRIAXone 2019- No 1000mg 1,000 mg, Univers (ROCEPHIN) 09-16 IV ity of 1,000 mg in 14:30: 14:05 [facility], [place] NaCl 0.9% 00 :00 ONCE, 1 Medical (NS) 50 mL dose, [facility] MINI-BAG 09/16/19 at 0830, 50 mL
Reas on for Anti-Infec tive: Empiric Therapy for Suspected Infection< br>Empiric Therapy Site: Urine
D uration of therapy: 72 hours cephALEXin 2019- No [id number] 500mg Take 1 [facility] (KEFLEX) 09-16 [id number] capsule by it y of 500 mg 00:00: 05:59 mouth 3 [place] capsule 00 :00 (three) Medical times Branch daily for 7 days. cephALEXin 2019- No [id number] 500mg Take 1 [facility] (KEFLEX) 09-16 [id number] capsule by it y of 500 mg 00:00: 05:59 mouth 3 [place] capsule 00 :00 (three) Medical times Branch daily for 7 days. cephALEXin 2019- No [id number] 500mg Take 1 [facility] (KEFLEX) 09-16 [id number] capsule by it y of 500 mg 00:00: 05:59 mouth 3 [place] capsule 00 :00 (three) Medical times Branch daily for 7 days. proMETHazin 2020-0 Yes [id number] 25mg Take 1 [facility] e 25 mg 1-10 tablet by ity of tablet 00:00: mouth [place] 00 every 6 Medical (six) Branch hours as needed for Nausea and Vomiting (N/V). proMETHazin 2020-0 Yes [id number] 25mg Take 1 [facility] e 25 mg 1-10 tablet by ity of tablet 00:00: mouth [place] 00 every 6 Medical (six) Branch hours as needed for Nausea and Vomiting (N/V). proMETHazin 2020-0 Yes [id number] 25mg Take 1 [facility] e 25 mg 1-10 tablet by ity of tablet 00:00: mouth [place] 00 every 6 Medical (six) Branch hours as needed for Nausea and Vomiting (N/V). proMETHazin 2020-0 Yes [id number] 25mg Take 1 [facility] e 25 mg 1-10 tablet by ity of tablet 00:00: mouth [place] 00 every 6 Medical (six) Branch hours as needed for Nausea and Vomiting (N/V). proMETHazin 2020-0 Yes [id number] 25mg Take 1 [facility] e 25 mg 1-10 tablet by ity of tablet 00:00: mouth [place] 00 every 6 Medical (six) Branch hours as needed for Nausea and Vomiting (N/V). proMETHazin 2020-0 Yes [id number] 25mg Take 1 [facility] e 25 mg 1-10 tablet by ity of tablet 00:00: mouth [place] 00 every 6 Medical (six) Branch hours as needed for Nausea and Vomiting (N/V). proMETHazin 2020-0 Yes [id number] 25mg Take 1 [facility] e 25 mg 1-10 tablet by ity of tablet 00:00: mouth [place] 00 every 6 Medical (six) Branch hours as needed for Nausea and Vomiting (N/V). proMETHazin 2020-0 Yes [id number] 25mg Take 1 [facility] e 25 mg 1-10 tablet by ity of tablet 00:00: mouth [place] 00 every 6 Medical (six) Branch hours as needed for Nausea and Vomiting (N/V). proMETHazin 2020-0 Yes [id number] 25mg Take 1 [facility] e 25 mg 1-10 tablet by ity of tablet 00:00: mouth [place] 00 every 6 Medical (six) Branch hours as needed for Nausea and Vomiting (N/V). proMETHazin 2020-0 Yes [id number] 25mg Take 1 [facility] e 25 mg 1-10 tablet by ity of tablet 00:00: mouth [place] 00 every 6 Medical (six) Branch hours as needed for Nausea and Vomiting (N/V). proMETHazin 2020-0 Yes [id number] 25mg Take 1 [facility] e 25 mg 1-10 tablet by ity of tablet 00:00: mouth [place] 00 every 6 Medical (six) Branch hours as needed for Nausea and Vomiting (N/V). proMETHazin 2020-0 Yes [id number] 25mg Take 1 [facility] e 25 mg 1-10 tablet by ity of tablet 00:00: mouth [place] 00 every 6 Medical (six) Branch hours as needed for Nausea and Vomiting (N/V). proMETHazin 2020-0 Yes [id number] 25mg Take 1 [facility] e 25 mg 1-10 tablet by ity of tablet 00:00: mouth [place] 00 every 6 Medical (six) Branch hours as needed for Nausea and Vomiting (N/V). proMETHazin 2020-0 Yes [id number] 25mg Take 1 [facility] e 25 mg 1-10 tablet by ity of tablet 00:00: mouth [place] 00 every 6 Medical (six) Branch hours as needed for Nausea and Vomiting (N/V). proMETHazin 2020-0 2020- No [id number] 25mg Take 1 Univers e 25 mg 1-10 02-27 tablet by ity of tablet 00:00: 00:00 mouth [place] 00 :00 every 6 Medical (six) Branch hours as needed for Nausea and Vomiting (N/V). proMETHazin 2020-0 2020- No [id number] 25mg Take 1 Univers e 25 mg 1-10 02-27 tablet by ity of tablet 00:00: 00:00 mouth [place] 00 :00 every 6 Medical (six) Branch hours as needed for Nausea and Vomiting (N/V). azithromyci 2020-0 2020- No [id number] 1000mg Take 2 [facility] n 500 mg 1-10 01-11 tablets by ity of tablet 00:00: 05:59 mouth [place] 00 :00 now for 1 Medical dose. Branch multivit-mi 2020-0 Yes Take by Uni vers n/ferrous 1-09 mouth. ity of fumarate 20:39: [place] (MULTI 35 Medical VITAMIN Branch ORAL) multivit-mi 2020-0 Yes Take by Uni vers n/ferrous 1-09 mouth. ity of fumarate 20:39: [place] (MULTI 35 Medical VITAMIN Branch ORAL) multivit-mi 2020-0 Yes Take by Uni vers n/ferrous 1-09 mouth. ity of fumarate 20:39: [place] (MULTI 35 Medical VITAMIN Branch ORAL) multivit-mi 2020-0 Yes Take by Uni vers n/ferrous 1-09 mouth. ity of fumarate 20:39: [place] (MULTI 35 Medical VITAMIN Branch ORAL) multivit-mi 2020-0 Yes Take by Uni vers n/ferrous 1-09 mouth. ity of fumarate 20:39: [place] (MULTI 35 Medical VITAMIN Branch ORAL) multivit-mi 2020-0 Yes Take by Uni vers n/ferrous 1-09 mouth. ity of fumarate 20:39: [place] (MULTI 35 Medical VITAMIN Branch ORAL) multivit-mi 2020-0 Yes Take by Uni vers n/ferrous 1-09 mouth. ity of fumarate 20:39: [place] (MULTI 35 Medical VITAMIN Branch ORAL) multivit-mi 2020-0 Yes Take by Uni vers n/ferrous 1-09 mouth. ity of fumarate 20:39: [place] (MULTI 35 Medical VITAMIN Branch ORAL) multivit-mi 2020-0 Yes Take by Uni vers n/ferrous 1-09 mouth. ity of fumarate 20:39: [place] (MULTI 35 Medical VITAMIN Branch ORAL) multivit-mi 2020-0 Yes Take by Uni vers n/ferrous 1-09 mouth. ity of fumarate 20:39: [place] (MULTI 35 Medical VITAMIN Branch ORAL) multivit-mi 2020-0 Yes Take by Uni vers n/ferrous 1-09 mouth. ity of fumarate 20:39: [place] (MULTI 35 Medical VITAMIN Branch ORAL) multivit-mi 2020-0 Yes Take by Uni vers n/ferrous 1-09 mouth. ity of fumarate 20:39: [place] (MULTI 35 Medical VITAMIN Branch ORAL) multivit-mi 2020-0 Yes Take by Uni vers n/ferrous 1-09 mouth. ity of fumarate 20:39: [place] (MULTI 35 Medical VITAMIN Branch ORAL) multivit-mi 2020-0 Yes Take by Uni vers n/ferrous 1-09 mouth. ity of fumarate 20:39: [place] (MULTI 35 Medical VITAMIN Branch ORAL) multivit-mi 2020-0 Yes Take by Uni vers n/ferrous 1-09 mouth. ity of fumarate 20:39: [place] (MULTI 35 Medical VITAMIN Branch ORAL) ibuprofen [...] (Pain). Take with food or milk. riboflavin, Yes 400mg QD Take [address] vitamin B2, 5-19 mg [facility] mg Tab 00:00: mouth Medica l 00 daily. [place] SUMAtriptan Yes 50mg Take [address] [facility] (IMITREX) 5-19 tablet (50 [facility] 50 MG 00:00: mg total) Medical tablet 00 by mouth Center every 2 (two) hours as needed (migraine) Do not exceed 200mg in 24 hours.. riboflavin, Yes 400mg QD Take [address] vitamin B2, 5-19 mg [facility] mg Tab 00:00: mouth Medica l 00 daily. [place] SUMAtriptan Yes 50mg Take [address] [facility] (IMITREX) 5-19 tablet (50 [facility] 50 MG 00:00: mg total) Medical tablet 00 by mouth Center every 2 (two) hours as needed (migraine) Do not exceed 200mg in 24 hours.. riboflavin, Yes 400mg QD Take [address] vitamin B2, 5-19 mg [facility] mg Tab 00:00: mouth Medica l 00 daily. [place] SUMAtriptan Yes 50mg Take [address] [facility] [...] ans 00 No known No [facility] ity [facility] No [facility] No Univers medications ity [facility] No [facility] known No [facility] medications [facility] Immunizations Ordered Filled Immunization Date Status Comments Sour e Immunization Name Name Rho(D) Immune 2020-02-18 [facility] - [facility] 16:03:00 Tdap 2020-02-18 [facility] 00:00:00 Influenza Virus 2019-11-16 Completed [facility]ine [facility] .5 mL 00:00:00 [place] [facility] IM 6+ [facility] Influenza Virus 2019-11-16 Completed [facility] .5 mL 00:00:00 [place] [facility] IM 6+ [facility] Influenza Virus 2019-11-16 Completed [facility] .5 mL 00:00:00 [place] [facility] IM 6+ [facility] Influenza Virus 2019-11-16 Completed [facility] .5 mL 00:00:00 [place] [facility] IM 6+ [facility] Influenza Virus 2019-11-16 Completed [facility] .5 mL 00:00:00 [place] [facility] 6+ [facility] Influenza Virus [...] y of Vaccine Quad .5 mL 00:00:00 [place] [facility]+ [facility] Influenza Virus 2019-11-16 Completed [facility] .5 mL 00:00:00 [place] [facility] IM 6+ [facility] TDAP 2017-07-15 Completed [facility] of 00:00:00 [facility] [place] Rho (d) Immune 2017-07-15 Completed University of Globulin 00:00:00 [facility] [place] TDAP 2017-07-15 Completed University of 00:00:00 [facility] [place] Rho (d) Immune 2017-07-15 Completed [facility] of Globulin 00:00:00 [facility] [place] TDAP 2017-07-15 Completed University of 00:00:00 [facility] [place] Rho (d) Immune 2017-07-15 Completed [facility] of Globulin 00:00:00 [facility] [place] TDAP 2017-07-15 Completed University of 00:00:00 [facility] [place] Rho (d) Immune 2017-07-15 Completed [facility] of Globulin 00:00:00 [facility] [place] TDAP 2017-07-15 Completed University of 00:00:00 [facility] [place] Rho (d) Immune 2017-07-15 Completed [facility] of Globulin 00:00:00 [facility] [place] TDAP 2017-07-15 Completed University of 00:00:00 [facility] [place] Rho (d) Immune 2017-07-15 Completed [facility] of Globulin 00:00:00 [facility] [place] TDAP 2017-07-15 Completed University of 00:00:00 [facility] [place] Rho (d) Immune 2017-07-15 Completed [facility] of Globulin 00:00:00 [facility] [place] TDAP 2017-07-15 Completed University of 00:00:00 [facility] [place] Rho (d) Immune 2017-07-15 Completed [facility] of Globulin 00:00:00 [facility] [place] TDAP 2017-07-15 Completed University of 00:00:00 [facility] [place] Rho (d) Immune 2017-07-15 Completed University of Globulin 00:00:00 [facility] [place] TDAP 2017-07-15 Completed University of 00:00:00 [facility] [place] Rho (d) Immune 2017-07-15 Completed [facility] of Globulin 00:00:00 [facility] [place] TDAP 2017-07-15 Completed University of 00:00:00 [facility] [place] Rho (d) Immune 2017-07-15 Completed [facility] of Globulin 00:00:00 [facility] [place] TDAP 2017-07-15 Completed University of 00:00:00 [facility] [place] Rho (d) Immune 2017-07-15 Completed [facility] of Globulin 00:00:00 [facility] [place] TDAP 2017-07-15 Completed University of 00:00:00 [facility] [place] Rho (d) Immune 2017-07-15 Completed [facility] of Globulin 00:00:00 [facility] [place] TDAP 2017-07-15 Completed University of 00:00:00 [facility] [place] Rho (d) Immune 2017-07-15 Completed University of Globulin 00:00:00 [facility] [place] TDAP 2017-07-15 Completed University of 00:00:00 [facility] [place] Rho (d) Immune 2017-07-15 Completed [facility] of Globulin 00:00:00 [facility] [place] TDAP 2017-07-15 Completed University of 00:00:00 [facility] [place] Rho (d) Immune 2017-07-15 Completed University of Globulin 00:00:00 [facility] [place] TDAP 2017-07-15 Completed University of 00:00:00 [facility] [place] Rho (d) Immune 2017-07-15 Completed [facility] of Globulin 00:00:00 [facility] [place] TDAP 2017-07-15 Completed University of 00:00:00 [facility] [place] Rho (d) Immune 2017-07-15 Completed University of Globulin 00:00:00 [facility] [place] TDAP 2017-07-15 Completed University of 00:00:00 [facility] [place] Rho (d) Immune 2017-07-15 Completed University of Globulin 00:00:00 [facility] [place] TDAP 2017-07-15 Completed University of 00:00:00 [facility] Rho (d) Immune 2017-07-15 Completed University of Globulin 00:00:00 [facility] [place] TDAP 2017-07-15 Completed University of 00:00:00 [facility] Rho (d) Immune 2017-07-15 Completed University of Globulin 00:00:00 [facility] [place] TDAP 2017-07-15 Completed University of 00:00:00 [facility] [place] Rho (d) Immune 2017-07-15 Completed University of Globulin 00:00:00 [facility] [place] TDAP 2017-07-15 Completed University of 00:00:00 [facility] [place] Rho (d) Immune 2017-07-15 Completed University of Globulin 00:00:00 [facility] [place] Tdap 2017-07-15 Completed University of 00:00:00 [facility] [place] Rho (d) Immune 2017-07-15 Completed University of Globulin 00:00:00 [facility] [place] TDAP 2017-07-15 Completed University of 00:00:00 [facility] [place] Rho (d) Immune 2017-07-15 Completed University of Globulin 00:00:00 [facility] [place] TDAP 2017-07-15 Completed University of 00:00:00 [facility] [place] Rho (d) Immune 2017-07-15 Completed University of Globulin 00:00:00 [facility] [place] TDAP 2017-07-15 Completed University of 00:00:00 [facility] [place] Rho (d) Immune 2017-07-15 Completed [facility] of Globulin 00:00:00 [facility] [place] TDAP 2017-07-15 Completed University of 00:00:00 [facility] [place] Rho (d) Immune 2017-07-15 Completed [facility] of Globulin 00:00:00 [facility] [place] TDAP 2017-07-15 Completed University of 00:00:00 [facility] [place] Rho (d) Immune 2017-07-15 Completed [facility] of Globulin 00:00:00 [facility] [place] TDAP 2017-07-15 Completed University of 00:00:00 [facility] [place] Rho (d) Immune 2017-07-15 Completed [facility] of Globulin 00:00:00 [facility] [place] TDAP 2017-07-15 Completed University of 00:00:00 [facility] [place] Rho (d) Immune 2017-07-15 Completed [facility] of Globulin 00:00:00 [facility] [place] TDAP 2017-07-15 Completed University of 00:00:00 [facility] Rho (d) Immune 2017-07-15 Completed University of Globulin 00:00:00 [facility] [place] Tdap 2017-07-15 Completed University of 00:00:00 [facility] [place] TDAP 2017-07-15 Completed University of 00:00:00 [facility] Rho (d) Immune 2017-07-15 Completed University of Globulin 00:00:00 [facility] [place] Rho (d) Immune 2017-07-15 Completed [facility] of Globulin 00:00:00 [facility] [place] Tdap 2017-07-15 Completed University of 00:00:00 [facility] Rho (d) Immune 2017-07-15 Completed [facility] of Globulin 00:00:00 [facility] [place] Tdap 2017-07-15 Completed University of 00:00:00 [facility] Rho (d) Immune 2017-07-15 Completed University of Globulin 00:00:00 [facility] Tdap 2017-07-15 Completed University of 00:00:00 [facility] [place] Rho (d) Immune 2017-07-15 Completed University of Globulin 00:00:00 [facility] [place] Tdap 2017-07-15 Completed University of 00:00:00 [facility] [place] Rho (d) Immune 2017-07-15 Completed [facility] of Globulin 00:00:00 [facility] [place] Tdap 2017-07-15 Completed University of 00:00:00 [facility] [place] Rho (d) Immune 2017-07-15 Completed [facility] of Globulin 00:00:00 [facility] [place] Tdap 2017-07-15 Completed University of 00:00:00 [facility] [place] Rho (d) Immune 2017-07-15 Completed [facility] of Globulin 00:00:00 [facility] [place] Tdap 2017-07-15 Completed University of 00:00:00 [facility] [place] Rho (d) Immune 2017-07-15 Completed University of Globulin 00:00:00 [facility] [place] Tdap 2017-07-15 Completed University of 00:00:00 [facility] [place] Rho (d) Immune 2017-07-15 Completed [facility] of Globulin 00:00:00 [facility] [place] Tdap 2017-07-15 Completed University of 00:00:00 [facility] [place] Rho (d) Immune 2017-07-15 Completed [facility] of Globulin 00:00:00 [facility] [place] Tdap 2017-07-15 Completed University of 00:00:00 [facility] [place] Rho (d) Immune 2017-07-15 Completed [facility] of Globulin 00:00:00 [facility] [place] Tdap 2017-07-15 Completed University of 00:00:00 [facility] Rho (d) Immune 2017-07-15 Completed University of Globulin 00:00:00 [facility] [place] Tdap 2017-07-15 Completed University of 00:00:00 [facility] Rho (d) Immune 2017-07-15 Completed [facility] of Globulin 00:00:00 [facility] [place] Tdap 2017-07-15 Completed University of 00:00:00 [facility] [place] Rho (d) Immune 2017-07-15 Completed [facility] of Globulin 00:00:00 [facility] [place] Tdap 2017-07-15 Completed University of 00:00:00 [facility] Rho (d) Immune 2017-07-15 Completed [facility] of Globulin 00:00:00 [facility] [place] Tdap 2017-07-15 Completed University of 00:00:00 [facility] [place] Rho (d) Immune 2017-07-15 Completed [facility] of Globulin 00:00:00 [facility] [place] Tdap 2017-07-15 Completed University of 00:00:00 [facility] [place] Rho (d) Immune 2017-07-15 Completed [facility] of Globulin 00:00:00 [facility] [place] Tdap 2017-07-15 Completed University of 00:00:00 [facility] [place] Rho (d) Immune 2017-07-15 Completed [facility] of Globulin 00:00:00 [facility] [place] Tdap 2017-07-15 Completed University of 00:00:00 [facility] [place] Rho (d) Immune 2017-07-15 Completed [facility] of Globulin 00:00:00 [facility] [place] Tdap 2017-07-15 Completed University of 00:00:00 [facility] [place] Rho (d) Immune 2017-07-15 Completed [facility] of Globulin 00:00:00 [facility] [place] Tdap 2017-07-15 Completed University of 00:00:00 [facility] [place] Rho (d) Immune 2017-07-15 Completed [facility] of Globulin 00:00:00 [facility] [place] Tdap 2017-07-15 Completed University of 00:00:00 [facility] [place] Rho (d) Immune 2017-07-15 Completed [facility] of Globulin 00:00:00 [facility] [place] Tdap 2017-07-15 Completed University of 00:00:00 [facility] [place] Rho (d) Immune 2017-07-15 Completed [facility] of Globulin 00:00:00 [facility] [place] Tdap 2017-07-15 Completed University of 00:00:00 [facility] [place] Rho (d) Immune 2017-07-15 Completed [facility] of Globulin 00:00:00 [facility] [place] Tdap 2017-07-15 Completed University of 00:00:00 [facility] Rho (d) Immune 2017-07-15 Completed University of Globulin 00:00:00 [facility] Tdap 2017-07-15 Completed University of 00:00:00 [facility] [place] Rho (d) Immune 2017-07-15 Completed University of Globulin 00:00:00 [facility] [place] Tdap 2017-07-15 Completed University of 00:00:00 [facility] [place] Rho (d) Immune 2017-07-15 Completed [facility] of Globulin 00:00:00 [facility] [place] Tdap 2017-07-15 Completed University of 00:00:00 [facility] [place] Rho (d) Immune 2017-07-15 Completed [facility] of Globulin 00:00:00 [facility] [place] Tdap 2017-07-15 Completed University of 00:00:00 [facility] [place] Rho (d) Immune 2017-07-15 Completed [facility] of Globulin 00:00:00 [facility] [place] Tdap 2017-07-15 Completed University of 00:00:00 [facility] [place] Rho (d) Immune 2017-07-15 Completed [facility] of Globulin 00:00:00 [facility] [place] Tdap 2017-07-15 Completed University of 00:00:00 [facility] [place] Rho (d) Immune 2017-07-15 Completed [facility] of Globulin 00:00:00 [facility] [place] Tdap 2017-07-15 Completed University of 00:00:00 [facility] [place] Rho (d) Immune 2017-07-15 Completed [facility] of Globulin 00:00:00 [facility] [place] Tdap 2017-07-15 Completed University of 00:00:00 [facility] [place] Rho (d) Immune 2017-07-15 Completed [facility] of Globulin 00:00:00 [facility] [place] Tdap 2017-07-15 Completed University of 00:00:00 [facility] [place] Rho (d) Immune 2017-07-15 Completed [facility] of Globulin 00:00:00 [facility] [place] Tdap 2017-07-15 Completed University of 00:00:00 [facility] [place] Rho (d) Immune 2017-07-15 Completed [facility] Globulin 00:00:00 [facility] [place] Tdap 2017-07-15 Completed University of 00:00:00 [facility] [place] Rho (d) Immune 2017-07-15 Completed [facility] of Globulin 00:00:00 [facility] [place] Tdap 2017-07-15 Completed University of 00:00:00 [facility] Rho (d) Immune 2017-07-15 Completed [facility] of Globulin 00:00:00 [facility] [place] Tdap 2017-07-15 Completed University of 00:00:00 [facility] Rho (d) Immune 2017-07-15 Completed [facility] of Globulin 00:00:00 [facility] [place] Tdap 2017-07-15 Completed University of 00:00:00 [facility] Rho (d) Immune 2017-07-15 Completed [facility] of Globulin 00:00:00 [facility] Tdap 2017-07-15 Completed University of 00:00:00 [facility] Rho (d) Immune 2017-07-15 Completed [facility] of Globulin 00:00:00 [facility] Tdap 2017-07-15 Completed University of 00:00:00 [facility] Rho (d) Immune 2017-07-15 Completed [facility] of Globulin 00:00:00 [facility] Tdap 2017-07-15 Completed University of 00:00:00 [facility] Rho (d) Immune 2017-07-15 Completed [facility] of Globulin 00:00:00 [facility] [place] TDAP 2017-07-15 Completed University of 00:00:00 [facility] [place] Rho (d) Immune 2017-07-15 Completed [facility] of Globulin 00:00:00 [facility] [place] TDAP 2017-07-15 Completed University of 00:00:00 [facility] [place] Rho (d) Immune 2017-07-15 Completed [facility] of Globulin 00:00:00 [facility] [place] TDAP 2017-07-15 Completed University of 00:00:00 [facility] [place] Rho (d) Immune 2017-07-15 Completed [facility] of Globulin 00:00:00 [facility] TDAP 2017-07-15 Completed [facility] of 00:00:00 [facility] Rho (d) Immune 2017-07-15 Completed [facility] of Globulin 00:00:00 [facility] TDAP 2017-07-15 Completed [facility] of 00:00:00 [facility] Rho (d) Immune 2017-07-15 Completed [facility] of Globulin 00:00:00 [facility] TDAP 2017-07-15 Completed [facility] of 00:00:00 [facility] Rho (d) Immune 2017-07-15 Completed [facility] of Globulin 00:00:00 [facility] TDAP 2017-07-15 Completed [facility] of 00:00:00 [facility] Rho (d) Immune 2017-07-15 Completed [facility] of Globulin 00:00:00 [facility] TDAP 2017-07-15 Completed [facility] of 00:00:00 [facility] Rho (d) Immune 2017-07-15 Completed [facility] Globulin 00:00:00 [facility] [place] Tdap (Adacel) 2015-09-22 [facility] Influenza Virus 2015-05-25 Completed [facility] Vaccine [facility] IM 3+ 00:00:00 [facility] Influenza Virus 2015-05-25 Completed [facility]it y of Vaccine Quad IM 3+ 00:00:00 [facility] Influenza Virus 2015-05-25 Completed [facility]it y of Vaccine Quad IM 3+ 00:00:00 [facility] Influenza Virus 2015-05-25 Completed [facility]it y of Vaccine Quad IM 3+ 00:00:00 [facility] Influenza Virus 2015-05-25 Completed [facility]it y of Vaccine Quad IM 3+ 00:00:00 [facility] Influenza Virus 2015-05-25 Completed [facility]it y of Vaccine Quad IM 3+ 00:00:00 [facility] Influenza Virus 2015-05-25 Completed [facility]it y of Vaccine Quad IM 3+ 00:00:00 [facility] Influenza Virus 2015-05-25 Completed [facility]it y of Vaccine Quad IM 3+ 00:00:00 [facility] Influenza Virus 2015-05-25 Completed [facility]it y of Vaccine Quad IM 3+ 00:00:00 [facility] Influenza Virus 2015-05-25 Completed [facility]it y of Vaccine Quad IM 3+ 00:00:00 [facility] Influenza Virus 2015-05-25 Completed [facility]it y of Vaccine Quad IM 3+ 00:00:00 [facility] Influenza Virus 2015-05-25 Completed [facility]it y of Vaccine Quad IM 3+ 00:00:00 [facility] Influenza Virus 2015-05-25 Completed [facility]it y of Vaccine Quad IM 3+ 00:00:00 [facility] Influenza Virus 2015-05-25 Completed [facility]it y of Vaccine Quad IM 3+ 00:00:00 [facility] Influenza Virus 2015-05-25 Completed [facility]it y of Vaccine Quad IM 3+ 00:00:00 [facility] Influenza Virus 2015-05-25 Completed [facility]it y of Vaccine Quad IM 3+ 00:00:00 [facility] Influenza Virus 2015-05-25 Completed [facility]it y of Vaccine Quad IM 3+ 00:00:00 [facility] Influenza Virus 2015-05-25 Completed [facility]it y of Vaccine Quad IM 3+ 00:00:00 [facility] Influenza Virus 2015-05-25 Completed [facility] y of Vaccine Quad IM 3+ 00:00:00 [facility] Influenza Virus 2015-05-25 Completed [facility] y of Vaccine Quad IM 3+ 00:00:00 [facility] Influenza Virus 2015-05-25 Completed [facility] y of Vaccine Quad IM 3+ 00:00:00 [facility] Influenza Virus 2015-05-25 Completed [facility] y of Vaccine Quad IM 3+ 00:00:00 [facility] Influenza Virus 2015-05-25 Completed [facility] y of Vaccine Quad IM 3+ 00:00:00 [facility] Influenza Virus 2015-05-25 Completed [facility] y of Vaccine Quad IM 3+ 00:00:00 [facility] Influenza Virus 2015-05-25 Completed [facility] y of Vaccine Quad IM 3+ 00:00:00 [facility] Influenza Virus 2015-05-25 Completed [facility] y of Vaccine Quad IM 3+ 00:00:00 [facility] Influenza Virus 2015-05-25 Completed [facility] of Vaccine Quad IM 3+ 00:00:00 [facility] Influenza Virus 2015-05-25 Completed [facility] y of Vaccine Quad IM 3+ 00:00:00 [facility] Influenza Virus 2015-05-25 Completed [facility] y of Vaccine Quad IM 3+ 00:00:00 [facility] Influenza Virus 2015-05-25 Completed [facility] y of Vaccine Quad IM 3+ 00:00:00 [facility] Influenza Virus 2015-05-25 Completed [facility] y of Vaccine Quad IM 3+ 00:00:00 [facility] Influenza Virus 2015-05-25 Completed [facility] y of Vaccine Quad IM 3+ 00:00:00 [facility] Influenza Virus 2015-05-25 Completed [facility] y of Vaccine Quad IM 3+ 00:00:00 [facility] Influenza Virus 2015-05-25 Completed [facility]it y of Vaccine Quad IM 3+ 00:00:00 [facility] Influenza Virus 2015-05-25 Completed [facility] y of Vaccine Quad IM 3+ 00:00:00 [facility] Influenza Virus 2015-05-25 Completed [facility] y of Vaccine Quad IM 3+ 00:00:00 [facility] Influenza Virus 2015-05-25 Completed [facility] y of Vaccine Quad IM 3+ 00:00:00 [facility] Influenza Virus 2015-05-25 Completed [facility] y of Vaccine Quad IM 3+ 00:00:00 [facility] Influenza Virus 2015-05-25 Completed [facility] y of Vaccine Quad IM 3+ 00:00:00 [facility] Influenza Virus 2015-05-25 Completed [facility] y of Vaccine Quad IM 3+ 00:00:00 [facility] Influenza Virus 2015-05-25 Completed [facility] y of Vaccine Quad IM 3+ 00:00:00 [facility] Influenza Virus 2015-05-25 Completed [facility] y of Vaccine Quad IM 3+ 00:00:00 [facility] Influenza Virus 2015-05-25 Completed [facility] y of Vaccine Quad IM 3+ 00:00:00 [facility] Influenza Virus 2015-05-25 Completed [facility] y of Vaccine Quad IM 3+ 00:00:00 [facility] Influenza Virus 2015-05-25 Completed [facility] y of Vaccine Quad IM 3+ 00:00:00 [facility] Influenza Virus 2015-05-25 Completed [facility] y of Vaccine Quad IM 3+ 00:00:00 [facility] Influenza Virus 2015-05-25 Completed [facility] y of Vaccine Quad IM 3+ 00:00:00 [facility] Influenza Virus 2015-05-25 Completed [facility] y of Vaccine Quad IM 3+ 00:00:00 [facility] Influenza Virus 2015-05-25 Completed [facility] y of Vaccine Quad IM 3+ 00:00:00 [facility] Influenza Virus 2015-05-25 Completed [facility] y of Vaccine Quad IM 3+ 00:00:00 [facility] Influenza Virus 2015-05-25 Completed [facility] y of Vaccine [facility] IM 3+ 00:00:00 [facility] Influenza Virus 2015-05-25 Completed [facility] y of Vaccine [facility] IM 3+ 00:00:00 [facility] Influenza Virus 2015-05-25 Completed [facility] of Vaccine Quad IM 3+ 00:00:00 [facility] Influenza Virus 2015-05-25 Completed [facility] of Vaccine Quad IM 3+ 00:00:00 [facility] Influenza Virus 2015-05-25 Completed [facility] y of Vaccine Quad IM 3+ 00:00:00 [facility] Influenza Virus 2015-05-25 Completed [facility] y of Vaccine Quad IM 3+ 00:00:00 [facility] Influenza Virus 2015-05-25 Completed [facility] of Vaccine [facility] IM 3+ 00:00:00 [facility] Influenza Virus 2015-05-25 Completed [facility] of Vaccine [facility] IM 3+ 00:00:00 [facility] Influenza Virus 2015-05-25 Completed [facility] Vaccine [facility] IM 3+ 00:00:00 [facility] Influenza Virus 2015-05-25 Completed [facility] Vaccine Quad IM 3+ 00:00:00 [facility] Influenza Virus 2015-05-25 Completed [facility] Vaccine [facility] IM 3+ 00:00:00 [facility] Influenza Virus 2015-05-25 Completed [facility] 3+ 00:00:00 [facility] Influenza Virus 2015-05-25 Completed [facility] 3+ 00:00:00 [facility] Influenza Virus 2015-05-25 Completed [facility] 3+ 00:00:00 [facility] Influenza Virus 2015-05-25 Completed [facility] 3+ 00:00:00 [facility] Influenza Virus 2015-05-25 Completed [facility] 3+ 00:00:00 [facility] Influenza Virus 2015-05-25 Completed [facility] 3+ 00:00:00 [facility] Influenza Virus 2015-05-25 Completed [facility] 3+ 00:00:00 [facility] Influenza Virus 2015-05-25 Completed [facility] 3+ 00:00:00 [facility] Influenza Virus 2015-05-25 Completed [facility] 3+ 00:00:00 [facility] Influenza Virus 2015-05-25 Completed [facility] 3+ 00:00:00 [facility] Influenza Virus 2015-05-25 Completed [facility] 3+ 00:00:00 [facility] Influenza Virus 2015-05-25 Completed [facility] 3+ 00:00:00 [facility] Influenza Virus 2015-05-25 Completed [facility] 3+ 00:00:00 [facility] Influenza Virus 2015-05-25 Completed [facility] 3+ 00:00:00 [facility] Influenza Virus 2015-05-25 Completed [facility] 3+ 00:00:00 [facility] Influenza Virus 2015-05-25 Completed [facility] 3+ 00:00:00 [facility] Influenza Virus 2015-05-25 Completed [facility] 3+ 00:00:00 [facility] Influenza Virus 2015-05-25 Completed [facility] 3+ 00:00:00 [facility] Influenza Virus 2015-05-25 Completed [facility] 3+ 00:00:00 [facility] Influenza Virus 2015-05-25 Completed [facility] 3+ 00:00:00 [facility] Influenza Virus 2015-05-25 Completed [facility] 3+ 00:00:00 [facility] Influenza Virus 2015-05-25 Completed [facility] 3+ 00:00:00 [facility] TDAP 2012-10-23 Completed [facility] of 00:00:00 [facility] TDAP 2012-10-23 Completed [facility] of 00:00:00 [facility] TDAP 2012-10-23 Completed [facility] of 00:00:00 [facility] TDAP 2012-10-23 Completed [facility] of 00:00:00 [facility] TDAP 2012-10-23 Completed [facility] of 00:00:00 [facility] TDAP 2012-10-23 Completed [facility] of 00:00:00 [facility] TDAP 2012-10-23 Completed [facility] of 00:00:00 [facility] TDAP 2012-10-23 Completed [facility] of 00:00:00 [facility] TDAP 2012-10-23 Completed [facility] of 00:00:00 [facility] TDAP 2012-10-23 Completed [facility] of 00:00:00 [facility] TDAP 2012-10-23 Completed [facility] of 00:00:00 [facility] TDAP 2012-10-23 Completed [facility] of 00:00:00 [facility] TDAP 2012-10-23 Completed [facility] of 00:00:00 [facility] TDAP 2012-10-23 Completed [facility] of 00:00:00 [facility] TDAP 2012-10-23 Completed [facility] of 00:00:00 [facility] TDAP 2012-10-23 Completed [facility] of 00:00:00 [facility] TDAP 2012-10-23 Completed [facility] of 00:00:00 [facility] TDAP 2012-10-23 Completed [facility] of 00:00:00 [facility] TDAP 2012-10-23 Completed [facility] 00:00:00 [facility] TDAP 2012-10-23 Completed [facility] 00:00:00 [facility] TDAP 2012-10-23 Completed [facility] 00:00:00 [facility] Tdap 2012-10-23 Completed [facility] of 00:00:00 [facility] TDAP 2012-10-23 Completed [facility] of 00:00:00 [facility] TDAP 2012-10-23 Completed [facility] 00:00:00 [facility] TDAP 2012-10-23 Completed [facility] of 00:00:00 [facility] TDAP 2012-10-23 Completed [facility] of 00:00:00 [facility] TDAP 2012-10-23 Completed [facility] of 00:00:00 [facility] TDAP 2012-10-23 Completed [facility] of 00:00:00 [facility] TDAP 2012-10-23 Completed [facility] 00:00:00 [facility] TDAP 2012-10-23 Completed [facility] of 00:00:00 [facility] TDAP 2012-10-23 Completed [facility] of 00:00:00 [facility] TDAP 2012-10-23 Completed [facility] of 00:00:00 [facility] Tdap 2012-10-23 Completed [facility] of 00:00:00 [facility] TDAP 2012-10-23 Completed [facility] of 00:00:00 [facility] Tdap 2012-10-23 Completed [facility] of 00:00:00 [facility] Tdap 2012-10-23 Completed [facility] of 00:00:00 [facility] Tdap 2012-10-23 Completed [facility] of 00:00:00 [facility] Tdap 2012-10-23 Completed [facility] of 00:00:00 [facility] Tdap 2012-10-23 Completed [facility] of 00:00:00 [facility] Tdap 2012-10-23 Completed [facility] of 00:00:00 [facility] Tdap 2012-10-23 Completed [facility] of 00:00:00 [facility] Tdap 2012-10-23 Completed [facility] of 00:00:00 [facility] Tdap 2012-10-23 Completed [facility] of 00:00:00 [facility] Tdap 2012-10-23 Completed [facility] of 00:00:00 [facility] Tdap 2012-10-23 Completed [facility] of 00:00:00 [facility] Tdap 2012-10-23 Completed [facility] of 00:00:00 [facility] Tdap 2012-10-23 Completed [facility] 00:00:00 [facility] Tdap 2012-10-23 Completed [facility] of 00:00:00 [facility] Tdap 2012-10-23 Completed [facility] of 00:00:00 [facility] Tdap 2012-10-23 Completed [facility] of 00:00:00 [facility] Tdap 2012-10-23 Completed [facility] of 00:00:00 [facility] Tdap 2012-10-23 Completed [facility] of 00:00:00 [facility] Tdap 2012-10-23 Completed [facility] 00:00:00 [facility] Tdap 2012-10-23 Completed [facility] of 00:00:00 [facility] Tdap 2012-10-23 Completed [facility] of 00:00:00 [facility] Tdap 2012-10-23 Completed [facility] of 00:00:00 [facility] Tdap 2012-10-23 Completed [facility] of 00:00:00 [facility] Tdap 2012-10-23 Completed [facility] of 00:00:00 [facility] Tdap 2012-10-23 Completed [facility] 00:00:00 [facility] Tdap 2012-10-23 Completed [facility] of 00:00:00 [facility] Tdap 2012-10-23 Completed [facility] of 00:00:00 [facility] Tdap 2012-10-23 Completed [facility] of 00:00:00 [facility] Tdap 2012-10-23 Completed [facility] of 00:00:00 [facility] Tdap 2012-10-23 Completed [facility] 00:00:00 [facility] Tdap 2012-10-23 Completed [facility] 00:00:00 [facility] Tdap 2012-10-23 Completed [facility] 00:00:00 [facility] Tdap 2012-10-23 Completed [facility] of 00:00:00 [facility] Tdap 2012-10-23 Completed [facility] 00:00:00 [facility] Tdap 2012-10-23 Completed [facility] 00:00:00 [facility] Tdap 2012-10-23 Completed [facility] 00:00:00 [facility] Tdap 2012-10-23 Completed [facility] 00:00:00 [facility] Tdap 2012-10-23 Completed [facility] 00:00:00 [facility] Tdap 2012-10-23 Completed [facility] 00:00:00 [facility] Tdap 2012-10-23 Completed [facility] 00:00:00 [facility] Tdap 2012-10-23 Completed [facility] 00:00:00 [facility] TDAP 2012-10-23 Completed [facility] 00:00:00 [facility] TDAP 2012-10-23 Completed [facility] 00:00:00 [facility] TDAP 2012-10-23 Completed [facility] 00:00:00 [facility] TDAP 2012-10-23 Completed [facility] 00:00:00 [facility] TDAP 2012-10-23 Completed [facility] 00:00:00 [facility] TDAP 2012-10-23 Completed [facility] 00:00:00 [facility] TDAP 2012-10-23 Completed [facility] 00:00:00 [facility] TDAP 2012-10-23 Completed [facility] of 00:00:00 [facility] Vital Signs Vital Name Observation Time Observation Value Comments Source Systolic blood 2022-07-07 106 mm[Hg] [facility] of pressure 17:16:00 [facility] Diastolic blood 2022-07-07 71 mm[Hg] University o f pressure 17:16:00 [facility] Heart rate 2022-07-07 78 /min University of 17:16:00 [facility] Body temperature 2022-07-07 36.94 Trice University of 17:16:00 [facility] Respiratory rate 2022-07-07 16 /min University of 17:16:00 [facility] Body height 2022-07-07 154.9 cm University of 17:16:00 [facility] Body weight 2022-07-07 76.658 kg University of 17:16:00 [facility] BMI 2022-07-07 31.93 kg/m2 University of 17:16:00 [facility] Oxygen saturation 2022-07-07 98 /min [facility] in Arterial blood 17:16:00 [facility] Pulse oximetry Branch Systolic blood 2022-02-21 129 mm[Hg] University of pressure 18:27:00 [facility] Diastolic blood 2022-02-21 82 mm[Hg] University o f pressure 18:27:00 [facility] Heart rate 2022-02-21 63 /min University of 18:27:00 [facility] Body temperature 2022-02-21 36.94 Trice University of 18:27:00 [facility] Respiratory rate 2022-02-21 18 /min University of 18:27:00 [facility] Body height 2022-02-21 154.9 cm University of 18:27:00 [facility] Body weight 2022-02-21 89.404 kg University of 18:27:00 [facility] BMI 2022-02-21 37.24 kg/m2 University of 18:27:00 [facility] Oxygen saturation 2022-02-21 97 /min [facility] of in Arterial blood 18:27:00 [facility] Systolic blood 2021-12-26 113 mm[Hg] [facility] of pressure 20:37:00 [facility] Diastolic blood 2021-12-26 77 mm[Hg] University o f pressure 20:37:00 [facility] Heart rate 2021-12-26 85 /min University of 20:37:00 [facility] Body temperature 2021-12-26 36.83 Trice University of 20:37:00 [facility] Respiratory rate 2021-12-26 17 /min University of 20:37:00 [facility] Body height 2021-12-26 154.9 cm University of 20:37:00 [facility] Body weight 2021-12-26 90.266 kg University of 20:37:00 [facility] BMI 2021-12-26 37.60 kg/m2 University of 20:37:00 [facility] Oxygen saturation 2021-12-26 97 /min University of in Arterial blood 20:37:00 [facility] by Pulse oximetry Branch Systolic blood 2021-04-04 107 mm[Hg] [facility] of pressure 20:06:00 [facility] Diastolic blood 2021-04-04 61 mm[Hg] University o f pressure 20:06:00 [facility] Heart rate 2021-04-04 91 /min University of 20:06:00 [facility] Body temperature 2021-04-04 36.94 Trice University of 20:06:00 [facility] Respiratory rate 2021-04-04 18 /min University of 20:06:00 [facility] Body height 2021-04-04 154.9 cm University of 20:06:00 [facility] Body weight 2021-04-04 94.802 kg University of 20:06:00 [facility] BMI 2021-04-04 39.49 kg/m2 University of 20:06:00 [facility] Systolic blood 2021-02-13 113 mm[Hg] [facility] of pressure 15:42:00 [facility] Diastolic blood 2021-02-13 81 mm[Hg] University o f pressure 15:42:00 [facility] Heart rate 2021-02-13 71 /min University of 15:42:00 [facility] Body temperature 2021-02-13 38.11 [facility] University of 15:42:00 [facility] Respiratory rate 2021-02-13 20 /min University of 15:42:00 [facility] Body height 2021-02-13 154.9 cm University of 15:42:00 [facility] Body weight 2021-02-13 95.822 kg University of 15:42:00 [facility] BMI 2021-02-13 39.92 kg/m2 University of 15:42:00 [facility] Oxygen saturation 2021-02-13 98 /min [facility] of in Arterial blood 15:42:00 [facility] Systolic blood 2021-02-13 113 mm[Hg] [facility] of pressure 15:42:00 [facility] Diastolic blood 2021-02-13 81 mm[Hg] University o f pressure 15:42:00 [facility] Heart rate 2021-02-13 71 /min University of 15:42:00 [facility] Body temperature 2021-02-13 38.11 [facility] University of 15:42:00 [facility] Respiratory rate 2021-02-13 20 /min University of 15:42:00 [facility] Body height 2021-02-13 154.9 cm University of 15:42:00 [facility] Body weight 2021-02-13 95.822 kg University of 15:42:00 [facility] BMI 2021-02-13 39.92 kg/m2 University of 15:42:00 [facility] Oxygen saturation 2021-02-13 98 /min [facility] of in Arterial blood 15:42:00 [facility] P[facility] Systolic blood 2020-12-10 129 mm[Hg] University of pressure 14:44:00 [facility] Diastolic blood 2020-12-10 71 mm[Hg] University o f pressure 14:44:00 [facility] Heart rate 2020-12-10 99 /min University of 14:44:00 [facility] Body temperature 2020-12-10 36.22 [facility] University of 14:44:00 [facility] Respiratory rate 2020-12-10 20 /min University of 14:44:00 [facility] Body height 2020-12-10 154.9 cm University of 14:44:00 [facility] Body weight 2020-12-10 97.523 kg University of 14:44:00 [facility] BMI 2020-12-10 40.62 kg/m2 University of 14:44:00 [facility] Oxygen saturation 2020-12-10 99 /min [facility] of in Arterial blood 14:44:00 [facility] Systolic blood 2020-12-10 129 mm[Hg] University of pressure 14:44:00 [facility] Diastolic blood 2020-12-10 71 mm[Hg] University o f pressure 14:44:00 [facility] Heart rate 2020-12-10 99 /min University of 14:44:00 [facility] Body temperature 2020-12-10 36.22 [facility] University of 14:44:00 [facility] Respiratory rate 2020-12-10 20 /min University of 14:44:00 [facility] Body height 2020-12-10 154.9 cm University of 14:44:00 [facility] Body weight 2020-12-10 97.523 kg University of 14:44:00 [facility] BMI 2020-12-10 40.62 kg/m2 University of 14:44:00 [facility] Oxygen saturation 2020-12-10 99 /min University of in Arterial blood 14:44:00 [facility] daren by Pulse oximetry Branch Systolic blood 2020-11-29 107 mm[Hg] University of pressure 20:12:00 [facility] Diastolic blood 2020-11-29 66 mm[Hg] University o f pressure 20:12:00 [facility] Heart rate 2020-11-29 89 /min University of 20:12:00 [facility] Body height 2020-11-29 154.9 cm University of 20:12:00 [facility] Body weight 2020-11-29 97.523 kg University of 20:12:00 [facility] BMI 2020-11-29 40.62 kg/m2 University of 20:12:00 [facility] Oxygen saturation 2020-11-29 95 /min [facility] of in Arterial blood 20:12:00 [facility] Systolic blood 2020-11-29 107 mm[Hg] [facility] of pressure 20:12:00 [facility] Diastolic blood 2020-11-29 66 mm[Hg] University o f pressure 20:12:00 [facility] Heart rate 2020-11-29 89 /min University of 20:12:00 [facility] Body height 2020-11-29 154.9 cm University of 20:12:00 [facility] Body weight 2020-11-29 97.523 kg University of 20:12:00 [facility] BMI 2020-11-29 40.62 kg/m2 University of 20:12:00 [facility] Oxygen saturation 2020-11-29 95 /min [facility] in Arterial blood 20:12:00 [facility] Systolic blood 2020-11-21 98 mm[Hg] [facility] of pressure 14:00:00 [facility] Diastolic blood 2020-11-21 60 mm[Hg] University o f pressure 14:00:00 [facility] Heart rate 2020-11-21 61 /min University of 14:00:00 [facility] Body temperature 2020-11-21 36.83 [place] University of 14:00:00 [facility] Respiratory rate 2020-11-21 18 /min University of 14:00:00 [facility] Body height 2020-11-21 154.9 cm University of 14:00:00 [facility] Body weight 2020-11-21 97.977 kg University of 14:00:00 [facility] BMI 2020-11-21 40.81 kg/m2 University of 14:00:00 [facility] Systolic blood 2020-11-09 127 mm[Hg] University of pressure 19:40:00 [facility] Diastolic blood 2020-11-09 88 mm[Hg] University o f pressure 19:40:00 [facility] Heart rate 2020-11-09 78 /min University of 19:40:00 [facility] Respiratory rate 2020-11-09 16 /min University of 19:40:00 [facility] Oxygen saturation 2020-11-09 99 /min [facility] of in Arterial blood 19:40:00 [facility] Body temperature 2020-11-09 36.94 Trice University of 17:57:00 [facility] Body weight 2020-11-09 99.791 kg University of 17:57:00 [facility] BMI 2020-11-09 41.57 kg/m2 University of 17:57:00 [facility] Systolic blood 2020-10-24 111 mm[Hg] University of pressure 15:18:00 [facility] Diastolic blood 2020-10-24 72 mm[Hg] University o f pressure 15:18:00 [facility] Heart rate 2020-10-24 74 /min University of 15:18:00 [facility] Body temperature 2020-10-24 36.61 Trice University of 15:18:00 [facility] Respiratory rate 2020-10-24 18 /min University of 15:18:00 [facility] Body height 2020-10-24 154.9 cm University of 15:18:00 [facility] Body weight 2020-10-24 100.699 kg University of 15:18:00 [facility] BMI 2020-10-24 41.95 kg/m2 University of 15:18:00 [facility] Systolic blood 2020-10-22 124 mm[Hg] [facility] of pressure 18:19:00 [facility] Diastolic blood 2020-10-22 79 mm[Hg] University o f pressure 18:19:00 [facility] Heart rate 2020-10-22 70 /min University of 18:19:00 [facility] Body temperature 2020-10-22 36.94 Trice University of 18:19:00 [facility] Respiratory rate 2020-10-22 18 /min University of 18:19:00 [facility] Body height 2020-10-22 154.9 cm University of 18:19:00 [facility] Body weight 2020-10-22 99.791 kg University of 18:19:00 [facility] BMI 2020-10-22 41.57 kg/m2 University of 18:19:00 [facility] Oxygen saturation 2020-10-22 98 /min [facility] in Arterial blood 18:19:00 [facility] Pulse oximetry [facility] Systolic blood 2020-10-20 134 mm[Hg] University of pressure 04:03:00 [facility] Diastolic blood 2020-10-20 84 mm[Hg] University o f pressure 04:03:00 [facility] Heart rate 2020-10-20 65 /min University of 04:03:00 [facility] Respiratory rate 2020-10-20 18 /min University of 04:03:00 [facility] Oxygen saturation 2020-10-20 99 /min University of in Arterial blood 04:03:00 [facility] by Pulse oximetry Branch Body temperature 2020-10-20 36.89 Trice University of 01:30:40 [facility] Body height 2020-10-20 154.9 cm University of :27:00 [facility] Body weight 2020-10-20 99.791 kg University of :27:00 [facility] BMI 2020-10-20 41.57 kg/m2 University of :27:00 [facility] Heart rate 2020-07-02 73 /min University of 00:21:00 [facility] Respiratory rate 2020-07-02 16 /min University of 00::00 [facility] Oxygen saturation 2020-07-02 98 /min University of in Arterial blood 00:21:00 [facility] by Pulse oximetry Branch Systolic blood 2020-06-06 112 mm[Hg] [facility] of pressure 15:51:00 [facility] Diastolic blood 2020-06-06 77 mm[Hg] University o f pressure 15:51:00 [facility] Heart rate 2020-06-06 78 /min University of 15:51:00 [facility] Body temperature 2020-06-06 37.06 Trice University of 15:51:00 [facility] Respiratory rate 2020-06-06 20 /min University of 15:51:00 [facility] Body height 2020-06-06 154.9 cm University of 15:51:00 [facility] Oxygen saturation 2020-06-06 98 /min [facility] of in Arterial blood 15:51:00 [facility] by Pulse oximetry Branch Systolic blood 2020-05-27 108 mm[Hg] [facility] of pressure 15:22:00 [facility] Diastolic blood 2020-05-27 63 mm[Hg] University o f pressure 15:22:00 [facility] Heart rate 2020-05-27 83 /min University of 15::00 [facility] Body temperature 2020-05-27 36.17 [place] University of 15:22:00 [facility] Respiratory rate 2020-05-27 19 /min University of 15:22:00 [facility] Body height 2020-05-27 154.9 cm University of 15:22:00 [facility] Body weight 2020-05-27 92.534 kg University of 15:22:00 [facility] BMI 2020-05-27 38.55 kg/m2 University of 15:22:00 [facility] Oxygen saturation 2020-05-27 97 /min [facility] in Arterial blood 15:22:00 [facility] P[facility] Systolic blood 2020-04-09 128 mm[Hg] [facility] of pressure 15:38:00 [facility] Diastolic blood 2020-04-09 71 mm[Hg] University o f pressure 15:38:00 [facility] Heart rate 2020-04-09 85 /min University of 15:38:00 [facility] Body temperature 2020-04-09 37 [facility] University of 15:38:00 [facility] Respiratory rate 2020-04-09 18 /min University of 15:38:00 [facility] Body height 2020-04-09 154.9 cm University of 15:38:00 [facility] Body weight 2020-04-09 99.882 kg University of 15:38:00 [facility] BMI 2020-04-09 41.61 kg/m2 University of 15:38:00 [facility] Oxygen saturation 2020-04-09 100 /min University of in Arterial blood 15:38:00 [facility] daren by Pulse oximetry Branch Systolic blood 2020-03-11 119 mm[Hg] University of pressure 18:55:00 [facility] Diastolic blood 2020-03-11 68 mm[Hg] University o f pressure 18:55:00 [facility] Heart rate 2020-03-11 83 /min University of 18:38:00 [facility] Body temperature 2020-03-11 37 Trice University of 18:38:00 [facility] Respiratory rate 2020-03-11 18 /min University of 18:38:00 [facility] Oxygen saturation 2020-03-11 100 /min [facility] in Arterial blood 18:38:00 [facility] by Pulse oximetry Branch Systolic blood 2020-03-07 131 mm[Hg] University of pressure 03:00:00 [facility] Diastolic blood 2020-03-07 78 mm[Hg] University o f pressure 03:00:00 [facility] Heart rate 2020-03-07 81 /min University of 03:00:00 [facility] Respiratory rate 2020-03-07 18 /min University of 03:00:00 [facility] Oxygen saturation 2020-03-07 99 /min University of in Arterial blood 03:00:00 [place] [facility] by Pulse oximetry Branch Body temperature 2020-03-07 36.83 Trice University of 00:50:00 [facility] Body height 2020-03-07 154.9 cm University of 00:50:00 [facility] Body weight 2020-03-07 95.255 kg University of 00:50:00 [facility] BMI 2020-03-07 39.68 kg/m2 University of 00:50:00 [facility] Systolic blood 2020-03-06 131 mm[Hg] University of pressure 15:38:00 [facility] Diastolic blood 2020-03-06 77 mm[Hg] University o f pressure 15:38:00 [facility] Heart rate 2020-03-06 99 /min University of 15:38:00 [facility] Body temperature 2020-03-06 37.06 Trice University of 15:38:00 [facility] Respiratory rate 2020-03-06 18 /min University of 15:38:00 [facility] Body weight 2020-03-06 99.791 kg University of 15:38:00 [facility] BMI 2020-03-06 41.57 kg/m2 University of 15:38:00 [facility] Oxygen saturation 2020-03-06 97 /min University of in Arterial blood 15:38:00 [facility] daren by Pulse oximetry Branch Systolic blood 2020-02-08 115 mm[Hg] University of pressure 02:31:00 [facility] Diastolic blood 2020-02-08 66 mm[Hg] University o f pressure 02:31:00 [facility] Heart rate 2020-02-08 79 /min University of 02:31:00 [facility] Body temperature 2020-02-08 36.94 Trice University of 02:31:00 [facility] Respiratory rate 2020-02-08 16 /min University of 02:31:00 [facility] Body height 2020-02-08 154.9 cm University of 02:31:00 [facility] Body weight 2020-02-08 91.173 kg University of 02:31:00 [facility] BMI 2020-02-08 37.98 kg/m2 University of 02:31:00 [facility] Oxygen saturation 2020-02-08 99 /min University of in Arterial blood 02:31:00 [place] [facility] Pulse oximetry Branch Systolic blood 2019-12-15 120 mm[Hg] University of pressure 02:00:00 [facility] Diastolic blood 2019-12-15 66 mm[Hg] University o f pressure 02:00:00 [facility] Heart rate 2019-12-15 65 /min University of 02:00:00 [facility] Branch Respiratory rate 2019-12-15 17 /min University of 02:00:00 [facility] Oxygen saturation 2019-12-15 99 /min University of in Arterial blood 02:00:00 [facility] daren by Pulse oximetry Branch Body temperature 2019-12-14 37.33 Trice University of 21:23:00 [facility] Body weight 2019-12-14 77.111 kg University of 21:23:00 [facility] BMI 2019-12-14 32.12 kg/m2 University of 21:23:00 [facility] Systolic blood 2019-11-27 117 mm[Hg] University of pressure 15:10:00 [facility] Branch Diastolic blood 2019-11-27 74 mm[Hg] University o f pressure 15:10:00 [facility] Heart rate 2019-11-27 80 /min University of 15:10:00 [facility] Respiratory rate 2019-11-27 12 /min University of 15:10:00 [facility] Oxygen saturation 2019-11-27 97 /min University of in Arterial blood 15:10:00 [facility] by Pulse oximetry Branch Body temperature 2019-11-27 37.28 Trice University of 14:15:00 [facility] Body weight 2019-11-27 81.647 kg University of 14:15:00 [facility] BMI 2019-11-27 34.01 kg/m2 University of 14:15:00 [facility] Systolic blood 2019-11-16 116 mm[Hg] University of pressure 13:24:00 [facility] Diastolic blood 2019-11-16 74 mm[Hg] University o f pressure 13:24:00 [facility] Heart rate 2019-11-16 78 /min University of 13:24:00 [facility] Body temperature 2019-11-16 36.78 Trice University of 13:24:00 [facility] Respiratory rate 2019-11-16 18 /min University of 13:24:00 [facility] Body height 2019-11-16 154.9 cm University of 13:24:00 [facility] Body weight 2019-11-16 83.915 kg University of 13:24:00 [facility] BMI 2019-11-16 34.96 kg/m2 University of 13:24:00 [facility] Systolic blood 2019-10-22 130 mm[Hg] University of pressure 19:04:00 [facility] Diastolic blood 2019-10-22 83 mm[Hg] University o f pressure 19:04:00 [facility] Heart rate 2019-10-22 77 /min University of 19:04:00 [facility] Body temperature 2019-10-22 36.28 Trice University of 19:04:00 [facility] Respiratory rate 2019-10-22 16 /min University of 19:04:00 [facility] Body height 2019-10-22 154.9 cm University of 19:04:00 [facility] Body weight 2019-10-22 79.153 kg University of 19:04:00 [facility] BMI 2019-10-22 32.97 kg/m2 University of 19:04:00 [facility] Systolic blood 2019-10-01 117 mm[Hg] University of pressure 16:41:00 [facility] Diastolic blood 2019-10-01 73 mm[Hg] University o f pressure 16:41:00 [facility] Heart rate 2019-10-01 86 /min University of 16:41:00 [facility] Body temperature 2019-10-01 36.67 Trice University of 16:41:00 [facility] Respiratory rate 2019-10-01 16 /min University of 16:41:00 [facility] Body height 2019-10-01 154.9 cm University of 16:41:00 [facility] Body weight 2019-10-01 78.983 kg University of 16:41:00 [facility] BMI 2019-10-01 32.90 kg/m2 University of 16:41:00 [facility] Systolic blood 2019-09-16 117 mm[Hg] University of pressure 14:41:04 [facility] Diastolic blood 2019-09-16 78 mm[Hg] University o f pressure 14:41:04 [facility] Heart rate 2019-09-16 74 /min University of 14:41:04 [facility] Body temperature 2019-09-16 36.94 Trice University of 14:41:04 [facility] Respiratory rate 2019-09-16 20 /min University of 14:41:04 [facility] Oxygen saturation 2019-09-16 100 /min University of in Arterial blood 14:41:04 [facility] by Pulse oximetry Branch Body weight 2019-09-16 77.565 kg University of 12:24:00 [facility] BMI 2019-09-16 32.31 kg/m2 University of 12:24:00 [facility] Systolic blood 2019-09-09 126 mm[Hg] University of pressure 19:24:00 [facility] Diastolic blood 2019-09-09 82 mm[Hg] University o f pressure 19:24:00 [facility] Heart rate 2019-09-09 86 /min University of 19:24:00 [facility] Body temperature 2019-09-09 37.22 Trice University of 19:24:00 [facility] Respiratory rate 2019-09-09 16 /min University of 19:24:00 [facility] Body height 2019-09-09 154.9 cm University of 19:24:00 [facility] Body weight 2019-09-09 77.565 kg University of 19:24:00 [facility] BMI 2019-09-09 32.31 kg/m2 University of 19:24:00 [facility] Oxygen saturation 2019-09-09 98 /min [facility] in Arterial blood 19:24:00 [facility] Pulse oximetry Roy Systolic blood 2019-09-03 119 mm[Hg] University of pressure 20:38:00 [facility] Diastolic blood 2019-09-03 74 mm[Hg] University o f pressure 20:38:00 [facility] Heart rate 2019-09-03 69 /min University of 20:38:00 [facility] Body temperature 2019-09-03 36.94 Trice University of 20:38:00 [facility] Respiratory rate 2019-09-03 16 /min University of 20:38:00 [facility] Body height 2019-09-03 154.9 cm University of 20:38:00 [facility] Body weight 2019-09-03 77.764 kg University of 20:38:00 [facility] BMI 2019-09-03 32.39 kg/m2 University of 20:38:00 [facility] Systolic blood 2022-09-06 107 mm[Hg] [facility] pressure 17:45:20 Hospital Diastolic blood 2022-09-06 67 mm[Hg] [facility] pressure 17:45:20 Hospital Heart rate 2022-09-06 50 /min [facility] 17:45:20 Hospital Body temperature 2022-09-06 36.56 Trice [facility] 17:45:20 Hospital Respiratory rate 2022-09-06 18 /min [facility] 17:45:20 Hospital Oxygen saturation 2022-09-06 99 /min [facility] in Arterial blood 17:45:20 Hospital by Pulse oximetry Body height 2022-09-04 157.5 cm [facility] 20:14:00 Hospital Body weight 2022-09-04 60.782 kg [facility] 20:14:00 Hospital BMI 2022-09-04 24.51 kg/m2 [facility] 20:14:00 Hospital Systolic blood 2020-07-27 123 mm[Hg] [facility] pressure 13:24:00 Position: Sitting Diastolic [...] Date / Time Performing Clinician Source Performed CBC WITH PLATELET AND 2022-09-06 10:25:00 Tony Tripp [facility] DIFFERENTIAL BASIC METABOLIC PANEL 2022-09-06 10:25:00 Tony Tripp [facility] ESTIMATED GFR 2022-09-06 10:25:[address] [facility] spital MI AN ELECTIVE 2022-09-05 23:03:00 [facility]TRA[facility], TOOTH 2022-09-05 22:49:00 [facility] PANEL 2022-09-05 20:45:[address] [facility] spital Tomer MISCELLANEOUS REFERRAL 2022-09-05 20:45:00 Marli Fleming [facility] TEST ECG 12-LEAD 2022-09-05 16:13:13 [facility] ospital SURGICAL PATHOLOGY REQUEST 2022-09-05 13:55:00 [facility] CBC WITH PLATELET AND 2022-09-05 12:38:00 [facility] DIFFERENTIAL PROTHROMBIN TIME WITH INR 2022-09-05 12:38:00 [facility] PARTIAL THROMBOPLASTIN 2022-09-05 12:38:00 [facility] TIME (PTT) COMPREHENSIVE METABOLIC 2022-09-05 12:38:00 [facility] PANEL MAGNESIUM LEVEL 2022-09-05 12:38:00 [facility] ospital PHOSPHORUS LEVEL 2022-09-05 12:38:00 [facility] THYROID STIMULATING 2022-09-05 12:38:00 [facility] HORMONE ESTIMATED GFR 2022-09-05 12:38:00 [facility] ospital URINE DRUGS OF ABUSE 2022-09-05 08:02:00 [facility] SCREEN CT MAXILLOFACIAL W 2022-09-05 00:17:00 Lolly Harris [facility] CONTRAST COVID-19, INFLUENZA A&B, 2022-09-04 23:43:00 [facility] AND RSV QUALITATIVE RT-PCR BLOOD CULTURE, AEROBIC & 2022-09-04 23:43:00 [facility] ANAEROBIC URINE CULTURE 2022-09-04 22:06:00 [facility] URINALYSIS SCREEN AND 2022-09-04 21:21:00 [facility] MICROSCOPY, WITH REFLEX TO CULTURE BLOOD CULTURE, AEROBIC & 2022-09-04 21:17:00 [facility] ANAEROBIC CBC WITH PLATELET AND 2022-09-04 21:16:00 [facility] DIFFERENTIAL COMPREHENSIVE METABOLIC 2022-09-04 21:16:00 [facility] PANEL HCG QUALITATIVE, SERUM 2022-09-04 21:16:00 [facility] SCREEN ESTIMATED GFR 2022-09-04 21:16:00 [facility] CONSENT/REFUSAL FOR 2021-12-26 20:32:40 Doctor Unassigned, [facility] DIAGNOSIS AND TREATMENT [place] [facility] ASSIGNMENT OF BENEFITS 2021-12-26 20:32:30 Doctor Unassigned, [facility] [place] [facility] CONSENT FOR CONTRACEPTION 2021-04-04 05:01:00 Doctor Unasssally, [facility] [place] [facility] POCT TEST 2021-04-04 00:00:00 Liv Ferreira [facility] POCT URINALYSIS W/O 2021-04-04 00:00:00 Jhon Liv [facility] SPECIFIC GRAVITY [facility] POCT GRP A STREP 2021-02-13 15:49:00 Fransisco Escobar [facility] (MOLECULAR) Medical Roy POCT FLU A AND B 2020-12-10 14:54:00 Skyler Moser [facility] (MOLECULAR) [facility] POCT GRP A STREP 2020-12-10 14:50:00 Skyler Moser [facility] (MOLECULAR) Medical [facility] DISCLOSURE AND CONSENT, 2020-11-21 05:01:00 Doctor Unassigned, [facility] MEDICAL AND SURGICAL [place] [facility] PROCEDURES POCT TEST 2020-11-21 00:00:00 Olman Sheth [facility] BASIC METABOLIC PANEL (NA, 2020-11-09 18:30:00 Ami Perry [facility] K, CL, CO2, GLUCOSE, BUN, Medica l Branch CREATININE, CA) CBC WITH DIFF 2020-11-09 18:30:00 Ami Perry [facility] URINALYSIS 2020-11-09 18:30:00 Ami Perry [facility] HB ABO GROUPING 2020-11-09 18:29:00 Ami Perry [facility] POCT TEST 2020-11-09 18:19:00 Ami Perry [facility] CONSENT/REFUSAL FOR 2020-11-09 17:47:24 Doctor Unassigned, [facility] DIAGNOSIS AND TREATMENT [place] [facility] POCT URINALYSIS W/O 2020-10-24 00:00:00 Olman Sheth [facility] SPECIFIC GRAVITY [facility] US OVARY TORSION 2020-10-20 03:54:07 Garrett Lares [facility] LIPASE 2020-10-20 02:31:00 Garrett Lares [facility] COMP. METABOLIC PANEL 2020-10-20 02:31:00 Garrett Lares [facility] ([id number]) [facility] CBC WITH DIFF 2020-10-20 02:31:00 Garrett Lares [facility] PROTHROMBIN TIME / INR 2020-10-20 02:31:00 Garrett Lares [facility] URINALYSIS 2020-10-20 02:31:00 Garrett Lares [facility] POCT TEST 2020-10-20 01:42:00 Garrett Lares [facility] [QL] CBC (INCLUDES 2020-07-04 00:00:00 [facility] DIFF/PLT) [Q] VON [place] 2020-07-04 00:00:00 [facility] COMPREHENSIVE PANEL [QL] PROTHROMBIN W/INR + 2020-07-04 00:00:00 [facility] PARTIAL THROMBOPLASTIN TIMES . [facility] - PAP w/reflex 2020-06-29 00:00:00 [facility] HPV if ASC-US or above POCT GRP A STREP 2020-06-06 16:16:00 [facility] (MOLECULAR) [facility] POCT FLU A AND B 2020-06-06 16:03:00 Shawn [facility] (MOLECULAR) [facility] XR ANKLE 3+ VW RIGHT 2020-05-27 17:21:16 Shawn [facility] XR SHOULDER 2+ VW RIGHT 2020-05-27 17:21:16 Shawn [facility] XR WRIST 3+ VW LEFT 2020-05-27 17:21:16 Hailey Escobarthia [facility] COVID-19 (ID NOW RAPID 2020-04-09 16:05:00 vUaldo [facility] TESTING) [facility] URINALYSIS 2020-04-09 15:53:00 Uvaldo [facility] o f [facility] ADC ONLY - FERN TEST 2020-04-09 15:53:00 Olman Sheth [facility] [QL] CMP W/EGFR 2020-03-24 00:00:00 [facility] [Q] BILE ACIDS, 2020-03-24 00:00:00 [facility] FRACTIONATED AND TOTAL, [QL] CULTURE, URINE, 2020-03-24 00:00:00 [facility] ROUTINE US PELVIS > 14 2020-03-11 21:08:41 Joey Mendoza [facility] ADC ONLY - FERN TEST 2020-03-11 19:03:00 Joey [facility] CONSENT/REFUSAL FOR 2020-03-11 17:53:01 Doctor Unassigned, [facility] DIAGNOSIS AND TREATMENT [facility] . [facility] - 2020-03-09 00:00:00 [facility] COVID-19/SARS-Cov-2 NOTICE OF PRIVACY 2020-03-07 01:17:26 Doctor Unaaurelio, [facility] PRACTICES [place] [facility] BASIC METABOLIC PANEL (NA, 2020-03-07 01:11:00 Mona Saxena [facility] K, CL, CO2, GLUCOSE, BUN, Medica l Branch CREATININE, CA) CBC WITH DIFFERENTIAL 2020-03-07 01:11:00 Mona Sax[facility] COVID-19 (ID NOW RAPID 2020-03-07 01:11:00 Mona Saxena [facility] TESTING) Medical Branch CONSENT/REFUSAL FOR 2020-03-06 15:19:43 Doctor Unasssally, [facility] DIAGNOSIS AND TREATMENT [place] [facility] [Q] GLUCOSE, GESTATIONAL 2020-02-18 00:00:00 [facility] SCREEN (50G)-130 CUTOFF [QL] CBC (INCLUDES 2020-02-18 00:00:00 [facility] DIFF/PLT) NOTICE OF PRIVACY 2020-02-08 02:22:40 Doctor Unassigned, [facility] PRACTICES [place] [facility] CONSENT/REFUSAL FOR 2020-02-08 02:22:25 Doctor Unassigned, [facility] DIAGNOSIS AND TREATMENT [place] [facility] EKG w/Rhythm Strip 2020-01-21 00:00:00 [facility] [QL] URINALYSIS, COMPLETE 2020-01-21 00:00:00 [facility] [Q] GLUCOSE, GESTATIONAL 2020-01-21 00:00:00 [facility] SCREEN (50G)-130 CUTOFF [QL] CBC (INCLUDES 2020-01-21 00:00:00 [facility] DIFF/PLT) [QL] CULTURE, URINE, 2020-01-21 00:00:00 [facility] ROUTINE . [facility] - Affirm VPIII 2020-01-15 00:00:00 [facility] (BV Panel) URINALYSIS 2019-12-15 01:02:00 Garrett Lares [facility] LIPASE 2019-12-14 23:44:00 Mg Stallworth [facility] TROPONIN I 2019-12-14 23:44:00 Mg Stallworth [facility] COMP. METABOLIC PANEL 2019-12-14 23:44:00 Mg Stallworth [facility] ([id number]) [facility] CBC WITH DIFFERENTIAL 2019-12-14 23:44:00 Mg St[facility] PROTHROMBIN TIME / INR 2019-12-14 23:44:00 Mg Stallworth [facility] ACTIVATED PARTIAL THRMPLAS 2019-12-14 23:44:00 Mg Stallworth [facility] CORONAVIRUS COVID-19 2019-12-14 23:44:00 Mg Stallworth [facility] TESTING Medical Branch NOTICE OF PRIVACY 2019-12-14 21:11:25 Doctor Huey Mendes [facility] PRACTICES [place] [facility] CONSENT/REFUSAL FOR 2019-12-14 21:08:11 Doctor Orestes Mendes [facility] DIAGNOSIS AND TREATMENT [place] [facility] [Q] [id number] 2019-11-30 00:00:00 [facility] DEHYDROGENASE, QUANT. [...] (BV Panel) URINALYSIS 2019-11-27 15:14:00 Suman Sun [place] o f [facility] US PELVIS > 14 2019-11-27 15:05:58 Suman Sun [facility] [place] CONSENT/REFUSAL FOR 2019-11-27 14:10:39 Doctor Orestes Mendes [facility] DIAGNOSIS AND TREATMENT [place] [facility] ASSIGNMENT OF BENEFITS 2019-11-16 14:34:05 Doctor Vaughn, [facility] FLU VACC ([id number]), 6+ 2019-11-16 14:11:55 Olman Sheth [facility] MONTHS, IM, QUAD Medical Branch MEDICATION CORRESPONDENCE 2019-10-28 06:01:00 Doctor Vaughn, [facility] [place] [facility] POCT URINALYSIS 2019-10-22 19:04:00 Fernandez Stiles [facility] POCT URINALYSIS 2019-10-01 16:48:00 Fernandez Stiles [facility] US FIRST 2019-09-16 14:37:56 Mg Stallworth [facility] TRIMESTER LESS THAN 14 Medical B ranch WEEKS WITH TRANSVAGINAL HEPATIC FUNCTION PANEL 2019-09-16 12:48:00 Mg Stallworth [facility] ([id number]) (ALB,T.PRO,BILI Medical Branch T,BU/BC,ALT,AST,ALK PHOS) BASIC METABOLIC PANEL (NA, 2019-09-16 12:48:00 Mg Stallworth [facility] K, CL, CO2, GLUCOSE, BUN, Medica l Branch CREATININE, CA) TOTAL BETA HCG ASSAY 2019-09-16 12:48:00 Mg Stallworth [facility] CBC WITH DIFFERENTIAL 2019-09-16 12:48:00 Mg Stall[facility] PROTHROMBIN TIME / INR 2019-09-16 12:48:00 Mg Stallworth [facility] ACTIVATED PARTIAL THRMPLAS 2019-09-16 12:48:00 Mg Stallworth [facility] HB ABO GROUPING 2019-09-16 12:48:00 Mg Stallworth [place] o [facility] URINALYSIS 2019-09-16 12:35:00 Mg Stallworth [place] [facility] POCT TEST 2019-09-16 12:35:00 Mg Stallworth [facility] CONSENT/REFUSAL FOR 2019-09-16 12:18:18 Doctor Ward[facility]iser [facility] DIAGNOSIS AND TREATMENT [place] [facility] NOTICE OF PRIVACY 2019-09-09 19:06:44 Doctor Vaughn, [facility] PRACTICES [place] [facility] CONSENT/REFUSAL FOR 2019-09-09 19:06:32 Doctor Vaughn [facility] DIAGNOSIS AND TREATMENT [place] [facility] CBC WITH DIFFERENTIAL 2019-09-03 22:05:00 [facility] RUBELL[facility] S[facility]EN IGG 2019-09-03 22:05:00 Fernandez Stiles [facility] VZV ANTIBODY SCREEN 2019-09-03 22:05:00 Fernandez Stiles [facility] HEPATITIS B SURFACE 2019-09-03 22:05:00 [facility] ANTIGEN [facility] GC & CHLAMYDIA AMPLIFIED 2019-09-03 22:05:00 Fernandez Stiles [facility] ASSAY [facility] PAP SMEAR-LIQUID BASED-CP 2019-09-03 22:05:00 Fernandez Stiles [facility] HIV 1/2 AG-AB WITH REFLEX 2019-09-03 22:03:00 Fernandez Stiles [facility] GALV ONLY - SYPHILIS 2019-09-03 22:03:00 Fernandez Stiles [facility] IGG/IGM [facility] HB ABO GROUPING 2019-09-03 21:40:00 Fernandez Stiles [facility] POCT URINALYSIS W/O 2019-09-03 20:42:00 Fernandez Stiles Uni [facility] SPECIFIC GRAVITY [facility] POCT TEST 2019-09-03 20:40:00 Fernandez Stiles Uni [facility] History of Tonsillectomy [facility] History of Dilation And [facility] Curettage History of Appendectomy [facility] Plan of Care Planned Activity Planned Date Details Comments Source Future Scheduled Test 2022-10-08 COVID-[address] [facility] 00:58:09 (#1) [code = COVID-19 VACCINE (#1)] Future Scheduled Test 2022-10-08 Hepatitis C Method [facility] 00:58:09 screening (procedure) [code = 165963005] Future Scheduled Test 2022-10-08 Screening for [facility] 00:58:09 malignant neoplasm of cervix (procedure) [code = 582393002] Future Scheduled Test 2022-10-08 INFLUENZA VACCINE [facility] 00:58:09 [code = INFLUENZA VACCINE] Future Scheduled Test 2020-03-21 . [facility] 00:00:00 COVID-19/SARS-Cov-2 [code = . [facility] - COVID-19/SARS-Cov-2 ] Diagnostic Test 2020-01-15 . [facility] Affirm [facility] Pending 00:00:00 VPIII (BV Panel) [code = . [facility] - Affirm VPIII (BV Panel)] Encounters Start End Encounter Admission Attending Care Care Encounter Source Date/Time Date/Time Type Type Clinicians Facility Department ID 2022-09-11 Outpatient [facility] [id number] [place] 13:44:[id number] [place] [address] 2021-06-25 Emergency [facility] [id number] Univers 06:39:02 ity of [facility] 2021-06-25 Emergency [facility] [id number] Univers 01:14:06 ity of [facility] 2021-06-23 Outpatient P [facility] JOHN [id number] Univers 12:39:51 ity of [facility] 2021-06-23 Outpatient P [facility] JOHN [id number] Univers 07:27:22 ity of [facility] 2021-06-23 Outpatient P [facility] JOHN [id number] Univers 07:22:37 ity of [facility] 2021-06-23 Emergency [facility] [id number] Univers 06:14:22 ity of [facility] 2021-06-23 Emergency [facility] [id number] Univers 06:13:02 ity of [facility] 2021-06-23 Emergency [facility] [id number] Univers 00:55:53 ity of [facility] 2021-06-22 Emergency [facility] [id number] Univers 18:30:20 ity of [facility] 2022-09-04 2022-09-06 Emergency [facility] [id number] Methodi 14:16:00 13:56:00 Ирина Humphreys [id number] Micheal Fay [id number] Hospita .[id number] l .8 2022-09-04 2022-09-06 Outpatient [facility] [id number] [place] 00:00:00 00:00:00 MICHEAL [address] 2022-09-05 2022-09-05 Anesthesia Isra Sky [id number] Methodi 16:47:00 18:12:00 Event Teresa Blas [id number] [id number] Hospit a .[id number] l .8 2022-09-05 2022-09-05 Surgery Omar Priest 1.2.840.1 [id number] Methodi 15:50:00 17:35:00 A. [id number] [address] 3.430.2.7 Hospit a .3.075080 l .8 2022-07-07 2022-07-07 Out[facility] [id number] Univers 11:20:00 11:29:43 LAUREN luiza [facility] 2022-07-07 2022-07-07 Urgent Lauren Stovall [facility] .2.840.11 4 [id number] Univers 11:20:00 11:29:[address] [facility] 350.1.13.10 itluiza [facility] 4.2.7.2.686 Wilbert as ASIM?BLEA [phone] [address] OFFICE [facility] 2022-02-21 2022-02-21 Urgent [facility] 1.2.840.114 [id number] Univers 13:20:00 13:40:00 Care [facility] 350.1.13.10 i ty of [place] 4.2.7.2.686 Wilbert as ASIM?BLEA [phone] [address] OFFICE [facility] 2022-02-21 2022-02-21 Outpatient R QUINTEN [facility] [id number] Univers 13:20:00 13:20:00 CHARO joseph f [facility] 2021-12-26 2021-12-26 [facility] [id number] Univers 15:40:00 15:56:22 MADHURI leija [facility] 2021-12-26 2021-12-26 Urgent Song, [facility] 1.2.840.114 [id number] Univers 15:40:00 15:56:[address] [facility] 350.1.13.10 it y of [place] 4.2.7.2.686 Wilbert as ASIM?BLEA [phone] [address] MEDICAL OFFICE BUILDING 2021-12-26 2021-12-26 Orders Doctor LOUISE 1.2.840.114 [id number] Univers 00:00:00 00:00:00 Only Unassigned, ADRIANO 350.1.13.10 ity of [place] [facility] 4.2.7.2.686 Wilbert as [phone] [address] 2021-04-05 2021-04-05 Case Jhon [facility] 1.2.982.290 [id number] Univers 00:00:00 00:00:00 Management Liv Sanjay 350.1.13.10 ity of [place] [phone] [address] 2021-04-04 2021-04-04 Office Jhon [facility] 1.2.446.970 [id number] [id number] Univers 14:52:07 15:38:17 Visit Liv Rai 350.1.13.10 i ty of [place].2.7.2.686 [place] [phone] [address] 2021-04-04 2021-04-04 Outpatient R JHON [facility] [id number] Univers 14:30:00 14:30:00 LIV heladio [facility] 2021-04-04 2021-04-04 Orders Doctor LOUISE 1.2.840.114 [id number] Univers 00:00:00 00:00:00 Only Unassigned, ADRIANO 350.1.13.10 ity of [place] [facility] 4.2.7.2.686 Wilbert as [id number] [address] 2021-02-13 2021-02-13 Urgent Provider, [facility] 1.2.596.679 [id number] 10:32:50 10:52:50 Care [facility] 350.1.13.10 Care [place] 4.2.7.2.686 Professio [phone] [place] [address] Office Building One 2021-02-13 2021-02-13 Urgent Provider, [facility] 1.2.840.114 [id number] Univers 10:32:50 10:52:50 Care Anedoug, [facility] 350.1.13.10 ity of [place] 4.2.7.2.686 Wilbert as Professio [phone] [address] Office Building One 2021-02-13 2021-02-13 Outpatient R SHAWN [facility] [id number] Univers 10:40:00 10:40:00 FRANSISCO itluiza [facility] 2020-12-26 2020-12-26 Outpatient R OLMAN SHETH [facility] [id number] Univers 09:30:00 09:30:00 ity [facility] 2020-12-10 2020-12-10 Urgent Provider, [facility] 1.2.053.220 [id number] 09:39:01 10:40:28 Care [facility] 350.1.13.10 Care [place] 4.2.7.2.686 Professio [phone] [place] [address] Office Building One 2020-12-10 2020-12-10 Urgent Provider, [facility] 1.2.840.114 [id number] Univers 09:39:01 10:40:28 Care [facility] 350.1.13.10 ity of [place] 4.2.7.2.686 Wilbert as Professio [phone] [address] Office Building One 2020-12-10 2020-12-10 Outpatient R ALESSANDRO [facility] [id number] Univers 09:40:00 09:40:00 LEATHA [facility] 2020-12-09 2020-12-09 Laboratory Lab, [facility] 1.2.840.114 [id number] 15:03:11 15:23:11 Only Fam Pob I Health 350.1.13.10 [place] 4.2.7.2.686 Professio [phone] nal [address] [facility] One 2020-12-09 2020-12-09 Laboratory Lab, Adc Fam Pob I [facility] 1.2. 840.114 [id number] Univers 15:03:11 15:23:11 Only Fransisco Escobar 350.1.13.10 ity of [place] 4.2.7.2.686 Wilbert as Professio [phone] [facility] [address] [facility] 2020-12-09 2020-12-09 Outpatient R TALHA, [facility] [id number] Univers 11:00:00 11:00:00 GADIEL ity of [facility] 2020-12-01 2020-12-01 Telephone Olman Sheth [facility] 1.2.840.114 [id number] Univers 00:00:00 00:00:00 Leo Rai 350.1.13.10 i ty of [place] [phone] Al dical nal 134 [facility] 2020-12-01 2020-12-01 Telephone Hallie [facility] 1.2.840.114 [id number] Univers 00:00:00 00:00:00 Jose R Rai 350.1.13.10 ity of [place].2.7.2.[place] [phone] Al dical nal 092 [facility] 2020-11-29 2020-11-29 [facility] 1.2.840.114 [id number] 14:53:58 15:44:52 Visit Jose R Blayne Sanjay 350.1.13.10 [place] 4.2.7.2.686 Professio [phone] [address] 2020-11-29 2020-11-29 [facility] 1.2.840.114 [id number] [facility] 14:53:58 15:44:52 Visit Jose R Cisneros Sanjay 350.1.13.10 ity of [place].2.7.2.686 [place] [phone] Al dical nal 092 [facility] 2020-11-29 2020-11-29 Outpatient R JOSE R STERLING [facility] [id number] Univers 15:00:00 15:00:00 HALLIEJOSE R Shukla ity of [facility] 2020-11-21 2020-11-21 Office Olman Sheth [facility] 1.2.811.498 [id number] Univers 08:29:06 10:03:28 Visit Leo Rai 350.1.13.10 i ty of [place].2.7.2.686 [place] [phone] Al dical nal 134 [facility] 2020-11-21 2020-11-21 Outpatient R OLAMN SHETH [facility] [id number] Univers 08:30:00 08:30:00 ity of [facility] 2020-11-21 2020-11-21 Letter Uvaldo Olman [facility] 1.2.761.321 [id number] Univers 00:00:00 00:00:00 (Out) Leo Rai 350.1.13.10 i ty of [place].2.7.2.686 [place] [phone] Al dical nal 134 [facility] 2020-11-21 2020-11-21 Orders Doctor LOUISE 1.2.840.114 [id number] Univers 00:00:00 00:00:00 Only Unassigned, ADRIANO 350.1.13.10 ity of [place] [facility] 4.2.7.2.686 Wilbert as [phone] [facility] 009 Roy 2020-11-15 2020-11-15 Patient Felice [facility] 1.2.840.114 [id number] Univers 00:00:00 00:00:00 Outreach Kvng PRIMARY 350.1.13.10 i ty of [facility] 4.2.7.2.686 [place] [phone] Al dicnc 388 [address] 2020-11-09 2020-11-09 Emergency Orlando [facility] 1.2.840.114 [id number] Univers 12:59:00 14:50:00 Ami Rai 350.1.13.10 ity of [place].2.7.2.686 [place] [phone] [facility] 084 Roy 2020-11-09 2020-11-09 Telephone Nurse, Enio [facility] 1.2.840.114 [id number] Univers 00:00:00 00:00:00 Urgent Care Health 350.1.13.10 ity of Surgical 4.2.7.2.686 Wilbert as Specialti [phone] Al sherita es 370 [facility] 2020-10-24 2020-10-24 Office Olman Sheth WIFERNANDO 1.2.812.868 [id number] [id number] Univers 08:55:05 10:04:55 Visit Cam [place] 350.1.13.10 i ty of [place] 4.2.7.2.686 [place] [phone] Al dical nal 134 [facility] 2020-10-24 2020-10-24 Outpatient R OLMAN SHETH [facility] [id number] Univers 09:00:00 09:00:00 ity of [facility] 2020-10-22 2020-10-22 Urgent Provider, Enio [facility] 1.2.840.114 [id number] Univers 12:05:47 13:21:43 [facility] 350.1.13.10 ity of [place] 4.2.7.2.686 Wilbert as Professio [phone] [facility] [address] Office Building One 2020-10-22 2020-10-22 Outpatient Cr FRANCOIS [facility] [id number] Univers 12:00:00 12:00:00 LEATHA ity of [facility] 2020-10-19 2020-10-19 Emergency On license of [facility] 1.2.427.836 [id number] [id number] Univers 19:31:00 22:26:00 Garrett S [place] 350.1.13.10 ity of [place].2.7.2.686 [place] [phone] [facility] [address] [place] [address] 2020-10-19 2020-10-19 Telephone Olman Sheth [facility] 1.2.840.114 [id number] Univers 00:00:00 00:00:00 Cam [place] 350.1.13.10 i ty of [place] 4.2.7.2.686 [place] [phone] Al dical nal [address] Building 2020-08-20 2020-08-20 Outpatient R ALESSANDRO [facility] [id number] Univers 19:00:00 19:00:00 LEATHA leija [facility] 2020-07-27 2020-07-27 Appointsumaya HEAD [facility] Obstetrics [id number] [place] 13:30:00 13:30:00 t; Mesfin TAVERAS and Von HEAD, Gynecology Amira Johnson M.D. Clinic 2020-07-11 2020-07-11 Appointsumaya [facility] [id number] [place] 15:00:00 15:00:00 t; Mesfin VELASCO ans ASHA, M.D. 2020-07-06 2020-07-06 Amauri [facility] [id number] [place] 13:00:00 13:00:00 t; Garett FLORES M.D. Gynecology Amira Du M.D. Clinic 2020-07-05 2020-07-05 [facility] [id number] [place] 09:00:00 09:00:00 t; Mesfin VELASCO ans ASHA, M.D. 2020-07-04 2020-07-04 Amauri GORMAN, [facility] [id number] [place] 15:30:00 15:30:00 t; ADULT, HEMOPHILIA Hemophilia Physici HEMOPHILIA and ans Thrombophil [facility] 2020-07-01 2020-07-01 Urgent Provider, [facility] 1.2.840.114 [id number] Univers 18:18:44 18:38:44 Care Domingo [facility] 350.1.13.10 [facility] 4.2.7.2.686 Wilbert as Professio [phone] Al dical nal [address] Office Building One 2020-07-01 2020-07-01 Outpatient R DOMINGO [facility] [id number] Univers 18:20:00 18:20:00 LOUISE leija [facility] 2020-06-29 2020-06-29 Appointsumaya BERNAL [facility] Women's [id number] [place] 14:30:00 14:30:00 t; [facility] CASTRO M.D. [place] jose Toure [facility] 2020-06-06 2020-06-06 Urgent Provider, [facility] 1.2.840.114 [id number] Univers 10:43:16 11:42:30 Care Hailey [facility] 350.1.13.10 ity of [place] 4.2.7.2.686 Wilbert as Professio [phone] [address] Office Building [facility] 2020-06-06 2020-06-06 Outpatient R [facility] [id number] Univers 10:40:00 10:40:00 ity [facility] 2020-06-01 2020-06-01 Appointmen AMY SILVERIO [facility] [id number] [place] 10:45:00 10:45:00 t; JJ SILVERIO Phy sici GREGORY, M.D. [facility] Mesfin 2020-05-27 2020-05-27 [facility] 1.2.840.114 [id number] Univers 11:49:39 23:59:00 Encounter Fransisco Rai 350.1.13.10 ity of [place] 4.2.7.2.686 [facility] [phone] [address] 2020-05-27 2020-05-27 Urgent Provider, [facility] 1.2.840.114 [id number] Univers 10:15:33 10:35:33 Care Hailey [facility] 350.1.13.10 ity of [place] 4.2.7.2.686 Wilbert as Professio [phone] [address] Office Building One 2020-05-27 2020-05-27 Outpatient R [facility] [id number] Univers 10:20:00 10:20:00 ity [facility] 2020-05-27 2020-05-27 Telephone Provider, [facility] 1.2.840.114 [id number] Univers 00:00:00 00:00:00 Ang [facility] 350.1.13.10 ity of Care [place] 4.2.7.2.686 Wilbert as Professio [phone] Al dical nal 044 [address] Office Building One 2020-05-13 2020-05-13 Telephone Frank [facility] 1..450.738 [id number] 4136 Univers 00:00:00 00:00:00 Julissa [facility] 350.1.13.10 ity of [place] 4.2.7.2.686 Wilbert as Professio [phone] Al dical nal 044 [address] Office Building One 2020-05-11 2020-05-11 Laboratory Lab, Adc Fam Pob I [facility] 1.. 840.114 [id number] Univers 16:52:53 17:12:53 Only Fransisco Escobar 350.1.13.10 ity of [place] 4.2.7.2.686 Wilbert as Professio [phone] Al dical nal 044 Roy Office [facility] One 2020-05-11 2020-05-11 Outpatient R [facility] [id number] Univers 17:00:00 17:00:00 ity of [facility] 2020-04-29 2020-04-29 Appointmen MYA, C/S [facility] UTP [id number] [place] 10:00:00 10:00:00 t; OBABHI, Phys ici C/S ans 2020-04-27 2020-04-27 Appointmen JOHANNY, [facility] UTP [id number] [place] 13:30:00 13:30:00 t; Mando HERNANDEZ i, M.D. ans JORDAN, M.D. 2020-04-25 2020-04-25 Outpatient Raju_P [facility] [id number] [place] 10:39:00 10:39:00 0831 [facility] 2020-04-14 2020-04-14 Emergency E PATY, [facility] 7507 [facility] 22:58:00 22:58:00 RALPH 2020-04-09 2020-04-09 [facility] ShethOlman [facility] 1.2.840.114 [id number] Univers 09:52:00 12:23:00 Encounter Cam Sanjay 350.1.13.10 ity of [place].2.686 [place] [phone] [place] 162553 Branch 2020-03-31 2020-03-31 Appointmen AMY SOLIS Obstetrics [id number] [place] 14:30:00 14:30:00 t; Sindhu STEWART i, D.O. Gynecology ans Amira STEWART D.O. Clinic 2020-03-31 2020-03-31 Appointmen [employer] GARDENING SPECIALIST, UTP UTP [id number] [place] 13:00:00 13:00:00 t; URBAN GARDENING SPECIALIST, ROOM3 Phy sici ROOM3 [facility] 2020-03-27 2020-03-28 Emergency E DAVID, [facility] 7506 [facility] 21:39:00 01:16:00 SUNEET 2020-03-24 2020-03-24 Appointmen URBAN GARDENING SPECIALIST, [facility] UTP [id number] 2 [place] 15:15:00 15:15:00 t; URBAN GARDENING SPECIALIST, ROOM2 Phy sici ROOM2 [facility] 2020-03-24 2020-03-24 AppointReji Casillas UTP Obstetrics 6 [id number] [place] 13:30:00 13:30:00 t; Mesfin COPELAND and Sonya Menodza M.D. Gynecology [facility] 2020-03-11 2020-03-11 [facility] 1.2.840.114 7 [id number] Univers 13:19:00 16:40:00 Encounter Joey Rai 350.1.13.10 ity of [place] [facility].7.2.686 [facility] [phone] [facility] 083 Roy 2020-03-11 2020-03-11 Orders Doctor GIL 1.2.840.114 [id number] Univers 00:00:00 00:00:00 Only Unassigned, ADRIANO 350.1.13.10 ity of [facility] 4.2.7.2.686 Wilbert [phone] [facility] 009 Branch 2020-03-09 2020-03-09 Appointmen VA, AMY UTP [id number] [place] 11:30:00 11:30:00 t; Claude VALE M.D. ans Mesfin VALE 2020-03-06 2020-03-06 [facility] 1.2.139.848 [id number] Univers 19:46:10 22:17:00 Mona Rai 350.1.13.10 i ty of [place] 4.2.7.2.686 [facility] [phone] [address] 2020-03-06 2020-03-06 Emergency Carson, [facility] 1.2.029.957 [id number] 7324 Univers 10:40:51 12:09:00 Mona Rai 350.1.13.10 i ty of [place] 4.2.7.2.686 [facility] [phone] [address] 2020-02-18 2020-02-18 Appointmen STEVENSON [facility] Obstetrics [id number] [place] 15:00:00 15:00:00 t; Mesfin STONE and Ph ewelina GAMINO, Gynecology ans Amira STONE M.D. [facility] 2020-02-12 2020-02-12 Appointmen URBAN GARDENING SPECIALIST, [facility] Obstetrics [id number] [place] 13:00:00 13:00:00 t; URBAN GARDENING SPECIALIST, ROOM3 and Sonya zurita ROOM3 Gynecology ans [facility] 2020-02-07 2020-02-07 Emergency [facility], [facility] 1.2.740.390 [id number] Univers 21:34:00 22:09:00 Garrett Rai 350.1.13.10 ity of [place] 4.2.7.2.686 [facility] [phone] [address] 2020-02-07 2020-02-07 Orders Doctor GIL 1.2.840.114 [id number] Univers 00:00:00 00:00:00 Only Unassigned, ADRIANO 350.1.13.10 ity of [place] [facility] 4.2.7.2.686 [facility] [phone] [place] [address] Branch 2020-02-04 2020-02-04 Appointmen TOMEKA, [facility] [id number] [place] 13:30:00 13:30:00 t; ELIF ECKERT, Mesfin Dahl M.D. 2020-01-21 2020-01-21 Appointmen MALLY, [facility] UTP [id number] [place] 16:00:00 16:00:00 t; WALK-INS Physi ci MALLY, ans WALK-INS 2020-01-21 2020-01-21 Appointsumaya WILSON, [facility] Obstetrics [id number] [place] 15:30:00 15:30:00 t; FITZ and Nick Chan iO. Gynecology ans Amira BYRNES D.O. Clinic 2020-01-15 2020-01-15 Appointmen URBAN GARDENING SPECIALIST, [facility] UTP [id number] [place] 13:00:00 13:00:00 t; URBAN GARDENING SPECIALIST, ROOM4 Phy sici ROOM4 [facility] 2020-01-14 2020-01-14 Appointsumaya ESPOSITO, [facility] Obstetrics [id number] [place] 13:45:00 13:45:00 t; Mesfin LIN and Ph ewelina ESPOSITO, Gynecology [facility] Amira LIN M.D. [facility] 2020-01-13 2020-01-13 Appointsumaya TEJADA, [facility] Psychiatry [id number] [place] 08:45:00 08:45:00 t; BURKE, Outpatient P jhonny TEJADA M.D. [facility] CHINA TURK M.D. 2020-01-05 2020-01-05 Outpatient P [facility] [id number] Univers 10:30:00 10:30:00 ity [facility] 2019-12-30 2019-12-30 Outpatient P [facility] [id number] Univers 11:30:00 11:30:00 ity [facility] 2019-12-29 2019-12-29 Case Lucero [facility] 1..473.729 [id number] Univers 00:00:00 00:00:00 Management Elsa Y HEALTH 350.1.13.10 ity of CL[place]2.[place].2.[place] [phone] [address] 2019-12-29 2019-12-29 Shahid Page [facility] 1.2.840.11 4 [id number] Univers 00:00:00 00:00:00 W Y HEALTH 350.1.13.10 i ty of CLINICS 4.2.7.2.686 [place] [phone] [address] 2019-12-28 2019-12-28 Amauri STEPHENS, [facility] [id number] [place] 13:30:00 13:30:00 t; YARI, Claude STEPHENS M.D. ans Mesfin GREENBERG 2019-12-28 2019-12-28 Appointmen URBAN GARDENING SPECIALIST, [facility] [id number] [place] 10:45:00 10:45:00 t; URBAN GARDENING SPECIALIST, ROOM3 Phy sici ROOM3 [facility] 2019-12-28 2019-12-28 Appointmen OB/MD, [facility] UTP [id number] [place] 10:00:00 10:00:00 t; OB/, Phys [facility] 2019-12-24 2019-12-24 Outpatient R EMILIE [facility] [id number] Univers 11:30:00 11:30:00 ANAI it y of SJUAN MANUEL [facility] 2019-12-24 2019-12-24 Telephone Shahid Arredondo ..840.11 4 [id number] Univers 00:00:00 00:00:00 [facility] 350.1.13.10 i ty of CLINICS 4.2.7.2.686 [place] [id number] [address] 2019-12-22 2019-12-22 Abstract Linsey, [facility] 1..840.114 [id number] Univers 00:00:00 00:00:00 Fernandez Panchal U[employer] GARDENING SPECIALIST 350.1.13.[address] [facility] 4.2.7.2.686 Wilbert as MATERNAL [phone] Med ical & CHILD 107 [facility] 2019-12-19 2019-12-19 RefOlman Valiente [facility] 1..169.099 4281 [id number] Univers 00:00:00 00:00:00 Leo [place] 350.1.13.10 i ty of [place] 4.2.7.2.686 [place] Profess[place] [phone] [address] 2019-12-18 2019-12-18 Jacket Preparer Ultrasound, Adc [facility] 1.2 .840.114 [id number] Univers 13:54:31 14:54:31 Visit Carina Meehan [place] 350.1.13.10 ity of [place] 4.2.7.2.686 [place] [phone] [address] 2019-12-18 2019-12-18 Outpatient P [facility] [id number] Univers 14:00:00 14:00:00 ity [facility] 2019-12-17 2019-12-17 Refill Olman Sheth [facility] 1.2.982.997 [id number] Univers 00:00:00 00:00:00 Cam [place] 350.1.13.10 i ty of [place] 4.2.7.2.686 [place] [id number] [address] 2019-12-14 2019-12-14 [facility] 1..184.469 [id number] Univers 18:22:18 21:48:00 Garrett Medrano [place] 350.1.13.10 ity of [place].2.7.2.686 [place] [phone] [address] 2019-12-09 2019-12-09 Outpatient P PHAN [facility] [id number] Univers 13:00:00 13:00:00 BOBI it y of S, ZAMBRANO [facility] 2019-12-09 2019-12-09 Appointmen TERRELL, [facility] Psychiatry [id number] [place] 10:30:00 10:30:00 t; BURKE, Outpatient P jhonny TEJADA M.D. Clinic - CHINA Browne M.D. 2019-12-08 2019-12-08 Telephone Olman Sheth [facility] ..840.114 [id number] Univers 00:00:00 00:00:00 Cam [place] 350.1.13.10 i ty of [place] 4.2.7.2.686 [place] [phone] [address] 2019-12-04 2019-12-04 Outpatient R [facility] [id number] Univers 11:00:00 11:00:00 ity [facility] 2019-12-04 2019-12-04 Telemedici Fellow, [facility] U NIVERSIT ..840.114 [id number] Univers 07:16:52 07:46:52 ne Visit Justice Gray [facility] 350.1.13.10 ity of Ramos Stan Michel [facility] 4.2.7.2.686 [place] [phone] [address] 2019-12-04 2019-12-04 Abstract Linsey, [facility] 1.2.840.114 [id number] Univers 00:00:00 00:00:00 Fernandez Panchal U[employer] GARDENING SPECIALIST 350.1.13.[address] [facility] [id number] [place]bert as MATERNAL [phone] Med ical & [place] 107 [facility] [place]12-02 2019-12-02 Outpatient P [facility] [id number] Univers 11:15:00 11:15:00 KEYA ity [facility] 2019-12-02 2019-12-02 Jacket Preparer [facility]tras[facility] 1.2 .840.114 [id number] Univers 10:11:12 10:41:12 Visit Juan Manuel Whitten [employer] 350.1. 13.[address] [facility] [id number] Wilbert as MATERNAL [phone] Med ical & CHILD 369 [facility] [place]-12-02 2019-12-02 Telemedici Consults, Clinton Vance Pn Geneti cs [facility] 1.2.840.114 [id number] Univers 07:48:49 08:03:49 ne Visit Keya Mederos [employer] 350.1.13. 10 ity General acute hospital [id number] [place]bert as MATERNAL [phone] [facility] & CHILD 109 [facility] [place] 2019-11-30 2019-11-30 Appointmen [facility] Obstetrics [id number] [place] 14:00:00 14:00:00 t; Mindy AC. and Ph ysici BLU, Gynecology Amira May M.D. [facility] 2019-11-27 2019-11-27 Emergency X SUMAN SUN [facility] ERT [id number] Univers 09:28:09 10:48:00 ity of [facility] 2019-11-27 2019-11-27 Emergency Suman Sun [facility] 1.2.840.114 [id number] Univers 09:28:09 10:48:00 T Allen 350.1.13.10 [place] [phone] [facility] [address] [place] [address] 2019-11-24 2019-11-24 Telephone Olman Sheth [facility] 1.2.840.114 [id number] Univers 00:00:00 00:00:00 Cam Allen 350.1.13.10 [id number] [phone] Al dical nal 134 [facility] 2019-11-23 2019-11-23 Telephone Olman Sheth [facility] 1.2.840.114 [id number] Univers 00:00:00 00:00:00 Cam Allen [id number] [id number] [phone] Al dicnc nal 134 [facility] 2019-11-19 2019-11-19 Outpatient R AKIN[place]ARDO, [facility] [id number] [facility] 09:30:00 09:30:00 FERNANDEZ leija o f [facility] 2019-11-18 2019-11-18 Telephone Olman Sheth [facility] 1.2.840.114 [id number] Univers 00:00:00 00:00:00 Cam Allen 350.1.13.10 i ty [place] [phone] Al dical nal 134 [facility] 2019-11-16 2019-11-16 Jacket Preparer Bebe Maldonado Lab Main [facility] 1.2.8 40.114 [id number] Univers 09:31:47 09:46:47 Visit Olman Sheth Leo Allen 350.1.13.10 [place] [phone] Al dical nal 353 [facility] 2019-11-16 2019-11-16 Initial Olman Sheth [facility] 1.2.919.331 [id number] Univers 07:53:29 09:11:59 Cam Allen 350.1.13.10 ity of Visit [place] 4.2.7.2.686 [place] Robbins [phone] Al dical nal 134 [facility] 2019-11-16 2019-11-16 Outpatient R OLMAN SHETH [facility] [id number] Univers 08:00:00 08:00:00 ity of [facility] 2019-11-16 2019-11-16 Orders Doctor LOUISE 1.2.840.114 [id number] Univers 00:00:00 00:00:00 Only Unassigned, ADRIANO 350.1.13.10 ity of [place] [facility] 4.2.7.2.686 Wilbert as [phone] [facility] 009 Roy 2019-11-12 2019-11-12 [facility] 1.2.840.114 [id number] Univers 00:00:00 00:00:00 Fernandez Panchal [employer] SPECIALIST 350.1.13.10 ity of REGIONAL 4.2.7.2.686 [place] as MATERNAL [phone] Med ical & CHILD [address] [place] [address] 2019-10-30 2019-10-30 [facility]phone [facility] 1.2.840.114 [id number] Univers 00:00:00 00:00:00 Gold Cochran [employer] SPECIALIST 350.1.13.10 it y of REGIONAL 4.2.7.2.686 [place] as MATERNAL [phone] Med ical & CHILD [address] [place] [address] 2019-10-28 2019-10-28 Orders Doctor LOUISE 1.2.840.114 [id number] Univers 00:00:00 00:00:00 Only Unassigned, ADRIANO 350.1.13.10 ity of [place] [facility] 4.2.7.2.686 Wilbert as [phone] [facility] 009 Roy 2019-10-22 2019-10-22 [facility]ine [facility] 1.2.341.987 [id number] Univers 12:58:53 13:21:27 Gold Cochran [employer]ARDEN[employer] SPECIALIST 350.1.13.10 i ty of Visit REGIONAL 4.2.7.2.686 [place] as MATERNAL [phone] Med ical & CHILD [address] [place] [address] 2019-10-22 2019-10-22 Outpatient R ORLANDO [facility] [id number] Univers 13:00:00 13:00:00 GOLD leija [facility] 2019-10-07 2019-10-07 Telephone [facility] 1.2.840.114 [id number] Univers 00:00:00 00:00:00 Gold Dimas [employer]ARD[employer] SPECIALIST 350.1.13.10 it y of REGIONAL 4.2.7.2.686 [place] as MATERNAL [phone] [facility] ical & CHILD [address] [place] [address] 2019-10-06 2019-10-06 Abstract [facility] 1.2.840.114 [id number] Univers 00:00:00 00:00:00 Fernandez C [employer] GARDEN[employer] SPECIALIST 350.1.13.10 ity of REGIONAL 4.2.7.2.686 [place] as MATERNAL [phone] [facility] & CHILD [address] [place] [address] 2019-10-01 2019-10-01 Outpatient R DAYANA [facility] [id number] Univers 10:30:00 11:17:13 TOSHIA heladio [facility] 2019-10-01 2019-10-01 Routine Risk, Olb-Naset-Rc/High [facility] 1. 2.840.114 [id number] Univers 10:25:41 11:17:13 Toshia Anne [employer] GARDEN[employer] SPECIALIST 350.1.13.1 0 ity of Visit REGIONAL 4.2.7.2.686 [place] as MATERNAL [phone] [facility] & CHILD [address] [place] [address] 2019-09-25 2019-09-25 [facility]phone [facility] 1.2.840.114 [id number] Univers 00:00:00 00:00:00 Fernandez Panchal [employer] GARDENING SPECIALIST 350.1.13.10 ity of REGIONAL 4.2.7.2.686 [place] as MATERNAL [phone] [facility] & CHILD [address] [place] [address] 2019-09-21 2019-09-21 Telephone Risk, [facility] 1.2.401.584 [id number] Univers 00:00:00 00:00:00 Ang-Rmchp-N [employer] SPECIALIST 350.1.13.10 ity of p/High REGIONAL 4.2.7.2.686 [place] as MATERNAL [phone] Med ical & CHILD [address] [place] [address] 2019-09-16 2019-09-16 Emergency Stallworth, [facility] 1.2.594.988 [id number] Univers 06:23:27 09:29:00 Mg Rai 350.1.13.10 i ty [place].2.[place] [phone] [address] 2019-09-16 2019-09-16 Orders Doctor LOUISE 1.2.840.114 [id number] Univers 00:00:00 00:00:00 Only Unassigned, ADRIANO 350.1.13.10 ity of [place] [facility] 4.2.7.2.686 [place] as [phone] [facility] 009 Roy 2019-09-10 2019-09-10 Jacket Preparer Lab, Ang-Rmchp [facility] 1.2.840. 114 [id number] Univers 08:27:30 08:37:34 Visit Fernandez Stiles [employer] GARDENING SPECIALIST 350.1.13. [address] [facility] 4.2.7.2.686 Wilbert as MATERNAL [phone] Med ical & CHILD [address] [place] [address] 2019-09-10 2019-09-10 Telephone Linsey [facility] 1.2.840.114 [id number] Univers 00:00:00 00:00:00 Fernandez Panchal [employer] GARDENING SPECIALIST 350.1.13.[address] [facility] 4.2.7.2.686 [place] as MATERNAL [phone] [facility] ical & CHILD [address] [place] [address] 2019-09-09 2019-09-09 Emergency Hemanth, [facility] 1.2.343.592 [id number] Univers 14:54:07 16:49:00 Mona Rai 350.1.13.10 i ty of [place] 4.2.7.2.686 [phone] [address] 2019-09-09 2019-09-09 Nurse LOUISE Rahman 1.2.840.114 [id number] Univers 00:00:00 00:00:00 Triage Elizabeth [place] 350.1.13.10 it y of HOSPITAL 4.2.7.2.686 [place] as [phone] [facility] 019 Roy 2019-09-09 2019-09-09 Orders Doctor LOUISE 1.2.840.114 [id number] Univers 00:00:00 00:00:00 Only Unassigned, ADRIANO 350.1.13.10 ity of [place] [facility] 4.2.7.2.686 Wilbert as [phone] [facility] 009 Roy 2019-09-04 2019-09-04 Emergency X TWIN, [facility] ERT [id number] Univers 18:41:20 21:40:00 GOPI ity of [facility] 2019-09-03 2019-09-03 Initial Akinsipe, [facility] 1.2.740.177 [id number] Univers 13:41:22 15:43:50 Fernandez Panchal [employer] GARDENING SPECIALIST 350.1.13.[address] [facility] 4.2.7.2.686 Wilbert as MATERNAL [phone] Med ical & CHILD [address] [place] [address] 2015-11-03 2015-11-03 Appointmen [place], [facility] Obstetrics [id number] [id number] [place] 09:00:00 09:00:00 t; [place], FELLOW2 and Physic i FELLOW2 Gy[facility] Results Test Description Test Time Test Comments Results Result Comments Source Miscellaneous referral test 2022-09-27 22:54:00 Test Item Value Reference Range Interpretation Comme nts [facility] test name (test code = VWF multimer 2566) [facility] test result (test code = see comment VWF Quantitative Multimer High MW 1730) Multimers ..... ....... 26 %Intermediate M W Multimers .... 51 %Low MW Multime r .............. 23 % VWF Multimer Di stribution: Normal - - - - - - - - - - - - - - - - - - - - - - - - - - - - - - VWF Multimer Interpretation: Normal distribution of multimers; no e vidence of type 2A, Type 2B or plat elet-type von Willebrand defe ct by multimer analysis. Corre lation with Factor VIII activity, other VWF assays and clinical histor y is suggested. =====performing site:[facility], [address] [facility] [id number] 23:22:29 Test Item Value Reference Range Interpretation Comments Case number (test code = [id number]) Surgical pathology See link below for report (test code = PDF Lab Report [id number]) Result status (test code This is Final Report = [id number]) [id number] [facility] [id number] 07:18:00 Test Item Value Reference Range Interpretation Comments Urine culture col/cc Specimen Infor mationSpecimen isolate (test code Source: U rineSpecimen Site: = 64175-3) Clean catch [facility] 12 [id number] 03:04:24 Test Item Value Reference Range Interpretation Comments Ventricular rate (test 53 code = 253) Atrial rate (test code 53 = 255) MI interval (test code 150 = 266) QRSD interval (test 92 code = 260) QT interval (test code 462 = 264) QTC interval (test code 433 = 265) P axis 1 (test code = 34 267) QRS axis 1 (test code = 44 268) T wave axis (test code 25 = 270) EKG impression (test Sinus bradycardia with code = 273) sinus arrhythmia-T wave abnormality, consider anterior ischemia-Abnormal ECG-No previous ECGs available-Electronical ly Signed By Octaviano ARIAS, Cyrus ([id number]) on 09/05/2022 9:04:19 PM [facility] and B [id number] 21:36:04 Test Item Value Reference Range Interpretation Comments SARS-CoV-2 (COVID-19) RNA Not detected [Presence] in Respiratory specimen by ISAAC with probe detection (test code = 03859-9) Whether patient resides in a No congregate care setting (test code = 45327-9) Date and time of symptom onset Unknown (test code = 53317-4) Whether the patient was No hospitalized for condition of interest (test code = 05546-2) Whether the patient was admitted No to intensive care unit (ICU) for condition of interest (test code = 27831-7) Whether patient is employed in a No healthcare setting (test code = 03006-1) Whether the patient has symptoms No related to condition of interest (test code = 88019-6) status (test code = No 99708-2) CYNEDE LORENZANA [facility] [id number] 20:36:00 Test Item Value Reference Range Interpretation Comments POCT PREG (test code = 1605) Negative On board controls acceptable with C Yes Line (test code = 3574) POCT PREG LOT # (test code = 3575) POCT PREG TEST DATE (test code = 3576) [facility] [id number] 20:36:00 Test Item Value Reference Range Interpretation Comments POCT PREG (test code = 1605) Negative On board controls acceptable with C Yes Line (test code = 3574) POCT PREG LOT # (test code = 3575) POCT PREG TEST DATE (test code = 3576) [facility] URINALYSIS W/O SPECIFIC [id number] 20:10:00 Test Item Value Reference Range Interpretation [...] code = 3257) Negative Negative - Negative [facility] URINALYSIS W/O SPECIFIC [id number] 20:10:00 Test Item Value Reference Range Interpretation [...] code = 3257) Negative Negative - Negative [facility] GRP A STREP (MOLECULAR)2021-02-13 15:59:00 Test Item Value Reference Range Interpretation Comments POCT GP A STREP (test code = Negative Negative - Negative 69976-1) Lab Interpretation (test code = Normal 72283-0) [facility] FLU A AND B (MOLECULAR)2020-12-10 15:09:00 Test Item Value Reference Range Interpretation Comments POCT INFLUENZA A (test neg Negative - code = 3840) Negative POCT INFLUENZA B (test neg Negative - code = 3841) Negative KISHORE (test code = KISHORE) accurate development and interpretation of all internal controls Lab Interpretation Normal (test code = 81016-0) [facility] GRP A STREP (MOLECULAR)2020-12-10 15:01:00 Test Item Value Reference Range Interpretation Comments POCT GP A STREP (test neg Negative - code = 65499-0) Negative KISHORE (test code = KISHORE) accurate development and interpretation of all internal controls Lab Interpretation Normal (test code = 49519-1) [facility] [id number] 13:56:00 Test Item Value Reference Range Interpretation Comments POCT PREG (test code = 1605) Negative On board controls acceptable with C Yes Line (test code = 3574) POCT PREG LOT # (test code = 3575) POCT PREG TEST DATE (test code = 3576) [facility] [id number] 13:56:00 Test Item Value Reference Range Interpretation Comments POCT PREG (test code = 1605) Negative On board controls acceptable with C Yes Line (test code = 3574) POCT PREG LOT # (test code = 3575) POCT PREG TEST DATE (test code = 3576) [facility] - Type and Screen expires [...] [facility] = 20) Laboratory Serv [facility] Blood [facility]1 [address] [place] [phone] Free: [phone] A No. [id number] IAT (test code = Negative Performed a t [facility] 1185) Laboratory Serv [facility] [address] [place] [address]Uhmv Free: [phone] A No. [id number] [facility] 19:10:41 Test Item Value Reference Range Interpretation Comments APPEARANCE (test code = Cloudy Clear A 7501042268) COLOR (test code = Red Yellow A 3596600852) PH (test code = 4.8-8.0 0871248447) SP GRAVITY (test code = >=1.030 1.003-1.030 7921482733) GLU U QUAL (test code = Negative Negative 4765463075) BLOOD (test code = Large Negative A 3470622550) KETONES (test code = Negative Negative 0709645930) PROTEIN (test code = 100 mg/dL Negative A 2887-8) UROBILIN (test code = 0.2 mg/dL See_Comment [Auto mated message] 6445636326) The system [email or web address] generated this result transmit tessie reference range : 0-1.0 mg/dL. Th e reference range was not used to interpret this result as normal/abnormal . BILIRUBIN (test code = Small Negative A 2353559913) NITRITE (test code = Positive Negative A 7719213413) LEUK SELENA (test code = Negative Negative 5522153766) RBC/HPF (test code = See_Comment H [Autom ated message] 3369524855) The system [email or web address] generated this result transmit tessie reference range : 0 - 3 HPF. The refe rence range was not u sed to interpret th is result as normal/abnormal . WBC/HPF (test code = See_Comment [Autom ated message] 8197943337) The system [email or web address] generated this result transmit tessie reference range : 0 - 5 HPF. The refe rence range was not u sed to interpret th is result as normal/abnormal . BACTERIA (test code = Moderate Negative A 4481842713) MUCOUS (test code = Slight Negative LPF A 7951336044) SQ EPITH (test code = HPF 5939606238) Ictotest (test code = Positive 1483441603) Lab Interpretation (test Abnormal code = 37201-3) [facility] Metabolic Panel (NA, K, CL, CO2, GLUCOSE, BUN, CREATININE, CA)2020-11-09 18:57:46 Test Item Value Reference Range Interpretation Comments NA (test code = 138 mmol/L 135-145 3302442811) K (test code = 3.5 mmol/L 3.5-5.0 6924674696) CL (test code = 105 mmol/L 98-108 4961076548) CO2 TOTAL (test code = 26 mmol/L 23-31 3385293784) AGAP (test code = 2-16 6587630292) BUN (test code = 15 mg/dL 7-23 9093170557) GLUCOSE (test code = 104 mg/dL 70-110 4585532891) CREATININE (test code 0.67 mg/dL 0.50-1.04 = 0963191643) CALCIUM (test code = 9.0 mg/dL 8.6-10.6 1783760010) eGFR Calculation mL/min/1.73m2 (Non-) (test code = 7706390554) eGFR Calculation mL/min/1.73m2 () (test code = 3445800714) KISHORE (test code = KISHORE) Association of [...] or urine or abnormalities in imaging tests). [facility] with [id number] 18:40:21 Test Item Value Reference Range Interpretation Comments WBC (test code = See_Comment [Automated message] 8190-2) The system [email or web address] generated this result transmitted ref erence range: 4.30 - 1 1.10 10*3/?L. The re ference range was not u sed to interpret this result as normal/abnor mal. RBC (test code = See_Comment [Automated message] 379-8) The system [email or web address] generated this result transmitted ref erence range: [...] RDW-SD (test code 40.1 fL 39.0-49.9 = 94986-4) RDW-CV (test code 13.2 % 12.0-15.5 = 788-0) PLT (test code = See_Comment [Automated message] 777-3) The system [email or web address] generated this result transmitted ref erence range: 166 - 35 8 10*3/?L. The re ference range was not u sed to interpret this result as normal/abnor mal. MPV (test code = 11.2 fL 9.5-12.9 72055-5) NRBC/100 WBC (test See_Comment [Automat ed message] code = 3738976352) The syste m which generated this result transmitted ref erence range: 0.0 - 10 .0 /100 WBCs. The refer ence range was not u sed to interpret this result as normal/abnor mal. NRBC x10^3 (test <0.01 See_Comment [Automated message] code = 8821136944) The syste m which generated this result transmitted ref erence range: 10*3/?L. The reference range was not used to interpr et this result as normal/abnormal . GRAN MAT (NEUT) % 61.6 % (test code = 770-8) IMM GRAN % (test 0.20 % code = 8742971857) LYMPH % (test code 27.3 % = 736-9) MONO % (test code 8.0 % = 5905-5) EOS % (test code = 2.5 % 713-8) BASO % (test code 0.4 % = 706-2) GRAN MAT 5.67 10*3/uL 1.88-7.09 x10^3(ANC) (test code = 6595997534) IMM GRAN x10^3 <0.03 0.00-0.06 (test code = 4961970052) LYMPH x10^3 (test 2.52 10*3/uL 1.32-3.29 code = 731-0) MONO x10^3 (test 0.74 10*3/uL 0.33-0.92 code = 742-7) EOS x10^3 (test 0.23 10*3/uL 0.03-0.39 code = 711-2) BASO x10^3 (test 0.04 10*3/uL 0.01-0.07 code = 704-7) [facility] [id number] 18:19:00 Test Item Value Reference Range Interpretation Comments POCT PREG (test code = 1605) negative On board controls acceptable with C present Line (test code = 3574) Lab Interpretation (test code = Normal 64707-1) [facility] URINALYSIS W/O SPECIFIC [id number] 15:17:00 Test Item Value Reference Range Interpretation [...] code = 3257) Negative Negative - Negative [facility]/O SPECIFIC [id number] 15:17:00 Test Item Value Reference Range Interpretation [...] code = 3257) Negative Negative - Negative [facility] (26296)2020-10-20 03:05:00 Test Item Value Reference Range Interpretation Comments NA (test code = 139 mmol/L 135-145 0565471155) K (test code = 4.0 mmol/L 3.5-5 2128564214) CL (test code = 104 mmol/L 98-108 7731432149) CO2 TOTAL (test code = 29 mmol/L 23-31 1156927168) AGAP (test code = 2-16 4682907326) BUN (test code = 18 mg/dL 7-23 3869671654) GLUCOSE (test code = 101 mg/dL 70-110 0575797867) CREATININE (test code 0.59 mg/dL 0.5-1.04 = 0216669618) TOTAL BILI (test code 0.2 mg/dL 0.1-1.1 = 7081505185) CALCIUM (test code = 8.9 mg/dL 8.6-10.6 8116795318) T PROTEIN (test code = 7.0 g/dL 6.3-8.2 7260833379) ALBUMIN (test code = 4.2 g/dL 3.5-5 6833215523) ALK PHOS (test code = 57 U/L 34-122 2754957076) ALTv (test code = 26 U/L 5-35 1742-6) AST(SGOT) (test code = 24 U/L 13-40 5200885568) eGFR Calculation mL/min/1.73m2 (Non-) (test code = 4774011989) eGFR Calculation mL/min/1.73m2 () (test code = 9789451753) KISHORE (test code = KISHORE) Association of [...] or urine or abnormalities in imaging tests). [facility] 03:04:00 Test Item Value Reference Range Interpretation Comments LIPASE (test code = 2738174648) 65 U/L 0-220 Lab Interpretation (test code = Normal 48874-6) [facility] / [id number] 02:56:00 Test Item Value Reference Range Interpretation Comments PROTIME PATIENT (test See_Comment [Auto mated message] code = 5964-2) The system [employer] generated this result transmitted ref erence range: 12.0 - 1 4.7 Seconds. The re ference range was not u sed to interpret this result as normal/abnor mal. INR (test code = 6301-6) Nor mal INR <1.1; Warfarin Therap eutic range 2.0 to 3. 0 or 2.5 to 3.5, dep ending upon the indica tions. Lab Interpretation (test Normal code = 65983-0) [facility] 02:53:00 Test Item Value Reference Range Interpretation Comments APPEARANCE (test code = Hazy Clear A 9214774075) COLOR (test code = Yellow Yellow 5997976634) PH (test code = 4.8-8.0 7217984894) SP GRAVITY (test code = 1.003-1.030 8655874717) GLU U QUAL (test code = Normal Normal 4485652496) BLOOD (test code = 3+ Negative A 2350292255) KETONES (test code = Negative Negative 4758019398) PROTEIN (test code = 30 mg/dL Negative A 2887-8) UROBILIN (test code = Normal Normal 0554750983) BILIRUBIN (test code = Negative Negative 8391885387) NITRITE (test code = Negative Negative 4667538262) LEUK SELENA (test code = 75/uL Negative A 2242277566) RBC/HPF (test code = See_Comment H [Autom ated message] 8985676304) The system [email or web address] generated this result transmitted ref erence range: 0 - 3 HP F. The reference range was not used to int erpret this result as normal/abnormal . WBC/HPF (test code = See_Comment H [Autom ated message] 5392456557) The system [email or web address] generated this result transmitted ref erence range: 0 - 5 HP F. The reference range was not used to int erpret this result as normal/abnormal . BACTERIA (test code = Few Negative A 4493485663) MUCOUS (test code = Slight Negative LPF A 3667932138) SQ EPITH (test code = HPF 8698556003) Lab Interpretation (test Abnormal code = 78451-9) [facility] WITH [id number] 02:50:00 Test Item Value Reference Range Interpretation Comments WBC (test code = See_Comment [Automated message] 6690-2) The system [email or web address] generated this result transmitted ref erence range: 4.30 - 1 1.10 10*3/?L. The re ference range was not u sed to interpret this result as normal/abnor mal. RBC (test code = See_Comment [Automated message] 789-8) The system [email or web address] generated this result transmitted ref erence range: [...] RDW-SD (test code 41.7 fL 39-49.9 = 52150-9) RDW-CV (test code 13.2 % 12-15.5 = 788-0) PLT (test code = See_Comment [Automated message] 777-3) The system [email or web address] generated this result transmitted ref erence range: 166 - 35 8 10*3/?L. The re ference range was not u sed to interpret this result as normal/abnor mal. MPV (test code = 11.4 fL 9.5-12.9 26237-3) NRBC/100 WBC (test See_Comment [Automat ed message] code = 0946899564) The syste [employer] which generated this result transmitted ref erence range: 0.0 - 10 .0 /100 WBCs. The refer ence range was not u sed to interpret this result as normal/abnor mal. NRBC x10^3 (test <0.01 See_Comment [Automated message] code = 2955090184) The syste m which generated this result transmitted ref erence range: 10*3/?L. The reference range was not used to interpr et this result as normal/abnormal . GRAN MAT (NEUT) % 57.1 % (test code = 770-8) IMM GRAN % (test 0.40 % code = 9966352564) LYMPH % (test code 32.8 % = 736-9) MONO % (test code 6.6 % = 5905-5) EOS % (test code = 2.6 % 713-8) BASO % (test code 0.5 % = 706-2) GRAN MAT 4.66 10*3/uL 1.88-7.09 x10^3(ANC) (test code = 1459525422) IMM GRAN x10^3 0.03 10*3/uL 0-0.06 (test code = 8052597460) LYMPH x10^3 (test 2.68 10*3/uL 1.32-3.29 code = 731-0) MONO x10^3 (test 0.54 10*3/uL 0.33-0.92 code = 742-7) EOS x10^3 (test 0.21 10*3/uL 0.03-0.39 code = 711-2) BASO x10^3 (test 0.04 10*3/uL 0.01-0.07 code = 704-7) [facility] [id number] 01:42:00 Test Item Value Reference Range Interpretation Comments POCT PREG (test code = 1605) negative On board controls acceptable with present C Line (test code = 3574) POCT PREG LOT # (test code = 3575) [id number] POCT PREG TEST DATE (test 05/25/2022 code = 3576) Lab Interpretation (test code = Normal 15916-9) [facility]. [facility] - PAP w/reflex HPV if ASC-US or above 2020-06-29 00:00:00 Test Item Value Reference Range Interpretation Comments Case (test code = Click ImageLink button A Case) for report. [facility]RE[facility] (MOLECULAR)2020-06-06 16:26:00 Test Item Value Reference Range Interpretation Comments POCT GP A STREP (test neg Negative - code = 96247-6) Negative KISHORE (test code = KISHORE) accurate development and interpretation of all internal controls Lab Interpretation Normal (test code = 69905-0) [facility] FLU [facility] AND B ([facility]LECULAR)2020-06-06 16:18:00 Test Item Value Reference Range Interpretation Comments POCT INFLUENZA A (test neg Negative - code = 3840) Negative POCT INFLUENZA B (test neg Negative - code = 3841) Negative KISHORE (test code = KISHORE) accurate development and interpretation of all internal controls Lab Interpretation Normal (test code = 16374-9) [facility] 3+ VW [id number] 18:03:03 Unremarkable left wrist series RL 5939 [...] 5939Electronically signed by Faisal Moon 05/27/2020 1:03 PMUnB[facility]crestXR SHOULDER 2+ VW [id number] 18:02:12 Unremarkable right shoulder series RL 5939 [...] soft tissues areunremarkable.IMPRESSIONUnremarkable right shoulder seriesRL 5939 [facility]stXR ANKLE 3+ VW [id number] 18:01:40 Unremarkable right ankle series RL 5939 [...] soft tissues areunremarkable.IMPRESSIONUnremarkable right ankle seriesRL 5939 [facility] COVID-19 (ID NOW RAPID TESTING)2020-04-09 16:50:00 Test Item Value Reference Range Interpretation Comments SARS-CoV-2 Rapid ID NOW Not Detected Not Detected (test code = 97170-8) KISHORE (test code = KISHORE) ID NOW COVID-19 Assay is an isothermal nucleic acid amplification test intended for the qualitative detection of nucleic acid from SARS-CoV-2 viral RNA in nasopharyngeal (DRILLING RIG OPERATOR) specimens. It is used under Emergency [...] indicated. Lab Interpretation Normal (test code = 58377-8) [facility] CLC OR LCC ONLY - WET [id number] 16:47:00 Test Item Value Reference Range Interpretation Comments Wet Prep (test code = Moderate WBC per 6546140433) high-power field [facility] 16:44:00 Test Item Value Reference Range Interpretation Comments APPEARANCE (test code = Hazy Clear A 1028740531) COLOR (test code = Yellow Yellow 4748031915) PH (test code = 4.8-8.0 3666070945) SP GRAVITY (test code = 1.003-1.030 2150434068) GLU U QUAL (test code = 150 mg/dL Normal A 7812163313) BLOOD (test code = Negative Negative INTERFERE NCE FROM 8944102756) ASCORBIC ACID M AY CAUSE FALSE NEG ATIVE RESULT KETONES (test code = 5 mg/dL Negative A 3629205703) PROTEIN (test code = Negative Negative 2887-8) UROBILIN (test code = Normal Normal 7455284401) BILIRUBIN (test code = Negative Negative 3178147082) NITRITE (test code = Negative Negative 0258850941) LEUK SELENA (test code = 25/uL Negative A 0456514893) RBC/HPF (test code = See_Comment [Autom ated message] 1481778603) The system [email or web address] generated this result transmitted ref erence range: 0 - 3 HP F. The reference range was not used to int erpret this result as normal/abnormal . WBC/HPF (test code = See_Comment [Autom ated message] 6629901011) The system [email or web address] generated this result transmitted ref erence range: 0 - 5 HP F. The reference range was not used to int erpret this result as normal/abnormal . BACTERIA (test code = Negative Negative 2402337165) MUCOUS (test code = Slight Negative LPF A 3233532153) SQ EPITH (test code = HPF 2819259870) Lab Interpretation Abnormal (test code = 30819-4) [facility] ONLY - FERN [id number] 16:30:00 Test Item Value Reference Range Interpretation Comments Fern Test (test code = 7432756372) Negative [facility][QL] CMP [id number] 00:00:00 Test Item Value Reference Range Interpretation Comments GLUCOSE; Normal 68 mg/dl 65-99 N Fasting refe rence (test code = 1547-9) interva l UREA NITROGEN (BUN) 10 mg/dl 7-25 N (test code = UREA NITROGEN (BUN)) CREATININE (test 0.46 mg/dl 0.50-1.10 code = CREATININE) eGFR NON-AFR. 134 > OR = 60 N DJIBOUTIAN (test code {ML/MIN/1.7} = eGFR NON-AFR. DJIBOUTIAN) eGFR 156 > OR = 60 N DJIBOUTIAN (test code {ML/MIN/1.7} = eGFR ) BUN/CREATININE [...] mg/dl 0.2-1.2 N Normal (test code = 49536-1) ALKALINE PHOSPHATASE 120 u/l 31-125 N (test code = ALKALINE PHOSPHATASE) AST; Normal (test 14 u/l 10-30 N code = 1916-6) ALT; Normal (test 16 u/l 6-29 N SPECIMEN R ECEIVED code = 1742-6) DATE AND TIME : [id number] [facility][Q] BILE ACIDS, FRACTIONATED AND TOTAL, [id number] 00:00:00 Test Item Value Reference Interpretation Comments [...] performancechar acteristics have been deter mined by [facility]io. It has not beencleared or approved by FDA. This as say has been validatedpursua nt to the CLIA regulations and is used for clinicalpurpose s.SPECIMEN RECEIVED DATE A ND TIME: [id number] [facility][QL] CULTURE, URINE, [id number] 00:00:00 Test Item Value Reference Range Interpretation Comments SOURCE: (test URINE, CLEAN CATCH code = SOURCE:) STATUS: (test FINAL code = STATUS:) Result (test Multiple organisms CFU/mL. T hese code = Result) present, each less organis ms, commonly than 10,000 found onexterna l and internal genita romana, are consideredt o be colonizers. No further testing performed.SPECI MEN RECEIVED DATE A ND TIME: 45 [facility] PELVIS > 14 [id number] 21:23:34Impression: Single live intrauterine fetus, with adequate [...] Cervical length is normal at 4.4 cm. [facility], Radiant Results Inft User - 03/11/2020 4:24 [...] growth. No acuteabnormalities evident.RL: 460End of Report [facility]stAD ONLY - FERN [id number] 19:53:00 Test Item Value Reference Range Interpretation Comments Fern Test (test code = 3958739932) Negative [facility] ([facility] NOW [facility]APID TESTING)2020-03-07 01:44:00 Test Item Value Reference Range Interpretation Comments SARS-CoV-2 Rapid ID NOW Positive Not Detected A (test code = 75878-0) KISHORE (test code = KISHORE) ID NOW COVID-19 Assay is an isothermal nucleic acid amplification test intended for the qualitative detection of nucleic acid from SARS-CoV-2 viral RNA in nasopharyngeal (DRILLING RIG OPERATOR) specimens. It is used under Emergency [...] indicated. Lab Interpretation Abnormal (test code = 97884-6) [facility] METABOLIC PANEL (NA, K, CL, CO2, GLUCOSE, BUN, CREATININE, CA)2020-03-07 01:43:00 Test Item Value Reference Range Interpretation Comments NA (test code = 133 mmol/L 135-145 L 8751483781) K (test code = 3.8 mmol/L 3.5-5 8186237364) CL (test code = 106 mmol/L 98-108 8880562876) CO2 TOTAL (test code = 22 mmol/L 23-31 L 0856157803) AGAP (test code = 2-16 6951837266) BUN (test code = 8 mg/dL 7-23 0025430804) GLUCOSE (test code = 98 mg/dL 70-110 4670174714) CREATININE (test code = 0.38 mg/dL 0.5-1.04 L 4588512429) CALCIUM (test code = 8.8 mg/dL 8.6-10.6 4115564775) eGFR Calculation mL/min/1.73m2 (Non-) (test code = 0061336499) eGFR Calculation mL/min/1.73m2 () (test code = 5721442149) KISHORE (test code = KISHORE) Association of [...] tests). Lab Interpretation Abnormal (test code = 83340-5) [facility] WITH [id number] 01:27:00 Test Item Value Reference Range Interpretation Comments WBC (test code = See_Comment H [Automated 3312-2) message] The system which generated this result transmit tessie reference range : 4.30 - 11.10 10*3/?L. The reference range was not used to interpret this result as normal/abnormal . RBC (test code = See_Comment [Automated 899-8) message] The system which generated this result [...] RDW-SD (test code = 40.8 fL 39-49.9 67741-9) RDW-CV (test code = 13.7 % 12-15.5 788-0) PLT (test code = See_Comment [Automated 777-3) message] The system which generated this result transmit tessie reference range : 166 - 358 10*3/ ?L. The reference range was not u sed to interpret th is result as normal/abnormal . MPV (test code = 11.6 fL 9.5-12.9 54916-4) NRBC/100 WBC (test See_Comment [Automat ed code = 8347838903) message] The system which generated this result transmit tessie reference range : 0.0 - 10.0 /100 WBCs. The reference range was not used to interpret this result as normal/abnormal . NRBC x10^3 (test code <0.01 See_Comment [Auto mated = 4217629296) message] The system which generated this result transmit tessie reference range : 10*3/?L. The reference range was not used to interpret this result as normal/abnormal . GRAN MAT (NEUT) % 80.6 % (test code = 770-8) IMM GRAN % (test code 1.00 % = 5160920108) LYMPH % (test code = 11.4 % 736-9) MONO % (test code = 5.8 % 5905-5) EOS % (test code = 0.9 % 713-8) BASO % (test code = 0.3 % 706-2) GRAN MAT x10^3(ANC) 12.28 10*3/uL 1.88-7.09 H (test code = 0556413116) IMM GRAN x10^3 (test 0.15 10*3/uL 0-0.06 H code = 0042080855) LYMPH x10^3 (test code 1.73 10*3/uL 1.32-3.29 = 731-0) MONO x10^3 (test code 0.89 10*3/uL 0.33-0.92 = 742-7) EOS x10^3 (test code = 0.14 10*3/uL 0.03-0.39 711-2) BASO x10^3 (test code 0.04 10*3/uL 0.01-0.07 = 704-7) Lab Interpretation Abnormal (test code = 44509-4) [facility][Q] GLUCOSE, GESTATIONAL SCREEN (50G)-130 [id number] 16:06:00 Test Item Value Reference Range Interpretation Comments GLUCOSE, GESTATIONAL 121 mg/dl <135 N SPECIME N RECEIVED DATE SCREEN (50G)-130 AND TIME: 2 [id number] CUTOFF; Normal (test code = 31171-3) [facility][QL] CBC (INCLUDES DIFF/PLT)2020-02-18 16:06:00 Test Item Value Reference Range Interpretation Comments WHITE BLOOD CELL 13.6 3.8-10.8 COUNT (test code = {Thousand/u} WHITE BLOOD CELL COUNT) RED BLOOD CELL COUNT 3.80 3.80-5.10 N (test code = RED {Million/uL} BLOOD CELL COUNT) HEMOGLOBIN; Below 10.8 g/dl 11.7-15.5 Low Threshold (test code = 96720-5) HEMATOCRIT; Below 32.5 % 35.0-45.0 Low Threshold (test code = 4544-3) MCV; Normal (test 85.5 fL 80.0-100.0 N code = 787-2) MCHC; Normal (test 33.2 g/dl 32.0-36.0 N code = 79211-4) RDW; Normal (test 13.1 % 11.0-15.0 N code = 788-0) PLATELET COUNT; 262 140-400 N Normal (test code = {Thousand/u} 777-3) MPV; Normal (test 11.8 fL 7.5-12.5 N code = 23530-0) ABSOLUTE NEUTROPHILS 42201 1907-2796 (test code = {cells/uL} ABSOLUTE NEUTROPHILS) ABSOLUTE LYMPHOCYTES 5437 699-2408 N (test code = {cells/uL} ABSOLUTE LYMPHOCYTES) [...] Normal 6.2 % N (test code = 83258-2) EOSINOPHILS; Normal 0.9 % N (test code = 86564-6) BASOPHILS; Normal 0.3 % N SPECIMEN R ECEIVED (test code = DATE AND TIME: 23897-5) [id number] [facility][QL] URINALYSIS, [id number] 00:00:00 Test Item Value Reference Range Interpretation [...] Normal NEGATIVE NEGATIVE N (test code = 83842-9) KETONES; Normal (test NEGATIVE NEGATIVE N code = 04442-1) OCCULT BLOOD; Normal NEGATIVE NEGATIVE N (test code = 54536-8) PROTEIN; Normal (test NEGATIVE NEGATIVE N code = 42689-3) NITRITE; Normal (test NEGATIVE NEGATIVE N code = 78739-1) LEUKOCYTE ESTERASE 1+ NEGATIVE A (test code = LEUKOCYTE ESTERASE) WBC; Abnormal (test 10-20 < OR = 5 A code = 6690-2) RBC; Normal (test 0-2 < OR = 2 N code = 789-8) SQUAMOUS EPITHELIAL > OR = 60 < OR = 5 A CELLS; Abnormal (test code = 33688-7) BACTERIA; Abnormal FEW NONE SEEN A (test code = 630-4) CALCIUM OXALATE FEW NONE OR FEW N CRYSTALS; Normal (test code = 61818-1) HYALINE CAST; Normal NONE SEEN NONE SEEN N SPECIME N RECEIVED DATE (test code = 14495-6) AND TI ME: [id number] [facility][QL] CULTURE, URINE, [id number] 00:00:00 Test Item Value Reference Range Interpretation [...] desired.SPECIME N RECEIVED DATE A ND TIME: [facility] - Affirm VPIII (BV Panel)2020-01-15 00:00:00 Test Item Value Reference Range Interpretation Comments Case (test code = Click ImageLink button N Case) for report. [place] [id number] 01:37:00 Test Item Value Reference Range Interpretation Comments APPEARANCE (test code = Hazy Clear A 8372314398) COLOR (test code = Yellow Yellow 5820193832) PH (test code = 4.8-8.0 4098557012) SP GRAVITY (test code = 1.003-1.030 7710017067) GLU U QUAL (test code = Normal Normal 2245159562) BLOOD (test code = Negative Negative 6687119408) KETONES (test code = Negative Negative 9748144113) PROTEIN (test code = Negative Negative 2887-8) UROBILIN (test code = Normal Normal 2606293214) BILIRUBIN (test code = Negative Negative 9408057005) NITRITE (test code = Negative Negative 7821203989) LEUK SELENA (test code = Negative Negative 9659388780) RBC/HPF (test code = See_Comment [Autom ated message] 4140546732) The system [email or web address] generated this result transmitted ref erence range: 0 - 3 HP F. The reference range was not used to int erpret this result as normal/abnormal . WBC/HPF (test code = See_Comment [Autom ated message] 4601009383) The system [email or web address] generated this result transmitted ref erence range: 0 - 5 HP F. The reference range was not used to int erpret this result as normal/abnormal . BACTERIA (test code = Few Negative A 0068941889) MUCOUS (test code = Slight Negative LPF A 8917814923) SQ EPITH (test code = HPF 8182272503) Lab Interpretation (test Abnormal code = 35781-8) [facility] [id number] 00:49:00 Test Item Value Reference Range Interpretation Comments SARS-CoV-2 (test code = Not Detected Not Detected 09642-3) KISHORE (test code = KISHORE) ID NOW COVID-19 Assay is an isothermal nucleic acid amplification test intended for the qualitative detection of nucleic acid from SARS-CoV-2 viral RNA in nasopharyngeal (DRILLING RIG OPERATOR) specimens. It is used under Emergency [...] indicated. Lab Interpretation Normal (test code = 13311-3) [facility] [id number] 00:26:00 Test Item Value Reference Range Interpretation Comments TROPONIN I (test <0.012 See_Comment [Automated code = 8344227072) message] The system which generated this result [...] ? Lab Interpretation Normal (test code = 76067-3) [facility] 00:24:00 Test Item Value Reference Range Interpretation [...] seconds. Lab Interpretation Normal (test code = 47464-2) [facility]PROTHROMBIN TIME / [id number] 00:24:00 Test Item Value Reference Range Interpretation [...] tions. Lab Interpretation (test Normal code = 28518-4) [facility]CB WITH [id number] 00:19:00 Test Item Value Reference Range Interpretation Comments WBC (test code = See_Comment H [Automated 2990-2) message] The system which generated this result transmit tessie reference range : 4.30 - 11.10 10*3/?L. The reference range was not used to interpret this result as normal/abnormal . RBC (test code = See_Comment [Automated 479-8) message] The system which generated this result [...] RDW-SD (test code = 42.7 fL 39-49.9 99877-0) RDW-CV (test code = 13.2 % 12-15.5 788-0) PLT (test code = See_Comment [Automated 777-3) message] The system which generated this result transmit tessie reference range : 166 - 358 10*3/ ?L. The reference range was not u sed to interpret th is result as normal/abnormal . MPV (test code = 11.2 fL 9.5-12.9 56402-7) NRBC/100 WBC (test See_Comment [Automat ed code = 8107885393) message] The system which generated this result transmit tessie reference range : 0.0 - 10.0 /100 WBCs. The reference range was not used to interpret this result as normal/abnormal . NRBC x10^3 (test code <0.01 See_Comment [Auto mated = 7098636190) message] The system which generated this result transmit tessie reference range : 10*3/?L. The reference range was not used to interpret this result as normal/abnormal . GRAN MAT (NEUT) % 76.5 % (test code = 770-8) IMM GRAN % (test code 0.90 % = 6951970114) LYMPH % (test code = 14.3 % 736-9) MONO % (test code = 6.3 % 5905-5) EOS % (test code = 1.7 % 713-8) BASO % (test code = 0.3 % 706-2) GRAN MAT x10^3(ANC) 12.18 10*3/uL 1.88-7.09 H (test code = 8119955237) IMM GRAN x10^3 (test 0.14 10*3/uL 0-0.06 H code = 7832429557) LYMPH x10^3 (test code 2.28 10*3/uL 1.32-3.29 = 731-0) MONO x10^3 (test code 1.01 10*3/uL 0.33-0.92 H = 742-7) EOS x10^3 (test code = 0.27 10*3/uL 0.03-0.39 711-2) BASO x10^3 (test code 0.04 10*3/uL 0.01-0.07 = 704-7) Lab Interpretation Abnormal (test code = 44548-9) [facility]. METABOLIC PANEL (15740)2019-12-15 00:14:00 Test Item Value Reference Range Interpretation Comments NA (test code = 135 mmol/L 135-145 0558091476) K (test code = 3.8 mmol/L 3.5-5 7900651319) CL (test code = 105 mmol/L 98-108 1164780680) CO2 TOTAL (test code = 23 mmol/L 23-31 3939707526) AGAP (test code = 2-16 4720259566) BUN (test code = 10 mg/dL 7-23 2564043638) GLUCOSE (test code = 86 mg/dL 70-110 0924425290) CREATININE (test code = 0.39 mg/dL 0.5-1.04 L 1918259757) TOTAL BILI (test code = 0.1 mg/dL 0.1-1.0 0959091390) CALCIUM (test code = 9.0 mg/dL 8.6-10.6 4183806232) T PROTEIN (test code = 7.4 g/dL 6.3-8.2 5358738320) ALBUMIN (test code = 4.0 g/dL 3.5-5 6179048813) ALK PHOS (test code = 71 U/L 34-122 9106666635) ALTv (test code = 20 U/L 5-35 1742-6) AST(SGOT) (test code = 22 U/L 13-40 5537921375) eGFR Calculation mL/min/1.73m2 (Non-) (test code = 1538792025) eGFR Calculation mL/min/1.73m2 () (test code = 2776187787) KISHORE (test code = KISHORE) Association of [...] tests). Lab Interpretation Abnormal (test code = 79422-6) [facility] HospitalLIPASE, [id number] 00:14:00 Test Item Value Reference Range Interpretation Comments LIPASE (test code = 2404324150) 47 U/L 0-220 Lab Interpretation (test code = Normal 55098-3) [facility][Q] IRON, TIBC AND FERRITIN [id number] 15:53:00 Test Item Value Reference Range Interpretation Comments IRON, TOTAL (test 108 {mcg/dl} 40-190 N code = IRON, TOTAL) IRON BINDING 454 {mcg/dL 250-450 CAPACITY (test code ca} = IRON BINDING CAPACITY) % SATURATION (test 24 {% CALC} 16-45 N SPECIMEN RECEIVED code = % DATE AND TIME: SATURATION) 225836277082 FERRITIN (test code 13 ng/ml 16-154 SPECIMEN RECEIVED = FERRITIN) DATE AND TIME: [facility][Q] OBSTETRIC [id number] 15:53:00 Test Item Value Reference Range Interpretation Comments WHITE BLOOD CELL 13.1 3.8-10.8 COUNT (test code = {Thousand/u} WHITE BLOOD CELL COUNT) RED BLOOD CELL 4.07 3.80-5.10 N COUNT (test code = {Million/uL} RED BLOOD CELL COUNT) HEMAGLOBIN; Normal 12.3 g/dl 11.7-15.5 N (test code = 08087-0) HEMATOCRIT; Normal 36.0 % 35.0-45.0 N (test code = 4544-3) MCV; Normal (test 88.5 fL 80.0-100.0 N code = 787-2) MCHC; Normal (test 34.2 g/dl 32.0-36.0 N code = 79369-3) RDW; Normal (test 13.2 % 11.0-15.0 N code = 788-0) PLATELET COUNT; 260 {Thousand/u} 140-400 N Normal (test code = 777-3) MPV; Normal (test 11.7 fL 7.5-12.5 N code = 71640-2) ABSOLUTE 9930 {cells/uL} 8909-6914 NEUTROPHILS (test code = ABSOLUTE NEUTROPHILS) ABSOLUTE [...] Normal 5.6 % N (test code = 23332-9) EOSINOPHILS; Normal 1.4 % N (test code = 00813-2) BASOPHILS; Normal 0.5 % N SPECIMEN R ECEIVED (test code = DATE AND TIME: 52281-1) 191503716150 ANTIBODY SCREEN, NO ANTIBODIES N Reference range [...] code RH(D) NEGATIVE For add itional = 09307-6) information, pl ease refer to http://educatio nEnrique stDiagnostics.c om/fa q/DET651 (This link is being provid ed for informational/e ducat ional purposes only.)SPECIMEN RECEIVED DATE A ND TIME: RPR (DX) W/REFL NON-REACTIVE NON-REACTIVE N SPECIMEN REC EIVED TITER AND DATE AND TIME: CONFIRMATORY TESTING (test code = RPR (DX) W/REFL TITER AND CONFIRMATORY TESTING) HEPATITIS B SURFACE NON-REACTIVE NON-REACTIVE N SPECIMEN RECEIVED ANTIGEN; Normal DATE AND BENJAMIN E: (test code = 998696960495 5195-3) RUBELLA ANTIBODY 3.85 {index} N Index Inter pretation (IGG); Normal (test ----- -- code = 71108-4) <0.90 Not co nsistent with Immunity 0.90-0.99 Equiv ocal > or = 1.00 Consistent with Immunity The presence of rub shaheen IgG antibody suggests immunization or past or current infe ction withrubella virus.SPECIMEN RECEIVED DATE A ND TIME: [facility][Q] [id number] DEHYDROGENASE, QUANT.2019-11-30 15:53:00 Test Item Value Reference Range Interpretation Comments TMUONID-4-ITNLXSZTD 18.1 {U/g 7.0-20.5 SPECIMEN RECEIVED DEHYDROGENASE (test Hgb} DATE AND TIME: code = 129525393764 MBTNSHK-1-NZZKGJXXX DEHYDROGENASE) [facility][QL] FOLATE, [id number] 15:53:00 Test Item Value Reference Range Interpretation Comments FOLATE, SERUM 13.5 ng/ml N Reference Rang e Low: <3.4 (test code = Borderline: 3.4 -5.4 FOLATE, SERUM) Normal: >5.4 SPECIMEN RECEIVED DATE A ND TIME: [facility][Q] TREPONEMA PALLIDUM AB, PARTICLE [id number] 15:53:00 Test Item Value Reference Range Interpretation Comments TREPONEMA PALLIDUM NONREACTIVE Reference Range: AB, PARTICLE NonreactiveSPEC IMEN AGGLUTINATION (test RECEIVED DATE AND TIME: code = TREPONEMA 48991578292 6 PALLIDUM AB, PARTICLE AGGLUTINATION) [facility][QL] CULTURE, URINE, [id number] 15:53:00 Test Item Value Reference Range Interpretation Comments SOURCE: (test URINE, CLEAN code = SOURCE:) CATCH STATUS: (test FINAL code = STATUS:) ISOLATE 1: (test 50,000-100,000 A Lactobaci llus code = ISOLATE CFU/mL of speciesMay re present 1:) colonizers from external andint ernal genitalia. No f urther testing (includingsusce ptibili ty) will be performed.SPECI MEN RECEIVED DATE A ND TIME: [facility][Q] HEMOGLOBINOPATHY [id number] 15:53:00 Test Item Value Reference Range Interpretation Comments RED BLOOD CELL COUNT 3.96 3.80-5.10 N (test code = RED {Million/uL} BLOOD CELL COUNT) HEMAGLOBIN; Normal 12.4 g/dl 11.7-15.5 N (test code = 47413-4) HEMATOCRIT; Normal 35.4 % 35.0-45.0 N (test code = 4544-3) MCV; Normal (test 89.4 fL 80.0-100.0 N code = 787-2) MCH; Normal (test 31.3 pg 27.0-33.0 N code = 44508-0) RDW; Normal (test 13.4 % 11.0-15.0 N SPECIMEN R ECEIVED code = 788-0) DATE AND TIME: HEMOGLOBIN A (test 97.6 % >96.0 N code = HEMOGLOBIN A) HEMOGLOBIN F (test <1.0 <2.0 N code = HEMOGLOBIN F) HEMOGLOBIN A2 2.4 % 1.8-3.5 N (QUANT); Normal (test code = 88458-1) INTERPRETATION (test See Comment Normal code = phenotype.SPECI MEN INTERPRETATION) RECEIVED MIGUEL E AND TIME: [facility][Q] HIV-1/2 Antigen and Antibodies, Fourth Generation, with [id number] 15:53:00 Test Item Value Reference Range Interpretation Comments HIV AG/AB, 4TH NON-REACTIVE NON-REACTIVE N HIV-1 antigen and GEN; Normal HIV-1/HIV-2 ant ibodies were (test code = [place]. [place] [address]-2) laboratory evid ence of HIVinfection. Clemencia SUNSHINE [...] ad ditional information ple ase refer tohttp://educat ionIntrinsic Therapeutics/fa q/SFZ770(Thi s link is being provided for informational/e ducational purposes only.) The performance of this assay has not been clinicallyvalid ated in patients less t prince 2 years old. SPECIMEN R ECEIVED DATE AND TIME: [id number] [facility]. [facility] - [id number]/[id number] 00:00:00 Test Item Value Reference Range Interpretation Comments Case (test code = Click ImageLink button N Case) for report. [facility] PELVIS > 14 [id number] 15:31:35 1. No acute or adverse changes.2. [...] with the size correlating well withdates.RL: 1105. [facility] 15:25:00 Test Item Value Reference Range Interpretation Comments APPEARANCE (test code = Hazy Clear A 6926138516) COLOR (test code = Yellow Yellow 6692299863) PH (test code = 4.8-8.0 3705539483) SP GRAVITY (test code = 1.003-1.030 6112302122) GLU U QUAL (test code = Normal Normal 1505903956) BLOOD (test code = Negative Negative 3304413676) KETONES (test code = Negative Negative 3729116562) PROTEIN (test code = Negative Negative 2887-8) UROBILIN (test code = Normal Normal 9624193314) BILIRUBIN (test code = Negative Negative 0855676068) NITRITE (test code = Negative Negative 2993828265) LEUK SELENA (test code = Negative Negative 9315511359) RBC/HPF (test code = See_Comment [Autom ated message] 9032986077) The system [email or web address] generated this result transmitted ref erence range: 0 - 3 HP F. The reference range was not used to int erpret this result as normal/abnormal . WBC/HPF (test code = See_Comment [Autom ated message] 2773796255) The system [email or web address] generated this result transmitted ref erence range: 0 - 5 HP F. The reference range was not used to int erpret this result as normal/abnormal . BACTERIA (test code = Negative Negative 3015234668) MUCOUS (test code = Slight Negative LPF A 4027973142) SQ EPITH (test code = HPF 6740527797) Lab Interpretation (test Abnormal code = 53091-4) [facility] URINALYSIS W SPECIFIC [id number] 19:05:00 Test Item Value Reference Range Interpretation [...] POCT U APPEAR (test code = 3267) [facility] URINALYSIS W SPECIFIC [id number] 19:05:00 Test Item Value Reference Range Interpretation [...] POCT U APPEAR (test code = 3267) [facility] [id number] 16:48:00 Test Item Value Reference Range Interpretation [...] POCT U APPEAR (test code = 3267) [facility] L[facility] THAN 14 WEEKS WITH [id number] 14:45:42HISTORY: Vaginal bleeding. Rule out ectopic. TECHNIQUE: [...] in 2 weeks to confirm live [facility] BETA HCG [id number] 14:03:00 Test Item Value Reference Range Interpretation Comments BETA HCG (test See_Comment [Automated m essage] code = The system [facility] h [id number]) generated this result transmit tessie reference range : Non- fe male and male patien ts: <5 mIU/mL. The reference range was not used to interpret this result as normal/abnormal . KISHORE (test code Gestational Age ? ? = KISHORE) ?Range (mIU/mL) 1-10 ?Weeks ?67-17969638-54 Weeks ?16971-32044461-66 Weeks ?2607-02751811-87 Weeks ?0198-668935 Biotin has been reported to cause a negative bias, interpret results relative to patient's use of biotin. [facility] - ONCE [id number] 13:58:38 Test Item Value Reference Range Interpretation Comments ABO & RH (test code A Negative Performe d at [facility] = 20) Laboratory [facility] [place], [place] [address]Toll Free: [phone] A No. [id number] IAT (test code = Negative Performed a t [facility] 1185) Laboratory [facility] [place], [place] [id number] Free: [phone] A No. [id number] [facility] (NA, K, CL, CO2, GLUCOSE, BUN, CREATININE, CA)2019-09-16 13:15:00 Test Item Value Reference Range Interpretation Comments NA (test code = 136 mmol/L 135-145 2347222691) K (test code = 3.7 mmol/L 3.5-5 1447556848) CL (test code = 105 mmol/L 98-108 7879914870) CO2 TOTAL (test code = 23 mmol/L 23-31 7021316492) AGAP (test code = 2-16 1535428045) BUN (test code = 12 mg/dL 7-23 5884844522) GLUCOSE (test code = 108 mg/dL 70-110 6127389745) CREATININE (test code = 0.45 mg/dL 0.5-1.04 L 6172205851) CALCIUM (test code = 9.3 mg/dL 8.6-10.6 2015618311) eGFR Calculation mL/min/1.73m2 (Non-) (test code = 7493722785) eGFR Calculation mL/min/1.73m2 () (test code = 8182691530) KISHORE (test code = KISHORE) Association of [...] tests). Lab Interpretation Abnormal (test code = 23068-6) [facility] Function Panel (ALB, T.PRO, BILI T, BU/BC, ALT, AST, ALK PHOS)2019-09-16 13:15:00 Test Item Value Reference Range Interpretation Comments TOTAL BILI (test code = 1108397440) 0.2 mg/dL 0.1-1.1 BILI UNCON (test code = 8213981318) 0.2 mg/dL 0.1-1.1 BILI CONJ (test code = 2617993660) 0.0 mg/dL 0-0.3 T PROTEIN (test code = 3917711660) 7.1 g/dL 6.3-8.2 ALBUMIN (test code = 9019710497) 4.0 g/dL 3.5-5 ALK PHOS (test code = 5668114444) 45 U/L 34-122 ALTv (test code = 1742-6) 36 U/L 5-35 H AST(SGOT) (test code = 1345416437) 27 U/L 13-40 Lab Interpretation (test code = Abnormal 31553-8) [facility] HospitalaPTT2020-01-22 13:12:00 Test Item Value Reference Range Interpretation [...] seconds. Lab Interpretation Normal (test code = 12740-8) [facility] HospitalProthrombin Time (PT) / [id number] 13:10:00 Test Item Value Reference Range Interpretation Comments PROTIME PATIENT (test See_Comment [Auto mated message] code = 5964-2) The system [employer] generated this result transmitted ref erence range: 12.0 - 1 4.7 Seconds. The re ference range was not u sed to interpret this result as normal/abnor mal. INR (test code = 6301-6) Nor mal INR <1.1; Warfarin Therap eutic range 2.0 to 3. 0 or 2.5 to 3.5, dep ending upon the indica tions. Lab Interpretation (test Normal code = 15256-9) [facility] HospitalCBC WITH [id number] 13:03:00 Test Item Value Reference Range Interpretation Comments WBC (test code = See_Comment [Automated message] 6690-2) The system [email or web address] generated this result transmitted ref erence range: 4.30 - 1 1.10 10*3/?L. The re ference range was not u sed to interpret this result as normal/abnor mal. RBC (test code = See_Comment [Automated message] 789-8) The system [email or web address] generated this result transmitted ref erence range: [...] RDW-SD (test code 41.5 fL 39-49.9 = 42665-4) RDW-CV (test code 13.0 % 12-15.5 = 788-0) PLT (test code = See_Comment [Automated message] 777-3) The system whic h generated this result transmitted ref erence range: 166 - 35 8 10*3/?L. The re ference range was not u sed to interpret this result as normal/abnor mal. MPV (test code = 11.2 fL 9.5-12.9 28381-1) NRBC/100 WBC (test See_Comment [Automat ed message] code = 8995856561) The syste m which generated this result transmitted ref erence range: 0.0 - 10 .0 /100 WBCs. The refer ence range was not u sed to interpret this result as normal/abnor mal. NRBC x10^3 (test <0.01 See_Comment [Automated message] code = 5290749405) The syste m which generated this result transmitted ref erence range: 10*3/?L. The reference range was not used to interpr et this result as normal/abnormal . GRAN MAT (NEUT) % 64.6 % (test code = 770-8) IMM GRAN % (test 0.60 % code = 0898022233) LYMPH % (test code 24.6 % = 736-9) MONO % (test code 7.9 % = 5905-5) EOS % (test code = 1.8 % 713-8) BASO % (test code 0.5 % = 706-2) GRAN MAT 6.67 10*3/uL 1.88-7.09 x10^3(ANC) (test code = 3363243596) IMM GRAN x10^3 0.06 10*3/uL 0-0.06 (test code = 3212542126) LYMPH x10^3 (test 2.54 10*3/uL 1.32-3.29 code = 731-0) MONO x10^3 (test 0.82 10*3/uL 0.33-0.92 code = 742-7) EOS x10^3 (test 0.19 10*3/uL 0.03-0.39 code = 711-2) BASO x10^3 (test 0.05 10*3/uL 0.01-0.07 code = 704-7) [facility] HospitalURINALYSIS2020-01-22 13:00:00 Test Item Value Reference Range Interpretation Comments APPEARANCE (test code = Hazy Clear A 7601590027) COLOR (test code = Yellow Yellow 8308456126) PH (test code = 4.8-8.0 1762298255) SP GRAVITY (test code = 1.003-1.030 4825410209) GLU U QUAL (test code = Normal Normal 8129679923) BLOOD (test code = 2+ Negative A 0702450659) KETONES (test code = Negative Negative 0891693953) PROTEIN (test code = Negative Negative 2887-8) UROBILIN (test code = Normal Normal 2258550710) BILIRUBIN (test code = Negative Negative 5285790200) NITRITE (test code = Negative Negative 1387787113) LEUK SELENA (test code = 500/uL Negative A 6440725778) RBC/HPF (test code = See_Comment H [Autom ated message] 8066443149) The system [email or web address] generated this result transmitted ref erence range: 0 - 3 HP F. The reference range was not used to int erpret this result as normal/abnormal . WBC/HPF (test code = See_Comment H [Autom ated message] 1962217767) The system [email or web address] generated this result transmitted ref erence range: 0 - 5 HP F. The reference range was not used to int erpret this result as normal/abnormal . BACTERIA (test code = Moderate Negative A 6713945843) MUCOUS (test code = Slight Negative LPF A 4693502685) SQ EPITH (test code = HPF 0890621116) Lab Interpretation (test Abnormal code = 97105-7) [facility] HospitalPOCT [id number] 12:35:00 Test Item Value Reference Range Interpretation Comments POCT PREG (test code = 1605) positive On board controls acceptable with present C Line (test code = 3574) POCT PREG LOT # (test code = 3575) [id number] POCT PREG TEST DATE (test 08-25-2020 code = 3576) Lab Interpretation (test code = Normal 66397-5) [facility] HospitalGC & CHLAMYDIA AMPLIFIED [id number] 18:57:00 Test Item Value Reference Range Interpretation Comments C. trachomatis Nucleic Acid (test Positive Negative A code = 96768-7) N. gonorrhoeae Nucleic Acid (test Negative Negative code = 14873-8) Lab Interpretation (test code = Abnormal 52177-9) [facility] HospitalRUBELLA SCREEN (JESSICA) [id number] 17:54:00 Test Item Value Reference Range Interpretation Comments Rubella screen IgG Positive Negative (test code = 6491581197) KISHORE (test code = KISHORE) Positive - Indicates the patient was exposed to Rubella through infection or vaccination.Negative - Indicates the patient could be susceptible to Rubella infection.Equivocal - A second specimen should be sent. [facility] HospitalVZV ANTIBODY [id number] 17:54:00 Test Item Value Reference Range Interpretation Comments VZV IgG antibody Positive Negative (test code = 31317-7) KISHORE (test code = KISHORE) Positive - Indicates the patient was exposed to VZV through infection or vaccination.Negative - Indicates the patient could be susceptible to VZV infection.Equivocal - A second specimen should be sent for testing. [facility] HospitalGALV ONLY - SYPHILIS [id number] 15:14:00 Test Item Value Reference Range Interpretation Comments Syphilis IgG/IgM (test Non-reactive Non-reactive code = 05678-5) KISHORE (test code = KISHORE) Non-reactive - No serologic evidence of T. pallidum infection. Cannot exclude incubating or early syphilis. Submit a second specimen in 2-4 weeks if syphilis is clinically suspected. Equivocal - Further testing to follow. Reactive - Further testing to follow. Lab Interpretation (test Normal code = 35465-6) [facility] HospitalPRENATAL WORKUP, BLOOD [id number] 09:33:37 Test Item Value Reference Range Interpretation Comments ABO & RH (test code A NEGATIVE Performe d at [facility] = 20) [facility] [address] [facility] [address]Uwho Free: [phone] A No. [id number] IAT (test code = Negative Performed a t [facility] 1185) Laboratory Serv [facility] [facility] [address]Bets Free: [phone] A No. [id number] [facility] HospitalHIV 1/2 AG-AB WITH [id number] 07:47:00 Test Item Value Reference Range Interpretation Comments HIV Negative Negative Semi-quantitative (test code = 66652-9) KISHORE (test code = Non-reactive for HIV-1 KISHORE) antigen and HIV-1/HIV-2 antibodies. ?No laboratory evidence of HIV infection. ?Repeat in 2-4 weeks if acute HIV infection is suspected. [facility] HospitalHEPATITIS B SURFACE [id number] 06:40:00 Test Item Value Reference Range Interpretation Comments HBsAg Semi-Quantitative (test code = Negative Negative 5195-3) [facility] HospitalCBC WITH [id number] 06:36:00 Test Item Value Reference Range Interpretation Comments WBC (test code = See_Comment H [Automated 5390-2) message] The sy stem which generated this result transmitted reference range : 4.30 - 11.10 10*3/?L. The reference range was not used to interpret this result as normal/abnormal . RBC (test code = See_Comment [Automated 299-8) message] The sy stem which generated this [...] RDW-SD (test code = 42.2 fL 39-49.9 78613-1) RDW-CV (test code = 13.2 % 12-15.5 788-0) PLT (test code = See_Comment [Automated 777-3) message] The sy stem which generated this result transmitted reference range : 166 - 358 10*3/ ?L. The reference r diandra was not used to interpret this result as normal/abnormal . MPV (test code = 12.1 fL 9.5-12.9 57563-5) NRBC/100 WBC (test See_Comment [Automat ed code = 4366055046) message] The system which generated this result transmitted reference range : 0.0 - 10.0 /100 WBCs. The refer ence range was not u sed to interpret th is result as normal/abnormal . NRBC x10^3 (test code <0.01 See_Comment [Auto mated = 8852962611) message] The s ystem which generated this result transmitted reference range : 10*3/?L. The reference range was not used to interpret this result as normal/abnormal . GRAN MAT (NEUT) % 67.8 % (test code = 770-8) IMM GRAN % (test code 0.30 % = 9252705958) LYMPH % (test code = 23.2 % 736-9) MONO % (test code = 6.5 % 5905-5) EOS % (test code = 1.8 % 713-8) BASO % (test code = 0.4 % 706-2) GRAN MAT x10^3(ANC) 7.68 10*3/uL 1.88-7.09 H (test code = 6944643155) IMM GRAN x10^3 (test 0.03 10*3/uL 0-0.06 code = 1329475146) LYMPH x10^3 (test code 2.63 10*3/uL 1.32-3.29 = 731-0) MONO x10^3 (test code 0.74 10*3/uL 0.33-0.92 = 742-7) EOS x10^3 (test code = 0.20 10*3/uL 0.03-0.39 711-2) BASO x10^3 (test code 0.05 10*3/uL 0.01-0.07 = 704-7) Lab Interpretation Abnormal (test code = 27868-4) [facility] URINALYSIS W/O SPECIFIC [id number] 20:42:00 Test Item Value Reference Range Interpretation [...] code = 3257) Neg Negative - Negative [facility] [id number] 20:40:00 Test Item Value Reference Range Interpretation Comments POCT PREG (test code = 1605) Positive On board controls acceptable with C Yes Line (test code = 3574) POCT PREG LOT # (test code = 3575) POCT PREG TEST DATE (test code = 3576) [facility] HospitalPREGNANCY SCREEN, [id number] 20:01:00 Test Item Value Reference Range Interpretation Comments TEST URINE (BEAKER) (test Negative code = 583) [id number] 11:54:00 Test Item Value Reference Range Interpretation Comments RPR SCREEN (BEAKER) (test code = Nonreactive Nonreactive 420) HEMOGLOBIN [id number] 10:47:00 Test Item Value Reference Range Interpretation Comments HEMOGLOBIN A1C (BEAKER) (test code = 5.2 % 4.3-6.1 368) TSH/FREE T4 IF [id number] 06:03:00 Test Item Value Reference Range Interpretation Comments THYROID STIMULATING HORMONE 0.97 uIU/mL 0.35-4.94 (BEAKER) (test code = 772) VITAMIN B12 AND [id number] 06:03:00 Test Item Value Reference Range Interpretation Comments VITAMIN B12 (BEAKER) (test code = 384 pg/mL 213-816 774) FOLATE (BEAKER) (test code = 362) 11.5 ng/mL >=7.0 Effective 07/13/2014: Folate Reference Range ChangeNew: >=7.0 Previous: >=5.4HIV-1 ANTIGEN WITH HIV-1/2 [id number] 05:29:00 Test Item Value Reference Range Interpretation Comments HIV-1 ANTIGEN WITH HIV 1\\T\\2 Nonreactive Nonreactive ANTIBODY (2) (BEAKER) (test code = 2586) [id number] 05:18:00 Test Item Value Reference Range Interpretation [...] exclusion of thrombosis is within 95-100% range. [id number] 05:18:00 Test Item Value Reference Range Interpretation Comments MAGNESIUM (BEAKER) (test code = 2.1 mg/dL 1.6-2.6 627) LIPID [id number] 05:18:00 Test Item Value Reference Range Interpretation [...] 130-159 High 160-189 Very High >=190BASIC METABOLIC [id number] 05:18:00 Test Item Value Reference Range Interpretation [...] PATIEN TS. CBC W/PLT COUNT & AUTO [id number] 05:09:00 Test Item Value Reference Range Interpretation [...]
[2022-10-21] MEDS ORDERED: HYDROCODONE/APAP 5/325 MG TAB ONE (16:39)
[2022-10-21] MEDS ORDERED: IBUPROFEN 400 MG TAB ONE (16:39)
--- NOTE | 2022-10-21 17:23 | RAD REPORT ---
EXAM DESCRIPTION: RAD - Tib Fib Left - 10/21/2022 5:06 pm CLINICAL HISTORY: Pain COMPARISON: None. FINDINGS: Two views of the left tibia fibula. No fracture is identified. There is no dislocation or periosteal reaction noted. Epiphyses and growth plates are normal in appea char. No foreign body or other soft tissue abnormality. IMPRESSION: No acute osseus abnormality.
--- NOTE | 2022-10-21 17:24 | RAD REPORT ---
EXAM DESCRIPTION: RAD - Ankle Left 3 View - 10/21/2022 5:06 pm CLINICAL HISTORY: Pain COMPARISON: 06/17/2015. FINDINGS: Three views of the left ankle. No fracture, dislocation or periosteal reaction. No joint effusion seen. No joint space narrowing. No soft tissue abnormality. IMPRESSION: No acute osseous abnormality of the left ankle.
--- NOTE | 2022-10-21 17:25 | RAD REPORT ---
EXAM DESCRIPTION: RAD - Foot Left 3 View - 10/21/2022 5:06 pm CLINICAL HISTORY: Pain COMPARISON: None. FINDINGS: Three views of the left foot. No fracture, dislocation or periosteal reaction. No air or foreign body in the soft tissues. IMPRESSION: No acute osseus abnormality of the left foot.
--- NOTE | 2022-10-21 18:09 | ER ---
Nurse's Notes [facility] Name: Lauren Polanco Age: 32 yrs Sex: Female : 1990 Arrival Date: 10/21/2022 Time: 16:07 Bed 6 Private MD: Diagnosis: Sprain of unspecified ligament of left ankle, initial encounter Presentation: 10/21 16:09 Chief complaint: Tolled left ankle while jumping on trampoline, reports left ankle pain hb 10/10. Unable to bear weight. Coronavirus screen: At this time, the client does not indicate any symptoms associated with coronavirus-19. Ebola Screen: No symptoms or risks identified at this time. Risk Assessment: Do you want to hurt yourself or someone else? Patient reports no desire to harm self or others. Onset of symptoms was October 21, 2022 at 16:10. 16:09 Method Of Arrival: Wheelchair hb 16:09 Acuity: YANICK 3 hb 16:41 Initial Sepsis Screen: Does the patient meet any 2 criteria? No. Patient's initial ph sepsis screen is negative. Does the patient have a suspected source of infection? No. Patient's initial sepsis screen is negative. Historical: - Allergies: 16:10 Macrobid; hb - PMHx: 16:10 Anxiety; MRSA; [place]; hb - PSHx: 16:10 Appendectomy; Tonsillectomy; hb - Immunization history:: Adult Immunizations unknown. - Social history:: Smoking status: unknown. - Family history:: not pertinent. - Hospitalizations: : No recent hospitalization is reported. Screenin:40 [facility] ED Fall Risk Assessment (Adult) History of falling in the last 3 months, ph including since admission Yes- single mechanical fall (1 pt) Confusion or Disorientation No (0 pts) Intoxicated or Sedated No (0 pts) Impaired Gait Yes (1 pt) Mobility Assist Device Used No (0 pt) Altered Elimination No (0 pt) Score/Fall Risk Level 0 - 2 = Low Risk Oriented to surroundings, Maintained a safe environment, Hourly rounding (assess needs \T\ fall precautionary measures) done. Abuse screen: Denies threats or abuse. Denies injuries from another. Nutritional screening: No deficits noted. Tuberculosis screening: No symptoms or risk factors identified. Assessment: 16:40 General: Appears in no apparent distress. Behavior is calm, cooperative, appropriate ph for age. Pain: Complains of pain in left lateral ankle. Neuro: Pride Agitation-Sedation Scale (RASS): +1 Restless Level of Consciousness is awake, alert, obeys commands, Oriented to person, place, time, situation. Cardiovascular: Capillary refill < 3 seconds in bilateral fingers toes Patient's skin is warm and dry. Musculoskeletal: Swelling present in left lateral ankle. 18:04 Reassessment: Dr. Leonardo at bedside discussing results and POC. jl7 Vital Signs: 16:09 BP 123 / 76; Pulse 77; Resp 16; Temp 98.3; Pulse Ox 100% on R/A; Weight 67.59 kg; hb Height 5 ft. 1 in. (154.94 cm); Pain 10/10; 18:04 BP 103 / 70; Pulse 84; Resp 15; Pulse Ox 100% ; jl7 16:09 Body Mass Index 28.15 (67.59 kg, 154.94 cm) hb ED Course: 16:07 Patient arrived in ED. rg4 16:09 Vincenzo Leonardo MD is Attending Physician. rn 16:10 Triage completed. hb 16:10 Arm band placed on. hb 16:13 Iqra Thomas, ZOË is Primary Nurse. jl7 16:41 Patient has correct armband on for positive identification. Bed in low position. Call ph light in reach. Door closed. Noise minimized. Ice pack to injury. 17:08 XRAY Tib Fib LEFT In Process Unspecified. EDMS 17:08 XRAY Ankle LEFT 3 view In Process Unspecified. EDMS 17:08 XRAY Foot LEFT 3 View In Process Unspecified. EDMS 18:31 No provider procedures requiring assistance completed. Patient did not have IV access jl7 during this emergency room visit. 18:31 Crutch training done. Aircast walking boot to right ankle. jl7 Administered Medications: 16:39 Drug: Motrin (ibuprofen) 800 mg Route: PO; ph 18:30 Follow up: Response: No adverse reaction; Pain is decreased jl7 16:40 Drug: HYDROcodone-acetaminophen 5 mg-325 mg 1 tabs Route: PO; ph 18:30 Follow up: Response: No adverse reaction; Pain is decreased jl7 Medication: 16:41 VIS not applicable for this client. ph Outcome: 18:09 Discharge ordered by . rn 18:31 Discharged to home with crutches, with friend. jl7 18:31 Condition: stable 18:31 Discharge instructions given to patient, Instructed on discharge instructions, follow up and referral plans. medication usage, Demonstrated understanding of instructions, follow-up care, medications, Prescriptions given X 1. 18:32 Patient left the ED. jl7 Signatures: Dispatcher [employer] EDMS Vincenzo Leonardo MD MD rn Hall, Patricia RN RN Ronna Morrissey, RN Kinjal Morris 4 Iqra Thomas RN RN jl7
--- NOTE | 2022-10-21 18:09 | EDPHYS ---
Physician Documentation [facility] Name: Lauren Polanco Age: 32 yrs Sex: Female : 1990 Arrival Date: 10/21/2022 Time: 16:07 Bed 6 Private MD: ED Physician Vincenzo Leonardo HPI: 10/21 17:55 This 32 yrs old Female presents to ER via Wheelchair with complaints of Foot Injury, rn ankle injury. 17:55 The patient presents with an injury, pain. rn 18:00 The patient presents with decreased range of motion, an injury, pain. rn 18:00 The complaints affect the left ankle. Onset: The symptoms/episode began/occurred just rn prior to arrival. Associated signs and symptoms: Pertinent positives: swelling, Pertinent negatives: fever, weakness. Modifying factors: The symptoms are alleviated by elevation of extremity, ice packs, the symptoms are aggravated by weight bearing, movement. Severity of symptoms: At their worst the symptoms were moderate, in the emergency department the symptoms are unchanged. The patient has not experienced similar symptoms in the past. The patient has not recently seen a physician. Pt reports left ankle injury and pain following jumping injury at [employer]. . Historical: - Allergies: 16:10 Macrobid; hb - PMHx: 16:10 Anxiety; MRSA; [place]; hb - PSHx: 16:10 Appendectomy; Tonsillectomy; hb - Immunization history:: Adult Immunizations unknown. - Social history:: Smoking status: unknown. - Family history:: not pertinent. - Hospitalizations: : No recent hospitalization is reported. ROS: 18:00 Constitutional: Negative for fever, chills, and weight loss, Eyes: Negative for injury, rn pain, redness, and discharge, Cardiovascular: Negative for chest pain, palpitations, and edema, Respiratory: Negative for shortness of breath, cough, wheezing, and pleuritic chest pain, Abdomen/GI: Negative for abdominal pain, nausea, vomiting, diarrhea, and constipation, Back: Negative for injury and pain, MS/Extremity: + injury and pain to left ankle Skin: Negative for injury, rash, and discoloration, Neuro: Negative for headache, weakness, numbness, tingling, and seizure. Exam: 18:00 Constitutional: This is a well developed, well nourished patient who is awake, alert, rn appears in pain Head/Face: Normocephalic, atraumatic. Cardiovascular: Regular rate and rhythm. No pulse deficits. Respiratory: No increased work of breathing, no retractions or nasal flaring. Skin: Warm, dry MS/ Extremity: Pulses equal, no cyanosis. + swelling left ankle/lateral malleolus and along lateral foot. No open wounds. No crepitus. Neuro: Awake and alert, GCS 15 Vital Signs: 16:09 BP 123 / 76; Pulse 77; Resp 16; Temp 98.3; Pulse Ox 100% on R/A; Weight 67.59 kg; hb Height 5 ft. 1 in. (154.94 cm); Pain 10/10; 18:04 BP 103 / 70; Pulse 84; Resp 15; Pulse Ox 100% ; jl7 16:09 Body Mass Index 28.15 (67.59 kg, 154.94 cm) hb MDM: 16:09 Patient medically screened. rn 18:00 Differential diagnosis: fracture, sprain. Data reviewed: vital signs, nurses notes, rn radiologic studies, plain films, and as a result, I will discharge patient. Independent interpretation of the following test(s) in the Emergency Department X-Ray: My interpretation is Xray left tibfib/ankle/foot images all negative for acute fracture/dislocation per my interpretation. . 18:07 Counseling: I had a detailed discussion with the patient and/or guardian regarding: the rn historical points, exam findings, and any diagnostic results supporting the discharge/admit diagnosis, radiology results, the need for outpatient follow up, to return to the emergency department if symptoms worsen or persist or if there are any questions or concerns that arise at home. Response to treatment: the patient's symptoms have mildly improved after treatment, and as a result, I will discharge patient. Special discussion: I discussed with the patient/guardian in detail that at this point there is no indication for admission to the hospital. It is understood, however, that if the symptoms persist or worsen the patient needs to return immediately for re-evaluation. Based on the history and exam findings, there is no indication for further emergent testing or inpatient evaluation. I discussed with the patient/guardian the need to see the orthopedic surgeon for further evaluation of the symptoms. 10/21 16:16 Order name: XRAY Tib Fib LEFT; Complete Time: 17:54 rn 10/21 16:16 Order name: XRAY Ankle LEFT 3 view; Complete Time: 17:54 rn 10/21 16:16 Order name: XRAY Foot LEFT 3 View; Complete Time: 17:54 rn 10/21 18:00 Order name: Walking boot; Complete Time: 18:30 rn 10/21 18:00 Order name: Crutches; Complete Time: 18:30 rn Administered Medications: 16:39 Drug: Motrin (ibuprofen) 800 mg Route: PO; ph 18:30 Follow up: Response: No adverse reaction; Pain is decreased jl7 16:40 Drug: HYDROcodone-acetaminophen 5 mg-325 mg 1 tabs Route: PO; ph 18:30 Follow up: Response: No adverse reaction; Pain is decreased jl7 Disposition Summary: 10/21/22 18:09 Discharge Ordered Location: Home rn Problem: new rn Symptoms: have improved rn Condition: Stable rn Diagnosis - Sprain of unspecified ligament of left ankle, initial encounter rn Followup: rn - With: Private Physician - When: As needed - Reason: Recheck today's complaints, Re-evaluation by your physician Discharge Instructions: - Discharge Summary Sheet rn - Ankle Sprain rn Forms: - Medication Reconciliation Form rn - Thank You Letter rn - 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
[2022-10-21 18:49] VITALS: TEMP 98.3; O2SAT 100
[2022-10-21 18:50] VITALS: BP 103/70
== END 2022-10-21 18:32 | disposition home or self-care (01) ==
LOC: ER 16:05
DX: S93.402A Sprain of unspecified ligament of left ankle, initial encounter (principal); Z88.3 Allergy status to other anti-infective agents
CPT/HCPCS: 99284

== ENCOUNTER 2023-07-27 20:32 | Emergency (ER) | payer OTHER, SELFPAY ==
--- OUTSIDE RECORDS SUMMARY | 2023-07-27 20:47 | XMS REPORT | Continuity of Care Document ---
:1990 Author Organization [facility] [place] [facility] t Address [address] [facility] [address] [place] [address] Care Team Providers Name Role Phone Asked, No Pcp Primary Care Physician Unavailable ZANE WOODWARD Attending Clinician Unavailable Doctor Unassigned, [place] Attending Clinician Unavailable CHRISTIAN RAMIREZ Attending Clinician Unavailable CHRISTIAN RAMIREZ Attending Clinician Unavailable OLMAN SHETH Attending Clinician Unavailable Olman Sheth MD Attending Clinician Lauren Christianson Attending Clinician 2, [facility] Attending Clinician Unavailable BO PEGUERO Attending Clinician Unavailable Rajinder Chávez DO Attending Clinician Bo Peguero MD Attending Clinician [phone] FARHEENBISI Attending Clinician Unavailable FARHEEN, BISI Attending Clinician Unavailable Farheen DO, GermanAria Attending Clinician STEPAN CHAMBERS Attending Clinician Unavailable Stepan Sharif Attending Clinician Mic ARIAS, Madhuri Attending Clinician MADHURI HAILE Attending Clinician Unavailable Unknown, Attending Attending Clinician Unavailable Kimberly ARIAS, [facility] Attending Clinician Ирина Humphreys MD Attending Clinician Micheal Fay DO Attending Clinician [phone] Isra Sky MD Attending Clinician Teresa Blas Attending Clinician Omar Priest DDS Attending Clinician LAUREN STOVALL Attending Clinician Unavailable Charo Shrestha Attending Clinician CHARO DE LA CRUZ Attending Clinician Unavailable Liv Ferreira PA-C Attending Clinician LIV FERREIRA Attending Clinician Unavailable Provider, [facility] Attending Clinician Unavailable Shawn ARAIZA Fransisco Attending Clinician FRANSISCO ESCOBAR Attending Clinician Unavailable Alessandro ARAIZA Leatha Attending Clinician LEATHA GA Attending Clinician Unavailable Lab, Adc Fam Pob I Attending Clinician Unavailable GADIEL PALENCIA Attending Clinician Unavailable Jose R Sterling MD Attending Clinician JOSE [...] Unavailable MARY ORLANDO M.D. Attending Clinician Unavailable Raju_P Attending Clinician Unavailable RALPH NEWMAN Attending Clinician Unavailable PAT SOLIS D.O. Attending Clinician Unavailable MEDICAL MANAGER, ROOM3 Attending Clinician Unavailable GARY HERNANDEZ Attending Clinician Unavailable MEDICAL MANAGER, ROOM2 Attending Clinician Unavailable Reji COPELAND M.D. Attending Clinician Unavailable Joey Mendoza MD Attending Clinician KAVIN DE DIOS M.D. Attending Clinician Unavailable Mona Miller S Attending Clinician CHASE GAMINO M.D. Attending Clinician Unavailable ELIF ECKERT M.D. Attending Clinician Unavailable FANYURIDIA, WALK-INS Attending Clinician Unavailable FITZ WILSON D.O. Attending Clinician Unavailable MEDICAL MANAGER, ROOM4 Attending Clinician Unavailable RILEY ESPOSITO M.D. Attending Clinician Unavailable YOANNA TEJADA M.D. Attending Clinician Unavailable Bo Barker MD Attending Clinician Shahid Arredondo MD Attending Clinician YARI STEPHENS M.D. Attending Clinician Unavailable OB/, Attending Clinician Unavailable JUAN MANUEL WHITTEN Attending Clinician Unavailable Fernandez Sarmiento Attending Clinician [phone] Ultrasound, Adc Mfm Attending Clinician Unavailable Carina Meehan MD Attending Clinician Fellow, [facility] Attending Clinician Unavailable Justice Gray MD Attending Clinician Richard ARIAS, Stan Michel Attending Clinician KEYA MEDEROS Attending Clinician Unavailable Ultrasound, Ang-Mfm Attending Clinician Unavailable Emilie Hernandez MD, Zambrano Attending Clinician [phone] Consults, Mfkeila Pinky Pn Genetics Attending Clinician Unavailcindy Mederos MD, Keya Herr Attending Clinician YASHIRA HURT M.D. Attending Clinician Unavailable SUMAN SUN Attending Clinician Unavailable Corinne ARAIZA, Suman Rios Attending Clinician FERNANDEZ STILES Attending Clinician Unavailable Pob, Adc Lab Main Attending Clinician Unavailable Orlando ARAIZA, Gold Cochran Attending Clinician GOLD PERRY Attending Clinician Unavailable TOSHIA ANNE Attending Clinician Unavailable Risk, Wrk-Bgzsw-Hg/High Attending Clinician Unavailable Toshia Shafer Attending Clinician Mg Stallworth MD Attending Clinician Lab, Ang-Rmchp Attending Clinician Unavailable Josiah CAMP, Elizabeth Rios Attending Clinician Unavailable GOPI MURCIA Attending Clinician Unavailable ERASMO PENA Attending Clinician Unavailable JAIME MORFIN Attending Clinician Unavailable NOLVIA, FELLOW2 Attending Clinician Unavailable OLMAN SHETH Admitting Clinician Unavailable JOEY MENDOZA Admitting Clinician Unavailable BISI ZHONG Admitting Clinician Unavailable ИРИНА HUMPHREYS Admitting Clinician Unavailable Drew Admitting Clinician Unavailable Olman Sheth MD Admitting Clinician Joey Mendoza MD Admitting Clinician SUMAN SUN Admitting Clinician Unavailable GOPI MURCIA Admitting Clinician Unavailable ERASMO PENA Admitting Clinician Unavailable Payers Payer Name Policy Type Policy Number Effective Date Expiration Date [facility] MEDICAID NISULA [id number] 2021 00:00:00 [facility] [id number] 2019 [facility] MEDICAID 00:00:00 [place]ID [place] [id number] 2019 00:00:00 Problems Condition Condition Condition Status Onset Resolution Last Treating Co mments Source Name Details Category Date Date Treatment Clinician Date Dental Dental Disease Active Methodi abscess abscess 1-10 st 00:[facility]: Hospita 00 l Morbid Morbid Disease [...] 2-27 it y of autism autism 00:00: [place] 00 Medical Branch Nausea and Nausea and Disease Active U nivers vomiting vomiting 2-27 ity of during during 00:00: [place] 00 [facility] Branch Chlamydia Chlamydia Disease Active Overview: Univers infection infection 1-10 Pending ity of affecting affecting 00:[place] [facility] Flu Flu Disease Active Univers vaccine vaccine [...] of Disease Active U nivers miscarriag miscarriag 7 it y of e, e, 00:00: [place] currently currently 00 [facility] Branch History of History of Disease Active Overview : Univers 7- ROR ity of delivery, delivery, 00:00[place] 00 see [facility] scanned Bran h records 2016 at 36 weeks Delivery in 2018 at 36 weeks see chart review Obesity Obesity Disease Active 2017-0 Univers affecting affecting 03-25 [place] Von Von Disease Recurre [facility] Willebrand nce 01-09 Renu kes disease disease 00:00: [facility] Left sided Left sided Disease Active [facility] Headache(7 Headache(7 Disease [facility] 84.0) 84.0) 01-09 [facility]: [facility] 00 Center History of History of Disease Active 2014-08 U nivers asthma asthma 0-06 ity of 00:00: [place] [address] Medical Branch Von Von Disease Active 2014-08 Univers Willebrand Willebrand 0- it y of disease disease 00:00: [place] [address] Medical Branch Bipolar 1 Bipolar 1 Disease Active 2014-08 Overview: Univers disorder disorder 0- Formattin ity of 00:00: g of this [place] [address] note Medical might be Branch different from the original. Started on Ericson 300 mg BID and Seroquel 50 mg [...] Drug Active Univers ALLERGIE Class ity of [facility] NO KNOWN Allergy Active [facility] Family History Family Member Diagnosis Comments Start Date Stop Date Source Mother Family history of [facility] Bipolar 2 disorder Natural mother Diabetes [facility] Natural mother Hypertension [facility] Social History Social Habit Start Date Stop Date Quantity Comments Source ASSERTION 2019-08-07 University of 00:00:00 [place] [facility] Gender identity Universit y of [place] [facility] Sexual orientation [facility] Exposure to 2022-12-22 2023-01-01 Not sure [facility] SARS-CoV-2 (event) 00:00:00 12:48:00 [place] [facility] History of Social 2022-09-07 2022-09-[address] function 00:00:00 00:00:00 Hospital Alcohol Comment 2022-09-05 2022-09-[address] 00:00:00 00:00:00 Hospital Tobacco use and 2022-09-04 2022-09-04 Smokeless tobacco [facility] exposure 00:00:00 00:00:00 non-user Hospital Cigarettes smoked 2022-07-07 2022-07-07 Univers ity of current (pack per 00:00:00 00:00:00 [facility] ) - Reported Branch Education - What 2019-05-30 2019-05-30 12th grade Universi ty of is the highest 00:00:00 00:00:00 [facility] level of school Branch you have completed or the highest degree you have received? History SDOH 2019-05-30 2019-05-30 5 University o f Financial 00:00:00 00:00:00 [place] [facility] History [facility] Food 2019-05-30 2019-05-30 1 Univers ity of Worry 00:00:00 00:00:00 [place] [facility] History [facility] Food 2019-05-30 2019-05-30 1 Univers ity of Scarcity 00:00:00 00:00:00 [place] [facility] History [facility] 2019-05-30 2019-05-30 2 University o f Transport Med 00:00:00 00:00:00 [place] [facility] History [facility] 2019-05-30 2019-05-30 2 University o f Transport Non-Med 00:00:00 00:00:00 [facility] edical Branch Alcohol intake 2017-01-11 2017-01-11 Current non-drinker [facility] 00:[facility]00 00:00:00 of [facility] (finding) History of tobacco 2006-03-25 2014-03-25 Cigar Smoker Univ ersity of use 00:00:00 00:00:00 [place] [facility] Sex Ass[birth year] At [birth year] [facility] 00:00:00 00:00:00 [facility] Center Smoking Status Start Date Stop Date Source [facility] smoked [facility] 2022-07-07 00:00:00 2022-07-07 00:00:00 [facility] [place] [facility] Current some day 2017-01-10 00:00:00 [facility] smoker Center Medications Ordered Filled Start Stop Current Ordering Indication Dosage Frequency Signature Comments Components Source Medication Medication Date Date Medication? Clinician (SIG) Name Name fluconazole Yes [id number] 200mg Take 1 Univers (DIFLUCAN) 9-29 tablet by ity of 200 mg 00:00: mouth in [place] tablet 00 the Medical morning. Branch fluconazole Yes [id number] 200mg Take 1 Univers (DIFLUCAN) 9-29 tablet by ity of 200 mg 00:00: mouth in [place] tablet 00 the Medical morning. Branch valACYclovi Yes Take 2g Uni vers r (VALTREX) 9-29 BID for 1 ity of 1 gram 00:00: day. [place] tablet 00 Medical Branch fluconazole Yes [id number] 200mg Take 1 Univers (DIFLUCAN) 9-29 tablet by ity of 200 mg 00:00: mouth in [place] tablet 00 the Medical morning. Branch valACYclovi 0 Yes Take 2g Uni vers r (VALTREX) 9-29 BID for 1 ity of 1 gram 00:00: day. [place] tablet 00 [facility] fluconazole 0 Yes [id number] 200mg Take 1 Univers (DIFLUCAN) 9-29 tablet by ity of 200 mg 00:00: mouth in [place] tablet 00 the Medical morning. Branch valACYclovi Yes Take 2g Uni vers r (VALTREX) 9-29 BID for 1 ity of 1 gram 00:00: day. [place] tablet 00 [facility] fluconazole Yes [id number] 200mg Take 1 Univers (DIFLUCAN) 9-29 tablet by ity of 200 mg 00:00: mouth in [place] tablet 00 the Medical morning. Branch valACYclovi Yes Take 2g Uni vers r (VALTREX) 9-29 BID for 1 ity of 1 gram 00:00: day. [place] tablet 00 [facility] fluconazole Yes [id number] 200mg Take 1 Univers (DIFLUCAN) 9-29 tablet by ity of 200 mg 00:00: mouth in [place] tablet 00 the Medical morning. Branch valACYclovi Yes Take 2g Uni vers r (VALTREX) 9-29 BID for 1 ity of 1 gram 00:00: day. [place] tablet 00 [facility] fluconazole 0 Yes [id number] 200mg Take 1 Univers (DIFLUCAN) 9-29 tablet by ity of 200 mg 00:00: mouth in [place] tablet 00 the Medical morning. Branch valACYclovi Yes Take 2g Uni vers r (VALTREX) 9-29 BID for 1 ity of 1 gram 00:00: day. [place] tablet 00 [facility] fluconazole 0 Yes [id number] 200mg Take 1 Univers (DIFLUCAN) 9-29 tablet by ity of 200 mg 00:00: mouth in [place] tablet 00 the Medical morning. Branch valACYclovi Yes Take 2g Uni vers r (VALTREX) 9-29 BID for 1 ity of 1 gram 00:00: day. [place] tablet 00 [facility] fluconazole 0 Yes [id number] 200mg Take 1 Univers (DIFLUCAN) 9-29 tablet by ity of 200 mg 00:00: mouth in [place] tablet 00 the Medical morning. Branch valACYclovi Yes Take 2g Uni vers r (VALTREX) 9-29 BID for 1 ity of 1 gram 00:00: day. [place] tablet 00 Medical Branch fluconazole Yes [id number] 200mg Take 1 Univers (DIFLUCAN) 9-29 tablet by ity of 200 mg 00:00: mouth in [place] tablet 00 the Medical morning. Branch valACYclovi Yes Take 2g Uni vers r (VALTREX) 9-29 BID for 1 ity of 1 gram 00:00: day. [place] tablet 00 Medical Branch metroNIDAZO 2022- Yes [id number] 500mg Take 1 Univers LE (FLAGYL) 9- 10- tablet by it y of 500 mg 00:00: 04:59 mouth in [place] tablet 00 :00 the Medical morning Branch and 1 tablet in the evening. Do all this for 7 days. metroNIDAZO 2022- Yes [id number] 500mg Take 1 Univers LE (FLAGYL) 9- 10- tablet by it y of 500 mg 00:00: 04:59 mouth in [place] tablet 00 :00 the Medical morning Branch and 1 tablet in the evening. Do all this for 7 days. metroNIDAZO 2022- Yes [id number] 500mg Take 1 Univers LE (FLAGYL) 9- 10-07 tablet by it y of 500 mg 00:00: 04:59 mouth in [place] tablet 00 :00 the Medical morning Branch and 1 tablet in the evening. Do all this for 7 days. metroNIDAZO 2022- Yes [id number] 500mg Take 1 Univers LE (FLAGYL) 9- 10-07 tablet by it y of 500 mg 00:00: 04:59 mouth in [place] tablet 00 :00 the Medical morning Branch and 1 tablet in the evening. Do all this for 7 days. metroNIDAZO 2022- Yes [id number] 500mg Take 1 Univers LE (FLAGYL) 9-29 10-07 tablet by it y of 500 mg 00:00: 04:59 mouth in [place] tablet 00 :00 the Medical morning Branch and 1 tablet in the evening. Do all this for 7 days. ibuprofen 2022- No 800mg 800 mg, Uni vers (IBU) 05-19 Oral, ity of tablet 800 15:45: 15:41 ONCE, 1 [place] as mg 00 :00 dose, On Medical Sun Branch 05/19/23 at 1045, [place] HYDROcodone 2022- No 1{tbl} 1 tablet, Univers -acetaminop 05-19 Oral, ity of hen (NORCO) 11:15: 10:26 [place] 1 [place] 10-325 mg 00 :00 dose, On Medica l tablet 1 Sun Branch tablet 05/19/23 at 0615, Routine acetaminoph 2022- Yes [id number] 1{tbl} Take 1 U nivers en-codeine 05-19 tablet by ity of 300-30 mg 00:00: 04:59 mouth [place] tablet 00 :00 every 6 Medical (six) Branch hours as needed for Pain (scale 4-6) for up to 7 days. Indication s: acute pain acetaminoph 2022- Yes [id number] 1{tbl} Take 1 U nivers en-codeine 05-19 tablet by ity of 300-30 mg 00:00: 04:59 mouth [place] tablet 00 :00 every 6 Medical (six) Branch hours as needed for Pain (scale 4-6) for up to 7 days. Indication s: acute pain acetaminoph 2022- Yes [id number] 1{tbl} Take 1 U nivers en-codeine 05-19 tablet by ity of 300-30 mg 00:00: 04:59 mouth [place] tablet 00 :00 every 6 Medical (six) Branch hours as needed for Pain (scale 4-6) for up to 7 days. Indication s: acute pain acetaminoph 2022- Yes [id number] 1{tbl} Take 1 U nivers en-codeine 05-19 tablet by ity of 300-30 mg 00:00: 04:59 mouth [place] tablet 00 :00 every 6 Medical (six) Branch hours as needed for Pain (scale 4-6) for up to 7 days. Indication s: acute pain acetaminoph 2022- Yes [id number] 1{tbl} Take 1 U nivers en-codeine 05-19 tablet by ity of 300-30 mg 00:00: 04:59 mouth [place] tablet 00 :00 every 6 Medical (six) Branch hours as needed for Pain (scale 4-6) for up to 7 days. Indication s: acute pain acetaminoph 2022- Yes [id number] 1{tbl} Take 1 U nivers en-codeine 05-19 tablet by ity of 300-30 mg 00:00: 04:59 mouth [place] tablet 00 :00 every 6 Medical (six) Branch hours as needed for Pain (scale 4-6) for up to 7 days. Indication s: acute pain iopamidol 2022- No [id number] 75mL 75 mL, U nivers (ISOVUE 05-11 Intravenou ity o f 370-500 mL) 21:30: 21:30 s, ONCE, 1 [place] injection 00 :00 dose, On Medica l 75 mL Sat Branch 05/11/23 at 1630, Routine cefTRIAXone 2022- No 1000mg 1,000 mg, Univers (ROCEPHIN) 05-11 IV ity of 1,000 mg in 21:15: 21:58 Piggyback, [place] NaCl 0.9% 00 :00 ONCE, 1 Medical (NS) 100 mL dose, On Bran ch MINI-BAG 05/11/23 at 1615, Administer over 30 Minutes, 100 mL
Reas on for Anti-Infec tive: Empiric Therapy for Suspected Infection< br>Empiric Therapy Site: Urine
D uration of therapy: 5 days phenazopyri 2022-0 Yes [id number] 200mg Take 1 Univers dine 200 mg 9-16 tablet by ity of tablet 00:00: mouth in [place] [address] the Medical morning Branch and 1 tablet at noon and 1 tablet in the evening. phenazopyri 2023-0 Yes [id number] 200mg Take 1 Univers dine 200 mg 9-16 tablet by ity of tablet 00:00: mouth in [place] 00 the Medical morning Branch and 1 tablet at noon and 1 tablet in the evening. phenazopyri 2023-0 Yes [id number] 200mg Take 1 Univers dine 200 mg 9-16 tablet by ity of tablet 00:00: mouth in [place] [address] the Medical morning Branch and 1 tablet at noon and 1 tablet in the evening. phenazopyri 2023-0 Yes [id number] 200mg Take 1 Univers dine 200 mg 9-16 tablet by ity of tablet 00:00: mouth in [place] [address] the Medical morning Branch and 1 tablet at noon and 1 tablet in the evening. phenazopyri 2023-0 Yes [id number] 200mg Take 1 Univers dine 200 mg 9-16 tablet by ity of tablet 00:00: mouth in [place] [address] the Medical morning Branch and 1 tablet at noon and 1 tablet in the evening. phenazopyri 2023-0 Yes [id number] 200mg Take 1 Univers dine 200 mg 9-16 tablet by ity of tablet 00:00: mouth in [place] [address] the Medical morning [place] and 1 tablet at noon and 1 tablet in the evening. phenazopyri 2023-0 Yes [id number] 200mg Take 1 Univers dine 200 mg 9-16 tablet by ity of tablet 00:00: mouth in [address] morning [place] and 1 tablet at noon and 1 tablet in the evening. phenazopyri 2023-0 Yes [id number] 200mg Take 1 Univers dine 200 mg 9-16 tablet by ity of tablet 00:00: mouth in [address] morning [place] and 1 tablet at noon and 1 tablet in the evening. phenazopyri 2023-0 Yes [id number] 200mg Take 1 Univers dine 200 mg 9-16 tablet by ity of tablet 00:00: mouth in [place] [address] the Medical morning [place] and 1 tablet at noon and 1 tablet in the evening. phenazopyri 2023-0 Yes [id number] 200mg Take 1 Univers dine 200 mg 9-16 tablet by ity of tablet 00:00: mouth in [address] Medical morning [place] and 1 tablet at noon and 1 tablet in the evening. phenazopyri 2023-0 Yes [id number] 200mg Take 1 Univers dine 200 mg 9-16 tablet by ity of tablet 00:00: mouth in [address] Medical morning [place] and 1 tablet at noon and 1 tablet in the evening. phenazopyri 2023-0 Yes [id number] 200mg Take 1 Univers dine 200 mg 9-16 tablet by ity of tablet 00:00: mouth in [place] 00 the [facility] morning Branch and 1 tablet at noon and 1 tablet in the evening. phenazopyri 2023-0 Yes [id number] 200mg Take 1 Univers dine 200 mg 9-16 tablet by ity of tablet 00:00: mouth in [place] 00 the [facility] morning [place] and 1 tablet at noon and 1 tablet in the evening. phenazopyri 2023-0 Yes [id number] 200mg Take 1 Univers dine 200 mg 9-16 tablet by ity of tablet 00:00: mouth in [place] 00 the [facility] morning [place] and 1 tablet at noon and 1 tablet in the evening. phenazopyri 2023-0 Yes [id number] 200mg Take 1 Univers dine 200 mg 9-16 tablet by ity of tablet 00:00: mouth in [address] and 1 tablet at noon and 1 tablet in the evening. phenazopyri 2023-0 Yes [id number] 200mg Take 1 Univers dine 200 mg 9-16 tablet by ity of tablet 00:00: mouth in [address] and 1 tablet at noon and 1 tablet in the evening. cephALEXin 3-0 2023- Yes [id number] 500mg Take 1 Univers (KEFLEX) 9-16 09-24 capsule by ity of 500 mg 00:00: 04:59 mouth in [place] capsule 00 :00 the [facility] and 1 capsule in the evening. Do all this for 7 days. HYDROcodone 2023-0 Yes [id number] 1{tbl} Q8H Take 1 M ethodi -acetaminop 1-[address] hen ([place]) 13:56: mouth Hospi ta 5-325 mg 04 every 8 l per tablet (eight) hours as needed for moderate pain .acute pain. Max Daily Amount: 3 tablets valACYclovi 2023-0 Yes Pt unsure M ethodi r (VALTREX) 1-[address] 500 MG 13:56: Hospita tablet 04 l HYDROcodone 2023-0 Yes [id number] 1{tbl} Q8H Take 1 M ethodi -acetaminop 1-[address] hen ([place]) 13:56: mouth Hospi ta 5-325 mg 04 every 8 l per tablet (eight) hours as needed for moderate pain .acute pain. Max Daily Amount: 3 tablets valACYclovi 2023-0 Yes Pt unsure M ethodi r (VALTREX) [address] 500 MG 13:56: Hospita tablet 04 l amoxicillin 2022- No Patient Me thodi -pot 09-[address] clavulanate 13:56: 00:00 dose Hospi ta (AUGMENTIN) 04 :00 l 250-125 mg per tablet clindamycin 2022- No Patient Me thodi (CLEOCIN) 09-[address] 75 MG 13:56: 00:00 dose Hospita capsule 04 :00 l amoxicillin 2022- No Patient Me thodi -pot 09-[address] clavulanate 13:56: 00:00 dose Hospi ta (AUGMENTIN) 04 :00 l 250-125 mg per tablet clindamycin 2022- No Patient Me thodi (CLEOCIN) 09-[address] 75 MG 13:56: 00:00 dose Hospita capsule 04 :00 l chlorhexidi 2022- No 15mL Q.5D Apply 15 M ethodi ne 1-12 02-[address] (Peridex) 00:00: 05:59 mouth or Hos nick 0.12 % 00 :00 throat 2 l solution (two) times a day for 30 days. chlorhexidi 2022- No 15mL Q.5D Apply 15 M ethodi ne 1-12 02-[address] (Peridex) 00:00: 05:59 mouth or Hos nick 0.12 % 00 :00 throat 2 l solution (two) times a day for 30 days. amoxicillin 2022- No 1{tbl} Q.5D Take 1 M ethodi -pot 09-06-[address] clavulanate 00:00: 05:59 mouth 2 Ho spita (Augmentin) 00 :00 (two) l 875-125 mg times a per tablet day for 7 days. amoxicillin 2022- No 1{tbl} Q.5D Take 1 M ethodi -pot 09-06-[address] clavulanate 00:00: 05:59 mouth 2 Ho spita (Augmentin) 00 :00 (two) l 875-125 mg times a per tablet day for 7 days. aminocaproi 2022- No 1g Q2H Take 4 mL Methodi c acid 09-0616 ([address] (Amicar) 00:00: 05:59 total) by Hos inck 250 mg/mL 00 :00 mouth l (25 %) every 2 solution (two) hours as needed (bleeding) for up to 3 days. traMADoL 2022- [place] [id number] 50mg Q8H Take 1 Metho di (Ultram) 50 09-0616 tablet (50 s t mg tablet 00:00: 05:59 mg total) Ho spita 00 :00 by mouth l every 8 (eight) hours as needed for moderate pain for up to 3 days .acute pain. aminocaproi 2022- No 1g Q2H Take 4 mL Methodi c acid 09-0616 ([address] (Amicar) 00:00: 05:59 total) by Hos nick 250 mg/mL 00 :00 mouth l (25 %) every 2 solution (two) hours as needed (bleeding) for up to 3 days. traMADoL 2022- [place] [id number] 50mg Q8H Take 1 Metho di (Ultram) 50 09-0616 tablet (50 s t mg tablet 00:00: 05:59 mg total) Ho spita 00 :00 by mouth l every 8 (eight) hours as needed for moderate pain for up to 3 days .acute pain. ibuprofen 2021-08 Yes [id number] 800mg Take 1 Univers 800 mg 1-12 tablet by ity of tablet 00:00: mouth [place] 00 every 6 Medical (six) Branch hours as needed for Pain (scale 4-6). chlorhexidi 2021-08 Yes [id number] 15mL Swish and Univers ne 0.12 % 1-12 spit out ity of mouthwash 00:00: 15 [place] the Medical morning Branch and 15 mL in the evening. ibuprofen 2021-08 Yes [id number] 800mg Take 1 Univers 800 mg 1-12 tablet by ity of tablet 00:00: mouth [place] 00 every 6 Medical (six) Branch hours as needed for Pain (scale 4-6). chlorhexidi 2021-08 Yes [id number] 15mL Swish and Univers ne 0.12 % 1-12 spit out ity of mouthwash 00:00: 15 [place] the [place] morning Branch and 15 mL in the evening. ibuprofen 2021-08 Yes [id number] 800mg Take 1 Univers 800 mg 1-12 tablet by ity of tablet 00:00: mouth [place] 00 every 6 Medical (six) Branch hours as needed for Pain (scale 4-6). chlorhexidi 2021-08 Yes [id number] 15mL Swish and Univers ne 0.12 % 1-12 spit out ity of mouthwash 00:00: 15 [place] the [place] morning Branch and 15 mL in the evening. ibuprofen 2021-08 Yes [id number] 800mg Take 1 Univers 800 mg 1-12 tablet by ity of tablet 00:00: mouth [place] 00 every 6 Medical (six) Branch hours as needed for Pain (scale 4-6). chlorhexidi 2021-08 Yes [id number] 15mL Swish and Univers ne 0.12 % 1-12 spit out ity of mouthwash 00:00: [place] the [place] morning Branch and 15 mL in the evening. ibuprofen 2021-08 Yes [id number] 800mg Take 1 [facility] 800 mg 1-12 tablet by ity of tablet 00:00: mouth [place] 00 every 6 Medical (six) Branch hours as needed for Pain (scale 4-6). chlorhexidi 2021-08 Yes [id number] 15mL [facility] and [facility] ne 0.12 % 1-12 spit out ity of mouthwash 00:00: [place] 00 the [facility] morning Branch and 15 mL in the evening. ibuprofen 2021-08 Yes [id number] 800mg Take 1 [facility] 800 mg 1-12 tablet by ity of tablet 00:00: mouth [place] 00 every 6 Medical (six) Branch hours as needed for Pain (scale 4-6). chlorhexidi 2021-08 Yes [id number] 15mL [facility] and [facility] ne 0.12 % 1-12 spit out ity of mouthwash 00:00: [place] 00 the [facility] morning Branch and 15 mL in the evening. ibuprofen 2021-08 Yes [id number] 800mg Take 1 [facility] 800 mg 1-12 tablet by ity of tablet 00:00: mouth [place] 00 every 6 Medical (six) Branch hours as needed for Pain (scale 4-6). chlorhexidi 2021-08 Yes [id number] 15mL Sw[facility] and [facility] ne 0.12 % 1-12 spit out ity of mouthwash 00:00: 15 [place] 00 the Medical morning Branch and 15 mL in the evening. ibuprofen 2021-08 Yes [id number] 800mg Take 1 [facility] 800 mg 1-12 tablet by ity of tablet 00:00: mouth [place] 00 every 6 Medical (six) Branch hours as needed for Pain (scale 4-6). chlorhexidi 2021-08 Yes [id number] 15mL [facility] and [facility] ne 0.12 % 1-12 spit out ity of mouthwash 00:00: 15 [place] 00 the Medical morning Branch and 15 mL in the evening. ibuprofen 2021-08 Yes [id number] 800mg Take 1 [facility] 800 mg 1-12 tablet by ity of tablet 00:00: mouth [place] 00 every 6 Medical (six) Branch hours as needed for Pain (scale 4-6). chlorhexidi 2021-08 Yes [id number] 15mL Sw[facility] and [facility] ne 0.12 % 1-12 spit out ity of mouthwash 00:00: 15 mL [place] 00 the Medical morning Branch and 15 mL in the evening. ibuprofen 2021-08 Yes [id number] 800mg Take 1 [facility] 800 mg 1-12 tablet by ity of tablet 00:00: mouth [place] 00 every 6 Medical (six) Branch hours as needed for Pain (scale 4-6). chlorhexidi 2021-08 Yes [id number] 15mL [facility] and [facility] ne 0.12 % 1-12 spit out ity of mouthwash 00:00: 15 mL in [place] 00 the Medical morning Branch and 15 mL in the evening. ibuprofen 2021-08 Yes [id number] 800mg Take 1 [facility] 800 mg 1-12 tablet by ity of tablet 00:00: mouth [place] 00 every 6 Medical (six) Branch hours as needed for Pain (scale 4-6). chlorhexidi 2021-08 Yes [id number] 15mL [facility] and [facility] ne 0.12 % 1-12 spit out ity of mouthwash 00:00: 15 mL in [place] 00 the Medical morning Branch and 15 mL in the evening. ibuprofen 2021-08 Yes [id number] 800mg Take 1 [facility] 800 mg 1-12 tablet by ity of tablet 00:00: mouth [place] 00 every 6 Medical (six) Branch hours as needed for Pain (scale 4-6). chlorhexidi 2021-08 Yes [id number] 15mL [facility] and [facility] ne 0.12 % 1-12 spit out ity of mouthwash 00:00: 15 mL in [place] 00 the Medical morning Branch and 15 mL in the evening. ibuprofen 2021-08 Yes [id number] 800mg Take 1 [facility] 800 mg 1-12 tablet by ity of tablet 00:00: mouth [place] 00 every 6 Medical (six) Branch hours as needed for Pain (scale 4-6). chlorhexidi 2021-08 Yes [id number] 15mL [facility] and [facility] ne 0.12 % 1-12 spit out ity of mouthwash 00:00: 15 mL in [place] 00 the Medical morning Branch and 15 mL in the evening. ibuprofen 2021-08 Yes [id number] 800mg Take 1 [facility] 800 mg 1-12 tablet by ity of tablet 00:00: mouth [place] 00 every 6 Medical (six) Branch hours as needed for Pain (scale 4-6). chlorhexidi 2021-08 Yes [id number] 15mL [facility] and [facility] ne 0.12 % 1-12 spit out ity of mouthwash 00:00: 15 mL in [place] 00 the Medical morning Branch and 15 mL in the evening. ibuprofen 2021-08 Yes [id number] 800mg Take 1 [facility] 800 mg 1-12 tablet by ity of tablet 00:00: mouth [place] 00 every 6 Medical (six) Branch hours as needed for Pain (scale 4-6). chlorhexidi 2021-08 Yes [id number] 15mL [facility] and [facility] ne 0.12 % 1-12 spit out ity of mouthwash 00:00: 15 mL in [place] 00 the Medical morning Branch and 15 mL in the evening. ibuprofen 2021-08 Yes [id number] 800mg Take 1 [facility] 800 mg 1-12 tablet by ity of tablet 00:00: mouth [place] 00 every 6 Medical (six) Branch hours as needed for Pain (scale 4-6). chlorhexidi 2021-08 Yes [id number] 15mL [facility] and [facility] ne 0.12 % 1-12 spit out ity of mouthwash 00:00: 15 mL in [place] 00 the Medical morning Branch and 15 mL in the evening. ibuprofen 2021-08 Yes [id number] 800mg Take 1 [facility] 800 mg 1-12 tablet by ity of tablet 00:00: mouth [place] 00 every 6 Medical (six) Branch hours as needed for Pain (scale 4-6). chlorhexidi 2021-08 Yes [id number] 15mL [facility] and [facility] ne 0.12 % 1-12 spit out ity of mouthwash 00:00: 15 mL in [place] 00 the Medical morning Branch and 15 mL in the evening. ibuprofen 2021-08 Yes [id number] 800mg Take 1 [facility] 800 mg 1-12 tablet by ity of tablet 00:00: mouth [place] 00 every 6 Medical (six) Branch hours as needed for Pain (scale 4-6). chlorhexidi 2021-08 Yes [id number] 15mL [facility] and [facility] ne 0.12 % 1-12 spit out ity of mouthwash 00:00: 15 mL in [place] 00 the Medical morning Branch and 15 mL in the evening. ibuprofen 2021-08 Yes [id number] 800mg Take 1 [facility] 800 mg 1-12 tablet by ity of tablet 00:00: mouth [place] 00 every 6 Medical (six) Branch hours as needed for Pain (scale 4-6). chlorhexidi 2021-08 Yes [id number] 15mL [facility] and [facility] ne 0.12 % 1-12 spit out ity of mouthwash 00:00: 15 mL in [place] 00 the Medical morning Branch and 15 mL in the evening. ibuprofen 2021-08 Yes [id number] 800mg Take 1 [facility] 800 mg 1-12 tablet by ity of tablet 00:00: mouth [place] 00 every 6 Medical (six) Branch hours as needed for Pain (scale 4-6). chlorhexidi 2021-08 Yes [id number] 15mL [facility] and [facility] ne 0.12 % 1-12 spit out ity of mouthwash 00:00: 15 mL in [place] 00 the Medical morning Branch and 15 mL in the evening. ibuprofen 2021-08 Yes [id number] 800mg Take 1 [facility] 800 mg 1-12 tablet by ity of tablet 00:00: mouth [place] 00 every 6 Medical (six) Branch hours as needed for Pain (scale 4-6). chlorhexidi 2021-08 Yes [id number] 15mL [facility] and [facility] ne 0.12 % 1-12 spit out ity of mouthwash 00:00: 15 mL in [place] 00 the Medical morning Branch and 15 mL in the evening. ibuprofen 2021-08 Yes [id number] 800mg Take 1 [facility] 800 mg 1-12 tablet by ity of tablet 00:00: mouth [place] 00 every 6 Medical (six) Branch hours as needed for Pain (scale 4-6). chlorhexidi 2021-08 Yes [id number] 15mL [facility] and [facility] ne 0.12 % 1-12 spit out ity of mouthwash 00:00: 15 mL in [place] 00 the Medical morning Branch and 15 mL in the evening. ibuprofen 2021-08 Yes [id number] 800mg Take 1 [facility] 800 mg 1-12 tablet by ity of tablet 00:00: mouth [place] 00 every 6 Medical (six) Branch hours as needed for Pain (scale 4-6). chlorhexidi 2021-08 Yes [id number] 15mL [facility] and [facility] ne 0.12 % 1-12 spit out ity of mouthwash 00:00: 15 mL in [place] 00 the Medical morning Branch and 15 mL in the evening. ibuprofen 2021-08 Yes [id number] 800mg Take 1 [facility] 800 mg 1-12 tablet by ity of tablet 00:00: mouth [place] 00 every 6 Medical (six) Branch hours as needed for Pain (scale 4-6). chlorhexidi 2021-08 Yes [id number] 15mL [facility] and [facility] ne 0.12 % 1-12 spit out ity of mouthwash 00:00: 15 mL in [place] 00 the Medical morning Branch and 15 mL in the evening. ibuprofen 2021-08 Yes [id number] 800mg Take 1 [facility] 800 mg 1-12 tablet by ity of tablet 00:00: mouth [place] 00 every 6 Medical (six) Branch hours as needed for Pain (scale 4-6). chlorhexidi 2021-08 Yes [id number] 15mL [facility] and [facility] ne 0.12 % 1-12 spit out ity of mouthwash 00:00: 15 mL in [place] 00 the Medical morning Branch and 15 mL in the evening. valACYclovi 2021-08- No [id number] 1g Take 1 [facility] r (VALTREX) 09-06 tablet by it y of 1 gram 00:00: 05:59 mouth in [place] tablet 00 :00 the Medical morning Branch and 1 tablet at noon and 1 tablet in the evening. Do all this for 10 days. amoxicillin 2021-08- No [id number] 1{tbl} Take 1 [facility] -clavulanat 09-06 tablet by it y of e 00:00: 05:59 mouth in [place] (AUGMENTIN) 00 :00 the Medical 875-125 mg morning Branch per tablet and 1 tablet in the evening. Do all this for 10 days. chlorhexidi Yes [id number] 15mL [facility] and [facility] ne 0.12 % 6-29 spit out ity of mouthwash 00:00: 15 mL 2 [place] 00 (two) Medical times Branch daily. chlorhexidi 2021- No [id number] 15mL [facility] and [facility] ne 0.12 % 6-29 11-12 spit out ity o f mouthwash 00:00: 00:00 15 mL 2 [place] 00 :00 (two) Medical times Branch daily. amoxicillin 2021- No [id number] 1{tbl} Take 1 [facility] -clavulanat 6-29 07-10 tablet by it y of e 00:00: 04:59 mouth 2 [place] (AUGMENTIN) 00 :00 (two) Medical 875-125 mg times Branch per tablet daily for 10 days. chlorhexidi Yes [id number] 15mL [facility] and [facility] ne 0.12 % 5-03 spit out ity of mouthwash 00:00: 15 mL 2 [place] 00 (two) Medical times Branch daily. chlorhexidi 2021- No [id number] 15mL [facility] and [facility] ne 0.12 % 5-03 06-29 spit out ity o f mouthwash 00:00: 00:00 15 mL 2 [place] 00 :00 (two) Medical times Branch daily. amoxicillin 2021- No [id number] 1{tbl} Take 1 [facility] -clavulanat 5-03 05-14 tablet by it y of e 00:00: 04:59 mouth 2 [place] (AUGMENTIN) 00 :00 (two) Medical 875-125 mg times Branch per tablet daily for 10 days. valACYclovi 2021- No [id number] 1g Take 1 [facility] r 1 gram 5-03 05-09 tablet by ity o f tablet 00:00: 04:59 mouth 2 [place] 00 :00 (two) Medical times Branch daily for 5 days. metroNIDAZO Yes [id number] 500mg Take 1 [facility] LE 500 mg 8-11 tablet by ity o f tablet 00:00: mouth [place] 00 every 12 Medical (twelve) Branch hours. metroNIDAZO Yes [id number] 500mg Take 1 [facility] LE 500 mg 8-11 tablet by ity o f tablet 00:00: mouth [place] 00 every 12 Medical (twelve) Branch hours. metroNIDAZO 2021- No [id number] 500mg Take 1 [facility] LE 500 mg 8-11 05-03 tablet by ity of tablet 00:00: 00:00 mouth [place] 00 :00 every 12 Medical (twelve) Branch hours. norethindro Yes [id number] 1{tbl} Take 1 [facility] ne 0.35 mg 8-10 tablet by ity of tablet 00:00: mouth [place] 00 daily. Medical Branch norethindro Yes [id number] 1{tbl} Take 1 [facility] ne 0.35 mg 8-10 tablet by ity of tablet 00:00: mouth [place] 00 daily. Medical Branch norethindro Yes [id number] 1{tbl} Take 1 [facility] ne 0.35 mg 8-10 tablet by ity of tablet 00:00: mouth [place] 00 daily. Medical Branch norethindro Yes [id number] 1{tbl} Take 1 [facility] ne 0.35 mg 8-10 tablet by ity of tablet 00:00: mouth [place] 00 daily. Medical Branch norethindro Yes [id number] 1{tbl} Take 1 [facility] ne 0.35 mg 8-10 tablet by ity of tablet 00:00: mouth [place] 00 daily. Medical Branch norethindro Yes [id number] 1{tbl} Take 1 [facility] ne 0.35 mg 8-10 tablet by ity of tablet 00:00: mouth [place] 00 daily. Medical Branch norethindro Yes [id number] 1{tbl} Take 1 [facility] ne 0.35 mg 8-10 tablet by ity of tablet 00:00: mouth [place] 00 daily. Medical Branch norethindro 2021- No [id number] 1{tbl} Take 1 [facility] ne 0.35 mg 8-10 11-12 tablet by ity of tablet 00:00: 00:00 mouth [place] 00 :00 daily. Medical Branch bromphenira 2020- No [id number] 5mL Take 5 mL [facility] mine-pseudo 6- 07-02 by mouth 4 i ty of ephedrine-D 00:00: 04:59 (four) [place] (BROMFED 00 :00 times Medical DM) 2-30-10 daily as Bran ch mg/5 mL needed for syrup Congestion /Allergies or Cough for up to 10 days. methylPREDN 2020- No [id number] Take by [facility] ISolone 4 6- 06-28 mouth ity of mg tablets 00:00: 04:59 SEE-INSTRU [place] 00 :00 CTIONS for Medical 6 days. Branch follow package directions bromphenira Yes [id number] 10mL Take 10 mL [facility] mine-pseudo 4-17 by mouth 4 it y of ephedrine-D 00:00: (four) [place] M (BROMFED 00 times Medical DM) 2-30-10 daily as Bran ch mg/5 mL needed for syrup Congestion /Allergies . bromphenira 2020- No [id number] 10mL Take 10 mL [facility] mine-pseudo 4-17 - by mouth 4 i ty of ephedrine-D 00:00: 00:00 (four) [place] (BROMFED 00 :00 times Medical DM) 2-30-10 daily as Bran ch mg/5 mL needed for syrup Congestion /Allergies . amoxicillin 2020- No [id number] 1{tbl} Take 1 [facility] -clavulanat 4-17 -25 tablet by it y of e 875-125 00:00: 04:59 mouth 2 [place] mg per 00 :00 (two) Medical tablet times Branch daily for 7 days. medroxyPROG 2020- No [id number] 10mg Take 1 [facility] ESTERone -09 11-28 tablet by ity o f (PROVERA) 00:00: 04:59 mouth 3 [place] 10 mg 00 :00 (three) Medical tablet times Branch daily for 10 days. medroxyPROG 2020- No [id number] 10mg Take 1 [facility] ESTERone 3-17 -28 [...] mouth ity of tablet 05:38: 00:00 at [place] 07 :00 bedtime. Medical Branch traZODone 2020- No 75mg Take 75 mg U nivers 100 mg 10-25 by mouth ity of tablet 05:38: 00:00 at [place] 07 :00 bedtime. Medical Branch multivit-mi 2020- No Take by Un husam n/ferrous 10-25 mouth. ity of fumarate 05:37: 00:00 [place] (MULTI 52 :00 Medical VITAMIN Branch ORAL) multivit-mi 2020- No Take by Un husam n/ferrous 10-25 mouth. ity of fumarate 05:37: 00:00 [place] (MULTI 52 :00 Medical VITAMIN Branch ORAL) [...] 43 :00 Medical tablet Branch miSOPROStoL Yes [id number] 200ug Take 1 [facility] 200 mcg 3-01 100 tablet by ity of tablet 00:00: mouth SEE-INSTRU Medical CTIONS. Branch Take one tab the night before and one tab the morning of procedure miSOPROStoL Yes [id number] 200ug Take 1 [facility] 200 mcg 3-01 100 tablet by ity of tablet 00:00: mouth SEE-INSTRU Medical CTIONS. Branch Take one tab the night before and one tab the morning of procedure miSOPROStoL Yes [id number] 200ug Take 1 [facility] 200 mcg 3-01 100 tablet by ity of tablet 00:00: mouth SEE-INSTRU Medical CTIONS. Branch Take one tab the night before and one tab the morning of procedure miSOPROStoL Yes [id number] 200ug Take 1 [facility] 200 mcg 3-01 100 tablet by ity of tablet 00:00: mouth SEE-INSTRU Medical CTIONS. Branch Take one tab the night before and one tab the morning of procedure miSOPROStoL Yes [id number] 200ug Take 1 [facility] 200 mcg 3-01 100 tablet by ity of tablet 00:00: mouth SEE-INSTRU Medical CTIONS. Branch Take one tab the night before and one tab the morning of procedure miSOPROStoL Yes [id number] 200ug Take 1 [facility] 200 mcg 3-01 100 tablet by ity of tablet 00:00: mouth SEE-INSTRU Medical CTIONS. Branch Take one tab the night before and one tab the morning of procedure miSOPROStoL 2020- No [id number] 200ug Take 1 [facility] 200 mcg 3-01 - 100 tablet by ity of tablet 00:00: 00:00 mouth [place] 00 :00 SEE-INSTRU Medical CTIONS. Branch Take one tab the night before and one tab the morning of procedure miSOPROStoL 2020- No [id number] 200ug Take 1 [facility] 200 mcg 10-24 100 tablet by ity of tablet 00:00: 00:00 mouth [place] 00 :00 SEE-INSTRU Medical CTIONS. Branch Take one tab the night before and one tab the morning of procedure ketorolac 2020- No 30mg 30 mg, Unive rs (TORADOL) 2-20 10- Slow IV ity of injection 03:15: 02:31 Push, [place] 30 mg 00 :00 ONCE, 1 Medical dose, Wed Branch 10/19/20 at 2115, Routine
membership administrator approving Restricted medication : GARRETT LARES tramadol Yes Take by Univer s HCl 2-25 mouth. ity of (TRAMADOL 01:28: [place] ORAL) 42 Medical Branch tramadol Yes Take by Univer s HCl 2-25 mouth. ity of (TRAMADOL 01:28: [place] ORAL) 42 Medical Branch tramadol Yes Take by Univer s HCl 2-25 mouth. ity of (TRAMADOL 01:28: [place] ORAL) 42 Medical Branch naproxen Yes [id number] 550mg Take 1 U nivers sodium 550 2-24 tablet by ity of mg tablet 00:00: mouth (two) Medical times Branch daily with meals. traMADoL Yes [id number] 50mg Take 1 [facility] (ULTRAM) 50 2-24 tablet by ity of mg tablet 00:00: mouth 00 every 6 Medical (six) Branch hours as needed for Pain (scale 7-10). Indication s: acute pain naproxen 0 Yes [id number] 550mg Take 1 U nivers sodium 550 2-24 tablet by ity of mg tablet 00:00: mouth (two) Medical times Branch daily with meals. traMADoL Yes [id number] 50mg Take 1 [facility] (ULTRAM) 50 2-24 tablet by ity of mg tablet 00:00: mouth 00 every 6 Medical (six) Branch hours as needed for Pain (scale 7-10). Indication s: acute pain naproxen 0 Yes [id number] 550mg Take 1 U nivers sodium 550 2-24 tablet by ity of mg tablet 00:00: mouth (two) Medical times Branch daily with meals. traMADoL 2020-0 Yes [id number] 50mg Take 1 [facility] (ULTRAM) 50 2-24 tablet by ity of mg tablet 00:00: mouth [place] 00 every 6 Medical (six) Branch hours as needed for Pain (scale 7-10). Indication s: acute pain naproxen 2020-0 Yes [id number] 550mg Take 1 U nivers sodium 550 2-24 tablet by ity of mg tablet 00:00: mouth (two) Medical times Branch daily with meals. traMADoL 2020-0 Yes [id number] 50mg Take 1 [facility] (ULTRAM) 50 2-24 tablet by ity of mg tablet 00:00: mouth 00 every 6 Medical (six) Branch hours as needed for Pain (scale 7-10). Indication s: acute pain naproxen 2020-0 Yes [id number] 550mg Take 1 U nivers sodium 550 2-24 tablet by ity of mg tablet 00:00: mouth (two) Medical times Branch daily with meals. traMADoL 2020-0 Yes [id number] 50mg Take 1 [facility] (ULTRAM) 50 2-24 tablet by ity of mg tablet 00:00: mouth 00 every 6 Medical (six) Branch hours as needed for Pain (scale 7-10). Indication s: acute pain naproxen 2020-0 Yes [id number] 550mg Take 1 U nivers sodium 550 2-24 tablet by ity of mg tablet 00:00: mouth (two) Medical times Branch daily with meals. traMADoL 2020-0 Yes [id number] 50mg Take 1 [facility] (ULTRAM) 50 2-24 tablet by ity of mg tablet 00:00: mouth [place] 00 every 6 Medical (six) Branch hours as needed for Pain (scale 7-10). Indication s: acute pain naproxen 2020-0 Yes [id number] 550mg Take 1 U nivers sodium 550 2-24 tablet by ity of mg tablet 00:00: mouth (two) Medical times Branch daily with meals. traMADoL 2020-0 Yes [id number] 50mg Take 1 [facility] (ULTRAM) 50 2-24 tablet by ity of mg tablet 00:00: mouth [place] 00 every 6 Medical (six) Branch hours as needed for Pain (scale 7-10). Indication s: acute pain naproxen Yes [id number] 550mg Take 1 U nivers sodium 550 [...] 7-10). Indication s: acute pain naproxen Yes [id number] 550mg Take 1 U nivers sodium 550 2-24 tablet by ity of mg tablet 00:00: mouth 00 (two) Medical times Branch daily with meals. traMADoL Yes [id number] 50mg Take 1 [facility] (ULTRAM) 50 2-24 tablet by ity of mg tablet 00:00: mouth 00 every 6 Medical (six) Branch hours as needed for Pain (scale 7-10). Indication s: acute pain naproxen 2020- No [id number] 550mg Take 1 [facility] sodium 550 2-24 [...] Indication s: acute pain naproxen 2020- No [id number] 550mg Take 1 [facility] sodium 550 2-24 [...] n/ferrous 0-12 mouth. ity of fumarate 15:53: [place] ([place] [address] Medical VITAMIN Branch ORAL) escitalopra 2019-08 Yes 20mg Take 20 mg [facility] m oxalate 0-12 by mouth ity of (LEXAPRO) 15:53: daily. [place] 20 mg 21 Medical tablet Branch traZODone 2019-08 Yes 75mg Take 75 mg Un husam 100 mg 0-12 by mouth ity of tablet 15:53: at [place] [address] bedtime. Medical Branch tramadol 2019-08 Yes Take by Univer s HCl 0-12 mouth. ity of (TRAMADOL 15:53: [place] ORAL) Medical Branch multivit-mi 2019-08 Yes Take by Uni vers n/ferrous 0-12 mouth. ity of fumarate 15:53: [place] ([facility] 21 Medical VITAMIN Branch ORAL) escitalopra 2019-08 Yes 20mg Take 20 mg [facility] m oxalate 0-12 by mouth ity of (LEXAPRO) 15:53: daily. [place] 20 mg 21 Medical tablet Branch traZODone 2019-08 Yes 75mg Take 75 mg Un husam 100 mg 0-12 by mouth ity of tablet 15:53: at [place] [address] bedtime. Medical Branch tramadol 2019-08 Yes Take by Univer s HCl 0-12 mouth. ity of (TRAMADOL 15:53: [place] ORAL) 21 Medical Branch multivit-mi 2019-08 Yes Take by Uni vers n/ferrous 0-12 mouth. ity of fumarate 15:53: [place] ([facility] 21 Medical VITAMIN Branch ORAL) escitalopra 2019-08 Yes 20mg Take 20 mg [facility] m oxalate 0-12 by mouth ity of (LEXAPRO) 15:53: daily. [place] 20 mg 21 Medical tablet Branch traZODone 2019-08 Yes 75mg Take 75 mg Un husam 100 mg 0-12 by mouth ity of tablet 15:53: at [place] [address] bedtime. Medical Branch tramadol 2019-08 Yes Take by Univer s HCl 0-12 mouth. ity of (TRAMADOL 15:53: [place] ORAL) 21 Medical Branch multivit-mi 2019-08 Yes Take by Uni vers n/ferrous 0-12 mouth. ity of fumarate 15:53: [place] (MULTI 21 Medical VITAMIN Branch ORAL) escitalopra 2019-08 Yes 20mg Take 20 mg [facility] m oxalate 0-12 by mouth ity of (LEXAPRO) 15:53: daily. [place] 20 mg 21 Medical tablet Branch traZODone 2019-08 Yes 75mg Take 75 mg Un husam 100 mg 0-12 by mouth ity of tablet 15:53: at [place] 21 bedtime. Medical Branch multivit-mi 2019-08 Yes Take by Uni vers n/ferrous 0-12 mouth. ity of fumarate 15:53: [place] ([facility] 21 Medical VITAMIN Branch ORAL) escitalopra 2019-08 Yes 20mg Take 20 mg [facility] m oxalate 0-12 by mouth ity of (LEXAPRO) 15:53: daily. [place] 20 mg 21 Medical tablet Branch traZODone 2019-08 Yes 75mg Take 75 mg Un husam 100 mg 0-12 by mouth ity of tablet 15:53: at [place] [address] bedtime. Medical Branch multivit-mi 2019-08 Yes Take by Uni vers n/ferrous 0-12 mouth. ity of fumarate 15:53: [place] ([facility] 21 Medical VITAMIN Branch ORAL) escitalopra 2019-08 Yes 20mg Take 20 mg [facility] m oxalate 0-12 by mouth ity of (LEXAPRO) 15:53: daily. [place] 20 mg 21 Medical tablet Branch traZODone 2019-08 Yes 75mg Take 75 mg Un husam 100 mg 0-12 by mouth ity of tablet 15:53: at [place] [address] bedtime. Medical Branch bromphenira 2019-08 2020- No [id number] 5mL Take 5 mL [facility] mine-pseudo 0-12 10-23 by mouth 4 i ty of ephedrine-D 00:00: 04:59 (four) [place] M (BROMFED 00 :00 times Medical DM) 2-30-10 daily as Bran ch mg/5 mL needed for syrup Congestion /Allergies for up to 10 days. acyclovir 2019-08 2020- No [id number] 400mg Take 1 [facility] 400 mg 0-12 10-20 07 tablet by ity of tablet 00:00: 04:59 mouth 3 [place] 00 :00 (three) Medical times Branch daily for 7 days. methylPREDN 2019- 2020- No [id number] Take by [facility] ISolone 4 0-12 06-13 mouth ity of mg tablets 00:00: 04:59 SEE-INSTRU [place] 00 :00 CTIONS for Medical 6 days. Branch follow package directions naproxen 2019-08 2020- No [id number] 500mg Take 1 [facility] 500 mg 0-02 06-27 9102 tablet by ity of tablet 00:00: 05:59 mouth 2 [place] 00 :00 (two) Medical times Branch daily as needed for Pain (scale 4-6) for up to 30 days. naproxen 2019- 2020- No [id number] 500mg Take 1 [facility] 500 mg 0-02 06-27 9102 tablet by ity of tablet 00:00: 05:59 mouth 2 [place] 00 :00 (two) Medical times Branch daily as needed for Pain (scale 4-6) for up to 30 days. naproxen 2019- 2020- No [id number] 500mg Take 1 [facility] 500 mg 0-06-27 9102 tablet by ity of tablet 00:00: 05:59 mouth 2 [place] 00 :00 (two) Medical times Branch daily as needed for Pain (scale 4-6) for up to 30 days. naproxen 2019- 2020- No [id number] 500mg Take 1 [facility] 500 mg 0-06-27 9102 tablet by ity of tablet 00:00: 05:59 mouth 2 [place] 00 :00 (two) Medical times Branch daily as needed for Pain (scale 4-6) for up to 30 days. methylPREDN 2019-08- No [id number] Take by [facility] ISolone 4 0-06-0302 mouth ity of mg tablets 00:00: 04:59 SEE-INSTRU [place] 00 :00 CTIONS for Medical 6 days. Branch follow package directions methylPREDN 2019-2019- No [id number] Take by [facility] ISolone 4 0-06-0302 mouth ity of mg tablets 00:00: 04:59 SEE-INSTRU [place] 00 :00 CTIONS for Medical 6 days. Branch follow package directions methylPREDN 2019-2019- No [id number] Take by [facility] ISolone 4 0-02 06-03 9102 mouth ity of mg tablets 00:00: 04:59 SEE-INSTRU [place] 00 :00 CTIONS for Medical 6 days. Branch follow package directions cyclobenzap 2019- 2020- No [id number] 5mg Take 1 [facility] rine 5 mg 0-02 10-08 tablet by ity of tablet 00:00: 04:59 mouth 3 [place] 00 :00 (three) Medical times Branch daily for 5 days. cyclobenzap 2019- 2020- No [id number] 5mg Take 1 [facility] rine 5 mg 0-02 10-08 tablet by ity of tablet 00:00: 04:59 mouth 3 [place] 00 :00 (three) Medical times Branch daily for 5 days. cyclobenzap 2019- 2020- No [id number] 5mg Take 1 [facility] rine 5 mg 0-02 10-08 tablet by ity of tablet 00:00: 04:59 mouth 3 [place] 00 :00 (three) Medical times [place] daily for 5 days. multivit-mi 2020-0 Yes Take by Uni vers n/ferrous 8-15 mouth. ity of fumarate 17:31: [place] ([place] [address] Medical VITAMIN Branch ORAL) escitalopra 2020-0 Yes 20mg Take 20 mg [facility] m oxalate 8-15 by mouth ity of (LEXAPRO) 17:31: daily. [place] 20 mg 54 Medical tablet Branch traZODone 2020-0 Yes 75mg Take 75 mg Un husam 100 mg 8-15 by mouth ity of tablet 17:31: at [place] [address] bedtime. Medical Branch multivit-mi 2020-0 Yes Take by Uni vers n/ferrous 8-15 mouth. ity of fumarate 17:31: [place] ([place] [place] [address] Medical VITAMIN Branch ORAL) escitalopra 2020-0 Yes 20mg Take 20 mg [facility] m oxalate 8-15 by mouth ity of (LEXAPRO) 17:31: daily. [place] 20 mg 54 Medical tablet Branch traZODone 2020-0 Yes 75mg Take 75 mg Un husam 100 mg 8-15 by mouth ity of tablet 17:31: at [place] [address] bedtime. Medical Branch multivit-mi 2020-0 Yes Take by Uni vers n/ferrous 8-15 mouth. ity of fumarate 17:31: [place] ([place] [address] Medical VITAMIN Branch ORAL) escitalopra 2020-0 Yes 20mg Take 20 mg [facility] m oxalate 8-15 by mouth ity of (LEXAPRO) 17:31: daily. [place] 20 mg 54 Medical tablet Branch traZODone 2020-0 Yes 75mg Take 75 mg Un [facility] 100 mg 8-15 by mouth ity of tablet 17:31: at [place] [address] bedtime. Medical Branch multivit-mi 2020-0 Yes Take by Uni vers n/ferrous 8-15 mouth. ity of fumarate 17:31: [place] ([place] [address] Medical VITAMIN Branch ORAL) escitalopra 2020-0 Yes 20mg Take 20 mg [facility] m oxalate 8-15 by mouth ity of (LEXAPRO) 17:31: daily. [place] 20 mg 54 Medical tablet Branch traZODone 2020-0 Yes 75mg Take 75 mg Un [facility] 100 mg 8-15 by mouth ity of tablet 17:31: at [place] [address] bedtime. Medical Branch multivit-mi 2020-0 Yes Take by Uni vers n/ferrous 8-15 mouth. ity of fumarate 17:31: [place] ([place] [address] Medical VITAMIN Branch ORAL) escitalopra 2020-0 Yes 20mg Take 20 mg [facility] m oxalate 8-15 by mouth ity of (LEXAPRO) 17:31: daily. [place] 20 mg 54 Medical tablet Branch traZODone 2020-0 Yes 75mg Take 75 mg Un [facility] 100 mg 8-15 by mouth ity of tablet 17:31: at [place] [address] bedtime. Medical Branch multivit-mi 2020-0 Yes Take by Uni vers n/ferrous 8-15 mouth. ity of fumarate 17:31: [place] ([place] [address] Medical VITAMIN Branch ORAL) escitalopra 2020-0 Yes 20mg Take 20 mg [facility] m oxalate 8-15 by mouth ity of (LEXAPRO) 17:31: daily. [place] 20 mg 54 Medical tablet Branch traZODone 2020-0 Yes 75mg Take 75 mg Un [facility] 100 mg 8-15 by mouth ity of tablet 17:31: at [place] [address] bedtime. Medical Branch Ursodiol Ursodiol 2020-0 Yes [...] 00:00: TIMES ans 00 DAILY NEEDED. multivit-mi 0 Yes Take by Uni vers n/ferrous 7-17 mouth. ity of fumarate 22:03: [place] (MULTI 07 Medical VITAMIN Branch ORAL) HYDROcodone 2019-0 2020- No 1{tbl} 1 tablet, Univers -acetaminop 03-06 Oral, ity of hen (NORCO 17:45: 17:08 ONCE, 1 [place] 5) 5-325 mg 00 :00 dose, Sun Med ical tablet 1 03/06/20 at [facility] h tablet 1245, [place] clindamycin 2019-0 2020- [...] stricted use approved by: [employer] PROVIDER acetaminoph Yes 4647 1{tbl} Take 1 Un husam en-codeine 7-12 tablet by ity of 300-30 mg 00:00: mouth [place] tablet 00 every 4 Medical (four) Branch hours as needed for Pain (scale 4-6). Indication s: acute pain acetaminoph Yes 4647 1{tbl} Take 1 Un husam en-codeine 7-12 tablet by ity of 300-30 mg 00:00: mouth [place] tablet 00 every 4 Medical (four) Branch hours as needed for Pain (scale 4-6). Indication s: acute pain acetaminoph 0 Yes 4647 1{tbl} Take 1 Un husam en-codeine 7-12 tablet by ity of 300-30 mg 00:00: mouth [place] tablet 00 every 4 Medical (four) Branch hours as needed for Pain (scale 4-6). Indication s: acute pain acetaminoph 0 Yes 4647 1{tbl} Take 1 Un husam [...] 4-6). Indication s: acute pain clindamycin 2019-0 2020- No [id number] 450mg Take 3 [facility] 150 mg 7-12 - capsules ity of capsule 00:00: 04:59 by mouth 3 [place] 00 :00 (three) Medical times Branch daily for 10 days. clindamycin 2020-0 2020- No [id number] 450mg Take 3 [facility] 150 mg 7-12 07-23 capsules ity of capsule 00:00: 04:59 by mouth 3 [place] 00 :00 (three) Medical times Branch daily for 10 days. clindamycin 2020-0 2020- No [id number] 450mg Take 3 [facility] 150 mg 7-12 07-23 capsules ity of capsule 00:00: 04:59 by mouth 3 [place] 00 :00 (three) Medical times Branch daily for 10 days. clindamycin 2020-0 2020- No [id number] 450mg Take 3 [facility] 150 mg 7-12 07-23 capsules ity of capsule 00:00: 04:59 by mouth 3 [place] 00 :00 (three) Medical times Branch daily for 10 days. HYDROcodone 2020-0 2020- No 1{tbl} 1 tablet, Univers -acetaminop 6-15 06-15 Oral, ONCE i ty of hen (NORCO) 04:00: 03:06 NOW, 1 [place] 10-325 mg 00 :00 dose, Sun Medic al tablet 1 02/07/20 at [facility] h tablet 2300, Routine Esgic Esgic 2020-0 Yes YASHIRA TAKE 1 TO [facility] 50-325-40 [...] 4-21 Oral, ity of (MAG-OX 14:00: DAILY, [place] 400) tablet 00 First dose Me dical 400 mg on Sat Branch 12/15/19 at 0900, Until Discontinu ed, Routine HYDROcodone 2020-0 2020- No 1{tbl} 1 tablet, Univers -acetaminop 4-21 04-21 Oral, ity of hen (NORCO 03:15: 02:14 ONCE, 1 [place] 5) 5-325 mg 00 :00 dose, Mon Med ical tablet 1 12/14/19 at [facility] h tablet 2215, [place] magnesium 2020-0 Yes [id number] 400mg Take 1 [facility] oxide 400 4-20 tablet by ity o f mg (241.3 00:00: mouth [place] mg 00 daily. Medical magnesium) Branch tablet magnesium 2020-0 Yes [id number] 400mg Take 1 [facility] oxide 400 4-20 tablet by ity o f mg (241.3 00:00: mouth [place] mg 00 daily. Medical magnesium) Branch tablet magnesium 2020-0 Yes [id number] 400mg Take 1 [facility] oxide 400 4-20 tablet by ity o f mg (241.3 00:00: mouth [place] mg 00 daily. Medical magnesium) Branch tablet magnesium 2020-0 Yes [id number] 400mg Take 1 [facility] oxide 400 4-20 tablet by ity o f mg (241.3 00:00: mouth [place] mg 00 daily. Medical magnesium) Branch tablet magnesium 2020-0 Yes [id number] 400mg Take 1 [facility] oxide 400 4-20 tablet by ity o f mg (241.3 00:00: mouth [place] mg 00 daily. Medical magnesium) Branch tablet magnesium 2020-0 Yes [id number] 400mg Take 1 [facility] oxide 400 4-20 tablet by ity o f mg (241.3 00:00: mouth [place] mg 00 daily. Medical magnesium) Branch tablet magnesium 2020-0 Yes [id number] 400mg Take 1 [facility] oxide 400 4-20 tablet by ity o f mg (241.3 00:00: mouth [place] mg 00 daily. Medical magnesium) Branch tablet magnesium 2020-0 Yes [id number] 400mg Take 1 [facility] oxide 400 4-20 tablet by ity o f mg (241.3 00:00: mouth [place] mg 00 daily. Medical magnesium) Branch tablet magnesium 2020-0 Yes [id number] 400mg Take 1 [facility] oxide 400 4-20 tablet by ity o f mg (241.3 00:00: mouth [place] mg 00 daily. Medical magnesium) Branch tablet magnesium 2020-0 Yes [id number] 400mg Take 1 [facility] oxide 400 4-20 tablet by ity o f mg (241.3 00:00: mouth [place] mg 00 daily. Medical magnesium) Branch tablet magnesium 2020-0 Yes [id number] 400mg Take 1 [facility] oxide 400 4-20 tablet by ity o f mg (241.3 00:00: mouth [place] mg 00 daily. Medical magnesium) Branch tablet magnesium 2020-0 Yes [id number] 400mg Take 1 [facility] oxide 400 4-20 tablet by ity o f mg (241.3 00:00: mouth [place] mg 00 daily. Medical magnesium) Branch tablet magnesium 2020-0 Yes [id number] 400mg Take 1 [facility] oxide 400 4-20 tablet by ity o f mg (241.3 00:00: mouth [place] mg 00 daily. Medical magnesium) Branch tablet magnesium 2020-0 Yes [id number] 400mg Take 1 [facility] oxide 400 4-20 tablet by ity o f mg (241.3 00:00: mouth [place] mg 00 daily. Medical magnesium) Branch tablet magnesium 2020-0 Yes [id number] 400mg Take 1 [facility] oxide 400 4-20 tablet by ity o f mg (241.3 00:00: mouth [place] mg 00 daily. Medical magnesium) Branch tablet magnesium 2020-0 Yes [id number] 400mg Take 1 [facility] oxide 400 4-20 tablet by ity o f mg (241.3 00:00: mouth [place] mg 00 daily. Medical magnesium) Branch tablet magnesium 2020-0 Yes [id number] 400mg Take 1 [facility] oxide 400 4-20 tablet by ity o f mg (241.3 00:00: mouth [place] mg 00 daily. Medical magnesium) Branch tablet magnesium 2020-0 Yes [id number] 400mg Take 1 [facility] oxide 400 4-20 tablet by ity o f mg (241.3 00:00: mouth [place] mg 00 daily. Medical magnesium) Branch tablet magnesium 2020-0 Yes [id number] 400mg Take 1 [facility] oxide 400 4-20 tablet by ity o f mg (241.3 00:00: mouth [place] mg 00 daily. Medical magnesium) Branch tablet magnesium 2020-0 Yes [id number] 400mg Take 1 [facility] oxide 400 4-20 tablet by ity o f mg (241.3 00:00: mouth [place] mg 00 daily. Medical magnesium) Branch tablet magnesium 2020-0 Yes [id number] 400mg Take 1 [facility] oxide 400 4-20 tablet by ity o f mg (241.3 00:00: mouth [place] mg 00 daily. Medical magnesium) Branch tablet magnesium 2020-0 Yes [id number] 400mg Take 1 [facility] oxide 400 4-20 tablet by ity o f mg (241.3 00:00: mouth [place] mg 00 daily. Medical magnesium) Branch tablet magnesium 2020-0 Yes [id number] 400mg Take 1 [facility] oxide 400 4-20 tablet by ity o f mg (241.3 00:00: mouth [place] mg 00 daily. Medical magnesium) Branch tablet magnesium 2019-0 Yes [id number] 400mg Take 1 [facility] oxide 400 4-20 tablet by ity o f mg (241.3 00:00: mouth [place] mg 00 daily. Medical magnesium) Branch tablet magnesium 2019-0 Yes [id number] 400mg Take 1 [facility] oxide 400 4-20 tablet by ity o f mg (241.3 00:00: mouth [place] mg 00 daily. Medical magnesium) Branch tablet magnesium 2019-0 Yes [id number] 400mg Take 1 [facility] oxide 400 4-20 tablet by ity o f mg (241.3 00:00: mouth [place] mg 00 daily. Medical magnesium) Branch tablet magnesium 2019-2020- No [id number] 400mg Take 1 [facility] oxide 400 4-20 03-01 tablet by ity of mg (241.3 00:00: 00:00 mouth [place] mg 00 :00 daily. Medical magnesium) Branch tablet magnesium 0 2021- No [id number] 400mg Take 1 [facility] oxide 400 4-20 03-01 tablet by ity of mg (241.3 00:00: 00:00 mouth [place] mg 00 :00 daily. Medical magnesium) Branch tablet traZODone traZODone 2019-0 Yes KAVIN 1.5 TAKE 1.5 [facility] HCl - 50 MG HCl - 50 MG 4-15 [facility] TABLET [facility] Oral Tablet Oral Tablet 00:00: M.D. BEDTIME ans Escitalopra Escitalopra 2019-0 Yes KAVIN 1 QD TAKE 1 [facility] m Oxalate m Oxalate 4-15 [facility] TABLET [facility] 20 MG Oral 20 MG Oral 00:00: M.D. DAILY. ans Tablet Tablet 00 metroNIDAZO metroNIDAZO 2019-0 Yes CHASE TAKE 4 [facility] LE 500 MG LE 500 MG 4-09 [facility] TABLETS [facility] Oral Tablet Oral Tablet 00:00: M.D. ONCE. ans 00 multivit-mi 2019-0 Yes Take by Uni vers n/ferrous 3-23 mouth. ity of fumarate 14:12: [place] (MULTI 20 Medical VITAMIN Branch ORAL) multivit-mi 2020-0 Yes Take by Uni vers n/ferrous 3-23 mouth. ity of fumarate 14:12: [place] (MULTI 20 Medical VITAMIN Branch ORAL) multivit-mi 2020-0 Yes Take by Uni vers n/ferrous 3-23 mouth. ity of fumarate 14:12: [place] (MULTI 20 Medical VITAMIN Branch ORAL) multivit-mi 2020-0 Yes Take by Uni vers n/ferrous 3-23 mouth. ity of fumarate 14:12: [place] (MULTI 20 Medical VITAMIN Branch ORAL) multivit-mi 2020-0 Yes Take by Uni vers n/ferrous 3-23 mouth. ity of fumarate 14:12: [place] (MULTI 20 Medical VITAMIN Branch ORAL) multivit-mi 2020-0 Yes Take by Uni vers n/ferrous 3-23 mouth. ity of fumarate 14:12: [place] (MULTI 20 Medical VITAMIN Branch ORAL) multivit-mi 2020-0 Yes Take by Uni vers n/ferrous 3-23 mouth. ity of fumarate 14:12: [place] (MULTI 20 Medical VITAMIN Branch ORAL) multivit-mi 2020-0 Yes Take by Uni vers n/ferrous 3-23 mouth. ity of fumarate 14:12: [place] (MULTI 20 Medical VITAMIN Branch ORAL) multivit-mi 2020-0 Yes Take by Uni vers n/ferrous 3-23 mouth. ity of fumarate 14:12: [place] (MULTI 20 Medical VITAMIN Branch ORAL) multivit-mi 2020-0 Yes Take by Uni vers n/ferrous 3-23 mouth. ity of fumarate 14:12: [place] (MULTI 20 Medical VITAMIN Branch ORAL) multivit-mi 2020-0 Yes Take by Uni vers n/ferrous 3-23 mouth. ity of fumarate 14:12: [place] (MULTI 20 Medical VITAMIN Branch ORAL) multivit-mi 2020-0 Yes Take by Uni vers n/ferrous 3-23 mouth. ity of fumarate 14:12: [place] (MULTI 20 Medical VITAMIN Branch ORAL) multivit-mi 2020-0 Yes Take by Uni vers n/ferrous 3-23 mouth. ity of fumarate 14:12: [place] (MULTI 20 Medical VITAMIN Branch ORAL) multivit-mi 2020-0 Yes Take by Uni vers n/ferrous 3-23 mouth. ity of fumarate 14:12: [place] (MULTI 20 Medical VITAMIN Branch ORAL) multivit-mi 2020-0 Yes Take by Uni vers n/ferrous 3-23 mouth. ity of fumarate 14:12: [place] (MULTI 20 Medical VITAMIN Branch ORAL) multivit-mi 2020-0 Yes Take by Uni vers n/ferrous 3-23 mouth. ity of fumarate 14:12: [place] (MULTI 20 Medical VITAMIN Branch ORAL) multivit-mi 2020-0 Yes Take by Uni vers n/ferrous 3-23 mouth. ity of fumarate 14:12: [place] (MULTI 20 Medical VITAMIN Branch ORAL) multivit-mi 2019-0 Yes Take by Uni vers n/ferrous 3-23 mouth. ity of fumarate 14:12: [place] (MULTI 20 Medical VITAMIN Branch ORAL) multivit-mi 2020-0 Yes Take by Uni vers n/ferrous 3-23 mouth. ity of fumarate 14:12: [place] (MULTI 20 Medical VITAMIN Branch ORAL) multivit-mi 2019-0 Yes Take by Uni vers n/ferrous 3-23 mouth. ity of fumarate 14:12: [place] (MULTI 20 Medical VITAMIN Branch ORAL) multivit-mi 2019-0 Yes Take by Uni vers n/ferrous 3-23 mouth. ity of fumarate 14:12: [place] (MULTI 20 Medical VITAMIN Branch ORAL) multivit-mi 2019-0 Yes Take by Uni vers n/ferrous 3-23 mouth. ity of fumarate 14:12: [place] (MULTI 20 Medical VITAMIN Branch ORAL) multivit-mi 2019-0 Yes Take by Uni vers n/ferrous 3-23 mouth. ity of fumarate 14:12: [place] (MULTI 20 Medical VITAMIN Branch ORAL) multivit-mi 2019-0 Yes Take by Uni vers n/ferrous 3-23 mouth. ity of fumarate 14:12: [place] (MULTI 20 Medical VITAMIN Branch ORAL) multivit-mi 2019-0 Yes Take by Uni vers n/ferrous 3-23 mouth. ity of fumarate 14:12: [place] (MULTI 20 Medical VITAMIN Branch ORAL) multivit-mi 2019-0 Yes Take by Uni vers n/ferrous 3-23 mouth. ity of fumarate 14:12: [place] (MULTI 20 Medical VITAMIN Branch ORAL) acetaminoph 2019-0 Yes [id number] 1{capsu Take 1 Univers en-caff-but 11-15 le} capsule by it y of albital 00:00: mouth [place] (ESGIC) per 00 every 6 Medic al capsule (six) Branch hours as needed (migraine headache). proCHLORper 2020-0 Yes [id number] 10mg Take 1 Univers azine 3-23 tablet by ity of (COMPAZINE) 00:00: mouth [place] 10 mg 00 every 6 Medical tablet (six) Branch hours as needed (migraine headache). proCHLORper 2020-0 Yes [id number] 10mg Take 1 [facility] azine 3-23 tablet by ity of (COMPAZINE) 00:00: mouth [place] 10 mg 00 every 6 Medical tablet (six) Branch hours as needed (migraine headache). proCHLORper 2020-0 Yes [id number] 10mg Take 1 [facility] azine 3-23 tablet by ity of (COMPAZINE) 00:00: mouth [place] 10 mg 00 every 6 Medical tablet (six) Branch hours as needed (migraine headache). proCHLORper 2020-0 Yes [id number] 10mg Take 1 [facility] azine 3-23 tablet by ity of (COMPAZINE) 00:00: mouth [place] 10 mg 00 every 6 Medical tablet (six) Branch hours as needed (migraine headache). proCHLORper 2020-0 Yes [id number] 10mg Take 1 [facility] azine 3-23 tablet by ity of (COMPAZINE) 00:00: mouth [place] 10 mg 00 every 6 Medical tablet (six) Branch hours as needed (migraine headache). proCHLORper 2020-0 Yes [id number] 10mg Take 1 [facility] azine 3-23 tablet by ity of (COMPAZINE) 00:00: mouth [place] 10 mg 00 every 6 Medical tablet (six) Branch hours as needed (migraine headache). proCHLORper 2020-0 Yes [id number] 10mg Take 1 [facility] azine 3-23 tablet by ity of (COMPAZINE) 00:00: mouth [place] 10 mg 00 every 6 Medical tablet (six) Branch hours as needed (migraine headache). acetaminoph 2020-0 Yes [id number] 1{capsu Take 1 [facility] en-caff-but 3-23 le} capsule by it y of albital 00:00: mouth [place] (ESGIC) per 00 every 6 Medic al capsule (six) Branch hours as needed (migraine headache). proCHLORper 2020-0 Yes [id number] 10mg Take 1 [facility] azine 3-23 tablet by ity of (COMPAZINE) 00:00: mouth [place] 10 mg 00 every 6 Medical tablet (six) Branch hours as needed (migraine headache). acetaminoph 2020-0 Yes [id number] 1{capsu Take 1 Univers en-caff-but 3-23 le} capsule by it y of albital 00:00: mouth [place] (ESGIC) per 00 every 6 Medic al capsule (six) Branch hours as needed (migraine headache). proCHLORper 2020-0 Yes [id number] 10mg Take 1 [facility] azine 3-23 tablet by ity of (COMPAZINE) 00:00: mouth [place] 10 mg 00 every 6 Medical tablet (six) Branch hours as needed (migraine headache). acetaminoph 2020-0 Yes [id number] 1{capsu Take 1 Univers en-caff-but 3-23 le} capsule by it y of albital 00:00: mouth [place] (ESGIC) per 00 every 6 Medic al capsule (six) Branch hours as needed (migraine headache). proCHLORper 2020-0 Yes [id number] 10mg Take 1 [facility] azine 3-23 tablet by ity of (COMPAZINE) 00:00: mouth [place] 10 mg 00 every 6 Medical tablet (six) Branch hours as needed (migraine headache). acetaminoph 2020-0 Yes [id number] 1{capsu Take 1 [facility] en-caff-but 3-23 le} capsule by it y of albital 00:00: mouth [place] (ESGIC) per 00 every 6 Medic al capsule (six) Branch hours as needed (migraine headache). proCHLORper 2020-0 Yes [id number] 10mg Take 1 [facility] azine 3-23 tablet by ity of (COMPAZINE) 00:00: mouth [place] 10 mg 00 every 6 Medical tablet (six) Branch hours as needed (migraine headache). acetaminoph 2020-0 Yes [id number] 1{capsu Take 1 [facility] en-caff-but 3-23 le} capsule by it y of albital 00:00: mouth [place] (ESGIC) per 00 every 6 Medic al capsule (six) Branch hours as needed (migraine headache). proCHLORper 2020-0 Yes [id number] 10mg Take 1 [facility] azine 3-23 tablet by ity of (COMPAZINE) 00:00: mouth [place] 10 mg 00 every 6 Medical tablet (six) Branch hours as needed (migraine headache). acetaminoph 2020-0 Yes [id number] 1{capsu Take 1 [facility] en-caff-but 3-23 le} capsule by it y of albital 00:00: mouth [place] (ESGIC) per 00 every 6 Medic al capsule (six) Branch hours as needed (migraine headache). proCHLORper 2020-0 Yes [id number] 10mg Take 1 [facility] azine 3-23 tablet by ity of (COMPAZINE) 00:00: mouth [place] 10 mg 00 every 6 Medical tablet (six) Branch hours as needed (migraine headache). acetaminoph 2020-0 Yes [id number] 1{capsu Take 1 [facility] en-caff-but 3-23 le} capsule by it y of albital 00:00: mouth [place] (ESGIC) per 00 every 6 Medic al capsule (six) Branch hours as needed (migraine headache). proCHLORper 2020-0 Yes [id number] 10mg Take 1 [facility] azine 3-23 tablet by ity of (COMPAZINE) 00:00: mouth [place] 10 mg 00 every 6 Medical tablet (six) Branch hours as needed (migraine headache). acetaminoph 2020-0 Yes [id number] 1{capsu Take 1 [facility] en-caff-but 3-23 le} capsule by it y of albital 00:00: mouth [place] (ESGIC) per 00 every 6 Medic al capsule (six) Branch hours as needed (migraine headache). proCHLORper 2020-0 Yes [id number] 10mg Take 1 [facility] azine 3-23 tablet by ity of (COMPAZINE) 00:00: mouth [place] 10 mg 00 every 6 Medical tablet (six) Branch hours as needed (migraine headache). acetaminoph 2020-0 Yes [id number] 1{capsu Take 1 [facility] en-caff-but 3-23 le} capsule by it y of albital 00:00: mouth [place] (ESGIC) per 00 every 6 Medic al capsule (six) Branch hours as needed (migraine headache). proCHLORper 2020-0 Yes [id number] 10mg Take 1 [facility] azine 3-23 tablet by ity of (COMPAZINE) 00:00: mouth [place] 10 mg 00 every 6 Medical tablet (six) Branch hours as needed (migraine headache). acetaminoph 2020-0 Yes [id number] 1{capsu Take 1 [facility] en-caff-but 3-23 le} capsule by it y of albital 00:00: mouth [place] (ESGIC) per 00 every 6 Medic al capsule (six) Branch hours as needed (migraine headache). proCHLORper 2020-0 Yes [id number] 10mg Take 1 [facility] azine 3-23 tablet by ity of (COMPAZINE) 00:00: mouth [place] 10 mg 00 every 6 Medical tablet (six) Branch hours as needed (migraine headache). acetaminoph 2020-0 Yes [id number] 1{capsu Take 1 [facility] en-caff-but 3-23 le} capsule by it y of albital 00:00: mouth [place] (ESGIC) per 00 every 6 Medic al capsule (six) Branch hours as needed (migraine headache). proCHLORper 2020-0 Yes [id number] 10mg Take 1 [facility] azine 3-23 tablet by ity of (COMPAZINE) 00:00: mouth [place] 10 mg 00 every 6 Medical tablet (six) Branch hours as needed (migraine headache). acetaminoph 2020-0 Yes [id number] 1{capsu Take 1 [facility] en-caff-but 3-23 le} capsule by it y of albital 00:00: mouth [place] (ESGIC) per 00 every 6 Medic al capsule (six) Branch hours as needed (migraine headache). proCHLORper 2020-0 Yes [id number] 10mg Take 1 [facility] azine 3-23 tablet by ity of (COMPAZINE) 00:00: mouth [place] 10 mg 00 every 6 Medical tablet (six) Branch hours as needed (migraine headache). acetaminoph 2020-0 Yes [id number] 1{capsu Take 1 [facility] en-caff-but 3-23 le} capsule by it y of albital 00:00: mouth [place] (ESGIC) per 00 every 6 Medic al capsule (six) Branch hours as needed (migraine headache). proCHLORper 2020-0 Yes [id number] 10mg Take 1 [facility] azine 3-23 tablet by ity of (COMPAZINE) 00:00: mouth [place] 10 mg 00 every 6 Medical tablet (six) Branch hours as needed (migraine headache). acetaminoph 2020-0 Yes [id number] 1{capsu Take 1 [facility] en-caff-but 3-23 le} capsule by it y of albital 00:00: mouth [place] (ESGIC) per 00 every 6 Medic al capsule (six) Branch hours as needed (migraine headache). proCHLORper 2020-0 Yes [id number] 10mg Take 1 [facility] azine 3-23 tablet by ity of (COMPAZINE) 00:00: mouth [place] 10 mg 00 every 6 Medical tablet (six) Branch hours as needed (migraine headache). acetaminoph 2020-0 Yes [id number] 1{capsu Take 1 [facility] en-caff-but 3-23 le} capsule by it y of albital 00:00: mouth [place] (ESGIC) per 00 every 6 Medic al capsule (six) Branch hours as needed (migraine headache). proCHLORper 2020-0 Yes [id number] 10mg Take 1 [facility] azine 3-23 tablet by ity of (COMPAZINE) 00:00: mouth [place] 10 mg 00 every 6 Medical tablet (six) Branch hours as needed (migraine headache). acetaminoph 2020-0 Yes [id number] 1{capsu Take 1 [facility] en-caff-but 3-23 le} capsule by it y of albital 00:00: mouth [place] (ESGIC) per 00 every 6 Medic al capsule (six) Branch hours as needed (migraine headache). proCHLORper 2020-0 Yes [id number] 10mg Take 1 [facility] azine 3-23 tablet by ity of (COMPAZINE) 00:00: mouth [place] 10 mg 00 every 6 Medical tablet (six) Branch hours as needed (migraine headache). acetaminoph 2020-0 Yes [id number] 1{capsu Take 1 [facility] en-caff-but 3-23 le} capsule by it y of albital 00:00: mouth [place] (ESGIC) per 00 every 6 Medic al capsule (six) Branch hours as needed (migraine headache). proCHLORper 2020-0 Yes [id number] 10mg Take 1 [facility] azine 3-23 tablet by ity of (COMPAZINE) 00:00: mouth [place] 10 mg 00 every 6 Medical tablet (six) Branch hours as needed (migraine headache). acetaminoph 2020-0 Yes [id number] 1{capsu Take 1 [facility] en-caff-but 3-23 le} capsule by it y of albital 00:00: mouth [place] (ESGIC) per 00 every 6 Medic al capsule (six) Branch hours as needed (migraine headache). proCHLORper 2020-0 Yes [id number] 10mg Take 1 [facility] azine 3-23 tablet by ity of (COMPAZINE) 00:00: mouth [place] 10 mg 00 every 6 Medical tablet (six) Branch hours as needed (migraine headache). acetaminoph 2020-0 Yes [id number] 1{capsu Take 1 [facility] en-caff-but 3-23 le} capsule by it y of albital 00:00: mouth [place] (ESGIC) per 00 every 6 Medic al capsule (six) Branch hours as needed (migraine headache). proCHLORper 2020-0 Yes [id number] 10mg Take 1 [facility] azine 3-23 tablet by ity of (COMPAZINE) 00:00: mouth [place] 10 mg 00 every 6 Medical tablet (six) Branch hours as needed (migraine headache). acetaminoph 2020-0 Yes [id number] 1{capsu Take 1 [facility] en-caff-but 3-23 le} capsule by it y of albital 00:00: mouth [place] (ESGIC) per 00 every 6 Medic al capsule (six) Branch hours as needed (migraine headache). proCHLORper 2020-0 Yes [id number] 10mg Take 1 [facility] azine 3-23 tablet by ity of (COMPAZINE) 00:00: mouth [place] 10 mg 00 every 6 Medical tablet (six) Branch hours as needed (migraine headache). acetaminoph 2020-0 Yes [id number] 1{capsu Take 1 [facility] en-caff-but 3-23 le} capsule by it y of albital 00:00: mouth [place] (ESGIC) per 00 every 6 Medic al capsule (six) Branch hours as needed (migraine headache). proCHLORper 2020-0 Yes [id number] 10mg Take 1 [facility] azine 3-23 tablet by ity of (COMPAZINE) 00:00: mouth [place] 10 mg 00 every 6 Medical tablet (six) Branch hours as needed (migraine headache). acetaminoph 2020-0 Yes [id number] 1{capsu Take 1 [facility] en-caff-but 3-23 le} capsule by it y of albital 00:00: mouth [place] (ESGIC) per 00 every 6 Medic al capsule (six) Branch hours as needed (migraine headache). proCHLORper 2020-0 Yes [id number] 10mg Take 1 [facility] azine 3-23 tablet by ity of (COMPAZINE) 00:00: mouth [place] 10 mg 00 every 6 Medical tablet (six) Branch hours as needed (migraine headache). acetaminoph 2020-0 Yes [id number] 1{capsu Take 1 [facility] en-caff-but 3-23 le} capsule by it y of albital 00:00: mouth [place] (ESGIC) per 00 every 6 Medic al capsule (six) Branch hours as needed (migraine headache). proCHLORper 2020-0 Yes [id number] 10mg Take 1 [facility] azine 3-23 tablet by ity of (COMPAZINE) 00:00: mouth [place] 10 mg 00 every 6 Medical tablet (six) Branch hours as needed (migraine headache). acetaminoph 2020-0 Yes [id number] 1{capsu Take 1 Univers en-caff-but 3-23 le} capsule by it y of albital 00:00: mouth [place] (ESGIC) per 00 every 6 Medic al capsule (six) Branch hours as needed (migraine headache). proCHLORper 2020-0 Yes [id number] 10mg Take 1 [facility] azine 3-23 tablet by ity of (COMPAZINE) 00:00: mouth [place] 10 mg 00 every 6 Medical tablet (six) Branch hours as needed (migraine headache). acetaminoph 2020-0 Yes [id number] 1{capsu Take 1 [facility] en-caff-but 3-23 le} capsule by it y of albital 00:00: mouth [place] (ESGIC) per 00 every 6 Medic al capsule (six) Branch hours as needed (migraine headache). proCHLORper 2020-0 Yes [id number] 10mg Take 1 [facility] azine 3-23 tablet by ity of (COMPAZINE) 00:00: mouth [place] 10 mg 00 every 6 Medical tablet (six) Branch hours as needed (migraine headache). acetaminoph 2020-0 Yes [id number] 1{capsu Take 1 [facility] en-caff-but 3-23 le} capsule by it y of albital 00:00: mouth [place] (ESGIC) per 00 every 6 Medic al capsule (six) Branch hours as needed (migraine headache). proCHLORper 2020-0 Yes [id number] 10mg Take 1 [facility] azine 3-23 tablet by ity of (COMPAZINE) 00:00: mouth [place] 10 mg 00 every 6 Medical tablet (six) Branch hours as needed (migraine headache). acetaminoph 2020-0 Yes [id number] 1{capsu Take 1 [facility] en-caff-but 3-23 le} capsule by it y of albital 00:00: mouth [place] (ESGIC) per 00 every 6 Medic al capsule (six) Branch hours as needed (migraine headache). proCHLORper 2020-0 Yes [id number] 10mg Take 1 [facility] azine 3-23 tablet by ity of (COMPAZINE) 00:00: mouth [place] 10 mg 00 every 6 Medical tablet (six) Branch hours as needed (migraine headache). acetaminoph 2020-0 Yes [id number] 1{capsu Take 1 [facility] en-caff-but 3-23 le} capsule by it y of albital 00:00: mouth [place] (ESGIC) per 00 every 6 Medic al capsule (six) Branch hours as needed (migraine headache). proCHLORper 2020-0 Yes [id number] 10mg Take 1 [facility] azine 3-23 tablet by ity of (COMPAZINE) 00:00: mouth [place] 10 mg 00 every 6 Medical tablet (six) Branch hours as needed (migraine headache). acetaminoph 2020-0 Yes [id number] 1{capsu Take 1 [facility] en-caff-but 3-23 le} capsule by it y of albital 00:00: mouth [place] (ESGIC) per 00 every 6 Medic al capsule (six) Branch hours as needed (migraine headache). proCHLORper 2020-0 Yes [id number] 10mg Take 1 [facility] azine 3-23 tablet by ity of (COMPAZINE) 00:00: mouth [place] 10 mg 00 every 6 Medical tablet (six) Branch hours as needed (migraine headache). acetaminoph 2020-0 Yes [id number] 1{capsu Take 1 [facility] en-caff-but 3-23 le} capsule by it y of albital 00:00: mouth [place] (ESGIC) per 00 every 6 Medic al capsule (six) Branch hours as needed (migraine headache). proCHLORper 2020-0 Yes [id number] 10mg Take 1 [facility] azine 3-23 tablet by ity of (COMPAZINE) 00:00: mouth [place] 10 mg 00 every 6 Medical tablet (six) Branch hours as needed (migraine headache). acetaminoph 2020-0 Yes [id number] 1{capsu Take 1 [facility] en-caff-but 3-23 le} capsule by it y of albital 00:00: mouth [place] (ESGIC) per 00 every 6 Medic al capsule (six) Branch hours as needed (migraine headache). proCHLORper 2020-0 Yes [id number] 10mg Take 1 [facility] azine 3-23 tablet by ity of (COMPAZINE) 00:00: mouth [place] 10 mg 00 every 6 Medical tablet (six) Branch hours as needed (migraine headache). acetaminoph 2020-0 Yes [id number] 1{capsu Take 1 [facility] en-caff-but 3-23 le} capsule by it y of albital 00:00: mouth [place] (ESGIC) per 00 every 6 Medic al capsule (six) Branch hours as needed (migraine headache). proCHLORper 2020-0 Yes [id number] 10mg Take 1 [facility] azine 3-23 tablet by ity of (COMPAZINE) 00:00: mouth [place] 10 mg 00 every 6 Medical tablet (six) Branch hours as needed (migraine headache). proCHLORper 2020-0 2020- No [id number] 10mg Take 1 [facility] azine 3-23 03-01 tablet by ity of (COMPAZINE) 00:00: 00:00 [place] 10 mg 00 :00 every 6 Medical tablet (six) Branch hours as needed (migraine headache). proCHLORper 2020-0 2020- No [id number] 10mg Take 1 [facility] azine 3-23 03-01 tablet by ity of (COMPAZINE) 00:00: 00:00 [place] 10 mg 00 :00 every 6 Medical tablet (six) Branch hours as needed (migraine headache). acetaminoph 2020-0 2020- No [id number] 1{capsu Take 1 [facility] en-caff-but 3-23 10-12 [...] 2-27 mouth. ity of fumarate 18:59: [place] ([facility] 53 Medical VITAMIN Branch ORAL) multivit-mi 2020-0 Yes Take by Uni vers n/ferrous 2-27 mouth. ity of fumarate 18:59: [place] ([facility] 53 Medical VITAMIN Branch ORAL) proMETHazin 2020-0 Yes [id number] 25mg Take 1 Univers e 25 mg 2-27 tablet by ity of tablet 00:00: mouth [place] 00 every 4 Medical (four) Branch hours as needed for Nausea and Vomiting (N/V). proMETHazin 2020-0 Yes [id number] 25mg Take 1 Univers e 25 mg 2-27 tablet by ity of tablet 00:00: mouth [place] 00 every 4 Medical (four) Branch hours as needed for Nausea and Vomiting (N/V). proMETHazin 2020-0 Yes [id number] 25mg Take 1 Univers e 25 mg 2-27 tablet by ity of tablet 00:00: mouth [place] 00 every 4 Medical (four) Branch hours as needed for Nausea and Vomiting (N/V). proMETHazin 2020-0 Yes [id number] 25mg Take 1 [facility] e 25 mg 2-27 tablet by ity of tablet 00:00: mouth [place] 00 every 4 Medical (four) Branch hours as needed for Nausea and Vomiting (N/V). proMETHazin 2020-0 Yes [id number] 25mg Take 1 Univers e 25 mg 2-27 tablet by ity of tablet 00:00: mouth [place] 00 every 4 Medical (four) Branch hours as needed for Nausea and Vomiting (N/V). proMETHazin 2020-0 Yes [id number] 25mg Take 1 [facility] e 25 mg 2-27 tablet by ity of tablet 00:00: mouth [place] 00 every 4 Medical (four) Branch hours as needed for Nausea and Vomiting (N/V). proMETHazin 2020-0 Yes [id number] 25mg Take 1 [facility] e 25 mg 2-27 tablet by ity of tablet 00:00: mouth [place] 00 every 4 Medical (four) Branch hours as needed for Nausea and Vomiting (N/V). proMETHazin 2020-0 Yes [id number] 25mg Take 1 [facility] e 25 mg 2-27 tablet by ity of tablet 00:00: mouth [place] 00 every 4 Medical (four) Branch hours as needed for Nausea and Vomiting (N/V). proMETHazin 2020-0 Yes [id number] 25mg Take 1 [facility] e 25 mg 2-27 tablet by ity of tablet 00:00: mouth [place] 00 every 4 Medical (four) Branch hours as needed for Nausea and Vomiting (N/V). proMETHazin 2020-0 Yes [id number] 25mg Take 1 [facility] e 25 mg 2-27 tablet by ity of tablet 00:00: mouth [place] 00 every 4 Medical (four) Branch hours as needed for Nausea and Vomiting (N/V). proMETHazin 2020-0 Yes [id number] 25mg Take 1 [facility] e 25 mg 2-27 tablet by ity of tablet 00:00: mouth [place] 00 every 4 Medical (four) Branch hours as needed for Nausea and Vomiting (N/V). proMETHazin 2020-0 Yes [id number] 25mg Take 1 [facility] e 25 mg 2-27 tablet by ity of tablet 00:00: mouth [place] 00 every 4 Medical (four) Branch hours as needed for Nausea and Vomiting (N/V). proMETHazin 2020-0 Yes [id number] 25mg Take 1 Univers e 25 mg 2-27 tablet by ity of tablet 00:00: mouth [place] 00 every 4 Medical (four) Branch hours as needed for Nausea and Vomiting (N/V). proMETHazin 2020-0 Yes [id number] 25mg Take 1 Univers e 25 mg 2-27 tablet by ity of tablet 00:00: mouth [place] 00 every 4 Medical (four) Branch hours as needed for Nausea and Vomiting (N/V). proMETHazin 2020-0 Yes [id number] 25mg Take 1 Univers e 25 mg 2-27 tablet by ity of tablet 00:00: mouth [place] 00 every 4 Medical (four) Branch hours as needed for Nausea and Vomiting (N/V). proMETHazin 2020-0 Yes [id number] 25mg Take 1 Univers e 25 mg 2-27 tablet by ity of tablet 00:00: mouth [place] 00 every 4 Medical (four) Branch hours as needed for Nausea and Vomiting (N/V). proMETHazin 2020-0 Yes [id number] 25mg Take 1 [facility] e 25 mg 2-27 tablet by ity of tablet 00:00: mouth [place] 00 every 4 Medical (four) Branch hours as needed for Nausea and Vomiting (N/V). proMETHazin 2020-0 Yes [id number] 25mg Take 1 [facility] e 25 mg 2-27 tablet by ity of tablet 00:00: mouth [place] 00 every 4 Medical (four) Branch hours as needed for Nausea and Vomiting (N/V). proMETHazin 2020-0 Yes [id number] 25mg Take 1 Univers e 25 mg 2-27 tablet by ity of tablet 00:00: mouth [place] 00 every 4 Medical (four) Branch hours as needed for Nausea and Vomiting (N/V). proMETHazin 2020-0 Yes [id number] 25mg Take 1 Univers e 25 mg 2-27 tablet by ity of tablet 00:00: mouth [place] 00 every 4 Medical (four) Branch hours as needed for Nausea and Vomiting (N/V). proMETHazin 2020-0 Yes [id number] 25mg Take 1 Univers e 25 mg 2-27 tablet by ity of tablet 00:00: mouth [place] 00 every 4 Medical (four) Branch hours as needed for Nausea and Vomiting (N/V). proMETHazin 2020-0 Yes [id number] 25mg Take 1 Univers e 25 mg 2-27 tablet by ity of tablet 00:00: mouth [place] 00 every 4 Medical (four) Branch hours as needed for Nausea and Vomiting (N/V). proMETHazin 2020-0 Yes [id number] 25mg Take 1 Univers e 25 mg 2-27 tablet by ity of tablet 00:00: mouth [place] 00 every 4 Medical (four) Branch hours as needed for Nausea and Vomiting (N/V). proMETHazin 2020-0 Yes [id number] 25mg Take 1 Univers e 25 mg 2-27 tablet by ity of tablet 00:00: mouth [place] 00 every 4 Medical (four) Branch hours as needed for Nausea and Vomiting (N/V). proMETHazin 2020-0 Yes [id number] 25mg Take 1 Univers e 25 mg 2-27 tablet by ity of tablet 00:00: mouth [place] 00 every 4 Medical (four) Branch hours as needed for Nausea and Vomiting (N/V). proMETHazin 2020-0 Yes [id number] 25mg Take 1 Univers e 25 mg 2-27 tablet by ity of tablet 00:00: mouth [place] 00 every 4 Medical (four) Branch hours as needed for Nausea and Vomiting (N/V). proMETHazin 2020-0 Yes [id number] 25mg Take 1 [facility] e 25 mg 2-27 tablet by ity of tablet 00:00: mouth [place] 00 every 4 Medical (four) Branch hours as needed for Nausea and Vomiting (N/V). proMETHazin 2020-0 Yes [id number] 25mg Take 1 Univers e 25 mg 2-27 tablet by ity of tablet 00:00: mouth [place] 00 every 4 Medical (four) Branch hours as needed for Nausea and Vomiting (N/V). proMETHazin 2020-0 Yes [id number] 25mg Take 1 Univers e 25 mg 2-27 tablet by ity of tablet 00:00: mouth [place] 00 every 4 Medical (four) Branch hours as needed for Nausea and Vomiting (N/V). proMETHazin 2020-0 Yes [id number] 25mg Take 1 Univers e 25 mg 2-27 tablet by ity of tablet 00:00: mouth [place] 00 every 4 Medical (four) Branch hours as needed for Nausea and Vomiting (N/V). proMETHazin 2020-0 Yes [id number] 25mg Take 1 [facility] e 25 mg 2-27 tablet by ity of tablet 00:00: mouth [place] 00 every 4 Medical (four) Branch hours as needed for Nausea and Vomiting (N/V). proMETHazin 2020-0 Yes [id number] 25mg Take 1 [facility] e 25 mg 2-27 tablet by ity of tablet 00:00: mouth [place] 00 every 4 Medical (four) Branch hours as needed for Nausea and Vomiting (N/V). proMETHazin 2020-0 Yes [id number] 25mg Take 1 [facility] e 25 mg 2-27 tablet by ity of tablet 00:00: mouth [place] 00 every 4 Medical (four) Branch hours as needed for Nausea and Vomiting (N/V). proMETHazin 2020-0 Yes [id number] 25mg Take 1 [facility] e 25 mg 2-27 tablet by ity of tablet 00:00: mouth [place] 00 every 4 Medical (four) Branch hours as needed for Nausea and Vomiting (N/V). proMETHazin 2020-0 Yes [id number] 25mg Take 1 [facility] e 25 mg 2-27 tablet by ity of tablet 00:00: mouth [place] 00 every 4 Medical (four) Branch hours as needed for Nausea and Vomiting (N/V). proMETHazin 2020-0 Yes [id number] 25mg Take 1 [facility] e 25 mg 2-27 tablet by ity of tablet 00:00: mouth [place] 00 every 4 Medical (four) Branch hours as needed for Nausea and Vomiting (N/V). proMETHazin 2020-0 Yes [id number] 25mg Take 1 Univers e 25 mg 2-27 tablet by ity of tablet 00:00: mouth [place] 00 every 4 Medical (four) Branch hours as needed for Nausea and Vomiting (N/V). proMETHazin 2020-0 Yes [id number] 25mg Take 1 Univers e 25 mg 2-27 tablet by ity of tablet 00:00: mouth [place] 00 every 4 Medical (four) Branch hours as needed for Nausea and Vomiting (N/V). proMETHazin 2020-0 Yes [id number] 25mg Take 1 Univers e 25 mg 2-27 tablet by ity of tablet 00:00: mouth [place] 00 every 4 Medical (four) Branch hours as needed for Nausea and Vomiting (N/V). proMETHazin 2020-0 Yes [id number] 25mg Take 1 [facility] e 25 mg 2-27 tablet by ity of tablet 00:00: mouth [place] 00 every 4 Medical (four) Branch hours as needed for Nausea and Vomiting (N/V). proMETHazin 2020-0 Yes [id number] 25mg Take 1 [facility] e 25 mg 2-27 tablet by ity of tablet 00:00: mouth [place] 00 every 4 Medical (four) Branch hours as needed for Nausea and Vomiting (N/V). proMETHazin 2020-0 Yes [id number] 25mg Take 1 [facility] e 25 mg 2-27 tablet by ity of tablet 00:00: mouth [place] 00 every 4 Medical (four) Branch hours as needed for Nausea and Vomiting (N/V). proMETHazin 2020-0 Yes [id number] 25mg Take 1 [facility] e 25 mg 2-27 tablet by ity of tablet 00:00: mouth [place] 00 every 4 Medical (four) Branch hours as needed for Nausea and Vomiting (N/V). proMETHazin 2020-0 Yes [id number] 25mg Take 1 [facility] e 25 mg 2-27 tablet by ity of tablet 00:00: mouth [place] 00 every 4 Medical (four) Branch hours as needed for Nausea and Vomiting (N/V). proMETHazin 2020-0 2021- No [id number] 25mg Take 1 Univers e 25 mg 2-27 03- tablet by ity of tablet 00:00: 00:00 mouth [place] 00 :00 every 4 Medical (four) Branch hours as needed for Nausea and Vomiting (N/V). proMETHazin 2020- No [id number] 25mg Take 1 Univers e 25 mg 2-10-24 tablet by ity of tablet 00:00: 00:00 mouth [place] 00 :00 every 4 Medical (four) Branch hours as needed for Nausea and Vomiting (N/V). cefTRIAXone No 1000mg 1,000 mg, Univers (ROCEPHIN) 09-16 IV ity of 1,000 mg in 14:30: 14:05 [facility], [place] NaCl 0.9% 00 :00 ONCE, 1 Medical (NS) 50 mL dose, Wed Bran ch MINI-BAG 09/16/19 at 0830, 50 mL
Reas on for Anti-Infec tive: Empiric Therapy for Suspected Infection< br>Empiric Therapy Site: Urine
D uration of therapy: 72 hours cephALEXin No [id number] 500mg Take 1 [facility] (KEFLEX) 09-16 [id number] capsule by it y of 500 mg 00:00: 05:59 mouth 3 [place] capsule 00 :00 (three) Medical times Branch daily for 7 days. cephALEXin No [id number] 500mg Take 1 [facility] (KEFLEX) 09-16 [id number] capsule by it y of 500 mg 00:00: 05:59 mouth 3 [place] capsule 00 :00 (three) Medical times Branch daily for 7 days. cephALEXin No [id number] 500mg Take 1 Univers (KEFLEX) 09-16 [id number] capsule by it y of 500 mg 00:00: 05:59 mouth 3 [place] capsule 00 :00 (three) Medical times Branch daily for 7 days. proMETHazin Yes [id number] 25mg Take 1 Univers e 25 mg 1-10 tablet by ity of tablet 00:00: mouth [place] 00 every 6 Medical (six) Branch hours as needed for Nausea and Vomiting (N/V). proMETHazin Yes [id number] 25mg Take 1 Univers e 25 mg 1-10 tablet by ity of tablet 00:00: mouth [place] 00 every 6 Medical (six) Branch hours as needed for Nausea and Vomiting (N/V). proMETHazin 2020-0 Yes [id number] 25mg Take 1 [facility] e 25 mg 1-10 tablet by ity of tablet 00:00: mouth [place] 00 every 6 Medical (six) Branch hours as needed for Nausea and Vomiting (N/V). proMETHazin 2020-0 Yes [id number] 25mg Take 1 [facility] e 25 mg 1-10 tablet by ity of tablet 00:00: mouth [place] 00 every 6 Medical (six) Branch hours as needed for Nausea and Vomiting (N/V). proMETHazin 2020-0 Yes [id number] 25mg Take 1 [facility] e 25 mg 1-10 tablet by ity of tablet 00:00: mouth [place] 00 every 6 Medical (six) Branch hours as needed for Nausea and Vomiting (N/V). proMETHazin 2020-0 Yes [id number] 25mg Take 1 [facility] e 25 mg 1-10 tablet by ity of tablet 00:00: mouth [place] 00 every 6 Medical (six) Branch hours as needed for Nausea and Vomiting (N/V). proMETHazin 2020-0 Yes [id number] 25mg Take 1 Univers e 25 mg 1-10 tablet by ity of tablet 00:00: mouth [place] 00 every 6 Medical (six) Branch hours as needed for Nausea and Vomiting (N/V). proMETHazin 2020-0 Yes [id number] 25mg Take 1 Univers e 25 mg 1-10 tablet by ity of tablet 00:00: mouth [place] 00 every 6 Medical (six) Branch hours as needed for Nausea and Vomiting (N/V). proMETHazin 2020-0 Yes [id number] 25mg Take 1 Univers e 25 mg 1-10 tablet by ity of tablet 00:00: mouth [place] 00 every 6 Medical (six) Branch hours as needed for Nausea and Vomiting (N/V). proMETHazin 2020-0 Yes [id number] 25mg Take 1 [facility] e 25 mg 1-10 tablet by ity of tablet 00:00: mouth [place] 00 every 6 Medical (six) Branch hours as needed for Nausea and Vomiting (N/V). proMETHazin 2020-0 Yes [id number] 25mg Take 1 Univers e 25 mg 1-10 tablet by ity of tablet 00:00: mouth [place] 00 every 6 Medical (six) Branch hours as needed for Nausea and Vomiting (N/V). proMETHazin 2020-0 Yes [id number] 25mg Take 1 [facility] e 25 mg 1-10 tablet by ity of tablet 00:00: mouth [place] 00 every 6 Medical (six) Branch hours as needed for Nausea and Vomiting (N/V). proMETHazin 2020-0 Yes [id number] 25mg Take 1 [facility] e 25 mg 1-10 tablet by ity of tablet 00:00: mouth [place] 00 every 6 Medical (six) Branch hours as needed for Nausea and Vomiting (N/V). proMETHazin 2020-0 Yes [id number] 25mg Take 1 [facility] e 25 mg 1-10 tablet by ity of tablet 00:00: mouth [place] 00 every 6 Medical (six) Branch hours as needed for Nausea and Vomiting (N/V). proMETHazin 2020-0 2020- No [id number] 25mg Take 1 Univers e 25 mg 1-10 02-27 tablet by ity of tablet 00:00: 00:00 mouth [place] 00 :00 every 6 Medical (six) Branch hours as needed for Nausea and Vomiting (N/V). proMETHazin 2020-0 2020- No [id number] 25mg Take 1 Univers e 25 mg 1-10 02-27 tablet by ity of tablet 00:00: 00:00 mouth [place] 00 :00 every 6 Medical (six) Branch hours as needed for Nausea and Vomiting (N/V). azithromyci 2020-0 2020- No [id number] 1000mg Take 2 Univers n 500 mg [...] 1-09 mouth. ity of fumarate 20:39: [place] ([facility] 35 Medical VITAMIN Branch ORAL) multivit-mi 2020-0 Yes Take by Uni vers n/ferrous 1-09 mouth. ity of fumarate 20:39: [place] ([facility] 35 Medical VITAMIN Branch ORAL) multivit-mi 2020-0 Yes Take by Uni vers n/ferrous 1-09 mouth. ity of fumarate 20:39: [place] ([place] [address] Medical VITAMIN Branch ORAL) multivit-mi 2020-0 Yes Take by Uni vers n/ferrous 1-09 mouth. ity of fumarate 20:39: [place] ([place] [address] Medical VITAMIN Branch ORAL) multivit-mi 2020-0 Yes Take by Uni vers n/ferrous 1-09 mouth. ity of fumarate 20:39: [place] ([place] [address] Medical VITAMIN Branch ORAL) multivit-mi 2020-0 Yes Take by Uni vers n/ferrous 1-09 mouth. ity of fumarate 20:39: [place] ([place] [address] Medical VITAMIN Branch ORAL) multivit-mi 2020-0 Yes Take by Uni vers n/ferrous 1-09 mouth. ity of fumarate 20:39: [place] ([place] [address] Medical VITAMIN Branch ORAL) multivit-mi 2020-0 Yes Take by Uni vers n/ferrous 1-09 mouth. ity of fumarate 20:39: [place] ([place] [address] Medical VITAMIN Branch ORAL) multivit-mi 2020-0 Yes Take by Uni vers n/ferrous 1-09 mouth. ity of fumarate 20:39: [place] ([place] [address] Medical VITAMIN Branch ORAL) multivit-mi 2020-0 Yes Take by Uni vers n/ferrous 1-09 mouth. ity of fumarate 20:39: [place] ([place] [address] Medical VITAMIN Branch ORAL) multivit-mi 2020-0 Yes Take by Uni vers n/ferrous 1-09 mouth. ity of fumarate 20:39: [place] ([place] [address] Medical VITAMIN Branch ORAL) multivit-mi 2020-0 Yes Take by Uni vers n/ferrous 1-09 mouth. ity of fumarate 20:39: [place] ([place] [address] Medical VITAMIN Branch ORAL) multivit-mi 2020-0 Yes Take by Uni vers n/ferrous 1-09 mouth. ity of fumarate 20:39: [place] ([place] [address] Medical VITAMIN Branch ORAL) ibuprofen Yes 600mg Take 1 Unive rs 600 mg 1-06 tablet by ity of tablet 00:00: mouth [place] [id number] every 6 Medical (six) Branch hours as [...] Take 1 Univ ers 600 mg 1-06 02-27 tablet by ity of tablet 00:00: [...] Tab 00:00: mouth Medica l 00 daily. Kenneth SUMAtriptan Yes 50mg Take [address] [facility] (IMITREX) 5-19 tablet (50 [facility] 50 MG 00:00: mg total) Medical tablet 00 by mouth Center every 2 (two) hours as needed (migraine) Do not exceed 200mg in 24 hours.. riboflavin, Yes 400mg QD Take [address] vitamin B2, 5-19 mg by [facility] mg Tab 00:00: mouth Medica l 00 daily. [place] SUMAtriptan Yes 50mg Take [address] [facility] (IMITREX) 5-19 tablet (50 [facility] 50 MG 00:00: mg total) Medical tablet 00 by mouth Center every 2 (two) hours as needed (migraine) Do not exceed 200mg in 24 hours.. riboflavin, Yes 400mg QD Take [address] vitamin B2, 5-19 mg by [facility] 400 mg Tab 00:00: mouth Medica l 00 daily. [place] SUMAtriptan Yes 50mg Take [address] [facility] (IMITREX) 5-19 tablet (50 [facility] 50 MG 00:00: mg total) Medical tablet 00 by mouth Center every 2 (two) hours as needed (migraine) Do not exceed 200mg in 24 hours.. riboflavin, Yes 400mg QD Take [address] vitamin B2, 5-19 [facility] by [facility] 400 mg Tab 00:00: mouth Medica l 00 daily. [place] SUMAtriptan Yes 50mg Take [address] [facility] (IMITREX) 5-19 tablet (50 [facility] 50 MG 00:00: mg total) Medical tablet 00 by mouth Center every 2 (two) hours as needed (migraine) Do not exceed 200mg in 24 hours.. riboflavin, Yes 400mg QD Take [address] vitamin B2, 5-19 mg by [facility] 400 mg Tab 00:00: mouth Medica l 00 daily. [place] SUMAtriptan Yes 50mg Take [address] [facility] [...] ans 00 No known No [facility] No known No [facility] medications [facility] No known No Univers medications [facility] No known No Univers medications [facility] No known No [facility] medications [facility] Immunizations Ordered Filled Date Status Comments Source Immunization Name Immunization Name Rho(D) Immune 2020-02-18 [facility]pleted [facility] - [facility] 16:03:00 Tdap 2020-02-18 Completed [facility] 00:00:00 Influenza Virus 2019-11-16 Completed [facility] of Vaccine Quad .5 mL 00:00:00 [place] [facility] IM 6+ MO Branch Influenza Virus 2019-11-16 Completed [facility]it y of Vaccine Quad .5 mL 00:00:00 [place] [facility] IM 6+ MO Branch Influenza Virus 2019-11-16 Completed Universit y of Vaccine Quad .5 mL 00:00:00 [place] [facility] IM 6+ MO Branch Influenza Virus 2019-11-16 Completed Universit y of Vaccine Quad .5 mL 00:00:00 [place] [facility] IM 6+ MO Branch Influenza Virus 2019-11-16 Completed Universit y of Vaccine Quad .5 mL 00:00:00 [place] [facility] IM 6+ MO Branch Influenza Virus 2019-11-16 Completed Universit y of Vaccine Quad .5 mL 00:00:00 [place] [facility] IM 6+ MO Branch Influenza Virus [...] 00:00:00 [place] [facility] IM 6+ MO Branch (FLUZONE/FLULAVAL/F LUARIX) Influenza Virus 2019-11-16 Completed Universit y of [...] y of Vaccine Quad .5 mL 00:00:00 [place] [facility] IM 6+ MO Branch Influenza Virus [...] y of Vaccine Quad .5 mL 00:00:00 [place] [facility] IM 6+ MO Branch Influenza Virus [...] y of Vaccine Quad .5 mL 00:00:00 [place] [facility] IM 6+ MO Branch Influenza Virus [...] y of Vaccine Quad .5 mL 00:00:00 [place] [facility] IM 6+ MO Branch Influenza Virus 2019-11-16 Completed Universit y of Vaccine Quad .5 mL 00:00:00 [place] [facility] IM 6+ MO Branch Influenza Virus 2019-11-16 Completed Universit y of Vaccine Quad .5 mL 00:00:00 [place] [facility] IM 6+ MO Branch Influenza Virus 2019-11-16 Completed Universit y of Vaccine Quad .5 mL 00:00:00 [place] [facility] IM 6+ MO Branch Influenza Virus 2019-11-16 Completed Universit y of Vaccine Quad .5 mL 00:00:00 [place] [facility] 6+ MO Branch TDAP 2017-07-15 Completed University of 00:00:00 [place] [facility] Rho (d) Immune 2017-07-15 Completed University of Globulin 00:00:00 [place] [facility] TDAP 2017-07-15 Completed University of 00:00:00 [place] [facility] Rho (d) Immune 2017-07-15 Completed University of Globulin 00:00:00 [place] [facility] TDAP 2017-07-15 Completed University of 00:00:00 [place] [facility] Rho (d) Immune 2017-07-15 Completed University of Globulin 00:00:00 [place] [facility] TDAP 2017-07-15 Completed University of 00:00:00 [facility] Branch Rho (d) Immune 2017-07-15 Completed University of Globulin 00:00:00 [place] [facility] TDAP 2017-07-15 Completed University of 00:00:00 [place] [facility] Rho (d) Immune 2017-07-15 Completed University of Globulin 00:00:00 [place] [facility] TDAP 2017-07-15 Completed University of 00:00:00 [place] [facility] Rho (d) Immune 2017-07-15 Completed University of Globulin 00:00:00 [place] [facility] TDAP 2017-07-15 Completed [facility] 00:00:00 [facility] Rho (d) Immune 2017-07-15 Completed [facility] Globulin 00:00:00 [facility] TDAP 2017-07-15 Completed [facility] 00:00:00 [facility] Rho (d) Immune 2017-07-15 Completed [facility] Globulin 00:00:00 [facility] TDAP 2017-07-15 Completed [facility] 00:00:00 [facility] Rho (d) Immune 2017-07-15 Completed [facility] Globulin 00:00:00 [facility] TDAP 2017-07-15 Completed [facility] 00:00:00 [facility] Rho (d) Immune 2017-07-15 Completed [facility] Globulin 00:00:00 [facility] TDAP 2017-07-15 Completed [facility] 00:00:00 [facility] Rho (d) Immune 2017-07-15 Completed [facility] Globulin 00:00:00 [facility] TDAP 2017-07-15 Completed [facility] 00:00:00 [facility] Rho (d) Immune 2017-07-15 Completed [facility] Globulin 00:00:00 [facility] TDAP 2017-07-15 Completed [facility] 00:00:00 [facility] Rho (d) Immune 2017-07-15 Completed [facility] Globulin 00:00:00 [facility] TDAP 2017-07-15 Completed [facility] 00:00:00 [facility] Rho (d) Immune 2017-07-15 Completed [facility] Globulin 00:00:00 [facility] TDAP 2017-07-15 Completed [facility] 00:00:00 [facility] Rho (d) Immune 2017-07-15 Completed [facility] Globulin 00:00:00 [facility] TDAP 2017-07-15 Completed [facility] 00:00:00 [facility] Rho (d) Immune 2017-07-15 Completed [facility] Globulin 00:00:00 [facility] TDAP 2017-07-15 Completed [facility] 00:00:00 [facility] Rho (d) Immune 2017-07-15 Completed [facility] Globulin 00:00:00 [facility] TDAP 2017-07-15 Completed [facility] 00:00:00 [facility] Rho (d) Immune 2017-07-15 Completed [facility] Globulin 00:00:00 [facility] TDAP 2017-07-15 Completed [facility] 00:00:00 [facility] Rho (d) Immune 2017-07-15 Completed [facility] Globulin 00:00:00 [facility] TDAP 2017-07-15 Completed [facility] 00:00:00 [facility] Rho (d) Immune 2017-07-15 Completed [facility] Globulin 00:00:00 [facility] TDAP 2017-07-15 Completed [facility] 00:00:00 [facility] Rho (d) Immune 2017-07-15 Completed [facility] Globulin 00:00:00 [facility] TDAP 2017-07-15 Completed [facility] 00:00:00 [facility] Rho (d) Immune 2017-07-15 Completed [facility] Globulin 00:00:00 [facility] TDAP 2017-07-15 Completed [facility] 00:00:00 [facility] Rho (d) Immune 2017-07-15 Completed [facility] Globulin 00:00:00 [facility] Tdap 2017-07-15 Completed [facility] 00:00:00 [facility] Rho (d) Immune 2017-07-15 Completed [facility] Globulin 00:00:00 [facility] TDAP 2017-07-15 Completed [facility] 00:00:00 [facility] Rho (d) Immune 2017-07-15 Completed [facility] Globulin 00:00:00 [facility] TDAP 2017-07-15 Completed [facility] 00:00:00 [facility] Rho (d) Immune 2017-07-15 Completed [facility] Globulin 00:00:00 [facility] TDAP 2017-07-15 Completed [facility] 00:00:00 [facility] Rho (d) Immune 2017-07-15 Completed [facility] Globulin 00:00:00 [facility] TDAP 2017-07-15 Completed [facility] 00:00:00 [facility] Rho (d) Immune 2017-07-15 Completed [facility] Globulin 00:00:00 [facility] TDAP 2017-07-15 Completed [facility] 00:00:00 [facility] Rho (d) Immune 2017-07-15 Completed [facility] Globulin 00:00:00 [facility] TDAP 2017-07-15 Completed [facility] 00:00:00 [facility] Rho (d) Immune 2017-07-15 Completed [facility] Globulin 00:00:00 [facility] TDAP 2017-07-15 Completed [facility] 00:00:00 [facility] Rho (d) Immune 2017-07-15 Completed [facility] Globulin 00:00:00 [facility] TDAP 2017-07-15 Completed [facility] 00:00:00 [facility] Rho (d) Immune 2017-07-15 Completed [facility] Globulin 00:00:00 [facility] Tdap 2017-07-15 Completed [facility] 00:00:00 [facility] TDAP 2017-07-15 Completed [facility] 00:00:00 [facility] Rho (d) Immune 2017-07-15 Completed [facility] Globulin 00:00:00 [facility] Rho (d) Immune 2017-07-15 Completed [facility] Globulin 00:00:00 [facility] TDAP 2017-07-15 Completed [facility] 00:00:00 [facility] Rho (d) Immune 2017-07-15 Completed [facility] Globulin 00:00:00 [facility] TDAP 2017-07-15 Completed [facility] 00:00:00 [facility] Rho (d) Immune 2017-07-15 Completed [facility] Globulin 00:00:00 [facility] TDAP 2017-07-15 Completed [facility] 00:00:00 [facility] Rho (d) Immune 2017-07-15 Completed [facility] Globulin 00:00:00 [facility] TDAP 2017-07-15 Completed [facility] 00:00:00 [facility] Rho (d) Immune 2017-07-15 Completed [facility] Globulin 00:00:00 [facility] TDAP 2017-07-15 Completed [facility] 00:00:00 [facility] Rho (d) Immune 2017-07-15 Completed [facility] Globulin 00:00:00 [facility] TDAP 2017-07-15 Completed [facility] 00:00:00 [facility] Rho (d) Immune 2017-07-15 Completed [facility] Globulin 00:00:00 [facility] Tdap 2017-07-15 Completed [facility] 00:00:00 [facility] TDAP 2017-07-15 Completed [facility] 00:00:00 [facility] Rho (d) Immune 2017-07-15 Completed [facility] Globulin 00:00:00 [facility] Rho (d) Immune 2017-07-15 Completed [facility] Globulin 00:00:00 [facility] TDAP 2017-07-15 Completed [facility] 00:00:00 [facility] Rho (d) Immune 2017-07-15 Completed [facility] Globulin 00:00:00 [facility] TDAP 2017-07-15 Completed [facility] 00:00:00 [facility] Rho (d) Immune 2017-07-15 Completed [facility] Globulin 00:00:00 [facility] Tdap 2017-07-15 Completed [facility] 00:00:00 [facility] Rho (d) Immune 2017-07-15 Completed [facility] Globulin 00:00:00 [facility] Tdap 2017-07-15 Completed [facility] 00:00:00 [facility] Rho (d) Immune 2017-07-15 Completed [facility] Globulin 00:00:00 [facility] Tdap 2017-07-15 Completed [facility] 00:00:00 [facility] Rho (d) Immune 2017-07-15 Completed [facility] Globulin 00:00:00 [facility] Tdap 2017-07-15 Completed [facility] 00:00:00 [facility] Rho (d) Immune 2017-07-15 Completed [facility] Globulin 00:00:00 [facility] Tdap 2017-07-15 Completed [facility] 00:00:00 [facility] Rho (d) Immune 2017-07-15 Completed [facility] Globulin 00:00:00 [facility] Tdap 2017-07-15 Completed [facility] 00:00:00 [facility] Rho (d) Immune 2017-07-15 Completed [facility] Globulin 00:00:00 [facility] Tdap 2017-07-15 Completed [facility] 00:00:00 [facility] Rho (d) Immune 2017-07-15 Completed [facility] Globulin 00:00:00 [facility] Tdap 2017-07-15 Completed [facility] 00:00:00 [facility] Rho (d) Immune 2017-07-15 Completed [facility] Globulin 00:00:00 [facility] Tdap 2017-07-15 Completed [facility] 00:00:00 [facility] Rho (d) Immune 2017-07-15 Completed [facility] Globulin 00:00:00 [facility] Tdap 2017-07-15 Completed [facility] 00:00:00 [facility] Rho (d) Immune 2017-07-15 Completed [facility] Globulin 00:00:00 [facility] Tdap 2017-07-15 Completed [facility] 00:00:00 [facility] Rho (d) Immune 2017-07-15 Completed [facility] Globulin 00:00:00 [facility] Tdap 2017-07-15 Completed [facility] 00:00:00 [facility] Rho (d) Immune 2017-07-15 Completed [facility] Globulin 00:00:00 [facility] Tdap 2017-07-15 Completed [facility] 00:00:00 [facility] Rho (d) Immune 2017-07-15 Completed [facility] Globulin 00:00:00 [facility] Tdap 2017-07-15 Completed [facility] 00:00:00 [facility] Rho (d) Immune 2017-07-15 Completed [facility] Globulin 00:00:00 [facility] Tdap 2017-07-15 Completed [facility] 00:00:00 [facility] Rho (d) Immune 2017-07-15 Completed [facility] Globulin 00:00:00 [facility] Tdap 2017-07-15 Completed [facility] 00:00:00 [facility] Rho (d) Immune 2017-07-15 Completed [facility] Globulin 00:00:00 [facility] Tdap 2017-07-15 Completed [facility] 00:00:00 [facility] Rho (d) Immune 2017-07-15 Completed [facility] Globulin 00:00:00 [facility] Tdap 2017-07-15 Completed [facility] 00:00:00 [facility] Rho (d) Immune 2017-07-15 Completed [facility] Globulin 00:00:00 [facility] Tdap 2017-07-15 Completed [facility] 00:00:00 [facility] Rho (d) Immune 2017-07-15 Completed [facility] Globulin 00:00:00 [facility] Tdap 2017-07-15 Completed [facility] 00:00:00 [facility] Rho (d) Immune 2017-07-15 Completed [facility] Globulin 00:00:00 [facility] Tdap 2017-07-15 Completed [facility] 00:00:00 [facility] Rho (d) Immune 2017-07-15 Completed [facility] Globulin 00:00:00 [facility] Tdap 2017-07-15 Completed [facility] 00:00:00 [facility] Rho (d) Immune 2017-07-15 Completed [facility] Globulin 00:00:00 [facility] Tdap 2017-07-15 Completed [facility] 00:00:00 [facility] Rho (d) Immune 2017-07-15 Completed [facility] Globulin 00:00:00 [facility] Tdap 2017-07-15 Completed [facility] 00:00:00 [facility] Rho (d) Immune 2017-07-15 Completed [facility] Globulin 00:00:00 [facility] Tdap 2017-07-15 Completed [facility] 00:00:00 [facility] Rho (d) Immune 2017-07-15 Completed [facility] Globulin 00:00:00 [facility] Tdap 2017-07-15 Completed [facility] 00:00:00 [facility] Rho (d) Immune 2017-07-15 Completed [facility] Globulin 00:00:00 [facility] Tdap 2017-07-15 Completed [facility] 00:00:00 [facility] Rho (d) Immune 2017-07-15 Completed [facility] Globulin 00:00:00 [facility] Tdap 2017-07-15 Completed [facility] 00:00:00 [facility] Rho (d) Immune 2017-07-15 Completed [facility] Globulin 00:00:00 [facility] Tdap 2017-07-15 Completed [facility] 00:00:00 [facility] Rho (d) Immune 2017-07-15 Completed [facility] Globulin 00:00:00 [facility] Tdap 2017-07-15 Completed [facility] 00:00:00 [facility] Rho (d) Immune 2017-07-15 Completed [facility] Globulin 00:00:00 [facility] Tdap 2017-07-15 Completed [facility] 00:00:00 [facility] Rho (d) Immune 2017-07-15 Completed [facility] Globulin 00:00:00 [facility] Tdap 2017-07-15 Completed [facility] 00:00:00 [facility] Rho (d) Immune 2017-07-15 Completed [facility] Globulin 00:00:00 [facility] Tdap 2017-07-15 Completed [facility] 00:00:00 [facility] Rho (d) Immune 2017-07-15 Completed [facility] Globulin 00:00:00 [facility] Tdap 2017-07-15 Completed [facility] 00:00:00 [facility] Rho (d) Immune 2017-07-15 Completed [facility] Globulin 00:00:00 [facility] Tdap 2017-07-15 Completed [facility] 00:00:00 [facility] Rho (d) Immune 2017-07-15 Completed [facility] Globulin 00:00:00 [facility] Tdap 2017-07-15 Completed [facility] 00:00:00 [facility] Rho (d) Immune 2017-07-15 Completed [facility] Globulin 00:00:00 [facility] Tdap 2017-07-15 Completed [facility] 00:00:00 [facility] Rho (d) Immune 2017-07-15 Completed [facility] Globulin 00:00:00 [facility] Tdap 2017-07-15 Completed [facility] 00:00:00 [facility] Rho (d) Immune 2017-07-15 Completed [facility] Globulin 00:00:00 [facility] Tdap 2017-07-15 Completed [facility] 00:00:00 [facility] Rho (d) Immune 2017-07-15 Completed [facility] Globulin 00:00:00 [facility] Tdap 2017-07-15 Completed [facility] 00:00:00 [facility] Rho (d) Immune 2017-07-15 Completed [facility] Globulin 00:00:00 [facility] TDAP 2017-07-15 Completed [facility] 00:00:00 [facility] Rho (d) Immune 2017-07-15 Completed [facility] Globulin 00:00:00 [facility] TDAP 2017-07-15 Completed [facility] 00:00:00 [facility] Rho (d) Immune 2017-07-15 Completed [facility] Globulin 00:00:00 [facility] TDAP 2017-07-15 Completed [facility] 00:00:00 [facility] Rho (d) Immune 2017-07-15 Completed [facility] Globulin 00:00:00 [facility] TDAP 2017-07-15 Completed [facility] 00:00:00 [facility] Rho (d) Immune 2017-07-15 Completed [facility] Globulin 00:00:00 [facility] TDAP 2017-07-15 Completed [facility] 00:00:00 [facility] Rho (d) Immune 2017-07-15 Completed [facility] Globulin 00:00:00 [facility] TDAP 2017-07-15 Completed [facility] 00:00:00 [facility] Rho (d) Immune 2017-07-15 Completed [facility] Globulin 00:00:00 [facility] TDAP 2017-07-15 Completed [facility] 00:00:00 [facility] Rho (d) Immune 2017-07-15 Completed [facility] Globulin 00:00:00 [facility] TDAP 2017-07-15 Completed [facility] 00:00:00 [facility] Rho (d) Immune 2017-07-15 Completed [facility] Globulin 00:00:00 [facility] Tdap (Adacel) 2015-09-22 [facility] 00:00:00 Influenza Virus 2015-05-25 Completed [facility] IM 3+ 00:00:00 [facility] Influenza Virus 2015-05-25 Completed [facility] IM 3+ 00:00:00 [facility] Influenza Virus 2015-05-25 Completed [facility] IM 3+ 00:00:00 [facility] Influenza Virus 2015-05-25 Completed [facility] IM 3+ 00:00:00 [facility] Influenza Virus 2015-05-25 Completed [facility] IM 3+ 00:00:00 [facility] Influenza Virus 2015-05-25 Completed [facility] IM 3+ 00:00:00 [facility] Influenza Virus 2015-05-25 Completed [facility] IM 3+ 00:00:00 [facility] Influenza Virus 2015-05-25 Completed [facility] IM 3+ 00:00:00 [facility] Influenza Virus 2015-05-25 Completed [facility] IM 3+ 00:00:00 [facility] Influenza Virus 2015-05-25 Completed [facility] IM 3+ 00:00:00 [facility] Influenza Virus 2015-05-25 Completed [facility] IM 3+ 00:00:00 [facility] Influenza Virus 2015-05-25 Completed [facility] IM 3+ 00:00:00 [facility] Influenza Virus 2015-05-25 Completed [facility] IM 3+ 00:00:00 [facility] Influenza Virus 2015-05-25 Completed [facility] IM 3+ 00:00:00 [facility] Influenza Virus 2015-05-25 Completed [facility] IM 3+ 00:00:00 [facility] Influenza Virus 2015-05-25 Completed [facility] IM 3+ 00:00:00 [facility] Influenza Virus 2015-05-25 Completed [facility] IM 3+ 00:00:00 [facility] Influenza Virus 2015-05-25 Completed [facility] IM 3+ 00:00:00 [facility] Influenza Virus 2015-05-25 Completed [facility] IM 3+ 00:00:00 [facility] Influenza Virus 2015-05-25 Completed [facility] IM 3+ 00:00:00 [facility] Influenza Virus 2015-05-25 Completed [facility] IM 3+ 00:00:00 [facility] Influenza Virus 2015-05-25 Completed [facility] IM 3+ 00:00:00 [facility] Influenza Virus 2015-05-25 Completed [facility] IM 3+ 00:00:00 [facility] Influenza Virus 2015-05-25 Completed [facility] IM 3+ 00:00:00 [facility] Influenza Virus 2015-05-25 Completed [facility] IM 3+ 00:00:00 [facility] Influenza Virus 2015-05-25 Completed [facility] IM 3+ 00:00:00 [facility] Influenza Virus 2015-05-25 Completed [facility] IM 3+ 00:00:00 [facility] Influenza Virus 2015-05-25 Completed [facility] IM 3+ 00:00:00 [facility] Influenza Virus 2015-05-25 Completed [facility] IM 3+ 00:00:00 [facility] Influenza Virus 2015-05-25 Completed [facility] IM 3+ 00:00:00 [facility] Influenza Virus 2015-05-25 Completed [facility] IM 3+ 00:00:00 [facility] Influenza Virus 2015-05-25 Completed [facility] IM 3+ 00:00:00 [facility] Influenza Virus 2015-05-25 Completed [facility] IM 3+ 00:00:00 [facility] Influenza Virus 2015-05-25 Completed [facility] IM 3+ 00:00:00 [facility] Influenza Virus 2015-05-25 Completed [facility] IM 3+ 00:00:00 [facility] Influenza Virus 2015-05-25 Completed [facility] IM 3+ 00:00:00 [facility] Influenza Virus 2015-05-25 Completed [facility] IM 3+ 00:00:00 [facility] Influenza Virus 2015-05-25 Completed [facility] IM 3+ 00:00:00 [facility] Influenza Virus 2015-05-25 Completed [facility] IM 3+ 00:00:00 [facility] Influenza Virus 2015-05-25 Completed [facility] IM 3+ 00:00:00 [facility] Influenza Virus 2015-05-25 Completed [facility] IM 3+ 00:00:00 [facility] Influenza Virus 2015-05-25 Completed [facility] IM 3+ 00:00:00 [facility] Influenza Virus 2015-05-25 Completed [facility] IM 3+ 00:00:00 [facility] Influenza Virus 2015-05-25 Completed [facility] IM 3+ 00:00:00 [facility] Influenza Virus 2015-05-25 Completed [facility] IM 3+ 00:00:00 [facility] Influenza Virus 2015-05-25 Completed [facility] IM 3+ 00:00:00 [facility] Influenza Virus 2015-05-25 Completed [facility] IM 3+ 00:00:00 [facility] Influenza Virus 2015-05-25 Completed [facility] IM 3+ 00:00:00 [facility] Influenza Virus 2015-05-25 Completed [facility] IM 3+ 00:00:00 [facility] Influenza Virus 2015-05-25 Completed [facility] IM 3+ 00:00:00 [facility] Influenza Virus 2015-05-25 Completed [facility] IM 3+ 00:00:00 [facility] Influenza Virus 2015-05-25 Completed [facility] IM 3+ 00:00:00 [facility] Influenza Virus 2015-05-25 Completed [facility] IM 3+ 00:00:00 [facility] Influenza Virus 2015-05-25 Completed [facility] IM 3+ 00:00:00 [facility] Influenza Virus 2015-05-25 Completed [facility] IM 3+ 00:00:00 [facility] Influenza Virus 2015-05-25 Completed [facility] IM 3+ 00:00:00 [facility] Influenza Virus 2015-05-25 Completed [facility] IM 3+ 00:00:00 [facility] Influenza Virus 2015-05-25 Completed [facility] IM 3+ 00:00:00 [facility] Influenza Virus 2015-05-25 Completed [facility] IM 3+ 00:00:00 [facility] Influenza Virus 2015-05-25 Completed [facility] IM 3+ 00:00:00 [facility] Influenza Virus 2015-05-25 Completed [facility] IM 3+ 00:00:00 [facility] Influenza Virus 2015-05-25 Completed [facility] IM 3+ 00:00:00 [facility] Influenza Virus 2015-05-25 Completed [facility] Vacc[facility] IM 3+ 00:00:00 [facility] Influenza Virus 2015-05-25 Completed [facility] Vaccine [facility] IM 3+ 00:00:00 [facility] Influenza Virus 2015-05-25 Completed [facility] Vaccine Quad IM 3+ 00:00:00 [facility] Influenza Virus 2015-05-25 Completed [facility] Vaccine Quad IM 3+ 00:00:00 [facility] Influenza Virus 2015-05-25 Completed [facility] Vaccine Quad IM 3+ 00:00:00 [facility] Influenza Virus 2015-05-25 Completed [facility] Vaccine [facility] IM 3+ 00:00:00 [facility] Influenza Virus 2015-05-25 Completed [facility] Vaccine Quad IM 3+ 00:00:00 [facility] Influenza Virus 2015-05-25 Completed [facility] Vaccine [facility] IM 3+ 00:00:00 [facility] Influenza Virus 2015-05-25 Completed [facility] Vaccine [facility] IM 3+ 00:00:00 [facility] Influenza Virus 2015-05-25 Completed [facility] Vaccine Quad IM 3+ 00:00:00 [facility] Influenza Virus 2015-05-25 Completed [facility] Vaccine Quad IM 3+ 00:00:00 [facility] Influenza Virus 2015-05-25 Completed [facility] Vaccine Quad IM 3+ 00:00:00 [facility] Influenza Virus 2015-05-25 Completed [facility] Vaccine Quad IM 3+ 00:00:00 [facility] Influenza Virus 2015-05-25 Completed [facility] Vaccine Quad IM 3+ 00:00:00 [facility] Influenza Virus 2015-05-25 Completed [facility] Vaccine Quad IM 3+ 00:00:00 [facility] Influenza Virus 2015-05-25 Completed [facility] Vaccine Quad IM 3+ 00:00:00 [facility] Influenza Virus 2015-05-25 Completed [facility] Vaccine Quad IM 3+ 00:00:00 [facility] Influenza Virus 2015-05-25 Completed [facility] Vaccine Quad IM 3+ 00:00:00 [facility] Influenza Virus 2015-05-25 Completed [facility] Vaccine Quad IM 3+ 00:00:00 [facility] Influenza Virus 2015-05-25 Completed [facility] Vaccine Quad IM 3+ 00:00:00 [facility] Influenza Virus 2015-05-25 Completed [facility] Vaccine Quad IM 3+ 00:00:00 [facility] Influenza Virus 2015-05-25 Completed [facility] Vaccine Quad IM 3+ 00:00:00 [facility] Influenza Virus 2015-05-25 Completed [facility] Vaccine Quad IM 3+ 00:00:00 [facility] Influenza Virus 2015-05-25 Completed [facility] Vaccine Quad IM 3+ 00:00:00 [facility] Influenza Virus 2015-05-25 Completed [facility] Vaccine [facility] IM 3+ 00:00:00 [facility] Influenza Virus 2015-05-25 Completed [facility] Vaccine Quad IM 3+ 00:00:00 [facility] Influenza Virus 2015-05-25 Completed [facility] Vaccine Quad IM 3+ 00:00:00 [facility] Influenza Virus 2015-05-25 Completed [facility] Vaccine Quad IM 3+ 00:00:00 [facility] Influenza Virus 2015-05-25 Completed [facility] Vaccine Quad IM 3+ 00:00:00 [facility] Influenza Virus 2015-05-25 Completed [facility] Vaccine Quad IM 3+ 00:00:00 [facility] TDAP 2012-10-23 Completed [facility] 00:00:00 [facility] TDAP 2012-10-23 Completed [facility] of 00:00:00 [facility] TDAP 2012-10-23 Completed [facility] of 00:00:00 [facility] TDAP 2012-10-23 Completed [facility] of 00:00:00 [facility] TDAP 2012-10-23 Completed [facility] of 00:00:00 [facility] TDAP 2012-10-23 Completed [facility] of 00:00:00 [facility] TDAP 2012-10-23 Completed [facility] of 00:00:00 [facility] TDAP 2012-10-23 Completed [facility] of 00:00:00 [facility] TDAP 2012-10-23 Completed [facility] of 00:00:00 [facility] TDAP 2012-10-23 Completed [facility] of 00:00:00 [facility] TDAP 2012-10-23 Completed [facility] of 00:00:00 [facility] TDAP 2012-10-23 Completed [facility] of 00:00:00 [facility] TDAP 2012-10-23 Completed [facility] of 00:00:00 [facility] TDAP 2012-10-23 Completed [facility] of 00:00:00 [facility] TDAP 2012-10-23 Completed [facility] of 00:00:00 [facility] TDAP 2012-10-23 Completed [facility] of 00:00:00 [facility] TDAP 2012-10-23 Completed [facility] 00:00:00 [facility] TDAP 2012-10-23 Completed [facility] 00:00:00 [facility] TDAP 2012-10-23 Completed [facility] of 00:00:00 [facility] TDAP 2012-10-23 Completed [facility] of 00:00:00 [facility] TDAP 2012-10-23 Completed [facility] of 00:00:00 [facility] Tdap 2012-10-23 Completed [facility] of 00:00:00 [facility] TDAP 2012-10-23 Completed [facility] of 00:00:00 [facility] TDAP 2012-10-23 Completed [facility] of 00:00:00 [facility] TDAP 2012-10-23 Completed [facility] of 00:00:00 [facility] TDAP 2012-10-23 Completed [facility] of 00:00:00 [facility] TDAP 2012-10-23 Completed [facility] 00:00:00 [facility] TDAP 2012-10-23 Completed [facility] 00:00:00 [facility] TDAP 2012-10-23 Completed [facility] 00:00:00 [facility] TDAP 2012-10-23 Completed [facility] 00:00:00 [facility] TDAP 2012-10-23 Completed [facility] 00:00:00 [facility] TDAP 2012-10-23 Completed [facility] 00:00:00 [facility] Tdap 2012-10-23 Completed [facility] 00:00:00 [facility] TDAP 2012-10-23 Completed [facility] 00:00:00 [facility] TDAP 2012-10-23 Completed [facility] 00:00:00 [facility] TDAP 2012-10-23 Completed [facility] 00:00:00 [facility] TDAP 2012-10-23 Completed [facility] 00:00:00 [facility] TDAP 2012-10-23 Completed [facility] 00:00:00 [facility] TDAP 2012-10-23 Completed [facility] 00:00:00 [facility] Tdap 2012-10-23 Completed [facility] 00:00:00 [facility] TDAP 2012-10-23 Completed [facility] 00:00:00 [facility] TDAP 2012-10-23 Completed [facility] 00:00:00 [facility] TDAP 2012-10-23 Completed [facility] 00:00:00 [facility] TDAP 2012-10-23 Completed [facility] 00:00:00 [facility] Tdap 2012-10-23 Completed [facility] 00:00:00 [facility] Tdap 2012-10-23 Completed [facility] 00:00:00 [facility] Tdap 2012-10-23 Completed [facility] 00:00:00 [facility] Tdap 2012-10-23 Completed [facility] 00:00:00 [facility] Tdap 2012-10-23 Completed [facility] 00:00:00 [facility] Tdap 2012-10-23 Completed [facility] 00:00:00 [facility] Tdap 2012-10-23 Completed [facility] 00:00:00 [facility] Tdap 2012-10-23 Completed [facility] 00:00:00 [facility] Tdap 2012-10-23 Completed [facility] 00:00:00 [facility] Tdap 2012-10-23 Completed [facility] 00:00:00 [facility] Tdap 2012-10-23 Completed [facility] 00:00:00 [facility] Tdap 2012-10-23 Completed [facility] 00:00:00 [facility] Tdap 2012-10-23 Completed [facility] 00:00:00 [facility] Tdap 2012-10-23 Completed [facility] 00:00:00 [facility] Tdap 2012-10-23 Completed [facility] 00:00:00 [facility] Tdap 2012-10-23 Completed [facility] 00:00:00 [facility] Tdap 2012-10-23 Completed [facility] 00:00:00 [facility] Tdap 2012-10-23 Completed [facility] 00:00:00 [facility] Tdap 2012-10-23 Completed [facility] 00:00:00 [facility] Tdap 2012-10-23 Completed [facility] 00:00:00 [facility] Tdap 2012-10-23 Completed [facility] 00:00:00 [facility] Tdap 2012-10-23 Completed [facility] 00:00:00 [facility] Tdap 2012-10-23 Completed [facility] 00:00:00 [facility] Tdap 2012-10-23 Completed [facility] 00:00:00 [facility] Tdap 2012-10-23 Completed [facility] 00:00:00 [facility] Tdap 2012-10-23 Completed [facility] 00:00:00 [facility] Tdap 2012-10-23 Completed [facility] 00:00:00 [facility] Tdap 2012-10-23 Completed [facility] 00:00:00 [facility] Tdap 2012-10-23 Completed [facility] 00:00:00 [facility] Tdap 2012-10-23 Completed [facility] 00:00:00 [facility] Tdap 2012-10-23 Completed [facility] 00:00:00 [facility] Tdap 2012-10-23 Completed [facility] 00:00:00 [facility] Tdap 2012-10-23 Completed [facility] 00:00:00 [facility] Tdap 2012-10-23 Completed [facility] 00:00:00 [facility] Tdap 2012-10-23 Completed [facility] 00:00:00 [facility] Tdap 2012-10-23 Completed [facility] 00:00:00 [facility] Tdap 2012-10-23 Completed [facility] 00:00:00 [facility] Tdap 2012-10-23 Completed [facility] 00:00:00 [facility] Tdap 2012-10-23 Completed [facility] 00:00:00 [facility] Tdap 2012-10-23 Completed [facility] of 00:00:00 [facility] TDAP 2012-10-23 Completed [facility] 00:00:00 [facility] TDAP 2012-10-23 Completed [facility] 00:00:00 [facility] TDAP 2012-10-23 Completed [facility] 00:00:00 [facility] TDAP 2012-10-23 Completed [facility] 00:00:00 [facility] TDAP 2012-10-23 Completed [facility] 00:00:00 [facility] TDAP 2012-10-23 Completed [facility] 00:00:00 [facility] TDAP 2012-10-23 Completed [facility] 00:00:00 [facility] TDAP 2012-10-23 Completed [facility] 00:00:00 [facility] TDAP Unknown Completed [facility] Influenza Virus Unknown Completed [facility] Vaccine Quad IM 3+ [facility] TDAP Unknown Completed [facility] Rho (d) Immune Unknown Completed [facility] Influenza Virus Unknown Completed [facility] Vaccine Quad .5 mL [facility] IM 6+ [place] [facility] (FLUZONE/FLULAVAL/F LUARIX) TDAP Unknown Completed [facility] Influenza Virus Unknown Completed [facility] Vaccine Quad IM 3+ [facility] TDAP Unknown Completed [facility] Rho (d) Immune Unknown Completed [facility] Influenza Virus Unknown Completed [facility]ine Quad .5 mL [facility] 6+ [place] [facility] (FLUZONE/FLULAVAL/F LUARIX) TDAP Unknown Completed [facility] Influenza Virus Unknown Completed [facility] Vaccine Quad IM 3+ [facility] TDAP Unknown Completed [facility] Rho (d) Immune Unknown Completed [facility] Influenza Virus Unknown Completed [facility] Vaccine Quad .5 mL [facility] IM 6+ [place] [facility] (FLUZONE/FLULAVAL/F LUARIX) TDAP Unknown Completed [facility] Influenza Virus Unknown Completed [facility] Vaccine Quad IM 3+ [facility] TDAP Unknown Completed [facility] Rho (d) Immune Unknown Completed [facility] Influenza Virus Unknown Completed [facility]ine Quad .5 mL [facility] IM 6+ [place] [facility] (FLUZONE/FLULAVAL/F LUARIX) TDAP Unknown Completed [facility] Influenza Virus Unknown Completed [facility] Vaccine Quad IM 3+ [facility] TDAP Unknown Completed [facility] Rho (d) Immune Unknown Completed [facility] Influenza Virus Unknown Completed [facility] Quad .5 mL [facility] 6+ [facility] (FLUZONE/FLULAVAL/F LUARIX) TDAP Unknown Completed [facility] Influenza Virus Unknown Completed [facility] Vaccine Quad IM 3+ [facility] TDAP Unknown Completed [facility] Rho (d) Immune Unknown Completed [facility] Influenza Virus Unknown Completed [facility] Quad .5 mL [facility] 6+ [facility] (FLUZONE/FLULAVAL/F LUARIX) TDAP Unknown Completed [facility] Influenza Virus Unknown Completed [facility] Vaccine Quad IM 3+ [facility] TDAP Unknown Completed [facility] Rho (d) Immune Unknown Completed [facility] Influenza Virus Unknown Completed [facility] .5 mL [facility] 6+ [facility] (FLUZONE/FLULAVAL/F LUARIX) TDAP Unknown Completed [facility] Influenza Virus Unknown Completed [facility] Vaccine Quad IM 3+ [facility] TDAP Unknown Completed [facility] Rho (d) Immune Unknown Completed [facility] Influenza Virus Unknown Completed [facility]ine Quad .5 mL [facility] 6+ [facility] (FLUZONE/FLULAVAL/F LUARIX) TDAP Unknown Completed [facility] Influenza Virus Unknown Completed [facility] Vaccine Quad IM 3+ [facility] TDAP Unknown Completed [facility] Rho (d) Immune Unknown Completed [facility] Influenza Virus Unknown Completed [facility] Vaccine Quad .5 mL [facility] IM 6+ [facility] (FLUZONE/FLULAVAL/F LUARIX) TDAP Unknown Completed [facility] Influenza Virus Unknown Completed [facility] Vaccine Quad IM 3+ [facility] TDAP Unknown Completed [facility] Rho (d) Immune Unknown Completed [facility] Influenza Virus Unknown Completed [facility]ine Quad .5 mL [facility] 6+ [facility] (FLUZONE/FLULAVAL/F LUARIX) TDAP Unknown Completed [facility] Influenza Virus Unknown Completed [facility] Vaccine Quad IM 3+ [facility] TDAP Unknown Completed [facility] Rho (d) Immune Unknown Completed [facility] Influenza Virus Unknown Completed [facility]ine Quad .5 mL [facility] 6+ [facility] (FLUZONE/FLULAVAL/F LUARIX) TDAP Unknown Completed [facility] Influenza Virus Unknown Completed [facility] Vaccine Quad IM 3+ [facility] TDAP Unknown Completed [facility] Rho (d) Immune Unknown Completed [facility] Influenza Virus Unknown Completed [facility] Vaccine Quad .5 mL [facility] IM 6+ [facility] (FLUZONE/FLULAVAL/F LUARIX) TDAP Unknown Completed [facility] Influenza Virus Unknown Completed [facility] Vaccine Quad IM 3+ [facility] TDAP Unknown Completed [facility] Rho (d) Immune Unknown Completed [facility] Influenza Virus Unknown Completed [facility] Vaccine Quad .5 mL [facility] IM 6+ [facility] (FLUZONE/FLULAVAL/F LUARIX) TDAP Unknown Completed [facility] Influenza Virus Unknown Completed [facility] Vaccine Quad IM 3+ [facility] TDAP Unknown Completed [facility] Rho (d) Immune Unknown Completed [facility] Influenza Virus Unknown Completed [facility]ine Quad .5 mL [facility] 6+ MO [facility] (FLUZONE/FLULAVAL/F LUARIX) TDAP Unknown Completed [facility] Influenza Virus Unknown Completed [facility] Vaccine Quad IM 3+ [facility] TDAP Unknown Completed [facility] Rho (d) Immune Unknown Completed [facility] Influenza Virus Unknown Completed [facility] Vaccine Quad .5 mL [facility] 6+ [place] [facility] (FLUZONE/FLULAVAL/F LUARIX) Vital Signs Vital Name Observation Time Observation Value Comments Source Systolic blood 2023-06-12 131 mm[Hg] [facility] pressure 19:58:00 [facility] Diastolic blood 2023-06-12 71 mm[Hg] [facility] pressure 19:58:00 [facility] Heart rate 2023-06-12 69 /min [facility] :58:00 [facility] Body temperature 2023-06-12 36.78 Trice [facility] 19:58:00 [facility] Respiratory rate 2023-06-12 18 /min [facility] 19:58:00 [facility] Body height 2023-06-12 154.9 cm University of 19:58:00 [facility] Body weight 2023-06-12 67.132 kg University of 19:58:00 [facility] BMI 2023-06-12 27.96 kg/m2 University of 19:58:00 [facility] Oxygen saturation 2023-06-12 99 /min University of in Arterial blood 19:58:00 [facility] Pulse oximetry [facility] Systolic blood 2023-05-21 124 mm[Hg] University of pressure 15:29:00 [facility] Diastolic blood 2023-05-21 73 mm[Hg] University o f pressure 15:29:00 [facility] Heart rate 2023-05-21 95 /min University of 15:29:00 [facility] Body temperature 2023-05-21 37.06 Trice University of 15:29:00 [facility] Body height 2023-05-21 154.9 cm University of 15:29:00 [facility] Body weight 2023-05-21 69.854 kg University of 15:29:00 [facility] BMI 2023-05-21 29.10 kg/m2 University of 15:29:00 [facility] Heart rate 2023-05-19 67 /min University of 16:04:00 [facility] Body temperature 2023-05-19 36.44 Trice University of 15:58:31 [facility] Systolic blood 2023-05-19 102 mm[Hg] University of pressure 15:30:00 [facility] Diastolic blood 2023-05-19 59 mm[Hg] University o f pressure 15:30:00 [facility] Respiratory rate 2023-05-19 24 /min University of 15:30:00 [facility] Oxygen saturation 2023-05-19 98 /min University of in Arterial blood 15:30:00 [facility] Pulse oximetry Branch Body height 2023-05-19 154.9 cm University of 10:24:44 [facility] Body weight 2023-05-19 71.668 kg University of 10:24:44 [facility] BMI 2023-05-19 29.85 kg/m2 University of 10:24:44 [facility] Systolic blood 2023-05-11 114 mm[Hg] University of pressure 21:00:00 [facility] Diastolic blood 2023-05-11 68 mm[Hg] University o f pressure 21:00:00 [facility] Heart rate 2023-05-11 59 /min University of 21:00:00 [facility] Respiratory rate 2023-05-11 18 /min University of 21:00:00 [facility] Oxygen saturation 2023-05-11 100 /min [facility] in Arterial blood 21:00:00 [facility] by Pulse oximetry [place] Body temperature 2023-05-11 37.17 Trice University of 19:58:00 [facility] Body height 2023-05-11 154.9 cm University of 19:58:00 [facility] Body weight 2023-05-11 72.576 kg University of 19:58:00 [facility] BMI 2023-05-11 30.23 kg/m2 University of 19:58:00 [facility] Systolic blood 2023-01-01 112 mm[Hg] University of pressure 17:55:00 [facility] Diastolic blood 2023-01-01 70 mm[Hg] University o f pressure 17:55:00 [facility] Heart rate 2023-01-01 61 /min University of 17:55:00 [facility] Body height 2023-01-01 154.9 cm University of 17:55:00 [facility] Body weight 2023-01-01 68.04 kg University of 17:55:00 [facility] BMI 2023-01-01 28.34 kg/m2 University of 17:55:00 [facility] Systolic blood 2022-12-25 103 mm[Hg] University of pressure 15:23:00 [facility] Diastolic blood 2022-12-25 66 mm[Hg] University o f pressure 15:23:00 [facility] Heart rate 2022-12-25 73 /min University of 15:23:00 [facility] Body temperature 2022-12-25 36.83 Trice University of 15:23:00 [facility] Respiratory rate 2022-12-25 16 /min University of 15:23:00 [facility] Body weight 2022-12-25 69.31 kg University of 15:23:00 [facility] BMI 2022-12-25 28.87 kg/m2 University of 15:23:00 [facility] Oxygen saturation 2022-12-25 98 /min University of in Arterial blood 15:23:00 [facility] daren by Pulse oximetry Branch Systolic blood 2022-07-07 106 mm[Hg] University of pressure 17:16:00 [facility] Diastolic blood 2022-07-07 71 mm[Hg] University o f pressure 17:16:00 [facility] Heart rate 2022-07-07 78 /min University of 17:16:00 [facility] Body temperature 2022-07-07 36.94 Trice University of 17:16:00 [facility] Respiratory rate 2022-07-07 16 /min University of 17:16:00 [facility] Body height 2022-07-07 154.9 cm University of 17:16:00 [facility] Body weight 2022-07-07 76.658 kg University of 17:16:00 [facility] BMI 2022-07-07 31.93 kg/m2 University of 17:16:00 [facility] Oxygen saturation 2022-07-07 98 /min University of in Arterial blood 17:16:00 [facility] by Pulse oximetry Branch Systolic blood 2022-02-21 129 mm[Hg] University of pressure 18:27:00 [facility] Diastolic blood 2022-02-21 82 mm[Hg] University o f pressure 18:27:00 [facility] Heart rate 2022-02-21 63 /min University of 18:27:00 [facility] Body temperature 2022-02-21 36.94 Trice University of 18:27:00 [facility] Respiratory rate 2022-02-21 18 /min University of 18:27:00 [facility] Body height 2022-02-21 154.9 cm University of 18:27:00 [facility] Body weight 2022-02-21 89.404 kg University of 18:27:00 [facility] BMI 2022-02-21 37.24 kg/m2 University of 18:27:00 [facility] Oxygen saturation 2022-02-21 97 /min [facility] of in Arterial blood 18:27:00 [facility] Pulse oximetry Branch Systolic blood 2021-12-26 113 mm[Hg] University of pressure 20:37:00 [facility] Diastolic blood 2021-12-26 77 mm[Hg] University o f pressure 20:37:00 [facility] Heart rate 2021-12-26 85 /min University of 20:37:00 [facility] Body temperature 2021-12-26 36.83 Trice University of 20:37:00 [facility] Respiratory rate 2021-12-26 17 /min University of 20:37:00 [facility] Body height 2021-12-26 154.9 cm University of 20:37:00 [facility] Body weight 2021-12-26 90.266 kg University of 20:37:00 [facility] BMI 2021-12-26 37.60 kg/m2 University of 20:37:00 [facility] Oxygen saturation 2021-12-26 97 /min [facility] of in Arterial blood 20:37:00 [facility] Pulse oximetry Branch Systolic blood 2021-04-04 107 mm[Hg] University of pressure 20:06:00 [facility] Diastolic blood 2021-04-04 61 mm[Hg] University o f pressure 20:06:00 [facility] Heart rate 2021-04-04 91 /min [facility] of 20:06:00 [facility] Body temperature 2021-04-04 36.94 Trice [facility] of 20:06:00 [facility] Respiratory rate 2021-04-04 18 /min [facility] of 20:06:00 [facility] Body height 2021-04-04 154.9 cm University of 20:06:00 [facility] Body weight 2021-04-04 94.802 kg University of 20:06:00 [facility] BMI 2021-04-04 39.49 kg/m2 University of 20:06:00 [facility] Systolic blood 2021-02-13 113 mm[Hg] [facility] of pressure 15:42:00 [facility] Diastolic blood 2021-02-13 81 mm[Hg] [facility] o f pressure 15:42:00 [facility] Heart rate 2021-02-13 71 /min [facility] of 15:42:00 [facility] Body temperature 2021-02-13 38.11 Trice [facility] 15:42:00 [facility] Respiratory rate 2021-02-13 20 /min [facility] of 15:42:00 [facility] Body height 2021-02-13 154.9 cm University of 15:42:00 [facility] Body weight 2021-02-13 95.822 kg University of 15:42:00 [facility] BMI 2021-02-13 39.92 kg/m2 University of 15:42:00 [facility] Oxygen saturation 2021-02-13 98 /min [facility] in Arterial blood 15:42:00 [place] [facility] Pulse oximetry Branch Systolic blood 2021-02-13 113 mm[Hg] [facility] of pressure 15:42:00 [facility] Diastolic blood 2021-02-13 81 mm[Hg] University o f pressure 15:42:00 [facility] Heart rate 2021-02-13 71 /min [facility] of 15:42:00 [facility] Body temperature 2021-02-13 38.11 Trice [facility] of 15:42:00 [facility] Respiratory rate 2021-02-13 20 /min [facility] of 15:42:00 [facility] Body height 2021-02-13 154.9 cm University of 15:42:00 [facility] Body weight 2021-02-13 95.822 kg University of 15:42:00 [facility] BMI 2021-02-13 39.92 kg/m2 University of 15:42:00 [facility] Oxygen saturation 2021-02-13 98 /min [facility] of in Arterial blood 15:42:00 [facility] by Pulse oximetry Branch Systolic blood 2020-12-10 129 mm[Hg] University of pressure 14:44:00 [facility] Diastolic blood 2020-12-10 71 mm[Hg] University o f pressure 14:44:00 [facility] Heart rate 2020-12-10 99 /min [facility] of 14:44:00 [facility] Body temperature 2020-12-10 36.22 Trice [facility] of 14:44:00 [facility] Respiratory rate 2020-12-10 20 /min [facility] of 14:44:00 [facility] Body height 2020-12-10 154.9 cm University of 14:44:00 [facility] Body weight 2020-12-10 97.523 kg University of 14:44:00 [facility] BMI 2020-12-10 40.62 kg/m2 University of 14:44:00 [facility] Oxygen saturation 2020-12-10 99 /min [facility] in Arterial blood 14:44:00 [place] [facility] Pulse oximetry Branch Systolic blood 2020-12-10 129 mm[Hg] [facility] of pressure 14:44:00 [facility] Diastolic blood 2020-12-10 71 mm[Hg] University o f pressure 14:44:00 [facility] Heart rate 2020-12-10 99 /min University of 14:44:00 [facility] Body temperature 2020-12-10 36.22 Trice [facility] of 14:44:00 [facility] Respiratory rate 2020-12-10 20 /min [facility] of 14:44:00 [facility] Body height 2020-12-10 154.9 cm University of 14:44:00 [facility] Body weight 2020-12-10 97.523 kg University of 14:44:00 [facility] BMI 2020-12-10 40.62 kg/m2 University of 14:44:00 [facility] Oxygen saturation 2020-12-10 99 /min [facility] in Arterial blood 14:44:00 [place] [facility] Pulse oximetry Branch Systolic blood 2020-11-29 107 mm[Hg] [facility] of pressure 20:12:00 [facility] Diastolic blood 2020-11-29 66 mm[Hg] University o f pressure 20:12:00 [facility] Heart rate 2020-11-29 89 /min [facility] of 20:12:00 [facility] Body height 2020-11-29 154.9 cm University of 20:12:00 [facility] Body weight 2020-11-29 97.523 kg University of 20:12:00 [facility] BMI 2020-11-29 40.62 kg/m2 University of 20:12:00 [facility] Oxygen saturation 2020-11-29 95 /min [facility] in Arterial blood 20:12:00 [place] [facility] Pulse oximetry [facility] Systolic blood 2020-11-29 107 mm[Hg] [facility] of pressure 20:12:00 [facility] Diastolic blood 2020-11-29 66 mm[Hg] University o f pressure 20:12:00 [facility] Heart rate 2020-11-29 89 /min [facility] of 20:12:00 [facility] Body height 2020-11-29 154.9 cm University of 20:12:00 [facility] Body weight 2020-11-29 97.523 kg University of 20:12:00 [facility] BMI 2020-11-29 40.62 kg/m2 University of 20:12:00 [facility] Oxygen saturation 2020-11-29 95 /min [facility] in Arterial blood 20:12:00 [place] [facility] Pulse oximetry [facility] Systolic blood 2020-11-21 98 mm[Hg] [facility] of pressure 14:00:00 [facility] Diastolic blood 2020-11-21 60 mm[Hg] University o f pressure 14:00:00 [facility] Heart rate 2020-11-21 61 /min [facility] of 14:00:00 [facility] Body temperature 2020-11-21 36.83 Trice University of 14:00:00 [facility] Respiratory rate 2020-11-21 18 /min [facility] of 14:00:00 [facility] Body height 2020-11-21 154.9 cm University of 14:00:00 [facility] Body weight 2020-11-21 97.977 kg University of 14:00:00 [facility] BMI 2020-11-21 40.81 kg/m2 University of 14:00:00 [facility] Systolic blood 2020-11-09 127 mm[Hg] University of pressure 19:40:00 [facility] Diastolic blood 2020-11-09 88 mm[Hg] University o f pressure 19:40:00 [facility] Heart rate 2020-11-09 78 /min [facility] of 19:40:00 [facility] Respiratory rate 2020-11-09 16 /min University of 19:40:00 [facility] Oxygen saturation 2020-11-09 99 /min [facility] in Arterial blood 19:40:00 [facility] by Pulse oximetry Branch Body temperature 2020-11-09 36.94 Trice University of 17:57:00 [facility] Body weight 2020-11-09 99.791 kg University of 17:57:00 [facility] BMI 2020-11-09 41.57 kg/m2 University of 17:57:00 [facility] Systolic blood 2020-10-24 111 mm[Hg] [facility] of pressure 15:18:00 [facility] Diastolic blood 2020-10-24 72 mm[Hg] University o f pressure 15:18:00 [facility] Heart rate 2020-10-24 74 /min University of 15:18:00 [facility] Body temperature 2020-10-24 36.61 Trice [facility] of 15:18:00 [facility] Respiratory rate 2020-10-24 18 /min [facility] of 15:18:00 [facility] Body height 2020-10-24 154.9 cm University of 15:18:00 [facility] Body weight 2020-10-24 100.699 kg University of 15:18:00 [facility] BMI 2020-10-24 41.95 kg/m2 University of 15:18:00 [facility] Systolic blood 2020-10-22 124 mm[Hg] University of pressure 18:19:00 [facility] Diastolic blood 2020-10-22 79 mm[Hg] University o f pressure 18:19:00 [facility] Heart rate 2020-10-22 70 /min [facility] of 18:19:00 [facility] Body temperature 2020-10-22 36.94 Trice [facility] of 18:19:00 [facility] Respiratory rate 2020-10-22 18 /min [facility] of 18:19:00 [facility] Body height 2020-10-22 154.9 cm University of 18:19:00 [facility] Body weight 2020-10-22 99.791 kg University of 18:19:00 [facility] BMI 2020-10-22 41.57 kg/m2 University of 18:19:00 [facility] Oxygen saturation 2020-10-22 98 /min [facility] in Arterial blood 18:19:00 [facility] by Pulse oximetry Branch Systolic blood 2020-10-20 134 mm[Hg] University of pressure 04:03:00 [facility] Diastolic blood 2020-10-20 84 mm[Hg] University o f pressure 04:03:00 [facility] Heart rate 2020-10-20 65 /min University of 04:03:00 [facility] Respiratory rate 2020-10-20 18 /min [facility] of 04:03:00 [facility] Oxygen saturation 2020-10-20 99 /min [facility] in Arterial blood 04:03:00 [facility] by Pulse oximetry Branch Body temperature 2020-10-20 36.89 Trice University of 01:30:40 [facility] Body height 2020-10-20 154.9 cm University of :27:00 [facility] Body weight 2020-10-20 99.791 kg University of 01:27:00 [facility] BMI 2020-10-20 41.57 kg/m2 University of :27:00 [facility] Heart rate 2020-07-02 73 /min University of 00:21:00 [facility] Respiratory rate 2020-07-02 16 /min University of 00:21:00 [facility] Oxygen saturation 2020-07-02 98 /min [facility] of in Arterial blood 00:21:00 [facility] daren by Pulse oximetry Branch Systolic blood 2020-06-06 112 mm[Hg] [facility] of pressure 15:51:00 [facility] Diastolic blood 2020-06-06 77 mm[Hg] University o f pressure 15:51:00 [facility] Heart rate 2020-06-06 78 /min [facility] of 15:51:00 [facility] Body temperature 2020-06-06 37.06 Trcie University of 15:51:00 [facility] Respiratory rate 2020-06-06 20 /min [facility] of 15:51:00 [facility] Body height 2020-06-06 154.9 cm University of 15:51:00 [facility] Oxygen saturation 2020-06-06 98 /min [facility] in Arterial blood 15:51:00 [facility] by Pulse oximetry Branch Systolic blood 2020-05-27 108 mm[Hg] [facility] of pressure 15:22:00 [facility] Diastolic blood 2020-05-27 63 mm[Hg] University o f pressure 15:22:00 [facility] Heart rate 2020-05-27 83 /min University of 15:22:00 [facility] Body temperature 2020-05-27 36.17 Trice University of 15:22:00 [facility] Respiratory rate 2020-05-27 19 /min [facility] of 15:22:00 [facility] Body height 2020-05-27 154.9 cm University of 15:22:00 [facility] Body weight 2020-05-27 92.534 kg University of 15:: [facility] BMI 2020-05-27 38.55 kg/m2 University of 15:22:00 [facility] Oxygen saturation 2020-05-27 97 /min [facility] in Arterial blood 15:22:00 [facility] by Pulse oximetry Branch Systolic blood 2020-04-09 128 mm[Hg] [facility] pressure 15:38:00 [facility] Diastolic blood 2020-04-09 71 mm[Hg] University o f pressure 15:38:00 [facility] Heart rate 2020-04-09 85 /min University of 15:38:00 [facility] Body temperature 2020-04-09 37 Trice [facility] of 15:38:00 [facility] Respiratory rate 2020-04-09 18 /min University of 15:38:00 [facility] Body height 2020-04-09 154.9 cm University of 15:38:00 [facility] Body weight 2020-04-09 99.882 kg University of 15:38:00 [facility] BMI 2020-04-09 41.61 kg/m2 University of 15:38:00 [facility] Oxygen saturation 2020-04-09 100 /min [facility] in Arterial blood 15:38:00 [facility] by Pulse oximetry Branch Systolic blood 2020-03-11 119 mm[Hg] [facility] pressure 18:55:00 [facility] Diastolic blood 2020-03-11 68 mm[Hg] University o f pressure 18:55:00 [facility] Heart rate 2020-03-11 83 /min University of 18:38:00 [facility] Body temperature 2020-03-11 37 Trice University of 18:38:00 [facility] Respiratory rate 2020-03-11 18 /min University of 18:38:00 [facility] Oxygen saturation 2020-03-11 100 /min [facility] in Arterial blood 18:38:00 [facility] by Pulse oximetry Branch Systolic blood 2020-03-07 131 mm[Hg] [facility] pressure 03:00:00 [facility] Diastolic blood 2020-03-07 78 mm[Hg] University o f pressure 03:00:00 [facility] Heart rate 2020-03-07 81 /min University of 03:00:00 [facility] Respiratory rate 2020-03-07 18 /min [facility] of 03:00:00 [facility] Oxygen saturation 2020-03-07 99 /min [facility] in Arterial blood 03:00:00 [facility] by Pulse oximetry Branch Body temperature 2020-03-07 36.83 Trice University [facility] 00:50:00 [facility] Body height 2020-03-07 154.9 cm University of 00:50:00 [facility] Body weight 2020-03-07 95.255 kg University of 00:50:00 [facility] BMI 2020-03-07 39.68 kg/m2 University of 00:50:00 [facility] Systolic blood 2020-03-06 131 mm[Hg] [facility] of pressure 15:38:00 [facility] Diastolic blood 2020-03-06 77 mm[Hg] University o f pressure 15:38:00 [facility] Heart rate 2020-03-06 99 /min [facility] 15:38:00 [facility] Body temperature 2020-03-06 37.06 Trice [facility] of 15:38:00 [facility] Respiratory rate 2020-03-06 18 /min [facility] of 15:38:00 [facility] Body weight 2020-03-06 99.791 kg University of 15:38:00 [facility] BMI 2020-03-06 41.57 kg/m2 University of 15:38:00 [facility] Oxygen saturation 2020-03-06 97 /min [facility] in Arterial blood 15:38:00 [facility] by Pulse oximetry Branch Systolic blood 2020-02-08 115 mm[Hg] [facility] of pressure 02:31: [facility] Diastolic blood 2020-02-08 66 mm[Hg] University o f pressure 02:31:00 [facility] Heart rate 2020-02-08 79 /min University of 02::00 [facility] Body temperature 2020-02-08 36.94 Trice University of 02:31:00 [facility] Respiratory rate 2020-02-08 16 /min University of 02:31:00 [facility] Body height 2020-02-08 154.9 cm University of 02::00 [facility] Body weight 2020-02-08 91.173 kg University of 02::00 [facility] BMI 2020-02-08 37.98 kg/m2 University of 02:31:00 [facility] Oxygen saturation 2020-02-08 99 /min [facility] in Arterial blood 02:31:00 [facility] by Pulse oximetry Branch Systolic blood 2019-12-15 120 mm[Hg] University of pressure 02:00:00 [facility] Diastolic blood 2019-12-15 66 mm[Hg] University o f pressure 02:00:00 [facility] Heart rate 2019-12-15 65 /min University of 02:00:00 [facility] Respiratory rate 2019-12-15 17 /min University of 02:00:00 [facility] Oxygen saturation 2019-12-15 99 /min [facility] in Arterial blood 02:00:00 [facility] by Pulse oximetry Branch Body temperature 2019-12-14 37.33 Trice University of 21:23:00 [facility] Body weight 2019-12-14 77.111 kg University of 21:23:00 [facility] BMI 2019-12-14 32.12 kg/m2 University of 21:23:00 [facility] Systolic blood 2019-11-27 117 mm[Hg] University of pressure 15:10:00 [facility] Diastolic blood 2019-11-27 74 mm[Hg] University o f pressure 15:10:00 [facility] Heart rate 2019-11-27 80 /min University of 15:10:00 [facility] Respiratory rate 2019-11-27 12 /min University of 15:10:00 [facility] Oxygen saturation 2019-11-27 97 /min [facility] in Arterial blood 15:10:00 [facility] by Pulse oximetry Branch Body temperature 2019-11-27 37.28 Trice University of 14:15:00 [facility] Body weight 2019-11-27 81.647 kg University of 14::00 [facility] BMI 2019-11-27 34.01 kg/m2 University of 14::00 [facility] Systolic blood 2019-11-16 116 mm[Hg] University of pressure 13:24:00 [facility] Diastolic blood 2019-11-16 74 mm[Hg] University o f pressure 13:24:00 [facility] Heart rate 2019-11-16 78 /min University of 13:24:00 [facility] Body temperature 2019-11-16 36.78 Trice University of 13:24:00 [facility] Respiratory rate 2019-11-16 18 /min University of 13:24:00 [facility] Body height 2019-11-16 154.9 cm University of 13:24:00 [facility] Body weight 2019-11-16 83.915 kg University of 13:24:00 [facility] BMI 2019-11-16 34.96 kg/m2 University of 13:24:00 [facility] Systolic blood 2019-10-22 130 mm[Hg] University of pressure 19:04:00 [facility] Diastolic blood 2019-10-22 83 mm[Hg] University o f pressure 19:04:00 [facility] Heart rate 2019-10-22 77 /min University of 19:04:00 [facility] Body temperature 2019-10-22 36.28 Trice University of 19:04:00 [facility] Respiratory rate 2019-10-22 16 /min University of 19:04:00 [facility] Body height 2019-10-22 154.9 cm University of 19:04:00 [facility] Body weight 2019-10-22 79.153 kg University of 19:04:00 [facility] BMI 2019-10-22 32.97 kg/m2 University of 19:04:00 [facility] Systolic blood 2019-10-01 117 mm[Hg] University of pressure 16:41:00 [facility] Diastolic blood 2019-10-01 73 mm[Hg] University o f pressure 16:41:00 [facility] Heart rate 2019-10-01 86 /min University of 16:41:00 [facility] Body temperature 2019-10-01 36.67 Trice University of 16:41:00 [facility] Respiratory rate 2019-10-01 16 /min University of 16:41:00 [facility] Body height 2019-10-01 154.9 cm University of 16:41:00 [facility] Body weight 2019-10-01 78.983 kg University of 16:41:00 [facility] BMI 2019-10-01 32.90 kg/m2 University of 16:41:00 [facility] Systolic blood 2019-09-16 117 mm[Hg] University of pressure 14:41:04 [facility] Diastolic blood 2019-09-16 78 mm[Hg] University o f pressure 14:41:04 [facility] Heart rate 2019-09-16 74 /min University of 14:41:04 [facility] Body temperature 2019-09-16 36.94 Trice University of 14:41:04 [facility] Respiratory rate 2019-09-16 20 /min University of 14:41:04 [facility] Oxygen saturation 2019-09-16 100 /min University in Arterial blood 14:41:04 [facility] by Pulse oximetry [place] Body weight 2019-09-16 77.565 kg University of 12:24:00 [facility] BMI 2019-09-16 32.31 kg/m2 University of 12:24:00 [facility] Systolic blood 2019-09-09 126 mm[Hg] University of pressure 19:24:00 [facility] Diastolic blood 2019-09-09 82 mm[Hg] University o f pressure 19:24:00 [facility] Heart rate 2019-09-09 86 /min University of 19:24:00 [facility] Body temperature 2019-09-09 37.22 Trice University of 19:24:00 [facility] Respiratory rate 2019-09-09 16 /min University of 19:24:00 [facility] Body height 2019-09-09 154.9 cm University of 19:24:00 [facility] Body weight 2019-09-09 77.565 kg [facility] 19:24:00 [facility] BMI 2019-09-09 32.31 kg/m2 University 19:24:00 [facility] Oxygen saturation 2019-09-09 98 /min University in Arterial blood 19:24:00 [facility] by Pulse oximetry [place] Systolic blood 2019-09-03 119 mm[Hg] [facility] pressure 20:38:00 [place] [facility] [facility] Diastolic blood 2019-09-03 74 mm[Hg] University o f pressure 20:38:00 [facility] Heart rate 2019-09-03 69 /min University 20:38:00 [facility] Body temperature 2019-09-03 36.94 Trice University 20:38:00 [facility] Respiratory rate 2019-09-03 16 /min [facility] 20:38:00 [facility] Body height 2019-09-03 154.9 cm [facility] 20:38:00 [facility] Body weight 2019-09-03 77.764 kg [facility] 20:38:00 [facility] BMI 2019-09-03 32.39 kg/m2 University 20:38:00 [facility] Systolic blood 2022-09-06 107 mm[Hg] [facility] pressure 17:45:20 [facility] Diastolic blood 2022-09-06 67 mm[Hg] [facility] pressure 17:45:20 [facility] Heart rate 2022-09-06 50 /min [facility] 17:45:20 [facility] Body temperature 2022-09-06 36.56 Trice [facility] 17:45:20 [facility] Respiratory rate 2022-09-06 18 /min [facility] 17:45:20 [facility] Oxygen saturation 2022-09-06 99 /min [facility] in Arterial blood 17:45:20 [facility] by Pulse oximetry Body height 2022-09-04 157.5 cm [facility] 20:14:00 [facility] Body weight 2022-09-04 60.782 kg [facility] 20:14:00 [facility] BMI 2022-09-04 24.51 kg/m2 [facility] 20:14:00 [facility] Systolic blood 2020-07-27 123 mm[Hg] Location: [...] Systolic blood 2019-11-30 106 mm[Hg] Location: [place]; [place] [facility] pressure 14:06:00 Position: Sitting Diastolic [...] Date / Time Performing Clinician Source Performed MEDICATION CORRESPONDENCE 2023-06-13 05:01:00 Doctor Unassigned, [facility] [place] [facility] US PELVIS COMPLETE WITH 2023-05-30 16:09:19 Olman Sheth [facility] TRANSVAGINAL [facility] POCT TEST 2023-05-21 00:00:00 Olman Sheth [facility] POCT URINALYSIS W/O 2023-05-21 00:00:00 Olman Sheth [facility] SPECIFIC GRAVITY [facility] PROTHROMBIN TIME / INR 2023-05-19 14:59:00 Bo Peguero [facility] D-DIMER 2023-05-19 14:59:00 [facility] ACTIVATED PARTIAL THRMPLAS 2023-05-19 14:59:00 Bo Peguero [facility] FIBRINOGEN 2023-05-19 14:59:00 Bo Peguero [facility] Silvia [facility] COMP. METABOLIC PANEL 2023-05-19 10:22:00 Rajinder Chávez [facility] ([id number]) Medical Branch CBC WITH DIFF 2023-05-19 10:22:00 Singer [facility] PROTHROMBIN TIME / INR 2023-05-19 10:22:00 Singer Rajinder [facility] D-DIMER 2023-05-19 10:22:00 Singer [facility] ACTIVATED PARTIAL THRMPLAS 2023-05-19 10:22:00 Rajinder Chávez [facility] BENJAMIN [facility] FIBRINOGEN 2023-05-19 10:22:00 Singer [facility] CONSENT/REFUSAL FOR 2023-05-19 10:06:05 Doctor Unaaurelio, [facility] DI[facility] ABDOMEN PELVIS W 2023-05-11 20:38:43 Farheen [facility] CONTRAST [facility] HEPATIC FUNCTION PANEL 2023-05-11 20:13:00 Farheen [facility] ([id number]) (ALB,T.PRO,BILI Medical Branch T,BU/BC,ALT,AST,ALK PHOS) BASIC METABOLIC PANEL (NA, 2023-05-11 20:13:00 German ZhongJose G [facility] K, CL, CO2, GLUCOSE, BUN, Medica l Branch CREATININE, CA) CBC WITH DIFF 2023-05-11 20:13:00 Farheen [facility] URINALYSIS 2023-05-11 20:13:00 Farheen [facility] POCT TEST 2023-05-11 20:12:[address] [facility] CONSENT/REFUSAL FOR 2023-05-11 19:48:34 Doctor Unasssally, [facility] DIAGNOSIS [facility] ASSIGNMENT OF BENEFITS 2023-01-01 17:48:02 Doctor Unassigned, [facility] [place] [facility] XR FOOT 3+ VW LEFT 2022-12-25 15:41:08 Madhuri Haile [facility] y of [place] [facility] XR ANKLE 3+ VW LEFT 2022-12-25 15:40:54 Madhuri Haile [facility] ty [facility] [place] Medical [facility] PATIENT FINANCIAL 2022-12-25 15:07:32 Doctor [facility]assigned, [facility] [place] [facility] CBC WITH PLATELET AND 2022-09-06 10:25:00 [facility] DIFFERENTIAL BASIC METABOLIC PANEL 2022-09-06 10:25:00 [facility] ESTIMATED GFR 2022-09-06 10:25:00 [facility] alonzo [place] AN ELECTIVE 2022-09-05 23:03:00 [facility] ENDOTRAC[facility] AIRWAY EXTRACTION, TOOTH 2022-09-05 22:49:00 Omar Priest [facility] VWD PANEL 2022-09-05 20:45:00 August De León [facility] alonzo Tomer MISCELLANEOUS REFERRAL 2022-09-05 20:45:00 Marli Fleming [facility] TEST ECG 12-LEAD 2022-09-05 16:13:13 [facility] ospital SURGICAL PATHOLOGY REQUEST 2022-09-05 13:55:00 [facility] CBC WITH PLATELET AND 2022-09-05 12:38:00 [facility] DIFFERENTIAL PROTHROMBIN TIME WITH INR 2022-09-05 12:38:00 [facility] PARTIAL THROMBOPLASTIN 2022-09-05 12:38:00 [facility] TIME (PTT) COMPREHENSIVE METABOLIC 2022-09-05 12:38:00 [facility] PANEL MAGNESIUM LEVEL 2022-09-05 12:38:00 [facility] ospital PHOSPHORUS LEVEL 2022-09-05 12:38:00 [facility] THYROID STIMULATING 2022-09-05 12:38:00 [facility] HORMONE ESTIMATED GFR 2022-09-05 12:38:00 [facility] URINE DRUGS OF ABUSE 2022-09-05 08:02:00 Ирина Humphreys [facility] SCREEN CT MAXILLOFACIAL W 2022-09-05 00:17:00 [facility] CONTRAST COVID-19, INFLUENZA A&B, 2022-09-04 23:43:00 [facility] AND RSV QUALITATIVE RT-PCR BLOOD CULTURE, AEROBIC & 2022-09-04 23:43:00 [facility] ANAEROBIC URINE CULTURE 2022-09-04 22:06:00 [facility] URINALYSIS SCREEN AND 2022-09-04 21:21:00 [facility] MICROSCOPY, WITH REFLEX TO CULTURE BLOOD CULTURE, AEROBIC & 2022-09-04 21:17:00 [facility] ANAEROBIC CBC WITH PLATELET AND 2022-09-04 21:16:00 [facility] DIFFERENTIAL COMPREHENSIVE METABOLIC 2022-09-04 21:16:00 [facility] PANEL HCG QUALITATIVE, SERUM 2022-09-04 21:16:00 [facility] SCREEN ESTIMATED GFR 2022-09-04 21:16:00 [facility] CONSENT/REFUSAL FOR 2021-12-26 20:32:40 Doctor Unassigned, [facility] DIAGNOSIS AND TREATMENT [place] [facility] [place] ASSIGNMENT OF BENEFITS 2021-12-26 20:32:30 [facility] [place] [facility] [place] CONSENT FOR CONTRACEPTION 2021-04-04 05:01:00 Doctor Vaughn, [facility] [place] [facility] POCT TEST 2021-04-04 00:00:00 Liv Ferreira [facility] [place] POCT URINALYSIS W/O 2021-04-04 00:00:00 Jhon [facility] SPECIFIC GRAVITY [facility] POCT GRP A STREP 2021-02-13 15:49:00 Fransisco Escobar [facility] (MOLECULAR) [facility] POCT FLU A AND B 2020-12-10 14:54:00 Skyler Moser [facility] ([facility]) [facility] POCT GRP A STREP 2020-12-10 14:50:00 Skyler Moser [facility] ([facility]) [facility] DISCLOSURE AND CONSENT, 2020-11-21 05:01:00 Doctor Unassigned, [facility] MEDICAL AND SURGICAL [place] [facility] n[place] PROCEDURES POCT TEST 2020-11-21 00:00:00 Olman Sheth [facility] BASIC METABOLIC PANEL (NA, 2020-11-09 18:30:00 Ami Perry [facility] K, CL, CO2, GLUCOSE, BUN, Medica l Branch CREATININE, CA) CBC WITH DIFF 2020-11-09 18:30:00 Ami Perry [facility] URINALYSIS 2020-11-09 18:30:00 Ami Perry [facility] HB ABO GROUPING 2020-11-09 18:29:00 Ami Perry [facility] POCT TEST 2020-11-09 18:19:00 Ami Perry [facility] CONSENT/REFUSAL FOR 2020-11-09 17:47:24 Doctor Unassigned, [facility] DIAGNOSIS AND TREATMENT [place] [facility] POCT URINALYSIS W/O 2020-10-24 00:00:00 Olman Sheth [facility] SPECIFIC GRAVITY [facility] US OVARY TORSION 2020-10-20 03:54:07 Garrett Lares [facility] LIPASE 2020-10-20 02:31:00 Garrett Lares [facility] COMP. METABOLIC PANEL 2020-10-20 02:31:00 Garrett Lares [facility] ([id number]) [facility] CBC WITH DIFF 2020-10-20 02:31:00 Garrett Lares [facility] PROTHROMBIN TIME / INR 2020-10-20 02:31:00 Garrett Lares [facility] URINALYSIS 2020-10-20 02:31:00 Garrett Lares [facility] POCT TEST 2020-10-20 01:42:00 Garrett Lares [facility] [QL] CBC (INCLUDES 2020-07-04 00:00:00 [facility] DIFF/PLT) [Q] VON [place] 2020-07-04 00:00:00 [facility] COMPREHENSIVE PANEL [QL] PROTHROMBIN W/INR + 2020-07-04 00:00:00 [facility] PARTIAL THROMBOPLASTIN TIMES . [facility] - PAP w/reflex 2020-06-29 00:00:00 [facility] HPV if ASC-US or above POCT GRP A STREP 2020-06-06 16:16:00 Shawn [facility] (MOLECULAR) [facility] POCT FLU A AND B 2020-06-06 16:03:00 Shawn [facility] ([facility]) [facility] XR ANKLE 3+ VW RIGHT 2020-05-27 17:21:16 Shawn [facility] XR SHOULDER 2+ VW RIGHT 2020-05-27 17:21:16 Shawn [facility] XR WRIST 3+ VW LEFT 2020-05-27 17:21:16 Fransisco [facility] COVID-19 (ID NOW RAPID 2020-04-09 16:05:00 Olman Sheth [facility]IS 2020-04-09 15:53:00 Olman Sheth [place] [facility] ADC ONLY - FERN TEST 2020-04-09 15:53:00 Olman Shteh [facility] [QL] CMP W/EGFR 2020-03-24 00:00:00 [facility] [Q] BILE ACIDS, 2020-03-24 00:00:00 [facility] FRACTIONATED AND TOTAL, [QL] CULTURE, URINE, 2020-03-24 00:00:00 [facility] ROUTINE US PELVIS > 14 2020-03-11 21:08:41 Joey Mendoza [facility] ADC ONLY - FERN TEST 2020-03-11 19:03:[address] [facility] CONSENT/REFUSAL FOR 2020-03-11 17:53:01 Doctor Unassigned, [facility] DIAGNOSIS AND TREATMENT [place] [facility] . [facility] - 2020-03-09 00:00:00 [facility] COVID-19/SARS-Cov-2 NOTICE OF PRIVACY 2020-03-07 01:17:26 Doctor Unassigned, [facility] [place] [facility] [place] BASIC METABOLIC PANEL (NA, 2020-03-07 01:11:00 Mona Saxena [facility] K, CL, CO2, GLUCOSE, BUN, Medica l Branch CREATININE, CA) CBC WITH DIFFERENTIAL 2020-03-07 01:11:00 Mona Saxena [facility] COVID-19 (ID NOW RAPID 2020-03-07 01:11:00 Mona Saxena [facility] TESTING) Medical Branch CONSENT/REFUSAL FOR 2020-03-06 15:19:43 Doctor Unassigned, [facility] DIAGNOSIS AND TREATMENT [place] [facility] [Q] GLUCOSE, GESTATIONAL 2020-02-18 00:00:00 [facility] SCREEN (50G)-130 CUTOFF [QL] CBC (INCLUDES 2020-02-18 00:00:00 [facility] DIFF/PLT) NOTICE OF PRIVACY 2020-02-08 02:22:40 Doctor Unassigned, [facility] [place] [facility] [place] CONSENT/REFUSAL FOR 2020-02-08 02:22:25 Doctor Unasssally, [facility] DIAGNOSIS AND TREATMENT [place] [facility] EKG w/Rhythm Strip 2020-01-21 00:00:00 [facility] [QL] URINALYSIS, COMPLETE 2020-01-21 00:00:00 [facility] [Q] GLUCOSE, GESTATIONAL 2020-01-21 00:00:00 [facility] SCREEN (50G)-130 CUTOFF [QL] CBC (INCLUDES 2020-01-21 00:00:00 [facility] DIFF/PLT) [QL] CULTURE, URINE, 2020-01-21 00:00:00 [facility] ROUTINE . [facility] - Affirm VPIII 2020-01-15 00:00:00 [facility] (BV Panel) URINALYSIS 2019-12-15 01:02:00 Garrett Lares [facility] LIPASE 2019-12-14 23:44:00 Mg Stallworth [facility] TROPONIN I 2019-12-14 23:44:00 Mg Stallworth [facility] COMP. METABOLIC PANEL 2019-12-14 23:44:00 Mg Stallworth [facility] ([id number]) Medical [place] CBC WITH DIFFERENTIAL 2019-12-14 23:44:00 Mg Stallworth [facility] PROTHROMBIN TIME / INR 2019-12-14 23:44:00 Mg Stallworth [facility] ACTIVATED PARTIAL THRMPLAS 2019-12-14 23:44:00 Mg Stallworth [facility] CORONAVIRUS COVID-19 2019-12-14 23:44:00 Mg Stallworth [facility] TESTING [facility] NOTICE OF PRIVACY 2019-12-14 21:11:25 Doctor Unassigned, [facility] PRACTICES [place] [facility] CONSENT/REFUSAL FOR 2019-12-14 21:08:11 Doctor Unassigned, [facility] DIAGNOSIS AND TREATMENT [place] [facility] [Q] [id number] 2019-11-30 00:00:00 [facility] DEHYDROGENASE, QUANT. [...] (BV Panel) URINALYSIS 2019-11-27 15:14:00 Suman Sun [facility] [facility] PELVIS > 14 2019-11-27 15:05:58 Suman Sun [facility] CONSENT/REFUSAL FOR 2019-11-27 14:10:39 Doctor Unassigned, [facility] DIAGNOSIS AND TREATMENT [place] [facility] [place] ASSIGNMENT OF BENEFITS 2019-11-16 14:34:05 Doctor Unassigned, [facility] Name [facility] FLU VACC ([id number]), 6+ 2019-11-16 14:11:55 Olman Sheth [facility] MONTHS, IM, [facility] Medical [place] MEDICATION CORRESPONDENCE 2019-10-28 06:01:00 Doctor Unasssally, [facility] Name [facility] POCT URINALYSIS 2019-10-22 19:04:00 Fernandez Stiles [facility] POCT URINALYSIS 2019-10-01 16:48:00 Fernandez Stiles [facility] US FIRST 2019-09-16 14:37:56 Mg Stallworth [facility] TRIMESTER LESS THAN 14 Medical B ranch WEEKS WITH TRANSVAGINAL HEPATIC FUNCTION PANEL 2019-09-16 12:48:00 Mg Stallworth [facility] ([id number]) (ALB,T.PRO,BILI Medical Branch T,BU/BC,ALT,AST,ALK PHOS) BASIC METABOLIC PANEL (NA, 2019-09-16 12:48:00 Mg Stallworth [facility] K, CL, CO2, GLUCOSE, BUN, Medica l Branch CREATININE, CA) TOTAL BETA HCG ASSAY 2019-09-16 12:48:00 Mg Stallworth [facility] CBC WITH DIFFERENTIAL 2019-09-16 12:48:00 Mg Stallworth [facility] PROTHROMBIN TIME / INR 2019-09-16 12:48:00 Mg Stallworth [facility] ACTIVATED PARTIAL THRMPLAS 2019-09-16 12:48:00 Mg Stallworth [facility] HB ABO GROUPING 2019-09-16 12:48:00 [place], Mg [facility] URINALYSIS 2019-09-16 12:35:00 Mg [place] [facility] POCT TEST 2019-09-16 12:35:00 Mg [facility] CONSENT/REFUSAL FOR 2019-09-16 12:18:18 Doctor Unasssally [facility] DIAGNOSIS [facility] NOTICE OF PRIVACY 2019-09-09 19:06:44 Doctor Unasssally, [facility]ICES [facility] CONSENT/REFUSAL FOR 2019-09-09 19:06:32 Doctor Unasssally, [facility] DIAGNOSIS AND TREATMENT [facility] CBC WITH DIFFERENTIAL 2019-09-03 22:05:00 Fern[facility] RUBELLA SCREEN IGG 2019-09-03 22:05:00 Fernandez Stiles [facility] VZV ANTIBODY SCREEN 2019-09-03 22:05:00 Fernandez Stiles Uni [facility] HEPATITIS B SURFACE 2019-09-03 22:05:00 Fernandez Stiles [facility] GC & CHLAMYDIA AMPLIFIED 2019-09-03 22:05:00 Fernandez Stiles [facility] ASSAY [facility] PAP SMEAR-LIQUID BASED-CP 2019-09-03 22:05:00 Fernandez Stiles [facility] HIV 1/2 AG-AB WITH REFLEX 2019-09-03 22:03:00 Fernandez Stiles [facility] GALV ONLY - SYPHILIS 2019-09-03 22:03:00 Fernandez St[facility] IGG/IGM [facility] HB ABO GROUPING 2019-09-03 21:40:00 Fernandez Stiles [facility] POCT URINALYSIS W/O 2019-09-03 20:42:00 Fernandez Stiles Uni [facility] SPECIFIC GRAVITY [facility] POCT TEST 2019-09-03 20:40:00 Fern[address] Uni [facility] History of Tonsillectomy [facility] History of Dilation And [facility] Curettage History of Appendectomy [facility] Plan of Care Planned Activity Planned Date Details Comments Source Future Scheduled Test 2023-06-23 COVID-19 VACCINE [facility] 13:38:43 (#1) [code = COVID-19 VACCINE (#1)] Future Scheduled Test 2023-06-23 Hepatitis C [facility] 13:38:43 screening (procedure) [code = 599363925] Future Scheduled Test 2023-06-23 [facility] 13:38:43 malignant neoplasm of cervix (procedure) [code = 035913181] Future Scheduled Test 2023-06-[address] [facility] 13:38:43 (#1) [code = INFLUENZA VACCINE (#1)] Future Scheduled Test 2022-10-[address] [facility] 00:58:09 [code = INFLUENZA VACCINE] Future Scheduled Test 2022-10-08 COVID-19 VACCINE [facility] 00:58:09 (#1) [code = COVID-19 VACCINE (#1)] Future Scheduled Test 2022-10-08 Hepatitis C [facility] 00:58:09 screening (procedure) [code = 173661071] Future Scheduled Test 2022-10-08 [facility] 00:58:09 malignant neoplasm of cervix (procedure) [code = 735975079] Future Scheduled Test 2020-03-21 . [facility] 00:00:00 COVID-19/SARS-Cov-2 [code = . [facility] - COVID-19/SARS-Cov-2 ] Diagnostic Test 2020-01-15 . [facility] - Affirm [facility] Pending 00:00:00 VPIII (BV Panel) [code = . [facility] - Affirm VPIII (BV Panel)] Encounters Start End Encounter Admission Attending Care Care Encounter Source Date/Time Date/Time Type Type Clinicians Facility Department ID 2022-09-11 Outpatient [facility] [id number] [place] 13:44:[address] [place] [address] 2021-06-25 Emergency [facility] [id number] [facility]25 Emergency [facility] [id number] Univers 01:14:06 [facility] 2021-06-23 Outpatient P [facility] JOHN [id number] Univers 12:39:51 ity [facility] 2021-06-23 Outpatient P [facility] JOHN [id number] Univers 07:27:22 ity of [facility] 2021-06-23 Outpatient P [facility] JOHN [id number] Univers 07:22:37 ity of [facility] 2021-06-23 Emergency [facility] [id number] Univers 06:14:22 ity of [facility] 2021-06-23 Emergency [facility] [id number] Univers 06:13:02 ity of [facility] 2021-06-23 Emergency [facility] [id number] Univers 00:55:53 ity [facility] 2021-06-22 Emergency [facility] [id number] [facility] 2023-07-04 2023-07-04 Outpatient R TRACE [facility] [id number] Univers 10:45:00 10:45:00 [facility] 2023-06-27 2023-06-27 Outpatient R TRACE [facility] [id number] Univers 09:15:00 09:15:00 [facility] 2023-06-13 2023-06-13 Orders Doctor LOUISE [id number] Univers 00:00:00 00:00:00 Only Unassigned, ADRIANO [id number] ity of [place] [facility] [id number] Wilbert [id number] [place] [address] Branch 2023-06-12 2023-06-12 Outpatient R ASHLEY [facility] [id number] Univers 15:45:00 15:45:00 CHRISTIAN RAMIREZ [facility] 2023-06-12 2023-06-12 [facility] [id number] Univers 15:00:00 15:30:00 Visit Christian DOS SANTOS [id number] i ty of WOMEN'S [id number] [facility] [id number] [facility] 188 Branch 2023-06-12 2023-06-12 Outpatient R ASHLEY [facility] [id number] Univers 15:00:00 15:00:00 CHRISTIAN RAMIREZ ity of [facility] 2023-06-01 2023-06-01 Patient Doctor LOUISE [id number] Univers 00:00:00 00:00:00 Secure Msg Unassigned, ADRIANO [id number] ity of [place] [facility] [id number] Wilbert as [id number] [facility] [address] [place] 2023-05-30 2023-05-30 Outpatient R OLMAN SHETH [facility] [id number] Univers 10:24:20 23:59:00 ity of [facility] 2023-05-30 2023-05-30 Hospital [facility] [id number] Univers 09:30:00 23:59:00 Encounter Leo GRACE [id number] [id number] [id number] [facility] [address] [place] 2023-05-28 2023-05-28 Telephone Meryl [facility] [id number] Univers 00:00:00 00:00:00 Cam [place] [id number] i [id number] [id number] Wa dical NAL 134 [facility] 2023-05-27 2023-05-27 [facility] [id number] Univers 00:00:00 00:00:00 Lauren GRACE [id number] i [id number] [id number] Wa dical NAL 044 [facility] 2023-05-24 2023-05-24 Case Meryl [facility] [id number] Univers 00:00:00 00:00:00 Management Cam [place] [id number] [id number] [id number] Wa dical NAL 134 [facility] 2023-05-24 2023-05-24 Telephone Sheth, [facility] [id number] Univers 00:00:00 00:00:00 Leo GRACE [id number] [id number] [id number] Wa dical NAL 134 [facility] 2023-05-23 2023-05-23 Patient Doctor [facility] [id number] Univers 00:00:00 00:00:00 Secure Msg Unassigned, LEVON [id number] it[place] [facility] [id number] [facility] [id number] [address] 2023-05-21 2023-05-21 Leach Runner 2, Adc Lab [facility] [id number] Univers 14:00:00 14:15:00 Visit Olman Sheth Leo GRACE [id number] [facility] [facility] [id number] [id number] [facility] 353 [facility] 2023-05-21 2023-05-21 Outpatient R OLMAN SHETH [facility] [id number] Univers 14:00:00 14:00:00 ity of [facility] 2023-05-21 2023-05-21 Office Olman Sheth [facility] [id number] Univers 10:00:00 11:08:39 Visit Leo GRACE [id number] i ty [facility] [id number] [id number] Wa dic[address] 2023-05-19 2023-05-19 Emergency X AUFDERHEIDE [facility] ERT [id number] Univers 05:08:00 11:08:00 , BO itluiza of [facility] 2023-05-19 2023-05-19 Emergency Rajinder Chávez [facility] [id number]. [id number] Univers 05:08:00 11:08:00 Bo Peguero 350.1 .13.10 [facility] [facility] [id number] [id number] [place] [address] [place] 2023-05-11 2023-05-11 Emergency X FARHEENBISI Blanchard [facility] ERT 1 [id number] Univers 15:01:00 17:01:00 BISI ZHONG itluiza [place] [facility] 2023-05-11 2023-05-11 Emergency [facility] 1.2.348.175 [id number] Univers 15:01:00 17:01:00 Bisi [place] 350.1.13.10 ity of [place] 4.2.7.2.686 [facility] [phone] [address] 2023-01-01 2023-01-01 Outpatient R REYES [facility] [id number] Univers 13:00:00 13:58:59 [facility] 2023-01-01 2023-01-01 Office [facility] 1.2.840.114 [id number] Univers 13:00:00 13:58:59 Visit [facility] 350.1.13.10 it y of [place] 4.2.7.2.686 Wilbert as ASIM?BLEA [phone] Wa sherita BARROS [address] MEDICAL OFFICE [facility] 2023-01-01 2023-01-01 Orders Doctor LOUISE 1.2.840.114 [id number] Univers 00:00:00 00:00:00 Only Unassigned, ADRIANO 350.1.13.10 ity of [place] [facility] 4.2.7.2.686 Wilbert as [phone] [facility] [address] 2022-12-25 2022-12-25 [facility] Mic [facility] 1.2.840.114 [id number] Univers 10:29:33 23:59:00 Encounter [facility] 350.1.13.10 ity of [place] 4.2.7.2.686 Wilbert as ASIM?BLEA [phone] Wa sherita BARROS 808 [facility] OFFICE [facility] 2022-12-25 2022-12-25 Outpatient R MIC [facility] [id number] Univers 10:29:32 23:59:00 [facility] 2022-12-25 2022-12-25 Hospital Mic [facility] 1.2.840.114 [id number] Univers 10:29:32 23:59:00 Encounter Madhuri [facility] 350.1.13.10 ity of [place] 4.2.7.2.686 Wilbert as ASIM?BLEA [phone] Wa dical [facility] [address] MEDICAL OFFICE BUILDING 2022-12-25 2022-12-25 Urgent Madhuri Haile [facility] 1.2.840.114 1 [id number] Univers 10:00:00 11:05:30 Care Unknown, Attending [facility] 350.1.13.10 [facility] 4.2.7.2.686 Wilbert as ASIM?BLEA [phone] Wa dical [facility] [address] MEDICAL OFFICE BUILDING 2022-12-25 2022-12-25 Orders Doctor LOUISE 1.2.840.114 [id number] Univers 00:00:00 00:00:00 Only Unassigned, ADRIANO 350.1.13.10 ity of [place] [facility] 4.2.7.2.686 Wilbert as [phone] [address] 2022-09-04 2022-09-06 Emergency [facility] 1.2.840.1 1 [id number] Methodi 14:16:00 13:56:00 Ирина Humphreys [address]21.1.[address] Micheal Fay 3.430.2.7 Hospita .3.269400 l .8 2022-09-04 2022-09-[address] [facility] [id number] 8024 [place] 00:00:00 00:00:[address] MICHEAL [address] 2022-09-05 2022-09-05 Anesthesia Isra Sky 1.2.840.1 104 [id number] Methodi 16:47:00 18:12:00 Event Teresa Blas 60499.1.[address] 3.430.2.7 Hospit a .3.826669 l .8 2022-09-05 2022-09-05 Anesthesia Isra Sky 1.2.840.1 104 [id number] Methodi 16:47:00 18:12:00 Event Teresa Blas 70767.1.[address] 3.430.2.7 Hospit a .3.407999 l .8 2022-09-05 2022-09-05 Surgery Omar Priest 1.2.840.1 [id number] Methodi 15:50:00 17:35:[address] 3.430.2.7 Hospit a .3.597327 l .8 2022-09-05 2022-09-05 Surgery Omar Priest 1.2.840.1 [id number] 21 [id number] Methodi 15:50:00 17:35:[address] 3.430.2.7 Hospit a .3.733964 l .8 2022-07-07 2022-07-07 [facility] [id number] Univers 11:20:00 11:29:43 LAUREN leija [facility] 2022-07-07 2022-07-07 Urgent Lauren Stovall [facility] 1.2.840.11 4 [id number] Univers 11:20:00 11:29:43 Care [facility] 350.1.13.10 ity of [place] 4.2.7.2.686 Wilbert as ASIM?BLEA [phone] [address] MEDICAL OFFICE [facility] 2022-02-21 2022-02-21 Urgent [facility] 1.2.840.114 [id number] Univers 13:20:00 13:40:[address] [facility] 350.1.13.10 i ty of [place] 4.2.7.2.686 Wilbert as ASIM?BLEA [phone] [address] OFFICE [facility] 2022-02-21 2022-02-21 Outpatient R JONO [facility] [id number] Univers 13:20:00 13:20:00 CHARO leija o f [facility] 2021-12-26 2021-12-26 Outpatient R MIC [facility] [id number] Univers 15:40:00 15:56:22 MADHURI ity of [facility] 2021-12-26 2021-12-26 Vanesa [facility] 1.2.840.114 [id number] Univers 15:40:00 15:56:22 Care [facility] 350.1.13.10 it y of [place] 4.2.7.2.686 Wilbert as ASIM?BLEA [id number] [address] MEDICAL OFFICE [facility] 2021-12-26 2021-12-26 Orders Doctor LOUISE 1.2.840.114 [id number] Univers 00:00:00 00:00:00 Only Unassigned, ADRIANO 350.1.13.10 ity of [place] [facility] 4.2.7.2.686 Wilbert as [phone] [address] 2021-04-05 2021-04-05 Case [facility] 1.2.103.008 [id number] Univers 00:00:00 00:00:00 Management Liv Diazton 350.1.13.10 ity of [place].2.[place] [phone] [address] 2021-04-04 2021-04-04 Office [facility] 1.2.500.844 [id number] 7614 Univers 14:52:07 15:38:17 Visit Liv Diazton 350.1.13.10 i ty of [place] 4.2.7.2.686 [place] [id number] [address] 2021-04-04 2021-04-04 Outpatient [facility] [id number] Univers 14:30:00 14:30:00 LIV leija of [facility] 2021-04-04 2021-04-04 Orders Doctor LOUISE 1.2.840.114 [id number] Univers 00:00:00 00:00:00 Only Unassigned, ADRIANO 350.1.13.10 ity of [place] [facility] 4.2.7.2.686 Wilbert as [phone] [address] 2021-02-13 2021-02-13 Urgent Provider, [facility] 1.2.243.928 [id number] 10:32:50 10:52:50 Care [facility] 350.1.13.10 Care [place] 4.2.7.2.686 Professio [phone] [place] [address] Office [address] One 2021-02-13 2021-02-13 Urgent Provider, [facility] 1.2.840.114 [id number] Univers 10:32:50 10:52:50 Care Anedoug, [facility] 350.1.13.10 ity of [place] 4.2.7.2.686 Wilbert as Professio [phone] Wa dical [address] Office Building One 2021-02-13 2021-02-13 Outpatient R SHAWN [facility] [id number] Univers 10:40:00 10:40:00 [facility] 2020-12-26 2020-12-26 Outpatient R OLMAN SHETH [facility] [id number] Univers 09:30:00 09:30:00 ity [facility] 2020-12-10 2020-12-10 Urgent Provider, [facility] 1.2.404.497 [id number] 09:39:01 10:40:28 Care [facility] 350.1.13.10 Care [place] 4.2.7.2.686 Professio [phone] [place] [address] Office Building One 2020-12-10 2020-12-10 Urgent Provider, [facility] 1.2.840.114 [id number] Univers 09:39:01 10:40:28 Care Green, [facility] 350.1.13.10 ity of [place] 4.2.7.2.686 Wilbert as Professio [phone] Wa dical [address] Office Building One 2020-12-10 2020-12-10 Outpatient R ALESSANDRO [facility] [id number] Univers 09:40:00 09:40:00 LEATHA ity [facility] 2020-12-09 2020-12-09 Laboratory Lab, [facility] 1.2.840.114 [id number] 15:03:11 15:23:11 Only Fam Pob I Health 350.1.13.10 [place] 4.2.7.2.686 Professio [phone] nal [address] [facility] One 2020-12-09 2020-12-09 Laboratory Lab, [facility] Fam Pob I [facility] 1.2. 840.114 [id number] Univers 15:03:11 15:23:11 Only Fransisco [facility] 350.1.13.10 ity of [place] 4.2.7.2.686 Wilbert as Professio [phone] [facility] 044 [facility] One 2020-12-09 2020-12-09 Outpatient R TALHA, [facility] [id number] Univers 11:00:00 11:00:00 GADIEL ity [facility] 2020-12-01 2020-12-01 Telephone Olman Sheth [facility] 1.2.840.114 [id number] Univers 00:00:00 00:00:00 Leo Grace 350.1.13.10 i ty of [place] [phone] Wa dical [facility] 134 [facility] 2020-12-01 2020-12-01 Telephone [facility] 1.2.840.114 [id number] Univers 00:00:00 00:00:00 Jose R Grace 350.1.13.10 ity of [place].2.7.2.[place] [phone] [facility] 092 [facility] 2020-11-29 2020-11-29 Office [facility] 1.2.840.114 [id number] 14:53:58 15:44:52 Visit Jose R Grace 350.1.13.10 [place] 4.2.7.2.[address] Professio [phone] [address] 2020-11-29 2020-11-29 Office [facility] 1.2.840.114 [id number] Univers 14:53:58 15:44:52 Visit Jose R Grace 350.1.13.10 ity of [place].2.7.2.686 [place] [phone] Wa dical nal 092 [facility] 2020-11-29 2020-11-29 Outpatient R HALLIEJOSE R Shukla [facility] [id number] Univers 15:00:00 15:00:00 JOSE [facility] 2020-11-21 2020-11-21 Office [facility] 1.2.140.359 [id number] Univers 08:29:06 10:03:28 Visit Leo Grace 350.1.13.10 i ty of [place] 4.[place].7.2.[place] [phone] Wa dical nal 134 [facility] 2020-11-21 2020-11-21 Outpatient R MERYL OLMAN [facility] [id number] Univers 08:30:00 08:30:00 ity of [facility] 2020-11-21 2020-11-21 Letter Meryl [facility] 1.2.280.274 [id number] Univers 00:00:00 00:00:00 (Out) Leo Grace 350.1.13.10 i ty of [place].7.2.[place] [phone] Wa dical nal 134 [facility] 2020-11-21 2020-11-21 Orders Doctor LOUISE 1.2.840.114 [id number] Univers 00:00:00 00:00:00 Only Unassigned, ADRIANO 350.1.13.10 ity of [place] [facility] 4.2.7.2.686 Wilbert as [phone] [facility] [address] [place] 2020-11-15 2020-11-15 Patient [facility] 1.2.840.114 [id number] Univers 00:00:00 00:00:00 Outreach Kvng RODRIGUEZ 350.1.13.10 i ty of [facility] 4.2.7.2.686 [place] [phone] Wa dical [address] 2020-11-09 2020-11-09 Emergency [facility] 1.2.840.114 [id number] Univers 12:59:00 14:50:00 Ami Grace 350.1.13.10 ity of [place] 4.2.7.2.686 [facility] [phone] [facility] [address] [place] 2020-11-09 2020-11-09 Telephone Nurse, Enio [facility] 1.2.840.114 [id number] Univers 00:00:00 00:00:00 Urgent Care Health 350.1.13.10 ity of Surgical 4.2.7.2.686 Wil[place] as Specialti [phone] Wa dical es 370 [facility] 2020-10-24 2020-10-24 Office Olman Sheth [facility] 1.2.421.546 [id number] Univers 08:55:05 10:04:55 Visit Cam [place] 350.1.13.10 i ty of [place] 4.2.7.2.686 [facility] s Professio [phone] Wa dical nal 134 [facility] 2020-10-24 2020-10-24 Outpatient R OLMAN SHETH [facility] [id number] Univers 09:00:00 09:00:00 ity of [facility] 2020-10-22 2020-10-22 Urgent Provider, [facility] 1.2.840.114 [id number] Univers 12:05:47 13:21:43 Care [facility] 350.1.13.10 ity of [place] 4.2.7.2.686 Wilbert as Professio [phone] Wa dicne nal [address] [place] Office [address] One 2020-10-22 2020-10-22 Outpatient Cr GA [facility] [id number] Univers 12:00:00 12:00:00 LEATHA ity of [facility] 2020-10-19 2020-10-19 Emergency [facility] 1.2.294.846 [id number] Univers 19:31:00 22:26:00 Garrett Medrano [place] 350.1.13.10 ity of [place] 4.2.7.2.686 [facility] [phone] [address] 2020-10-19 2020-10-19 Telephone Olman Sheth [facility] 1.2.840.114 [id number] Univers 00:00:00 00:00:00 Leo [place] 350.1.13.10 i ty of [place] 4.2.7.2.686 [place] [phone] Wa dical nal [address] 2020-08-20 2020-08-20 Outpatient R ALESSANDRO [facility] [id number] Univers 19:00:00 19:00:00 LEATHA ity [facility] 2020-07-27 2020-07-27 Appointsumaya HEAD [facility] Obstetrics [id number] [place] 13:30:00 13:30:00 t; Mesfin TAVERAS and Von HEAD, Gynecology Amira Johnson M.D. Clinic 2020-07-11 2020-07-11 Appointsumaya [facility] [id number] [place] 15:00:00 15:00:00 t; Mesfin VELASCO ans ASHA, M.D. 2020-07-06 2020-07-06 Appointsumaya CAMARILLO [facility] Obstetrics [id number] [place] 13:00:00 13:00:00 t; Garett FLORES M.D. Gynecology Amira Du M.D. Clinic 2020-07-05 2020-07-05 Appointsumaya [facility] [id number] [place] 09:00:00 09:00:00 t; Mesfin VELASCO ans ASHA, M.D. 2020-07-04 2020-07-04 Appointmen VTIA, [facility] [id number] [place] 15:30:00 15:30:00 t; ADULT, HEMOPHILIA Hemophilia Physici HEMOPHILIA and ans Thrombophil ia Center [facility] 2020-07-01 2020-07-01 Urgent Provider, [facility] 1.2.840.114 [id number] Univers 18:18:44 18:38:44 Louise Giang [facility] 350.1.13.10 ity of [place] 4.2.7.2.686 [place] as Professio [phone] Wa dical nal [address] Office Building One 2020-07-01 2020-07-01 Outpatient R THI [facility] [id number] Univers 18:20:00 18:20:00 LOUISE ity [facility] 2020-06-29 2020-06-29 Appointmen AMY BERNAL Women's [id number] [place] 14:30:00 14:30:00 t; MATTHEW BERNAL Center - Sonya CASTRO M.D. [facility] 2020-06-06 2020-06-06 Urgent Provider, [facility] 1.2.840.114 [id number] Univers 10:43:16 11:42:30 Care Yael [facility] 350.1.13.10 ity of [place] 4.2.7.2.686 Wilbert as Professio [phone] [address] Office Building [facility] 2020-06-06 2020-06-06 Outpatient R [facility] [id number] Univers 10:40:00 10:40:00 ity [facility] 2020-06-01 2020-06-01 Appointmen AMY SILVERIO [facility] [id number] UT 10:45:00 10:45:00 t; JJ SILVERIO Phy sici GREGORY, M.D. [facility] Mesfin 2020-05-27 2020-05-27 [facility] 1.2.840.114 [id number] Univers 11:49:39 23:59:00 Encounter Fransisco Cecelia 350.1.13.10 ity of [place] 4.2.7.2.686 [facility] [phone] [address] 2020-05-27 2020-05-27 Urgent Provider, [facility] 1.2.840.114 [id number] Univers 10:15:33 10:35:33 Care Yael [facility] 350.1.13.10 ity of [place] 4.2.7.2.686 Wilbert as Professio [phone] Wa dic[address] Office Building One 2020-05-27 2020-05-27 Outpatient R [facility] [id number] Univers 10:20:00 10:20:00 ity [facility] 2020-05-27 2020-05-27 Telephone Provider, [facility] 1.2.840.114 [id number] Univers 00:00:00 00:00:00 Ang [facility] 350.1.13.10 ity of Care [place] 4.2.7.2.686 Wilbert as Professio [phone] Wa dical nal [address] Building One 2020-05-13 2020-05-13 Telephone [facility] 1.2.187.329 [id number] Univers 00:00:00 00:00:00 Julissa A Health 350.1.13.10 ity of [place] 4.2.7.2.686 Wilbert as Professio [phone] Wa dical nal [address] Office Building One 2020-05-11 2020-05-11 Laboratory Lab, Adc Fam Pob I [facility] 1.. 840.114 [id number] Univers 16:52:53 17:12:53 Only Shawn, [facility] 350.1.13.10 ity of [place] 4.2.7.2.686 Wilbert as Professio [phone] [facility] nal [address] [place] [address] Office [facility] One 2020-05-11 2020-05-11 Outpatient R [facility] [id number] Univers 17:00:00 17:00:00 ity of [facility] 2020-04-29 2020-04-29 Appointmen MYA C/S [facility] UTP [id number] [place] 10:00:00 10:00:00 t; Claude ROQUE C/S ans 2020-04-27 2020-04-[address] UTP [id number] [place] 13:30:00 13:30:00 t; Mando HERNANDEZ i Mesfin [place] ans Mesfin HERNANDEZ 2020-04-25 2020-04-25 Outpatient Raju_P MMG MMG [id number] [place] 10:39:00 10:39:00 0831 [facility] 2020-04-14 2020-04-14 Emergency E PATY, [facility] [id number] [facility] 22:58:00 22:58:00 RALPH 2020-04-09 2020-04-09 [facility] Olman Sheth [facility] ..840.114 [id number] Univers 09:52:00 12:23:00 Encounter Cam Cecelia 350.1.13.10 ity of [place] 4.2.7.2.686 [facility] [phone] [facility] [address] 2020-03-31 2020-03-31 Appointmen AMY SOLIS Obstetrics [id number] [place] 14:30:00 14:30:00 t; Sindhu STEWART i, D.O. Gynecology ans Amira [facility]EWART.[facility] 2020-03-31 2020-03-31 Appointmen MEDICAL MANAGER, [facility] UTP [id number] [place] 13:00:00 13:00:00 t; MEDICAL MANAGER, ROOM3 Phy sici ROOM3 [facility] 2020-03-27 2020-03-28 Emergency E DAVID, [facility] [id number] [facility] 21:39:00 01:16:00 SUNEET 2020-03-24 2020-03-24 Appointmen MEDICAL MANAGER, [facility] [id number] [place] 15:15:00 15:15:00 t; MEDICAL MANAGER, ROOM2 Phy sici ROOM2 [facility] 2020-03-24 2020-03-24 AppointReji Casillas [facility] Obstetrics [id number] [place] 13:30:00 13:30:00 t; Mesfin COPELAND and Sonya Mendoza M.D. Gynecology ans [facility] 2020-03-11 2020-03-11 [facility] 1.2.840.114 [id number] [facility] 13:19:00 16:40:00 Encounter Joey Grace 350.1.13.10 ity of [place] 4.2.7.2.686 [facility] [phone] [facility] [address] 2020-03-11 2020-03-11 Orders Doctor LOUISE 1.2.840.114 [id number] Univers 00:00:00 00:00:00 Only Unassigned, ADRIANO 350.1.13.10 ity of [facility] 4.2.7.2.[address] [place] [address] [phone] [facility] [address] 2020-03-09 2020-03-09 AppointAMY Marroquin UTP [id number] [place] 11:30:00 11:30:00 t; Claude VALE M.D. ans Mesfin VALE 2020-03-06 2020-03-06 Emergency Hemanth, [facility] 1.2.070.351 [id number] Univers 19:46:10 22:17:00 Mona Grace 350.1.13.10 i ty of [place] 4.2.7.2.686 [facility] [phone] [address] 2020-03-06 2020-03-06 Emergency Hemanth, [facility] 1.2.182.099 [id number] Univers 10:40:51 12:09:00 Mona Grace 350.1.13.10 i ty of [place] 4.2.7.2.686 [facility] [phone] [address] 2020-02-18 2020-02-18 Appointmen STEVENSON, [facility] Obstetrics [id number] [place] 15:00:00 15:00:00 t; Mesfin STONE and Von GAMINO, Gynecology ans Amira STONE M.D. [facility] 2020-02-12 2020-02-12 Appointmen MEDICAL MANAGER, [facility] Obstetrics [id number] [place] 13:00:00 13:00:00 t; MEDICAL MANAGER, ROOM3 and Sonya zurita ROOM3 Gynecology ans [facility] 2020-02-07 2020-02-07 Emergency Arnaud, [facility] 1.2.234.039 [id number] Univers 21:34:00 22:09:00 Garrett Grace 350.1.13.10 ity of [place] 4.2.7.2.686 [facility] [phone] [address] 2020-02-07 2020-02-07 Orders Doctor LOUISE 1.2.840.114 [id number] Univers 00:00:00 00:00:00 Only Unassigned, ADRIANO 350.1.13.10 [facility] [place] [facility] 4.2.7.2.686 Wilbert [phone] [address] 2020-02-04 2020-02-04 Appointmen AMY ECKERT [facility] [id number] [place] 13:30:00 13:30:00 t; ELIF ECKERT, Mesfin Dahl M.D. 2020-01-21 2020-01-21 Appointmen MALLY, [facility] [id number] [place] 16:00:00 16:00:00 t; WALK-INS Physi ci MALLY, [facility] WALK-INS 2020-01-21 2020-01-21 Appointsumaya WILSON, [facility] Obstetrics [id number] [place] 15:30:00 15:30:00 t; FITZ, and Physic i Nick WILSONO. Gynecology ans Amira BYRNES D.O. Clinic 2020-01-15 2020-01-15 Appointmen MEDICAL MANAGER, [facility] [id number] [place] 13:00:00 13:00:00 t; MEDICAL MANAGER, ROOM4 Phluiza sici ROOM4 [facility] 2020-01-14 2020-01-14 Appointsumaya ESPOSITO, [facility] Obstetrics [id number] [place] 13:45:00 13:45:00 t; Mesfin LIN and Ph ewelina ESPOSITO, Gynecology [facility] Amira LIN M.D. Clinic 2020-01-13 2020-01-13 Appointsumaya TEJADA, [facility] Psychiatry [id number] [place] 08:45:00 08:45:00 t; YOANNA, Outpatient P jhonny TEJADA M.D. [facility] CHINA TURK M.D. 2020-01-05 2020-01-05 Outpatient P [facility] [id number] Univers 10:30:00 10:30:00 ity [facility] 2019-12-30 2019-12-30 Outpatient P [facility] [id number] Univers 11:30:00 11:30:00 ity [facility] 2019-12-29 2019-12-29 Maged Barker [facility] ..106.869 [id number] Univers 00:00:00 00:00:00 Management Bo Y HEALTH 350.1.13.10 it[place] of CL[place] 4..[place] [phone] [address] 2019-12-29 2019-12-29 Shahid Page [facility] 1..840.11 4 [id number] Univers 00:00:00 00:00:00 W Y HEALTH 350.1.13.10 i ty of CLINICS 4.2.7.2.[place] [id number] [address] 2019-12-28 2019-12-28 Appointmen ANGELO, [facility] UTP [id number] [place] 13:30:00 13:30:00 t; Claude GREENBERG M.D. ans Mesfin GREENBERG 2019-12-28 2019-12-28 Appointmen MEDICAL MANAGER, [facility] UTP [id number] [place] 10:45:00 10:45:00 t; MEDICAL MANAGER, ROOM3 Phy sici ROOM3 [facility] 2019-12-28 2019-12-28 Appointmen OB/MD, [facility] UTP [id number] [place] 10:00:00 10:00:00 t; OB/MD, Phys ici Formerly [facility], 1928–1983 2019-12-24 2019-12-24 Outpatient R EMILIE [facility] [id number] Univers 11:30:00 11:30:00 ANAI it y of SJUAN MANUEL [facility] 2019-12-24 2019-12-24 Telephone Shahid Arredondo ..840.11 4 [id number] Univers 00:00:00 00:00:00 [facility] 350.1.13.10 i ty of [place] [id number] [address] 2019-12-22 2019-12-22 Abstract Linsey [facility] 1.2.840.114 [id number] Univers 00:00:00 00:00:00 Fernandez Panchal MEDICAL MANAGER 350.1.13.10 ity of [facility] 4.2.7.2.686 Wilbert as MATERNAL [id number] Med ical & CHILD 107 [facility] 2019-12-19 2019-12-19 Refill Olman Sheth [facility] 1.2.466.896 [id number] Univers 00:00:00 00:00:00 Leo Pills[place] 350.1.13.10 i [place] Profess[place] [phone] Wa dical [facility] 134 [facility] 2019-12-18 2019-12-18 Leach Runner Ultrasound, Adc [facility] 1.2 .840.114 [id number] Univers 13:54:31 14:54:31 Visit Carina Meehan [place] 350.1.13.10 [place] [phone] Wa dical nal 134 [facility] 2019-12-18 2019-12-18 Outpatient P [facility] [id number] Univers 14:00:00 14:00:00 ity of [facility] 2019-12-17 2019-12-17 Refill Olman Sheth [facility] ..[id number] [id number] Univers 00:00:00 00:00:00 Cam Pillsbury 350.1.13.10 i [place] [id number] Wa dical nal [address] [place] [address] 2019-12-14 2019-12-14 Emergency [facility] ..[id number] Univers 18:22:18 21:48:00 Garrett S Pills[place] 350.1.13.10 ity of [place] [phone] [address] 2019-12-09 2019-12-09 Outpatient P PHAN [facility] [id number] Univers 13:00:00 13:00:00 KOUTRDARIELAI it y of S, ZAMBRANO [facility] 2019-12-09 2019-12-09 Appointsumaya TEJADA, [facility] [id number] [place] 10:30:00 10:30:00 t; YOANNA, Outpatient P jhonny TEJADA M.D. Tabitha - CHINA Browne M.D. 2019-12-08 2019-12-08 Telephone Olman Sheth [facility] ..840.114 [id number] Univers 00:00:00 00:00:00 Cam Pillsbury 350.1.13.10 i ty of [place] [phone] [place] dic[address] 2019-12-04 2019-12-04 Outpatient R [facility] [id number] Univers 11:00:00 11:00:00 ity of [facility] 2019-12-04 2019-12-04 Telemedici Fellow, [facility] U NIVERSIT .840.114 [id number] Univers 07:16:52 07:46:52 ne Visit Justice Gray [facility] 350.1.13.10 ity of Stan Ramos [facility] 4.2.7.2.686 [place] [phone] [address] 2019-12-04 2019-12-04 Abstract Linsey, [facility] 1.2.840.114 [id number] Univers 00:00:00 00:00:00 Fernandez Panchal MEDICAL MANAGER 350.1.13.10 ity of [facility] 4.2.7.2.686 [place] as MATERNAL [phone] Med ical & CHILD 107 [facility] 2019-12-02 2019-12-02 Outpatient P GATITO [facility] [id number] Univers 11:15:00 11:15:00 KEYA ity [facility] 2019-12-02 2019-12-02 Leach Runner Ultrasound, [facility] 1.2 .840.114 [id number] Univers 10:11:12 10:41:12 Visit Juan Manuel Whitten MEDICAL MANAGER 350.1. 13.10 ity [facility] 4.2.7.2.686 [place] as MATERNAL [phone] Med ical & CHILD 369 [facility] 2019-12-02 2019-12-02 Telemedici Consults, [facility] Pinky Pn Geneti cs [facility] 1.2.840.114 [id number] Univers 07:48:49 08:03:49 ne Visit Keya Mederos MEDICAL MANAGER 350.1.13. 10 ity [facility] 4.2.7.2.686 [place] as MATERNAL [phone] Med ical & CHILD 109 [facility] 2019-11-30 2019-11-30 AppointAMY Turner [facility]etric[facility] [id number] [place] 14:00:00 14:00:00 t; Mesfin AC and Ph ysici BLU, Gynecology Amira May M.D. [facility] 2019-11-27 2019-11-27 Emergency X SUMAN SUN [facility] ERT [id number] Univers 09:28:09 10:48:00 ity of [facility] 2019-11-27 2019-11-27 Emergency Suman Sun [facility] 1.2.840.114 [id number] Univers 09:28:09 10:48:00 T Pillsbury 350.1.13.10 i ty of [place] [phone] [facility] [address] [place] [address] 2019-11-24 2019-11-24 Telephone Olman Sheth [facility] 1.2.840.114 [id number] Univers 00:00:00 00:00:00 Cam Pillsbury 350.1.13.10 i ty [place] [phone] [address] 2019-11-23 2019-11-23 Telephone Olman Sheth [facility] 1.2.840.114 [id number] Univers 00:00:00 00:00:00 Cam Pillsbury 350.1.13.10 i ty [place] [phone] [facility] [address] [facility] 2019-11-19 2019-11-19 Outpatient R LINSEY, [facility] [id number] Univers 09:30:00 09:30:00 FERNANDEZ ity o f [facility] 2019-11-18 2019-11-18 Telephone Olman Sheth [facility] 1.2.840.114 [id number] Univers 00:00:00 00:00:00 Cam Pillsbury 350.1.13.10 i ty [place] [phone] [facility] 134 [facility] 2019-11-16 2019-11-16 Leach Runner Joel, Bebe Lab Main [facility] 1.2.8 40.114 [id number] Univers 09:31:47 09:46:47 Visit Olman Sheth 350.1.13.10 ity of [place] [phone] [facility] 2019-11-16 2019-11-16 Initial Meryl [facility] 1.2.414.743 [id number] Univers 07:53:29 09:11:59 Cam Pillsbury 350.1.13.10 ity of Visit [place] [phone] [place] dical [address] 2019-11-16 2019-11-16 Outpatient R DEYA SHETHEN [facility] [id number] Univers 08:00:00 08:00:00 ity of [facility] 2019-11-16 2019-11-16 Orders Doctor LOUISE 1.2.840.114 [id number] Univers 00:00:00 00:00:00 Only Unassigned, ADRIANO 350.1.13.10 ity of [place] [facility] 4.2.7.2.686 [place] as [phone] [address] 2019-11-12 2019-11-12 Telephone [facility] 1.2.840.114 [id number] Univers 00:00:00 00:00:00 Fernandez Panchal MEDICAL MANAGER 350.1.13.10 ity of [facility] 4.2.7.2.686 [place] as MATERNAL [phone] Med ical & CHILD [address] [place] [address] 2019-10-30 2019-10-30 Telephone [facility] 1.2.840.114 [id number] Univers 00:00:00 00:00:00 Gold Cochran MEDICAL MANAGER 350.1.13.10 it y of [facility] 4.2.7.2.686 [place] MATERNAL [phone] Med ical & CHILD [address] [place] [address] 2019-10-28 2019-10-28 Orders Doctor LOUISE 1.2.840.114 [id number] Univers 00:00:00 00:00:00 Only Unassigned, ADRIANO 350.1.13.10 ity of [place] [facility] 4.2.7.2.686 [place] as [phone] [address] 2019-10-22 2019-10-22 Routine [facility] 1.2.563.999 [id number] Univers 12:58:53 13:21:27 Gold Cochran MEDICAL MANAGER 350.1.13.10 i ty of Visit [facility] 4.2.7.2.686 [place] MATERNAL [phone] Med ical & CHILD 107 [facility] 2019-10-22 2019-10-22 Outpatient R ORLANDO [facility] [id number] Univers 13:00:00 13:00:00 GOLD leija [facility] 2019-10-07 2019-10-07 [facility]phone [facility] 1.2.840.114 [id number] Univers 00:00:00 00:00:00 Gold Dimas MEDICAL MANAGER 350.1.13.10 it y of [facility] 4.2.7.2.686 [place] as MATERNAL [phone] [facility] & CHILD [address] [place] [address] 2019-10-06 2019-10-06 Abstract [facility] 1.2.840.114 [id number] Univers 00:00:00 00:00:00 Fernandez C MEDICAL MANAGER 350.1.13.10 ity of [facility] 4.2.7.2.686 [place] MATERNAL [phone] [facility] & [address] 2019-10-01 2019-10-01 Outpatient R DAYANA [facility] [id number] Univers 10:30:00 11:17:13 TOSHIA leija [facility] 2019-10-01 2019-10-01 Routine Risk, Bkp-Yasxa-Ai/High [facility] 1. 2.840.114 [id number] Univers 10:25:41 11:17:13 Cristeldarren Lynsey MEDICAL MANAGER 350.1.13.1 0 ity of Visit [facility] 4.2.7.2.686 [place] as MATERNAL [phone] [facility] & CHILD [address] [place] [address] 2019-09-25 2019-09-25 Telephone [facility] 1.2.840.114 [id number] Univers 00:00:00 00:00:00 Fernandez C MEDICAL MANAGER 350.1.13.10 ity of [facility] 4.2.7.2.686 [place] as MATERNAL [phone] [facility] & CHILD [address] [place] [address] 2019-09-21 2019-09-21 Telephone Risk, [facility] 1.2.175.263 [id number] Univers 00:00:00 00:00:00 Ang-Rmchp-N MEDICAL MANAGER 350.1.13.10 ity of p/High [facility] 4.2.7.2.686 [place] as MATERNAL [phone] [facility] & CHILD [address] [place] [address] 2019-09-16 2019-09-16 Emergency [place], [facility] 1.2.745.069 [id number] Univers 06:23:27 09:29:00 Mg Diazton 350.1.13.10 i ty of [place] [phone] [address] 2019-09-16 2019-09-16 Orders Doctor LOUISE 1.2.840.114 [id number] Univers 00:00:00 00:00:00 Only Unassigned, ADRIANO 350.1.13.10 ity of [place] [facility] 4.2.7.2.686 [place] as [phone] [address] 2019-09-10 2019-09-10 Leach Runner Lab, [facility] 1.2.840. 114 [id number] Univers 08:27:30 08:37:34 Visit Fernandez Stiles MEDICAL MANAGER 350.1.13. 10 ity of [facility] 4.2.7.2.686 [place] as MATERNAL [phone] [facility] & CHILD [address] [place] [address] 2019-09-10 2019-09-10 Telephone Linsey [facility] 1.2.840.114 [id number] Univers 00:00:00 00:00:00 Fernandez Panchal MEDICAL MANAGER 350.1.13.10 ity of [facility] 4.2.7.2.686 [place] as MATERNAL [phone] [facility] & CHILD [address] [place] [address] 2019-09-09 2019-09-09 Emergency Saxena, [facility] 1.2.019.383 [id number] Univers 14:54:07 16:49:00 Mona Grace 350.1.13.10 i ty of [place] [phone] [address] 2019-09-09 2019-09-09 Nurse LOUISE Rahman 1.2.840.114 [id number] Univers 00:00:00 00:00:00 Triage Elizabeth [place] 350.1.13.10 it y of HOSPITAL 4.2.7.2.686 [place] as [phone] [facility] [address] 2019-09-09 2019-09-09 Orders Doctor LOUISE 1.2.840.114 [id number] Univers 00:00:00 00:00:00 Only Unassigned, ADRIANO 350.1.13.10 ity of [place] [facility] 4.2.7.2.686 [place] as [phone] [facility] [address] 2019-09-04 2019-09-04 Emergency X TWIN, [facility] ERT [id number] Univers 18:41:20 21:40:00 GOPI ity [facility] 2019-09-03 2019-09-03 Initial Akinsideysi, [facility] 1.2.995.952 [id number] Univers 13:41:22 15:43:50 Fernandez Panchal MEDICAL MANAGER 350.1.13.10 ity of Visit [facility] 4.2.7.2.686 [place] as MATERNAL [phone] Med ical & CHILD [address] [place] [address] 2016-09-12 2016-09-12 Outpatient R SHELBIE [facility] [id number] Univers 08:30:00 09:16:27 JAIME howard [facility] 2015-11-03 2015-11-03 Appointmen NOLVIA, AMY Obstetrics [id number] [place] 09:00:00 09:00:00 t; NOLVIA, FELLOW2 and Physic i FELLOW2 Gynecology [facility] Results Test Description Test Time Test Comments Results Result Comments Source POCT URINALYSIS W/O SPECIFIC GRAVITY 2023-05-21 15:39:00 Test Item Value Reference Range Interpretation Comme nts POCT PH U (test code = 3254) 7 mg/dl 5-8 POCT U LEUK EST (test code = 3263) Negative Negative - Negative POCT U NIT (test code = 3262) egative Negative - Negative POCT U PROT (test code = 3259) Negative Negative - Negative POCT U GLU (test code = 3256) Normal Negative - Negative POCT U KETONE (test code = 3258) Negative Negative - Negative POCT U BLD (test code = 3257) Trace Negative - Negative [facility]/O SPECIFIC [id number] 15:39:00 Test Item Value Reference Range Interpretation Comments POCT PH U (test code = 3254) 7 mg/dl 5-8 POCT U LEUK EST (test code = Negative Negative - Negative 3263) POCT U NIT (test code = 3262) egative Negative - Negative POCT U PROT (test code = 3259) Negative Negative - Negative POCT U GLU (test code = 3256) Normal Negative - Negative POCT U KETONE (test code = 3258) Negative Negative - Negative POCT U BLD (test code = 3257) Trace Negative - Negative [facility] [id number] 15:38:00 Test Item Value Reference Range Interpretation Comments POCT PREG (test code = 1605) Negative On board controls acceptable with C Yes Line (test code = 3574) POCT PREG LOT # (test code = 3575) POCT PREG TEST DATE (test code = 3576) [facility] [id number] 15:38:00 Test Item Value Reference Range Interpretation Comments POCT PREG (test code = 1605) Negative On board controls acceptable with C Yes Line (test code = 3574) POCT PREG LOT # (test code = 3575) POCT PREG TEST DATE (test code = 3576) [facility]-[id number] 15:33:48 Test Item Value Reference Interpretation Comments Range D-DIMER (test code = 0.35 See_Comment [Autom ated [id number]) message] The system which generated this result transmitted reference range : <0.41 ?g/mL (FEU). The reference range was not used to interpret this result as normal/abnormal . KISHORE (test code = This test may be KISHORE) used in conjunction with a clinical pretest probability (PTP) assessment model to exclude venous thromboembolism (VTE) in patients suspected of deep venous thrombosis (DVT) and pulmonary embolism (PE) A D-Dimer value less than 0.50 ?g/ml (FEU) has a negative predicative value of 96 to 100% (95% CI)and 97 to 100% (95% CI) as an aid in the diagnosis of deep vein thrombosis (DVT) and pulmonary embolism when there is low or moderate pretest probability of PE or DVT. D-Dimer values are expressed in initial fibrinogen equivalent units (FEU)" The assay results should be used with other information, including the clinical context, in forming a diagnosis. Lab Interpretation Normal (test code = 78268-2) [facility]IB[facility]EN2023-09-24 15:26:46 Test Item Value Reference Range Interpretation Comments Fibrinogen (test code = 5087181799) 393 mg/dL 214-470 Lab Interpretation (test code = Normal 03206-0) [facility]ACT[facility] THRMPLAS [id number] 15:25:51 Test Item Value Reference Range Interpretation Comments APTT Patient (test 28 See_Comment [Automat ed code = 3173-2) message] The system which generated this result transmitted reference range : 23 - 38 Seconds . The reference range was not used to interpr et this result as normal/abnormal . KISHORE (test code = KISHORE) The [facility] patient population mean normal value for aPTT is 30 seconds. Lab Interpretation Normal (test code = 02781-2) [facility] HospitalProthrombin Time / [id number] 15:23:49 Test Item Value Reference Range Interpretation Comments PROTIME PATIENT (test 12.9 See_Comment [Auto mated message] code = 5964-2) The system wh ich generated this result transmitted ref erence range: 12.0 - 1 4.7 Seconds. The re ference range was not u sed to interpret this result as normal/abnor mal. INR (test code = 6301-6) 1.0 Nor mal INR <1.1; Warfarin Therap eutic range 2.0 to 3. 0 or 2.5 to 3.5, dep ending upon the indica tions. Lab Interpretation (test Normal code = 75308-3) [facility]D-[id number] 11:22:37 Test Item Value Reference Interpretation Comments Range D-DIMER (test code = 0.35 See_Comment [Autom ated 3172809123) message] The system which generated this result transmitted reference range : <0.41 ?g/mL (FEU). The reference range was not used to interpret this result as normal/abnormal . KISHORE (test code = This test may be KISHORE) used in conjunction with a clinical pretest probability (PTP) assessment model to exclude venous thromboembolism (VTE) in patients suspected of deep venous thrombosis (DVT) and pulmonary embolism (PE) A D-Dimer value less than 0.50 ?g/ml (FEU) has a negative predicative value of 96 to 100% (95% CI)and 97 to 100% (95% CI) as an aid in the diagnosis of deep vein thrombosis (DVT) and pulmonary embolism when there is low or moderate pretest probability of PE or DVT. D-Dimer values are expressed in initial fibrinogen equivalent units (FEU)" The assay results should be used with other information, including the clinical context, in forming a diagnosis. Lab Interpretation Normal (test code = 00439-3) [facility]IB[facility]EN2023-09-24 11:15:18 Test Item Value Reference Range Interpretation Comments Fibrinogen (test code = 6265705147) 377 mg/dL 214-470 Lab Interpretation (test code = Normal 91953-1) [facility] THRMPLAS [id number] 11:14:37 Test Item Value Reference Range Interpretation Comments APTT Patient (test 27 See_Comment [Automat ed code = 3173-2) message] The system which generated this result transmitted reference range : 23 - 38 Seconds . The reference range was not used to interpr et this result as normal/abnormal . KISHORE (test code = KISHORE) The [facility] patient population mean normal value for aPTT is 30 seconds. Lab Interpretation Normal (test code = 48850-1) [facility] HospitalProthrombin Time / [id number] 11:12:35 Test Item Value Reference Range Interpretation Comments PROTIME PATIENT (test 12.8 See_Comment [Auto mated message] code = 5964-2) The system wh ich generated this result transmitted ref erence range: 12.0 - 1 4.7 Seconds. The re ference range was not u sed to interpret this result as normal/abnor mal. INR (test code = 6301-6) 1.0 Nor mal INR <1.1; Warfarin Therap eutic range 2.0 to 3. 0 or 2.5 to 3.5, dep ending upon the indica tions. Lab Interpretation (test Normal code = 84350-3) [facility] WITH [id number] 11:03:00 Test Item Value Reference Range Interpretation Comments WBC (test code = 19.23 See_Comment H [Automated 6690-2) message] The system which generated this result transmit tessie reference range : 4.30 - 11.10 10*3/?L. The reference range was not used to interpret this result as normal/abnormal . RBC (test code = 4.27 See_Comment [Automated 789-8) message] The system which generated this result transmit tessie reference range : 3.93 - 5.25 10*6/?L. The reference range was not used to interpret this result as normal/abnormal . HGB (test code = 13.7 g/dL 11.6-15.0 718-7) HCT (test code = 38.3 % 35.7-45.2 4544-3) MCV (test code = 89.7 fL 80.6-95.5 787-2) MCH (test code = 32.1 pg 25.9-32.8 785-6) MCHC (test code = 35.8 g/dL 31.6-35.1 H 786-4) RDW-SD (test code = 42.1 fL 39.0-49.9 57301-7) RDW-CV (test code = 12.8 % 12.0-15.5 788-0) PLT (test code = 262 See_Comment [Automated 777-3) message] The system which generated this result transmit tessie reference range : 166 - 358 10*3/ ?L. The reference range was not u sed to interpret th is result as normal/abnormal . MPV (test code = 10.9 fL 9.5-12.9 57861-2) NRBC/100 WBC (test 0.0 See_Comment [Automat ed code = 4564034001) message] The system which generated this result transmit tessie reference range : 0.0 - 10.0 /100 WBCs. The reference range was not used to interpret this result as normal/abnormal . NRBC x10^3 (test code See_Comment [Auto mated = 1870847096) message] The system which generated this result transmit tessie reference range : 10*3/?L. The reference range was not used to interpret this result as normal/abnormal . GRAN MAT (NEUT) % 69.2 % (test code = 770-8) IMM GRAN % (test code 0.50 % = 2472072696) LYMPH % (test code = 17.1 % 736-9) MONO % (test code = 8.8 % 5905-5) EOS % (test code = 3.9 % 713-8) BASO % (test code = 0.5 % 706-2) GRAN MAT x10^3(ANC) 13.30 10*3/uL 1.88-7.09 H (test code = 1970080238) IMM GRAN x10^3 (test 0.10 10*3/uL 0.00-0.06 H code = 0639626214) LYMPH x10^3 (test code 3.28 10*3/uL 1.32-3.29 = 731-0) MONO x10^3 (test code 1.70 10*3/uL 0.33-0.92 H = 742-7) EOS x10^3 (test code = 0.75 10*3/uL 0.03-0.39 H 711-2) BASO x10^3 (test code 0.10 10*3/uL 0.01-0.07 H = 704-7) Lab Interpretation Abnormal (test code = 74163-0) [facility]. METABOLIC PANEL (28533)2023-05-19 10:52:13 Test Item Value Reference Range Interpretation Comments NA (test code = 137 mmol/L 135-145 4675399084) K (test code = 3.9 mmol/L 3.5-5.0 8159828600) CL (test code = 101 mmol/L 98-108 9076645287) CO2 TOTAL (test code 28 mmol/L 23-31 = 8088140670) AGAP (test code = 8 2-16 6411449847) BUN (test code = 17 mg/dL 7-23 7193306467) GLUCOSE (test code = 93 mg/dL 70-110 6243532948) CREATININE (test code 0.69 mg/dL 0.50-1.04 = 5933395668) TOTAL BILI (test code 0.8 mg/dL 0.1-1.1 = 4921635128) CALCIUM (test code = 9.4 mg/dL 8.6-10.6 9463236976) T PROTEIN (test code 7.3 g/dL 6.3-8.2 = 0911651308) ALBUMIN (test code = 4.2 g/dL 3.5-5.0 7613828678) ALK PHOS (test code = 49 U/L 34-122 9011591706) ALTv (test code = 24 U/L 5-35 2-6) AST(SGOT) (test code 30 U/L 13-40 = 3713410285) eGFR (test code = 98.6 mL/min/1.73m2 1234824687) KISHORE (test code = KISHORE) Association of Glomerular Filtration Rate (GFR) and Staging of Kidney Disease* + + +- +| GFR (mL/min/1.73 m2) ?| With Kidney Damage ?| ?Without Kidney Damage+ ------+ ----+ ------+| ?>90 ?| ?Stage one ?| ? Normal ?+ -+ + -+| ?60-89 ?| ?Stage two ?| ? Decreased GFR ? + + +- +| ?30-59 ?| ?Stage three ?| ? Stage three ? + + +- +| ?15-29 ?| ?Stage four ? | ? Stage four ?+ -+ + -+| ?<15 (or dialysis) ? ?| ?Stage five ? | ? Stage five ?+ -+ + -+ *Each stage assumes the associated GFR level [...] or urine or abnormalities in imaging tests). [facility] METABOLIC PANEL (NA, K, CL, CO2, GLUCOSE, BUN, CREATININE, CA)2023-05-11 20:44:25 Test Item Value Reference Range Interpretation Comments NA (test code = 136 mmol/L 135-145 3142374982) K (test code = 4.0 mmol/L 3.5-5.0 9536643418) CL (test code = 102 mmol/L 98-108 3994857267) CO2 TOTAL (test code 29 mmol/L 23-31 = 6657988362) AGAP (test code = 5 2-16 1077347165) BUN (test code = 16 mg/dL 7-23 6794925230) GLUCOSE (test code = 97 mg/dL 70-110 9722077312) CREATININE (test code 0.53 mg/dL 0.50-1.04 = 8441533130) CALCIUM (test code = 9.0 mg/dL 8.6-10.6 0123059060) eGFR (test code = 133.7 mL/min/1.73m2 4317205820) KISHORE (test code = KISHORE) Association of Glomerular Filtration Rate (GFR) and Staging of Kidney Disease* + + +- +| GFR (mL/min/1.73 m2) ?| With Kidney Damage ?| ?Without Kidney Damage+ ------+ ----+ ------+| ?>90 ?| ?Stage one ?| ? Normal ?+ -+ + -+| ?60-89 ?| ?Stage two ?| ? Decreased GFR ? + + +- +| ?30-59 ?| ?Stage three ?| ? Stage three ? + + +- +| ?15-29 ?| ?Stage four ? | ? Stage four ?+ -+ + -+| ?<15 (or dialysis) ? ?| ?Stage five ? | ? Stage five ?+ -+ + -+ *Each stage assumes the associated GFR level [...] or urine or abnormalities in imaging tests). [facility] FUNCTION PANEL (83924) (ALB,T.PRO,BILI T,BU/BC,ALT,AST,ALK PHOS)2023-05-11 20:44:25 Test Item Value Reference Range Interpretation Comments TOTAL BILI (test code = 1037247237) 0.5 mg/dL 0.1-1.1 BILI UNCON (test code = 3634621136) 0.4 mg/dL 0.1-1.1 BILI CONJ (test code = 1922380177) 0.0 mg/dL 0.0-0.3 T PROTEIN (test code = 2152313846) 7.1 g/dL 6.3-8.2 ALBUMIN (test code = 9401254660) 4.1 g/dL 3.5-5.0 ALK PHOS (test code = 0505438838) 45 U/L 34-122 ALTv (test code = 1742-6) 21 U/L 5-35 AST(SGOT) (test code = 4218017084) 23 U/L 13-40 Lab Interpretation (test code = Normal 60189-0) [facility] WITH [id number] 20:31:45 Test Item Value Reference Range Interpretation Comments WBC (test code = 8.32 See_Comment [Automated 7132-2) message] The sy stem which generated this result transmitted reference range : 4.30 - 11.10 10*3/?L. The reference range was not used to interpret this result as normal/abnormal . RBC (test code = 4.26 See_Comment [Automated 535-8) message] The sy stem which generated this result transmitted reference range : 3.93 - 5.25 10*6/?L. The reference range was not used to interpret this result as normal/abnormal . HGB (test code = 13.6 g/dL 11.6-15.0 718-7) HCT (test code = 39.0 % 35.7-45.2 4544-3) MCV (test code = 91.5 fL 80.6-95.5 787-2) MCH (test code = 31.9 pg 25.9-32.8 785-6) MCHC (test code = 34.9 g/dL 31.6-35.1 786-4) RDW-SD (test code = 43.8 fL 39.0-49.9 74279-1) RDW-CV (test code = 13.2 % 12.0-15.5 788-0) PLT (test code = 238 See_Comment [Automated 777-3) message] The sy stem which generated this result transmitted reference range : 166 - 358 10*3/ ?L. The reference r diandra was not used to interpret this result as normal/abnormal . MPV (test code = 10.9 fL 9.5-12.9 09768-5) NRBC/100 WBC (test 0.0 See_Comment [Automat ed code = 6153427696) message] The system which generated this result transmitted reference range : 0.0 - 10.0 /100 WBCs. The refer ence range was not u sed to interpret th is result as normal/abnormal . NRBC x10^3 (test code See_Comment [Auto mated = [id number]) message] The s ystem which generated this result transmitted reference range : 10*3/?L. The reference range was not used to interpret this result as normal/abnormal . GRAN MAT (NEUT) % 60.4 % (test code = 770-8) IMM GRAN % (test code 0.20 % = [id number]) LYMPH % (test code = 24.8 % 736-9) MONO % (test code = 7.9 % 5905-5) EOS % (test code = 6.1 % 713-8) BASO % (test code = 0.6 % 706-2) GRAN MAT x10^3(ANC) 5.02 10*3/uL 1.88-7.09 (test code = [id number]) IMM GRAN x10^3 (test 0.00-0.06 code = 2289008593) LYMPH x10^3 (test code 2.06 10*3/uL 1.32-3.29 = 731-0) MONO x10^3 (test code 0.66 10*3/uL 0.33-0.92 = 742-7) EOS x10^3 (test code = 0.51 10*3/uL 0.03-0.39 H 711-2) BASO x10^3 (test code 0.05 10*3/uL 0.01-0.07 = 704-7) Lab Interpretation Abnormal (test code = 55474-0) [facility] [id number] 20:12:00 Test Item Value Reference Range Interpretation Comments POCT PREG (test code = 1605) Negative On board controls acceptable with Yes C Line (test code = 3574) POCT PREG LOT # (test code = 357) [id number] POCT PREG TEST DATE (test 08-28-2024 code = 3576) Lab Interpretation (test code = Normal 24717-8) [facility] referral [id number] 22:54:00 Test Item Value Reference Range Interpretation Comments Mis test name VWF multimer (test code = 2566) Misc test result see comment VWF Quantit ative (test code = 1730) Multimer High MW Multimers ..... ....... 26 %Intermediat e MW Multimers .... 51 %Low MW Multimer .............. 23 % VWF Multimer Distri bution: Normal - - - - - - - - - - - - - - - - - - - - - - - - - - - - - - VWF Multimer Interpretation: Normal distribution of multimers; no e vidence of type 2A, Typ e 2B or platelet-type v on Willebrand defe ct by multimer analys is. Correlation wit h Factor VIII activity, other VWF assays and clinical history is santa al. ======== ======== perf orming site:[facility], [address] [id number] 22:54:00 Test Item Value Reference Range Interpretation Comments Mis test name VWF multimer (test code = 2566) Misc test result see comment VWF Quantit ative (test code = 1730) Multimer High MW Multimers ..... ....... 26 %Intermediat e MW Multimers .... 51 %Low MW Multimer .............. 23 % VWF Multimer Distri bution: Normal - - - - - - - - - - - - - - - - - - - - - - - - - - - - - - VWF Multimer Interpretation: Normal distribution of multimers; no e vidence of type 2A, Typ e 2B or platelet-type v on Willebrand defe ct by multimer analys is. Correlation wit h Factor VIII activity, other VWF assays and clinical history is santa al. ======== ======== perf orming site:[facility] [address] [facility] pathology [id number] 23:22:29 Test Item Value Reference Range Interpretation Comments Case number (test code = [id number]) Surgical pathology See link below for report (test code = PDF Lab Report 2255) Result status (test code This is Final Report = [id number]) for [id number] pathology [id number] 23:22:29 Test Item Value Reference Range Interpretation Comments Case number (test code = [id number]) Surgical pathology See link below for report (test code = PDF Lab Report 2255) Result status (test code This is Final Report = [id number]) for [id number] [facility] [id number] 07:18:00 Test Item Value Reference Range Interpretation Comments Urine culture col/cc Specimen Infor mationSpecimen isolate (test code Source: U [facility] Site: = 38937-6) Clean catch [facility] [id number] 07:18:00 Test Item Value Reference Range Interpretation Comments Urine culture col/cc Specimen Infor mationSpecimen isolate (test code Source: [facility] Site: = 37516-3) Clean [facility] 12 [id number] 03:04:24 Test Item Value Reference Range Interpretation Comments Ventricular rate (test 53 code = 253) Atrial rate (test code 53 = 255) [place] interval (test code 150 = 266) QRSD [...] ECG-No previous ECGs available-Electronical ly Signed By Cyrus Brumfield MD ([id number]) on 09/05/2022 9:04:19 PM [facility] 12 [id number] 03:04:24 Test Item Value Reference Range Interpretation Comments Ventricular rate (test 53 code = 253) Atrial rate (test code 53 = 255) [place] interval (test code 150 = 266) QRSD [...] ECG-No previous ECGs available-Electronical ly Signed By Cyrus Brumfield MD ([id number]) on 09/05/2022 9:04:19 PM [facility]2023-01-11 23:03:00Hanna See CRNA 09/05/2022 5:23 PMAirway Date/Time: 09/05/2022 5:03 PM Location: OR Performedby: SANAM/Jil/DIRECTOR VACCINE/AA: Hanna See CRNAAuthorized by: Isra Gannon MDUrgency: ElectiveDifficult Airway: No Preoxygenated with 100% O2: Yes C-spine Precautions MaintainedThroughout: Yes Mask Ventilation: Easy maskFinal Airway Type: Endotracheal airwayFinal Endotracheal Airway: ETT and reinforced tubeCuffed: Yes Technique Used: Direct laryngoscopyDevices/Methods Used inPlacement: Intubating styletInsertion Site: OralBlade Type: MillerLaryngoscope Blade/Videolaryngoscope Blade Size: 2ETT Size (mm): 6.0Cuff at minimum occlusion pressure: Yes Measured from: LipsETT to Lips (cm): 22ETT to Teeth (cm): 23Placement Verified by: CO2 detection, direct visualization and equalbreath sounds Laryngoscopic view: Grade I - full view of glottisRapid Sequence Induction (RSI): No Modified RSI: No Number of Attempts at Approach: 1 Easy, atraumatic, no change in structuresCT Maxillofacial W Contrast 2022-09-05 00:20:59EXAMINATION: CT MAXILLOFACIAL W CONTRAST CLINICAL HISTORY: DENTAL ABSCESS COMPARISON: None. FINDINGS: Axial images were obtained after IV contrast enhancement with sagittal and coronal image reconstructions. CT scans are performed using radiation dose reduction techniques. Technical factors are evaluated and adjusted to ensure appropriate moderation of exposure. Automated dose management technology is applied to adjust radiation exposure while achieving a highly diagnostic quality image.. There is periapical bone resorption surrounding the root canals of the left mandibular second molar. There is prominent soft tissue swelling overlying the left mandibular body consistent with inflammatory phlegmon without cavitation or abscess formation. There is reactive upper cervical adenopathy. There is no edema in the floor of the mouth and no soft tissue emphysema. IMPRESSION: Periapical bone resorption consistent with periapical inflammatory changes surrounding the root canals of the left second mandibular molar with overlying phlegmon. Inflammatory reactive adenopathy. No focal abscess [id number] HospitalInfluenza virus A and B [id number] 21:36:04 Test Item Value Reference Range Interpretation Comments SARS-CoV-2 (COVID-19) RNA Not detected [Presence] in Respiratory specimen by ISAAC with probe detection (test code = 25280-5) Whether patient resides in a No congregate care setting (test code = 33227-8) Date and time of symptom onset Unknown (test code = 03361-6) Whether the patient was No hospitalized for condition of interest (test code = 16697-7) Whether the patient was admitted No to intensive care unit (ICU) for condition of interest (test code = 16565-4) Whether patient is employed in a No healthcare setting (test code = 75585-2) Whether the patient has symptoms No related to condition of interest (test code = 13730-9) status (test code = No 52339-9) [facility] [id number] 20:36:00 Test Item Value Reference Range Interpretation Comments POCT PREG (test code = 1605) Negative On board controls acceptable with C Yes Line (test code = 3574) POCT PREG LOT # (test code = 3575) POCT PREG TEST DATE (test code = 3576) [facility] [id number] 20:36:00 Test Item Value Reference Range Interpretation Comments POCT PREG (test code = 1605) Negative On board controls acceptable with C Yes Line (test code = 3574) POCT PREG LOT # (test code = 3575) POCT PREG TEST DATE (test code = 3576) [facility] URINALYSIS W/O SPECIFIC [id number] 20:10:00 Test Item Value Reference Range Interpretation [...] code = 3257) Negative Negative - Negative [facility] URINALYSIS W/O SPECIFIC [id number] 20:10:00 Test Item Value Reference Range Interpretation [...] code = 3257) Negative Negative - Negative [facility] GRP A STREP (MOLECULAR)2021-02-13 15:59:00 Test Item Value Reference Range Interpretation Comments POCT GP A STREP (test code = Negative Negative - Negative 40557-6) Lab Interpretation (test code = Normal 32301-7) [facility] FLU A AND B (MOLECULAR)2020-12-10 15:09:00 Test Item Value Reference Range Interpretation Comments POCT INFLUENZA A (test neg Negative - code = 3840) Negative POCT INFLUENZA B (test neg Negative - code = 3841) Negative KISHORE (test code = KISHORE) accurate development and interpretation of all internal controls Lab Interpretation Normal (test code = 84626-1) [facility] GRP A STREP (MOLECULAR)2020-12-10 15:01:00 Test Item Value Reference Range Interpretation Comments POCT GP A STREP (test neg Negative - code = 49419-0) Negative KISHORE (test code = KISHORE) accurate development and interpretation of all internal controls Lab Interpretation Normal (test code = 56429-8) [facility] [id number] 13:56:00 Test Item Value Reference Range Interpretation Comments POCT PREG (test code = 1605) Negative On board controls acceptable with C Yes Line (test code = 3574) POCT PREG LOT # (test code = 3575) POCT PREG TEST DATE (test code = 3576) [facility] [id number] 13:56:00 Test Item Value Reference Range Interpretation Comments POCT PREG (test code = 1605) Negative On board controls acceptable with C Yes Line (test code = 3574) POCT PREG LOT # (test code = 3575) POCT PREG TEST DATE (test code = 3576) [facility] HospitalType and Screen - Type and Screen [...] d at [facility] = 20) [facility] [address] [place], [place] [id number] Free: [phone] A No. [id number] IAT (test code = Negative Performed a t [facility] 1185) [facility] [address] [place] [address]Toll Free: [phone] A No. [id number] [facility] HospitalUrinalysis2021-03-17 19:10:41 Test Item Value Reference Range Interpretation Comments APPEARANCE (test code = Cloudy Clear A 2589086921) COLOR (test code = Red Yellow A 0607792274) PH (test code = 4.8-8.0 5820883535) SP GRAVITY (test code = >=1.030 1.003-1.030 5278870953) GLU U QUAL (test code = Negative Negative 6198054217) BLOOD (test code = Large Negative A 5639089162) KETONES (test code = Negative Negative 4481028287) PROTEIN (test code = 100 mg/dL Negative A 2887-8) UROBILIN (test code = 0.2 mg/dL See_Comment [Auto mated message] 7447756235) The system [employer] generated this result transmit tessie reference range : 0-1.0 mg/dL. Th e reference range was not used to interpret this result as normal/abnormal . BILIRUBIN (test code = Small Negative A 5799853404) NITRITE (test code = Positive Negative A 5556835810) LEUK SELENA (test code = Negative Negative 0545967109) RBC/HPF (test code = See_Comment H [Autom ated message] 3234893393) The system [employer] generated this result transmit tessie reference range : 0 - 3 HPF. The refe rence range was not u sed to interpret th is result as normal/abnormal . WBC/HPF (test code = See_Comment [Autom ated message] 3727307439) The system [employer] generated this result transmit tessie reference range : 0 - 5 HPF. The refe rence range was not u sed to interpret th is result as normal/abnormal . BACTERIA (test code = Moderate Negative A 7058102885) MUCOUS (test code = Slight Negative LPF A 3823385911) SQ EPITH (test code = HPF 5526972380) Ictotest (test code = Positive 7983265871) Lab Interpretation (test Abnormal code = 05717-0) [facility] HospitalBa[facility] Metabolic Panel (NA, K, CL, CO2, GLUCOSE, BUN, CREATININE, CA)2020-11-09 18:57:46 Test Item Value Reference Range Interpretation Comments NA (test code = 138 mmol/L 135-145 5741630636) K (test code = 3.5 mmol/L 3.5-5.0 1341506751) CL (test code = 105 mmol/L 98-108 0868789160) CO2 TOTAL (test code = 26 mmol/L 23-31 7595522950) AGAP (test code = 2-16 3543486993) BUN (test code = 15 mg/dL 7-23 8922322276) GLUCOSE (test code = 104 mg/dL 70-110 8395881322) CREATININE (test code 0.67 mg/dL 0.50-1.04 = 7944221248) CALCIUM (test code = 9.0 mg/dL 8.6-10.6 4467501888) eGFR Calculation mL/min/1.73m2 (Non-) (test code = 3317093919) eGFR Calculation mL/min/1.73m2 () (test code = 2505465443) KISHORE (test code = KISHORE) Association of [...] or urine or abnormalities in imaging tests). [facility] with [id number] 18:40:21 Test Item Value Reference Range Interpretation Comments WBC (test code = See_Comment [Automated message] 6690-2) The system [employer] generated this result transmitted ref erence range: 4.30 - 1 1.10 10*3/?L. The re ference range was not u sed to interpret this result as normal/abnor mal. RBC (test code = See_Comment [Automated message] 789-8) The system [employer] generated this result transmitted ref erence range: [...] RDW-SD (test code 40.1 fL 39.0-49.9 = 78245-6) RDW-CV (test code 13.2 % 12.0-15.5 = 788-0) PLT (test code = See_Comment [Automated message] 777-3) The system [employer] generated this result transmitted ref erence range: 166 - 35 8 10*3/?L. The re ference range was not u sed to interpret this result as normal/abnor mal. MPV (test code = 11.2 fL 9.5-12.9 15544-7) NRBC/100 WBC (test See_Comment [Automat ed message] code = 1079650697) The [employer] which generated this result transmitted ref erence range: 0.0 - 10 .0 /100 WBCs. The refer ence range was not u sed to interpret this result as normal/abnor mal. NRBC x10^3 (test <0.01 See_Comment [Automated message] code = 1295996332) The syste m which generated this result transmitted ref erence range: 10*3/?L. The reference range was not used to interpr et this result as normal/abnormal . GRAN MAT (NEUT) % 61.6 % (test code = 770-8) IMM GRAN % (test 0.20 % code = 8697469289) LYMPH % (test code 27.3 % = 736-9) MONO % (test code 8.0 % = 5905-5) EOS % (test code = 2.5 % 713-8) BASO % (test code 0.4 % = 706-2) GRAN MAT 5.67 10*3/uL 1.88-7.09 x10^3(ANC) (test code = 1562384671) IMM GRAN x10^3 <0.03 0.00-0.06 (test code = 0097342476) LYMPH x10^3 (test 2.52 10*3/uL 1.32-3.29 code = 731-0) MONO x10^3 (test 0.74 10*3/uL 0.33-0.92 code = 742-7) EOS x10^3 (test 0.23 10*3/uL 0.03-0.39 code = 711-2) BASO x10^3 (test 0.04 10*3/uL 0.01-0.07 code = 704-7) [facility] [id number] 18:19:00 Test Item Value Reference Range Interpretation Comments POCT PREG (test code = 1605) negative On board controls acceptable with C present Line (test code = 3574) Lab Interpretation (test code = Normal 61336-3) [facility] URINALYSIS W/O SPECIFIC [id number] 15:17:00 Test Item Value Reference Range Interpretation [...] code = 3257) Negative Negative - Negative [facility] HospitalPOCT URINALYSIS W/O SPECIFIC [id number] 15:17:00 Test Item Value Reference Range Interpretation [...] code = 3257) Negative Negative - Negative [facility] HospitalCOMP. METABOLIC PANEL (31139)2020-10-20 03:05:00 Test Item Value Reference Range Interpretation Comments NA (test code = 139 mmol/L 135-145 9619786236) K (test code = 4.0 mmol/L 3.5-5 6206354716) CL (test code = 104 mmol/L 98-108 0254413845) CO2 TOTAL (test code = 29 mmol/L 23-31 7335949167) AGAP (test code = 2-16 2610461399) BUN (test code = 18 mg/dL 7-23 6129293420) GLUCOSE (test code = 101 mg/dL 70-110 2316462903) CREATININE (test code 0.59 mg/dL 0.5-1.04 = 8659162406) TOTAL BILI (test code 0.2 mg/dL 0.1-1.1 = 1604743336) CALCIUM (test code = 8.9 mg/dL 8.6-10.6 9246584589) T PROTEIN (test code = 7.0 g/dL 6.3-8.2 3993319086) ALBUMIN (test code = 4.2 g/dL 3.5-5 4406902976) ALK PHOS (test code = 57 U/L 34-122 4011551226) ALTv (test code = 26 U/L 5-35 1742-6) AST(SGOT) (test code = 24 U/L 13-40 1854410520) eGFR Calculation mL/min/1.73m2 (Non-) (test code = 1168581266) eGFR Calculation mL/min/1.73m2 () (test code = 2399599081) KISHORE (test code = KISHORE) Association of [...] or urine or abnormalities in imaging tests). [facility] HospitalLIPASE2021-02-25 03:04:00 Test Item Value Reference Range Interpretation Comments LIPASE (test code = 0389249651) 65 U/L 0-220 Lab Interpretation (test code = Normal 92267-3) [facility] HospitalPROTHROMBIN TIME / [id number] 02:56:00 Test Item Value Reference Range Interpretation Comments PROTIME PATIENT (test See_Comment [Auto mated message] code = 5964-2) The system [employer] generated this result transmitted ref erence range: 12.0 - 1 4.7 Seconds. The re ference range was not u sed to interpret this result as normal/abnor mal. INR (test code = 6301-6) Nor mal INR <1.1; Warfarin Therap eutic range 2.0 to 3. 0 or 2.5 to 3.5, dep ending upon the indica tions. Lab Interpretation (test Normal code = 77811-3) [facility] HospitalURINALYSIS2021-02-25 02:53:00 Test Item Value Reference Range Interpretation Comments APPEARANCE (test code = Hazy Clear A 2234713652) COLOR (test code = Yellow Yellow 1455031624) PH (test code = 4.8-8.0 1433636565) SP GRAVITY (test code = 1.003-1.030 0668678220) GLU U QUAL (test code = Normal Normal 3856883122) BLOOD (test code = 3+ Negative A 4210795463) KETONES (test code = Negative Negative 5639212533) PROTEIN (test code = 30 mg/dL Negative A 2887-8) UROBILIN (test code = Normal Normal 5552440424) BILIRUBIN (test code = Negative Negative 2416141402) NITRITE (test code = Negative Negative 0574885454) LEUK SELENA (test code = 75/uL Negative A 1332537417) RBC/HPF (test code = See_Comment H [Autom ated message] 9320110945) The system [employer] generated this result transmitted ref erence range: 0 - 3 HP F. The reference range was not used to int erpret this result as normal/abnormal . WBC/HPF (test code = See_Comment H [Autom ated message] 7386216761) The system [employer] generated this result transmitted ref erence range: 0 - 5 HP F. The reference range was not used to int erpret this result as normal/abnormal . BACTERIA (test code = Few Negative A 8907239803) MUCOUS (test code = Slight Negative LPF A 7229339220) SQ EPITH (test code = HPF 6423195811) Lab Interpretation (test Abnormal code = 30713-7) [facility] HospitalCB WITH [id number] 02:50:00 Test Item Value Reference Range Interpretation Comments WBC (test code = See_Comment [Automated message] 6690-2) The system [employer] generated this result transmitted ref erence range: 4.30 - 1 1.10 10*3/?L. The re ference range was not u sed to interpret this result as normal/abnor mal. RBC (test code = See_Comment [Automated message] 549-8) The system [employer] generated this result transmitted ref erence range: [...] RDW-SD (test code 41.7 fL 39-49.9 = 28567-1) RDW-CV (test code 13.2 % 12-15.5 = 788-0) PLT (test code = See_Comment [Automated message] 777-3) The system [employer] generated this result transmitted ref erence range: 166 - 35 8 10*3/?L. The re ference range was not u sed to interpret this result as normal/abnor mal. MPV (test code = 11.4 fL 9.5-12.9 61823-5) NRBC/100 WBC (test See_Comment [Automat ed message] code = 8597893965) The sy[employer] which generated this result transmitted ref erence range: 0.0 - 10 .0 /100 WBCs. The refer ence range was not u sed to interpret this result as normal/abnor mal. NRBC x10^3 (test <0.01 See_Comment [Automated message] code = 8947471207) The syste m which generated this result transmitted ref erence range: 10*3/?L. The reference range was not used to interpr et this result as normal/abnormal . GRAN MAT (NEUT) % 57.1 % (test code = 770-8) IMM GRAN % (test 0.40 % code = 6200209674) LYMPH % (test code 32.8 % = 736-9) MONO % (test code 6.6 % = 5905-5) EOS % (test code = 2.6 % 713-8) BASO % (test code 0.5 % = 706-2) GRAN MAT 4.66 10*3/uL 1.88-7.09 x10^3(ANC) (test code = 7829413944) IMM GRAN x10^3 0.03 10*3/uL 0-0.06 (test code = 0978478612) LYMPH x10^3 (test 2.68 10*3/uL 1.32-3.29 code = 731-0) MONO x10^3 (test 0.54 10*3/uL 0.33-0.92 code = 742-7) EOS x10^3 (test 0.21 10*3/uL 0.03-0.39 code = 711-2) BASO x10^3 (test 0.04 10*3/uL 0.01-0.07 code = 704-7) [facility] HospitalPOCT [id number] 01:42:00 Test Item Value Reference Range Interpretation Comments POCT PREG (test code = 1605) negative On board controls acceptable with present C Line (test code = 3574) POCT PREG LOT # (test code = 3575) [id number] POCT PREG TEST DATE (test 05/25/2022 code = 3576) Lab Interpretation (test code = Normal 87436-4) [facility]. [facility] - PAP w/reflex HPV if ASC-US or above 2020-06-29 00:00:00 Test Item Value Reference Range Interpretation Comments Case (test code = Click ImageLink button A Case) for report. [place] [facility] A [facility]REP (MOLECULAR)2020-06-06 16:26:00 Test Item Value Reference Range Interpretation Comments POCT GP A STREP (test neg Negative - code = 29398-9) Negative KISHORE (test code = KISHORE) accurate development and interpretation of all internal controls Lab Interpretation Normal (test code = 56148-6) [facility] HospitalPOCT FLU A AND B (MOLECULAR)2020-06-06 16:18:00 Test Item Value Reference Range Interpretation Comments POCT INFLUENZA A (test neg Negative - code = 3840) Negative POCT INFLUENZA B (test neg Negative - code = 3841) Negative KISHORE (test code = KISHORE) accurate development and interpretation of all internal controls Lab Interpretation Normal (test code = 46669-1) [facility] HospitalXR WRIST 3+ VW [id number] 18:03:03 Unremarkable left wrist series RL 5939 CLINICAL INDICATIONS: ?Pain COMPARISON STUDY: None ORDERING PHYSICIAN: FRANSISCO ESCOBAR TECHNIQUE: 3 views left wrist FINDINGS: The osseous structures are unremarkable. There is no evidence of fracture.Alignment is normal. The joint spaces are preserved. The soft tissues areunremarkable. [facility], Radiant Results Inft User - 05/27/2020 1:04 PM CDTCLINICAL INDICATIONS: PainCOMPARISON STUDY: NoneORDERING PHYSICIAN: RFANSISCO DENGIQUE: 3 views left wristFINDINGS:The osseous structures are unremarkable. There is no evidence of fracture.Alignment is normal. The joint spaces are preserved. The soft tissues areunremarkable.IMPRESSIONUnremarkable left wrist seriesRL 5939Electronically signed by Faisal Moon 05/27/2020 1:03 PMUnGrace [facility] CenterXR SHOULDER 2+ VW [id number] 18:02:12 Unremarkable right shoulder series RL 5939 [...] soft tissues areunremarkable.IMPRESSIONUnremarkable right shoulder seriesRL 5939 [facility] CenterXR ANKLE 3+ VW [id number] 18:01:40 Unremarkable right ankle series RL 5939 [...] soft tissues areunremarkable.IMPRESSIONUnremarkable right ankle seriesRL 5939 [facility] COVID-19 (ID NOW RAPID TESTING)2020-04-09 16:50:00 Test Item Value Reference Range Interpretation Comments SARS-CoV-2 Rapid ID NOW Not Detected Not Detected (test code = 12375-6) KISHORE (test code = KISHORE) ID NOW COVID-19 Assay is an isothermal nucleic acid amplification test intended for the qualitative detection of nucleic acid from SARS-CoV-2 viral RNA in nasopharyngeal (PSYCHOLOGIST MILIT[employer] PERSONNEL) specimens. It is used under Emergency Use [...] indicated. Lab Interpretation Normal (test code = 76335-2) [facility] HospitalAD CLC OR LCC ONLY - WET [id number] 16:47:00 Test Item Value Reference Range Interpretation Comments Wet Prep (test code = Moderate WBC per 0749985328) high-power field [facility] HospitalURINALYSIS2020-08-15 16:44:00 Test Item Value Reference Range Interpretation Comments APPEARANCE (test code = Hazy Clear A 9548875214) COLOR (test code = Yellow Yellow 0219479049) PH (test code = 4.8-8.0 3695497199) SP GRAVITY (test code = 1.003-1.030 7750672723) GLU U QUAL (test code = 150 mg/dL Normal A 1175602249) BLOOD (test code = Negative Negative INTERFERE NCE FROM 7962299986) ASCORBIC ACID M AY CAUSE FALSE NEG ATIVE RESULT KETONES (test code = 5 mg/dL Negative A 8112536589) PROTEIN (test code = Negative Negative 2887-8) UROBILIN (test code = Normal Normal 1179946047) BILIRUBIN (test code = Negative Negative 2275988399) NITRITE (test code = Negative Negative 6078970915) LEUK SELENA (test code = 25/uL Negative A 9623914703) RBC/HPF (test code = See_Comment [Autom ated message] 4127811323) The system [employer] generated this result transmitted ref erence range: 0 - 3 HP F. The reference range was not used to int erpret this result as normal/abnormal . WBC/HPF (test code = See_Comment [Autom ated message] 7590428015) The system [employer] generated this result transmitted ref erence range: 0 - 5 HP F. The reference range was not used to int erpret this result as normal/abnormal . BACTERIA (test code = Negative Negative 0220330699) MUCOUS (test code = Slight Negative LPF A 1105774044) SQ EPITH (test code = HPF 9886528405) Lab Interpretation Abnormal (test code = 66264-8) [facility] [id number] 16:30:00 Test Item Value Reference Range Interpretation Comments Fern Test (test code = 1115408058) Negative [facility][QL] CMP [id number] 00:00:00 Test Item Value Reference Range Interpretation [...] mg/dl 0.2-1.2 N Normal (test code = 48211-0) ALKALINE PHOSPHATASE 120 u/l 31-125 N (test code = ALKALINE PHOSPHATASE) AST; Normal (test 14 u/l 10-30 N code = 1916-6) ALT; Normal (test 16 u/l 6-29 N SPECIMEN R ECEIVED code = 1742-6) DATE AND TIME : [id number] [facility][Q] BILE ACIDS, FRACTIONATED AND TOTAL, [id number] 00:00:00 Test Item Value Reference Interpretation Comments [...] performancechar acteristics have been deter mined by [facility]. It has not beencleared or approved by FDA. This as say has been validatedpursua nt to the CLIA regulations and is used for clinicalpurpose s.SPECIMEN RECEIVED DATE A ND TIME: [id number] [facility][QL] CULTURE, URINE, [id number] 00:00:00 Test Item Value Reference Range Interpretation Comments SOURCE: (test URINE, CLEAN CATCH code = SOURCE:) STATUS: (test FINAL code = STATUS:) Result (test Multiple organisms CFU/mL. T hese code = Result) present, each less organis ms, commonly than 10,000 found onexterna l and internal genita romana, are consideredt o be colonizers. No further testing performed.SPECI MEN RECEIVED DATE A ND TIME: 45 [facility] PELVIS > 14 [id number] 21:23:34Impression: Single live intrauterine fetus, with adequate [...] [facility] [id number] 19:53:00 Test Item Value Reference Range Interpretation Comments Fern Test (test code = 0896491691) Negative [facility] (ID NOW RAPID TESTING)2020-03-07 01:44:00 Test Item Value Reference Range Interpretation Comments SARS-CoV-2 Rapid ID NOW Positive Not Detected A (test code = 58612-7) KISHORE (test code = KISHORE) ID NOW COVID-19 Assay is an isothermal nucleic acid amplification test intended for the qualitative detection of nucleic acid from SARS-CoV-2 viral RNA in nasopharyngeal (PSYCHOLOGIST MILITARY PERSONNEL) specimens. It is used under Emergency Use [...] indicated. Lab Interpretation Abnormal (test code = 86099-7) [facility] METABOLIC PANEL (NA, K, CL, CO2, GLUCOSE, BUN, CREATININE, CA)2020-03-07 01:43:00 Test Item Value Reference Range Interpretation Comments NA (test code = 133 mmol/L 135-145 L 8376349952) K (test code = 3.8 mmol/L 3.5-5 1608683156) CL (test code = 106 mmol/L 98-108 2039747072) CO2 TOTAL (test code = 22 mmol/L 23-31 L 5679515596) AGAP (test code = 2-16 3107666953) BUN (test code = 8 mg/dL 7-23 5883497741) GLUCOSE (test code = 98 mg/dL 70-110 5988637880) CREATININE (test code = 0.38 mg/dL 0.5-1.04 L 5995113954) CALCIUM (test code = 8.8 mg/dL 8.6-10.6 2094043178) eGFR Calculation mL/min/1.73m2 (Non-) (test code = 6704490090) eGFR Calculation mL/min/1.73m2 () (test code = 3986774337) KISHORE (test code = KISHORE) Association of [...] tests). Lab Interpretation Abnormal (test code = 48986-4) [facility] WITH [id number] 01:27:00 Test Item Value Reference Range Interpretation Comments WBC (test code = See_Comment H [Automated 1890-2) message] The system which generated this result transmit tsesie reference range : 4.30 - 11.10 10*3/?L. [...] RDW-SD (test code = 40.8 fL 39-49.9 28629-9) RDW-CV (test code = 13.7 % 12-15.5 788-0) PLT (test code = See_Comment [Automated 777-3) message] The system which generated this result transmit tessie reference range : 166 - 358 10*3/ ?L. The reference range was not u sed to interpret th is result as normal/abnormal . MPV (test code = 11.6 fL 9.5-12.9 10835-4) NRBC/100 WBC (test See_Comment [Automat ed code = 0224568640) message] The system which generated this result transmit tessie reference range : 0.0 - 10.0 /100 WBCs. The reference range was not used to interpret this result as normal/abnormal . NRBC x10^3 (test code <0.01 See_Comment [Auto mated = 0427518960) message] The system which generated this result transmit tessie reference range : 10*3/?L. The reference range was not used to interpret this result as normal/abnormal . GRAN MAT (NEUT) % 80.6 % (test code = 770-8) IMM GRAN % (test code 1.00 % = 3256259359) LYMPH % (test code = 11.4 % 736-9) MONO % (test code = 5.8 % 5905-5) EOS % (test code = 0.9 % 713-8) BASO % (test code = 0.3 % 706-2) GRAN MAT x10^3(ANC) 12.28 10*3/uL 1.88-7.09 H (test code = 3598000317) IMM GRAN x10^3 (test 0.15 10*3/uL 0-0.06 H code = 4767980150) LYMPH x10^3 (test code 1.73 10*3/uL 1.32-3.29 = 731-0) MONO x10^3 (test code 0.89 10*3/uL 0.33-0.92 = 742-7) EOS x10^3 (test code = 0.14 10*3/uL 0.03-0.39 711-2) BASO x10^3 (test code 0.04 10*3/uL 0.01-0.07 = 704-7) Lab Interpretation Abnormal (test code = 94415-9) [facility][Q] GLUCOSE, GESTATIONAL SCREEN (50G)-130 [id number] 16:06:00 Test Item Value Reference Range Interpretation Comments GLUCOSE, GESTATIONAL 121 mg/dl <135 N SPECIME N RECEIVED DATE SCREEN (50G)-130 AND TIME: 2 48868850274 CUTOFF; Normal (test code = 51864-2) [facility][QL] CBC (INCLUDES DIFF/PLT)2020-02-18 16:06:00 Test Item Value Reference Range Interpretation Comments WHITE BLOOD CELL 13.6 3.8-10.8 COUNT (test code = {Thousand/u} WHITE BLOOD CELL COUNT) RED BLOOD CELL COUNT 3.80 3.80-5.10 N (test code = RED {Million/uL} BLOOD CELL COUNT) HEMOGLOBIN; Below 10.8 g/dl 11.7-15.5 Low Threshold (test code = 39692-4) HEMATOCRIT; Below 32.5 % 35.0-45.0 Low Threshold (test code = 4544-3) MCV; Normal (test 85.5 fL 80.0-100.0 N code = 787-2) MCHC; Normal (test 33.2 g/dl 32.0-36.0 N code = 94076-8) RDW; Normal (test 13.1 % 11.0-15.0 N code = 788-0) PLATELET COUNT; 262 140-400 N Normal (test code = {Thousand/u} 777-3) MPV; Normal (test 11.8 fL 7.5-12.5 N code = 90485-8) ABSOLUTE NEUTROPHILS 99340 2641-4605 (test code = {cells/uL} ABSOLUTE NEUTROPHILS) ABSOLUTE LYMPHOCYTES 0212 291-0127 N (test code = {cells/uL} ABSOLUTE LYMPHOCYTES) [...] Normal 6.2 % N (test code = 72940-2) EOSINOPHILS; Normal 0.9 % N (test code = 53975-9) BASOPHILS; Normal 0.3 % N SPECIMEN R ECEIVED (test code = DATE AND TIME: 13804-5) [id number] [facility][QL] URINALYSIS, [id number] 00:00:00 Test Item Value Reference Range Interpretation [...] Normal NEGATIVE NEGATIVE N (test code = 77738-5) KETONES; Normal (test NEGATIVE NEGATIVE N code = 50169-5) OCCULT BLOOD; Normal NEGATIVE NEGATIVE N (test code = 11204-4) PROTEIN; Normal (test NEGATIVE NEGATIVE N code = 08435-5) NITRITE; Normal (test NEGATIVE NEGATIVE N code = 65552-8) LEUKOCYTE ESTERASE 1+ NEGATIVE A (test code = LEUKOCYTE ESTERASE) WBC; Abnormal (test 10-20 < OR = 5 A code = 6690-2) RBC; Normal (test 0-2 < OR = 2 N code = 789-8) SQUAMOUS EPITHELIAL > OR = 60 < OR = 5 A CELLS; Abnormal (test code = 78239-5) BACTERIA; Abnormal FEW NONE SEEN A (test code = 630-4) CALCIUM OXALATE FEW NONE OR FEW N CRYSTALS; Normal (test code = 39285-5) HYALINE CAST; Normal NONE SEEN NONE SEEN N SPECIME N RECEIVED DATE (test code = 31361-3) AND TI ME: [id number] [facility][QL] CULTURE, URINE, [id number] 00:00:00 Test Item Value Reference Range Interpretation [...] desired.SPECIME N RECEIVED DATE A ND TIME: [facility] - Affirm VPIII (BV Panel)2020-01-15 00:00:00 Test Item Value Reference Range Interpretation Comments Case (test code = Click ImageLink button N Case) for report. [place] [id number] 01:37:00 Test Item Value Reference Range Interpretation Comments APPEARANCE (test code = Hazy Clear A 7061352072) COLOR (test code = Yellow Yellow 4117249582) PH (test code = 4.8-8.0 7591453007) SP GRAVITY (test code = 1.003-1.030 8674086044) GLU U QUAL (test code = Normal Normal 8257664248) BLOOD (test code = Negative Negative 5662406275) KETONES (test code = Negative Negative 9596194075) PROTEIN (test code = Negative Negative 2887-8) UROBILIN (test code = Normal Normal 9825436168) BILIRUBIN (test code = Negative Negative 3055356721) NITRITE (test code = Negative Negative 5988763895) LEUK SELENA (test code = Negative Negative 2934234558) RBC/HPF (test code = See_Comment [Autom ated message] 6364027310) The system [employer] generated this result transmitted ref erence range: 0 - 3 HP F. The reference range was not used to int erpret this result as normal/abnormal . WBC/HPF (test code = See_Comment [Autom ated message] 9994731353) The system [employer] generated this result transmitted ref erence range: 0 - 5 HP F. The reference range was not used to int erpret this result as normal/abnormal . BACTERIA (test code = Few Negative A 6787151599) MUCOUS (test code = Slight Negative LPF A 1712465375) SQ EPITH (test code = HPF 1137117811) Lab Interpretation (test Abnormal code = 01909-8) [facility]ON[facility] COVID-19 [id number] 00:49:00 Test Item Value Reference Range Interpretation Comments SARS-CoV-2 (test code = Not Detected Not Detected 76252-8) KISHORE (test code = KISHORE) ID NOW COVID-19 Assay is an isothermal nucleic acid amplification test intended for the qualitative detection of nucleic acid from SARS-CoV-2 viral RNA in nasopharyngeal (PSYCHOLOGIST MILITARY PERSONNEL) specimens. It is used under Emergency Use [...] indicated. Lab Interpretation Normal (test code = 64245-6) [facility] HospitalTROPONIN [id number] 00:26:00 Test Item Value Reference Range Interpretation Comments TROPONIN I (test <0.012 See_Comment [Automated code = 2220516661) message] The system which generated this result [...] ? Lab Interpretation Normal (test code = 81478-6) [facility] HospitalaPTT2020-04-21 00:24:00 Test Item Value Reference Range Interpretation Comments APTT Patient (test See_Comment [Automat ed code = 3173-2) message] The system which generated this result transmitted reference range : 23 - 38 Seconds . The reference range was not used to interpr et this result as normal/abnormal . KISHORE (test code = KISHORE) The [facility] patient population mean normal value for aPTT is 30 seconds. Lab Interpretation Normal (test code = 36575-5) [facility] HospitalPROTHROMBIN TIME / [id number] 00:24:00 Test Item Value Reference Range Interpretation [...] tions. Lab Interpretation (test Normal code = 39095-8) [facility] HospitalCBC WITH [id number] 00:19:00 Test Item Value Reference Range Interpretation Comments WBC (test code = See_Comment H [Automated 6390-2) message] The system which generated this result transmit tessie reference range : 4.30 - 11.10 10*3/?L. The reference range was not used to interpret this result as normal/abnormal . RBC (test code = See_Comment [Automated 029-8) message] The system which generated this result [...] RDW-SD (test code = 42.7 fL 39-49.9 73589-0) RDW-CV (test code = 13.2 % 12-15.5 788-0) PLT (test code = See_Comment [Automated 657-3) message] The system which generated this result transmit tessie reference range : 166 - 358 10*3/ ?L. The reference range was not u sed to interpret th is result as normal/abnormal . MPV (test code = 11.2 fL 9.5-12.9 00233-0) NRBC/100 WBC (test See_Comment [Automat ed code = 1982817946) message] The system which generated this result transmit tessie reference range : 0.0 - 10.0 /100 WBCs. The reference range was not used to interpret this result as normal/abnormal . NRBC x10^3 (test code <0.01 See_Comment [Auto mated = 5819659262) message] The system which generated this result transmit tessie reference range : 10*3/?L. The reference range was not used to interpret this result as normal/abnormal . GRAN MAT (NEUT) % 76.5 % (test code = 770-8) IMM GRAN % (test code 0.90 % = 6243439758) LYMPH % (test code = 14.3 % 736-9) MONO % (test code = 6.3 % 5905-5) EOS % (test code = 1.7 % 713-8) BASO % (test code = 0.3 % 706-2) GRAN MAT x10^3(ANC) 12.18 10*3/uL 1.88-7.09 H (test code = 2444675941) IMM GRAN x10^3 (test 0.14 10*3/uL 0-0.06 H code = 7938605143) LYMPH x10^3 (test code 2.28 10*3/uL 1.32-3.29 = 731-0) MONO x10^3 (test code 1.01 10*3/uL 0.33-0.92 H = 742-7) EOS x10^3 (test code = 0.27 10*3/uL 0.03-0.39 711-2) BASO x10^3 (test code 0.04 10*3/uL 0.01-0.07 = 704-7) Lab Interpretation Abnormal (test code = 94245-9) [facility]. METABOLIC PANEL (96213)2019-12-15 00:14:00 Test Item Value Reference Range Interpretation Comments NA (test code = 135 mmol/L 135-145 0160295124) K (test code = 3.8 mmol/L 3.5-5 0960717741) CL (test code = 105 mmol/L 98-108 5993618061) CO2 TOTAL (test code = 23 mmol/L 23-31 1314124914) AGAP (test code = 2-16 3851353970) BUN (test code = 10 mg/dL 7-23 9276728284) GLUCOSE (test code = 86 mg/dL 70-110 6779244714) CREATININE (test code = 0.39 mg/dL 0.5-1.04 L 6103217778) TOTAL BILI (test code = 0.1 mg/dL 0.1-1.9 2500932279) CALCIUM (test code = 9.0 mg/dL 8.6-10.6 7667651715) T PROTEIN (test code = 7.4 g/dL 6.3-8.2 0994370539) ALBUMIN (test code = 4.0 g/dL 3.5-5 4381741314) ALK PHOS (test code = 71 U/L 34-122 8111974159) ALTv (test code = 20 U/L 5-35 1742-6) AST(SGOT) (test code = 22 U/L 13-40 0740304533) eGFR Calculation mL/min/1.73m2 (Non-) (test code = 2010997597) eGFR Calculation mL/min/1.73m2 () (test code = 9611239287) KISHORE (test code = KISHORE) Association of [...] tests). Lab Interpretation Abnormal (test code = 02674-5) [facility] HospitalLIPASE, [id number] 00:14:00 Test Item Value Reference Range Interpretation Comments LIPASE (test code = 5294530854) 47 U/L 0-220 Lab Interpretation (test code = Normal 68239-2) [facility][Q] IRON, TIBC AND FERRITIN [id number] 15:53:00 Test Item Value Reference Range Interpretation Comments IRON, TOTAL (test 108 {mcg/dl} 40-190 N code = IRON, TOTAL) IRON BINDING 454 {mcg/dL 250-450 CAPACITY (test code ca} = IRON BINDING CAPACITY) % SATURATION (test 24 {% CALC} 16-45 N SPECIMEN RECEIVED code = % DATE AND TIME: SATURATION) 399756142895 FERRITIN (test code 13 ng/ml 16-154 SPECIMEN RECEIVED = FERRITIN) DATE AND TIME: [facility][Q] OBSTETRIC [id number] 15:53:00 Test Item Value Reference Range Interpretation Comments WHITE BLOOD CELL 13.1 3.8-10.8 COUNT (test code = {Thousand/u} WHITE BLOOD CELL COUNT) RED BLOOD CELL 4.07 3.80-5.10 N COUNT (test code = {Million/uL} RED BLOOD CELL COUNT) HEMAGLOBIN; Normal 12.3 g/dl 11.7-15.5 N (test code = 20957-9) HEMATOCRIT; Normal 36.0 % 35.0-45.0 N (test code = 4544-3) MCV; Normal (test 88.5 fL 80.0-100.0 N code = 787-2) MCHC; Normal (test 34.2 g/dl 32.0-36.0 N code = 29440-6) RDW; Normal (test 13.2 % 11.0-15.0 N code = 788-0) PLATELET COUNT; 260 {Thousand/u} 140-400 N Normal (test code = 777-3) MPV; Normal (test 11.7 fL 7.5-12.5 N code = 59321-8) ABSOLUTE 9930 {cells/uL} 7141-9662 NEUTROPHILS (test code = ABSOLUTE NEUTROPHILS) ABSOLUTE [...] Normal 5.6 % N (test code = 76334-1) EOSINOPHILS; Normal 1.4 % N (test code = 73962-9) BASOPHILS; Normal 0.5 % N SPECIMEN R ECEIVED (test code = DATE AND TIME: 43822-4) 085472638117 ANTIBODY SCREEN, NO ANTIBODIES N Reference range No RBC W/REFL ID, DETECTED antibodies de tected TITER AND AG; This assay is a Normal (test code = screenin g test for 890-4) the detection o f red blood cell antibodies. The test is not to be us ed for pretransfus ion screening or fo r the medical managem ent of an alloimmun ized . SPEC IMEN RECEIVED DATE A ND TIME: ABO GROUP (test A code = 883-9) RH TYPE (test code RH(D) NEGATIVE For add itional = 82452-5) information, pl ease refer to http://educatio nEnrique stDiagnostics.c om/fa q/SOE016 (This link is being provid ed for informational/e ducat ional purposes only.)SPECIMEN RECEIVED DATE A ND TIME: RPR (DX) W/REFL NON-REACTIVE NON-REACTIVE N SPECIMEN REC EIVED TITER AND DATE AND TIME: CONFIRMATORY 639107126772 TESTING (test code = RPR (DX) W/REFL TITER AND CONFIRMATORY TESTING) HEPATITIS B SURFACE NON-REACTIVE NON-REACTIVE N SPECIMEN RECEIVED ANTIGEN; Normal DATE AND BENJAMIN E: (test code = 102734619608 5195-3) RUBELLA ANTIBODY 3.85 {index} N Index Inter pretation (IGG); Normal (test ----- -- code = 95538-0) <0.90 Not co nsistent with Immunity 0.90-0.99 Equi vocal > or = 1.00 Consistent with Immunity The presence of rub shaheen IgG antibody suggests immunization or past or current infe ction withrubella virus.SPECIMEN RECEIVED DATE A ND TIME: [facility][Q] [id number] DEHYDROGENASE, QUANT.2019-11-30 15:53:00 Test Item Value Reference Range Interpretation Comments SRPRCBH-4-DSZRNUHPG 18.1 {U/g 7.0-20.5 SPECIMEN RECEIVED DEHYDROGENASE (test Hgb} DATE AND TIME: code = 404849170634 MENWCLM-5-VJLGLMZHO DEHYDROGENASE) [facility][QL] FOLATE, [id number] 15:53:00 Test Item Value Reference Range Interpretation Comments FOLATE, SERUM 13.5 ng/ml N Reference Rang e Low: <3.4 (test code = Borderline: 3. 4-5.4 FOLATE, SERUM) Normal: >5.4 SPECIMEN RECEIVED DATE A ND TIME: [facility][Q] TREPONEMA PALLIDUM AB, PARTICLE [id number] 15:53:00 Test Item Value Reference Range Interpretation Comments TREPONEMA PALLIDUM NONREACTIVE Reference Range: AB, PARTICLE NonreactiveSPEC IMEN AGGLUTINATION (test RECEIVED DATE AND TIME: code = TREPONEMA 74183312395 6 PALLIDUM AB, PARTICLE AGGLUTINATION) [facility][QL] CULTURE, URINE, [id number] 15:53:00 Test Item Value Reference Range Interpretation Comments SOURCE: (test URINE, CLEAN code = SOURCE:) CATCH STATUS: (test FINAL code = STATUS:) ISOLATE 1: (test 50,000-100,000 A Lactobaci llus code = ISOLATE CFU/mL of Wu re present 1:) colonizers from external andint ernal genitalia. No f urther testing (includingsusce ptibili ty) will be performed.SPECI MEN RECEIVED DATE A ND TIME: [facility][Q] HEMOGLOBINOPATHY [id number] 15:53:00 Test Item Value Reference Range Interpretation Comments RED BLOOD CELL COUNT 3.96 3.80-5.10 N (test code = RED {Million/uL} BLOOD CELL COUNT) HEMAGLOBIN; Normal 12.4 g/dl 11.7-15.5 N (test code = 63865-2) HEMATOCRIT; Normal 35.4 % 35.0-45.0 N (test code = 4544-3) MCV; Normal (test 89.4 fL 80.0-100.0 N code = 787-2) MCH; Normal (test 31.3 pg 27.0-33.0 N code = 55223-5) RDW; Normal (test 13.4 % 11.0-15.0 N SPECIMEN R ECEIVED code = 788-0) DATE AND TIME: HEMOGLOBIN A (test 97.6 % >96.0 N code = HEMOGLOBIN A) HEMOGLOBIN F (test <1.0 <2.0 N code = HEMOGLOBIN F) HEMOGLOBIN A2 2.4 % 1.8-3.5 N (QUANT); Normal (test code = 09465-5) INTERPRETATION (test See Comment Normal code = phenotype.SPECI MEN INTERPRETATION) RECEIVED MIGUEL E AND TIME: [facility][Q] HIV-1/2 Antigen and Antibodies, Fourth Generation, with [id number] 15:53:00 Test Item Value Reference Range Interpretation Comments HIV AG/AB, 4TH NON-REACTIVE NON-REACTIVE N HIV-1 antigen and GEN; Normal HIV-1/HIV-2 ant ibodies were (test code = [place] [address]-7) laboratory evid ence of HIVinfection. Clemencia SUNSHINE NOTE: This informatio n has been disclosed toyou from records whose confidentiality may beprotected by state law. If your state r equires suchprotection, then the state law prohi bits you frommaking any further disclosure of t he informationwith out the specific writte n consent of the personto om it pertains, or as otherwise permitted by odalys [place] general authorization f or the release of medi [facility] orother information is NOT sufficient for this purpose. For ad ditional information ple ase refer tohttp://educat ion.MobiApps/fa q/GYN358(Thi s link is being provided for informational/e ducational purposes only.) The performance of this assay has not been clinicallyvalid ated in patients less t prince 2 years old. SPECIMEN R ECEIVED DATE AND TIME: [id number] [facility] - GC/[id number] 00:00:00 Test Item Value Reference Range Interpretation Comments Case (test code = Click ImageLink button N Case) for report. [facility] PELVIS > 14 [id number] 15:31:35 1. No acute or adverse changes.2. [...] with the size correlating well withdates.RL: 1105. [facility] 15:25[facility]00 Test Item Value Reference Range Interpretation Comments APPEARANCE (test code = Hazy Clear A 2290642510) COLOR (test code = Yellow Yellow 8611259852) PH (test code = 4.8-8.0 4188245417) SP GRAVITY (test code = 1.003-1.030 1556328269) GLU U QUAL (test code = Normal Normal 0987072097) BLOOD (test code = Negative Negative 0123989578) KETONES (test code = Negative Negative 5409324698) PROTEIN (test code = Negative Negative 2887-8) UROBILIN (test code = Normal Normal 2041203574) BILIRUBIN (test code = Negative Negative 6378116116) NITRITE (test code = Negative Negative 8975665387) LEUK SELENA (test code = Negative Negative 7320285822) RBC/HPF (test code = See_Comment [Autom ated message] 9178366851) The system [employer] generated this result transmitted ref erence range: 0 - 3 HP F. The reference range was not used to int erpret this result as normal/abnormal . WBC/HPF (test code = See_Comment [Autom ated message] 4008860919) The system [employer] generated this result transmitted ref erence range: 0 - 5 HP F. The reference range was not used to int erpret this result as normal/abnormal . BACTERIA (test code = Negative Negative 9228257467) MUCOUS (test code = Slight Negative LPF A 9460922992) SQ EPITH (test code = HPF 8053671484) Lab Interpretation (test Abnormal code = 12347-7) [facility]INALYSIS W SPECIFIC [id number] 19:05:00 Test Item Value Reference Range Interpretation [...] POCT U APPEAR (test code = 3267) [facility] URINALYSIS W SPECIFIC [id number] 19:05:00 Test Item Value Reference Range Interpretation [...] POCT U APPEAR (test code = 3267) [facility]PO[facility] W SPECIFIC [id number] 16:48:00 Test Item Value Reference Range Interpretation [...] POCT U APPEAR (test code = 3267) [facility] HospitalUS FIRST TRIMESTER LESS THAN 14 WEEKS WITH [id number] 14:45:42HISTORY: Vaginal bleeding. Rule out ectopic. TECHNIQUE: [...] in 2 weeks to confirm live IUP. Gamb, Radiant Results Inft User - 09/16/2019 8:46 [...] in 2 weeks to confirm live IUP. [facility] [id number] 14:03:00 Test Item Value Reference Range Interpretation Comments BETA HCG (test See_Comment [Automated m essage] code = The system [facility] h 0911436546) generated this result transmit tessie reference range : Non- fe male and male patien ts: <5 mIU/mL. The reference range was not used to interpret this result as normal/abnormal . KISHORE (test code Gestational Age ? ? = KISHORE) ?Range (mIU/mL) 1-10 ?Weeks ?14-90291633-16 Weeks ?53143-29453588-39 Weeks ?0197-62161031-09 Weeks ?3990-089904 Biotin has been reported to cause a negative bias, interpret results relative to patient's use of biotin. [facility] HospitalType and Screen - ONCE [id number] 13:58:38 Test Item Value Reference Range Interpretation Comments ABO & RH (test code A Negative Performe d at [facility] = 20) [facility] [place] [address] Free: [phone] A No. [id number] IAT (test code = Negative Performed a t [facility] 1185) Laboratory Serv [facility] [place], [place] [address]Toll Free: [phone] A No. [id number] [facility] Metabolic Panel (NA, K, CL, CO2, GLUCOSE, BUN, CREATININE, CA)2019-09-16 13:15:00 Test Item Value Reference Range Interpretation Comments NA (test code = 136 mmol/L 135-145 6105639558) K (test code = 3.7 mmol/L 3.5-5 4089052075) CL (test code = 105 mmol/L 98-108 0547114137) CO2 TOTAL (test code = 23 mmol/L 23-31 1500918884) AGAP (test code = 2-16 4241651699) BUN (test code = 12 mg/dL 7-23 7276070102) GLUCOSE (test code = 108 mg/dL 70-110 8456594497) CREATININE (test code = 0.45 mg/dL 0.5-1.04 L 8424652168) CALCIUM (test code = 9.3 mg/dL 8.6-10.6 8711629066) eGFR Calculation mL/min/1.73m2 (Non-) (test code = 2715362973) eGFR Calculation mL/min/1.73m2 () (test code = 6147582492) KISHORE (test code = KISHORE) Association of [...] tests). Lab Interpretation Abnormal (test code = 01342-1) [facility] HospitalHepatic Function Panel (ALB, T.PRO, BILI T, BU/BC, ALT, AST, ALK PHOS)2019-09-16 13:15:00 Test Item Value Reference Range Interpretation Comments TOTAL BILI (test code = 4933487765) 0.2 mg/dL 0.1-1.1 BILI UNCON (test code = 0006434760) 0.2 mg/dL 0.1-1.1 BILI CONJ (test code = 6758402970) 0.0 mg/dL 0-0.3 T PROTEIN (test code = 7616109295) 7.1 g/dL 6.3-8.2 ALBUMIN (test code = 5917204695) 4.0 g/dL 3.5-5 ALK PHOS (test code = 0465967024) 45 U/L 34-122 ALTv (test code = 1742-6) 36 U/L 5-35 H AST(SGOT) (test code = 4305144934) 27 U/L 13-40 Lab Interpretation (test code = Abnormal 95364-0) [facility] HospitalaPTT2020-01-22 13:12:00 Test Item Value Reference Range Interpretation Comments APTT Patient (test See_Comment [Automat ed code = 3173-2) message] The system which generated this result transmitted reference range : 23 - 38 Seconds . The reference range was not used to interpr et this result as normal/abnormal . KISHORE (test code = KISHORE) The [facility] patient population mean normal value for aPTT is 30 seconds. Lab Interpretation Normal (test code = 50521-6) [facility] HospitalProthrombin Time (PT) / [id number] 13:10:00 Test Item Value Reference Range Interpretation Comments PROTIME PATIENT (test See_Comment [Auto mated message] code = 5964-2) The system [facility] generated this result transmitted ref erence range: 12.0 - 1 4.7 Seconds. The re ference range was not u sed to interpret this result as normal/abnor mal. INR (test code = 6301-6) Nor mal INR <1.1; Warfarin Therap eutic range 2.0 to 3. 0 or 2.5 to 3.5, dep ending upon the indica tions. Lab Interpretation (test Normal code = 90750-8) [facility] HospitalCBC WITH [id number] 13:03:00 Test Item Value Reference Range Interpretation Comments WBC (test code = See_Comment [Automated message] 6690-2) The system [employer] generated this result transmitted ref erence range: 4.30 - 1 1.10 10*3/?L. The re ference range was not u sed to interpret this result as normal/abnor mal. RBC (test code = See_Comment [Automated message] 789-8) The system [employer] generated this result transmitted ref erence [...] RDW-SD (test code 41.5 fL 39-49.9 = 47978-0) RDW-CV (test code 13.0 % 12-15.5 = 788-0) PLT (test code = See_Comment [Automated message] 777-3) The system whic h generated this result transmitted ref erence range: 166 - 35 8 10*3/?L. The re ference range was not u sed to interpret this result as normal/abnor mal. MPV (test code = 11.2 fL 9.5-12.9 42803-9) NRBC/100 WBC (test See_Comment [Automat ed message] code = 2137117454) The syste m which generated this result transmitted ref erence range: 0.0 - 10 .0 /100 WBCs. The refer ence range was not u sed to interpret this result as normal/abnor mal. NRBC x10^3 (test <0.01 See_Comment [Automated message] code = 5891624880) The syste m which generated this result transmitted ref erence range: 10*3/?L. The reference range was not used to interpr et this result as normal/abnormal . GRAN MAT (NEUT) % 64.6 % (test code = 770-8) IMM GRAN % (test 0.60 % code = 5152924696) LYMPH % (test code 24.6 % = 736-9) MONO % (test code 7.9 % = 5905-5) EOS % (test code = 1.8 % 713-8) BASO % (test code 0.5 % = 706-2) GRAN MAT 6.67 10*3/uL 1.88-7.09 x10^3(ANC) (test code = 0368337117) IMM GRAN x10^3 0.06 10*3/uL 0-0.06 (test code = 7515914318) LYMPH x10^3 (test 2.54 10*3/uL 1.32-3.29 code = 731-0) MONO x10^3 (test 0.82 10*3/uL 0.33-0.92 code = 742-7) EOS x10^3 (test 0.19 10*3/uL 0.03-0.39 code = 711-2) BASO x10^3 (test 0.05 10*3/uL 0.01-0.07 code = 704-7) [facility] HospitalURINALYSIS2020-01-22 13:00:00 Test Item Value Reference Range Interpretation Comments APPEARANCE (test code = Hazy Clear A 7077838186) COLOR (test code = Yellow Yellow 8098445575) PH (test code = 4.8-8.0 6791831738) SP GRAVITY (test code = 1.003-1.030 5769914083) GLU U QUAL (test code = Normal Normal 2693350003) BLOOD (test code = 2+ Negative A 8848751689) KETONES (test code = Negative Negative 0128483514) PROTEIN (test code = Negative Negative 2887-8) UROBILIN (test code = Normal Normal 4639617388) BILIRUBIN (test code = Negative Negative 8683268580) NITRITE (test code = Negative Negative 8821624294) LEUK SELENA (test code = 500/uL Negative A 5276397735) RBC/HPF (test code = See_Comment H [Autom ated message] 9709941969) The system [employer] generated this result transmitted ref erence range: 0 - 3 HP F. The reference range was not used to int erpret this result as normal/abnormal . WBC/HPF (test code = See_Comment H [Autom ated message] 4109856183) The system [employer] generated this result transmitted ref erence range: 0 - 5 HP F. The reference range was not used to int erpret this result as normal/abnormal . BACTERIA (test code = Moderate Negative A 4786844817) MUCOUS (test code = Slight Negative LPF A 0209554629) SQ EPITH (test code = HPF 6179795983) Lab Interpretation (test Abnormal code = 76905-2) [facility] HospitalPOCT [id number] 12:35:00 Test Item Value Reference Range Interpretation Comments POCT PREG (test code = 1605) positive On board controls acceptable with present C Line (test code = 3574) POCT PREG LOT # (test code = 3575) [id number] POCT PREG TEST DATE (test 08-25-2020 code = 3576) Lab Interpretation (test code = Normal 52406-6) [facility] HospitalGC & CHLAMYDIA AMPLIFIED [id number] 18:57:00 Test Item Value Reference Range Interpretation Comments C. trachomatis Nucleic Acid (test Positive Negative A code = 05468-0) N. gonorrhoeae Nucleic Acid (test Negative Negative code = 02295-4) Lab Interpretation (test code = Abnormal 01492-1) [facility] HospitalRUBELLA SCREEN (JESSICA) [id number] 17:54:00 Test Item Value Reference Range Interpretation Comments Rubella screen IgG Positive Negative (test code = 9147572094) KISHORE (test code = KISHORE) Positive - Indicates the patient was exposed to Rubella through infection or vaccination.Negative - Indicates the patient could be susceptible to Rubella infection.Equivocal - A second specimen should be sent. [facility] Spine HospitalVZV ANTIBODY [id number] 17:54:00 Test Item Value Reference Range Interpretation Comments VZV IgG antibody Positive Negative (test code = 46890-9) KISHORE (test code = KISHORE) Positive - Indicates the patient was exposed to VZV through infection or vaccination.Negative - Indicates the patient could be susceptible to VZV infection.Equivocal - A second specimen should be sent for testing. [facility] HospitalGALV ONLY - SYPHILIS [id number] 15:14:00 Test Item Value Reference Range Interpretation Comments Syphilis IgG/IgM (test Non-reactive Non-reactive code = 43490-6) KISHORE (test code = KISHORE) Non-reactive - No serologic evidence of T. pallidum infection. Cannot exclude incubating or early syphilis. Submit a second specimen in 2-4 weeks if syphilis is clinically suspected. Equivocal - Further testing to follow. Reactive - Further testing to follow. Lab Interpretation (test Normal code = 72997-8) [facility] HospitalPRENATAL WORKUP, BLOOD [id number] 09:33:37 Test Item Value Reference Range Interpretation Comments ABO & RH (test code A NEGATIVE Performe d at [facility] = 20) Laboratory Serv [facility] [address]Barg Free: [phone] A No. [id number] IAT (test code = Negative Performed a t [facility] 1185) Laboratory Serv [facility]3 [facility] s [address]Uvfm Free: [phone] A No. [id number] [facility] HospitalHIV 1/2 AG-AB WITH [id number] 07:47:00 Test Item Value Reference Range Interpretation Comments HIV Negative Negative Semi-quantitative (test code = 87694-5) KISHORE (test code = Non-reactive for HIV-1 KISHORE) antigen and HIV-1/HIV-2 antibodies. ?No laboratory evidence of HIV infection. ?Repeat in 2-4 weeks if acute HIV infection is suspected. [facility] HospitalHEPATITIS B SURFACE [id number] 06:40:00 Test Item Value Reference Range Interpretation Comments HBsAg Semi-Quantitative (test code = Negative Negative 5195-3) [facility] HospitalCBC WITH [id number] 06:36:00 Test Item Value Reference Range Interpretation Comments WBC (test code = See_Comment H [Automated 2462-2) message] The sy stem which generated this result transmitted reference range : 4.30 - 11.10 10*3/?L. The reference range was not used to interpret this result as normal/abnormal . RBC (test code = See_Comment [Automated 179-8) message] The sy stem which generated this [...] RDW-SD (test code = 42.2 fL 39-49.9 96544-0) RDW-CV (test code = 13.2 % 12-15.5 788-0) PLT (test code = See_Comment [Automated 777-3) message] The sy stem which generated this result transmitted reference range : 166 - 358 10*3/ ?L. The reference r diandra was not used to interpret this result as normal/abnormal . MPV (test code = 12.1 fL 9.5-12.9 35274-0) NRBC/100 WBC (test See_Comment [Automat ed code = 5819731648) message] The system which generated this result transmitted reference range : 0.0 - 10.0 /100 WBCs. The refer ence range was not u sed to interpret th is result as normal/abnormal . NRBC x10^3 (test code <0.01 See_Comment [Auto mated = 6610972784) message] The s ystem which generated this result transmitted reference range : 10*3/?L. The reference range was not used to interpret this result as normal/abnormal . GRAN MAT (NEUT) % 67.8 % (test code = 770-8) IMM GRAN % (test code 0.30 % = 5364248663) LYMPH % (test code = 23.2 % 736-9) MONO % (test code = 6.5 % 5905-5) EOS % (test code = 1.8 % 713-8) BASO % (test code = 0.4 % 706-2) GRAN MAT x10^3(ANC) 7.68 10*3/uL 1.88-7.09 H (test code = 1131098837) IMM GRAN x10^3 (test 0.03 10*3/uL 0-0.06 code = 3614295066) LYMPH x10^3 (test code 2.63 10*3/uL 1.32-3.29 = 731-0) MONO x10^3 (test code 0.74 10*3/uL 0.33-0.92 = 742-7) EOS x10^3 (test code = 0.20 10*3/uL 0.03-0.39 711-2) BASO x10^3 (test code 0.05 10*3/uL 0.01-0.07 = 704-7) Lab Interpretation Abnormal (test code = 57482-8) [facility] W/O SPECIFIC [id number] 20:42:00 Test Item Value Reference Range Interpretation [...] code = 3257) Neg Negative - Negative [facility] HospitalPOCT [id number] 20:40:00 Test Item Value Reference Range Interpretation Comments POCT PREG (test code = 1605) Positive On board controls acceptable with C Yes Line (test code = 3574) POCT PREG LOT # (test code = 3575) POCT PREG TEST DATE (test code = 3576) [facility] HospitalPREGNANCY SCREEN, [id number] 20:01:00 Test Item Value Reference Range Interpretation Comments TEST URINE (BEAKER) (test Negative code = 583) [id number] 11:54:00 Test Item Value Reference Range Interpretation Comments RPR SCREEN (BEAKER) (test code = Nonreactive Nonreactive 420) HEMOGLOBIN [id number] 10:47:00 Test Item Value Reference Range Interpretation Comments HEMOGLOBIN A1C (BEAKER) (test code = 5.2 % 4.3-6.1 368) TSH/FREE T4 IF [id number] 06:03:00 Test Item Value Reference Range Interpretation Comments THYROID STIMULATING HORMONE 0.97 uIU/mL 0.35-4.94 (BEAKER) (test code = 772) VITAMIN B12 AND [id number] 06:03:00 Test Item Value Reference Range Interpretation Comments VITAMIN B12 (BEAKER) (test code = 384 pg/mL 213-816 774) FOLATE (BEAKER) (test code = 362) 11.5 ng/mL >=7.0 Effective 07/13/2014: Folate Reference Range ChangeNew: >=7.0 Previous: >=5.4HIV-1 ANTIGEN WITH HIV-1/2 [id number] 05:29:00 Test Item Value Reference Range Interpretation Comments HIV-1 ANTIGEN WITH HIV 1\\T\\2 Nonreactive Nonreactive ANTIBODY (2) (BEAKER) (test code = 2586) LIPID [id number] 05:18:00 Test Item Value Reference Range Interpretation [...] 130-159 High 160-189 Very High >=190BASIC METABOLIC [id number] 05:18:00 Test Item Value Reference Range Interpretation [...] S NOT APPLICABLE FOR DIALYSIS PATIEN TS. [id number] 05:18:00 Test Item Value Reference Range Interpretation [...] exclusion of thrombosis is within 95-100% range. [id number] 05:18:00 Test Item Value Reference Range Interpretation Comments MAGNESIUM (BEAKER) (test code = 2.1 mg/dL 1.6-2.6 627) CBC W/PLT COUNT & AUTO [id number] 05:09:00 Test Item Value Reference Range Interpretation [...] L 0.00-0.20 (test code = 417) 0.00 Notes Date/Time Note Provider Source 2023-05-11 17:00:17 2614-03-91V64:00:17Formatting Yoanna redding RN [facility] of this note might be different from the original.Pt given printed and verbal discharge instructions regarding lower abdominal pain and acute cystitis with hematuria, encouraged hydration,2 Prescriptions sent. Discussed antibiotic therapy and to take until all completed unless adverse reaction occurs - if occurs, discontinue medication and follow up with pcp/seek medical attentionPt verbalized understanding of instructions, pt awake alert oriented, resp reg unlabored, skin w/d, color appropriate for race, moves all ext well,pt encouraged to follow up with pcpAdvised to seek medical attention for new/prolonged/worsening of symptoms,Symptoms improved. No adverse reaction to meds given in ER noted upon dischargePIV d'cd, dressing to site, catheter in tact.Awake, alert oriented, resp reg unlabored, skin w/d, pt leaving amb with steady gait, in no apparent distress, [address]74-8Jwxrggugv department SwhgSI6193-29-46Z12:01:03[facility] department NoteTXT1.2.840.977469.1.13.104. 2.7.2.716849|[id number] [facility] dcve75671-2MshlQG100126057Umete waldemar Greenberg RN[address] YanmWhrwywqmpQtwdhpxelEUJD10491 13837LXJTBEUMKYNJTAOOWTROFG0162 -09-16T17:01:031.2.840.087044.1 .72.3.15|1.2.840.754390.1.13.10 4.2.7.2.727879_[id number] 2023-05-11 16:57:00 2602-54-77R07:57:00Formatting [facility] of this note might be different from the original.Nurse went to go check on patient antibiotics to remove IV and upon checking patient removed IV herself. Catheter intact. 33062-9Dkqhjjdes department DnunLO1892-96-20I60:59:51[facility] department NoteTXT1.2.840.612935.1.13.104. 2.7.2.111771|[id number] ble for patient gilx18642-8IezeGVLKJJKNTM[address] YaasScarkicsyCkmmllcrcGSDR95236 10159WBNJGTYGFRCILYJZIYRMSF3002 -09-16T16:59:511.2.840.707739.1 .72.3.15|1.2.840.606478.1.13.10 4.2.7.2.727879_[id number] 2023-05-11 14:56:07 9406-65-68L36:56:07Formatting Gold Cochran [facility] of this note might be different from the original.Patient states: "I've been having abdominal pain for 2 weeks (points to RLQ). I took a test and it was positive. Then I started spotting and some gooey stuff came out. Then I took a test again and it was negative. I've been taking azos because I thought I had a UTI" G 5 P 4 A 1 Pmhx: asthma 81059-2Ctgqatyha department Triage gbruGY6709-28-74R93:58:08[facility] department Triage noteTXT1.2.840.084245.1.13.104. 2.7.2.071414|[id number] [facility] nkny56328-5Vixofxkyy department SuglEP932976793Ldtxv M Cruz [facility]PRES[facility] - [address] GkraJktnhanqdLacbnpykcZGSQ98609 78218BKLIRGKYCISUKCNVKHUMCB5913 -09-16T14:58:081.2.840.080403.1 .72.3.15|1.2.840.833653.1.13.10 4.2.7.2.727879_[id number] 2023-05-11 14:48:00 2089-09-01U19:48:00Formatting [facility] of this note is different from the original.[facility] Emergency Department NotePatient Name: Lauren Ferrell of : 1990 33 year old femaleTreatment Room: [facility]/MN6Fypooeo Record Number: [id number] Care Physician: Josie WoodPatient Escorted by: Self [9]Mode of Arrival: Personal means [1]EMS 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 No dysuria. Patient states she took a test yesterday and it was positive and today it was negative. Denies GLEASON, dizziness, fevers, CP, SOB, vomiting, diarrhea. Hx of tubal ligation. Had some vaginal spotting yesterday but it's gone now. Past Medical History/Immunizations:Past Medical History: Diagnosis Date Anemia pt states that she does not recall ever being diagnosed Anxiety 2018 of father; resolved. Asthma Childhood Blood dyscrasia Bradycardia Chronic endometritis 09/18/2016 Depression 2017 of father; resolved. Diabetes Resolved Endometriosis 2017 Irregular periods/menstrual cycles 03/25/2017 Migraines 12/2016 Rh negative status during in first trimester, antepartum 05/31/2015 STD (sexually transmitted disease) 2019 Chlamydia/treated Von Willebrand disease diagnosed at age 8 Tetanus received in last 5 years: UnknownChildhood immunizations: Up-to-date Allergies:No Known AllergiesPast Social History:Tobacco Use Former; Cigarettes: 03/25/2006 - 03/25/2014; 1.00 packs/day; Types: Cigars Smokeless Tobacco: Never used smokeless tobacco. Alcohol Use No. Drug Use No. Sexual Activity Sexually active; Partners: Male; Control/Protection: None. Comments: last sexual intercourse Past Surgical History:Past Surgical History: Procedure Laterality Date APPENDECTOMY at age 13 DILATION AND CURETTAGE (SHX) 2011 EYE SURGERY Cyst removal TONSILLECTOMY WITH ADENOIDECTOMY Review of Systems: Review of Systems Constitutional: Negative for activity change, appetite change, chills, diaphoresis, fatigue, fever, unexpected weight change, weight gain and weight loss. HENT: Negative for congestion, dental problem, drooling, ear discharge, ear pain, facial swelling, hearing loss, mouth sores, nosebleeds, postnasal drip, rhinorrhea, sinus pressure, sneezing, sore throat, tinnitus, trouble swallowing and voice change. Eyes: Negative for photophobia, pain, discharge, redness, itching and visual disturbance. Respiratory: Negative for apnea, cough, choking, chest tightness, shortness of breath, wheezing and stridor. Breasts: Negative for discharge, mass, pain and unequal size. Cardiovascular: Negative for chest pain, palpitations and leg swelling. Gastrointestinal: Positive for abdominal pain. Negative for abdominal distention, anal bleeding, blood in stool, constipation, diarrhea, nausea, rectal pain and vomiting. Genitourinary: Positive for frequency. Negative for bladder incontinence, dysuria, urgency, polyuria, hematuria, flank pain, decreased urine volume, vaginal bleeding, vaginal discharge, enuresis, difficulty urinating, genital sores, vaginal pain, menstrual problem, pelvic pain, dyspareunia and nocturia. Musculoskeletal: Negative for arthralgias, back pain, gait problem, joint swelling, myalgias, neck pain and neck stiffness. Skin: Negative for color change, pallor, rash and wound. Neurological: Negative for dizziness, tremors, seizures, syncope, facial asymmetry, speech difficulty, weakness, light-headedness, numbness and headaches. Psychiatric/Behavioral: Negative for agitation, behavioral problems, confusion, decreased concentration, dysphoric mood, hallucinations, self-injury, sleep disturbance and suicidal ideas. The patient is not nervous/anxious and is not hyperactive. Hematological: Negative for adenopathy, cold intolerance and heat intolerance. Does not bruise/bleed easily. Endocrine: Negative for goiter, hair loss, cold intolerance, heat intolerance, polydipsia, polyphagia, polyuria, weight gain and weight loss. Physical Exam: ED Triage Vitals [05/11/23 1458] Weight 72.6 kg (160 lb) Actual or estimated Estimated by patient/family report Height 1.549 m (5' 1") BP 105/72 Pulse 83 Resp 16 Temp 37.2 ?C (98.9 ?F) Temp source Oral SpO2 98 % Measured on Room air Physical ExamVitals and nursing note reviewed. Constitutional: General: She is not in acute distress. Appearance: Normal appearance. She is normal weight. She is not ill-appearing, toxic-appearing or diaphoretic. HENT: Head: Normocephalic and atraumatic. Right Ear: Tympanic membrane and ear canal normal. There is no impacted cerumen. Left Ear: Tympanic membrane and ear canal normal. There is no impacted cerumen. Nose: Nose normal. No congestion or rhinorrhea. Mouth/Throat: Mouth: Mucous membranes are dry. Pharynx: Oropharynx is clear. No oropharyngeal exudate or posterior oropharyngeal erythema. Eyes: General: No scleral icterus. Right eye: No discharge. Left eye: No discharge. Extraocular Movements: Extraocular movements intact. Conjunctiva/sclera: Conjunctivae normal. Pupils: Pupils are equal, round, and reactive to light. Neck: Vascular: No carotid bruit. Cardiovascular: Rate and Rhythm: Normal rate and regular rhythm. Pulses: Normal pulses. Heart sounds: Normal heart sounds. No murmur heard. No friction rub. No gallop. Pulmonary: Effort: Pulmonary effort is normal. No respiratory distress. Breath sounds: Normal breath sounds. No stridor. No wheezing, rhonchi or rales. Chest: Chest wall: No tenderness. Abdominal: General: Abdomen is flat. Bowel sounds are normal. There is no distension. Palpations: Abdomen is soft. There is no mass. Tenderness: There is abdominal tenderness. There is right CVA tenderness. There is no left CVA tenderness, guarding or rebound. Hernia: No hernia is present. Comments: + RLQ tenderness to palpation. Musculoskeletal: General: No swelling, tenderness, deformity or signs of injury. Normal range of motion. Cervical back: Normal range of motion and neck supple. No rigidity or tenderness. Right lower leg: No edema. Left lower leg: No edema. Lymphadenopathy: Cervical: No cervical adenopathy. Skin: General: Skin is warm and dry. Capillary Refill: Capillary refill takes less than 2 seconds. Coloration: Skin is not jaundiced or pale. Findings: No bruising, erythema, lesion or rash. Neurological: General: No focal deficit present. Mental Status: She is alert and oriented to person, place, and time. Mental status is at baseline. Cranial Nerves: No cranial nerve deficit. Sensory: No sensory deficit. Motor: No weakness. Coordination: Coordination normal. Gait: Gait normal. Deep Tendon Reflexes: Reflexes normal. Psychiatric: Mood and Affect: Mood normal. Behavior: Behavior normal. Thought Content: Thought content normal. Judgment: Judgment normal. Radiology:CT ABDOMEN PELVIS W CONTRAST Preliminary Result EXAM: CT ABDOMEN PELVIS W CONTRAST HISTORY: 33 years-old Female; Provided indication: Abdominal abscess/infection suspected. TECHNIQUE: Contiguous axial imaging from the level of the lung bases through the proximal thighs was performed with intravenous contrast. Coronal and sagittal reconstructions were obtained. COMPARISON: Ultrasound Abdomen Limited 09/04/2019. FINDINGS: LOWER THORAX: The lung bases are clear. LIVER: The liver is normal in size and contour. No focal hepatic lesion is seen. GALLBLADDER AND BILIARY TREE: The gallbladder appears unremarkable. No radiopaque gallstones are seen. No intra or extrahepatic biliary ductal dilation is visualized. SPLEEN: The spleen appears unremarkable. PANCREAS: No ductal dilation or masses are visualized. ADRENAL GLANDS: No adrenal masses are seen. KIDNEYS: No hydronephrosis, stones, or suspicious masses are visualized. PELVIS/BLADDER: The uterus is mildly enlarged measuring 11.1 x 5.8 x 6.3 cm (AP x TR x CC). The bladder is adequately distended and appears unremarkable. GI TRACT: No dilation or bowel wall thickening is seen. Postsurgical changes of appendectomy are noted. 2 high density objects within the rectum and small bowel are likely ingested material (2:89 and 2:100). PERITONEUM AND RETROPERITONEUM: No intra-abdominal free air or fluid collection is visualized. LYMPH NODES: No lymphadenopathy. VESSELS: The vessels appear unremarkable. BONES AND SOFT TISSUES: No suspicious lytic or sclerotic bony lesions are present. IMPRESSION No acute abdominopelvic finding. Status post appendectomy. Mildly enlarged uterus. Preliminary Report Dictated by Resident: Josse Younger Lab Results:Lab Results URINALYSIS - Abnormal Result Value Ref Range APPEARANCE Cloudy (*) Clear COLOR Smita (*) Yellow PH 6.0 4.8 - 8.0 SP GRAVITY 1.025 1.003 - 1.030 GLU U QUAL Normal Normal BLOOD Negative Negative KETONES Negative Negative PROTEIN Negative Negative UROBILIN 4.0 mg/dL (*) Normal BILIRUBIN Negative Negative NITRITE Positive (*) Negative LEUK SELENA 250/uL (*) Negative RBC/HPF 10 (*) 0 - 3 HPF WBC/HPF 36 (*) 0 - 5 HPF BACTERIA Few (*) Negative MUCOUS Moderate (*) Negative LPF SQ EPITH 74 HPF CBC WITH DIFF - Abnormal WBC 8.32 4.30 - 11.10 10*3/?L RBC 4.26 3.93 - 5.25 10*6/?L HGB 13.6 11.6 - 15.0 g/dL HCT 39.0 35.7 - 45.2 % MCV 91.5 80.6 - 95.5 fL MCH 31.9 25.9 - 32.8 pg MCHC 34.9 31.6 - 35.1 g/dL RDW-SD 43.8 39.0 - 49.9 fL RDW-CV 13.2 12.0 - 15.5 % PLT 238 166 - 358 10*3/?L MPV 10.9 9.5 - 12.9 fL NRBC/100 WBC 0.0 0.0 - 10.0 /100 WBCs NRBC x10^3 <0.01 10*3/?L GRAN MAT (NEUT) % 60.4 % IMM GRAN % 0.20 % LYMPH % 24.8 % MONO % 7.9 % EOS % 6.1 % BASO % 0.6 % GRAN MAT x10^3(ANC) 5.02 1.88 - 7.09 10*3/uL IMM GRAN x10^3 <0.03 0.00 - 0.06 10*3/uL LYMPH x10^3 2.06 1.32 - 3.29 10*3/uL MONO x10^3 0.66 0.33 - 0.92 10*3/uL EOS x10^3 0.51 (*) 0.03 - 0.39 10*3/uL BASO x10^3 0.05 0.01 - 0.07 10*3/uL POCT TEST - Normal POCT PREG Negative On board controls acceptable with C Line Yes POCT PREG LOT # [id number] POCT PREG TEST DATE 08-28-2024 HEPATIC FUNCTION PANEL (88455) (ALB,T.PRO,BILI T,BU/BC,ALT,AST,ALK PHOS) - Normal TOTAL BILI 0.5 0.1 - 1.1 mg/dL BILI UNCON 0.4 0.1 - 1.1 mg/dL BILI CONJ 0.0 0.0 - 0.3 mg/dL T PROTEIN 7.1 6.3 - 8.2 g/dL ALBUMIN 4.1 3.5 - 5.0 g/dL ALK PHOS 45 34 - 122 U/L ALTv 21 5 - 35 U/L AST(SGOT) 23 13 - 40 U/L BASIC METABOLIC PANEL (NA, K, CL, CO2, GLUCOSE, BUN, CREATININE, CA) NA 136 135 - 145 mmol/L K 4.0 3.5 - 5.0 mmol/L CL 102 98 - 108 mmol/L CO2 TOTAL 29 23 - 31 mmol/L AGAP 5 2 - 16 BUN 16 7 - 23 mg/dL GLUCOSE 97 70 - 110 mg/dL CREATININE 0.53 0.50 - 1.04 mg/dL CALCIUM 9.0 8.6 - 10.6 mg/dL eGFR 133.7 mL/min/1.73m2 URINE CULTURE EKG:If EKG completed, see Procedure Note. Orders and Treatments:Orders Placed This Encounter Procedures CT ABDOMEN PELVIS W CONTRAS T POCT TEST URINALYSIS BASIC METABOLIC PANEL (NA, K, CL, CO2, GLUCOSE, BUN, CREATININE, CA) HEPATIC FUNCTION PANEL (31809) (ALB,T.PRO,BILI T,BU/BC,ALT,AST,ALK PHOS) CBC WITH DIFF URINE CULTURE Orders Placed This Encounter Medications iopamidol (ISOVUE 370-500 mL) injection 75 mL cefTRIAXone (ROCEPHIN) 1,000 mg in NaCl 0.9% (NS) 100 mL MINI-BAG First Provider Eval:ED Events Date/Time Event User Comments 05/11/23 1449 First Provider Evaluation GERMAN ZHONG DO -- 05/11/23 1501 Medical Screening Begins GERMAN ZHONG DO -- No notes of EC Admission Criteria type on file.ED COURSEDiagnosis/Impression as of 05/11/23 1619 Lower abdominal pain Acute cystitis with hematuria Procedures: ProceduresMDM:Medical Decision MakingPatient here for RLQ abdominal pain with radiation to the back for 1 week.+ urinary frequency. No dysuria. Patient states she took a test yesterday and it was positive and today it was negative. Denies GLEASON, dizziness, fevers, CP, SOB, vomiting, diarrhea. Hx of tubal ligation. Had some vaginal spotting yesterday but it's gone now. Amount and/or Complexity of Data ReviewedLabs: ordered. Decision-making details documented in ED Course. Details: UA positive for UTI. Radiology: ordered. Decision-making details documented in ED Course. Details: CT abdomen/pelvis: Impression: No acute abdominopelvic finding. Status post appendectomy. Mildly enlarged uterusDiscussion of management or test interpretation with external provider(s): Patient is feeling better. Ok to go home. RiskPrescription drug management. Flowsheet Documentation: Scoring Tools: No data recorded Dx: Acute cystitis. Disposition/Condition:Discharge d home. Bisi Zhong D.O.EM PhysicianRTI Billing ID #[id number] Bisi Zhong DO05/11/23 1617 [id number] Emergency department [id number]:17:50Physic mario Emergency department [id number] [facility] [id number] department NoteLNUT[address]GalvestonGal[place] [id number] -[id number]:[id number]
[2023-07-27 21:53] LABS: Hematocrit 40.4 % (36.0-45.0); MCV 91.5 fL (80-100); MPV 8.4 fL (7.6-11.3); Platelets 326 thou/uL (152-406); RBC Red Blood Cell Count 4.41 M/uL (3.86-4.86)
[2023-07-27] MEDS ORDERED: ONDANSETRON 4 MG/2 ML VIAL ONE (21:57)
[2023-07-27] MEDS ORDERED: NA CHLORIDE 0.9% 1,000 ML ONE (21:57)
[2023-07-27] MEDS ORDERED: MORPHINE 4 MG/ML SYR ONE (21:57)
[2023-07-27 22:00] LABS: Specific Gravity 1.029 (1.005-1.030)
[2023-07-27 22:03] LABS: Specific Gravity 1.017 (1.005-1.030); Urine Bacteria 20-50 /HPF (<20); Urine Bilirubin NEGATIVE (Negative); Urine Blood 3+ (OVER) (Negative); Urine Clarity Extremely Turbid (Clear); Urine Color Light-Orange (Yellow); Urine Crystals Unidentified Moderate /HPF (None Seen); Urine Glucose NEGATIVE (Negative); Urine Mucus 4+ /HPF (None Seen); Urine Protein 1+ (Negative); Urine RBC >50 /HPF (None Seen); Urine Urobilinogen Normal (Normal); Urine WBC Clump Many /HPF (None Seen)
[2023-07-27 22:07] LABS: Albumin 3.4 g/dL (3.4-5.0); Bilirubin Total 0.2 mg/dL (0.2-1.0); Potassium 3.5 mEq/L (3.5-5.1); Protein, Total 7.3 g/dL (6.4-8.2)
--- NOTE | 2023-07-27 22:35 | RAD REPORT ---
EXAM DESCRIPTION: CT - Stone Protocol - 07/27/2023 10:23 pm CLINICAL HISTORY: Flank pain. FLANK PAIN COMPARISON: <Comparisons> TECHNIQUE: Axial images were obtained without oral or IV contrast. Lack of contrast limits solid org an and vascular assessment. The [id number] spans the entirety of the system partially obscuring uppermost abdomen and lung bases. Coronal reformatted images were obtained and reviewed. All CT scans are performed using dose optimization technique as appropriate and may include automated exposure control or mA/KV adjustment according to patient size. FINDINGS: The lower lung umanzor are clear. Imaged portions of the liver and spleen show no suspicious findings on non-contrast imaging. The panc reas and adrenal glands are normal. No pathologic lymphadenopathy in the abdomen or pelvis. No urinary tract stones or obstructive uropathy. No bowel obstruction, free air, free fluid or abscess. The appendix is not identified as a discrete s tructure, however, no secondary findings of appendicitis are identified. Moderate stool is retained t hroughout the colon. No significant bony abnormality. IMPRESSION: No urinary tract stones or obstructive uropathy.
--- NOTE | 2023-07-27 22:55 | ER ---
Nurse's Notes [facility] Name: Lauren Polanco Age: 33 yrs Sex: Female : 1990 Arrival Date: 07/27/2023 Time: 20:32 Bed 13 Private MD: Diagnosis: UTI/ Urinary tract infection, site not specified Presentation: 07/27 20:49 Chief complaint: Patient states: Pt reports burning with urination and urinary cm10 frequency onset 1 month ago. Pt also reports left sided flank pain that radiates to her LLQ. Coronavirus screen: Vaccine status: Patient reports being unvaccinated. Client denies travel out of the [place] in the last 14 days. Ebola Screen: Patient denies travel to an Ebola-affected area in the 21 days before illness onset. No symptoms or risks identified at this time. Initial Sepsis Screen: Does the patient meet any 2 criteria? No. Patient's initial sepsis screen is negative. Does the patient have a suspected source of infection? No. Patient's initial sepsis screen is negative. Risk Assessment: Do you want to hurt yourself or someone else? Patient reports no desire to harm self or others. Onset of symptoms was July 27, 2023. 20:49 Method Of Arrival: Ambulatory cm10 20:49 Acuity: YANICK 3 cm10 Historical: - Allergies: 20:51 Macrobid; cm10 - PMHx: 20:51 Anxiety; MRSA; [place]; cm10 - PSHx: 20:51 Appendectomy; Tonsillectomy; cm10 - Immunization history:: Adult Immunizations unknown. - Social history:: Smoking status: unknown. Assessment: 21:58 General: Appears uncomfortable, Behavior is calm, cooperative, appropriate for age. la4 Pain: Complains of pain in groin Pain does not radiate. Pain currently is 8 out of 10 on a pain scale. Quality of pain is described as sharp, Pain began Is continuous, Alleviated by rest, Aggravated by urination. Neuro: No deficits noted. Pride Agitation-Sedation Scale (RASS): 0 - Alert and Calm Level of Consciousness is awake, alert, obeys commands, Oriented to person, place, time, situation, Appropriate for age. Cardiovascular: No deficits noted. Reports None Capillary refill < 3 seconds is brisk Rhythm is regular. Respiratory: No deficits noted. Airway is patent Trachea midline Respiratory effort is even, unlabored. GI: No deficits noted. No signs and/or symptoms were reported involving the gastrointestinal system. Bowel sounds present X 4 quads. Abd is soft and non tender X 4 quads. : Urine is cloudy, Reports pain in suprapubic area urinary frequency. Vital Signs: 20:49 BP 121 / 78; Pulse 121; Resp 18; Temp 97.3; Pulse Ox 100% on R/A; Weight 65.77 kg; cm10 Height 5 ft. 1 in. ; Pain 10/10; 20:49 Body Mass Index 27.40 (65.77 kg, 154.94 cm) cm10 20:49 Pain Scale: Adult cm10 ED Course: 20:37 Patient arrived in ED. kj1 20:39 Latoya Puentes FNP-C is PHCP. kb 20:39 Mark Anthony Whitley DO is Attending Physician. kb 20:51 Triage completed. cm10 20:52 Arm band placed on Patient placed in waiting room. cm10 21:37 Ama Galeas, RN is Primary Nurse. la4 21:37 CBC with Diff Sent. la4 21:37 CMP Sent. la4 21:37 Test, Urine Sent. la4 21:37 Urinalysis w/ reflexes Sent. la4 22:24 CT Stone Protocol In Process Unspecified. EDMS Administered Medications: 21:54 Drug: NS 0.9% IV 1000 ml IV at 1000 ml once Route: IV; Rate: 1000 ml; Site: right la4 forearm; 21:54 Drug: morphine IVP or IV 4 mg IVP once over 4 mins Route: IVP; Infused Over: 4 mins; la4 Site: right forearm; 21:54 Drug: Ondansetron IVP 4 mg IVP once; over 2 minutes Route: IVP; Site: right forearm; la4 23:46 Drug: Rocephin IV 1 grams IV at calculated rate once; Given slow IV push per pharmacy la4 instructions Route: IV; Rate: calculated rate; Site: right forearm; 07/28 00:02 Drug: Ketorolac IVP 15 mg IVP once Route: IVP; Site: right forearm; la4 00:08 Follow up: Response: No adverse reaction la4 Medication: 07/27 21:58 VIS not applicable for this client. la4 Outcome: 22:55 Discharge ordered by MD. ewing 07/28 00:18 Patient left the ED. la4 Signatures: Dispatcher [employer] Latoya Mahmood, Phoebe Lomas kj1 Shira Chavez, RN RN cm10 Ama Galeas RN RN la4
--- NOTE | 2023-07-27 22:55 | EDPHYS ---
Physician Documentation [facility] Name: Lauren Polanco Age: 33 yrs Sex: Female : 1990 Arrival Date: 07/27/2023 Time: 20:32 Bed 13 Private MD: ED Physician Mark Anthony Whitley HPI: 07/27 22:42 This 33 yrs old Female presents to ER via Ambulatory with complaints of Possible Kidney kb Stone. 22:42 Patient is a 33-year-old female who presents for burning with urination and urinating kb small amounts that started 1 week ago and is gotten worse. States she did have pain in the left flank that radiated around to abdomen. Denies hematuria.. Historical: - Allergies: 20:51 Macrobid; cm10 - PMHx: 20:51 Anxiety; MRSA; [place]; cm10 - PSHx: 20:51 Appendectomy; Tonsillectomy; cm10 - Immunization history:: Adult Immunizations unknown. - Social history:: Smoking status: unknown. ROS: 22:42 Constitutional: Negative for fever, chills, and weight loss, kb 22:42 : Positive for urinary symptoms, flank pain, urinary frequency, small amounts, burning with urination, 22:42 All other systems are negative, kb Exam: 22:42 Head/Face: Normocephalic, atraumatic. ENT: Moist Mucous membranes Cardiovascular: kb Regular rate Respiratory: Respirations even and unlabored. No increased work of breathing. Talking in full sentences Abdomen/GI: Soft, non-tender. No distention Back: No spinal tenderness. No costovertebral tenderness. Full range of motion. Skin: Warm, dry with normal turgor. Normal color. MS/ Extremity: Pulses equal, no cyanosis. Neurovascular intact. Full, normal range of motion. Neuro: Awake and alert, GCS 15, oriented to person, place, time, and situation. Moves all extremities. Normal gait. 22:42 Constitutional: The patient appears alert, awake, uncomfortable, Vital Signs: 20:49 BP 121 / 78; Pulse 121; Resp 18; Temp 97.3; Pulse Ox 100% on R/A; Weight 65.77 kg; cm10 Height 5 ft. 1 in. ; Pain 10/10; 20:49 Body Mass Index 27.40 (65.77 kg, 154.94 cm) cm10 20:49 Pain Scale: Adult cm10 MDM: 20:39 Patient medically screened. kb 22:42 Differential diagnosis: UTI, Kidney stone, pyelonephritis. Data reviewed: vital signs, kb nurses notes. Counseling: I had a detailed discussion with the patient and/or guardian regarding the historical points, exam findings, and any diagnostic results supporting the discharge/admit diagnosis, lab results, radiology results, the need for outpatient follow up, a family practitioner, to return to the emergency department if symptoms worsen or persist or if there are any questions or concerns that arise at home. 07/27 20:55 Order name: Urinalysis w/ reflexes; Complete Time: 22:06 cm10 07/27 20:55 Order name: Test, Urine; Complete Time: 22:06 kb 07/27 20:55 Order name: CBC with Diff; Complete Time: 22:13 kb 07/27 20:55 Order name: CMP; Complete Time: 22:13 kb 07/27 22:06 Order name: CT Stone Protocol; Complete Time: 22:35 kb 07/27 20:55 Order name: IV Saline Lock; Complete Time: 21:37 kb 07/27 20:55 Order name: Labs collected and sent; Complete Time: 21:37 kb Administered Medications: 21:54 Drug: NS 0.9% IV 1000 ml IV at 1000 ml once Route: IV; Rate: 1000 ml; Site: right la4 forearm; 21:54 Drug: morphine IVP or IV 4 mg IVP once over 4 mins Route: IVP; Infused Over: 4 mins; la4 Site: right forearm; 21:54 Drug: Ondansetron IVP 4 mg IVP once; over 2 minutes Route: IVP; Site: right forearm; la4 23:46 Drug: Rocephin IV 1 grams IV at calculated rate once; Given slow IV push per pharmacy la4 instructions Route: IV; Rate: calculated rate; Site: right forearm; 07/28 00:02 Drug: Ketorolac IVP 15 mg IVP once Route: IVP; Site: right forearm; la4 00:08 Follow up: Response: No adverse reaction la4 Disposition: 07/27 23:22 I was immediately available on-site in the Emergency Department for consultation in the tx3 care of the patient. Disposition Summary: 07/27/23 22:55 Discharge Ordered Notes: Location: Home kb Condition: Stable kb Diagnosis - UTI/ Urinary tract infection, site not specified kb Followup: kb - With: Emergency Department - When: As needed - Reason: Worsening of condition Followup: kb - With: Private Physician - When: 2 - 3 days - Reason: Recheck today's complaints, Continuance of care, Re-evaluation by your physician Discharge Instructions: - Discharge Summary Sheet kb - Urinary Tract Infection, Adult, [id number] kb Forms: - Medication Reconciliation Form kb - Thank You Letter kb - Antibiotic Education kb - Prescription Opioid Use kb - Patient Portal Instructions kb - Leadership Thank You Letter kb Prescriptions: - Augmentin 875-125 mg Oral Tablet - take 1 tablet ORAL route every 12 hours for 10 days; 20 tablet; Refills: 0, kb Product Selection Permitted Signatures: Dispatcher [employer] EDMS Latoya Puentes, TATO KENNEDYP-Mark Anthony Enrique DO DO ms3 Shira Chavez, RN RN cm10 Ama Galeas RN RN la4
[2023-07-27] MEDS ORDERED: CEFTRIAXONE 1000 MG/VIAL ONE (23:06)
[2023-07-27] MEDS ORDERED: NA CHLORIDE 0.9% 50 ML ONE (23:06)
[2023-07-28] MEDS ORDERED: KETOROLAC 30 MG/ML INJ ONE (00:04)
[2023-07-28 00:40] VITALS: BP 121/78; TEMP 97.3; O2SAT 100
== END 2023-07-28 00:18 | disposition home or self-care (01) ==
LOC: ER 20:32
DX: N39.0 Urinary tract infection, site not specified (principal); Z87.442 Personal history of urinary calculi
CPT/HCPCS: 36415; 74176; 76377; 80053; 81001; 81025; 85025; 96374; 96375; 99284; J0696; J2405; J7030

== ENCOUNTER → 2023-09-05 | Emergency (ER) | payer OTHER, SELFPAY ==
[~2023-09-05] MED LIST: KETOROLAC 30 MG/ML INJ ONE
[2023-09-05 21:30] LABS: Hematocrit 38.1 % (36.0-45.0); Lymphocytes % 21.3 % (15.3-44.8); MCV 92.1 fL (80-100); MPV 8.1 fL (7.6-11.3); Platelets 291 thou/uL (152-406); RBC Red Blood Cell Count 4.14 M/uL (3.86-4.86)
[2023-09-05 21:46] LABS: Albumin 3.2 g/dL (3.4-5.0); Bilirubin Total 0.2 mg/dL (0.2-1.0); Potassium 3.4 mEq/L (3.5-5.1); Protein, Total 7.1 g/dL (6.4-8.2)
--- NOTE | 2023-09-05 23:51 | EDPHYS ---
Physician Documentation [facility] Name: Lauren Polanco Age: 33 yrs Sex: Female : 1990 Arrival Date: 09/05/2023 Time: 20:20 Bed 4 Private MD: ED Physician Joe Florez HPI: 09/05 21:16 This 33 yrs old Female presents to ER via Wheelchair with complaints of Abdominal Pain. rt 21:16 Patient presents to the ED with abdominal pain, reported rectal prolapse. The patient rt states that she was going to have surgery on an anal fissure she has had a rectal prolapse which she pushed in. She reports that today, she developed an abdominal pain, bloating. States that she has been having infrequent, hard bowel movements. Denies other acute complaints, symptoms are moderate in severity, no other aggravating or alleviating factors.. 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 Flu vaccine is not up to date. - Social history:: Smoking status: Reported history of juuling and/or vaping. Patient/guardian denies using alcohol, street drugs, stopped cocaine 1 week ago. - Family history:: not pertinent. ROS: 21:16 Constitutional: Negative for fever, chills, and weight loss, Cardiovascular: Negative rt for chest pain, palpitations, and edema, Respiratory: Negative for shortness of breath, cough, wheezing, and pleuritic chest pain, MS/Extremity: Negative for injury and deformity, Skin: Negative for injury, rash, and discoloration, Neuro: Negative for headache, weakness, numbness, tingling, and seizure, Psych: Negative for depression, anxiety, suicide ideation, homicidal ideation, and hallucinations, 21:16 Abdomen/GI: Positive for abdominal pain, rectal pain, Exam: 21:16 Constitutional: This is a well developed, well nourished patient who is awake, alert, rt and in no acute distress. Head/Face: Normocephalic, atraumatic. Chest/axilla: Normal chest wall appearance and motion. Nontender with no deformity. No lesions are appreciated. Cardiovascular: Regular rate and rhythm with a normal S1 and S2. No gallops, murmurs, or rubs. Normal PMI, no JVD. No pulse deficits. Respiratory: Lungs have equal breath sounds bilaterally, clear to auscultation and percussion. No rales, rhonchi or wheezes noted. No increased work of breathing, no retractions or nasal flaring. Skin: Warm, dry with normal turgor. Normal color with no rashes, no lesions, and no evidence of cellulitis. MS/ Extremity: Pulses equal, no cyanosis. Neurovascular intact. Full, normal range of motion. Neuro: Awake and alert, GCS 15, oriented to person, place, time, and situation. Cranial nerves II-XII grossly intact. Motor strength 5/5 in all extremities. Sensory grossly intact. Cerebellar exam normal. Normal gait. Psych: Awake, alert, with orientation to person, place and time. Behavior, mood, and affect are within normal limits. 21:16 Abdomen/GI: Patient with mild abdominal distention with mild tenderness diffusely, no rebound, guarding. Rectal exam was chaperoned by ZOË Castillo. Small external hemorrhoid present, no rectal prolapse, anal fissure noted. Mild tenderness on rectal exam, no palpable internal hemorrhoids, Vital Signs: 20:42 BP 117 / 81; Pulse 69; Resp 16; Temp 98.2(O); Pulse Ox 100% on R/A; Weight 72.57 kg [facility] (R); Height 5 ft. 2 in. (R); Pain 10/10; 21:30 BP 109 / 71; Pulse 67; Resp 16; Pulse Ox 99% ; vc1 22:00 BP 108 / 71; Pulse 65; Resp 16; Pulse Ox 100% ; vc1 23:30 BP 96 / 61; Pulse 65; Resp 18 S; Pulse Ox 98% on R/A; as6 20:42 Body Mass Index 29.26 (72.57 kg, 157.48 cm) [facility] 20:42 Pain Scale: Adult [facility] MDM: 20:53 Patient medically screened. rt 09/06 04:10 Differential Diagnosis. Differential Diagnosis Rectal prolapse, constipation, fistula, rt diverticulitis. Data reviewed: vital signs, nurses notes, lab test result(s), radiologic studies. I considered the following discharge prescriptions or medication management in the emergency department Medications were administered in the Emergency Department. See MAR. Independent interpretation of the following test(s) in the Emergency Department CT Scan: My interpretation is Significant stool burden cinema interpretation of CT scan images. Counseling: I had a detailed discussion with the patient and/or guardian regarding the historical points, exam findings, and any diagnostic results supporting the discharge/admit diagnosis, lab results, radiology results, the need for outpatient follow up, to return to the emergency department if symptoms worsen or persist or if there are any questions or concerns that arise at home. Response to treatment: the patient's symptoms have markedly improved after treatment. 09/05 21:06 Order name: CBC with Diff; Complete Time: 21:52 rt 09/05 21:06 Order name: CMP; Complete Time: 21:52 rt 09/05 21:06 Order name: Lipase; Complete Time: 21:52 rt 09/05 21:06 Order name: Test, Serum; Complete Time: 21:52 rt 09/05 21:06 Order name: CT Abd/Pelvis - IV Contrast Only rt 09/05 21:06 Order name: IV Saline Lock; Complete Time: 21:28 rt 09/05 21:06 Order name: Labs collected and sent; Complete Time: 21:28 rt Administered Medications: 09/05 22:14 Drug: Ketorolac IVP 15 mg IVP once Route: IVP; Site: right antecubital; as6 23:55 Follow up: Response: No adverse reaction as6 Disposition Summary: 09/05/23 23:50 Discharge Ordered Notes: Location: Home rt Condition: Stable rt Diagnosis - Rectal prolapse rt - Constipation rt Followup: rt - With: Private Physician - When: 2 - 3 days - Reason: Discharge Instructions: - Discharge Summary Sheet rt - Constipation, Adult rt - Rectal Prolapse, Adult rt Forms: - Medication Reconciliation Form rt - Thank You Letter rt - Antibiotic Education rt - Prescription Opioid Use rt - Patient Portal Instructions rt - Leadership Thank You Letter rt Signatures: Dispatcher [employer] Jonathan Brasher RN RN as6 Joe Florez MD MD rt Nina Hunt RN RN km8 Corrections: (The following items were deleted from the chart) 09/06 04: 04:10 Differential Diagnosis Viral syndrome, UTI, thrush. rt rt 04:10 Data reviewed: vital signs, nurses notes, lab test result(s), rt rt 04:10 I considered the following discharge prescriptions or medication management in rt the emergency department Medications were administered in the Emergency Department. See [facility] rt 04:10 Independent interpretation of the following test(s) in the Emergency Department rtrt
--- NOTE | 2023-09-05 23:51 | ER ---
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 Coronavirus screen: Client denies travel out of the [place] in the last 14 days. Ebola Screen: No symptoms or risks identified at this time. Initial Sepsis Screen: Does the patient meet any 2 criteria? No. Patient's initial sepsis screen is negative. Does the patient have a suspected source of infection? No. Patient's initial sepsis screen is negative. Risk Assessment: Do you want to hurt yourself or someone else? Patient reports no desire to harm self or others. Onset of symptoms was September 05, 2023 at 10:00. 20:42 Method Of Arrival: Wheelchair km8 20:42 Acuity: YANICK 3 km8 Triage Assessment: 20:45 General: Appears in no apparent distress. uncomfortable, Behavior is calm, cooperative, km8 appropriate for age. Pain: Complains of pain in abdomen and rectal Pain currently is 10 out of 10 on a pain scale. EENT: No signs and/or symptoms were reported regarding the EENT system. Neuro: Level of Consciousness is awake, alert, obeys commands, Oriented to person, place, time, situation. Cardiovascular: Denies chest pain, shortness of breath, Capillary refill < 3 seconds Patient's skin is warm and dry. Respiratory: Airway is patent Respiratory effort is even, unlabored, Respiratory pattern is regular, symmetrical. GI: Reports lower abdominal pain, rectal pain. : No signs and/or symptoms were reported regarding the genitourinary system. Derm: Skin is intact, Skin is dry, Skin is pink, warm \T\ dry. normal, Skin temperature is warm. Musculoskeletal: Circulation, motion, and sensation intact. Range of motion: intact in all extremities. 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 Flu vaccine is not up to date. - Social history:: Smoking status: Reported history of juuling and/or vaping. Patient/guardian denies using alcohol, street drugs, stopped cocaine 1 week ago. - Family history:: not pertinent. Screenin:00 [facility] ED Fall Risk Assessment (Adult) Score/Fall Risk Level 0 - 2 = Low Risk. Abuse as6 screen: Denies threats or abuse. Denies injuries from another. Nutritional screening: No deficits noted. Tuberculosis screening: No symptoms or risk factors identified. Assessment: 20:59 General: Appears uncomfortable, Behavior is calm, cooperative. Pain: Complains of pain as6 in abdomen. GI: Abdomen is distended, Rectal exam: Hemorrhoids noted, Reports lower abdominal pain, upper abdominal pain. 22:00 Reassessment: No changes from previously documented assessment. Patient and/or family vc1 updated on plan of care and expected duration. Pain level reassessed. Patient is alert, oriented x 3, equal unlabored respirations, skin warm/dry/pink. 23:31 Reassessment: Patient appears in no apparent distress at this time. Patient states as6 feeling better. Vital Signs: 20:42 BP 117 / 81; Pulse 69; Resp 16; Temp 98.2(O); Pulse Ox 100% on R/A; Weight 72.57 kg [facility] (R); Height 5 ft. 2 in. (R); Pain 10/10; 21:30 BP 109 / 71; Pulse 67; Resp 16; Pulse Ox 99% ; vc1 22:00 BP 108 / 71; Pulse 65; Resp 16; Pulse Ox 100% ; vc1 23:30 BP 96 / 61; Pulse 65; Resp 18 S; Pulse Ox 98% on R/A; as6 20:42 Body Mass Index 29.26 (72.57 kg, 157.48 cm) [facility] 20:42 Pain Scale: Adult [facility] ED Course: 20:34 Patient arrived in ED. gm2 20:35 Joe Florez MD is Attending Physician. rt 20:45 Triage completed. km8 20:45 Arm band placed on right wrist. km8 20:59 Jonathan Lindsey, RN is Primary Nurse. as6 21:00 Placed in gown. Bed in low position. Call light in reach. Side rails up X2. as6 21:00 Served as a crematory attendant during rectal exam. as6 21:27 Inserted saline lock: 20 gauge in right antecubital area, using aseptic technique. as6 Blood collected. 22:38 CT Abd/Pelvis - IV Contrast Only In Process Unspecified. EDMS 23:56 Provided Education on: follow up. as6 23:56 IV discontinued, intact, bleeding controlled, No redness/swelling at site. Pressure as6 dressing applied. Administered Medications: 22:14 Drug: Ketorolac IVP 15 mg IVP once Route: IVP; Site: right antecubital; as6 23:55 Follow up: Response: No adverse reaction as6 Medication: 21:00 VIS not applicable for this client. as6 Outcome: 23:50 Discharge ordered by MD. rt 23:55 Discharged to home ambulatory, with significant other, as6 23:55 Condition: stable 23:55 Discharge instructions given to patient, significant other, Instructed on discharge instructions, follow up and referral plans. Demonstrated understanding of instructions, follow-up care, 23:56 Patient left the ED. as6 Signatures: Dispatcher [employer] EDNH Jonathan Lindsey RN RN as6 Tanesha Rodrigues RN RN vc1 Joe Florez MD MD rt Marylou Reyes gm2 Nina Hunt RN RN km8
[2023-09-06 06:08] VITALS: BP 96/61; TEMP 98.2; O2SAT 98
--- NOTE | 2023-09-06 22:23 | RAD REPORT ---
EXAM DESCRIPTION: CT - Abdomen Pelvis W Contrast - 09/06/2023 6:15 am CLINICAL HISTORY: Abdominal pain. COMPARISON: 07/27/[address] scan of the abdomen and pelvis was performed with IV contrast. This exam was performed according to our departmental dose-optimization program, which includes automated exposure control, a djustment of the mA and/or kV according to patient size and/or use of iterative reconstruction techni que. FINDINGS: The lung bases are clear. No pleural or pericardial effusions. There is no hiatal hernia. The liver, spleen, pancreas, gallbladder, adrenal glands, and kidneys are unremarkable. No urinary st ones are seen. The pelvic organs are also unremarkable. Bilateral tubal ligation clips are seen. The stomach and duodenum are unremarkable. No small bowel obstruction. The appendix is not well visua lized; however there are no inflammatory changes in the right lower quadrant. No evidence of acute di verticulitis. No adenopathy, free fluid, or free air is identified. The aorta is normal caliber. No acute bony findings are seen. There is no pathologic body wall hernia . IMPRESSION: No acute abdominal or pelvic findings. 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 The interpreting radiologist is fully responsible for the content of the report.
== END ==
LOC: ER 20:20
DX: K62.3 Rectal prolapse (principal); K59.00 Constipation, unspecified
CPT/HCPCS: 36415; 74177; 80053; 83690; 84703; 85025; 96374; 99284; Q9967

== ENCOUNTER → 2023-09-15 | Emergency (ER) | payer SELFPAY ==
[~2023-09-15] MED LIST changes: +FENTANYL CITR 100 MCG/2 ML ONE; -KETOROLAC 30 MG/ML INJ ONE
[2023-09-15 20:51] LABS: Absolute Lymphocytes (CBC) 2.6 K/uL (0.7-4.9); Hematocrit 39.1 % (36.0-45.0); Lymphocytes % 29.2 % (15.3-44.8); MCV 92.5 fL (80-100); MPV 8.4 fL (7.6-11.3); Platelets 289 thou/uL (152-406); RBC Red Blood Cell Count 4.23 M/uL (3.86-4.86)
[2023-09-15 21:03] LABS: Potassium 3.8 mEq/L (3.5-5.1)
--- NOTE | 2023-09-15 21:49 | RAD REPORT ---
EXAM DESCRIPTION: RAD - Ankle Left 3 View - 09/15/2023 9:17 pm CLINICAL HISTORY: PAIN COMPARISON: Ankle Left 3 View dated 10/21/2022 FINDINGS/IMPRESSION: No acute fracture. No malalignment. No significant focal degenerative changes.
--- NOTE | 2023-09-15 21:49 | RAD REPORT ---
EXAM DESCRIPTION: RAD - Foot Left 3 View - 09/15/2023 9:17 pm CLINICAL HISTORY: PAIN COMPARISON: Foot Left 3 View dated 10/21/2022; Ankle Left 3 View dated 09/15/2023 FINDINGS/IMPRESSION: No acute fracture. No malalignment. No significant focal degenerative changes.
--- NOTE | 2023-09-15 22:06 | RAD REPORT ---
EXAM DESCRIPTION: CT - Head C Spine Cap Leslie Chavez - 09/15/2023 9:52 pm CLINICAL HISTORY: Trauma, head and neck injury. Chest, abdomen and pelvis pain. PAIN COMPARISON: No comparisons TECHNIQUE: CT head without contrast. CT cervical spine without contrast with coronal and sagittal reformatted images. CT chest, abdomen and pelvis with coronal and sagittal reformatted images of the spine. All CT scans are performed using dose optimization technique as appropriate and may include automated exposure control or mA/KV adjustment according to patient size. FINDINGS: CT HEAD WITHOUT CONTRAST: No intracranial hemorrhage, hydrocephalus or extra-axial fluid collection. No acute large vascular te rritory infarct. The paranasal sinuses and mastoids are clear. The calvarium is intact. Defect in the membranous nasal septum. CT CERVICAL SPINE WITHOUT CONTRAST: No fracture or subluxation. The prevertebral soft tissues are normal in thickness.Reversal of the normal cervical lordosis is lik prabha positional. CT CHEST, ABDOMEN, PELVIS: Thorax: Chest Wall: No abnormal mass Lungs: No acute abnormality. Pleura: No effusions or pneumothorax. Desiree/Mediastinum: No lymphadenopathy. Aorta/Pulmonary Arteries: Unremarkable Heart: Normal size. Abdomen/Pelvis: Liver: No acute abnormality or suspicious lesions. Biliary: No biliary ductal dilatation. Stomach: No significant focal abnormality. Duodenum: No significant focal abnormality. Pancreas: No significant abnormality. Spleen: No significant abnormality. Adrenal: No suspicious lesions. Kidney/ureter: No hydronephrosis. No renal calculi. Retroperitoneum: No retroperitoneal adenopathy. Vascular: No aneurysm. Bowel: No significant focal abnormality. Peritoneum: No ascites or free air. Bladder: Grossly unremarkable. Reproductive: No adnexal masses. Bones: No acute fracture. Other: n/a IMPRESSION: Negative for acute traumatic findings.
--- NOTE | 2023-09-15 22:25 | EDPHYS ---
Physician Documentation [facility] Name: Lauren Polanco Age: 33 yrs Sex: Female : 1990 Arrival Date: 09/15/2023 Time: 20:12 Bed 4 Private MD: ED Physician Mark Anthony Whitley HPI: 09/15 22:51 This 33 yrs old Female presents to ER via Wheelchair with complaints of Fall Injury, kb Back Pain, Hip Pain. 22:51 Patient is a 33-year-old female who slipped on some water at the top of the staircase and fell down approximately 20 stairs. Complains of pain to left foot and ankle, head, entire spine, and hips. Denies LOC. Significant other denies AMS.. Historical: - Allergies: 20:23 Macrobid; cm10 - PMHx: 20:23 Anxiety; MRSA; [place]; cm10 - PSHx: 20:23 Appendectomy; D\T\C (le); eye surgery (le); jaw surgery (le); Tonsillectomy; cm10 - Immunization history:: Adult Immunizations unknown. - Social history:: Smoking status: Reported history of juuling and/or vaping. - Immunization history: Last tetanus immunization: unknown. ROS: 22:49 Constitutional: Negative for fever, chills, and weight loss, kb 22:49 Back: Positive for pain at rest, pain with movement, 22:49 MS/extremity: Positive for pain, swelling, tenderness, of the left foot and left ankle, 22:49 Neuro: Positive for headache, 22:49 All other systems are negative, Exam: 22:49 Constitutional: This is a well developed, well nourished patient who is awake, alert, kb and in no acute distress. Head/Face: Normocephalic, atraumatic. ENT: Moist Mucous membranes Cardiovascular: Regular rate Respiratory: Respirations even and unlabored. No increased work of breathing. Talking in full sentences Skin: Warm, dry with normal turgor. Normal color. Neuro: Awake and alert, GCS 15, oriented to person, place, time, and situation. Moves all extremities. Normal gait. 22:49 Abdomen/GI: Inspection: abdomen appears normal, Bowel sounds: normal, Palpation: soft, in all quadrants, moderate abdominal tenderness, in the left lower quadrant, 22:49 Back: pain, that is moderate, of the thoracic area, lumbar area and low back area, ROM is painful, normal spinal alignment noted, 22:49 Musculoskeletal/extremity: Extremities: grossly normal except: noted in the left ankle and left foot: pain, swelling, tenderness, ROM: limited active range of motion due to pain, Circulation is intact in all extremities. Sensation intact. Vital Signs: 20:23 BP 117 / 69; Pulse 79; Resp 18; Temp 99; Pulse Ox 99% on R/A; Weight 70.31 kg; Height 5 cm10 ft. 1 in. ; Pain 10/10; 20:23 Body Mass Index 29.29 (70.31 kg, 154.94 cm) cm10 20:23 Pain Scale: Adult cm10 Hamel Coma Score: 20:46 Eye Response: spontaneous(4). Motor Response: obeys commands(6). Verbal Response: jw7 oriented(5). Total: 15. Trauma Score (Adult): 20:46 Eye Response: spontaneous(1); Verbal Response: oriented(1); Motor Response: obeys jw7 commands(2); Systolic BP: > 89 mm Hg(4); Respiratory Rate: 10 to 29 per min(4); Aric Score: 15; Trauma Score: 12 MDM: 20:17 Patient medically screened. kb 22:50 Differential diagnosis: abrasion, closed head injury, contusion, fracture, sprain, kb strain. Data reviewed: vital signs, nurses notes. Historians other than the Patient: Spouse/Significant Other: significant other. Counseling: I had a detailed discussion with the patient and/or guardian regarding the historical points, exam findings, and any diagnostic results supporting the discharge/admit diagnosis, lab results, radiology results, the need for outpatient follow up, a family practitioner, to return to the emergency department if symptoms worsen or persist or if there are any questions or concerns that arise at home. 09/15 20: Order name: CBC with Diff; Complete Time: 20:52 kb 09/15 20: Order name: BMP; Complete Time: 21:07 kb 09/15 20: Order name: Test, Serum; Complete Time: 21:13 kb 09/15 19: Order name: CT Traumagram (Head C Spine CAP W Con); Complete Time: 22:08 kb 09/15 20:22 Order name: Ankle Left 3 View XRAY; Complete Time: 22:01 kb 09/15 20:22 Order name: Foot Left 3 View XRAY; Complete Time: 22:01 kb 09/15 20:22 Order name: IV Start; Complete Time: 20:42 kb Administered Medications: 21:18 Drug: fentaNYL (PF) IVP 25 mcg IVP once Route: IVP; Site: right forearm; jw7 22:18 Follow up: Response: No adverse reaction; Marked relief of symptoms; Pain is decreased; pf1 RASS: Alert and Calm (0) Disposition: 23:20 I was immediately available on-site in the Emergency Department for consultation in the ms3 care of the patient. Disposition Summary: 09/15/23 22:24 Discharge Ordered Notes: Location: Home kb Condition: Stable kb Diagnosis - Fall (on) (from) other stairs and steps kb - Pain in left foot kb - Pain in thoracic spine kb - Low back pain kb - Unspecified injury of head, initial encounter kb Followup: kb - With: Emergency Department - When: As needed - Reason: Worsening of condition Followup: kb - With: Private Physician - When: 2 - 3 days - Reason: Recheck today's complaints, Continuance of care, Re-evaluation by your physician Discharge Instructions: - Discharge Summary Sheet kb - Musculoskeletal Pain kb - Head Injury, Adult, [id number] kb Forms: - Medication Reconciliation Form kb - Thank You Letter kb - Antibiotic Education kb - Prescription Opioid Use kb - Patient Portal Instructions kb - Leadership Thank You Letter kb Prescriptions: - Diclofenac Sodium 75 mg Oral tablet, delayed release (enteric coated) - take 1 tablet ORAL route 2 times per day As needed; 30 tablet; Refills: 0, kb Product Selection Permitted - orphenadrine citrate 100 mg Oral Tablet Sustained Release - take 1 tablet ORAL route 2 times per day As needed; 20 tablet; Refills: 0, kb Product Selection Permitted Signatures: Dispatcher [employer] Latoya Mahmood FNP-C FNP-Ckb Sims, Marcus, DO DO ms3 Tere Medrano RN RN jw7 Shira Chavez RN RN cm10 Carla Bynum RN pf1
--- NOTE | 2023-09-15 22:25 | ER ---
Nurse's Notes [facility] Name: Lauren Polanco Age: 33 yrs Sex: Female : 1990 Arrival Date: 09/15/2023 Time: 20:12 Bed 4 Private MD: Diagnosis: Fall (on) (from) other stairs and steps;Pain in left foot;Pain in thoracic spine;Low back pain;Unspecified injury of head, initial encounter Presentation: 09/15 20:23 Chief complaint: Patient states: Fell down one flight of stairs. pt reports left ankle, cm10 left foot, left hip and back pain. Pt denies any LOC. Coronavirus screen: Vaccine status: Patient reports being unvaccinated. Client denies travel out of the [place] in the last 14 days. Ebola Screen: Patient denies travel to an Ebola-affected area in the 21 days before illness onset. No symptoms or risks identified at this time. Initial Sepsis Screen: Does the patient meet any 2 criteria? No. Patient's initial sepsis screen is negative. Does the patient have a suspected source of infection? No. Patient's initial sepsis screen is negative. Risk Assessment: Do you want to hurt yourself or someone else? Patient reports no desire to harm self or others. Onset of symptoms was September 15, 2023. 20:23 Method Of Arrival: Wheelchair cm10 20:23 Acuity: YANICK 3 cm10 20:50 Care prior to arrival: None. Mechanism of Injury: Fall down 20 steps. Trauma event jw7 details: Injury occurred in the [facility], Injury occurred: at home. Injury occurred: September 15, 2023 Injury occurred at: 19:00. Historical: - Allergies: 20:23 Macrobid; cm10 - PMHx: 20:23 Anxiety; MRSA; [place]; cm10 - PSHx: 20:23 Appendectomy; D\T\C (le); eye surgery (le); jaw surgery (le); Tonsillectomy; cm10 - Immunization history:: Adult Immunizations unknown. - Social history:: Smoking status: Reported history of juuling and/or vaping. - Immunization history: Last tetanus immunization: unknown. Screenin:26 [facility] ED Fall Risk Assessment (Adult) History of falling in the last 3 months, jw7 including since admission Yes- single mechanical fall (1 pt) Confusion or Disorientation No (0 pts) Intoxicated or Sedated No (0 pts) Impaired Gait No (0 pts) Mobility Assist Device Used No (0 pt) Altered Elimination No (0 pt) Score/Fall Risk Level 0 - 2 = Low Risk Oriented to surroundings, Maintained a safe environment, Educated pt \T\ family on fall prevention, incl call for assistance when getting out of bed. Abuse screen: Denies threats or abuse. Denies injuries from another. Nutritional screening: No deficits noted. Tuberculosis screening: No symptoms or risk factors identified. Primary Survey: 20:46 NO uncontrolled hemorrhage observed. A: The client is awake and alert. The airway is jw7 patent. Breathing/Chest: Spontaneous respiratory effort, equal unlabored respirations, breath sounds clear bilaterally, regular pattern, symmetrical chest rise and fall. Circulation: No external hemorrhage present. Regular and strong central pulse, skin warm/dry/normal color. Disability Pupils are equal, round, reactive to light and accommodation. Client is alert. Exposure/Environment: There is no evidence of uncontrolled external bleeding. Assessment: 20:47 General: Appears in no apparent distress. uncomfortable, Behavior is calm, cooperative. jw7 Pain: Complains of pain in Back, left hip, left knee, and left ankle Pain does not radiate. Pain currently is 10 out of 10 on a pain scale. Quality of pain is described as sharp, throbbing, Pain began suddenly, Is continuous. Neuro: Level of Consciousness is awake, alert, obeys commands, Oriented to person, place, time, situation. Cardiovascular: Capillary refill < 3 seconds Clubbing of nail beds is absent JVD is absent Patient's skin is warm and dry. Respiratory: Airway is patent Trachea midline Respiratory effort is even, unlabored, Respiratory pattern is regular, symmetrical. GI: Abdomen is flat, non-distended. : No deficits noted. No signs and/or symptoms were reported regarding the genitourinary system. EENT: No deficits noted. No signs and/or symptoms were reported regarding the EENT system. Derm: Skin is intact, is healthy with good turgor, Skin is dry, Skin is normal, Skin temperature is warm. Musculoskeletal: Circulation, motion, and sensation intact. Range of motion: limited in left hip, left knee and left ankle Reports pain in Back, left hip, left knee, and left ankle. 21:35 Reassessment: Patient appears in no apparent distress at this time. Patient and/or pf1 family updated on plan of care and expected duration. Pain level reassessed. Patient is alert, oriented x 3, equal unlabored respirations, skin warm/dry/pink. 22:35 Reassessment: Patient appears in no apparent distress at this time. Patient and/or pf1 family updated on plan of care and expected duration. Pain level reassessed. Patient is alert, oriented x 3, equal unlabored respirations, skin warm/dry/pink. Patient states feeling better. Patient states symptoms have improved. Vital Signs: 20:23 BP 117 / 69; Pulse 79; Resp 18; Temp 99; Pulse Ox 99% on R/A; Weight 70.31 kg; Height 5 cm10 ft. 1 in. ; Pain 10/10; 20:23 Body Mass Index 29.29 (70.31 kg, 154.94 cm) cm10 20:23 Pain Scale: Adult cm10 Aric Coma Score: 20:46 Eye Response: spontaneous(4). Motor Response: obeys commands(6). Verbal Response: jw7 oriented(5). Total: 15. Trauma Score (Adult): 20:46 Eye Response: spontaneous(1); Verbal Response: oriented(1); Motor Response: obeys jw7 commands(2); Systolic BP: > 89 mm Hg(4); Respiratory Rate: 10 to 29 per min(4); Aric Score: 15; Trauma Score: 12 ED Course: 20:16 Patient arrived in ED. gm2 20:17 Latoya Puentes FNP-C [facility]. kb 20:17 Mark Anthony Whitley DO is Attending Physician. kb 20:25 Triage completed. cm10 20:25 Arm band placed on Patient placed in an exam room, on a stretcher. cm10 20:26 Patient has correct armband on for positive identification. Bed in low position. Call [facility] light in reach. 20:35 Initial lab(s) drawn, by me, sent to lab. Inserted saline lock: 22 gauge in right jw7 forearm, using aseptic technique. Blood collected. 20:46 Patient maintains SpO2 saturation greater than 95% on room air. jw7 20:52 Thermoregulation: warm blanket given to patient. jw7 21:19 Ankle Left 3 View XRAY In Process Unspecified. EDMS 21:19 Foot Left 3 View XRAY In Process Unspecified. EDMS 21:54 CT Traumagram (Head C Spine CAP W Con) In Process Unspecified. EDMS 22:43 Provided Education on: prescriptions and follow up. pf1 22:43 No provider procedures requiring assistance completed. pf1 22:43 IV discontinued, intact, bleeding controlled, No redness/swelling at site. Pressure pf1 dressing applied. Administered Medications: 21:18 Drug: fentaNYL (PF) IVP 25 mcg IVP once Route: IVP; Site: right forearm; jw7 22:18 Follow up: Response: No adverse reaction; Marked relief of symptoms; Pain is decreased; pf1 RASS: Alert and Calm (0) Medication: 22:43 VIS not applicable for this client. pf1 Outcome: 22:24 Discharge ordered by . kb 22:43 Discharged to home via wheelchair, with family, pf1 22:43 Condition: improved 22:43 Discharge instructions given to patient, family, Instructed on discharge instructions, follow up and referral plans. Demonstrated understanding of instructions, follow-up care, medications, Prescriptions given X 2, 22:43 Patient left the ED. pf1 Signatures: Dispatcher [employer] EDMS Latoya Puentes, RECEPTION MANAGER-C RECEPTION MANAGER-CkTere Louis RN RN jw7 Carla Bynum, RN RN pf1 Shira Chavez RN RN cm10 Marylou Reyes 2
[2023-09-15 23:33] VITALS: BP 117/69; TEMP 99; O2SAT 99
== END ==
LOC: ER 20:12
DX: M79.672 Pain in left foot (principal); M54.6 Pain in thoracic spine; M54.50 Low back pain, unspecified; S09.90XA Unspecified injury of head, initial encounter; W10.8XXA Fall (on) (from) other stairs and steps, initial encounter
CPT/HCPCS: 36415; 70450; 71260; 72125; 74177; 80048; 84703; 85025; 96374; 99285; J3010; Q9967

== ENCOUNTER → 2023-11-07 | Emergency (ER) | payer SELFPAY ==
--- NOTE | 2023-11-07 21:51 | ER ---
Nurse's Notes [facility] Name: Lauren Polanco Age: 33 yrs Sex: Female : 1990 Arrival Date: 11/07/2023 Time: 21:36 Bed IW5 Private MD: Diagnosis: Herpesviral infection, unspecified;Herpetic blistering lesion mid back Presentation: 11/06 21:42 Chief complaint: Patient states: pt noticed today that she has an unknown spot on her as6 back. Coronavirus screen: At this time, the client does not indicate any symptoms associated with coronavirus-19. Ebola Screen: No symptoms or risks identified at this time. Initial Sepsis Screen: Does the patient meet any 2 criteria? No. Patient's initial sepsis screen is negative. Does the patient have a suspected source of infection? No. Patient's initial sepsis screen is negative. Risk Assessment: Do you want to hurt yourself or someone else? Patient reports no desire to harm self or others. Onset of symptoms was November 07, 2023. 21:42 Method Of Arrival: Ambulatory as6 21:42 Acuity: YANICK 4 as6 Triage Assessment: 21:58 General: Appears in no apparent distress. Behavior is cooperative, anxious. Pain: as6 Complains of pain in back. Respiratory: Respiratory effort is even, unlabored, Respiratory pattern is regular, symmetrical. Derm: Wound noted left mid back Wound is blistering and reddened. Historical: - Allergies: 21:46 Macrobid; as6 - PMHx: 21:46 Anxiety; MRSA; Von [place]bran; as6 - PSHx: 21:46 Appendectomy; D\T\C; eye surgery; jaw surgery; Tonsillectomy; as6 - Immunization history:: Adult Immunizations up to date. - Social history:: Smoking status: Reported history of juuling and/or vaping. - Family history:: not pertinent. Screenin:59 [facility] ED Fall Risk Assessment (Adult) History of falling in the last 3 months, as6 including since admission No falls in past 3 months (0 pts) Confusion or Disorientation No (0 pts) Intoxicated or Sedated No (0 pts) Impaired Gait No (0 pts) Mobility Assist Device Used No (0 pt) Altered Elimination No (0 pt) Score/Fall Risk Level 0 - 2 = Low Risk Oriented to surroundings, Maintained a safe environment, Educated pt \T\ family on fall prevention, incl call for assistance when getting out of bed, Assessed \T\ reinforced patient's understanding of fall precautions. Abuse screen: Denies threats or abuse. Denies injuries from another. Nutritional screening: No deficits noted. Tuberculosis screening: No symptoms or risk factors identified. Vital Signs: 21:42 BP 105 / 81; Pulse 84; Resp 16 S; Temp 98.2(TE); Pulse Ox 99% on R/A; Weight 65.77 kg as6 (R); Height 5 ft. 1 in. (R); Pain 5/10; 21:42 Body Mass Index 27.40 (65.77 kg, 154.94 cm) as6 21:42 Pain Scale: Adult as6 ED Course: 21:37 Patient arrived in ED. jj6 21:42 Abad Winston MD is Attending Physician. sp4 21:42 Arm band placed on. as6 21:46 Triage completed. as6 21:59 Patient has correct armband on for positive identification. Provided Education on: rx as6 teaching . 22:00 No provider procedures requiring assistance completed. Patient did not have IV access as6 during this emergency room visit. Administered Medications: No medications were administered Medication: 21:59 VIS not applicable for this client. as6 Outcome: 21:51 Discharge ordered by . sp4 22:00 Discharged to home ambulatory, with significant other, as6 22:00 Condition: stable 22:00 Discharge instructions given to patient, Instructed on discharge instructions, follow up and referral plans. medication usage, Demonstrated understanding of instructions, follow-up care, medications, Prescriptions given X 2, 22:00 Patient left the ED. as6 Signatures: Lilliana Shaikh jj6 Jonathan Lindsey, ZOË RN as6 Abad Winston MD MD sp4
--- NOTE | 2023-11-07 21:51 | EDPHYS ---
Physician Documentation [facility] Name: Lauren Polanco Age: 33 yrs Sex: Female : 1990 Arrival Date: 11/07/2023 Time: 21:36 Bed IW5 Private MD: ED Physician Abad Winston HPI: 11/06 21:42 This 33 yrs old Other Female presents to ER via Unassigned with complaints of Insect sp4 Bite. 11/07 02:18 Patient presents with posterior left to mid back blistering lesions starting today. . sp4 Historical: - Allergies: 11/06 21:46 Macrobid; as6 - PMHx: 21:46 Anxiety; MRSA; Von Will[place]bran; as6 - PSHx: 21:46 Appendectomy; D\T\C; eye surgery; jaw surgery; Tonsillectomy; as6 - Immunization history:: Adult Immunizations up to date. - Social history:: Smoking status: Reported history of juuling and/or vaping. - Family history:: not pertinent. ROS: 11/07 02:18 Constitutional: Negative for fever, chills, and weight loss, positive blistering sp4 lesion to mid back All other systems are negative, Exam: 02:18 Constitutional: This is a well developed, well nourished patient who is awake, alert, sp4 and in no acute distress. Head/Face: Normocephalic, atraumatic. Eyes: Pupils equal round and reactive to light, extra-ocular motions intact. Lids and lashes normal. Conjunctiva and sclera are not injected. Cornea within normal limits. Periorbital areas with no swelling, redness, or edema. ENT: Nares patent. No nasal discharge, no septal abnormalities noted. Tympanic membranes are normal and external auditory canals are clear. Oropharynx with no redness, swelling, or masses, exudates, or evidence of obstruction, uvula midline. Mucous membranes moist. Neck: Trachea midline, no thyromegaly or masses palpated, and no cervical lymphadenopathy. Supple, full range of motion without nuchal rigidity, or vertebral point tenderness. Chest/axilla: Normal chest wall appearance and motion. Nontender with no deformity. No lesions are appreciated. Cardiovascular: Regular rate and rhythm with a normal S1 and S2. No gallops, murmurs, or rubs. Normal PMI, no JVD. No pulse deficits. Respiratory: Lungs have equal breath sounds bilaterally, clear to auscultation and percussion. No rales, rhonchi or wheezes noted. No increased work of breathing, no retractions or nasal flaring. Abdomen/GI: Soft, with normal bowel sounds. No distension or tympany. No guarding or rebound. No evidence of tenderness throughout. Back: No spinal tenderness. No costovertebral tenderness. Mid back and off slightly to the left there is a small blistering lesion consistent with acute herpes type early blister without ulceration Skin: Warm, dry with normal turgor. Normal color with no rashes, no lesions, and no evidence of cellulitis. MS/ Extremity: Pulses equal, no cyanosis. Neurovascular intact. Full, normal range of motion. Neuro: Awake and alert, GCS 15, oriented to person, place, time, and situation. Cranial nerves II-XII grossly intact. Motor strength 5/5 in all extremities. Sensory grossly intact. Psych: Awake, alert, with orientation to person, place and time. Behavior, mood, and affect are within normal limits Vital Signs: 11/06 21:42 BP 105 / 81; Pulse 84; Resp 16 S; Temp 98.2(TE); Pulse Ox 99% on R/A; Weight 65.77 kg as6 (R); Height 5 ft. 1 in. (R); Pain 5/10; 21:42 Body Mass Index 27.40 (65.77 kg, 154.94 cm) as6 21:42 Pain Scale: Adult as6 MDM: 21:51 Patient medically screened. sp4 11/07 02:18 Differential Diagnosis altered mental status, sepsis, flu, Shingles. Data reviewed: sp4 vital signs, nurses notes. ED course: Patient was prescribed Valtrex twice a day for 10 days. 11/06 21:50 Order name: Wound Care; Complete Time: 21:58 sp4 Administered Medications: No medications were administered Disposition Summary: 11/07/23 21:51 Discharge Ordered Notes: Location: Home sp4 Problem: new sp4 Symptoms: have improved sp4 Condition: Stable sp4 Diagnosis - Herpesviral infection, unspecified sp4 - Herpetic blistering lesion mid back sp4 Followup: sp4 - With: Private Physician - When: 7 - 10 days - Reason: Recheck today's complaints Discharge Instructions: - Discharge Summary Sheet sp4 - Shingles, [id number] sp4 Forms: - Patient Portal Instructions sp4 Prescriptions: - valacyclovir 1 gram Oral tablet - take 1 tablet ORAL route every 12 hours for 10 days; 20 tablet; Refills: 0, sp4 Product Selection Permitted - Ibuprofen 800 mg Oral Tablet - take 1 tablet ORAL route every 8 hours As needed take with food; 30 tablet; sp4 Refills: 0, Product Selection Permitted Signatures: Jonathan Lindsey RN RN as6 Abad Winston MD MD sp4
== END ==
LOC: ER 21:36
DX: B00.9 Herpesviral infection, unspecified (principal)
CPT/HCPCS: 99283

== ENCOUNTER 2023-12-03 01:23 | Emergency (ER) | payer SELFPAY ==
--- NOTE | 2023-12-03 02:03 | ER ---
Nurse's Notes [facility] Name: Lauren Polacno Age: 33 yrs Sex: Female : 1990 Arrival Date: 12/03/2023 Time: 01:23 Bed IW1 Private MD: Diagnosis: Herpesviral vulvovaginitis Presentation: 12/02 01:41 Chief complaint: Patient states: having genital herpes outbreak and needs her cm10 medication refilled. Coronavirus screen: Client denies travel out of the [place] in the last 14 days. At this time, the client does not indicate any symptoms associated with coronavirus-19. Ebola Screen: Patient denies travel to an Ebola-affected area in the 21 days before illness onset. No symptoms or risks identified at this time. Initial Sepsis Screen: Does the patient meet any 2 criteria? HR > 90 bpm. No. Patient's initial sepsis screen is negative. Does the patient have a suspected source of infection? No. Patient's initial sepsis screen is negative. Risk Assessment: Do you want to hurt yourself or someone else? Patient reports no desire to harm self or others. Onset of symptoms was December 03, 2023. 01:41 Method Of Arrival: Ambulatory cm10 01:41 Acuity: YANICK 4 cm10 Triage Assessment: 01:43 General: Appears in no apparent distress. uncomfortable, Behavior is calm, cooperative. cm10 Pain: Complains of pain in groin. Neuro: No deficits noted. Level of Consciousness is awake, alert, obeys commands, Oriented to person, place, time, situation. Respiratory: Airway is patent Respiratory effort is even, unlabored, Respiratory pattern is regular, symmetrical. : Reports Herpes outbreak. Musculoskeletal: Range of motion: intact in all extremities. Historical: - Allergies: 01:43 Macrobid; cm10 - PMHx: 01:43 Anxiety; MRSA; Von [place]an; cm10 - PSHx: 01:43 Appendectomy; D\T\C; eye surgery; jaw surgery; Tonsillectomy; cm10 - Immunization history:: Adult Immunizations up to date. - Infectious Disease History:: Denies. - Social history:: Smoking status: Patient denies any tobacco usage or history of. - Family history:: not pertinent. Screenin:44 [facility] ED Fall Risk Assessment (Adult) History of falling in the last 3 months, cm10 including since admission No falls in past 3 months (0 pts) Confusion or Disorientation No (0 pts) Intoxicated or Sedated No (0 pts) Impaired Gait No (0 pts) Mobility Assist Device Used No (0 pt) Altered Elimination No (0 pt) Score/Fall Risk Level 0 - 2 = Low Risk Oriented to surroundings, Maintained a safe environment, Hourly rounding (assess needs \T\ fall precautionary measures) done. Abuse screen: Denies threats or abuse. Denies injuries from another. Nutritional screening: No deficits noted. Tuberculosis screening: No symptoms or risk factors identified. Vital Signs: 01:41 BP 121 / 71; Pulse 117; Resp 18; Temp 98.5(O); Pulse Ox 99% on R/A; Weight 62.14 kg; cm10 Height 5 ft. 1 in. ; Pain 6/10; 01:41 Body Mass Index 25.89 (62.14 kg, 154.94 cm) cm10 01:41 Pain Scale: Adult cm10 [place] Coma Score: 02:00 Eye Response: spontaneous(4). Motor Response: obeys commands(6). Verbal Response: sp4 oriented(5). Total: 15. ED Course: 01:35 Patient arrived in ED. gm2 01:43 Triage completed. cm10 01:43 Arm band placed on Patient placed in waiting room. cm10 01:44 Patient has correct armband on for positive identification. Provided Education on: ER cm10 process and procedures.. 01:52 Abad Winston MD is Attending Physician. sp4 02:21 No provider procedures requiring assistance completed. Patient did not have IV access cm10 during this emergency room visit. Administered Medications: 02:16 Not Given (Other Intervention Used): mg PO once cm10 02:21 Drug: Acyclovir PO 800 mg PO once Route: PO; cm10 02:21 Follow up: Response: No adverse reaction cm10 Medication: 01:44 VIS not applicable for this client. cm10 Outcome: 02:03 Discharge ordered by . sp4 02:21 Discharged to home ambulatory, cm10 02:21 Condition: good 02:21 Discharge instructions given to patient, Instructed on discharge instructions, follow up and referral plans. medication usage, Demonstrated understanding of instructions, follow-up care, medications, Prescriptions given X 1, 02:22 Patient left the ED. cm10 Signatures: Abad Winston MD MD sp4 Shira Chavez RN RN cm10 Marylou Reyes 2
--- NOTE | 2023-12-03 02:03 | EDPHYS ---
Physician Documentation [facility] Name: Lauren Polanco Age: 33 yrs Sex: Female : 1990 Arrival Date: 12/03/2023 Time: 01:23 Bed IW1 Private MD: ED Physician Abad Winston HPI: 12/02 01:52 This 33 yrs old Other Female presents to ER via Ambulatory with complaints of Gential sp4 herpes out break. 02:00 33-year-old female presents with genital lesions consistent with her herpes. . sp4 Historical: - Allergies: 01:43 Macrobid; cm10 - PMHx: 01:43 Anxiety; MRSA; [place]; cm10 - PSHx: 01:43 Appendectomy; D\T\C; eye surgery; jaw surgery; Tonsillectomy; cm10 - Immunization history:: Adult Immunizations up to date. - Infectious Disease History:: Denies. - Social history:: Smoking status: Patient denies any tobacco usage or history of. - Family history:: not pertinent. ROS: 02:00 Constitutional: Negative for fever, chills, and weight loss, positive for genital sp4 herpes 02:00 All other systems are negative, Exam: 02:00 Constitutional: This is a well developed, well nourished patient who is awake, alert, sp4 and in no acute distress. Head/Face: Normocephalic, atraumatic. Eyes: Pupils equal round and reactive to light, extra-ocular motions intact. Lids and lashes normal. Conjunctiva and sclera are not injected. Cornea within normal limits. Periorbital areas with no swelling, redness, or edema. ENT: Nares patent. No nasal discharge, no septal abnormalities noted. Tympanic membranes are normal and external auditory canals are clear. Oropharynx with no redness, swelling, or masses, exudates, or evidence of obstruction, uvula midline. Mucous membranes moist. Neck: Trachea midline, no thyromegaly or masses palpated, and no cervical lymphadenopathy. Supple, full range of motion without nuchal rigidity, or vertebral point tenderness. Chest/axilla: Normal chest wall appearance and motion. Nontender with no deformity. No lesions are appreciated. Cardiovascular: Regular rate and rhythm with a normal S1 and S2. No gallops, murmurs, or rubs. Normal PMI, no JVD. No pulse deficits. Respiratory: Lungs have equal breath sounds bilaterally, clear to auscultation and percussion. No rales, rhonchi or wheezes noted. No increased work of breathing, no retractions or nasal flaring. Abdomen/GI: Soft, with normal bowel sounds. No distension or tympany. No guarding or rebound. No evidence of tenderness throughout. Back: No spinal tenderness. No costovertebral tenderness. Skin: Warm, dry with normal turgor. Normal color with no rashes, no lesions, and no evidence of cellulitis. MS/ Extremity: Pulses equal, no cyanosis. Neurovascular intact. Full, normal range of motion. Neuro: Awake and alert, GCS 15, oriented to person, place, time, and situation. Cranial nerves II-XII grossly intact. Motor strength 5/5 in all extremities. Sensory grossly intact. Psych: Awake, alert, with orientation to person, place and time. Behavior, mood, and affect are within normal limits Vital Signs: 01:41 BP 121 / 71; Pulse 117; Resp 18; Temp 98.5(O); Pulse Ox 99% on R/A; Weight 62.14 kg; cm10 Height 5 ft. 1 in. ; Pain 6/10; 01:41 Body Mass Index 25.89 (62.14 kg, 154.94 cm) cm10 01:41 Pain Scale: Adult cm10 [place] Coma Score: 02:00 Eye Response: spontaneous(4). Motor Response: obeys commands(6). Verbal Response: sp4 oriented(5). Total: 15. MDM: 01:57 Patient medically screened. sp4 02:00 Differential Diagnosis altered mental status, sepsis, flu. Data reviewed: vital signs, sp4 nurses notes. ED course: Will provide valacyclovir. Administered Medications: 02:16 Not Given (Other Intervention Used): mg PO once cm10 02:21 Drug: Acyclovir PO 800 mg PO once Route: PO; cm10 02:21 Follow up: Response: No adverse reaction cm10 Disposition Summary: 12/03/23 02:03 Discharge Ordered Notes: Location: Home sp4 Problem: new sp4 Symptoms: have improved sp4 Condition: Stable sp4 Diagnosis - Herpesviral vulvovaginitis sp4 Followup: sp4 - With: Private Physician - When: 7 - 10 days - Reason: Recheck today's complaints Discharge Instructions: - Discharge Summary Sheet sp4 - Genital Herpes sp4 Forms: - Patient Portal Instructions sp4 Prescriptions: - valacyclovir 1 gram Oral tablet - take 1 tablet ORAL route 2 times per day for 21 days; 42 tablet; Refills: 0, sp4 Product Selection Permitted Signatures: Abad Winston MD MD sp4 Shira Chavez RN RN cm10
[2023-12-03] MEDS ORDERED: ACYCLOVIR 400 MG TABLET ONE (02:19)
[2023-12-03 06:14] VITALS: BP 121/71; TEMP 98.5; O2SAT 99
== END 2023-12-03 02:22 | disposition home or self-care (01) ==
LOC: ER 01:23
DX: A60.04 Herpesviral vulvovaginitis (principal)

== ENCOUNTER 2024-02-17 13:30 | Emergency (ER) | payer SELFPAY ==
[2024-02-17 14:55] LABS: Absolute Eosinophils 0.6 K/uL (0-0.5); Absolute Lymphocytes (CBC) 1.7 K/uL (0.7-4.9); Absolute Monocytes 0.7 K/uL (0.1-1.3); Basophils % 0.2 % (0-1.3); Eosinophils % 4.8 % (0-4.4); Hematocrit 41.3 % (36.0-45.0); Hemoglobin 13.8 g/dL (12.0-15.0); Lymphocytes % 13.3 % (15.3-44.8); MCH 31.1 pg (27.0-35.0); MCHC 33.3 g/dL (32.0-36.0); MCV 93.4 fL (80-100); MPV 8.5 fL (7.6-11.3); Monocytes % 5.4 % (3.3-12.3); Neutrophils % 76.3 % (41.7-73.7); Platelets 341 thou/uL (152-406); RBC Red Blood Cell Count 4.43 M/uL (3.86-4.86); Red Cell Distribution Width 13.6 % (12.1-15.2)
[2024-02-17 15:09] LABS: Specific Gravity 1.027 (1.005-1.030); Sqamous Epithelial 20-50 /HPF (None Seen); Urine Bacteria <20 /HPF (<20); Urine Bilirubin NEGATIVE (Negative); Urine Blood 3+ (OVER) (Negative); Urine Clarity Extremely Turbid (Clear); Urine Color Light-Orange (Yellow); Urine Crystals Unidentified Moderate /HPF (None Seen); Urine Culture Reflex Order NOT NEEDED; Urine Glucose NEGATIVE (Negative); Urine Ketones NEGATIVE (Negative); Urine Microscopic Reflex YN ORDER UMIC; Urine Mucus 3+ /HPF (None Seen); Urine Nitrite NEGATIVE (Negative); Urine Protein 2+ (Negative); Urine RBC >50 /HPF (None Seen); Urine Urobilinogen 1+ (Normal); Urine WBC >50 /HPF (<5); Urine pH 6.5 (5.0-7.0)
[2024-02-17] MEDS ORDERED: NA CHLORIDE 0.9% 1,000 ML ONE ×2 (15:09→20:03)
[2024-02-17 15:14] LABS: ALT/SGPT 21 U/L (13-56); AST/SGOT < 10 U/L (15-37); Albumin 3.5 g/dL (3.4-5.0); Albumin/Globulin Ratio 0.8 (1.1-1.8); Alkaline Phosphatase 70 U/L (45-117); Anion Gap 4.5 mEq/L (5.0-15.0); BUN Blood Urea Nitrogen 9 mg/dL (7-18); Bicarbonate 32 mEq/L (21-32); Bilirubin Total 0.3 mg/dL (0.2-1.0); Globulin 4.3 g/dL (2.3-3.5); Glomerular Filtration Rate 115 ml/min (=/>90); Glucose Level 114 mg/dL (74-106); Lipase 41 U/L (13-75); Potassium 3.5 mEq/L (3.5-5.1); Protein, Total 7.8 g/dL (6.4-8.2); Sodium Level 139 mEq/L (136-145)
--- NOTE | 2024-02-17 15:50 | RAD REPORT ---
EXAM DESCRIPTION: CT - Abdomen Pelvis W Contrast - 02/17/2024 3:29 pm CLINICAL HISTORY: Abdominal pain/flank pain COMPARISON: August 2023 TECHNIQUE: Computed axial tomography of the abdomen pelvis was obtained. 100 cc Isovue-300 was admin istered intravenously. Oral contrast was not requested which limits evaluation of bowel and appendix All CT scans are performed using dose optimization technique as appropriate and may include automated exposure control or mA/KV adjustment according to patient size. FINDINGS: The liver, spleen, pancreas, adrenal and kidneys appear unremarkable. There is no evidence of diverticulitis. No adnexal mass. Mild gastric distention IMPRESSION: Mild gastric distention
[2024-02-17] MEDS ORDERED: PHENAZOPYRIDINE 100MG TAB PO ONE (20:03)
[2024-02-17] MEDS ORDERED: NA CHLORIDE 0.9% 50 ML ONE (20:03)
[2024-02-17] MEDS ORDERED: CEFTRIAXONE 1000 MG/VIAL ONE (20:03)
--- NOTE | 2024-02-17 20:32 | EDPHYS ---
Physician Documentation [facility] Name: Lauren Polanco Age: 34 yrs Sex: Female : 1990 Arrival Date: 02/17/2024 Time: 13:30 Bed 10 Private MD: ED Physician Joe Florez HPI: 02/16 14:31 This 34 yrs old Female presents to ER via Unassigned with complaints of Urinary Problem.sb4 14:31 The patient presents with urinary symptoms, urinary retention. Onset: The sb4 symptoms/episode began/occurred 1 week(s) ago. Modifying factors: The symptoms are alleviated by nothing, the symptoms are aggravated by nothing. Associated signs and symptoms: Pertinent positives: dysuria, fever. The patient has not experienced similar symptoms in the past. 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 - Infectious Disease History:: Denies. - Social history:: Smoking status: Patient denies any tobacco usage or history of. ROS: 14:31 Positive for pelvic pain, burning with urination, difficulty urinating, sb4 14:31 Respiratory: Negative for shortness of breath, cough, wheezing, and pleuritic chest pain, 14:31 Constitutional: Positive for fever, malaise, 14:31 Back: Positive for flank pain, bilaterally, 14:31 All other systems are negative, Exam: 14:31 Constitutional: This is a well developed, well nourished patient who is awake, alert, sb4 and in no acute distress. Head/Face: Normocephalic, atraumatic. Eyes: Extra-ocular motions intact. Periorbital areas with no swelling, redness, or edema. ENT: Mucous membranes moist. Skin: Warm, dry with normal turgor. Normal color with no rashes, no lesions, and no evidence of cellulitis. MS/ Extremity: Pulses equal, no cyanosis. Neurovascular intact. Full, normal range of motion. Neuro: Awake and alert, GCS 15, oriented to person, place, time, and situation. Motor strength 5/5 in all extremities. Sensory grossly intact. Vital Signs: 14:27 BP 108 / 59; Pulse 75; Resp 18; Temp 97.8; Pulse Ox 99% ; Height 5 ft. 1 in. ; ph 19:30 BP 108 / 61; Pulse 72; Resp 17 S; Pulse Ox 99% on R/A; jw7 20:30 BP 115 / 62; Pulse 71; Resp 17 S; Pulse Ox 99% on R/A; jw7 21:30 BP 110 / 60; Pulse 69; Resp 16 S; Temp 98.2(O); Pulse Ox 100% on R/A; jw7 MDM: 14:26 Patient medically screened. sb4 19:56 Data reviewed: vital signs, nurses notes, lab test result(s), radiologic studies, and sb4 as a result, I will discharge patient. Counseling: I had a detailed discussion with the patient and/or guardian regarding the historical points, exam findings, and any diagnostic results supporting the discharge/admit diagnosis, lab results, radiology results, to return to the emergency department if symptoms worsen or persist or if there are any questions or concerns that arise at home. 02/16 14:31 Order name: CBC with Diff; Complete Time: 14:57 sb4 02/16 14:31 Order name: CMP; Complete Time: 15:17 sb4 02/16 14:31 Order name: Lipase; Complete Time: 15:17 sb4 02/16 14:31 Order name: Test, Urine; Complete Time: 15:11 sb4 02/16 14:31 Order name: Urinalysis w/ reflexes; Complete Time: 15:11 sb4 02/16 15:11 Order name: UAM: recollect; Complete Time: 20:44 sb4 02/16 20:32 Order name: Urine Culture EDMS 02/16 14:31 Order name: CT Abd/Pelvis - IV Contrast Only; Complete Time: 15:51 sb4 02/16 14:31 Order name: IV Saline Lock; Complete Time: 14:48 sb4 02/16 14:31 Order name: Labs collected and sent; Complete Time: 14:49 sb4 02/16 14:31 Order name: Bladder Scanner; Complete Time: 20:24 sb4 Administered Medications: 15:15 Drug: NS 0.9% IV 1000 ml IV at 1 bolus Per protocol; 1000 mL bolus Route: IV; Rate: 1 cm10 bolus; Site: right antecubital; 22:10 Follow up: Response: No adverse reaction; IV Status: Completed infusion; IV Intake: jw7 1000ml 20:15 Drug: NS 0.9% IV 1000 ml IV at 1 bolus Per protocol; 1000 mL bolus Route: IV; Rate: 1 jw7 bolus; Site: right antecubital; 22:10 Follow up: Response: No adverse reaction; IV Status: Completed infusion; IV Intake: jw7 1000ml 20:15 Drug: Phenazopyridine PO 200 mg PO once Route: PO; jw7 22:10 Follow up: Response: No adverse reaction; Marked relief of symptoms jw7 20:15 Drug: Rocephin IV 1 grams IV at calculated rate once; Given slow IV push per pharmacy jw7 instructions Route: IV; Rate: calculated rate; Site: right antecubital; 22:10 Follow up: Response: No adverse reaction; IV Status: Completed infusion; IV Intake: [id number] 20:56 Drug: Hydrocodone-Acetaminophen PO (7.5 mg-325 mg) 1 tabs PO once Route: PO; jw7 22:10 Follow up: Response: No adverse reaction; Marked relief of symptoms jw7 20:56 Drug: Ketorolac IVP 15 mg IVP once Route: IVP; Site: right antecubital; jw7 22:09 Follow up: Response: No adverse reaction; Marked relief of symptoms jw7 20:56 Drug: Ondansetron IVP 4 mg IVP once; over 2 minutes Route: IVP; Site: right antecubital;jw7 22:09 Follow up: Response: No adverse reaction; Marked relief of symptoms jw7 Disposition: 18:22 Co-signature as Attending Physician, Jeo Florez MD I reviewed the patient's care rt provided by the Advanced Practice Provider and agree with the diagnosis and treatment plan. Disposition Summary: 02/17/24 20:31 Discharge Ordered Notes: Location: Home sb4 Problem: new sb4 Symptoms: have improved sb4 Condition: Stable sb4 Diagnosis - UTI/ Urinary tract infection, site not specified sb4 Followup: sb4 - With: Emergency Department - When: As needed - Reason: Trouble breathing, Worsening of condition Discharge Instructions: - Discharge Summary Sheet sb4 - Urinary Tract Infection, Adult, [id number] sb4 Forms: - Antibiotic Education sb4 - Patient Portal Instructions sb4 - Leadership Thank You Letter sb4 Prescriptions: - Bactrim DS 800-160 mg Oral Tablet - take 1 tablet ORAL route every 12 hours for 10 days; 20 tablet; Refills: 0, sb4 Product Selection Permitted Signatures: Dispatcher [employer] EDMS Iqra Thomas RN RN jl7 Tere Medrano RN RN jw7 Ml Polanco PA-C PAKaykay sb4 Joe Florez MD MD rt Shira Chavez RN RN cm10 Corrections: (The following items were deleted from the chart) 15:13 15:13 Urine Culture ordered. EDNE EDMS
--- NOTE | 2024-02-17 20:32 | ER ---
Nurse's Notes [facility] Name: Lauren Polanco Age: 34 yrs Sex: Female : 1990 Arrival Date: 02/17/2024 Time: 13:30 Bed 10 Private MD: Diagnosis: UTI/ Urinary tract infection, site not specified Presentation: 02/16 14:27 Chief complaint: Patient states: Painful and frequent urination x approx 1 week, ph difficulty urinating x 24 hours. Coronavirus screen: Vaccine status: Patient reports being unvaccinated. Ebola Screen: No symptoms or risks identified at this time. Initial Sepsis Screen: Does the patient meet any 2 criteria? No. Patient's initial sepsis screen is negative. Does the patient have a suspected source of infection? No. Patient's initial sepsis screen is negative. Risk Assessment: Do you want to hurt yourself or someone else? Patient reports no desire to harm self or others. Onset of symptoms was February 17, 2024. 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 - Infectious Disease History:: Denies. - Social history:: Smoking status: Patient denies any tobacco usage or history of. Screenin:25 [facility] ED Fall Risk Assessment (Adult) History of falling in the last 3 months, jw7 including since admission No falls in past 3 months (0 pts) Confusion or Disorientation No (0 pts) Intoxicated or Sedated No (0 pts) Impaired Gait No (0 pts) Mobility Assist Device Used No (0 pt) Altered Elimination No (0 pt) Score/Fall Risk Level 0 - 2 = Low Risk Oriented to surroundings, Maintained a safe environment, Educated pt \T\ family on fall prevention, incl call for assistance when getting out of bed. Abuse screen: Denies threats or abuse. Denies injuries from another. Nutritional screening: No deficits noted. Tuberculosis screening: No symptoms or risk factors identified. Assessment: 15:23 General: Attempted to straight cath patient and patient did not tolerate well. Provider cm10 made aware.. 19:25 General: Appears in no apparent distress. uncomfortable, Behavior is calm, cooperative, jw7 appropriate for age. Pain: Complains of pain in pelvis Pain does not radiate. Pain currently is 9 out of 10 on a pain scale. Quality of pain is described as burning, sharp, shooting, Pain began gradually, Is continuous. Neuro: Level of Consciousness is awake, alert, obeys commands, Oriented to person, place, time, situation, Appropriate for age. Cardiovascular: Heart tones S1 S2 present Capillary refill < 3 seconds Clubbing of nail beds is absent JVD is absent Patient's skin is warm and dry. Respiratory: Airway is patent Trachea midline Respiratory effort is even, unlabored, Respiratory pattern is regular, symmetrical, Breath sounds are clear bilaterally. GI: Abdomen is flat, non-distended, Bowel sounds present X 4 quads. Abd is soft and non tender X 4 quads. : Parent/caregiver report the patient having burning with urination urinary frequency. EENT: No deficits noted. No signs and/or symptoms were reported regarding the EENT system. Derm: Skin is intact, is healthy with good turgor, Skin is dry, Skin is normal, Skin temperature is warm. Musculoskeletal: Circulation, motion, and sensation intact. Range of motion: intact in all extremities. 20:30 Reassessment: Patient appears in no apparent distress at this time. No changes from jw7 previously documented assessment. Patient and/or family updated on plan of care and expected duration. Pain level reassessed. Patient is alert, oriented x 3, equal unlabored respirations, skin warm/dry/pink. 20:35 General: Discharge pending completion of IV Fluids. jw7 21:30 Reassessment: Patient appears in no apparent distress at this time. No changes from jw7 previously documented assessment. Patient and/or family updated on plan of care and expected duration. Pain level reassessed. Patient is alert, oriented x 3, equal unlabored respirations, skin warm/dry/pink. Vital Signs: 14:27 BP 108 / 59; Pulse 75; Resp 18; Temp 97.8; Pulse Ox 99% ; Height 5 ft. 1 in. ; ph 19:30 BP 108 / 61; Pulse 72; Resp 17 S; Pulse Ox 99% on R/A; jw7 20:30 BP 115 / 62; Pulse 71; Resp 17 S; Pulse Ox 99% on R/A; jw7 21:30 BP 110 / 60; Pulse 69; Resp 16 S; Temp 98.2(O); Pulse Ox 100% on R/A; jw7 ED Course: 13:31 Patient arrived in ED. rg4 13:43 Ml Polanco PA-C is PHCP. sb4 13:43 Joe Florez MD is Attending Physician. sb4 14:32 Triage completed. ph 14:32 Arm band placed on Patient placed in waiting room, Patient notified of wait time. ph 14:49 CBC with Diff Sent. bc6 14:49 CMP Sent. bc6 14:49 Lipase Sent. bc6 14:49 Test, Urine Sent. bc6 14:49 Urinalysis w/ reflexes Sent. bc6 14:49 Initial lab(s) drawn, by me, sent to lab. Inserted saline lock: 20 gauge in left bc6 antecubital area, using aseptic technique. Blood collected. 15:30 CT Abd/Pelvis - IV Contrast Only In Process Unspecified. EDMS 19:25 Patient has correct armband on for positive identification. Bed in low position. Call jw7 light in reach. Side rails up X2. Provided Education on: Use of call light. 19:25 Report received from ZOË Silva. jw7 19:36 Tere Medrano RN is Primary Nurse. jw7 21:30 No provider procedures requiring assistance completed. IV discontinued, intact, jw7 bleeding controlled, No redness/swelling at site. Pressure dressing applied. Administered Medications: 15:15 Drug: NS 0.9% IV 1000 ml IV at 1 bolus Per protocol; 1000 mL bolus Route: IV; Rate: 1 cm10 bolus; Site: right antecubital; 22:10 Follow up: Response: No adverse reaction; IV Status: Completed infusion; IV Intake: jw7 1000ml 20:15 Drug: NS 0.9% IV 1000 ml IV at 1 bolus Per protocol; 1000 mL bolus Route: IV; Rate: 1 jw7 bolus; Site: right antecubital; 22:10 Follow up: Response: No adverse reaction; IV Status: Completed infusion; IV Intake: jw7 1000ml 20:15 Drug: Phenazopyridine PO 200 mg PO once Route: PO; jw7 22:10 Follow up: Response: No adverse reaction; Marked relief of symptoms jw7 20:15 Drug: Rocephin IV 1 grams IV at calculated rate once; Given slow IV push per pharmacy jw7 instructions Route: IV; Rate: calculated rate; Site: right antecubital; 22:10 Follow up: Response: No adverse reaction; IV Status: Completed infusion; IV Intake: [id number] 20:56 Drug: Hydrocodone-Acetaminophen PO (7.5 mg-325 mg) 1 tabs PO once Route: PO; jw7 22:10 Follow up: Response: No adverse reaction; Marked relief of symptoms jw7 20:56 Drug: Ketorolac IVP 15 mg IVP once Route: IVP; Site: right antecubital; jw7 22:09 Follow up: Response: No adverse reaction; Marked relief of symptoms jw7 20:56 Drug: Ondansetron IVP 4 mg IVP once; over 2 minutes Route: IVP; Site: right antecubital;jw7 22:09 Follow up: Response: No adverse reaction; Marked relief of symptoms jw7 Medication: 21:30 VIS not applicable for this client. jw7 Intake: 22:10 IV: 50ml; Total: 50ml. jw7 22:10 IV: 1000ml; Total: 1050ml. jw7 22:10 IV: 1000ml; Total: 2050ml. jw7 Outcome: 20:31 Discharge ordered by . sb4 21:30 Discharged to home via wheelchair, with family, jw7 21:30 Condition: stable 21:30 Discharge instructions given to patient, Instructed on discharge instructions, follow up and referral plans. medication usage, Demonstrated understanding of instructions, follow-up care, medications, Prescriptions given X 1, 21:30 Patient left the ED. jw7 Signatures: Dispatcher [employer] EDAK Maria Isabel Juares RN RN ph Garcia, Rubi rg4 Tere Medrano RN RN jw7 Ml Polanco PA-C PA-C sb4 Charlotte Mortensen Clarissa, RN RN cm10 Corrections: (The following items were deleted from the chart) 22:12 22:11 Patient left the ED. jw7 jw7
[2024-02-17 20:42] LABS: Urine Bacteria <20 /HPF (<20); Urine Bilirubin NEGATIVE (Negative); Urine Blood 2+ (Negative); Urine Clarity Clear (Clear); Urine Color Light-Yellow (Yellow); Urine Culture Reflex Order REFLEXED; Urine Glucose NEGATIVE (Negative); Urine Ketones NEGATIVE (Negative); Urine Micro Reflex YN NO BILL MICROSCOPIC; Urine Nitrite NEGATIVE (Negative); Urine Protein TRACE (Negative); Urine Urobilinogen Normal (Normal); Urine Yeast (Budding) Trace /HPF (None Seen)
[2024-02-17 20:43] LABS: Specific Gravity > 1.030 (1.005-1.030)
[2024-02-17] MEDS ORDERED: KETOROLAC 30 MG/ML INJ ONE (20:49)
[2024-02-17] MEDS ORDERED: HYDROCODONE/APAP 7.5/325 MG TAB ONE (20:49)
[2024-02-17] MEDS ORDERED: ONDANSETRON 4 MG/2 ML VIAL ONE (20:49)
[2024-02-18 04:14] VITALS: BP 110/60; TEMP 98.2; O2SAT 100
== END 2024-02-17 22:11 | disposition home or self-care (01) ==
LOC: ER 13:30
DX: N39.0 Urinary tract infection, site not specified (principal)
CPT/HCPCS: 36415; 74177; 80053; 81001; 81025; 83690; 85025; 87086; 87088; J0696; J2405; J7030; Q9967

== ENCOUNTER 2024-12-26 22:25 | Emergency (ER) | payer SELFPAY ==
[2024-12-26] MEDS ORDERED: IBUPROFEN 400 MG TAB ONE (22:53)
--- NOTE | 2024-12-26 23:57 | EDPHYS ---
Physician Documentation [facility] Name: Lauren Polanco Age: 34 yrs Sex: Female : 1990 Arrival Date: 12/26/2024 Time: 22:25 Bed 12 Private MD: ED Physician Joe Florez HPI: 12/26 22:55 This 34 yrs old Female presents to ER via Wheelchair with complaints of Knee Injury. cp 22:55 The patient presents with an injury, pain, that is acute. The complaints affect the cp right knee. Context: twisting injury while playing with son today. 22:55 Associated signs and symptoms: The patient has no apparent associated signs or cp symptoms. Patient previous injury to right knee but did not see an orthopedist. Patient reports injury to right knee today while playing with son. Reports misstep, causing right knee to twist. Pain worse with flexion of knee. Historical: - Allergies: 22:45 No Known Allergies; br2 - Immunization history:: Adult Immunizations up to date. - Infectious Disease History:: Denies. - Social history:: Smoking status: Reported history of juuling and/or vaping. Patient/guardian denies using alcohol, street drugs. ROS: 23:00 MS/extremity: Positive for pain, tenderness, of the right knee, Negative for decreased cp range of motion, deformity, paresthesias, 23:00 Neck: Negative for pain with movement, pain at rest, cp 23:00 Back: Negative for pain at rest, pain with movement, 23:00 All other systems are negative, Exam: 23:05 Constitutional: The patient appears in no acute distress, alert, awake, well developed, cp well nourished, overweight 23:05 Head/Face: Normocephalic, atraumatic. cp 23:05 Eyes: Periorbital structures: appear normal, Conjunctiva: normal, no exudate, no injection, Sclera: no appreciated abnormality, Lids and lashes: appear normal, bilaterally, 23:05 ENT: External ear(s): are unremarkable, Mouth: Lips: moist, Oral mucosa: moist, Posterior pharynx: Airway: no evidence of obstruction, patent, 23:05 Neck: ROM/movement: is normal, is supple, without pain, no range of motions limitations, 23:05 Cardiovascular: Rate: normal, 23:05 Respiratory: the patient does not display signs of respiratory distress, Respirations: normal, no use of accessory muscles, no retractions, labored breathing, is not present, 23:05 Abdomen/GI: Inspection: abdomen appears normal, 23:05 Back: pain, is absent, ROM is normal, 23:05 Musculoskeletal/extremity: Extremities: noted in the right knee: pain, tenderness along medial side of joint and along medial collateral ligament, ROM: pain with flexion of knee, Perfusion: the extremity is normally perfused throughout, Sensation intact. Vital Signs: 22:43 BP 154 / 68; Pulse 82; Resp 18 S; Temp 98.1(TE); Pulse Ox 100% ; Weight 81.65 kg; br2 Height 5 ft. 1 in. ; Pain 7/10; 23:45 BP 150 / 60; Pulse 80; Resp 20; Pulse Ox 100% ; br2 22:43 Body Mass Index 34.01 (81.65 kg, 154.94 cm) br2 22:43 Pain Scale: Adult br2 MDM: 22:47 Medical Screening Exam initiated cp 23:00 Differential diagnosis: dislocation, closed fracture, tendonitis, meniscus tear, cp ligament injury. 23:57 Data reviewed: vital signs, nurses notes, radiologic studies, plain films. 23:57 I considered the following discharge prescriptions or medication management in the emergency department Medications were administered in the Emergency Department. See MAR. 23:57 Counseling: I had a detailed discussion with the patient and/or guardian regarding the historical points, exam findings, and any diagnostic results supporting the discharge/admit diagnosis, radiology results, the need for outpatient follow up, a orthopedic surgeon, to return to the emergency department if symptoms worsen or persist or if there are any questions or concerns that arise at home. Response to treatment: the patient's symptoms have mildly improved after treatment, and as a result, I will discharge patient. Special discussion: recommend use of knee brace. 12/26 22:50 Order name: XRAY Knee RIGHT 3 view 12/27 00:19 Interpretation: Report reviewed. 12/26 23:41 Order name: Herac[place] wrap-joint cp 12/26 23:41 Order name: Crutches cp Administered Medications: 22:58 Drug: Ibuprofen PO 800 mg PO once Route: PO; br2 23:30 Follow up: Response: No adverse reaction br2 Disposition: 12/28 00:32 Chart complete. cp Disposition Summary: 12/26/24 23:57 Discharge Ordered Notes: Location: Home cp Problem: new cp Symptoms: have improved cp Condition: Stable cp Diagnosis - Pain in right knee cp Followup: cp - With: Caesar Stevens MD - When: 5 - 6 days - Reason: Recheck today's complaints Discharge Instructions: - Discharge Summary Sheet cp - Elastic Bandage and RICE Therapy cp - How to Use a Knee Brace cp - Acute Knee Pain, Adult cp Forms: - Medication Reconciliation Form cp - Antibiotic Education cp - Prescription Opioid Use cp - Patient Portal Instructions cp - Leadership Thank You Letter cp Prescriptions: - Anaprox DS 550 mg Oral Tablet - take 1 tablet ORAL route every 12 hours As needed; 20 tablet; Refills: 0, cp Product Selection Permitted Addendum: 03:33 Co-signature as Attending Physician, Joe Florez MD I reviewed the patient's care r t provided by the Advanced Practice Provider and agree with the diagnosis and treatment plan. Signatures: Dispatcher [employer] EDFL Abelardo Alexander PA PA cp Joe Florez MD MD rt Sophia Faulkner RN RN br2 Corrections: (The following items were deleted from the chart) 12/26 22:47 22:45 Allergies: Macrobid; br2 br2 22:47 22:45 PMHx: Anxiety; br2 br2 22:47 22:45 PMHx: MRSA; br2 br2 12/28 00:25 12/26 23:00 MS/extremity: Positive for pain, tenderness, of the right knee, Negative cp for cp
--- NOTE | 2024-12-26 23:57 | ER ---
Nurse's Notes [facility] Name: Lauren Polanco Age: 34 yrs Sex: Female : 1990 Arrival Date: 12/26/2024 Time: 22:25 Bed 12 Private MD: Diagnosis: Pain in right knee Presentation: 12/26 22:43 Chief complaint: Patient states: C/O RIGHT KNEE PAIN. ACCIDENTAL TWISTING. Coronavirus br2 screen: Client denies travel out of the [place] in the last 14 days. Ebola Screen: Patient denies exposure to infectious person. Initial Sepsis Screen: Does the patient meet any 2 criteria? No. Patient's initial sepsis screen is negative. Does the patient have a suspected source of infection? No. Patient's initial sepsis screen is negative. Risk Assessment: Do you want to hurt yourself or someone else? Patient reports no desire to harm self or others. Onset of symptoms was December 26, 2024 at 21:00. 22:43 Method Of Arrival: Wheelchair br2 22:43 Acuity: YANICK 4 br2 Triage Assessment: 22:45 General: Appears uncomfortable, Behavior is calm, cooperative. Pain: Complains of pain br2 in lateral aspect of right knee Pain currently is 6 out of 10 on a pain scale. Musculoskeletal: Capillary refill < 3 seconds, Range of motion: limited in right knee. Injury Description: TWISTED. Historical: - Allergies: 22:45 No Known Allergies; br2 - Immunization history:: Adult Immunizations up to date. - Infectious Disease History:: Denies. - Social history:: Smoking status: Reported history of juuling and/or vaping. Patient/guardian denies using alcohol, street drugs. Screenin:43 [facility] ED Fall Risk Assessment (Adult) History of falling in the last 3 months, br2 including since admission No falls in past 3 months (0 pts) Confusion or Disorientation No (0 pts) Intoxicated or Sedated No (0 pts) Impaired Gait No (0 pts) Mobility Assist Device Used No (0 pt) Altered Elimination No (0 pt) Score/Fall Risk Level 0 - 2 = Low Risk Oriented to surroundings. Abuse screen: Denies threats or abuse. Denies injuries from another. Nutritional screening: No deficits noted. Tuberculosis screening: No symptoms or risk factors identified. Assessment: 22:43 Reassessment: SEE TRIAGE ASSESSMENT. br2 12/27 00:30 Reassessment: PT WALKED OUT OF ER BEFORE I WAS ABLE TO WRAP HER KNEE OR GIVE HER br2 CRUTCHES. PT LEFT WITHOUT PAPERWORK. Vital Signs: 12/26 22:43 BP 154 / 68; Pulse 82; Resp 18 S; Temp 98.1(TE); Pulse Ox 100% ; Weight 81.65 kg; br2 Height 5 ft. 1 in. ; Pain 7/10; 23:45 BP 150 / 60; Pulse 80; Resp 20; Pulse Ox 100% ; br2 22:43 Body Mass Index 34.01 (81.65 kg, 154.94 cm) br2 22:43 Pain Scale: Adult br2 ED Course: 22:27 Patient arrived in ED. jj6 22:36 Joe Florez MD is Attending Physician. rt 22:36 Abelardo Alexander PA is PHCP. cp 22:39 Joe Florez MD is Attending Physician. rt 22:43 Patient has correct armband on for positive identification. Bed in low position. Call br2 light in reach. Side rails up X 1. Provided Education on: PLAN OF CARE. 22:45 Triage completed. br2 22:45 Arm band placed on right wrist. br2 23:05 XRAY Knee RIGHT 3 view In Process Unspecified. EDMS 23:57 Caesar Stevens MD is Referral Physician. cp 12/27 00:40 No provider procedures requiring assistance completed. Patient did not have IV access br2 during this emergency room visit. 00:42 Sophia Faulkner, ZOË is Primary Nurse. br2 Administered Medications: 12/26 22:58 Drug: Ibuprofen PO 800 mg PO once Route: PO; br2 23:30 Follow up: Response: No adverse reaction br2 Outcome: 23:57 Discharge ordered by MD. cp 12/27 00:40 Discharged to home ambulatory, br2 Condition: improved 00:42 Patient left the ED. br2 Signatures: Dispatcher [employer] EDMS Abelardo Alexander PA PA cp Lilliana Shaikh jj6 Joe Florez MD MD rt Sophia aFulkner, RN RN br2 Corrections: (The following items were deleted from the chart) 12/26 22:47 22:45 Allergies: Macrobid; br2 br2 22:47 22:45 PMHx: Anxiety; br2 br2 22:45 PMHx: MRSA; br2 br2 12/27 01:30 01:28 Reassessment: SEE TRIAGE ASSESSMENT br2 br2 :30 01:29 Reassessment: PT WALKED OUT OF ER BEFORE I WAS ABLE TO WRAP HER KNEE OR GIVE HER br2 CRUTCHES. PT LEFT WITHOUT PAPERWORK br2
--- NOTE | 2024-12-27 00:07 | RAD REPORT ---
EXAM DESCRIPTION: Knee Right 3 View CLINICAL HISTORY: 34 years Female, PAIN COMPARISON: None. IMPRESSION: No fracture or dislocation. Joint spaces are preserved. No joint effusion. Mild infrapatellar swelling. Electronically signed by: Chema Bartlett DO 12/26/2024 11:33 PM CDT RP 9 Due to temporary technical issues with the PACS/TheraSim reporting system, reports are being cassandra d by the in-house radiologist without review as a courtesy to ensure prompt reporting the interpreting radiologist is fully responsible for the content of the report. Transcribed Date/Time: 12/27/2024 12:07 AM
[2024-12-27 02:45] VITALS: BP 154/68; TEMP 98.1; O2SAT 100
== END 2024-12-27 00:42 | disposition home or self-care (01) ==
LOC: ER 22:25
DX: M25.561 Pain in right knee (principal)
CPT/HCPCS: 99282

== ENCOUNTER 2025-04-01 19:17 | Emergency (ER) | payer OTHER ==
[2025-04-01] MEDS ORDERED: KETOROLAC 30 MG/ML INJ ONE (20:53)
[2025-04-01] MEDS ORDERED: HYDROCODONE/APAP 5/325 MG TAB ONE (20:53)
[2025-04-01] MEDS ORDERED: CYCLOBENZAPRINE 10 MG TAB ONE (20:53)
--- NOTE | 2025-04-01 21:45 | RAD REPORT ---
EXAM: XR Knee Right 3 View HISTORY: [facility] R knee pain COMPARISON: None TECHNIQUE: 3 views of the right knee were obtained. FINDINGS: No knee effusion is seen. There is no evidence of acute fracture or dislocation. Mild dege nerative changes are seen. No soft tissue swelling or other soft tissue abnormality is present. IMPRESSION: No evidence of acute osseous abnormality. Mild degenerative changes are seen.
--- NOTE | 2025-04-01 22:09 | EDPHYS ---
Physician Documentation [facility] Name: Lauren Polanco Age: 35 yrs Sex: Female : 1990 Arrival Date: 04/01/2025 Time: 19:17 Bed 10 Private MD: ED Physician Abad Winston HPI: 04/01 19:39 This 35 yrs old Female presents to ER via Unassigned with complaints of Knee sp4 Injury - Right. 04/02 02:45 Patient presents with moderate to severe right knee sprain. Patient reports previous sp4 sprain to the same knee.. 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 - Infectious Disease History:: Denies. - Social history:: Smoking status: Reported history of juuling and/or vaping. - Family history:: not pertinent. ROS: 04/02 02:45 Constitutional: Negative for fever, chills, and weight loss, positive for right knee sp4 pain All other systems are negative, Exam: 02:45 Constitutional: This is a well developed, well nourished patient who is awake, alert, sp4 and in no acute distress. Head/Face: Normocephalic, atraumatic. Eyes: Pupils equal round and reactive to light, extra-ocular motions intact. Lids and lashes normal. Conjunctiva and sclera are not injected. Cornea within normal limits. Periorbital areas with no swelling, redness, or edema. ENT: Nares patent. No nasal discharge, no septal abnormalities noted. Tympanic membranes are normal and external auditory canals are clear. Oropharynx with no redness, swelling, or masses, exudates, or evidence of obstruction, uvula midline. Mucous membranes moist. Neck: Trachea midline, no thyromegaly or masses palpated, and no cervical lymphadenopathy. Supple, full range of motion without nuchal rigidity, or vertebral point tenderness. Chest/axilla: Normal chest wall appearance and motion. Nontender with no deformity. No lesions are appreciated. Cardiovascular: Regular rate and rhythm with a normal S1 and S2. No gallops, murmurs, or rubs. No pulse deficits. Respiratory: Lungs have equal breath sounds bilaterally, clear to auscultation and percussion. No rales, rhonchi or wheezes noted. No increased work of breathing, no retractions or nasal flaring. Abdomen/GI: Soft, with normal bowel sounds. No distension or tympany. No guarding or rebound. No evidence of tenderness throughout. Back: No spinal tenderness. No costovertebral tenderness. Skin: Warm, dry with normal turgor. Normal color with no rashes, no lesions, and no evidence of cellulitis. MS/ Extremity: Pulses equal, no cyanosis. Neurovascular intact. Intact peripheral pulses, right knee tenderness and discomfort. Decreased right knee flexion. No deformity, no significant effusion Neuro: Awake and alert, GCS 15, oriented to person, place, time, and situation. Cranial nerves II-XII grossly intact. Motor strength 5/5 in all extremities. Sensory grossly intact. Psych: Awake, alert, with orientation to person, place and time. Behavior, mood, and affect are within normal limits Vital Signs: 04/01 19:39 BP 97 / 61; Pulse 64; Resp 16; Temp 97.6; Pulse Ox 99% ; Weight 88 kg; Height 5 ft. 2 me1 in. ; Pain 9/10; 19:39 Body Mass Index 35.48 (88.00 kg, 157.48 cm) me1 19:39 Pain Scale: Adult me1 [place] Coma Score: 04/02 02:45 Eye Response: spontaneous(4). Motor Response: obeys commands(6). Verbal Response: sp4 oriented(5). Total: 15. Procedures: 02:47 Splinting: Splint applied to right knee using knee immobilizer, applied by techClair [email or web address] Examined by me, post splint application: neurovascular intact, 2+ distal pulses palpable, brisk capillary refill noted, Patient tolerated well, Crutches provided.. MDM: 04/01 19:49 Medical Screening Exam initiated sp4 22:07 ED course: EXAM: XR Knee Right 3 View HISTORY: [facility] R knee pain COMPARISON: None sp4 TECHNIQUE: 3 views of the right knee were obtained. FINDINGS: No knee effusion is seen. There is no evidence of acute fracture or dislocation. Mild degenerative changes are seen. No soft tissue swelling or other soft tissue abnormality is present. IMPRESSION: No evidence of acute osseous abnormality. Mild degenerative changes are seen. . 04/02 02:47 Differential diagnosis: dislocation, closed fracture, contusion, abrasion, tendonitis. sp4 Data reviewed: vital signs, nurses notes, lab test result(s), UPT: negative radiologic studies, plain films. Consideration of Admission/Observation Escalation of care including admission/observation considered. ED course: Knee immobilizer applied. Patient stable for discharge home with work release for the next 2 weeks.. 04/01 20:24 Order name: Test, Serum; Complete Time: 21:29 sp4 04/01 20:24 Order name: Knee Right 3 View XRAY; Complete Time: 22:00 sp4 04/01 20:23 Order name: O2 Per Protocol; Complete Time: 20:54 sp4 04/01 20:23 Order name: O2 Sat Monitoring; Complete Time: 20:54 sp4 04/01 20:25 Order name: Knee Immobilizer; Complete Time: 21:34 sp4 04/01 20:25 Order name: Crutches; Complete Time: 21:34 sp4 Administered Medications: 04/01 21:12 Drug: HYDROcodone-acetaminophen PO 5 mg-325 mg 2 tabs PO once Route: PO; jb4 22:26 Follow up: Response: No adverse reaction; Marked relief of symptoms; Pain is decreased jb4 21:12 Drug: Ketorolac IM 60 mg IM once Route: IM; Site: right gluteus; jb4 22:26 Follow up: Response: No adverse reaction; Marked relief of symptoms; Pain is decreased jb4 21:12 Drug: Cyclobenzaprine PO 10 mg PO once Route: PO; jb4 22:26 Follow up: Response: No adverse reaction; Marked relief of symptoms jb4 Disposition: 04/02 02:48 Chart complete. sp4 Disposition Summary: 04/01/25 22:08 Discharge Ordered Problem: new sp4 Symptoms: have improved sp4 Condition: Stable sp4 Diagnosis - Acute moderate right knee sprain sp4 Followup: sp4 - With: Elvin Irby MD - When: 7 - 10 days - Reason: Recheck today's complaints Discharge Instructions: - Discharge Summary Sheet sp4 - Knee Sprain, Adult, [id number] sp4 Forms: - Work release form sp4 - Patient Portal Instructions sp4 Prescriptions: - meloxicam 15 mg Oral tablet - take 1 tablet ORAL route daily; 30 tablet; Refills: 0, Product Selection sp4 Permitted - Cyclobenzaprine 10 mg Oral Tablet - take 1 tablet ORAL route every 8 hours As needed; 30 tablet; Refills: 0, sp4 Product Selection Permitted - Tramadol 50 mg Oral tablet - take 1 tablet ORAL route every 8 hours as needed; 30 tablet; Refills: 0, sp4 Product Selection Permitted Signatures: Dispatcher [employer] EDZeferino Campbell, RN RN jb4 Abad Winston MD MD sp4 Mimi Perez RN RN me1 Corrections: (The following items were deleted from the chart) 04/01 20:24 20:24 Knee Right 3 View+RAD.RAD.BRZ ordered. EDAR EDMS 20:58 20:23 Cardiac monitoring ordered. 4 jb4 20:58 20:23 IV Saline Lock ordered. 4 jb4 20:59 20:23 EKG - Nurse/Tech ordered. 4 jb4 20:59 20:23 Labs collected and sent ordered. 4 jb4 21:02 20:23 CBC+H.LAB.BRZ ordered. EDMS EDMS 21:02 20:23 PROTIME (+INR)+COAG.LAB.BRZ ordered. EDMS EDMS 21:03 20:23 BASIC METABOLIC PANEL+C.LAB.BRZ ordered. EDMS EDMS 21:03 20:23 HEPATIC FUNCTION+C.LAB.BRZ ordered. EDMS EDMS 21:03 20:23 MAGNESIUM+C.LAB.BRZ ordered. EDMS EDMS 21:03 20:23 PROBNP+C.LAB.BRZ ordered. EDMS EDMS 21:03 20:23 Troponin High Sensitivity+C.LAB.BRZ ordered. EDMS EDMS 21:03 20:23 AMMONIA+C.LAB.BRZ ordered. EDMS EDMS 21:11 20:24 Head C Spine MPR Wo Con+CT.RAD.BRZ ordered. EDMS EDMS
--- NOTE | 2025-04-01 22:09 | ER ---
Nurse's Notes [facility] Name: Lauren Polanco Age: 35 yrs Sex: Female : 1990 Arrival Date: 04/01/2025 Time: 19:17 Bed 10 Private MD: Diagnosis: Acute moderate right knee sprain Presentation: 04/01 19:39 Chief complaint: Patient states: about 17:30 patient stood up and felt a tightness to me1 right knee and then felt "a tearing sensation". States she did fall in September and hurt her right knee but wasn't seen for it. Pain is 9/10 sitting and worse with movement. Unable to bear weight. Coronavirus screen: Vaccine status: Patient reports being unvaccinated. Ebola Screen: No symptoms or risks identified at this time. Initial Sepsis Screen: Does the patient meet any 2 criteria? No. Patient's initial sepsis screen is negative. Does the patient have a suspected source of infection? No. Patient's initial sepsis screen is negative. Risk Assessment: Do you want to hurt yourself or someone else? Patient reports no desire to harm self or others. Onset of symptoms was April 01, 2025 at 17:30. 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 - Infectious Disease History:: Denies. - Social history:: Smoking status: Reported history of juuling and/or vaping. - Family history:: not pertinent. Screenin:24 [facility] ED Fall Risk Assessment (Adult) History of falling in the last 3 months, jb4 including since admission No falls in past 3 months (0 pts) Confusion or Disorientation No (0 pts) Intoxicated or Sedated No (0 pts) Impaired Gait No (0 pts) Mobility Assist Device Used No (0 pt) Altered Elimination No (0 pt) Score/Fall Risk Level 0 - 2 = Low Risk Oriented to surroundings, Maintained a safe environment. Abuse screen: Denies threats or abuse. Nutritional screening: No deficits noted. Tuberculosis screening: No symptoms or risk factors identified. Assessment: 20:15 General: Appears in no apparent distress. comfortable, Behavior is calm, cooperative, jb4 appropriate for age. Pain: Complains of pain in right knee Pain does not radiate. Pain currently is 9 out of 10 on a pain scale. Neuro: Level of Consciousness is awake, alert, obeys commands, Oriented to person, place, time, situation. Cardiovascular: Patient's skin is warm and dry. Respiratory: Airway is patent Respiratory effort is even, unlabored, Respiratory pattern is regular, symmetrical. Derm: Skin is intact, Skin is pink, warm \\T\\ dry. Musculoskeletal: Circulation, motion, and sensation intact. Range of motion: intact in all extremities. 21:33 Reassessment: Patient appears in no apparent distress at this time. Patient and/or jb4 family updated on plan of care and expected duration. Pain level reassessed. Patient is alert, oriented x 3, equal unlabored respirations, skin warm/dry/pink. 22:24 Reassessment: Patient appears in no apparent distress at this time. Patient and/or jb4 family updated on plan of care and expected duration. Pain level reassessed. Patient is alert, oriented x 3, equal unlabored respirations, skin warm/dry/pink. Vital Signs: 19:39 BP 97 / 61; Pulse 64; Resp 16; Temp 97.6; Pulse Ox 99% ; Weight 88 kg; Height 5 ft. 2 me1 in. ; Pain 9/10; 19:39 Body Mass Index 35.48 (88.00 kg, 157.48 cm) me1 19:39 Pain Scale: Adult me1 A[place] Coma Score: 04/02 02:45 Eye Response: spontaneous(4). Motor Response: obeys commands(6). Verbal Response: sp4 oriented(5). Total: 15. ED Course: 04/01 19:19 Patient arrived in ED. im 19:39 Abad Winston MD is Attending Physician. sp4 19:42 Triage completed. me1 19:42 Arm band placed on Patient placed in waiting room. me1 20:45 Test, Serum Sent. me1 21:15 Knee Right 3 View XRAY In Process Unspecified. EDMS 22:07 Elvin Irby MD is Referral Physician. sp4 22:24 Patient has correct armband on for positive identification. Bed in low position. Call jb4 light in reach. Side rails up X 1. Provided Education on: discharge instructions.. 22:24 No provider procedures requiring assistance completed. Patient did not have IV access jb4 during this emergency room visit. Administered Medications: 21:12 Drug: HYDROcodone-acetaminophen PO 5 mg-325 mg 2 tabs PO once Route: PO; jb4 22:26 Follow up: Response: No adverse reaction; Marked relief of symptoms; Pain is decreased jb4 21:12 Drug: Ketorolac IM 60 mg IM once Route: IM; Site: right gluteus; jb4 22:26 Follow up: Response: No adverse reaction; Marked relief of symptoms; Pain is decreased jb4 21:12 Drug: Cyclobenzaprine PO 10 mg PO once Route: PO; jb4 22:26 Follow up: Response: No adverse reaction; Marked relief of symptoms jb4 Medication: 22:24 VIS not applicable for this client. jb4 Outcome: 22:08 Discharge ordered by . sp4 22:24 Discharged to home via wheelchair, with crutches, with family, jb4 22:24 Condition: stable 22:24 Discharge instructions given to patient, family, Instructed on discharge instructions, follow up and referral plans. no drinking with medication, no driving heavy equipment, medication usage, Demonstrated understanding of instructions, follow-up care, medications, Prescriptions given X 3, 22:26 Patient left the ED. jb4 Signatures: Dispatcher [employer] EDZeferino Campbell, RN ZOË jb4 Abad Winston MD MD sp4 Ginna Juan Michelle RN RN me1
[2025-04-01 23:13] VITALS: BP 97/61; TEMP 97.6; O2SAT 99
== END 2025-04-01 22:26 | disposition home or self-care (01) ==
LOC: ER 19:17
DX: S83.91XA Sprain of unspecified site of right knee, initial encounter (principal)
CPT/HCPCS: 36415; 84703; 96372; 99284

== ENCOUNTER 2025-06-04 23:58 | Emergency (ER) | payer OTHER ==
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
[2025-06-05 01:44] VITALS: BP 133/88; TEMP 98.1; O2SAT 96
== END 2025-06-05 01:39 | disposition home or self-care (01) ==
LOC: ER 23:58
DX: M54.2 Cervicalgia (principal); V49.59XA Passenger injured in collision with other motor vehicles in traffic accident, initial encounter
CPT/HCPCS: 36415; 72125; 84703; 99283

== ENCOUNTER 2025-06-05 12:26 | Emergency (ER) | payer OTHER ==
[2025-06-05] MEDS ORDERED: IBUPROFEN 400 MG TAB ONE (13:35)
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
[2025-06-05 15:51] VITALS: TEMP 98.4
[2025-06-05 15:56] VITALS: BP 112/67; O2SAT 97
== END 2025-06-05 15:31 | disposition home or self-care (01) ==
LOC: ER 12:26
DX: S39.011A Strain of muscle, fascia and tendon of abdomen, initial encounter (principal); S39.012A Strain of muscle, fascia and tendon of lower back, initial encounter; S39.013A Strain of muscle, fascia and tendon of pelvis, initial encounter
CPT/HCPCS: 74176; 81025; 99283